=== PATIENT | female | born 1950 | race Caucasian/White ===

== ENCOUNTER → 2016-09-03 | Outpatient (REF) | payer MEDICAID ==
[~2016-09-03] MED LIST: CELE20TA PO; MOTR200T40 PO; NICO21PAT TD; TRAZ10TA PO; TYLE325C PO; VITMTA PO
[2016-09-03 12:24] LABS: ALBUMIN 3.7 GM/DL (3.2-5.2); ALBUMIN/GLOBULIN RATIO 1.06 (1.00-1.93); ALKALINE PHOSPHATASE 98 U/L (45-117); ALT/SGPT 24 U/L (12-78); AST/SGOT 15 U/L (15-37); BILIRUBIN,DIRECT 0.1 MG/DL (0.0-0.2); BILIRUBIN,TOTAL 0.6 MG/DL (0.2-1.0); CHOLESTEROL LEVEL 250 MG/DL (<200); TOTAL PROTEIN 7.2 GM/DL (6.4-8.2); TRIGLYCERIDES LEVEL 146 MG/DL (<150)
[2016-09-04 09:36] LABS: CONTROL LINE INT CTR LINE PRESENT; HIV SCRN NEGATIVE (NEGATIVE); HIV SCRN1 NEGATIVE (NEGATIVE)
[2016-09-04 09:52] LABS: HEP C VIRUS AB SCREEN MEDICARE < 0.0 INDEX (<0.8)
== END ==
LOC: M SFHCPLAZ 08:04
PROVIDERS: ATTEND Family Medicine
DX: Z11.4 Encounter for screening for human immunodeficiency virus [HIV] (principal); Z13.220 Encounter for screening for lipoid disorders; F10.10 Alcohol abuse, uncomplicated; Z11.59 Encounter for screening for other viral diseases

== ENCOUNTER → 2016-09-04 | Outpatient (CLI) | payer MEDICAID ==
--- NOTE | 2016-09-04 15:17 | REP ---
Clinical: Abnormal thyroid gland. Technique: Real time camara scale and color evaluation using linear high frequency transducer. Findings: The thyroid gland is diffusely heterogeneous. Right lobe measures 4.4 x 1.7 x 1.4 cm and includes few small cysts up to 4 mm as well as three complex nonspecific lower pole nodules measuring 9 mm, 6 mm, and 7 mm maximal diameter each. Left thyroid lobe measures 4.2 x 1.7 x 1.2 cm and includes 8 mm and 6 mm mid pole cysts with peripheral calcification as well as smaller nonspecific simple cysts and 5 mm nonspecific lower pole nodule. Impression: Heterogeneous thyroid gland with nonspecific bilateral nodules and cysts as detailed above. Correlation with thyroid function tests and nuclear medicine imaging may be warranted. Signed by Martin Yeager MD 09/04/2016 03:09 P
== END ==
LOC: M RAD 14:13
PROVIDERS: ATTEND Family Medicine
DX: R94.6 Abnormal results of thyroid function studies (principal)

== ENCOUNTER → 2016-09-06 | Outpatient (REF) | payer MEDICAID | LOC: M SFHCPLAZ 10:04 | PROVIDERS: ATTEND Family Medicine | DX: R93.8 Abnormal findings on diagnostic imaging of other specified body structures (principal); Z53.9 Procedure and treatment not carried out, unspecified reason ==

== ENCOUNTER → 2016-09-06 | Outpatient (CLI) | payer MEDICAID | LOC: M LAB 14:31 | PROVIDERS: ATTEND Family Medicine | DX: R93.8 Abnormal findings on diagnostic imaging of other specified body structures (principal) ==

== ENCOUNTER → 2016-09-10 | Outpatient (REF) | payer MEDICAID ==
[~2016-09-10] MED LIST changes: -MOTR200T40 PO; +MOTR200T44 PO
== END ==
LOC: M SFHCPLAZ 17:15
PROVIDERS: ATTEND Family Medicine
DX: Z12.4 Encounter for screening for malignant neoplasm of cervix (principal)

== ENCOUNTER → 2016-09-18 | Outpatient (CLI) | payer MEDICAID, OTHER ==
--- NOTE | 2016-09-18 17:46 | REP ---
Digital screening mammography with CAD: No comparison study. Findings: There is an asymmetric oval shaped density 11 mm in greatest diameter with smooth margins in the superior and medial quadrant of the left breast. This may be a normal lymph node within the breast but merits further evaluation. Scattered fibroglandular elements are noted which are otherwise symmetric. There are normal appearing lymph nodes in each axilla. No suspicious microcalcification is seen. No architectural distortion or mass lesion is seen elsewhere. Impression: BIRADS category 0 incomplete breast imaging. Asymmetric nodular density in the superior and medial quadrant of the left breast for which diagnostic left breast mammography and focused left breast sonography are recommended. BI-RADS/ACR category 0 mammogram, incomplete. Additional imaging and/or prior images are needed before a final assessment can be assigned. This mammogram was interpreted with the aid of an FDA-approved computer-aided detection system. The patient states she had a clinical breast exam in August 2016. The patient letter being requested is M0.
--- NOTE | 2016-09-20 09:19 | DEXA ---
AP SPINE L1 - L4 1.008 -1.5 0.1 LT FEMUR TOTAL 0.636 -3.0 -1.7 RT FEMUR TOTAL 0.637 -2.9 -1.7 TOTAL BODY TOTAL OTHER DUAL FEMUR FRAX* ASSESSMENT Risk factors: History of fracture (adult). Tobacco user. 10 year probability of fracture Major osteoporotic fracture 27.9 % Hip fracture 1.6 % COMMENTS: There is low bone density of the spine. There is osteoporosis of the hips. FOLLOW-UP: Recommendation for the next bone density exam: 2 years. [place]
== END ==
LOC: M WHC 13:11
PROVIDERS: ATTEND Family Medicine
DX: R92.2 Inconclusive mammogram (principal); M85.88 Other specified disorders of bone density and structure, other site; M81.0 Age-related osteoporosis without current pathological fracture; Z87.81 Personal history of (healed) traumatic fracture; Z72.0 Tobacco use; Z13.820 Encounter for screening for osteoporosis; Z12.31 Encounter for screening mammogram for malignant neoplasm of breast

== ENCOUNTER → 2016-09-20 | Outpatient (CLI) | payer MEDICAID ==
[~2016-09-20] MED LIST changes: +LIDOCAINE 1% MDV 20ML VIAL As Ordered ONE
--- NOTE | 2016-09-20 14:57 | REP ---
ULTRASOUND GUIDED BILATERAL THYROID BIOPSY: The procedure was performed under the direct supervision of Dr. Vargas. The risks and benefits of the procedure were explained to the patient and informed consent was obtained. The right thyroid was addressed first. The right thyroid nodule was localized using ultrasound guidance. The skin was prepped and draped in a sterile fashion. 1% Xylocaine was used as a local anesthetic. Using ultrasound guidance four fine needle aspirations were obtained using 25 gauge needles. The left thyroid was then addressed. The left thyroid nodule was localized using ultrasound guidance. The skin was prepped and draped in a sterile fashion. 1% Xylocaine was used as a local anesthetic. Using ultrasound guidance four fine needle aspirations were obtained using 25 gauge needles. The patient tolerated the procedure well and there were no immediate complications. After the appropriate amount of monitored convalescences the patient was discharged from the department. Reviewed by MARCO Raymond 09/20/2016 03:45 PEdited and Signed by Mandeep Vargas MD 09/20/2016 03:48 P
== END ==
LOC: M RADPRO 10:31
PROVIDERS: ATTEND Family Medicine
DX: E04.1 Nontoxic single thyroid nodule (principal); E78.5 Hyperlipidemia, unspecified; Z79.899 Other long term (current) drug therapy

== ENCOUNTER → 2016-09-27 | Outpatient (CLI) | payer MEDICAID, OTHER ==
[~2016-09-27] MED LIST changes: -LIDOCAINE 1% MDV 20ML VIAL As Ordered ONE
--- NOTE | 2016-09-27 14:02 | REP ---
Digital diagnostic unilateral left breast mammogram and focused left breast sonography: Findings: Screening mammography September 18, 2016 was BIRADS category 0 because of an asymmetric nodular density in the superomedial quadrant for which diagnostic imaging was recommended. Mammographic findings: Magnified focal spot compression CC, MLO and true ML views of the left breast confirm the presence of a 1.1 cm oval shaped well-circumscribed nodule in the superomedial quadrant. This is near a blood vessel and may be a lymph node. No other mammographic finding. Sonographic findings: Focused left breast sonography is performed in the superior medial quadrant from 9 o'clock to 12 o'clock. 10 o'clock, there is a small cyst 4.5 cm from the nipple measuring 0.3 x 0.2 x 0.2 cm. At 11 o'clock there is a 1.0 x 0.5 x 0.8 cm complex cyst 5.4 cm from the nipple. This is felt to account for the mammographic opacity. There are internal echoes and there is no enhanced through transmission thus the lesion does not meet criteria for simple cyst. No internal Doppler flow could be seen. Impression: BIRADS category IV suspicious left breast imaging. Complex hypoechoic lesion seen sonographically corresponding to the mammographic opacity in the superomedial quadrant of the left breast. Ultrasound guided needle biopsy and marker clip placement with post clip placement mammographic views recommended. This mammogram was interpreted with the aid of an FDA-approved computer-aided detection system. The patient states she/he had a clinical breast exam in August 2016. The patient letter being requested is M4. Signed by Mandeep Vargas MD 09/27/2016 07:27 P
== END ==
LOC: M RAD 11:31
PROVIDERS: ATTEND Family Medicine
DX: R92.8 Other abnormal and inconclusive findings on diagnostic imaging of breast (principal)

== ENCOUNTER → 2016-10-10 | Outpatient (CLI) | payer OTHER ==
[~2016-10-10] MED LIST changes: +ASCO25TA PO; +ATOR1TAB18 PO; +CALC600T21 PO; +LIDOCAINE 1% MDV 20ML VIAL As Ordered ONE; +NATU400T PO; +PROL60SO SC; +VITA100037 PO
--- NOTE | 2016-10-10 14:01 | REP ---
POSTBIOPSY MAMMOGRAM LEFT BREAST: Postbiopsy mammogram of the left breast performed. Patient had an ultrasound guided biopsy of a complex nodule in the upper inner left breast. A metallic clip is seen at the site of the nodule and the nodule is no longer visualized. Signed by Marlon Romano MD 10/11/2016 06:27 P
--- NOTE | 2016-10-10 16:59 | REP ---
ULTRASOUND GUIDED LEFT BREAST BIOPSY: The procedure was performed under the direct supervision of Dr. Romano. The patient has a history of a complex hypoechoic lesion in the 11-o'clock position of the left breast seen on previous ultrasound dated 09/27/2016. The risks and benefits of the procedure were explained to the patient and informed consent was obtained. The left breast nodule was localized using ultrasound guidance. The skin was prepped and draped in a sterile fashion. 1% Xylocaine was used as a local anesthetic. Using ultrasound guidance a 13-gauge suction-assisted Mammotome needle was inserted and 5 core biopsy samples were obtained and sent to the lab. A marker clip was placed at the biopsy site. The patient tolerated the procedure well and there were no immediate complications. After the appropriate amount of monitored convalescence the patient was discharged from the department. Reviewed by MARCO Raymond 10/10/2016 05:18 PEdited and Signed by Marlon Romano MD 10/11/2016 06:27 P
== END ==
LOC: M RADPRO 12:31
PROVIDERS: ATTEND Family Medicine
DX: D24.2 Benign neoplasm of left breast (principal)
CPT/HCPCS: 19083; 88305; G0206

== ENCOUNTER → 2016-10-17 | Outpatient (CLI) | payer OTHER ==
[~2016-10-17] VITALS: Ht 160 cm; Wt 63.0 kg
[~2016-10-17] MED LIST changes: -LIDOCAINE 1% MDV 20ML VIAL As Ordered ONE; +LIDOCAINE 2% INJ 100 MG/5 ML SDV (FOR ANES.) As Ordered ONE; +NS 1,000 ML IV SCH; +PROPOFOL 500 MG/50 ML VIAL As Ordered ONE
--- NOTE | 2016-10-17 13:50 | ROOR ---
Patient Name: Hilary Vidal Procedure Date: 10/17/2016 1:06 PM Date of : 1950 Age: 66 Room: [facility] Gender: Female Note Status: Finalized Procedure: Colonoscopy Indications: Screening for colorectal malignant neoplasm Providers: Rich Rangel Jr, MD Referring MD: BLAISE MICHAEL MD Requesting Provider: Medicines: Propofol per Anesthesia Complications: No immediate complications. Procedure: Pre-Anesthesia Assessment: - Prior to the procedure, a History and Physical was performed, and patient medications and allergies were reviewed. The patient is competent. The risks and benefits of the procedure and the sedation options and risks were discussed with the patient. All questions were answered and informed consent was obtained. Patient identification and proposed procedure were verified by the physician and the nurse in the pre-procedure area and in the procedure room. Mental Status Examination: alert and oriented. Airway Examination: normal oropharyngeal airway and neck mobility. Respiratory Examination: clear to auscultation. CV Examination: normal. ASA Grade Assessment: II - A patient with mild systemic disease. After reviewing the risks and benefits, the patient was deemed in satisfactory condition to undergo the procedure. The anesthesia plan was to use moderate sedation / analgesia (conscious sedation). Immediately prior to administration of medications, the patient was re-assessed for adequacy to receive sedatives. The heart rate, respiratory rate, oxygen saturations, blood pressure, adequacy of pulmonary ventilation, and response to care were monitored throughout the procedure. The physical status of the patient was re-assessed after the procedure. The Colonoscope was introduced through the anus and advanced to the cecum, identified by appendiceal orifice and ileocecal valve. The colonoscopy was performed without difficulty. The patient tolerated the procedure well. The quality of the bowel preparation was adequate and good. Findings: The perianal exam findings include non-thrombosed internal hemorrhoids, internal hemorrhoids that prolapse with straining, but spontaneously regress to the resting position (Grade II) and internal hemorrhoids that prolapse with straining, but require manual replacement into the anal canal (Grade III). Many small and large-mouthed diverticula were found in the sigmoid colon. Multiple small and large-mouthed diverticula were found in the ascending colon and cecum. The rectum, descending colon and transverse colon appeared normal. A medium polyp was found in the recto-sigmoid colon. The polyp was removed with a hot snare. Resection and retrieval were complete. Two sessile polyps were found in the cecum. The polyps were medium in size. These polyps were removed with a hot snare. Polyp resection was incomplete, and the resected tissue was partially retrieved. Impression: - Non-thrombosed internal hemorrhoids, internal hemorrhoids that prolapse with straining, but spontaneously regress to the resting position (Grade II) and internal hemorrhoids that prolapse with straining, but require manual replacement into the anal canal (Grade III) found on perianal exam. - Diverticulosis in the sigmoid colon. - Diverticulosis in the ascending colon and in the cecum. - The rectum, descending colon and transverse colon are normal. - One medium polyp at the recto-sigmoid colon, removed with a hot snare. Resected and retrieved. - Two medium polyps in the cecum, removed with a hot snare. Polyp resection was incomplete, and the resected tissue was partially retrieved. Recommendation: - Discharge patient to home (ambulatory). - Return to my office in 1 week. Rich Rangel MD Rich Rangel Jr, MD 10/17/2016 1:50:04 PM This report has been signed electronically. Number of Addenda: 0 Note Initiated On: 10/17/2016 1:06 PM Estimated Blood Loss: Estimated blood loss: none.
[2016-10-17 14:10] VITALS: BP 138/78
== END | disposition home or self-care (01) ==
LOC: M OPP 12:29
PROVIDERS: ATTEND Surgery
DX: Z12.11 Encounter for screening for malignant neoplasm of colon (principal); K64.8 Other hemorrhoids; K64.1 Second degree hemorrhoids; K64.2 Third degree hemorrhoids; K57.30 Diverticulosis of large intestine without perforation or abscess without bleeding; D12.7 Benign neoplasm of rectosigmoid junction; D12.0 Benign neoplasm of cecum; E78.00 Pure hypercholesterolemia, unspecified; M19.90 Unspecified osteoarthritis, unspecified site; F41.9 Anxiety disorder, unspecified; F33.9 Major depressive disorder, recurrent, unspecified; F17.200 Nicotine dependence, unspecified, uncomplicated; F17.228 Nicotine dependence, chewing tobacco, with other nicotine-induced disorders; M81.0 Age-related osteoporosis without current pathological fracture; R06.83 Snoring; Z97.2 Presence of dental prosthetic device (complete) (partial); Z79.899 Other long term (current) drug therapy

== ENCOUNTER → 2016-12-16 | Day surgery (SDC) | payer OTHER ==
[~2016-12-16] VITALS: Ht 160 cm; Wt 66.7 kg
[~2016-12-16] MED LIST changes: +ACETAMINOPHEN 325 MG TAB PO PRN; +AcetaZOLAMIDE 500 MG ER CAP PO ONE; +BSS with VANC/TOB/EPI for EYE CASES IR ONE; +CYCLOPENTOLATE 2% OPHTH SOLN As Ordered ONE; +CYCLOPENTOLATE 2% OPHTH SOLN XX ONE; +D5W/0.2% SODIUM CHLORIDE 250 ML IV SCH; +HEALON DUET (HEALON 10MG/ML 0.55ML & HEALON ENDOCOAT 30MG/ML 0.85ML) As Ordered ONE; +KETOROLAC 0.5% OPHTH SOLN OD ONE; +LIDOCAINE 1% SDV 5 ML VIAL As Ordered ONE; -LIDOCAINE 2% INJ 100 MG/5 ML SDV (FOR ANES.) As Ordered ONE; +LIDOCAINE 4% INJ 5 ML AMP OU ONE; +MIDAZOLAM INJ 2 MG/2 ML VIAL (J2250) As Ordered ONE; +MOXIFLOXACIN IN BSS 0.25MG/0.25ML INTRACAMERAL INJ (OR EYE ONLY)(J2280) As Ordered ONE; -NS 1,000 ML IV SCH; +OFLOXACIN 0.3 % (OCUFLOX) OPTH SOL 5ML As Ordered ONE; +OFLOXACIN 0.3 % (OCUFLOX) OPTH SOL 5ML XX ONE; +PHENYLEPHRINE 2.5% OPHTH SOL 2ML As Ordered ONE; +PHENYLEPHRINE 2.5% OPHTH SOL 2ML XX ONE; +POVIDONE-IODINE 5% OPHTH PREP SOL 30ML As Ordered ONE; +PROPARACAINE 0.5% OPHTH SOL 15ML OD PRN; -PROPOFOL 500 MG/50 ML VIAL As Ordered ONE; +TRIAMCINOLONE PRES FR 40 MG/ML 1ML(TRIESENCE)(OR EYE ONLY)(J3300 PER 1MG) As Ordered ONE; +TRIMETHOBENZAMIDE 300 MG CAP PO PRN; +TROPICAMIDE 1% OPHTH SOLN 2 ML As Ordered ONE; +TROPICAMIDE 1% OPHTH SOLN 2 ML XX ONE; +fentaNYL 100 MCG/2 ML INJECTION (J3010) As Ordered ONE
--- NOTE | 2016-12-16 10:45 | RO ---
DATE OF PROCEDURE: 12/16/2016 PREPROCEDURE DIAGNOSES: Cataract and myosis right eye. POSTPROCEDURE DIAGNOSES: Cataract and myosis right eye. PROCEDURE: Phacoemulsification with Malyugin ring placement for myosis. Intraocular lens (IOL) power used PCB 00 20.5 diopters. SURGEON: Zeyad Avila MD OFFICE MACHINE SERVICER: None. COMPLICATIONS: None. ANESTHESIA: DESCRIPTION OF PROCEDURE: Procedure in detail: The patient was brought to the operating room, laid in supine position. The eye was prepped and draped in a sterile fashion for ophthalmic surgery, and a lid speculum was placed in the right eye. A sideport incision was made, and EndoCoat was injected into the anterior chamber. A temporal clear corneal incision was made with a 2.4 mm keratome, followed by with the placement of the Malyugin ring to dilate the pupil. After this was done, capsulorrhexis was carried out for hydrodissection. Phacoemulsification was then done in a [id number] method within the capsular bag, followed by aspiration of the cortical material. Healon was then placed in the capsular bag and intraocular lens placed within it. The Malyugin ring was then removed with the help of the introducer without any complications. Excess viscoelastic was aspirated. The wound was hydrated, and intracanal moxifloxacin was given, followed by sub-Tenon Kenalog injection. Lid speculum removed. The patient returned to the recovery room in stable condition.
[2016-12-16 11:15] VITALS: BP 152/80
== END | disposition home or self-care (01) ==
LOC: M SDC 08:04
PROVIDERS: ATTEND Ophthalmology
DX: H25.9 Unspecified age-related cataract (principal); H57.03 Miosis; E78.5 Hyperlipidemia, unspecified; E03.9 Hypothyroidism, unspecified; F41.9 Anxiety disorder, unspecified; F17.210 Nicotine dependence, cigarettes, uncomplicated; Z79.899 Other long term (current) drug therapy
CPT/HCPCS: 66982; J2250; J2280; J3010; J3300

== ENCOUNTER → 2017-01-13 | Day surgery (SDC) | payer OTHER ==
[~2017-01-13] VITALS: Ht 160 cm; Wt 66.7 kg
[~2017-01-13] MED LIST changes: +CYCLOPENTOLATE 2% OPHTH SOLN 2ML BTL OS ONE; -CYCLOPENTOLATE 2% OPHTH SOLN As Ordered ONE; -CYCLOPENTOLATE 2% OPHTH SOLN XX ONE; +D5W/0.2% SODIUM CHLORIDE 250 ML IV ONE; -D5W/0.2% SODIUM CHLORIDE 250 ML IV SCH; -KETOROLAC 0.5% OPHTH SOLN OD ONE; +KETOROLAC 0.5% OPHTH SOLN OS ONE; -OFLOXACIN 0.3 % (OCUFLOX) OPTH SOL 5ML As Ordered ONE; +OFLOXACIN 0.3 % (OCUFLOX) OPTH SOL 5ML OS ONE; -OFLOXACIN 0.3 % (OCUFLOX) OPTH SOL 5ML XX ONE; -PHENYLEPHRINE 2.5% OPHTH SOL 2ML As Ordered ONE; +PHENYLEPHRINE 2.5% OPHTH SOL 2ML OS ONE; -PHENYLEPHRINE 2.5% OPHTH SOL 2ML XX ONE; -PROPARACAINE 0.5% OPHTH SOL 15ML OD PRN; +PROPARACAINE 0.5% OPHTH SOL 15ML OS PRN; -TROPICAMIDE 1% OPHTH SOLN 2 ML As Ordered ONE; -TROPICAMIDE 1% OPHTH SOLN 2 ML XX ONE; +TROPICAMIDE 1% OPHTH SOLN 2ML OD ONE
[2017-01-13 11:00] VITALS: BP 116/78
--- NOTE | 2017-01-21 21:53 | RO ---
DATE OF PROCEDURE: 01/13/2017 PREPROCEDURE DIAGNOSIS: Cataract, left eye. POSTPROCEDURE DIAGNOSIS: Cataract, left eye. PROCEDURE: Phacoemulsification with intraocular lens implantation, intraocular lens power was PCB00, 21.5 diopters. SURGEON: Zeyad Avila MD PUMPING STATION SUPERVISOR: ANESTHESIA: DESCRIPTION OF PROCEDURE: The patient was brought to the operating room and laid in supine position, the eye was prepped and draped in a sterile fashion for ophthalmic surgery and a lid speculum was placed in the left eye. Sideport incision was made and EndoCoat was injected into the anterior chamber. Temporal clear corneal incision was then made with a 2.5 mm keratome followed by capsulorrhexis. This was followed by hydrodissection and phacoemulsification in a divide and conquer method. Excess cortical material was then aspirated using irrigation and aspiration cannula. Healon was then placed in the capsular bag followed by placement of the intraocular lens. Excess viscoelastic was aspirated, wound was hydrated, intracameral moxifloxacin was given and sub-Tenon injection of Kenalog was given. The patient returned to the recovery room in stable condition.
== END | disposition home or self-care (01) ==
LOC: M SDC 08:13
PROVIDERS: ATTEND Ophthalmology
DX: H26.9 Unspecified cataract (principal); E03.9 Hypothyroidism, unspecified; E78.5 Hyperlipidemia, unspecified; F41.9 Anxiety disorder, unspecified; F32.9 Major depressive disorder, single episode, unspecified; F17.210 Nicotine dependence, cigarettes, uncomplicated; Z79.899 Other long term (current) drug therapy
CPT/HCPCS: 66984; J2250; J2280; J3010; J3300

== ENCOUNTER 2017-01-17 23:37 | Emergency (ER) | payer OTHER ==
[~2017-01-17] VITALS: Ht 157.5 cm; Wt 64.4 kg
[~2017-01-17 23:37] MED LIST changes: -ACETAMINOPHEN 325 MG TAB PO PRN; -AcetaZOLAMIDE 500 MG ER CAP PO ONE; -BSS with VANC/TOB/EPI for EYE CASES IR ONE; -CYCLOPENTOLATE 2% OPHTH SOLN 2ML BTL OS ONE; -D5W/0.2% SODIUM CHLORIDE 250 ML IV ONE; -HEALON DUET (HEALON 10MG/ML 0.55ML & HEALON ENDOCOAT 30MG/ML 0.85ML) As Ordered ONE; -KETOROLAC 0.5% OPHTH SOLN OS ONE; -LIDOCAINE 1% SDV 5 ML VIAL As Ordered ONE; -LIDOCAINE 4% INJ 5 ML AMP OU ONE; -MIDAZOLAM INJ 2 MG/2 ML VIAL (J2250) As Ordered ONE; -MOXIFLOXACIN IN BSS 0.25MG/0.25ML INTRACAMERAL INJ (OR EYE ONLY)(J2280) As Ordered ONE; -OFLOXACIN 0.3 % (OCUFLOX) OPTH SOL 5ML OS ONE; -PHENYLEPHRINE 2.5% OPHTH SOL 2ML OS ONE; -POVIDONE-IODINE 5% OPHTH PREP SOL 30ML As Ordered ONE; -PROPARACAINE 0.5% OPHTH SOL 15ML OS PRN; -TRIAMCINOLONE PRES FR 40 MG/ML 1ML(TRIESENCE)(OR EYE ONLY)(J3300 PER 1MG) As Ordered ONE; -TRIMETHOBENZAMIDE 300 MG CAP PO PRN; -TROPICAMIDE 1% OPHTH SOLN 2ML OD ONE; -fentaNYL 100 MCG/2 ML INJECTION (J3010) As Ordered ONE
[2017-01-18 00:37] LABS: MEAN CORPUSCULAR HEMOGLOBIN 31.9 pg (27.0-33.0); MEAN CORPUSCULAR HGB CONC 33.3 g/dl (32.0-36.5); MEAN CORPUSCULAR VOLUME 95.8 fl (80.0-96.0); RED CELL DISTRIBUTION WIDTH 12.2 % (11.5-14.5); WHITE BLOOD COUNT 7.8 K/mm3 (4.0-10.0)
[2017-01-18 01:01] LABS: METHADONE URINE NEGATIVE (NEGATIVE)
[2017-01-18 01:15] LABS: ALBUMIN 4.1 GM/DL (3.2-5.2); ALKALINE PHOSPHATASE 87 U/L (45-117); ALT/SGPT 26 U/L (12-78); ANION GAP 9 MEQ/L (8-16); AST/SGOT 18 U/L (15-37); BILIRUBIN,DIRECT 0.2 MG/DL (0.0-0.2); BILIRUBIN,TOTAL 0.4 MG/DL (0.2-1.0); BLOOD UREA NITROGEN 9 MG/DL (7-18); CALCIUM LEVEL 8.2 MG/DL (8.8-10.2); CARBON DIOXIDE LEVEL 26 MEQ/L (21-32); CHLORIDE LEVEL 108 MEQ/L (98-107); CREATININE FOR GFR 0.67 MG/DL (0.55-1.02); GLOMERULAR FILTRATION RATE > 60.0 (>45); GLUCOSE, FASTING 104 MG/DL (80-110); POTASSIUM SERUM 3.9 MEQ/L (3.5-5.1); SODIUM LEVEL 143 MEQ/L (136-145); TOTAL PROTEIN 8.2 GM/DL (6.4-8.2)
[2017-01-18] MEDS ORDERED: TETRACAINE 0.5% OPHTH SOLN 4ML OS ONE (02:30)
[2017-01-18] MEDS ORDERED: FLUORESCEIN OPHTH 1 MG STRIP As Ordered ONE (03:47)
[2017-01-18] MEDS ORDERED: PHENYLEPHRINE 2.5% OPHTH SOL 2ML OU ONE (04:15)
[2017-01-18] MEDS ORDERED: TROPICAMIDE 1% OPHTH SOLN 2ML OU ONE (04:15)
[2017-01-18] MEDS ORDERED: FLUORESCEIN OPHTH 1 MG STRIP OU ONE (04:15)
[2017-01-18] MEDS ORDERED: prednisoLONE ACET 1% OPHTH SUSP 5ML OS SCH (06:00)
[2017-01-18] MEDS ORDERED: TOBRAMYCIN 0.3% OPHTH SOLN 5 ML OS SCH (06:00)
[2017-01-18] MEDS ORDERED: KETOROLAC 0.5% OPHTH SOLN OS SCH (06:00)
[2017-01-18 06:25] VITALS: BP 149/84
== END 2017-01-18 06:27 | disposition home or self-care (01) ==
LOC: M ED 01-18 05:38
DX: H20.019 Primary iridocyclitis, unspecified eye (principal); F10.129 Alcohol abuse with intoxication, unspecified; Z98.49 Cataract extraction status, unspecified eye; F32.9 Major depressive disorder, single episode, unspecified; E78.5 Hyperlipidemia, unspecified; F17.200 Nicotine dependence, unspecified, uncomplicated; Z79.899 Other long term (current) drug therapy

== ENCOUNTER 2018-05-29 21:01 | Emergency (ER) | payer MEDICARE, MEDICAID, OTHER ==
[2018-05-29 21:14] LABS: BEDSIDE GLUCOSE 104 MG/DL (80-115)
[2018-05-29] MEDS: PHENobarbital 30 MG TAB PO (21:25)
== END 2018-05-29 23:08 | disposition home or self-care (01) ==
LOC: M ED 21:01
DX: F10.239 Alcohol dependence with withdrawal, unspecified (principal); F17.200 Nicotine dependence, unspecified, uncomplicated
CPT/HCPCS: 99284

== ENCOUNTER 2019-01-01 14:26 | Emergency (ER) | payer MEDICARE, MEDICAID ==
[~2019-01-01] VITALS: Ht 160 cm; Wt 72.4 kg
[~2019-01-01 14:26] MED LIST changes: -ASCO25TA PO; -ATOR1TAB18 PO; +ATOR80TA59 PO; -CALC600T21 PO; +CALC600T60 PO; -VITA100037 PO; +VITA100067 PO; +VITA1TAB23 PO
[2019-01-01] MEDS ORDERED: CITA20TA6 (14:43)
[2019-01-01] MEDS ORDERED: OYST500T11 PO (14:43)
[2019-01-01] MEDS ORDERED: VENL50TA2 (14:43)
[2019-01-01] MEDS ORDERED: OYST500T12 (14:43)
[2019-01-01 15:25] LABS: HEMATOCRIT 41.7 % (36.0-47.0); HEMOGLOBIN 13.8 g/dl (12.0-15.5); MEAN CORPUSCULAR HEMOGLOBIN 31.7 pg (27.0-33.0); MEAN CORPUSCULAR HGB CONC 33.1 g/dl (32.0-36.5); MEAN CORPUSCULAR VOLUME 95.6 fl (80.0-96.0); PLATELET COUNT, AUTOMATED 297 10^3/uL (150-450); RED BLOOD COUNT 4.36 10^6/uL (4.00-5.40); WHITE BLOOD COUNT 4.8 10^3/uL (4.0-10.0)
[2019-01-01 15:50] LABS: AMPHETAMINES LEVEL URINE NEGATIVE (NEGATIVE); BARBITURATES URINE NEGATIVE (NEGATIVE); BENZODIAZEPINES URINE NEGATIVE (NEGATIVE); CANNABINOIDS URINE NEGATIVE (NEGATIVE); COCAINE METABOLITE URINE NEGATIVE (NEGATIVE); METHADONE URINE NEGATIVE (NEGATIVE); OPIATES URINE NEGATIVE (NEGATIVE); PHENCYCLIDINE URINE NEGATIVE (NEGATIVE)
[2019-01-01 16:01] LABS: ACETAMINOPHEN LEVEL < 2.0 UG/ML (10.0-30.0); ALBUMIN 3.7 GM/DL (3.2-5.2); ALT/SGPT 45 U/L (12-78); BILIRUBIN,DIRECT < 0.1 MG/DL (0.0-0.2); BILIRUBIN,TOTAL 0.3 MG/DL (0.2-1.0); BLOOD UREA NITROGEN 10 MG/DL (7-18); CALCIUM LEVEL 7.8 MG/DL (8.8-10.2); CARBON DIOXIDE LEVEL 31 MEQ/L (21-32); CHLORIDE LEVEL 106 MEQ/L (98-107); CREATININE FOR GFR 0.66 MG/DL (0.55-1.30); ETHYL ALCOHOL (ETHANOL) 0.312 % (0.000-0.010); GLOMERULAR FILTRATION RATE > 60.0 (>45); GLUCOSE, FASTING 96 MG/DL (70-100); POTASSIUM SERUM 4.3 MEQ/L (3.5-5.1); SALICYLATE LEVEL < 1.7 MG/DL (5.0-30.0); SODIUM LEVEL 142 MEQ/L (136-145); TOTAL PROTEIN 7.6 GM/DL (6.4-8.2)
[2019-01-01] MEDS ORDERED: ONDANSETRON 4 MG ORAL DISINTEGRATING TAB (Q0162 PER 1MG) PO ONE (21:30)
[2019-01-02] MEDS ORDERED: METOCLOPRAMIDE 10 MG TAB PO ONE (01:15)
[2019-01-02] MEDS ORDERED: PHENobarbital 30 MG TAB PO ONE (01:15)
[2019-01-02 02:26] VITALS: BP 159/99
== END 2019-01-02 03:22 | disposition home or self-care (01) ==
LOC: M ED 14:26
DX: F10.129 Alcohol abuse with intoxication, unspecified (principal); F33.9 Major depressive disorder, recurrent, unspecified; F41.9 Anxiety disorder, unspecified; Z79.899 Other long term (current) drug therapy; Z87.891 Personal history of nicotine dependence
CPT/HCPCS: 80048; 80076; 80307; 84443; 85027; 99284; G0480; Q0162

== ENCOUNTER 2019-03-29 13:10 | Emergency (ER) | payer MEDICARE, MEDICAID ==
[~2019-03-29] VITALS: Ht 160 cm; Wt 65.9 kg
[~2019-03-29 13:10] MED LIST changes: +CITA20TA6; +OYST500T11 PO; +OYST500T12; +VENL50TA2
[2019-03-29] MEDS ORDERED: LORazepam 2 MG/ML VIAL (J2060) IM STA (13:53)
[2019-03-29] MEDS ORDERED: diphenhydrAMINE INJ 50MG/ML VIAL (J1200) IM ONE (14:00)
[2019-03-29 14:36] LABS: HEMATOCRIT 43.4 % (36.0-47.0); HEMOGLOBIN 14.6 g/dl (12.0-15.5); MEAN CORPUSCULAR HEMOGLOBIN 32.2 pg (27.0-33.0); MEAN CORPUSCULAR HGB CONC 33.6 g/dl (32.0-36.5); MEAN CORPUSCULAR VOLUME 95.6 fl (80.0-96.0); PLATELET COUNT, AUTOMATED 318 10^3/uL (150-450); RED BLOOD COUNT 4.54 10^6/uL (4.00-5.40); WHITE BLOOD COUNT 4.7 10^3/uL (4.0-10.0)
[2019-03-29 14:38] LABS: AMPHETAMINES LEVEL URINE NEGATIVE (NEGATIVE); BARBITURATES URINE NEGATIVE (NEGATIVE); BENZODIAZEPINES URINE NEGATIVE (NEGATIVE); CANNABINOIDS URINE NEGATIVE (NEGATIVE); COCAINE METABOLITE URINE NEGATIVE (NEGATIVE)
[2019-03-29 14:39] LABS: METHADONE URINE NEGATIVE (NEGATIVE); OPIATES URINE NEGATIVE (NEGATIVE); PHENCYCLIDINE URINE NEGATIVE (NEGATIVE)
[2019-03-29 15:03] LABS: HCG, SERUM QUALITATIVE NEGATIVE (NEGATIVE)
[2019-03-29 15:09] LABS: ACETAMINOPHEN LEVEL < 2.0 UG/ML (10.0-30.0); ALBUMIN 3.8 GM/DL (3.2-5.2); ALT/SGPT 35 U/L (12-78); BILIRUBIN,DIRECT 0.1 MG/DL (0.0-0.2); BILIRUBIN,TOTAL 0.4 MG/DL (0.2-1.0); BLOOD UREA NITROGEN 13 MG/DL (7-18); CALCIUM LEVEL 8.9 MG/DL (8.8-10.2); CARBON DIOXIDE LEVEL 28 MEQ/L (21-32); CHLORIDE LEVEL 108 MEQ/L (98-107); CREATININE FOR GFR 0.63 MG/DL (0.55-1.30); ETHYL ALCOHOL (ETHANOL) 0.283 % (0.000-0.010); GLOMERULAR FILTRATION RATE > 60.0 (>45); GLUCOSE, FASTING 80 MG/DL (70-100); POTASSIUM SERUM 4.2 MEQ/L (3.5-5.1); SODIUM LEVEL 142 MEQ/L (136-145); THYROID STIMULATING HORMONE 0.642 uIU/ML (0.358-3.740); TOTAL PROTEIN 7.3 GM/DL (6.4-8.2)
[2019-03-30 00:35] VITALS: BP 158/78
== END 2019-03-30 01:35 | disposition home or self-care (01) ==
LOC: M ED 13:10
DX: F10.129 Alcohol abuse with intoxication, unspecified (principal); F10.10 Alcohol abuse, uncomplicated; I10 Essential (primary) hypertension; Z72.0 Tobacco use; Z79.899 Other long term (current) drug therapy
CPT/HCPCS: 80048; 80076; 80307; 84443; 84703; 85027; 96372; 99284; G0480; J1200; J2060

== ENCOUNTER 2019-05-14 10:38 | Emergency (ER) | payer MEDICARE, MEDICAID ==
[~2019-05-14] VITALS: Ht 160 cm; Wt 68.2 kg
[2019-05-14 11:32] LABS: HEMATOCRIT 44.2 % (36.0-47.0); HEMOGLOBIN 14.9 g/dl (12.0-15.5); MEAN CORPUSCULAR HEMOGLOBIN 32.9 pg (27.0-33.0); MEAN CORPUSCULAR HGB CONC 33.7 g/dl (32.0-36.5); MEAN CORPUSCULAR VOLUME 97.6 fl (80.0-96.0); PLATELET COUNT, AUTOMATED 392 10^3/uL (150-450); RED BLOOD COUNT 4.53 10^6/uL (4.00-5.40); WHITE BLOOD COUNT 5.3 10^3/uL (4.0-10.0)
[2019-05-14 12:01] LABS: AMPHETAMINES LEVEL URINE NEGATIVE (NEGATIVE); BARBITURATES URINE NEGATIVE (NEGATIVE); BENZODIAZEPINES URINE NEGATIVE (NEGATIVE); CANNABINOIDS URINE NEGATIVE (NEGATIVE); COCAINE METABOLITE URINE NEGATIVE (NEGATIVE); METHADONE URINE NEGATIVE (NEGATIVE); OPIATES URINE NEGATIVE (NEGATIVE); PHENCYCLIDINE URINE NEGATIVE (NEGATIVE)
[2019-05-14 12:11] LABS: ACETAMINOPHEN LEVEL < 2.0 UG/ML (10.0-30.0); ALBUMIN 3.7 GM/DL (3.2-5.2); ALT/SGPT 50 U/L (12-78); BILIRUBIN,DIRECT 0.2 MG/DL (0.0-0.2); BILIRUBIN,TOTAL 0.4 MG/DL (0.2-1.0); BLOOD UREA NITROGEN 9 MG/DL (7-18); CALCIUM LEVEL 8.3 MG/DL (8.8-10.2); CARBON DIOXIDE LEVEL 21 MEQ/L (21-32); CHLORIDE LEVEL 103 MEQ/L (98-107); ETHYL ALCOHOL (ETHANOL) 0.298 % (0.000-0.010); GLOMERULAR FILTRATION RATE > 60.0 (>45); GLUCOSE, FASTING 87 MG/DL (70-100); POTASSIUM SERUM 4.2 MEQ/L (3.5-5.1); SALICYLATE LEVEL 5.9 MG/DL (5.0-30.0); SODIUM LEVEL 138 MEQ/L (136-145); THYROID STIMULATING HORMONE 0.864 uIU/ML (0.358-3.740); TOTAL PROTEIN 7.2 GM/DL (6.4-8.2)
[2019-05-14] MEDS ORDERED: OXAZEPAM 15 MG CAP PO ONE ×2 (15:00→20:45)
[2019-05-14] MEDS ORDERED: LORazepam 2 MG/ML VIAL (J2060) IM STA (20:41)
[2019-05-14] MEDS ORDERED: ONDANSETRON 4 MG ORAL DISINTEGRATING TAB (Q0162 PER 1MG) PO ONE (20:45)
[2019-05-14 22:44] VITALS: BP 135/75
== END 2019-05-14 22:51 | disposition home or self-care (01) ==
LOC: M ED 10:38
DX: F10.129 Alcohol abuse with intoxication, unspecified (principal); E07.9 Disorder of thyroid, unspecified; E78.9 Disorder of lipoprotein metabolism, unspecified; Z79.899 Other long term (current) drug therapy; F17.210 Nicotine dependence, cigarettes, uncomplicated
CPT/HCPCS: 36415; 80048; 80076; 80307; 84443; 85027; 96372; 99284; G0480; J2060; Q0162

== ENCOUNTER 2019-06-26 11:54 | Emergency (ER) | payer MEDICARE, MEDICAID ==
[~2019-06-26] VITALS: Ht 157.5 cm; Wt 79.5 kg
[2019-06-26 12:35] LABS: HEMATOCRIT 44.4 % (36.0-47.0); HEMOGLOBIN 14.9 g/dl (12.0-15.5); MEAN CORPUSCULAR HEMOGLOBIN 33.3 pg (27.0-33.0); MEAN CORPUSCULAR HGB CONC 33.6 g/dl (32.0-36.5); MEAN CORPUSCULAR VOLUME 99.1 fl (80.0-96.0); PLATELET COUNT, AUTOMATED 424 10^3/uL (150-450); RED BLOOD COUNT 4.48 10^6/uL (4.00-5.40); WHITE BLOOD COUNT 3.9 10^3/uL (4.0-10.0)
[2019-06-26] MEDS ORDERED: HYDR-3363 PO (13:02)
[2019-06-26 13:22] LABS: ACETAMINOPHEN LEVEL < 2.0 UG/ML (10.0-30.0); ALBUMIN 3.5 GM/DL (3.2-5.2); ALT/SGPT 56 U/L (12-78); BILIRUBIN,DIRECT < 0.1 MG/DL (0.0-0.2); BILIRUBIN,TOTAL 0.2 MG/DL (0.2-1.0); BLOOD UREA NITROGEN 10 MG/DL (7-18); CALCIUM LEVEL 8.3 MG/DL (8.8-10.2); CARBON DIOXIDE LEVEL 27 MEQ/L (21-32); CHLORIDE LEVEL 110 MEQ/L (98-107); CREATININE FOR GFR 0.62 MG/DL (0.55-1.30); ETHYL ALCOHOL (ETHANOL) 0.356 % (0.000-0.010); GLOMERULAR FILTRATION RATE > 60.0 (>45); GLUCOSE, FASTING 97 MG/DL (70-100); POTASSIUM SERUM 3.9 MEQ/L (3.5-5.1); SALICYLATE LEVEL 4.6 MG/DL (5.0-30.0); SODIUM LEVEL 144 MEQ/L (136-145); THYROID STIMULATING HORMONE 0.482 uIU/ML (0.358-3.740); TOTAL PROTEIN 7.1 GM/DL (6.4-8.2)
[2019-06-26] MEDS ORDERED: FOLIC ACID 1 MG TAB PO SCH (15:00)
[2019-06-26] MEDS ORDERED: MULTIVITAMINS/MINERALS THERAP 1 TAB PO SCH (15:00)
[2019-06-26] MEDS: THIAMINE 100 MG TAB PO SCH ×2 (15:13→21:04)
[2019-06-26 16:03] LABS: AMPHETAMINES LEVEL URINE NEGATIVE (NEGATIVE); BARBITURATES URINE NEGATIVE (NEGATIVE); BENZODIAZEPINES URINE NEGATIVE (NEGATIVE); CANNABINOIDS URINE NEGATIVE (NEGATIVE); COCAINE METABOLITE URINE NEGATIVE (NEGATIVE); METHADONE URINE NEGATIVE (NEGATIVE); OPIATES URINE NEGATIVE (NEGATIVE); PHENCYCLIDINE URINE NEGATIVE (NEGATIVE)
[2019-06-26] MEDS: LORazepam 2 MG TAB PO PRN ×2 (16:05→21:01)
[2019-06-26] MEDS ORDERED: hydrOXYzine 25 MG TAB PO ONE (20:45)
[2019-06-26] MEDS ORDERED: THIAMINE 100 MG TAB PO SCH (21:00)
[2019-06-27 06:25] VITALS: BP 179/111
[2019-06-27] MEDS ORDERED: FOLIC ACID 1 MG TAB PO SCH (09:00)
[2019-06-27] MEDS ORDERED: MULTIVITAMINS/MINERALS THERAP 1 TAB PO SCH (09:00)
== END 2019-06-27 06:32 | disposition home or self-care (01) ==
LOC: M ED 11:54
DX: F10.129 Alcohol abuse with intoxication, unspecified (principal); F32.9 Major depressive disorder, single episode, unspecified; E78.00 Pure hypercholesterolemia, unspecified; F17.200 Nicotine dependence, unspecified, uncomplicated; Z79.899 Other long term (current) drug therapy; Z91.011 Allergy to milk products
CPT/HCPCS: 80048; 80076; 80307; 84443; 85027; 99284; G0480

== ENCOUNTER → 2020-02-18 | Outpatient (REF) | payer MEDICARE ==
[~2020-02-18] MED LIST changes: +ASCO250T20 PO; +HYDR-3363 PO; -TRAZ10TA PO; +TRAZ1TAB12 PO; -VITA1TAB23 PO
[2020-02-18 12:18] LABS: HEMATOCRIT 39.5 % (36.0-47.0); HEMOGLOBIN 13.1 g/dl (12.0-15.5); MEAN CORPUSCULAR HEMOGLOBIN 32.6 pg (27.0-33.0); MEAN CORPUSCULAR HGB CONC 33.2 g/dl (32.0-36.5); MEAN CORPUSCULAR VOLUME 98.3 fl (80.0-96.0); PLATELET COUNT, AUTOMATED 428 10^3/uL (150-450); RED BLOOD COUNT 4.02 10^6/uL (4.00-5.40); WHITE BLOOD COUNT 12.8 10^3/uL (4.0-10.0)
[2020-02-18 12:36] LABS: ALBUMIN 3.1 GM/DL (3.2-5.2); ALT/SGPT 97 U/L (12-78); BILIRUBIN,TOTAL 0.7 MG/DL (0.2-1.0); BLOOD UREA NITROGEN 6 MG/DL (7-18); CALCIUM LEVEL 8.6 MG/DL (8.8-10.2); CARBON DIOXIDE LEVEL 27 MEQ/L (21-32); CHLORIDE LEVEL 99 MEQ/L (98-107); CHOLESTEROL LEVEL 165 MG/DL (<200); CHOLESTEROL RISK RATIO 3.666 (<5); CREATININE FOR GFR 0.59 MG/DL (0.55-1.30); GLOMERULAR FILTRATION RATE > 60.0 (>45); GLUCOSE, FASTING 103 MG/DL (70-100); HDL CHOLESTEROL 45 MG/DL (>40); LDL CHOLESTEROL 97 MG/DL (<100); MAGNESIUM LEVEL 1.5 MG/DL (1.8-2.4); NON-HDL-C 120 MG/DL; POTASSIUM SERUM 4.6 MEQ/L (3.5-5.1); SODIUM LEVEL 133 MEQ/L (136-145); TOTAL PROTEIN 6.6 GM/DL (6.4-8.2); TRIGLYCERIDES LEVEL 114 MG/DL (<150)
[2020-02-18 13:57] LABS: HEMOGLOBIN A1c 5.7 %
== END ==
LOC: M SFHCPLAZ 09:01
PROVIDERS: ATTEND Family Medicine
DX: E78.00 Pure hypercholesterolemia, unspecified (principal); Z13.1 Encounter for screening for diabetes mellitus; R03.0 Elevated blood-pressure reading, without diagnosis of hypertension; Z79.899 Other long term (current) drug therapy
CPT/HCPCS: 36415; 80053; 80061; 83036; 83735; 84443; 85027; 90732; G0009; G0463

== ENCOUNTER 2020-04-25 12:37 | Emergency (ER) | payer MEDICARE, MEDICAID ==
[~2020-04-25] VITALS: Ht 160 cm; Wt 63.6 kg
[2020-04-25] MEDS ORDERED: NS 1,000 ML IV SCH (13:27)
[2020-04-25] MEDS ORDERED: PANTOPRAZOLE 40MG VIAL (C9113 PER 1) IV ONE (13:30)
[2020-04-25] MEDS ORDERED: ONDANSETRON 4MG/2ML VIAL IV ONE ×2 (13:30→19:00)
[2020-04-25] MEDS ORDERED: LORazepam 2 MG/ML VIAL IV STA (14:18)
[2020-04-25] MEDS ORDERED: LORazepam 2 MG/ML VIAL As Ordered ONE (14:21)
[2020-04-25] MEDS ORDERED: ISOVUE-370 76% 100ML VIAL As Ordered ONE (14:30)
[2020-04-25 14:31] LABS: BASO % 0.7 % (0.0-1.0); EOS % 0.2 % (0.0-3.0); HEMATOCRIT 35.2 % (36.0-47.0); HEMOGLOBIN 11.6 g/dl (12.0-15.5); LYMPH % 21.6 % (24.0-44.0); MEAN CORPUSCULAR HEMOGLOBIN 31.4 pg (27.0-33.0); MEAN CORPUSCULAR VOLUME 95.1 fl (80.0-96.0); MONO # 0.4 10^3/uL (0.0-0.8); MONO % 8.9 % (0.0-5.0); NEUTROPHILS # 3.1 10^3/uL (1.5-8.5); NEUTROPHILS % 68.2 % (36.0-66.0); PLATELET COUNT, AUTOMATED 160 10^3/uL (150-450); WHITE BLOOD COUNT 4.6 10^3/uL (4.0-10.0)
[2020-04-25 14:53] LABS: ALBUMIN 3.8 GM/DL (3.2-5.2); ALT/SGPT 155 U/L (12-78); BILIRUBIN,DIRECT 0.9 MG/DL (0.0-0.2); BILIRUBIN,TOTAL 1.4 MG/DL (0.2-1.0); BLOOD UREA NITROGEN 11 MG/DL (7-18); CALCIUM LEVEL 8.3 MG/DL (8.8-10.2); CARBON DIOXIDE LEVEL 12 MEQ/L (21-32); CHLORIDE LEVEL 98 MEQ/L (98-107); ETHYL ALCOHOL (ETHANOL) 0.193 % (0.000-0.010); GLOMERULAR FILTRATION RATE > 60.0 (>45); GLUCOSE, FASTING 78 MG/DL (70-100); LIPASE 941 U/L (73-393); POTASSIUM SERUM 3.2 MEQ/L (3.5-5.1); SODIUM LEVEL 133 MEQ/L (136-145); TOTAL PROTEIN 7.6 GM/DL (6.4-8.2)
[2020-04-25 15:01] LABS: INR 1.04; PROTHROMBIN TIME 13.8 SECONDS (11.8-14.0)
[2020-04-25 15:02] LABS: PARTIAL THROMBOPLASTIN TIME 25.4 SECONDS (25.0-38.4)
[2020-04-25] MEDS ORDERED: PANTOPRAZOLE SODIUM 40 MG in D5W 50 ML IV SCH (15:30)
[2020-04-25] MEDS ORDERED: POTASSIUM CHLORIDE 10% LIQ 20 MEQ/15 ML UDC PO ONE (15:30)
[2020-04-25] MEDS ORDERED: OCTREOTIDE ACETATE 100MCG/ML VIAL (J2354 PER 25MCG) IV ONE (19:30)
[2020-04-25 20:42] VITALS: BP 138/75
[2020-04-25] MEDS ORDERED: OCTREOTIDE ACETATE 1,200 MCG in NS 238.8 ML IV SCH (21:00)
--- NOTE | 2020-05-23 13:49 | REP ---
CT OF THE ABDOMEN AND PELVIS WITH CONTRAST DATE/TIME: 04/25/2020 at 2:32 p.m. CLINICAL: Generalized abdominal pain and hematemesis. TECHNIQUE: Axial contrast-enhanced images from the lung base to the pubic symphysis using 100 mL of Isovue 370 intravenous contrast material with coronal and sagittal reformations. COMPARISON: None. FINDINGS: Lung bases demonstrate chronic changes. Marked fatty infiltration to the liver noted without focal hepatic lesion. Spleen, pancreas, gallbladder, bilateral adrenal glands and kidneys are essentially normal. The enteric system is without obstruction or definite acute inflammatory process; however, a mild colitis cannot be excluded. Sigmoid diverticula noted without acute diverticulitis. Pelvis demonstrates normal bladder and enlarged uterus with significant myomatous changes along with 2.5 cm left ovarian cyst. No pelvic fluid or ascites. No free air. No adenopathy, atherosclerotic changes to the aorta and vasculature without aneurysm or dissection. Musculoskeletal structures demonstrate age-related changes without acute osseous abnormality. IMPRESSION: * Marked hepatosteatosis. * Cannot exclude a very mild colitis. * Enlarged significant myomatous changes to the uterus and 2.5 cm left ovarian cyst. * No further acute abdominopelvic pathology appreciated. No ascites. No focal inflammatory stranding. No adenopathy. MTDD
--- NOTE | 2020-05-23 13:50 | REP ---
CERVICAL SPINE CT WITHOUT CONTRAST CLINICAL: Trauma. TECHNIQUE: Axial images from the skull base to the thoracic inlet with coronal and sagittal reformations. COMPARISON: 08/09/2016 FINDINGS: Chronic reversal of normal lordosis along with advanced multilevel degenerative changes are again noted and similar to prior examination. No acute fracture/compression injury or acute subluxation. Posterior elements and spinous processes are intact. Spinal canal is patent. Paravertebral soft tissues are within normal limits. IMPRESSION: Advanced chronic degenerative spondylosis and reversal of normal lordosis. No acute fracture/compression injury or subluxation. MTDD
--- NOTE | 2020-05-23 13:50 | REP ---
NONCONTRAST HEAD CT: CLINICAL: Trauma. TECHNIQUE: Axial images from the skull base to the vertex with coronal reformations. FINDINGS: Age related atrophy and microvascular ischemic changes noted. The ventricles, sulci and cisterns are symmetric and normal for age. Romano-white differentiation is maintained. No acute intracranial hemorrhage, mass or mass effect. No extra- axial fluid collection. The calvarium is intact. The paranasal sinuses and mastoid air cells are clear. IMPRESSION: Age related changes. No acute intracranial pathology or trauma/injury. MTDD
== END 2020-04-25 20:45 | disposition short-term general hospital (02) ==
LOC: M ED 12:37
DX: K92.2 Gastrointestinal hemorrhage, unspecified (principal); F10.10 Alcohol abuse, uncomplicated; F33.9 Major depressive disorder, recurrent, unspecified; Z79.899 Other long term (current) drug therapy; Z91.011 Allergy to milk products; F17.210 Nicotine dependence, cigarettes, uncomplicated
CPT/HCPCS: 70450; 72125; 74177; 80047; 80048; 80076; 83690; 85025; 85610; 85730; 86850; 86900; 86901; 93041; 94760; 99285; C9113; G0480; J2060; J2354; J2405; Q9967

== ENCOUNTER → 2020-06-16 | Outpatient (CLI) | payer MEDICARE, MEDICAID ==
--- NOTE | 2020-06-16 12:31 | REP ---
INDICATION: CIGARETTE NICOTINE DEPENDENCE COMPARISON: None. TECHNIQUE: Axial noncontrast images from the thoracic inlet to the upper abdomen using low-dose lung screening technique (LDCT). FINDINGS: Emphysematous changes are appreciated with mild bronchiectasis and minimal primarily right-sided scarring which may be related to prior trauma given the multiple healed right rib fractures. No consolidation or suspicious nodule/mass lesion is appreciated. No effusion. No pneumothorax. Cardiomegaly with primarily left atrial and left ventricle enlargement is suggested. IMPRESSION: 1. Chronic emphysematous changes and primarily right sided posttraumatic scarring suggested. 2. Lung-RADS category 1. No suspicious nodule or mass. Management recommendations include annual low-dose surveillance. 3. Cardiomegaly with primarily left atrial and left ventricular enlargement suggested. <Electronically signed by Martin Yeager > 06/16/20 [id number]
== END ==
LOC: M RAD 10:13
PROVIDERS: ATTEND Family Medicine
DX: Z12.2 Encounter for screening for malignant neoplasm of respiratory organs (principal); F17.210 Nicotine dependence, cigarettes, uncomplicated

== ENCOUNTER → 2020-08-30 | Outpatient (REF) | payer MEDICARE ==
[2020-08-30 14:34] LABS: FREE T4 0.97 NG/DL (0.76-1.46); PERCENT SATURATION 5.7 % (13.2-45.0); THYROID STIMULATING HORMONE 1.87 uIU/ML (0.358-3.740)
[2020-08-31 20:12] LABS: TESTOSTERONE FREE (DIRECT) 1.2 pg/mL (0.0-4.2); TRANSFERRIN 453 mg/dL (192-364)
== END ==
LOC: M SFHCPLAZ 09:18
PROVIDERS: ATTEND Family Medicine
DX: L65.9 Nonscarring hair loss, unspecified (principal)
CPT/HCPCS: 36415; 84402; 84403; 84439; 84443; 84466; G0463

== ENCOUNTER → 2020-09-04 | Outpatient (CLI) | payer MEDICARE ==
[2020-09-04 15:14] LABS: BLOOD UREA NITROGEN 10 MG/DL (7-18); CALCIUM LEVEL 9.2 MG/DL (8.8-10.2); CARBON DIOXIDE LEVEL 26 MEQ/L (21-32); CHLORIDE LEVEL 104 MEQ/L (98-107); CREATININE FOR GFR 0.64 MG/DL (0.55-1.30); GLOMERULAR FILTRATION RATE > 60.0 (>45); GLUCOSE, FASTING 89 MG/DL (70-100); SODIUM LEVEL 136 MEQ/L (136-145)
== END ==
LOC: M PLALAB 11:01
PROVIDERS: ATTEND Family Medicine
DX: M81.0 Age-related osteoporosis without current pathological fracture (principal)

== ENCOUNTER 2020-12-05 14:31 | Emergency (ER) | payer MEDICARE, MEDICAID ==
[~2020-12-05] VITALS: Ht 160 cm; Wt 73.2 kg
[~2020-12-05 14:31] MED LIST changes: +FOLIC ACID 1 MG TAB PO SCH; +MULTIVITAMINS/MINERALS THERAP 1 TAB PO SCH; +THIAMINE 100 MG TAB PO SCH
[2020-12-05] MEDS ORDERED: MIRTAZAPINE (14:45)
[2020-12-05] MEDS ORDERED: BUSP10TA (14:45)
[2020-12-05] MEDS ORDERED: CITA20TA7 (14:45)
[2020-12-05] MEDS ORDERED: LORazepam 2 MG TAB PO PRN (15:00)
[2020-12-05 15:25] LABS: HEMATOCRIT 43.3 % (36.0-47.0); HEMOGLOBIN 14.8 g/dl (12.0-15.5); MEAN CORPUSCULAR HEMOGLOBIN 33.1 pg (27.0-33.0); MEAN CORPUSCULAR HGB CONC 34.2 g/dl (32.0-36.5); MEAN CORPUSCULAR VOLUME 96.9 fl (80.0-96.0); PLATELET COUNT, AUTOMATED 214 10^3/uL (150-450); RED BLOOD COUNT 4.47 10^6/uL (4.00-5.40); WHITE BLOOD COUNT 5.6 10^3/uL (4.0-10.0)
[2020-12-05 16:03] LABS: AMPHETAMINES LEVEL URINE NEGATIVE (NEGATIVE); BARBITURATES URINE NEGATIVE (NEGATIVE); BENZODIAZEPINES URINE NEGATIVE (NEGATIVE); CANNABINOIDS URINE NEGATIVE (NEGATIVE); COCAINE METABOLITE URINE NEGATIVE (NEGATIVE); METHADONE URINE NEGATIVE (NEGATIVE); OPIATES URINE NEGATIVE (NEGATIVE); PHENCYCLIDINE URINE NEGATIVE (NEGATIVE)
[2020-12-05 16:07] LABS: BLOOD UREA NITROGEN 7 MG/DL (7-18); CALCIUM LEVEL 8.3 MG/DL (8.8-10.2); CARBON DIOXIDE LEVEL 24 MEQ/L (21-32); CHLORIDE LEVEL 100 MEQ/L (98-107); CREATININE FOR GFR 0.51 MG/DL (0.55-1.30); GLOMERULAR FILTRATION RATE > 60.0 (>45); GLUCOSE, FASTING 95 MG/DL (70-100); SODIUM LEVEL 139 MEQ/L (136-145)
[2020-12-05 16:08] LABS: ACETAMINOPHEN LEVEL < 2.0 UG/ML (10.0-30.0); ALBUMIN 3.6 GM/DL (3.2-5.2); ALT/SGPT 75 U/L (12-78); BILIRUBIN,DIRECT 0.1 MG/DL (0.0-0.2); BILIRUBIN,TOTAL 0.4 MG/DL (0.2-1.0); ETHYL ALCOHOL (ETHANOL) 0.261 % (0.000-0.010); SALICYLATE LEVEL 4.3 MG/DL (5.0-30.0); TOTAL PROTEIN 7.2 GM/DL (6.4-8.2)
[2020-12-05] MEDS ORDERED: ONDANSETRON 4 MG ORAL DISINTEGRATING TAB PO ONE (16:55)
[2020-12-05 18:01] VITALS: BP 127/62
[2020-12-05] MEDS ORDERED: THIAMINE 100 MG TAB PO SCH (21:00)
[2020-12-06] MEDS ORDERED: FOLIC ACID 1 MG TAB PO SCH (09:00)
[2020-12-06] MEDS ORDERED: MULTIVITAMINS/MINERALS THERAP 1 TAB PO SCH (09:00)
== END 2020-12-05 18:41 | disposition short-term general hospital (02) ==
LOC: M ED 14:31
DX: F10.10 Alcohol abuse, uncomplicated (principal); E78.5 Hyperlipidemia, unspecified; F17.200 Nicotine dependence, unspecified, uncomplicated; Z91.011 Allergy to milk products
CPT/HCPCS: 80048; 80076; 80143; 80307; 82077; 84443; 85027; 87798; 99285; Q0162

== ENCOUNTER → 2021-05-04 | Outpatient (REF) | payer MEDICARE, MEDICAID ==
[~2021-05-04] MED LIST changes: +BUSP10TA; +CITA20TA7; -FOLIC ACID 1 MG TAB PO SCH; +MIRTAZAPINE; -MULTIVITAMINS/MINERALS THERAP 1 TAB PO SCH; -THIAMINE 100 MG TAB PO SCH
== END ==
LOC: M SFHCPLAZ 16:55
PROVIDERS: ATTEND Physician Assistant
DX: R10.84 Generalized abdominal pain (principal); R14.0 Abdominal distension (gaseous); R19.7 Diarrhea, unspecified
CPT/HCPCS: 36415; 80053; 83690; 85025; 85652; 86140; 87505; G0463

== ENCOUNTER → 2021-05-04 | Outpatient (CLI) | payer MEDICARE, MEDICAID ==
[2021-05-04 15:37] LABS: BASO # 0.1 10^3/uL (0.0-0.2); BASO % 0.7 % (0.0-1.0); EOS # 0.1 10^3/uL (0.0-0.5); EOS % 0.9 % (0.0-3.0); HEMOGLOBIN 13.7 g/dl (12.0-15.5); LYMPH # 2.2 10^3/uL (1.5-5.0); LYMPH % 15.2 % (24.0-44.0); MEAN CORPUSCULAR HEMOGLOBIN 34.3 pg (27.0-33.0); MEAN CORPUSCULAR HGB CONC 33.4 g/dl (32.0-36.5); MEAN CORPUSCULAR VOLUME 102.8 fl (80.0-96.0); MONO # 1.1 10^3/uL (0.0-0.8); MONO % 7.9 % (2.0-8.0); NEUTROPHILS # 10.5 10^3/uL (1.5-8.5); NEUTROPHILS % 74.7 % (36.0-66.0); PLATELET COUNT, AUTOMATED 407 10^3/uL (150-450); RED BLOOD COUNT 3.99 10^6/uL (4.00-5.40); WHITE BLOOD COUNT 14.1 10^3/uL (4.0-10.0)
[2021-05-04 16:02] LABS: ALT/SGPT 67 U/L (12-78); BILIRUBIN,TOTAL 1.1 MG/DL (0.2-1.0); BLOOD UREA NITROGEN 6 MG/DL (7-18); C REACTIVE PROTEIN QUANTITATIV 4.93 MG/DL (0.00-0.30); CALCIUM LEVEL 8.6 MG/DL (8.8-10.2); CARBON DIOXIDE LEVEL 25 MEQ/L (21-32); CHLORIDE LEVEL 102 MEQ/L (98-107); CREATININE FOR GFR 0.59 MG/DL (0.55-1.30); GLOMERULAR FILTRATION RATE > 60.0 (>45); GLUCOSE, FASTING 103 MG/DL (70-100); LIPASE 117 U/L (73-393); POTASSIUM SERUM 3.9 MEQ/L (3.5-5.1); SODIUM LEVEL 135 MEQ/L (136-145)
[2021-05-04 16:04] LABS: ERYTHROCYTE SEDIMENTATION RATE 48 mm/hr (0-30)
== END ==
LOC: M PLALAB 12:45
PROVIDERS: ATTEND Physician Assistant
DX: R10.84 Generalized abdominal pain (principal); R14.0 Abdominal distension (gaseous); K62.89 Other specified diseases of anus and rectum; R19.7 Diarrhea, unspecified

== ENCOUNTER → 2021-05-07 | Outpatient (CLI) | payer MEDICARE, MEDICAID ==
[~2021-05-07] MED LIST changes: +GASTROGRAFIN SOLUTION 30ML (Q9963) As Ordered ONE; +ISOVUE-370 76% 100ML VIAL As Ordered ONE
--- NOTE | 2021-05-07 11:37 | REP ---
INDICATION: ABD PAIN ABD BLOATING. COMPARISON: 04/25/2020 TECHNIQUE: Standard helical technique after the intravenous administration of 100 cc Isovue 370 and oral bowel preparatory contrast administration. FINDINGS: There is no significant change in appearance of the lung bases. The liver and spleen are within normal limits. Fatty infiltration seen previously has resolved. The gallbladder, pancreas, adrenal glands, and kidneys are within normal limits. The abdominal aorta and para-aortic regions are within normal limits. There is no evidence of free fluid or free air. There is colonic diverticulosis status quo. The dixon of the cecum may be mildly edematous, however, there is no evidence of fatty infiltration. There is a fatty density within the ileal cecal valve region possibly secondary to an ileocecal valve lipoma. There is no evidence of intestinal obstruction. Once again, there are mixed enhancing masses in the uterus consistent with myomatous change status quo. No adenopathy has developed. There is no significant change in appearance of the osseous structures. IMPRESSION: 1. There are some changes in the cecum which suggest chronic inflammatory changes. There is no fatty infiltration seen today that would suggest an acute inflammatory process. There is unchanged appearing diverticulosis. 2. Fatty infiltration of the liver seen previously has resolved. 3. Chronic uterine myomatous changes appear stable. 4. Other findings as described above. <Electronically signed by Jagdish Vo > 05/07/21 [id number]
== END ==
LOC: M RAD 09:03
PROVIDERS: ATTEND Physician Assistant
DX: R10.84 Generalized abdominal pain (principal); R14.0 Abdominal distension (gaseous); R19.7 Diarrhea, unspecified; D25.9 Leiomyoma of uterus, unspecified; K57.90 Diverticulosis of intestine, part unspecified, without perforation or abscess without bleeding
CPT/HCPCS: 74177; Q9963; Q9967

== ENCOUNTER → 2021-05-09 | Outpatient (CLI) | payer MEDICARE, MEDICAID ==
[~2021-05-09] MED LIST changes: -GASTROGRAFIN SOLUTION 30ML (Q9963) As Ordered ONE; -ISOVUE-370 76% 100ML VIAL As Ordered ONE
[2021-05-09 13:33] LABS: BASO # 0.1 10^3/uL (0.0-0.2); BASO % 0.7 % (0.0-1.0); EOS # 0.1 10^3/uL (0.0-0.5); EOS % 0.8 % (0.0-3.0); HEMATOCRIT 40.9 % (36.0-47.0); HEMOGLOBIN 13.9 g/dl (12.0-15.5); LYMPH # 1.8 10^3/uL (1.5-5.0); MEAN CORPUSCULAR HEMOGLOBIN 34.6 pg (27.0-33.0); MEAN CORPUSCULAR VOLUME 101.7 fl (80.0-96.0); MONO # 1.2 10^3/uL (0.0-0.8); MONO % 7.7 % (2.0-8.0); NEUTROPHILS # 12.6 10^3/uL (1.5-8.5); NEUTROPHILS % 79.2 % (36.0-66.0); PLATELET COUNT, AUTOMATED 473 10^3/uL (150-450); RED BLOOD COUNT 4.02 10^6/uL (4.00-5.40); WHITE BLOOD COUNT 15.9 10^3/uL (4.0-10.0)
[2021-05-09 14:16] LABS: ALT/SGPT 54 U/L (12-78); BILIRUBIN,TOTAL 0.9 MG/DL (0.2-1.0); BLOOD UREA NITROGEN 5 MG/DL (7-18); CALCIUM LEVEL 8.5 MG/DL (8.8-10.2); CARBON DIOXIDE LEVEL 26 MEQ/L (21-32); CHLORIDE LEVEL 98 MEQ/L (98-107); GLOMERULAR FILTRATION RATE > 60.0 (>45); GLUCOSE, FASTING 96 MG/DL (70-100); IRON (FE) 72 UG/DL (50-170); POTASSIUM SERUM 4.1 MEQ/L (3.5-5.1); SODIUM LEVEL 135 MEQ/L (136-145); TOTAL PROTEIN 6.7 GM/DL (6.4-8.2)
[2021-05-09 14:17] LABS: FERRITIN 109 NG/ML (8-252); PERCENT SATURATION 24.7 % (13.2-45.0); TOTAL IRON BINDING CAPACITY 291 UG/DL (250-450)
[2021-05-11 03:07] LABS: ANTI-MITOCHONDRIAL ANTIBODY <20.0 Units (0.0-20.0); ANTINUCLEAR ANTIBODIES DIRECT Negative (Negative)
== END ==
LOC: M PLALAB 09:33
PROVIDERS: ATTEND Physician Assistant
DX: R14.0 Abdominal distension (gaseous) (principal); R10.84 Generalized abdominal pain; R19.7 Diarrhea, unspecified; R89.9 Unspecified abnormal finding in specimens from other organs, systems and tissues

== ENCOUNTER 2021-06-01 12:27 | Inpatient (IN) | payer MEDICARE, MEDICAID ==
[~2021-06-01] VITALS: Ht 160 cm; Wt 75.5 kg
[~2021-06-01 12:27] MED LIST changes: -BUSP10TA; +BUSP10TA PO; -CITA20TA7; +CITA20TA7 PO
[2021-06-01] MEDS ORDERED: ACETAMINOPHEN TAB 650MG DOSE (2X325MG) PO ONE (13:05)
[2021-06-01] MEDS ORDERED: NS 1,000 ML IV ONE (13:05)
[2021-06-01 13:59] LABS: BASO # 0.1 10^3/uL (0.0-0.2); BASO % 0.5 % (0.0-1.0); EOS # 0.1 10^3/uL (0.0-0.5); EOS % 0.7 % (0.0-3.0); HEMATOCRIT 35.1 % (36.0-47.0); HEMOGLOBIN 12.3 g/dl (12.0-15.5); LYMPH # 2.5 10^3/uL (1.5-5.0); LYMPH % 12.5 % (24.0-44.0); MEAN CORPUSCULAR HEMOGLOBIN 34.4 pg (27.0-33.0); MONO # 1.2 10^3/uL (0.0-0.8); MONO % 6.3 % (2.0-8.0); NEUTROPHILS # 15.7 10^3/uL (1.5-8.5); NEUTROPHILS % 79.4 % (36.0-66.0); PLATELET COUNT, AUTOMATED 506 10^3/uL (150-450); RED BLOOD COUNT 3.58 10^6/uL (4.00-5.40); WHITE BLOOD COUNT 19.8 10^3/uL (4.0-10.0)
[2021-06-01 14:40] LABS: ALBUMIN 2.2 GM/DL (3.2-5.2); ALT/SGPT 35 U/L (12-78); BILIRUBIN,DIRECT 0.4 MG/DL (0.0-0.2); BILIRUBIN,TOTAL 0.7 MG/DL (0.2-1.0); BLOOD UREA NITROGEN 6 MG/DL (7-18); CALCIUM LEVEL 7.8 MG/DL (8.8-10.2); CARBON DIOXIDE LEVEL 28 MEQ/L (21-32); CHLORIDE LEVEL 92 MEQ/L (98-107); CREATININE FOR GFR 0.64 MG/DL (0.55-1.30); GLOMERULAR FILTRATION RATE > 60.0 (>45); GLUCOSE, FASTING 99 MG/DL (70-100); LIPASE 92 U/L (73-393); POTASSIUM SERUM 2.8 MEQ/L (3.5-5.1); SODIUM LEVEL 130 MEQ/L (136-145); TOTAL PROTEIN 5.8 GM/DL (6.4-8.2)
[2021-06-01] MEDS ORDERED: KCL 10MEQ/100ML SWI (KRUN) 10 MEQ in IV 1 EA IV ONE ×3 (15:00→20:00)
[2021-06-01] MEDS ORDERED: POTASSIUM CHLORIDE 10MEQ SR TABLET PO ONE (15:00)
[2021-06-01] MEDS: GASTROGRAFIN SOLUTION 30ML PO SCH ×2 (15:19→16:06)
[2021-06-01] MEDS ORDERED: ISOVUE-370 76% 100ML VIAL As Ordered ONE (16:23)
--- NOTE | 2021-06-01 17:07 | REP ---
INDICATION: gen abd pain, diarrhea. COMPARISON: 05/07/2021 TECHNIQUE: Standard helical technique after the intravenous administration of 100 cc Isovue 370 IV and oral bowel preparatory contrast administration. FINDINGS: There is no significant change in the lung bases. There is a small to moderate amount of ascites which has developed since the last exam. The liver, gallbladder, spleen, pancreas, adrenal glands, and kidneys are unchanged. The abdominal aorta and para-aortic regions are unchanged. The dixon of the terminal ileum appear to be thickened. There also appears to be mural thickening of the ascending colon. Generalized colonic wall edema cannot be ruled out. This has increased from the prior exam. There is no evidence of free air, however, small amount of free air in the mesentery adjacent to the terminal ileum cannot be ruled out.. There are no significant changes in the osseous structures. IMPRESSION: 1. There is ascites of uncertain etiology. 2. Evidence of terminal ileitis and pancolitis particularly affecting the cecum and increased from the prior exam. Neoplastic change cannot be ruled out. 3. No evidence of definite free intraperitoneal air, however, small amount of air density in the mesentery adjacent to the terminal ileum cannot be completely ruled out. 4. This was discussed with at the time of this exam. <Electronically signed by Jagdish Vo > 06/01/21 [id number]
[2021-06-01] MEDS ORDERED: PIPERACILLIN/TAZOBACTAM SOD 4.5 GM in D5W MINI-BAG PLUS 50 ML IV ONE (17:40)
[2021-06-01] MEDS ORDERED: ACETAMINOPHEN TAB 650MG DOSE (2X325MG) PO PRN (18:15)
--- NOTE | 2021-06-01 18:35 | IPNPDOC ---
Text Note Date of Service The patient was seen on 06/01/21. NOTE Interval update: - Full history and physical to follow CC: Patient presented to the emergency room with complaints of diarrhea HPI: Patient is a 71-year-old female with PMHx of DLP, Depression, Active smoker, Hx of Alcohol abuse (Quit 01/2020) who presented to ER with complaints of diarrhea since one month. She was seen and evaluated by the resident clinic approximately 05/04/21 with similar complaints of diarrhea with associated abdominal cramping. Patient is instructed to get a CT scan of her abdomen along with stool studies and lab work. Lab work had revealed leukocytosis, mild hyponatremia, slightly elevated CRP of 4.93 and a normal lipase. CT abdomen and pelvis completed 05/07/21 revealed some changes in the cecum which suggest chronic inflammatory changes. Patient was instructed to follow-up with gastroenterology. Patient presented to the ER this time because of worsening diarrhea with associated cramping. She denies any fevers or chills. She also reports some dysuria. Physical: Vitals (See below) General: Lying in bed, appears comfortable, AAOx3 HEENT: NC, AT CVS: +S1S2 Lungs: Fair air entry b/l, -w/r/r Abdomen: Soft, nondistended, reports diffuse tenderness (mild) Extremities: Lower extremity is are without edema Imaging: CT abdomen / pelvis 06/01: 1. There is ascites of uncertain etiology. 2. Evidence of terminal ileitis and pancolitis particularly affecting the cecum and increased from the prior exam. Neoplastic change cannot be ruled out. 3. No evidence of definite free intraperitoneal air, however, small amount of air density in the mesentery adjacent to the terminal ileum cannot be completely ruled out. 4. This was discussed with Dr. Valerio at the time of this exam. Assessment and plan: Abdominal pain - possibly 2/2 inflammatory process (Crohn's Ulcerative colitis), infectious process, malignancy related - Reports multiple episodes of diarrhea; however bowel movement are small without evidence of blood - Hemodynamically stable and afebrile - Patient does not appear to have any significant abdominal tenderness - Leukocytosis - Lipase normal - Imaging noted above - Will check blood cultures / procalcitonin / GI panel / CRP / Lactic acid / UA - Will start IV fluid hydration (will increase rate of fluids if lactic acid is elevated) - Will start broad spectrum antibiotics (Zosyn) for intra-abdominal coverage - Will keep her NPO for now - Consulted and discussed case with Dr. Campbell; will evaluate today - Will consult GI for consideration of corticosteroids given DDX of inflammatory bowel disease Hyponatremia - likely 2/2 Hypotonic hypovolemic etiology - Will check urine electrolytes, urine and serum osmolalities - Will start IV fluid hydration Hypokalemia - Will provide IV based supplementation Transaminitis / Elevated Alkaline phosphotase - Anti-mitochondrial antibodies negative - GGT was elevated on 05/09 - Will check hepatitis profile - Will check US abdomen Macrocytic RBC - Will check B12 / Folate - c/w Ferrous gluconate DLP - Will hold Atorvastatin (re: Elevated AST) Depression - c/w Buspirone / Citalopram / Mirtazapine Active smoker - Will provide Nicotine patch PRN Hx of Alcohol abuse - Reports Quit 01/2020 GI prophylaxis - Will start Protonix DVT prophylaxis - c/w Heparin SQ Disposition: - Awaiting clinical improvement VS,[place], I+O VS, Fishbone, I+O Laboratory Tests 06/01/21 13:19 Vital Signs Date Time Temp Pulse Resp B/P (MAP) Pulse Ox O2 Delivery O2 Flow Rate FiO2 06/01/21 15:42 98.2 06/01/21 13:57 118/78 (91) 06/01/21 12:35 103 20 97 Room Air DENISE RAYO MD Jun 01, 2021 18:35
[2021-06-01 18:37] LABS: C REACTIVE PROTEIN QUANTITATIV 4.55 MG/DL (0.00-0.30)
[2021-06-01] MEDS ORDERED: SODIUM CHLORIDE 0.9% 1000ML IV ONE (18:40)
[2021-06-01] MEDS ORDERED: MIRT-62 PO (19:14)
[2021-06-01] MEDS ORDERED: HOME MED LIST COMPLETE! XX SCH (19:15)
[2021-06-01 19:18] LABS: RSV AMPLIFICATION NEGATIVE (NEGATIVE)
[2021-06-01 20:21] LABS: PERCENT SATURATION 17.9 % (13.2-45.0)
--- NOTE | 2021-06-01 20:55 | REPVR ---
PROCEDURE INFORMATION: Exam: CT Head Without Contrast Exam date and time: 06/01/2021 8:33 PM Age: 71 years old Clinical indication: Injury or trauma; Fall; Blunt trauma (contusions or hematomas); Additional info: Fall at home and hit head TECHNIQUE: Imaging protocol: Computed tomography of the head without contrast. Radiation optimization: All CT scans at this facility use at least one of these dose optimization techniques: automated exposure control; mA and/or kV adjustment per patient size (includes targeted exams where dose is matched to clinical indication); or iterative reconstruction. COMPARISON: CT Head without contrast 04/25/2020 1:46 PM FINDINGS: Brain: Mild parenchymal atrophy. No significant white matter disease. Cerebral ventricles: The degree of ventricular dilatation is normal for age and/or degree of atrophy present. Paranasal sinuses: Visualized sinuses are unremarkable. No fluid levels. Mastoid air cells: Visualized mastoid air cells are well aerated. Bones/joints: Unremarkable. No acute fracture. Soft tissues: Unremarkable. IMPRESSION: 1. Mild parenchymal atrophy. 2. The degree of ventricular dilatation is normal for age and/or degree of atrophy present. 3. No acute intracranial findings. Electronically signed by: Faheem Raines On 06/01/2021 20:55:22 PM
[2021-06-01 21:14] LABS: HEPATITIS B CORE ANTIBODY IGM NEGATIVE (NEGATIVE); HEPATITIS B SURFACE ANTIGEN NEGATIVE (NEGATIVE)
--- NOTE | 2021-06-01 21:20 | HPEPDOC ---
[facility] Medical History & Physical Date of Admission Jun 01, 2021 Date of Service: Jun 01, 2021 Primary Care Physician: Jose Vazquez MD Attending Physician: REBECCA KENNY MD History and Physical CHIEF COMPLAINT: Abdominal pain/diarrhea HISTORY OF PRESENT ILLNESS: Patient is a 71-year-old female who presented to the ED today with abdominal pain and diarrhea that she said has persisted since being released from the hospital in [place] last year, but told ER staff it has been going on for over a month. She says the diarrhea is constant and has 15-20 episodes a day. She says these episodes are accompanied by bad cramping which resolves post bowel movement, but says diarrhea leaks out upon standing up after bowel movement. Does not know the point where the day or so persistent that she is afraid to leave the house out of fear of having an accident. After bowel movements she says she is occasionally lightheaded due to straining. She has gotten so lightheaded she falls, most recently 3 days ago and she recalls hitting her head. She denies ever losing consciousness and says returns to baseline within a couple minutes. She says she has tried Gas-X and Pepto-Bismol but neither has provided any relief. Patient also endorses not having any appetite and has been decreasing over the last several weeks. She says she can eat about 3 spoonfuls of mashed potatoes and then feels full. Patient sees Dr. Vazquez at the [facility] clinic. Patient endorses that she has been told that her labs were fine and within normal limits and to take Pepto- Bismol and a GI referral will be made. Her CT abdomen showed mild colitis and her labs showed leukocytosis and a referral was made to Dr. Lebron to evaluate right upper quadrant pain and diarrhea. Review of systems: Constitutional: Denies fevers; reports chills when straining during bowel movement Cardiac: Denies chest pain, tachycardia Respiratory: Denies SOB and SOB with exertion, coughing, pain with breathing Gastrointestinal: Reports nausea and diarrhea denies vomiting, bright red blood per rectum Neurology: Reports dizziness when straining for bowel movements, lightheadedness; denies headache, loss of consciousness PAST MEDICAL HISTORY: 1. Major depressive disorder. 2. Alcohol abuse. 3. Tobacco dependence 4. Hypercholesterolemia 5. Diverticulosis PAST SURGICAL HISTORY: 1. Cataract removal from right eye 12/16/2016. SOCIAL HISTORY: Marital status: No. Resides in: Apartment Children: 4 Employment: Unemployed Tobacco use: 1 pack a day for the last 50 years ETOH: 2 to 3 glasses of wine a week Illicit drug use: Denies IV drug use: Denies Marijuana use: Denies FAMILY HISTORY: Father: Unknown Mother: ; 70s when , believes complications from AAA or DVT complications Siblings: 3 brothers, 2 sisters Children: 3 sons, 1 daughter Hereditary Diseases: Unknown Unexpected deaths due to medical reasons: Unknown ALLERGIES: Please see below. REVIEW OF SYSTEMS: CONSTITUTIONAL: Denies fevers; reports chills when straining during bowel movement CARDIOVASCULAR: Denies chest pain, tachycardia RESPIRATORY: Denies SOB and SOB with exertion, coughing, pain with breathing GASTROINTESTINAL: Reports nausea and diarrhea denies vomiting, bright red blood per rectum GENITOURINARY: Reports dysuria; denies hematuria NEUROLOGICAL: Reports lightheadedness, dizziness; denies headache, loss of consciousness HOME MEDICATIONS: Please see below. PHYSICAL EXAMINATION: VITAL SIGNS at 1235 06/01/2021: Temperature 97.2 F (temporal), pulse 103, respiratory rate 20, blood pressure 94/52, pulse oximetry 97% on room air. GENERAL APPEARANCE: 71-year-old female, lying on stretcher in ER room, mild acute distress. HEENT: Normocephalic atraumatic, eyes noninjected sclera, throat moist mucous membranes. CARDIOVASCULAR: Regular rate and rhythm, no murmurs, no rubs, no gallops. LUNGS: Clear to auscultation bilaterally; no wheezes, no murmurs, no rhonchi. ABDOMEN: Diffusely tender to palpation; normoactive bowel sounds appreciated. NEUROLOGICAL: No focal deficits appreciated. PSYCHIATRIC: Alert and oriented x4. LABORATORY DATA: See below. IMAGING: CT abdomen pelvis with IV oral contrast 06/01/2021: FINDINGS: There is no significant change in the lung bases. There is a small to moderate amount of ascites which has developed since the last exam. The liver, gallbladder, spleen, pancreas, adrenal glands, and kidneys are unchanged. The abdominal aorta and para-aortic regions are unchanged. The dixon of the terminal ileum appear to be thickened. There also appears to be mural thickening of the ascending colon. Generalized colonic wall edema cannot be ruled out. This has increased from the prior exam. There is no evidence of free air, however, small amount of free air in the mesentery adjacent to the terminal ileum cannot be ruled out.. There are no significant changes in the osseous structures. IMPRESSION: 1. There is ascites of uncertain etiology. 2. Evidence of terminal ileitis and pancolitis particularly affecting the cecum and increased from the prior exam. Neoplastic change cannot be ruled out. 3. No evidence of definite free intraperitoneal air, however, small amount of air density in the mesentery adjacent to the terminal ileum cannot be completely ruled out. 4. This was discussed with at the time of this exam. CT abdomen pelvis with contrast 05/07/2021: Findings: There is no significant change in appearance of the lung bases. The liver and spleen are within normal limits. Fatty infiltration seen previously has resolved. The gallbladder, pancreas, adrenal glands, and kidneys are within normal limits. The abdominal aorta and para-aortic regions are within normal limits. There is no evidence of free fluid or free air. There is colonic diverticulosis status quo. The dixon of the cecum may be mildly edematous, however, there is no evidence of fatty infiltration. There is a fatty density within the ileal cecal valve region possibly secondary to an ileocecal valve lip alber. There is no evidence of intestinal obstruction. Once again, there are mixed enhancing masses in the uterus consistent with myomatous change status quo. No adenopathy has developed. There is no significant change in appearance of the osseous structures. Impression: 1. There are some changes in the cecum which suggest chronic inflammatory changes. There is no fatty infiltration seen today that would suggest an acute inflammatory process. There is unchanged appearing diverticulosis. 2. Fatty infiltration of the liver seen previously has resolved. 3. Chronic uterine myomatous changes appear stable. 4. Other findings as described above. MICROBIOLOGY: Please see below. ASSESSMENT: Ms. Vidal is a 71-year-old female who presented to the ED today after a long period of abdominal pain and diarrhea (at least longer than a month per ER staff). PLAN: Abdominal pain and diarrhea: Possibly secondarily related to an inflammatory process, infectious process, malignancy. Has experienced multiple episodes of diarrhea without blood. Currently hemodynamically stable and afebrile in no acute abdominal tenderness on exam. -See above imaging notes -Leukocytosis: WBC of 15.9 on 05/09/2021; today 19.8 -Lipase normal at 92 -GI panel negative -CRP 4.55 -Blood cultures, procalcitonin, lactic acid, UA pending -Normal saline maintenance started normal saline bolus given (will adjust as needed if lactic acid is elevated) -Zosyn started for broad-spectrum antibiotic coverage -Dr. Campbell with general surgery consulted and will see patient today -Made n.p.o. -Dr. Andres from GI was consulted for consideration of corticosteroids -Bentyl 10 mg p.o. twice daily given -FOBT ordered -We'll repeat and trend ESR and CRP -UA with reflex to culture -Alpha-1 antitrypsin -Calprotectin -Iron studies Hyponatremia likely secondary to hypotonic hypovolemic cause -We'll check urine electrolytes, urine and serum osmolalities -Has been started on fluid hydration Hypokalemia likely secondary to GI losses -Replenishment has been started with IV KCl and K runs -Daily CBCs -Monitor electrolytes and replenish as needed Transaminitis -Antimitochondrial antibodies negative -GGT elevated 05/09/2021 -Hepatitis panel ordered -Consider ultrasound abdomen Leukocytosis/macrocytic RBCs -We will check B12/folate -Start diuresis gluconate if appropriate -UA to rule out UTI Hyperlipidemia -Hold atorvastatin due to elevated AST Smoker -One nicotine patch today -Smoking cessation counseling History of alcohol abuse -Reports quit in 2019 but reported during interview she drinks 2 to 3 glasses of wine a week Major depressive disorder -Continue buspirone, citalopram, mirtazapine GI prophylaxis -Start Protonix DVT prophylaxis -Teds and sequentials Vital Signs Vital Signs Date Time Temp Pulse Resp B/P (MAP) Pulse Ox O2 Delivery O2 Flow Rate FiO2 06/01/21 20:04 97.1 72 16 97/63 (74) 100 Room Air Laboratory Data Labs 24H Laboratory Tests 2 06/01/21 13:19: Immature Granulocyte % (Auto) 0.6, Neutrophils (%) (Auto) 79.4H, Lymphocytes (%) (Auto) 12.5L, Monocytes (%) (Auto) 6.3, Eosinophils (%) (Auto) 0.7, Basophils (%) (Auto) 0.5, Neutrophils # (Auto) 15.7H, Lymphocytes # (Auto) 2.5, Monocytes # (Auto) 1.2H, Eosinophils # (Auto) 0.1, Basophils # (Auto) 0.1, Nucleated Red Blood Cells % (auto) 0.0, Anion Gap 10, Glomerular Filtration Rate > 60.0, Calcium Level 7.8L, Total Bilirubin 0.7, Direct Bilirubin 0.4H, Aspartate Amino Transf (AST/SGOT) 63H, Alanine Aminotransferase (ALT/SGPT) 35, Alkaline Phosphatase 196H, C-Reactive Protein, Quantitative 4.55H, Total Protein 5.8L, Albumin 2.2L, Albumin/Globulin Ratio 0.6L, Lipase 92 06/01/21 18:03: Lactic Acid Level 2.5*H 06/01/21 18:28: Coronavirus (COVID-19)(PCR) NEGATIVE, Influenza Type A (RT-PCR) NEGATIVE, Influenza Type B (RT-PCR) NEGATIVE, Respiratory Syncytial Virus (PCR) NEGATIVE 06/01/21 19:07: 06/01/21 19:47: Osmolality 271L, Iron Level 38L, Total Iron Binding Capacity 212L, Transferrin % Saturation 17.9, Hepatitis A IgM Antibody NEGATIVE, Hepatitis B Surface Antigen NEGATIVE, Hepatitis B Core IgM Antibody NEGATIVE, Hepatitis C Antibody Index 0.0 CBC/BMP Laboratory Tests 06/01/21 13:19 Microbiology Microbiology 06/01/21 Blood Culture, Received Pending 06/01/21 Blood Culture, Received Pending 06/01/21 Blood Culture, Received Pending 06/01/21 Blood Culture, Received Pending 06/01/21 Gastrointestinal Tract Panel (PCR) - Final, Complete Home Medications Scheduled Atorvastatin Calcium (Atorvastatin Calcium) 80 Mg Tab, 80 MG PO DAILY Buspirone HCl (Buspirone HCl) 10 Mg Tablet, 10 MG PO BID Citalopram Hydrobromide (Citalopram HBr) 20 Mg Tablet, 20 MG PO DAILY Mirtazapine (Remeron) 15 Mg Tablet, 15 MG PO QHS Polyethylene Glycol 3350 (Miralax) 17 Gm Powd.pack, 1 PKT PO DAILY Potassium Chloride (Klor-Con M10) 10 Meq Tab.er.prt, 40 MEQ PO BID Psyllium Husk/Aspartame (Metamucil Fiber Singles Packet) 3.4 Gm Powd.pack, 1 PKT PO BID Sod Phos Di, [place]/K Phos [place] (K-Phos Neutral Tablet) 250 Mg Tablet, 3 TAB PO TID Scheduled PRN Acetaminophen (Acetaminophen) 325 Mg Tablet, 650 MG PO Q4H PRN for MILD PAIN or TEMP > 101 Allergies Coded Allergies: milk (Verified Adverse Reaction, Mild, GI upset, 06/12/21) GME ATTESTATION GME ATTESTATION My faculty preceptor for this patient encounter was physically present during the encounter and was fully available. All aspects of the patient interview, examination, medical decision making process, and medical care plan development were reviewed and approved by the faculty preceptor. The faculty preceptor is aware and concurs with the plan as stated in the body of this note and will attest to such by his/her cosignature. ATTENDING NOTE I, Rebecca Kenny, have independently examined this patient and performed my own physical exam, as well as reviewed the documentation and edited where necessary with the resident. For medical students we have performed the physical exam together and discussed medical decision making and I have verified the history. I have discussed in detail with the resident / student the findings and plan of treatment as documented by the resident / student and edited their note. I agree with their findings and treatment plan and have edited their documentation. I will continue to follow the patient during this hospital stay. Dago Cordero DO Jun 01, 2021 21:20 REBECCA KENNY MD Jun 15, 2021 16:06
[2021-06-01 21:40] VITALS: BP 113/57
[2021-06-01] MEDS: MIRTAZAPINE 15 MG TAB PO SCH (22:48)
[2021-06-01] MEDS: PANTOPRAZOLE 40MG VIAL (C9113 PER 1) IV SCH (22:48)
[2021-06-01] MEDS: NS 1,000 ML IV SCH (22:49)
[2021-06-02] VITALS (9 sets, daily range): BP systolic 88–118; BP diastolic 55–67
[2021-06-02 00:52] LABS: MAGNESIUM LEVEL 1.5 MG/DL (1.8-2.4)
[2021-06-02] MEDS ORDERED: MAG SULF 1GM/100ML (MAG RUN) 1 GM in IV 1 EA IV ONE (01:15)
[2021-06-02] MEDS: PIPERACILLIN/TAZOBACTAM SOD 3.375 GM in D5W MINI-BAG PLUS 50 ML IV SCH ×5 (01:24→23:59)
[2021-06-02] MEDS: DICYCLOMINE 10 MG CAP PO SCH ×3 (01:30→20:38)
[2021-06-02] MEDS: POTASSIUM CHLORIDE 10MEQ SR TABLET PO SCH ×2 (01:31→02:34)
[2021-06-02] MEDS: busPIRone 10 MG TAB PO SCH ×3 (01:31→20:38)
[2021-06-02] MEDS: NICOTINE 14 MG/24 HR TRANSDERMAL TD SCH ×2 (01:33→09:47)
--- NOTE | 2021-06-02 06:23 | ECGEPIP ---
[facility] - ED Test Date: 2021-06-01 Pat Name: ALEX JAMES Department: Room: [place] [address] Gender: Female Director Credit Risk: GAGANDEEP : 1950 Requested By: ALVIN Duenas Order Number: [id number] Reading MD: Shahzad Bajwa Measurements Intervals [place] Rate: 90 P: 56 DE: 144 QRS: 43 QRSD: 80 T: 67 QT: 456 QTc: 557 Interpretive Statements Normal sinus rhythm Nonspecific ST-T wave abnormalities Prolonged QTc interval new from tracing done 07-20-16 Electronically Signed on 06-02-2021 6:23:21 EDT by Shahzad Bajwa
[2021-06-02] MEDS ORDERED: SODIUM CHLORIDE 0.9% 1000ML IV ONE (06:30)
[2021-06-02 06:32] LABS: HEMATOCRIT 31.4 % (36.0-47.0); HEMOGLOBIN 10.8 g/dl (12.0-15.5); MEAN CORPUSCULAR HEMOGLOBIN 34.1 pg (27.0-33.0); MEAN CORPUSCULAR HGB CONC 34.4 g/dl (32.0-36.5); MEAN CORPUSCULAR VOLUME 99.1 fl (80.0-96.0); PLATELET COUNT, AUTOMATED 408 10^3/uL (150-450); RED BLOOD COUNT 3.17 10^6/uL (4.00-5.40); WHITE BLOOD COUNT 12.5 10^3/uL (4.0-10.0)
[2021-06-02 06:48] LABS: BLOOD UREA NITROGEN 6 MG/DL (7-18); C REACTIVE PROTEIN QUANTITATIV 4.15 MG/DL (0.00-0.30); CALCIUM LEVEL 6.5 MG/DL (8.8-10.2); CARBON DIOXIDE LEVEL 28 MEQ/L (21-32); CHLORIDE LEVEL 99 MEQ/L (98-107); CREATININE FOR GFR 0.65 MG/DL (0.55-1.30); GLOMERULAR FILTRATION RATE > 60.0 (>45); GLUCOSE, FASTING 88 MG/DL (70-100); MAGNESIUM LEVEL 2.2 MG/DL (1.8-2.4); POTASSIUM SERUM 3.2 MEQ/L (3.5-5.1); SODIUM LEVEL 134 MEQ/L (136-145)
[2021-06-02] MEDS ORDERED: KCL 10MEQ/100ML SWI (KRUN) 10 MEQ in IV 1 EA IV ONE (07:00)
[2021-06-02 07:05] LABS: ERYTHROCYTE SEDIMENTATION RATE 37 mm/hr (0-30)
--- NOTE | 2021-06-02 08:21 | REP ---
INDICATION: septic workup COMPARISON: None. TECHNIQUE: Portable AP view of the chest FINDINGS: The mediastinum and cardiac silhouette are within normal limits for portable technique. The lung marshall demonstrate subtle bibasilar opacities suggesting atelectasis. Skeletal structures are intact. IMPRESSION: Trace bibasilar atelectasis suspected (left greater than right). <Electronically signed by Martin Yeager > 06/02/21 0818
[2021-06-02] MEDS ORDERED: FLUBLOK(EGG FREE)(QUAD)INFLUENZA VACC 0.5ML SYRINGE 18YRS & OLDER IM ONE (09:00)
[2021-06-02] MEDS ORDERED: ATORVASTATIN 20 MG TAB PO SCH (09:00)
--- NOTE | 2021-06-02 09:31 | IPNPDOC ---
Text Note Date of Service The patient was seen on 06/02/21. NOTE Subjective: Patient is a 62-year-old female with a PMHx of DLP, Depression, Diverticulosis, Alcohol and Tobacco dependence who presented to ER on 06/01 with complaints of diarrhea associated with abdominal cramping. Patient has reported 15-20 bowel movements a day. However, very small involvement. On arrival to ER, patient had imaging that revealed new onset ascites, worsening of terminal ileitis and pancolitis compared to recent study from 05/09. Patient was admitted to the hospital service for further evaluation and treatment. General surgery and gastroenterology were called on consultation. Patient was seen and examined at the bedside. Patient reports that she is not experiencing any abdominal pain this morning. Denies any nausea or vomiting. Denies any chest pain, shortness breath, palpitations. Reports that overnight she continued to experience diarrhea reported as watery without any evidence of blood. Denies any urinary discomfort. Objective: Vitals (See below) General: Lying in bed, no acute distress, comfortable, AAOx3 HEENT: NC, AT CVS: RRR, +S1S2 Lungs: Fair air entry b/l, no wheezing, rales or rhonchi Abdomen: Soft, mild distention. No significant tenderness on palpation. Bowel sounds are hypoactive Extremities: Lower extremities are without any edema Imaging: CT abdomen pelvis with contrast 05/07/2021: 1. There are some changes in the cecum which suggest chronic inflammatory changes. There is no fatty infiltration seen today that would suggest an acute inflammatory process. There is unchanged appearing diverticulosis. 2. Fatty infiltration of the liver seen previously has resolved. 3. Chronic uterine myomatous changes appear stable. 4. Other findings as described above. CT abdomen pelvis with IV oral contrast 06/01/2021: 1. There is ascites of uncertain etiology. 2. Evidence of terminal ileitis and pancolitis particularly affecting the cecum and increased from the prior exam. Neoplastic change cannot be ruled out. 3. No evidence of definite free intraperitoneal air, however, small amount of air density in the mesentery adjacent to the terminal ileum cannot be completely ruled out. 4. This was discussed with at the time of this exam. CT Head 06/01: 1. Mild parenchymal atrophy. 2. The degree of ventricular dilatation is normal for age and/or degree of atrophy present. 3. No acute intracranial findings. CXR 06/02: Trace bibasilar atelectasis suspected (left greater than right). Assessment and plan: Abdominal pain / Diarrhea - likely 2/2 inflammatory process, possibly 2/2 infectious process, possibly 2/2 malignancy - Patient has reported multiple episodes of diarrhea without blood over the last 1 month - She remains hemodynamically stable and afebrile - Leukocytosis improving; s/p Lactic acidosis - Normal lipase - GI panel 06/01: Negative - Blood cultures 06/01: Pending - Imaging noted above - c/w Normal saline - c/w Zosyn for intra-abdominal coverage (Day #2) - GI and General surgery have been called on consultation; appreciate their input Hyponatremia - likely 2/2 hypotonic hypovolemic etiology - Sodium is slowly improving - Urine electrolytes pending Hypokalemia - Improving - c/w Supplementation s/p Thrombocytosis - likely 2/2 reactive etiology Transaminitis - Antimitochondrial antibodies negative - GGT elevated 05/09/2021 - Hepatitis panel negative - Will follow trend DLP - Will hold Atorvastatin (re: Elevated AST) Nicotine dependence - Advise smoking cessation - c/w Nicotine patch History of alcohol abuse - Reports quit in 2019; but also noted she drinks 2 to 3 glasses of wine a week Depression - c/w buspirone, citalopram, mirtazapine GI prophylaxis - c/w Protonix DVT prophylaxis - c/w TEDs / Sequentials Disposition: - Awaiting clinical improvement VS,Brandane, I+O VS, Milesbone, I+O Laboratory Tests 06/01/21 13:19 06/01/21 22:26 06/02/21 05:00 Vital Signs Date Time Temp Pulse Resp B/P (MAP) Pulse Ox O2 Delivery O2 Flow Rate FiO2 06/02/21 07:57 110/62 (78) 06/02/21 04:00 97.8 108 18 94 Room Air I&O- Last 24 Hours up to 6 AM 06/02/21 06:00 Intake Total 1150 ml Balance 1150 ml DENISE RAYO MD Jun 02, 2021 09:31
[2021-06-02] MEDS: NS 1,000 ML IV SCH ×2 (09:45→16:33)
[2021-06-02] MEDS: CitaloPRAM (CeleXA) 20 MG TAB PO SCH (09:46)
[2021-06-02] MEDS ORDERED: POTASSIUM CHLORIDE 10MEQ SR TABLET PO ONE ×2 (10:00→13:00)
[2021-06-02] MEDS: predniSONE 50 MG TAB PO SCH (12:04)
[2021-06-02 12:09] LABS: BLOOD UREA NITROGEN 5 MG/DL (7-18); CALCIUM LEVEL 7.1 MG/DL (8.8-10.2); CARBON DIOXIDE LEVEL 25 MEQ/L (21-32); CHLORIDE LEVEL 102 MEQ/L (98-107); GLOMERULAR FILTRATION RATE > 60.0 (>45); GLUCOSE, FASTING 111 MG/DL (70-100); MAGNESIUM LEVEL 1.9 MG/DL (1.8-2.4); PHOSPHORUS LEVEL 1.8 MG/DL (2.5-4.9); POTASSIUM SERUM 3.2 MEQ/L (3.5-5.1); SODIUM LEVEL 135 MEQ/L (136-145)
[2021-06-02] MEDS: NEUTRA-PHOS 1.5 GM PACKET PO SCH ×2 (16:23→20:38)
[2021-06-02] MEDS: MIRTAZAPINE 15 MG TAB PO SCH (20:38)
[2021-06-02] MEDS: PANTOPRAZOLE 40MG VIAL (C9113 PER 1) IV SCH (20:38)
[2021-06-03 00:01] VITALS: BP 98/64
[2021-06-03 04:00] VITALS: BP 111/64
[2021-06-03] MEDS: NS 1,000 ML IV SCH ×3 (05:28→23:30)
[2021-06-03 05:31] LABS: HEMATOCRIT 32.5 % (36.0-47.0); MEAN CORPUSCULAR HGB CONC 33.8 g/dl (32.0-36.5); MEAN CORPUSCULAR VOLUME 100.3 fl (80.0-96.0); PLATELET COUNT, AUTOMATED 390 10^3/uL (150-450); RED BLOOD COUNT 3.24 10^6/uL (4.00-5.40); WHITE BLOOD COUNT 11.1 10^3/uL (4.0-10.0)
[2021-06-03 05:54] LABS: ERYTHROCYTE SEDIMENTATION RATE 35 mm/hr (0-30)
[2021-06-03 05:57] LABS: ALBUMIN 1.8 GM/DL (3.2-5.2); ALT/SGPT 28 U/L (12-78); BILIRUBIN,DIRECT 0.3 MG/DL (0.0-0.2); BILIRUBIN,TOTAL 0.6 MG/DL (0.2-1.0); BLOOD UREA NITROGEN 3 MG/DL (7-18); C REACTIVE PROTEIN QUANTITATIV 3.29 MG/DL (0.00-0.30); CALCIUM LEVEL 6.8 MG/DL (8.8-10.2); CARBON DIOXIDE LEVEL 25 MEQ/L (21-32); CHLORIDE LEVEL 109 MEQ/L (98-107); CREATININE FOR GFR 0.52 MG/DL (0.55-1.30); GLOMERULAR FILTRATION RATE > 60.0 (>45); GLUCOSE, FASTING 96 MG/DL (70-100); PHOSPHORUS LEVEL 2.2 MG/DL (2.5-4.9); SODIUM LEVEL 141 MEQ/L (136-145)
[2021-06-03] MEDS: PIPERACILLIN/TAZOBACTAM SOD 3.375 GM in D5W MINI-BAG PLUS 50 ML IV SCH ×4 (05:58→23:29)
[2021-06-03] MEDS ORDERED: POTASSIUM PHOSPHATE INJ 20 MMOL in D5W 250 ML IV ONE (07:00)
[2021-06-03 08:00] VITALS: BP 101/65
[2021-06-03] MEDS: POTASSIUM CHLORIDE 10MEQ SR TABLET PO SCH ×2 (08:59→21:04)
[2021-06-03] MEDS: NEUTRA-PHOS 1.5 GM PACKET PO SCH ×3 (08:59→22:32)
[2021-06-03] MEDS: DICYCLOMINE 10 MG CAP PO SCH ×2 (08:59→21:03)
[2021-06-03] MEDS: predniSONE 50 MG TAB PO SCH (08:59)
[2021-06-03] MEDS: busPIRone 10 MG TAB PO SCH ×2 (08:59→21:04)
[2021-06-03] MEDS: CitaloPRAM (CeleXA) 20 MG TAB PO SCH (08:59)
[2021-06-03] MEDS: NICOTINE 14 MG/24 HR TRANSDERMAL TD SCH (09:00)
--- NOTE | 2021-06-03 09:17 | IPNPDOC ---
Text Note Date of Service The patient was seen on 06/03/21. NOTE Subjective: Patient is a 62-year-old female with a PMHx of DLP, Depression, Diverticulosis, Alcohol and Tobacco dependence who presented to ER on 06/01 with complaints of diarrhea associated with abdominal cramping. Patient has reported 15-20 bowel movements a day. However, very small involvement. On arrival to ER, patient had imaging that revealed new onset ascites, worsening of terminal ileitis and pancolitis compared to recent study from 05/09. Patient was admitted to the hospital service for further evaluation and treatment. General surgery and gastroenterology were called on consultation. Patient was seen and examined at the bedside. Patient reports that she feels significantly better compared to yesterday. She still experiences diarrhea. Denies any abdominal pain. Has not experience any nausea, vomiting. Denies chest pain, short of breath, palpations, or cough. Denies any urinary discomfort. Objective: Vitals (See below) General: Patient is sitting up in bed, has been ambulating in the room, appears comfortable, not in any acute distress. She is awake, alert, oriented to person, place and time HEENT: Atraumatic, normocephalic CVS: +S1S2 Lungs: There appears to be fair air entry bilaterally without auscultated evidence of crackles, wheezing or rhonchi Abdomen: Abdomen is soft, no distention or tenderness Extremities: No edema appreciated Imaging: CT abdomen pelvis with contrast 05/07/2021: 1. There are some changes in the cecum which suggest chronic inflammatory changes. There is no fatty infiltration seen today that would suggest an acute inflammatory process. There is unchanged appearing diverticulosis. 2. Fatty infiltration of the liver seen previously has resolved. 3. Chronic uterine myomatous changes appear stable. 4. Other findings as described above. CT abdomen pelvis with IV oral contrast 06/01/2021: 1. There is ascites of uncertain etiology. 2. Evidence of terminal ileitis and pancolitis particularly affecting the cecum and increased from the prior exam. Neoplastic change cannot be ruled out. 3. No evidence of definite free intraperitoneal air, however, small amount of air density in the mesentery adjacent to the terminal ileum cannot be completely ruled out. 4. This was discussed with at the time of this exam. CT Head 06/01: 1. Mild parenchymal atrophy. 2. The degree of ventricular dilatation is normal for age and/or degree of atrophy present. 3. No acute intracranial findings. CXR 06/02: Trace bibasilar atelectasis suspected (left greater than right). Assessment and plan: Abdominal pain / Diarrhea - likely 2/2 inflammatory process, possibly 2/2 infectious process, possibly 2/2 malignancy - Reports diarrhea perists, but abdominal spams have resolved - Hemodynamically stable and afebrile - Leukocytosis and CRP trending down; s/p Lactic acidosis - Normal lipase - GI panel 06/01: Negative - Blood cultures 06/01: No growth at 24 hours - Imaging noted above - c/w Normal saline - c/w Zosyn for intra-abdominal coverage (Day #3) - GI and General surgery have been called on consultation; plan for colonoscopy tomorrow s/p Hyponatremia - likely 2/2 hypotonic hypovolemic etiology - Sodium is slowly improving - Urine electrolytes pending Hypokalemia - c/w Supplementation Hypophosphatemia - Will supplement s/p Thrombocytosis - likely 2/2 reactive etiology Transaminitis - Trending down - Antimitochondrial antibodies negative - GGT elevated 05/09/2021 - Hepatitis panel negative DLP - Will hold Atorvastatin (re: Elevated AST) Nicotine dependence - Advise smoking cessation - c/w Nicotine patch History of alcohol abuse - Reports quit in 2019; but also noted she drinks 2 to 3 glasses of wine a week Depression - c/w buspirone, citalopram, mirtazapine GI prophylaxis - c/w Protonix DVT prophylaxis - c/w TEDs / Sequentials Disposition: - Awaiting clinical improvement - Colonoscopy scheduled for tomorrow VS,Fishbone, I+O VS, Fishbone, I+O Laboratory Tests 06/02/21 11:32 06/03/21 05:10 Vital Signs Date Time Temp Pulse Resp B/P (MAP) Pulse Ox O2 Delivery O2 Flow Rate FiO2 06/03/21 04:00 98.4 66 18 111/64 (80) 100 Room Air I&O- Last 24 Hours up to 6 AM 06/03/21 06:00 Intake Total 3730 ml Output Total 1250 ml Balance 2480 ml DENISE RAYO MD Jun 03, 2021 09:17
[2021-06-03 12:00] VITALS: BP 113/61
[2021-06-03] MEDS ORDERED: GOLYTELY SOLN 4000 ML BTL PO ONE (14:25)
[2021-06-03] MEDS ORDERED: BOUDREAUX'S BUTT PASTE TOP PRN (14:50)
[2021-06-03 16:00] VITALS: BP 101/65
--- NOTE | 2021-06-03 18:13 | CR.PDOC ---
General Date of Consultation: Jun 03, 2021 Referring Provider: DENISE RAYO MD Attending Physician: INGRIS ARZATE MD Consultation Referring physician / PCP : Dr. Rayo, Reason for consult: Abnormal CT scan HPI: 71-year-old female patient with HLD, Chronic active smoker, chronic alcohol use, presented to the ED with abdominal pain and chronic diarrhea. Patient had CT abdomen in ER and GI was consulted for abnormal CT scan. Patient reports having intermittent flare up of symptoms for the past 1 year, which she reports as bouts of abdominal pain, with nausea and sometimes vomiting and severe diarrhea. Patient reports having the sensation of pressure in rectum and associated with loose but small bowel movements, multiple times a day. She also reports having a severe bout in past and was previously seen in [facility]. This past episodes is persistent for the past 1 month. OFF note: Patient reports having colonoscopy around 3 years ago in [facility] by surgeon and was noted to have polyps that could not be removed. As per patient she was recommended to follow up in GI clinic but she did not. Pertinent negative GI symptoms: Patient denies early satiety or unintentional weight loss, hematemesis, melena. Review of Systems: GI: as stated above CVS: No chest pain, No palpitations, No leg swelling RS: No Shortness of breath, No Wheezing SPOOL WINDER: No loss of consciousness, No focal motor weakness., Hematology: No easy bruising, No gum bleeding, Musculoskeletal: No joint pain, ambulating well. : No blood in urine, No burning sensation of the urine ENT: No ear discharge/ pain, No dysphagia. Eyes: No photophobia. Skin: No rash Home medications: reviewed. No Plavix and No anticoagulants Medical h/o: As above. Surgical h/o: None on abdomen. Social h/o: social Alcohol, active smoking, denies IVDA/ drugs. Family h/o of GI cancers - None Prior Endoscopies: --- Colonoscopy [place] [address] Rangel- reviewed the report in EMR. ( noted tubular adenoma and SSP in cecum partial removal). Prior GI evaluation: None in [facility] Exam: Vitals: reviewed General: Alert and oriented x 3, not in acute distress HEENT: No pallor, no icterus. Normal oropharynx, NO cervical lymphadenopathy. Chest: symmetric with bilateral air entry, CVS: S1, S2 heard, Abdomen: non-distended, soft, non-tender, no rigidity or guarding, no palpable masses, normal bowel sounds heard. Rectal exam: Patient refused / Deferred at this time in view of scheduled colonoscopy. Extremities: pulses palpable, no pedal edema, SPOOL WINDER: no focal motor or sensory deficits. Moves all extremities Skin: no rash. Labs: reviewed. Imaging: reviewed. as per the radiology report -- ascites of uncertain etiology. Evidence of terminal ileitis and pancolitis particularly affecting the cecum and increased from the prior exam. Neoplastic change cannot be ruled out. No evidence of definite free intraperitoneal air, however, small amount of air density in the mesentery adjacent to the terminal ileum cannot be completely ruled out. Stool panel negative. Impression: -- Chronic diarrhea with change in stool caliber and watery stools with abdominal painmostly lower abdomen and prior intermittent flare ups with past imaging showing terminal ileal and cecal abnormalities and worsening changes noted in CT abdomen, done in this admission, -- DDxLikely IBD with flare up vs rule out Cecal mass. -- Free fluid in abdomen with focal small focus of air adjacent to Terminal ileumDDx rule out fistula or Diverticulum vs IBD flare vs Local micro perforation. Recommendations: -- Patient educated about the prior test results and all questions answered. -- Clear liquid diet for now. -- Complete septic work up -- Follow surgery recommendations. -- If the septic work up is negative, then as the suspicion for IBD is high, will consider steroids with tapering course. -- Will schedule for inpatient Colonoscopy in view of the abnormal CT scan. Patient educated about the procedure, indications, risks (including but not limited to bleeding, infection, perforation, anesthesia risks, including ), benefits and all alternatives including conservative measures without intervention. Patient verbalized understanding and consented for the procedure. -- Please follow operative note for post procedure recommendations. 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 -- Plan of care educated to patient and patient verbalized understanding and agreed. All questions answered. -- Recommendations communicated to primary team. . Vital Signs/I&O Vital Signs Date Time Temp Pulse Resp B/P (MAP) Pulse Ox O2 Delivery O2 Flow Rate FiO2 06/03/21 16:00 98.2 84 18 101/65 (77) 93 Room Air I&O- Last 24 Hours up to 6 AM 06/03/21 06:00 Intake Total 3730 ml Output Total 1250 ml Balance 2480 ml Laboratory Data Labs 24H Laboratory Tests 2 06/03/21 05:10: Nucleated Red Blood Cells % (auto) 0.0, Erythrocyte Sedimentation Rate 35H, Anion Gap 7L, Glomerular Filtration Rate > 60.0, Calcium Level 6.8L, Phosphorus Level 2.2#L, Total Bilirubin 0.6, Direct Bilirubin 0.3H, Aspartate Amino Transf (AST/SGOT) 47H, Alanine Aminotransferase (ALT/SGPT) 28, Alkaline Phosphatase 149H, C-Reactive Protein, Quantitative 3.29H, Total Protein 5.0L, Albumin 1.8L, Albumin/Globulin Ratio 0.6L CBC/BMP Laboratory Tests 06/03/21 05:10 Microbiology Microbiology 06/02/21 Stool Occult Blood (GREGOR) - Final, Complete 06/02/21 Urine Culture - Final, Complete 06/02/21 Stool Lactoferrin - Final, Complete 06/02/21 Gastrointestinal Tract Panel (PCR) - Final, Complete 06/01/21 Blood Culture - Preliminary, Resulted No growth after 24 hours . All specim... 06/01/21 Blood Culture - Preliminary, Resulted No growth after 24 hours . All specim... 06/01/21 Blood Culture - Preliminary, Resulted No Growth after 48 hours. All Specime... 06/01/21 Blood Culture - Preliminary, Resulted No Growth after 48 hours. All Specime... 06/01/21 Gastrointestinal Tract Panel (PCR) - Final, Complete Allergies Coded Allergies: milk (Verified Adverse Reaction, Unknown, GI upset, 06/26/19) Home Medications Scheduled Atorvastatin Calcium (Atorvastatin Calcium) 80 Mg Tab, 80 MG PO DAILY, (Reported) Buspirone HCl (Buspirone HCl) 10 Mg Tablet, 10 MG PO BID, (Reported) Citalopram Hydrobromide (Citalopram HBr) 20 Mg Tablet, 20 MG PO DAILY, (Reported) Mirtazapine (Remeron) 15 Mg Tablet, 15 MG PO QHS, (Reported) INGRIS ARZATE MD Jun 03, 2021 18:13
[2021-06-03] MEDS: PANTOPRAZOLE 40MG VIAL (C9113 PER 1) IV SCH (21:03)
[2021-06-03] MEDS: MIRTAZAPINE 15 MG TAB PO SCH (21:04)
[2021-06-03 21:54] VITALS: BP 136/79
[2021-06-04] MEDS: PIPERACILLIN/TAZOBACTAM SOD 3.375 GM in D5W MINI-BAG PLUS 50 ML IV SCH ×3 (05:15→18:37)
[2021-06-04 06:00] VITALS: BP 106/56
[2021-06-04 09:43] LABS: HEMOGLOBIN 11.2 g/dl (12.0-15.5); MEAN CORPUSCULAR HEMOGLOBIN 34.4 pg (27.0-33.0); MEAN CORPUSCULAR HGB CONC 33.9 g/dl (32.0-36.5); MEAN CORPUSCULAR VOLUME 101.2 fl (80.0-96.0); PLATELET COUNT, AUTOMATED 377 10^3/uL (150-450); RED BLOOD COUNT 3.26 10^6/uL (4.00-5.40); WHITE BLOOD COUNT 13.3 10^3/uL (4.0-10.0)
[2021-06-04 10:13] LABS: ERYTHROCYTE SEDIMENTATION RATE 35 mm/hr (0-30)
[2021-06-04 10:19] LABS: ALT/SGPT 43 U/L (12-78); BILIRUBIN,DIRECT 0.3 MG/DL (0.0-0.2); BILIRUBIN,TOTAL 0.7 MG/DL (0.2-1.0); BLOOD UREA NITROGEN 2 MG/DL (7-18); C REACTIVE PROTEIN QUANTITATIV 1.72 MG/DL (0.00-0.30); CALCIUM LEVEL 6.7 MG/DL (8.8-10.2); CARBON DIOXIDE LEVEL 21 MEQ/L (21-32); CHLORIDE LEVEL 112 MEQ/L (98-107); CREATININE FOR GFR 0.51 MG/DL (0.55-1.30); GLOMERULAR FILTRATION RATE > 60.0 (>45); GLUCOSE, FASTING 78 MG/DL (70-100); PHOSPHORUS LEVEL 2.2 MG/DL (2.5-4.9); POTASSIUM SERUM 3.4 MEQ/L (3.5-5.1); SODIUM LEVEL 142 MEQ/L (136-145); TOTAL PROTEIN 5.4 GM/DL (6.4-8.2)
[2021-06-04] MEDS: predniSONE 50 MG TAB PO SCH (10:33)
[2021-06-04] MEDS: busPIRone 10 MG TAB PO SCH ×2 (10:33→20:29)
[2021-06-04] MEDS: DICYCLOMINE 10 MG CAP PO SCH ×2 (10:33→20:28)
[2021-06-04] MEDS: CitaloPRAM (CeleXA) 20 MG TAB PO SCH (10:34)
[2021-06-04] MEDS: NEUTRA-PHOS 1.5 GM PACKET PO SCH ×3 (10:34→20:27)
[2021-06-04] MEDS: POTASSIUM CHLORIDE 10MEQ SR TABLET PO SCH ×2 (10:34→20:29)
[2021-06-04] MEDS: NICOTINE 14 MG/24 HR TRANSDERMAL TD SCH (10:36)
[2021-06-04 12:24] LABS: FOLATE 4.3 NG/ML (>5.4)
--- NOTE | 2021-06-04 12:43 | IPNPDOC ---
Text Note Date of Service The patient was seen on 06/04/21. NOTE Subjective: Patient is a 62-year-old female with a PMHx of DLP, Depression, Diverticulosis, Alcohol and Tobacco dependence who presented to ER on 06/01 with complaints of diarrhea associated with abdominal cramping. Patient has reported 15-20 bowel movements a day. However, very small involvement. On arrival to ER, patient had imaging that revealed new onset ascites, worsening of terminal ileitis and pancolitis compared to recent study from 05/09. Patient was admitted to the hospital service for further evaluation and treatment. General surgery and gastroenterology were called on consultation. Patient was seen and examined at the bedside. Patient reports that they feel fine this morning. Denies any CP, SOB, palpitations or cough. Denies any si gnificant abdominal pain, has completed bowel prep overnight. Denies any urinary discomfort. Objective: Vitals (See below) General: Sitting up in bed, appears comfortable, awake / alert, oriented x3 HEENT: AT, NC CVS: +S1S2 Lungs: Air entry appears fair bilaterally, no rhonchi / rales / wheezing on auscultation Abdomen: Soft, non-distended, no appreciated tenderness Extremities: LE are without edema Imaging: CT abdomen pelvis with contrast 05/07/2021: 1. There are some changes in the cecum which suggest chronic inflammatory changes. There is no fatty infiltration seen today that would suggest an acute inflammatory process. There is unchanged appearing diverticulosis. 2. Fatty infiltration of the liver seen previously has resolved. 3. Chronic uterine myomatous changes appear stable. 4. Other findings as described above. CT abdomen pelvis with IV oral contrast 06/01/2021: 1. There is ascites of uncertain etiology. 2. Evidence of terminal ileitis and pancolitis particularly affecting the cecum and increased from the prior exam. Neoplastic change cannot be ruled out. 3. No evidence of definite free intraperitoneal air, however, small amount of air density in the mesentery adjacent to the terminal ileum cannot be completely ruled out. 4. This was discussed with at the time of this exam. CT Head 06/01: 1. Mild parenchymal atrophy. 2. The degree of ventricular dilatation is normal for age and/or degree of atrophy present. 3. No acute intracranial findings. CXR 06/02: Trace bibasilar atelectasis suspected (left greater than right). Assessment and plan: Abdominal pain / Diarrhea - likely 2/2 inflammatory process, possibly 2/2 infectious process, possibly 2/2 malignancy - Diarrhea has occurred overnight - however has received bowel prep - Hemodynamically stable / Afebrile - Leukocytosis - however this is likely 2/2 corticosteroid use - CRP continues to improve - s/p Lactic acidosis - Normal lipase - GI panel 06/01: Negative - Blood cultures 06/01: No growth at 48 hours - Imaging noted above - c/w Normal saline - c/w Zosyn for intra-abdominal coverage (Day #4) - GI and General surgery have been called on consultation; plan for colonoscopy today s/p Hyponatremia - likely 2/2 hypotonic hypovolemic etiology - Sodium is slowly improving - Urine electrolytes pending Hypokalemia - Will supplement Hypophosphatemia - Will adjust supplementation s/p Thrombocytosis - likely 2/2 reactive etiology Transaminitis - Trending down - Antimitochondrial antibodies negative - GGT elevated 05/09/2021 - Hepatitis panel negative DLP - Will hold Atorvastatin (re: Elevated AST) Nicotine dependence - Advise smoking cessation - c/w Nicotine patch History of alcohol abuse - Reports quit in 2019; but also noted she drinks 2 to 3 glasses of wine a week Depression - c/w buspirone, citalopram, mirtazapine GI prophylaxis - c/w Protonix DVT prophylaxis - c/w TEDs / Sequentials Disposition: - Awaiting clinical improvement - Colonoscopy scheduled for today VS,Fishbone, I+O VS, Fishbone, I+O Laboratory Tests 06/04/21 09:25 Vital Signs Date Time Temp Pulse Resp B/P (MAP) Pulse Ox O2 Delivery O2 Flow Rate FiO2 06/04/21 06:00 97.8 84 18 106/56 (73) 99 Room Air I&O- Last 24 Hours up to 6 AM 06/04/21 05:59 Intake Total 3480 ml Output Total 1600 ml Balance 1880 ml DENISE RAYO MD Jun 04, 2021 12:43
[2021-06-04] MEDS: NS 1,000 ML IV SCH (12:47)
[2021-06-04] MEDS ORDERED: POTASSIUM CHLORIDE 10MEQ SR TABLET PO ONE (13:00)
[2021-06-04 14:00] VITALS: BP 103/71
[2021-06-04] MEDS ORDERED: LIDOCAINE 2% 100MG/5ML SDV (FOR ANES.) As Ordered ONE (15:58)
[2021-06-04] MEDS ORDERED: propofoL 200 MG/20 ML VIAL As Ordered ONE ×3 (15:58→17:32)
[2021-06-04] MEDS ORDERED: ALBUTEROL 6.7GM INHALER **FOR ANES. CART/OMNICELL ONLY As Ordered ONE (17:11)
--- NOTE | 2021-06-04 17:57 | ROOR ---
Patient Name: Hilary Vidal Procedure Date: 06/04/2021 3:14 PM Date of : 1950 Age: 71 Gender: Female Note Status: Finalized Procedure: Colonoscopy Indications: Abnormal CT of the GI tract Providers: Hermilo Andres MD Referring MD: 2. Inpatient 2. Inpatient Requesting Provider: Medicines: Monitored Anesthesia Care Complications: No immediate complications. Procedure: Pre-Anesthesia Assessment: - Prior to the procedure, a History and Physical was performed, and patient medications and allergies were reviewed. The patient is competent. The risks and benefits of the procedure and the sedation options and risks were discussed with the patient. All questions were answered and informed consent was obtained. Patient identification and proposed procedure were verified by the physician, the nurse and the anesthesiologist in the procedure room. Mental Status Examination: alert and oriented. Airway Examination: normal oropharyngeal airway and neck mobility. Respiratory Examination: clear to auscultation. CV Examination: normal. Prophylactic Antibiotics: The patient does not require prophylactic antibiotics. Prior Anticoagulants: The patient has taken no previous anticoagulant or antiplatelet agents. ASA Grade Assessment: III - A patient with severe systemic disease. After reviewing the risks and benefits, the patient was deemed in satisfactory condition to undergo the procedure. The anesthesia plan was to use monitored anesthesia care (MAC). Immediately prior to administration of medications, the patient was re-assessed for adequacy to receive sedatives. The heart rate, respiratory rate, oxygen saturations, blood pressure, adequacy of pulmonary ventilation, and response to care were monitored throughout the procedure. The physical status of the patient was re-assessed after the procedure. The Colonoscope was introduced through the anus and advanced to the terminal ileum, with identification of the appendiceal orifice and IC valve. The colonoscopy was performed without difficulty. The patient tolerated the procedure well. The quality of the bowel preparation was good. The terminal ileum, ileocecal valve, appendiceal orifice, and rectum were photographed. Scope insertion time was 3 minutes. Scope withdrawal time was 20 minutes. The total duration of the procedure was 23 minutes. Findings: The perianal and digital rectal examinations were normal. The terminal ileum appeared normal. Five sessile polyps were found in the transverse colon, ascending colon and cecum. The polyps were 5 to 20 mm in size. These polyps were removed with a hot snare. Resection and retrieval were complete. Verification of patient identification for the specimen was done by the physician and nurse using the patient's name, date and medical record number. Estimated blood loss was minimal. To close a defect after polypectomy, three hemostatic clips were successfully placed. There was no bleeding at the end of the procedure. Three carpet-like, flat and sessile polyps were found in the splenic flexure. The polyps were 20 to 25 mm in size. Polypectomy was not attempted due to polyp size (too large to be excised). Multiple small and large-mouthed diverticula were found from sigmoid to cecum. There was narrowing of the colon in association with the diverticular opening. There was evidence of diverticular spasm. Mely-diverticular erythema was seen. Non-bleeding external and internal hemorrhoids were found during retroflexion. The hemorrhoids were medium-sized. Impression: - The examined portion of the ileum was normal. - Five 5 to 20 mm polyps in the transverse colon, in the ascending colon and in the cecum, removed with a hot snare. Resected and retrieved. Clips were placed. - Three 20 to 25 mm polyps at the splenic flexure. Resection not attempted. - Severe diverticulosis from sigmoid to cecum. There was narrowing of the colon in association with the diverticular opening. There was evidence of diverticular spasm. Mely-diverticular erythema was seen. - Non-bleeding external and internal hemorrhoids. Recommendation: - Patient has a contact number available for emergencies. The signs and symptoms of potential delayed complications were discussed with the patient. Return to normal activities tomorrow. Written discharge instructions were provided to the patient. - High fiber diet. - Continue present medications. - Can taper off or discontinue the steroids. - Use original regular Metamucil one tablespoon PO daily. - Miralax 1 capful (17 grams) in 8 ounces of water PO BID for atleast 7 days and then adjust dose to have one to two soft bowel movements daily. - Await pathology results. - Repeat colonoscopy at next available appointment (within 3 months) for retreatment and for endoscopic mucosal resection of the large polyps. - Telephone GI clinic for pathology results in 2 weeks. - Telephone GI clinic to schedule appointment. - Return to primary care physician. Procedure Code(s): --- Professional --- 11756, Colonoscopy, flexible; with removal of tumor(s), polyp(s), or other lesion(s) by snare technique Diagnosis Code(s): --- Professional --- K64.8, Other hemorrhoids K63.5, Polyp of colon K57.30, Diverticulosis of large intestine without perforation or abscess without bleeding R93.3, Abnormal findings on diagnostic imaging of other parts of digestive tract CPT copyright 2019 [employer]. All rights reserved. The codes documented in this report are preliminary and upon timekeeping supervisor review may be revised to meet current compliance requirements. Hermilo Andres MD Hermilo Andres MD 06/04/2021 5:57:29 PM Electronically signed by Hermilo Andres MD Number of Addenda: 0 Note Initiated On: 06/04/2021 3:14 PM Estimated Blood Loss: Estimated blood loss was minimal.
[2021-06-04] MEDS ORDERED: LR 1,000 ML IV SCH (18:40)
[2021-06-04] MEDS ORDERED: ALBUTEROL SULFATE 2.5 MG/0.5 ML INH NEB SOLN INH ONE (18:40)
[2021-06-04] MEDS ORDERED: ONDANSETRON 4MG/2ML VIAL IV PRN (18:40)
[2021-06-04 18:50] VITALS: BP 109/74
[2021-06-04 19:20] VITALS: BP 121/76
[2021-06-04] MEDS: MIRTAZAPINE 15 MG TAB PO SCH (20:29)
[2021-06-04] MEDS: PANTOPRAZOLE 40MG VIAL (C9113 PER 1) IV SCH (20:29)
[2021-06-04 20:31] VITALS: BP 106/79
[2021-06-04] MEDS: MIRALAX *UNIT DOSE* 17GM PACKET PO SCH (21:00)
[2021-06-04 21:29] VITALS: BP 103/74
[2021-06-04] MEDS: METAMUCIL (PSYLLIUM) PACKET PO SCH (22:53)
[2021-06-05 01:44] VITALS: BP 122/74
[2021-06-05] MEDS: PIPERACILLIN/TAZOBACTAM SOD 3.375 GM in D5W MINI-BAG PLUS 50 ML IV SCH ×2 (02:01→05:22)
[2021-06-05] MEDS: NS 1,000 ML IV SCH (05:23)
[2021-06-05 05:30] VITALS: BP 118/73
[2021-06-05 08:47] LABS: HEMATOCRIT 31.4 % (36.0-47.0); HEMOGLOBIN 10.3 g/dl (12.0-15.5); MEAN CORPUSCULAR HEMOGLOBIN 33.7 pg (27.0-33.0); MEAN CORPUSCULAR HGB CONC 32.8 g/dl (32.0-36.5); MEAN CORPUSCULAR VOLUME 102.6 fl (80.0-96.0); PLATELET COUNT, AUTOMATED 326 10^3/uL (150-450); RED BLOOD COUNT 3.06 10^6/uL (4.00-5.40); WHITE BLOOD COUNT 11.9 10^3/uL (4.0-10.0)
[2021-06-05] MEDS: MIRALAX *UNIT DOSE* 17GM PACKET PO SCH (09:00)
[2021-06-05 09:15] LABS: ERYTHROCYTE SEDIMENTATION RATE 18 mm/hr (0-30)
[2021-06-05] MEDS: NEUTRA-PHOS 1.5 GM PACKET PO SCH (09:43)
[2021-06-05] MEDS: METAMUCIL (PSYLLIUM) PACKET PO SCH (09:44)
[2021-06-05] MEDS: NICOTINE 14 MG/24 HR TRANSDERMAL TD SCH (09:44)
[2021-06-05] MEDS: predniSONE 50 MG TAB PO SCH (09:44)
[2021-06-05] MEDS: DICYCLOMINE 10 MG CAP PO SCH (09:44)
[2021-06-05] MEDS: POTASSIUM CHLORIDE 10MEQ SR TABLET PO SCH (09:45)
[2021-06-05] MEDS: CitaloPRAM (CeleXA) 20 MG TAB PO SCH (09:45)
[2021-06-05] MEDS: busPIRone 10 MG TAB PO SCH (09:45)
[2021-06-05 09:49] LABS: ALT/SGPT 49 U/L (12-78); BILIRUBIN,DIRECT 0.4 MG/DL (0.0-0.2); BILIRUBIN,TOTAL 0.5 MG/DL (0.2-1.0); BLOOD UREA NITROGEN 3 MG/DL (7-18); C REACTIVE PROTEIN QUANTITATIV 1.56 MG/DL (0.00-0.30); CALCIUM LEVEL 6.5 MG/DL (8.8-10.2); CARBON DIOXIDE LEVEL 16 MEQ/L (21-32); CHLORIDE LEVEL 116 MEQ/L (98-107); CREATININE FOR GFR 0.58 MG/DL (0.55-1.30); GLOMERULAR FILTRATION RATE > 60.0 (>45); GLUCOSE, FASTING 95 MG/DL (70-100); PHOSPHORUS LEVEL 1.8 MG/DL (2.5-4.9); POTASSIUM SERUM 3.8 MEQ/L (3.5-5.1); SODIUM LEVEL 141 MEQ/L (136-145); TOTAL PROTEIN 5.1 GM/DL (6.4-8.2)
[2021-06-05] MEDS ORDERED: POTASSIUM PHOSPHATE INJ 30 MMOL in D5W 500 ML IV ONE (11:00)
[2021-06-05] MEDS ORDERED: MIRA1POW3 PO (11:09)
[2021-06-05] MEDS ORDERED: NEUTPW PO (11:09)
[2021-06-05] MEDS ORDERED: AUGM875T28 PO (11:09)
[2021-06-05] MEDS ORDERED: POTA-136 PO (11:09)
[2021-06-05] MEDS ORDERED: ACET1TAB55 PO (11:09)
[2021-06-05] MEDS ORDERED: META1POW PO (11:09)
--- NOTE | 2021-06-05 11:19 | DS.PDOC ---
Discharge Summary General Date of Admission Jun 01, 2021 at 18:15 Date of Discharge 06/05/21 Discharge Summary PROCEDURES PERFORMED DURING STAY: Colonoscopy by Dr. Andres on 06/04/21 Findings: The perianal and digital rectal examinations were normal. The terminal ileum appeared normal. Five sessile polyps were found in the transverse colon, ascending colon and cecum. The polyps were 5 to 20 mm in size. These polyps were removed with a hot snare. Resection and retrieval were complete. Verification of patient identification for the specimen was done by the physician and nurse using the patient's name, date and medical record number. Estimated blood loss was minimal. To close a defect after polypectomy, three hemostatic clips were successfully placed. There was no bleeding at the end of the procedure. Three carpet-like, flat and sessile polyps were found in the splenic flexure. The polyps were 20 to 25 mm in size. Polypectomy was not attempted due to polyp size (too large to be excised). Multiple small and large-mouthed diverticula were found from sigmoid to cecum. There was narrowing of the colon in association with the diverticular opening. There was evidence of diverticular spasm. Mely-diverticular erythema was seen. Non-bleeding external and internal hemorrhoids were found during retroflexion. The hemorrhoids were medium-sized. Impression: - The examined portion of the ileum was normal. - Five 5 to 20 mm polyps in the transverse colon, in the ascending colon and in the cecum, removed with a hot snare. Resected and retrieved. Clips were placed. - Three 20 to 25 mm polyps at the splenic flexure. Resection not attempted. - Severe diverticulosis from sigmoid to cecum. There was narrowing of the colon in association with the diverticular opening. There was evidence of diverticular spasm. Mely-diverticular erythema was seen. - Non-bleeding external and internal hemorrhoids. Recommendation: - Patient has a contact number available for emergencies. The signs and symptoms of potential delayed complications were discussed with the patient. Return to normal activities tomorrow. Written discharge instructions were provided to the patient. - High fiber diet. - Continue present medications. - Can taper off or discontinue the steroids. - Use original regular Metamucil one tablespoon PO daily. - Miralax 1 capful (17 grams) in 8 ounces of water PO BID for atleast 7 days and then adjust dose to have one to two soft bowel movements daily. - Await pathology results. - Repeat colonoscopy at next available appointment (within 3 months) for retreatment and for endoscopic mucosal resection of the large polyps. - Telephone GI clinic for pathology results in 2 weeks. - Telephone GI clinic to schedule appointment. - Return to primary care physician. ADMITTING DIAGNOSES: Abdominal pain Hyponatremia Hypokalemia Transaminitis Depression Macrocytosis Hx of alcohol use disorder DLP DISCHARGE DIAGNOSES: Abdominal pain possibly 2/2 inflammatory vs malignant process Hyponatremia Hypokalemia Transaminitis Depression Macrocytosis Hx of alcohol use disorder DLP Hypophosphatemia COMPLICATIONS/CHIEF COMPLAINT: Diarrhea. HISTORY OF PRESENT ILLNESS: Obtained from H&P: "Patient is a 71-year-old female who presented to the ED today with abdominal pain and diarrhea that she said has persisted since being released from the hospital in [place] last year, but told ER staff it has been going on for over a month. She says the diarrhea is constant and has 15-20 episodes a day. She says these episodes are accompanied by bad cramping which resolves post bowel movement, but says diarrhea leaks out upon standing up after bowel movement. Does not know the point where the day or so persistent that she is afraid to leave the house out of fear of having an accident. After bowel movements she says she is occasionally lightheaded due to straining. She has gotten so lightheaded she falls, most recently 3 days ago and she recalls hitting her head. She denies ever losing consciousness and says returns to baseline within a couple minutes. She says she has tried Gas-X and Pepto-Bismol but neither has provided any relief. Patient also endorses not having any appetite and has been decreasing over the last several weeks. She says she can eat about 3 spoonfuls of mashed potatoes and then feels full. Patient sees Dr. Vazquez at the [facility]. Patient endorses that she has been told that her labs were fine and within normal limits and to take Pepto- Bismol and a GI referral will be made. Her CT abdomen showed mild colitis and her labs showed leukocytosis and a referral was made to Dr. Lebron to evaluate right upper quadrant pain and diarrhea." HOSPITAL COURSE: Abdominal pain / Diarrhea - likely 2/2 inflammatory process, possibly 2/2 infectious process, possibly 2/2 malignancy - Diarrhea much improved - Hemodynamically stable / Afebrile - Leukocytosis, likely 2/2 corticosteroid use - CRP trending down - s/p Lactic acidosis - Normal lipase - GI panel 06/01: Negative - final blood cultures negative. GI panel negative. Fecal occult blood negative. - S/p Zosyn for intra-abdominal coverage (4 days), per Dr. Andres, no additional abx needed. - GI and General surgery have been called on consultation; s/p colonoscopy (see report above). - Biopsy results reported: tubular adenoma. Needs repeat colonoscopy in 3 months. - cleared for DC from GI standpoint by Dr. Andres. s/p Hyponatremia - likely 2/2 hypotonic hypovolemic etiology - Sodium is slowly improving - Urine electrolytes pending Hypokalemia - Will supplement Hypophosphatemia -DC home with K-phos neutral TID x 7 days -advised close PCP f/u to repeat phosphorous level s/p Thrombocytosis - likely 2/2 reactive etiology Transaminitis - Trending down - Antimitochondrial antibodies negative - GGT elevated 05/09/2021 - Hepatitis panel negative DLP - Will hold Atorvastatin (re: Elevated AST) Nicotine dependence - Advise smoking cessation - c/w Nicotine patch History of alcohol abuse - Reports quit in 2019; but also noted she drinks 2 to 3 glasses of wine a week Depression - c/w buspirone, citalopram, mirtazapine GI prophylaxis - c/w Protonix DISCHARGE MEDICATIONS: Please see below. ALLERGIES: Please see below. PHYSICAL EXAMINATION ON DISCHARGE: VITAL SIGNS: Please see below. GENERAL: comfortable, NAD HEENT: PERRLA, EOMI NECK: supple, normal ROM CARDIOVASCULAR EXAMINATION: RRR, normal S1, S2, no gallops RESPIRATORY EXAMINATION: CTAB, good inspiratory effort ABDOMINAL EXAMINATION: soft, non tender, non distended EXTREMITIES: SKIN: warm, dy NEUROLOGICAL EXAMINATION: moving all 4 extremities, speech clear LABORATORY DATA: Please see below. IMAGING: CT abdomen pelvis with contrast 05/07/2021: 1. There are some changes in the cecum which suggest chronic inflammatory changes. There is no fatty infiltration seen today that would suggest an acute inflammatory process. There is unchanged appearing diverticulosis. 2. Fatty infiltration of the liver seen previously has resolved. 3. Chronic uterine myomatous changes appear stable. 4. Other findings as described above. CT abdomen pelvis with IV oral contrast 06/01/2021: 1. There is ascites of uncertain etiology. 2. Evidence of terminal ileitis and pancolitis particularly affecting the cecum and increased from the prior exam. Neoplastic change cannot be ruled out. 3. No evidence of definite free intraperitoneal air, however, small amount of air density in the mesentery adjacent to the terminal ileum cannot be completely ruled out. 4. This was discussed with at the time of this exam. CT Head 06/01: 1. Mild parenchymal atrophy. 2. The degree of ventricular dilatation is normal for age and/or degree of atrophy present. 3. No acute intracranial findings. CXR 06/02: Trace bibasilar atelectasis suspected (left greater than right). PROGNOSIS: good ACTIVITY: [As tolerated]. DIET: High Fiber diet. DISCHARGE PLAN: Continue high fiber diet. DC steroids per Dr. Andres. Metamucil and Miralaax daily. Patient needs repeat colonoscopy within 3 months for endomucosal resection of large polyps. Patient will follow up with Dr. Andres in GI clinic in 2-4 weeks. DISPOSITION: home DISCHARGE INSTRUCTIONS: - High fiber diet. - Continue present medications. - Can taper off or discontinue the steroids. - Use original regular Metamucil one tablespoon PO daily. - Miralax 1 capful (17 grams) in 8 ounces of water PO BID for atleast 7 days and then adjust dose to have one to two soft bowel movements daily. - Await pathology results. - Repeat colonoscopy at next available appointment (within 3 months) for retreatment and for endoscopic mucosal resection of the large polyps. F/u PCP 2-5 days F/u GI 2-4 weeks. Please take medications as prescribed. CMP with phos and mag to be checked in PCP clinic. DISCHARGE CONDITION: [Stable]. TIME SPENT ON DISCHARGE: 35 minutes Vital Signs/I&Os Vital Signs Date Time Temp Pulse Resp B/P (MAP) Pulse Ox O2 Delivery O2 Flow Rate FiO2 06/05/21 05:30 98.6 90 16 118/73 (88) 95 Room Air I&O- Last 24 Hours up to 6 AM 06/05/21 05:59 Intake Total 1500 ml Output Total 0 ml Balance 1500 ml Laboratory Data Labs 24H Laboratory Tests 2 06/04/21 12:04: Bedside Glucose (Misc Panel) 90 06/05/21 07:52: Nucleated Red Blood Cells % (auto) 0.3H, Erythrocyte Sedimentation Rate 18, Anion Gap 9, Glomerular Filtration Rate > 60.0, Calcium Level 6.5L, Phosphorus Level 1.8L, Total Bilirubin 0.5, Direct Bilirubin 0.4H, Aspartate Amino Transf (AST/SGOT) 89H, Alanine Aminotransferase (ALT/SGPT) 49, Alkaline Phosphatase 144H, C-Reactive Protein, Quantitative 1.56H, Total Protein 5.1L, Albumin 2.0L, Albumin/Globulin Ratio 0.6L CBC/BMP Laboratory Tests 06/05/21 07:52 FSBS Laboratory Tests Test 06/04/21 12:04 Range/Units Bedside Glucose (Misc Panel) 90 80-115 MG/DL Microbiology Microbiology 06/02/21 Stool Occult Blood (GREGOR) - Final, Complete 06/02/21 Urine Culture - Final, Complete 06/02/21 Stool Lactoferrin - Final, Complete 06/02/21 Gastrointestinal Tract Panel (PCR) - Final, Complete 06/01/21 Blood Culture - Preliminary, Resulted No Growth after 72 hours. All specime... 06/01/21 Blood Culture - Preliminary, Resulted No Growth after 72 hours. All specime... 06/01/21 Blood Culture - Preliminary, Resulted No Growth after 72 hours. All specime... 06/01/21 Blood Culture - Preliminary, Resulted No Growth after 72 hours. All specime... 06/01/21 Gastrointestinal Tract Panel (PCR) - Final, Complete Discharge Medications Scheduled Atorvastatin Calcium (Atorvastatin Calcium) 80 Mg Tab, 80 MG PO DAILY, (Reported) Buspirone HCl (Buspirone HCl) 10 Mg Tablet, 10 MG PO BID, (Reported) Citalopram Hydrobromide (Citalopram HBr) 20 Mg Tablet, 20 MG PO DAILY, (Reported) Mirtazapine (Remeron) 15 Mg Tablet, 15 MG PO QHS, (Reported) Polyethylene Glycol 3350 (Miralax) 17 Gm Powd.pack, 1 PKT PO DAILY Potassium Chloride (Klor-Con M10) 10 Meq Tab.er.prt, 40 MEQ PO BID Psyllium Husk/Aspartame (Metamucil Fiber Singles Packet) 3.4 Gm Powd.pack, 1 PKT PO BID Sod Phos Di, Shoshone/K Phos Shoshone (K-Phos Neutral Tablet) 250 Mg Tablet, 3 TAB PO TID Scheduled PRN Acetaminophen (Acetaminophen) 325 Mg Tablet, 650 MG PO Q4H PRN for MILD PAIN or TEMP > 101 Allergies Coded Allergies: milk (Verified Adverse Reaction, Mild, GI upset, 06/12/21) MELISSA MOSLEY MD Jun 05, 2021 11:19
[2021-06-05] MEDS ORDERED: K-PHTAB2 PO (12:01)
[2021-06-05] MEDS ORDERED: POTASSIUM PHOSPHATE INJ 20 MMOL in D5W 250 ML IV ONE (13:00)
== END 2021-06-05 13:45 | disposition home or self-care (01) | DRG 394 ==
LOC: M ED 12:27 → M ED INP 18:15 → ENRESERVTM 19:47 → ENRESERVDT 19:47 → M PCU 21:37 → M MS5PR 06-03 18:04
PROVIDERS: ADMIT Internal Medicine; ATTEND Family Medicine
PROC: 0DBK8ZX Excision of Ascending Colon, Via Natural or Artificial Opening Endoscopic, Diagnostic (ICD-10-PCS; 2021-06-04)
PROC: 0DBH8ZX Excision of Cecum, Via Natural or Artificial Opening Endoscopic, Diagnostic (ICD-10-PCS; 2021-06-04)
PROC: 0W3P8ZZ Control Bleeding in Gastrointestinal Tract, Via Natural or Artificial Opening Endoscopic (ICD-10-PCS; 2021-06-04)
PROC: 0DBL8ZX Excision of Transverse Colon, Via Natural or Artificial Opening Endoscopic, Diagnostic (ICD-10-PCS; principal; 2021-06-04 16:30)
DX: D12.3 Benign neoplasm of transverse colon (principal); E87.1 Hypo-osmolality and hyponatremia; E87.2 Acidosis; R19.7 Diarrhea, unspecified; E87.6 Hypokalemia; R10.9 Unspecified abdominal pain; K57.30 Diverticulosis of large intestine without perforation or abscess without bleeding; D12.2 Benign neoplasm of ascending colon; D12.0 Benign neoplasm of cecum; K64.8 Other hemorrhoids; Z79.899 Other long term (current) drug therapy; Z91.011 Allergy to milk products; F17.200 Nicotine dependence, unspecified, uncomplicated; F32.9 Major depressive disorder, single episode, unspecified; E78.5 Hyperlipidemia, unspecified; Z98.41 Cataract extraction status, right eye; E83.39 Other disorders of phosphorus metabolism

== ENCOUNTER 2021-06-12 10:47 | Emergency (ER) | payer MEDICARE, MEDICAID ==
[~2021-06-12] VITALS: Ht 160 cm; Wt 72.7 kg
[~2021-06-12 10:47] MED LIST changes: +ACET1TAB55 PO; +AUGM875T28 PO; +K-PHTAB2 PO; +META1POW PO; +MIRA1POW3 PO; +MIRT-62 PO; +NEUTPW PO; +POTA-136 PO
[2021-06-12] MEDS ORDERED: PROMETHAZINE INJ 25 MG/ML VIAL (J2550) IV ONE (11:30)
[2021-06-12 12:25] LABS: BASO # 0.1 10^3/uL (0.0-0.2); BASO % 0.5 % (0.0-1.0); EOS # 0.2 10^3/uL (0.0-0.5); EOS % 1.2 % (0.0-3.0); HEMATOCRIT 35.3 % (36.0-47.0); HEMOGLOBIN 11.8 g/dl (12.0-15.5); LYMPH # 2.2 10^3/uL (1.5-5.0); LYMPH % 13.2 % (24.0-44.0); MEAN CORPUSCULAR HEMOGLOBIN 33.3 pg (27.0-33.0); MEAN CORPUSCULAR HGB CONC 33.4 g/dl (32.0-36.5); MEAN CORPUSCULAR VOLUME 99.7 fl (80.0-96.0); MONO # 1.2 10^3/uL (0.0-0.8); NEUTROPHILS # 12.8 10^3/uL (1.5-8.5); NEUTROPHILS % 77.6 % (36.0-66.0); PLATELET COUNT, AUTOMATED 485 10^3/uL (150-450); RED BLOOD COUNT 3.54 10^6/uL (4.00-5.40); WHITE BLOOD COUNT 16.5 10^3/uL (4.0-10.0)
[2021-06-12 12:49] LABS: RSV AMPLIFICATION NEGATIVE (NEGATIVE)
[2021-06-12 13:02] LABS: ALBUMIN 2.3 GM/DL (3.2-5.2); BILIRUBIN,DIRECT 0.4 MG/DL (0.0-0.2); BILIRUBIN,TOTAL 0.9 MG/DL (0.2-1.0); TOTAL PROTEIN 5.9 GM/DL (6.4-8.2)
[2021-06-12] MEDS ORDERED: ISOVUE-370 76% 100ML VIAL As Ordered ONE (13:07)
--- OUTSIDE RECORDS SUMMARY | 2021-06-12 13:26 | CCD ---
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 Active confirmed 7479950 4 Problem Body aches R52 Active confirmed 82722308 Problem Abnormal mammogram of left breast R92.8 Active confirmed 637966132 Problem Difficulty sleeping G47.9 Active confirmed 184443146 Problem Osteoporosis M81.0 Active confirmed 4859415 6 Problem Cigarette nicotine dependence without complication F17.210 Active confirmed 16104255 Problem Elevated blood pressure read ing in office with diagnosis of hypertension I10 Active confirmed 06553652 Problem Pure hypercholesterolemia E78.00 Active confirmed 527148269 Problem Abnormal laboratory test result R89.9 Active confi rmed 975359762 Problem Tinnitus, bilateral H93.13 Active confirmed 8877093438271 Problem Smoker F17.200 Active confirmed 79967041 Problem 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 Active confirmed 190 755767 Problem Abnormal mammogram R92.8 Active confirmed 1 83147231 Problem Major depressive disorder, single episode, unspecified F32.9 Active confirmed 99144639 Problem Mild episode of recurrent major depressive disorder F33.0 Active confirmed 678586147 Problem Nightmares F51.5 Active confirmed 827867741 Problem Age-related osteoporosis without current pathological fracture M81.0 Active confirmed 747690283 Problem Iron deficiency anemia due to chronic blood loss D 50.0 Active confirmed 582959430 ALLERGIES No Known Allergies ENCOUNTERS from 1950 to 2021-06-08 Encounter Location Date Provider Diagnosis [address] [address] 15 May, 2021 Micheline Howell IMMUNIZATIONS Vaccine Route Administration Date Status Prolia 60mg/1mL Denosumab SC Subcutaneous March 14, 2021 Admini stered Prolia 60mg/1mL Denosumab SC Subcutaneous Mar 25, 2017 Admini stered Prolia 60mg/1mL Denosumab SC Subcutaneous Sep 24, 2016 Admini stered Pneumococcal Adult 0.5mL Pneumovax 23 IM Intramuscular February 18, 2020 Administered Pneumococcal 0.5mL Prevnar 13 IM Intramuscular Oct 22, 2016 A dministered SOCIAL HISTORY Tobacco Use: Social History Observation Description Date Details (start date - stop date) Current Smoker Sex Assigned At : Social History Observation Description Sex Assigned At Unknown Language: Question Answer Notes Languages spoken: Paraguayan Denominational: Question Answer Notes Denominational No roman catholic beliefs that would impact health care. Sexual Hx: Question Answer Notes Had sex in the last 12 months (vaginal, oral, or anal)? No Alcohol Screening: Question Answer Notes Did you have a drink containing alcohol in the past year? Ye s Points 5 Interpretation Positive How often did you have six or more drinks on one occas ion in the past year? Never (0 points) How many drinks did you have on a typica l day when you were drinking in the past year? 3 or 4 (1 point) How often did you have a drink containing alcohol in t he past year? Four or more times a week (4 points) Tobacco Use: Question Answer Notes Are you a: current smoker Patient counseled on the dangers of tobacco use and urged to quit: 03/10/2017 How many cigarettes a day do you smoke? 11-20 Are you interested in quitting? Thinking about quitting Counseled the patient on smoking cessation, education provid ed 03/10/2017 REASON FOR REFERRAL No Information VITAL SIGNS No information MEDICATIONS Medication SIG (Take, Route, Frequency, Duration) Notes Start Da te End Date Status Vitamin C 1000 MG 1 tablet Orally Once a day for 30 day(s) Active Prolia 60mg/ml as directed subcutaneous injection every 6 month s for 180 days Aug, Active Citalopram Hydrobromide 20 MG 1 tablet Orally Once a day for 30 day(s) Jan, Active Ferrous Gluconate 324 (38 Fe) MG 1 tablet with water o r juice between meals Orally Every other day for 30 day(s) Aug, Active Amoxicillin-Pot Clavulanate 875-125 MG 1 tablet Orally every 12 hrs for 10 day(s) Active Vitamin D 1000 UNIT 1 tablet Orally Once a day for 30 day(s) Apr, Active [facility] Nicotine 2 MG 1 piece for 30 minute as nee ded Mouth/Throat 24 time(s) a day for 30 days Mar, Not-Taking busPIRone HCl 10 MG 1 tablet Orally Twice a day Active Mupirocin 2 % apply thin layer to rectal a kerwin Externally Three times a day for 10 days Apr, Not-Taking Magnesium 250 MG 1 tablet with a meal Orally Once a day for 30 day(s) Active Multivitamins - 1 tab Orally Daily A ctive Atorvastatin Calcium 80 MG TAKE ONE TABLET BY MOUTH EVERY DAY for 30 Active Mirtazapine 7.5 MG 1 tablet at bedtime Orally Once a day Active Calcium 600 MG 1 tablet Orally Once a day for 30 days Active PROCEDURES No Information RESULTS No Results REASON FOR VISIT [facility] MEDICAL (GENERAL) HISTORY Type Description Date Medical History Major depressive disorder Medical History History of alcohol abuse, sober since 2019 Medical History Hypercholesterolemia Medical History Cigarette depedence Surgical History cataract removal-Rt 12/16/16 Hospitalization History Major depressive disorder 07/20/2016 Goals Section No Information Health Concerns No Information MEDICAL EQUIPMENT No Information MENTAL STATUS No Information FUNCTIONAL STATUS No Information ASSESSMENTS No Information PLAN OF TREATMENT Next Appt Details Provider Name:Jose Vazquez, 2021-07-13 10: 30:00 AM, [address] , , [place], [address], Insurance Providers Payer Name Payer Address Payer Phone Insured Name Patient Relati onship to Insured Coverage Start Date Coverage End Date [facility] [address] [facility] [id number] ALEX JAMES MEDICAID [employer] [address] [facility] [id number] ALEX JAMES self
--- OUTSIDE RECORDS SUMMARY | 2021-06-12 13:26 | CCD ---
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 Active confirmed 6484866 4 Problem Alcohol abuse F10.10 Active confirmed 824584 05 Problem Abnormal mammogram of left breast R92.8 Active confirmed 335054995 Problem Dyslipidemia E78.5 Active confirmed 5755906 07 Problem Osteoporosis M81.0 Active confirmed 6850751 6 Problem Body aches R52 Active confirmed 08332038 Problem Tinnitus, bilateral H93.13 Active confirmed 2953128110609 Problem Cigarette nicotine dependence without complication F17.210 Active confirmed 02383550 Problem Elevated blood pressure read ing in office with diagnosis of hypertension I10 Active confirmed 25273037 Problem Iron deficiency anemia due to chronic blood loss D 50.0 Active confirmed 468630695 Problem Abnormal mammogram R92.8 Active confirmed 1 94155178 Problem Abnormal laboratory test result R89.9 Active confi rmed 709809164 Problem Difficulty sleeping G47.9 Active confirmed 301018097 Problem Smoker F17.200 Active confirmed 60866128 Problem Pure hypercholesterolemia E78.00 Active confirmed 249272115 Problem Mild episode of recurrent major depressive disorder F33.0 Active confirmed 370792853 Problem Nightmares F51.5 Active confirmed 503980160 Problem Age-related osteoporosis without current pathological fracture M81.0 Active confirmed 701585975 ALLERGIES No Known Allergies ENCOUNTERS from 1950 to 2021-06-07 Encounter Location Date Provider Diagnosis [facility] [phone] [place] [address] Apr, Jose Vazquez IMMUNIZATIONS Vaccine Route Administration Date Status Prolia [...] Unknown Language: Question Answer Notes Languages spoken: Upper Sorbian Hoahaoism: Question Answer Notes Hoahaoism No hinduism beliefs that would impact health care. Sexual [...] Notes Start Da te End Date Status Prolia 60mg/ml as directed subcutaneous injection every 6 month s for 180 days Aug, Active Vitamin C 1000 MG 1 tablet Orally Once a day for 30 day(s) Active Multivitamins - 1 tab Orally Daily A ctive Mupirocin 2 % apply thin layer to rectal a kerwin Externally Three times a day for 10 days Apr, Active Citalopram Hydrobromide 20 MG 1 tablet Orally Once a day for 30 day(s) Jan, Active Mirtazapine 7.5 MG 1 tablet at bedtime Orally Once a day Active Atorvastatin Calcium 80 MG TAKE ONE TABLET BY MOUTH EVERY DAY for 30 Active busPIRone HCl 10 MG 1 tablet Orally Twice a day Active [facility] Nicotine 2 MG 1 piece for 30 minute as nee ded Mouth/Throat 24 time(s) a day for 30 days Mar, Not-Taking Magnesium 250 MG 1 tablet with a meal Orally Once a day for 30 day(s) Active Ferrous Gluconate 324 (38 Fe) MG 1 tablet with water o r juice between meals Orally Every other day for 30 day(s) Aug, Active Calcium 600 MG 1 tablet Orally Once a day for 30 days Active Vitamin D 1000 UNIT 1 tablet Orally Once a day for 30 day(s) Apr, Active PROCEDURES No Information RESULTS No Results REASON FOR VISIT No Information MEDICAL (GENERAL) HISTORY Type Description Date Medical [...] PLAN OF TREATMENT Next Appt Details Provider Name:Micheline Chen, 2021-06-08 09 :30:00 AM, [address] [facility], , [place], [address], Provider Name:Jose Vazquez, 2021-07-13 10: 30:00 AM, [address] , [place], [address], Insurance Providers Payer Name Payer Address Payer Phone Insured Name Patient Relati onship to Insured Coverage Start Date Coverage End Date MEDICAID [employer] [address] [facility] [id number] ALEX JAMES self [facility] [address] [facility] [address] ALEX JAMES self
--- OUTSIDE RECORDS SUMMARY | 2021-06-12 13:26 | CCD ---
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 Active confirmed 9329020 4 Problem Alcohol abuse F10.10 Active confirmed 989146 05 Problem Abnormal mammogram of left breast R92.8 Active confirmed 311564067 Problem Dyslipidemia E78.5 Active confirmed 8310511 07 Problem Osteoporosis M81.0 Active confirmed 2929580 6 Problem Body aches R52 Active confirmed 20681484 Problem Tinnitus, bilateral H93.13 Active confirmed 0858918656735 Problem Cigarette nicotine dependence without complication F17.210 Active confirmed 59865948 Problem Elevated blood pressure read ing in office with diagnosis of hypertension I10 Active confirmed 12844325 Problem Iron deficiency anemia due to chronic blood loss D 50.0 Active confirmed 726696378 Problem Abnormal mammogram R92.8 Active confirmed 1 50910432 Problem Abnormal laboratory test result R89.9 Active confi rmed 752158234 Problem Difficulty sleeping G47.9 Active confirmed 375955653 Problem Smoker F17.200 Active confirmed 09925201 Problem Pure hypercholesterolemia E78.00 Active confirmed 337209276 Problem Mild episode of recurrent major depressive disorder F33.0 Active confirmed 255457287 Problem Nightmares F51.5 Active confirmed 720112139 Problem Age-related osteoporosis without current pathological fracture M81.0 Active confirmed 388401920 ALLERGIES No Known Allergies ENCOUNTERS from 1950 to 2021 Encounter Location Date Provider Diagnosis [facility] [place] [address] [facility] [phone] [place] [address] 14 Apr, 2021 Ramona Wellington Abdominal bloating R14.0 ; G eneralized abdominal pain R10.84 ; Diarrhea, unspecified type R19.7 and Abnormal laboratory test result R89.9 IMMUNIZATIONS Vaccine Route Administration Date Status Prolia [...] Unknown Language: Question Answer Notes Languages spoken: Azeri Cheondoism: Question Answer Notes Cheondoism No druze beliefs that would impact health care. Sexual [...] Counseled the patient on smoking cessation, education [facility] ed 03/10/2017 REASON FOR REFERRAL No Information VITAL SIGNS No information MEDICATIONS Medication SIG (Take, Route, Frequency, Duration) Notes Start Da te End Date Status Multivitamins - 1 tab Orally Daily A ctive Mupirocin 2 % apply thin layer to rectal a kerwin Externally Three times a day for 10 days Apr, Active Vitamin C 1000 MG 1 tablet Orally Once a day for 30 day(s) Active Magnesium 250 MG 1 tablet with a meal Orally Once a day for 30 day(s) Active busPIRone HCl 10 MG 1 tablet Orally Twice a day Active Ferrous Gluconate 324 (38 Fe) MG 1 tablet with water o r juice between meals Orally Every other day for 30 day(s) Aug, Active [facility] Nicotine 2 MG 1 piece for 30 minute as nee ded Mouth/Throat 24 time(s) a day for 30 days Mar, Active Vitamin D 1000 UNIT 1 tablet Orally Once a day for 30 day(s) Apr, Active Prolia 60mg/ml as directed subcutaneous injection every 6 month s for 180 days Aug, Active Calcium 600 MG 1 tablet Orally Once a day for 30 days Active Atorvastatin Calcium 80 MG TAKE ONE TABLET BY MOUTH EVERY DAY for 30 Active Mirtazapine 7.5 MG 1 tablet at bedtime Orally Once a day Active Citalopram Hydrobromide 20 MG 1 tablet Orally Once a day for 30 day(s) Jan, Active PROCEDURES No Information RESULTS Component Value Reference Range FERRITIN Reviewed date:2021 15:45:52 Interpretation: Performing Lab:[facility] LABORATORY [address] [place] [address] , [place] [address] FERRITIN 109 8-252 TOTAL IRON BINDING CAPACIT Reviewed date:2021 15:45:46 Interpretation: Performing Lab:[facility], [facility] LABORATORY [address] [facility] [address] , ,[facility]01 IRON (FE) 72 50-170 TOTAL IRON BINDING CAPACITY 291 250-450 PERCENT SATURATION 24.7 13.2-45.0 REASON FOR VISIT FYI only MEDICAL (GENERAL) HISTORY Type Description Date Medical History Major depressive disorder Medical History History of alcohol abuse, sober since 2019 Medical History Hypercholesterolemia Medical History Cigarette depedence Surgical History cataract removal-Rt 12/16/16 Hospitalization History Major depressive disorder 07/20/2016 Goals Section No Information Health Concerns No Information MEDICAL EQUIPMENT No Information MENTAL STATUS No Information FUNCTIONAL STATUS No Information ASSESSMENTS Encounter Date Diagnosis Assessment Notes Treatment Notes Treatm ent Clinical Notes 14 Apr, 2021 Generalized abdominal pain (ICD-10 - R10.84) 14 Apr, 2021 Abdominal bloating (ICD-10 - R14.0) 14 Apr, 2021 Diarrhea, unspecified type (ICD-10 - R19.7) 14 Apr, 2021 Abnormal laboratory test result (ICD-10 - R89.9) PLAN OF TREATMENT Medication Medication Name Sig Start Date Stop Date Mupirocin 2 % apply thin layer to rectal a kerwin Externally Three times a day for 10 days 10 Apr, 2021 Treatment Notes Test Name Order Date Fibrospect Bowie 2021-05-08 Comprehensive Metabolic Profile (CMP) 2021-05-08 IBDPRO - IBD sgi PROMETHEUS 2021-05-08 PREETHI 2021-05-08 ANTI-MITOCHONDRIAL ANTIBODY 2021-05-08 CBC with Auto Differential 2021-05-08 Insurance Providers Payer Name Payer Address Payer Phone Insured Name Patient Relati onship to Insured Coverage Start Date Coverage End Date [facility] [address] [facility] [id number] ALEX JAMES self MEDICAID [facility] [address] [facility] [id number] ALEX JAMES self
--- OUTSIDE RECORDS SUMMARY | 2021-06-12 13:26 | CCD ---
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 Active confirmed 0992991 4 Problem Alcohol abuse F10.10 Active confirmed 221744 05 Problem Abnormal mammogram of left breast R92.8 Active confirmed 932843003 Problem Dyslipidemia E78.5 Active confirmed 3163375 07 Problem Osteoporosis M81.0 Active confirmed 3535497 6 Problem Body aches R52 Active confirmed 60425416 Problem Tinnitus, bilateral H93.13 Active confirmed 3603859906896 Problem Cigarette nicotine dependence without complication F17.210 Active confirmed 27327484 Problem Elevated blood pressure read ing in office with diagnosis of hypertension I10 Active confirmed 05425412 Problem Iron deficiency anemia due to chronic blood loss D 50.0 Active confirmed 110632887 Problem Abnormal mammogram R92.8 Active confirmed 1 84611058 Problem Abnormal laboratory test result R89.9 Active confi rmed 083492577 Problem Difficulty sleeping G47.9 Active confirmed 205924599 Problem Smoker F17.200 Active confirmed 94435183 Problem Pure hypercholesterolemia E78.00 Active confirmed 209412841 Problem Mild episode of recurrent major depressive disorder F33.0 Active confirmed 093706807 Problem Nightmares F51.5 Active confirmed 624425645 Problem Age-related osteoporosis without current pathological fracture M81.0 Active confirmed 008961706 ALLERGIES No Known Allergies ENCOUNTERS from 1950 to 2021-05-15 Encounter Location Date Provider Diagnosis [facility] [place] [address] [facility] [phone] [place] [address] Apr, Luis Carlos Sharma IMMUNIZATIONS Vaccine Route Administration Date Status Prolia [...] Unknown Language: Question Answer Notes Languages spoken: Hungarian Voodoo: Question Answer Notes Voodoo No pentecostal beliefs that would impact health care. Sexual [...] Start Da te End Date Status Vitamin D 1000 UNIT 1 tablet Orally Once a day for 30 day(s) Apr, Active Prolia 60mg/ml as directed subcutaneous injection every 6 month s for 180 days Aug, Active Mirtazapine 7.5 MG 1 tablet at bedtime Orally Once a day Active Atorvastatin Calcium 80 MG TAKE ONE TABLET BY MOUTH EVERY DAY for 30 Active Ferrous Gluconate 324 (38 Fe) MG 1 tablet with water o r juice between meals Orally Every other day for 30 day(s) Aug, Active Mupirocin 2 % apply thin layer to rectal a kerwin Externally Three times a day for 10 days Apr, Active Calcium 600 MG 1 tablet Orally Once a day for 30 days Active Multivitamins - 1 tab Orally Daily A ctive Magnesium 250 MG 1 tablet with a meal Orally Once a day for 30 day(s) Active [facility] Nicotine 2 MG 1 piece for 30 minute as nee ded Mouth/Throat 24 time(s) a day for 30 days Mar, Not-Taking Vitamin C 1000 MG 1 tablet Orally Once a day for 30 day(s) Active busPIRone HCl 10 MG 1 tablet Orally Twice a day Active Citalopram Hydrobromide 20 MG 1 tablet Orally Once a day for 30 day(s) Jan, Active PROCEDURES No Information RESULTS No Results [...] TREATMENT Next Appt Details Provider Name:Jose Vazquez, 2021-06-05 03: 00:00 PM, [address] [facility], , [place], [address], Insurance Providers Payer Name Payer Address Payer Phone Insured Name Patient Relati onship to Insured Coverage Start Date Coverage End Date [facility] [address] [facility] [id number] [address]LEX JAMES [address] [facility] [address] [facility] [id number] ALEX JAMES self
--- OUTSIDE RECORDS SUMMARY | 2021-06-12 13:26 | CCD ---
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 Active confirmed 6592908 4 Problem Alcohol abuse F10.10 Active confirmed 709667 05 Problem Abnormal mammogram of left breast R92.8 Active confirmed 475548971 Problem Dyslipidemia E78.5 Active confirmed 1135012 07 Problem Osteoporosis M81.0 Active confirmed 6114604 6 Problem Body aches R52 Active confirmed 79233881 Problem Tinnitus, bilateral H93.13 Active confirmed 7056154399239 Problem Cigarette nicotine dependence without complication F17.210 Active confirmed 51518116 Problem Elevated blood pressure read ing in office with diagnosis of hypertension I10 Active confirmed 19596140 Problem Iron deficiency anemia due to chronic blood loss D 50.0 Active confirmed 106012912 Problem Abnormal mammogram R92.8 Active confirmed 1 64133312 Problem Abnormal laboratory test result R89.9 Active confi rmed 018714010 Problem Difficulty sleeping G47.9 Active confirmed 957648961 Problem Smoker F17.200 Active confirmed 96033063 Problem Pure hypercholesterolemia E78.00 Active confirmed 128015828 Problem Mild episode of recurrent major depressive disorder F33.0 Active confirmed 037195906 Problem Nightmares F51.5 Active confirmed 796730580 Problem Age-related osteoporosis without current pathological fracture M81.0 Active confirmed 180009485 ALLERGIES No Known Allergies ENCOUNTERS from 1950 to 2021-05-10 Encounter Location Date Provider Diagnosis [facility] [place] [address] [facility] [phone] [place] [address] Apr, Ramona Wellington Generalized abdominal pain R 10.84 ; Abdominal bloating R14.0 ; Rectal irritation K62.89 and Diarrhea, unspecified type R19.7 IMMUNIZATIONS Vaccine Route Administration Date Status Prolia [...] Unknown Language: Question Answer Notes Languages spoken: Welsh Congregational: Question Answer Notes Congregational No gnosticism beliefs that would impact health care. Sexual [...] Counseled the patient on smoking cessation, education [facility] ed 03/10/2017 REASON FOR REFERRAL No Information VITAL SIGNS Weight 156 lbs Apr, Weight-kg 70.76 kg Apr, Height 62 1/2 in Apr, BMI 28.08 kg/m2 Apr, Heart Rate 116 /min Apr, Respiratory Rate 18 /min Apr, Temperature 97.8 degrees Fahrenheit Apr, Oximetry 98% Apr, Blood pressure systolic 132 mm Hg Apr, Blood pressure diastolic 78 mm Hg Apr, MEDICATIONS Medication SIG (Take, Route, Frequency, Duration) [...] No Information RESULTS Component Value Reference Range ERYTHROCYTE SEDIMENTATION RATE Reviewed date:05/04/2021 18:19:57 Interpretation: Performing Lab:[facility] LABORATORY [address] [facility] [address] , ,[place] [address] ERYTHROCYTE SEDIMENTATION RATE 48 0-30 LIPASE Reviewed date:05/04/2021 16:07:35 Interpretation: Performing Lab:[facility] LABORATORY [address] [facility] [address] , ,[place] [address] LIPASE 117 73-393 Comprehensive Metabolic Profile (CMP) Reviewed date:05/07/2021 13:46:39 Interpretation: Performing Lab:[facility] LABORATORY [address] [place] [id number] , ,[place] [address] GLUCOSE, FASTING 103 70-100 BLOOD UREA NITROGEN 6 7-18 CREATININE FOR GFR 0.59 0.55-1.30 GLOMERULAR FILTRATION RATE > 60.0 >45 SODIUM LEVEL 135 136-145 POTASSIUM SERUM 3.9 3.5-5.1 CHLORIDE LEVEL 102 98-107 CARBON DIOXIDE LEVEL 25 21-32 CALCIUM LEVEL 8.6 8.8-10.2 AST/SGOT 108 7-37 ALT/SGPT 67 12-78 ALKALINE PHOSPHATASE 195 45-117 BILIRUBIN,TOTAL 1.1 0.2-1.0 TOTAL PROTEIN 7.0 6.4-8.2 ALBUMIN 3.0 3.2-5.2 ALBUMIN/GLOBULIN RATIO 0.8 1.2-2.2 C REACTIVE PROTEIN QUANTITATIV (At [facility] L ab) Reviewed date:05/07/2021 13:47:40 Interpretation: Performing Lab:[facility] LABORATORY [address] [place] [address] , ,[place] [address] C REACTIVE PROTEIN QUANTITATIV 4.93 0.00-0.30 GASTROINTESTINAL GI PANEL (GIPANEL) Reviewed date:05/07/2021 08:21:03 Interpretation: Performing Lab:[facility] LABORATORY [address] [place] [id number] , ,[facility]01 GASTROINTESTINAL (GI) PANEL This Gastrointestinal PCR Panel detects the following bacteria, GASTROINTESTINAL (GI) PANEL parasites and viruses: Cam pylobacter (jejuni, coli and upsaliensis), GASTROINTESTINAL (GI) PANEL Clostridium difficile (tox in A/B), Plesiomonas shigelloides, GASTROINTESTINAL (GI) PANEL Salmonella, Yersinia enter ocolitica, Vibrio (parahaemolyticus, GASTROINTESTINAL (GI) PANEL vulnificus and cholerae), Vibrio clolerae, Enteroaggregative GASTROINTESTINAL (GI) PANEL E. coli (EAEC), Enteropath ogenis E. coli (EPEC), Enterotoxigenic GASTROINTESTINAL (GI) PANEL E. coli (ETEC) it/st, Shig a-like producing E. coli (STEC) stx1/stc2, GASTROINTESTINAL (GI) PANEL E.coli O157, Shigella/Ente roinvasive E. coli (EIEC), Cryptosporidium, GASTROINTESTINAL (GI) PANEL Cyclospora cayetanensis, E ntamoeba histolytica, Giardia lamblia, GASTROINTESTINAL (GI) PANEL Adenovirus F 40/41, Astrov irus, Norovirus GI/GII, Rotavirus A and GASTROINTESTINAL (GI) PANEL Sapovirus (I, II, IV, V). GASTROINTESTINAL (GI) PANEL One negative specimen does not rule out the possibility of a GASTROINTESTINAL (GI) PANEL parasitic infection. GASTROINTESTINAL (GI) PANEL GASTROINTESTINAL (GI) PANEL NEGATIVE by MULTIPLEXED NUCLEIC ACID PCR GASTROINTESTINAL (GI) PANEL CBC with Differential Reviewed date:05/08/2021 14:53:35 Interpretation: Performing Lab:[facility], [facility] LABORATORY [address] [address] , ,[place] [address] WHITE BLOOD COUNT 14.1 4.0-10.0 RED BLOOD COUNT 3.99 4.00-5.40 HEMOGLOBIN 13.7 12.0-15.5 HEMATOCRIT 41.0 36.0-47.0 MEAN CORPUSCULAR VOLUME 102.8 80.0-96.0 MEAN CORPUSCULAR HEMOGLOBIN 34.3 27.0-33.0 MEAN CORPUSCULAR HGB CONC 33.4 32.0-36.5 RED CELL DISTRIBUTION WIDTH 12.7 11.5-14.5 PLATELET COUNT, AUTOMATED 407 150-450 NEUTROPHILS % 74.7 36.0-66.0 LYMPH % 15.2 24.0-44.0 MONO % 7.9 2.0-8.0 EOS % 0.9 0.0-3.0 BASO % 0.7 0.0-1.0 NEUTROPHILS # 10.5 1.5-8.5 LYMPH # 2.2 1.5-5.0 MONO # 1.1 0.0-0.8 EOS # 0.1 0.0-0.5 BASO # 0.1 0.0-0.2 REASON FOR VISIT hemorrhoids MEDICAL (GENERAL) HISTORY Type Description Date Medical [...] Notes Treatment Notes Treatm ent Clinical Notes Apr, Generalized abdominal pain (ICD-10 - R10.84) Will obtain labs, stool studies and a CT; pt agrees with plan Discussed with patient with regard to the rectal area, there are no hemorrhoids, but she has significant irritation from straining and wiping. Discussed with patient that she has normal BS, therefore it is unlikely that she has an obstruction and she can stop taking the stool softeners Apr, Abdominal bloating (ICD-10 - R14.0) Apr, Rectal irritation (ICD-10 - K62.89) Apr, Diarrhea, unspecified type (ICD-10 - R19.7) PLAN OF TREATMENT Medication Medication Name Sig Start Date Stop Date Mupirocin 2 % apply thin layer to rectal a kerwin Externally Three times a day for 10 days Apr, Treatment Notes Assessment Notes Clinical Notes Generalized abdominal pain Will obtain l abs, stool studies and a CT; pt agrees with planDiscussed with patient with regard to the rectal area, there are no hemorrhoids, but she has significant irritation from straining and wiping .Discussed with patient that she has normal BS, therefore it is unlikely that she has an obstruction and she can stop taking the stool softeners Treatment Notes Test Name Order Date CT ABD/PEL w/IV & Oral Contrast 2021-05-04 Insurance Providers Payer Name Payer Address Payer Phone Insured Name Patient Relati onship to Insured Coverage Start Date Coverage End Date [facility] [address] [facility] [phone] ALEX JAMES MEDICAID [facility] [employer] [address] [facility] [id number] ALEX JAMES
--- OUTSIDE RECORDS SUMMARY | 2021-06-12 13:26 | CCD ---
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 Active confirmed 9653651 4 Problem Alcohol abuse F10.10 Active confirmed 494689 05 Problem Abnormal mammogram of left breast R92.8 Active confirmed 635959174 Problem Dyslipidemia E78.5 Active confirmed 8473406 07 Problem Osteoporosis M81.0 Active confirmed 6904233 6 Problem Body aches R52 Active confirmed 06023437 Problem Tinnitus, bilateral H93.13 Active confirmed 6628336303746 Problem Cigarette nicotine dependence without complication F17.210 Active confirmed 64853506 Problem Elevated blood pressure read ing in office with diagnosis of hypertension I10 Active confirmed 63570962 Problem Iron deficiency anemia due to chronic blood loss D 50.0 Active confirmed 061323635 Problem Abnormal mammogram R92.8 Active confirmed 1 65310169 Problem Abnormal laboratory test result R89.9 Active confi rmed 506285437 Problem Difficulty sleeping G47.9 Active confirmed 314698812 Problem Smoker F17.200 Active confirmed 05556641 Problem Pure hypercholesterolemia E78.00 Active confirmed 316625024 Problem Mild episode of recurrent major depressive disorder F33.0 Active confirmed 427986255 Problem Nightmares F51.5 Active confirmed 452375015 Problem Age-related osteoporosis without current pathological fracture M81.0 Active confirmed 647139459 ALLERGIES No Known Allergies ENCOUNTERS from 1950 to 2021 Encounter Location Date Provider Diagnosis [facility] [place] [address] [facility] [phone] [place] [address] Apr, Ramona Wellington Abdominal bloating R14.0 and Generalized abdominal pain R10.84 IMMUNIZATIONS Vaccine Route Administration Date Status Prolia [...] Unknown Language: Question Answer Notes Languages spoken: Bulgarian Anabaptism: Question Answer Notes Anabaptism No jain beliefs that would impact health care. Sexual [...] day for 10 days 10 Apr, 2021 Active Vitamin C 1000 MG 1 tablet [...] Apr, Generalized abdominal pain (ICD-10 - R10.84) Apr, Abdominal bloating (ICD-10 - R14.0) PLAN OF TREATMENT Medication Medication Name Sig Start Date Stop Date Mupirocin 2 % apply thin layer to rectal a kerwin Externally Three times a day for 10 days Apr, Treatment Notes Test Name Order Date t-Transglutaminase (tTG) IgA 2021 Insurance Providers Payer Name Payer Address Payer Phone Insured Name Patient Relati onship to Insured Coverage Start Date Coverage End Date MEDICAID [employer] [address] [facility] [id number] [address] [facility] [address] [facility] [id number] ALEX JAMES self
--- OUTSIDE RECORDS SUMMARY | 2021-06-12 13:26 | CCD ---
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 Name Role Phone Jose Vazquez Unavailable PROBLEMS Type Condition ICD9-CM Code [id number] Code Onset Dates Condition S tatus W/U Status Risk SNOMED Code Notes Problem Major depressive disorder, single episode, unspecified F32.9 Active confirmed 48032722 Problem Smoker F17.200 Active confirmed 97344515 Problem Alcohol abuse F10.10 Active confirmed 603223 05 Problem Cigarette nicotine dependence, uncomplicated F17.2 10 Active confirmed 03248273 Problem Dyslipidemia E78.5 Active confirmed 5711058 07 Problem 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 Active confirmed 4639644 4 Problem Body aches R52 Active confirmed 07516548 Problem Abnormal mammogram of left breast R92.8 Active confirmed 676551509 Problem Abnormal mammogram R92.8 Active confirmed 1 67902942 Problem Tinnitus, bilateral H93.13 Active confirmed 9545866447661 Problem Cigarette nicotine dependence without complication F17.210 Active confirmed 11120009 Problem Age-related osteoporosis without current pathological fracture M81.0 Active confirmed 577312701 Problem Difficulty sleeping G47.9 Active confirmed 093882444 Problem Iron deficiency anemia due to chronic blood loss D 50.0 Active confirmed 896333512 Problem Osteoporosis M81.0 Active confirmed 3781344 6 Problem Elevated blood pressure read ing in office with diagnosis of hypertension I10 Active confirmed 87239245 Problem Pure hypercholesterolemia E78.00 Active confirmed 166591995 Problem Mild episode of recurrent major depressive disorder F33.0 Active confirmed 565657383 Problem Nightmares F51.5 Active confirmed 442560841 ALLERGIES No Known Allergies ENCOUNTERS from 1950 to 2021-04-23 Encounter Location Date Provider Diagnosis [facility] [place] [address] [facility] [phone] [place] [address] Mar, Jose Vazquez IMMUNIZATIONS Vaccine Route Administration Date [...] Unknown Language: Question Answer Notes Languages spoken: Solomon Islander Anabaptism: Question Answer Notes Anabaptism No jain [...] Notes Start Da te End Date Status Chantix Starting Month Juan 0.5 MG X 11 & 1 MG X 42 as directed Orally as directed for 30 days December, Not-Taking Magnesium 250 MG 1 tablet with a meal Orally Once a day for 30 day(s) Active Vitamin C 1000 MG 1 tablet Orally Once a day for 30 day(s) Active Prolia 60mg/ml as directed subcutaneous injection every 6 month s for 180 days Aug, Active Hydrocortisone (Perianal) 2.5 % 1 application External ly Twice a day as needed for 7 days May, Active Multivitamins - 1 tab Orally Daily A ctive Chantix Continuing Month Juan 1 mg 1 tablet Orally Twice a day fo r 30 day(s) Jul, Not-Taking Loratadine 10 MG 1 tablet Orally once daily as needed for 90 day s May, Unknown CeleXA 20 MG 1 tablet Orally Once a day Not-Taking traZODone HCl 100 MG 1 tablet at bedtime Orally Once a day Not-Taking Mirtazapine 7.5 MG 1 tablet at bedtime Orally Once a day Active busPIRone HCl 10 MG 1 tablet Orally Twice a day Active Calcium 600 MG 1 tablet Orally Once a day for 30 days Active Nicoderm CQ 21 MG/24HR 1 patch to skin Transdermal Once a day fo r 30 day(s) Oct, Not-Taking Citalopram Hydrobromide 20 MG 1 tablet Orally Once a day for 30 day(s) Jan, Active Ferrous Gluconate 324 (38 Fe) MG 1 tablet with water o r juice between meals Orally Every other day for 30 day(s) Aug, Active KlonoPIN 1 MG 1 tablet Orally Twice a day MDD:2 pt quit Not-Taking [facility] Nicotine 2 MG 1 piece for 30 minute as nee ded Mouth/Throat 24 time(s) a day for 30 days Mar, Active Ferrous Gluconate 324 (38 Fe) MG 1 tablet with water o r juice between meals Orally Once a day for 30 day(s) Mar, Active Vitamin D 1000 UNIT 1 tablet Orally Once a day for 30 day(s) Apr, Active Atorvastatin Calcium 80 MG TAKE ONE TABLET BY MOUTH EVERY DAY for 30 Active Prazosin HCl 1 MG 1 capsule at bedtime Orally Once a day Not-Taking PROCEDURES No Information RESULTS No Results REASON FOR VISIT CP -Gastro MEDICAL (GENERAL) HISTORY Type Description Date Medical [...] Information ASSESSMENTS No Information PLAN OF TREATMENT Medication Medication Name Sig Start Date Stop Date [facility] Nicotine 2 MG 1 piece for 30 minute as nee ded Mouth/Throat 24 time(s) a day for 30 days Mar, Hydrocortisone (Perianal) 2.5 % 1 application External ly Twice a day as needed for 7 days May, Ferrous Gluconate 324 (38 Fe) MG 1 tablet with water o r juice between meals Orally Once a day for 30 day(s) Mar, Citalopram Hydrobromide 20 MG 1 tablet Orally Once a day for 30 day(s) Jan, Insurance Providers Payer Name Payer Address Payer Phone Insured Name Patient Relati onship to Insured Coverage Start Date Coverage End Date [facility] [address] [facility] [id number] ALEX JAMES self MEDICAID [facility] [address] [facility] [address] ALEX JAMES self
--- OUTSIDE RECORDS SUMMARY | 2021-06-12 13:26 | CCD ---
Author Author [facility] Organization 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 Active confirmed 4305479 4 Problem Body aches R52 Active confirmed 44196963 Problem Abnormal mammogram of left breast R92.8 Active confirmed 479366741 Problem Difficulty sleeping G47.9 Active confirmed 557308119 Problem Osteoporosis M81.0 Active confirmed 4903535 6 Problem Cigarette nicotine dependence without complication F17.210 Active confirmed 48660980 Problem Elevated blood pressure read ing in office with diagnosis of hypertension I10 Active confirmed 24924473 Problem Pure hypercholesterolemia E78.00 Active confirmed 264529961 Problem Abnormal laboratory test result R89.9 Active confi rmed 068573870 Problem Tinnitus, bilateral H93.13 Active confirmed 0575893218586 Problem Smoker F17.200 Active confirmed 29046967 Problem 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 Active confirmed 190 463643 Problem Abnormal mammogram R92.8 Active confirmed 1 66559691 Problem Major depressive disorder, single episode, unspecified F32.9 Active confirmed 74919905 Problem Mild episode of recurrent major depressive disorder F33.0 Active confirmed 356732428 Problem Nightmares F51.5 Active confirmed 400866089 Problem Age-related osteoporosis without current pathological fracture M81.0 Active confirmed 187421928 Problem Iron deficiency anemia due to chronic blood loss D 50.0 Active confirmed 827996674 ALLERGIES No Known Allergies ENCOUNTERS from 1950 to 2021-06-08 Encounter Location Date Provider Diagnosis [facility] [place] [phone] [place] [address] May, Jose Vazquez IMMUNIZATIONS Vaccine Route Administration Date [...] Unknown Language: Question Answer Notes Languages spoken: Macedonian Anabaptism: Question Answer Notes Anabaptism No muslim beliefs that would impact health care. Sexual [...] Counseled the patient on smoking cessation, education [facility] ed 03/10/2017 REASON FOR REFERRAL No Information [...] Information RESULTS No Results REASON FOR VISIT swollen legs and feet MEDICAL (GENERAL) HISTORY Type Description Date Medical [...] Name:Jose Vazquez, 2021-07-13 10: 30:00 AM, [address] [facility] [address], , [place], [address], Insurance Providers Payer Name Payer Address Payer Phone Insured Name Patient Relati onship to Insured Coverage Start Date Coverage End Date MEDICAID [employer] [place] [address] [facility] [id number] [facility] [address] [facility] [phone] ALEX JAMES self
--- OUTSIDE RECORDS SUMMARY | 2021-06-12 13:26 | CCD ---
Author Author [facility] Organization [facility] Address Unknown Phone Unavailable Care Team Providers Care Shactor Name Role Phone Jose Vazquez Unavailable PROBLEMS Type Condition ICD9-CM Code [id number] Code Onset Dates Condition S tatus W/U Status Risk SNOMED Code Notes Problem Major depressive disorder, single episode, unspecified F32.9 Active confirmed 01589429 Problem Smoker F17.200 Active confirmed 19638072 Problem Alcohol abuse F10.10 Active confirmed 751601 05 Problem Cigarette nicotine dependence, uncomplicated F17.2 10 Active confirmed 10879664 Problem Dyslipidemia E78.5 Active confirmed 6319034 07 Problem 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 Active confirmed 1958647 4 Problem Body aches R52 Active confirmed 37055951 Problem Abnormal mammogram of left breast R92.8 Active confirmed 458557789 Problem Abnormal mammogram R92.8 Active confirmed 1 12641238 Problem Tinnitus, bilateral H93.13 Active confirmed 9919172767506 Problem Cigarette nicotine dependence without complication F17.210 Active confirmed 09555147 Problem Age-related osteoporosis without current pathological fracture M81.0 Active confirmed 179204347 Problem Difficulty sleeping G47.9 Active confirmed 617496007 Problem Iron deficiency anemia due to chronic blood loss D 50.0 Active confirmed 857088517 Problem Osteoporosis M81.0 Active confirmed 8141234 6 Problem Elevated blood pressure read ing in office with diagnosis of hypertension I10 Active confirmed 29865122 Problem Pure hypercholesterolemia E78.00 Active confirmed 147655679 Problem Mild episode of recurrent major depressive disorder F33.0 Active confirmed 730508319 Problem Nightmares F51.5 Active confirmed 601688170 ALLERGIES No Known Allergies ENCOUNTERS from 1950 to 2021-05-07 Encounter Location Date Provider Diagnosis [facility] [place] [address] [facility] [phone] [place] [address] Apr, Jose Vazquez IMMUNIZATIONS Vaccine Route Administration [...] Unknown Language: Question Answer Notes Languages spoken: Beninese Yarsanism: Question Answer Notes Yarsanism No zoroastrian beliefs that would impact health care. Sexual [...] Information RESULTS No Results REASON FOR VISIT hemorrhoids MEDICAL (GENERAL) HISTORY [...] times a day for 10 days Apr, Insurance Providers Payer Name Payer Address Payer Phone Insured Name Patient Relati onship to Insured Coverage Start Date Coverage End Date MEDICAID [employer] [address] [facility] [id number] [phone] ALEX JAMES [facility] [address] [facility] [address] ALEX JAMES
--- OUTSIDE RECORDS SUMMARY | 2021-06-12 13:26 | CCD ---
Author Author Hilary Valle Organization Unknown Address [address] [place] [address] Phone Care Team Providers Care Hand Paint Mixer Name Role Phone Jessica Valle PCP Allergies, Adverse Reactions, Alerts Concept Allergy Name Reaction Severity Onset Date Status Documentation Date Phone Number Npid Taxonomy Code Taxonomy Desc Author Last Name Author Fi rst Name Concept Type [id number] prazosin dizziness 08/11/2017 Active 08/07/2017 [id number] Psychiatry Gina Casper RXNORM Problem List Concept Problem Description Status Start Date Created Date Resolv ed Date Snomed Code F41.9 Unspecified Anxiety Disorder Active 04/06/2021 F10.20 Alcohol Use Disorder, Severe Active 04/06/2021 F17.200 Tobacco Use Disorder, Severe Active 04/06/2021 F41.0 Panic Disorder Active 04/06/2021 F43.9 Unspecified Trauma- and Stressor-Related Disorder Active 04/06/2021 Medications Rx Norm Medication Route Route Concept Start Date Stop Date Dosage Lenny quency Duration Formula Strength Dosage Form Dosage Form Code Dosage Description Medication Id Account Npid Author First Name Author Last Name Taxonomy Code Taxonomy Desc Phone Number [id number] mirtazapine 10/03/2020 30 15 mg tablet 98582 [id number] Solomon Hdz [id number] Nurse Practitioner [id number] [phone] [id number] citalopram 10/03/2020 30 20 mg tablet 34686 [id number] Solomon Hdz [id number] Nurse Practitioner [id number] [phone] 121878 buspirone 10/03/2020 30 10 mg tablet 49197 [phone] [phone] [id number] Solomon Hdz [id number] Nurse Practitioner [id number] Social History Social History Element Description Concept Effective Date Smoking Status Unknown if ever smoked [id number] Immunizations No Data in Section Vital Signs No Data in Section Procedures Date Concept Id Description Targeted Site Concept Targeted Site Concept Type 04/05/2021 13020 Extended Individual Psychotherapy - 45 min CPT Patient has no history of implantable de vices Encounters Encounter Start Date End Date Encounter Type Description Diagnosis Di agnosis Desc Location Author First Name Author Last Name Npid Taxonomy Cod e Taxonomy Desc Phone Number Location Addr1 Location Addr2 Location [facility] Location [facility] te Location Zip [id number] 04/05/2021 04/05/2021 91289 Extended Individual Psych otherapy - 45 min F41.9 Anxiety Disorder, Unspecified [facility]ly [facility] jaylan Leonard Loepz [phone] [id number] 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
--- OUTSIDE RECORDS SUMMARY | 2021-06-12 13:26 | CCD ---
Author Author [facility] Organization [facility] Address Unknown Phone Unavailable Care Team Providers Care Director Mortgage Name Role Phone Jose Vazquez Unavailable PROBLEMS Type Condition ICD9-CM Code BES29-NB Code Onset Dates Condition S tatus W/U Status Risk SNOMED Code Notes Problem Major depressive disorder, single episode, unspecified F32.9 Active confirmed 57413207 Problem Smoker F17.200 Active confirmed 30563734 Problem Alcohol abuse F10.10 Active confirmed 862453 05 Problem Cigarette nicotine dependence, uncomplicated F17.2 10 Active confirmed 57115519 Problem Dyslipidemia E78.5 Active confirmed 4600927 07 Problem 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 Active confirmed 0488739 4 Problem Body aches R52 Active confirmed 86851632 Problem Abnormal mammogram of left breast R92.8 Active confirmed 757875375 Problem Abnormal mammogram R92.8 Active confirmed 1 82545810 Problem Tinnitus, bilateral H93.13 Active confirmed 3921082400841 Problem Cigarette nicotine dependence without complication F17.210 Active confirmed 80831597 Problem Age-related osteoporosis without current pathological fracture M81.0 Active confirmed 979462124 Problem Difficulty sleeping G47.9 Active confirmed 490689269 Problem Iron deficiency anemia due to chronic blood loss D 50.0 Active confirmed 449264232 Problem Osteoporosis M81.0 Active confirmed 9255540 6 Problem Elevated blood pressure read ing in office with diagnosis of hypertension I10 Active confirmed 58953802 Problem Pure hypercholesterolemia E78.00 Active confirmed 695178335 Problem Mild episode of recurrent major depressive disorder F33.0 Active confirmed 971475603 Problem Nightmares F51.5 Active confirmed 106389856 ALLERGIES No Known Allergies ENCOUNTERS from 1950 to 2021-04-20 Encounter Location Date Provider Diagnosis [facility] [place] [address] [facility] [phone] [place] [address] Mar, Jose Vazquez Mild episode of recurrent ma rashad depressive disorder F33.0 IMMUNIZATIONS Vaccine Route Administration Date Status Prolia [...] Unknown Language: Question Answer Notes Languages spoken: Ecuadorean Protestant: Question Answer Notes Protestant No mormon beliefs that would impact health care. Sexual [...] Information RESULTS No Results REASON FOR VISIT refill MEDICAL (GENERAL) HISTORY Type Description Date Medical [...] Notes Treatment Notes Treatm ent Clinical Notes Mar, Mild episode of recurrent ma rashad depressive disorder (ICD-10 - F33.0) PLAN OF TREATMENT Medication Medication Name Sig [...] Insured Coverage Start Date Coverage End Date [facility] [address] [facility] [phone] [facility] [address] [facility] [address] ALEX JAMES self
--- OUTSIDE RECORDS SUMMARY | 2021-06-12 13:27 | CCD ---
Author Author [facility] Organization 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 Active confirmed 8519279 4 Problem Alcohol abuse F10.10 Active confirmed 308532 05 Problem Abnormal mammogram of left breast R92.8 Active confirmed 770922534 Problem Dyslipidemia E78.5 Active confirmed 8665471 07 Problem Osteoporosis M81.0 Active confirmed 6551887 6 Problem Abnormal mammogram R92.8 Active confirmed 1 81773042 Problem Tinnitus, bilateral H93.13 Active confirmed 6355949318571 Problem Nightmares F51.5 Active confirmed 006932595 Problem Difficulty sleeping G47.9 Active confirmed 931242733 Problem Age-related osteoporosis without current pathological fracture M81.0 Active confirmed 764984439 Problem Body aches R52 Active confirmed 13870786 Problem Elevated blood pressure read ing in office with diagnosis of hypertension I10 Active confirmed 70432528 Problem Pure hypercholesterolemia E78.00 Active confirmed 322455494 Problem Cigarette nicotine dependence without complication F17.210 Active confirmed 21674718 Problem Mild episode of recurrent major depressive disorder F33.0 Active confirmed 036810588 ALLERGIES No Known Allergies ENCOUNTERS from 1950 to 2021-03-13 Encounter Location Date Provider Diagnosis [facility] [address] [facility] [address] [phone] [place] [address] Feb, Jose Vazquez IMMUNIZATIONS Vaccine Route Administration Date Status Prolia 60mg/1mL Denosumab SC Subcutaneous Mar 25, [...] Unknown Language: Question Answer Notes Languages spoken: [place] Islander Adventism: Question Answer Notes Adventism No rastafari beliefs that would impact health care. Sexual [...] Notes Start Da te End Date Status Citalopram Hydrobromide 20 MG 1 tablet Orally Once a day for 30 day(s) Jan, Active Chantix Continuing Month Juan 1 mg 1 tablet Orally Twice a day fo r 30 day(s) Jul, Not-Taking busPIRone HCl 10 MG 1 tablet Orally Twice a day Active traZODone HCl 100 MG 1 tablet at bedtime Orally Once a day Not-Taking Nicoderm CQ 21 MG/24HR 1 patch to skin Transdermal Once a day fo r 30 day(s) Oct, Not-Taking Hydrocortisone (Perianal) 2.5 % 1 application External ly Twice a day as needed for 7 days May, Active Prazosin HCl 1 MG 1 capsule at bedtime Orally Once a day Not-Taking Prolia 60mg/ml as directed subcutaneous injection every 6 month s for 180 days Aug, Active Multivitamins - 1 tab Orally Daily A ctive Ferrous Gluconate 324 (38 Fe) MG 1 tablet with water o r juice between meals Orally Every other day for 30 day(s) Aug, Active CeleXA 20 MG 1 tablet Orally Once a day Not-Taking Loratadine 10 MG 1 tablet Orally once daily as needed for 90 day s May, Active Calcium 600 MG 1 tablet Orally Once a day for 30 days Active Chantix Starting Month Juan 0.5 MG X 11 & 1 MG X 42 as directed Orally as directed for 30 days December, Not-Taking Vitamin D 1000 UNIT 1 tablet Orally Once a day for 30 day(s) Apr, Active Magnesium 250 MG 1 tablet with a meal Orally Once a day for 30 day(s) Active Mirtazapine 7.5 MG 1 tablet at bedtime Orally Once a day Active KlonoPIN 1 MG 1 tablet Orally Twice a day MDD:2 Not-Taking Atorvastatin Calcium 80 MG TAKE ONE TABLET BY MOUTH EVERY DAY for 30 Active Vitamin C 1000 MG 1 tablet Orally Once a day for 30 day(s) Active PROCEDURES No Information RESULTS No Results REASON FOR VISIT Prolia Package MEDICAL (GENERAL) HISTORY Type Description Date Medical [...] PLAN OF TREATMENT Next Appt Details Provider Name:Garcia George, 2021-03-14 11: 00:00 AM, [address] [place] [address] , [place], [address], Provider Name:Jose Vazquez 2021-04-12 10: 30:00 AM, [address] [facility], , [place], [place], [id number], Insurance Providers Payer Name Payer Address Payer Phone Insured Name Patient Relati onship to Insured Coverage Start Date Coverage End Date MEDICAID [employer] [address] [facility] [id number] ALEX JAMES [facility] [address] [facility] [address] ALEX JAMES self
--- OUTSIDE RECORDS SUMMARY | 2021-06-12 13:27 | CCD ---
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 Active confirmed 2127057 4 Problem Alcohol abuse F10.10 Active confirmed 797239 05 Problem Abnormal mammogram of left breast R92.8 Active confirmed 763756274 Problem Dyslipidemia E78.5 Active confirmed 1722808 07 Problem Osteoporosis M81.0 Active confirmed 8032515 6 Problem Abnormal mammogram R92.8 Active confirmed 1 82886045 Problem Tinnitus, bilateral H93.13 Active confirmed 0257112599647 Problem Nightmares F51.5 Active confirmed 586410517 Problem Difficulty sleeping G47.9 Active confirmed 634683858 Problem Age-related osteoporosis without current pathological fracture M81.0 Active confirmed 461785516 Problem Body aches R52 Active confirmed 47736817 Problem Elevated blood pressure read ing in office with diagnosis of hypertension I10 Active confirmed 03954179 Problem Pure hypercholesterolemia E78.00 Active confirmed 584272790 Problem Cigarette nicotine dependence without complication F17.210 Active confirmed 29753067 Problem Mild episode of recurrent major depressive disorder F33.0 Active confirmed 307907883 ALLERGIES No Known Allergies ENCOUNTERS from 1950 to 2021-03-13 Encounter Location Date Provider Diagnosis [facility] [place] [phone] [place] [address] Feb, Jose Vazquez IMMUNIZATIONS Vaccine Route Administration [...] Unknown Language: Question Answer Notes Languages spoken: Afghan Hoahaoism: Question Answer Notes Hoahaoism No cheondoism beliefs that would impact health care. Sexual [...] RESULTS No Results REASON FOR VISIT Prolia MEDICAL (GENERAL) HISTORY Type Description Date Medical [...] OF TREATMENT Next Appt Details Provider Name:Jose George, 2021-03-14 11: 00:00 AM, [address] [place] [address] , [place], [address], Provider Name:Garcia George 2021-04-12 10: 30:00 AM, [address] [place] [address], , [place], [place], [id number], Insurance Providers Payer Name Payer Address Payer Phone Insured Name Patient Relati onship to Insured Coverage Start Date Coverage End Date [facility] [address] [facility] [id number] LAEX JAMES self MEDICAID [employer] [address] [facility] [id number] ALEX JAMES self
--- OUTSIDE RECORDS SUMMARY | 2021-06-12 13:27 | CCD ---
Author Author [facility] Organization [facility] Address Unknown Phone Unavailable Care Team Providers Care Slip Sheeter Name Role Phone Jose Vazquez Unavailable PROBLEMS Type Condition ICD9-CM Code [id number] Code Onset Dates Condition S tatus W/U Status Risk SNOMED Code Notes Problem Cigarette nicotine dependence, uncomplicated F17.2 10 Active confirmed 06720588 Problem Major depressive disorder, single episode, unspecified F32.9 Active confirmed 52191847 Problem Smoker F17.200 Active confirmed 05425666 Problem 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 Active confirmed 1230995 4 Problem Alcohol abuse F10.10 Active confirmed 998309 05 Problem Abnormal mammogram of left breast R92.8 Active confirmed 818237030 Problem Dyslipidemia E78.5 Active confirmed 5184811 07 Problem Osteoporosis M81.0 Active confirmed 4031327 6 Problem Abnormal mammogram R92.8 Active confirmed 1 93161751 Problem Tinnitus, bilateral H93.13 Active confirmed 5123695615104 Problem Nightmares F51.5 Active confirmed 979562363 Problem Difficulty sleeping G47.9 Active confirmed 627650030 Problem Age-related osteoporosis without current pathological fracture M81.0 Active confirmed 323661657 Problem Body aches R52 Active confirmed 73049417 Problem Elevated blood pressure read ing in office with diagnosis of hypertension I10 Active confirmed 87178886 Problem Pure hypercholesterolemia E78.00 Active confirmed 221043036 Problem Cigarette nicotine dependence without complication F17.210 Active confirmed 53912958 Problem Mild episode of recurrent major depressive disorder F33.0 Active confirmed 217576917 ALLERGIES No Known Allergies ENCOUNTERS from 1950 to 2021-03-14 Encounter Location Date Provider Diagnosis [facility] [address] [phone] [place] [address] Feb, Jose Vazquez Osteoporosis M81.0 IMMUNIZATIONS Vaccine Route Administration Date Status Prolia [...] Unknown Language: Question Answer Notes Languages spoken: Belizean Mandaen: Question Answer Notes Mandaen No synagogue beliefs that would impact health care. Sexual [...] Counseled the patient on smoking cessation, education [facility] ed 03/10/2017 REASON FOR REFERRAL No Information [...] a day for 30 day(s) Active PROCEDURES from 1950 to 2021-03-14 Procedure Date Ordered Result Body Site Medication: Prolia 60mg/1mL SC (Denosumab) 2021-03-14 N/A RESULTS No Results REASON FOR VISIT prolia MEDICAL (GENERAL) HISTORY Type Description Date Medical [...] Notes Treatment Notes Treatm ent Clinical Notes Feb, Osteoporosis (ICD-10 - M81.0) PLAN OF TREATMENT Next Appt Details Provider Name:Jose Mckeoni, 2021-04-12 10: 30:00 AM, [address] [facility] [address] , , [place], [address], Insurance Providers Payer Name Payer Address Payer Phone Insured Name Patient Relati onship to Insured Coverage Start Date Coverage End Date [facility] [id number] [facility] [id number] ALEX JAMES MEDICAID [employer] [address] [facility] [id number] ALEX JAMES self
--- OUTSIDE RECORDS SUMMARY | 2021-06-12 13:27 | CCD ---
Author Author [facility] Organization [facility] Address Unknown Phone Unavailable Care Team Providers Care Can Bander Operator Name Role Phone Jose Vazquez Unavailable PROBLEMS Type Condition ICD9-CM Code [id number] Code Onset Dates Condition S tatus W/U Status Risk SNOMED Code Notes Problem Cigarette nicotine dependence, uncomplicated F17.2 10 Active confirmed 59233625 Problem Major depressive disorder, single episode, unspecified F32.9 Active confirmed 22599416 Problem Smoker F17.200 Active confirmed 98870953 Problem 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 Active confirmed 0057701 4 Problem Alcohol abuse F10.10 Active confirmed 602581 05 Problem Abnormal mammogram of left breast R92.8 Active confirmed 707605232 Problem Dyslipidemia E78.5 Active confirmed 5583499 07 Problem Osteoporosis M81.0 Active confirmed 7244586 6 Problem Abnormal mammogram R92.8 Active confirmed 1 52668867 Problem Tinnitus, bilateral H93.13 Active confirmed 4727879713740 Problem Nightmares F51.5 Active confirmed 884848920 Problem Difficulty sleeping G47.9 Active confirmed 711870088 Problem Age-related osteoporosis without current pathological fracture M81.0 Active confirmed 920345267 Problem Body aches R52 Active confirmed 70807562 Problem Elevated blood pressure read ing in office with diagnosis of hypertension I10 Active confirmed 87413640 Problem Pure hypercholesterolemia E78.00 Active confirmed 125219467 Problem Cigarette nicotine dependence without complication F17.210 Active confirmed 24654665 Problem Mild episode of recurrent major depressive disorder F33.0 Active confirmed 599214417 ALLERGIES No Known Allergies ENCOUNTERS from 1950 to 2021-03-13 Encounter Location Date Provider Diagnosis [facility] [address] [phone] [place] [address] Feb, Jose Vazquez IMMUNIZATIONS Vaccine Route Administration [...] Unknown Language: Question Answer Notes Languages spoken: Malagasy Hoahaoism: Question Answer Notes Hoahaoism No episcopalian beliefs that would impact health care. Sexual [...] Provider Name:Jose George, 2021-03-14 11: 00:00 AM, [address] [place] [address] , [place], [address], Provider Name:Garcia George 2021-04-12 10: 30:00 AM, [address] [place] [address], , [place], [place], [id number], Insurance Providers Payer Name Payer Address Payer Phone Insured Name Patient Relati onship to Insured Coverage Start Date Coverage End Date MEDICAID [employer] [address] [facility] [id number] ALEX JAMES [facility] [address] [facility] [id number] ALEX JAMES self
--- OUTSIDE RECORDS SUMMARY | 2021-06-12 13:30 | CCD ---
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 Manager Name Role Phone Primo Hdz NP Unavailable Unavailable Primo Hdz NP Unavailable Unavailable Primo Hdz NP Unavailable Unavailable DE YCAZA STEELE, Riya SHIRLEY MD Unavailable Unavailable DE YCAZA STEELE, Riya SHIRLEY MD Unavailable Unavailable DE YCAZA STEELE, Riya SHIRLEY MD Unavailable Unavailable DE YCAZA STEELE, Riya SHIRLEY MD Unavailable Unavailable DE YCAZA STEELE, Riya SHIRLEY MD Unavailable Unavailable DE YCAZA STEELE, Riya SHIRLEY MD Unavailable Unavailable DE YCAZA STEELE, Riya SHIRLEY MD Unavailable Unavailable DE YCAZA STEELE, Riya SHIRLEY MD Unavailable Unavailable DE YCAZA STEELE, Riya SHIRLEY MD Unavailable Unavailable DE YCAZA STEELE, Riya SHIRLEY MD Unavailable Unavailable DE YCAZA STEELE, Riya SHIRLEY MD Unavailable Unavailable DE YCAZA STEELE, Riya SHIRLEY MD Unavailable Unavailable PHYSICIAN, PHYSICIAN ER Unavailable Unavailable Rafat Sheth MD Unavailable Unavailable Rafat Sheth MD Unavailable Unavailable Rafat Sheth MD Unavailable Unavailable Rafat Sheth MD Unavailable Unavailable Rafat Sheth MD Unavailable Unavailable Rafat Sheth MD Unavailable Unavailable Rafat Sheth MD Unavailable Unavailable Rafat Sheth MD Unavailable Unavailable Rafat Sheth MD Unavailable Unavailable Rafat Sheth MD Unavailable Unavailable Rafat Sheth MD Unavailable Unavailable Rafat Sheth MD Unavailable Unavailable Rafat Sheth MD Unavailable Unavailable Rafat Sheth MD Unavailable Unavailable Rafat Sheth MD Unavailable Unavailable Rafat Sheth MD Unavailable Unavailable Rafat Sheth MD Unavailable Unavailable Rafat Sheth MD Unavailable Unavailable PorRafat pantoja MD Unavailable Unavailable Rafat Sheth MD Unavailable Unavailable Rafat Sheth MD Unavailable Unavailable Rafat Sheth MD Unavailable Unavailable Rafat Sheth MD Unavailable Unavailable Rafat Sheth MD Unavailable Unavailable Rafat Sheth MD Unavailable Unavailable Rafat Sheth MD Unavailable Unavailable Rafat Sheth MD Unavailable Unavailable Rafat Sheth MD Unavailable Unavailable Rafat Sheth MD Unavailable Unavailable MARSHA, Heidi SAUER MD Unavailable Unavailable MARSHA, Heidi SAUER MD Unavailable Unavailable MARSHA, Heidi SAUER MD Unavailable Unavailable MARSHA, Heidi SAUER MD Unavailable Unavailable MARSHA, Heidi SAUER MD Unavailable Unavailable MARSHA, Hiedi SAUER MD Unavailable Unavailable MARSHA, Heidi SAUER MD Unavailable Unavailable MARSHA, Heidi SAUER MD Unavailable Unavailable MARSHA, Heidi SAUER MD Unavailable Unavailable MARSHA, Heidi SAUER MD Unavailable Unavailable MARSHA, Heidi SAUER MD Unavailable Unavailable MARSHA, Heidi SAUER MD Unavailable Unavailable MARSHA, Heidi SAUER MD Unavailable Unavailable MARSHA, Heidi SAUER MD Unavailable Unavailable MARSHA, Heidi SAUER MD Unavailable Unavailable MARSHA, Heidi SAUER MD Unavailable Unavailable MARSHA, Heidi SAUER MD Unavailable Unavailable MARSHA, Heidi SAUER MD Unavailable Unavailable MARSHA, Heidi SAUER MD Unavailable Unavailable MARSHA, Heidi SAUER MD Unavailable Unavailable MARSHA, Heidi SAUER MD Unavailable Unavailable MARSHA, Heidi SAUER MD Unavailable Unavailable MARSHA, Heidi SAUER MD Unavailable Unavailable MARSHA, Heidi SAUER MD Unavailable Unavailable MARSHA, Heidi SAUER MD Unavailable Unavailable MARSHA, Heidi SAUER MD Unavailable Unavailable MARSHA, Heidi SAEUR MD Unavailable Unavailable MARSHA, Heidi SAUER MD Unavailable Unavailable MARSHA, Heidi SAUER MD Unavailable Unavailable MARSHA, Heidi SAUER MD Unavailable Unavailable MARSHA, Heidi SAUER MD Unavailable Unavailable MARSHA, Heidi SAUER MD Unavailable Unavailable MARSHA, Heidi SAUER MD Unavailable Unavailable MARSHA, Heidi SAUER MD Unavailable Unavailable MARSHA, Heidi SAUER MD Unavailable Unavailable MARSHA, Heidi SAUER MD Unavailable Unavailable MARSHA, Heidi SAUER MD Unavailable Unavailable MARSHA, Heidi SAUER MD Unavailable Unavailable MARSHA, Heidi SAUER MD Unavailable Unavailable MARSHA, Heidi SAUER MD Unavailable Unavailable MARSHA, Heidi SAUER MD Unavailable Unavailable Jessica Leone Unavailable UNKNOWN Unavailable Unavailable LANDSBERG, Heidi Pike MD Unavailable Unavailable LANDSBERG, Heidi Pike MD Unavailable Unavailable LANDSBERG, Heidi Pike MD Unavailable Unavailable LANDSBERG, Heidi Pike MD Unavailable Unavailable LANDSBERG, M Shahzad MATAMOROS Unavailable Unavailable LANDSBERG, M Shahzad MATAMOROS Unavailable Unavailable LANDSBERG, M Shahzad MATAMOROS Unavailable Unavailable LANDSBERG, M Shahzad MATAMOROS Unavailable Unavailable LANDSBERG, M Shahzad MATAMOROS Unavailable Unavailable LANDSBERG, M Shahzad MATAMOROS Unavailable Unavailable LANDSBERG, Heidi Pike MD Unavailable Unavailable LANDSBERG, M Shahzad MATAMOROS Unavailable Unavailable LANDSBERG, M Shahzad MATAMOROS Unavailable Unavailable LANDSBERG, M Shahzad MATAMOROS Unavailable Unavailable GOSHOW, J CHELO PA Unavailable Unavailable GOSHOW, J CHELO PA Unavailable Unavailable GOSHOW, J CHELO PA Unavailable Unavailable GOSHOW, J CHELO PA Unavailable Unavailable GOSHOW, J CHELO PA Unavailable Unavailable GOSHOW, J CHELO PA Unavailable Unavailable RupeshRajesh cuellar Unavailable Unavailable PHYSICIAN, ER Unavailable Unavailable Re-disclosure Warning The records that you are about to access may contain information from federally-assisted alcohol or drug abuse programs. If such information is present, then the following federally mandated warning applies: This information has been disclosed to you from records protected by federal confidentiality rules (42 CFR part 2). The federal rules prohibit you from making any further disclosure of this information unless further disclosure is expressly permitted by the written consent of the person to whom it pertains or as otherwise permitted by 42 CFR part 2. A general authorization for the release of medical or other information is NOT sufficient for this purpose. The Federal rules restrict any use of the information to criminally investigate or prosecute any alcohol or drug abuse patient.The records that you are about to access may contain highly sensitive health information, the redisclosure of which is protected by Article 27-F of the [facility] Public Health law. If you continue you may have access to information: Regarding HIV / AIDS; Provided by facilities licensed or operated by the [facility] Office of Mental Health; or Provided by the [facility] Office for People With Developmental Disabilities. If such information is present, then the following [facility] mandated warning applies: This information has been disclosed to you from confidential records which are protected by state law. State law prohibits you from making any further disclosure of this information without the specific written consent of the person to whom it pertains, or as otherwise permitted by law. Any unauthorized further disclosure in violation of state law may result in a fine or skilled nursing sentence or both. A general authorization for the release of medical or other information is NOT sufficient authorization for further disc losure. Allergies and Adverse Reactions Type Description Substance Reaction Status Data Source(s ) Propensity to adverse reactions to substance prazosin Prazosin 2 MG Oral Capsule dizziness Active [facility] ([facility]) No Known Drug Allergies No Known Drug Allergies No Known Drug Aller gies active [facility] ([facility] ) Family History Family Member Name Family Member Gender Family Member Status Date o f Status Description Data Source(s) Unknown Female Problem [facility] ([facility]) Encounters Encounter Providers Location Date Indications Data Source(s ) Unknown [address] [facility] [place] [address] 06/08/2021 12:00:00 AM EDT [facility] Unknown [address] [facility] [place] [address] 06/06/2021 12:00:00 AM EDT [facility] [place] [address] [facility] [place] [address] 05/21/2021 12:00:00 AM EDT [facility] [place] [address] [facility] [place] [address] 05/14/2021 12:00:00 AM EDT [facility]CW1 ([facility] [place] [address] [facility] [place] [address] 2021 12:00:00 AM EDT [facility]CW1 [facility] [place] [address] [facility] [place] [address] 05/08/2021 12:00:00 AM EDT eCW1 ([facility] Outpatient [address] [facility] [place] [address] 05/04/2021 12:00:00 AM EDT eCW1 ([facility] Unknown [address] [facility] Y [address] 05/04/2021 12:00:00 AM EDT [facility]CW1 [facility] [place] [address] [facility] [place] [address] 04/20/2021 12:00:00 AM EDT [facility] [address] [facility] [place] [address] 04/13/2021 12:00:00 AM EDT [facility]CW1 [facility]) Extended Individual Psychotherapy - 45 min Attender: Atilio Leone [facility] 04/05/2021 10:00:00 AM EDT - 04/05/2021 10:00:00 [facility]: Jessica Leone 04/05/2021 12:00:00 A M EDT [facility] [address] [facility] [address] 03/14/2021 12:00:00 AM EDT [facility] [address] [facility] [place] [address] 03/13/2021 12:00:00 AM EDT [facility]CW1 [facility] Unknown [address] [facility] [place] [address] 03/13/2021 12:00:00 AM EDT [facility]CW1 [facility] Unknown [address] [facility] [place] [address] 03/08/2021 12:00:00 AM EDT [facility]CW1 [facility] Outpatient Attender: Solomon Hdz NP [facility] 03/07/2021 10:30:00 AM EDT - 03/07/2021 10:30:00 AM EDT [facility] ([facility]) Attender: Solomon Hdz NP 03/07/2021 12:00:00 AM EDT [facility] Attender: Solomon Hdz NP [facility] 01/16/2021 01:30:00 AM EDT - 01/16/2021 01:30:00 AM EDT [facility] ([facility]) Attender: Solomon Hdz NP 01/16/2021 12:00:00 AM EDT [facility] ([facility]) Extended Individual Psychotherapy - 45 min Attender: Atilio Hammondsandracarlos [facility] 01/09/2021 09:00:00 AM EDT - 01/09/2021 09:00:00 AM EDT [facility] ([facility]) Attender: Jessica Leone 01/09/2021 12:00:00 A M EDT [facility] ([facility]) Outpatient [address] [facility] [place] [address] 01/01/2021 12:00:00 AM EDT eCW1 ([facility]) Extended Individual Psychotherapy - 45 min Attender: Atilio Hammondcarlos [facility] 12/26/2020 09:00:00 AM EDT - 12/26/2020 09:00:00 AM EDT [facility] ([facility]) Attender: Jessica Leone 12/26/2020 12:00:00 A M EDT [facility] ([facility]) Unknown [address] [facility] [place] [address] 12/21/2020 12:00:00 AM EDT eCW1 ([facility]) Outpatient Attender: oSlomon Hdz NP [facility] 12/19/2020 01:00:00 AM EDT - 12/19/2020 01:00:00 AM EDT [facility] ([facility]) Attender: Solomon Hdz NP 12/19/2020 12:00:00 AM EDT [facility] ([facility]) Unknown [address] [facility] [place] [address] 12/15/2020 12:00:00 AM EDT eCW1 ([facility]) Brief Individual Psychotherapy - 30 min Attender: Jessica wall [facility] 12/12/2020 12:45:00 PM EDT - 12/12/2020 12:45:00 PM EDT [facility]: Jessica Leone 12/12/2020 12:00:00 A M EDT [facility] [address] [facility] [place] [address] 12/08/2020 12:00:00 AM EDT eCW1 ([facility]) Outpatient Attender: UNKNOWN CPSCAORT-LABEJN 12/06/2020 09:42:[address] [facility] Inpatient Attender: Rafat Sheth MDAdmitter: Rafat dewitt MD ED-MSP 12/05/2020 07:41:00 PM EDT - 12/08/2020 09:25:00 AM EDT F10.20 [facility] F10.20 Patient discharged. Unknown [address] [facility] [place] [address] 12/05/2020 12:00:00 AM EDT eCW1 ([facility]) Outpatient Attender: Solomon Hdz NP [facility] 11/21/2020 01:00:00 AM EDT - 11/21/2020 01:00:00 AM EDT [facility] ([facility]) Outpatient Attender: Solomon Hdz NP [facility] 11/21/2020 01:00:00 AM EDT - 11/21/2020 01:00:00 AM EDT [facility] ([facility]) Attender: Solomon Hdz NP 11/21/2020 12:00:00 AM EDT [facility] Psych[facility] - 45 min Attender: Atilio Leone [facility] 11/14/2020 09:00:00 AM EDT - 11/14/2020 09:00:00 AM EDT [facility]: Jessica Leone 11/14/2020 12:00:00 A M EDT [facility] Psychotherapy - 45 min Attender: Atilio Leone [facility] 10/19/2020 08:45:00 AM EST - 10/19/2020 08:45:00 AM EST [facility] ([facility]) Attender: Jessica Leone 10/19/2020 12:00:00 A M EST [facility] ([facility]) Outpatient Attender: Solomon Hdz NP [facility] 10/17/2020 01:00:00 AM EST - 10/17/2020 01:00:00 AM EST [facility] ([facility]) Attender: Solomon Hdz NP 10/17/2020 12:00:00 AM EST [facility] ([facility]) Unknown [address] [facility] [place] [address] 10/11/2020 12:00:00 AM EST eCW1 ([facility]) Outpatient [address] [facility] [place] [address] 10/02/2020 12:00:00 AM EST eCW1 ([facility]) Attender: Jessica Leone 09/27/2020 12:00:00 A M EST [facility] ([facility]) TEMPMHCTelemed 30" Psychotherapy Attender: Jessica Leone [facility] 09/26/2020 09:00:00 AM EST - 09/26/2020 09:00:00 AM EST [facility] ([facility]) Outpatient [address] [facility] [place] [address] 09/14/2020 12:00:00 AM EST eCW1 ([facility]) Unknown [address] [facility] [address] 09/11/2020 12:00:00 AM EST [facility]CW1 [facility] Outpatient Attender: Solomon Hdz NP [facility] 09/05/2020 12:30:00 PM EST - 09/05/2020 12:30:00 PM EST [facility] ([facility]) Attender: Solomon Hdz NP 09/05/2020 12:00:00 AM EST [facility] ([facility]) Unknown [address] [facility] [place] [address] 08/31/2020 12:00:00 AM EST eCW1 ([facility]) Unknown [address] [facility] [place] [address] 08/30/2020 12:00:00 AM EST eCW1 ([facility]) Outpatient [address] [facility] [place] [address] 08/30/2020 12:00:00 AM EST eCW1 ([facility]) Extended Individual Psychotherapy - 45 min Attender: Atilio Leone [facility] 08/22/2020 09:00:00 AM EST - 08/22/2020 09:00:00 AM EST [facility] ([facility]) Attender: Jessica Leone 08/22/2020 12:00:00 A M EST [facility] ([facility]) Unknown [address] [facility] [place] [address] 08/21/2020 12:00:00 AM EST eCW1 ([facility]) Outpatient Attender: Solomon Hdz NP [facility] 07/28/2020 11:30:00 AM EST - 07/28/2020 11:30:00 AM EST [facility] ([facility]) Attender: Solomon Hdz NP 07/28/2020 12:00:00 AM EST [facility] ([facility]) Extended Individual Psychotherapy - 45 min Attender: Atilio Leone [facility] 07/25/2020 09:00:00 AM EST - 07/25/2020 09:00:00 AM EST [facility] ([facility]) Attender: Jessica Leone 07/25/2020 12:00:00 A M EST [facility] ([facility]) Outpatient [address] [facility] [place] [address] 07/11/2020 12:00:00 AM EST [facility]CW1 [facility] Extended Individual Psychotherapy - 45 min Attender: Atilio Leone [facility] 07/04/2020 09:00:00 AM EST - 07/04/2020 09:00:00 AM EST [facility] ([facility]) Attender: Jessica Vasu 07/04/2020 12:00:00 A M EST [facility] ([facility]) Unknown [address] [facility] [place] [address] 06/21/2020 12:00:00 AM EDT eCW1 ([facility]) Extended Individual Psychotherapy - 45 min Attender: Atilio Leone [facility] 06/20/2020 09:00:00 AM EDT - 06/20/2020 09:00:00 AM EDT [facility] ([facility]) Attender: Jessica Leone 06/20/2020 12:00:00 A M EDT [facility] ([facility]) Extended Individual Psychotherapy - 45 min [facility]: [facility]/06/2020 12:00:00 PM EDT - 06/06/2020 12:00:00 PM EDT [facility] ([facility]) Attender: Jessicarios Leone 06/06/2020 12:00:00 A M EDT [facility] ([facility]) Unknown [address] [facility] [place] [address] 05/24/2020 12:00:00 AM EDT [facility] 05/15/2020 01:00:00 AM EDT - 020 10:42:46 AM EDT [facility]SMART ([facility]) [id number]"Psychotherapy [facility]: [facility] 04/26/2020 09:45:00 AM EDT - 04/26/2020 09:45:00 AM EDT [facility] ([facility]) Inpatient Attender: [facility] MDAttender: Shahzad TAVARES MDAttender: ER PHYSICIAN 04/26/2020 12:50:00 AM EDT [facility] ( in Healthcare facility) Attender: MONALISA BERG MDAttender: Shahzad TAVARES MDAdmitter: Shahzad TAVARES MDConsultant: Rajesh Goddard 04/26/2020 12:50:00 AM EDT [facility] Attender: Jessica Leone 04/26/2020 12:00:00 A M [facility] Att[facility]: [facility] MDAttender: CHELO OCONNOR PAAttender: ER PHYSICIANAdmitter: CHELO KEMP 0 04/25/2020 10:57:28 PM EDT [facility] Inpatient Attender: CASPER YAN [facility] MDAttender: Shahzad TAVARES MDAttender: ER PHYSICIANAdmitter: Shahzad TAVARES MD 0 04/25/2020 10:15:00 PM EDT - 05/12/2020 06:21:00 PM EDT GI BLEEDING [facility] GI BLEEDING Patient discharged. Outpatient 04/25/2020 06:20:00 PM EDT GI bleed [facility] GI bleed Inpatient Attender: CRISTIANE LARSON MDAdmitter: CRISTIANE LARSON MD ED-MSP 09/13/2019 11:30:00 AM EST - 09/17/2019 09:15:00 AM EST F1020 [facility] F1020 Patient discharged. Functional Status Immunizations Vaccine Date Status Description Data Source(s) 03/14/2021 12:33:00 PM EDT completed e CW1 ([facility]) 03/14/2021 12:33:00 PM EDT completed e CW1 ([facility]) 03/14/2021 12:33:00 PM EDT completed e CW1 ([facility]) 03/14/2021 12:33:00 PM EDT completed e CW1 ([facility]) 03/14/2021 12:33:00 PM EDT completed e CW1 ([facility]) 03/14/2021 12:33:00 PM EDT completed e CW1 ([facility]) 03/14/2021 12:33:00 PM EDT completed e CW1 ([facility]) 03/14/2021 12:33:00 PM EDT completed e CW1 ([facility]) 03/14/2021 12:33:00 PM EDT completed e CW1 ([facility]) 03/14/2021 12:33:00 PM EDT completed e CW1 ([facility]) 03/14/2021 12:33:00 PM EDT completed e CW1 ([facility]) COVID-19 VACCINE Moderna 11/24/2020 12:00:00 AM EDT completed [facility] Vaccine Series Complete: YESThis Data wa s Submitted to [facility] [employer]. COVID-19 VACCINE Moderna 10/27/2020 12:00:00 AM EST completed [employer]IS Vaccine Series Complete: NOThis Data was Submitted to [facility] [employer]. Medications Medication Brand Name Start Date Product Form Dose Route Admi nistrative Instructions Pharmacy Instructions Status Indications Reaction Description Data Source(s) Amoxicillin 875 MG / Clavulanate 125 MG Oral Tablet 87 5-125 mg AMOXICILLIN/POTASSIUM CLAV 06/05/2021 12:00:00 AM EDT tablet 10 TAKE ONE TABLET BY MOUTH TWICE A DAY TAKE ONE TABLET BY MOUTH TWICE A DAY SOLD: 06/05/2021 [facility] 10 mEq 06/05/2021 12:00:00 AM EDT tablet,ER particles/cry stals 112 TAKE FOUR TABLETS BY MOUTH TWICE A DAY TAKE FOUR TABLETS BY MOUTH TWICE A DAY SOLD: 06/05/2021 [facility] 325 mg 06/05/2021 12:00:00 AM EDT tablet 30 TAKE TWO TABLETS BY MOUTH EVERY 4 HOURS NEEDED FOR PAIN MILD OR TEMP GREATER THAN 101 TAKE TWO TABLETS BY MOUTH EVERY 4 HOURS NEEDED FOR PAIN MILD OR TEMP GREATER THAN 101 SOLD: 06/05/2021 [facility] potassium phosphate 155 MG / Sodium Phos phate, Dibasic 852 MG / Sodium Phosphate, Monobasic 130 MG Oral Tablet 250 mg SOD PHOS DI, MONO/K PHOS MONO 06/05/2021 12:00:00 AM EDT tablet 63 TAKE THREE TABLETS BY MOUTH THREE TIMES A DAY TAKE THREE TABLETS BY MOUTH THREE TIMES A DAY SOLD: 06/08/2021 [facility] Citalopram 20 MG Oral Tablet CITALOPRAM HYDROBROMIDE 05/22/2021 12:00:00 AM EDT tablet 30 TAKE 1 TABLET BY MOUTH ONCE A DAY TAKE 1 TABLET BY MOUTH ONCE A DAY SOLD: 05/22/2021 [facility] 2 % 05/04/2021 12:00:00 AM EDT ointment 44 APPLY A THIN LAYER TO RECTAL AREA EXTERNALLY THREE TIMES A DAY FOR 10 DAYS APPLY A THIN LAYER TO RECTAL AREA EXTERNALLY THREE TIMES A DAY FOR 10 DAYS SOLD: 05/07/2021 [facility] Mupirocin 0.02 MG/MG Topical Ointment Mupirocin 2 % Mupiroci n 2 % 05/04/2021 12:00:00 AM EDT active Mupiroci n 2 % eCW1 ([facility]) Mupirocin 0.02 MG/MG Topical Ointment Mupirocin 2 % Mupiroci n 2 % 05/04/2021 12:00:00 AM EDT suspended Mupir ocin 2 % eCW1 ([facility]) 2 % 05/04/2021 12:00:00 AM EDT ointment 44 APPLY A THIN LAYER TO RECTAL AREA EXTERNALLY THREE TIMES A DAY FOR 10 DAYS APPLY A THIN LAYER TO RECTAL AREA EXTERNALLY THREE TIMES A DAY FOR 10 DAYS SOLD: 05/22/2021 [facility] Mupirocin 0.02 MG/MG Topical Ointment Mupirocin 2 % Mupiroci n 2 % 05/04/2021 12:00:00 AM EDT active Mupiroci n 2 % eCW1 ([facility]) Mupirocin 0.02 MG/MG Topical Ointment Mupirocin 2 % Mupiroci n 2 % 05/04/2021 12:00:00 AM EDT suspended Mupir ocin 2 % eCW1 ([facility]) Mupirocin 0.02 MG/MG Topical Ointment Mupirocin 2 % Mupiroci n 2 % 05/04/2021 12:00:00 AM EDT active Mupiroci n 2 % eCW1 ([facility]) Mupirocin 0.02 MG/MG Topical Ointment Mupirocin 2 % Mupiroci n 2 % 05/04/2021 12:00:00 AM EDT active Mupiroci n 2 % eCW1 ([facility]) Mupirocin 0.02 MG/MG Topical Ointment Mupirocin 2 % Mupiroci n 2 % 05/04/2021 12:00:00 AM EDT active Mupiroci n 2 % eCW1 ([facility]) Mupirocin 0.02 MG/MG Topical Ointment Mupirocin 2 % Mupiroci n 2 % 05/04/2021 12:00:00 AM EDT active Mupiroci n 2 % eCW1 ([facility]) buspirone hydrochloride 10 MG Oral Tablet BUSPIRONE HCL 04/18/2021 12:00:00 AM EDT tablet 60 TAKE ONE TABLET BY MOUTH TWI CE A DAY TAKE ONE TABLET BY MOUTH TWICE A DAY SOLD: 05/26/2021 [facility] buspirone hydrochloride 10 MG Oral Tablet BUSPIRONE HCL 04/18/2021 12:00:00 AM EDT tablet 60 TAKE ONE TABLET BY MOUTH TWI CE A DAY TAKE ONE TABLET BY MOUTH TWICE A DAY SOLD: 04/30/2021 [facility] 15 mg 04/18/2021 12:00:00 AM EDT tablet 30 TAKE ONE TABLET BY MOUTH AT BEDTIME TAKE ONE TABLET BY MOUTH AT BEDTIME SOLD: 05/26/2021 [facility] 15 mg 04/18/2021 12:00:00 AM EDT tablet 30 TAKE ONE TABLET BY MOUTH AT BEDTIME TAKE ONE TABLET BY MOUTH AT BEDTIME SOLD: 04/30/2021 [facility] Citalopram 20 MG Oral Tablet CITALOPRAM HYDROBROMIDE 04/17/2021 12:00:00 AM EDT tablet 30 TAKE ONE TABLET BY MOUTH EVERY D AY TAKE ONE TABLET BY MOUTH EVERY DAY SOLD: 04/18/2021 [facility] Nicotine 2 MG Chewing [facility] Nicotine 2 MG [facility] Nicotine 2 M G 04/13/2021 12:00:00 AM EDT active [facility]ennifer 2 MG eCW1 ([facility]) Nicotine 2 MG Chewing Gum [facility] Nicotine 2 MG [facility] Nicotine 2 M G 04/13/2021 12:00:00 AM EDT active [facility] jennifer 2 MG eCW1 ([facility]) 2 mg 04/13/2021 12:00:00 AM EDT gum 440 USE 1 PIECE BY MOUTH FOR 30 MINUTES AT A TIME 24 TIMES A DAY NEEDED USE 1 PIECE BY MOUTH FOR 30 MINUTES AT A TIME 24 TIMES A DAY NEEDED SOLD: 04/15/2021 [facility] Nicotine 2 MG Chewing Gum [facility] Nicotine 2 MG [facility] Nicotine 2 M G 04/13/2021 12:00:00 AM EDT suspended [facility] N icotine 2 MG eCW1 ([facility]) Nicotine 2 MG Chewing Gum [facility] Nicotine 2 MG [facility] Nicotine 2 M G 04/13/2021 12:00:00 AM EDT active [facility] jennifer 2 MG eCW1 ([facility]) Nicotine 2 MG Chewing Gum [facility] Nicotine 2 MG [facility] Nicotine 2 M G 04/13/2021 12:00:00 AM EDT active [facility]ennifer 2 MG eCW1 ([facility]) Nicotine 2 MG Chewing Gum [facility] Nicotine 2 MG [facility] Nicotine 2 M G 04/13/2021 12:00:00 AM EDT suspended [facility] icotine 2 MG eCW1 ([facility]) ferrous gluconate 324 MG Oral Tablet Ferrous Gluconate 324 (38 Fe) MG Ferrous Gluconate 324 (38 Fe) MG 04/13/2021 12:00:00 AM EDT active Ferrous Gluconate 324 (38 Fe) MG eCW1 ([facility]) Nicotine 2 MG Chewing Gum [facility] Nicotine 2 MG [facility] Nicotine 2 M G 04/13/2021 12:00:00 AM EDT active [facility] jennifer 2 MG eCW1 ([facility]) 324 mg (38 mg iron) 04/13/2021 12:00:00 AM EDT tablet 30 TAKE 1 TABLET BY MOUTH ONCE A DAY WITH WATER OR JUICE BETWEEN MEALS TAKE 1 TABLET BY MOUTH ONCE A DAY WITH WATER OR JUICE BETWEEN MEALS SOLD: 04/15/2021 [facility] Nicotine 2 MG Chewing Gum [facility] Nicotine 2 MG [facility] Nicotine 2 M G 04/13/2021 12:00:00 AM EDT suspended [facility] icotine 2 MG eCW1 ([facility]) Nicotine 2 MG Chewing Gum [facility] Nicotine 2 MG [facility] Nicotine 2 M G 04/13/2021 12:00:00 AM EDT suspended [facility] icotine 2 MG eCW1 ([facility]) Nicotine 2 MG Chewing Gum [facility] Nicotine 2 MG [facility] Nicotine 2 M G 04/13/2021 12:00:00 AM EDT active [facility] jennifer 2 MG eCW1 ([facility]) ferrous gluconate 324 MG Oral Tablet Ferrous Gluconate 324 (38 Fe) MG Ferrous Gluconate 324 (38 Fe) MG 04/13/2021 12:00:00 AM EDT active Ferrous Gluconate 324 (38 Fe) MG eCW1 ([facility]) 80 mg 03/21/2021 12:00:00 AM EDT tablet 90 TAKE ONE TABLET BY MOUTH EVERY DAY TAKE ONE TABLET BY MOUTH EVERY DAY SOLD: 03/28/2021 [facility] 1 mg 01/17/2021 12:00:00 AM EDT capsule 30 TAKE ONE CAPSULE BY MOUTH AT BEDTIME TAKE ONE CAPSULE BY MOUTH AT BEDTIME SOLD: 02/23/2021 [facility] 1 mg 01/17/2021 12:00:00 AM EDT capsule 30 TAKE ONE CAPSULE BY MOUTH AT BEDTIME TAKE ONE CAPSULE BY MOUTH AT BEDTIME SOLD: 03/28/2021 [facility] 1 mg 01/17/2021 12:00:00 AM EDT capsule 30 TAKE ONE CAPSULE BY MOUTH AT BEDTIME TAKE ONE CAPSULE BY MOUTH AT BEDTIME SOLD: 01/19/2021 [facility] Prazosin 1 MG Oral Capsule prazosin 01/16/2021 12:00:00 AM EDT 1 mg by mouth completed <td ID="Medicat ionRxNorm_4">082905</td><td ID="MedicationMedication_4">prazosin</td><td ID="MedicationRoute_4">by mouth</td><td ID="MedicationRouteConcept_4">[id number]</td><td ID="MedicationStartDate_4">01/16/2021</td><td ID="MedicationStopDate_4">04/16/2021</td><td ID="MedicationDosageFrequency_4">at bedtime</td><td ID="MedicationDuration_4">30</td><td ID="MedicationFormulaStrength_4">1 mg</td><td ID="MedicationDosageForm_4">capsule</td><td ID="MedicationDosageFormCode_4"></td><td ID="MedicationDosageDescription_4"></td><td ID="MedicationMedicationId_4">[id number]</td><td ID="MedicationAccount_4">[id number]</td><td ID="MedicationNpid_4">[id number]</td><td ID="MedicationAuthorFirstName_4">Solomon</td><td ID="MedicationAuthorLastName_4">Hdz</td><td ID="MedicationTaxonomyCode_4">[id number]</td><td ID="MedicationTaxonomyDesc_4">Nurse Practitioner</td><td ID="MedicationPhoneNumber_4">[phone]</td> [facility] ([facility]) 15 mg 01/08/2021 12:00:00 AM EDT tablet 30 TAKE ONE TABLET BY MOUTH AT BEDTIME TAKE ONE TABLET BY MOUTH AT BEDTIME SOLD: 01/12/2021 [facility] Citalopram 20 MG Oral Tablet CITALOPRAM HYDROBROMIDE 12/07/2020 12:00:00 AM EDT tablet 30 TAKE 1 TABLET BY MOUTH ONCE A DAY TAKE 1 TABLET BY MOUTH ONCE A DAY SOLD: 12/10/2020 [facility] buspirone hydrochloride 10 MG Oral Tablet BUSPIRONE HCL 12/07/2020 12:00:00 AM EDT tablet 60 TAKE ONE TABLET BY MOUTH TWI CE A DAY TAKE ONE TABLET BY MOUTH TWICE A DAY SOLD: 12/10/2020 [facility] 15 mg 10/18/2020 12:00:00 AM EST tablet 30 TAKE ONE TABLET BY MOUTH AT BEDTIME TAKE ONE TABLET BY MOUTH AT BEDTIME SOLD: 12/10/2020 [facility] 15 mg 10/18/2020 12:00:00 AM EST tablet 30 TAKE ONE TABLET BY MOUTH AT BEDTIME TAKE ONE TABLET BY MOUTH AT BEDTIME SOLD: 10/23/2020 [facility] Citalopram 20 MG Oral Tablet CITALOPRAM HYDROBROMIDE 10/04/2020 12:00:00 AM EST tablet 30 TAKE 1 TABLET BY MOUTH ONCE A DAY TAKE 1 TABLET BY MOUTH ONCE A DAY SOLD: 10/09/2020 [facility] buspirone hydrochloride 10 MG Oral Tablet BUSPIRONE HCL 10/04/2020 12:00:00 AM EST tablet 60 TAKE ONE TABLET BY MOUTH TWI CE A DAY TAKE ONE TABLET BY MOUTH TWICE A DAY SOLD: 11/09/2020 [facility] Citalopram 20 MG Oral Tablet CITALOPRAM HYDROBROMIDE 10/04/2020 12:00:00 AM EST tablet 30 TAKE 1 TABLET BY MOUTH ONCE A DAY TAKE 1 TABLET BY MOUTH ONCE A DAY SOLD: 11/09/2020 [facility] buspirone hydrochloride 10 MG Oral Tablet BUSPIRONE HCL 10/04/2020 12:00:00 AM EST tablet 60 TAKE ONE TABLET BY MOUTH TWI CE A DAY TAKE ONE TABLET BY MOUTH TWICE A DAY SOLD: 10/09/2020 [facility] 7.5 mg 10/04/2020 12:00:00 AM EST tablet 30 TAKE ONE TABLET BY MOUTH AT BEDTIME TAKE ONE TABLET BY MOUTH AT BEDTIME SOLD: 10/09/2020 [facility] Citalopram 20 MG Oral Tablet citalopram 10/03/2020 12:00:00 AM EST 20 mg completed <td ID="Medicati onRxNorm_2">[id number]</td><td ID="MedicationMedication_2">citalopram</td><td ID="MedicationRoute_2"></td><td ID="MedicationRouteConcept_2"></td><td ID="MedicationStartDate_2">10/03/2020</td><td ID="MedicationStopDate_2"></td><td ID="MedicationDosageFrequency_2"></td><td ID="MedicationDuration_2">30</td><td ID="MedicationFormulaStrength_2">20 mg</td><td ID="MedicationDosageForm_2">tablet</td><td ID="MedicationDosageFormCode_2"></td><td ID="MedicationDosageDescription_2"></td><td ID="MedicationMedicationId_2">[id number]</td><td ID="MedicationAccount_2">[id number]</td><td ID="MedicationNpid_2">[id number]</td><td ID="MedicationAuthorFirstName_2">Solomon</td><td ID="MedicationAuthorLastName_2">Hdz</td><td ID="MedicationTaxonomyCode_2">[id number]</td><td ID="MedicationTaxonomyDesc_2">Nurse Practitioner</td><td ID="MedicationPhoneNumber_2">[phone]</td> [facility] ([facility]) buspirone hydrochloride 10 MG Oral Tablet buspirone 2020 12:00:00 AM EST 10 mg completed <td ID="Medica tionRxNorm_3">[id number]</td><td ID="MedicationMedication_3">buspirone</td><td ID="MedicationRoute_3"></td><td ID="MedicationRouteConcept_3"></td><td ID="MedicationStartDate_3">10/03/2020</td><td ID="MedicationStopDate_3"></td><td ID="MedicationDosageFrequency_3"></td><td ID="MedicationDuration_3">30</td><td ID="MedicationFormulaStrength_3">10 mg</td><td ID="MedicationDosageForm_3">tablet</td><td ID="MedicationDosageFormCode_3"></td><td ID="MedicationDosageDescription_3"></td><td ID="MedicationMedicationId_3">[id number]</td><td ID="MedicationAccount_3">[id number]</td><td ID="MedicationNpid_3">[id number]</td><td ID="MedicationAuthorFirstName_3">Solomon</td><td ID="MedicationAuthorLastName_3">Hdz</td><td ID="MedicationTaxonomyCode_3">[id number]</td><td ID="MedicationTaxonomyDesc_3">Nurse Practitioner</td><td ID="MedicationPhoneNumber_3">[phone]</td> [facility] ([facility]) Mirtazapine 15 MG Oral Tablet mirtazapine 10/03/2020 12:00:00 AM EST 15 mg completed <td ID="Medicat ionRxNorm_1">[id number]</td><td ID="MedicationMedication_1">mirtazapine</td><td ID="MedicationRoute_1"></td><td ID="MedicationRouteConcept_1"></td><td ID="MedicationStartDate_1">10/03/2020</td><td ID="MedicationStopDate_1"></td><td ID="MedicationDosageFrequency_1"></td><td ID="MedicationDuration_1">30</td><td ID="MedicationFormulaStrength_1">15 mg</td><td ID="MedicationDosageForm_1">tablet</td><td ID="MedicationDosageFormCode_1"></td><td ID="MedicationDosageDescription_1"></td><td ID="MedicationMedicationId_1">[id number]</td><td ID="MedicationAccount_1">[id number]</td><td ID="MedicationNpid_1">[id number]</td><td ID="MedicationAuthorFirstName_1">Solomon</td><td ID="MedicationAuthorLastName_1">Hdz</td><td ID="MedicationTaxonomyCode_1">[id number]</td><td ID="MedicationTaxonomyDesc_1">Nurse Practitioner</td><td ID="MedicationPhoneNumber_1">[phone]</td> [facility]) 80 mg 09/06/2020 12:00:00 AM EST tablet 30 TAKE ONE TABLET BY MOUTH EVERY DAY TAKE ONE TABLET BY MOUTH EVERY DAY SOLD: 11/09/2020 [facility] 80 mg 09/06/2020 12:00:00 AM EST tablet 30 TAKE ONE TABLET BY MOUTH EVERY DAY TAKE ONE TABLET BY MOUTH EVERY DAY SOLD: 02/23/2021 [facility] 80 mg 09/06/2020 12:00:00 AM EST tablet 30 TAKE ONE TABLET BY MOUTH EVERY DAY TAKE ONE TABLET BY MOUTH EVERY DAY SOLD: 10/09/2020 [facility] 80 mg 09/06/2020 12:00:00 AM EST tablet 30 TAKE ONE TABLET BY MOUTH EVERY DAY TAKE ONE TABLET BY MOUTH EVERY DAY SOLD: 01/12/2021 [facility] 80 mg 09/06/2020 12:00:00 AM EST tablet 30 TAKE ONE TABLET BY MOUTH EVERY DAY TAKE ONE TABLET BY MOUTH EVERY DAY SOLD: 09/06/2020 [facility] 80 mg 09/06/2020 12:00:00 AM EST tablet 30 TAKE ONE TABLET BY MOUTH EVERY DAY TAKE ONE TABLET BY MOUTH EVERY DAY SOLD: 12/10/2020 [facility] Prolia 60mg/ml UNK 09/01/2020 12:00:00 AM EST active Prolia 60mg/ml eCW1 ([facility]) Prolia 60mg/ml UNK 09/01/2020 12:00:00 AM EST active Prolia 60mg/ml eCW1 ([facility]) Prolia 60mg/ml UNK 09/01/2020 12:00:00 AM EST active Prolia 60mg/ml eCW1 ([facility]) Prolia 60mg/ml UNK 09/01/2020 12:00:00 AM EST active Prolia 60mg/ml eCW1 ([facility]) Prolia 60mg/ml UNK 09/01/2020 12:00:00 AM EST active Prolia 60mg/ml eCW1 ([facility]) Prolia 60mg/ml UNK 09/01/2020 12:00:00 AM EST active Prolia 60mg/ml eCW1 ([facility]) Prolia 60mg/ml UNK 09/01/2020 12:00:00 AM EST active Prolia 60mg/ml eCW1 ([facility]) Prolia 60mg/ml UNK 09/01/2020 12:00:00 AM EST active Prolia 60mg/ml eCW1 ([facility]) Prolia 60mg/ml UNK 09/01/2020 12:00:00 AM EST active Prolia 60mg/ml eCW1 ([facility]) Prolia 60mg/ml UNK 09/01/2020 12:00:00 AM EST active Prolia 60mg/ml eCW1 ([facility]) Prolia 60mg/ml UNK 09/01/2020 12:00:00 AM EST active Prolia 60mg/ml eCW1 ([facility]) Prolia 60mg/ml UNK 09/01/2020 12:00:00 AM EST active Prolia 60mg/ml eCW1 ([facility]) Prolia 60mg/ml UNK 09/01/2020 12:00:00 AM EST active Prolia 60mg/ml eCW1 ([facility]) Prolia 60mg/ml UNK 09/01/2020 12:00:00 AM EST active Prolia 60mg/ml eCW1 ([facility]) Prolia 60mg/ml UNK 09/01/2020 12:00:00 AM EST active Prolia 60mg/ml eCW1 ([facility]) Prolia 60mg/ml UNK 09/01/2020 12:00:00 AM EST active Prolia 60mg/ml eCW1 ([facility]) Prolia 60mg/ml UNK 09/01/2020 12:00:00 AM EST active Prolia 60mg/ml eCW1 ([facility]) Prolia 60mg/ml UNK 09/01/2020 12:00:00 AM EST active Prolia 60mg/ml eCW1 ([facility]) 2.5 % 09/01/2020 12:00:00 AM EST cream with perineal carmen licator 28 APPLY 1 APPLICATION EXTERNALLY TO AFFECTED AREA(S) TWICE A DAY NEEDED FOR 7 DAYS APPLY 1 APPLICATION EXTERNALLY TO AFFECTED AREA(S) TWICE A DAY NEEDED FOR 7 DAYS SOLD: 09/06/2020 [facility] Prolia 60mg/ml UNK 09/01/2020 12:00:00 AM EST active Prolia 60mg/ml eCW1 ([facility]) Prolia 60mg/ml UNK 09/01/2020 12:00:00 AM EST active Prolia 60mg/ml eCW1 ([facility]) Prolia 60mg/ml UNK 09/01/2020 12:00:00 AM EST active Prolia 60mg/ml eCW1 ([facility]) Prolia 60mg/ml UNK 09/01/2020 12:00:00 AM EST active Prolia 60mg/ml eCW1 ([facility]) Prolia 60mg/ml UNK 09/01/2020 12:00:00 AM EST active Prolia 60mg/ml eCW1 ([facility]) Prolia 60mg/ml UNK 09/01/2020 12:00:00 AM EST active Prolia 60mg/ml eCW1 ([facility]) ferrous gluconate 324 MG Oral Tablet Ferrous Gluconate 324 (38 Fe) MG Ferrous Gluconate 324 (38 Fe) MG 08/31/2020 12:00:00 AM EST active Ferrous Gluconate 324 (38 Fe) MG eCW1 ([facility]) ferrous gluconate 324 MG Oral Tablet Ferrous Gluconate 324 (38 Fe) MG Ferrous Gluconate 324 (38 Fe) MG 08/31/2020 12:00:00 AM EST active Ferrous Gluconate 324 (38 Fe) MG eCW1 ([facility]) ferrous gluconate 324 MG Oral Tablet Ferrous Gluconate 324 (38 Fe) MG Ferrous Gluconate 324 (38 Fe) MG 08/31/2020 12:00:00 AM EST active Ferrous Gluconate 324 (38 Fe) MG eCW1 ([facility]) ferrous gluconate 324 MG Oral Tablet Ferrous Gluconate 324 (38 Fe) MG Ferrous Gluconate 324 (38 Fe) MG 08/31/2020 12:00:00 AM EST active Ferrous Gluconate 324 (38 Fe) MG eCW1 ([facility]) ferrous gluconate 324 MG Oral Tablet Ferrous Gluconate 324 (38 Fe) MG Ferrous Gluconate 324 (38 Fe) MG 08/31/2020 12:00:00 AM EST active Ferrous Gluconate 324 (38 Fe) MG eCW1 ([facility]) ferrous gluconate 324 MG Oral Tablet Ferrous Gluconate 324 (38 Fe) MG Ferrous Gluconate 324 (38 Fe) MG 08/31/2020 12:00:00 AM EST active Ferrous Gluconate 324 (38 Fe) MG eCW1 ([facility]) ferrous gluconate 324 MG Oral Tablet Ferrous Gluconate 324 (38 Fe) MG Ferrous Gluconate 324 (38 Fe) MG 08/31/2020 12:00:00 AM EST active Ferrous Gluconate 324 (38 Fe) MG eCW1 ([facility]) ferrous gluconate 324 MG Oral Tablet Ferrous Gluconate 324 (38 Fe) MG Ferrous Gluconate 324 (38 Fe) MG 08/31/2020 12:00:00 AM EST active Ferrous Gluconate 324 (38 Fe) MG eCW1 ([facility]) ferrous gluconate 324 MG Oral Tablet Ferrous Gluconate 324 (38 Fe) MG Ferrous Gluconate 324 (38 Fe) MG 08/31/2020 12:00:00 AM EST active Ferrous Gluconate 324 (38 Fe) MG eCW1 ([facility]) ferrous gluconate 324 MG Oral Tablet Ferrous Gluconate 324 (38 Fe) MG Ferrous Gluconate 324 (38 Fe) MG 08/31/2020 12:00:00 AM EST active Ferrous Gluconate 324 (38 Fe) MG eCW1 ([facility]) ferrous gluconate 324 MG Oral Tablet Ferrous Gluconate 324 (38 Fe) MG Ferrous Gluconate 324 (38 Fe) MG 08/31/2020 12:00:00 AM EST active Ferrous Gluconate 324 (38 Fe) MG eCW1 ([facility]) ferrous gluconate 324 MG Oral Tablet Ferrous Gluconate 324 (38 Fe) MG Ferrous Gluconate 324 (38 Fe) MG 08/31/2020 12:00:00 AM EST active Ferrous Gluconate 324 (38 Fe) MG eCW1 ([facility]) ferrous gluconate 324 MG Oral Tablet Ferrous Gluconate 324 (38 Fe) MG Ferrous Gluconate 324 (38 Fe) MG 08/31/2020 12:00:00 AM EST active Ferrous Gluconate 324 (38 Fe) MG W1 ([facility]) ferrous gluconate 324 MG Oral Tablet Ferrous Gluconate 324 (38 Fe) MG Ferrous Gluconate 324 (38 Fe) MG 08/31/2020 12:00:00 AM EST active Ferrous Gluconate 324 (38 Fe) MG eCW1 ([facility]) ferrous gluconate 324 MG Oral Tablet Ferrous Gluconate 324 (38 Fe) MG Ferrous Gluconate 324 (38 Fe) MG 08/31/2020 12:00:00 AM EST active Ferrous Gluconate 324 (38 Fe) MG W1 ([facility]) ferrous gluconate 324 MG Oral Tablet Ferrous Gluconate 324 (38 Fe) MG Ferrous Gluconate 324 (38 Fe) MG 08/31/2020 12:00:00 AM EST active Ferrous Gluconate 324 (38 Fe) MG eCW1 ([facility]) ferrous gluconate 324 MG Oral Tablet Ferrous Gluconate 324 (38 Fe) MG Ferrous Gluconate 324 (38 Fe) MG 08/31/2020 12:00:00 AM EST active Ferrous Gluconate 324 (38 Fe) MG eCW1 ([facility]) ferrous gluconate 324 MG Oral Tablet Ferrous Gluconate 324 (38 Fe) MG Ferrous Gluconate 324 (38 Fe) MG 08/31/2020 12:00:00 AM EST active Ferrous Gluconate 324 (38 Fe) MG eCW1 ([facility]) ferrous gluconate 324 MG Oral Tablet Ferrous Gluconate 324 (38 Fe) MG Ferrous Gluconate 324 (38 Fe) MG 08/31/2020 12:00:00 AM EST active Ferrous Gluconate 324 (38 Fe) MG eCW1 ([facility]) ferrous gluconate 324 MG Oral Tablet Ferrous Gluconate 324 (38 Fe) MG Ferrous Gluconate 324 (38 Fe) MG 08/31/2020 12:00:00 AM EST active Ferrous Gluconate 324 (38 Fe) MG eCW1 ([facility]) ferrous gluconate 324 MG Oral Tablet Ferrous Gluconate 324 (38 Fe) MG Ferrous Gluconate 324 (38 Fe) MG 08/31/2020 12:00:00 AM EST active Ferrous Gluconate 324 (38 Fe) MG eCW1 ([facility]) ferrous gluconate 324 MG Oral Tablet Ferrous Gluconate 324 (38 Fe) MG Ferrous Gluconate 324 (38 Fe) MG 08/31/2020 12:00:00 AM EST active Ferrous Gluconate 324 (38 Fe) MG eCW1 ([facility]) 324 mg (38 mg iron) 08/31/2020 12:00:00 AM EST tablet 15 TAKE ONE TABLET BY MOUTH EVERY OTHER DAY WITH WATER OR JUICE BETWEEN MEALS TAKE ONE TABLET BY MOUTH EVERY OTHER DAY WITH WATER OR JUICE BETWEEN MEALS SOLD: 08/31/2020 [facility] ferrous gluconate 324 MG Oral Tablet Ferrous Gluconate 324 (38 Fe) MG Ferrous Gluconate 324 (38 Fe) MG 08/31/2020 12:00:00 AM EST active Ferrous Gluconate 324 (38 Fe) MG eCW1 ([facility]) ferrous gluconate 324 MG Oral Tablet Ferrous Gluconate 324 (38 Fe) MG Ferrous Gluconate 324 (38 Fe) MG 08/31/2020 12:00:00 AM EST active Ferrous Gluconate 324 (38 Fe) MG eCW1 ([facility]) ferrous gluconate 324 MG Oral Tablet Ferrous Gluconate 324 (38 Fe) MG Ferrous Gluconate 324 (38 Fe) MG 08/31/2020 12:00:00 AM EST active Ferrous Gluconate 324 (38 Fe) MG eCW1 ([facility]) ferrous gluconate 324 MG Oral Tablet Ferrous Gluconate 324 (38 Fe) MG Ferrous Gluconate 324 (38 Fe) MG 08/31/2020 12:00:00 AM EST active Ferrous Gluconate 324 (38 Fe) MG eCW1 ([facility]) buspirone hydrochloride 10 MG Oral Tablet BUSPIRONE HCL 06/30/2020 12:00:00 AM EST tablet 60 TAKE ONE TABLET BY MOUTH TWI CE A DAY TAKE ONE TABLET BY MOUTH TWICE A DAY SOLD: 09/06/2020 [facility] Citalopram 20 MG Oral Tablet CITALOPRAM HYDROBROMIDE 06/30/2020 12:00:00 AM EST tablet 30 TAKE 1 TABLET BY MOUTH ONCE A DAY TAKE 1 TABLET BY MOUTH ONCE A DAY SOLD: 07/01/2020 [facility] 7.5 mg 06/30/2020 12:00:00 AM EST tablet 30 TAKE ONE TABLET BY MOUTH AT BEDTIME TAKE ONE TABLET BY MOUTH AT BEDTIME SOLD: 08/03/2020 [facility] 7.5 mg 06/30/2020 12:00:00 AM EST tablet 30 TAKE ONE TABLET BY MOUTH AT BEDTIME TAKE ONE TABLET BY MOUTH AT BEDTIME SOLD: 09/06/2020 [facility] Mirtazapine 7.5 MG Oral Tablet mirtazapine 06/30/2020 12:00:00 AM EST 7.5 mg by mouth completed <td ID="Medica tionRxNorm_2">[id number]</td><td ID="MedicationMedication_2">mirtazapine</td><td ID="MedicationRoute_2">by mouth</td><td ID="MedicationRouteConcept_2">[id number]</td><td ID="MedicationStartDate_2">06/30/2020</td><td ID="MedicationStopDate_2">09/28/2020</td><td ID="MedicationDosageFrequency_2">at bedtime</td><td ID="MedicationDuration_2">30</td><td ID="MedicationFormulaStrength_2">7.5 mg</td><td ID="MedicationDosageForm_2">tablet</td><td ID="MedicationDosageFormCode_2"></td><td ID="MedicationDosageDescription_2"></td><td ID="MedicationMedicationId_2">[id number]</td><td ID="MedicationAccount_2">[id number]</td><td ID="MedicationNpid_2">[id number]</td><td ID="MedicationAuthorFirstName_2">Solomon</td><td ID="MedicationAuthorLastName_2">Hdz</td><td ID="MedicationTaxonomyCode_2">[id number]</td><td ID="MedicationTaxonomyDesc_2">Nurse Practitioner</td><td ID="MedicationPhoneNumber_2">[phone]</td> [facility] Citalopram 20 MG Oral Tablet CITALOPRAM HYDROBROMIDE 06/30/2020 12:00:00 AM EST tablet 30 TAKE 1 TABLET BY MOUTH ONCE A DAY TAKE 1 TABLET BY MOUTH ONCE A DAY SOLD: 08/03/2020 [facility] buspirone hydrochloride 10 MG Oral Tablet BUSPIRONE HCL 06/30/2020 12:00:00 AM EST tablet 60 TAKE ONE TABLET BY MOUTH TWI CE A DAY TAKE ONE TABLET BY MOUTH TWICE A DAY SOLD: 08/03/2020 [facility] 7.5 mg 06/30/2020 12:00:00 AM EST tablet 30 TAKE ONE TABLET BY MOUTH AT BEDTIME TAKE ONE TABLET BY MOUTH AT BEDTIME SOLD: 07/01/2020 [facility] Citalopram 20 MG Oral Tablet CITALOPRAM HYDROBROMIDE 06/30/2020 12:00:00 AM EST tablet 30 TAKE 1 TABLET BY MOUTH ONCE A DAY TAKE 1 TABLET BY MOUTH ONCE A DAY SOLD: 09/06/2020 [facility] buspirone hydrochloride 10 MG Oral Tablet BUSPIRONE HCL 06/30/2020 12:00:00 AM EST tablet 60 TAKE ONE TABLET BY MOUTH TWI CE A DAY TAKE ONE TABLET BY MOUTH TWICE A DAY SOLD: 07/01/2020 [facility] buspirone hydrochloride 10 MG Oral Tablet buspirone 2019 12:00:00 AM EST 10 mg by mouth completed <td ID="Medic ationRxNorm_3">[id number]</td><td ID="MedicationMedication_3">buspirone</td><td ID="MedicationRoute_3">by mouth</td><td ID="MedicationRouteConcept_3">[id number]</td><td ID="MedicationStartDate_3">06/30/2020</td><td ID="MedicationStopDate_3">09/28/2020</td><td ID="MedicationDosageFrequency_3">twice a day</td><td ID="MedicationDuration_3">30</td><td ID="MedicationFormulaStrength_3">10 mg</td><td ID="MedicationDosageForm_3">tablet</td><td ID="MedicationDosageFormCode_3"></td><td ID="MedicationDosageDescription_3"></td><td ID="MedicationMedicationId_3">[id number]</td><td ID="MedicationAccount_3">[id number]</td><td ID="MedicationNpid_3">[id number]</td><td ID="MedicationAuthorFirstName_3">Solomon</td><td ID="MedicationAuthorLastName_3">Hdz</td><td ID="MedicationTaxonomyCode_3">[id number]</td><td ID="MedicationTaxonomyDesc_3">Nurse Practitioner</td><td ID="MedicationPhoneNumber_3">[phone]</td> [facility] ([facility]) Citalopram 20 MG Oral Tablet citalopram 06/30/2020 12:00:00 AM EST 20 mg by mouth completed <td ID="Medica tionRxNorm_1">[id number]</td><td ID="MedicationMedication_1">citalopram</td><td ID="MedicationRoute_1">by mouth</td><td ID="MedicationRouteConcept_1">[id number]</td><td ID="MedicationStartDate_1">06/30/2020</td><td ID="MedicationStopDate_1">09/28/2020</td><td ID="MedicationDosageFrequency_1">once a day</td><td ID="MedicationDuration_1">30</td><td ID="MedicationFormulaStrength_1">20 mg</td><td ID="MedicationDosageForm_1">tablet</td><td ID="MedicationDosageFormCode_1"></td><td ID="MedicationDosageDescription_1"></td><td ID="MedicationMedicationId_1">[id number]</td><td ID="MedicationAccount_1">[id number]</td><td ID="MedicationNpid_1">[id number]</td><td ID="MedicationAuthorFirstName_1">Solomon</td><td ID="MedicationAuthorLastName_1">Hdz</td><td ID="MedicationTaxonomyCode_1">[id number]</td><td ID="MedicationTaxonomyDesc_1">Nurse Practitioner</td><td ID="MedicationPhoneNumber_1">[phone]</td> [facility] ([facility]) Hydrocortisone 25 MG/ML Topical Cream Hydrocortisone ( Perianal) 2.5 % Hydrocortisone (Perianal) 2.5 % 06/21/2020 12:00:00 AM EDT 1.0 { application} active Hydrocortisone (Mely anal) 2.5 % eCW1 ([facility]) Hydrocortisone 25 MG/ML Topical Cream Hydrocortisone ( Perianal) 2.5 % Hydrocortisone (Perianal) 2.5 % 06/21/2020 12:00:00 AM EDT 1.0 { application} active Hydrocortisone (Mely anal) 2.5 % eCW1 ([facility]) Hydrocortisone 25 MG/ML Topical Cream Hydrocortisone ( Perianal) 2.5 % Hydrocortisone (Perianal) 2.5 % 06/21/2020 12:00:00 AM EDT 1.0 { application} active Hydrocortisone (Mely anal) 2.5 % eCW1 ([facility]) Hydrocortisone 25 MG/ML Topical Cream Hydrocortisone ( Perianal) 2.5 % Hydrocortisone (Perianal) 2.5 % 06/21/2020 12:00:00 AM EDT 1.0 { application} active Hydrocortisone (Mely anal) 2.5 % eCW1 ([facility]) Hydrocortisone 25 MG/ML Topical Cream Hydrocortisone ( Perianal) 2.5 % Hydrocortisone (Perianal) 2.5 % 06/21/2020 12:00:00 AM EDT 1.0 { application} active Hydrocortisone (Mely anal) 2.5 % eCW1 ([facility]) Hydrocortisone 25 MG/ML Topical Cream Hydrocortisone ( Perianal) 2.5 % Hydrocortisone (Perianal) 2.5 % 06/21/2020 12:00:00 AM EDT 1.0 { application} active Hydrocortisone (Mely anal) 2.5 % eCW1 ([facility]) Hydrocortisone 25 MG/ML Topical Cream Hydrocortisone ( Perianal) 2.5 % Hydrocortisone (Perianal) 2.5 % 06/21/2020 12:00:00 AM EDT 1.0 { application} active Hydrocortisone (Mely anal) 2.5 % eCW1 ([facility]) Hydrocortisone 25 MG/ML Topical Cream Hydrocortisone ( Perianal) 2.5 % Hydrocortisone (Perianal) 2.5 % 06/21/2020 12:00:00 AM EDT 1.0 { application} active Hydrocortisone (Mely anal) 2.5 % eCW1 ([facility]) 2.5 % 06/21/2020 12:00:00 AM EDT cream with perineal carmen licator 28 APPLY TO AFFECTED AREA(S) TWO TIMES A DAY NEEDED FOR 7 DAYS APPLY TO AFFECTED AREA(S) TWO TIMES A DAY NEEDED FOR 7 DAYS SOLD: 06/21/2020 [facility] Hydrocortisone 25 MG/ML Topical Cream Hydrocortisone ( Perianal) 2.5 % Hydrocortisone (Perianal) 2.5 % 06/21/2020 12:00:00 AM EDT 1.0 { application} active Hydrocortisone (Mely anal) 2.5 % eCW1 ([facility]) Hydrocortisone 25 MG/ML Topical Cream Hydrocortisone ( Perianal) 2.5 % Hydrocortisone (Perianal) 2.5 % 06/21/2020 12:00:00 AM EDT 1.0 { application} active Hydrocortisone (Mely anal) 2.5 % eCW1 ([facility]) Hydrocortisone 25 MG/ML Topical Cream Hydrocortisone ( Perianal) 2.5 % Hydrocortisone (Perianal) 2.5 % 06/21/2020 12:00:00 AM EDT 1.0 { application} active Hydrocortisone (Mely anal) 2.5 % eCW1 ([facility]) Hydrocortisone 25 MG/ML Topical Cream Hydrocortisone ( Perianal) 2.5 % Hydrocortisone (Perianal) 2.5 % 06/21/2020 12:00:00 AM EDT 1.0 { application} active Hydrocortisone (Mely anal) 2.5 % eCW1 ([facility]) Hydrocortisone 25 MG/ML Topical Cream Hydrocortisone ( Perianal) 2.5 % Hydrocortisone (Perianal) 2.5 % 06/21/2020 12:00:00 AM EDT 1.0 { application} active Hydrocortisone (Mely anal) 2.5 % eCW1 ([facility]) Hydrocortisone 25 MG/ML Topical Cream Hydrocortisone ( Perianal) 2.5 % Hydrocortisone (Perianal) 2.5 % 06/21/2020 12:00:00 AM EDT 1.0 { application} active Hydrocortisone (Mely anal) 2.5 % eCW1 ([facility]) Hydrocortisone 25 MG/ML Topical Cream Hydrocortisone ( Perianal) 2.5 % Hydrocortisone (Perianal) 2.5 % 06/21/2020 12:00:00 AM EDT 1.0 { application} active Hydrocortisone (Mely anal) 2.5 % eCW1 ([facility]) Hydrocortisone 25 MG/ML Topical Cream Hydrocortisone ( Perianal) 2.5 % Hydrocortisone (Perianal) 2.5 % 06/21/2020 12:00:00 AM EDT 1.0 { application} active Hydrocortisone (Mely anal) 2.5 % eCW1 ([facility]) Hydrocortisone 25 MG/ML Topical Cream Hydrocortisone ( Perianal) 2.5 % Hydrocortisone (Perianal) 2.5 % 06/21/2020 12:00:00 AM EDT 1.0 { application} active Hydrocortisone (Mely anal) 2.5 % eCW1 ([facility]) Hydrocortisone 25 MG/ML Topical Cream Hydrocortisone ( Perianal) 2.5 % Hydrocortisone (Perianal) 2.5 % 06/21/2020 12:00:00 AM EDT 1.0 { application} active Hydrocortisone (Mely anal) 2.5 % eCW1 ([facility]) Hydrocortisone 25 MG/ML Topical Cream Hydrocortisone ( Perianal) 2.5 % Hydrocortisone (Perianal) 2.5 % 06/21/2020 12:00:00 AM EDT 1.0 { application} active Hydrocortisone (Mely anal) 2.5 % eCW1 ([facility]) Hydrocortisone 25 MG/ML Topical Cream Hydrocortisone ( Perianal) 2.5 % Hydrocortisone (Perianal) 2.5 % 06/21/2020 12:00:00 AM EDT 1.0 { application} active Hydrocortisone (Mely anal) 2.5 % eCW1 ([facility]) Hydrocortisone 25 MG/ML Topical Cream Hydrocortisone ( Perianal) 2.5 % Hydrocortisone (Perianal) 2.5 % 06/21/2020 12:00:00 AM EDT 1.0 { application} active Hydrocortisone (Mely anal) 2.5 % eCW1 ([facility]) Hydrocortisone 25 MG/ML Topical Cream Hydrocortisone ( Perianal) 2.5 % Hydrocortisone (Perianal) 2.5 % 06/21/2020 12:00:00 AM EDT 1.0 { application} active Hydrocortisone (Mely anal) 2.5 % eCW1 ([facility]) Hydrocortisone (Perianal) 1 % Hydrocortisone (Perianal) 04/26 01:00:00 AM EDT completed NETSMAR T ([facility]) Vagisil Maximum Strength 20-3 % Vagisil Maximum Strength 01:00:00 AM EDT completed NETSMAR T ([facility]) Cranberry Ultra Strength 250-60 MG Cranberry Ultra Strength 05/18/2020 01:00:00 AM EDT completed NETSMAR T ([facility]) Calcium 600+D3 600-800 MG-UNIT Calcium 600+D3 05/15/2020 01:00:00 AM E DT completed NETSMART ([facility]) Vitamin D3 1000 UNIT Vitamin D3 05/15/2020 01:00:00 AM EDT completed NETSMART ([facility]) Sucralfate 1 GM Sucralfate 05/15/2020 01:00:00 AM EDT completed [facility]SMART ([facility]) Ibuprofen 200 MG Ibuprofen 05/15/2020 01:00:00 AM EDT completed [facility]SMART ([facility]) Aleve 220 MG Aleve 05/15/2020 01:00:00 AM EDT comp leted NETSMART ([facility]) Benadryl Allergy 25 MG Benadryl Allergy 05/15/2020 01:00:00 AM EDT completed NETSMART ([facility]) C-1000 1000 MG C-1000 05/15/2020 01:00:00 AM EDT c ompleted NETSMART ([facility]) Tums Extra Strength 750 750 MG Tums Extra Strength 750 05/15 01:00:00 AM EDT completed NETSMAR T ([facility]) Melatonin 10 MG Melatonin 05/15/2020 01:00:00 AM EDT completed NETSMART ([facility]) Stress B Complex/Iron Stress B Complex/Iron 05/15/2020 01:00:00 AM EDT completed NETSMART ([facility]) Neosporin Original Neosporin Original 05/15/2020 01:00:00 AM EDT completed NETSMART ([facility]) Pantoprazole Sodium 40 MG Pantoprazole Sodium 05/15/2020 01:00:00 AM E DT completed NETSMART ([facility]) Eliquis 2.5 MG Eliquis 05/15/2020 01:00:00 AM EDT 1.0 {tablet} completed NETSMART ([facility]) Citalopram Hydrobromide 20 MG Citalopram Hydrobromide 2019 01:00:00 AM EDT completed NETSMAR T ([facility]) Atorvastatin Calcium 80 MG Atorvastatin Calcium 05/15/2020 01:00:00 A M EDT completed NETSMART ( [facility]) 1 gram 05/13/2020 12:00:00 AM EDT tablet 120 TAKE ONE TABLET BY MOUTH FOUR TIMES A DAY TAKE ONE TABLET BY MOUTH FOUR TIMES A DAY SOLD: 05/14/2020 [facility] 40 mg 05/13/2020 12:00:00 AM EDT tablet,delayed release (DR/EC) 60 TAKE ONE TABLET BY MOUTH EVERY 12 HOURS TAKE ONE TABLET BY MOUTH EVERY 12 HOURS SOLD: 05/14/2020 [facility] atorvastatin 80 MG Oral Tablet ATORVASTATIN CALCIUM 05/13/2020 1 2:00:00 AM EDT tablet 30 TAKE ONE TABLET BY MOUTH EVERY D AY TAKE ONE TABLET BY MOUTH EVERY DAY SOLD: 05/14/2020 [facility] 2.5 mg 05/12/2020 12:00:00 AM EDT tablet 60 TAKE ONE TABLET BY MOUTH TWICE A DAY TAKE ONE TABLET BY MOUTH TWICE A DAY SOLD: 05/12/2020 [facility] atorvastatin 80 MG Oral Tablet ATORVASTATIN CALCIUM 03/22/2020 1 2:00:00 AM EDT tablet 90 TAKE ONE TABLET BY MOUTH EVERY D AY TAKE ONE TABLET BY MOUTH EVERY DAY SOLD: 06/11/2020 [facility] 20 mg 03/22/2020 12:00:00 AM EDT tablet 30 TAKE ONE TABLET BY MOUTH EVERY DAY TAKE ONE TABLET BY MOUTH EVERY DAY SOLD: 05/12/2020 [facility] 20 mg 03/22/2020 12:00:00 AM EDT tablet 30 TAKE ONE TABLET BY MOUTH EVERY DAY TAKE ONE TABLET BY MOUTH EVERY DAY SOLD: 06/11/2020 [facility] Citalopram 20 MG Oral Tablet CITALOPRAM HYDROBROMIDE 03/22/2020 12:00:00 AM EDT tablet 30 TAKE ONE TABLET BY MOUTH EVERY D AY TAKE ONE TABLET BY MOUTH EVERY DAY SOLD: 02/25/2021 [facility] Insurance Providers Payer name Policy type / Coverage type Policy ID Covered constitution party ID Covered constitution party's relationship to nielsen Policy Nielsen Plan Information [facility] COMMUNITY PLAN [facility] [id number] SP [id number] [facility] [id number] SP [id number] [facility] COMMUNITY PLAN [facility] [id number] SP [id number] MEDICARE [id number] S [id number] [facility] Community Plan Commercial [id number] Self [id number] [facility] Community Plan Commercial [id number] Self [id number] EMEDNY [id number] SP [id number] [facility] M[facility] [id number] SP [id number] [facility] MEDICARE [id number] S [id number] MEDICAID [id number] MEDICARE JOSHUA [id number] S [id number] [facility] HEA [id number] S [id number] MEDICAID GME [id number] S [id number] [facility] HEA [id number] S 1 [id number] MEDICAID [id number] SP [id number] [facility] COMMUNTY PLAN [id number] 18 [id number] [facility] [id number] [facility] COMMUNITY PLAN [id number] 18 [id number] [facility] Community Plan Commercial [id number] Self [id number] [facility] [id number] Self [id number] [facility] Communty Plan Medicaid [id number] Self [id number] [facility] COMMUNITY PLAN XIX [id number] 18 [id number] MEDICAID -PHYSICIAN [id number] [facility] COMMUNTY PLAN [id number] 18 [id number] [facility] Community Plan Commercial [id number] Self 1 [id number] Medicaid [facility] Medicaid [id number] Self [id number] [facility] Communty Plan Medicaid [id number] Self [id number] [facility] Community Plan Commercial [id number] Self 1 [id number] Medicaid [facility] Medicaid [id number] Self [id number] [facility] Communty Plan Medicaid [id number] Self [id number] [facility] MEDICARE O/P [id number] 18 [id number] Medicaid [facility] Medicaid [id number] Self [id number] [facility] Communty Plan Medicaid [id number] Self [id number] [facility] Community Plan Commercial [id number] Self [id number] MEDICAID -O/[id number] EMERGENCY ROOM [id number] HC COMMUNITY PLAN [facility] [id number] SP [id number] MEDICARE [id number] SP [id number] [facility] COMMUNITY PLAN [facility] [id number] SP [id number] [facility] [id number] Self [id number] [facility] [id number] Self [id number] [facility] Medigap Part B [id number] Self [id number] Medicaid [facility] Part B [id number] Self [id number] Medicaid [facility] Medicaid [id number] Self [id number] [facility] Communty Plan Medicaid [id number] Self [id number] MEDICAID -CLINIC [id number] [employer] [facility] MEDICARE-PHYSICIAN [id number] 18 [id number] MEDICARE COMPLETE-[facility] O [id number] S [id number] [facility] Communty Plan Medicaid [id number] Self [id number] SELF PAY ONLY [id number] SP [id number] [facility] [id number] SP [id number] ALLSTATE INS CO NO FAULT O UN [id number] S UN ALLSTATE INS CO NO FAULT UN SI2 UN ALLSTATE INS CO NO FAULT [id number] Medicaid [place] Medicaid [id number] Self ALLSTATE INS CO NO FAULT O [id number] S [id number] [facility] MEDICAID [id number] SP [id number] N SELF PAY ONLY UNAVAILABLE SP UNAV AILABLE [facility]OO [id number] SP [id number] [facility] [id number] SP [id number] MEDICARE [id number] S [id number] MEDICAID [id number] S [id number] [facility] MEDICARE [id number] S [id number] EMEDNY [id number] SP [id number] [facility](MCA[facility]) O [id number] S [id number] MEDICAID M [id number] MEDICAID HEA [id number] S [id number] Problems, Conditions, and Diagnoses Code Display Name Description Problem Type Effective Dates Data Source(s) Z53.29 Procedure and treatment not carried out because of patient's decision for other reasons PROC/TRTMT NOT CRD OUT BEC PT DECISION FOR OTH REASONS Diagn osis 12/05/2020 07:41:00 PM EDT [facility] F10.20 Alcohol dependence, uncomplicated ALCOHOL DEPEND ENCE, UNCOMPLICATED Diagnosis 12/05/2020 07:41:00 PM EDT [facility] GI bleed GI bleed Diagnosis 04/25/2020 06:20:[address] 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 Problem 06/07/2021 12:00:00 AM EDT eCW1 ([facility]) R89.9 [id number] Abnormal laboratory test result Problem 05/08/2021 12:00:00 AM EDT eCW1 ([facility]) D50.0 [id number] Iron deficiency anemia due to chronic blo od loss Problem 04/12/2021 12:00:00 AM EDT eCW1 ([facility]) F43.9 Reaction to severe stress, unspecified U nspecified Trauma- and Stressor- Related Disorder Condition 04/05/2021 12:00:00 AM EDT [facility] ( [facility]) F41.0 Panic disorder [episodic paroxysmal anxiety] Panic Dis order Condition 04/05/2021 12:00:00 AM EDT [facility] ([facility]) F17.200 Nicotine dependence, unspecified, uncomp licated Tobacco Use Disorder, Severe Condition 04/05/2021 12:00:00 AM EDT [facility] ( [facility]) F10.20 Alcohol dependence, uncomplicated Alcohol Use Disorder , Severe Condition 04/05/2021 12:00:00 AM EDT [facility] ([facility]) F41.9 Anxiety disorder, unspecified Unspecified Anxiety Diso rder Condition 04/05/2021 12:00:00 AM EDT [facility] ([facility]) F51.5 [id number] Nightmares Problem 10/02/2020 12:00:00 AM ES T eCW1 ([facility]) M81.0 Age-related osteoporosis Age-related ost eoporosis without current pathological fracture Problem 09/01/2020 12:00:00 AM EST eCW1 ([facility]) 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, single episod e, in partial remission Major Depressive Disorder, Single episode, In partial remission Condition 06/20/2020 12:00:00 AM EDT [facility] ([facility]) K85.20 Alcohol induced acute pancreatitis witho ut necrosis or infection Alcohol induced acute pancreatitis without necrosis or infection Problem 04/25/2020 01:00:00 AM EDT NETSMART ([facility] ) F10.20 Alcohol dependence, uncomplicated Alcohol depend ence, uncomplicated Problem 04/25/2020 01:00:00 AM EDT NETSMART ([facility]) J69.0 Pneumonitis due to inhalation of food an d vomit Pneumonitis due to inhalation of food and vomit Problem 04/25/2020 01:00:00 AM EDT NETS MART ([facility]) I82.B19 Acute embolism and thrombosis of unspeci fied subclavian vein Acute embolism and thrombosis of unspecified subclavian vein Problem 04/25/2020 01:00:00 AM EDT NETSMART ([facility] ) F17.210 Nicotine dependence, cigarettes, uncompl icated Nicotine dependence, cigarettes, uncomplicated Problem 04/25/2020 01:00:00 AM EDT NETSMAR T ([facility]) M81.0 Age-related osteoporosis without current pathological fracture Age-related osteoporosis without current pathological fracture Problem 08/2019 01:00:00 AM EDT NETSMART ([facility] ) F41.9 Anxiety disorder, unspecified Anxiety disorder, unspec ified Problem 04/25/2020 01:00:00 AM EDT NETSMART ([facility] ) F32.9 Major depressive disorder, single episod e, unspecified Major depressive disorder, single episode, unspecified Problem 04/25/2020 01:00:00 AM EDT NETSMART ([facility]) Z91.81 History of falling History of falling Problem 0 01:00:00 AM EDT NETSMART ([facility]) Z60.2 Problems related to living alone Problems related to l iving alone Problem 04/25/2020 01:00:00 AM EDT NETSMART ([facility] ) Z79.01 assisted (current) use of anticoagulant s assisted (current) use of anticoagulants Problem 04/25/2020 01:00:00 AM EDT NETSMART ([facility]) Z79.1 roasterman (current) use of non-steroidal anti-inflammatories (NSAID) assisted (current) use of non-steroidal anti-inflammatories (NSAID) Problem 04/25/2020 01:00:00 AM EDT NETSMART ([facility] ) K92.2 Gastrointestinal hemorrhage, unspecified Gastrointestinal hemorrhage, unspecified Problem 04/25/2020 01:00:00 AM EDT NETSMART ([facility]) G16819 {At Risk for Deliberate Self Harm (Restr aint Risk)} {At Risk for Deliberate Self Harm (Restraint Risk)} Status:Resolved. Problem 04/28/2020 12:00:00 AM EDT [facility] Surgeries/Procedures Procedure Description Date Indications Data Source(s) Extended Individual Psychotherapy - 45 min 04/05/2021 12:00:00 AM EDT - 04/05/2021 12:00:00 AM EDT [facility] ([facility]) Extended Individual Psychotherapy - 45 min 12:00:00 AM EDT [facility] Un[facility] biologics 03/14/2021 12:00:00 AM EDT eCW1 ([facility]) [facility] Telemed E/M Lvl 3--Est pt 03/07/2021 12:00:00 AM EDT - 03/07/2021 12:00:00 AM EDT [facility] ([facility]) Telemed A/O 30" 03/07/2021 12:00:00 AM EDT [facility] Telemed E/M Lvl 3--Est pt 03/07/2021 12:00:00 AM E DT [facility] Tele[facility] E/M Lvl 3--Est pt 01/16/2021 12:00:00 AM EDT - 01/16/2021 12:00:00 AM EDT [facility] ([facility]) Telemed A/O 30" 01/16/2021 12:00:00 AM EDT [facility] Tele[facility] E/M Lvl 3--Est pt 01/16/2021 12:00:00 AM E DT [facility] Extended Individual Psychotherapy - 45 min 01/09/2021 12:00:00 AM EDT - 01/09/2021 12:00:00 AM EDT [facility] ([facility]) Extended Individual Psychotherapy - 45 min 12:00:00 AM EDT [facility] Extended Individual Psychotherapy - 45 min 12/26/2020 12:00:00 AM EDT - 12/26/2020 12:00:00 AM EDT [facility] ([facility]) Extended Individual Psychotherapy - 45 min 12:00:00 AM EDT [facility] Telemed E/M Lvl 3--Est pt 12/19/2020 12:00:00 AM EDT - 12/19/2020 12:00:00 AM EDT [facility] ([facility]) Telemed A/O 30" 12/19/2020 12:00:00 AM EDT [facility] Telemed E/M Lvl 3--Est pt 12/19/2020 12:00:00 AM E DT [facility] Brief Individual Psychotherapy - 30 min 12/12/2020 12:00:00 AM EDT - 12/12/2020 12:00:00 AM EDT [facility] ([facility]) Brief Individual Psychotherapy - 30 min 12/12/2020 12: 00:00 AM EDT [facility] Telemed E/M Lvl 3--Est pt 11/21/2020 12:00:00 AM EDT - 11/21/2020 12:00:00 AM EDT [facility] ([facility]) Telemed A/O 30" 11/21/2020 12:00:00 AM EDT [facility] Telemed E/M Lvl 3--Est pt 11/21/2020 12:00:00 AM E DT [facility] MHCTelemed E/M Lvl 5--Est pt 11/21/2020 12:00:00 AM ED T [facility] Extended Individual Psychotherapy - 45 min 11/14/2020 12:00:00 AM EDT - 11/14/2020 12:00:00 AM EDT [facility] ([facility]) Extended Individual Psychotherapy - 45 min 12:00:00 AM EDT [facility] Extended Individual Psychotherapy - 45 min 10/19/2020 12:00:00 AM EST - 10/19/2020 12:00:00 AM EST [facility] ([facility]) Extended Individual Psychotherapy - 45 min 12:00:00 AM EST [facility] Telemed E/M Lvl 3--Est pt 10/17/2020 12:00:00 AM EST - 10/17/2020 12:00:00 AM EST [facility] ([facility]) Telemed A/O 30" 10/17/2020 12:00:00 AM EST [facility] Telemed E/M Lvl 3--Est pt 10/17/2020 12:00:[address] [facility] TEMPMHCTelemed 30" Psychotherapy 021 12:00:00 AM EST - 09/27/2020 12:00:00 AM EST [facility] ([facility]) TEMPMHCTelemed 30" Psychotherapy 09/26/2020 12:00:00 A M EST [facility] biologics 09/14/2020 12:00:00 AM EST eCW1 ([facility]) MHC Telemed E/M Lvl 3--Est pt 09/05/2020 12:00:00 AM EST - 09/05/2020 12:00:00 AM EST [facility] ([facility]) Telemed A/O 30" 09/05/2020 12:00:00 AM EST [facility] MHC Telemed E/M Lvl 3--Est pt 09/05/2020 12:00:[address] [facility] Extended Individual Psychotherapy - 45 min 08/22/2020 12:00:00 AM EST - 08/22/2020 12:00:00 AM EST [facility] ([facility]) Extended Individual Psychotherapy - 45 min 0 12:00:00 AM EST [facility] MHC Telemed E/M Lvl 3--Est pt 07/28/2020 12:00:00 AM EST - 07/28/2020 12:00:00 AM EST [facility] ([facility]) Telemed A/O 30" 07/28/2020 12:00:00 AM EST [facility] Telemed E/M Lvl 3--Est pt 07/28/2020 12:00:[address] [facility] Individual Psychotherapy - 45 min 07/25/2020 12:00:00 AM EST - 07/25/2020 12:00:00 AM EST [facility] ([facility]) Extended Individual Psychotherapy - 45 min 0 12:00:00 AM EST [facility] Psychotherapy - 45 min 07/04/2020 12:00:00 AM EST - 07/04/2020 12:00:00 AM EST [facility] ([facility]) Extended Individual Psychotherapy - 45 min 0 12:00:00 AM EST [facility] ([facility]) Extended Individual Psychotherapy - 45 min 06/20/2020 12:00:00 AM EDT - 06/20/2020 12:00:00 AM EDT [facility] ([facility]) Extended Individual Psychotherapy - 45 min 0 12:00:00 AM EDT [facility] Psychotherapy - 45 min 06/06/2020 12:00:00 AM EDT - 06/06/2020 12:00:00 AM EDT [facility] ([facility]) Extended Individual Psychotherapy - 45 min 0 12:00:00 AM EDT [facility] Echocardiography Limited Or Follow-Up Study 04/28/2020 12:00:00 AM EDT [facility] ([facility]) INSJ NON-TUNNELED CENTRAL VENOUS CATH AGE 5 YR/> 04/28 12:00:00 AM EDT [facility] ([facility]) [id number]"Psychotherapy 0 12:00:00 AM EDT - 04/26/2020 12:00:00 AM EDT [facility] ([facility]) [id number]"Psychotherapy 04/26/2020 12:00:00 AM EDT [facility] Electro[facility]ogram Interpretation & Report Only 020 12:00:00 AM EDT [facility] ([facility]) Results ID Date Data Source [id number] 06/01/2021 06:28:00 PM EDT [facility] Name Value Range Interpretation Code Description Data Apurva rce(s) Supporting Document(s) SARS coronavirus 2 RNA [Presence] in Res piratory specimen by MINDY with probe detection NEGATIVE [facility] This lab was ordered by [facility] a nd reported by [facility]. ID Date Data Source TOTAL IRON BINDING CAPACIT 2021 12:00:00 AM EDT eCW1 ( [facility]) Name Value Range Interpretation Code Description Data Apurva rce(s) Supporting Document(s) 24.7 13.2-45.0 PERCENT SATURATION eCW1 ([facility]) 72 50-170 IRON (FE) eCW1 ([facility]) 291 250-450 TOTAL IRON BINDING CAPACI TY eCW1 ([facility]) ID Date Data Source FERRITIN 2021 12:00:00 AM EDT eCW1 ([facility]) Name Value Range Interpretation Code Description Data Apurva rce(s) Supporting Document(s) 109 8-252 FERRITIN eCW1 ([facility]) ID Date Data Source CBC with Differential 05/04/2021 12:00:00 AM EDT eCW1 ([facility]) Name Value Range Interpretation Code Description Data Apurva rce(s) Supporting Document(s) 14.1 4.0-10.0 WHITE BLOOD COUNT eCW1 ([facility]) 41.0 36.0-47.0 HEMATOCRIT eCW1 ([facility]) 3.99 4.00-5.40 RED BLOOD COUNT eCW1 ([facility]) 13.7 12.0-15.5 HEMOGLOBIN eCW1 ([facility]) 34.3 27.0-33.0 MEAN CORPUSCULAR HEMOGLOB IN eCW1 ([facility]) 102.8 80.0-96.0 MEAN CORPUSCULAR VOLUME e CW1 ([facility]) 33.4 32.0-36.5 MEAN CORPUSCULAR HGB CONC eCW1 ([facility]) 74.7 36.0-66.0 NEUTROPHILS % eCW1 ([facility]) 407 150-450 PLATELET COUNT, AUTOMATED eCW1 ([facility]) 12.7 11.5-14.5 RED CELL DISTRIBUTION WID TH eCW1 ([facility]) 0.9 0.0-3.0 EOS % eCW1 ([facility]) 7.9 2.0-8.0 MONO % eCW1 ([facility]) 15.2 24.0-44.0 LYMPH % eCW1 ([facility]) 1.1 0.0-0.8 MONO # eCW1 ([facility]) 10.5 1.5-8.5 NEUTROPHILS # eCW1 ([facility]) 2.2 1.5-5.0 LYMPH # eCW1 ([facility]) 0.7 0.0-1.0 BASO % eCW1 ([facility]) 0.1 0.0-0.5 EOS # eCW1 ([facility]) 0.1 0.0-0.2 BASO # eCW1 ([facility]) ID Date Data Source GASTROINTESTINAL GI PANEL (GIPANEL) 05/04/2021 12:00:00 AM EDT eCW1 ([facility]) Name Value Range Interpretation Code Description Data Paurva rce(s) Supporting Document(s) This Gastrointestinal PCR Panel detects the following bacteria, GASTROINTESTINAL (GI) PANEL W1 ([facility]) ID Date Data Source C REACTIVE PROTEIN QUANTITATIV (At [facility]) 05/04/2021 12:00 :00 AM EDT eCW1 ([facility]) Name Value Range Interpretation Code Description Data Apurva rce(s) Supporting Document(s) 4.93 0.00-0.30 C REACTIVE PROTEIN QUANTI TATIV eCW1 ([facility]) ID Date Data Source Comprehensive Metabolic Profile (CMP) 05/04/2021 12:00:00 AM EDT eCW1 ([facility]) Name Value Range Interpretation Code Description Data Apurva rce(s) Supporting Document(s) 0.59 0.55-1.30 CREATININE FOR GFR eCW1 ([facility]) 6 7-18 BLOOD UREA NITROGEN eCW1 ([facility]) 103 70-100 GLUCOSE, FASTING eCW1 ([facility]) 3.9 3.5-5.1 POTASSIUM SERUM eCW1 ([facility]) 135 136-145 SODIUM LEVEL eCW1 ([facility]) > 60.0 >45 GLOMERULAR FILTRATION RATE eCW 1 ([facility]) 8.6 8.8-10.2 CALCIUM LEVEL eCW1 ([facility]) 25 21-32 CARBON DIOXIDE LEVEL eCW1 ([facility]) 102 98-107 CHLORIDE LEVEL eCW1 ([facility]) 67 12-78 ALT/SGPT eCW1 ([facility]) 108 7-37 AST/SGOT eCW1 ([facility]) 195 45-117 ALKALINE PHOSPHATASE eCW1 ([facility]) 3.0 3.2-5.2 ALBUMIN eCW1 ([facility]) 1.1 0.2-1.0 BILIRUBIN,TOTAL eCW1 ([facility]) 7.0 6.4-8.2 TOTAL PROTEIN eCW1 ([facility]) 0.8 1.2-2.2 ALBUMIN/GLOBULIN RATIO eCW1 ([facility]) ID Date Data Source LIPASE 05/04/2021 12:00:00 AM EDT eCW1 ([facility]) Name Value Range Interpretation Code Description Data Apurva rce(s) Supporting Document(s) 117 73-393 LIPASE eCW1 ([facility]) ID Date Data Source ERYTHROCYTE SEDIMENTATION RATE 05/04/2021 12:00:00 AM EDT eC W1 ([facility]) Name Value Range Interpretation Code Description Data Apurva rce(s) Supporting Document(s) 48 0-30 ERYTHROCYTE SEDIMENTATION RATE eCW1 ([facility]) ID Date Data Source [id number] 12/07/2020 07:38:00 AM EDT [facility] Name Value Range Interpretation Code Description Data Apurva rce(s) Supporting Document(s) White Blood Count 3.5-10.5 Normal (applies to non-numeri c results) [facility] Red Blood Count 3.90-5.00 Normal (applies to non-numeric results) [facility] Hemoglobin 12.0-15.5 Normal (applies to non-numeric resul ts) [facility] Hematocrit 34.9-44.5 Normal (applies to non-numeric resul ts) [facility] Mean Corpuscular Volume 81.2-95.1 Above high normal [facility] Mean Corpuscular Hgb 25.6-32.2 Above high normal [facility] Mean Corpuscular Hgb Conc 32.0-36.0 Normal (applies to no n-numeric results) [facility] Red Cell Distribution Width 11.9-15.5 Normal (appli es to non-numeric results) [facility] Platelet Count 159 x10 3/uL 150-450 Normal (applies to non-numeric results) [facility] Mean Platelet Volume 9.4-12.4 Below low normal [facility] Neutrophils% (Auto) 31.0-71.0 Normal (applies to non-nume fortino results) [facility] Lymphocytes% (Auto) 20.0-55.0 Normal (applies to non-nume fortino results) [facility] Monocytes% (Auto) 4.0-12.0 Normal (applies to non-numeri c results) [facility] Eosinophils% (Auto) 1.0-8.0 Normal (applies to non-nume fortino results) [facility] Basophils% (Auto) 0.0-2.0 Normal (applies to non-numeri c results) [facility] Immature Granulocytes% (Auto) 0.0-2.0 Normal (carmen lies to non-numeric results) [facility] Neutrophils# (Auto) 1.50-6.20 Normal (applies to non-nume fortino results) [facility] Lymphocytes# (Auto) 1.20-4.00 Normal (applies to non-nume fortino results) [facility] Monocytes# (Auto) 0.00-0.90 Normal (applies to non-numeri c results) [facility] Eosinophils# (Auto) 0.00-0.50 Normal (applies to non-nume fortino results) [facility] Basophils# (Auto) 0.00-0.20 Normal (applies to non-numeri c results) [facility] Immature Granulocytes# (Auto) 0.00-7.00 No rmal (applies to non-numeric results) [facility] ID Date Data Source [id number] 12/07/2020 08:39:00 PM EDT [facility] Name Value Range Interpretation Code Description Data Apurva rce(s) Supporting Document(s) Hepatitis A Ab,IgG result Normal (applies to no n-numeric results) [facility] Result indicates immunity to hepatitis A infection from either vaccination or past exposure to hepatitis A. False-positive results may be observed in patients with CMV antibodies or heterophilic antibodies. REFERENCE VALUE Unvaccinated: Negative Vaccinated: Positive Test Performed by: [place] [address] [employer]: Darinel Murray M.D. Ph.D.; CLIA# [id number] ID Date Data Source [id number] 12/06/2020 12:54:00 PM EDT [facility] Value Range Interpretation Code Description Data Apurva rce(s) Supporting Document(s) HIV Screen result Nonreactive Normal (applies to non-numer ic results) [facility] Test [facility]formed By: [facility] [address] [place] [address] Director: David Gold MD ID Date Data Source [id number] 12/06/2020 12:54:00 PM EDT [facility] Value Range Interpretation Code Description Data Apurva rce(s) Supporting Document(s) CPK result 62 U/L 26-192 Normal (applies to non-numeric resul ts) [facility] Test Performed By: [facility] [address] [place] [address] Director: David Gold MD ID Date Data Source [id number] 12/06/2020 12:54:00 PM T [facility] Value Range Interpretation Code Description Data Apurva rce(s) Supporting Document(s) Hepatitis C Virus Ab result Nonreactive Norm al (applies to non-numeric results) [facility] Test Performed By: [facility] [address] [place] [address] Director: David Gold MD ID Date Data Source [id number] 12/06/2020 12:54:00 PM EDT [facility] Name Value Range Interpretation Code Description Data Apurva rce(s) Supporting Document(s) Hep Bs Ag result T-Test Nonreactive Normal (applies to non -numeric results) [facility] Test Performed By: [facility] [address] [place] [address] Director: David Gold MD ID Date Data Source [id number] 12/06/2020 12:54:00 PM EDT [facility] Name Value Range Interpretation Code Description Data Apurva rce(s) Supporting Document(s) Syphilis Serology result Nonreactive Normal (applies to non-numeric results) [facility] Test Performed By: [facility] [address] [place] [address] Director: David Gold MD ID Date Data Source [id number] 12/05/2020 10:07:00 PM EDT [facility] Name Value Range Interpretation Code Description Data Apurva rce(s) Supporting Document(s) Sodium 138 mmol/L 136-145 Normal (applies to non-numeric resul ts) [facility] Potassium 3.5-5.1 Normal (applies to non-numeric resul ts) [facility] Chloride 99 mmol/L 98-107 Normal (applies to non-numeric resul ts) [facility] Carbon Dioxide CO2 21-32 Normal (applies to non-numer ic results) [facility] Anion Gap 5.0-16.0 Normal (applies to non-numeric resul ts) [facility] BUN 9 mg/dL 7-18 Normal (applies to non-numeric results) [facility] Creatinine,Serum 0.7-1.2 Normal (applies to non-numeric results) [facility] GFR >60 Normal (applies to non-numeric results) [facility] Glucose Level 114 mg/dL 60-99 Above high normal [facility] Reference range is only applicable when patient is fasting Note the following drug interference: Sulfasalazine Sulfapyridine Can see falsely depressed Can see falsely elevated result with up to 17% results with up to 11% decrease in measurement increase in measurement Recommend patients be collected for this test prior to administration of either drug. Calcium 8.5-10.1 Below low normal [facility] Bilirubin,Total 0.1-1.9 Normal (applies to non-numeric results) [facility] SGOT(AST) 90 U/L 15-37 Above high normal [facility] Note the following drug interference: Sulfasalazine Sulfapyridine Can see falsely depressed Can see falsely elevated result with up to 10% results with up to 10% decrease in measurement increase in measurement Recommend patients be collected for this test prior to administration of either drug. SGPT(ALT) 81 U/L 12-78 Above high normal [facility] Note the following drug interference: Sulfasalazine Sulfapyridine Can see falsely depressed Can see falsely elevated result with up to 29% results with up to 10% decrease in measurement increase in measurement Recommend patients be collected for this test prior to administration of either drug. Alkaline Phosphatase 127 U/L 38-126 Above high normal [facility] can increase Alkaline Phosp le vels up to 2 times the normal adult value. Normal values for children and adolescents are 2 to 3 times the normal adult value. Total Protein 6.0-8.2 Normal (applies to non-numeric re sults) [facility] Albumin Level 3.4-5.0 Normal (applies to non-numeric re sults) [facility] ID Date Data Source [id number] 12/05/2020 10:07:00 PM EDT [facility] Name Value Range Interpretation Code Description Data Apurva rce(s) Supporting Document(s) Bilirubin,Direct 0.05-0.20 Normal (applies to non-numeric results) [facility] ID Date Data Source [id number] 12/05/2020 10:07:00 PM EDT [facility] Name Value Range Interpretation Code Description Data Apurva rce(s) Supporting Document(s) Phosphorus 2.5-4.9 Normal (applies to non-numeric resul ts) [facility] ID Date Data Source [id number] 12/05/2020 10:07:00 PM EDT [facility] Name Value Range Interpretation Code Description Data Apurva rce(s) Supporting Document(s) Magnesium 1.8-2.4 Normal (applies to non-numeric resul ts) [facility] ID Date Data Source [id number] 12/05/2020 10:07:00 PM EDT [facility] Name Value Range Interpretation Code Description Data Apurva rce(s) Supporting Document(s) Thyroid Stimulate Hormone TSH 0.358-3.74 Above high normal [facility] ID Date Data Source [id number] 12/05/2020 09:40:00 PM EDT [facility] Name Value Range Interpretation Code Description Data Apurva rce(s) Supporting Document(s) White Blood Count 3.5-10.5 Normal (applies to non-numeri c results) [facility] Red Blood Count 3.90-5.00 Normal (applies to non-numeric results) [facility] Hemoglobin 12.0-15.5 Normal (applies to non-numeric resul ts) [facility] Hematocrit 34.9-44.5 Normal (applies to non-numeric resul ts) [facility] Mean Corpuscular Volume 81.2-95.1 Above high normal [facility] Mean Corpuscular Hgb 25.6-32.2 Above high normal [facility] Mean Corpuscular Hgb Conc 32.0-36.0 Normal (applies to no n-numeric results) [facility] Red Cell Distribution Width 11.9-15.5 Normal (appli es to non-numeric results) [facility] Platelet Count 198 x10 3/uL 150-450 Normal (applies to non-numeric results) [facility] Mean Platelet Volume 9.4-12.4 Below low normal [facility] Neutrophils% (Auto) 31.0-71.0 Normal (applies to non-nume fortino results) [facility] Lymphocytes% (Auto) 20.0-55.0 Normal (applies to non-nume fortino results) [facility] Monocytes% (Auto) 4.0-12.0 Normal (applies to non-numeri c results) [facility] Eosinophils% (Auto) 1.0-8.0 Normal (applies to non-nume fortino results) [facility] Basophils% (Auto) 0.0-2.0 Normal (applies to non-numeri c results) [facility] Immature Granulocytes% (Auto) 0.0-2.0 Normal (carmen lies to non-numeric results) [facility] Neutrophils# (Auto) 1.50-6.20 Normal (applies to non-nume fortino results) [facility] Lymphocytes# (Auto) 1.20-4.00 Below low normal [facility] Monocytes# (Auto) 0.00-0.90 Normal (applies to non-numeri c results) [facility] Eosinophils# (Auto) 0.00-0.50 Normal (applies to non-nume fortino results) [facility] Basophils# (Auto) 0.00-0.20 Normal (applies to non-numeri c results) [facility] Immature Granulocytes# (Auto) 0.00-7.00 No rmal (applies to non-numeric results) [facility] ID Date Data Source [id number] 12/08/2020 03:15:00 PM EDT [facility] Name Value Range Interpretation Code Description Data Apurva rce(s) Supporting Document(s) Chlamydia,Urine Negative Normal (applies to non-numeric results) [facility] Test Performed By: [facility] [address] [place] [address] Director: David Gold MD . GC Urine Negative Normal (applies to non-numeric resul ts) [facility] Test Performed By: [facility] [address] [place] [address] Director: David Gold MD . Methodology: Second generation nucleic acid amplification. ID Date Data Source [id number] 12/07/2020 08:27:00 PM EDT [facility] Name Value Range Interpretation Code Description Data Apurva rce(s) Supporting Document(s) Hepatitis A Ab,IgG result Normal (applies to no n-numeric results) [facility] Result indicates immunity to hepatitis A infection from either vaccination or past exposure to hepatitis A. False-positive results may be observed in patients with CMV antibodies or heterophilic antibodies. REFERENCE VALUE Unvaccinated: Negative Vaccinated: Positive Test Performed by: [facility] [address] [place] [address] [employer]: Darinel Murray M.D. Ph.D.; CLIA# [id number] ID Date Data Source [id number] 12/06/2020 12:49:00 PM EDT [facility] Value Range Interpretation Code Description Data Apurva rce(s) Supporting Document(s) HIV 1/2 Ab p24 Ag Screen Nonreactive Normal (applies to non-numeric results) [facility] Test Performed By: [facility] [address] [place] [address] Director: David Gold MD ID Date Data Source [id number] 12/06/2020 12:49:00 PM EDT [facility] Value Range Interpretation Code Description Data Apurva rce(s) Supporting Document(s) Hep C Ab-T Test Nonreactive Normal (applies to non-numeric results) [facility] Test Performed By: [facility] [address] [place] [address] Director: David Gold MD ID Date Data Source [id number] 12/06/2020 12:49:00 PM EDT [facility] Value Range Interpretation Code Description Data Apurva rce(s) Supporting Document(s) Hep Bs Ag Result T-Test Nonreactive Normal (applies to non -numeric results) [facility] Test Performed By: [facility] [address] [place] [address] Director: David Gold MD ID Date Data Source [id number] 12/06/2020 12:49:00 PM EDT [facility] Value Range Interpretation Code Description Data Apurva rce(s) Supporting Document(s) Syphilis Serology Nonreactive Normal (applies to non-numer ic results) [facility] Test Performed By: [place] [address] Director: David Gold MD ID Date Data Source [id number] 12/06/2020 11:59:00 AM EDT [facility] Value Range Interpretation Code Description Data Apurva rce(s) Supporting Document(s) CPK 62 U/L 26-192 Normal (applies to non-numeric resul ts) [facility] Test Performed By: [place] [address] Director: David Gold MD ID Date Data Source [id number] 12/05/2020 10:06:00 PM EDT [facility] Value Range Interpretation Code Description Data Apurva rce(s) Supporting Document(s) Ethanol Less than 10.0 Normal (applies to non-numeric r esults) [facility] ID Date Data Source [id number] 12/08/2020 04:03:00 PM EDT [facility] Value Range Interpretation Code Description Data Apruva rce(s) Supporting Document(s) Chlamydia,Urine result Negative Normal (applies to non-n umeric results) [facility] Test Performed By: [place] [address] Director: David Gold MD . GC Urine result Negative Normal (applies to non-numeric results) [facility] Test Performed By: [place] [address] Director: David Gold MD . Methodology: Second generation nucleic acid amplification. ID Date Data Source [id number] 12/05/2020 09:41:00 PM EDT [facility] Value Range Interpretation Code Description Data Apurva rce(s) Supporting Document(s) UDS Benzodiazepines Screen Negative Normal (applies to n on-numeric results) [facility] UDS Cocaine Screen Negative Normal (applies to non-numer ic results) [facility] UDS Ampetamine Screen Negative Normal (applies to non-nu meric results) [facility] UDS Cannabinoids Screen Negative Normal (applies to non- numeric results) [facility] UDS Opiates Screen Negative Normal (applies to non-numer ic results) [facility] UDS Barbiturates Screen Negative Normal (applies to non- numeric results) [facility] Threshold Levels Benzodiazepine 200 ng/mL Cocaine 300 ng/mL Amphetamines 1000 ng/mL Cannabinoids (THC) 50 ng/mL Opiates 300 ng/mL Barbiturates 200 ng/mL All positive findings are presumptive and unconfirmed. Confirmation of positive results are performed only at request of provider. Unconfirmed results must not be used for non-medical purposes (i.e. preemployment and legal purposes) ID Date Data Source [id number] 12/05/2020 09:47:00 PM EDT [facility] Collected By: Nurse's Aide Time Collect ed: 2009 Collected By: Nurse's Aide Time Collect ed: 2009 Name Value Range Interpretation Code Description Data Apurva rce(s) Supporting Document(s) Color,Urine Colorl-Dk Y Normal (applies to non-numeric res ults) [facility] Clarity,Urine Clear Normal (applies to non-numeric re sults) [facility] Specific [place],Urine 1.005-1.030 Normal (applies to non- numeric results) [facility] pH,Urine 5.0-8.0 Normal (applies to non-numeric resul ts) [facility] Protein,Urine Negative Normal (applies to non-numeric re sults) [facility] Glucose,Urine Negative Normal (applies to non-numeric re sults) [facility] Ketones,Urine Negative Normal (applies to non-numeric re sults) [facility] Blood,Urine Negative [facility] Bil[facility],Urine Negative Normal (applies to non-numeric results) [facility] Urobilinogen,Urine 0.2-1.0 Normal (applies to non-numer ic results) [facility] Leukocyte Esterase,Urine Negative Normal (applies to non -numeric results) [facility] Nitrite,Urine Negative Normal (applies to non-numeric re sults) [facility] ID Date Data Source [id number] 12/05/2020 09:47:00 PM EDT [facility] Collected By: Nurse's Aide Time Collect ed: 2009 Collected By: Nurse's Aide Time Collect ed: 2009 Name Value Range Interpretation Code Description Data Apurva rce(s) Supporting Document(s) RBC,Urine None Seen [facility] WBC,Urine None Seen [facility] Casts,Urine None Seen Normal (applies to non-numeric resu lts) [facility] Epithelial Cells,Urine None - Few Normal (applies to non-n umeric results) [facility] Bacteria,Urine None Seen [facility] ital Mucus,Urine None Seen [facility] ID Date Data Source [id number] 12/05/2020 03:44:00 PM EDT [facility] Name Value Range Interpretation Code Description Data Apurva rce(s) Supporting Document(s) SARS-CoV-2 (COVID 19) NEGATIVE - SARS-CoV-2 (COVID19) [facility] This lab was ordered by [facility] a nd reported by [facility]. ID Date Data Source Low Dose Lung Screening CT Chest 06/22/2020 10:10:30 AM EDT eCW1 ([facility]) Name Value Range Interpretation Code Description Data Apurva rce(s) Supporting Document(s) Low Dose Lung Screening CT Debbie [address] eCW1 ([facility]) ID Date Data Source [id number] 05/11/2020 08:12:00 PM EDT [facility] DATE OF EXAM: 05/11/2020ULTRASOUND VASCU LAR: BILATERAL UPPER EXTREMITY VENOUS. CLINICAL HISTORY: History of right arm DVT . TECHNIQUE: Multiple real-time linear array color-flow Doppler images of the deep venous system of the bilateral upper extremities were obtained. Duplex imaging with color flow Doppler and spectral analysis was used to study the deep venous system. COMPARISON: 05/01/2020. FINDINGS: On the right, the superficial thrombus is again seen within the right cephalic and medial cubital veins. Previously seen deep venous thrombosis within the right subclavian vein has resolved. On the left, occlusive thrombus is noted within the left brachial vein with associated PICC. A nonocclusive thrombus is also noted within the left basilic vein. IMPRESSION: Since 05/01/2020, Interval resolution of right upper extremity DVT within the subclavian vein. Persistent thrombus within the right cephalic and median cubital veins. New thrombus involving the left brachial and basilic veins. Professional interpretation performed at [facility] .End of diagnostic report for accession: [id number] Interpreted: Jeyson Potts MDTranscribed: 05/11/2020 08:09 PMSigned: 05/11/2020 08:12 PM Jeyson Potts MD [facility] # [id number] BILL # [id number] Name Value Range Interpretation Code Description Data Apurva rce(s) Supporting Document(s) ID Date Data Source [id number] 05/11/2020 07:52:23 AM EDT [facility] Name Value Range Interpretation Code Description Data Apurva e(s) Supporting Document(s) HGB 9.6 g/dL (12.0-16.0) L Lab [facility] HCT 29.7 % (36.0-47.0) L Lab [facility] Y ID Date Data Source [id number] 05/11/2020 12:50:54 AM EDT [facility] PATIENT ABO/Rh A POSITIVEANT IBODY SCREEN NEGATIVESPEC EXP DATE 05/13/2020TESTING SITE PERFORMED AT [address] [place], [place] [address]BLOOD BANK COMMENT BLOOD TYPE CONFIRMED.UNIT NUMBER [id number] COMPONENT TYPE LEUKOPOOR RED CELLSUNIT DIVISION 00STATUS OF UNIT TRANSFUSEDTRANSFUSION STATUS OK TO TRANSFUSECROSSMATCH RESULT COMPATIBLE Name Value Range Interpretation Code Description Data Apurva rce(s) Supporting Document(s) ID Date Data Source [id number] 05/10/2020 06:16:35 PM EDT [facility] Name Value Range Interpretation Code Description Data Apurva rce(s) Supporting Document(s) HGB 7.8 g/dL (12.0-16.0) L [facility] HCT 23.8 % (36.0-47.0) L [facility] ID Date Data Source [id number] 05/10/2020 01:24:51 PM EDT [facility] Name Value Range Interpretation Code Description Data Apurva rce(s) Supporting Document(s) HGB 8.8 g/dL (12.0-16.0) L [facility] HCT 27.3 % (36.0-47.0) L [facility] ID Date Data Source [id number] 05/10/2020 07:07:26 AM EDT [facility] Name Value Range Interpretation Code Description Data Apurva rce(s) Supporting Document(s) MAGNESIUM 1.8 mg/dL (1.7-2.4) [facility] ID Date Data Source [id number] 05/10/2020 07:07:26 AM EDT [facility] Name Value Range Interpretation Code Description Data Apurva rce(s) Supporting Document(s) PHOSPHORUS 3.1 mg/dL (2.5-4.5) [facility] ID Date Data Source [id number] 05/10/2020 07:07:26 AM EDT [facility] Name Value Range Interpretation Code Description Data Apurva rce(s) Supporting Document(s) SODIUM 139 mmol/L (136-145) [facility] POTASSIUM 3.4 mmol/L (3.6-5.2) L [facility] CHLORIDE 106 mmol/L (100-108) [facility] CO2 22 mmol/L (22-31) [facility] ANION GAP 11 mmol/L (7-16) [facility] UREA NITROGEN 3 mg/dL (7-24) L [facility] CREATININE 0.68 mg/dL (0.60-1.00) [facility] BUN/CREAT RATIO 4.4 RATIO (10.0-20.0) L [facility] GLUCOSE 104 mg/dL (70-99) H [facility] CALCIUM 7.8 mg/dL (8.4-10.2) L [facility] GFR >60 ml/min/1.73m2 (>59) [facility] GFR ( AMER) >60 ml/min/1.73m2 (>59) [facility] GFR INTERPRETATION [facility] --NORMAL KIDNEY FUNCTION OR MILD DISEASE - GFR >OR= 60CHRONIC KIDNEY DISEASE - GFR 15 - 59RENAL FAILURE - GFR <15 Est. GFR calculation based on the MDRDstudy equation, which assumes a steadystate for creatinine. Est. GFR should notbe used for medication dosing. ID Date Data Source [id number] 05/10/2020 06:59:27 AM EDT [facility] Name Value Range Interpretation Code Description Data Apurva rce(s) Supporting Document(s) APTT 68.6 s (22.0-34.3) H [facility] ID Date Data Source [id number] 05/10/2020 06:40:19 AM EDT [facility] Name Value Range Interpretation Code Description Data Apurva rce(s) Supporting Document(s) HGB 8.3 g/dL (12.0-16.0) L [facility] HCT 26.0 % (36.0-47.0) L [facility] ID Date Data Source [id number] 2020 10:43:08 PM EDT [facility] Name Value Range Interpretation Code Description Data Apurva rce(s) Supporting Document(s) APTT 42.7 s (22.0-34.3) H [facility] ID Date Data Source [id number] 2020 11:02:31 PM EDT [facility] Name Value Range Interpretation Code Description Data Apurva rce(s) Supporting Document(s) SPECIMEN DESCRIPTION [facility] C DIFF TOXIN B (NEG) [facility] 027 NAP1 B1 (NEG) [facility] COMMENT [facility] IS CLINICALLY INDICATED, PLEASE CONTA CT THE MICROBIOLOGY LABORATORY ([phone]) WITHIN 3 DAYS OF THIS REPORT. ID Date Data Source [id number] 2020 04:48:27 PM EDT [facility] Name Value Range Interpretation Code Description Data Apurva rce(s) Supporting Document(s) HGB 9.1 g/dL (12.0-16.0) L [facility] HCT 29.4 % (36.0-47.0) L [facility] ID Date Data Source [id number] 05/10/2020 10:06:27 AM EDT [facility] [place], [place] [address]Tel# SURGICAL PATHOLOGY REPORTPatient Name:CHERIE JAMESB:2Received:2020Accession #:[id number](s) Received: A: Biopsy, submucosal mass, second portion of duodenumB: Biopsy, gastric antrum, r/o H pyloriClinical Diagnosis and History: Hematemesis. Part A submucosal mass. Part B rule out H. pylori. DIAGNOSIS:A) DUODENUM, SECOND PORTION, BIOPSY SMALL BOWEL MUCOSA WITH NO SIGNIFICANT PATHOLOGIC CHANGES. NO SUBMUCOSAL TISSUE IDENTIFIED. B) STOM ACH, ANTRUM, BIOPSY REACTIVE GASTROPATHY. NO GASTRITIS OR HELICOBACTER LIKE ORGANISMS IDENTIFIED. SEPARATE FRAGMENT OF SMALL BOWEL MUCOSA WITH NO SIGNIFICANT PATHOLOGIC CHANGES. GROSS DESCRIPTION: Specimen A received in formalin labeled "submucosal mass biopsy secondportion of duodenum" are four soft pink-stoner to red-stoner irregular tissuesvarying from minute to 0.3 x 0.2 cm. The specimen is submitted in totofor microscopic examination. (1 block) Specimen B received in formalin labeled "gastric antrum biopsy" are twosoft stoner irregular tissues varying from 0.2 x 0.1 cm to 0.3 x 0.2 cm. Thespecimen is submitted in toto for microscopic examination. (1 block) humberto/daiReported: 05/10/2020Electronically Signed Out By Shahzad Troy M.D. [facility] [address] [address]Bcbgdrwrt component performed at [facility], Histopathology, [address] [place] [address], [phone].Reported at [facility], [address] [place] [address], [phone].This report may include immunohistochemical or in-situ hybridizationresults. Testing was developed and the performance characteristicsdetermined by [facility], as required byCLIA '88. The FDA has determined that approval for specific use is notnecessary for clinical use. The quality of Hematoxylin and Eosin stainsand as applicable, for all immunohistochemical and/or special stains,including positive and negative controls, were reviewed and consider edappropriate.ICD codes: R89.7CPT4 codes: A: 41582QY: 62797D Name Value Range Interpretation Code Description Data Apurva rce(s) Supporting Document(s) ID Date Data Source [id number] 2020 01:47:24 PM EDT [facility] Name Value Range Interpretation Code Description Data Apurva rce(s) Supporting Document(s) POC GLUCOSE 83 mg/dL (70-99) [facility] NOTIFIED NURSEPERFORMED BY CLINICAL S TAFF ID Date Data Source [id number] 2020 06:43:20 AM EDT [facility] Name Value Range Interpretation Code Description Data Apurva rce(s) Supporting Document(s) APTT 55.0 s (22.0-34.3) H [facility] ID Date Data Source [id number] 2020 06:40:39 AM EDT [facility] Name Value Range Interpretation Code Description Data Apurva rce(s) Supporting Document(s) WBC 8.8 10*3/uL (4.1-11.0) [facility] [place] RBC 2.47 10*6/uL (4.00-5.40) L [facility] HGB 7.5 g/dL (12.0-16.0) L [facility] HCT 23.5 % (36.0-47.0) L [facility] MCV 95.0 fL (80.0-95.0) [facility] MCH 30.5 pg (27.0-32.0) [facility] MCHC 32.1 g/dL (32.0-36.0) [facility] RDW 17.3 % (10.5-14.5) H [facility] PLT 484 10*3/uL (150-450) H [facility] MPV 9.4 fL (7.1-10.7) [facility] NEUT % 68.1 % (35.0-75.0) [facility] LYMPH % 17.1 % (16.0-52.0) [facility] MONO % 10.1 % (0.0-8.0) H [facility] EOS % 2.4 % (0.0-5.0) [facility] BASO % 2.3 % (0.0-4.0) [facility] NEUT # 6.0 10*3/uL (1.8-7.7) [facility] LYMPH # 1.5 10*3/uL (1.2-4.8) [facility] MONO # 0.9 10*3/uL (0.0-0.8) H [facility] Eosinophils [#/volume] in Blood by Automated count 0.2 10*3/uL (0.0-0 .5) [facility] BASO # 0.2 10*3/uL (0.0-0.2) [facility] ID Date Data Source [id number] 05/08/2020 09:34:49 PM EDT [facility] Name Value Range Interpretation Code Description Data Apurva rce(s) Supporting Document(s) APTT 61.7 s (22.0-34.3) H [facility] ID Date Data Source [id number] 05/08/2020 02:20:50 PM EDT [facility] Name Value Range Interpretation Code Description Data Apurva rce(s) Supporting Document(s) APTT 74.6 s (22.0-34.3) H [facility] ID Date Data Source [id number] 05/08/2020 10:35:00 AM EDT [facility] Name Value Range Interpretation Code Description Data Apurva rce(s) Supporting Document(s) SARS coronavirus 2 RNA [Presence] in Res piratory specimen by MINDY with probe detection Lab [facility] ram[facility] This lab was reported by [facility]. ID Date Data Source [id number] 05/08/2020 03:28:37 PM EDT [facility] Name Value Range Interpretation Code Description Data Apurva rce(s) Supporting Document(s) SPECIMEN DESCRIPTION [facility] COVID19 RESULT (NDET) [facility] THIS ASSAY AMPLIFIES AND DETECTSTHE TARG ET RNA USING REAL-TIME PCR.NEGATIVE 2019_NCOV RT-PCR RESULTS DONOT PRECLUDE 2019_NCOV INFECTION ANDSHOULD NOT BE USED THE SOLE BASISFOR PATIENT MANAGEMENT DECISIONS. COMMENT [facility] APPROVED B Y THE [place]OH. THE [place]. FOODAND DRUG ADMINISTRATION HAS NOT APPROVEDTHIS TEST. NEGATIVE RESULTS DO NOT [id number] INFECTION AND SHOULD NOT BEUSED THE SOLE BASIS FOR CLINICALDIAGNOSIS OR PATIENT MANAGEMENT DECISIONS.EMAILED TO [facility] AT [address]50 ON [id number] QZ [id number]. FIRST TEST [facility] [employer] [facility] [employer] SYMPTOMATIC [facility] [place] DATE OF SYMPT ONSET [facility] HOSPITALIZED [facility] CONGREGATE CARE SET [facility] ID Date Data Source [id number] 05/08/2020 07:10:35 AM EDT [facility] Name Value Range Interpretation Code Description Data Apurva rce(s) Supporting Document(s) SODIUM 138 mmol/L (136-145) [facility] POTASSIUM 3.6 mmol/L (3.6-5.2) [facility] CHLORIDE 105 mmol/L (100-108) [facility] CO2 21 mmol/L (22-31) L [facility] ANION GAP 12 mmol/L (7-16) [facility] UREA NITROGEN 6 mg/dL (7-24) L [facility] CREATININE 1.04 mg/dL (0.60-1.00) H [facility] BUN/CREAT RATIO 5.8 RATIO (10.0-20.0) L [facility] GLUCOSE 105 mg/dL (70-99) H [facility] CALCIUM 8.2 mg/dL (8.4-10.2) L [facility] GFR 53 ml/min/1.73m2 (>59) L [facility] GFR ( AMER) >60 ml/min/1.73m2 (>59) [facility] GFR INTERPRETATION [facility] --NORMAL KIDNEY FUNCTION OR MILD DISEASE - GFR >OR= 60CHRONIC KIDNEY DISEASE - GFR 15 - 59RENAL FAILURE - GFR <15 Est. GFR calculation based on the MDRDstudy equation, which assumes a steadystate for creatinine. Est. GFR should notbe used for medication dosing. ID Date Data Source [id number] 05/08/2020 07:10:35 AM EDT [facility] Name Value Range Interpretation Code Description Data Apurva rce(s) Supporting Document(s) MAGNESIUM 1.9 mg/dL (1.7-2.4) [facility] ID Date Data Source [id number] 05/08/2020 06:48:47 AM EDT [facility] Name Value Range Interpretation Code Description Data Apurva rce(s) Supporting Document(s) APTT 87.7 s (22.0-34.3) H [facility] ID Date Data Source [id number] 05/08/2020 06:46:31 AM EDT [facility] Name Value Range Interpretation Code Description Data Apurva rce(s) Supporting Document(s) WBC 11.2 10*3/uL (4.1-11.0) H [facility] RBC 3.00 10*6/uL (4.00-5.40) L [facility] HGB 9.2 g/dL (12.0-16.0) L [facility] HCT 28.9 % (36.0-47.0) L [facility] MCV 96.3 fL (80.0-95.0) H [facility] MCH 30.7 pg (27.0-32.0) [facility] MCHC 31.8 g/dL (32.0-36.0) L [facility] RDW 17.4 % (10.5-14.5) H [facility] PLT 609 10*3/uL (150-450) H [facility] MPV 9.5 fL (7.1-10.7) [facility] NEUT % 68.7 % (35.0-75.0) [facility] LYMPH % 19.0 % (16.0-52.0) [facility] MONO % 8.6 % (0.0-8.0) H [facility] EOS % 2.4 % (0.0-5.0) [facility] BASO % 1.3 % (0.0-4.0) [facility] NEUT # 7.7 10*3/uL (1.8-7.7) [facility] LYMPH # 2.1 10*3/uL (1.2-4.8) [facility] MONO # 1.0 10*3/uL (0.0-0.8) H [facility] Eosinophils [#/volume] in Blood by Automated count 0.3 10*3/uL (0.0-0 .5) [facility] BASO # 0.1 10*3/uL (0.0-0.2) [facility] ID Date Data Source [id number] 05/07/2020 10:37:54 PM EDT [facility] Name Value Range Interpretation Code Description Data Apurva rce(s) Supporting Document(s) APTT 80.0 s (22.0-34.3) H [facility] ID Date Data Source [id number] 05/07/2020 04:34:59 PM EDT [facility] Name Value Range Interpretation Code Description Data Apurva rce(s) Supporting Document(s) APTT 61.4 s (22.0-34.3) H [facility] ID Date Data Source [id number] 05/07/2020 04:17:37 PM EDT [facility] Name Value Range Interpretation Code Description Data Apurva rce(s) Supporting Document(s) HGB 8.7 g/dL (12.0-16.0) L [facility] HCT 26.5 % (36.0-47.0) L [facility] ID Date Data Source [id number] 05/07/2020 08:01:54 AM EDT [facility] Name Value Range Interpretation Code Description Data Apurva rce(s) Supporting Document(s) PHOSPHORUS 2.4 mg/dL (2.5-4.5) L [facility] ID Date Data Source [id number] 05/07/2020 08:01:54 AM EDT [facility] Name Value Range Interpretation Code Description Data Apurva rce(s) Supporting Document(s) MAGNESIUM 1.6 mg/dL (1.7-2.4) L [facility] ID Date Data Source [id number] 05/07/2020 08:01:54 AM EDT [facility] Name Value Range Interpretation Code Description Data Apurva rce(s) Supporting Document(s) TOTAL PROTEIN 5.4 g/dL (6.4-8.2) L [facility] ALBUMIN 2.3 g/dL (3.2-4.5) L [facility] GLOBULIN 3.1 g/dL (2.7-4.3) [facility] ALB/GLOB RATIO 0.7 RATIO [facility] BILIRUBIN,TOTAL 0.5 mg/dL (0.0-1.0) [facility] PLEASE NOTE:Total bilirubin results may be falselyelevated in patients taking Eltrombopag. BILIRUBIN,CONJUGATED 0.3 mg/dL (0.0-0.3) [facility] BILIRUBIN,UNCONJ. 0.2 mg/dL (0.0-0.7) [facility] ALKALINE PHOSPHATASE 105 U/L (45-117) [facility] AST (SGOT) 41 U/L (11-39) H [facility] ALT (SGPT) 33 U/L (12-78) [facility] ID Date Data Source [id number] 05/07/2020 08:01:54 AM EDT [facility] Name Value Range Interpretation Code Description Data Apurva rce(s) Supporting Document(s) SODIUM 138 mmol/L (136-145) [facility] POTASSIUM 3.8 mmol/L (3.6-5.2) [facility] CHLORIDE 104 mmol/L (100-108) [facility] CO2 24 mmol/L (22-31) [facility] ANION GAP 10 mmol/L (7-16) [facility] UREA NITROGEN 5 mg/dL (7-24) L [facility] CREATININE 0.80 mg/dL (0.60-1.00) [facility] BUN/CREAT RATIO 6.3 RATIO (10.0-20.0) L [facility] GLUCOSE 98 mg/dL (70-99) [facility] CALCIUM 8.3 mg/dL (8.4-10.2) L [facility] GFR >60 ml/min/1.73m2 (>59) [facility] GFR ( AMER) >60 ml/min/1.73m2 (>59) [facility] GFR INTERPRETATION Lab [facility] of [facility] --NORMAL KIDNEY FUNCTION OR MILD DISEASE - GFR >OR= 60CHRONIC KIDNEY DISEASE - GFR 15 - 59RENAL FAILURE - GFR <15 Est. GFR calculation based on the MDRDstudy equation, which assumes a steadystate for creatinine. Est. GFR should notbe used for medication dosing. ID Date Data Source [id number] 05/07/2020 07:29:24 AM EDT [facility] Name Value Range Interpretation Code Description Data Apurva rce(s) Supporting Document(s) APTT 38.9 s (22.0-34.3) H [facility] ID Date Data Source [id number] 05/07/2020 07:18:03 AM EDT [facility] Name Value Range Interpretation Code Description Data Apurva rce(s) Supporting Document(s) WBC 9.1 10*3/uL (4.1-11.0) [facility] [place] RBC 2.71 10*6/uL (4.00-5.40) L [facility] HGB 8.6 g/dL (12.0-16.0) L [facility] HCT 25.9 % (36.0-47.0) L [facility] MCV 95.5 fL (80.0-95.0) H [facility] MCH 31.7 pg (27.0-32.0) [facility] MCHC 33.2 g/dL (32.0-36.0) [facility] RDW 16.8 % (10.5-14.5) H [facility] PLT 448 10*3/uL (150-450) [facility] MPV 9.8 fL (7.1-10.7) [facility] NEUT % 68.9 % (35.0-75.0) [facility] LYMPH % 18.3 % (16.0-52.0) [facility] MONO % 9.2 % (0.0-8.0) H [facility] EOS % 2.5 % (0.0-5.0) [facility] BASO % 1.1 % (0.0-4.0) [facility] NEUT # 6.2 10*3/uL (1.8-7.7) [facility] LYMPH # 1.7 10*3/uL (1.2-4.8) [facility] MONO # 0.8 10*3/uL (0.0-0.8) [facility] Eosinophils [#/volume] in Blood by Automated count 0.2 10*3/uL (0.0-0 .5) [facility] BASO # 0.1 10*3/uL (0.0-0.2) [facility] ID Date Data Source [id number] 05/06/2020 05:45:01 PM EDT [facility] Name Value Range Interpretation Code Description Data Apurva rce(s) Supporting Document(s) HGB 9.2 g/dL (12.0-16.0) L [facility] HCT 28.2 % (36.0-47.0) L [facility] ID Date Data Source [id number] 05/08/2020 04:04:00 PM EDT [address] [id number] NAME: MELVA JAMESDADATE OF : 1950EPORT: DISCHARGE SUMMARYPATIENT NUMBER: [id number] STATUS: IPMEDICAL RECORD NUMBER: [id number] OF ADMISSION: 04/25/2020DATE OF DISCHARGE: 05/06/2020ROOM: 00DISCHARGE/TRANSFER DIAGNOSES: The patient's diagnoses at the time oftransfer was acute delirium encephalopathy improved initially with alcoholwithdrawal, GI bleed, pancreatitis, subclavian vein thrombosis.HOSPITAL COURSE: Again, the patient presented to us on 04/25/2020, heavydrinker, also lipase was elevated, also had a little bit of anion gapmetabolic acidosis likely related to alcoholic ketoacidosis, starvationketoacidosis, some transaminitis. The patient was placed on thephenobarbital protocol. The patient had a slow course. The patient'shemoglobin did not drop significantly. She never had EGD as yet,subclavian vein thrombosis was found. The patient was started on heparindrip. Hemoglobin has been stable in the 9 range or so, and her delirium isslowly lifting. She has an NG tube still which we are giving tube feeds Atabout 15 mL an hour. She is conversing, talking about physical therapy;however, she is confused and tells us she does known where she is. [place]th[place]. Otherwise, she will be sent upstairs with asitter. She is to continue on the thiamine. GI will continue to followher.DICTATED BY: WADE Elizabethictated: 05/06/2020 12:51DT: 05/06/2020 13:34Job #: [id number]: [facility] computer g enerated reports are notconfirmed or authenticated unless they are signed by the providerElectronically Authenticated by:LOR PELAEZ MD On 05/08/2020 04:04 PM EDT Name Value Range Interpretation Code Description Data Apurva rce(s) Supporting Document(s) ID Date Data Source [id number] 05/06/2020 11:09:23 AM EDT [facility] Name Value Range Interpretation Code Description Data Apurva rce(s) Supporting Document(s) APTT 57.0 s (22.0-34.3) H [facility] ID Date Data Source [id number] 05/06/2020 04:42:35 AM EDT [facility] Name Value Range Interpretation Code Description Data Apurva rce(s) Supporting Document(s) WBC 8.3 10*3/uL (4.1-11.0) [facility] [place] RBC 2.93 10*6/uL (4.00-5.40) L [facility] HGB 9.0 g/dL (12.0-16.0) L [facility] HCT 27.7 % (36.0-47.0) L [facility] MCV 94.7 fL (80.0-95.0) [facility] MCH 30.8 pg (27.0-32.0) [facility] MCHC 32.5 g/dL (32.0-36.0) [facility] RDW 17.0 % (10.5-14.5) H [facility] PLT 490 10*3/uL (150-450) H [facility] MPV 8.7 fL (7.1-10.7) [facility] ID Date Data Source [id number] 05/06/2020 04:53:50 AM EDT [facility] Name Value Range Interpretation Code Description Data Apurva rce(s) Supporting Document(s) APTT 60.8 s (22.0-34.3) H [facility] ID Date Data Source [id number] 05/06/2020 03:29:44 AM EDT [facility] Name Value Range Interpretation Code Description Data Apurva rce(s) Supporting Document(s) PHOSPHORUS 3.0 mg/dL (2.5-4.5) [facility] ID Date Data Source [id number] 05/06/2020 03:29:44 AM EDT [facility] Name Value Range Interpretation Code Description Data Apurva rce(s) Supporting Document(s) SODIUM 142 mmol/L (136-145) [facility] POTASSIUM 3.6 mmol/L (3.6-5.2) [facility] CHLORIDE 107 mmol/L (100-108) [facility] CO2 27 mmol/L (22-31) [facility] ANION GAP 8 mmol/L (7-16) [facility] UREA NITROGEN 5 mg/dL (7-24) L [facility] CREATININE 0.74 mg/dL (0.60-1.00) [facility] BUN/CREAT RATIO 6.8 RATIO (10.0-20.0) [facility] GLUCOSE 102 mg/dL (70-99) [facility] CALCIUM 8.3 mg/dL (8.4-10.2) [facility] TOTAL PROTEIN 5.8 g/dL (6.4-8.2) [facility] ALBUMIN 2.5 g/dL (3.2-4.5) L [facility] GLOBULIN 3.3 g/dL (2.7-4.3) [facility] ALB/GLOB RATIO 0.8 RATIO [facility] ALKALINE PHOSPHATASE 120 U/L (45-117) [facility] BILIRUBIN,TOTAL 0.4 mg/dL (0.0-1.0) [facility] PLEASE NOTE:Total bilirubin results may be falselyelevated in patients taking Eltrombopag. AST (SGOT) 51 U/L (11-39) [facility] ALT (SGPT) 40 U/L (12-78) [facility] GFR >60 ml/min/1.73m2 (>59) [facility] GFR ( AMER) >60 ml/min/1.73m2 (>59) [facility] GFR INTERPRETATION [facility] --NORMAL KIDNEY FUNCTION OR MILD DISEASE - GFR >OR= 60CHRONIC KIDNEY DISEASE - GFR 15 - 59RENAL FAILURE - GFR <15 Est. GFR calculation based on the MDRDstudy equation, which assumes a steadystate for creatinine. Est. GFR should notbe used for medication dosing. ID Date Data Source [id number] 05/06/2020 03:29:44 AM EDT [facility] Name Value Range Interpretation Code Description Data Apurva rce(s) Supporting Document(s) MAGNESIUM 1.8 mg/dL (1.7-2.4) [facility] ID Date Data Source [id number] 05/06/2020 03:27:19 AM EDT [facility] Name Value Range Interpretation Code Description Data Apurva rce(s) Supporting Document(s) CALCIUM IONIZED 5.04 mg/dL (4.64-5.28) [facility] IONIZED CALCIUM NORMALIZED TO PH 7.40 AN D 37 DEGREES C. ID Date Data Source [id number] 05/06/2020 02:33:31 AM EDT [facility] Name Value Range Interpretation Code Description Data Apurva rce(s) Supporting Document(s) PT 11.9 s (9.2-11.9) [facility] INR 1.14 [facility] SUGGESTED THERAPEUTIC RANGES USING INR F ORSTABILIZED ANTICOAGULATED PATIENTS:STANDARD DOSE THERAPY INR 2.0-3.0 DVT, PE, PREVENT DVT OR EMBOLISMHIGH DOSE THERAPY INR 2.5-3.5 PREVENT EMBOLISM FROM MECHANICAL HEART VALVE ID Date Data Source [id number] 05/05/2020 11:02:52 PM EDT [facility] Name Value Range Interpretation Code Description Data Apurva rce(s) Supporting Document(s) WBC 8.7 10*3/uL (4.1-11.0) [facility] RBC 2.83 10*6/uL (4.00-5.40) L [facility] HGB 9.2 g/dL (12.0-16.0) L [facility] HCT 27.1 % (36.0-47.0) L [facility] MCV 95.8 fL (80.0-95.0) H [facility] MCH 32.6 pg (27.0-32.0) H [facility] MCHC 34.0 g/dL (32.0-36.0) [facility] RDW 17.0 % (10.5-14.5) [facility] PLT 447 10*3/uL (150-450) [facility] MPV 8.5 fL (7.1-10.7) [facility] ID Date Data Source [id number] 05/05/2020 09:17:54 PM EDT [facility] Name Value Range Interpretation Code Description Data Apurva rce(s) Supporting Document(s) APTT 54.7 s (22.0-34.3) H [facility] ID Date Data Source [id number] 05/05/2020 05:30:38 PM EDT [facility] Name Value Range Interpretation Code Description Data Apurva rce(s) Supporting Document(s) WBC 7.5 10*3/uL (4.1-11.0) [facility] [place] RBC 3.00 10*6/uL (4.00-5.40) L [facility] HGB 9.2 g/dL (12.0-16.0) L [facility] HCT 28.8 % (36.0-47.0) L [facility] MCV 96.2 fL (80.0-95.0) [facility] MCH 30.7 pg (27.0-32.0) [facility] MCHC 32.0 g/dL (32.0-36.0) [facility] RDW 17.0 % (10.5-14.5) [facility] PLT 461 10*3/uL (150-450) H [facility] MPV 8.9 fL (7.1-10.7) [facility] ID Date Data Source [id number] 05/05/2020 03:03:15 PM EDT [facility] Name Value Range Interpretation Code Description Data Apurva rce(s) Supporting Document(s) APTT 54.6 s (22.0-34.3) H [facility] ID Date Data Source [id number] 05/05/2020 11:11:21 AM EDT [facility] Name Value Range Interpretation Code Description Data Apurva rce(s) Supporting Document(s) PT 11.8 s (9.2-11.9) [facility] INR 1.13 [facility] SUGGESTED THERAPEUTIC RANGES USING INR F ORSTABILIZED ANTICOAGULATED PATIENTS:STANDARD DOSE THERAPY INR 2.0-3.0 DVT, PE, PREVENT DVT OR EMBOLISMHIGH DOSE THERAPY INR 2.5-3.5 PREVENT EMBOLISM FROM MECHANICAL HEART VALVE ID Date Data Source [id number] 05/05/2020 11:01:23 AM EDT [facility] Name Value Range Interpretation Code Description Data Apurva rce(s) Supporting Document(s) WBC 7.3 10*3/uL (4.1-11.0) [facility] [place] RBC 2.99 10*6/uL (4.00-5.40) L [facility] HGB 9.5 g/dL (12.0-16.0) L [facility] HCT 28.8 % (36.0-47.0) L [facility] MCV 96.3 fL (80.0-95.0) H [facility] MCH 31.9 pg (27.0-32.0) [facility] MCHC 33.1 g/dL (32.0-36.0) [facility] RDW 17.2 % (10.5-14.5) H [facility] PLT 446 10*3/uL (150-450) [facility] MPV 8.9 fL (7.1-10.7) [facility] ID Date Data Source [id number] 05/05/2020 09:36:56 AM EDT [facility] Name Value Range Interpretation Code Description Data Apurva rce(s) Supporting Document(s) SODIUM 144 mmol/L (136-145) [facility] POTASSIUM 3.9 mmol/L (3.6-5.2) [facility] CHLORIDE 108 mmol/L (100-108) [facility] CO2 28 mmol/L (22-31) [facility] ANION GAP 8 mmol/L (7-16) [facility] UREA NITROGEN 5 mg/dL (7-24) L [facility] CREATININE 0.83 mg/dL (0.60-1.00) [facility] BUN/CREAT RATIO 6.0 RATIO (10.0-20.0) L [facility] GLUCOSE 117 mg/dL (70-99) H [facility] CALCIUM 8.1 mg/dL (8.4-10.2) L [facility] GFR >60 ml/min/1.73m2 (>59) [facility] GFR ( AMER) >60 ml/min/1.73m2 (>59) [facility] GFR INTERPRETATION [facility] --NORMAL KIDNEY FUNCTION OR MILD DISEASE - GFR >OR= 60CHRONIC KIDNEY DISEASE - GFR 15 - 59RENAL FAILURE - GFR <15 Est. GFR calculation based on the MDRDstudy equation, which assumes a steadystate for creatinine. Est. GFR should notbe used for medication dosing. ID Date Data Source [id number] 05/05/2020 09:15:28 AM EDT [facility] Name Value Range Interpretation Code Description Data Apurva rce(s) Supporting Document(s) APTT 55.7 s (22.0-34.3) H [facility] ID Date Data Source [id number] 05/05/2020 03:35:09 AM EDT [facility] Name Value Range Interpretation Code Description Data Apurva rce(s) Supporting Document(s) CALCIUM IONIZED 4.88 mg/dL (4.64-5.28) [facility] IONIZED CALCIUM NORMALIZED TO PH 7.40 AN D 37 DEGREES C. ID Date Data Source [id number] 05/05/2020 03:33:59 AM EDT [facility] Name Value Range Interpretation Code Description Data Apurva rce(s) Supporting Document(s) PHOSPHORUS 2.8 mg/dL (2.5-4.5) [facility] ID Date Data Source [id number] 05/05/2020 03:33:59 AM EDT [facility] Name Value Range Interpretation Code Description Data Apurva rce(s) Supporting Document(s) MAGNESIUM 2.0 mg/dL (1.7-2.4) [facility] ID Date Data Source [id number] 05/05/2020 03:33:59 AM EDT [facility] Name Value Range Interpretation Code Description Data Apurva rce(s) Supporting Document(s) SODIUM 144 mmol/L (136-145) [facility] POTASSIUM 4.0 mmol/L (3.6-5.2) [facility] CHLORIDE 108 mmol/L (100-108) [facility] CO2 28 mmol/L (22-31) [facility] ANION GAP 8 mmol/L (7-16) [facility] UREA NITROGEN 6 mg/dL (7-24) L [facility] CREATININE 0.90 mg/dL (0.60-1.00) [facility] BUN/CREAT RATIO 6.7 RATIO (10.0-20.0) L [facility] GLUCOSE 121 mg/dL (70-99) H [facility] CALCIUM 8.2 mg/dL (8.4-10.2) L [facility] TOTAL PROTEIN 5.8 g/dL (6.4-8.2) L [facility] ALBUMIN 2.5 g/dL (3.2-4.5) L [facility] GLOBULIN 3.3 g/dL (2.7-4.3) [facility] ALB/GLOB RATIO 0.8 RATIO [facility] ALKALINE PHOSPHATASE 121 U/L (45-117) H [facility] BILIRUBIN,TOTAL 0.6 mg/dL (0.0-1.0) [facility] PLEASE NOTE:Total bilirubin results may be falselyelevated in patients taking Eltrombopag. AST (SGOT) 55 U/L (11-39) H [facility] ALT (SGPT) 47 U/L (12-78) [facility] GFR >60 ml/min/1.73m2 (>59) [facility] GFR ( AMER) >60 ml/min/1.73m2 (>59) [facility] GFR INTERPRETATION [facility] --NORMAL KIDNEY FUNCTION OR MILD DISEASE - GFR >OR= 60CHRONIC KIDNEY DISEASE - GFR 15 - 59RENAL FAILURE - GFR <15 Est. GFR calculation based on the MDRDstudy equation, which assumes a steadystate for creatinine. Est. GFR should notbe used for medication dosing. ID Date Data Source [id number] 05/05/2020 02:41:39 AM EDT [facility] Name Value Range Interpretation Code Description Data Apurva rce(s) Supporting Document(s) APTT 86.3 s (22.0-34.3) H [facility] ID Date Data Source [id number] 05/05/2020 02:33:43 AM EDT [facility] Name Value Range Interpretation Code Description Data Apurva rce(s) Supporting Document(s) WBC 7.1 10*3/uL (4.1-11.0) [facility] [place] RBC 3.00 10*6/uL (4.00-5.40) L [facility] HGB 9.3 g/dL (12.0-16.0) L [facility] HCT 28.7 % (36.0-47.0) L [facility] MCV 95.5 fL (80.0-95.0) H [facility] MCH 30.9 pg (27.0-32.0) [facility] MCHC 32.4 g/dL (32.0-36.0) [facility] RDW 17.5 % (10.5-14.5) H [facility] PLT 437 10*3/uL (150-450) [facility] MPV 8.5 fL (7.1-10.7) [facility] ID Date Data Source [id number] 05/04/2020 08:27:24 PM EDT [facility] Name Value Range Interpretation Code Description Data Apurva rce(s) Supporting Document(s) SODIUM 142 mmol/L (136-145) [facility] POTASSIUM 3.8 mmol/L (3.6-5.2) [facility] CHLORIDE 105 mmol/L (100-108) [facility] CO2 30 mmol/L (22-31) [facility] ANION GAP 7 mmol/L (7-16) [facility] UREA NITROGEN 6 mg/dL (7-24) L [facility] CREATININE 0.93 mg/dL (0.60-1.00) [facility] BUN/CREAT RATIO 6.5 RATIO (10.0-20.0) L [facility] GLUCOSE 114 mg/dL (70-99) H [facility] CALCIUM 8.4 mg/dL (8.4-10.2) [facility] GFR >60 ml/min/1.73m2 (>59) [facility] GFR ( AMER) >60 ml/min/1.73m2 (>59) [facility] GFR INTERPRETATION [facility] --NORMAL KIDNEY FUNCTION OR MILD DISEASE - GFR >OR= 60CHRONIC KIDNEY DISEASE - GFR 15 - 59RENAL FAILURE - GFR <15 Est. GFR calculation based on the MDRDstudy equation, which assumes a steadystate for creatinine. Est. GFR should notbe used for medication dosing. ID Date Data Source [id number] 05/04/2020 04:56:44 PM EDT [facility] Name Value Range Interpretation Code Description Data Apurva rce(s) Supporting Document(s) APTT 64.9 s (22.0-34.3) H [facility] ID Date Data Source [id number] 05/04/2020 02:51:38 PM EDT [facility] Name Value Range Interpretation Code Description Data Apurva rce(s) Supporting Document(s) SODIUM 143 mmol/L (136-145) [facility] POTASSIUM 4.3 mmol/L (3.6-5.2) [facility] CHLORIDE 105 mmol/L (100-108) [facility] CO2 31 mmol/L (22-31) [facility] ANION GAP 7 mmol/L (7-16) [facility] UREA NITROGEN 6 mg/dL (7-24) L [facility] CREATININE 0.93 mg/dL (0.60-1.00) [facility] BUN/CREAT RATIO 6.5 RATIO (10.0-20.0) L [facility] GLUCOSE 113 mg/dL (70-99) H [facility] CALCIUM 8.6 mg/dL (8.4-10.2) [facility] GFR >60 ml/min/1.73m2 (>59) [facility] GFR ( AMER) >60 ml/min/1.73m2 (>59) [facility] GFR INTERPRETATION [facility] --NORMAL KIDNEY FUNCTION OR MILD DISEASE - GFR >OR= 60CHRONIC KIDNEY DISEASE - GFR 15 - 59RENAL FAILURE - GFR <15 Est. GFR calculation based on the MDRDstudy equation, which assumes a steadystate for creatinine. Est. GFR should notbe used for medication dosing. ID Date Data Source [id number] 05/04/2020 10:31:51 AM EDT [facility] Name Value Range Interpretation Code Description Data Apurva rce(s) Supporting Document(s) PHOSPHORUS 3.3 mg/dL (2.5-4.5) [facility] ID Date Data Source [id number] 05/04/2020 10:31:51 AM EDT [facility] Name Value Range Interpretation Code Description Data Apurva rce(s) Supporting Document(s) SODIUM 143 mmol/L (136-145) [facility] POTASSIUM 3.7 mmol/L (3.6-5.2) [facility] CHLORIDE 105 mmol/L (100-108) [facility] CO2 33 mmol/L (22-31) H [facility] ANION GAP 5 mmol/L (7-16) L [facility] UREA NITROGEN 5 mg/dL (7-24) L [facility] CREATININE 0.78 mg/dL (0.60-1.00) [facility] BUN/CREAT RATIO 6.4 RATIO (10.0-20.0) L [facility] GLUCOSE 98 mg/dL (70-99) [facility] CALCIUM 8.6 mg/dL (8.4-10.2) [facility] GFR >60 ml/min/1.73m2 (>59) [facility] GFR ([facility]) >60 ml/min/1.73m2 (>59) [facility] GFR INTERPRETATION [facility] --NORMAL KIDNEY FUNCTION OR MILD DISEASE - GFR >OR= 60CHRONIC KIDNEY DISEASE - GFR 15 - 59RENAL FAILURE - GFR <15 Est. GFR calculation based on the MDRDstudy equation, which assumes a steadystate for creatinine. Est. GFR should notbe used for medication dosing. ID Date Data Source [id number] 05/04/2020 10:17:46 AM EDT [facility] Name Value Range Interpretation Code Description Data Apurva rce(s) Supporting Document(s) POTASSIUM 3.7 mmol/L (3.6-5.2) [facility] ID Date Data Source [id number] 05/04/2020 10:01:01 AM EDT [facility] Name Value Range Interpretation Code Description Data Apurva rce(s) Supporting Document(s) APTT 62.5 s (22.0-34.3) H [facility] ID Date Data Source [id number] 05/04/2020 02:52:18 AM EDT [facility] Name Value Range Interpretation Code Description Data Apurva rce(s) Supporting Document(s) CALCIUM IONIZED 4.92 mg/dL (4.64-5.28) [facility] IONIZED CALCIUM NORMALIZED TO PH 7.40 AN D 37 DEGREES C. ID Date Data Source [id number] 05/04/2020 02:49:43 AM EDT [facility] Name Value Range Interpretation Code Description Data Apurva rce(s) Supporting Document(s) PHOSPHORUS 3.6 mg/dL (2.5-4.5) [facility] ID Date Data Source [id number] 05/04/2020 02:49:43 AM EDT [facility] Name Value Range Interpretation Code Description Data Apurva rce(s) Supporting Document(s) MAGNESIUM 2.7 mg/dL (1.7-2.4) H [facility] ID Date Data Source [id number] 05/04/2020 02:49:43 AM EDT [facility] Name Value Range Interpretation Code Description Data Apurva rce(s) Supporting Document(s) SODIUM 146 mmol/L (136-145) H [facility] POTASSIUM 3.7 mmol/L (3.6-5.2) [facility] CHLORIDE 106 mmol/L (100-108) [facility] CO2 32 mmol/L (22-31) H [facility] ANION GAP 8 mmol/L (7-16) [facility] UREA NITROGEN 4 mg/dL (7-24) L [facility] CREATININE 0.79 mg/dL (0.60-1.00) [facility] BUN/CREAT RATIO 5.1 RATIO (10.0-20.0) L [facility] GLUCOSE 102 mg/dL (70-99) H [facility] CALCIUM 8.5 mg/dL (8.4-10.2) [facility] TOTAL PROTEIN 5.9 g/dL (6.4-8.2) L [facility] ALBUMIN 2.6 g/dL (3.2-4.5) L [facility] GLOBULIN 3.3 g/dL (2.7-4.3) [facility] ALB/GLOB RATIO 0.8 RATIO [facility] ALKALINE PHOSPHATASE 130 U/L (45-117) H [facility] BILIRUBIN,TOTAL 0.7 mg/dL (0.0-1.0) [facility] PLEASE NOTE:Total bilirubin results may be falselyelevated in patients taking Eltrombopag. AST (SGOT) 46 U/L (11-39) H [facility] ALT (SGPT) 52 U/L (12-78) [facility] GFR >60 ml/min/1.73m2 (>59) [facility] GFR ( AMER) >60 ml/min/1.73m2 (>59) [facility] GFR INTERPRETATION [facility] --NORMAL KIDNEY FUNCTION OR MILD DISEASE - GFR >OR= 60CHRONIC KIDNEY DISEASE - GFR 15 - 59RENAL FAILURE - GFR <15 Est. GFR calculation based on the MDRDstudy equation, which assumes a steadystate for creatinine. Est. GFR should notbe used for medication dosing. ID Date Data Source [id number] 05/04/2020 02:19:09 AM EDT [facility] Name Value Range Interpretation Code Description Data Apurva rce(s) Supporting Document(s) APTT 43.3 s (22.0-34.3) H [facility] ID Date Data Source [id number] 05/04/2020 02:06:17 AM EDT [facility] Name Value Range Interpretation Code Description Data Apurva rce(s) Supporting Document(s) WBC 6.7 10*3/uL (4.1-11.0) [facility] RBC 3.22 10*6/uL (4.00-5.40) L [facility] HGB 9.9 g/dL (12.0-16.0) L [facility] HCT 30.8 % (36.0-47.0) L [facility] MCV 95.6 fL (80.0-95.0) [facility] MCH 30.6 pg (27.0-32.0) [facility] MCHC 32.0 g/dL (32.0-36.0) [facility] RDW 16.9 % (10.5-14.5) [facility] PLT 425 10*3/uL (150-450) [facility] MPV 8.5 fL (7.1-10.7) [facility] ID Date Data Source [id number] 05/03/2020 09:26:23 PM EDT [facility] Name Value Range Interpretation Code Description Data Apurva rce(s) Supporting Document(s) PHOSPHORUS 3.7 mg/dL (2.5-4.5) [facility] ID Date Data Source [id number] 05/03/2020 09:26:23 PM EDT [facility] Name Value Range Interpretation Code Description Data Apurva rce(s) Supporting Document(s) MAGNESIUM 1.7 mg/dL (1.7-2.4) [facility] ID Date Data Source [id number] 05/03/2020 09:26:23 PM EDT [facility] Name Value Range Interpretation Code Description Data Apurva rce(s) Supporting Document(s) SODIUM 147 mmol/L (136-145) H [facility] POTASSIUM 4.1 mmol/L (3.6-5.2) [facility] CHLORIDE 107 mmol/L (100-108) [facility] CO2 32 mmol/L (22-31) H [facility] ANION GAP 8 mmol/L (7-16) [facility] UREA NITROGEN 4 mg/dL (7-24) L [facility] CREATININE 0.78 mg/dL (0.60-1.00) [facility] BUN/CREAT RATIO 5.1 RATIO (10.0-20.0) L [facility] GLUCOSE 94 mg/dL (70-99) [facility] CALCIUM 8.4 mg/dL (8.4-10.2) [facility] GFR >60 ml/min/1.73m2 (>59) [facility] GFR ( AMER) >60 ml/min/1.73m2 (>59) [facility] GFR INTERPRETATION [facility] --NORMAL KIDNEY FUNCTION OR MILD DISEASE - GFR >OR= 60CHRONIC KIDNEY DISEASE - GFR 15 - 59RENAL FAILURE - GFR <15 Est. GFR calculation based on the MDRDstudy equation, which assumes a steadystate for creatinine. Est. GFR should notbe used for medication dosing. ID Date Data Source [id number] 05/03/2020 02:35:10 PM EDT [facility] Name Value Range Interpretation Code Description Data Apurva rce(s) Supporting Document(s) PHOSPHORUS 3.8 mg/dL (2.5-4.5) [facility] ID Date Data Source [id number] 05/03/2020 02:35:10 PM EDT [facility] Name Value Range Interpretation Code Description Data Apurva rce(s) Supporting Document(s) MAGNESIUM 1.8 mg/dL (1.7-2.4) [facility] ID Date Data Source [id number] 05/03/2020 02:35:10 PM EDT [facility] Name Value Range Interpretation Code Description Data Apurva rce(s) Supporting Document(s) SODIUM 147 mmol/L (136-145) H [facility] POTASSIUM 3.5 mmol/L (3.6-5.2) L [facility] CHLORIDE 107 mmol/L (100-108) [facility] CO2 31 mmol/L (22-31) [facility] ANION GAP 9 mmol/L (7-16) [facility] UREA NITROGEN 4 mg/dL (7-24) L [facility] CREATININE 0.79 mg/dL (0.60-1.00) [facility] BUN/CREAT RATIO 5.1 RATIO (10.0-20.0) L [facility] GLUCOSE 96 mg/dL (70-99) [facility] CALCIUM 7.8 mg/dL (8.4-10.2) L [facility] GFR >60 ml/min/1.73m2 (>59) [facility] GFR ([facility] AM) >60 ml/min/1.73m2 (>59) [facility] GFR INTERPRETATION [facility] --NORMAL KIDNEY FUNCTION OR MILD DISEASE - GFR >OR= 60CHRONIC KIDNEY DISEASE - GFR 15 - 59RENAL FAILURE - GFR <15 Est. GFR calculation based on the MDRDstudy equation, which assumes a steadystate for creatinine. Est. GFR should notbe used for medication dosing. ID Date Data Source [id number] 05/03/2020 11:08:49 AM EDT [facility] Name Value Range Interpretation Code Description Data Apurva rce(s) Supporting Document(s) AMMONIA <10 umol/L (11-32) L [facility] ID Date Data Source [id number] 05/03/2020 10:51:22 AM EDT [facility] Name Value Range Interpretation Code Description Data Apurva rce(s) Supporting Document(s) TSH,ULTRASENSITIVE @ 3.392 mIU/L (0.360-4.170) [facility] PERFOR[facility] AT [address] [id number] ID Date Data Source [id number] 05/03/2020 08:56:50 AM EDT [facility] Name Value Range Interpretation Code Description Data Apurva rce(s) Supporting Document(s) SODIUM 147 mmol/L (136-145) H [facility] POTASSIUM 4.0 mmol/L (3.6-5.2) [facility] CHLORIDE 108 mmol/L (100-108) [facility] CO2 31 mmol/L (22-31) [facility] ANION GAP 8 mmol/L (7-16) [facility] UREA NITROGEN 4 mg/dL (7-24) L [facility] CREATININE 0.78 mg/dL (0.60-1.00) [facility] BUN/CREAT RATIO 5.1 RATIO (10.0-20.0) L [facility] GLUCOSE 106 mg/dL (70-99) H [facility] CALCIUM 8.2 mg/dL (8.4-10.2) L [facility] GFR >60 ml/min/1.73m2 (>59) [facility] GFR ( AMER) >60 ml/min/1.73m2 (>59) [facility] GFR INTERPRETATION [facility] --NORMAL KIDNEY FUNCTION OR MILD DISEASE - GFR >OR= 60CHRONIC KIDNEY DISEASE - GFR 15 - 59RENAL FAILURE - GFR <15 Est. GFR calculation based on the MDRDstudy equation, which assumes a steadystate for creatinine. Est. GFR should notbe used for medication dosing. ID Date Data Source [id number] 05/03/2020 08:56:50 AM EDT [facility] Name Value Range Interpretation Code Description Data Apurva rce(s) Supporting Document(s) MAGNESIUM 1.8 mg/dL (1.7-2.4) [facility] ID Date Data Source [id number] 05/03/2020 08:56:50 AM EDT [facility] Name Value Range Interpretation Code Description Data Apurva rce(s) Supporting Document(s) PHOSPHORUS 3.4 mg/dL (2.5-4.5) [facility] ID Date Data Source [id number] 05/03/2020 02:34:02 AM EDT [facility] Name Value Range Interpretation Code Description Data Apurva rce(s) Supporting Document(s) CALCIUM IONIZED 5.04 mg/dL (4.64-5.28) [facility] IONIZED CALCIUM NORMALIZED TO PH 7.40 AN D 37 DEGREES C. ID Date Data Source [id number] 05/03/2020 02:27:36 AM EDT [facility] Name Value Range Interpretation Code Description Data Apurva rce(s) Supporting Document(s) PHOSPHORUS 3.7 mg/dL (2.5-4.5) [facility] ID Date Data Source [id number] 05/03/2020 02:27:36 AM EDT [facility] Name Value Range Interpretation Code Description Data Apurva rce(s) Supporting Document(s) MAGNESIUM 1.8 mg/dL (1.7-2.4) [facility] ID Date Data Source [id number] 05/03/2020 02:27:36 AM EDT [facility] Name Value Range Interpretation Code Description Data Apurva rce(s) Supporting Document(s) SODIUM 147 mmol/L (136-145) H [facility] POTASSIUM 3.7 mmol/L (3.6-5.2) [facility] CHLORIDE 107 mmol/L (100-108) [facility] CO2 33 mmol/L (22-31) H [facility] ANION GAP 7 mmol/L (7-16) [facility] UREA NITROGEN 4 mg/dL (7-24) L [facility] CREATININE 0.76 mg/dL (0.60-1.00) [facility] BUN/CREAT RATIO 5.3 RATIO (10.0-20.0) L [facility] GLUCOSE 91 mg/dL (70-99) [facility] CALCIUM 8.2 mg/dL (8.4-10.2) L [facility] TOTAL PROTEIN 5.7 g/dL (6.4-8.2) L [facility] ALBUMIN 2.6 g/dL (3.2-4.5) L [facility] GLOBULIN 3.1 g/dL (2.7-4.3) [facility] ALB/GLOB RATIO 0.8 RATIO [facility] ALKALINE PHOSPHATASE 117 U/L (45-117) [facility] BILIRUBIN,TOTAL 0.8 mg/dL (0.0-1.0) [facility] PLEASE NOTE:Total bilirubin results may be falselyelevated in patients taking Eltrombopag. AST (SGOT) 55 U/L (11-39) H [facility] ALT (SGPT) 62 U/L (12-78) [facility] GFR >60 ml/min/1.73m2 (>59) [facility] GFR ( AMER) >60 ml/min/1.73m2 (>59) [facility] GFR INTERPRETATION [facility] --NORMAL KIDNEY FUNCTION OR MILD DISEASE - GFR >OR= 60CHRONIC KIDNEY DISEASE - GFR 15 - 59RENAL FAILURE - GFR <15 Est. GFR calculation based on the MDRDstudy equation, which assumes a steadystate for creatinine. Est. GFR should notbe used for medication dosing. ID Date Data Source [id number] 05/03/2020 01:59:12 AM EDT [facility] Name Value Range Interpretation Code Description Data [facility] Supporting Document(s) APTT 70.7 s (22.0-34.3) H [facility] ID Date Data Source [id number] 05/03/2020 01:42:52 AM EDT [facility] Name Value Range Interpretation Code Description Data Apurva rce(s) Supporting Document(s) WBC 6.3 10*3/uL (4.1-11.0) [facility] RBC 3.21 10*6/uL (4.00-5.40) L [facility] HGB 9.8 g/dL (12.0-16.0) L [facility] HCT 30.7 % (36.0-47.0) L [facility] MCV 95.4 fL (80.0-95.0) H [facility] MCH 30.6 pg (27.0-32.0) [facility] MCHC 32.0 g/dL (32.0-36.0) [facility] RDW 17.0 % (10.5-14.5) [facility] PLT 341 10*3/uL (150-450) [facility] MPV 8.2 fL (7.1-10.7) [facility] ID Date Data Source [id number] 05/02/2020 09:01:03 PM EDT [facility] Name Value Range Interpretation Code Description Data Apurva rce(s) Supporting Document(s) PHOSPHORUS 3.5 mg/dL (2.5-4.5) [facility] ID Date Data Source [id number] 05/02/2020 09:01:03 PM EDT [facility] Name Value Range Interpretation Code Description Data Apurva rce(s) Supporting Document(s) MAGNESIUM 2.0 mg/dL (1.7-2.4) [facility] ID Date Data Source [id number] 05/02/2020 09:01:03 PM EDT [facility] Name Value Range Interpretation Code Description Data Apurva rce(s) Supporting Document(s) SODIUM 147 mmol/L (136-145) H [facility] POTASSIUM 3.6 mmol/L (3.6-5.2) [facility] CHLORIDE 108 mmol/L (100-108) [facility] CO2 33 mmol/L (22-31) H [facility] ANION GAP 6 mmol/L (7-16) L [facility] UREA NITROGEN 4 mg/dL (7-24) L [facility] CREATININE 0.75 mg/dL (0.60-1.00) [facility] BUN/CREAT RATIO 5.3 RATIO (10.0-20.0) L [facility] GLUCOSE 101 mg/dL (70-99) H [facility] CALCIUM 8.3 mg/dL (8.4-10.2) L [facility] GFR >60 ml/min/1.73m2 (>59) [facility] GFR ( AMER) >60 ml/min/1.73m2 (>59) [facility] GFR INTERPRETATION [facility] --NORMAL KIDNEY FUNCTION OR MILD DISEASE - GFR >OR= 60CHRONIC KIDNEY DISEASE - GFR 15 - 59RENAL FAILURE - GFR <15 Est. GFR calculation based on the MDRDstudy equation, which assumes a steadystate for creatinine. Est. GFR should notbe used for medication dosing. ID Date Data Source [id number] 05/02/2020 05:43:53 PM EDT [facility] Name Value Range Interpretation Code Description Data Apurva rce(s) Supporting Document(s) APTT 82.3 s (22.0-34.3) H [facility] ID Date Data Source [id number] 05/02/2020 02:28:07 PM EDT [facility] Name Value Range Interpretation Code Description Data Apurva rce(s) Supporting Document(s) WBC 7.3 10*3/uL (4.1-11.0) [facility] [place] RBC 3.09 10*6/uL (4.00-5.40) L [facility] HGB 9.5 g/dL (12.0-16.0) L [facility] HCT 29.7 % (36.0-47.0) L [facility] MCV 96.1 fL (80.0-95.0) H [facility] MCH 30.7 pg (27.0-32.0) [facility] MCHC 31.9 g/dL (32.0-36.0) L [facility] RDW 17.4 % (10.5-14.5) H [facility] PLT 307 10*3/uL (150-450) [facility] MPV 8.1 fL (7.1-10.7) [facility] ID Date Data Source [id number] 05/02/2020 02:41:58 PM EDT [facility] Name Value Range Interpretation Code Description Data Apurva rce(s) Supporting Document(s) PHOSPHORUS 3.5 mg/dL (2.5-4.5) [facility] ID Date Data Source [id number] 05/02/2020 02:41:58 PM EDT [facility] Name Value Range Interpretation Code Description Data Apurva rce(s) Supporting Document(s) MAGNESIUM 2.2 mg/dL (1.7-2.4) [facility] ID Date Data Source [id number] 05/02/2020 02:41:58 PM EDT [facility] Name Value Range Interpretation Code Description Data Apurva rce(s) Supporting Document(s) SODIUM 148 mmol/L (136-145) H [facility] POTASSIUM 4.0 mmol/L (3.6-5.2) [facility] CHLORIDE 110 mmol/L (100-108) H [facility] CO2 33 mmol/L (22-31) [facility] ANION GAP 5 mmol/L (7-16) L [facility] UREA NITROGEN 3 mg/dL (7-24) L [facility] CREATININE 0.72 mg/dL (0.60-1.00) [facility] BUN/CREAT RATIO 4.2 RATIO (10.0-20.0) L [facility] GLUCOSE 97 mg/dL (70-99) [facility] CALCIUM 8.3 mg/dL (8.4-10.2) L [facility] GFR >60 ml/min/1.73m2 (>59) [facility] GFR ( AMER) >60 ml/min/1.73m2 (>59) [facility] GFR INTERPRETATION [facility] --NORMAL KIDNEY FUNCTION OR MILD DISEASE - GFR >OR= 60CHRONIC KIDNEY DISEASE - GFR 15 - 59RENAL FAILURE - GFR <15 Est. GFR calculation based on the MDRDstudy equation, which assumes a steadystate for creatinine. Est. GFR should notbe used for medication dosing. ID Date Data Source [id number] 05/02/2020 02:45:00 PM EDT [facility] Greg Garrido MA, [place], [place] [address]PATIENT NAME: MELVA JAMESDADATE OF : 2REPORT: CONSULTATIONPATIENT NUMBER: [id number] STATUS: :ADDICTION MEDICINE CONSULTDATE OF CONSULTATION: 05/02/2020The patient is a 69-year-old female, who was transferred to [facility] 04/25/2020 from an outside hospital. She was reportedly drinking aliter of vodka a day, however[facility] bleed, acute pancreatitis,elevated AG metabolic acidosis, acute alcohol withdrawal and so on. Pleaserefer to the patient's medical file for further information regarding hermedical status. Since receiving the addiction medicine consult on04/26/2020, the patient has continued to be either in an altered mentalstatus, not responding, extremely agitated and aggressive, or sedated. When the patient's mental status improves, this typewriters functional tester would be happy to complete an addiction medicine consult. However, at this time, that is not feasible.Please contact addiction medicine consult if there are any furtherquestions at [phone] or directly within the hospital at [phone]. Should the referring doctor prefer to have an addiction medicine consult completed with medical doctor, please contact us and we will make those arrangements.Thank you for your consultation referral.DICTATED BY: Greg Garrido MA, ANSONACDictated: 05/02/2020 12:49DT: 05/02/2020 12:54Job #: [id number]: [facility] computer generated reports are notconfirmed or authenticated unless they are signed by the providerElectronically Authenticated and Edited by:GREG GARRIDO On 05/02/2020 02:45 PM EDT Name Value Range Interpretation Code Description Data Apurva rce(s) Supporting Document(s) ID Date Data Source [id number] 05/02/2020 11:53:26 AM EDT [facility] Name Value Range Interpretation Code Description Data Apurva rce(s) Supporting Document(s) APTT 77.4 s (22.0-34.3) H [facility] ID Date Data Source [id number] 05/02/2020 08:40:17 AM EDT [facility] Name Value Range Interpretation Code Description Data Apurva rce(s) Supporting Document(s) SODIUM 147 mmol/L (136-145) H [facility] POTASSIUM 3.5 mmol/L (3.6-5.2) L [facility] CHLORIDE 109 mmol/L (100-108) H [facility] CO2 32 mmol/L (22-31) H [facility] ANION GAP 6 mmol/L (7-16) L [facility] UREA NITROGEN 3 mg/dL (7-24) L [facility] CREATININE 0.70 mg/dL (0.60-1.00) [facility] BUN/CREAT RATIO 4.3 RATIO (10.0-20.0) L [facility] GLUCOSE 112 mg/dL (70-99) H [facility] CALCIUM 8.5 mg/dL (8.4-10.2) [facility] GFR >60 ml/min/1.73m2 (>59) [facility] GFR ( AMER) >60 ml/min/1.73m2 (>59) [facility] GFR INTERPRETATION [facility] --NORMAL KIDNEY FUNCTION OR MILD DISEASE - GFR >OR= 60CHRONIC KIDNEY DISEASE - GFR 15 - 59RENAL FAILURE - GFR <15 Est. GFR calculation based on the MDRDstudy equation, which assumes a steadystate for creatinine. Est. GFR should notbe used for medication dosing. ID Date Data Source [id number] 05/02/2020 08:40:17 AM EDT [facility] Name Value Range Interpretation Code Description Data Apurva rce(s) Supporting Document(s) MAGNESIUM 2.7 mg/dL (1.7-2.4) H [facility] ID Date Data Source [id number] 05/02/2020 08:40:17 AM EDT [facility] Name Value Range Interpretation Code Description Data Apurva rce(s) Supporting Document(s) PHOSPHORUS 3.6 mg/dL (2.5-4.5) [facility] ID Date Data Source [id number] 05/02/2020 04:19:18 AM EDT [facility] Name Value Range Interpretation Code Description Data Apurva rce(s) Supporting Document(s) APTT 54.3 s (22.0-34.3) H [facility] ID Date Data Source [id number] 05/02/2020 03:03:11 AM EDT [facility] Name Value Range Interpretation Code Description Data Apurva rce(s) Supporting Document(s) CALCIUM IONIZED 4.88 mg/dL (4.64-5.28) [facility] IONIZED CALCIUM NORMALIZED TO PH 7.40 AN D 37 DEGREES C. ID Date Data Source [id number] 05/02/2020 03:02:25 AM EDT [facility] Name Value Range Interpretation Code Description Data Apurva rce(s) Supporting Document(s) PHOSPHORUS 3.7 mg/dL (2.5-4.5) [facility] ID Date Data Source [id number] 05/02/2020 03:02:25 AM EDT [facility] Name Value Range Interpretation Code Description Data Apurva rce(s) Supporting Document(s) MAGNESIUM 1.7 mg/dL (1.7-2.4) [facility] ID Date Data Source [id number] 05/02/2020 03:02:25 AM EDT [facility] Name Value Range Interpretation Code Description Data Apurva rce(s) Supporting Document(s) SODIUM 150 mmol/L (136-145) H [facility] POTASSIUM 3.2 mmol/L (3.6-5.2) L [facility] CHLORIDE 112 mmol/L (100-108) H [facility] CO2 32 mmol/L (22-31) H [facility] ANION GAP 6 mmol/L (7-16) L [facility] UREA NITROGEN 4 mg/dL (7-24) L [facility] CREATININE 0.74 mg/dL (0.60-1.00) [facility] BUN/CREAT RATIO 5.4 RATIO (10.0-20.0) L [facility] GLUCOSE 111 mg/dL (70-99) H [facility] CALCIUM 8.1 mg/dL (8.4-10.2) L [facility] TOTAL PROTEIN 5.4 g/dL (6.4-8.2) L [facility] ALBUMIN 2.5 g/dL (3.2-4.5) L [facility] GLOBULIN 2.9 g/dL (2.7-4.3) [facility] ALB/GLOB RATIO 0.9 RATIO [facility] ALKALINE PHOSPHATASE 121 U/L (45-117) H [facility] BILIRUBIN,TOTAL 0.8 mg/dL (0.0-1.0) [facility] PLEASE NOTE:Total bilirubin results may be falselyelevated in patients taking Eltrombopag. AST (SGOT) 66 U/L (11-39) H [facility] ALT (SGPT) 70 U/L (12-78) [facility] GFR >60 ml/min/1.73m2 (>59) [facility] GFR ( AMER) >60 ml/min/1.73m2 (>59) [facility] GFR INTERPRETATION [facility] --NORMAL KIDNEY FUNCTION OR MILD DISEASE - GFR >OR= 60CHRONIC KIDNEY DISEASE - GFR 15 - 59RENAL FAILURE - GFR <15 Est. GFR calculation based on the MDRDstudy equation, which assumes a steadystate for creatinine. Est. GFR should notbe used for medication dosing. ID Date Data Source [id number] 05/02/2020 02:23:43 AM EDT [facility] Name Value Range Interpretation Code Description Data Apurva rce(s) Supporting Document(s) WBC 7.0 10*3/uL (4.1-11.0) [facility] [place] RBC 3.00 10*6/uL (4.00-5.40) L [facility] HGB 9.3 g/dL (12.0-16.0) L [facility] HCT 28.7 % (36.0-47.0) L [facility] MCV 95.4 fL (80.0-95.0) H [facility] MCH 30.9 pg (27.0-32.0) [facility] MCHC 32.4 g/dL (32.0-36.0) [facility] RDW 17.3 % (10.5-14.5) H [facility] PLT 258 10*3/uL (150-450) [facility] MPV 8.1 fL (7.1-10.7) [facility] ID Date Data Source [id number] 05/01/2020 08:59:55 PM EDT [facility] Name Value Range Interpretation Code Description Data Apurva rce(s) Supporting Document(s) APTT 30.5 s (22.0-34.3) [facility] ID Date Data Source [id number] 05/01/2020 09:09:59 PM EDT [facility] Name Value Range Interpretation Code Description Data Apurva rce(s) Supporting Document(s) SODIUM 149 mmol/L (136-145) H [facility] POTASSIUM 3.7 mmol/L (3.6-5.2) [facility] CHLORIDE 113 mmol/L (100-108) H [facility] CO2 30 mmol/L (22-31) [facility] ANION GAP 6 mmol/L (7-16) L [facility] UREA NITROGEN 3 mg/dL (7-24) L [facility] CREATININE 0.77 mg/dL (0.60-1.00) [facility] BUN/CREAT RATIO 3.9 RATIO (10.0-20.0) L [facility] GLUCOSE 117 mg/dL (70-99) H [facility] CALCIUM 7.8 mg/dL (8.4-10.2) L [facility] GFR >60 ml/min/1.73m2 (>59) [facility] GFR ( AMER) >60 ml/min/1.73m2 (>59) [facility] GFR INTERPRETATION [facility] --NORMAL KIDNEY FUNCTION OR MILD DISEASE - GFR >OR= 60CHRONIC KIDNEY DISEASE - GFR 15 - 59RENAL FAILURE - GFR <15 Est. GFR calculation based on the MDRDstudy equation, which assumes a steadystate for creatinine. Est. GFR should notbe used for medication dosing. ID Date Data Source [id number] 05/01/2020 04:30:54 PM EDT [facility] Name Value Range Interpretation Code Description Data Apurva rce(s) Supporting Document(s) PHOSPHORUS 3.5 mg/dL (2.5-4.5) [facility] ID Date Data Source [id number] 05/01/2020 02:50:49 PM EDT [facility] Name Value Range Interpretation Code Description Data Apruva rce(s) Supporting Document(s) MAGNESIUM 2.0 mg/dL (1.7-2.4) [facility] ID Date Data Source [id number] 05/01/2020 02:50:49 PM EDT [facility] Name Value Range Interpretation Code Description Data Apurva rce(s) Supporting Document(s) SODIUM 149 mmol/L (136-145) H [facility] POTASSIUM 3.7 mmol/L (3.6-5.2) [facility] CHLORIDE 114 mmol/L (100-108) H [facility] CO2 28 mmol/L (22-31) [facility] ANION GAP 7 mmol/L (7-16) [facility] UREA NITROGEN 3 mg/dL (7-24) L [facility] CREATININE 0.79 mg/dL (0.60-1.00) [facility] BUN/CREAT RATIO 3.8 RATIO (10.0-20.0) L [facility] GLUCOSE 119 mg/dL (70-99) H [facility] CALCIUM 7.7 mg/dL (8.4-10.2) L [facility] GFR >60 ml/min/1.73m2 (>59) [facility] GFR ( AMER) >60 ml/min/1.73m2 (>59) [facility] GFR INTERPRETATION [facility] --NORMAL KIDNEY FUNCTION OR MILD DISEASE - GFR >OR= 60CHRONIC KIDNEY DISEASE - GFR 15 - 59RENAL FAILURE - GFR <15 Est. GFR calculation based on the MDRDstudy equation, which assumes a steadystate for creatinine. Est. GFR should notbe used for medication dosing. ID Date Data Source [id number] 05/01/2020 02:30:27 PM EDT [facility] Name Value Range Interpretation Code Description Data Apurva rce(s) Supporting Document(s) APTT 22.1 s (22.0-34.3) [facility] ID Date Data Source [id number] 05/01/2020 02:30:27 PM EDT [facility] Name Value Range Interpretation Code Description Data Apurva rce(s) Supporting Document(s) PT 11.5 s (9.2-11.9) [facility] INR 1.10 [facility] SUGGESTED THERAPEUTIC RANGES USING INR F ORSTABILIZED ANTICOAGULATED PATIENTS:STANDARD DOSE THERAPY INR 2.0-3.0 DVT, PE, PREVENT DVT OR EMBOLISMHIGH DOSE THERAPY INR 2.5-3.5 PREVENT EMBOLISM FROM MECHANICAL HEART VALVE ID Date Data Source [id number] 05/01/2020 01:15:00 PM EDT [facility] DATE OF EXAM: 05/01/2020US DVT ARM [facility] HISTORY: PERIPHERAL EDEMA TECHNIQUE: Romano scale, color and duplex Doppler imaging of bilateral upper extremity veins and bilateral subclavian veins was performed. FINDINGS: Nonocclusive thrombus is visualized in the right subclavian vein. Superficial thrombus is visualized within the right cephalic vein and median cubital vein. Patent left internal jugular, axillary, basilic, cephalic and paired brachial veins. The left subclavian vein is patent. IMPRESSION: Nonocclusive thrombus is visualized in the right subclavian vein. Professional interpretation performed at [facility] .End of diagnostic report for accession: [id number] Interpreted: Park Fragabed: 05/01/2020 01:12 PMSigned: 05/01/2020 01:15 PM Park Fraga DO [facility] # [id number] [facility] # [id number] Name Value Range Interpretation Code Description Data Apurva rce(s) Supporting Document(s) ID Date Data Source [id number] 05/01/2020 11:20:00 AM EDT [facility] DATE OF EXAM: 05/01/2020EXAM:Abdomen NG Tube Placement Port CLINICAL INDICATION: NG TUBE PLACEMENT TECHNIQUE: A single coned-down view of the chest and upper abdomen was obtained. COMPARISON: None. IMPRESSION: An enteric tube is visualized with its tip and side-port reaching the expected location of the stomach. Professional interpretation performed at [facility] .End of diagnostic report for accession: [id number] Interpreted: Park Fraga: 05/01/2020 11:19 AMSigned: 05/01/2020 11:20 AM Park Fraga DO [facility] # [id number] [facility] # [id number] Name Value Range Interpretation Code Description Data Apurva rce(s) Supporting Document(s) ID Date Data Source [id number] 05/01/2020 08:19:42 AM EDT [facility] Name Value Range Interpretation Code Description Data Apurva rce(s) Supporting Document(s) PHOSPHORUS 3.5 mg/dL (2.5-4.5) [facility] ID Date Data Source [id number] 05/01/2020 08:19:42 AM EDT [facility] Name Value Range Interpretation Code Description Data Apurva rce(s) Supporting Document(s) MAGNESIUM 2.0 mg/dL (1.7-2.4) [facility] ID Date Data Source [id number] 05/01/2020 08:19:42 AM EDT [facility] Name Value Range Interpretation Code Description Data Apurva rce(s) Supporting Document(s) SODIUM 149 mmol/L (136-145) H [facility] POTASSIUM 3.8 mmol/L (3.6-5.2) [facility] CHLORIDE 113 mmol/L (100-108) H [facility] CO2 27 mmol/L (22-31) [facility] ANION GAP 9 mmol/L (7-16) [facility] UREA NITROGEN 3 mg/dL (7-24) L [facility] CREATININE 0.80 mg/dL (0.60-1.00) [facility] BUN/CREAT RATIO 3.8 RATIO (10.0-20.0) L [facility] GLUCOSE 116 mg/dL (70-99) H [facility] CALCIUM 7.7 mg/dL (8.4-10.2) L [facility] GFR >60 ml/min/1.73m2 (>59) [facility] GFR ( AMER) >60 ml/min/1.73m2 (>59) [facility] GFR INTERPRETATION [facility] --NORMAL KIDNEY FUNCTION OR MILD DISEASE - GFR >OR= 60CHRONIC KIDNEY DISEASE - GFR 15 - 59RENAL FAILURE - GFR <15 Est. GFR calculation based on the MDRDstudy equation, which assumes a steadystate for creatinine. Est. GFR should notbe used for medication dosing. ID Date Data Source [id number] 05/01/2020 01:00:28 AM EDT [facility] Name Value Range Interpretation Code Description Data Apurva rce(s) Supporting Document(s) CALCIUM IONIZED 4.76 mg/dL (4.64-5.28) [facility] IONIZED CALCIUM NORMALIZED TO PH 7.40 AN D 37 DEGREES C. ID Date Data Source [id number] 05/01/2020 12:56:28 AM EDT [facility] Name Value Range Interpretation Code Description Data Apurva rce(s) Supporting Document(s) PHOSPHORUS 3.2 mg/dL (2.5-4.5) [facility] ID Date Data Source [id number] 05/01/2020 12:56:28 AM EDT [facility] Name Value Range Interpretation Code Description Data Apurva rce(s) Supporting Document(s) MAGNESIUM 2.1 mg/dL (1.7-2.4) [facility] ID Date Data Source [id number] 05/01/2020 12:56:28 AM EDT [facility] Name Value Range Interpretation Code Description Data Apurva rce(s) Supporting Document(s) SODIUM 148 mmol/L (136-145) H [facility] POTASSIUM 3.5 mmol/L (3.6-5.2) L [facility] CHLORIDE 112 mmol/L (100-108) H [facility] CO2 28 mmol/L (22-31) [facility] ANION GAP 8 mmol/L (7-16) [facility] UREA NITROGEN 3 mg/dL (7-24) L [facility] CREATININE 0.75 mg/dL (0.60-1.00) [facility] BUN/CREAT RATIO 4.0 RATIO (10.0-20.0) L [facility] GLUCOSE 119 mg/dL (70-99) H [facility] CALCIUM 7.6 mg/dL (8.4-10.2) L [facility] TOTAL PROTEIN 5.3 g/dL (6.4-8.2) L [facility] ALBUMIN 2.5 g/dL (3.2-4.5) L [facility] GLOBULIN 2.8 g/dL (2.7-4.3) [facility] ALB/GLOB RATIO 0.9 RATIO [facility] ALKALINE PHOSPHATASE 119 U/L (45-117) H [facility] BILIRUBIN,TOTAL 1.0 mg/dL (0.0-1.0) [facility] PLEASE NOTE:Total bilirubin results may be falselyelevated in patients taking Eltrombopag. AST (SGOT) 77 U/L (11-39) H [facility] ALT (SGPT) 84 U/L (12-78) H [facility] GFR >60 ml/min/1.73m2 (>59) [facility] GFR ( AMER) >60 ml/min/1.73m2 (>59) [facility] GFR INTERPRETATION [facility] --NORMAL KIDNEY FUNCTION OR MILD DISEASE - GFR >OR= 60CHRONIC KIDNEY DISEASE - GFR 15 - 59RENAL FAILURE - GFR <15 Est. GFR calculation based on the MDRDstudy equation, which assumes a steadystate for creatinine. Est. GFR should notbe used for medication dosing. ID Date Data Source [id number] 05/01/2020 12:31:49 AM EDT [facility] Name Value Range Interpretation Code Description Data Apurva rce(s) Supporting Document(s) WBC 7.3 10*3/uL (4.1-11.0) [facility] [place] RBC 2.80 10*6/uL (4.00-5.40) L [facility] HGB 8.9 g/dL (12.0-16.0) L [facility] HCT 26.8 % (36.0-47.0) L [facility] MCV 95.4 fL (80.0-95.0) H [facility] MCH 31.9 pg (27.0-32.0) [facility] MCHC 33.4 g/dL (32.0-36.0) [facility] RDW 16.9 % (10.5-14.5) H [facility] PLT 195 10*3/uL (150-450) [facility] MPV 9.3 fL (7.1-10.7) [facility] ID Date Data Source [id number] 04/30/2020 06:32:47 PM EDT [facility] Name Value Range Interpretation Code Description Data Apurva rce(s) Supporting Document(s) PHOSPHORUS 3.4 mg/dL (2.5-4.5) [facility] ID Date Data Source [id number] 04/30/2020 06:32:47 PM EDT [facility] Name Value Range Interpretation Code Description Data Apurva rce(s) Supporting Document(s) MAGNESIUM 2.4 mg/dL (1.7-2.4) [facility] ID Date Data Source [id number] 04/30/2020 06:32:47 PM EDT [facility] Name Value Range Interpretation Code Description Data Apurva rce(s) Supporting Document(s) SODIUM 145 mmol/L (136-145) [facility] POTASSIUM 3.8 mmol/L (3.6-5.2) [facility] CHLORIDE 112 mmol/L (100-108) H [facility] CO2 26 mmol/L (22-31) [facility] ANION GAP 7 mmol/L (7-16) [facility] UREA NITROGEN 3 mg/dL (7-24) L [facility] CREATININE 0.72 mg/dL (0.60-1.00) [facility] BUN/CREAT RATIO 4.2 RATIO (10.0-20.0) L [facility] GLUCOSE 126 mg/dL (70-99) H [facility] CALCIUM 7.5 mg/dL (8.4-10.2) L [facility] GFR >60 ml/min/1.73m2 (>59) [facility] GFR ( AMER) >60 ml/min/1.73m2 (>59) [facility] GFR INTERPRETATION [facility] --NORMAL KIDNEY FUNCTION OR MILD DISEASE - GFR >OR= 60CHRONIC KIDNEY DISEASE - GFR 15 - 59RENAL FAILURE - GFR <15 Est. GFR calculation based on the MDRDstudy equation, which assumes a steadystate for creatinine. Est. GFR should notbe used for medication dosing. ID Date Data Source [id number] 04/30/2020 09:38:42 AM EDT [facility] Name Value Range Interpretation Code Description Data Apurva rce(s) Supporting Document(s) VANCOMYCIN TROUGH 16.5 ug/mL (10.0-20.0) [facility] ID Date Data Source [id number] 04/30/2020 09:38:42 AM EDT [facility] Name Value Range Interpretation Code Description Data Apurva rce(s) Supporting Document(s) MAGNESIUM 1.7 mg/dL (1.7-2.4) [facility] ID Date Data Source [id number] 04/30/2020 09:38:42 AM EDT [facility] Name Value Range Interpretation Code Description Data Apurva rce(s) Supporting Document(s) PHOSPHORUS 2.9 mg/dL (2.5-4.5) [facility] ID Date Data Source [id number] 04/30/2020 09:38:42 AM EDT [facility] Name Value Range Interpretation Code Description Data Apurva rce(s) Supporting Document(s) SODIUM 146 mmol/L (136-145) H [facility] POTASSIUM 3.3 mmol/L (3.6-5.2) L [facility] CHLORIDE 112 mmol/L (100-108) H [facility] CO2 24 mmol/L (22-31) [facility] ANION GAP 10 mmol/L (7-16) [facility] UREA NITROGEN 3 mg/dL (7-24) L [facility] CREATININE 0.72 mg/dL (0.60-1.00) [facility] BUN/CREAT RATIO 4.2 RATIO (10.0-20.0) L [facility] GLUCOSE 130 mg/dL (70-99) H [facility] CALCIUM 7.2 mg/dL (8.4-10.2) L [facility] GFR >60 ml/min/1.73m2 (>59) [facility] GFR ( AMER) >60 ml/min/1.73m2 (>59) [facility] GFR INTERPRETATION [facility] --NORMAL KIDNEY FUNCTION OR MILD DISEASE - GFR >OR= 60CHRONIC KIDNEY DISEASE - GFR 15 - 59RENAL FAILURE - GFR <15 Est. GFR calculation based on the MDRDstudy equation, which assumes a steadystate for creatinine. Est. GFR should notbe used for medication dosing. ID Date Data Source [id number] 04/30/2020 03:11:02 AM EDT [facility] Name Value Range Interpretation Code Description Data Apurva rce(s) Supporting Document(s) COLOR [facility] APPEARANCE [facility] SPEC GRAV URINE 1.013 (1.003-1.030) [facility] PH URINE 5.0 (5.0-7.5) [facility] LEUK ESTERASE 1+ (NEG) A [facility] NITRITE URINE (NEG) [facility] PROTEIN URINE (NEG) [facility] GLUCOSE URINE (NEG) [facility] KETONE URINE (NEG) [facility] UROBILINOGEN 0.2 mg/dL (0-1.0) [facility] BILIRUBIN URINE (NEG) [facility] BLOOD/HGB URINE 3+ (NEG) A [facility] URINE WBC (0-5) [facility] URINE RBC (0-2) [facility] BACTERIA 1+ [HPF] [facility] MUCUS 1+ [HPF] [facility] YEAST 1+ [HPF] [facility] ID Date Data Source [id number] 04/30/2020 08:49:00 AM EDT [facility] DATE OF EXAM: 04/30/2020Chest 1V Portabl e CLINICAL STATEMENT: DYSPNEA TECHNIQUE: Portable AP upright view of the chest. COMPARISON: 04/28/2020. FINDINGS: Consolidation and atelectasis noted in the right midlung. Hazy increased density at the lung bases bilaterally suggestive of bilateral effusions. Relative clearing in the perihilar region compared with the prior study of 04/28/2020.There is no pneumothorax bilaterally.The cardiac silhouette is within normal limits. Mediastinal contours appear within normal limits.Mild blunting/obscuration of the CP anglesThe visualized osseous structures appear unremarkable. IMPRESSION: New atelectasis right midlung. Probable effusions layering posteriorly bilaterally. X7End of diagnostic report for accession: [id number] Interpreted: Shahzad Perez MDTranscribed: 04/30/2020 08:43 AMSigned: 04/30/2020 08:49 AM Shahzad Perez MD [facility] # [id number] [facility] # [id number] Name Value Range Interpretation Code Description Data Apurva rce(s) Supporting Document(s) ID Date Data Source [id number] 04/30/2020 02:38:46 AM EDT [facility] Name Value Range Interpretation Code Description Data Apurva rce(s) Supporting Document(s) SOURCE [facility] FIO2 60 % [facility] PH 7.39 (7.35-7.45) [facility] PCO2 32 mm[Hg] (32-48) [facility] PO2 95 mm[Hg] (83-108) [facility] O2 SATURATION 96.2 % (95.0-99.0) [facility] BASE DEFICIT 5.3 mmol/L (0.0-2.0) H [facility] [facility] HCO3 18.9 mmol/L (21.0-29.0) [facility] TOTAL CO2 19.8 mmol/L (23.0-32.0) [facility] BODY TEMPERATURE 98.6 [degF] [facility] ID Date Data Source [id number] 04/30/2020 02:47:45 AM EDT [facility] Name Value Range Interpretation Code Description Data [facility] Supporting Document(s) WBC 8.3 10*3/uL (4.1-11.0) [facility] [place] RBC 3.08 10*6/uL (4.00-5.40) [facility] HGB 9.5 g/dL (12.0-16.0) [facility] HCT 29.6 % (36.0-47.0) [facility] MCV 96.0 fL (80.0-95.0) [facility] MCH 30.9 pg (27.0-32.0) [facility] MCHC 32.1 g/dL (32.0-36.0) [facility] RDW 16.3 % (10.5-14.5) [facility] PLT 169 10*3/uL (150-450) [facility] MPV 9.3 fL (7.1-10.7) [facility] ID Date Data Source [id number] 04/30/2020 02:39:46 AM EDT [facility] Name Value Range Interpretation Code Description Data [facility](s) Supporting Document(s) SODIUM 146 mmol/L (136-145) [facility] POTASSIUM 3.8 mmol/L (3.6-5.2) [facility] CHLORIDE 113 mmol/L (100-108) [facility] CO2 25 mmol/L (22-31) [facility] ANION GAP 8 mmol/L (7-16) [facility] UREA NITROGEN 3 mg/dL (7-24) [facility] CREATININE 0.68 mg/dL (0.60-1.00) [facility] BUN/CREAT RATIO 4.4 RATIO (10.0-20.0) [facility] GLUCOSE 116 mg/dL (70-99) [facility] CALCIUM 7.2 mg/dL (8.4-10.2) [facility] GFR >60 ml/min/1.73m2 (>59) [facility] GFR ( AMER) >60 ml/min/1.73m2 (>59) [facility] GFR INTERPRETATION [facility] --NORMAL KIDNEY FUNCTION OR MILD DISEASE - GFR >OR= 60CHRONIC KIDNEY DISEASE - GFR 15 - 59RENAL FAILURE - GFR <15 Est. GFR calculation based on the MDRDstudy equation, which assumes a steadystate for creatinine. Est. GFR should notbe used for medication dosing. ID Date Data Source [id number] 04/29/2020 09:04:58 PM EDT [facility] Name Value Range Interpretation Code Description Data [facility](s) Supporting Document(s) SODIUM 144 mmol/L (136-145) [facility] POTASSIUM 3.6 mmol/L (3.6-5.2) [facility] CHLORIDE 111 mmol/L (100-108) [facility] CO2 24 mmol/L (22-31) [facility] ANION GAP 9 mmol/L (7-16) [facility] UREA NITROGEN 3 mg/dL (7-24) [facility] CREATININE 0.56 mg/dL (0.60-1.00) [facility] BUN/CREAT RATIO 5.4 RATIO (10.0-20.0) [facility] GLUCOSE 126 mg/dL (70-99) [facility] CALCIUM 7.3 mg/dL (8.4-10.2) [facility] GFR >60 ml/min/1.73m2 (>59) [facility] GFR ( AMER) >60 ml/min/1.73m2 (>59) [facility] GFR INTERPRETATION [facility] --NORMAL KIDNEY FUNCTION OR MILD DISEASE - GFR >OR= 60CHRONIC KIDNEY DISEASE - GFR 15 - 59RENAL FAILURE - GFR <15 Est. GFR calculation based on the MDRDstudy equation, which assumes a steadystate for creatinine. Est. GFR should notbe used for medication dosing. ID Date Data Source [id number] 04/29/2020 09:04:58 PM EDT [facility] Name Value Range Interpretation Code Description Data [facility](s) Supporting Document(s) MAGNESIUM 1.8 mg/dL (1.7-2.4) [facility] ID Date Data Source [id number] 04/29/2020 09:04:58 PM EDT [facility] Name Value Range Interpretation Code Description Data [facility](s) Supporting Document(s) PHOSPHORUS 2.8 mg/dL (2.5-4.5) [facility] ID Date Data Source [id number] 04/30/2020 10:05:15 AM EDT [facility] Name Value Range Interpretation Code Description Data [facility](s) Supporting Document(s) SPECIMEN DESCRIPTION [facility] STAPH SCREEN RESULTS (ONEGSA) [facility] COMMENT [facility] GENE TO DETECT STAPH AUREUS. (2) RT-P CR WAS PERFORMED FOR THE mecA AND [employer] GENES TO DETECT METHICILLIN RESISTANCE IN STAPH AUREUS. ID Date Data Source [id number] 04/29/2020 02:23:18 PM EDT [facility] Name Value Range Interpretation Code Description Data [facility](s) Supporting Document(s) PHOSPHORUS 3.3 mg/dL (2.5-4.5) [facility] ID Date Data Source [id number] 04/29/2020 02:23:18 PM EDT [facility] Name Value Range Interpretation Code Description Data [facility](s) Supporting Document(s) MAGNESIUM 1.8 mg/dL (1.7-2.4) [facility] ID Date Data Source [id number] 04/29/2020 02:23:18 PM EDT [facility] Name Value Range Interpretation Code Description Data [facility](s) Supporting Document(s) SODIUM 144 mmol/L (136-145) [facility] POTASSIUM 3.8 mmol/L (3.6-5.2) [facility] CHLORIDE 111 mmol/L (100-108) [facility] CO2 25 mmol/L (22-31) [facility] ANION GAP 8 mmol/L (7-16) [facility] UREA NITROGEN 3 mg/dL (7-24) [facility] CREATININE 0.48 mg/dL (0.60-1.00) [facility] BUN/CREAT RATIO 6.3 RATIO (10.0-20.0) [facility] GLUCOSE 134 mg/dL (70-99) [facility] CALCIUM 6.9 mg/dL (8.4-10.2) [facility] GFR >60 ml/min/1.73m2 (>59) [facility] GFR ( AMER) >60 ml/min/1.73m2 (>59) [facility] GFR INTERPRETATION [facility] --NORMAL KIDNEY FUNCTION OR MILD DISEASE - GFR >OR= 60CHRONIC KIDNEY DISEASE - GFR 15 - 59RENAL FAILURE - GFR <15 Est. GFR calculation based on the MDRDstudy equation, which assumes a steadystate for creatinine. Est. GFR should notbe used for medication dosing. ID Date Data Source [id number] 04/29/2020 09:40:14 AM EDT [facility] Name Value Range Interpretation Code Description Data [facility](s) Supporting Document(s) WBC 5.5 10*3/uL (4.1-11.0) [facility] [place] RBC 2.96 10*6/uL (4.00-5.40) [facility] HGB 9.2 g/dL (12.0-16.0) [facility] HCT 28.2 % (36.0-47.0) [facility] MCV 95.1 fL (80.0-95.0) [facility] MCH 31.0 pg (27.0-32.0) [facility] MCHC 32.6 g/dL (32.0-36.0) [facility] RDW 16.1 % (10.5-14.5) [facility] PLT 106 10*3/uL (150-450) [facility] MPV 9.5 fL (7.1-10.7) [facility] ID Date Data Source [id number] 04/29/2020 09:04:20 AM EDT [facility] Name Value Range Interpretation Code Description Data [facility](s) Supporting Document(s) VANCOMYCIN TROUGH 16.3 ug/mL (10.0-20.0) [facility] ID Date Data Source [id number] 04/29/2020 09:04:20 AM EDT [facility] Name Value Range Interpretation Code Description Data [facility](s) Supporting Document(s) PHOSPHORUS 1.9 mg/dL (2.5-4.5) [facility] ID Date Data Source [id number] 04/29/2020 09:04:20 AM EDT [facility] Name Value Range Interpretation Code Description Data [facility] r[facility](s) Supporting Document(s) MAGNESIUM 2.0 mg/dL (1.7-2.4) [facility] ID Date Data Source [id number] 04/29/2020 09:04:20 AM EDT [facility] Name Value Range Interpretation Code Description Data [facility](s) Supporting Document(s) SODIUM 143 mmol/L (136-145) [facility] POTASSIUM 4.1 mmol/L (3.6-5.2) [facility] CHLORIDE 110 mmol/L (100-108) [facility] CO2 25 mmol/L (22-31) [facility] ANION GAP 8 mmol/L (7-16) [facility] UREA NITROGEN 3 mg/dL (7-24) [facility] CREATININE 0.52 mg/dL (0.60-1.00) [facility] BUN/CREAT RATIO 5.8 RATIO (10.0-20.0) [facility] GLUCOSE 122 mg/dL (70-99) [facility] CALCIUM 7.5 mg/dL (8.4-10.2) [facility] GFR >60 ml/min/1.73m2 (>59) [facility] GFR ( AMER) >60 ml/min/1.73m2 (>59) [facility] GFR INTERPRETATION [facility] --NORMAL KIDNEY FUNCTION OR MILD DISEASE - GFR >OR= 60CHRONIC KIDNEY DISEASE - GFR 15 - 59RENAL FAILURE - GFR <15 Est. GFR calculation based on the MDRDstudy equation, which assumes a steadystate for creatinine. Est. GFR should notbe used for medication dosing. ID Date Data Source [id number] 04/29/2020 03:20:10 AM EDT [facility] Name Value Range Interpretation Code Description Data [facility] r[facility](s) Supporting Document(s) MAGNESIUM 2.0 mg/dL (1.7-2.4) [facility] ID Date Data Source [id number] 04/29/2020 03:20:10 AM EDT [facility] Name Value Range Interpretation Code Description Data [facility] r[facility](s) Supporting Document(s) PHOSPHORUS 1.9 mg/dL (2.5-4.5) [facility] ID Date Data Source [id number] 04/29/2020 03:20:10 AM EDT [facility] Name Value Range Interpretation Code Description Data [facility] r[facility](s) Supporting Document(s) SODIUM 143 mmol/L (136-145) [facility] POTASSIUM 3.4 mmol/L (3.6-5.2) [facility] CHLORIDE 110 mmol/L (100-108) [facility] CO2 24 mmol/L (22-31) [facility] ANION GAP 9 mmol/L (7-16) [facility] UREA NITROGEN 3 mg/dL (7-24) [facility] CREATININE 0.51 mg/dL (0.60-1.00) [facility] BUN/CREAT RATIO 5.9 RATIO (10.0-20.0) [facility] GLUCOSE 119 mg/dL (70-99) H [facility] CALCIUM 7.1 mg/dL (8.4-10.2) [facility] TOTAL PROTEIN 5.2 g/dL (6.4-8.2) [facility] ALBUMIN 2.5 g/dL (3.2-4.5) [facility] GLOBULIN 2.7 g/dL (2.7-4.3) [facility] ALB/GLOB RATIO 0.9 RATIO [facility] ALKALINE PHOSPHATASE 104 U/L (45-117) [facility] BILIRUBIN,TOTAL 1.0 mg/dL (0.0-1.0) [facility] PLEASE NOTE:Total bilirubin results may be falselyelevated in patients taking Eltrombopag. AST (SGOT) 127 U/L (11-39) [facility] ALT (SGPT) 110 U/L (12-78) [facility] GFR >60 ml/min/1.73m2 (>59) [facility] GFR ( AMER) >60 ml/min/1.73m2 (>59) [facility] GFR INTERPRETATION [facility] --NORMAL KIDNEY FUNCTION OR MILD DISEASE - GFR >OR= 60CHRONIC KIDNEY DISEASE - GFR 15 - 59RENAL FAILURE - GFR <15 Est. GFR calculation based on the MDRDstudy equation, which assumes a steadystate for creatinine. Est. GFR should notbe used for medication dosing. ID Date Data Source [id number] 04/29/2020 03:17:55 AM EDT [facility] Name Value Range Interpretation Code Description Data [facility] e(s) Supporting Document(s) CALCIUM IONIZED 4.56 mg/dL (4.64-5.28) L [facility] IONIZED CALCIUM NORMALIZED TO PH 7.40 AN D 37 DEGREES C. ID Date Data Source [id number] 04/29/2020 02:41:12 AM EDT [facility] Name Value Range Interpretation Code Description Data [facility] e(s) Supporting Document(s) WBC 5.6 10*3/uL (4.1-11.0) [facility] [place] RBC 2.87 10*6/uL (4.00-5.40) [facility] HGB 8.9 g/dL (12.0-16.0) [facility] HCT 27.4 % (36.0-47.0) [facility] MCV 95.5 fL (80.0-95.0) [facility] MCH 31.1 pg (27.0-32.0) [facility] MCHC 32.6 g/dL (32.0-36.0) [facility] RDW 15.7 % (10.5-14.5) [facility] PLT 100 10*3/uL (150-450) [facility] MPV 9.9 fL (7.1-10.7) [facility] ID Date Data Source [id number] 04/28/2020 08:31:17 PM EDT [facility] Name Value Range Interpretation Code Description Data [facility] r[facility](s) Supporting Document(s) PHOSPHORUS 1.9 mg/dL (2.5-4.5) [facility] ID Date Data Source [id number] 04/28/2020 08:31:17 PM EDT [facility] Name Value Range Interpretation Code Description Data [facility] r[facility](s) Supporting Document(s) MAGNESIUM 2.1 mg/dL (1.7-2.4) [facility] ID Date Data Source [id number] 04/28/2020 08:31:17 PM EDT [facility] Name Value Range Interpretation Code Description Data [facility] r[facility](s) Supporting Document(s) SODIUM 143 mmol/L (136-145) [facility] POTASSIUM 3.8 mmol/L (3.6-5.2) [facility] CHLORIDE 111 mmol/L (100-108) H [facility] CO2 26 mmol/L (22-31) [facility] ANION GAP 6 mmol/L (7-16) L [facility] UREA NITROGEN 3 mg/dL (7-24) L [facility] CREATININE 0.54 mg/dL (0.60-1.00) L [facility] BUN/CREAT RATIO 5.6 RATIO (10.0-20.0) L [facility] GLUCOSE 130 mg/dL (70-99) H [facility] CALCIUM 7.1 mg/dL (8.4-10.2) [facility] GFR >60 ml/min/1.73m2 (>59) [facility] GFR ( AMER) >60 ml/min/1.73m2 (>59) [facility] GFR INTERPRETATION [facility] --NORMAL KIDNEY FUNCTION OR MILD DISEASE - GFR >OR= 60CHRONIC KIDNEY DISEASE - GFR 15 - 59RENAL FAILURE - GFR <15 Est. GFR calculation based on the MDRDstudy equation, which assumes a steadystate for creatinine. Est. GFR should notbe used for medication dosing. ID Date Data Source [id number] 04/28/2020 03:44:21 PM EDT [facility] Name Value Range Interpretation Code Description Data [facility] r[facility](s) Supporting Document(s) WBC 6.1 10*3/uL (4.1-11.0) [facility] [place] RBC 2.85 10*6/uL (4.00-5.40) L [facility] HGB 9.1 g/dL (12.0-16.0) [facility] HCT 27.3 % (36.0-47.0) [facility] MCV 95.7 fL (80.0-95.0) [facility] MCH 31.8 pg (27.0-32.0) [facility] MCHC 33.2 g/dL (32.0-36.0) [facility] RDW 15.8 % (10.5-14.5) [facility] PLT 91 10*3/uL (150-450) L [facility] MPV 9.7 fL (7.1-10.7) [facility] ID Date Data Source [id number] 04/28/2020 02:32:50 PM EDT [facility] Name Value Range Interpretation Code Description Data [facility] r[facility](s) Supporting Document(s) PHOSPHORUS 2.1 mg/dL (2.5-4.5) L [facility] ID Date Data Source [id number] 04/28/2020 02:32:50 PM EDT [facility] Name Value Range Interpretation Code Description Data [facility] r[facility](s) Supporting Document(s) SODIUM 142 mmol/L (136-145) [facility] POTASSIUM 4.0 mmol/L (3.6-5.2) [facility] CHLORIDE 110 mmol/L (100-108) [facility] CO2 25 mmol/L (22-31) [facility] ANION GAP 7 mmol/L (7-16) [facility] UREA NITROGEN 4 mg/dL (7-24) [facility] CREATININE 0.52 mg/dL (0.60-1.00) L [facility] BUN/CREAT RATIO 7.7 RATIO (10.0-20.0) L [facility] GLUCOSE 129 mg/dL (70-99) H [facility] CALCIUM 7.2 mg/dL (8.4-10.2) [facility] GFR >60 ml/min/1.73m2 (>59) [facility] GFR ( AMER) >60 ml/min/1.73m2 (>59) [facility] GFR INTERPRETATION [facility] --NORMAL KIDNEY FUNCTION OR MILD DISEASE - GFR >OR= 60CHRONIC KIDNEY DISEASE - GFR 15 - 59RENAL FAILURE - GFR <15 Est. GFR calculation based on the MDRDstudy equation, which assumes a steadystate for creatinine. Est. GFR should notbe used for medication dosing. ID Date Data Source [id number] 04/28/2020 02:32:50 PM EDT [facility] Name Value Range Interpretation Code Description Data [facility] r[facility](s) Supporting Document(s) MAGNESIUM 2.1 mg/dL (1.7-2.4) [facility] ID Date Data Source [id number] 04/28/2020 02:11:20 PM EDT [facility] Name Value Range Interpretation Code Description Data [facility] r[facility](s) Supporting Document(s) SOURCE [facility] FIO2 [facility] VENOUS PH 7.31 (7.33-7.43) [facility] PCO2 47 mm[Hg] (38-50) [facility] PO2 37 mm[Hg] (30-50) [facility] LAMAR BASE DEFICIT 3.5 mmol/L (0.0-2.0) [facility] HCO3 23.0 mmol/L (23-27) [facility] TOTAL CO2 24.4 mmol/L (24-28) [facility] BODY TEMPERATURE 98.6 [degF] [facility] ID Date Data Source [id number] 04/28/2020 02:41:12 AM EDT [facility] Name Value Range Interpretation Code Description Data [facility] r[facility](s) Supporting Document(s) MAGNESIUM 2.7 mg/dL (1.7-2.4) [facility] ID Date Data Source [id number] 04/28/2020 02:41:12 AM EDT [facility] Name Value Range Interpretation Code Description Data [facility] r[facility](s) Supporting Document(s) PHOSPHORUS 1.0 mg/dL (2.5-4.5) L [facility] ID Date Data Source [id number] 04/28/2020 02:41:12 AM EDT [facility] Name Value Range Interpretation Code Description Data [facility] r[facility](s) Supporting Document(s) SODIUM 142 mmol/L (136-145) [facility] POTASSIUM 3.6 mmol/L (3.6-5.2) [facility] CHLORIDE 110 mmol/L (100-108) [facility] CO2 24 mmol/L (22-31) [facility] ANION GAP 8 mmol/L (7-16) [facility] UREA NITROGEN 4 mg/dL (7-24) L [facility] CREATININE 0.58 mg/dL (0.60-1.00) L [facility] BUN/CREAT RATIO 6.9 RATIO (10.0-20.0) L [facility] GLUCOSE 128 mg/dL (70-99) H [facility] CALCIUM 7.2 mg/dL (8.4-10.2) L [facility] TOTAL PROTEIN 5.4 g/dL (6.4-8.2) L [facility] ALBUMIN 2.8 g/dL (3.2-4.5) L [facility] GLOBULIN 2.6 g/dL (2.7-4.3) [facility] ALB/GLOB RATIO 1.1 RATIO [facility] ALKALINE PHOSPHATASE 97 U/L (45-117) [facility] BILIRUBIN,TOTAL 1.2 mg/dL (0.0-1.0) [facility] PLEASE NOTE:Total bilirubin results may be falselyelevated in patients taking Eltrombopag. AST (SGOT) 139 U/L (11-39) [facility] ALT (SGPT) 105 U/L (12-78) H [facility] GFR >60 ml/min/1.73m2 (>59) [facility] GFR ( AMER) >60 ml/min/1.73m2 (>59) [facility] GFR INTERPRETATION [facility] --NORMAL KIDNEY FUNCTION OR MILD DISEASE - GFR >OR= 60CHRONIC KIDNEY DISEASE - GFR 15 - 59RENAL FAILURE - GFR <15 Est. GFR calculation based on the MDRDstudy equation, which assumes a steadystate for creatinine. Est. GFR should notbe used for medication dosing. ID Date Data Source [id number] 04/28/2020 02:39:52 AM EDT [facility] Name Value Range Interpretation Code Description Data [facility] r[facility](s) Supporting Document(s) CALCIUM IONIZED 4.72 mg/dL (4.64-5.28) [facility] IONIZED CALCIUM NORMALIZED TO PH 7.40 AN D 37 DEGREES C. ID Date Data Source [id number] 04/28/2020 02:12:48 AM EDT [facility] Name Value Range Interpretation Code Description Data [facility] rce(s) Supporting Document(s) WBC 5.5 10*3/uL (4.1-11.0) [facility] [place] RBC 2.98 10*6/uL (4.00-5.40) L [facility] HGB 9.2 g/dL (12.0-16.0) [facility] HCT 28.0 % (36.0-47.0) [facility] MCV 93.8 fL (80.0-95.0) [facility] MCH 30.8 pg (27.0-32.0) [facility] MCHC 32.9 g/dL (32.0-36.0) [facility] RDW 15.5 % (10.5-14.5) [facility] PLT 84 10*3/uL (150-450) L [facility] MPV 9.0 fL (7.1-10.7) [facility] ID Date Data Source [id number] 04/28/2020 08:50:00 AM EDT [facility] DATE OF EXAM: 04/28/2020CHEST RADIOGRAPH , SINGLE VIEW INDICATION: INCREASING O2 REQUIREMENTS TECHNIQUE: Upright AP Portable view of the chest. COMPARISON: 04/25/2020. FINDINGS: The chest wall and soft tissues are normal. Degenerative changes are seen throughout the spine. There is no evidence of pleural disease. There is increased patchy left perihilar and left basilar density. The heart and mediastinal contours are unremarkable. IMPRESSION: Increased left perihilar and left basilar density could represent developing pneumonia. Continued follow-up is recommended. Professional interpretation performed at [facility] .End of diagnostic report for accession: [id number] Interpreted: Park Fraga DOTranscribed: 04/28/2020 08:49 AMSigned: 04/28/2020 08:50 AM Park Fraga DO [facility] # [id number] [facility] # [id number] Name Value Range Interpretation Code Description Data [facility] rce(s) Supporting Document(s) ID Date Data Source [id number] 04/27/2020 05:15:50 PM EDT [facility] Name Value Range Interpretation Code Description Data [facility] rce(s) Supporting Document(s) SODIUM 143 mmol/L (136-145) [facility] POTASSIUM 4.6 mmol/L (3.6-5.2) [facility] CHLORIDE 111 mmol/L (100-108) [facility] CO2 22 mmol/L (22-31) [facility] ANION GAP 10 mmol/L (7-16) [facility] UREA NITROGEN 3 mg/dL (7-24) L [facility] CREATININE 0.61 mg/dL (0.60-1.00) [facility] BUN/CREAT RATIO 4.9 RATIO (10.0-20.0) L [facility] GLUCOSE 118 mg/dL (70-99) [facility] CALCIUM 6.7 mg/dL (8.4-10.2) [facility] GFR >60 ml/min/1.73m2 (>59) [facility] GFR ( AMER) >60 ml/min/1.73m2 (>59) [facility] GFR INTERPRETATION [facility] --NORMAL KIDNEY FUNCTION OR MILD DISEASE - GFR >OR= 60CHRONIC KIDNEY DISEASE - GFR 15 - 59RENAL FAILURE - GFR <15 Est. GFR calculation based on the MDRDstudy equation, which assumes a steadystate for creatinine. Est. GFR should notbe used for medication dosing. ID Date Data Source [id number] 04/27/2020 03:40:13 PM EDT [facility] Name Value Range Interpretation Code Description Data [facility] rce(s) Supporting Document(s) CALCIUM IONIZED 4.56 mg/dL (4.64-5.28) L [facility] IONIZED CALCIUM NORMALIZED TO PH 7.40 AN D 37 DEGREES C. ID Date Data Source [id number] 04/27/2020 03:23:53 PM EDT [facility] Name Value Range Interpretation Code Description Data [facility] rce(s) Supporting Document(s) PHOSPHORUS 3.3 mg/dL (2.5-4.5) [facility] ID Date Data Source [id number] 04/27/2020 03:23:53 PM EDT [facility] Name Value Range Interpretation Code Description Data [facility] rce(s) Supporting Document(s) MAGNESIUM 1.4 mg/dL (1.7-2.4) L [facility] ID Date Data Source [id number] 04/27/2020 01:50:36 AM EDT [facility] Name Value Range Interpretation Code Description Data [facility] rce(s) Supporting Document(s) CALCIUM IONIZED 4.40 mg/dL (4.64-5.28) L [facility] IONIZED CALCIUM NORMALIZED TO PH 7.40 AN D 37 DEGREES C. ID Date Data Source [id number] 04/27/2020 01:48:57 AM EDT [facility] Name Value Range Interpretation Code Description Data [facility] rce(s) Supporting Document(s) PHOSPHORUS 1.0 mg/dL (2.5-4.5) L [facility] ID Date Data Source [id number] 04/27/2020 01:48:57 AM EDT [facility] Name Value Range Interpretation Code Description Data [facility]va rce(s) Supporting Document(s) MAGNESIUM 1.6 mg/dL (1.7-2.4) L [facility] ID Date Data Source [id number] 04/27/2020 01:48:56 AM EDT [facility] Name Value Range Interpretation Code Description Data Apurva rce(s) Supporting Document(s) SODIUM 141 mmol/L (136-145) [facility] POTASSIUM 2.7 mmol/L (3.6-5.2) LL [facility] RESULT(S) CALLED TO AND READ BACK CEAS[facility] 0147 04/27/20 [place] [id number] CHLORIDE 107 mmol/L (100-108) [facility] CO2 20 mmol/L (22-31) L [facility] ANION GAP 14 mmol/L (7-16) [facility] UREA NITROGEN 5 mg/dL (7-24) L [facility] CREATININE 0.74 mg/dL (0.60-1.00) [facility] BUN/CREAT RATIO 6.8 RATIO (10.0-20.0) L [facility] GLUCOSE 128 mg/dL (70-99) H [facility] CALCIUM 7.0 mg/dL (8.4-10.2) L [facility] TOTAL PROTEIN 5.7 g/dL (6.4-8.2) L [facility] ALBUMIN 3.0 g/dL (3.2-4.5) L [facility] GLOBULIN 2.7 g/dL (2.7-4.3) [facility] ALB/GLOB RATIO 1.1 RATIO [facility] ALKALINE PHOSPHATASE 99 U/L (45-117) [facility] BILIRUBIN,TOTAL 1.7 mg/dL (0.0-1.0) H [facility] PLEASE NOTE:Total bilirubin results may be falselyelevated in patients taking Eltrombopag. AST (SGOT) 126 U/L (11-39) H [facility] ALT (SGPT) 101 U/L (12-78) H [facility] GFR >60 ml/min/1.73m2 (>59) [facility] GFR ( AMER) >60 ml/min/1.73m2 (>59) [facility] GFR INTERPRETATION [facility] --NORMAL KIDNEY FUNCTION OR MILD DISEASE - GFR >OR= 60CHRONIC KIDNEY DISEASE - GFR 15 - 59RENAL FAILURE - GFR <15 Est. GFR calculation based on the MDRDstudy equation, which assumes a steadystate for creatinine. Est. GFR should notbe used for medication dosing. ID Date Data Source [id number] 04/27/2020 01:33:55 AM EDT [facility] Name Value Range Interpretation Code Description Data Apurva rce(s) Supporting Document(s) PT 11.4 s (9.2-11.9) [facility] INR 1.09 [facility] SUGGESTED THERAPEUTIC RANGES USING INR F ORSTABILIZED ANTICOAGULATED PATIENTS:STANDARD DOSE THERAPY INR 2.0-3.0 DVT, PE, PREVENT DVT OR EMBOLISMHIGH DOSE THERAPY INR 2.5-3.5 PREVENT EMBOLISM FROM MECHANICAL HEART VALVE ID Date Data Source [id number] 04/27/2020 01:05:49 AM EDT [facility] Name Value Range Interpretation Code Description Data Apurva rce(s) Supporting Document(s) WBC 6.3 10*3/uL (4.1-11.0) [facility] RBC 2.72 10*6/uL (4.00-5.40) L [facility] HGB 8.5 g/dL (12.0-16.0) L [facility] HCT 25.4 % (36.0-47.0) L [facility] MCV 93.4 fL (80.0-95.0) [facility] MCH 31.1 pg (27.0-32.0) [facility] MCHC 33.2 g/dL (32.0-36.0) [facility] RDW 15.5 % (10.5-14.5) H [facility] PLT 98 10*3/uL (150-450) L [facility] MPV 8.7 fL (7.1-10.7) [facility] ID Date Data Source [id number] 04/26/2020 08:12:36 PM EDT [facility] Name Value Range Interpretation Code Description Data Apurva rce(s) Supporting Document(s) CHOLESTEROL @ 232 mg/dL (0-200) H [facility] TRIGLYCERIDE @ 196 mg/dL (30-200) [facility] HDL CHOLESTEROL @ 52 mg/dL (>40) [facility] PER NCEP ATP III GUIDELINES:RESULTS LOWE R THAN 40 MG/DL ARE SUGGESTIVEOF INCREASED RISK FOR CORONARY ARTERYDISEASE. RESULTS > OR = TO 60 MG/DL ARECONSIDERED A NEGATIVE RISK FACTOR. CHOL/HDL RATIO 4.5 RATIO [facility] INTERPRETATION OF CHOL-HDL RATIO CHD RISK FEMALE MALEVERY HIGH >8.3 >14.3HIGH 5.6- 8.3 6.7- 14.3AVERAGE 3.7- 5.6 4.0- 6.7BELOW AVERAGE 2.5- 3.7 2.7- 4.0PROTECTED <2.5 <2.7 LDL CHOL (CALC) 141 mg/dL (<130) [facility] PER NCEP ATP III GUIDELINES: OPTIMAL < 100 NEAR OPTIMAL 100 - 129BORDERLINE HIGH 130 - 159 HIGH 160 - 189 VERY HIGH > 189 ID Date Data Source [id number] 04/26/2020 06:19:55 PM EDT [facility] Name Value Range Interpretation Code Description Data Apurva rce(s) Supporting Document(s) WBC 6.6 10*3/uL (4.1-11.0) [facility] [place] RBC 2.89 10*6/uL (4.00-5.40) [facility] HGB 8.9 g/dL (12.0-16.0) [facility] HCT 27.3 % (36.0-47.0) [facility] MCV 94.6 fL (80.0-95.0) [facility] MCH 30.9 pg (27.0-32.0) [facility] MCHC 32.7 g/dL (32.0-36.0) [facility] RDW 15.5 % (10.5-14.5) [facility] PLT 113 10*3/uL (150-450) [facility] MPV 8.4 fL (7.1-10.7) [facility] ID Date Data Source [id number] 04/26/2020 03:42:00 PM EDT [facility] DATE OF EXAM: 04/26/2020LIVER ELASTOGRAP HY INDICATION: Fatty liver COMPARISON: 04/26/2020 TECHNIQUE: Multiple real-time sonographic images were obtained. Ultrasound Shear Wave Elastography was performed. FINDINGS: The liver is increased in echogenicity. Is not possible to obtain any adequate shear wave samples to patient motion and inability to suspend respirations. IMPRESSION: Echogenic liver. Liver fibrosis staging was not able to be determined Liver Fibrosis Staging, METAVIR Score, [employer] Shear Wave F0 - F1, Normal - Mild , < 7.1 kPa F2, Mild , > or = 7.1 kPa F3, Moderate , > or = 9.5 kPa F4, Severe, > or = 11.6kPa Professional interpretation performed by [facility] at [facility] End of diagnostic report for accession: [id number] Interpreted: Issa Perez MDTranscribed: 04/26/2020 03:41 PMSigned: 04/26/2020 03:42 PM Issa Perez MD [facility] # [id number] [facility] # [id number] Name Value Range Interpretation Code Description Data Apurva rce(s) Supporting Document(s) ID Date Data Source [id number] 04/26/2020 02:58:00 PM EDT [facility] DATE OF EXAM: 04/26/2020RIGHT UPPER QUAD RANT ULTRASOUND INDICATION: Abnormal liver function tests COMPARISON: None TECHNIQUE: Multiple longitudinal and transverse sonographic images of the upper abdomen were obtained. Examination is technically limited due to difficulty with patient compliance during the examination. FINDINGS: The liver is increased in echogenicity and attenuation. The hepatic echotexture is heterogeneous and there is scalloping the hepatic surface. No focal hepatic lesions. There is a appears to be a tiny gallbladder polyp. No stones or sludge. There is no evidence of dilatation of the intrahepatic or extrahepatic bile ducts. The common duct measures 2.6 mm. The pancreatic head and body are visualized and are within normal limits with respect to size and echogenicity. The pancreatic tail is not well visualized. The right kidney is visualized and there is no evidence of obstructive uropathy. No free fluid is identified within the right upper quadrant of the abdomen. IMPRESSION: Echogenic heterogeneous liver with scalloping the hepatic surface. No focal hepatic lesions. No biliary ductal dilatation. There appears to be a tiny gallbladder polyp. The study is technically limited due to difficulty with patient cooperation during exam Professional interpretation performed by [facility] Medical [facility] at [facility] End of diagnostic report for accession: [id number] Interpreted: Issa Perez MDTranscribed: 04/26/2020 02:56 PMSigned: 04/26/2020 02:58 PM Issa Perez MD [facility] # [id number] [facility] # [id number] Name Value Range Interpretation Code Description Data Apurva rce(s) Supporting Document(s) ID Date Data Source [id number] 04/26/2020 11:26:36 AM EDT [facility] Name Value Range Interpretation Code Description Data Apurva rce(s) Supporting Document(s) WBC 4.9 10*3/uL (4.1-11.0) [facility] [place] RBC 2.50 10*6/uL (4.00-5.40) [facility] HGB 7.9 g/dL (12.0-16.0) [facility] HCT 24.1 % (36.0-47.0) [facility] MCV 96.5 fL (80.0-95.0) [facility] MCH 31.6 pg (27.0-32.0) [facility] MCHC 32.7 g/dL (32.0-36.0) [facility] RDW 15.8 % (10.5-14.5) [facility] PLT 103 10*3/uL (150-450) [facility] MPV 9.0 fL (7.1-10.7) [facility] ID Date Data Source [id number] 04/26/2020 10:32:10 AM EDT [facility] Name Value Range Interpretation Code Description Data Apurva rce(s) Supporting Document(s) LIPASE 915 U/L (65-230) [facility] ID Date Data Source [id number] 04/26/2020 05:33:12 AM EDT [facility] Name Value Range Interpretation Code Description Data Apurva rce(s) Supporting Document(s) URINE WBC (0-5) [facility] URINE RBC (0-2) [facility] EPITHELIAL CELLS 1+ [HPF] [facility] BACTERIA 4+ [HPF] [facility] HYALINE CASTS [facility] ID Date Data Source [id number] 04/26/2020 05:24:51 AM EDT [facility] Name Value Range Interpretation Code Description Data Apurva rce(s) Supporting Document(s) PHOSPHORUS 1.7 mg/dL (2.5-4.5) L [facility] ID Data Source [id number] 04/26/2020 05:24:51 AM EDT [facility] Name Value Range Interpretation Code Description Data Apurva rce(s) Supporting Document(s) MAGNESIUM 1.9 mg/dL (1.7-2.4) [facility] ID Data Source [id number] 04/26/2020 05:11:39 AM EDT [facility] Name Value Range Interpretation Code Description Data Apurva rce(s) Supporting Document(s) COLOR [facility] APPEARANCE [facility] SPEC GRAV URINE 1.033 (1.003-1.030) [facility] PH URINE 5.5 (5.0-7.5) [facility] LEUK ESTERASE (NEG) [facility] NITRITE URINE (NEG) [facility] PROTEIN URINE 1+ (NEG) A [facility] GLUCOSE URINE (NEG) [facility] KETONE URINE 3+ (NEG) [facility] UROBILINOGEN 0.2 mg/dL (0-1.0) [facility] BILIRUBIN URINE (NEG) [facility] BLOOD/HGB URINE 1+ (NEG) A [facility] ID Date Data Source [id number] 04/26/2020 05:03:14 AM EDT [facility] Name Value Range Interpretation Code Description Data Apurva rce(s) Supporting Document(s) LACTIC ACID 0.9 mmol/L (0.4-2.0) [facility] [place] ID Date Data Source [id number] 04/26/2020 04:56:53 AM EDT [facility] Name Value Range Interpretation Code Description Data Apurva rce(s) Supporting Document(s) SOURCE [facility] FIO2 [facility] VENOUS PH 7.11 (7.33-7.43) LL [facility] RESULT(S) CALLED TO AND READ BACK KIMBERLY Ritter AT [facility] ON 04/26/2020 AT 0455 [place] [id number] VENOUS PCO2 22 mm[Hg] (38-50) L [facility] VENOUS PO2 97 mm[Hg] (30-50) [facility] VENOUS O2 SAT 95.6 % (60-85) [facility] LAMAR BASE DEFICIT 21.0 mmol/L (0.0-2.0) [facility] VENOUS HCO3 6.7 mmol/L (23-27) [facility] [place] VENOUS TOTAL CO2 7.4 mmol/L (24-28) L [facility] BODY TEMPERATURE 98.6 [degF] [facility] ID Date Data Source [id number] 04/25/2020 10:58:00 PM EDT [facility] DATE OF EXAM: 04/25/2020CHEST CLINICAL S TATEMENT: Alcohol withdrawal. TECHNIQUE: Portable AP view of the chest. COMPARISON: None. FINDINGS: The lungs are clear. The cardiomediastinal structures are within normal limits. The visualized osseous structures appear unremarkable. IMPRESSION: No evidence of acute cardiopulmonary pathology. Professional interpretation performed at [facility] .End of diagnostic report for accession: [id number] Interpreted: Jeyson Potts MDTranscribed: 04/25/2020 10:58 PMSigned: 04/25/2020 10:58 PM Jeyson Potts MD N: [id number] [facility] # [id number] BILL # [id number] Name Value Range Interpretation Code Description Data Apurva rce(s) Supporting Document(s) ID Date Data Source [id number] 04/25/2020 10:39:52 PM EDT [facility] Name Value Range Interpretation Code Description Data Apurva rce(s) Supporting Document(s) MUSE EKG PDF encoded [facility] kanwaltal LFQGXn0sEdVTHoHxm5PaCvVvOHWmRG4nbxv5Z6E6pSGpY0TmlUKxp5eiO6DnP7QvCLPmHCJRXR3XlMHo jb2 [file] [id number]+8+JO0m2Jw235LMi0Gtyfz37A e4fc2NiyKb2uj7scN9vubG31gGyEiWVybL6DiHO8ixu47RFllqq8CzSBqp6W147JXQYtg+UThmjVqSlL Ple2Hgs9ukC329aO4swxXEEU2NvUC4+7C1Ws9qilatb7E0Lu0lRQpZ7AgkuKsgaoKkCoiC561e7AJ3FT 7Z+gmp442jji9FvOMIttVzmOqe9ALm5AmuJUjl0waW qajVcbSpVsfZplrDQTsDI3+sp9d1lHoAQYfltjL28h2zR/44kZ6iczy8hvwxj2DjmleA31v17vZfX5GH MgfjNTooyTnU8Ubp+ppTC9jY5QfF2s1b03S501YLtCsL78etOuL0t8aUyKchAfkyQhig8WN6Lu9ur81E hwQVGw2jk9Pgiz995xBFPpApdywiGf2PgVgJWiX4KE rSAwEt0pzc8WSR+2KzfzzSweIbxXZ/zNorjS/ncR5cqgv/oHzSpltejXk4BmuEuLbgQ27uKsJBecOTpa GWdktYS+g4or23I8jfrAjT0+W7GRbfgfj8Pn64cTYnlA6lmvGyppN7Jlz0ZDMtXYqmNnlBghgndYpLPf EqwynQkkL8WfJd7Gm+lg5vNwSDtNWFqI3RgQTu+6Pq Z11819h+8UfinKYO1GVZdzakGTCxND47uYcTHh1mo3JsoTgq1DnAWwNjOfRhJwmSadSwqwYX5I6Wvbu1 FjqICWXP6ztu0yxVSdFdQBT8L0CcLSUCzNUkVl+mBd/tgeHcQLXgu6+VPUpedXZ4B5Mj7Z8HegkMNh3n 436A/cwLh0uBmHigbz5AxZ6djqmC/c/itOkKTOuAFZ gFOI7sRtYNmkZ0RopWnGdJjssxcKtRIqL2CB4drzCBuYVCih7VH48k+gy+L81afryI8sgiRy8qs9CW2q 3UUmx14Dh20kz0W4XVw95uBDTcO3VkAQ4TjC65oBvlHkg0+kpP/ahzPrK+vCAyyhCS4OVWlG6ocY/Tabby 4kVgu++8vH2lvsYNBcnvIL5kE8oG7ahKrmbGTjbR0T kNSngS0en5Gmb9knUFNYr7tZciCv4p8nFUhKxoikJseG4hvD68rn5qG6CY7i8TlOhIHk5NhA8fxgBkCl +2sMn0aHX5WmDkjoR0NNek2a69GsAQd46hzGOt33jw/R4pGdDBBbP27HlHFIAs+bc0E1oIT/mu7D3o2e Vgm12gh3SGL9RXQGOXEPOaxpmfusPX1XdvruVnOIR6 Yt+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/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/g4Naqx8xOC/95FwfKWePz/zdy2QLuK1Oc/Q5jnE5aDW+KTtfRRXKiz3uMy+h43jzt L41mpc1JDaFF4q+jTUVv9ooRWuN0YM7rv5dd0/hSq+45PI1yyjBbSd1EbmjIdqp292tCVM4l46hCox4X 1B+vNf0tx3tfxlrZqxILAgw6AKpUAhSw8jgFdf6ULz LXSr1UH0Ws0Vj2UxYlNTgjzDdJ0farU3AXzHaUvpbvdmHz7qZ+E3WhkqqlzZtvdOh/pRRguhBcy7XP4u OFF0vpqL6uaoBMG9llOI8lt3NHvtiwoXhS7mcxlGxQRpjli3akxAaJlnEroHwUigh3qiZwBCWigZ0C03 cv+eMmmQXuCwofVfSA0OF4Mtvd7jSFWR4cBtL1vBG3 UOTnfXgIcKQrKEvwghxpQHul7ett1qgs0kl0d8jTk2jf6Ng6ztYYu0Fyn6MOg5xDCDsSmfZ7j23qm2hv pO0bqKKjgb9NfnwjQOZ//uCsmxXmkNJydra+GnwjRs8Nh1ABqtHbbn1LunhamoLoXpCtr2QxD3ialP+N P4T7D5wJr78evBFh/CP5sh1q7hS3hvJdqk4Ffb2SL4 B9iBcoU1azYBafHZubQ0dV3H7wq4z5pZpLpeIBq8dx8dOWJOl3tKwE6r+N//t/+SL2/6sUPPe8fN02j9 MgIpLX3SC5cGAvHLkBr2MFJwQkTsYXxmyAjLUYQkn9CJce/F4H5w6P6hdWFoGlOPNUCZENyTyOwD36k2 Ju2jHaqXuBHrGEvXXoZDQvCjeVWdN+ngEYCMUigQqU TaO2F5pZKXFWXnRWcbL36dPazPVzPFjU7NuOMps1KIPAm8qzjX4rOXLSYuxYF70GtJcNsAJpHIkvw87N VIB4+S4dt22C7nCjaZRBDM2hLAIzj4NSnJc0JgdLLRO9r5d8wGNpKZ5evFsj2ZkEQFGSbEhEkmH0JeWQ pgUgeTOpjUwaQdLNrBKihnVdRgVdRtSQdNiHTQhDQi [file] 1y9RpqM/QN+w45o50Lj/uDA/uDQ/cDBs4X8/7g 1fOWcek5Z3l3d1q/9Lz1D1pPbHd9zf2jJ+/8XIHdu/NzBXbtbq/l4U+kwtM9rcnxlA/ksLDrvfrK8K/8 doqvh1U9MhXz3iX/WfvAe1h5dbQe/KpXxfmVV+fRfsLJvdBhlUuK435wj+O5qmZQ4HBwCo+ceuNX/n/j V3WimjeQHu9jdMs8eu6CzoNGnxwfoEuwSh1j7dcGt3 R+RUo7Ar8U/Ejcadf4RC4uwv/gB9Mb4Zhfm8sUEa+3yXn6wnVd7+ei/Ri/8vZj/TrxmmXdlZB8Tav82B Ym9aZa0HO7Om5EklRmtT/Q5/kcuyLne/Q1Po6PL/QL/9+IZyP+A/2B/kJ/N56L1tddIxG7jmnE4k6kp0 U3Z8bwHS2rWnJG/XO7Tkhlgg6H+FcyB3NrlKAlv6uR Nd/vrAf6C/5Paj8vOE4E+scL555oTW6OmoFa79ZR+kti0Gkt8UK4Gu0T5Yn5Fn5/dr3+PnX+KsLQH/z/ GP58foK4/czF0iplB5KL1E9xD7c3zi/fpaa5tdx8+M0Ls+n3uyc82QI2Vb8MfvU/oF/Q5/un3Op3WVGz Afu0cl9M2Evvu4z3wa8qZ/ambo3A8Q6K2T4Z5T/O0a Hv0Of+0Im5abGHA1VB+hT2io1Gr0X//B6cA+XNs5vr9bMlCUwcWc6f5AeqX/JD1vO20Vq4/TvFryIM/c z8LNlsenhVoh6tkP7z/OGzcd1gspvut8jaEQ1bmm8sqfsX+bmMObtkO0kLNJ0lW0Br7c6m+ZJRm0kA9/ xVGC54nM+PH86V+5Yg1pwLHWg0CQnRxkP/EI/W65RW 9hxQoj6Od+n6cvevyvovmiA9z8UqmsmAivMPo6yx/zvXJ+fO/bKJ/cG5J+LJ/d+0U8KbZWxLp4H/Wf87 vqQTcs41vp0gnizroBnl+RH46odz0kQlF06+Wvxf76B5aaXC6Mvs95ihy5/Idd0qBzls10oT024poajZ asty8ha5S7+b8/c6Ra4kf5bp9Ij4SOay2xlDen6xgV Ox+o/xSVuftOtkezUPG8+0ejZ+xAUoozpWcwkuFkg2t60e+X0rYpuSr4O2Yyq4w6TuBl5QOs6y5dUV1f il/JNDd37d++OBzcLGJy3/dn/Y48PN7liqa7o0yX9wqRGslks6szDtc/LrXnn34JoobzXVS+vdn1Koh/ Wrsp6vYh+yS3qhkA+txw7FY+uxV/HkftkquX+0Sq5v IZinyEzxo6dw/IjXf3wK+M96qM3D/EZYc4LnYGrpxdyIC7Qz3I/Wf740FBB93Rlh+jY2ki6spczYZ/xK 52q0suFI+or/f9zpFK9nDoqdgwtfgWXRO/nJ86xbsFir38wjOEzo2L90X+I/3AW82FU/+f0uzC5cPA9C raCsvNk20Cg+jnR5A8c7sk+whhFQ3qXrFP0DxgU/od /QH+gP9Nl/V8/zsWvk/LT7XcG5rmhm2QlFCFN0BaasMvma71EJ3Hb7L/c7j2JO5k15wf+ukXxyjeSTC/ xqjVxvX+TARevs0Yvwm3IZNddPkjokax/QN+ukx5vToP7mCCb+u9czwXfPNAGKo0sj1X/oF/Qb+g39gf 5Dy9ZH38Il2Tmnrn1AMS1YEnnd/t8QT/KrhfWrtVDe bad4czPSj+X3/cqq30T9D8e0XjHZ+xW/TfhCiHhS4d/UtrF+tXC+wPx7tdw7i8lp12/Bz1lq3OXdko4O lDQ91ew559hR+572Ieml1VUu37qLDruRTmeQ4Xbbt0avyq7FC/T/PH+3vg6CdjU11TR+0vl29a+T63Xr YHw+qM5otJhCfKQ+hPakIn1mSrxTUywcbZ86bY4O6K 7j+H8W/b8cw6sqXqrGkO5eZije93k967J7iSNteol6vs2b3tvnHprw1UZja3x1089ryy8ttNp6C4s948 v3e9F/70L8C+gj2IhZo6N/0F/ok1/ofg06hsX8im2Cr+vPu+R+an83h9GYto/h5a4x2aj7l/Ofhbuy2w ah2g2bqX511ubTbe/lBf7q36io/NWVPs/dmKXoK98t 39g1+eTW+cowhF8gyWy8lc5K+uzW+jqqyB1O6Bk/tXX+kgdu06XBu0vQQeGJ0brQaxjd/Qns5pkuz8D5 ytc5t/NynJ18ZkefqAM4QHGv1KRegSaSayK0otO7+0nXWylrV98F9Tzpjr5w7Lyi5Z12qdclHj62Pmt7 9H58hBgJ2l5G61xghUj/8jwbv/KyGL/yMhq/8npo4s 8ezvrU+avqYat/o2d3n9I7niYWKgv4Cv0jQh3+c78C8kg/tAwn63evVvb/5eEB/YB+ZvvR+Su1K52/2h 7G2pzofU5dk2Iy0jnM1sgF8Tw4BJ+/tX6l/sJ4xvfFK9Gf6RicT/Qd+c40jG295Z+1fqV+PXK/bI+cj/ ZY0G/oN/QH+gP9hT6/j/bM/d89C/QV+wp1f84Sm/FK /OjlQObnjiNO5Kv4V/GgvOJXqh/xK9Wb+FWEob/B25LpGH+8wt72RMUy7ErsE/Qd+z76iV6nc93sI/QL +hV9tr5jHCkmVqjPrspX9k9itaB1j6dd7v1c91E8B9w2Gm9T8h0Lg1B+0nxVqf5K6tXPi5/oN/QH+gP9 yS3732J/HvTfg/570H8P+u9B/j62ldMwtZ+0T94/2m dAP3M+PTPnU+0FRwu5qAsB9+850B/oL/Z5xrxiB+VB/Yn8bce5iNPtN7+u/+D56g2f2gPiy/x82kgVoZ W+EOQ6qyuiOI5Jt5O+PcLQb+jzvOjW+Shayan+ArhuerU71k7q6kFAOipVmJDbiTa102EdsJknpVaX/Qd8V c0x6xnvCrM88dWsv/jPQBLbEjapaXf3w1/LNZg6s96 z0H8F+neN8+zyzPojZI9Ge9HscD26Un6Cy1cJk4z2Ko9os+XA12Mln5eg744FX9fd/DM/2z8f0N/oD/Q X+jlyJtAExbfb8xc8a8bta/QN+cw4N05z6Nv/q0bl3yq42v7z2tB+evr8bkahfb8g6lomui6a0N3lvWl N9z6Vy95E0frLiqsjHfgN96O9hdV2y5JSm+yvnbEr9 ROjF+J+q8bC7cpDzliHKcvIX/Sudlj/EpnZc/Hr+au8avT4r2Y9HTS4Ys9u3I3/832i32cY845gc9sUT oC73ibZsyr2IrIDV7GGSruYwizs5uczruFXV5rveuXI7i8WnOE3t00oo71hWCnbiGwu2mvOjwrr757em lbb2uwAoIy8pjl1+9c4vPh3V/0B/kWkV2DYefmDzAZ d+O43im37dmrrC4b/CrCHf/P+zjH+NULQz+oh0Ai5Rs0E/dRoYQ7B+VrLD6KaQoMhmn2QluWohz5bpyp Z6G8C+VdGK/XCMdL7V/bX5GX6J+n5a9uE2dI5fBK3Uv/qZxPG5qfeL0f762U8KoSAcxyfzBV+KQAI70z /N/6/lZM71Rv2K/oJ/QL+kS6ue6Zt/kdSgfb5ZFf4V mwxG2p04cnU++Pxq/0rX2MX+kb8xi/zkBW5c0/j/5v37/c69zh4V55jR/pe/YYv/Rm0pmYAMK0/2r80f krD2/8f+P/B/qD/25fo2nb7eg4MN/S9/rsdoIt6KW80sVgj9S20Rb8WbpW+AfSnVmuq/TcwKLTCk8S0+ MD1E6i13w/3NwvO/ckbzF+9nHUi0b+56q1HJ0sr0X7 cMWvivStIPzazxW/ijD0A/oB/YR+Qr+xI9Na6EgtH20R6tiLt6920V+MR/xK+Re/HiuNT3iPiM+pDm/N 3icfowimgc7nlz69Az86IrrnhcWn2X0rjkQ0r7yhT0U0A9+/Iymx3RBraPR/wez3JHBwpsk1xp8Gmcmf oG/Qd+jBLt5onmgj14cuS5nY1c77h8J9sujWfrte+f NtG/rkz7fh/vckg8nr58FugQ/hhp1kApip7FC/hayp5jTZ1+1WXwy7t8mh4t+u9Hn/9/WZhJ5E3e8eTg /FB6JDsg1ERlZqvEMxE8/yMPT5/Xt7nn++I88/35Hf+7qbkc4szX45ot1rbizre2t/9jdalG1fejGuke lib5gbP9J5nE0S1TVm24tSdw/ncxtT4kq50xh5J0PH vVh7tc8W7vcsZ/Hea/tmjw8Jr6U0tFszo7JlOXHH1g5iRsa4L1+oZOJs8M/18lTEBtp74w5eO0EtN/Hn eYZr/CryYOcZVD/Pt8kOEtjTpiG/OAIxilsX969g+NWdeV/yzrzffVd+71+fq808977hvr2ceT1/tX6l /K+5j2YId40VK4Jq4Q/oF/QL+o88zi1Kx4U/yGful9 1n4tDion6NJ/sMF+toIl1u6z9n40H63So4N/oJ/YR+Qb+n18aN0zSJqX0881P+L/F7j7LG0pt2Q5+b3Z Xivy1GxQ/Ki/nV06C8C+O4TQ7FnF/Ke1Deg/CpbIej9LRyv/t78x9eXCs/B+/35v2Ue/N+yr0V+lx/vj rq7x2p63WZ63wzMzq/96/2BzVm+gx4tYi2E/oF/WELSH+ [file] p9+9xev7AY9MgzVv+83BrFE53X13rAL8R+Pj1p9S6xrkc/Gn8Qc4O9rT65u+Ef4Zf+long term/nvLm5Wq9Ai +L22Btnf/Cl+/dQ/gh/BD+FL70L+ppqzumf6g+db6ihVisDd517EdJyL+G4a0Du5ZpygRhdhF/Txd+2U +uU/hE91m4BmBdEJm3e+uU/nmdsudfp+731yl7/nXK nn+d0seuU/jS7ijvTfmzbGE+Cd+FX/p3ZMjJi/DJyxO1TI9SG0Qequp+eaMcdy/Y8B+8ZXl+y/vUeX9L fIaN+EcXSrgY641Mr4HnyxpOrvS8w8o5HEma+QEbpnt9y705V2hB/++G/2CuJxv+whyRb1EV/xLZsE0s 3A+yzi31b+Xa5br87g0txYdGwiu/7ve3l7/C9cCrdC /C7/L8EH5+b3EJ3JM/li39vcg0QqJ+xm4rduN/3l7zd+N+JXVGaz7C675IztD54oR/eRSvGnsduTpL2P /6fqOlwm375X8y5a1Fz3U//fPq2B7nZ118/wUSMa25l468ABK/+8NX3Vj/Z8/NJVN64rio+Sh0o2s82B a+bhBf9SrCZ5Q13pm4q/vu3cs+do+639+a3FZ48V8y g3Y9vq4KYkRAr/JinO5sDT7xgtFR9rIsThyvtocQ2r+wv3KWa/wMGc+j/V80zNoEuA9m+Qj/FD/qvntH gN19jU15Vp/NWVoj1Xe9lsv8Dp0I0ki81YfvqZRt0QO+quqrG5g5N+2/O2r/3WLfvmML/uje2n1f/9At +ZiRY7Taax4KdqHfmewruG6JS+5ZeHLPIc+PWg8FX+ 0ZUv8U/pR66ry/Z+HnLfeDG/zyaTW1X+nbyy6C0OFkkt7dL30x8Y7n0XI+QZN8ne3dB0+Uef1UwWlZs/ zZ94I+cuQ9TfI6Pe+2B79IiyBkbZn75osp8/eq+6Od+Drill Sharpener+Q59Kyb6sruR48Vx+De47qngYj47P/EVzv S40ZD5kPvpJ/bt2aXYRXClwwX+ZtjOYqpi4jUuy/CH 8EP46W+FttpYrwzl+NLSASm304l++Jh3ia+hI2uDk5Ws3ejFtrhcJwoLf/v39wuVs/iK9Se+wd8nP60f +kuYs5LLpC/tM4I9Rz/hLm+fui/bp/zp9oE/CyxgZ2jCsodUmj/gR7xP+Wts+C3mqjeu9R+DvevBwq6K cqJDyjhuWkVc6LM+D02iKJnLSn8M70SF/9xdll55mY f5XaeV/9Qi7E22bH4VWkqdN/jqAF8Z+RCHTA8Kz1H//mlH6i//jlB24wfdi+c7a8VxQfSqn3veOcxY20 u/+1gX/pDnS99+hDTIsPPCtjjHR5M/pJ4l9W/9lcQs3Wj2z9c2mffwownhx/BN+G44K37dfnL/INrcCz 8f+A/rhhK95eFnw1lUyeicugORHI6OW/gy45Mfhvjz vY+LeqamIb1q8Y7Qzv+czL211rCDzuk1n0j37vcZd1/d7M4n06WM+0PBh5LQxy/pxftuT4einCDhU+GX U97OqkU91aOxdnaKbz1AseS7BUrUgGVEvKS6Lhjv9OtP77RF4ZzxCfGPJ2O2owZ6T70b4XtkJN+F8TAq fs4ZFU/mEL7JonpNU592u+Dyk0g55IBbN7H+fNWN73 MyvgF+n96n5fzmKZwuJcsIZVbWG3KKwsxB3KC+rg0c1UV+CUdXQiSCrFJ93nZ+kM+RPwezdryyjh0kBS 0I7nDiqHKk6kuM7N6+ibIXPVH3+ye2PH+q/RH/CuVZ+PnMJnwTvgnfhe/Cl/0yWN43KedqUMdIgrtTC+ PF5Mz74LjsS5vmrQ+U751b+Ef4+n8uh0T1JYbobnOF Yd+ONl8V7+rIvy8aHQukB+3bWRb+kOfLnuGIffsR+/jihmAyg29qRh+aLcEAM96ir+HL/WY3JHauXMzu hb19r73VC3e/6IH+EdzRbbPw7DE+Johann/TvPv2RbAn7yi04uuydvKy+FIfIazyz/b5XzOle84jeD83rSn [file] NSAwIFIKCj4+XjK2UGT3eJBiHyykRUi0HbiCJZKDL1Y= ID Date Data Source [id number] 04/26/2020 10:43:17 AM EDT [facility] Name Value Range Interpretation Code Description Data Apurva rce(s) Supporting Document(s) HEMOGLOBIN A1C @ 5.1 % (4.0-6.0) [facility] Performed using Siemens Camden immunoassa y.Care must be taken when interpreting CyM2quxsqzit in patients with a hemoglobin variantor decreased erythrocyte lifespan. Values 5.7 - 6.4% suggest prediabetes.Values >=6.5% are diagnostic for diabetes.REFERENCE: DIABETES CARE 2018: 41(S13-S27).PERFORMED AT [address] [facility] [address] EST AVERAGE GLUCOSE 100 mg/dL [facility] ID Date Data Source [id number] 04/26/2020 04:25:54 AM EDT [facility] SPEC EXP DATE 04/28/2020PATI ENT ABO/Rh A POSITIVEANTIBODY SCREEN NEGATIVETESTING SITE PERFORMED AT [address] [facility] [address] Name Value Range Interpretation Code Description Data Apurva rce(s) Supporting Document(s) ID Date Data Source [id number] 04/25/2020 11:30:28 PM EDT [facility] Name Value Range Interpretation Code Description Data Apurva rce(s) Supporting Document(s) TROPONIN I <0.05 ng/mL (<0.05) [facility] [place] Less than 0.05: Myocardial injury unlike lyGreater than or equal to 0.05: Highly suggestive of myocardial injuryCorrelation with rise and/or fall ofserial troponins, clinical symptomsand ECG changes is necessary. ID Date Data Source [id number] 04/25/2020 11:30:28 PM EDT [facility] Name Value Range Interpretation Code Description Data Apurva rce(s) Supporting Document(s) SODIUM 134 mmol/L (136-145) L [facility] POTASSIUM 3.7 mmol/L (3.6-5.2) [facility] CHLORIDE 101 mmol/L (100-108) [facility] CO2 8 mmol/L (22-31) LL [facility] RESULT(S) CALLED TO AND READ BACK NAEEM GIL AT ED ON 04/25/2020 AT 5791 BY [address] ANION GAP 25 mmol/L (7-16) H [facility] RESULTS REVIEWED UREA NITROGEN 10 mg/dL (7-24) [facility] CREATININE 0.86 mg/dL (0.60-1.00) [facility] BUN/CREAT RATIO 11.6 RATIO (10.0-20.0) [facility] GLUCOSE 106 mg/dL (70-99) H [facility] CALCIUM 8.1 mg/dL (8.4-10.2) L [facility] GFR >60 ml/min/1.73m2 (>59) [facility] GFR ( AMER) >60 ml/min/1.73m2 (>59) [facility] GFR INTERPRETATION [facility] --NORMAL KIDNEY FUNCTION OR MILD DISEASE - GFR >OR= 60CHRONIC KIDNEY DISEASE - GFR 15 - 59RENAL FAILURE - GFR <15 Est. GFR calculation based on the MDRDstudy equation, which assumes a steadystate for creatinine. Est. GFR should notbe used for medication dosing. ID Date Data Source [id number] 04/25/2020 11:30:28 PM EDT [facility] Name Value Range Interpretation Code Description Data Apurva rce(s) Supporting Document(s) TOTAL PROTEIN 7.5 g/dL (6.4-8.2) [facility] ALBUMIN 3.8 g/dL (3.2-4.5) [facility] GLOBULIN 3.7 g/dL (2.7-4.3) [facility] ALB/GLOB RATIO 1.0 RATIO [facility] BILIRUBIN,TOTAL 1.5 mg/dL (0.0-1.0) [facility] PLEASE NOTE:Total bilirubin results may be falselyelevated in patients taking Eltrombopag. BILIRUBIN,CONJUGATED 0.9 mg/dL (0.0-0.3) H [facility] BILIRUBIN,UNCONJ. 0.6 mg/dL (0.0-0.7) [facility] ALKALINE PHOSPHATASE 125 U/L (45-117) H [facility] AST (SGOT) 201 U/L (11-39) H [facility] ALT (SGPT) 142 U/L (12-78) H [facility] ID Date Data Source [id number] 04/25/2020 11:30:28 PM EDT [facility] Name Value Range Interpretation Code Description Data Apurva rce(s) Supporting Document(s) LIPASE 852 U/L (65-230) H [facility] ID Date Data Source [id number] 04/25/2020 11:06:55 PM EDT [facility] Name Value Range Interpretation Code Description Data Apurva rce(s) Supporting Document(s) PT 10.9 s (9.2-11.9) [facility] PERFORMED AT [address] [facility] [id number] INR 1.04 [facility] SUGGESTED THERAPEUTIC RANGES USING INR F ORSTABILIZED ANTICOAGULATED PATIENTS:STANDARD DOSE THERAPY INR 2.0-3.0 DVT, PE, PREVENT DVT OR EMBOLISMHIGH DOSE THERAPY INR 2.5-3.5 PREVENT EMBOLISM FROM MECHANICAL HEART VALVE ID Date Data Source [id number] 04/25/2020 10:57:27 PM EDT [facility] Name Value Range Interpretation Code Description Data Apurva rce(s) Supporting Document(s) WBC 6.1 10*3/uL (4.1-11.0) [facility] [place] RBC 3.33 10*6/uL (4.00-5.40) L [facility] HGB 10.5 g/dL (12.0-16.0) L [facility] HCT 31.9 % (36.0-47.0) L [facility] MCV 96.0 fL (80.0-95.0) H [facility] MCH 31.7 pg (27.0-32.0) [facility] MCHC 33.0 g/dL (32.0-36.0) [facility] RDW 15.4 % (10.5-14.5) [facility] PLT 148 10*3/uL (150-450) L [facility] MPV 8.5 fL (7.1-10.7) [facility] NEUT % 80.6 % (35.0-75.0) [facility] LYMPH % 12.8 % (16.0-52.0) L [facility] MONO % 6.0 % (0.0-8.0) [facility] EOS % 0.1 % (0.0-5.0) [facility] BASO % 0.5 % (0.0-4.0) [facility] NEUT # 4.9 10*3/uL (1.8-7.7) [facility] LYMPH # 0.8 10*3/uL (1.2-4.8) L [facility] MONO # 0.4 10*3/uL (0.0-0.8) [facility] Eosinophils [#/volume] in Blood by Automated count 0.0 10*3/uL (0.0-0 .5) [facility] BASO # 0.0 10*3/uL (0.0-0.2) [facility] Procedure Social History Code Duration Value Status Description Data Source(s ) Smoking 06/08/2021 12:00:00 AM EDT Current Smoker completed Curre nt Smoker eCW1 ([facility]) Smoking 06/08/2021 12:00:00 AM EDT Current Smoker completed Curre nt Smoker eCW1 ([facility]) Smoking 06/05/2021 12:00:00 AM EDT Current Smoker completed Curre nt Smoker eCW1 ([facility]) Smoking 05/15/2021 12:00:00 AM EDT Current Smoker completed Curre nt Smoker eCW1 ([facility]) Smoking 05/04/2021 12:00:00 AM EDT Current Smoker completed Curre nt Smoker eCW1 ([facility]) Smoking 05/04/2021 12:00:00 AM EDT Current Smoker completed Curre nt Smoker eCW1 ([facility]) Smoking 05/04/2021 12:00:00 AM EDT Current Smoker completed Curre nt Smoker eCW1 ([facility]) Smoking 05/04/2021 12:00:00 AM EDT Current Smoker completed Curre nt Smoker eCW1 ([facility]) Smoking 04/12/2021 12:00:00 AM EDT Current Smoker completed Curre nt Smoker eCW1 ([facility]) Smoking 04/12/2021 12:00:00 AM EDT Current Smoker completed Curre nt Smoker eCW1 ([facility]) Smoking 04/05/2021 12:00:00 AM EDT Unknown if ever smoked comp leted Unknown if ever smoked [facility] ([facility]) Smoking 03/07/2021 12:00:00 AM EDT Unknown if ever smoked comp leted Unknown if ever smoked [facility] ([facility]) Smoking 01/16/2021 12:00:00 AM EDT Unknown if ever smoked comp leted Unknown if ever smoked [facility] ([facility]) Smoking 01/09/2021 12:00:00 AM EDT Unknown if ever smoked comp leted Unknown if ever smoked [facility] ([facility]) Smoking 01/01/2021 12:00:00 AM EDT Current Smoker completed [facility] [facility] Smoking 01/01/2021 12:00:00 AM EDT Current Smoker completed Curre nt Smoker eCW1 ([facility]) Smoking 01/01/2021 12:00:00 AM EDT Current Smoker completed Curre nt Smoker eCW1 ([facility]) Smoking 01/01/2021 12:00:00 AM EDT Current Smoker completed Curre nt Smoker eCW1 ([facility]) Smoking 01/01/2021 12:00:00 AM EDT Current Smoker completed Curre nt Smoker eCW1 ([facility]) Smoking 12/26/2020 12:00:00 AM EDT Unknown if ever smoked comp leted Unknown if ever smoked [facility] ([facility]) Smoking 12/19/2020 12:00:00 AM EDT Unknown if ever smoked comp leted Unknown if ever smoked [facility] ([facility]) Smoking 12/12/2020 12:00:00 AM EDT Unknown if ever smoked comp leted Unknown if ever smoked [facility] ([facility]) Smoking 11/21/2020 12:00:00 AM EDT Unknown if ever smoked comp leted Unknown if ever smoked [facility] ([facility]) Smoking 11/14/2020 12:00:00 AM EDT Unknown if ever smoked comp leted Unknown if ever smoked [facility] ([facility]) Smoking 10/19/2020 12:00:00 AM EST Unknown if ever smoked comp leted Unknown if ever smoked [facility] ([facility]) Smoking 10/17/2020 12:00:00 AM EST Unknown if ever smoked comp leted Unknown if ever smoked [facility] ([facility]) Smoking 10/02/2020 12:00:00 AM EST Current Smoker completed Curre nt Smoker eCW1 ([facility]) Smoking 10/02/2020 12:00:00 AM EST Current Smoker completed Curre nt Smoker eCW1 ([facility]) Smoking 10/02/2020 12:00:00 AM EST Current Smoker completed Curre nt Smoker eCW1 ([facility]) Smoking 10/02/2020 12:00:00 AM EST Current Smoker completed Curre nt Smoker eCW1 ([facility]) Smoking 10/02/2020 12:00:00 AM EST Current Smoker completed Curre nt Smoker eCW1 ([facility]) Smoking 10/02/2020 12:00:00 AM EST Current Smoker completed Curre nt Smoker eCW1 ([facility]) Smoking 09/27/2020 12:00:00 AM EST Unknown if ever smoked comp leted Unknown if ever smoked [facility] ([facility]) Smoking 09/05/2020 12:00:00 AM EST Unknown if ever smoked comp leted Unknown if ever smoked [facility] ([facility]) Smoking 08/30/2020 12:00:00 AM EST Current Smoker completed Curre nt Smoker eCW1 ([facility]) Smoking 08/30/2020 12:00:00 AM EST Current Smoker completed Curre nt Smoker eCW1 ([facility]) Smoking 08/30/2020 12:00:00 AM EST Current Smoker completed Curre nt Smoker eCW1 ([facility]) Smoking 08/30/2020 12:00:00 AM EST Current Smoker completed Curre nt Smoker eCW1 ([facility]) Smoking 08/30/2020 12:00:00 AM EST Current Smoker completed Curre nt Smoker eCW1 ([facility]) Smoking 08/22/2020 12:00:00 AM EST Unknown if ever smoked comp leted Unknown if ever smoked [facility] ([facility]) Smoking 07/28/2020 12:00:00 AM EST Unknown if ever smoked comp leted Unknown if ever smoked [facility] ([facility]) Smoking 07/25/2020 12:00:00 AM EST Unknown if ever smoked comp leted Unknown if ever smoked [facility] ([facility]) Smoking 07/11/2020 12:00:00 AM EST Current Smoker completed Curre nt Smoker eCW1 ([facility]) Smoking 07/11/2020 12:00:00 AM EST Current Smoker completed Curre nt Smoker eCW1 ([facility]) Smoking 07/04/2020 12:00:00 AM EST Unknown if ever smoked comp leted Unknown if ever smoked [facility] ([facility]) Smoking 06/20/2020 12:00:00 AM EDT Unknown if ever smoked comp leted Unknown if ever smoked [facility] ([facility]) Smoking 06/06/2020 12:00:00 AM EDT Unknown if ever smoked comp leted Unknown if ever smoked [facility] ([facility]) Smoking 04/26/2020 08:03:00 AM EDT Daily Smoker completed Daily [facility] Smoking 04/26/2020 12:00:00 AM EDT Unknown if ever smoked comp leted Unknown if ever smoked [facility] ([facility]) Vital Signs ID Date Data Source UNK Name Value Range Interpretation Code Description Data Source(s) Body weight 156 [lb_av] 156 [lb_av] eCW1 ([facility]) Body weight 70.76 kg 70.76 kg eCW1 ([facility]) Body height [in_i] eCW1 ([facility]) Body mass index (BMI) [Ratio] 28.08 kg/m2 28.08 kg/m2 eCW1 ([facility]) Heart rate 116 /min 116 /min eCW1 ([facility]) Respiratory rate 18 /min 18 /min eCW1 ([facility]) Body temperature 97.8 [degF] 97.8 [degF] eCW1 ( [facility]) Systolic blood pressure 132 mm[Hg] 132 mm[Hg] e CW1 ([facility]) Diastolic blood pressure 78 mm[Hg] 78 mm[Hg] eCW1 ([facility]) Body height 0.00 in Normal (applies to non-numeric resu lts) 0.00 in [facility] Body weight Measured 0.00 lbs Normal (applies to n on-numeric results) 0.00 lbs [facility] ([facility]) Body mass index (BMI) [Ratio] 0.00 kg/m2 No rmal (applies to non-numeric results) 0.00 kg/m2 [facility] ([facility]) Systolic blood pressure 0 mm[Hg] Normal (applies t o non-numeric results) 0 mm[Hg] [facility] ([facility]) Diastolic blood pressure 0 mm[Hg] Normal (applies to non-numeric results) 0 mm[Hg] [facility] ([facility]) Body weight 162 [lb_av] 162 [lb_av] eCW1 ([facility]) Body height [in_i] eCW1 ([facility]) Body mass index (BMI) [Ratio] 29.15 kg/m2 29.15 kg/m2 eCW1 ([facility]) Heart rate 107 /min 107 /min eCW1 ([facility]) Respiratory rate 18 /min 18 /min eCW1 ([facility]) Body temperature 95.1 [degF] 95.1 [degF] eCW1 ( [facility]) Systolic blood pressure 132 mm[Hg] 132 mm[Hg] e CW1 ([facility]) Diastolic blood pressure 82 mm[Hg] 82 mm[Hg] eCW1 ([facility]) Body weight Measured 0.00 lbs Normal (applies to n on-numeric results) 0.00 lbs [facility] ([facility]) Body height 0.00 in Normal (applies to non-numeric resu lts) 0.00 in [facility] ([facility]) Systolic blood pressure 0 mm[Hg] Normal (applies t o non-numeric results) 0 mm[Hg] [facility] ([facility]) Diastolic blood pressure 0 mm[Hg] Normal (applies to non-numeric results) 0 mm[Hg] [facility] ([facility]) Body mass index (BMI) [Ratio] 0.00 kg/m2 No rmal (applies to non-numeric results) 0.00 kg/m2 [facility] ([facility]) Body height 0.00 in Normal (applies to non-numeric resu lts) 0.00 in [facility] ([facility]) Body weight Measured 0.00 lbs Normal (applies to n on-numeric results) 0.00 lbs [facility] ([facility]) Body mass index (BMI) [Ratio] 0.00 kg/m2 No rmal (applies to non-numeric results) 0.00 kg/m2 [facility] ([facility]) Systolic blood pressure 0 mm[Hg] Normal (applies t o non-numeric results) 0 mm[Hg] [facility] ([facility]) Diastolic blood pressure 0 mm[Hg] Normal (applies to non-numeric results) 0 mm[Hg] [facility] ([facility]) Body height 0.00 in Normal (applies to non-numeric resu lts) 0.00 in [facility] Body weight Measured 0.00 lbs Normal (applies to n on-numeric results) 0.00 lbs [facility] ([facility]) Body mass index (BMI) [Ratio] 0.00 kg/m2 No rmal (applies to non-numeric results) 0.00 kg/m2 [facility] ([facility]) Systolic blood pressure 0 mm[Hg] Normal (applies t o non-numeric results) 0 mm[Hg] [facility] Diastolic blood pressure 0 mm[Hg] Normal (applies to non-numeric results) 0 mm[Hg] [facility] ([facility]) Body weight 157 [lb_av] 157 [lb_av] eCW1 ([facility]) Body height [in_i] eCW1 ([facility]) Body mass index (BMI) [Ratio] 28.25 kg/m2 28.25 kg/m2 eCW1 ([facility]) Heart rate 102 /min 102 /min eCW1 ([facility]) Respiratory rate 18 /min 18 /min eCW1 ([facility]) Body temperature 96.8 [degF] 96.8 [degF] eCW1 ( [facility]) Systolic blood pressure 148 mm[Hg] 148 mm[Hg] e CW1 ([facility]) Diastolic blood pressure 72 mm[Hg] 72 mm[Hg] eCW1 ([facility]) Body height 0.00 in Normal (applies to non-numeric resu lts) 0.00 in [facility] Body weight Measured 0.00 lbs Normal (applies to n on-numeric results) 0.00 lbs [facility] ([facility]) Body mass index (BMI) [Ratio] 0.00 kg/m2 No rmal (applies to non-numeric results) 0.00 kg/m2 [facility] ([facility]) Systolic blood pressure 0 mm[Hg] Normal (applies t o non-numeric results) 0 mm[Hg] [facility] ([facility]) Diastolic blood pressure 0 mm[Hg] Normal (applies to non-numeric results) 0 mm[Hg] [facility] ([facility]) Body weight 155 [lb_av] 155 [lb_av] eCW1 ([facility]) Body height [in_i] eCW1 ([facility]) Body mass index (BMI) [Ratio] 27.90 kg/m2 27.90 kg/m2 eCW1 ([facility]) Heart rate 97 /min 97 /min eCW1 ([facility]) Respiratory rate 17 /min 17 /min eCW1 ([facility]) Body temperature 97.4 [degF] 97.4 [degF] eCW1 ( [facility]) Systolic blood pressure 138 mm[Hg] 138 mm[Hg] e CW1 ([facility]) Diastolic blood pressure 82 mm[Hg] 82 mm[Hg] eCW1 ([facility]) Body height 0.00 in Normal (applies to non-numeric resu lts) 0.00 in [facility] Body weight Measured 0.00 lbs Normal (applies to n on-numeric results) 0.00 lbs [facility] ([facility]) Body mass index (BMI) [Ratio] 0.00 kg/m2 No rmal (applies to non-numeric results) 0.00 kg/m2 [facility] ([facility]) Systolic blood pressure 0 mm[Hg] Normal (applies t o non-numeric results) 0 mm[Hg] [facility] ([facility]) Diastolic blood pressure 0 mm[Hg] Normal (applies to non-numeric results) 0 mm[Hg] [facility] ([facility]) Body weight 144 [lb_av] 144 [lb_av] eCW1 ([facility]) Body height [in_i] eCW1 ([facility]) Body mass index (BMI) [Ratio] 25.92 kg/m2 25.92 kg/m2 W1 ([facility]) Heart rate 112 /min 112 /min eCW1 ([facility]) Respiratory rate 18 /min 18 /min eCW1 ([facility]) Body temperature 96.8 [degF] 96.8 [degF] eCW1 ( [facility]) Systolic blood pressure 132 mm[Hg] 132 mm[Hg] e CW1 ([facility]) Diastolic blood pressure 84 mm[Hg] 84 mm[Hg] eCW1 ([facility]) Systolic blood pressure 124 mm[Hg] Normal (applies t o non-numeric results) 124 mm[Hg] [facility] Diastolic blood pressure 72 mm[Hg] Normal (applies to non-numeric results) 72 mm[Hg] [facility] Heart rate 97 min Normal (applies to non-numeric resul ts) 97 min [facility] Respiratory rate 18 min Normal (applies to non-numeric results) 18 min [facility] Body temperature 37.2 isabell Normal (applies to non-numeric results) 37.2 isabell [facility] Deprecated Oxygen saturation in Capillary blood by Oximetry 97 % Normal (applies to non-numeric results) 97 % [facility] Body height 159.7152 cm Normal (applies to non-numeric res ults) 159.7152 cm [facility] Body mass index (BMI) [Ratio] 26.09 kg/m2 No rmal (applies to non-numeric results) 26.09 kg/m2 [facility] Body weight Measured 66.8 kg Normal (applies to non-num hilda results) 66.8 kg [facility] Inhaled oxygen concentration 40 % Normal (appl ies to non-numeric results) 40 % [facility] ID Date Data Source [id number] 12/11/2020 08:00:00 AM EDT [facility] Name Value Range Interpretation Code Description Data Source(s) Weight (Calculated Kilograms) 68.04 68.04 [facility] Weight 2400 2400 [facility] pital Temperature Source 7 7 [facility] Temperature 97.7 97.7 [facility] Respiratory Effort 1 1 [facility] Respiratory Rate 18 18 [facility] Pulse Assessment Method 4 4 [facility] Pulse Rate 84 84 [facility] Height (Calculated Centimeters) 160.02 160. 02 [facility] 63 63 [facility] 147/79 147/79 [facility] Body Mass Index (BMI) 26.5 26.5 [facility] Weight (Calculated Kilograms) 68.04 68.04 [facility] Weight 2400 2400 [facility] pital Temperature Source 7 7 [facility] Temperature 97.7 97.7 [facility] Respiratory Effort 1 1 [facility] Respiratory Rate 18 18 [facility] Pulse Assessment Method 4 4 [facility] Pulse Rate 84 84 [facility] Height (Calculated Centimeters) 160.02 160. 02 [facility] Height 63 63 [facility] pital Blood Pressure 147/79 147/79 [facility] Body Mass Index (BMI) 26.5 26.5 [facility] Weight (Calculated Kilograms) 68.04 68.04 [facility] Weight 2400 2400 [facility] pital Temperature Source 7 7 [facility] Temperature 98.6 98.6 [facility] Respiratory Effort 1 1 [facility] Respiratory Rate 18 18 [facility] Pulse Assessment Method 4 4 [facility] Pulse Rate 73 73 [facility] pital Height (Calculated Centimeters) 160.02 160. 02 [facility] Height 63 63 [facility] pital Blood Pressure 133/88 133/88 [facility] Body Mass Index (BMI) 26.5 26.5 [facility] Weight (Calculated Kilograms) 68.04 68.04 [facility] Weight 2400 2400 [facility] pital Temperature Source 7 7 [facility] Temperature 98.0 98.0 [facility] Respiratory Effort 1 1 [facility] Respiratory Rate 16 16 [facility] Pulse Assessment Method 4 4 [facility] Pulse Rate 87 87 [facility] Height (Calculated Centimeters) 160.02 160. 02 [facility] 63 63 [facility] 114/74 114/74 [facility] Body Mass Index (BMI) 26.5 26.5 [facility] Weight (Calculated Kilograms) 68.04 68.04 [facility] Weight 2400 2400 [facility] pital Temperature Source 7 7 [facility] Temperature 98.0 98.0 [facility] Respiratory Effort 1 1 [facility] Respiratory Rate 16 16 [facility] Pulse Assessment Method 4 4 [facility] Pulse Rate 114 114 [facility] Height (Calculated Centimeters) 160.02 160. 02 [facility] Height 63 63 [facility] Blood Pressure 109/68 109/68 [facility] Body Mass Index (BMI) 26.5 26.5 [facility] Weight (Calculated Kilograms) 68.04 68.04 [facility] Weight 2400 2400 [facility] pital Temperature Source 7 7 [facility] Temperature 98.0 98.0 [facility] Respiratory Effort 1 1 [facility] Respiratory Rate 16 16 [facility] Pulse Assessment Method 4 4 [facility] Pulse Rate 114 114 [facility] Height (Calculated Centimeters) 160.02 160. 02 [facility] 63 63 [facility] 109/68 109/68 [facility] Body Mass Index (BMI) 26.5 26.5 [facility] Weight (Calculated Kilograms) 68.67 68.67 [facility] Height (Calculated Centimeters) 160.02 160. 02 [facility] Body Mass Index (BMI) 26.8 26.8 [facility] ID Date Data Source [id number] 12/05/2020 07:49:00 PM EDT [facility] Name Value Range Interpretation Code Description Data Source(s) Weight Measurement Method 1 1 [facility] Weight (Calculated Kilograms) 69.22 69.22 [facility] Weight 2441.6 2441.6 [facility] pital Temperature Source 3 3 [facility] Temperature 97.3 97.3 [facility] Respiratory Effort 1 1 [facility] Respiratory Rate 18 18 [facility] Pulse Assessment Method 4 4 [facility] Pulse Rate 106 106 [facility] Height (Calculated Centimeters) 160.02 160. 02 [facility] Height 63 63 [facility] Blood Pressure 128/81 128/81 [facility] Body Mass Index (BMI) 27.0 27.0 [facility] Weight Measurement Method 1 1 [facility] Weight (Calculated Kilograms) 69.22 69.22 [facility] Weight 2441.6 2441.6 [facility] pital Temperature Source 3 3 [facility] Temperature 97.3 97.3 [facility] Respiratory Effort 1 1 [facility] Respiratory Rate 18 18 [facility] Pulse Assessment Method 4 4 [facility] Pulse Rate 106 106 [facility] pital Height (Calculated Centimeters) 160.02 160. 02 [facility] Height 63 63 [facility] pital Blood Pressure 128/81 128/81 [facility] Body Mass Index (BMI) 27.0 27.0 [facility] Weight Measurement Method 1 1 [facility] Weight (Calculated Kilograms) 69.22 69.22 [facility] Weight 2441.6 2441.6 [facility] pital Temperature Source 3 3 [facility] Temperature 97.6 97.6 [facility] Respiratory Effort 1 1 [facility] Respiratory Rate 18 18 [facility] Pulse Assessment Method 4 4 [facility] Pulse Rate 106 106 [facility] pital Height (Calculated Centimeters) 160.02 160. 02 [facility] Height 63 63 [facility] pital Blood Pressure 147/97 147/97 [facility] Body Mass Index (BMI) 27.0 27.0 [facility] Weight Measurement Method 1 1 [facility] Weight (Calculated Kilograms) 69.22 69.22 [facility] Weight 2441.6 2441.6 [facility] pital Temperature Source 7 7 [facility] Temperature 98.7 98.7 [facility] Respiratory Effort 1 1 [facility] Respiratory Rate 19 19 [facility] Pulse Assessment Method 4 4 [facility] Pulse Rate 104 104 [facility] pital Height (Calculated Centimeters) 160.02 160. 02 [facility] Height 63 63 [facility] pital Blood Pressure 138/79 138/79 [facility] Body Mass Index (BMI) 27.0 27.0 [facility] Patient Treatment Plan of Care Planned Activity Planned Date Details Description Data Source (s) Mupirocin 0.02 MG/MG Topical Ointment 05/04/2021 12:00:00 AM EDT eCW1 ([facility]) Mupirocin 0.02 MG/MG Topical Ointment 05/04/2021 12:00:00 AM EDT eCW1 ([facility]) Mupirocin 0.02 MG/MG Topical Ointment 05/04/2021 12:00:00 AM EDT eCW1 ([facility]) Mupirocin 0.02 MG/MG Topical Ointment 05/04/2021 12:00:00 AM EDT eCW1 ([facility]) ferrous gluconate 324 MG Oral Tablet 04/13/2021 12:00:00 AM EDT eCW1 ([facility]) Nicotine 2 MG Chewing Gum 04/13/2021 12:00:00 AM EDT eCW1 ([facility]) ferrous gluconate 324 MG Oral Tablet 04/13/2021 12:00:00 AM EDT eCW1 ([facility]) Nicotine 2 MG Chewing Gum 04/13/2021 12:00:00 AM EDT eCW1 ([facility]) Prolia 60mg/ml 09/01/2020 12:00:00 AM EST eCW1 ([facility]) Prolia 60mg/ml 09/01/2020 12:00:00 AM EST eCW1 ([facility]) Prolia 60mg/ml 09/01/2020 12:00:00 AM EST eCW1 ([facility]) ferrous gluconate 324 MG Oral Tablet 08/31/2020 12:00:00 AM EST eCW1 ([facility]) ferrous gluconate 324 MG Oral Tablet 08/31/2020 12:00:00 AM EST eCW1 ([facility]) ferrous gluconate 324 MG Oral Tablet 08/31/2020 12:00:00 AM EST eCW1 ([facility]) ferrous gluconate 324 MG Oral Tablet 08/31/2020 12:00:00 AM EST eCW1 ([facility]) ferrous gluconate 324 MG Oral Tablet 08/31/2020 12:00:00 AM EST eCW1 ([facility]) Hydrocortisone 25 MG/ML Topical Cream 06/21/2020 12:00:00 AM EDT eCW1 ([facility]) Hydrocortisone 25 MG/ML Topical Cream 06/21/2020 12:00:00 AM EDT eCW1 ([facility]) Hydrocortisone 25 MG/ML Topical Cream 06/21/2020 12:00:00 AM EDT eCW1 ([facility]) Hydrocortisone 25 MG/ML Topical Cream 06/21/2020 12:00:00 AM EDT eCW1 ([facility]) Hydrocortisone 25 MG/ML Topical Cream 06/21/2020 12:00:00 AM EDT eCW1 ([facility]) Hydrocortisone 25 MG/ML Topical Cream 06/21/2020 12:00:00 AM EDT eCW1 ([facility]) Hydrocortisone 25 MG/ML Topical Cream 06/21/2020 12:00:00 AM EDT eCW1 ([facility]) Hydrocortisone 25 MG/ML Topical Cream 06/21/2020 12:00:00 AM EDT eCW1 ([facility]) Hydrocortisone 25 MG/ML Topical Cream 06/21/2020 12:00:00 AM EDT eCW1 ([facility]) Hydrocortisone (Perianal) 1 % 05/18/2020 01:00:00 AM EDT [facility] ([facility]) Cranberry Ultra Strength 250-60 MG 05/18/2020 01:00:00 AM EDT [facility] ([facility]) Vagisil Maximum Strength 20-3 % 05/18/2020 01:00:00 AM EDT [facility]) Atorvastatin Calcium 80 MG 05/15/2020 01:00:00 AM EDT [facility] ([facility]) Citalopram Hydrobromide 20 MG 05/15/2020 01:00:[facility] Eliquis 2.5 MG 05/15/2020 01:00:00 AM EDT [facility] ([facility]) Pantoprazole Sodium 40 MG 05/15/2020 01:00:00 AM EDT [facility] ([facility]) Sucralfate 1 GM 05/15/2020 01:00:00 AM EDT [facility] ([facility]) Vitamin D3 1000 UNIT 05/15/2020 01:00:00 AM EDT [facility] ([facility]) Calcium 600+D3 600-800 MG-UNIT 05/15/2020 01:00:00 AM EDT NETSMART ([facility]) C-1000 1000 MG 05/15/2020 01:00:00 AM EDT NETSMART ([facility]) Benadryl Allergy 25 MG 05/15/2020 01:00:00 AM EDT NETSMART ([facility]) Aleve 220 MG 05/15/2020 01:00:00 AM EDT N ETSMART ([facility]) Ibuprofen 200 MG 05/15/2020 01:00:00 AM EDT NETSMART ([facility]) Stress B Complex/Iron 05/15/2020 01:00:00 AM EDT [facility]SMART ([facility]) Melatonin 10 MG 05/15/2020 01:00:00 AM EDT NETSMART ([facility]) Tums Extra Strength 750 750 MG 05/15/2020 01:00:00 AM EDT NETSMART ([facility]) Neosporin Original 05/15/2020 01:00:00 AM EDT NETSMART ([facility])
--- NOTE | 2021-06-12 14:34 | REP ---
INDICATION: persistant diarrhea, increasing abd distention COMPARISON: 06/01/2021 TECHNIQUE: Axial noncontrast images from the lung bases to the pubic symphysis with coronal and sagittal reformations. This CT examination was performed using the following dose reduction techniques: Automated exposure control, adjustment of mA and/or kv according to the patient's size, and use of iterative reconstruction technique. FINDINGS: Current examination again demonstrates moderate amount of ascites along with somewhat heterogeneous parenchymal texture and recanalized umbilical vein suggesting cirrhosis. Few small periportal lymph nodes cannot be excluded Spleen, pancreas, gallbladder, bilateral adrenal glands and kidneys are essentially normal for noncontrast evaluation. Evaluation of the enteric system again demonstrates mucosal thickening involving the terminal ileum and colon with pericolonic stranding and mesenteric edema again suggesting a pancolitis. Extensive diverticulosis noted small foci of extraluminal contained gas adjacent to the cecum may represent early loculated perforation and these findings are relatively similar to prior examination. Pelvis demonstrates normal bladder and lobulated myomatous uterus along with small fat containing inguinal hernia. Atherosclerotic changes to the aorta and vasculature noted without aneurysm. Musculoskeletal structures are intact. IMPRESSION: 1. Moderate amount of ascites and findings to suggest cirrhosis should be correlated clinically. 2. Pancolitis including inflammatory changes to the terminal ileum and possible contained rupture at the cecum cannot be excluded. Findings are similar to 06/01/2021 examination. <Electronically signed by Martin Yeager > 06/12/21 [id number]
[2021-06-12] MEDS ORDERED: POTASSIUM CHLORIDE 10MEQ SR TABLET PO ONE (15:10)
[2021-06-12 15:56] VITALS: BP 121/66
== END 2021-06-12 15:56 | disposition home or self-care (01) ==
LOC: EDBD 10:47 → M ED 10:47
DX: R74.01 Elevation of levels of liver transaminase levels (principal); E87.6 Hypokalemia; R18.8 Other ascites; R19.7 Diarrhea, unspecified; Z79.899 Other long term (current) drug therapy; Z91.011 Allergy to milk products

== ENCOUNTER → 2021-06-14 | Outpatient (CLI) | payer MEDICARE, MEDICAID ==
[2021-06-14 16:46] LABS: ALBUMIN 2.2 GM/DL (3.2-5.2); ALT/SGPT 31 U/L (12-78); BILIRUBIN,TOTAL 0.9 MG/DL (0.2-1.0); BLOOD UREA NITROGEN 4 MG/DL (7-18); CALCIUM LEVEL 8.2 MG/DL (8.8-10.2); CARBON DIOXIDE LEVEL 27 MEQ/L (21-32); CHLORIDE LEVEL 100 MEQ/L (98-107); CREATININE FOR GFR 0.56 MG/DL (0.55-1.30); GLOMERULAR FILTRATION RATE > 60.0 (>45); GLUCOSE, FASTING 99 MG/DL (70-100); POTASSIUM SERUM 3.1 MEQ/L (3.5-5.1); SODIUM LEVEL 136 MEQ/L (136-145); TOTAL PROTEIN 5.7 GM/DL (6.4-8.2)
== END ==
LOC: M LAB 15:28
PROVIDERS: ATTEND Physician Assistant
DX: R74.01 Elevation of levels of liver transaminase levels (principal); E87.6 Hypokalemia

== ENCOUNTER 2021-06-24 06:24 | Inpatient (IN) | payer MEDICARE, MEDICAID ==
[~2021-06-24] VITALS: Ht 160 cm; Wt 75.5 kg
--- OUTSIDE RECORDS SUMMARY | 2021-06-24 06:35 | CCD ---
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 Operator Name Role Phone Micheline Howell Unavailable PROBLEMS Type Condition ICD9-CM Code SVX77-CH Code Onset Dates Condition S tatus W/U Status Risk SNOMED Code Notes Problem Dyslipidemia E78.5 Active confirmed 3477248 07 Problem Osteoporosis M81.0 Active confirmed 7748334 6 Problem Abnormal mammogram of left breast R92.8 Active confirmed 970307404 Problem Difficulty sleeping G47.9 Active confirmed 095957756 Problem Body aches R52 Active confirmed 67275038 Problem Tinnitus, bilateral H93.13 Active confirmed 3346371533418 Problem Abnormal mammogram R92.8 Active confirmed 1 13512482 Problem 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 Active confirmed 190 366429 Problem Smoker F17.200 Active confirmed 53900701 Problem Terminal ileitis with complication K50.019 Activ e confirmed 660005527 Problem Major depressive disorder, single episode, unspecified F32.9 Active confirmed 15993281 Problem 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 Active confirmed 2781206 4 Problem Alcohol abuse F10.10 Active confirmed 270131 05 Problem Nightmares F51.5 Active confirmed 843172334 Problem Cigarette nicotine dependence without complication F17.210 Active confirmed 18159125 Problem Iron deficiency anemia due to chronic blood loss D 50.0 Active confirmed 477066288 Problem Age-related osteoporosis without current pathological fracture M81.0 Active confirmed 093895953 Problem Pancolitis K51.00 Active confirmed 177038992 Problem Abnormal laboratory test result R89.9 Active confi rmed 030112240 Problem Polyp of splenic flexure of colon K63.5 Active confirmed 478591976 Problem Cigarette nicotine dependence, uncomplicated F17.2 10 Active confirmed 78959632 Problem Adenomatous polyp of cecum D12.0 Active confirmed 010770343 Problem Macrocytic anemia with vitamin B12 deficiency D51. 8 Active confirmed 07029700 Problem Adenomatous polyp of transverse colon D12.3 Ac tive confirmed 301201871 Problem Adenomatous polyp of ascending colon D12.2 Act howie confirmed 494668394 Problem Other ascites R18.8 Active confirmed 015043 000 Problem Pure hypercholesterolemia E78.00 Active confirmed 537265992 Problem Hypokalemia E87.6 Active confirmed 58871042 Problem Elevated blood pressure read ing in office with diagnosis of hypertension I10 Active confirmed 82219484 Problem Mild episode of recurrent major depressive disorder F33.0 Active confirmed 128142594 Problem Dyspnea, unspecified type R06.00 Active confirmed 494246497 Problem External hemorrhoid K64.4 Active confirmed 40349049 Problem Internal hemorrhoid K64.8 Active confirmed 40938386 Problem Diverticulosis K57.90 Active confirmed 60522 1000 ALLERGIES No Known Allergies ENCOUNTERS from 1950 to 2021-06-21 Encounter [place] [address] 18 May, 2021 Micheline Howell IMMUNIZATIONS Vaccine Route [...] Unknown Language: Question Answer Notes Languages spoken: Yi Baptism: Question Answer Notes Baptism No jain beliefs that would impact health [...] Information RESULTS No Results REASON FOR VISIT ER/hospital MEDICAL (GENERAL) HISTORY Type Description Date Medical [...] Name:Jose Vazquez, 2021-07-13 10: 30:00 AM, [address] [facility], , [place], [address], Insurance Providers Payer Name Payer Address Payer Phone Insured Name Patient Relati onship to Insured Coverage Start Date Coverage End Date MEDICAID [employer] [address] [facility] [id number] ALEX JAMES self [facility] [id number] [facility] [id number] ALEX JAMES self
--- OUTSIDE RECORDS SUMMARY | 2021-06-24 06:35 | CCD ---
Author Author Hilary Hdz Solomon Organization Unknown Address [address] [place] [address] Phone Care Team Providers Care Pellet Mill Operator Name Role Phone HdzRufinaSolomon PCP Allergies, Adverse Reactions, Alerts Concept Allergy Name Reaction Severity Onset Date Status Documentation Date Phone Number Npid Taxonomy Code Taxonomy Desc Author Last Name Author Fi rst Name Concept Type 197813 prazosin dizziness 08/11/2017 Active 08/07/2017 [id number] Psychiatry Gina Casper RXNORM Problem List Concept Problem Description Status Start Date Created Date Resolv ed Date Snomed Code F41.9 Unspecified Anxiety Disorder Active 06/20/2021 F10.20 Alcohol Use Disorder, Severe Active 06/20/2021 F17.200 Tobacco Use Disorder, Severe Active 06/20/2021 F41.0 Panic Disorder Active 06/20/2021 F43.9 Unspecified Trauma- and Stressor-Related Disorder Active 06/20/2021 Medications Rx Norm Medication Route Route Concept Start Date Stop Date Dosage Lenny quency Duration Formula Strength Dosage Form Dosage Form Code Dosage Description Medication Id Account Npid Author First Name Author Last Name Taxonomy Code Taxonomy Desc Phone Number [id number] mirtazapine 10/03/2020 07/17/2021 30 15 mg tablet 50239 [id number] Solomon Hdz [id number] Nurse Practitioner [phone] [id number] citalopram by mouth [id number] 10/03/2020 07/17/2021 once a day 30 20 mg tablet 64740 454818 [id number] Solomon Hdz [id number] Nurse Pr actitioner [id number] [id number] buspirone 10/03/2020 07/17/2021 30 10 mg tablet 59151 407459 [id number] Solomon Hdz [id number] Nurse Practitioner [phone] Social History Social History Element Description Concept Effective Date Smoking Status Unknown if ever smoked [id number] Immunizations No Data in Section Vital Signs No Data in Section Procedures Date Concept Id Description Targeted Site Concept Targeted Site Concept Type 06/20/2021 25900-54 [facility] Telemed E/M Lvl 3--Est pt CPT 06/20/2021 71706-39 Telemed A/O 30" CPT Patient has no history of implantable de vices Encounters Encounter Start Date End Date Encounter Type Description Diagnosis Di agnosis Desc Location Author First Name Author Last Name Npid Taxonomy Cod e Taxonomy Desc Phone Number Location Addr1 Location Addr2 Location City Location [place] Location Zip [id number] 06/20/2021 06/20/202127419-53 [facility] Telemed E/M Lvl 3--Est p t F41.9 Anxiety Disorder, Unspecified [facility] Solomon [phone] [id number] Nurse Practitioner [phone] [address] [address] Plan of Treatment No Data in Section Lab Results No Data in Section Instructions No Data in Section Functional Cognitive Status No Data in Section Insurance Providers Insurance Id Policy Effective Date Policy Thru Date Company N ibrahima [id number] 2017 Dual Complete Me dicare Community Plan [id number] MEDICAID
--- OUTSIDE RECORDS SUMMARY | 2021-06-24 06:38 | CCD ---
Author Author [facility] Organization [facility] Address Unknown Phone Unavailable Care Team Providers Care Medical Research Assistant Name Role Phone Primo Hdz NP Unavailable [...] Unavailable Unavailable PorRafat pantoja MD Unavailable Unavailable PorcarRafat pierson MD Unavailable Unavailable PorcarRafat pierson MD Unavailable Unavailable PorcarRafat pierson MD Unavailable Unavailable PorRafat pantoja MD Unavailable [...] Heidi SAUER MD Unavailable Unavailable MARSHA, Heidi SAURE MD Unavailable Unavailable MARSHA, Heidi SAUER MD [...] is protected by Article 27-F of the [facility] Public Health law. If you continue you may have access to information: Regarding HIV / AIDS; Provided by facilities licensed or operated by the [facility] Office of Mental Health; or Provided by the [facility] Office for People With Developmental Disabilities. If such information is present, then the following [facility] mandated warning applies: This information has been [...] law may result in a fine or penitentiary sentence or both. A general authorization for the release of medical or other information is NOT sufficient authorization for further disc losure. Allergies and Adverse Reactions Type Description Substance Reaction Status Data Source(s ) Propensity to adverse reactions to substance prazosin Prazosin 2 MG Oral Capsule dizziness Active [facility] ([facility]) No Known Drug Allergies No Known Drug Allergies No Known Drug Aller gies active [facility] ([facility] ) Family History Family Member Name Family Member Gender Family Member Status Date o f Status Description Data Source(s) Unknown Female Problem [facility] ([facility]) Encounters Encounter Providers Location Date Indications Data Source(s ) Outpatient Attender: Solomon Hdz NP [facility] 06/20/2021 10:30:00 AM EDT - 06/20/2021 10:30:00 AM EDT [facility] Attender: Solomon Hdz NP 06/20/2021 12:00:00 AM EDT [facility] ([facility]) [place] [address] [place] [address] 06/11/2021 12:00:00 AM EDT eCW1 ([facility]) [place] [address] [facility] [place] [address] 06/08/2021 12:00:00 AM EDT [facility]CW1 ([facility] [place] [address] [place] [address] 06/06/2021 12:00:00 AM EDT eCW1 ([facility]) [place] [address] [facility] [place] [address] 05/21/2021 12:00:00 AM EDT eCW1 ([facility]) [place] [address] [place] [address] 05/14/2021 12:00:00 AM EDT eCW1 ([facility]) [place] [address] [facility] [facility] [place] [address] 2021 12:00:00 AM EDT [facility]CW1 ([facility] [place] [address] [place] [address] 05/08/2021 12:00:00 AM EDT eCW1 ([facility] Outpatient [address] [place] [address] 05/04/2021 12:00:00 AM EDT [facility]CW1 ([facility] [place] [address] [place] [address] 05/04/2021 12:00:00 AM EDT eCW1 ([facility] [place] [address] [place] [address] 04/20/2021 12:00:00 AM EDT eCW1 ([facility]) [place] [address] [place] [address] 04/13/2021 12:00:00 AM EDT eCW1 ([facility]) Extended Individual Psychotherapy - 45 min Attender: Atilio Leone [facility] 04/05/2021 10:00:00 AM EDT - 04/05/2021 10:00:00 AM EDT [facility] ([facility]) Attender: Jessica Leone 04/05/2021 12:00:00 A M EDT [facility] ([facility]) Outpatient [address] [place] [address] 03/14/2021 12:00:00 AM EDT [facility]CW1 ([facility] [place] [address] [place] [address] 03/13/2021 12:00:00 AM EDT eCW1 ([facility]) [place] [address] [place] [address] 03/13/2021 12:00:00 AM EDT eCW1 ([facility]) [place] [address] [address] 03/08/2021 12:00:00 AM EDT [facility]CW1 [facility] Outpatient Attender: Solomon Hdz NP [facility] 03/07/2021 10:30:00 AM EDT - 03/07/2021 10:30:00 AM EDT [facility] ([facility]) Attender: Solomon Hdz NP 03/07/2021 12:00:00 AM EDT [facility] ([facility]) Outpatient Attender: Solomon Hdz NP [facility] 01/16/2021 01:30:00 AM EDT - 01/16/2021 01:30:00 AM EDT [facility] ([facility]) Attender: Solomon Hdz NP 01/16/2021 12:00:00 AM EDT [facility] ([facility]) Extended Individual Psychotherapy - 45 min Attender: Atilio Hammondcarlos [facility] 01/09/2021 09:00:00 AM EDT - 01/09/2021 09:00:00 AM EDT [facility] ([facility]) Attender: Jessica Leone 01/09/2021 12:00:00 A M EDT [facility] ([facility]) Outpatient [address] [place] [address] 01/01/2021 12:00:00 AM EDT eCW1 ([facility]) Extended Individual Psychotherapy - 45 min Attender: Atilio Hammondcarlos [facility] 12/26/2020 09:00:00 AM EDT - 12/26/2020 09:00:00 AM EDT [facility] ([facility]) Attender: Jessica Leone 12/26/2020 12:00:00 A M EDT [facility] ([facility]) Unknown [address] [address] 12/21/2020 12:00:00 AM EDT eCW1 ([facility]) Outpatient Attender: Solomon Hdz NP [facility] 12/19/2020 01:00:00 AM EDT - 12/19/2020 01:00:00 AM EDT [facility] ([facility]) Attender: Solomon Hdz NP 12/19/2020 12:00:00 AM EDT [facility] ([facility]) [place] [address] [address] 12/15/2020 12:00:00 AM EDT eCW1 ([facility]) Brief Individual Psychotherapy - 30 min Attender: Jessica wall [facility] 12/12/2020 12:45:00 PM EDT - 12/12/2020 12:45:00 PM EDT [facility] ([facility]) Attender: Jessica Leone 12/12/2020 12:00:00 A M EDT [facility] ([facility]) Unknown [address] [address] 12/08/2020 12:00:00 AM EDT eCW1 ([facility]) Outpatient Attender: UNKNOWN CPSCAORT-LABEJN 12/06/2020 09:42:00 AM E [facility] Inpatient Attender: Rafat Sheth MDAdmitter: Rafat dewitt MD ED-MSP 12/05/2020 07:41:00 PM EDT - 12/08/2020 09:25:00 AM EDT F10.20 [facility] F10.20 Patient discharged. Unknown [address] [address] 12/05/2020 12:00:00 AM EDT eCW1 ([facility]) Outpatient Attender: Solomon Hdz NP [facility] 11/21/2020 01:00:00 AM EDT - 11/21/2020 01:00:00 AM EDT [facility] ([facility]) Outpatient Attender: Solomon Hdz NP [facility] 11/21/2020 01:00:00 AM EDT - 11/21/2020 01:00:00 AM EDT [facility] ([facility]) Attender: Solomon Hdz NP 11/21/2020 12:00:00 AM EDT [facility] ([facility]) Extended Individual Psych[facility] - 45 [facility] 09:00:00 AM EDT - 11/14/2020 09:00:00 AM EDT [facility] ([facility]) Attender: Jessica Leone 11/14/2020 12:00:00 A M EDT [facility] ([facility]) Extended Individual Psychotherapy - 45 min Attender: Atilio Leone [facility] 10/19/2020 08:45:00 AM EST - 10/19/2020 08:45:00 AM EST [facility] ([facility]) Attender: Jessica Leone 10/19/2020 12:00:00 A M EST [facility] ([facility]) Outpatient Attender: Solomon Hdz NP [facility] 10/17/2020 01:00:00 AM EST - 10/17/2020 01:00:00 AM EST [facility] ([facility]) Attender: Solomon Hdz NP 10/17/2020 12:00:00 AM EST [facility] ([facility]) [place] [address] [address] 10/11/2020 12:00:00 AM EST eCW1 ([facility]) Outpatient [address] [address] 10/02/2020 12:00:00 AM EST eCW1 ([facility]) Attender: Jessica Leoen 09/27/2020 12:00:00 A M EST [facility] ([facility]) TEMPMHCTelemed 30" Psychotherapy Attender: Jessica Leone [facility] 09/26/2020 09:00:00 AM EST - 09/26/2020 09:00:00 AM EST [facility] ([facility]) Outpatient [address] [address] 09/14/2020 12:00:00 AM EST [facility] [place] [address] [address] 09/11/2020 12:00:00 AM EST eCW1 ([facility]) Outpatient Attender: Solomon Hdz NP [facility] 09/05/2020 12:30:00 PM EST - 09/05/2020 12:30:00 PM EST [facility] ([facility]) Attender: Solomon Hdz NP 09/05/2020 12:00:00 AM EST [facility] ([facility]) Unknown [address] [address] 08/31/2020 12:00:00 AM EST [facility]CW1 ([facility] [place] [address] [address] 08/30/2020 12:00:00 AM EST [facility]CW1 ([facility] Outpatient [address] [address] 08/30/2020 12:00:00 AM EST eCW1 ([facility]) Extended Individual Psychotherapy - 45 min Attender: Atilio Leone [facility] 08/22/2020 09:00:00 AM EST - 08/22/2020 09:00:00 AM EST [facility] ([facility]) Attender: Jessica Leone 08/22/2020 12:00:00 A M EST [facility] ([facility]) [place] [address] [address] 08/21/2020 12:00:00 AM EST eCW1 ([facility]) Outpatient Attender: Solomon Hdz NP [facility] 07/28/2020 11:30:00 AM EST - 07/28/2020 11:30:00 AM EST [facility] ([facility]) Attender: Solomon Hdz NP 07/28/2020 12:00:00 AM EST [facility] ([facility]) Extended Individual Psychotherapy - 45 min Attender: Atilio Hammondchnadra [facility] 07/25/2020 09:00:00 AM EST - 07/25/2020 09:00:00 AM EST [facility] ([facility]) Attender: Jessica Leone 07/25/2020 12:00:00 A M EST [facility] ([facility]) Outpatient [address] [address] 07/11/2020 12:00:00 AM EST eCW1 ([facility]) Extended Individual Psychotherapy - 45 min Attender: Atilio Hammondsandracarlos [facility] 07/04/2020 09:00:00 AM EST - 07/04/2020 09:00:00 AM EST [facility] ([facility]) Attender: Jessica Leone 07/04/2020 12:00:00 A M EST [facility] ([facility]) [place] [address] [address] 06/21/2020 12:00:00 AM EDT eCW1 ([facility]) Extended Individual Psychotherapy - 45 min Attender: Atilio Hammondsandracarlos [facility] 06/20/2020 09:00:00 AM EDT - 06/20/2020 09:00:00 AM EDT [facility] ([facility]) Attender: Jessica Leone 06/20/2020 12:00:00 A M EDT [facility] ([facility]) Extended Individual Psychotherapy - 45 min Attender: Atilio Hammondsandracarlos [facility] 06/06/2020 12:00:00 PM EDT - 06/06/2020 12:00:00 PM EDT [facility] ([facility]) Attender: Jessica Leone 06/06/2020 12:00:00 A M EDT [facility] ([facility]) Unknown [address] [address] 05/24/2020 12:00:00 AM EDT eCW1 ([facility]) 05/15/2020 01:00:00 AM EDT - 020 10:42:46 AM EDT [facility] ([facility]) [id number]"Psychotherapy [facility] 04/26/2020 09:45:00 AM EDT - 04/26/2020 09:45:00 AM EDT [facility] ([facility]) Inpatient Attender: CASPER YAN SI [facility] MDAttender: Shahzad TAVARES MDAttender: ER PHYSICIAN 04/26/2020 12:50:00 AM EDT [facility] ( in Healthcare facility) Attender: MONALISA BERG MDAttender: Shahzad TAVARES MDAdmitter: Shahzad TAVARES MDConsultant: Rajesh Goddard 04/26/2020 12:50:00 AM EDT [facility] Attender: Jessica Leone 04/26/2020 12:00:00 A M EDT [facility] ([facility]) Inpatient Attender: CASPER YAN [facility] MDAttender: CHELO OCONNOR PAAttender: ER PHYSICIANAdmitter: CHELO KEMP 0 04/25/2020 10:57:28 PM EDT [facility] Inpatient Attender: CASPER YAN SI [facility] MDAttender: Shahzad TAVARES MDAttender: ER PHYSICIANAdmitter: Shahzad TAVARES MD 0 04/25/2020 10:15:00 PM EDT - 05/12/2020 06:21:00 PM EDT GI BLEEDING [facility] GI BLEEDING Patient discharged. Outpatient 04/25/2020 06:20:00 PM EDT GI bleed [facility] GI bleed Inpatient Attender: CRISTIANE LASRON MDAdmitter: CRISTIANE LARSON MD ED-MSP 09/13/2019 11:30:00 AM EST - 09/17/2019 09:15:00 AM EST F1020 [facility] F1020 Patient discharged. Functional Status Immunizations Vaccine Date Status Description Data Source(s) 03/14/2021 12:33:00 PM EDT completed e CW1 ([facility]) 03/14/2021 12:33:00 PM EDT completed e CW1 ([facility]) 03/14/2021 12:33:00 PM EDT completed e CW1 ([facility]) 03/14/2021 12:33:00 PM EDT completed e CW1 ([facility]) 03/14/2021 12:33:00 PM EDT completed e CW1 ([facility]) 03/14/2021 12:33:00 PM EDT completed e CW1 ([facility]) 03/14/2021 12:33:00 PM EDT completed e CW1 ([facility]) 03/14/2021 12:33:00 PM EDT completed e CW1 ([facility]) 03/14/2021 12:33:00 PM EDT completed e CW1 ([facility]) 03/14/2021 12:33:00 PM EDT completed e CW1 ([facility]) 03/14/2021 12:33:00 PM EDT completed e CW1 ([facility]) 03/14/2021 12:33:00 PM EDT completed e CW1 ([facility]) COVID-19 VACCINE Moderna 11/24/2020 12:00:00 AM EDT completed [facility]SIIS Vaccine Series Complete: YESThis Data wa s Submitted to [facility] Via [facility]. COVID-19 VACCINE Moderna 10/27/2020 12:00:00 AM EST completed [facility]IS Vaccine Series Complete: NOThis Data was Submitted to [facility] Via [facility]. Medications Medication Brand Name Start Date Product [...] MOUTH THREE TIMES A DAY SOLD: 06/08/2021 [facility] Citalopram 20 MG Oral Tablet CITALOPRAM HYDROBROMIDE 05/22/2021 12:00:00 AM EDT tablet 30 TAKE 1 TABLET BY MOUTH ONCE A DAY TAKE 1 TABLET BY MOUTH ONCE A DAY SOLD: 05/22/2021 [facility] 2 % 05/04/2021 12:00:00 AM EDT ointment 44 APPLY A THIN LAYER TO RECTAL AREA EXTERNALLY THREE TIMES A DAY FOR 10 DAYS APPLY A THIN LAYER TO RECTAL AREA EXTERNALLY THREE TIMES A DAY FOR 10 DAYS SOLD: 05/07/2021 [facility] Mupirocin 0.02 MG/MG Topical Ointment Mupirocin 2 % Mupiroci n 2 % 05/04/2021 12:00:00 AM EDT active Mupiroci n 2 % eCW1 ([facility]) Mupirocin 0.02 MG/MG Topical Ointment Mupirocin 2 % Mupiroci n 2 % 05/04/2021 12:00:00 AM EDT suspended Mupir ocin 2 % eCW1 ([facility]) 2 % 05/04/2021 12:00:00 AM EDT ointment 44 APPLY A THIN LAYER TO RECTAL AREA EXTERNALLY THREE TIMES A DAY FOR 10 DAYS APPLY A THIN LAYER TO RECTAL AREA EXTERNALLY THREE TIMES A DAY FOR 10 DAYS SOLD: 05/22/2021 [facility] Mupirocin 0.02 MG/MG Topical Ointment Mupirocin 2 % Mupiroci n 2 % 05/04/2021 12:00:00 AM EDT suspended Mupir ocin 2 % eCW1 ([facility]) Mupirocin 0.02 MG/MG Topical Ointment Mupirocin 2 % Mupiroci n 2 % 05/04/2021 12:00:00 AM EDT active Mupiroci n 2 % eCW1 ([facility]) Mupirocin 0.02 MG/MG Topical Ointment Mupirocin 2 % Mupiroci n 2 % 05/04/2021 12:00:00 AM EDT suspended Mupir ocin 2 % eCW1 ([facility]) Mupirocin 0.02 MG/MG Topical Ointment Mupirocin 2 % Mupiroci n 2 % 05/04/2021 12:00:00 AM EDT active Mupiroci n 2 % eCW1 ([facility]) Mupirocin 0.02 MG/MG Topical Ointment Mupirocin 2 % Mupiroci n 2 % 05/04/2021 12:00:00 AM EDT active Mupiroci n 2 % eCW1 ([facility]) Mupirocin 0.02 MG/MG Topical Ointment Mupirocin 2 % Mupiroci n 2 % 05/04/2021 12:00:00 AM EDT active Mupiroci n 2 % eCW1 ([facility]) Mupirocin 0.02 MG/MG Topical Ointment Mupirocin 2 % Mupiroci n 2 % 05/04/2021 12:00:00 AM EDT active Mupiroci n 2 % eCW1 ([facility]) buspirone hydrochloride 10 MG Oral Tablet BUSPIRONE [...] active [facility] 2 MG eCW1 ([facility]) Nicotine 2 MG Chewing Gum [facility] Nicotine 2 MG [facility] Nic[facility] 2 M G 04/13/2021 12:00:00 AM EDT suspended [facility] N icotine 2 MG eCW1 ([facility]) Nicotine 2 MG Chewing Gum [facility] Nicotine 2 MG [facility] Nicotine 2 M G 04/13/2021 12:00:00 AM EDT active [facility]ennifer 2 MG eCW1 ([facility]) 2 mg 04/13/2021 12:00:00 AM EDT gum [...] suspended [facility] ic[facility] 2 MG eCW1 ([facility]) Nicotine 2 MG Chewing Gum [facility] Nicotine 2 MG [facility] Nicotine 2 M G 04/13/2021 12:00:00 AM EDT active [facility]ennifer 2 MG eCW1 ([facility]) Nicotine 2 MG Chewing Gum [facility] Nicotine 2 MG [facility] Nicotine 2 M G 04/13/2021 12:00:00 AM EDT active [facility]ennifer 2 MG eCW1 ([facility]) Nicotine 2 MG Chewing Gum [facility] Nicotine 2 MG [facility] Nicotine 2 M G 04/13/2021 12:00:00 AM EDT suspended [facility] N icotine 2 MG eCW1 ([facility]) ferrous gluconate 324 MG Oral Tablet Ferrous Gluconate 324 (38 Fe) MG Ferrous Gluconate 324 (38 Fe) MG 04/13/2021 12:00:00 AM EDT active Ferrous Gluconate 324 (38 Fe) MG eCW1 ([facility]) Nicotine 2 MG Chewing Gum [facility] Nicotine 2 MG [facility] Nicotine 2 M G 04/13/2021 12:00:00 AM EDT active [facility] Marco jennifer 2 MG eCW1 ([facility]) 324 mg (38 mg iron) 04/13/2021 12:00:00 [...] suspended [facility] icotine 2 MG eCW1 ([facility]) Nicotine 2 MG Chewing Gum [facility] Nicotine 2 MG [facility] Nicotine 2 M G 04/13/2021 12:00:00 AM EDT suspended [facility] ic[facility] 2 MG eCW1 ([facility]) Nicotine 2 MG Chewing Gum [facility] Nicotine 2 MG [facility] Nicotine 2 M G 04/13/2021 12:00:00 AM EDT active [facility]ennifer 2 MG eCW1 ([facility]) ferrous gluconate 324 MG Oral Tablet Ferrous Gluconate 324 (38 Fe) MG Ferrous Gluconate 324 (38 Fe) MG 04/13/2021 12:00:00 AM EDT active Ferrous Gluconate 324 (38 Fe) MG eCW1 ([facility]) 80 mg 03/21/2021 12:00:00 AM EDT tablet [...] 1 mg by mouth completed <td ID="Medicat ionRxNorm_4">641950</td><td ID="MedicationMedication_4">prazosin</td><td ID="MedicationRoute_4">by mouth</td><td ID="MedicationRouteConcept_4">X14764</td><td ID="MedicationStartDate_4">01/16/2021</td><td ID="MedicationStopDate_4">04/16/2021</td><td ID="MedicationDosageFrequency_4">at bedtime</td><td ID="MedicationDuration_4">30</td><td ID="MedicationFormulaStrength_4">1 mg</td><td ID="MedicationDosageForm_4">capsule</td><td ID="MedicationDosageFormCode_4"></td><td ID="MedicationDosageDescription_4"></td><td ID="MedicationMedicationId_4">[id number]</td><td ID="MedicationAccount_4">[id number]</td><td ID="MedicationNpid_4">[id number]</td><td ID="MedicationAuthorFirstName_4">Solomon</td><td ID="MedicationAuthorLastName_4">Hdz</td><td ID="MedicationTaxonomyCode_4">[id number]</td><td ID="MedicationTaxonomyDesc_4">Nurse Practitioner</td><td ID="MedicationPhoneNumber_4">[phone]</td> [facility] 15 mg 01/08/2021 12:00:00 AM EDT tablet 30 TAKE ONE TABLET BY MOUTH AT BEDTIME TAKE ONE TABLET BY MOUTH AT BEDTIME SOLD: 01/12/2021 [facility] Citalopram 20 MG Oral Tablet CITALOPRAM HYDROBROMIDE 12/07/2020 12:00:00 AM EDT tablet 30 TAKE 1 TABLET BY MOUTH ONCE A DAY TAKE 1 TABLET BY MOUTH ONCE A DAY SOLD: 12/10/2020 [facility] buspirone hydrochloride 10 MG Oral Tablet BUSPIRONE HCL 12/07/2020 12:00:00 AM EDT tablet 60 TAKE ONE TABLET BY MOUTH TWI CE A DAY TAKE ONE TABLET BY MOUTH TWICE A DAY SOLD: 12/10/2020 [facility] 15 mg 10/18/2020 12:00:00 AM [...] BY MOUTH ONCE A DAY SOLD: 10/09/2020 [facility] buspirone hydrochloride 10 MG Oral Tablet BUSPIRONE HCL 10/04/2020 12:00:00 AM EST tablet 60 TAKE ONE TABLET BY MOUTH TWI CE A DAY TAKE ONE TABLET BY MOUTH TWICE A DAY SOLD: 11/09/2020 [facility] Citalopram 20 MG Oral Tablet [...] TABLET BY MOUTH AT BEDTIME SOLD: 10/09/2020 [facility] Citalopram 20 MG Oral Tablet citalopram 10/03/2020 12:00:00 AM EST 20 mg completed <td ID="Medicati onRxNorm_2">[id number]</td><td ID="MedicationMedication_2">citalopram</td><td ID="MedicationRoute_2"></td><td ID="MedicationRouteConcept_2"></td><td ID="MedicationStartDate_2">10/03/2020</td><td ID="MedicationStopDate_2"></td><td ID="MedicationDosageFrequency_2"></td><td ID="MedicationDuration_2">30</td><td ID="MedicationFormulaStrength_2">20 mg</td><td ID="MedicationDosageForm_2">tablet</td><td ID="MedicationDosageFormCode_2"></td><td ID="MedicationDosageDescription_2"></td><td ID="MedicationMedicationId_2">[id number]</td><td ID="MedicationAccount_2">[id number]</td><td ID="MedicationNpid_2">[id number]</td><td ID="MedicationAuthorFirstName_2">Solomon</td><td ID="MedicationAuthorLastName_2">Hdz</td><td ID="MedicationTaxonomyCode_2">[id number]</td><td ID="MedicationTaxonomyDesc_2">Nurse Practitioner</td><td ID="MedicationPhoneNumber_2">[phone]</td> [facility] ([facility]) Citalopram 20 MG Oral Tablet citalopram 10/03/2020 12:00:00 AM EST 20 mg by mouth completed <td ID="Medica tionRxNorm_2">[id number]</td><td ID="MedicationMedication_2">citalopram</td><td ID="MedicationRoute_2">by mouth</td><td ID="MedicationRouteConcept_2">X24655</td><td ID="MedicationStartDate_2">10/03/2020</td><td ID="MedicationStopDate_2">07/17/2021</td><td ID="MedicationDosageFrequency_2">once a day</td><td ID="MedicationDuration_2">30</td><td ID="MedicationFormulaStrength_2">20 mg</td><td ID="MedicationDosageForm_2">tablet</td><td ID="MedicationDosageFormCode_2"></td><td ID="MedicationDosageDescription_2"></td><td ID="MedicationMedicationId_2">[id number]</td><td ID="MedicationAccount_2">[id number]</td><td ID="MedicationNpid_2">[id number]</td><td ID="MedicationAuthorFirstName_2">Solomon</td><td ID="MedicationAuthorLastName_2">Hdz</td><td ID="MedicationTaxonomyCode_2">[id number]</td><td ID="MedicationTaxonomyDesc_2">Nurse Practitioner</td><td ID="MedicationPhoneNumber_2">[phone]</td> [facility] ([facility]) buspirone hydrochloride 10 MG Oral Tablet buspirone 2020 12:00:00 AM EST 10 mg completed <td ID="Medica tionRxNorm_3">872814</td><td ID="MedicationMedication_3">buspirone</td><td ID="MedicationRoute_3"></td><td ID="MedicationRouteConcept_3"></td><td ID="MedicationStartDate_3">10/03/2020</td><td ID="MedicationStopDate_3">07/17/2021</td><td ID="MedicationDosageFrequency_3"></td><td ID="MedicationDuration_3">30</td><td ID="MedicationFormulaStrength_3">10 mg</td><td ID="MedicationDosageForm_3">tablet</td><td ID="MedicationDosageFormCode_3"></td><td ID="MedicationDosageDescription_3"></td><td ID="MedicationMedicationId_3">[id number]</td><td ID="MedicationAccount_3">[id number]</td><td ID="MedicationNpid_3">[id number]</td><td ID="MedicationAuthorFirstName_3">Solomon</td><td ID="MedicationAuthorLastName_3">Hdz</td><td ID="MedicationTaxonomyCode_3">[id number]</td><td ID="MedicationTaxonomyDesc_3">Nurse Practitioner</td><td ID="MedicationPhoneNumber_3">[phone]</td> [facility] [facility] Mirtazapine 15 MG Oral Tablet mirtazapine 10/03/2020 12:00:00 AM EST 15 mg completed <td ID="Medicat ionRxNorm_1">851392</td><td ID="MedicationMedication_1">mirtazapine</td><td ID="MedicationRoute_1"></td><td ID="MedicationRouteConcept_1"></td><td ID="MedicationStartDate_1">10/03/2020</td><td ID="MedicationStopDate_1">07/17/2021</td><td ID="MedicationDosageFrequency_1"></td><td ID="MedicationDuration_1">30</td><td ID="MedicationFormulaStrength_1">15 mg</td><td ID="MedicationDosageForm_1">tablet</td><td ID="MedicationDosageFormCode_1"></td><td ID="MedicationDosageDescription_1"></td><td ID="MedicationMedicationId_1">[id number]</td><td ID="MedicationAccount_1">[id number]</td><td ID="MedicationNpid_1">[id number]</td><td ID="MedicationAuthorFirstName_1">Solomon</td><td ID="MedicationAuthorLastName_1">Hdz</td><td ID="MedicationTaxonomyCode_1">[id number]</td><td ID="MedicationTaxonomyDesc_1">Nurse Practitioner</td><td ID="MedicationPhoneNumber_1">[phone]</td> [facility] ([facility]) 80 mg 09/06/2020 12:00:00 AM EST tablet [...] DAY SOLD: 12/10/2020 [facility] Prolia 60mg/ml K 09/01/2020 12:00:00 AM EST active Prolia 60mg/ml eCW1 ([facility]) Prolia 60mg/ml K 09/01/2020 12:00:00 AM EST active Prolia 60mg/ml eCW1 ([facility]) Prolia 60mg/ml UNK 09/01/2020 12:00:00 AM EST active Prolia 60mg/ml eCW1 ([facility]) Prolia 60mg/ml K 09/01/2020 12:00:00 AM EST active Prolia 60mg/ml eCW1 ([facility]) Prolia 60mg/ml K 09/01/2020 12:00:00 AM EST active Prolia 60mg/ml eCW1 ([facility]) Prolia 60mg/ml UNK 09/01/2020 12:00:00 AM EST active Prolia 60mg/ml eCW1 ([facility]) Prolia 60mg/ml UNK 09/01/2020 12:00:00 AM EST active Prolia 60mg/ml eCW1 ([facility]) Prolia 60mg/ml UNK 09/01/2020 12:00:00 AM EST active Prolia 60mg/ml eCW1 ([facility]) Prolia 60mg/ml UNK 09/01/2020 12:00:00 AM EST active Prolia 60mg/ml eCW1 ([facility]) Prolia 60mg/ml UNK 09/01/2020 12:00:00 AM EST active Prolia 60mg/ml eCW1 ([facility]) Prolia 60mg/ml UNK 09/01/2020 12:00:00 AM EST active Prolia 60mg/ml eCW1 ([facility]) Prolia 60mg/ml UNK 09/01/2020 12:00:00 AM EST active Prolia 60mg/ml eCW1 ([facility]) Prolia 60mg/ml UNK 09/01/2020 12:00:00 AM EST active Prolia 60mg/ml eCW1 ([facility]) Prolia 60mg/ml UNK 09/01/2020 12:00:00 AM EST active Prolia 60mg/ml eCW1 ([facility]) Prolia 60mg/ml UNK 09/01/2020 12:00:00 AM EST active Prolia 60mg/ml eCW1 ([facility]) Prolia 60mg/ml UNK 09/01/2020 12:00:00 AM EST active Prolia 60mg/ml eCW1 ([facility]) Prolia 60mg/ml K 09/01/2020 12:00:00 AM EST active Prolia 60mg/ml eCW1 ([facility]) Prolia 60mg/ml UNK 09/01/2020 12:00:00 AM EST active Prolia 60mg/ml eCW1 ([facility]) Prolia 60mg/ml UNK 09/01/2020 12:00:00 AM EST active Prolia 60mg/ml eCW1 ([facility]) 2.5 % 09/01/2020 12:00:00 AM EST cream with perineal carmen licator 28 APPLY 1 APPLICATION EXTERNALLY TO AFFECTED AREA(S) TWICE A DAY NEEDED FOR 7 DAYS APPLY 1 APPLICATION EXTERNALLY TO AFFECTED AREA(S) TWICE A DAY NEEDED FOR 7 DAYS SOLD: 09/06/2020 [facility] Prolia 60mg/ml K 09/01/2020 12:00:00 AM EST active Prolia 60mg/ml eCW1 ([facility]) Prolia 60mg/ml UNK 09/01/2020 12:00:00 AM EST active Prolia 60mg/ml eCW1 ([facility]) Prolia 60mg/ml UNK 09/01/2020 12:00:00 AM EST active Prolia 60mg/ml eCW1 ([facility]) Prolia 60mg/ml UNK 09/01/2020 12:00:00 AM EST active Prolia 60mg/ml eCW1 ([facility]) Prolia 60mg/ml UNK 09/01/2020 12:00:00 AM EST active Prolia 60mg/ml eCW1 ([facility]) Prolia 60mg/ml UNK 09/01/2020 12:00:00 AM EST active Prolia 60mg/ml eCW1 ([facility]) ferrous gluconate 324 MG Oral Tablet Ferrous Gluconate 324 (38 Fe) MG Ferrous Gluconate 324 (38 Fe) MG 08/31/2020 12:00:00 AM EST active Ferrous Gluconate 324 (38 Fe) MG eCW1 ([facility]) ferrous gluconate 324 MG Oral Tablet Ferrous Gluconate 324 (38 Fe) MG Ferrous Gluconate 324 (38 Fe) MG 08/31/2020 12:00:00 AM EST active Ferrous Gluconate 324 (38 Fe) MG eCW1 ([facility]) ferrous gluconate 324 MG Oral Tablet Ferrous Gluconate 324 (38 Fe) MG Ferrous Gluconate 324 (38 Fe) MG 08/31/2020 12:00:00 AM EST active Ferrous Gluconate 324 (38 Fe) MG eCW1 ([facility]) ferrous gluconate 324 MG Oral Tablet Ferrous Gluconate 324 (38 Fe) MG Ferrous Gluconate 324 (38 Fe) MG 08/31/2020 12:00:00 AM EST active Ferrous Gluconate 324 (38 Fe) MG eCW1 ([facility]) ferrous gluconate 324 MG Oral Tablet Ferrous Gluconate 324 (38 Fe) MG Ferrous Gluconate 324 (38 Fe) MG 08/31/2020 12:00:00 AM EST active Ferrous Gluconate 324 (38 Fe) MG eCW1 ([facility]) ferrous gluconate 324 MG Oral Tablet Ferrous Gluconate 324 (38 Fe) MG Ferrous Gluconate 324 (38 Fe) MG 08/31/2020 12:00:00 AM EST active Ferrous Gluconate 324 (38 Fe) MG eCW1 ([facility]) ferrous gluconate 324 MG Oral Tablet Ferrous Gluconate 324 (38 Fe) MG Ferrous Gluconate 324 (38 Fe) MG 08/31/2020 12:00:00 AM EST active Ferrous Gluconate 324 (38 Fe) MG eCW1 ([facility]) ferrous gluconate 324 MG Oral Tablet Ferrous Gluconate 324 (38 Fe) MG Ferrous Gluconate 324 (38 Fe) MG 08/31/2020 12:00:00 AM EST active Ferrous Gluconate 324 (38 Fe) MG eCW1 ([facility]) ferrous gluconate 324 MG Oral Tablet Ferrous Gluconate 324 (38 Fe) MG Ferrous Gluconate 324 (38 Fe) MG 08/31/2020 12:00:00 AM EST active Ferrous Gluconate 324 (38 Fe) MG eCW1 ([facility]) ferrous gluconate 324 MG Oral Tablet Ferrous Gluconate 324 (38 Fe) MG Ferrous Gluconate 324 (38 Fe) MG 08/31/2020 12:00:00 AM EST active Ferrous Gluconate 324 (38 Fe) MG W1 ([facility]) ferrous gluconate 324 MG Oral Tablet Ferrous Gluconate 324 (38 Fe) MG Ferrous Gluconate 324 (38 Fe) MG 08/31/2020 12:00:00 AM EST active Ferrous Gluconate 324 (38 Fe) MG eCW1 ([facility]) ferrous gluconate 324 MG Oral Tablet Ferrous Gluconate 324 (38 Fe) MG Ferrous Gluconate 324 (38 Fe) MG 08/31/2020 12:00:00 AM EST active Ferrous Gluconate 324 (38 Fe) MG eCW1 ([facility]) ferrous gluconate 324 MG Oral Tablet Ferrous Gluconate 324 (38 Fe) MG Ferrous Gluconate 324 (38 Fe) MG 08/31/2020 12:00:00 AM EST active Ferrous Gluconate 324 (38 Fe) MG eCW1 ([facility]) ferrous gluconate 324 MG Oral Tablet Ferrous Gluconate 324 (38 Fe) MG Ferrous Gluconate 324 (38 Fe) MG 08/31/2020 12:00:00 AM EST active Ferrous Gluconate 324 (38 Fe) MG eCW1 ([facility]) ferrous gluconate 324 MG Oral Tablet Ferrous Gluconate 324 (38 Fe) MG Ferrous Gluconate 324 (38 Fe) MG 08/31/2020 12:00:00 AM EST active Ferrous Gluconate 324 (38 Fe) MG eCW1 ([facility]) ferrous gluconate 324 MG Oral Tablet Ferrous Gluconate 324 (38 Fe) MG Ferrous Gluconate 324 (38 Fe) MG 08/31/2020 12:00:00 AM EST active Ferrous Gluconate 324 (38 Fe) MG eCW1 ([facility]) ferrous gluconate 324 MG Oral Tablet Ferrous Gluconate 324 (38 Fe) MG Ferrous Gluconate 324 (38 Fe) MG 08/31/2020 12:00:00 AM EST active Ferrous Gluconate 324 (38 Fe) MG eCW1 ([facility]) ferrous gluconate 324 MG Oral Tablet Ferrous Gluconate 324 (38 Fe) MG Ferrous Gluconate 324 (38 Fe) MG 08/31/2020 12:00:00 AM EST active Ferrous Gluconate 324 (38 Fe) MG eCW1 ([facility]) ferrous gluconate 324 MG Oral Tablet Ferrous Gluconate 324 (38 Fe) MG Ferrous Gluconate 324 (38 Fe) MG 08/31/2020 12:00:00 AM EST active Ferrous Gluconate 324 (38 Fe) MG eCW1 ([facility]) ferrous gluconate 324 MG Oral Tablet Ferrous Gluconate 324 (38 Fe) MG Ferrous Gluconate 324 (38 Fe) MG 08/31/2020 12:00:00 AM EST active Ferrous Gluconate 324 (38 Fe) MG eCW1 ([facility]) ferrous gluconate 324 MG Oral Tablet Ferrous Gluconate 324 (38 Fe) MG Ferrous Gluconate 324 (38 Fe) MG 08/31/2020 12:00:00 AM EST active Ferrous Gluconate 324 (38 Fe) MG eCW1 ([facility]) ferrous gluconate 324 MG Oral Tablet Ferrous Gluconate 324 (38 Fe) MG Ferrous Gluconate 324 (38 Fe) MG 08/31/2020 12:00:00 AM EST active Ferrous Gluconate 324 (38 Fe) MG eCW1 ([facility]) 324 mg (38 mg iron) 08/31/2020 12:00:00 [...] Ferrous Gluconate 324 (38 Fe) MG eCW1 ([facility]) ferrous gluconate 324 MG Oral Tablet Ferrous Gluconate 324 (38 Fe) MG Ferrous Gluconate 324 (38 Fe) MG 08/31/2020 12:00:00 AM EST active Ferrous Gluconate 324 (38 Fe) MG eCW1 ([facility]) ferrous gluconate 324 MG Oral Tablet Ferrous Gluconate 324 (38 Fe) MG Ferrous Gluconate 324 (38 Fe) MG 08/31/2020 12:00:00 AM EST active Ferrous Gluconate 324 (38 Fe) MG eCW1 ([facility]) ferrous gluconate 324 MG Oral Tablet Ferrous Gluconate 324 (38 Fe) MG Ferrous Gluconate 324 (38 Fe) MG 08/31/2020 12:00:00 AM EST active Ferrous Gluconate 324 (38 Fe) MG W1 ([facility]) ferrous gluconate 324 MG Oral Tablet Ferrous Gluconate 324 (38 Fe) MG Ferrous Gluconate 324 (38 Fe) MG 08/31/2020 12:00:00 AM EST active Ferrous Gluconate 324 (38 Fe) MG W1 ([facility]) buspirone hydrochloride 10 MG Oral Tablet BUSPIRONE HCL 06/30/2020 12:00:00 AM EST tablet 60 TAKE ONE TABLET BY MOUTH TWI CE A DAY TAKE ONE TABLET BY MOUTH TWICE A DAY SOLD: 09/06/2020 [facility] Citalopram 20 MG Oral Tablet [...] TABLET BY MOUTH AT BEDTIME SOLD: 09/06/2020 [facility] Mirtazapine 7.5 MG Oral Tablet mirtazapine 06/30/2020 12:00:00 AM EST 7.5 mg by mouth completed <td ID="Medica tionRxNorm_2">000079</td><td ID="MedicationMedication_2">mirtazapine</td><td ID="MedicationRoute_2">by mouth</td><td ID="MedicationRouteConcept_2">L53422</td><td ID="MedicationStartDate_2">06/30/2020</td><td ID="MedicationStopDate_2">09/28/2020</td><td ID="MedicationDosageFrequency_2">at bedtime</td><td ID="MedicationDuration_2">30</td><td ID="MedicationFormulaStrength_2">7.5 mg</td><td ID="MedicationDosageForm_2">tablet</td><td ID="MedicationDosageFormCode_2"></td><td ID="MedicationDosageDescription_2"></td><td ID="MedicationMedicationId_2">[id number]</td><td ID="MedicationAccount_2">[id number]</td><td ID="MedicationNpid_2">[id number]</td><td ID="MedicationAuthorFirstName_2">Solomon</td><td ID="MedicationAuthorLastName_2">Hdz</td><td ID="MedicationTaxonomyCode_2">[id number]</td><td ID="MedicationTaxonomyDesc_2">Nurse Practitioner</td><td ID="MedicationPhoneNumber_2">[phone]</td> [facility] ([facility]) Citalopram 20 MG Oral Tablet CITALOPRAM HYDROBROMIDE [...] 10 mg by mouth completed <td ID="Medic ationRxNorm_3">649281</td><td ID="MedicationMedication_3">buspirone</td><td ID="MedicationRoute_3">by mouth</td><td ID="MedicationRouteConcept_3">H64740</td><td ID="MedicationStartDate_3">06/30/2020</td><td ID="MedicationStopDate_3">09/28/2020</td><td ID="MedicationDosageFrequency_3">twice a day</td><td ID="MedicationDuration_3">30</td><td ID="MedicationFormulaStrength_3">10 mg</td><td ID="MedicationDosageForm_3">tablet</td><td ID="MedicationDosageFormCode_3"></td><td ID="MedicationDosageDescription_3"></td><td ID="MedicationMedicationId_3">[id number]</td><td ID="MedicationAccount_3">[id number]</td><td ID="MedicationNpid_3">[id number]</td><td ID="MedicationAuthorFirstName_3">Solomon</td><td ID="MedicationAuthorLastName_3">Hdz</td><td ID="MedicationTaxonomyCode_3">[id number]</td><td ID="MedicationTaxonomyDesc_3">Nurse Practitioner</td><td ID="MedicationPhoneNumber_3">[phone]</td> [facility] ([facility]) Citalopram 20 MG Oral Tablet citalopram 06/30/2020 12:00:00 AM EST 20 mg by mouth completed <td ID="Medica tionRxNorm_1">266408</td><td ID="MedicationMedication_1">citalopram</td><td ID="MedicationRoute_1">by mouth</td><td ID="MedicationRouteConcept_1">F12575</td><td ID="MedicationStartDate_1">06/30/2020</td><td ID="MedicationStopDate_1">09/28/2020</td><td ID="MedicationDosageFrequency_1">once a day</td><td ID="MedicationDuration_1">30</td><td ID="MedicationFormulaStrength_1">20 mg</td><td ID="MedicationDosageForm_1">tablet</td><td ID="MedicationDosageFormCode_1"></td><td ID="MedicationDosageDescription_1"></td><td ID="MedicationMedicationId_1">[id number]</td><td ID="MedicationAccount_1">[id number]</td><td ID="MedicationNpid_1">[id number]</td><td ID="MedicationAuthorFirstName_1">Solomon</td><td ID="MedicationAuthorLastName_1">Hdz</td><td ID="MedicationTaxonomyCode_1">[id number]</td><td ID="MedicationTaxonomyDesc_1">Nurse Practitioner</td><td ID="MedicationPhoneNumber_1">[phone]</td> [facility] ([facility]) Hydrocortisone 25 MG/ML Topical Cream Hydrocortisone ( Perianal) 2.5 % Hydrocortisone (Perianal) 2.5 % 06/21/2020 12:00:00 AM EDT 1.0 { application} active Hydrocortisone (Mely anal) 2.5 % eCW1 ([facility]) Hydrocortisone 25 MG/ML Topical Cream Hydrocortisone ( Perianal) 2.5 % Hydrocortisone (Perianal) 2.5 % 06/21/2020 12:00:00 AM EDT 1.0 { application} active Hydrocortisone (Mely anal) 2.5 % eCW1 ([facility]) Hydrocortisone 25 MG/ML Topical Cream Hydrocortisone ( Perianal) 2.5 % Hydrocortisone (Perianal) 2.5 % 06/21/2020 12:00:00 AM EDT 1.0 { application} active Hydrocortisone (Mely anal) 2.5 % eCW1 ([facility]) Hydrocortisone 25 MG/ML Topical Cream Hydrocortisone ( Perianal) 2.5 % Hydrocortisone (Perianal) 2.5 % 06/21/2020 12:00:00 AM EDT 1.0 { application} active Hydrocortisone (Mely anal) 2.5 % eCW1 ([facility]) Hydrocortisone 25 MG/ML Topical Cream Hydrocortisone ( Perianal) 2.5 % Hydrocortisone (Perianal) 2.5 % 06/21/2020 12:00:00 AM EDT 1.0 { application} active Hydrocortisone (Mely anal) 2.5 % eCW1 ([facility]) Hydrocortisone 25 MG/ML Topical Cream Hydrocortisone ( Perianal) 2.5 % Hydrocortisone (Perianal) 2.5 % 06/21/2020 12:00:00 AM EDT 1.0 { application} active Hydrocortisone (Mely anal) 2.5 % eCW1 ([facility]) Hydrocortisone 25 MG/ML Topical Cream Hydrocortisone ( Perianal) 2.5 % Hydrocortisone (Perianal) 2.5 % 06/21/2020 12:00:00 AM EDT 1.0 { application} active Hydrocortisone (Mely anal) 2.5 % eCW1 ([facility]) Hydrocortisone 25 MG/ML Topical Cream Hydrocortisone ( Perianal) 2.5 % Hydrocortisone (Perianal) 2.5 % 06/21/2020 12:00:00 AM EDT 1.0 { application} active Hydrocortisone (Mely anal) 2.5 % eCW1 ([facility]) 2.5 % 06/21/2020 12:00:00 AM EDT cream [...] active Hydrocortisone (Mely anal) 2.5 % eCW1 ([facility]) Hydrocortisone 25 MG/ML Topical Cream Hydrocortisone ( Perianal) 2.5 % Hydrocortisone (Perianal) 2.5 % 06/21/2020 12:00:00 AM EDT 1.0 { application} active Hydrocortisone (Mely anal) 2.5 % eCW1 ([facility]) Hydrocortisone 25 MG/ML Topical Cream Hydrocortisone ( Perianal) 2.5 % Hydrocortisone (Perianal) 2.5 % 06/21/2020 12:00:00 AM EDT 1.0 { application} active Hydrocortisone (Mely anal) 2.5 % eCW1 ([facility]) Hydrocortisone 25 MG/ML Topical Cream Hydrocortisone ( Perianal) 2.5 % Hydrocortisone (Perianal) 2.5 % 06/21/2020 12:00:00 AM EDT 1.0 { application} active Hydrocortisone (Mely anal) 2.5 % eCW1 ([facility]) Hydrocortisone 25 MG/ML Topical Cream Hydrocortisone ( Perianal) 2.5 % Hydrocortisone (Perianal) 2.5 % 06/21/2020 12:00:00 AM EDT 1.0 { application} active Hydrocortisone (Mely anal) 2.5 % eCW1 ([facility]) Hydrocortisone 25 MG/ML Topical Cream Hydrocortisone ( Perianal) 2.5 % Hydrocortisone (Perianal) 2.5 % 06/21/2020 12:00:00 AM EDT 1.0 { application} active Hydrocortisone (Mely anal) 2.5 % eCW1 ([facility]) Hydrocortisone 25 MG/ML Topical Cream Hydrocortisone ( Perianal) 2.5 % Hydrocortisone (Perianal) 2.5 % 06/21/2020 12:00:00 AM EDT 1.0 { application} active Hydrocortisone (Mely anal) 2.5 % eCW1 ([facility]) Hydrocortisone 25 MG/ML Topical Cream Hydrocortisone ( Perianal) 2.5 % Hydrocortisone (Perianal) 2.5 % 06/21/2020 12:00:00 AM EDT 1.0 { application} active Hydrocortisone (Mely anal) 2.5 % eCW1 ([facility]) Hydrocortisone 25 MG/ML Topical Cream Hydrocortisone ( Perianal) 2.5 % Hydrocortisone (Perianal) 2.5 % 06/21/2020 12:00:00 AM EDT 1.0 { application} active Hydrocortisone (Mely anal) 2.5 % eCW1 ([facility]) Hydrocortisone 25 MG/ML Topical Cream Hydrocortisone ( Perianal) 2.5 % Hydrocortisone (Perianal) 2.5 % 06/21/2020 12:00:00 AM EDT 1.0 { application} active Hydrocortisone (Mely anal) 2.5 % eCW1 ([facility]) Hydrocortisone 25 MG/ML Topical Cream Hydrocortisone ( Perianal) 2.5 % Hydrocortisone (Perianal) 2.5 % 06/21/2020 12:00:00 AM EDT 1.0 { application} active Hydrocortisone (Mely anal) 2.5 % eCW1 ([facility]) Hydrocortisone 25 MG/ML Topical Cream Hydrocortisone ( Perianal) 2.5 % Hydrocortisone (Perianal) 2.5 % 06/21/2020 12:00:00 AM EDT 1.0 { application} active Hydrocortisone (Mely anal) 2.5 % eCW1 ([facility]) Hydrocortisone 25 MG/ML Topical Cream Hydrocortisone ( Perianal) 2.5 % Hydrocortisone (Perianal) 2.5 % 06/21/2020 12:00:00 AM EDT 1.0 { application} active Hydrocortisone (Mely anal) 2.5 % eCW1 ([facility]) Hydrocortisone 25 MG/ML Topical Cream Hydrocortisone ( Perianal) 2.5 % Hydrocortisone (Perianal) 2.5 % 06/21/2020 12:00:00 AM EDT 1.0 { application} active Hydrocortisone (Mely anal) 2.5 % eCW1 ([facility]) Hydrocortisone (Perianal) 1 % Hydrocortisone (Perianal) 04/26 01:00:00 AM EDT completed [facility] ([facility]) Vagisil Maximum Strength 20-3 % Vagisil Maximum Strength 01:00:00 AM EDT completed [facility] ([facility]) Cranberry Ultra Strength 250-60 MG Cranberry Ultra Strength 05/18/2020 01:00:00 AM EDT completed [facility] ([facility]) Calcium 600+D3 600-800 MG-UNIT Calcium 600+D3 05/15/2020 01:00:00 AM E DT completed [facility] ([facility]) Vitamin D3 1000 UNIT Vitamin D3 05/15/2020 01:00:00 AM EDT completed [facility] ([facility]) Sucralfate 1 GM Sucralfate 05/15/2020 01:00:00 AM EDT completed [facility] ([facility]) Ibuprofen 200 MG Ibuprofen 05/15/2020 01:00:00 AM EDT completed [facility] ([facility]) Aleve 220 MG Aleve 05/15/2020 01:00:00 AM EDT comp leted [facility] ([facility]) Benadryl Allergy 25 MG Benadryl Allergy 05/15/2020 01:00:00 AM EDT completed [facility] ([facility]) C-1000 1000 MG C-1000 05/15/2020 01:00:00 AM EDT c ompleted [facility] ([facility]) Tums Extra Strength 750 750 MG Tums Extra Strength 750 05/15 01:00:00 AM EDT completed [facility] ([facility]) Melatonin 10 MG Melatonin 05/15/2020 01:00:00 AM EDT completed [facility] ([facility]) Stress B Complex/Iron Stress B Complex/Iron 05/15/2020 01:00:00 AM EDT completed [facility] ([facility]) Neosporin Original Neosporin Original 05/15/2020 01:00:00 AM EDT completed [facility] ([facility]) Pantoprazole Sodium 40 MG Pantoprazole Sodium 05/15/2020 01:00:00 AM E DT completed [facility] ([facility]) Eliquis 2.5 MG Eliquis 05/15/2020 01:00:00 AM EDT 1.0 {tablet} completed [facility] ([facility]) Citalopram Hydrobromide 20 MG Citalopram Hydrobromide 2019 01:00:00 AM EDT completed [facility] ([facility]) Atorvastatin Calcium 80 MG Atorvastatin Calcium 05/15/2020 01:00:00 A M EDT completed [facility] ( [facility]) 1 gram 05/13/2020 12:00:00 AM EDT tablet 120 TAKE ONE TABLET BY MOUTH FOUR TIMES A DAY TAKE ONE TABLET BY MOUTH FOUR TIMES A DAY SOLD: 05/14/2020 [facility] 40 mg 05/13/2020 12:00:00 AM EDT tablet,delayed release (DR/EC) 60 TAKE ONE TABLET BY MOUTH EVERY 12 HOURS TAKE ONE TABLET BY MOUTH EVERY 12 HOURS SOLD: 05/14/2020 [facility] atorvastatin 80 MG Oral Tablet ATORVASTATIN [...] type / Coverage type Policy ID Covered alliance party ID Covered alliance party's relationship to nielsen Policy Nielsen Plan Information [facility] COMMUNITY PLAN [facility] [id number] SP [id number] [facility] PLAN [facility] [id number] SP [id number] [facility] PLAN [facility] [id number] SP [id number] MEDICARE [id number] S [id number] [facility] Community Plan Commercial [id number] Self [id number] [facility] Community Plan Commercial [id number] Self [id number] EMEDNY [id number] SP [id number] [facility] [id number] SP [id number] [facility] MEDICARE [id number] S [id number] MEDICAID [id number] MEDICARE JOSHUA [id number] S [id number] [facility] HEA [id number] S [id number] MEDICAID [id number] [id number] [id number] S [id number] MEDICAID [id number] SP [id number] [facility] COMMUNTY PLAN [id number] 18 [id number] [place] [facility] [id number] [facility] COMMUNITY PLAN [id number] 18 [id number] [facility] Community Plan Commercial [id number] Self [id number] Medicaid [facility] Medicaid [id number] Self [id number] [facility] Communty Plan Medicaid [id number] Self [id number] [facility] COMMUNITY PLAN XIX [id number] 18 [id number] MEDICAID -[id number] 1 [id number] [facility] COMMUNTY PLAN [id number] 18 [id number] [facility] Community Plan Commercial [id number] Self 1 [id number] Medicaid [facility] Medicaid [id number] Self [id number] [facility] Communty Plan Medicaid [id number] Self [id number] [facility] Community Plan Commercial [id number] Self 1 [id number] Medicaid [facility] Medicaid [id number] Self [id number] [facility] Communty Plan Medicaid [id number] Self [id number] [facility] [employer] UN MEDICARE O/P [id number] 18 [id number] Medicaid [place] [facility] Medicaid [id number] Self [id number] [facility] Communty Plan Medicaid [id number] Self [id number] [facility] Community Plan Commercial [id number] Self [id number] MEDICAID -O/P EMERGENCY ROOM [id number] UN COMMUNITY PLAN MCDO [id number] SP [id number] MEDICARE [id number] SP [id number] A UN COMMUNITY PLAN [facility] [id number] SP [id number] [facility] Medigap Part B [id number] Self [id number] [place] Medigap Part B [id number] Self [id number] [facility] Medigap Part B [id number] Self [id number] [place] [id number] .[id number] Self [id number] [place] [facility] [place] [id number] [id number] Self [id number] [facility] Communty Plan Medicaid [id number] .[id number] Self [id number] MEDICAID -CLINIC [id number] [facility] MEDICARE-PHYSICIAN [id number] 18 [id number] MEDICARE COMPLETE-[facility] O [id number] S [id number] [facility] Communty Plan Medicaid [id number] .[id number] Self [id number] SELF PAY ONLY [id number] SP [id number] COMMUNITY PLAN [facility] [id number] SP [id number] ALLSTATE INS CO NO FAULT O UN [id number] S UN ALLSTATE INS CO NO FAULT UN SI2 UN ALLSTATE INS CO NO FAULT [id number] [place] Medicaid [id number] Self ALLSTATE INS CO NO FAULT O [id number] S [id number] [facility] MEDICAID [id number] SP [id number] N SELF PAY ONLY UNAVAILABLE SP UNAV AILABLE [facility] [id number] SP [id number] [facility] [id number] SP [id number] MEDICARE [id number] S [id number] MEDICAID [id number] S [id number] [facility] MEDICARE [id number] S [id number] [place] [id number] SP [id number] [facility]) O [id number] S [id number] MEDICAID M [id number] S [id number] MEDICAID HEA [id number] S [id number] Problems, Conditions, and Diagnoses Code Display Name Description Problem Type Effective Dates Data Source(s) Z53.29 Procedure and treatment not carried out because of patient's decision for other reasons PROC/TRTMT NOT CRD OUT BEC PT DECISION FOR OTH REASONS Diagn osis 12/05/2020 07:41:00 PM EDT [facility] F10.20 Alcohol dependence, uncomplicated ALCOHOL DEPEND ENCE, UNCOMPLICATED Diagnosis 12/05/2020 07:41:00 PM EDT [facility] GI bleed GI bleed Diagnosis 04/25/2020 06:20:00 PM ED [facility] F43.9 Reaction to severe stress, unspecified U nspecified Trauma- and Stressor- Related Disorder Condition 06/20/2021 12:00:00 AM EDT [facility] ( [facility]) F41.0 Panic disorder [episodic paroxysmal anxiety] Panic Dis order Condition 06/20/2021 12:00:00 AM EDT [facility] ([facility]) F17.200 Nicotine dependence, unspecified, uncomp licated Tobacco Use Disorder, Severe Condition 06/20/2021 12:00:00 AM EDT [facility] ( e [facility]) F10.20 Alcohol dependence, uncomplicated Alcohol Use Disorder , Severe Condition 06/20/2021 12:00:00 AM EDT [facility] ([facility]) F41.9 Anxiety disorder, unspecified Unspecified Anxiety Diso rder Condition 06/20/2021 12:00:00 AM EDT [facility] ([facility]) K57.90 [id number] Diverticulosis Problem 06/09/2021 12:00:00 A M EDT eCW1 ([facility]) K64.8 [id number] Internal hemorrhoid Problem 06/09/2021 12:00 :00 AM EDT eCW1 ([facility]) K64.4 [id number] External hemorrhoid Problem 06/09/2021 12:00 :00 AM EDT eCW1 ([facility]) R06.00 [id number] Dyspnea, unspecified type Problem 06/09/2021 12:00:00 AM EDT eCW1 ([facility]) E87.6 [id number] Hypokalemia Problem 06/09/2021 12:00:00 AM E DT eCW1 ([facility]) R18.8 [id number] Other ascites Problem 06/09/2021 12:00:00 AM EDT eCW1 ([facility]) D12.2 [id number] Adenomatous polyp of ascending colon Prob katie 06/09/2021 12:00:00 AM EDT eCW1 ([facility]) D12.3 [id number] Adenomatous polyp of transverse colon Pro blem 06/09/2021 12:00:00 AM EDT eCW1 ([facility]) D51.8 72698844 Macrocytic anemia with vitamin B12 defici ency Problem 06/09/2021 12:00:00 AM EDT eCW1 ([facility]) D12.0 659928222 Adenomatous polyp of cecum Problem 12:00:00 AM EDT eCW1 ([facility]) K63.5 [id number] Polyp of splenic flexure of colon Problem 06/09/2021 12:00:00 AM EDT eCW1 ([facility]) K51.00 [id number] Pancolitis Problem 06/09/2021 12:00:00 AM ED T eCW1 ([facility]) K50.019 [id number] Terminal ileitis with complication Proble m 06/09/2021 12:00:00 AM EDT eCW1 ([facility]) E83.39 [id number] Hypophosphatasia Problem 06/07/2021 12:00:00 AM EDT eCW1 ([facility]) R89.9 713345412 Abnormal laboratory test result Problem 05/08/2021 12:00:00 AM EDT eCW1 ([facility]) D50.0 [id number] Iron deficiency anemia due to chronic blo od loss Problem 04/12/2021 12:00:00 AM EDT eCW1 ([facility]) F51.5 [id number] Nightmares Problem 10/02/2020 12:00:00 AM ES T eCW1 ([facility]) M81.0 Age-related osteoporosis Age-related ost eoporosis without current pathological fracture Problem 09/01/2020 12:00:00 AM EST eCW1 ([facility]) 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, single episod e, in partial remission Major Depressive Disorder, Single episode, In partial remission Condition 06/20/2020 12:00:00 AM EDT [facility] ([facility]) K85.20 Alcohol induced acute pancreatitis witho ut necrosis or infection Alcohol induced acute pancreatitis without necrosis or infection Problem 04/25/2020 01:00:00 AM EDT [facility] ([facility] ) F10.20 Alcohol dependence, uncomplicated Alcohol depend ence, uncomplicated Problem 04/25/2020 01:00:00 AM EDT [facility] ([facility]) J69.0 Pneumonitis due to inhalation of food an d vomit Pneumonitis due to inhalation of food and vomit Problem 04/25/2020 01:00:00 AM EDT NETS M[facility] ([facility]) I82.B19 Acute embolism and thrombosis of unspeci fied subclavian vein Acute embolism and thrombosis of unspecified subclavian vein Problem 04/25/2020 01:00:00 AM EDT [facility] ([facility] ) F17.210 Nicotine dependence, cigarettes, uncompl icated Nicotine dependence, cigarettes, uncomplicated Problem 04/25/2020 01:00:00 AM EDT NETSMAR T ([facility]) M81.0 Age-related osteoporosis without current pathological fracture Age-related osteoporosis without current pathological fracture Problem 08/2019 01:00:00 AM EDT [facility] ([facility] ) F41.9 Anxiety disorder, unspecified Anxiety disorder, unspec ified Problem 04/25/2020 01:00:00 AM EDT [facility] ([facility] ) F32.9 Major depressive disorder, single episod e, unspecified Major depressive disorder, single episode, unspecified Problem 04/25/2020 01:00:00 AM EDT [facility] ([facility]) Z91.81 History of falling History of falling Problem 0 01:00:00 AM EDT [facility] ([facility]) Z60.2 Problems related to living alone Problems related to l iving alone Problem 04/25/2020 01:00:00 AM EDT [facility] ([facility] ) 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 MCFP (current) use of anticoagulants Problem 04/25/2020 01:00:00 AM EDT [facility] ([facility]) Z79.1 MCFP (current) use of non-steroidal anti-inflammatories (NSAID) 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 Problem 04/28/2020 12:00:00 AM EDT [facility] Surgeries/Procedures Procedure Description Date Indications Data Source(s) [facility] Telemed E/M Lvl 3--Est pt 06/20/2021 12:00:00 AM EDT - 06/20/2021 12:00:00 AM EDT [facility] ([facility]) Telemed A/O 30" 06/20/2021 12:00:00 AM EDT [facility] ([facility]) [facility] Telemed E/M Lvl 3--Est pt 06/20/2021 12:00:00 AM E DT [facility] ([facility]) Extended Individual Psychotherapy - 45 min 04/05/2021 12:00:00 AM EDT - 04/05/2021 12:00:00 AM EDT [facility] ([facility]) Extended Individual Psychotherapy - 45 min 12:00:00 AM EDT [facility] ([facility]) Unclassified biologics 03/14/2021 12:00:00 AM EDT eCW1 ([facility]) [facility] Telemed E/M Lvl 3--Est pt 03/07/2021 12:00:00 AM EDT - 03/07/2021 12:00:00 AM EDT [facility] ([facility]) Telemed A/O 30" 03/07/2021 12:00:00 AM EDT [facility] ([facility]) [facility] Telemed E/M Lvl 3--Est pt 03/07/2021 12:00:00 AM E DT [facility] ([facility]) [facility] Telemed E/M Lvl 3--Est pt 01/16/2021 12:00:00 AM EDT - 01/16/2021 12:00:00 AM EDT [facility] ([facility]) Telemed A/O 30" 01/16/2021 12:00:00 AM EDT [facility] ([facility]) MHC Telemed E/M Lvl 3--Est pt 01/16/2021 12:00:00 AM E DT [facility] ([facility]) Extended Individual Psychotherapy - 45 min 01/09/2021 12:00:00 AM EDT - 01/09/2021 12:00:00 AM EDT [facility] ([facility]) Extended Individual Psychotherapy - 45 min 12:00:00 AM EDT [facility] ([facility]) Extended Individual Psychotherapy - 45 min 12/26/2020 12:00:00 AM EDT - 12/26/2020 12:00:00 AM EDT [facility] ([facility]) Extended Individual Psychotherapy - 45 min 12:00:00 AM EDT [facility] ([facility]) MHC Telemed E/M Lvl 3--Est pt 12/19/2020 12:00:00 AM EDT - 12/19/2020 12:00:00 AM EDT [facility] ([facility]) Telemed A/O 30" 12/19/2020 12:00:00 AM EDT [facility] ([facility]) MHC Telemed E/M Lvl 3--Est pt 12/19/2020 12:00:00 AM E DT [facility] ([facility]) Brief Individual Psychotherapy - 30 min 12/12/2020 12:00:00 AM EDT - 12/12/2020 12:00:00 AM EDT [facility] ([facility]) Brief Individual Psychotherapy - 30 min 12/12/2020 12: 00:00 AM EDT [facility] ([facility]) MHC Telemed E/M Lvl 3--Est pt 11/21/2020 12:00:00 AM EDT - 11/21/2020 12:00:00 AM EDT [facility] ([facility]) Telemed A/O 30" 11/21/2020 12:00:00 AM EDT [facility] ([facility]) MHC Telemed E/M Lvl 3--Est pt 11/21/2020 12:00:00 AM E DT [facility] ([facility]) MHCTelemed E/M Lvl 5--Est pt 11/21/2020 12:00:00 AM ED T [facility] ([facility]) Extended Individual Psychotherapy - 45 min 11/14/2020 12:00:00 AM EDT - 11/14/2020 12:00:00 AM EDT [facility] ([facility]) Extended Individual Psychotherapy - 45 min 12:00:00 AM EDT [facility] ([facility]) Extended Individual Psychotherapy - 45 min 10/19/2020 12:00:00 AM EST - 10/19/2020 12:00:00 AM EST [facility] ([facility]) Extended Individual Psychotherapy - 45 min 12:00:00 AM EST [facility] ([facility]) MHC Telemed E/M Lvl 3--Est pt 10/17/2020 12:00:00 AM EST - 10/17/2020 12:00:00 AM EST [facility] ([facility]) Telemed A/O 30" 10/17/2020 12:00:00 AM EST [facility] ([facility]) MHC Telemed E/M Lvl 3--Est pt 10/17/2020 12:00:[address] [facility] ([facility]) TEMPMHCTelemed 30" Psychotherapy 021 12:00:00 AM EST - 09/27/2020 12:00:00 AM EST [facility] ([facility]) TEMPMHCTelemed 30" Psychotherapy 09/26/2020 12:00:00 A M EST [facility] ([facility]) Unclassified biologics 09/14/2020 12:00:00 AM EST eCW1 ([facility]) MHC Telemed E/M Lvl 3--Est pt 09/05/2020 12:00:00 AM EST - 09/05/2020 12:00:00 AM EST [facility] ([facility]) Telemed A/O 30" 09/05/2020 12:00:00 AM EST [facility] ([facility]) MHC Telemed E/M Lvl 3--Est pt 09/05/2020 12:00:[address] [facility] ([facility]) Extended Individual Psychotherapy - 45 min 08/22/2020 12:00:00 AM EST - 08/22/2020 12:00:00 AM EST [facility] ([facility]) Extended Individual Psychotherapy - 45 min 0 12:00:00 AM EST [facility] ([facility]) MHC Telemed E/M Lvl 3--Est pt 07/28/2020 12:00:00 AM EST - 07/28/2020 12:00:00 AM EST [facility] ([facility]) Telemed A/O 30" 07/28/2020 12:00:00 AM EST [facility] ([facility]) [facility] Telemed E/M Lvl 3--Est pt 07/28/2020 12:00:[address] [facility] ([facility]) Extended Individual Psychotherapy - 45 min 07/25/2020 12:00:00 AM EST - 07/25/2020 12:00:00 AM EST [facility] ([facility]) Extended Individual Psychotherapy - 45 min 0 12:00:00 AM EST [facility] ([facility]) Extended Individual Psychotherapy - 45 min 07/04/2020 12:00:00 AM EST - 07/04/2020 12:00:00 AM EST [facility] ([facility]) Extended Individual Psychotherapy - 45 min 0 12:00:00 AM EST [facility] ([facility]) Extended Individual Psychotherapy - 45 min 06/20/2020 12:00:00 AM EDT - 06/20/2020 12:00:00 AM EDT [facility] ([facility]) Extended Individual Psychotherapy - 45 min 0 12:00:00 AM EDT [facility] ([facility]) Extended Individual Psychotherapy - 45 min 06/06/2020 12:00:00 AM EDT - 06/06/2020 12:00:00 AM EDT [facility] ([facility]) Extended Individual Psychotherapy - 45 min 0 12:00:00 AM EDT [facility] ([facility]) Echocardiography Limited Or Follow-Up Study 04/28/2020 12:00:00 AM EDT [facility] ([facility]) INSJ NON-TUNNELED CENTRAL VENOUS CATH AGE 5 YR/> 04/28 12:00:00 AM EDT [facility] ([facility]) [id number]"Psychotherapy 0 12:00:00 AM EDT - 04/26/2020 12:00:00 AM EDT [facility] ([facility]) [id number]"Psychotherapy 04/26/2020 12:00:00 AM EDT [facility] ([facility]) Electrocardiogram Interpretation & Report Only 020 12:00:00 AM EDT [facility] ([facility]) Results ID Date Data Source [id number] 06/12/2021 11:48:00 AM EDT [facility] Name Value Range Interpretation Code Description Data Apurva rce(s) Supporting Document(s) SARS coronavirus 2 RNA [Presence] in Res piratory specimen by MINDY with probe detection NEGATIVE [facility] This lab was ordered by [facility] a nd reported by [facility]. ID Date Data Source [id number] 06/01/2021 06:28:00 PM EDT [facility] Name Value Range Interpretation Code Description Data Apurva rce(s) Supporting Document(s) SARS coronavirus 2 RNA [Presence] in Res piratory specimen by MINDY with probe detection NEGATIVE [facility] This lab was ordered by [facility] a nd reported by [facility]. ID Date Data Source TOTAL IRON BINDING CAPACIT 2021 12:00:00 AM EDT eCW1 ( [facility]) Name Value Range Interpretation Code Description Data Apurva rce(s) Supporting Document(s) 24.7 13.2-45.0 PERCENT SATURATION eCW1 ([facility]) 72 50-170 IRON (FE) eCW1 ([facility]) 291 250-450 TOTAL IRON BINDING CAPACI TY eCW1 ([facility]) ID Date Data Source FERRITIN 2021 12:00:00 AM EDT eCW1 ([facility]) Name Value Range Interpretation Code Description Data Apurva rce(s) Supporting Document(s) 109 8-252 FERRITIN eCW1 ([facility]) ID Date Data Source CBC with Differential 05/04/2021 12:00:00 AM EDT eCW1 ([facility]) Name Value Range Interpretation Code Description Data Apurva rce(s) Supporting Document(s) 14.1 4.0-10.0 WHITE BLOOD COUNT eCW1 ([facility]) 41.0 36.0-47.0 HEMATOCRIT eCW1 ([facility]) 3.99 4.00-5.40 RED BLOOD COUNT eCW1 ([facility]) 13.7 12.0-15.5 HEMOGLOBIN eCW1 ([facility]) 34.3 27.0-33.0 MEAN CORPUSCULAR HEMOGLOB IN eCW1 ([facility]) 102.8 80.0-96.0 MEAN CORPUSCULAR VOLUME e CW1 ([facility]) 33.4 32.0-36.5 MEAN CORPUSCULAR HGB CONC eCW1 ([facility]) 74.7 36.0-66.0 NEUTROPHILS % eCW1 ([facility]) 407 150-450 PLATELET COUNT, AUTOMATED eCW1 ([facility]) 12.7 11.5-14.5 RED CELL DISTRIBUTION WID TH eCW1 ([facility]) 0.9 0.0-3.0 EOS % eCW1 ([facility]) 7.9 2.0-8.0 MONO % eCW1 ([facility]) 15.2 24.0-44.0 LYMPH % eCW1 ([facility]) 1.1 0.0-0.8 MONO # eCW1 ([facility]) 10.5 1.5-8.5 NEUTROPHILS # eCW1 ([facility]) 2.2 1.5-5.0 LYMPH # eCW1 ([facility]) 0.7 0.0-1.0 BASO % eCW1 ([facility]) 0.1 0.0-0.5 EOS # eCW1 ([facility]) 0.1 0.0-0.2 BASO # eCW1 ([facility]) ID Date Data Source GASTROINTESTINAL GI PANEL (GIPANEL) 05/04/2021 12:00:00 AM EDT eCW1 ([facility]) Name Value Range Interpretation Code Description Data Apurva rce(s) Supporting Document(s) This Gastrointestinal PCR Panel detects the following bacteria, GASTROINTESTINAL (GI) PANEL eCW1 ([facility]) ID Date Data Source C REACTIVE PROTEIN QUANTITATIV (At [facility]) 05/04/2021 12:00 :00 AM EDT eCW1 ([facility]) Name Value Range Interpretation Code Description Data Apurva rce(s) Supporting Document(s) 4.93 0.00-0.30 C REACTIVE PROTEIN QUANTI TATIV eCW1 ([facility]) ID Date Data Source Comprehensive Metabolic Profile (CMP) 05/04/2021 12:00:00 AM EDT eCW1 ([facility]) Name Value Range Interpretation Code Description Data Apurva rce(s) Supporting Document(s) 0.59 0.55-1.30 CREATININE FOR GFR eCW1 ([facility]) 6 7-18 BLOOD UREA NITROGEN eCW1 ([facility]) 103 70-100 GLUCOSE, FASTING eCW1 ([facility]) 3.9 3.5-5.1 POTASSIUM SERUM eCW1 ([facility]) 135 136-145 SODIUM LEVEL eCW1 (Replaced by [facility]) > 60.0 >45 GLOMERULAR FILTRATION RATE eCW 1 ([facility]) 8.6 8.8-10.2 CALCIUM LEVEL eCW1 ([facility]) 25 21-32 CARBON DIOXIDE LEVEL eCW1 ([facility]) 102 98-107 CHLORIDE LEVEL eCW1 ([facility]) 67 12-78 ALT/SGPT eCW1 ([facility]) 108 7-37 AST/SGOT eCW1 ([facility]) 195 45-117 ALKALINE PHOSPHATASE eCW1 ([facility]) 3.0 3.2-5.2 ALBUMIN eCW1 ([facility]) 1.1 0.2-1.0 BILIRUBIN,TOTAL eCW1 ([facility]) 7.0 6.4-8.2 TOTAL PROTEIN eCW1 ([facility]) 0.8 1.2-2.2 ALBUMIN/GLOBULIN RATIO eCW1 ([facility]) ID Date Data Source LIPASE 05/04/2021 12:00:00 AM EDT eCW1 ([facility]) Name Value Range Interpretation Code Description Data Apurva rce(s) Supporting Document(s) [id number] LIPASE eCW1 ([facility]) ID Date Data Source ERYTHROCYTE SEDIMENTATION RATE 05/04/2021 12:00:00 AM EDT eC W1 ([facility]) Name Value Range Interpretation Code Description Data Apurva rce(s) Supporting Document(s) 48 0-30 ERYTHROCYTE SEDIMENTATION RATE eCW1 ([facility]) ID Date Data Source [id number] 12/07/2020 07:38:00 AM EDT [facility] Name Value Range Interpretation Code Description Data Apurva rce(s) Supporting Document(s) White Blood Count 3.5-10.5 Normal (applies to non-numeri c results) [facility] Red Blood Count 3.90-5.00 Normal (applies to non-numeric results) [facility] Hemoglobin 12.0-15.5 Normal (applies to non-numeric resul ts) [facility] Hematocrit 34.9-44.5 Normal (applies to non-numeric resul ts) [facility] Mean Corpuscular Volume 81.2-95.1 Above high normal [facility] Mean Corpuscular Hgb 25.6-32.2 Above high normal [facility] Mean Corpuscular Hgb Conc 32.0-36.0 Normal (applies to no n-numeric results) [facility] Red Cell Distribution Width 11.9-15.5 Normal (appli es to non-numeric results) [facility] Platelet Count 159 x10 3/uL 150-450 Normal (applies to non-numeric results) [facility] Mean Platelet Volume 9.4-12.4 Below low normal [facility] Neutrophils% (Auto) 31.0-71.0 Normal (applies to non-nume fortino results) [facility] Lymphocytes% (Auto) 20.0-55.0 Normal (applies to non-nume fortino results) [facility] Monocytes% (Auto) 4.0-12.0 Normal (applies to non-numeri c results) [facility] Eosinophils% (Auto) 1.0-8.0 Normal (applies to non-nume fortino results) [facility] Basophils% (Auto) 0.0-2.0 Normal (applies to non-numeri c results) [facility] Immature Granulocytes% (Auto) 0.0-2.0 Normal (carmen lies to non-numeric results) [facility] Neutrophils# (Auto) 1.50-6.20 Normal (applies to non-nume fortino results) [facility] Lymphocytes# (Auto) 1.20-4.00 Normal (applies to non-nume fortino results) [facility] Monocytes# (Auto) 0.00-0.90 Normal (applies to non-numeri c results) [facility] Eosinophils# (Auto) 0.00-0.50 Normal (applies to non-nume fortino results) [facility] Basophils# (Auto) 0.00-0.20 Normal (applies to non-numeri c results) [facility] Immature Granulocytes# (Auto) 0.00-7.00 No rmal (applies to non-numeric results) [facility] ID Date Data Source [id number] 12/07/2020 08:39:00 PM EDT [facility] Name Value Range Interpretation Code Description Data Apurva rce(s) Supporting Document(s) Hepatitis A Ab,IgG result Normal (applies to no n-numeric results) [facility] Result indicates immunity to hepatitis A infection from either vaccination or past exposure to hepatitis A. False-positive results may be observed in patients with CMV antibodies or heterophilic antibodies. REFERENCE VALUE Unvaccinated: Negative Vaccinated: Positive Test Performed by: [place] [address] Attendant Arcade: Darinel Murray M.D. Ph.D.; CLIA# [id number] ID Date Data Source [id number] 12/06/2020 12:54:00 PM EDT [facility] Name Value Range Interpretation Code Description Data Apurva rce(s) Supporting Document(s) HIV Screen result Nonreactive Normal (applies to non-numer ic results) [facility] Test Performed By: [facility] [address] [place] [address] Director: David Gold MD ID Date Data Source [id number] 12/06/2020 12:54:00 PM EDT [facility] Name Value Range Interpretation Code Description Data Apurva rce(s) Supporting Document(s) CPK result 62 U/L 26-192 Normal (applies to non-numeric resul ts) [facility] Test Performed By: [facility] [employer] [facility] [address] [place] [address] Director: David Gold MD ID Date Data Source [id number] 12/06/2020 12:54:00 PM EDT [facility] Name Value Range Interpretation Code Description Data Apurva rce(s) Supporting Document(s) Hepatitis C Virus Ab result Nonreactive Norm al (applies to non-numeric results) [facility] Test Performed By: [facility] [address] [place] [address] Director: David Gold MD ID Date Data Source [id number] 12/06/2020 12:54:00 PM EDT [facility] Value Range Interpretation Code Description Data Apurva rce(s) Supporting Document(s) Hep Bs Ag result T-Test Nonreactive Normal (applies to non -numeric results) [facility] Test Performed By: [facility] [address] [place] [address] Director: David Gold MD ID Date Data Source [id number] 12/06/2020 12:54:00 PM EDT [facility] Value Range Interpretation Code Description Data Apurva rce(s) Supporting Document(s) Syphilis Serology result Nonreactive Normal (applies to non-numeric results) [facility] Test Performed By: [facility] [address] [place], [place] [address] Director: David Gold MD ID Date Data Source [id number] 12/05/2020 10:07:00 PM EDT [facility] Value Range Interpretation Code Description Data Apurva rce(s) Supporting Document(s) Sodium 138 mmol/L 136-145 Normal (applies to non-numeric resul ts) [facility] Potassium 3.5-5.1 Normal (applies to non-numeric resul ts) [facility] Chloride 99 mmol/L 98-107 Normal (applies to non-numeric resul ts) [facility] Carbon Dioxide CO2 21-32 Normal (applies to non-numer ic results) [facility] Anion Gap 5.0-16.0 Normal (applies to non-numeric resul ts) [facility] BUN 9 mg/dL 7-18 Normal (applies to non-numeric results) [facility] Creatinine,Serum 0.7-1.2 Normal (applies to non-numeric results) [facility] GFR >60 Normal (applies to non-numeric results) [facility] Glucose Level 114 mg/dL 60-99 Above high normal [facility] Reference range is only applicable when patient is fasting Note the following drug interference: Sulfasalazine Sulfapyridine Can see falsely depressed Can see falsely elevated result with up to 17% results with up to 11% decrease in measurement increase in measurement Recommend patients be collected for this test prior to administration of either drug. Calcium 8.5-10.1 Below low normal [facility] Bilirubin,Total 0.1-1.9 Normal (applies to non-numeric results) [facility] SGOT(AST) 90 U/L 15-37 Above high normal [facility] Note the following drug interference: Sulfasalazine Sulfapyridine Can see falsely depressed Can see falsely elevated result with up to 10% results with up to 10% decrease in measurement increase in measurement Recommend patients be collected for this test prior to administration of either drug. SGPT(ALT) 81 U/L 12-78 Above high normal [facility] Note the following drug interference: Sulfasalazine Sulfapyridine Can see falsely depressed Can see falsely elevated result with up to 29% results with up to 10% decrease in measurement increase in measurement Recommend patients be collected for this test prior to administration of either drug. Alkaline Phosphatase 127 U/L 38-126 Above high normal [facility] can increase Alkaline Phosp le vels up to 2 times the normal adult value. Normal values for children and adolescents are 2 to 3 times the normal adult value. Total Protein 6.0-8.2 Normal (applies to non-numeric re sults) [facility] Albumin Level 3.4-5.0 Normal (applies to non-numeric re sults) [facility] ID Date Data Source [id number] 12/05/2020 10:07:00 PM EDT [facility] Name Value Range Interpretation Code Description Data Apurva rce(s) Supporting Document(s) Bilirubin,Direct 0.05-0.20 Normal (applies to non-numeric results) [facility] ID Date Data Source [id number] 12/05/2020 10:07:00 PM EDT [facility] Name Value Range Interpretation Code Description Data Apurva rce(s) Supporting Document(s) Phosphorus 2.5-4.9 Normal (applies to non-numeric resul ts) [facility] ID Date Data Source [id number] 12/05/2020 10:07:00 PM EDT [facility] Name Value Range Interpretation Code Description Data Apurva rce(s) Supporting Document(s) Magnesium 1.8-2.4 Normal (applies to non-numeric resul ts) [facility] ID Date Data Source [id number] 12/05/2020 10:07:00 PM EDT [facility] Name Value Range Interpretation Code Description Data Apurva rce(s) Supporting Document(s) Thyroid Stimulate Hormone TSH 0.358-3.74 Above high normal [facility] ID Date Data Source [id number] 12/05/2020 09:40:00 PM EDT [facility] Name Value Range Interpretation Code Description Data Apurva rce(s) Supporting Document(s) White Blood Count 3.5-10.5 Normal (applies to non-numeri c results) [facility] Red Blood Count 3.90-5.00 Normal (applies to non-numeric results) [facility] Hemoglobin 12.0-15.5 Normal (applies to non-numeric resul ts) [facility] Hematocrit 34.9-44.5 Normal (applies to non-numeric resul ts) [facility] Mean Corpuscular Volume 81.2-95.1 Above high normal [facility] Mean Corpuscular Hgb 25.6-32.2 Above high normal [facility] Mean Corpuscular Hgb Conc 32.0-36.0 Normal (applies to no n-numeric results) [facility] Red Cell Distribution Width 11.9-15.5 Normal (appli es to non-numeric results) [facility] Platelet Count 198 x10 3/uL 150-450 Normal (applies to non-numeric results) [facility] Mean Platelet Volume 9.4-12.4 Below low normal [facility] Neutrophils% (Auto) 31.0-71.0 Normal (applies to non-nume fortino results) [facility] Lymphocytes% (Auto) 20.0-55.0 Normal (applies to non-nume fortino results) [facility] Monocytes% (Auto) 4.0-12.0 Normal (applies to non-numeri c results) [facility] Eosinophils% (Auto) 1.0-8.0 Normal (applies to non-nume fortino results) [facility] Basophils% (Auto) 0.0-2.0 Normal (applies to non-numeri c results) [facility] Immature Granulocytes% (Auto) 0.0-2.0 Normal (carmen lies to non-numeric results) [facility] Neutrophils# (Auto) 1.50-6.20 Normal (applies to non-nume fortino results) [facility] Lymphocytes# (Auto) 1.20-4.00 Below low normal [facility] Monocytes# (Auto) 0.00-0.90 Normal (applies to non-numeri c results) [facility] Eosinophils# (Auto) 0.00-0.50 Normal (applies to non-nume fortino results) [facility] Basophils# (Auto) 0.00-0.20 Normal (applies to non-numeri c results) [facility] Immature Granulocytes# (Auto) 0.00-7.00 No rmal (applies to non-numeric results) [facility] ID Date Data Source [id number] 12/08/2020 03:15:[address] [facility] Name Value Range Interpretation Code Description Data Apurva rce(s) Supporting Document(s) Chlamydia,Urine Negative Normal (applies to non-numeric results) [facility] Test Performed By: [facility] [address] [place] [address] Director: David Gold MD . GC Urine Negative Normal (applies to non-numeric resul ts) [facility] Test Performed By: [facility] [address] [place] [address] Director: David Gold MD . Methodology: Second generation nucleic acid amplification. ID Date Data Source [id number] 12/07/2020 08:27:00 PM EDT [facility] Value Range Interpretation Code Description Data Apurva rce(s) Supporting Document(s) Hepatitis A Ab,IgG result Normal (applies to no n-numeric results) [facility] Result indicates immunity to hepatitis A infection from either vaccination or past exposure to hepatitis A. False-positive results may be observed in patients with CMV antibodies or heterophilic antibodies. REFERENCE VALUE Unvaccinated: Negative Vaccinated: Positive Test Performed by: [place] [address] Attendant Arcade: Darinel Murray M.D. Ph.D.; CLIA# [id number] ID Date Data Source [id number] 12/06/2020 12:49:00 PM EDT [facility] Value Range Interpretation Code Description Data Apurva rce(s) Supporting Document(s) HIV 1/2 Ab p24 Ag Screen Nonreactive Normal (applies to non-numeric results) [facility] Test Performed By: [facility] [address] [place] [address] Director: David Gold MD ID Date Data Source [id number] 12/06/2020 12:49:00 PM EDT [facility] Value Range Interpretation Code Description Data Apurva rce(s) Supporting Document(s) Hep C Ab-T Test Nonreactive Normal (applies to non-numeric results) [facility] Test Performed By: [facility] [address] [place] [address] Director: David Gold MD ID Date Data Source [id number] 12/06/2020 12:49:00 PM EDT [facility] Value Range Interpretation Code Description Data Apurva rce(s) Supporting Document(s) Hep Bs Ag Result T-Test Nonreactive Normal (applies to non -numeric results) [facility] Test Performed By: [facility] [address] [place] [address] Director: David Gold MD ID Date Data Source [id number] 12/06/2020 12:49:00 PM EDT [facility] Value Range Interpretation Code Description Data Apurva rce(s) Supporting Document(s) Syphilis Serology Nonreactive Normal (applies to non-numer ic results) [facility] Test Performed By: [facility] [address] [place] [address] Director: David Gold MD ID Date Data Source [id number] 12/06/2020 11:59:00 AM EDT [facility] Value Range Interpretation Code Description Data Apurva rce(s) Supporting Document(s) CPK 62 U/L 26-192 Normal (applies to non-numeric resul ts) [facility] Test Performed By: [facility] [address] [place] [address] Director: David Gold MD ID Date Data Source [id number] 12/05/2020 10:06:00 PM EDT [facility] Value Range Interpretation Code Description Data Apurva rce(s) Supporting Document(s) Ethanol Less than 10.0 Normal (applies to non-numeric r esults) [facility] ID Date Data Source [id number] 12/08/2020 04:03:00 PM EDT [facility] Value Range Interpretation Code Description Data Apurva rce(s) Supporting Document(s) Chlamydia,Urine result Negative Normal (applies to non-n umeric results) [facility] Test Performed By: [place] [address] Director: David Gold MD . GC Urine result Negative Normal (applies to non-numeric results) [facility] Test Performed By: [place] [address] Director: David Gold MD . Methodology: Second generation nucleic acid amplification. ID Date Data Source [id number] 12/05/2020 09:41:00 PM EDT [facility] Name Value Range Interpretation Code Description Data Apurva rce(s) Supporting Document(s) UDS Benzodiazepines Screen Negative Normal (applies to n on-numeric results) [facility] UDS Cocaine Screen Negative Normal (applies to non-numer ic results) [facility] UDS Ampetamine Screen Negative Normal (applies to non-nu meric results) [facility] UDS Cannabinoids Screen Negative Normal (applies to non- numeric results) [facility] UDS Opiates Screen Negative Normal (applies to non-numer ic results) [facility] UDS Barbiturates Screen Negative Normal (applies to non- numeric results) [facility] Threshold Levels Benzodiazepine 200 ng/mL Cocaine 300 ng/mL Amphetamines 1000 ng/mL Cannabinoids (THC) 50 ng/mL Opiates 300 ng/mL Barbiturates 200 ng/mL All positive findings are presumptive and unconfirmed. Confirmation of positive results are performed only at request of provider. Unconfirmed results must not be used for non-medical purposes (i.e. preemployment and legal purposes) ID Date Data Source [id number] 12/05/2020 09:47:00 PM EDT [facility] Collected By: Nurse's Aide Time Collect ed: 2009 Collected By: Nurse's Aide Time Collect ed: 2009 Name Value Range Interpretation Code Description Data Apurva rce(s) Supporting Document(s) Color,Urine Colorl-Dk Y Normal (applies to non-numeric res ults) [facility] Clarity,Urine Clear Normal (applies to non-numeric re sults) [facility] Specific G[place]ier,Urine 1.005-1.030 Normal (applies to non- numeric results) [facility] pH,Urine 5.0-8.0 Normal (applies to non-numeric resul ts) [facility] Protein,Urine Negative Normal (applies to non-numeric re sults) [facility] Glucose,Urine Negative Normal (applies to non-numeric re sults) [facility] Ketones,Urine Negative Normal (applies to non-numeric re sults) [facility] Blood,Urine Negative [facility] Bilirubin,Urine Negative Normal (applies to non-numeric results) [facility] Urobilinogen,Urine 0.2-1.0 Normal (applies to non-numer ic results) [facility] Leukocyte Esterase,Urine Negative Normal (applies to non -numeric results) [facility] Nitrite,Urine Negative Normal (applies to non-numeric re sults) [facility] ID Date Data Source [id number] 12/05/2020 09:47:00 PM EDT [facility] Collected By: Nurse's Aide Time Collect ed: 2009 Collected By: Nurse's Aide Time Collect ed: 2009 Name Value Range Interpretation Code Description Data Apurva rce(s) Supporting Document(s) RBC,Urine None Seen [facility] WBC,Urine None Seen [facility] Casts,Urine None Seen Normal (applies to non-numeric resu lts) [facility] Epithelial Cells,Urine None - Few Normal (applies to non-n umeric results) [facility] Bacteria,Urine None Seen [facility] Mucus,Urine None Seen [facility] ID Date Data Source [id number] 12/05/2020 03:44:00 PM EDT [facility] Name Value Range Interpretation Code Description Data Apurva rce(s) Supporting Document(s) SARS-CoV-2 (COVID 19) NEGATIVE - SARS-CoV-2 (COVID19) [facility] This lab was ordered by [facility] a nd reported by [facility]. ID Date Data Source Low Dose Lung Screening CT Chest 06/22/2020 10:10:30 AM EDT eCW1 ([facility]) Name Value Range Interpretation Code Description Data Apurva rce(s) Supporting Document(s) Low Dose Lung Screening CT De[facility] eCW1 ([facility]) ID Date Data Source [id number] 05/11/2020 08:12:00 PM EDT [facility] DATE OF EXAM: 05/11/2020ULTRASOUND VASCU [...] and basilic veins. Professional interpretation performed at [facility] .End of diagnostic report for accession: [id number] Interpreted: Jeyson Potts MDTranscribed: 05/11/2020 08:09 PMSigned: 05/11/2020 08:12 PM Jeyson Potts MD [facility] # [id number] [facility] # [id number] Name Value Range Interpretation Code Description Data Apurva rce(s) Supporting Document(s) ID Date Data Source [id number] 05/11/2020 07:52:23 AM EDT [facility] Name Value Range Interpretation Code Description Data Apurva rce(s) Supporting Document(s) HGB 9.6 g/dL (12.0-16.0) L [facility] HCT 29.7 % (36.0-47.0) L [facility] ID Date Data Source [id number] 05/11/2020 12:50:54 AM EDT [facility] PATIENT ABO/Rh A POSITIVEANT IBODY SCREEN NEGATIVESPEC EXP DATE 05/13/2020TESTING SITE PERFORMED AT [address] [place], [place] [address]BLOOD BANK COMMENT BLOOD TYPE CONFIRMED.UNIT NUMBER [id number] COMPONENT TYPE LEUKOPOOR RED CELLSUNIT DIVISION 00STATUS OF UNIT TRANSFUSEDTRANSFUSION STATUS OK TO TRANSFUSECROSSMATCH RESULT COMPATIBLE Name Value Range Interpretation Code Description Data Apurva rce(s) Supporting Document(s) ID Date Data Source [id number] 05/10/2020 06:16:35 PM EDT [facility] Name Value Range Interpretation Code Description Data Apurva rce(s) Supporting Document(s) HGB 7.8 g/dL (12.0-16.0) L [facility] HCT 23.8 % (36.0-47.0) L [facility] ID Date Data Source [id number] 05/10/2020 01:24:51 PM EDT [facility] Name Value Range Interpretation Code Description Data Apurva rce(s) Supporting Document(s) HGB 8.8 g/dL (12.0-16.0) L [facility] HCT 27.3 % (36.0-47.0) L [facility] ID Date Data Source [id number] 05/10/2020 07:07:26 AM EDT [facility] Name Value Range Interpretation Code Description Data Apurva rce(s) Supporting Document(s) MAGNESIUM 1.8 mg/dL (1.7-2.4) [facility] ID Date Data Source [id number] 05/10/2020 07:07:26 AM EDT [facility] Name Value Range Interpretation Code Description Data Apurva rce(s) Supporting Document(s) PHOSPHORUS 3.1 mg/dL (2.5-4.5) [facility] ID Date Data Source [id number] 05/10/2020 07:07:26 AM EDT [facility] Name Value Range Interpretation Code Description Data Apurva rce(s) Supporting Document(s) SODIUM 139 mmol/L (136-145) [facility] POTASSIUM 3.4 mmol/L (3.6-5.2) L [facility] CHLORIDE 106 mmol/L (100-108) [facility] CO2 22 mmol/L (22-31) [facility] ANION GAP 11 mmol/L (7-16) [facility] UREA NITROGEN 3 mg/dL (7-24) L [facility] CREATININE 0.68 mg/dL (0.60-1.00) [facility] BUN/CREAT RATIO 4.4 RATIO (10.0-20.0) L [facility] GLUCOSE 104 mg/dL (70-99) H [facility] CALCIUM 7.8 mg/dL (8.4-10.2) L [facility] GFR >60 ml/min/1.73m2 (>59) [facility] GFR ( AMER) >60 ml/min/1.73m2 (>59) [facility] GFR INTERPRETATION [facility] --NORMAL KIDNEY FUNCTION OR MILD DISEASE - GFR >OR= 60CHRONIC KIDNEY DISEASE - GFR 15 - 59RENAL FAILURE - GFR <15 Est. GFR calculation based on the MDRDstudy equation, which assumes a steadystate for creatinine. Est. GFR should notbe used for medication dosing. ID Date Data Source [id number] 05/10/2020 06:59:27 AM EDT [facility] Name Value Range Interpretation Code Description Data Apurva rce(s) Supporting Document(s) APTT 68.6 s (22.0-34.3) H [facility] ID Date Data Source [id number] 05/10/2020 06:40:19 AM EDT [facility] Name Value Range Interpretation Code Description Data Apurva rce(s) Supporting Document(s) HGB 8.3 g/dL (12.0-16.0) L [facility] HCT 26.0 % (36.0-47.0) L [facility] ID Date Data Source [id number] 2020 10:43:08 PM EDT [facility] Name Value Range Interpretation Code Description Data Apurva rce(s) Supporting Document(s) APTT 42.7 s (22.0-34.3) H [facility] ID Date Data Source [id number] 2020 11:02:31 PM EDT [facility] Name Value Range Interpretation Code Description Data Apurva rce(s) Supporting Document(s) SPECIMEN DESCRIPTION [facility] C DIFF TOXIN B (NEG) [facility] 027 NAP1 B1 (NEG) [facility] COMMENT [facility] IS CLINICALLY INDICATED, PLEASE CONTA CT THE MICROBIOLOGY LABORATORY ([phone]) WITHIN 3 DAYS OF THIS REPORT. ID Date Data Source [id number] 2020 04:48:27 PM EDT [facility] Name Value Range Interpretation Code Description Data Apurva rce(s) Supporting Document(s) HGB 9.1 g/dL (12.0-16.0) L [facility] HCT 29.4 % (36.0-47.0) L [facility] ID Date Data Source [id number] 05/10/2020 10:06:27 AM EDT [facility] [place], [place] [address]Tel# SURGICAL PATHOLOGY REPORTPatient Name:ALEX JAMESDOB:2Received:2020Accession #:[id number](s) Received: A: Biopsy, submucosal mass, [...] in toto for microscopic examination. (1 block) [id number]: 05/10/2020Electronically Signed Out By Shahzad Troy M.D. [facility] [place], [place] [address]Technical component performed at [facility], Histopathology, [address] [place] [address], [facility].Reported at [facility], [address] [place] [address], [facility].This report may include immunohistochemical or in-situ hybridizationresults. Testing was developed and the performance characteristicsdetermined by [facility] [place] [facility], as required byCLIA '88. The FDA has determined that approval for specific use is notnecessary for clinical use. The quality of Hematoxylin and Eosin stainsand as applicable, for all immunohistochemical and/or special stains,including positive and negative controls, were reviewed and consider edappropriate.ICD codes: R89.7CPT4 codes: A: 67278AP: 62649L Name Value Range Interpretation Code Description Data Apurva rce(s) Supporting Document(s) ID Date Data Source [id number] 2020 01:47:24 PM EDT [facility] Name Value Range Interpretation Code Description Data Apurva rce(s) Supporting Document(s) POC GLUCOSE 83 mg/dL (70-99) [facility] NOTIFIED NURSEPERFORMED BY CLINICAL S TAFF ID Date Data Source [id number] 2020 06:43:20 AM EDT [facility] Name Value Range Interpretation Code Description Data Apurva rce(s) Supporting Document(s) APTT 55.0 s (22.0-34.3) H [facility] ID Date Data Source [id number] 2020 06:40:39 AM EDT [facility] Name Value Range Interpretation Code Description Data Apurva rce(s) Supporting Document(s) WBC 8.8 10*3/uL (4.1-11.0) [facility] [place] RBC 2.47 10*6/uL (4.00-5.40) L [facility] HGB 7.5 g/dL (12.0-16.0) L [facility] HCT 23.5 % (36.0-47.0) L [facility] MCV 95.0 fL (80.0-95.0) [facility] MCH 30.5 pg (27.0-32.0) [facility] MCHC 32.1 g/dL (32.0-36.0) [facility] RDW 17.3 % (10.5-14.5) H [facility] PLT 484 10*3/uL (150-450) H [facility] MPV 9.4 fL (7.1-10.7) [facility] NEUT % 68.1 % (35.0-75.0) [facility] LYMPH % 17.1 % (16.0-52.0) [facility] MONO % 10.1 % (0.0-8.0) H [facility] EOS % 2.4 % (0.0-5.0) [facility] BASO % 2.3 % (0.0-4.0) [facility] NEUT # 6.0 10*3/uL (1.8-7.7) [facility] LYMPH # 1.5 10*3/uL (1.2-4.8) [facility] MONO # 0.9 10*3/uL (0.0-0.8) H [facility] Eosinophils [#/volume] in Blood by Automated count 0.2 10*3/uL (0.0-0 .5) [facility] BASO # 0.2 10*3/uL (0.0-0.2) [facility] ID Date Data Source [id number] 05/08/2020 09:34:49 PM EDT [facility] Name Value Range Interpretation Code Description Data Apurva rce(s) Supporting Document(s) APTT 61.7 s (22.0-34.3) H [facility] ID Date Data Source [id number] 05/08/2020 02:20:50 PM EDT [facility] Name Value Range Interpretation Code Description Data Apurva rce(s) Supporting Document(s) APTT 74.6 s (22.0-34.3) H [facility] ID Date Data Source [id number] 05/08/2020 10:35:00 AM EDT [facility] Name Value Range Interpretation Code Description Data Apurva rce(s) Supporting Document(s) SARS coronavirus 2 RNA [Presence] in Res piratory specimen by MINDY with probe detection [facility] This lab was reported by [facility]. ID Date Data Source [id number] 05/08/2020 03:28:37 PM EDT [facility] Name Value Range Interpretation Code Description Data Apurva rce(s) Supporting Document(s) SPECIMEN DESCRIPTION [facility] COVID19 RESULT (NDET) [facility] THIS ASSAY AMPLIFIES AND DETECTSTHE TARG ET RNA USING REAL-TIME PCR.NEGATIVE 2019_NCOV RT-PCR RESULTS DONOT PRECLUDE 2019_NCOV INFECTION ANDSHOULD NOT BE USED THE SOLE BASISFOR PATIENT MANAGEMENT DECISIONS. COMMENT [facility] APPR[facility] B Y THE [place]. THE [place] FOODAND DRUG ADMINISTRATION HAS NOT APPROVEDTHIS TEST. NEGATIVE RESULTS DO NOT [id number] INFECTION AND SHOULD NOT BEUSED THE SOLE BASIS FOR CLINICALDIAGNOSIS OR PATIENT MANAGEMENT DECISIONS.EMAILED TO [facility] AT [address]31 ON [id number] ZR [id number]. FIRST TEST [facility] [employer] [facility] SYMPTOMATIC [facility] DATE OF SYMPT ONSET [facility] CONGREGATE CARE SET [facility] ID Date Data Source [id number] 05/08/2020 07:10:35 AM EDT [facility] Name Value Range Interpretation Code Description Data Apurva rce(s) Supporting Document(s) SODIUM 138 mmol/L (136-145) [facility] STEIN POTASSIUM 3.6 mmol/L (3.6-5.2) [facility] STEIN CHLORIDE 105 mmol/L (100-108) [facility] CO2 21 mmol/L (22-31) L [facility] ANION GAP 12 mmol/L (7-16) [facility] UREA NITROGEN 6 mg/dL (7-24) L [facility] CREATININE 1.04 mg/dL (0.60-1.00) H [facility] BUN/CREAT RATIO 5.8 RATIO (10.0-20.0) L [facility] GLUCOSE 105 mg/dL (70-99) H [facility] CALCIUM 8.2 mg/dL (8.4-10.2) L [facility] GFR 53 ml/min/1.73m2 (>59) L [facility] GFR ( AMER) >60 ml/min/1.73m2 (>59) [facility] GFR INTERPRETATION [facility] --NORMAL KIDNEY FUNCTION OR MILD DISEASE - GFR >OR= 60CHRONIC KIDNEY DISEASE - GFR 15 - 59RENAL FAILURE - GFR <15 Est. GFR calculation based on the MDRDstudy equation, which assumes a steadystate for creatinine. Est. GFR should notbe used for medication dosing. ID Date Data Source [id number] 05/08/2020 07:10:35 AM EDT [facility] Name Value Range Interpretation Code Description Data Apurva rce(s) Supporting Document(s) MAGNESIUM 1.9 mg/dL (1.7-2.4) [facility] ID Date Data Source [id number] 05/08/2020 06:48:47 AM EDT [facility] Name Value Range Interpretation Code Description Data Apurva rce(s) Supporting Document(s) APTT 87.7 s (22.0-34.3) H [facility] ID Date Data Source [id number] 05/08/2020 06:46:31 AM EDT [facility] Name Value Range Interpretation Code Description Data Apurva rce(s) Supporting Document(s) WBC 11.2 10*3/uL (4.1-11.0) H [facility] RBC 3.00 10*6/uL (4.00-5.40) L [facility] HGB 9.2 g/dL (12.0-16.0) L [facility] HCT 28.9 % (36.0-47.0) L [facility] MCV 96.3 fL (80.0-95.0) H [facility] MCH 30.7 pg (27.0-32.0) [facility] MCHC 31.8 g/dL (32.0-36.0) L [facility] RDW 17.4 % (10.5-14.5) H [facility] PLT 609 10*3/uL (150-450) H [facility] MPV 9.5 fL (7.1-10.7) [facility] NEUT % 68.7 % (35.0-75.0) [facility] LYMPH % 19.0 % (16.0-52.0) [facility] MONO % 8.6 % (0.0-8.0) H [facility] EOS % 2.4 % (0.0-5.0) [facility] BASO % 1.3 % (0.0-4.0) [facility] NEUT # 7.7 10*3/uL (1.8-7.7) [facility] LYMPH # 2.1 10*3/uL (1.2-4.8) [facility] MONO # 1.0 10*3/uL (0.0-0.8) H [facility] Eosinophils [#/volume] in Blood by Automated count 0.3 10*3/uL (0.0-0 .5) [facility] BASO # 0.1 10*3/uL (0.0-0.2) [facility] ID Date Data Source [id number] 05/07/2020 10:37:54 PM EDT [facility] Name Value Range Interpretation Code Description Data Apurva rce(s) Supporting Document(s) APTT 80.0 s (22.0-34.3) H [facility] ID Date Data Source [id number] 05/07/2020 04:34:59 PM EDT [facility] Name Value Range Interpretation Code Description Data Apurva rce(s) Supporting Document(s) APTT 61.4 s (22.0-34.3) H [facility] ID Date Data Source [id number] 05/07/2020 04:17:37 PM EDT [facility] Name Value Range Interpretation Code Description Data Apurva rce(s) Supporting Document(s) HGB 8.7 g/dL (12.0-16.0) L [facility] HCT 26.5 % (36.0-47.0) L [facility] ID Date Data Source [id number] 05/07/2020 08:01:54 AM EDT [facility] Name Value Range Interpretation Code Description Data Apurva rce(s) Supporting Document(s) PHOSPHORUS 2.4 mg/dL (2.5-4.5) L [facility] ID Date Data Source [id number] 05/07/2020 08:01:54 AM EDT [facility] Name Value Range Interpretation Code Description Data Apurva rce(s) Supporting Document(s) MAGNESIUM 1.6 mg/dL (1.7-2.4) L [facility] ID Date Data Source [id number] 05/07/2020 08:01:54 AM EDT [facility] Name Value Range Interpretation Code Description Data Apurva rce(s) Supporting Document(s) TOTAL PROTEIN 5.4 g/dL (6.4-8.2) L [facility] ALBUMIN 2.3 g/dL (3.2-4.5) L [facility] GLOBULIN 3.1 g/dL (2.7-4.3) [facility] ALB/GLOB RATIO 0.7 RATIO [facility] BILIRUBIN,TOTAL 0.5 mg/dL (0.0-1.0) [facility] PLEASE NOTE:Total bilirubin results may be falselyelevated in patients taking Eltrombopag. BILIRUBIN,CONJUGATED 0.3 mg/dL (0.0-0.3) [facility] BILIRUBIN,UNCONJ. 0.2 mg/dL (0.0-0.7) [facility] ALKALINE PHOSPHATASE 105 U/L (45-117) [facility] AST (SGOT) 41 U/L (11-39) H [facility] ALT (SGPT) 33 U/L (12-78) [facility] ID Date Data Source [id number] 05/07/2020 08:01:54 AM EDT [facility] Name Value Range Interpretation Code Description Data Apurva rce(s) Supporting Document(s) SODIUM 138 mmol/L (136-145) [facility] POTASSIUM 3.8 mmol/L (3.6-5.2) [facility] CHLORIDE 104 mmol/L (100-108) [facility] CO2 24 mmol/L (22-31) [facility] ANION GAP 10 mmol/L (7-16) [facility] UREA NITROGEN 5 mg/dL (7-24) L [facility] CREATININE 0.80 mg/dL (0.60-1.00) [facility] BUN/CREAT RATIO 6.3 RATIO (10.0-20.0) L [facility] GLUCOSE 98 mg/dL (70-99) [facility] CALCIUM 8.3 mg/dL (8.4-10.2) L [facility] GFR >60 ml/min/1.73m2 (>59) [facility] GFR ( AMER) >60 ml/min/1.73m2 (>59) [facility] GFR INTERPRETATION Lab [facility] --NORMAL KIDNEY FUNCTION OR MILD DISEASE - GFR >OR= 60CHRONIC KIDNEY DISEASE - GFR 15 - 59RENAL FAILURE - GFR <15 Est. GFR calculation based on the MDRDstudy equation, which assumes a steadystate for creatinine. Est. GFR should notbe used for medication dosing. ID Date Data Source [id number] 05/07/2020 07:29:24 AM EDT [facility] Name Value Range Interpretation Code Description Data Apurva rce(s) Supporting Document(s) APTT 38.9 s (22.0-34.3) H [facility] ID Date Data Source [id number] 05/07/2020 07:18:03 AM EDT [facility] Name Value Range Interpretation Code Description Data Apurva rce(s) Supporting Document(s) WBC 9.1 10*3/uL (4.1-11.0) [facility] [place] RBC 2.71 10*6/uL (4.00-5.40) L [facility] HGB 8.6 g/dL (12.0-16.0) L [facility] HCT 25.9 % (36.0-47.0) L [facility] MCV 95.5 fL (80.0-95.0) H [facility] MCH 31.7 pg (27.0-32.0) [facility] MCHC 33.2 g/dL (32.0-36.0) [facility] RDW 16.8 % (10.5-14.5) H [facility] PLT 448 10*3/uL (150-450) [facility] MPV 9.8 fL (7.1-10.7) [facility] NEUT % 68.9 % (35.0-75.0) [facility] LYMPH % 18.3 % (16.0-52.0) [facility] MONO % 9.2 % (0.0-8.0) H [facility] EOS % 2.5 % (0.0-5.0) [facility] BASO % 1.1 % (0.0-4.0) [facility] NEUT # 6.2 10*3/uL (1.8-7.7) [facility] LYMPH # 1.7 10*3/uL (1.2-4.8) [facility] MONO # 0.8 10*3/uL (0.0-0.8) [facility] Eosinophils [#/volume] in Blood by Automated count 0.2 10*3/uL (0.0-0 .5) [facility] STEIN BASO # 0.1 10*3/uL (0.0-0.2) [facility] RE[facility] Y ID Date Data Source [id number] 05/06/2020 05:45:01 PM EDT [facility] Name Value Range Interpretation Code Description Data Apurva rce(s) Supporting Document(s) HGB 9.2 g/dL (12.0-16.0) L [facility] HCT 28.2 % (36.0-47.0) L [facility] RE[facility] Y ID Date Data Source [id number] 05/08/2020 04:04:00 PM EDT [facility] [id number] [place] [place], [place] [address]UGEPSSC NAME: ALEX JAMESDATE OF : 2REPORT: DISCHARGE SUMMARYPATIENT NUMBER: [id number] STATUS: IPMEDICAL RECORD NUMBER: [id number] OF ADMISSION: 04/25/2020DATE OF DISCHARGE: 05/06/2020ROOM: 00DISCHARGE/TRANSFER [...] where [place] is. [place] Otherwise, she will be sent upstairs with asitter. She is to continue on the thiamine. GI will continue to followher.DICTATED BY: WADE Elizabethictated: 05/06/2020 12:51DT: 05/06/2020 13:34Job #: [id number]: [facility] enerated reports are notconfirmed or authenticated unless they are signed by the providerElectronically Authenticated by:LOR PELAEZ MD On 05/08/2020 04:04 PM EDT Name Value Range Interpretation Code Description Data Apurva rce(s) Supporting Document(s) ID Date Data Source [id number] 05/06/2020 11:09:23 AM EDT [facility] Name Value Range Interpretation Code Description Data Apurva rce(s) Supporting Document(s) APTT 57.0 s (22.0-34.3) H [facility] ID Date Data Source [id number] 05/06/2020 04:42:35 AM EDT [facility] Name Value Range Interpretation Code Description Data Apurva rce(s) Supporting Document(s) WBC 8.3 10*3/uL (4.1-11.0) [facility] [place] RBC 2.93 10*6/uL (4.00-5.40) L [facility] HGB 9.0 g/dL (12.0-16.0) L [facility] HCT 27.7 % (36.0-47.0) L [facility] MCV 94.7 fL (80.0-95.0) [facility] MCH 30.8 pg (27.0-32.0) [facility] MCHC 32.5 g/dL (32.0-36.0) [facility] RDW 17.0 % (10.5-14.5) H [facility] PLT 490 10*3/uL (150-450) H [facility] MPV 8.7 fL (7.1-10.7) [facility] ID Date Data Source [id number] 05/06/2020 04:53:50 AM EDT [facility] Name Value Range Interpretation Code Description Data Apurva rce(s) Supporting Document(s) APTT 60.8 s (22.0-34.3) H [facility] ID Date Data Source [id number] 05/06/2020 03:29:44 AM EDT [facility] Name Value Range Interpretation Code Description Data Apurva rce(s) Supporting Document(s) PHOSPHORUS 3.0 mg/dL (2.5-4.5) [facility] ID Date Data Source [id number] 05/06/2020 03:29:44 AM EDT [facility] Name Value Range Interpretation Code Description Data Apurva rce(s) Supporting Document(s) SODIUM 142 mmol/L (136-145) [facility] POTASSIUM 3.6 mmol/L (3.6-5.2) [facility] CHLORIDE 107 mmol/L (100-108) [facility] CO2 27 mmol/L (22-31) [facility] ANION GAP 8 mmol/L (7-16) [facility] UREA NITROGEN 5 mg/dL (7-24) L [facility] CREATININE 0.74 mg/dL (0.60-1.00) [facility] BUN/CREAT RATIO 6.8 RATIO (10.0-20.0) L [facility] GLUCOSE 102 mg/dL (70-99) H [facility] CALCIUM 8.3 mg/dL (8.4-10.2) L [facility] TOTAL PROTEIN 5.8 g/dL (6.4-8.2) L [facility] ALBUMIN 2.5 g/dL (3.2-4.5) L [facility] GLOBULIN 3.3 g/dL (2.7-4.3) [facility] ALB/GLOB RATIO 0.8 RATIO [facility] ALKALINE PHOSPHATASE 120 U/L (45-117) H [facility] BILIRUBIN,TOTAL 0.4 mg/dL (0.0-1.0) [facility] PLEASE NOTE:Total bilirubin results may be falselyelevated in patients taking Eltrombopag. AST (SGOT) 51 U/L (11-39) H [facility] ALT (SGPT) 40 U/L (12-78) [facility] GFR >60 ml/min/1.73m2 (>59) [facility] GFR ( AMER) >60 ml/min/1.73m2 (>59) [facility] GFR INTERPRETATION [facility] --NORMAL KIDNEY FUNCTION OR MILD DISEASE - GFR >OR= 60CHRONIC KIDNEY DISEASE - GFR 15 - 59RENAL FAILURE - GFR <15 Est. GFR calculation based on the MDRDstudy equation, which assumes a steadystate for creatinine. Est. GFR should notbe used for medication dosing. ID Date Data Source [id number] 05/06/2020 03:29:44 AM EDT [facility] Name Value Range Interpretation Code Description Data Apurva rce(s) Supporting Document(s) MAGNESIUM 1.8 mg/dL (1.7-2.4) [facility] ID Date Data Source [id number] 05/06/2020 03:27:19 AM EDT [facility] Name Value Range Interpretation Code Description Data Apruva rce(s) Supporting Document(s) CALCIUM IONIZED 5.04 mg/dL (4.64-5.28) [facility] IONIZED CALCIUM NORMALIZED TO PH 7.40 AN D 37 DEGREES C. ID Date Data Source [id number] 05/06/2020 02:33:31 AM EDT [facility] Name Value Range Interpretation Code Description Data Apurva rce(s) Supporting Document(s) PT 11.9 s (9.2-11.9) [facility] INR 1.14 [facility] SUGGESTED THERAPEUTIC RANGES USING INR F ORSTABILIZED ANTICOAGULATED PATIENTS:STANDARD DOSE THERAPY INR 2.0-3.0 DVT, PE, PREVENT DVT OR EMBOLISMHIGH DOSE THERAPY INR 2.5-3.5 PREVENT EMBOLISM FROM MECHANICAL HEART VALVE ID Date Data Source [id number] 05/05/2020 11:02:52 PM EDT [facility] Name Value Range Interpretation Code Description Data Apurva rce(s) Supporting Document(s) WBC 8.7 10*3/uL (4.1-11.0) [facility] [place] RBC 2.83 10*6/uL (4.00-5.40) L [facility] HGB 9.2 g/dL (12.0-16.0) L [facility] HCT 27.1 % (36.0-47.0) L [facility] MCV 95.8 fL (80.0-95.0) H [facility] MCH 32.6 pg (27.0-32.0) H [facility] MCHC 34.0 g/dL (32.0-36.0) [facility] RDW 17.0 % (10.5-14.5) H [facility] PLT 447 10*3/uL (150-450) [facility] MPV 8.5 fL (7.1-10.7) [facility] ID Date Data Source [id number] 05/05/2020 09:17:54 PM EDT [facility] Name Value Range Interpretation Code Description Data Apurva rce(s) Supporting Document(s) APTT 54.7 s (22.0-34.3) H [facility] ID Date Data Source [id number] 05/05/2020 05:30:38 PM EDT [facility] Name Value Range Interpretation Code Description Data Apurva rce(s) Supporting Document(s) WBC 7.5 10*3/uL (4.1-11.0) [facility] [place] RBC 3.00 10*6/uL (4.00-5.40) L [facility] HGB 9.2 g/dL (12.0-16.0) L [facility] HCT 28.8 % (36.0-47.0) L [facility] MCV 96.2 fL (80.0-95.0) H [facility] MCH 30.7 pg (27.0-32.0) [facility] MCHC 32.0 g/dL (32.0-36.0) [facility] RDW 17.0 % (10.5-14.5) H [facility] PLT 461 10*3/uL (150-450) H [facility] MPV 8.9 fL (7.1-10.7) [facility] ID Date Data Source [id number] 05/05/2020 03:03:15 PM EDT [facility] Name Value Range Interpretation Code Description Data Apurva rce(s) Supporting Document(s) APTT 54.6 s (22.0-34.3) H [facility] ID Date Data Source [id number] 05/05/2020 11:11:21 AM EDT [facility] Name Value Range Interpretation Code Description Data Apurva rce(s) Supporting Document(s) PT 11.8 s (9.2-11.9) [facility] INR 1.13 [facility] SUGGESTED THERAPEUTIC RANGES USING INR F ORSTABILIZED ANTICOAGULATED PATIENTS:STANDARD DOSE THERAPY INR 2.0-3.0 DVT, PE, PREVENT DVT OR EMBOLISMHIGH DOSE THERAPY INR 2.5-3.5 PREVENT EMBOLISM FROM MECHANICAL HEART VALVE ID Date Data Source [id number] 05/05/2020 11:01:23 AM EDT [facility] Name Value Range Interpretation Code Description Data Apurva rce(s) Supporting Document(s) WBC 7.3 10*3/uL (4.1-11.0) [facility] [place] RBC 2.99 10*6/uL (4.00-5.40) L [facility] HGB 9.5 g/dL (12.0-16.0) L [facility] HCT 28.8 % (36.0-47.0) L [facility] MCV 96.3 fL (80.0-95.0) H [facility] MCH 31.9 pg (27.0-32.0) [facility] MCHC 33.1 g/dL (32.0-36.0) [facility] RDW 17.2 % (10.5-14.5) H [facility] PLT 446 10*3/uL (150-450) [facility] MPV 8.9 fL (7.1-10.7) [facility] ID Date Data Source [id number] 05/05/2020 09:36:56 AM EDT [facility] Name Value Range Interpretation Code Description Data Apurva rce(s) Supporting Document(s) SODIUM 144 mmol/L (136-145) [facility] POTASSIUM 3.9 mmol/L (3.6-5.2) [facility] CHLORIDE 108 mmol/L (100-108) [facility] CO2 28 mmol/L (22-31) [facility] ANION GAP 8 mmol/L (7-16) [facility] UREA NITROGEN 5 mg/dL (7-24) L [facility] CREATININE 0.83 mg/dL (0.60-1.00) [facility] BUN/CREAT RATIO 6.0 RATIO (10.0-20.0) L [facility] GLUCOSE 117 mg/dL (70-99) H [facility] CALCIUM 8.1 mg/dL (8.4-10.2) L [facility] GFR >60 ml/min/1.73m2 (>59) [facility] GFR ( AMER) >60 ml/min/1.73m2 (>59) [facility] GFR INTERPRETATION [facility] --NORMAL KIDNEY FUNCTION OR MILD DISEASE - GFR >OR= 60CHRONIC KIDNEY DISEASE - GFR 15 - 59RENAL FAILURE - GFR <15 Est. GFR calculation based on the MDRDstudy equation, which assumes a steadystate for creatinine. Est. GFR should notbe used for medication dosing. ID Date Data Source [id number] 05/05/2020 09:15:28 AM EDT [facility] Name Value Range Interpretation Code Description Data Apurva rce(s) Supporting Document(s) APTT 55.7 s (22.0-34.3) H [facility] ID Date Data Source [id number] 05/05/2020 03:35:09 AM EDT [facility] Name Value Range Interpretation Code Description Data Apurva rce(s) Supporting Document(s) CALCIUM IONIZED 4.88 mg/dL (4.64-5.28) [facility] IONIZED CALCIUM NORMALIZED TO PH 7.40 AN D 37 DEGREES C. ID Date Data Source [id number] 05/05/2020 03:33:59 AM EDT [facility] Name Value Range Interpretation Code Description Data Apurva rce(s) Supporting Document(s) PHOSPHORUS 2.8 mg/dL (2.5-4.5) [facility] ID Date Data Source [id number] 05/05/2020 03:33:59 AM EDT [facility] Name Value Range Interpretation Code Description Data Apurva rce(s) Supporting Document(s) MAGNESIUM 2.0 mg/dL (1.7-2.4) [facility] ID Date Data Source [id number] 05/05/2020 03:33:59 AM EDT [facility] Name Value Range Interpretation Code Description Data Apurva rce(s) Supporting Document(s) SODIUM 144 mmol/L (136-145) [facility] POTASSIUM 4.0 mmol/L (3.6-5.2) [facility] CHLORIDE 108 mmol/L (100-108) [facility] CO2 28 mmol/L (22-31) [facility] ANION GAP 8 mmol/L (7-16) [facility] UREA NITROGEN 6 mg/dL (7-24) L [facility] CREATININE 0.90 mg/dL (0.60-1.00) [facility] BUN/CREAT RATIO 6.7 RATIO (10.0-20.0) L [facility] GLUCOSE 121 mg/dL (70-99) H [facility] CALCIUM 8.2 mg/dL (8.4-10.2) L [facility] TOTAL PROTEIN 5.8 g/dL (6.4-8.2) L [facility] ALBUMIN 2.5 g/dL (3.2-4.5) L [facility] GLOBULIN 3.3 g/dL (2.7-4.3) [facility] ALB/GLOB RATIO 0.8 RATIO [facility] ALKALINE PHOSPHATASE 121 U/L (45-117) H [facility] BILIRUBIN,TOTAL 0.6 mg/dL (0.0-1.0) [facility] PLEASE NOTE:Total bilirubin results may be falselyelevated in patients taking Eltrombopag. AST (SGOT) 55 U/L (11-39) H [facility] ALT (SGPT) 47 U/L (12-78) [facility] GFR >60 ml/min/1.73m2 (>59) [facility] GFR ( AMER) >60 ml/min/1.73m2 (>59) [facility] GFR INTERPRETATION [facility] --NORMAL KIDNEY FUNCTION OR MILD DISEASE - GFR >OR= 60CHRONIC KIDNEY DISEASE - GFR 15 - 59RENAL FAILURE - GFR <15 Est. GFR calculation based on the MDRDstudy equation, which assumes a steadystate for creatinine. Est. GFR should notbe used for medication dosing. ID Date Data Source [id number] 05/05/2020 02:41:39 AM EDT [facility] Name Value Range Interpretation Code Description Data Apurva rce(s) Supporting Document(s) APTT 86.3 s (22.0-34.3) H [facility] ID Date Data Source [id number] 05/05/2020 02:33:43 AM EDT [facility] Name Value Range Interpretation Code Description Data Apurva rce(s) Supporting Document(s) WBC 7.1 10*3/uL (4.1-11.0) [facility] [place] RBC 3.00 10*6/uL (4.00-5.40) L [facility] HGB 9.3 g/dL (12.0-16.0) L [facility] HCT 28.7 % (36.0-47.0) L [facility] MCV 95.5 fL (80.0-95.0) H [facility] MCH 30.9 pg (27.0-32.0) [facility] MCHC 32.4 g/dL (32.0-36.0) [facility] RDW 17.5 % (10.5-14.5) H [facility] PLT 437 10*3/uL (150-450) [facility] MPV 8.5 fL (7.1-10.7) [facility] ID Date Data Source [id number] 05/04/2020 08:27:24 PM EDT [facility] Name Value Range Interpretation Code Description Data Apurva rce(s) Supporting Document(s) SODIUM 142 mmol/L (136-145) [facility] POTASSIUM 3.8 mmol/L (3.6-5.2) [facility] CHLORIDE 105 mmol/L (100-108) [facility] CO2 30 mmol/L (22-31) [facility] ANION GAP 7 mmol/L (7-16) [facility] UREA NITROGEN 6 mg/dL (7-24) L [facility] CREATININE 0.93 mg/dL (0.60-1.00) [facility] BUN/CREAT RATIO 6.5 RATIO (10.0-20.0) L [facility] GLUCOSE 114 mg/dL (70-99) H [facility] CALCIUM 8.4 mg/dL (8.4-10.2) [facility] GFR >60 ml/min/1.73m2 (>59) [facility] GFR ( AMER) >60 ml/min/1.73m2 (>59) [facility] GFR INTERPRETATION Lab [facility] --NORMAL KIDNEY FUNCTION OR MILD DISEASE - GFR >OR= 60CHRONIC KIDNEY DISEASE - GFR 15 - 59RENAL FAILURE - GFR <15 Est. GFR calculation based on the MDRDstudy equation, which assumes a steadystate for creatinine. Est. GFR should notbe used for medication dosing. ID Date Data Source [id number] 05/04/2020 04:56:44 PM EDT [facility] Name Value Range Interpretation Code Description Data Apurva rce(s) Supporting Document(s) APTT 64.9 s (22.0-34.3) H [facility] ID Date Data Source [id number] 05/04/2020 02:51:38 PM EDT [facility] Name Value Range Interpretation Code Description Data Apurva rce(s) Supporting Document(s) SODIUM 143 mmol/L (136-145) [facility] POTASSIUM 4.3 mmol/L (3.6-5.2) [facility] CHLORIDE 105 mmol/L (100-108) [facility] CO2 31 mmol/L (22-31) [facility] ANION GAP 7 mmol/L (7-16) [facility] UREA NITROGEN 6 mg/dL (7-24) L [facility] CREATININE 0.93 mg/dL (0.60-1.00) [facility] BUN/CREAT RATIO 6.5 RATIO (10.0-20.0) L [facility] GLUCOSE 113 mg/dL (70-99) H [facility] CALCIUM 8.6 mg/dL (8.4-10.2) [facility] GFR >60 ml/min/1.73m2 (>59) [facility] GFR ( AMER) >60 ml/min/1.73m2 (>59) [facility] GFR INTERPRETATION [facility] --NORMAL KIDNEY FUNCTION OR MILD DISEASE - GFR >OR= 60CHRONIC KIDNEY DISEASE - GFR 15 - 59RENAL FAILURE - GFR <15 Est. GFR calculation based on the MDRDstudy equation, which assumes a steadystate for creatinine. Est. GFR should notbe used for medication dosing. ID Date Data Source [id number] 05/04/2020 10:31:51 AM EDT [facility] Name Value Range Interpretation Code Description Data Apurva rce(s) Supporting Document(s) PHOSPHORUS 3.3 mg/dL (2.5-4.5) [facility] ID Date Data Source [id number] 05/04/2020 10:31:51 AM EDT [facility] Name Value Range Interpretation Code Description Data Apurva rce(s) Supporting Document(s) SODIUM 143 mmol/L (136-145) [facility] POTASSIUM 3.7 mmol/L (3.6-5.2) [facility] CHLORIDE 105 mmol/L (100-108) [facility] CO2 33 mmol/L (22-31) H [facility] ANION GAP 5 mmol/L (7-16) L [facility] UREA NITROGEN 5 mg/dL (7-24) L [facility] CREATININE 0.78 mg/dL (0.60-1.00) [facility] BUN/CREAT RATIO 6.4 RATIO (10.0-20.0) L [facility] GLUCOSE 98 mg/dL (70-99) [facility] CALCIUM 8.6 mg/dL (8.4-10.2) [facility] GFR >60 ml/min/1.73m2 (>59) [facility] GFR ([facility]) >60 ml/min/1.73m2 (>59) [facility] GFR INTERPRETATION [facility] --NORMAL KIDNEY FUNCTION OR MILD DISEASE - GFR >OR= 60CHRONIC KIDNEY DISEASE - GFR 15 - 59RENAL FAILURE - GFR <15 Est. GFR calculation based on the MDRDstudy equation, which assumes a steadystate for creatinine. Est. GFR should notbe used for medication dosing. ID Date Data Source [id number] 05/04/2020 10:17:46 AM EDT [facility] Name Value Range Interpretation Code Description Data Apurva rce(s) Supporting Document(s) POTASSIUM 3.7 mmol/L (3.6-5.2) [facility] ID Date Data Source [id number] 05/04/2020 10:01:01 AM EDT [facility] Name Value Range Interpretation Code Description Data Apurva rce(s) Supporting Document(s) APTT 62.5 s (22.0-34.3) H [facility] ID Date Data Source [id number] 05/04/2020 02:52:18 AM EDT [facility] Name Value Range Interpretation Code Description Data Apurva rce(s) Supporting Document(s) CALCIUM IONIZED 4.92 mg/dL (4.64-5.28) [facility] IONIZED CALCIUM NORMALIZED TO PH 7.40 AN D 37 DEGREES C. ID Date Data Source [id number] 05/04/2020 02:49:43 AM EDT [facility] Name Value Range Interpretation Code Description Data Apurva rce(s) Supporting Document(s) PHOSPHORUS 3.6 mg/dL (2.5-4.5) [facility] ID Date Data Source [id number] 05/04/2020 02:49:43 AM EDT [facility] Name Value Range Interpretation Code Description Data Apurva rce(s) Supporting Document(s) MAGNESIUM 2.7 mg/dL (1.7-2.4) H [facility] ID Date Data Source [id number] 05/04/2020 02:49:43 AM EDT [facility] Name Value Range Interpretation Code Description Data Apurva rce(s) Supporting Document(s) SODIUM 146 mmol/L (136-145) H [facility] POTASSIUM 3.7 mmol/L (3.6-5.2) [facility] CHLORIDE 106 mmol/L (100-108) [facility] CO2 32 mmol/L (22-31) H [facility] ANION GAP 8 mmol/L (7-16) [facility] UREA NITROGEN 4 mg/dL (7-24) L [facility] CREATININE 0.79 mg/dL (0.60-1.00) [facility] BUN/CREAT RATIO 5.1 RATIO (10.0-20.0) L [facility] GLUCOSE 102 mg/dL (70-99) H [facility] CALCIUM 8.5 mg/dL (8.4-10.2) [facility] TOTAL PROTEIN 5.9 g/dL (6.4-8.2) [facility] ALBUMIN 2.6 g/dL (3.2-4.5) [facility] GLOBULIN 3.3 g/dL (2.7-4.3) [facility] ALB/GLOB RATIO 0.8 RATIO [facility] ALKALINE PHOSPHATASE 130 U/L (45-117) [facility] BILIRUBIN,TOTAL 0.7 mg/dL (0.0-1.0) [facility] PLEASE NOTE:Total bilirubin results may be falselyelevated in patients taking Eltrombopag. AST (SGOT) 46 U/L (11-39) [facility] ALT (SGPT) 52 U/L (12-78) [facility] GFR >60 ml/min/1.73m2 (>59) [facility] GFR ( AMER) >60 ml/min/1.73m2 (>59) [facility] GFR INTERPRETATION [facility] --NORMAL KIDNEY FUNCTION OR MILD DISEASE - GFR >OR= 60CHRONIC KIDNEY DISEASE - GFR 15 - 59RENAL FAILURE - GFR <15 Est. GFR calculation based on the MDRDstudy equation, which assumes a steadystate for creatinine. Est. GFR should notbe used for medication dosing. ID Date Data Source [id number] 05/04/2020 02:19:09 AM EDT [facility] Name Value Range Interpretation Code Description Data Apurva rce(s) Supporting Document(s) APTT 43.3 s (22.0-34.3) [facility] ID Date Data Source [id number] 05/04/2020 02:06:17 AM EDT [facility] Name Value Range Interpretation Code Description Data Apurva rce(s) Supporting Document(s) WBC 6.7 10*3/uL (4.1-11.0) [facility] RBC 3.22 10*6/uL (4.00-5.40) [facility] HGB 9.9 g/dL (12.0-16.0) [facility] HCT 30.8 % (36.0-47.0) [facility] MCV 95.6 fL (80.0-95.0) [facility] MCH 30.6 pg (27.0-32.0) [facility] MCHC 32.0 g/dL (32.0-36.0) [facility] RDW 16.9 % (10.5-14.5) [facility] PLT 425 10*3/uL (150-450) [facility] MPV 8.5 fL (7.1-10.7) [facility] ID Date Data Source [id number] 05/03/2020 09:26:23 PM EDT [facility] Name Value Range Interpretation Code Description Data Apurva rce(s) Supporting Document(s) PHOSPHORUS 3.7 mg/dL (2.5-4.5) [facility] ID Date Data Source [id number] 05/03/2020 09:26:23 PM EDT [facility] Name Value Range Interpretation Code Description Data Apurva rce(s) Supporting Document(s) MAGNESIUM 1.7 mg/dL (1.7-2.4) [facility] ID Date Data Source [id number] 05/03/2020 09:26:23 PM EDT [facility] Name Value Range Interpretation Code Description Data Apurva rce(s) Supporting Document(s) SODIUM 147 mmol/L (136-145) [facility] POTASSIUM 4.1 mmol/L (3.6-5.2) [facility] CHLORIDE 107 mmol/L (100-108) [facility] CO2 32 mmol/L (22-31) [facility] ANION GAP 8 mmol/L (7-16) [facility] UREA NITROGEN 4 mg/dL (7-24) [facility] CREATININE 0.78 mg/dL (0.60-1.00) [facility] BUN/CREAT RATIO 5.1 RATIO (10.0-20.0) [facility] GLUCOSE 94 mg/dL (70-99) [facility] CALCIUM 8.4 mg/dL (8.4-10.2) [facility] GFR >60 ml/min/1.73m2 (>59) [facility] GFR ( AMER) >60 ml/min/1.73m2 (>59) [facility] GFR INTERPRETATION [facility] --NORMAL KIDNEY FUNCTION OR MILD DISEASE - GFR >OR= 60CHRONIC KIDNEY DISEASE - GFR 15 - 59RENAL FAILURE - GFR <15 Est. GFR calculation based on the MDRDstudy equation, which assumes a steadystate for creatinine. Est. GFR should notbe used for medication dosing. ID Date Data Source [id number] 05/03/2020 02:35:10 PM EDT [facility] Name Value Range Interpretation Code Description Data Apurva rce(s) Supporting Document(s) PHOSPHORUS 3.8 mg/dL (2.5-4.5) [facility] ID Date Data Source [id number] 05/03/2020 02:35:10 PM EDT [facility] Name Value Range Interpretation Code Description Data Apurva rce(s) Supporting Document(s) MAGNESIUM 1.8 mg/dL (1.7-2.4) [facility] ID Date Data Source [id number] 05/03/2020 02:35:10 PM EDT [facility] Name Value Range Interpretation Code Description Data Apurva rce(s) Supporting Document(s) SODIUM 147 mmol/L (136-145) [facility] POTASSIUM 3.5 mmol/L (3.6-5.2) [facility] CHLORIDE 107 mmol/L (100-108) [facility] CO2 31 mmol/L (22-31) [facility] ANION GAP 9 mmol/L (7-16) [facility] UREA NITROGEN 4 mg/dL (7-24) [facility] CREATININE 0.79 mg/dL (0.60-1.00) [facility] BUN/CREAT RATIO 5.1 RATIO (10.0-20.0) [facility] GLUCOSE 96 mg/dL (70-99) [facility] CALCIUM 7.8 mg/dL (8.4-10.2) [facility] GFR >60 ml/min/1.73m2 (>59) [facility] GFR ([facility] AMER) >60 ml/min/1.73m2 (>59) [facility] GFR INTERPRETATION [facility] --NORMAL KIDNEY FUNCTION OR MILD DISEASE - GFR >OR= 60CHRONIC KIDNEY DISEASE - GFR 15 - 59RENAL FAILURE - GFR <15 Est. GFR calculation based on the MDRDstudy equation, which assumes a steadystate for creatinine. Est. GFR should notbe used for medication dosing. ID Date Data Source [id number] 05/03/2020 11:08:49 AM EDT [facility] Name Value Range Interpretation Code Description Data Apurva rce(s) Supporting Document(s) AMMONIA <10 umol/L (11-32) [facility] ID Date Data Source [id number] 05/03/2020 10:51:22 AM EDT [facility] Name Value Range Interpretation Code Description Data Apurva rce(s) Supporting Document(s) TSH,ULTRASENSITIVE @ 3.392 mIU/L (0.360-4.170) [facility] AT [address] [place] [id number] ID Date Data Source [id number] 05/03/2020 08:56:50 AM EDT [facility] Name Value Range Interpretation Code Description Data Apurva rce(s) Supporting Document(s) SODIUM 147 mmol/L (136-145) [facility] POTASSIUM 4.0 mmol/L (3.6-5.2) [facility] CHLORIDE 108 mmol/L (100-108) [facility] CO2 31 mmol/L (22-31) [facility] ANION GAP 8 mmol/L (7-16) [facility] UREA NITROGEN 4 mg/dL (7-24) [facility] CREATININE 0.78 mg/dL (0.60-1.00) [facility] BUN/CREAT RATIO 5.1 RATIO (10.0-20.0) [facility] GLUCOSE 106 mg/dL (70-99) [facility] CALCIUM 8.2 mg/dL (8.4-10.2) [facility] GFR >60 ml/min/1.73m2 (>59) [facility] GFR ( AMER) >60 ml/min/1.73m2 (>59) [facility] GFR INTERPRETATION [facility] --NORMAL KIDNEY FUNCTION OR MILD DISEASE - GFR >OR= 60CHRONIC KIDNEY DISEASE - GFR 15 - 59RENAL FAILURE - GFR <15 Est. GFR calculation based on the MDRDstudy equation, which assumes a steadystate for creatinine. Est. GFR should notbe used for medication dosing. ID Date Data Source [id number] 05/03/2020 08:56:50 AM EDT [facility] Name Value Range Interpretation Code Description Data Apurva rce(s) Supporting Document(s) MAGNESIUM 1.8 mg/dL (1.7-2.4) [facility] ID Date Data Source [id number] 05/03/2020 08:56:50 AM EDT [facility] Name Value Range Interpretation Code Description Data Apurva rce(s) Supporting Document(s) PHOSPHORUS 3.4 mg/dL (2.5-4.5) [facility] ID Date Data Source [id number] 05/03/2020 02:34:02 AM EDT [facility] Name Value Range Interpretation Code Description Data Apurva rce(s) Supporting Document(s) CALCIUM IONIZED 5.04 mg/dL (4.64-5.28) [facility] IONIZED CALCIUM NORMALIZED TO PH 7.40 AN D 37 DEGREES C. ID Date Data Source [id number] 05/03/2020 02:27:36 AM EDT [facility] Name Value Range Interpretation Code Description Data Apurva rce(s) Supporting Document(s) PHOSPHORUS 3.7 mg/dL (2.5-4.5) [facility] ID Date Data Source [id number] 05/03/2020 02:27:36 AM EDT [facility] Name Value Range Interpretation Code Description Data Apurva rce(s) Supporting Document(s) MAGNESIUM 1.8 mg/dL (1.7-2.4) [facility] ID Date Data Source [id number] 05/03/2020 02:27:36 AM EDT [facility] Name Value Range Interpretation Code Description Data Apurva rce(s) Supporting Document(s) SODIUM 147 mmol/L (136-145) [facility] POTASSIUM 3.7 mmol/L (3.6-5.2) [facility] CHLORIDE 107 mmol/L (100-108) [facility] CO2 33 mmol/L (22-31) [facility] ANION GAP 7 mmol/L (7-16) [facility] UREA NITROGEN 4 mg/dL (7-24) [facility] CREATININE 0.76 mg/dL (0.60-1.00) [facility] BUN/CREAT RATIO 5.3 RATIO (10.0-20.0) [facility] GLUCOSE 91 mg/dL (70-99) [facility] CALCIUM 8.2 mg/dL (8.4-10.2) [facility] TOTAL PROTEIN 5.7 g/dL (6.4-8.2) [facility] ALBUMIN 2.6 g/dL (3.2-4.5) [facility] GLOBULIN 3.1 g/dL (2.7-4.3) [facility] ALB/GLOB RATIO 0.8 RATIO [facility] ALKALINE PHOSPHATASE 117 U/L (45-117) [facility] BILIRUBIN,TOTAL 0.8 mg/dL (0.0-1.0) [facility] PLEASE NOTE:Total bilirubin results may be falselyelevated in patients taking Eltrombopag. AST (SGOT) 55 U/L (11-39) [facility] ALT (SGPT) 62 U/L (12-78) [facility] GFR >60 ml/min/1.73m2 (>59) [facility] GFR ( AMER) >60 ml/min/1.73m2 (>59) [facility] GFR INTERPRETATION [facility] --NORMAL KIDNEY FUNCTION OR MILD DISEASE - GFR >OR= 60CHRONIC KIDNEY DISEASE - GFR 15 - 59RENAL FAILURE - GFR <15 Est. GFR calculation based on the MDRDstudy equation, which assumes a steadystate for creatinine. Est. GFR should notbe used for medication dosing. ID Date Data Source [id number] 05/03/2020 01:59:12 AM EDT [facility] Name Value Range Interpretation Code Description Data Apurva rce(s) Supporting Document(s) APTT 70.7 s (22.0-34.3) [facility] ID Date Data Source [id number] 05/03/2020 01:42:52 AM EDT [facility] Name Value Range Interpretation Code Description Data Apurva rce(s) Supporting Document(s) WBC 6.3 10*3/uL (4.1-11.0) [facility] RBC 3.21 10*6/uL (4.00-5.40) [facility] HGB 9.8 g/dL (12.0-16.0) [facility] HCT 30.7 % (36.0-47.0) [facility] MCV 95.4 fL (80.0-95.0) [facility] MCH 30.6 pg (27.0-32.0) [facility] MCHC 32.0 g/dL (32.0-36.0) [facility] RDW 17.0 % (10.5-14.5) [facility] PLT 341 10*3/uL (150-450) [facility] MPV 8.2 fL (7.1-10.7) [facility] ID Date Data Source [id number] 05/02/2020 09:01:03 PM EDT [facility] Name Value Range Interpretation Code Description Data Apurva rce(s) Supporting Document(s) PHOSPHORUS 3.5 mg/dL (2.5-4.5) [facility] ID Date Data Source [id number] 05/02/2020 09:01:03 PM EDT [facility] Name Value Range Interpretation Code Description Data Apurva rce(s) Supporting Document(s) MAGNESIUM 2.0 mg/dL (1.7-2.4) [facility] ID Date Data Source [id number] 05/02/2020 09:01:03 PM EDT [facility] Name Value Range Interpretation Code Description Data Apurva rce(s) Supporting Document(s) SODIUM 147 mmol/L (136-145) [facility] POTASSIUM 3.6 mmol/L (3.6-5.2) [facility] CHLORIDE 108 mmol/L (100-108) [facility] CO2 33 mmol/L (22-31) [facility] ANION GAP 6 mmol/L (7-16) [facility] UREA NITROGEN 4 mg/dL (7-24) [facility] CREATININE 0.75 mg/dL (0.60-1.00) [facility] BUN/CREAT RATIO 5.3 RATIO (10.0-20.0) [facility] GLUCOSE 101 mg/dL (70-99) [facility] CALCIUM 8.3 mg/dL (8.4-10.2) [facility] GFR >60 ml/min/1.73m2 (>59) [facility] GFR ( AMER) >60 ml/min/1.73m2 (>59) [facility] GFR INTERPRETATION [facility] --NORMAL KIDNEY FUNCTION OR MILD DISEASE - GFR >OR= 60CHRONIC KIDNEY DISEASE - GFR 15 - 59RENAL FAILURE - GFR <15 Est. GFR calculation based on the MDRDstudy equation, which assumes a steadystate for creatinine. Est. GFR should notbe used for medication dosing. ID Date Data Source [id number] 05/02/2020 05:43:53 PM EDT [facility] Name Value Range Interpretation Code Description Data Apurva rce(s) Supporting Document(s) APTT 82.3 s (22.0-34.3) [facility] ID Date Data Source [id number] 05/02/2020 02:28:07 PM EDT [facility] Name Value Range Interpretation Code Description Data Apurva rce(s) Supporting Document(s) WBC 7.3 10*3/uL (4.1-11.0) [facility] [place] RBC 3.09 10*6/uL (4.00-5.40) [facility] HGB 9.5 g/dL (12.0-16.0) [facility] HCT 29.7 % (36.0-47.0) [facility] MCV 96.1 fL (80.0-95.0) [facility] MCH 30.7 pg (27.0-32.0) [facility] MCHC 31.9 g/dL (32.0-36.0) [facility] RDW 17.4 % (10.5-14.5) [facility] PLT 307 10*3/uL (150-450) [facility] MPV 8.1 fL (7.1-10.7) [facility] ID Date Data Source [id number] 05/02/2020 02:41:58 PM EDT [facility] Name Value Range Interpretation Code Description Data Apurva rce(s) Supporting Document(s) PHOSPHORUS 3.5 mg/dL (2.5-4.5) [facility] ID Date Data Source [id number] 05/02/2020 02:41:58 PM EDT [facility] Name Value Range Interpretation Code Description Data Apurva rce(s) Supporting Document(s) MAGNESIUM 2.2 mg/dL (1.7-2.4) [facility] ID Date Data Source [id number] 05/02/2020 02:41:58 PM EDT [facility] Name Value Range Interpretation Code Description Data Apurva rce(s) Supporting Document(s) SODIUM 148 mmol/L (136-145) [facility] POTASSIUM 4.0 mmol/L (3.6-5.2) [facility] CHLORIDE 110 mmol/L (100-108) [facility] CO2 33 mmol/L (22-31) [facility] ANION GAP 5 mmol/L (7-16) [facility] UREA NITROGEN 3 mg/dL (7-24) [facility] CREATININE 0.72 mg/dL (0.60-1.00) [facility] BUN/CREAT RATIO 4.2 RATIO (10.0-20.0) [facility] GLUCOSE 97 mg/dL (70-99) [facility] CALCIUM 8.3 mg/dL (8.4-10.2) [facility] GFR >60 ml/min/1.73m2 (>59) [facility] GFR ( AMER) >60 ml/min/1.73m2 (>59) [facility] GFR INTERPRETATION [facility] --NORMAL KIDNEY FUNCTION OR MILD DISEASE - GFR >OR= 60CHRONIC KIDNEY DISEASE - GFR 15 - 59RENAL FAILURE - GFR <15 Est. GFR calculation based on the MDRDstudy equation, which assumes a steadystate for creatinine. Est. GFR should notbe used for medication dosing. ID Date Data Source [id number] 05/02/2020 02:45:00 PM EDT [facility] Greg Garrido MA, [place], [place] [address]PATIENT NAME: ALEX JAMESDATE OF : 2REPORT: CONSULTATIONPATIENT NUMBER: [id number] STATUS: :ADDICTION MEDICINE CONSULTDATE OF CONSULTATION: 05/02/2020The patient is a 69-year-old female, [facility] She was reportedly drinking aliter of vodka a day, however, [facility] [...] When the patient's mental status improves, this appeals writer would be happy to complete an addiction medicine consult. However, at this time, that is not feasible.Please contact addiction medicine consult if there are any furtherquestions at [phone] or directly within the hospital at [phone]. Should the referring doctor prefer to have an addiction medicine consult completed with medical doctor, please contact us and we will make those arrangements.Thank you for your consultation referral.DICTATED BY: Greg Garrido MA, ANSONACDictated: 05/02/2020 12:49DT: 05/02/2020 12:54Job #: [id number]: [facility] computer generated reports are notconfirmed or authenticated unless they are signed by the providerElectronically Authenticated and Edited by:GREG GARRIDO On 05/02/2020 02:45 PM EDT Name Value Range Interpretation Code Description Data Apurva rce(s) Supporting Document(s) ID Date Data Source [id number] 05/02/2020 11:53:26 AM EDT [facility] Name Value Range Interpretation Code Description Data Apurva rce(s) Supporting Document(s) APTT 77.4 s (22.0-34.3) [facility] ID Date Data Source [id number] 05/02/2020 08:40:17 AM EDT [facility] Name Value Range Interpretation Code Description Data Apurva rce(s) Supporting Document(s) SODIUM 147 mmol/L (136-145) [facility] POTASSIUM 3.5 mmol/L (3.6-5.2) [facility] CHLORIDE 109 mmol/L (100-108) [facility] CO2 32 mmol/L (22-31) [facility] ANION GAP 6 mmol/L (7-16) [facility] UREA NITROGEN 3 mg/dL (7-24) [facility] CREATININE 0.70 mg/dL (0.60-1.00) [facility] BUN/CREAT RATIO 4.3 RATIO (10.0-20.0) [facility] GLUCOSE 112 mg/dL (70-99) [facility] CALCIUM 8.5 mg/dL (8.4-10.2) [facility] GFR >60 ml/min/1.73m2 (>59) [facility] GFR ( AMER) >60 ml/min/1.73m2 (>59) [facility] GFR INTERPRETATION [facility] --NORMAL KIDNEY FUNCTION OR MILD DISEASE - GFR >OR= 60CHRONIC KIDNEY DISEASE - GFR 15 - 59RENAL FAILURE - GFR <15 Est. GFR calculation based on the MDRDstudy equation, which assumes a steadystate for creatinine. Est. GFR should notbe used for medication dosing. ID Date Data Source [id number] 05/02/2020 08:40:17 AM EDT [facility] Name Value Range Interpretation Code Description Data Apurva rce(s) Supporting Document(s) MAGNESIUM 2.7 mg/dL (1.7-2.4) [facility] ID Date Data Source [id number] 05/02/2020 08:40:17 AM EDT [facility] Name Value Range Interpretation Code Description Data Apurva rce(s) Supporting Document(s) PHOSPHORUS 3.6 mg/dL (2.5-4.5) [facility] ID Date Data Source [id number] 05/02/2020 04:19:18 AM EDT [facility] Name Value Range Interpretation Code Description Data Apurva rce(s) Supporting Document(s) APTT 54.3 s (22.0-34.3) [facility] ID Date Data Source [id number] 05/02/2020 03:03:11 AM EDT [facility] Name Value Range Interpretation Code Description Data Apurva rce(s) Supporting Document(s) CALCIUM IONIZED 4.88 mg/dL (4.64-5.28) [facility] IONIZED CALCIUM NORMALIZED TO PH 7.40 AN D 37 DEGREES C. ID Date Data Source [id number] 05/02/2020 03:02:25 AM EDT [facility] Name Value Range Interpretation Code Description Data Apurva rce(s) Supporting Document(s) PHOSPHORUS 3.7 mg/dL (2.5-4.5) [facility] ID Date Data Source [id number] 05/02/2020 03:02:25 AM EDT [facility] Name Value Range Interpretation Code Description Data Apurva rce(s) Supporting Document(s) MAGNESIUM 1.7 mg/dL (1.7-2.4) [facility] ID Date Data Source [id number] 05/02/2020 03:02:25 AM EDT [facility] Name Value Range Interpretation Code Description Data Apurva rce(s) Supporting Document(s) SODIUM 150 mmol/L (136-145) [facility] POTASSIUM 3.2 mmol/L (3.6-5.2) [facility] CHLORIDE 112 mmol/L (100-108) [facility] CO2 32 mmol/L (22-31) [facility] ANION GAP 6 mmol/L (7-16) [facility] UREA NITROGEN 4 mg/dL (7-24) [facility] CREATININE 0.74 mg/dL (0.60-1.00) [facility] BUN/CREAT RATIO 5.4 RATIO (10.0-20.0) [facility] GLUCOSE 111 mg/dL (70-99) [facility] CALCIUM 8.1 mg/dL (8.4-10.2) [facility] TOTAL PROTEIN 5.4 g/dL (6.4-8.2) [facility] ALBUMIN 2.5 g/dL (3.2-4.5) [facility] GLOBULIN 2.9 g/dL (2.7-4.3) [facility] ALB/GLOB RATIO 0.9 RATIO [facility] ALKALINE PHOSPHATASE 121 U/L (45-117) [facility] BILIRUBIN,TOTAL 0.8 mg/dL (0.0-1.0) [facility] PLEASE NOTE:Total bilirubin results may be falselyelevated in patients taking Eltrombopag. AST (SGOT) 66 U/L (11-39) [facility] ALT (SGPT) 70 U/L (12-78) [facility] GFR >60 ml/min/1.73m2 (>59) [facility] GFR ( AMER) >60 ml/min/1.73m2 (>59) [facility] GFR INTERPRETATION [facility] --NORMAL KIDNEY FUNCTION OR MILD DISEASE - GFR >OR= 60CHRONIC KIDNEY DISEASE - GFR 15 - 59RENAL FAILURE - GFR <15 Est. GFR calculation based on the MDRDstudy equation, which assumes a steadystate for creatinine. Est. GFR should notbe used for medication dosing. ID Date Data Source [id number] 05/02/2020 02:23:43 AM EDT [facility] Name Value Range Interpretation Code Description Data Apurva rce(s) Supporting Document(s) WBC 7.0 10*3/uL (4.1-11.0) [facility] [place] RBC 3.00 10*6/uL (4.00-5.40) [facility] HGB 9.3 g/dL (12.0-16.0) [facility] HCT 28.7 % (36.0-47.0) [facility] MCV 95.4 fL (80.0-95.0) [facility] MCH 30.9 pg (27.0-32.0) [facility] MCHC 32.4 g/dL (32.0-36.0) [facility] RDW 17.3 % (10.5-14.5) [facility] PLT 258 10*3/uL (150-450) [facility] MPV 8.1 fL (7.1-10.7) [facility] ID Date Data Source [id number] 05/01/2020 08:59:55 PM EDT [facility] Name Value Range Interpretation Code Description Data Apurva rce(s) Supporting Document(s) APTT 30.5 s (22.0-34.3) [facility] ID Date Data Source [id number] 05/01/2020 09:09:59 PM EDT [facility] Name Value Range Interpretation Code Description Data Apurva rce(s) Supporting Document(s) SODIUM 149 mmol/L (136-145) [facility] POTASSIUM 3.7 mmol/L (3.6-5.2) [facility] CHLORIDE 113 mmol/L (100-108) [facility] CO2 30 mmol/L (22-31) [facility] ANION GAP 6 mmol/L (7-16) [facility] UREA NITROGEN 3 mg/dL (7-24) [facility] CREATININE 0.77 mg/dL (0.60-1.00) [facility] BUN/CREAT RATIO 3.9 RATIO (10.0-20.0) [facility] GLUCOSE 117 mg/dL (70-99) [facility] CALCIUM 7.8 mg/dL (8.4-10.2) [facility] GFR >60 ml/min/1.73m2 (>59) [facility] GFR ( AMER) >60 ml/min/1.73m2 (>59) [facility] GFR INTERPRETATION [facility] --NORMAL KIDNEY FUNCTION OR MILD DISEASE - GFR >OR= 60CHRONIC KIDNEY DISEASE - GFR 15 - 59RENAL FAILURE - GFR <15 Est. GFR calculation based on the MDRDstudy equation, which assumes a steadystate for creatinine. Est. GFR should notbe used for medication dosing. ID Date Data Source [id number] 05/01/2020 04:30:54 PM EDT [facility] Name Value Range Interpretation Code Description Data Apurva rce(s) Supporting Document(s) PHOSPHORUS 3.5 mg/dL (2.5-4.5) [facility] ID Date Data Source [id number] 05/01/2020 02:50:49 PM EDT [facility] Name Value Range Interpretation Code Description Data Apurva rce(s) Supporting Document(s) MAGNESIUM 2.0 mg/dL (1.7-2.4) [facility] ID Date Data Source [id number] 05/01/2020 02:50:49 PM EDT [facility] Name Value Range Interpretation Code Description Data Apurva rce(s) Supporting Document(s) SODIUM 149 mmol/L (136-145) H [facility] POTASSIUM 3.7 mmol/L (3.6-5.2) [facility] CHLORIDE 114 mmol/L (100-108) [facility] CO2 28 mmol/L (22-31) [facility] ANION GAP 7 mmol/L (7-16) [facility] UREA NITROGEN 3 mg/dL (7-24) L [facility] CREATININE 0.79 mg/dL (0.60-1.00) [facility] BUN/CREAT RATIO 3.8 RATIO (10.0-20.0) L [facility] GLUCOSE 119 mg/dL (70-99) H [facility] CALCIUM 7.7 mg/dL (8.4-10.2) L [facility] GFR >60 ml/min/1.73m2 (>59) [facility] GFR ( AMER) >60 ml/min/1.73m2 (>59) [facility] GFR INTERPRETATION [facility] --NORMAL KIDNEY FUNCTION OR MILD DISEASE - GFR >OR= 60CHRONIC KIDNEY DISEASE - GFR 15 - 59RENAL FAILURE - GFR <15 Est. GFR calculation based on the MDRDstudy equation, which assumes a steadystate for creatinine. Est. GFR should notbe used for medication dosing. ID Date Data Source [id number] 05/01/2020 02:30:27 PM EDT [facility] Name Value Range Interpretation Code Description Data [facility](s) Supporting Document(s) APTT 22.1 s (22.0-34.3) [facility] ID Date Data Source [id number] 05/01/2020 02:30:27 PM EDT [facility] Name Value Range Interpretation Code Description Data Apurva rce(s) Supporting Document(s) PT 11.5 s (9.2-11.9) [facility] INR 1.10 [facility] SUGGESTED THERAPEUTIC RANGES USING INR F ORSTABILIZED ANTICOAGULATED PATIENTS:STANDARD DOSE THERAPY INR 2.0-3.0 DVT, PE, PREVENT DVT OR EMBOLISMHIGH DOSE THERAPY INR 2.5-3.5 PREVENT EMBOLISM FROM MECHANICAL HEART VALVE ID Date Data Source [id number] 05/01/2020 01:15:00 PM EDT [facility] DATE OF EXAM: 05/01/2020US [...] right subclavian vein. Professional interpretation performed at [facility] .End of diagnostic report for accession: [id number] Interpreted: Park Fragaranscribed: 05/01/2020 01:12 PMSigned: 05/01/2020 01:15 PM Park Fraga DO [facility] # [id number] BILL # [id number] Name Value Range Interpretation Code Description Data Apurva rce(s) Supporting Document(s) ID Date Data Source [id number] 05/01/2020 11:20:00 AM EDT [facility] DATE OF EXAM: 05/01/2020EXAM:Abdomen NG Tube Placement Port CLINICAL INDICATION: NG TUBE PLACEMENT TECHNIQUE: A single coned-down view of the chest and upper abdomen was obtained. COMPARISON: None. IMPRESSION: An enteric tube is visualized with its tip and side-port reaching the expected location of the stomach. [facility] [facility] .End of diagnostic report for accession: [id number] Interpreted: Park Fragaranscribed: 05/01/2020 11:19 AMSigned: 05/01/2020 11:20 AM Park Fraga DO [facility] # [id number] BILL # [id number] Name Value Range Interpretation Code Description Data Apurva rce(s) Supporting Document(s) ID Date Data Source [id number] 05/01/2020 08:19:42 AM EDT [facility] Name Value Range Interpretation Code Description Data Apurva rce(s) Supporting Document(s) PHOSPHORUS 3.5 mg/dL (2.5-4.5) [facility] ID Date Data Source [id number] 05/01/2020 08:19:42 AM EDT [facility] Name Value Range Interpretation Code Description Data Apurva rce(s) Supporting Document(s) MAGNESIUM 2.0 mg/dL (1.7-2.4) [facility] ID Date Data Source [id number] 05/01/2020 08:19:42 AM EDT [facility] Name Value Range Interpretation Code Description Data Apurva rce(s) Supporting Document(s) SODIUM 149 mmol/L (136-145) H [facility] POTASSIUM 3.8 mmol/L (3.6-5.2) [facility] CHLORIDE 113 mmol/L (100-108) H [facility] CO2 27 mmol/L (22-31) [facility] ANION GAP 9 mmol/L (7-16) [facility] UREA NITROGEN 3 mg/dL (7-24) L [facility] CREATININE 0.80 mg/dL (0.60-1.00) [facility] BUN/CREAT RATIO 3.8 RATIO (10.0-20.0) L [facility] GLUCOSE 116 mg/dL (70-99) H [facility] CALCIUM 7.7 mg/dL (8.4-10.2) L [facility] GFR >60 ml/min/1.73m2 (>59) [facility] GFR ( AMER) >60 ml/min/1.73m2 (>59) [facility] GFR INTERPRETATION [facility] --NORMAL KIDNEY FUNCTION OR MILD DISEASE - GFR >OR= 60CHRONIC KIDNEY DISEASE - GFR 15 - 59RENAL FAILURE - GFR <15 Est. GFR calculation based on the MDRDstudy equation, which assumes a steadystate for creatinine. Est. GFR should notbe used for medication dosing. ID Date Data Source [id number] 05/01/2020 01:00:28 AM EDT [facility] Name Value Range Interpretation Code Description Data Apurva rce(s) Supporting Document(s) CALCIUM IONIZED 4.76 mg/dL (4.64-5.28) [facility] IONIZED CALCIUM NORMALIZED TO PH 7.40 AN D 37 DEGREES C. ID Date Data Source [id number] 05/01/2020 12:56:28 AM EDT [facility] Name Value Range Interpretation Code Description Data Apurva rce(s) Supporting Document(s) PHOSPHORUS 3.2 mg/dL (2.5-4.5) [facility] ID Date Data Source [id number] 05/01/2020 12:56:28 AM EDT [facility] Name Value Range Interpretation Code Description Data Apurva rce(s) Supporting Document(s) MAGNESIUM 2.1 mg/dL (1.7-2.4) [facility] ID Date Data Source [id number] 05/01/2020 12:56:28 AM EDT [facility] Name Value Range Interpretation Code Description Data Apurva rce(s) Supporting Document(s) SODIUM 148 mmol/L (136-145) H [facility] POTASSIUM 3.5 mmol/L (3.6-5.2) L [facility] CHLORIDE 112 mmol/L (100-108) H [facility] CO2 28 mmol/L (22-31) [facility] ANION GAP 8 mmol/L (7-16) [facility] UREA NITROGEN 3 mg/dL (7-24) L [facility] CREATININE 0.75 mg/dL (0.60-1.00) [facility] BUN/CREAT RATIO 4.0 RATIO (10.0-20.0) L [facility] GLUCOSE 119 mg/dL (70-99) H [facility] CALCIUM 7.6 mg/dL (8.4-10.2) L [facility] TOTAL PROTEIN 5.3 g/dL (6.4-8.2) L [facility] ALBUMIN 2.5 g/dL (3.2-4.5) L [facility] GLOBULIN 2.8 g/dL (2.7-4.3) [facility] ALB/GLOB RATIO 0.9 RATIO [facility] ALKALINE PHOSPHATASE 119 U/L (45-117) H [facility] BILIRUBIN,TOTAL 1.0 mg/dL (0.0-1.0) [facility] PLEASE NOTE:Total bilirubin results may be falselyelevated in patients taking Eltrombopag. AST (SGOT) 77 U/L (11-39) H [facility] ALT (SGPT) 84 U/L (12-78) H [facility] GFR >60 ml/min/1.73m2 (>59) [facility] GFR ( AMER) >60 ml/min/1.73m2 (>59) [facility] GFR INTERPRETATION [facility] --NORMAL KIDNEY FUNCTION OR MILD DISEASE - GFR >OR= 60CHRONIC KIDNEY DISEASE - GFR 15 - 59RENAL FAILURE - GFR <15 Est. GFR calculation based on the MDRDstudy equation, which assumes a steadystate for creatinine. Est. GFR should notbe used for medication dosing. ID Date Data Source [id number] 05/01/2020 12:31:49 AM EDT [facility] Name Value Range Interpretation Code Description Data Apurva rce(s) Supporting Document(s) WBC 7.3 10*3/uL (4.1-11.0) [facility] RBC 2.80 10*6/uL (4.00-5.40) L [facility] HGB 8.9 g/dL (12.0-16.0) L [facility] HCT 26.8 % (36.0-47.0) L [facility] MCV 95.4 fL (80.0-95.0) H [facility] MCH 31.9 pg (27.0-32.0) [facility] MCHC 33.4 g/dL (32.0-36.0) [facility] RDW 16.9 % (10.5-14.5) H [facility] PLT 195 10*3/uL (150-450) [facility] MPV 9.3 fL (7.1-10.7) [facility] ID Date Data Source [id number] 04/30/2020 06:32:47 PM EDT [facility] Name Value Range Interpretation Code Description Data Apurva rce(s) Supporting Document(s) PHOSPHORUS 3.4 mg/dL (2.5-4.5) [facility] ID Date Data Source [id number] 04/30/2020 06:32:47 PM EDT [facility] Name Value Range Interpretation Code Description Data Apurva rce(s) Supporting Document(s) MAGNESIUM 2.4 mg/dL (1.7-2.4) [facility] ID Date Data Source [id number] 04/30/2020 06:32:47 PM EDT [facility] Name Value Range Interpretation Code Description Data Apurva rce(s) Supporting Document(s) SODIUM 145 mmol/L (136-145) [facility] POTASSIUM 3.8 mmol/L (3.6-5.2) [facility] CHLORIDE 112 mmol/L (100-108) H [facility] CO2 26 mmol/L (22-31) [facility] ANION GAP 7 mmol/L (7-16) [facility] UREA NITROGEN 3 mg/dL (7-24) L [facility] CREATININE 0.72 mg/dL (0.60-1.00) [facility] BUN/CREAT RATIO 4.2 RATIO (10.0-20.0) L [facility] GLUCOSE 126 mg/dL (70-99) H [facility] CALCIUM 7.5 mg/dL (8.4-10.2) L [facility] GFR >60 ml/min/1.73m2 (>59) [facility] GFR ( AMER) >60 ml/min/1.73m2 (>59) [facility] GFR INTERPRETATION [facility] --NORMAL KIDNEY FUNCTION OR MILD DISEASE - GFR >OR= 60CHRONIC KIDNEY DISEASE - GFR 15 - 59RENAL FAILURE - GFR <15 Est. GFR calculation based on the MDRDstudy equation, which assumes a steadystate for creatinine. Est. GFR should notbe used for medication dosing. ID Date Data Source [id number] 04/30/2020 09:38:42 AM EDT [facility] Name Value Range Interpretation Code Description Data Apurva e(s) Supporting Document(s) VANCOMYCIN TROUGH 16.5 ug/mL (10.0-20.0) [facility] ID Date Data Source [id number] 04/30/2020 09:38:42 AM EDT [facility] Name Value Range Interpretation Code Description Data Apurva rce(s) Supporting Document(s) MAGNESIUM 1.7 mg/dL (1.7-2.4) [facility] ID Date Data Source [id number] 04/30/2020 09:38:42 AM EDT [facility] Name Value Range Interpretation Code Description Data Apurva rce(s) Supporting Document(s) PHOSPHORUS 2.9 mg/dL (2.5-4.5) [facility] ID Date Data Source [id number] 04/30/2020 09:38:42 AM EDT [facility] Name Value Range Interpretation Code Description Data Apurva rce(s) Supporting Document(s) SODIUM 146 mmol/L (136-145) H [facility] POTASSIUM 3.3 mmol/L (3.6-5.2) L [facility] CHLORIDE 112 mmol/L (100-108) H [facility] CO2 24 mmol/L (22-31) [facility] ANION GAP 10 mmol/L (7-16) [facility] UREA NITROGEN 3 mg/dL (7-24) L [facility] CREATININE 0.72 mg/dL (0.60-1.00) [facility] BUN/CREAT RATIO 4.2 RATIO (10.0-20.0) L [facility] GLUCOSE 130 mg/dL (70-99) H [facility] CALCIUM 7.2 mg/dL (8.4-10.2) L [facility] GFR >60 ml/min/1.73m2 (>59) [facility] GFR ([facility] AMER) >60 ml/min/1.73m2 (>59) [facility] GFR INTERPRETATION [facility] --NORMAL KIDNEY FUNCTION OR MILD DISEASE - GFR >OR= 60CHRONIC KIDNEY DISEASE - GFR 15 - 59RENAL FAILURE - GFR <15 Est. GFR calculation based on the MDRDstudy equation, which assumes a steadystate for creatinine. Est. GFR should notbe used for medication dosing. ID Date Data Source [id number] 04/30/2020 03:11:02 AM EDT [facility] Name Value Range Interpretation Code Description Data Apurva rce(s) Supporting Document(s) COLOR [facility] APPEARANCE [facility] SPEC GRAV URINE 1.013 (1.003-1.030) [facility] PH URINE 5.0 (5.0-7.5) [facility] LEUK ESTERASE 1+ (NEG) A [facility] NITRITE URINE (NEG) [facility] PROTEIN URINE (NEG) [facility] GLUCOSE URINE (NEG) [facility] KETONE URINE (NEG) A [facility] UROBILINOGEN 0.2 mg/dL (0-1.0) [facility] BILIRUBIN URINE (NEG) [facility] BLOOD/HGB URINE 3+ (NEG) A [facility] URINE WBC (0-5) [facility] URINE RBC (0-2) [facility] BACTERIA 1+ [HPF] [facility] MUCUS 1+ [HPF] [facility] YEAST 1+ [HPF] [facility] ID Date Data Source [id number] 04/30/2020 08:49:00 AM EDT [facility] DATE OF EXAM: 04/30/2020Chest 1V [...] bilaterally. X7End of diagnostic report for accession: [id number] Interpreted: Shahzad Perez MDTranscribed: 04/30/2020 08:43 AMSigned: 04/30/2020 08:49 AM Shahzad Perez MD [facility] # [id number] [facility] # [id number] Name Value Range Interpretation Code Description Data Apurva rce(s) Supporting Document(s) ID Date Data Source [id number] 04/30/2020 02:38:46 AM EDT [facility] Name Value Range Interpretation Code Description Data Apurva rce(s) Supporting Document(s) SOURCE [facility] FIO2 60 % [facility] PH 7.39 (7.35-7.45) [facility] PCO2 32 mm[Hg] (32-48) [facility] PO2 95 mm[Hg] (83-108) [facility] O2 SATURATION 96.2 % (95.0-99.0) [facility] BASE DEFICIT 5.3 mmol/L (0.0-2.0) H [facility] HCO3 18.9 mmol/L (21.0-29.0) L [facility] TOTAL CO2 19.8 mmol/L (23.0-32.0) L [facility] BODY TEMPERATURE 98.6 [degF] [facility] ID Date Data Source [id number] 04/30/2020 02:47:45 AM EDT [facility] Name Value Range Interpretation Code Description Data Apurva rce(s) Supporting Document(s) WBC 8.3 10*3/uL (4.1-11.0) [facility] RBC 3.08 10*6/uL (4.00-5.40) L [facility] HGB 9.5 g/dL (12.0-16.0) L [facility] HCT 29.6 % (36.0-47.0) L [facility] MCV 96.0 fL (80.0-95.0) H [facility] MCH 30.9 pg (27.0-32.0) [facility] MCHC 32.1 g/dL (32.0-36.0) [facility] RDW 16.3 % (10.5-14.5) H [facility] PLT 169 10*3/uL (150-450) [facility] MPV 9.3 fL (7.1-10.7) [facility] ID Date Data Source [id number] 04/30/2020 02:39:46 AM EDT [facility] Name Value Range Interpretation Code Description Data Apurva rce(s) Supporting Document(s) SODIUM 146 mmol/L (136-145) H [facility] POTASSIUM 3.8 mmol/L (3.6-5.2) [facility] CHLORIDE 113 mmol/L (100-108) H [facility] CO2 25 mmol/L (22-31) [facility] ANION GAP 8 mmol/L (7-16) [facility] UREA NITROGEN 3 mg/dL (7-24) L [facility] CREATININE 0.68 mg/dL (0.60-1.00) [facility] BUN/CREAT RATIO 4.4 RATIO (10.0-20.0) L [facility] GLUCOSE 116 mg/dL (70-99) H [facility] CALCIUM 7.2 mg/dL (8.4-10.2) L [facility] GFR >60 ml/min/1.73m2 (>59) [facility] GFR ( AMER) >60 ml/min/1.73m2 (>59) [facility] GFR INTERPRETATION [facility] --NORMAL KIDNEY FUNCTION OR MILD DISEASE - GFR >OR= 60CHRONIC KIDNEY DISEASE - GFR 15 - 59RENAL FAILURE - GFR <15 Est. GFR calculation based on the MDRDstudy equation, which assumes a steadystate for creatinine. Est. GFR should notbe used for medication dosing. ID Date Data Source [id number] 04/29/2020 09:04:58 PM EDT [facility] Name Value Range Interpretation Code Description Data Apurva rce(s) Supporting Document(s) SODIUM 144 mmol/L (136-145) [facility] POTASSIUM 3.6 mmol/L (3.6-5.2) [facility] CHLORIDE 111 mmol/L (100-108) H [facility] CO2 24 mmol/L (22-31) [facility] ANION GAP 9 mmol/L (7-16) [facility] UREA NITROGEN 3 mg/dL (7-24) L [facility] CREATININE 0.56 mg/dL (0.60-1.00) L [facility] BUN/CREAT RATIO 5.4 RATIO (10.0-20.0) L [facility] GLUCOSE 126 mg/dL (70-99) H [facility] CALCIUM 7.3 mg/dL (8.4-10.2) L [facility] GFR >60 ml/min/1.73m2 (>59) [facility] GFR ( AMER) >60 ml/min/1.73m2 (>59) [facility] GFR INTERPRETATION [facility] --NORMAL KIDNEY FUNCTION OR MILD DISEASE - GFR >OR= 60CHRONIC KIDNEY DISEASE - GFR 15 - 59RENAL FAILURE - GFR <15 Est. GFR calculation based on the MDRDstudy equation, which assumes a steadystate for creatinine. Est. GFR should notbe used for medication dosing. ID Date Data Source [id number] 04/29/2020 09:04:58 PM EDT [facility] Name Value Range Interpretation Code Description Data Apurva rce(s) Supporting Document(s) MAGNESIUM 1.8 mg/dL (1.7-2.4) [facility] ID Date Data Source [id number] 04/29/2020 09:04:58 PM EDT [facility] Name Value Range Interpretation Code Description Data Apurva rce(s) Supporting Document(s) PHOSPHORUS 2.8 mg/dL (2.5-4.5) [facility] ID Date Data Source [id number] 04/30/2020 10:05:15 AM EDT [facility] Name Value Range Interpretation Code Description Data Apurva rce(s) Supporting Document(s) SPECIMEN DESCRIPTION [facility] STAPH SCREEN RESULTS (ONEGSA) [facility] COMMENT [facility] GENE TO DETECT STAPH AUREUS. (2) RT-P CR WAS PERFORMED FOR THE mecA AND [employer] GENES TO DETECT METHICILLIN RESISTANCE IN STAPH AUREUS. ID Date Data Source [id number] 04/29/2020 02:23:18 PM EDT [facility] Name Value Range Interpretation Code Description Data Apurva rce(s) Supporting Document(s) PHOSPHORUS 3.3 mg/dL (2.5-4.5) [facility] ID Date Data Source [id number] 04/29/2020 02:23:18 PM EDT [facility] Name Value Range Interpretation Code Description Data Apurva rce(s) Supporting Document(s) MAGNESIUM 1.8 mg/dL (1.7-2.4) [facility] ID Date Data Source [id number] 04/29/2020 02:23:18 PM EDT [facility] Name Value Range Interpretation Code Description Data Apurva rce(s) Supporting Document(s) SODIUM 144 mmol/L (136-145) [facility] POTASSIUM 3.8 mmol/L (3.6-5.2) [facility] CHLORIDE 111 mmol/L (100-108) H [facility] CO2 25 mmol/L (22-31) [facility] ANION GAP 8 mmol/L (7-16) [facility] UREA NITROGEN 3 mg/dL (7-24) L [facility] CREATININE 0.48 mg/dL (0.60-1.00) L [facility] BUN/CREAT RATIO 6.3 RATIO (10.0-20.0) L [facility] GLUCOSE 134 mg/dL (70-99) H [facility] CALCIUM 6.9 mg/dL (8.4-10.2) L [facility] GFR >60 ml/min/1.73m2 (>59) [facility] GFR ( AMER) >60 ml/min/1.73m2 (>59) [facility] GFR INTERPRETATION [facility] --NORMAL KIDNEY FUNCTION OR MILD DISEASE - GFR >OR= 60CHRONIC KIDNEY DISEASE - GFR 15 - 59RENAL FAILURE - GFR <15 Est. GFR calculation based on the MDRDstudy equation, which assumes a steadystate for creatinine. Est. GFR should notbe used for medication dosing. ID Date Data Source [id number] 04/29/2020 09:40:14 AM EDT [facility] Name Value Range Interpretation Code Description Data Apurva rce(s) Supporting Document(s) WBC 5.5 10*3/uL (4.1-11.0) [facility] [place] RBC 2.96 10*6/uL (4.00-5.40) L [facility] HGB 9.2 g/dL (12.0-16.0) L [facility] HCT 28.2 % (36.0-47.0) L [facility] MCV 95.1 fL (80.0-95.0) H [facility] MCH 31.0 pg (27.0-32.0) [facility] MCHC 32.6 g/dL (32.0-36.0) [facility] RDW 16.1 % (10.5-14.5) H [facility] PLT 106 10*3/uL (150-450) L [facility] MPV 9.5 fL (7.1-10.7) [facility] ID Date Data Source [id number] 04/29/2020 09:04:20 AM EDT [facility] Name Value Range Interpretation Code Description Data Apurva rce(s) Supporting Document(s) VANCOMYCIN TROUGH 16.3 ug/mL (10.0-20.0) [facility] ID Date Data Source [id number] 04/29/2020 09:04:20 AM EDT [facility] Name Value Range Interpretation Code Description Data Apurva rce(s) Supporting Document(s) PHOSPHORUS 1.9 mg/dL (2.5-4.5) L [facility] ID Date Data Source [id number] 04/29/2020 09:04:20 AM EDT [facility] Name Value Range Interpretation Code Description Data Apurva rce(s) Supporting Document(s) MAGNESIUM 2.0 mg/dL (1.7-2.4) [facility] ID Date Data Source [id number] 04/29/2020 09:04:20 AM EDT [facility] Name Value Range Interpretation Code Description Data Apurva rce(s) Supporting Document(s) SODIUM 143 mmol/L (136-145) [facility] POTASSIUM 4.1 mmol/L (3.6-5.2) [facility] CHLORIDE 110 mmol/L (100-108) H [facility] CO2 25 mmol/L (22-31) [facility] ANION GAP 8 mmol/L (7-16) [facility] UREA NITROGEN 3 mg/dL (7-24) L [facility] CREATININE 0.52 mg/dL (0.60-1.00) L [facility] BUN/CREAT RATIO 5.8 RATIO (10.0-20.0) L [facility] GLUCOSE 122 mg/dL (70-99) H [facility] CALCIUM 7.5 mg/dL (8.4-10.2) L [facility] GFR >60 ml/min/1.73m2 (>59) [facility] GFR ( AMER) >60 ml/min/1.73m2 (>59) [facility] GFR INTERPRETATION [facility] --NORMAL KIDNEY FUNCTION OR MILD DISEASE - GFR >OR= 60CHRONIC KIDNEY DISEASE - GFR 15 - 59RENAL FAILURE - GFR <15 Est. GFR calculation based on the MDRDstudy equation, which assumes a steadystate for creatinine. Est. GFR should notbe used for medication dosing. ID Date Data Source [id number] 04/29/2020 03:20:10 AM EDT [facility] Name Value Range Interpretation Code Description Data Apurva rce(s) Supporting Document(s) MAGNESIUM 2.0 mg/dL (1.7-2.4) [facility] ID Date Data Source [id number] 04/29/2020 03:20:10 AM EDT [facility] Name Value Range Interpretation Code Description Data Apurva rce(s) Supporting Document(s) PHOSPHORUS 1.9 mg/dL (2.5-4.5) L [facility] ID Date Data Source [id number] 04/29/2020 03:20:10 AM EDT [facility] Name Value Range Interpretation Code Description Data Apurva rce(s) Supporting Document(s) SODIUM 143 mmol/L (136-145) [facility] POTASSIUM 3.4 mmol/L (3.6-5.2) L [facility] CHLORIDE 110 mmol/L (100-108) H [facility] CO2 24 mmol/L (22-31) [facility] ANION GAP 9 mmol/L (7-16) [facility] UREA NITROGEN 3 mg/dL (7-24) L [facility] CREATININE 0.51 mg/dL (0.60-1.00) L [facility] BUN/CREAT RATIO 5.9 RATIO (10.0-20.0) L [facility] GLUCOSE 119 mg/dL (70-99) H [facility] CALCIUM 7.1 mg/dL (8.4-10.2) L [facility] TOTAL PROTEIN 5.2 g/dL (6.4-8.2) L [facility] ALBUMIN 2.5 g/dL (3.2-4.5) L [facility] GLOBULIN 2.7 g/dL (2.7-4.3) [facility] ALB/GLOB RATIO 0.9 RATIO [facility] ALKALINE PHOSPHATASE 104 U/L (45-117) [facility] BILIRUBIN,TOTAL 1.0 mg/dL (0.0-1.0) [facility] PLEASE NOTE:Total bilirubin results may be falselyelevated in patients taking Eltrombopag. AST (SGOT) 127 U/L (11-39) H [facility] ALT (SGPT) 110 U/L (12-78) H [facility] GFR >60 ml/min/1.73m2 (>59) [facility] GFR ( AMER) >60 ml/min/1.73m2 (>59) [facility] GFR INTERPRETATION [facility] --NORMAL KIDNEY FUNCTION OR MILD DISEASE - GFR >OR= 60CHRONIC KIDNEY DISEASE - GFR 15 - 59RENAL FAILURE - GFR <15 Est. GFR calculation based on the MDRDstudy equation, which assumes a steadystate for creatinine. Est. GFR should notbe used for medication dosing. ID Date Data Source [id number] 04/29/2020 03:17:55 AM EDT [facility] Name Value Range Interpretation Code Description Data Apurva rce(s) Supporting Document(s) CALCIUM IONIZED 4.56 mg/dL (4.64-5.28) L [facility] IONIZED CALCIUM NORMALIZED TO PH 7.40 AN D 37 DEGREES C. ID Date Data Source [id number] 04/29/2020 02:41:12 AM EDT [facility] Name Value Range Interpretation Code Description Data Apurva rce(s) Supporting Document(s) WBC 5.6 10*3/uL (4.1-11.0) [facility] [place] RBC 2.87 10*6/uL (4.00-5.40) L [facility] HGB 8.9 g/dL (12.0-16.0) L [facility] HCT 27.4 % (36.0-47.0) L [facility] MCV 95.5 fL (80.0-95.0) H [facility] MCH 31.1 pg (27.0-32.0) [facility] MCHC 32.6 g/dL (32.0-36.0) [facility] RDW 15.7 % (10.5-14.5) H [facility] PLT 100 10*3/uL (150-450) L [facility] MPV 9.9 fL (7.1-10.7) [facility] ID Date Data Source [id number] 04/28/2020 08:31:17 PM EDT [facility] Name Value Range Interpretation Code Description Data Apurva rce(s) Supporting Document(s) PHOSPHORUS 1.9 mg/dL (2.5-4.5) L [facility] ID Date Data Source [id number] 04/28/2020 08:31:17 PM EDT [facility] Name Value Range Interpretation Code Description Data Apurva rce(s) Supporting Document(s) MAGNESIUM 2.1 mg/dL (1.7-2.4) [facility] ID Date Data Source [id number] 04/28/2020 08:31:17 PM EDT [facility] Name Value Range Interpretation Code Description Data Apurva rce(s) Supporting Document(s) SODIUM 143 mmol/L (136-145) [facility] POTASSIUM 3.8 mmol/L (3.6-5.2) [facility] CHLORIDE 111 mmol/L (100-108) H [facility] CO2 26 mmol/L (22-31) [facility] ANION GAP 6 mmol/L (7-16) L [facility] UREA NITROGEN 3 mg/dL (7-24) L [facility] CREATININE 0.54 mg/dL (0.60-1.00) L [facility] BUN/CREAT RATIO 5.6 RATIO (10.0-20.0) L [facility] GLUCOSE 130 mg/dL (70-99) H [facility] CALCIUM 7.1 mg/dL (8.4-10.2) L [facility] GFR >60 ml/min/1.73m2 (>59) [facility] GFR ( AMER) >60 ml/min/1.73m2 (>59) [facility] GFR INTERPRETATION [facility] --NORMAL KIDNEY FUNCTION OR MILD DISEASE - GFR >OR= 60CHRONIC KIDNEY DISEASE - GFR 15 - 59RENAL FAILURE - GFR <15 Est. GFR calculation based on the MDRDstudy equation, which assumes a steadystate for creatinine. Est. GFR should notbe used for medication dosing. ID Date Data Source [id number] 04/28/2020 03:44:21 PM EDT [facility] Name Value Range Interpretation Code Description Data Apurva rce(s) Supporting Document(s) WBC 6.1 10*3/uL (4.1-11.0) [facility] RBC 2.85 10*6/uL (4.00-5.40) L [facility] HGB 9.1 g/dL (12.0-16.0) L [facility] HCT 27.3 % (36.0-47.0) L [facility] MCV 95.7 fL (80.0-95.0) H [facility] MCH 31.8 pg (27.0-32.0) [facility] MCHC 33.2 g/dL (32.0-36.0) [facility] RDW 15.8 % (10.5-14.5) H [facility] PLT 91 10*3/uL (150-450) L [facility] MPV 9.7 fL (7.1-10.7) [facility] ID Date Data Source [id number] 04/28/2020 02:32:50 PM EDT [facility] Name Value Range Interpretation Code Description Data Apurva rce(s) Supporting Document(s) PHOSPHORUS 2.1 mg/dL (2.5-4.5) L [facility] ID Date Data Source [id number] 04/28/2020 02:32:50 PM EDT [facility] Name Value Range Interpretation Code Description Data Apurva rce(s) Supporting Document(s) SODIUM 142 mmol/L (136-145) [facility] POTASSIUM 4.0 mmol/L (3.6-5.2) [facility] CHLORIDE 110 mmol/L (100-108) H [facility] CO2 25 mmol/L (22-31) [facility] ANION GAP 7 mmol/L (7-16) [facility] UREA NITROGEN 4 mg/dL (7-24) L [facility] CREATININE 0.52 mg/dL (0.60-1.00) L [facility] BUN/CREAT RATIO 7.7 RATIO (10.0-20.0) L [facility] GLUCOSE 129 mg/dL (70-99) H [facility] CALCIUM 7.2 mg/dL (8.4-10.2) L [facility] GFR >60 ml/min/1.73m2 (>59) [facility] GFR ( AMER) >60 ml/min/1.73m2 (>59) [facility] GFR INTERPRETATION [facility] --NORMAL KIDNEY FUNCTION OR MILD DISEASE - GFR >OR= 60CHRONIC KIDNEY DISEASE - GFR 15 - 59RENAL FAILURE - GFR <15 Est. GFR calculation based on the MDRDstudy equation, which assumes a steadystate for creatinine. Est. GFR should notbe used for medication dosing. ID Date Data Source [id number] 04/28/2020 02:32:50 PM EDT [facility] Name Value Range Interpretation Code Description Data Apurva rce(s) Supporting Document(s) MAGNESIUM 2.1 mg/dL (1.7-2.4) [facility] ID Date Data Source [id number] 04/28/2020 02:11:20 PM EDT [facility] Name Value Range Interpretation Code Description Data Apurva rce(s) Supporting Document(s) SOURCE [facility] FIO2 [facility] VENOUS PH 7.31 (7.33-7.43) L [facility] PCO2 47 mm[Hg] (38-50) [facility] PO2 37 mm[Hg] (30-50) [facility] LAMAR BASE DEFICIT 3.5 mmol/L (0.0-2.0) H [facility] HCO3 23.0 mmol/L (23-27) [facility] TOTAL CO2 24.4 mmol/L (24-28) [facility] BODY TEMPERATURE 98.6 [degF] [facility] ID Date Data Source [id number] 04/28/2020 02:41:12 AM EDT [facility] Name Value Range Interpretation Code Description Data Apurva rce(s) Supporting Document(s) MAGNESIUM 2.7 mg/dL (1.7-2.4) H [facility] ID Date Data Source [id number] 04/28/2020 02:41:12 AM EDT [facility] Name Value Range Interpretation Code Description Data Apurva rce(s) Supporting Document(s) PHOSPHORUS 1.0 mg/dL (2.5-4.5) L [facility] ID Date Data Source [id number] 04/28/2020 02:41:12 AM EDT [facility] Name Value Range Interpretation Code Description Data Apurva rce(s) Supporting Document(s) SODIUM 142 mmol/L (136-145) [facility] POTASSIUM 3.6 mmol/L (3.6-5.2) [facility] CHLORIDE 110 mmol/L (100-108) H [facility] CO2 24 mmol/L (22-31) [facility] ANION GAP 8 mmol/L (7-16) [facility] UREA NITROGEN 4 mg/dL (7-24) L [facility] CREATININE 0.58 mg/dL (0.60-1.00) L [facility] BUN/CREAT RATIO 6.9 RATIO (10.0-20.0) L [facility] GLUCOSE 128 mg/dL (70-99) H [facility] CALCIUM 7.2 mg/dL (8.4-10.2) L [facility] TOTAL PROTEIN 5.4 g/dL (6.4-8.2) L [facility] ALBUMIN 2.8 g/dL (3.2-4.5) L [facility] GLOBULIN 2.6 g/dL (2.7-4.3) L [facility] ALB/GLOB RATIO 1.1 RATIO [facility] ALKALINE PHOSPHATASE 97 U/L (45-117) [facility] BILIRUBIN,TOTAL 1.2 mg/dL (0.0-1.0) H [facility] PLEASE NOTE:Total bilirubin results may be falselyelevated in patients taking Eltrombopag. AST (SGOT) 139 U/L (11-39) H [facility] ALT (SGPT) 105 U/L (12-78) H [facility] GFR >60 ml/min/1.73m2 (>59) [facility] GFR ( AMER) >60 ml/min/1.73m2 (>59) [facility] GFR INTERPRETATION [facility] --NORMAL KIDNEY FUNCTION OR MILD DISEASE - GFR >OR= 60CHRONIC KIDNEY DISEASE - GFR 15 - 59RENAL FAILURE - GFR <15 Est. GFR calculation based on the MDRDstudy equation, which assumes a steadystate for creatinine. Est. GFR should notbe used for medication dosing. ID Date Data Source [id number] 04/28/2020 02:39:52 AM EDT [facility] Name Value Range Interpretation Code Description Data Apurva rce(s) Supporting Document(s) CALCIUM IONIZED 4.72 mg/dL (4.64-5.28) [facility] IONIZED CALCIUM NORMALIZED TO PH 7.40 AN D 37 DEGREES C. ID Date Data Source [id number] 04/28/2020 02:12:48 AM EDT [facility] Name Value Range Interpretation Code Description Data Apurva rce(s) Supporting Document(s) WBC 5.5 10*3/uL (4.1-11.0) [facility] RBC 2.98 10*6/uL (4.00-5.40) L [facility] HGB 9.2 g/dL (12.0-16.0) L [facility] HCT 28.0 % (36.0-47.0) L [facility] MCV 93.8 fL (80.0-95.0) [facility] MCH 30.8 pg (27.0-32.0) [facility] MCHC 32.9 g/dL (32.0-36.0) [facility] RDW 15.5 % (10.5-14.5) H [facility] PLT 84 10*3/uL (150-450) L [facility] MPV 9.0 fL (7.1-10.7) [facility] ID Date Data Source [id number] 04/28/2020 08:50:00 AM EDT [facility] DATE OF EXAM: 04/28/2020CHEST [...] follow-up is recommended. Professional interpretation performed at [facility] .End of diagnostic report for accession: [id number] Interpreted: Park Fragascribed: 04/28/2020 08:49 AMSigned: 04/28/2020 08:50 AM Park Fraga DO [facility] # [id number] BILL # [id number] Name Value Range Interpretation Code Description Data Apurva rce(s) Supporting Document(s) ID Date Data Source [id number] 04/27/2020 05:15:50 PM EDT [facility] Name Value Range Interpretation Code Description Data Apurva rce(s) Supporting Document(s) SODIUM 143 mmol/L (136-145) [facility] POTASSIUM 4.6 mmol/L (3.6-5.2) [facility] CHLORIDE 111 mmol/L (100-108) H [facility] CO2 22 mmol/L (22-31) [facility] ANION GAP 10 mmol/L (7-16) [facility] UREA NITROGEN 3 mg/dL (7-24) L [facility] CREATININE 0.61 mg/dL (0.60-1.00) [facility] BUN/CREAT RATIO 4.9 RATIO (10.0-20.0) L [facility] GLUCOSE 118 mg/dL (70-99) H [facility] CALCIUM 6.7 mg/dL (8.4-10.2) L [facility] GFR >60 ml/min/1.73m2 (>59) [facility] GFR ( AMER) >60 ml/min/1.73m2 (>59) [facility] GFR INTERPRETATION [facility] --NORMAL KIDNEY FUNCTION OR MILD DISEASE - GFR >OR= 60CHRONIC KIDNEY DISEASE - GFR 15 - 59RENAL FAILURE - GFR <15 Est. GFR calculation based on the MDRDstudy equation, which assumes a steadystate for creatinine. Est. GFR should notbe used for medication dosing. ID Date Data Source [id number] 04/27/2020 03:40:13 PM EDT [facility] Name Value Range Interpretation Code Description Data Apurva rce(s) Supporting Document(s) CALCIUM IONIZED 4.56 mg/dL (4.64-5.28) L [facility] IONIZED CALCIUM NORMALIZED TO PH 7.40 AN D 37 DEGREES C. ID Date Data Source [id number] 04/27/2020 03:23:53 PM EDT [facility] Name Value Range Interpretation Code Description Data Apurva rce(s) Supporting Document(s) PHOSPHORUS 3.3 mg/dL (2.5-4.5) [facility] ID Date Data Source [id number] 04/27/2020 03:23:53 PM EDT [facility] Name Value Range Interpretation Code Description Data Apurva rce(s) Supporting Document(s) MAGNESIUM 1.4 mg/dL (1.7-2.4) L [facility] ID Date Data Source [id number] 04/27/2020 01:50:36 AM EDT [facility] Name Value Range Interpretation Code Description Data Apurva rce(s) Supporting Document(s) CALCIUM IONIZED 4.40 mg/dL (4.64-5.28) L [facility] IONIZED CALCIUM NORMALIZED TO PH 7.40 AN D 37 DEGREES C. ID Date Data Source [id number] 04/27/2020 01:48:57 AM EDT [facility] Name Value Range Interpretation Code Description Data Apurva rce(s) Supporting Document(s) PHOSPHORUS 1.0 mg/dL (2.5-4.5) L [facility] ID Date Data Source [id number] 04/27/2020 01:48:57 AM EDT [facility] Name Value Range Interpretation Code Description Data Apurva rce(s) Supporting Document(s) MAGNESIUM 1.6 mg/dL (1.7-2.4) L [facility] ID Date Data Source [id number] 04/27/2020 01:48:56 AM EDT [facility] Name Value Range Interpretation Code Description Data Apurva rce(s) Supporting Document(s) SODIUM 141 mmol/L (136-145) [facility] POTASSIUM 2.7 mmol/L (3.6-5.2) LL [facility] RESULT(S) CALLED TO AND READ BACK CEASAR Bill ICU 0147 04/27/20 [place] [address] CHLORIDE 107 mmol/L (100-108) [facility] CO2 20 mmol/L (22-31) L [facility] ANION GAP 14 mmol/L (7-16) [facility] UREA NITROGEN 5 mg/dL (7-24) L [facility] CREATININE 0.74 mg/dL (0.60-1.00) [facility] BUN/CREAT RATIO 6.8 RATIO (10.0-20.0) L [facility] GLUCOSE 128 mg/dL (70-99) H [facility] CALCIUM 7.0 mg/dL (8.4-10.2) L [facility] TOTAL PROTEIN 5.7 g/dL (6.4-8.2) L [facility] ALBUMIN 3.0 g/dL (3.2-4.5) L [facility] GLOBULIN 2.7 g/dL (2.7-4.3) [facility] ALB/GLOB RATIO 1.1 RATIO [facility] ALKALINE PHOSPHATASE 99 U/L (45-117) [facility] BILIRUBIN,TOTAL 1.7 mg/dL (0.0-1.0) H [facility] PLEASE NOTE:Total bilirubin results may be falselyelevated in patients taking Eltrombopag. AST (SGOT) 126 U/L (11-39) H [facility] ALT (SGPT) 101 U/L (12-78) H [facility] GFR >60 ml/min/1.73m2 (>59) [facility] GFR ( AMER) >60 ml/min/1.73m2 (>59) [facility] GFR INTERPRETATION [facility] --NORMAL KIDNEY FUNCTION OR MILD DISEASE - GFR >OR= 60CHRONIC KIDNEY DISEASE - GFR 15 - 59RENAL FAILURE - GFR <15 Est. GFR calculation based on the MDRDstudy equation, which assumes a steadystate for creatinine. Est. GFR should notbe used for medication dosing. ID Date Data Source [id number] 04/27/2020 01:33:55 AM EDT [facility] Name Value Range Interpretation Code Description Data Apurva rce(s) Supporting Document(s) PT 11.4 s (9.2-11.9) [facility] INR 1.09 [facility] SUGGESTED THERAPEUTIC RANGES USING INR F ORSTABILIZED ANTICOAGULATED PATIENTS:STANDARD DOSE THERAPY INR 2.0-3.0 DVT, PE, PREVENT DVT OR EMBOLISMHIGH DOSE THERAPY INR 2.5-3.5 PREVENT EMBOLISM FROM MECHANICAL HEART VALVE ID Date Data Source [id number] 04/27/2020 01:05:49 AM EDT [facility] Name Value Range Interpretation Code Description Data Apurva rce(s) Supporting Document(s) WBC 6.3 10*3/uL (4.1-11.0) [facility] RBC 2.72 10*6/uL (4.00-5.40) L [facility] HGB 8.5 g/dL (12.0-16.0) L [facility] HCT 25.4 % (36.0-47.0) L [facility] MCV 93.4 fL (80.0-95.0) [facility] MCH 31.1 pg (27.0-32.0) [facility] MCHC 33.2 g/dL (32.0-36.0) [facility] RDW 15.5 % (10.5-14.5) H [facility] PLT 98 10*3/uL (150-450) L [facility] MPV 8.7 fL (7.1-10.7) [facility] ID Date Data Source [id number] 04/26/2020 08:12:36 PM EDT [facility] Name Value Range Interpretation Code Description Data Apurva rce(s) Supporting Document(s) CHOLESTEROL @ 232 mg/dL (0-200) H [facility] TRIGLYCERIDE @ 196 mg/dL (30-200) [facility] HDL CHOLESTEROL @ 52 mg/dL (>40) [facility] PER NCEP ATP III GUIDELINES:RESULTS LOWE R THAN 40 MG/DL ARE SUGGESTIVEOF INCREASED RISK FOR CORONARY ARTERYDISEASE. RESULTS > OR = TO 60 MG/DL ARECONSIDERED A NEGATIVE RISK FACTOR. CHOL/HDL RATIO 4.5 RATIO [facility] INTERPRETATION OF CHOL-HDL RATIO CHD RISK FEMALE MALEVERY HIGH >8.3 >14.3HIGH 5.6- 8.3 6.7- 14.3AVERAGE 3.7- 5.6 4.0- 6.7BELOW AVERAGE 2.5- 3.7 2.7- 4.0PROTECTED <2.5 <2.7 LDL CHOL (CALC) 141 mg/dL (<130) H [facility] PER NCEP ATP III GUIDELINES: OPTIMAL < 100 NEAR OPTIMAL 100 - 129BORDERLINE HIGH 130 - 159 HIGH 160 - 189 VERY HIGH > 189 ID Date Data Source [id number] 04/26/2020 06:19:55 PM EDT [facility] Name Value Range Interpretation Code Description Data Apurva rce(s) Supporting Document(s) WBC 6.6 10*3/uL (4.1-11.0) [facility] RBC 2.89 10*6/uL (4.00-5.40) L [facility] HGB 8.9 g/dL (12.0-16.0) L [facility] HCT 27.3 % (36.0-47.0) L [facility] MCV 94.6 fL (80.0-95.0) [facility] MCH 30.9 pg (27.0-32.0) [facility] MCHC 32.7 g/dL (32.0-36.0) [facility] RDW 15.5 % (10.5-14.5) H [facility] PLT 113 10*3/uL (150-450) L [facility] MPV 8.4 fL (7.1-10.7) [facility] ID Date Data Source [id number] 04/26/2020 03:42:00 PM EDT [facility] DATE OF EXAM: 04/26/2020LIVER ELASTOGRAP [...] or = 11.6kPa Professional interpretation performed by [facility] End of diagnostic report for accession: [id number] Interpreted: Issa Perez MDTranscribed: 04/26/2020 03:41 PMSigned: 04/26/2020 03:42 PM Issa Perez MD [facility] # [id number] [facility] # [id number] Name Value Range Interpretation Code Description Data Apurva rce(s) Supporting Document(s) ID Date Data Source [id number] 04/26/2020 02:58:00 PM EDT [facility] DATE OF EXAM: 04/26/2020RIGHT UPPER QUAD [...] cooperation during exam Professional interpretation performed by [facility] Medical Imaging at [facility] End of diagnostic report for accession: [id number] Interpreted: Issa Perez MDTranscribed: 04/26/2020 02:56 PMSigned: 04/26/2020 02:58 PM Issa Perez MD [facility] # [id number] [facility] # [id number] Name Value Range Interpretation Code Description Data Apurva rc(s) Supporting Document(s) ID Date Data Source [id number] 04/26/2020 11:26:36 AM EDT [facility] Name Value Range Interpretation Code Description Data Apurva [facility](s) Supporting Document(s) WBC 4.9 10*3/uL (4.1-11.0) [facility] RBC 2.50 10*6/uL (4.00-5.40) L [facility] HGB 7.9 g/dL (12.0-16.0) L [facility] HCT 24.1 % (36.0-47.0) L [facility] MCV 96.5 fL (80.0-95.0) H [facility] MCH 31.6 pg (27.0-32.0) [facility] MCHC 32.7 g/dL (32.0-36.0) [facility] RDW 15.8 % (10.5-14.5) H [facility] PLT 103 10*3/uL (150-450) L [facility] MPV 9.0 fL (7.1-10.7) [facility] ID Date Data Source [id number] 04/26/2020 10:32:10 AM EDT [facility] Name Value Range Interpretation Code Description Data Apurva rce(s) Supporting Document(s) LIPASE 915 U/L (65-230) H [facility] ID Date Data Source [id number] 04/26/2020 05:33:12 AM EDT [facility] Name Value Range Interpretation Code Description Data Apurva rce(s) Supporting Document(s) URINE WBC (0-5) [facility] URINE RBC (0-2) [facility] EPITHELIAL CELLS 1+ [HPF] [facility] BACTERIA 4+ [HPF] [facility] HYALINE CASTS [facility] ID Date Data Source [id number] 04/26/2020 05:24:51 AM EDT [facility] Name Value Range Interpretation Code Description Data Apurva rce(s) Supporting Document(s) PHOSPHORUS 1.7 mg/dL (2.5-4.5) L [facility] ID Date Data Source [id number] 04/26/2020 05:24:51 AM EDT [facility] Name Value Range Interpretation Code Description Data Apurva rce(s) Supporting Document(s) MAGNESIUM 1.9 mg/dL (1.7-2.4) [facility] ID Date Data Source [id number] 04/26/2020 05:11:39 AM EDT [facility] Name Value Range Interpretation Code Description Data Apurva rce(s) Supporting Document(s) COLOR [facility] APPEARANCE [facility] SPEC GRAV URINE 1.033 (1.003-1.030) H [facility] PH URINE 5.5 (5.0-7.5) [facility] LEUK ESTERASE (NEG) [facility] NITRITE URINE (NEG) [facility] PROTEIN URINE 1+ (NEG) A [facility] GLUCOSE URINE (NEG) [facility] KETONE URINE 3+ (NEG) A [facility] UROBILINOGEN 0.2 mg/dL (0-1.0) [facility] BILIRUBIN URINE (NEG) [facility] BLOOD/HGB URINE 1+ (NEG) A [facility] ID Date Data Source [id number] 04/26/2020 05:03:14 AM EDT [facility] Name Value Range Interpretation Code Description Data Apurva rce(s) Supporting Document(s) LACTIC ACID 0.9 mmol/L (0.4-2.0) [facility] ID Date Data Source [id number] 04/26/2020 04:56:53 AM EDT [facility] Name Value Range Interpretation Code Description Data Apurva rce(s) Supporting Document(s) SOURCE [facility] FIO2 [facility] VENOUS PH 7.11 (7.33-7.43) LL [facility] RESULT(S) CALLED TO AND READ BACK KIMBERLY Ritter AT [facility]ICU ON 04/26/2020 AT 0459 BY [address]62 VENOUS PCO2 22 mm[Hg] (38-50) L [facility] V[facility]OUS PO2 97 mm[Hg] (30-50) H [facility] VENOUS O2 SAT 95.6 % (60-85) H [facility] LAAMR BASE DEFICIT 21.0 mmol/L (0.0-2.0) H [facility] VENOUS HCO3 6.7 mmol/L (23-27) L [facility]EN[facility] TOTAL CO2 7.4 mmol/L (24-28) L [facility] BODY TEMPERATURE 98.6 [degF] [facility] ID Date Data Source [id number] 04/25/2020 10:58:00 PM EDT [facility] DATE OF EXAM: 04/25/2020CHEST CLINICAL S TATEMENT: Alcohol withdrawal. TECHNIQUE: Portable AP view of the chest. COMPARISON: None. FINDINGS: The lungs are clear. The cardiomediastinal structures are within normal limits. The visualized osseous structures appear unremarkable. IMPRESSION: No evidence of acute cardiopulmonary pathology. Professional interpretation performed at [facility] .End of diagnostic report for accession: [id number] Interpreted: Jeyson Potts MDTranscribed: 04/25/2020 10:58 PMSigned: 04/25/2020 10:58 PM Jeyson Potts MD [facility] # [id number] BILL # [id number] Name Value Range Interpretation Code Description Data Apurva rce(s) Supporting Document(s) ID Date Data Source [id number] 04/25/2020 10:39:52 PM EDT [facility] Name Value Range Interpretation Code Description Data Apurva rce(s) Supporting Document(s) MUSE EKG PDF encoded Sondra da silva ETANNx3jXjEAEzQth6IyFsNlEQMqXP8elev9R6Z2ySIrK9YpyLOdl1maN1YwM8AzBFHqBITTZQ8JtXWi jb2 [file] R4602OaCi8Nqel7Sz+8+IM7x0Ku084ARx9Kzswa41H l8uw7BukEx1vt4mjK7ngvU43uXeUaITyvJ7SfGL7pco24GQkknq1XyYMqv1R998ZLPAwu+UThmjVqSlL Ksa0Lua9dcH829yD8eszDEPW5XfYA4+7O9Dg0jounme4S1Tc1sMDeH0TyopNvbhvAnCyiQ160v3JZ9NM 7Z+bfj323mrx0ZnWDSznHpwTzg5DFd3LcrSMbz4ieZ qajVcbSpVsfZplrDQTsDI3+aw6p3pHiNKQofmkI17m8xO/68hP7vywh1qaiot2KfakmQ49a82zXnC6OT JaflOIpvsWjX3Nvo+qmIH6sN1GaA6s8h06T709OGpMtX08eaTlL9g9pLvZuuFivfJyhk1LH4Uh1ng46W jlUUYh5zu8Dwij682gMJSaMjlssfRn8CwQzQLjV4MK yFPwRw8cot8DCR+2KzfzzSweIbxXZ/zNorjS/vjX0zney/cFfIsmgpbWy6TizKkQgaU47dVjVXtgHYcm GWdktYS+w4ta72S4gvrAzD6+K6BZxypkl3Nd57hJNylP4rlnPowmS9Rng0VOMbTMeyPgbQpjcbnKzHUq GrmwpRevL1OfQf9Pj+he2aRkVGmPTRkE7YdKIv+6Pq Y58715u+2GgvyPTK0ENXhptmUDAoKK44jXzJUe7ha0AsqZic1AhTLnQfSeSfZilLivBaaiZT0T1Zwlz3 KetFBYKO4fht1whEHrIwHVP8Q0GgDMRYjBTzYx+mBd/tgeHcQLXgu6+NJDjrqLL8E4Bw9T5KakuUMs3n 436A/snVh8uDbSzkww9DwO4tlpvH/c/itOkKTOuAFZ oROO7wLoXXfgK2EqmQiLtWaesroJyVAcW5QG3peyVCfSNVxt3GZ48s+gy+A01liggJ5dxjMa3gr2AJ7h 2KIvu93Aa41ze2N3FDw62hZSGcS3EzOU8VzG79rJiaXoa1+kpP/ahzPrK+oRVxsjPD4ZYYvQ9wzW/Tabby 4kVgu++2cI8bnvOZUnkoSR6bQ6rX4alBbhySUjdX9T sIYflS5en7Yhn3ldMKQZo7xCuzKy1k1yFXePmzolFfiD2dvF24ps6iZ9DD7v8DzHpYKt6QsJ2nhsXgOt +5yOz2zWB3VoNwozD5JBge0n74DdAQw96lsYRi92au/W4jDoYCHqD38MyNDSRg+rf2F8iRF/wq3B9m9v Nyq23zn3SIO4TAAQSAXFPzqbifscDH3NfowuUtIJZ8 Yt+yYpKt3X/material manager/a5Lury0dTB/95FwfKWePz/two7UCpV1Yt/Q2niY7gRX+DHzwLGZFxe8iTu+h43jzt O31iak5DJdJG5e+wUEVn6htKSxC5ZT9du0ki7/hSq+15RQ9fpqBfAt1BzvgRuor725xACY9u60bDod9H 1B+rIx4xh3bboszBgsXZXlz8EPuNEaDh6ljPbt4DPw OYFx6OL7Xj7Zi9BiFuJPlyaWiV1mdrV4KCnWzStqgzrrGp8kW+K5JwfzytgNeloRf/fXYhbnJws9LN4y MCP0kprU3rvlYFT5ktOL5ad5BEehxykNaF0vcemHeUXpcer7ddcByVybDldZrCuse3vjWeAVPbiL8G94 cv+wColMJcYhlgLgLA6MV1Uzqe6gGTZJ1tQlX8vZH8 MZEdqRyIaFGiJCwoonenSGqe7tqf9pii9uz5d0qHw5ov0Jn9twOMa5Hou9JLn2eRPEgNonM2k43ae3xe xQ4uoLSihu3KlzshFZJ//uCsmxXmkNJydra+UswkGb5Ok3KMvdAcrf2YueytsmHhLrZbi7LnA9uyyM+N H0V3S0nCs45ypEDt/LT5qh5q1uM4chWnsa4Wxe5EM1 M9wJziK6euOVhqRAseY9wG6O4xq2e9tIrSfaBWu7is9sLWALn8tWjW3v+N//t/+SL2/0zNJAu5cT19b8 QeNvJM7UM3yNBmKYnFx1QSZsWnFhPKxrjCrWZXMfq4WPjq/P5F5q9B2unZJhPaBZPBABHNoWyHfI94w6 Fe6sIbiDpINuOMwRRiSVFyGieDAbW+ngEYCMUigQqU RaV7M9zLZSQCEfRVprD08pMjrKRqLJbW0TlWQkj2FTDEp2rzsM8oVYVOXopRC46ViOcChMTnJPobj32Y VIB4+Z0tl56D5xDqzPZZXB5xKVVak4XToOy1OucRVQE2m0s4zZMhHM0nnZqy9BfERFOZuUcBcyL4TgBW pgUgeTOpjUwaQdLNrBKihnVdRgVdRtSQdNiHTQhDQi [file] 7m5QdrS/QN+j64o08Lh/uDA/uDQ/zNUs5B8/7g 7kGXzwa7O1e0z7n/8Sr2K6bXjQx7jv0tZ+/8XIHdu/NzBXbtbq/l4U+huxH6kbanxM/nsZVtcgtW0C/8 sisoq0J2ImGq8kJ/JeiCc0c3nrZb/KpXxfmVV+tHxqTVxiYdvMkN753qx+O1bbWR8FEcIg+ceuNX/n/j H2VcmmuVRu7cuHy1zc5VgzSVdmkswAcuDq4e4drXv4 R+HIc3Wz0Y/Nottmw5OG8gmn/cW1Ku9Euoh0bJEz+5cSn4kxMu2+ei/Ri/8vZj/GmhblAibYE5Hti23F Ni9zHt9VU1Gs0WzdEczG/Q5/kcuyLne/W2Wq9MK/QL/9+IZyP+A/2B/kJ/J65B8oklAuT4ovqT8e4mu9 U6N2bmHP1jWuZU/BE9Jtghtg1D+MfnM8ElpPLsn7iD Nd/vrAf6C/3Ddy5pKF2P+ltQ190pCV1VhfVd94AN+jlq2Lie9XX5Ms1B5Sy4Zq2/dr3+PnX+KsLQH/z/ SO22hyS5/rgV1gzyI0AG8L5fB5l9dq/oola9hej5+M0Ls+e1hqh45LI9Pu7BzdX/oF/Q5/sr9Iy6MNIi Ozn6yo3X6Cinb7u2ru1cY/ixgv7Z0M6G3N8F8N/O0a Hv0Of+2Wq7vtXKY4ER+qY9nl6Zy2H//B6cA+IYh4hr0pGnWNwrYe7d7GdpX/UA5yG29Mv6/TvFryIM/c h3MIckqciTkq1wkJ1a/MRpgj3qemvpm5rhBW2rne3kqviQ+qaNWncfB4bYLS5qK4Ph2r8w+MMPs4gI5/ uYST81lO+PH86V+6Hq1akVAIi7VJxXfyT/EI/W65RW 1yyIpk2Zb+n3ajgqoandbbG8c8UcstuSzvYSf6kc/zvXJ+fO/bKJ/cG5J+LJ/d+2H6HfHSoRb2T/Wf87 xeADqw95vj9sgtpvfQyf+GB80jno9gHxF10+Wzit94D7ypJW1Nzh70yuq8/Cio1pXnww97gP839begyG gjax7to8J8+b8/e8Mx4ao1qr1Yd8WKag0goTqw0txO Ox+o/xSVuftOtkezUPG8+0ejZ+sQCqdblLhtotNib5s65p+Z0jZcvKq4A1Ekj6v4FoTn7URh1w8oAJ8m il/WUMu82e++OBzcLGJy3/dn/W83RY7kzfg4o3nQ8ldZGycbv5yxNut/HtKfc50WmjggHDP+aub6Pnw/ Zxcg5uWa+xF3lbgX+txw7FY+uxV/HkftkquX+0Sq5v HYmjrZrxx5zd/EvJu1hB+P71uJ1Q/IJXb1MqYGxvktrPZ7Fb2A/Ij101PWA19Saw+hA7jp6jguzFF/xK 03u4rlVM+or/w7nwNF8xHocqzhkhkSSRO/cT47bffMmq91fdYNew2G33H+I/4KI01EU/+k7pfU1gMU5D xjZgiEy29Ap+oeF8W7r9ml+bdyZJ2zGaVY5MvoM/od /QH+gP9Nl/V8/zsWvk/JX8YlF9dcuh5GoNRWW5ZedpJtaf56SP4Xh4U/f0n7SC4p56ak+ukXxyjeSTC/ xqjVxvX+IKBsxr6Frem0DQOdcGbfgqqh/QN+pbe6mWfD5mZXb+j0eyhNzHOGKFp4lr9I/oF/Qb+g39gf 3Ad1QE28Uz2Ocxru6XDV2HDtsw/t8QT/KrhfWrtVDe eug8xhHHq+X3/vfr36J4Y9n4YvYB+xW/QktAxDdL0l/UtrF+tXC+uKf2zpe9m4cq29/Cd3sa7GXezh5G cCD14bm074qC+856Vict3MSk21bEXcpVTaaO4Qivn8wzws9CC/T/PH+4mn5DurR28AS+0vl29a+T63Xr YHw+tO3drCfZqWQ+gQzlPa5hNlgKAmxpeZ60aV1T3M 7j+H8W/n0zp3hhJmeWaK5cVnpk36r382L9pXNrqdy9ra4a3jsxRgsy8LJpt0t0384zpu1dqAt2Y9z462 v3e9F/70L8C+nc3NoRb6D/0F/ok1/neh87rsB3xg2Pu+vPu+R+ud70k1WTde/r1v0y5ty4r/Ckjbks4o ev4d5joW835vfThi/yVw0l58ja/NWVPs/axBYgV49d 39g1+eTW+fmtaJ1aeXl8jf9U+uzW+fjxoL6X4Zg/tXX+odwh42SMb8dZTzGQ3xzKmnfn/Zoa6sadr0Y5 ytc5t/ZdmJ94HudvlNY1IDBs5OSgxZvRpiM5ujQ8+2lKUehkT75D4Iqxdl9d5Xyl1X02umuySe89Idr0 0V83tSqE4i2Z33pgbKa/8jwbv/KyGL/yMhq/8npo4s 8ezvrU+avqYat/v2a5n2W4jjFGXuv1Gb1nHn8+a05G6xc/mCqk71bzPvr/5eEB/YB+ZvvR+Su1K52/2h 0G2gorzF0sx7Ik8xjA4ixZ6Bc2JF+/tX6l/fW3mlgYL3Jo6EufL/Qd+t41cJ505R+1fqV+PXK/bI+cj/ ZY0G/oN/QH+gP9hT6/j/bM/d89C/QV+yl0p52Qc/FK /OciSXhldlSF5Cs1X/GgvOJXqh/xK9Wb+FWEob/U59ArTG+5kj20YIPi7ZmhC/Qd+l40aL6lb31zE/QL +gT7vc1vAUbmNalMnepN1y7vocZ8h6nq0l3g16L1S3u5Xx4E8k7In0C+5wcWvw6A8hHHh0/oN/QH+gP9 dJ4711B/HvTfg/570H8P+u9B/j14ncZjzQ+0T94/2m dAP3M+PTPnU+0FKtp5jXuR9+850B/oL/S0yvmiJ+VB/Pj4ssx9pWKrR0+u/+H20s2a0kYyx/x81waCuF W+ERJ7cevfGM4Pt6C+PcLQb+jzvOjW+Shayan+CxgfcfL25s5u3wLMAbuSwUEpvWy023LusBbjyGnJ/Qd8V s8v9uyiVkV90zNdv/pDBUHpLusfoJm2y8/DAYy9a87 z0H8F+neN8+psyGnoBI4Ap2WpzF61Sr1Xm7yHl3l5Ov4vk+AL58Jyb9pn953AI0jq/DM/2z8f0N/oD/Q X+qzcBrGTfefw1ni7f4bmo/QN+cj0J41z3So/t7nd9qs50h4s2nK+kug9sawxgq7n2gpoje7i5Q7fxAj H9n0Rs07R5vpRtpepRqeZ91D8czQ4h5UHh+yvnbEr9 ROjF+J+d1vY8izMhvsQIywLP/Sudlj/EpnZc/Hr+sf5xpD3s9D5AOA6Cn7n3G5/342n16nJ675em5wRK vO07faCost7IkZHG9GMRrlQtune1dvqwcQZF8xwyhMR4z6LiWS9k15kc60qNVujcQiu4feWsrnv809jd fvq0snMxEk6dbw2+7z2zZb1X/0B/qXvD1LHbooIiZU d+I56sj76evidR4m/CrCHf/P+zjH+NULQz+lq7Cn5Dy3X/xPpNA8A+GbXK0HqJiQutn8JsnIgsd7pdpy Z6G8C+VdGK/UXMcX1O/iK5DB8H+t9g6qZ4eU3aDW8Uz/oEeWR7twqX9k290U8UvMFsgyrrTM+SGOZ50y /N/6/rRL54Lu7Y/oJ/QL+fO9wu6Ol/qnUcip8OQc6U bkaJ7n23gtL++Pxq/0rX2MX+kb8xi/qpJU8i0/j/5v37/t79jj1K26fV/pe/YYv/Lw9luFPYN2/2r80f krD2/8f+P/B/qD/98hy5yv9cv6DR/S9/feqbEa8VR20qKal5T80Zx7VelT+AfSnVmuq/UwjJODRa1Z4+ EF3V4v71p/3NwvO/ckbzF+5pUQj9r+43c2XE9qj7B2 cMWvivStIPzazxW/ijD0A/oB/YR+Qr+nH6Pf5GxqJ05Z7xsRg1259F+MR/xK+Re/WqwRJ7lQpD+pDm/N 0glrufzraj3tcj50Sr06VovwqqTy2G3ajeU2m3aiD1P0X4+/Fqpx9NZucVQ/lze3LBJvfng4pw5Jlsyo oG/Qd+jOKl0msinm60seD6qS3p17b9U8hhpSkorb+f NtG/rkz7fh/bnkt8km42UolA/wja2bRojy8FU/qtns7bZC5+9MLom0u6od6k+u9Hn/9/ZEbU5P4h3oHb /JY4TEbq9GWvSpwEIvA3/yMPT5/Xt7nn++I88/35Hf+8jipr2yyX94ck8gbrzvi7i/1cgcbE2mkoIweh njk6zhY8R9pI2W3EFw11pQqj/gfgaB8dp62qf9I8YF uDu6jq8W0rofR/Hea/nclk7At5O8sUlek8LkZURI0w2mNaa3J3+hXAFc0Z/61eHWJhn22i5lC6TnG/Hn eYZr/CryYOcZVD/Ep6cDXhjSwhR/FFUygnoX916e+NWdeV/yzrzffVd+71+gi861891rqu8fmY4/tX6l /K+2w7XCp61BH9Pf7Y/oF/QL+l03ph3Vs0K/yGful9 1e7mSvmm4ER/sMF+xgYa8l6z1u65S03Ae2K/oJ/YR+Qb+v89eA1bYGjD4958S+L/S6i0NM7lf6K8+b3Z Obvg5NeA/Ki/bD96Q0A+D5XC2ZrI/Ke1Deg/JpoHzf5YIzu/f15y9fQTs/B+/35v2Ue/N+yr0V+lx/vj eb0u4b53MP89spRak/96/2BzVm+xz5uEa7G/oF/FRISIAN+ [file] p9+1ozx0ZY4CqcZo+94LlXC83M64iAI6S+Rs8x1L2chcr/Oh8Ft6Q2aE71j+Ef4Zf+care home/lyCv0Vq1Cv +C44Qhlk/Cl+/dQ/gh/BD+FL70L+mgbmnjv4k+di1kvLwiAf957IxEiP+Q0c2Nl3JphiEixqX/Txd+2U +uU/fJ02z8JpSdSXd9b+uU/nmdsudfp+731yl7/nXK nn+d0seuU/eC4ipeCkzlnBZ+Cd+FX/s2ODxRv/CHhjR6RE3FV1Hmghf+eaMcdy/Y8B+8ZXl+y/vUeX9L fIaN+YzFVxvO540Cs0GqqiaApaO4x4s2LRem+RWjhpc6d446C4wM/++G/2CuJxv+luqPk8WY/zZQcL3f 3A+yzi31b+Za2ei86f9zmGeXvjk/7ve3l7/I9jIzlU /C7/L8EH5+i8HF1HU/mo20ptw2LyF+do0nrqU/3l7zd+N+PCTOpm3V837CedE17gU/jOPmFdadfDoI0T /0nuXjje419G5c8q1Vv5V//bBz9S7sM353/bNGBs29p397KRP/+8NX3Vj/Z8/CVVT77sgy+Ei3c8r48F a+xeSf2AfMF3M51xq2e/vu3cs+do+639+n5JH72F9j l5R3mk1KXdIXk/CjiK7wJX9uctNN9vHcMhzfejrZ0k+wv3KWa/wMGc+j/J31qYeZdN2x+Qj/FD/qvntH cR64fO13Og/WAWao2Ap6emk8Ka4Z2hz75YheeXXm3RI+nxwnS4e2P+2/O2r/3WLfvmML/sfe0t7c/9At +JfCW9Qdvc8IxvNeqnrgpT8OO+5ZeHLPIc+PWg8FX+ 0ZUv8U/pR66ry/Z+HnLfeDG/sljWO7E+lwjg4U5UZnvs7fU73w0N3d8LY+ATU6ot3rV2+Taa6PnWaKe/ zZ94I+evF6UjO6Xu+1V23QydOcxJn43tcp5/eq+6Od+[employer]+B22Upx5dolN79Oj+Rh42griPh08N/EVzv Y16VH2zDucG/dn2uYQFSZuaiN+DjlBLfjv4ePkp/CH 8EP46W+FttpYrwzl+WFABOy262g++Jh3ia+tL4lYw2Ci6swKtywpJppTz/x86gfEl/iK9Se+ax3bP77i +chEo5GMgZ/yK0E8Sz/hLm+fui/bp/zp9oE/UslzG7fVpqrPid/gR7xP+Wts+G2eccns8W+EfhkKgv0G ddAQzafxMqZe9BZ+K16aNJdYRk0T19IV/9xjob06xM f5XaeV/1Xt9D96cE3VYdxtB/jqAF8Z+MWZGW8Fq1T//mlH6i//kcO48qizx+b9n8LzZlKvm9knPtaN54 u/+1gX/pDnS99+iMMZkXUIqxgNT5B/pJ4l9W/0fmJf1Hu2a3v7pgdjnjjrc/BN+J11I50kjbL/INrcCz 8f+A/nrzA16dWdz6nJeglhslFPHQ0VD/ne36Ysseot vY+KocbnAh1v1X1Jbn+liX204eHHxzh9w3z22uaPg3/l1L4n91EP+2FBb3JMoo/rjjfuD1kbjIQiX+GX A65FaxQ24qUwoceVxw1BbwV9KTiXvCCZtQA1Twoz9UsR75UC2NjrSbJST9I0zyI8T32a2MekXQ+F8TAq fs4ZFU/oJK9WejuZA485a+Ydf8g16YAuT3D+fNWN73 MyvgF+a72h8npoWXcxVuaPQFrWO4FXxndD3DN+np1q9RX+GBkNPdBLeKX37lU+kM+NKbdtxubgqd3tUG 6K8yAfbSRl9efK9D1+ibIXPVH3+ye2PH+q/RH/CuVZ+PnMJnwTvgnfhe/Cl/4sXQ27QnrnNMfQlnpAJ+ QP3Cz36FdnR4sjxI+U751b+Ef4+h7rr0S2LXqywuCP Yd+ONl8V7+kIcs8rMFbkO+3bWRb+kOfLnuGIffsR+/yjoaCpk68gOc+aRwTYF73jg+HL/WG9VKbqWVnr kx43i49AN7j/6IH+PatRmoMu9RI+Johann/ZvMn5HnKg3bw33jyxwiTs+FIfIazyz/x4PyBjx66adD94jUf [file] NSAwIFIKCj4+AxN3YXY6rEGxJqzrZRd4IybZCPKCW0X= ID Date Data Source [id number] 04/26/2020 10:43:17 AM EDT [facility] Name Value Range Interpretation Code Description Data Apurva rce(s) Supporting Document(s) HEMOGLOBIN A1C @ 5.1 % (4.0-6.0) [facility] Performed using Siemens [place] immunoassa y.Care must be taken when interpreting KuG9xjhcfolt in patients with a hemoglobin variantor decreased erythrocyte lifespan. Values 5.7 - 6.4% suggest prediabetes.Values >=6.5% are diagnostic for diabetes.REFERENCE: DIABETES CARE 2018: 41(S13-S27).PERFORMED AT [address] [facility] [id number] EST AVERAGE GLUCOSE 100 mg/dL [facility] ID Date Data Source [id number] 04/26/2020 04:25:54 AM EDT [facility] SPEC EXP DATE 04/28/2020PATI ENT ABO/Rh A POSITIVEANTIBODY SCREEN NEGATIVETESTING SITE PERFORMED AT [address] [facility] [id number] Name Value Range Interpretation Code Description Data Apurva rce(s) Supporting Document(s) ID Date Data Source [id number] 04/25/2020 11:30:28 PM EDT [facility] Name Value Range Interpretation Code Description Data Apurva rce(s) Supporting Document(s) TROPONIN I <0.05 ng/mL (<0.05) [facility] [place] Less than 0.05: Myocardial injury unlike lyGreater than or equal to 0.05: Highly suggestive of myocardial injuryCorrelation with rise and/or fall ofserial troponins, clinical symptomsand ECG changes is necessary. ID Date Data Source [id number] 04/25/2020 11:30:28 PM EDT [facility] Name Value Range Interpretation Code Description Data Apurva rce(s) Supporting Document(s) SODIUM 134 mmol/L (136-145) L [facility] POTASSIUM 3.7 mmol/L (3.6-5.2) [facility] CHLORIDE 101 mmol/L (100-108) [facility] CO2 8 mmol/L (22-31) LL [facility] RESULT(S) CALLED TO AND READ BACK NAEEM GIL AT [employer] ON 04/25/2020 [place] [address]49 [place] [id number] ANION GAP 25 mmol/L (7-16) H [facility] RESULTS REVIEWED UREA NITROGEN 10 mg/dL (7-24) [facility] CREATININE 0.86 mg/dL (0.60-1.00) [facility] BUN/CREAT RATIO 11.6 RATIO (10.0-20.0) [facility] GLUCOSE 106 mg/dL (70-99) H [facility] CALCIUM 8.1 mg/dL (8.4-10.2) L [facility] GFR >60 ml/min/1.73m2 (>59) [facility] GFR ( AMER) >60 ml/min/1.73m2 (>59) [facility] GFR INTERPRETATION [facility] --NORMAL KIDNEY FUNCTION OR MILD DISEASE - GFR >OR= 60CHRONIC KIDNEY DISEASE - GFR 15 - 59RENAL FAILURE - GFR <15 Est. GFR calculation based on the MDRDstudy equation, which assumes a steadystate for creatinine. Est. GFR should notbe used for medication dosing. ID Date Data Source [id number] 04/25/2020 11:30:28 PM EDT [facility] Name Value Range Interpretation Code Description Data Apurva rce(s) Supporting Document(s) TOTAL PROTEIN 7.5 g/dL (6.4-8.2) [facility] ALBUMIN 3.8 g/dL (3.2-4.5) [facility] GLOBULIN 3.7 g/dL (2.7-4.3) [facility] ALB/GLOB RATIO 1.0 RATIO [facility] BILIRUBIN,TOTAL 1.5 mg/dL (0.0-1.0) H [facility] PLEASE NOTE:Total bilirubin results may be falselyelevated in patients taking Eltrombopag. BILIRUBIN,CONJUGATED 0.9 mg/dL (0.0-0.3) H [facility] BILIRUBIN,UNCONJ. 0.6 mg/dL (0.0-0.7) [facility] ALKALINE PHOSPHATASE 125 U/L (45-117) H [facility] AST (SGOT) 201 U/L (11-39) H [facility] ALT (SGPT) 142 U/L (12-78) H [facility] ID Date Data Source [id number] 04/25/2020 11:30:28 PM EDT [facility] Name Value Range Interpretation Code Description Data Apurva rce(s) Supporting Document(s) LIPASE 852 U/L (65-230) H [facility] ID Date Data Source [id number] 04/25/2020 11:06:55 PM EDT [facility] Name Value Range Interpretation Code Description Data Apurva rce(s) Supporting Document(s) PT 10.9 s (9.2-11.9) [facility] PERFORMED AT [address] [facility] [id number] INR 1.04 [facility] SUGGESTED THERAPEUTIC RANGES USING INR F ORSTABILIZED ANTICOAGULATED PATIENTS:STANDARD DOSE THERAPY INR 2.0-3.0 DVT, PE, PREVENT DVT OR EMBOLISMHIGH DOSE THERAPY INR 2.5-3.5 PREVENT EMBOLISM FROM MECHANICAL HEART VALVE ID Date Data Source [id number] 04/25/2020 10:57:27 PM EDT [facility] Name Value Range Interpretation Code Description Data Apurva rce(s) Supporting Document(s) WBC 6.1 10*3/uL (4.1-11.0) [facility] [place] RBC 3.33 10*6/uL (4.00-5.40) L [facility] HGB 10.5 g/dL (12.0-16.0) L [facility] HCT 31.9 % (36.0-47.0) L [facility] MCV 96.0 fL (80.0-95.0) H [facility] MCH 31.7 pg (27.0-32.0) [facility] MCHC 33.0 g/dL (32.0-36.0) [facility] RDW 15.4 % (10.5-14.5) H [facility] PLT 148 10*3/uL (150-450) L [facility] MPV 8.5 fL (7.1-10.7) [facility] NEUT % 80.6 % (35.0-75.0) H [facility] LYMPH % 12.8 % (16.0-52.0) L [facility] MONO % 6.0 % (0.0-8.0) [facility] EOS % 0.1 % (0.0-5.0) [facility] BASO % 0.5 % (0.0-4.0) [facility] NEUT # 4.9 10*3/uL (1.8-7.7) [facility] LYMPH # 0.8 10*3/uL (1.2-4.8) L [facility] MONO # 0.4 10*3/uL (0.0-0.8) [facility] Eosinophils [#/volume] in Blood by Automated count 0.0 10*3/uL (0.0-0 .5) [facility] BASO # 0.0 10*3/uL (0.0-0.2) [facility] Procedure Social History Code Duration Value Status Description Data Source(s ) Smoking 06/20/2021 12:00:00 AM EDT Unknown if ever smoked comp leted Unknown if ever smoked [facility] ([facility]) Smoking 06/08/2021 12:00:00 AM EDT Current Smoker completed Curre nt Smoker eCW1 ([facility]) Smoking 06/08/2021 12:00:00 AM EDT Current Smoker completed Curre nt Smoker eCW1 ([facility]) Smoking 06/08/2021 12:00:00 AM EDT Current Smoker completed Curre nt Smoker eCW1 ([facility]) Smoking 06/05/2021 12:00:00 AM EDT Current Smoker completed Curre nt Smoker eCW1 ([facility]) Smoking 05/15/2021 12:00:00 AM EDT Current Smoker completed Curre nt Smoker eCW1 ([facility]) Smoking 05/04/2021 12:00:00 AM EDT Current Smoker completed Curre nt Smoker eCW1 ([facility]) Smoking 05/04/2021 12:00:00 AM EDT Current Smoker completed Curre nt Smoker eCW1 ([facility]) Smoking 05/04/2021 12:00:00 AM EDT Current Smoker completed Curre nt Smoker eCW1 ([facility]) Smoking 05/04/2021 12:00:00 AM EDT Current Smoker completed Curre nt Smoker eCW1 ([facility]) Smoking 04/12/2021 12:00:00 AM EDT Current Smoker completed Curre nt Smoker eCW1 ([facility]) Smoking 04/12/2021 12:00:00 AM EDT Current Smoker completed Curre nt Smoker eCW1 ([facility]) Smoking 04/05/2021 12:00:00 AM EDT Unknown if ever smoked comp leted Unknown if ever smoked [facility] ([facility]) Smoking 03/07/2021 12:00:00 AM EDT Unknown if ever smoked comp leted Unknown if ever smoked [facility] ([facility]) Smoking 01/16/2021 12:00:00 AM EDT Unknown if ever smoked comp leted Unknown if ever smoked [facility] ([facility]) Smoking 01/09/2021 12:00:00 AM EDT Unknown if ever smoked comp leted Unknown if ever smoked [facility] ([facility]) Smoking 01/01/2021 12:00:00 AM EDT Current Smoker completed Curre nt Smoker eCW1 ([facility]) Smoking 01/01/2021 12:00:00 AM EDT Current Smoker completed Curre nt Smoker eCW1 ([facility]) Smoking 01/01/2021 12:00:00 AM EDT Current Smoker completed Curre nt Smoker eCW1 ([facility]) Smoking 01/01/2021 12:00:00 AM EDT Current Smoker completed Curre nt Smoker eCW1 ([facility]) Smoking 01/01/2021 12:00:00 AM EDT Current Smoker completed Curre nt Smoker eCW1 ([facility]) Smoking 12/26/2020 12:00:00 AM EDT Unknown if ever smoked comp leted Unknown if ever smoked [facility] ([facility]) Smoking 12/19/2020 12:00:00 AM EDT Unknown if ever smoked comp leted Unknown if ever smoked [facility] ([facility]) Smoking 12/12/2020 12:00:00 AM EDT Unknown if ever smoked comp leted Unknown if ever smoked [facility] ([facility]) Smoking 11/21/2020 12:00:00 AM EDT Unknown if ever smoked comp leted Unknown if ever smoked [facility] ([facility]) Smoking 11/14/2020 12:00:00 AM EDT Unknown if ever smoked comp leted Unknown if ever smoked [facility] ([facility]) Smoking 10/19/2020 12:00:00 AM EST Unknown if ever smoked comp leted Unknown if ever smoked [facility] ([facility]) Smoking 10/17/2020 12:00:00 AM EST Unknown if ever smoked comp leted Unknown if ever smoked [facility] ([facility]) Smoking 10/02/2020 12:00:00 AM EST Current Smoker completed Curre nt Smoker eCW1 ([facility]) Smoking 10/02/2020 12:00:00 AM EST Current Smoker completed Curre nt Smoker eCW1 ([facility]) Smoking 10/02/2020 12:00:00 AM EST Current Smoker completed Curre nt Smoker eCW1 ([facility]) Smoking 10/02/2020 12:00:00 AM EST Current Smoker completed Curre nt Smoker eCW1 ([facility]) Smoking 10/02/2020 12:00:00 AM EST Current Smoker completed Curre nt Smoker eCW1 ([facility]) Smoking 10/02/2020 12:00:00 AM EST Current Smoker completed Curre nt Smoker eCW1 ([facility]) Smoking 09/27/2020 12:00:00 AM EST Unknown if ever smoked comp leted Unknown if ever smoked [facility] ([facility]) Smoking 09/05/2020 12:00:00 AM EST Unknown if ever smoked comp leted Unknown if ever smoked [facility] ([facility]) Smoking 08/30/2020 12:00:00 AM EST Current Smoker completed Curre nt Smoker eCW1 ([facility]) Smoking 08/30/2020 12:00:00 AM EST Current Smoker completed Curre nt Smoker eCW1 ([facility]) Smoking 08/30/2020 12:00:00 AM EST Current Smoker completed Curre nt Smoker eCW1 ([facility]) Smoking 08/30/2020 12:00:00 AM EST Current Smoker completed Curre nt Smoker eCW1 ([facility]) Smoking 08/30/2020 12:00:00 AM EST Current Smoker completed Curre nt Smoker eCW1 ([facility]) Smoking 08/22/2020 12:00:00 AM EST Unknown if ever smoked comp leted Unknown if ever smoked [facility] ([facility]) Smoking 07/28/2020 12:00:00 AM EST Unknown if ever smoked comp leted Unknown if ever smoked [facility] ([facility]) Smoking 07/25/2020 12:00:00 AM EST Unknown if ever smoked comp leted Unknown if ever smoked [facility] ([facility]) Smoking 07/11/2020 12:00:00 AM EST Current Smoker completed Curre nt Smoker eCW1 ([facility]) Smoking 07/11/2020 12:00:00 AM EST Current Smoker completed Curre nt Smoker eCW1 ([facility]) Smoking 07/04/2020 12:00:00 AM EST Unknown if ever smoked comp leted Unknown if ever smoked [facility] ([facility]) Smoking 06/20/2020 12:00:00 AM EDT Unknown if ever smoked comp leted Unknown if ever smoked [facility] ([facility]) Smoking 06/06/2020 12:00:00 AM EDT Unknown if ever smoked comp leted Unknown if ever smoked [facility] ([facility]) Smoking 04/26/2020 08:03:00 AM EDT Daily Smoker completed Daily S [facility] Smoking 04/26/2020 12:00:00 AM EDT Unknown if ever smoked comp leted Unknown if ever smoked [facility] ([facility]) Vital Signs ID Date Data Source UNK Name Value Range Interpretation Code Description Data Source(s) Body weight 156 [lb_av] 156 [lb_av] eCW1 ([facility]) Body weight 70.76 kg 70.76 kg eCW1 ([facility]) Respiratory rate 18 /min 18 /min eCW1 ([facility]) Body temperature 97.8 [degF] 97.8 [degF] eCW1 ( [facility]) Systolic blood pressure 132 mm[Hg] 132 mm[Hg] e CW1 ([facility]) Body height [in_i] eCW1 ([facility]) Diastolic blood pressure 78 mm[Hg] 78 mm[Hg] eCW1 ([facility]) Body mass index (BMI) [Ratio] 28.08 kg/m2 28.08 kg/m2 eCW1 ([facility]) Heart rate 116 /min 116 /min eCW1 ([facility]) Body height 0.00 in Normal (applies to non-numeric resu lts) 0.00 in [facility] ([facility]) Body weight Measured 0.00 lbs Normal (applies to n on-numeric results) 0.00 lbs [facility] ([facility]) Body mass index (BMI) [Ratio] 0.00 kg/m2 No rmal (applies to non-numeric results) 0.00 kg/m2 [facility] ([facility]) Systolic blood pressure 0 mm[Hg] Normal (applies t o non-numeric results) 0 mm[Hg] [facility] ([facility]) Diastolic blood pressure 0 mm[Hg] Normal (applies to non-numeric results) 0 mm[Hg] [facility] ([facility]) Body weight 162 [lb_av] 162 [lb_av] eCW1 ([facility]) Body height [in_i] eCW1 ([facility]) Body mass index (BMI) [Ratio] 29.15 kg/m2 29.15 kg/m2 eCW1 ([facility]) Heart rate 107 /min 107 /min eCW1 ([facility]) Respiratory rate 18 /min 18 /min eCW1 ([facility]) Body temperature 95.1 [degF] 95.1 [degF] eCW1 ( [facility]) Systolic blood pressure 132 mm[Hg] 132 mm[Hg] e CW1 ([facility]) Diastolic blood pressure 82 mm[Hg] 82 mm[Hg] eCW1 ([facility]) Body height 0.00 in Normal (applies to non-numeric resu lts) 0.00 in [facility] ([facility]) Systolic blood pressure 0 mm[Hg] Normal (applies t o non-numeric results) 0 mm[Hg] [facility] ([facility]) Diastolic blood pressure 0 mm[Hg] Normal (applies to non-numeric results) 0 mm[Hg] [facility] ([facility]) Body weight Measured 0.00 lbs Normal (applies to n on-numeric results) 0.00 lbs [facility] ([facility]) Body mass index (BMI) [Ratio] 0.00 kg/m2 No rmal (applies to non-numeric results) 0.00 kg/m2 [facility] ([facility]) Body height 0.00 in Normal (applies to non-numeric resu lts) 0.00 in [facility] ([facility]) Body weight Measured 0.00 lbs Normal (applies to n on-numeric results) 0.00 lbs [facility] ([facility]) Body mass index (BMI) [Ratio] 0.00 kg/m2 No rmal (applies to non-numeric results) 0.00 kg/m2 [facility] ([facility]) Systolic blood pressure 0 mm[Hg] Normal (applies t o non-numeric results) 0 mm[Hg] [facility] ([facility]) Diastolic blood pressure 0 mm[Hg] Normal (applies to non-numeric results) 0 mm[Hg] [facility] ([facility]) Body height 0.00 in Normal (applies to non-numeric resu lts) [facility] Body weight Measured 0.00 lbs Normal (applies to n on-numeric results) [facility] Body mass index (BMI) [Ratio] 0.00 kg/m2 No rmal (applies to non-numeric results) 0.00 kg/m2 [facility] ([facility]) Systolic blood pressure 0 mm[Hg] Normal (applies t o non-numeric results) 0 mm[Hg] [facility] ([facility]) Diastolic blood pressure 0 mm[Hg] Normal (applies to non-numeric results) 0 mm[Hg] [facility] ([facility]) Body weight 157 [lb_av] 157 [lb_av] eCW1 ([facility]) Body height [in_i] eCW1 ([facility]) Body mass index (BMI) [Ratio] 28.25 kg/m2 28.25 kg/m2 W1 ([facility]) Heart rate 102 /min 102 /min W1 ([facility]) Respiratory rate 18 /min 18 /min W1 ([facility]) Body temperature 96.8 [degF] 96.8 [degF] eCW1 ( [facility]) Systolic blood pressure 148 mm[Hg] 148 mm[Hg] e CW1 ([facility]) Diastolic blood pressure 72 mm[Hg] 72 mm[Hg] eCW1 ([facility]) Body height 0.00 in Normal (applies to non-numeric resu lts) 0.00 in [facility] ([facility]) Body weight Measured 0.00 lbs Normal (applies to n on-numeric results) 0.00 [facility]) Body mass index (BMI) [Ratio] 0.00 kg/m2 No rmal (applies to non-numeric results) 0.00 kg/m2 [facility] ([facility]) Systolic blood pressure 0 mm[Hg] Normal (applies t o non-numeric results) 0 mm[Hg] [facility] Diastolic blood pressure 0 mm[Hg] Normal (applies to non-numeric results) 0 mm[Hg] [facility] ([facility]) Body weight 155 [lb_av] 155 [lb_av] eCW1 ([facility]) Body height [in_i] eCW1 ([facility]) Body mass index (BMI) [Ratio] 27.90 kg/m2 27.90 kg/m2 eCW1 ([facility]) Heart rate 97 /min 97 /min W1 ([facility]) Respiratory rate 17 /min 17 /min W1 ([facility]) Body temperature 97.4 [degF] 97.4 [degF] eCW1 ( [facility]) Systolic blood pressure 138 mm[Hg] 138 mm[Hg] e CW1 ([facility]) Diastolic blood pressure 82 mm[Hg] 82 mm[Hg] eCW1 ([facility]) Body height 0.00 in Normal (applies to non-numeric resu lts) 0.00 in [facility] ([facility]) Body weight Measured 0.00 lbs Normal (applies to n on-numeric results) 0.00 lbs [facility] ([facility]) Body mass index (BMI) [Ratio] 0.00 kg/m2 No rmal (applies to non-numeric results) 0.00 kg/m2 [facility] ([facility]) Systolic blood pressure 0 mm[Hg] Normal (applies t o non-numeric results) 0 mm[Hg] [facility] ([facility]) Diastolic blood pressure 0 mm[Hg] Normal (applies to non-numeric results) 0 mm[Hg] [facility] ([facility]) Body weight 144 [lb_av] 144 [lb_av] eCW1 ([facility]) Body height [in_i] eCW1 ([facility]) Body mass index (BMI) [Ratio] 25.92 kg/m2 25.92 kg/m2 eCW1 ([facility]) Heart rate 112 /min 112 /min eCW1 ([facility]) Respiratory rate 18 /min 18 /min eCW1 ([facility]) Body temperature 96.8 [degF] 96.8 [degF] eCW1 ( [facility]) Systolic blood pressure 132 mm[Hg] 132 mm[Hg] e CW1 ([facility]) Diastolic blood pressure 84 mm[Hg] 84 mm[Hg] eCW1 ([facility]) Systolic blood pressure 124 mm[Hg] Normal (applies t o non-numeric results) 124 mm[Hg] [facility] Diastolic blood pressure 72 mm[Hg] Normal (applies to non-numeric results) 72 mm[Hg] [facility] Heart rate 97 min Normal (applies to non-numeric resul ts) 97 min [facility] Respiratory rate 18 min Normal (applies to non-numeric results) 18 min [facility] Body temperature 37.2 isabell Normal (applies to non-numeric results) 37.2 isabell [facility] Deprecated Oxygen saturation in Capillary blood by Oximetry 97 % Normal (applies to non-numeric results) 97 % [facility] Body height 159.7152 cm Normal (applies to non-numeric res ults) 159.7152 cm [facility] Body mass index (BMI) [Ratio] 26.09 kg/m2 No rmal (applies to non-numeric results) 26.09 kg/m2 [facility] Body weight Measured 66.8 kg Normal (applies to non-num hilda results) 66.8 kg [facility] Inhaled oxygen concentration 40 % Normal (appl ies to non-numeric results) 40 % [facility] ID Date Data Source [id number] 12/11/2020 08:00:00 AM EDT [facility] spital Name Value Range Interpretation Code Description Data Source(s) Weight (Calculated Kilograms) 68.04 68.04 [facility] Weight 2400 2400 [facility] pital Temperature Source 7 7 [facility] Temperature 97.7 97.7 [facility] spital Respiratory Effort 1 1 [facility] Respiratory Rate 18 18 [facility] Pulse Assessment Method [facility] 84 84 [facility] pital Height (Calculated Centimeters) 160.02 160. 02 [facility] Height 63 63 [facility] pital Blood Pressure 147/79 147/79 [facility] Body Mass Index (BMI) 26.5 26.5 [facility] Weight (Calculated Kilograms) 68.04 68.04 [facility] Weight 2400 2400 [facility] pital Temperature Source 7 7 [facility] Temperature 97.7 97.7 [facility] spital Respiratory Effort 1 1 [facility] Respiratory Rate 18 18 [facility] Pulse Assessment Method 4 4 [facility] Pulse Rate 84 84 [facility] pital Height (Calculated Centimeters) 160.02 160. 02 [facility] Height 63 63 [facility] pital Blood Pressure 147/79 147/79 [facility] Body Mass Index (BMI) 26.5 26.5 [facility] Weight (Calculated Kilograms) 68.04 68.04 [facility] Weight 2400 2400 [facility] pital Temperature Source 7 7 [facility] Temperature 98.6 98.6 [facility] spital Respiratory Effort 1 1 [facility] Respiratory Rate 18 18 [facility] Pulse Assessment Method 4 4 [facility] Pulse Rate 73 73 [facility] pital Height (Calculated Centimeters) 160.02 160. 02 [facility] 63 63 [facility] 133/88 133/88 [facility] Body Mass Index (BMI) 26.5 26.5 [facility] Weight (Calculated Kilograms) 68.04 68.04 [facility] Weight 2400 2400 [facility] pital Temperature Source 7 7 [facility] Temperature 98.0 98.0 [facility] Respiratory Effort 1 1 [facility] Respiratory Rate 16 16 [facility] Pulse Assessment Method 4 4 [facility] Pulse Rate 87 87 [facility] pital Height (Calculated Centimeters) 160.02 160. 02 [facility] Height 63 63 [facility] pital Blood Pressure 114/74 114/74 [facility] Body Mass Index (BMI) 26.5 26.5 [facility] Weight (Calculated Kilograms) 68.04 68.04 [facility] Weight 2400 2400 [facility] pital Temperature Source 7 7 [facility] Temperature 98.0 98.0 [facility] spital Respiratory Effort 1 1 [facility] Respiratory Rate 16 16 [facility] Pulse Assessment Method 4 4 [facility] Pulse Rate 114 114 [facility] pital Height (Calculated Centimeters) 160.02 160. 02 [facility] Height 63 63 [facility] [facility] Blood Pressure 109/68 109/68 [facility] Body Mass Index (BMI) 26.5 26.5 [facility] Weight (Calculated Kilograms) 68.04 68.04 [facility] Weight 2400 2400 [facility] pital Temperature Source 7 7 [facility] Temperature 98.0 98.0 [facility] spital Respiratory Effort 1 1 [facility] Respiratory Rate 16 16 [facility] Pulse Assessment Method 4 4 [facility] Pulse Rate 114 114 [facility] pital Height (Calculated Centimeters) 160.02 160. 02 [facility] Height 63 63 [facility] pital Blood Pressure 109/68 109/68 [facility] Body Mass Index (BMI) 26.5 26.5 [facility] Weight (Calculated Kilograms) 68.67 68.67 [facility] Height (Calculated Centimeters) 160.02 160. 02 [facility] Body Mass Index (BMI) 26.8 26.8 [facility] ID Date Data Source [id number] 12/05/2020 07:49:00 PM EDT [facility] spital Name Value Range Interpretation Code Description Data Source(s) Weight Measurement Method 1 1 [facility] Weight (Calculated Kilograms) 69.22 69.22 [facility] Weight 2441.6 2441.6 [facility] pital Temperature Source 3 3 [facility] Temperature 97.3 97.3 [facility] Respiratory Effort 1 1 [facility] Respiratory Rate 18 18 [facility] Pulse Assessment Method 4 4 [facility] Pulse Rate 106 106 [facility] pital Height (Calculated Centimeters) 160.02 160. 02 [facility] Height 63 63 [facility] pital Blood Pressure 128/81 128/81 [facility] Body Mass Index (BMI) 27.0 27.0 [facility] Weight Measurement Method 1 1 [facility] Weight (Calculated Kilograms) 69.22 69.22 [facility] Weight 2441.6 2441.6 [facility] pital Temperature Source 3 3 [facility] Temperature 97.3 97.3 [facility] Respiratory Effort 1 1 [facility] Respiratory Rate 18 18 [facility] Pulse Assessment Method 4 4 [facility] Pulse Rate 106 106 [facility] pital Height (Calculated Centimeters) 160.02 160. 02 [facility] Height 63 63 [facility] pital Blood Pressure 128/81 128/81 [facility] Body Mass Index (BMI) 27.0 27.0 [facility] Weight Measurement Method 1 1 [facility] Weight (Calculated Kilograms) 69.22 69.22 [facility] Weight 2441.6 2441.6 [facility] pital Temperature Source 3 3 [facility] Temperature 97.6 97.6 [facility] spital Respiratory Effort 1 1 [facility] Respiratory Rate 18 18 [facility] Pulse Assessment Method 4 4 [facility] Pulse Rate 106 106 [facility] pital Height (Calculated Centimeters) 160.02 160. 02 [facility] Height 63 63 [facility] pital Blood Pressure 147/97 147/97 [facility] Body Mass Index (BMI) 27.0 27.0 [facility] Weight Measurement Method 1 1 [facility] Weight (Calculated Kilograms) 69.22 69.22 [facility] Weight 2441.6 2441.6 [facility] pital Temperature Source 7 7 [facility] Temperature 98.7 98.7 [facility] spital Respiratory Effort 1 1 [facility] Respiratory Rate 19 19 [facility] Pulse Assessment Method 4 4 [facility] 104 [facility] Height (Calculated Centimeters) 160.02 160. 02 [facility] Height 63 63 [facility] Blood Pressure 138/79 138/79 [facility] Body Mass Index (BMI) 27.0 27.0 [facility] Patient Treatment Plan of Care Planned Activity Planned Date Details Description Data Source (s) Mupirocin 0.02 MG/MG Topical Ointment 05/04/2021 12:00:00 AM EDT eCW1 ([facility]) Mupirocin 0.02 MG/MG Topical Ointment 05/04/2021 12:00:00 AM EDT eCW1 ([facility]) Mupirocin 0.02 MG/MG Topical Ointment 05/04/2021 12:00:00 AM EDT eCW1 ([facility]) Mupirocin 0.02 MG/MG Topical Ointment 05/04/2021 12:00:00 AM EDT eCW1 ([facility]) ferrous gluconate 324 MG Oral Tablet 04/13/2021 12:00:00 AM EDT eCW1 ([facility]) Nicotine 2 MG Chewing Gum 04/13/2021 12:00:00 AM EDT eCW1 ([facility]) ferrous gluconate 324 MG Oral Tablet 04/13/2021 12:00:00 AM EDT eCW1 ([facility]) Nicotine 2 MG Chewing Gum 04/13/2021 12:00:00 AM EDT eCW1 ([facility]) Prolia 60mg/ml 09/01/2020 12:00:00 AM EST eCW1 ([facility]) Prolia 60mg/ml 09/01/2020 12:00:00 AM EST eCW1 ([facility]) Prolia 60mg/ml 09/01/2020 12:00:00 AM EST eCW1 ([facility]) ferrous gluconate 324 MG Oral Tablet 08/31/2020 12:00:00 AM EST eCW1 ([facility]) ferrous gluconate 324 MG Oral Tablet 08/31/2020 12:00:00 AM EST eCW1 ([facility]) ferrous gluconate 324 MG Oral Tablet 08/31/2020 12:00:00 AM EST eCW1 ([facility]) ferrous gluconate 324 MG Oral Tablet 08/31/2020 12:00:00 AM EST eCW1 ([facility]) ferrous gluconate 324 MG Oral Tablet 08/31/2020 12:00:00 AM EST eCW1 ([facility]) Hydrocortisone 25 MG/ML Topical Cream 06/21/2020 12:00:00 AM EDT eCW1 ([facility]) Hydrocortisone 25 MG/ML Topical Cream 06/21/2020 12:00:00 AM EDT eCW1 ([facility]) Hydrocortisone 25 MG/ML Topical Cream 06/21/2020 12:00:00 AM EDT eCW1 ([facility]) Hydrocortisone 25 MG/ML Topical Cream 06/21/2020 12:00:00 AM EDT eCW1 ([facility]) Hydrocortisone 25 MG/ML Topical Cream 06/21/2020 12:00:00 AM EDT eCW1 ([facility]) Hydrocortisone 25 MG/ML Topical Cream 06/21/2020 12:00:00 AM EDT eCW1 ([facility]) Hydrocortisone 25 MG/ML Topical Cream 06/21/2020 12:00:00 AM EDT eCW1 ([facility]) Hydrocortisone 25 MG/ML Topical Cream 06/21/2020 12:00:00 AM EDT eCW1 ([facility]) Hydrocortisone 25 MG/ML Topical Cream 06/21/2020 12:00:00 AM EDT eCW1 ([facility]) Hydrocortisone (Perianal) 1 % 05/18/2020 01:00:00 AM EDT [facility] ([facility]) Cranberry Ultra Strength 250-60 MG 05/18/2020 01:00:00 AM EDT [facility] ([facility]) Vagisil Maximum Strength 20-3 % 05/18/2020 01:00:00 AM EDT [facility] ([facility]) Atorvastatin Calcium 80 MG 05/15/2020 01:00:00 AM EDT [facility] ([facility]) Citalopram Hydrobromide 20 MG 05/15/2020 01:00:00 AM EDT [facility] ([facility]) Eliquis 2.5 MG 05/15/2020 01:00:00 AM EDT [facility] ([facility]) Pantoprazole Sodium 40 MG 05/15/2020 01:00:00 AM EDT [facility] ([facility]) Sucralfate 1 GM 05/15/2020 01:00:00 AM EDT [facility] ([facility]) Vitamin D3 1000 UNIT 05/15/2020 01:00:00 AM EDT [facility] ([facility]) Calcium 600+D3 600-800 MG-UNIT 05/15/2020 01:00:00 AM EDT [facility] ([facility]) C-1000 1000 MG 05/15/2020 01:00:00 AM EDT [facility] ([facility]) Benadryl Allergy 25 MG 05/15/2020 01:00:00 AM EDT [facility] ([facility]) Aleve 220 MG 05/15/2020 01:00:00 AM EDT N [facility] ([facility]) Ibuprofen 200 MG 05/15/2020 01:00:00 AM EDT [facility] ([facility]) Stress B Complex/Iron 05/15/2020 01:00:00 AM EDT [facility] ([facility]) Melatonin 10 MG 05/15/2020 01:00:00 AM EDT [facility] ([facility]) Tums Extra Strength 750 750 MG 05/15/2020 01:00:00 AM EDT [facility] ([facility]) Neosporin Original 05/15/2020 01:00:00 AM EDT [facility])
[2021-06-24 08:39] LABS: BASO # 0.1 10^3/uL (0.0-0.2); BASO % 0.3 % (0.0-1.0); EOS # 0.2 10^3/uL (0.0-0.5); EOS % 1.1 % (0.0-3.0); HEMATOCRIT 33.1 % (36.0-47.0); HEMOGLOBIN 11.4 g/dl (12.0-15.5); LYMPH # 1.7 10^3/uL (1.5-5.0); LYMPH % 9.5 % (24.0-44.0); MEAN CORPUSCULAR HEMOGLOBIN 32.9 pg (27.0-33.0); MEAN CORPUSCULAR HGB CONC 34.4 g/dl (32.0-36.5); MEAN CORPUSCULAR VOLUME 95.4 fl (80.0-96.0); MONO # 1.6 10^3/uL (0.0-0.8); NEUTROPHILS # 14.3 10^3/uL (1.5-8.5); NEUTROPHILS % 79.4 % (36.0-66.0); PLATELET COUNT, AUTOMATED 465 10^3/uL (150-450); RED BLOOD COUNT 3.47 10^6/uL (4.00-5.40)
--- OUTSIDE RECORDS SUMMARY | 2021-06-24 08:50 | CCD ---
Author Author [facility] Organization [facility] Address Unknown Phone Unavailable Care Team Providers Care Ultrasound Technologist Sonographer Name Role Phone Primo Hdz NP Unavailable [...] Unavailable PorRafat pantoja MD Unavailable Unavailable Rafat Shteh MD Unavailable Unavailable MARSHA, Heidi SAUER MD [...] Shahzad MATAMOROS Unavailable Unavailable LANDSBERG, M Shahzad AMTAMOROS Unavailable Unavailable GOSHOW, J CHELO PA Unavailable [...] is protected by Article 27-F of the [facility] Public Health law. If you continue you may have access to information: Regarding HIV / AIDS; Provided by facilities licensed or operated by the [facility] Office of Mental Health; or Provided by the [facility] Office for People With Developmental Disabilities. If such information is present, then the following [facility] mandated warning applies: This information has [...] law may result in a fine or correction sentence or both. A general authorization for the release of medical or other information is NOT sufficient authorization for further disc losure. Allergies and Adverse Reactions Type Description Substance Reaction Status Data Source(s ) Propensity to adverse reactions to substance prazosin Prazosin 2 MG Oral Capsule dizziness Active [facility] ([facility]) No Known Drug Allergies No Known Drug Allergies No Known Drug Aller gies active [facility] ([facility] ) Family History Family Member Name Family Member Gender Family Member Status Date o f Status Description Data Source(s) Unknown Female Problem [facility] ([facility]) Encounters Encounter Providers Location Date Indications Data Source(s ) Outpatient Attender: Solomon Hdz NP [facility] 06/20/2021 10:30:00 AM EDT - 06/20/2021 10:30:00 AM EDT [facility] Attender: Solomon Hdz NP 06/20/2021 12:00:00 AM EDT [facility] ([facility]) [place] [address] [address] 06/11/2021 12:00:00 AM EDT eCW1 ([facility]) [place] [address] [facility] [place] [address] 06/08/2021 12:00:00 AM EDT [facility] [place] [address] [facility] [place] [address] 06/06/2021 12:00:00 AM EDT [facility]CW1 ([facility] [place] [address] [facility] [place] [address] 05/21/2021 12:00:00 AM EDT eCW1 ([facility]) [place] [address] [facility] [place] [address] 05/14/2021 12:00:00 AM EDT eCW1 ([facility]) [place] [address] [facility] [place] [address] 2021 12:00:00 AM EDT [facility] [place] [address] [facility] [facility] [address] 05/08/2021 12:00:00 AM EDT [facility]CW1 ([facility]) [place] [address] [facility] [facility] [address] 05/04/2021 12:00:00 AM EDT [facility] [place] [address] [facility] [facility] [address] 05/04/2021 12:00:00 AM EDT [facility]CW1 ([facility]) [place] [address] [facility] [facility] [address] 04/20/2021 12:00:00 AM EDT eCW1 ([facility]) [place] [address] [facility] [facility] [address] 04/13/2021 12:00:00 AM EDT eCW1 ([facility]) Extended Individual Psychotherapy - 45 min Attender: Atilio Leone [facility] 04/05/2021 10:00:00 AM EDT - 04/05/2021 10:00:00 AM EDT [facility] ([facility]) Attender: Jessica Leone 04/05/2021 12:00:00 A M EDT [facility] ([facility]) [place] [address] [facility] [facility] [address] 03/14/2021 12:00:00 AM EDT [facility]CW[facility] [place] [address] [facility] [facility] [address] 03/13/2021 12:00:00 AM EDT [facility]CW1 ([facility] [place] [address] [facility] [facility] [address] 03/13/2021 12:00:00 AM EDT [facility] [place] [address] [facility] [facility] [address] 03/08/2021 12:00:00 AM EDT [facility] Attender: Solomon Hdz NP [facility] 03/07/2021 10:30:00 AM EDT - 03/07/2021 10:30:00 AM EDT [facility] ([facility]) Attender: Solomon Hdz NP 03/07/2021 12:00:00 AM EDT [facility] ([facility]) Outpatient Attender: Solomon Hdz NP [facility] 01/16/2021 01:30:00 AM EDT - 01/16/2021 01:30:00 AM EDT [facility] ([facility]) Attender: Solomon Hdz NP 01/16/2021 12:00:00 AM EDT [facility] ([facility]) Extended Individual Psychotherapy - 45 min Attender: Atilio Hammondcarlos [facility] 01/09/2021 09:00:00 AM EDT - 01/09/2021 09:00:00 AM EDT [facility] ([facility]) Attender: Jessica Leone 01/09/2021 12:00:00 A M EDT [facility] ([facility]) [place] [address] [facility] [facility] [address] 01/01/2021 12:00:00 AM EDT eCW1 ([facility]) Extended Individual Psychotherapy - 45 min Attender: Atilio Hammondcarlos [facility] 12/26/2020 09:00:00 AM EDT - 12/26/2020 09:00:00 AM EDT [facility] ([facility]) Attender: Jessica Leone 12/26/2020 12:00:00 A M EDT [facility] ([facility]) [place] [address] [facility] [address] 12/21/2020 12:00:00 AM EDT eCW1 ([facility]) Outpatient Attender: Solomon Hdz NP [facility] 12/19/2020 01:00:00 AM EDT - 12/19/2020 01:00:00 AM EDT [facility] ([facility]) Attender: Solomon Hdz NP 12/19/2020 12:00:00 AM EDT [facility] ([facility]) [place] [address] [facility] [facility] [address] 12/15/2020 12:00:00 AM EDT eCW1 ([facility]) Brief Individual Psychotherapy - 30 min Attender: Jessica wall [facility] 12/12/2020 12:45:00 PM EDT - 12/12/2020 12:45:00 PM EDT [facility] ([facility]) Attender: Jessica Leone 12/12/2020 12:00:00 A M EDT [facility] ([facility]) [place] [address] [facility] [facility] [address] 12/08/2020 12:00:00 AM EDT eCW1 ([facility]) Outpatient Attender: UNKNOWN CPSCAORT-LABEJN 12/06/2020 09:42:00 AM E [facility] Inpatient Attender: Rafat Sheth MDAdmitter: Rafat dewitt MD ED-MSP 12/05/2020 07:41:00 PM EDT - 12/08/2020 09:25:00 AM EDT F10.20 [facility] F10.20 Patient discharged. [place] [address] [facility] [address] 12/05/2020 12:00:00 AM EDT eCW1 ([facility]) Outpatient Attender: Solomon Hdz NP [facility] 11/21/2020 01:00:00 AM EDT - 11/21/2020 01:00:00 AM EDT [facility] ([facility]) Outpatient Attender: Solomon Hdz NP [facility] 11/21/2020 01:00:00 AM EDT - 11/21/2020 01:00:00 AM EDT [facility] ([facility]) Attender: Solomon Hdz NP 11/21/2020 12:00:00 AM EDT [facility] ([facility]) Extended Individual Psych[facility] - 45 min [facility] 09:00:00 AM EDT - 11/14/2020 09:00:00 AM EDT [facility] ([facility]) Attender: Jessica Leone 11/14/2020 12:00:00 A M EDT [facility] ([facility]) Extended Individual Psychotherapy - 45 min Attender: Atilio Leone [facility] 10/19/2020 08:45:00 AM EST - 10/19/2020 08:45:00 AM EST [facility] ([facility]) Attender: Jessica Leone 10/19/2020 12:00:00 A M EST [facility] ([facility]) Outpatient Attender: Solomon Hdz NP [facility] 10/17/2020 01:00:00 AM EST - 10/17/2020 01:00:00 AM EST [facility] ([facility]) Attender: Solomon Hdz NP 10/17/2020 12:00:00 AM EST [facility] ([facility]) [place] [address] [facility] [address] 10/11/2020 12:00:00 AM EST eCW1 ([facility]) [place] [address] [facility] [facility] [address] 10/02/2020 12:00:00 AM EST eCW1 ([facility]) Attender: Jessica Leone 09/27/2020 12:00:00 A M EST [facility] ([facility]) TEMPMHCTelemed 30" Psychotherapy Attender: Jessica Leone [facility] 09/26/2020 09:00:00 AM EST - 09/26/2020 09:00:00 AM EST [facility] ([facility]) [place] [address] [facility] [address] 09/14/2020 12:00:00 AM EST [facility] [place] [address] [facility] [facility] [address] 09/11/2020 12:00:00 AM EST [facility]CW1 [facility] Outpatient Attender: Solomon Hdz NP [facility] 09/05/2020 12:30:00 PM EST - 09/05/2020 12:30:00 PM EST [facility] ([facility]) Attender: Solomon Hdz NP 09/05/2020 12:00:00 AM EST [facility] ([facility]) [place] [address] [facility] [facility] [address] 08/31/2020 12:00:00 AM EST [facility]CW[facility] [place] [address] [facility] [facility] [address] 08/30/2020 12:00:00 AM EST [facility]CW1 [facility] [place] [address] [facility] [facility] [address] 08/30/2020 12:00:00 AM EST eCW1 ([facility]) Extended Individual Psychotherapy - 45 min Attender: Atilio Leone [facility] 08/22/2020 09:00:00 AM EST - 08/22/2020 09:00:00 AM EST [facility] ([facility]) Attender: Jessica Leone 08/22/2020 12:00:00 A M EST [facility] ([facility]) [place] [address] [facility] [facility] [address] 08/21/2020 12:00:00 AM EST eCW1 ([facility]) Outpatient Attender: Solomon Hdz NP [facility] 07/28/2020 11:30:00 AM EST - 07/28/2020 11:30:00 AM EST [facility] ([facility]) Attender: Solomon Hdz NP 07/28/2020 12:00:00 AM EST [facility] ([facility]) Extended Individual Psychotherapy - 45 min Attender: Atilio Hammondchandra [facility] 07/25/2020 09:00:00 AM EST - 07/25/2020 09:00:00 AM EST [facility] ([facility]) Attender: Jessica Leone 07/25/2020 12:00:00 A M EST [facility] ([facility]) [place] [address] [facility] [facility] [address] 07/11/2020 12:00:00 AM EST eCW1 ([facility]) Extended Individual Psychotherapy - 45 min Attender: Atilio Hammondsandracarlos [facility] 07/04/2020 09:00:00 AM EST - 07/04/2020 09:00:00 AM EST [facility] ([facility]) Attender: Jessica Leone 07/04/2020 12:00:00 A M EST [facility] ([facility]) [place] [address] [facility] [address] 06/21/2020 12:00:00 AM EDT eCW1 ([facility]) Extended Individual Psychotherapy - 45 min Attender: Atilio Hammondsandracarlos [facility] 06/20/2020 09:00:00 AM EDT - 06/20/2020 09:00:00 AM EDT [facility] ([facility]) Attender: Jessica Leone 06/20/2020 12:00:00 A M EDT [facility] ([facility]) Extended Individual Psychotherapy - 45 min Attender: Atilio Hammondsandracarlos [facility] 06/06/2020 12:00:00 PM EDT - 06/06/2020 12:00:00 PM EDT [facility] ([facility]) Attender: Jessica Leone 06/06/2020 12:00:00 A M EDT [facility] ([facility]) [place] [address] [facility] [facility] [address] 05/24/2020 12:00:00 AM EDT eCW1 ([facility]) 05/15/2020 01:00:00 AM EDT - 020 10:42:46 AM EDT NETSMART ([facility]) [id number]"Psychotherapy [facility] 04/26/2020 09:45:00 AM EDT - 04/26/2020 09:45:00 AM EDT [facility] ([facility]) [facility] MDAttender: Shahzad TAVARES MDAttender: ER PHYSICIAN 04/26/2020 12:50:00 AM EDT [facility] ( in Healthcare facility) Attender: MONALISA BERG MDAttender: Shahzad TAVARES MDAdmitter: Shahzad TAVARES MDConsultant: Rajesh Goddard 04/26/2020 12:50:00 AM EDT [facility] Attender: Jessica Leone 04/26/2020 12:00:00 A M EDT [facility] ([facility]) Inpatient Att[facility]: [facility] MDAttender: CHELO OCONNOR PAAttender: ER PHYSICIANAdmitter: CHELO KEMP 0 04/25/2020 10:57:28 PM EDT Lab [facility] Inpatient Att[facility]: [facility] MDAttender: Shahzad TAVARES MDAttender: ER PHYSICIANAdmitter: Shahzad TAVARES MD 0 04/25/2020 10:15:00 PM EDT - 05/12/2020 06:21:00 PM EDT GI BLEEDING [facility] GI BLEEDING Patient discharged. Outpatient 04/25/2020 06:20:00 PM EDT GI bleed [facility] GI bleed Inpatient Attender: CRISTIANE LARSON MDAdmitter: CRISTIANE LARSON MD ED-MSP 09/13/2019 11:30:00 AM EST - 09/17/2019 09:15:00 AM EST F1020 [facility] F1020 Patient discharged. Functional Status Immunizations Vaccine Date Status Description Data Source(s) 03/14/2021 12:33:00 PM EDT completed e CW1 ([facility]) 03/14/2021 12:33:00 PM EDT completed e CW1 ([facility]) 03/14/2021 12:33:00 PM EDT completed e CW1 ([facility]) 03/14/2021 12:33:00 PM EDT completed e CW1 ([facility]) 03/14/2021 12:33:00 PM EDT completed e CW1 ([facility]) 03/14/2021 12:33:00 PM EDT completed e CW1 ([facility]) 03/14/2021 12:33:00 PM EDT completed e CW1 ([facility]) 03/14/2021 12:33:00 PM EDT completed e CW1 ([facility]) 03/14/2021 12:33:00 PM EDT completed e CW1 ([facility]) 03/14/2021 12:33:00 PM EDT completed e CW1 ([facility]) 03/14/2021 12:33:00 PM EDT completed e CW1 ([facility]) 03/14/2021 12:33:00 PM EDT completed e CW1 ([facility]) COVID-19 VACCINE Moderna 11/24/2020 12:00:00 AM EDT completed [facility]IS Vaccine Series Complete: YESThis Data wa s Submitted to [facility] Via [employer]. COVID-19 VACCINE Moderna 10/27/2020 12:00:00 AM EST completed [facility]IS Vaccine Series Complete: NOThis Data was Submitted to [facility] Via [employer]. Medications Medication Brand Name Start Date Product [...] EDT active Mupiroci n 2 % eCW1 ([facility]) Mupirocin 0.02 MG/MG Topical Ointment Mupirocin 2 % Mupiroci n 2 % 05/04/2021 12:00:00 AM EDT suspended Mupir ocin 2 % eCW1 ([facility]) 2 % 05/04/2021 12:00:00 AM EDT ointment [...] EDT suspended Mupir ocin 2 % eCW1 ([facility]) Mupirocin 0.02 MG/MG Topical Ointment Mupirocin 2 % Mupiroci n 2 % 05/04/2021 12:00:00 AM EDT active Mupiroci n 2 % eCW1 ([facility]) Mupirocin 0.02 MG/MG Topical Ointment Mupirocin 2 % Mupiroci n 2 % 05/04/2021 12:00:00 AM EDT suspended Mupir ocin 2 % eCW1 ([facility]) Mupirocin 0.02 MG/MG Topical Ointment Mupirocin 2 % Mupiroci n 2 % 05/04/2021 12:00:00 AM EDT active Mupiroci n 2 % eCW1 ([facility]) Mupirocin 0.02 MG/MG Topical Ointment Mupirocin 2 % Mupiroci n 2 % 05/04/2021 12:00:00 AM EDT active Mupiroci n 2 % eCW1 ([facility]) Mupirocin 0.02 MG/MG Topical Ointment Mupirocin 2 % Mupiroci n 2 % 05/04/2021 12:00:00 AM EDT active Mupiroci n 2 % eCW1 ([facility]) Mupirocin 0.02 MG/MG Topical Ointment Mupirocin 2 % Mupiroci n 2 % 05/04/2021 12:00:00 AM EDT active Mupiroci n 2 % eCW1 ([facility]) buspirone hydrochloride 10 MG Oral Tablet BUSPIRONE [...] active [facility] Marco jennifer 2 MG eCW1 ([facility]) Nicotine 2 MG Chewing Gum [facility] Nicotine 2 MG [facility] Nicotine 2 M G 04/13/2021 12:00:00 AM EDT suspended [facility] N icotine 2 MG eCW1 ([facility]) Nicotine 2 MG Chewing Gum [facility] Nicotine 2 MG [facility] Nicotine 2 M G 04/13/2021 12:00:00 AM EDT active [facility] Marco jennifer 2 MG eCW1 ([facility]) 2 mg 04/13/2021 12:00:00 AM EDT gum [...] suspended [facility] N icotine 2 MG eCW1 ([facility]) Nicotine 2 MG Chewing Gum [facility] Nicotine 2 MG [facility] Nicotine 2 M G 04/13/2021 12:00:00 AM EDT active [facility] Marco jennifer 2 MG eCW1 ([facility]) Nicotine 2 MG Chewing Gum [facility] Nicotine 2 MG [facility] Nicotine 2 M G 04/13/2021 12:00:00 AM EDT active [facility] Marco jennifer 2 MG eCW1 ([facility]) Nicotine 2 MG Chewing Gum [facility] Nicotine 2 MG [facility] Nicotine 2 M G 04/13/2021 12:00:00 AM EDT suspended [facility] N icotine 2 MG eCW1 ([facility]) ferrous gluconate 324 MG Oral Tablet Ferrous Gluconate 324 (38 Fe) MG Ferrous Gluconate 324 (38 Fe) MG 04/13/2021 12:00:00 AM EDT active Ferrous Gluconate 324 (38 Fe) MG eCW1 ([facility]) Nicotine 2 MG Chewing Gum [facility] Nicotine 2 MG [facility] Nicotine 2 M G 04/13/2021 12:00:00 AM EDT active [facility] Marco jennifer 2 MG eCW1 ([facility]) 324 mg (38 mg iron) 04/13/2021 12:00:00 [...] suspended [facility] N icotine 2 MG eCW1 ([facility]) Nicotine 2 MG Chewing Gum [facility] Nicotine 2 MG [facility] Nicotine 2 M G 04/13/2021 12:00:00 AM EDT suspended [facility] N icotine 2 MG eCW1 ([facility]) Nicotine 2 MG Chewing Gum [facility] Nicotine 2 MG [facility] Nicotine 2 M G 04/13/2021 12:00:00 AM EDT active [facility] Marco jennifer 2 MG eCW1 ([facility]) ferrous gluconate 324 MG Oral Tablet Ferrous Gluconate 324 (38 Fe) MG Ferrous Gluconate 324 (38 Fe) MG 04/13/2021 12:00:00 AM EDT active Ferrous Gluconate 324 (38 Fe) MG eCW1 ([facility]) 80 mg 03/21/2021 12:00:00 AM EDT tablet [...] 1 mg by mouth completed <td ID="Medicat ionRxNorm_4">839535</td><td ID="MedicationMedication_4">prazosin</td><td ID="MedicationRoute_4">by mouth</td><td ID="MedicationRouteConcept_4">Z19282</td><td ID="MedicationStartDate_4">01/16/2021</td><td ID="MedicationStopDate_4">04/16/2021</td><td ID="MedicationDosageFrequency_4">at bedtime</td><td ID="MedicationDuration_4">30</td><td ID="MedicationFormulaStrength_4">1 mg</td><td ID="MedicationDosageForm_4">capsule</td><td ID="MedicationDosageFormCode_4"></td><td ID="MedicationDosageDescription_4"></td><td ID="MedicationMedicationId_4">[id number]</td><td ID="MedicationAccount_4">[id number]</td><td ID="MedicationNpid_4">[id number]</td><td ID="MedicationAuthorFirstName_4">Solomon</td><td ID="MedicationAuthorLastName_4">Hdz</td><td ID="MedicationTaxonomyCode_4">[id number]</td><td ID="MedicationTaxonomyDesc_4">Nurse Practitioner</td><td ID="MedicationPhoneNumber_4">[phone]</td> [facility] 15 mg 01/08/2021 12:00:00 AM EDT tablet [...] ID="MedicationDosageFrequency_2"></td><td ID="MedicationDuration_2">30</td><td ID="MedicationFormulaStrength_2">20 mg</td><td ID="MedicationDosageForm_2">tablet</td><td ID="MedicationDosageFormCode_2"></td><td ID="MedicationDosageDescription_2"></td><td ID="MedicationMedicationId_2">[id number]</td><td ID="MedicationAccount_2">[id number]</td><td ID="MedicationNpid_2">[id number]</td><td ID="MedicationAuthorFirstName_2">Solomon</td><td ID="MedicationAuthorLastName_2">Hdz</td><td ID="MedicationTaxonomyCode_2">[id number]</td><td ID="MedicationTaxonomyDesc_2">Nurse Practitioner</td><td ID="MedicationPhoneNumber_2">[phone]</td> [facility] ([facility]) Citalopram 20 MG Oral Tablet citalopram 10/03/2020 12:00:00 AM EST 20 mg by mouth completed <td ID="Medica tionRxNorm_2">103887</td><td ID="MedicationMedication_2">citalopram</td><td ID="MedicationRoute_2">by mouth</td><td ID="MedicationRouteConcept_2">Y11262</td><td ID="MedicationStartDate_2">10/03/2020</td><td ID="MedicationStopDate_2">07/17/2021</td><td ID="MedicationDosageFrequency_2">once a day</td><td ID="MedicationDuration_2">30</td><td ID="MedicationFormulaStrength_2">20 mg</td><td ID="MedicationDosageForm_2">tablet</td><td ID="MedicationDosageFormCode_2"></td><td ID="MedicationDosageDescription_2"></td><td ID="MedicationMedicationId_2">[id number]</td><td ID="MedicationAccount_2">[id number]</td><td ID="MedicationNpid_2">[id number]</td><td ID="MedicationAuthorFirstName_2">Solomon</td><td ID="MedicationAuthorLastName_2">Hdz</td><td ID="MedicationTaxonomyCode_2">[id number]</td><td ID="MedicationTaxonomyDesc_2">Nurse Practitioner</td><td ID="MedicationPhoneNumber_2">[phone]</td> [facility] ([facility]) buspirone hydrochloride 10 MG Oral Tablet buspirone 2020 12:00:00 AM EST 10 mg completed <td ID="Medica tionRxNorm_3">931733</td><td ID="MedicationMedication_3">buspirone</td><td ID="MedicationRoute_3"></td><td ID="MedicationRouteConcept_3"></td><td ID="MedicationStartDate_3">10/03/2020</td><td ID="MedicationStopDate_3">07/17/2021</td><td ID="MedicationDosageFrequency_3"></td><td ID="MedicationDuration_3">30</td><td ID="MedicationFormulaStrength_3">10 mg</td><td ID="MedicationDosageForm_3">tablet</td><td ID="MedicationDosageFormCode_3"></td><td ID="MedicationDosageDescription_3"></td><td ID="MedicationMedicationId_3">[id number]</td><td ID="MedicationAccount_3">[id number]</td><td ID="MedicationNpid_3">[id number]</td><td ID="MedicationAuthorFirstName_3">Solomon</td><td ID="MedicationAuthorLastName_3">Hdz</td><td ID="MedicationTaxonomyCode_3">[id number]</td><td ID="MedicationTaxonomyDesc_3">Nurse Practitioner</td><td ID="MedicationPhoneNumber_3">[phone]</td> [facility] ([facility]) Mirtazapine 15 MG Oral Tablet mirtazapine 10/03/2020 12:00:00 AM EST 15 mg completed <td ID="Medicat ionRxNorm_1">673133</td><td ID="MedicationMedication_1">mirtazapine</td><td ID="MedicationRoute_1"></td><td ID="MedicationRouteConcept_1"></td><td ID="MedicationStartDate_1">10/03/2020</td><td ID="MedicationStopDate_1">07/17/2021</td><td ID="MedicationDosageFrequency_1"></td><td ID="MedicationDuration_1">30</td><td ID="MedicationFormulaStrength_1">15 mg</td><td ID="MedicationDosageForm_1">tablet</td><td ID="MedicationDosageFormCode_1"></td><td ID="MedicationDosageDescription_1"></td><td ID="MedicationMedicationId_1">[id number]</td><td ID="MedicationAccount_1">[id number]</td><td ID="MedicationNpid_1">[id number]</td><td ID="MedicationAuthorFirstName_1">Solomon</td><td ID="MedicationAuthorLastName_1">Hdz</td><td ID="MedicationTaxonomyCode_1">[id number]</td><td ID="MedicationTaxonomyDesc_1">Nurse Practitioner</td><td ID="MedicationPhoneNumber_1">[phone]</td> [facility] ([facility]) 80 mg 09/06/2020 12:00:00 AM EST tablet [...] 12:00:00 AM EST active Prolia 60mg/ml eCW1 ([facility]) Prolia 60mg/ml K 09/01/2020 12:00:00 AM EST active Prolia 60mg/ml eCW1 ([facility]) Prolia 60mg/ml UNK 09/01/2020 12:00:00 AM EST active Prolia 60mg/ml eCW1 ([facility]) Prolia 60mg/ml K 09/01/2020 12:00:00 AM EST active Prolia 60mg/ml eCW1 ([facility]) Prolia 60mg/ml K 09/01/2020 12:00:00 AM EST active Prolia 60mg/ml eCW1 ([facility]) Prolia 60mg/ml UNK 09/01/2020 12:00:00 AM EST active Prolia 60mg/ml eCW1 ([facility]) Prolia 60mg/ml UNK 09/01/2020 12:00:00 AM EST active Prolia 60mg/ml eCW1 ([facility]) Prolia 60mg/ml UNK 09/01/2020 12:00:00 AM EST active Prolia 60mg/ml eCW1 ([facility]) Prolia 60mg/ml UNK 09/01/2020 12:00:00 AM EST active Prolia 60mg/ml eCW1 ([facility]) Prolia 60mg/ml UNK 09/01/2020 12:00:00 AM EST active Prolia 60mg/ml eCW1 ([facility]) Prolia 60mg/ml UNK 09/01/2020 12:00:00 AM EST active Prolia 60mg/ml eCW1 ([facility]) Prolia 60mg/ml UNK 09/01/2020 12:00:00 AM EST active Prolia 60mg/ml eCW1 ([facility]) Prolia 60mg/ml UNK 09/01/2020 12:00:00 AM EST active Prolia 60mg/ml eCW1 ([facility]) Prolia 60mg/ml UNK 09/01/2020 12:00:00 AM EST active Prolia 60mg/ml eCW1 ([facility]) Prolia 60mg/ml UNK 09/01/2020 12:00:00 AM EST active Prolia 60mg/ml eCW1 ([facility]) Prolia 60mg/ml UNK 09/01/2020 12:00:00 AM EST active Prolia 60mg/ml eCW1 ([facility]) Prolia 60mg/ml K 09/01/2020 12:00:00 AM EST active Prolia 60mg/ml eCW1 ([facility]) Prolia 60mg/ml UNK 09/01/2020 12:00:00 AM EST active Prolia 60mg/ml eCW1 ([facility]) Prolia 60mg/ml UNK 09/01/2020 12:00:00 AM EST active Prolia 60mg/ml eCW1 ([facility]) 2.5 % 09/01/2020 12:00:00 AM EST cream with perineal carmen licator 28 APPLY 1 APPLICATION EXTERNALLY TO AFFECTED AREA(S) TWICE A DAY NEEDED FOR 7 DAYS APPLY 1 APPLICATION EXTERNALLY TO AFFECTED AREA(S) TWICE A DAY NEEDED FOR 7 DAYS SOLD: 09/06/2020 [facility] Prolia 60mg/ml K 09/01/2020 12:00:00 AM EST active Prolia 60mg/ml eCW1 ([facility]) Prolia 60mg/ml UNK 09/01/2020 12:00:00 AM EST active Prolia 60mg/ml eCW1 ([facility]) Prolia 60mg/ml UNK 09/01/2020 12:00:00 AM EST active Prolia 60mg/ml eCW1 ([facility]) Prolia 60mg/ml UNK 09/01/2020 12:00:00 AM EST active Prolia 60mg/ml eCW1 ([facility]) Prolia 60mg/ml UNK 09/01/2020 12:00:00 AM EST active Prolia 60mg/ml eCW1 ([facility]) Prolia 60mg/ml UNK 09/01/2020 12:00:00 AM EST active Prolia 60mg/ml eCW1 ([facility]) ferrous gluconate 324 MG Oral Tablet Ferrous Gluconate 324 (38 Fe) MG Ferrous Gluconate 324 (38 Fe) MG 08/31/2020 12:00:00 AM EST active Ferrous Gluconate 324 (38 Fe) MG eCW1 ([facility]) ferrous gluconate 324 MG Oral Tablet Ferrous Gluconate 324 (38 Fe) MG Ferrous Gluconate 324 (38 Fe) MG 08/31/2020 12:00:00 AM EST active Ferrous Gluconate 324 (38 Fe) MG eCW1 ([facility]) ferrous gluconate 324 MG Oral Tablet Ferrous Gluconate 324 (38 Fe) MG Ferrous Gluconate 324 (38 Fe) MG 08/31/2020 12:00:00 AM EST active Ferrous Gluconate 324 (38 Fe) MG eCW1 ([facility]) ferrous gluconate 324 MG Oral Tablet Ferrous Gluconate 324 (38 Fe) MG Ferrous Gluconate 324 (38 Fe) MG 08/31/2020 12:00:00 AM EST active Ferrous Gluconate 324 (38 Fe) MG eCW1 ([facility]) ferrous gluconate 324 MG Oral Tablet Ferrous Gluconate 324 (38 Fe) MG Ferrous Gluconate 324 (38 Fe) MG 08/31/2020 12:00:00 AM EST active Ferrous Gluconate 324 (38 Fe) MG eCW1 ([facility]) ferrous gluconate 324 MG Oral Tablet Ferrous Gluconate 324 (38 Fe) MG Ferrous Gluconate 324 (38 Fe) MG 08/31/2020 12:00:00 AM EST active Ferrous Gluconate 324 (38 Fe) MG eCW1 ([facility]) ferrous gluconate 324 MG Oral Tablet Ferrous Gluconate 324 (38 Fe) MG Ferrous Gluconate 324 (38 Fe) MG 08/31/2020 12:00:00 AM EST active Ferrous Gluconate 324 (38 Fe) MG eCW1 ([facility]) ferrous gluconate 324 MG Oral Tablet Ferrous Gluconate 324 (38 Fe) MG Ferrous Gluconate 324 (38 Fe) MG 08/31/2020 12:00:00 AM EST active Ferrous Gluconate 324 (38 Fe) MG eCW1 ([facility]) ferrous gluconate 324 MG Oral Tablet Ferrous Gluconate 324 (38 Fe) MG Ferrous Gluconate 324 (38 Fe) MG 08/31/2020 12:00:00 AM EST active Ferrous Gluconate 324 (38 Fe) MG eCW1 ([facility]) ferrous gluconate 324 MG Oral Tablet Ferrous Gluconate 324 (38 Fe) MG Ferrous Gluconate 324 (38 Fe) MG 08/31/2020 12:00:00 AM EST active Ferrous Gluconate 324 (38 Fe) MG W1 ([facility]) ferrous gluconate 324 MG Oral Tablet Ferrous Gluconate 324 (38 Fe) MG Ferrous Gluconate 324 (38 Fe) MG 08/31/2020 12:00:00 AM EST active Ferrous Gluconate 324 (38 Fe) MG eCW1 ([facility]) ferrous gluconate 324 MG Oral Tablet Ferrous Gluconate 324 (38 Fe) MG Ferrous Gluconate 324 (38 Fe) MG 08/31/2020 12:00:00 AM EST active Ferrous Gluconate 324 (38 Fe) MG eCW1 ([facility]) ferrous gluconate 324 MG Oral Tablet Ferrous Gluconate 324 (38 Fe) MG Ferrous Gluconate 324 (38 Fe) MG 08/31/2020 12:00:00 AM EST active Ferrous Gluconate 324 (38 Fe) MG eCW1 ([facility]) ferrous gluconate 324 MG Oral Tablet Ferrous Gluconate 324 (38 Fe) MG Ferrous Gluconate 324 (38 Fe) MG 08/31/2020 12:00:00 AM EST active Ferrous Gluconate 324 (38 Fe) MG eCW1 ([facility]) ferrous gluconate 324 MG Oral Tablet Ferrous Gluconate 324 (38 Fe) MG Ferrous Gluconate 324 (38 Fe) MG 08/31/2020 12:00:00 AM EST active Ferrous Gluconate 324 (38 Fe) MG eCW1 ([facility]) ferrous gluconate 324 MG Oral Tablet Ferrous Gluconate 324 (38 Fe) MG Ferrous Gluconate 324 (38 Fe) MG 08/31/2020 12:00:00 AM EST active Ferrous Gluconate 324 (38 Fe) MG eCW1 ([facility]) ferrous gluconate 324 MG Oral Tablet Ferrous Gluconate 324 (38 Fe) MG Ferrous Gluconate 324 (38 Fe) MG 08/31/2020 12:00:00 AM EST active Ferrous Gluconate 324 (38 Fe) MG eCW1 ([facility]) ferrous gluconate 324 MG Oral Tablet Ferrous Gluconate 324 (38 Fe) MG Ferrous Gluconate 324 (38 Fe) MG 08/31/2020 12:00:00 AM EST active Ferrous Gluconate 324 (38 Fe) MG eCW1 ([facility]) ferrous gluconate 324 MG Oral Tablet Ferrous Gluconate 324 (38 Fe) MG Ferrous Gluconate 324 (38 Fe) MG 08/31/2020 12:00:00 AM EST active Ferrous Gluconate 324 (38 Fe) MG eCW1 ([facility]) ferrous gluconate 324 MG Oral Tablet Ferrous Gluconate 324 (38 Fe) MG Ferrous Gluconate 324 (38 Fe) MG 08/31/2020 12:00:00 AM EST active Ferrous Gluconate 324 (38 Fe) MG eCW1 ([facility]) ferrous gluconate 324 MG Oral Tablet Ferrous Gluconate 324 (38 Fe) MG Ferrous Gluconate 324 (38 Fe) MG 08/31/2020 12:00:00 AM EST active Ferrous Gluconate 324 (38 Fe) MG eCW1 ([facility]) ferrous gluconate 324 MG Oral Tablet Ferrous Gluconate 324 (38 Fe) MG Ferrous Gluconate 324 (38 Fe) MG 08/31/2020 12:00:00 AM EST active Ferrous Gluconate 324 (38 Fe) MG eCW1 ([facility]) 324 mg (38 mg iron) 08/31/2020 12:00:00 [...] Ferrous Gluconate 324 (38 Fe) MG eCW1 ([facility]) ferrous gluconate 324 MG Oral Tablet Ferrous Gluconate 324 (38 Fe) MG Ferrous Gluconate 324 (38 Fe) MG 08/31/2020 12:00:00 AM EST active Ferrous Gluconate 324 (38 Fe) MG eCW1 ([facility]) ferrous gluconate 324 MG Oral Tablet Ferrous Gluconate 324 (38 Fe) MG Ferrous Gluconate 324 (38 Fe) MG 08/31/2020 12:00:00 AM EST active Ferrous Gluconate 324 (38 Fe) MG eCW1 ([facility]) ferrous gluconate 324 MG Oral Tablet Ferrous Gluconate 324 (38 Fe) MG Ferrous Gluconate 324 (38 Fe) MG 08/31/2020 12:00:00 AM EST active Ferrous Gluconate 324 (38 Fe) MG W1 ([facility]) ferrous gluconate 324 MG Oral Tablet Ferrous Gluconate 324 (38 Fe) MG Ferrous Gluconate 324 (38 Fe) MG 08/31/2020 12:00:00 AM EST active Ferrous Gluconate 324 (38 Fe) MG W1 ([facility]) buspirone hydrochloride 10 MG Oral Tablet BUSPIRONE [...] 7.5 mg by mouth completed <td ID="Medica tionRxNorm_2">433579</td><td ID="MedicationMedication_2">mirtazapine</td><td ID="MedicationRoute_2">by mouth</td><td ID="MedicationRouteConcept_2">D57689</td><td ID="MedicationStartDate_2">06/30/2020</td><td ID="MedicationStopDate_2">09/28/2020</td><td ID="MedicationDosageFrequency_2">at bedtime</td><td ID="MedicationDuration_2">30</td><td ID="MedicationFormulaStrength_2">7.5 mg</td><td ID="MedicationDosageForm_2">tablet</td><td ID="MedicationDosageFormCode_2"></td><td ID="MedicationDosageDescription_2"></td><td ID="MedicationMedicationId_2">[id number]</td><td ID="MedicationAccount_2">[id number]</td><td ID="MedicationNpid_2">[id number]</td><td ID="MedicationAuthorFirstName_2">Solomon</td><td ID="MedicationAuthorLastName_2">Hdz</td><td ID="MedicationTaxonomyCode_2">[id number]</td><td ID="MedicationTaxonomyDesc_2">Nurse Practitioner</td><td ID="MedicationPhoneNumber_2">[phone]</td> [facility] ([facility]) Citalopram 20 MG Oral Tablet CITALOPRAM HYDROBROMIDE [...] 10 mg by mouth completed <td ID="Medic ationRxNorm_3">033732</td><td ID="MedicationMedication_3">buspirone</td><td ID="MedicationRoute_3">by mouth</td><td ID="MedicationRouteConcept_3">F50100</td><td ID="MedicationStartDate_3">06/30/2020</td><td ID="MedicationStopDate_3">09/28/2020</td><td ID="MedicationDosageFrequency_3">twice a day</td><td ID="MedicationDuration_3">30</td><td ID="MedicationFormulaStrength_3">10 mg</td><td ID="MedicationDosageForm_3">tablet</td><td ID="MedicationDosageFormCode_3"></td><td ID="MedicationDosageDescription_3"></td><td ID="MedicationMedicationId_3">[id number]</td><td ID="MedicationAccount_3">[id number]</td><td ID="MedicationNpid_3">[id number]</td><td ID="MedicationAuthorFirstName_3">Solomon</td><td ID="MedicationAuthorLastName_3">Hdz</td><td ID="MedicationTaxonomyCode_3">[id number]</td><td ID="MedicationTaxonomyDesc_3">Nurse Practitioner</td><td ID="MedicationPhoneNumber_3">[phone]</td> [facility] ([facility]) Citalopram 20 MG Oral Tablet citalopram 06/30/2020 12:00:00 AM EST 20 mg by mouth completed <td ID="Medica tionRxNorm_1">967991</td><td ID="MedicationMedication_1">citalopram</td><td ID="MedicationRoute_1">by mouth</td><td ID="MedicationRouteConcept_1">N38538</td><td ID="MedicationStartDate_1">06/30/2020</td><td ID="MedicationStopDate_1">09/28/2020</td><td ID="MedicationDosageFrequency_1">once a day</td><td ID="MedicationDuration_1">30</td><td ID="MedicationFormulaStrength_1">20 mg</td><td ID="MedicationDosageForm_1">tablet</td><td ID="MedicationDosageFormCode_1"></td><td ID="MedicationDosageDescription_1"></td><td ID="MedicationMedicationId_1">[id number]</td><td ID="MedicationAccount_1">[id number]</td><td ID="MedicationNpid_1">[id number]</td><td ID="MedicationAuthorFirstName_1">Solomon</td><td ID="MedicationAuthorLastName_1">Hdz</td><td ID="MedicationTaxonomyCode_1">[id number]</td><td ID="MedicationTaxonomyDesc_1">Nurse Practitioner</td><td ID="MedicationPhoneNumber_1">[phone]</td> [facility] ([facility]) Hydrocortisone 25 MG/ML Topical Cream Hydrocortisone ( Perianal) 2.5 % Hydrocortisone (Perianal) 2.5 % 06/21/2020 12:00:00 AM EDT 1.0 { application} active Hydrocortisone (Mely anal) 2.5 % eCW1 ([facility]) Hydrocortisone 25 MG/ML Topical Cream Hydrocortisone ( Perianal) 2.5 % Hydrocortisone (Perianal) 2.5 % 06/21/2020 12:00:00 AM EDT 1.0 { application} active Hydrocortisone (Mely anal) 2.5 % eCW1 ([facility]) Hydrocortisone 25 MG/ML Topical Cream Hydrocortisone ( Perianal) 2.5 % Hydrocortisone (Perianal) 2.5 % 06/21/2020 12:00:00 AM EDT 1.0 { application} active Hydrocortisone (Mely anal) 2.5 % eCW1 ([facility]) Hydrocortisone 25 MG/ML Topical Cream Hydrocortisone ( Perianal) 2.5 % Hydrocortisone (Perianal) 2.5 % 06/21/2020 12:00:00 AM EDT 1.0 { application} active Hydrocortisone (Mely anal) 2.5 % eCW1 ([facility]) Hydrocortisone 25 MG/ML Topical Cream Hydrocortisone ( Perianal) 2.5 % Hydrocortisone (Perianal) 2.5 % 06/21/2020 12:00:00 AM EDT 1.0 { application} active Hydrocortisone (Mely anal) 2.5 % eCW1 ([facility]) Hydrocortisone 25 MG/ML Topical Cream Hydrocortisone ( Perianal) 2.5 % Hydrocortisone (Perianal) 2.5 % 06/21/2020 12:00:00 AM EDT 1.0 { application} active Hydrocortisone (Meyl anal) 2.5 % eCW1 ([facility]) Hydrocortisone 25 MG/ML Topical Cream Hydrocortisone ( Perianal) 2.5 % Hydrocortisone (Perianal) 2.5 % 06/21/2020 12:00:00 AM EDT 1.0 { application} active Hydrocortisone (Mely anal) 2.5 % eCW1 ([facility]) Hydrocortisone 25 MG/ML Topical Cream Hydrocortisone ( Perianal) 2.5 % Hydrocortisone (Perianal) 2.5 % 06/21/2020 12:00:00 AM EDT 1.0 { application} active Hydrocortisone (Mely anal) 2.5 % eCW1 ([facility]) 2.5 % 06/21/2020 12:00:00 AM EDT cream [...] active Hydrocortisone (Mely anal) 2.5 % eCW1 ([facility]) Hydrocortisone 25 MG/ML Topical Cream Hydrocortisone ( Perianal) 2.5 % Hydrocortisone (Perianal) 2.5 % 06/21/2020 12:00:00 AM EDT 1.0 { application} active Hydrocortisone (Mely anal) 2.5 % eCW1 ([facility]) Hydrocortisone 25 MG/ML Topical Cream Hydrocortisone ( Perianal) 2.5 % Hydrocortisone (Perianal) 2.5 % 06/21/2020 12:00:00 AM EDT 1.0 { application} active Hydrocortisone (Mely anal) 2.5 % eCW1 ([facility]) Hydrocortisone 25 MG/ML Topical Cream Hydrocortisone ( Perianal) 2.5 % Hydrocortisone (Perianal) 2.5 % 06/21/2020 12:00:00 AM EDT 1.0 { application} active Hydrocortisone (Mely anal) 2.5 % eCW1 ([facility]) Hydrocortisone 25 MG/ML Topical Cream Hydrocortisone ( Perianal) 2.5 % Hydrocortisone (Perianal) 2.5 % 06/21/2020 12:00:00 AM EDT 1.0 { application} active Hydrocortisone (Mely anal) 2.5 % eCW1 ([facility]) Hydrocortisone 25 MG/ML Topical Cream Hydrocortisone ( Perianal) 2.5 % Hydrocortisone (Perianal) 2.5 % 06/21/2020 12:00:00 AM EDT 1.0 { application} active Hydrocortisone (Mely anal) 2.5 % eCW1 ([facility]) Hydrocortisone 25 MG/ML Topical Cream Hydrocortisone ( Perianal) 2.5 % Hydrocortisone (Perianal) 2.5 % 06/21/2020 12:00:00 AM EDT 1.0 { application} active Hydrocortisone (Mely anal) 2.5 % eCW1 ([facility]) Hydrocortisone 25 MG/ML Topical Cream Hydrocortisone ( Perianal) 2.5 % Hydrocortisone (Perianal) 2.5 % 06/21/2020 12:00:00 AM EDT 1.0 { application} active Hydrocortisone (Mely anal) 2.5 % eCW1 ([facility]) Hydrocortisone 25 MG/ML Topical Cream Hydrocortisone ( Perianal) 2.5 % Hydrocortisone (Perianal) 2.5 % 06/21/2020 12:00:00 AM EDT 1.0 { application} active Hydrocortisone (Mely anal) 2.5 % eCW1 ([facility]) Hydrocortisone 25 MG/ML Topical Cream Hydrocortisone ( Perianal) 2.5 % Hydrocortisone (Perianal) 2.5 % 06/21/2020 12:00:00 AM EDT 1.0 { application} active Hydrocortisone (Mely anal) 2.5 % eCW1 ([facility]) Hydrocortisone 25 MG/ML Topical Cream Hydrocortisone ( Perianal) 2.5 % Hydrocortisone (Perianal) 2.5 % 06/21/2020 12:00:00 AM EDT 1.0 { application} active Hydrocortisone (Mely anal) 2.5 % eCW1 ([facility]) Hydrocortisone 25 MG/ML Topical Cream Hydrocortisone ( Perianal) 2.5 % Hydrocortisone (Perianal) 2.5 % 06/21/2020 12:00:00 AM EDT 1.0 { application} active Hydrocortisone (Mely anal) 2.5 % eCW1 ([facility]) Hydrocortisone 25 MG/ML Topical Cream Hydrocortisone ( Perianal) 2.5 % Hydrocortisone (Perianal) 2.5 % 06/21/2020 12:00:00 AM EDT 1.0 { application} active Hydrocortisone (Mely anal) 2.5 % eCW1 ([facility]) Hydrocortisone 25 MG/ML Topical Cream Hydrocortisone ( Perianal) 2.5 % Hydrocortisone (Perianal) 2.5 % 06/21/2020 12:00:00 AM EDT 1.0 { application} active Hydrocortisone (Mely anal) 2.5 % eCW1 ([facility]) Hydrocortisone (Perianal) 1 % Hydrocortisone (Perianal) 04/26 01:00:00 AM EDT completed NETSMAR T ([facility]) Vagisil Maximum Strength 20-3 % Vagisil Maximum Strength 01:00:00 AM EDT completed NETSMAR T ([facility]) Cranberry Ultra Strength 250-60 MG Cranberry Ultra Strength 05/18/2020 01:00:00 AM EDT completed NETSMAR T ([facility]) Calcium 600+D3 600-800 MG-UNIT Calcium 600+D3 05/15/2020 01:00:00 AM E DT completed NETSMART ([facility]) Vitamin D3 1000 UNIT Vitamin D3 05/15/2020 01:00:00 AM EDT completed NETSMART ([facility]) Sucralfate 1 GM Sucralfate 05/15/2020 01:00:00 AM EDT completed NETSMART ([facility]) Ibuprofen 200 MG Ibuprofen 05/15/2020 01:00:00 AM EDT completed NETSMART ([facility]) Aleve 220 MG Aleve 05/15/2020 01:00:00 AM EDT comp leted NETSMART ([facility]) Benadryl Allergy 25 MG Benadryl Allergy 05/15/2020 01:00:00 AM EDT completed NETSMART ([facility]) C-1000 1000 MG C-1000 05/15/2020 01:00:00 AM EDT c ompleted NETSMART ([facility]) Tums Extra Strength 750 750 MG Tums Extra Strength 750 05/15 01:00:00 AM EDT completed NETSMAR T ([facility]) Melatonin 10 MG Melatonin 05/15/2020 01:00:00 AM EDT completed NETSMART ([facility]) Stress B Complex/Iron Stress B Complex/Iron 05/15/2020 01:00:00 AM EDT completed NETSMART ([facility]) Neosporin Original Neosporin Original 05/15/2020 01:00:00 AM EDT completed NETSMART ([facility]) Pantoprazole Sodium 40 MG Pantoprazole Sodium 05/15/2020 01:00:00 AM E DT completed NETSMART ([facility]) Eliquis 2.5 MG Eliquis 05/15/2020 01:00:00 AM EDT 1.0 {tablet} completed NETSMART ([facility]) Citalopram Hydrobromide 20 MG Citalopram Hydrobromide 2019 01:00:00 AM EDT completed NETSMAR T ([facility]) Atorvastatin Calcium 80 MG Atorvastatin Calcium 05/15/2020 01:00:00 A M EDT completed NETSMART ( [facility]) 1 gram 05/13/2020 12:00:00 AM EDT tablet [...] type / Coverage type Policy ID Covered green party ID Covered green party's relationship to nielsen Policy Nielsen Plan Information COUNT INCLUDES THE [facility] COMMUNITY PLAN [facility] [place] [id number] SP [id number] [facility] PLAN [facility] [place] [id number] SP [id number] [facility] PLAN [facility] [place] [id number] SP [id number] MEDICARE [id number] S [id number] [facility] Community Plan Commercial [id number] Self [id number] [facility] Community Plan Commercial [id number] Self [id number] EMEDNY [id number] SP [id number] [facility] [id number] SP [id number] [facility] MEDICARE [id number] S [id number] MEDICAID [id number] MEDICARE JOSHUA [id number] S [id number] [facility] HEA [id number] S [id number] MEDICAID GME [id number] S [id number] [facility] [id number] S 1 [id number] MEDICAID [id number] [facility] COMMUNTY PLAN [id number] 18 [id number] [place] [facility] [id number] [facility] COMMUNITY PLAN [id number] 18 [id number] [facility] Community Plan Commercial [id number] Self 1 [id number] Medicaid [facility] Medicaid [id number] Self [id number] [facility] Communty Plan Medicaid [id number] Self [id number] COUNT INCLUDES THE [facility] COMMUNITY PLAN XIX [id number] 18 [id number] MEDICAID -PHYSICIAN [id number] [facility] COMMUNTY PLAN [id number] 18 [id number] [facility] Community Plan Commercial [id number] Self [id number] Medicaid [facility] Medicaid [id number] Self [id number] [facility] Communty Plan Medicaid [id number] Self [id number] [facility] Community Plan Commercial [id number] Self 1 [id number] [place] [facility] Medicaid [id number] Self [id number] [facility] Communty Plan Medicaid [id number] Self [id number] [facility] [employer] UN MEDICARE O/P [id number] 18 [id number] Medicaid [place] [facility] Medicaid [id number] Self [id number] [facility] Communty Plan Medicaid [id number] Self [id number] [facility] Community Plan Commercial [id number] Self [id number] MEDICAID -O/[id number] EMERGENCY ROOM [id number] 18 [id number] UN COMMUNITY PLAN MCDO [id number] SP [id number] MEDICARE [id number] SP [id number] A [facility] COMMUNITY PLAN [facility] [place] [id number] SP [id number] [facility] Medigap Part B [id number] Self [id number] [place] Medig[place] Part B [id number] Self [id number] [facility] Medigap Part B [id number] Self [id number] [place] Medig[place] B [id number] Self [id number] [place] [facility] Medicaid [id number] Self [id number] [facility] Communty Plan Medicaid [id number] Self [id number] MEDICAID -CLINIC [id number] [facility] [place] COUNT INCLUDES THE [facility] MEDICARE-PHYSICIAN [id number] 18 [id number] MEDICARE [facility] O [id number] S [id number] [facility] Communty Plan Medicaid [id number] Self [id number] SELF PAY ONLY [id number] SP [id number] [id number] SP [id number] ALLSTATE INS CO NO FAULT O UN [id number] S UN ALLSTATE INS CO NO FAULT UN SI2 UN ALLSTATE INS CO NO FAULT [id number] Medicaid [place] Medicaid [id number] Self ALLSTATE INS [place] NO FAULT O [id number] S [id number] [facility] MEDICAID [id number] SELF PAY ONLY UNAVAILABLE SP UNAV AILABLE [facility] [id number] SP [id number] [facility] [id number] SP [id number] MEDICARE [id number] S [id number] MEDICAID [id number] [facility] MEDICARE [id number] S [id number] [id number] [id number] SP [id number] [facility](MCAID) O [id number] S [id number] MEDICAID M [id number] MEDICAID HEA [id number] Problems, Conditions, and Diagnoses Code Display Name Description Problem Type Effective Dates Data Source(s) Z53.29 Procedure and treatment not carried out because of patient's decision for other reasons PROC/TRTMT NOT CRD OUT BEC PT DECISION FOR OTH REASONS Diagn osis 12/05/2020 07:41:00 PM EDT [facility] F10.20 Alcohol dependence, uncomplicated ALCOHOL DEPEND ENCE, UNCOMPLICATED Diagnosis 12/05/2020 07:41:00 PM EDT [facility] GI bleed GI bleed Diagnosis 04/25/2020 06:20:[address] [facility] F43.9 Reaction to severe stress, unspecified U nspecified Trauma- and Stressor- Related Disorder Condition 06/20/2021 12:00:00 AM EDT [facility] ( e [facility]) F41.0 Panic disorder [episodic paroxysmal anxiety] Panic Dis order Condition 06/20/2021 12:00:00 AM EDT [facility] ([facility]) F17.200 Nicotine dependence, unspecified, uncomp licated Tobacco Use Disorder, Severe Condition 06/20/2021 12:00:00 AM EDT [facility] ( e [facility]) F10.20 Alcohol dependence, uncomplicated Alcohol Use Disorder , Severe Condition 06/20/2021 12:00:00 AM EDT [facility] ([facility]) F41.9 Anxiety disorder, unspecified Unspecified Anxiety Diso rder Condition 06/20/2021 12:00:00 AM EDT [facility] ([facility]) K57.90 [id number] Diverticulosis Problem 06/09/2021 12:00:00 A M EDT eCW1 ([facility]) K64.8 [id number] Internal hemorrhoid Problem 06/09/2021 12:00 :00 AM EDT eCW1 ([facility]) K64.4 [id number] External hemorrhoid Problem 06/09/2021 12:00 :00 AM EDT eCW1 ([facility]) R06.00 [id number] Dyspnea, unspecified type Problem 06/09/2021 12:00:00 AM EDT eCW1 ([facility]) E87.6 [id number] Hypokalemia Problem 06/09/2021 12:00:00 AM E DT eCW1 ([facility]) R18.8 [id number] Other ascites Problem 06/09/2021 12:00:00 AM EDT eCW1 ([facility]) D12.2 [id number] Adenomatous polyp of ascending colon Prob katie 06/09/2021 12:00:00 AM EDT eCW1 ([facility]) D12.3 [id number] Adenomatous polyp of transverse colon Pro blem 06/09/2021 12:00:00 AM EDT eCW1 ([facility]) D51.8 97563625 Macrocytic anemia with vitamin B12 defici ency Problem 06/09/2021 12:00:00 AM EDT eCW1 ([facility]) D12.0 [id number] Adenomatous polyp of cecum Problem 12:00:00 AM EDT eCW1 ([facility]) K63.5 [id number] Polyp of splenic flexure of colon Problem 06/09/2021 12:00:00 AM EDT eCW1 ([facility]) K51.00 [id number] Pancolitis Problem 06/09/2021 12:00:00 AM ED T eCW1 ([facility]) K50.019 [id number] Terminal ileitis with complication Proble m 06/09/2021 12:00:00 AM EDT eCW1 ([facility]) E83.39 [id number] Hypophosphatasia Problem 06/07/2021 12:00:00 AM EDT eCW1 ([facility]) R89.9 [id number] Abnormal laboratory test result Problem 05/08/2021 12:00:00 AM EDT eCW1 ([facility]) D50.0 [id number] Iron deficiency anemia due to chronic blo od loss Problem 04/12/2021 12:00:00 AM EDT eCW1 ([facility]) F51.5 [id number] Nightmares Problem 10/02/2020 12:00:00 AM ES T eCW1 ([facility]) M81.0 Age-related osteoporosis Age-related ost eoporosis without current pathological fracture Problem 09/01/2020 12:00:00 AM EST eCW1 ([facility]) 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, single episod e, in partial remission Major Depressive Disorder, Single episode, In partial remission Condition 06/20/2020 12:00:00 AM EDT [facility] ([facility]) K85.20 Alcohol induced acute pancreatitis witho ut necrosis or infection Alcohol induced acute pancreatitis without necrosis or infection Problem 04/25/2020 01:00:00 AM EDT [facility] ([facility] ) F10.20 Alcohol dependence, uncomplicated Alcohol depend ence, uncomplicated Problem 04/25/2020 01:00:00 AM EDT [facility] ([facility]) J69.0 Pneumonitis due to inhalation of food an d vomit Pneumonitis due to inhalation of food and vomit Problem 04/25/2020 01:00:00 AM EDT NETS MART ([facility]) I82.B19 Acute embolism and thrombosis of unspeci fied subclavian vein Acute embolism and thrombosis of unspecified subclavian vein Problem 04/25/2020 01:00:00 AM EDT [facility] ([facility] ) F17.210 Nicotine dependence, cigarettes, uncompl icated Nicotine dependence, cigarettes, uncomplicated Problem 04/25/2020 01:00:00 AM EDT NETSMAR T ([facility]) M81.0 Age-related osteoporosis without current pathological fracture Age-related osteoporosis without current pathological fracture Problem 08/2019 01:00:00 AM EDT [facility] ([facility] ) F41.9 Anxiety disorder, unspecified Anxiety disorder, unspec ified Problem 04/25/2020 01:00:00 AM EDT [facility] ([facility] ) F32.9 Major depressive disorder, single episod e, unspecified Major depressive disorder, single episode, unspecified Problem 04/25/2020 01:00:00 AM EDT [facility] ([facility]) Z91.81 History of falling History of falling Problem 0 01:00:00 AM EDT [facility] ([facility]) Z60.2 Problems related to living alone Problems related to l iving alone Problem 04/25/2020 01:00:00 AM EDT [facility] (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 ) K92.2 Gastrointestinal hemorrhage, unspecified Gastrointestinal hemorrhage, unspecified Problem 04/25/2020 01:00:00 AM EDT [facility] ([facility]) [id number] {At Risk for Deliberate Self Harm (Restr aint Risk)} {At Risk for Deliberate Self Harm (Restraint Risk)} Status:Resolved. Problem 04/28/2020 12:00:00 AM EDT [facility] Surgeries/Procedures Procedure Description Date Indications Data Source(s) [facility] [place] Lvl 3[place]Est pt 06/20/2021 12:00:00 AM EDT - 06/20/2021 12:00:00 AM EDT [facility] ([facility]) Telemed A/O 30" 06/20/2021 12:00:00 AM EDT [facility] ([facility]) [facility] [place] E/M Lvl 3--Est pt 06/20/2021 12:00:00 AM E DT [facility] ([facility]) Extended Individual Psychotherapy - 45 min 04/05/2021 12:00:00 AM EDT - 04/05/2021 12:00:00 AM EDT [facility] ([facility]) Extended Individual Psychotherapy - 45 min 12:00:00 AM EDT [facility] ([facility]) Unclassified biologics 03/14/2021 12:00:00 AM EDT eCW1 ([facility]) [facility] [place] E/M Lvl 3--Est pt 03/07/2021 12:00:00 AM EDT - 03/07/2021 12:00:00 AM EDT [facility] ([facility]) Telemed A/O 30" 03/07/2021 12:00:00 AM EDT [facility] ([facility]) [facility] [place] E/M Lvl 3--Est pt 03/07/2021 12:00:00 AM E DT [facility] ([facility]) [facility] [place] E/M Lvl 3--Est pt 01/16/2021 12:00:00 AM EDT - 01/16/2021 12:00:00 AM EDT [facility] ([facility]) Telemed A/O 30" 01/16/2021 12:00:00 AM EDT [facility] ([facility]) [facility] Telemed E/M Lvl 3--Est pt 01/16/2021 12:00:00 AM E DT [facility] ([facility]) Extended Individual Psychotherapy - 45 min 01/09/2021 12:00:00 AM EDT - 01/09/2021 12:00:00 AM EDT [facility] ([facility]) Extended Individual Psychotherapy - 45 min 12:00:00 AM EDT [facility] ([facility]) Extended Individual Psychotherapy - 45 min 12/26/2020 12:00:00 AM EDT - 12/26/2020 12:00:00 AM EDT [facility] ([facility]) Extended Individual Psychotherapy - 45 min 12:00:00 AM EDT [facility] ([facility]) MHC Telemed E/M Lvl 3--Est pt 12/19/2020 12:00:00 AM EDT - 12/19/2020 12:00:00 AM EDT [facility] ([facility]) Telemed A/O 30" 12/19/2020 12:00:00 AM EDT [facility] ([facility]) [facility] Telemed E/M Lvl 3--Est pt 12/19/2020 12:00:00 AM E DT [facility] ([facility]) Brief Individual Psychotherapy - 30 min 12/12/2020 12:00:00 AM EDT - 12/12/2020 12:00:00 AM EDT [facility] ([facility]) Brief Individual Psychotherapy - 30 min 12/12/2020 12: 00:00 AM EDT [facility] ([facility]) MHC Telemed E/M Lvl 3--Est pt 11/21/2020 12:00:00 AM EDT - 11/21/2020 12:00:00 AM EDT [facility] ([facility]) Telemed A/O 30" 11/21/2020 12:00:00 AM EDT [facility] ([facility]) MHC Telemed E/M Lvl 3--Est pt 11/21/2020 12:00:00 AM E DT [facility] ([facility]) MHCTelemed E/M Lvl 5--Est pt 11/21/2020 12:00:00 AM ED T [facility] ([facility]) Extended Individual Psychotherapy - 45 min 11/14/2020 12:00:00 AM EDT - 11/14/2020 12:00:00 AM EDT [facility] ([facility]) Extended Individual Psychotherapy - 45 min 12:00:00 AM EDT [facility] ([facility]) Extended Individual Psychotherapy - 45 min 10/19/2020 12:00:00 AM EST - 10/19/2020 12:00:00 AM EST [facility] ([facility]) Extended Individual Psychotherapy - 45 min 12:00:00 AM EST [facility] ([facility]) MHC Telemed E/M Lvl 3--Est pt 10/17/2020 12:00:00 AM EST - 10/17/2020 12:00:00 AM EST [facility] ([facility]) Telemed A/O 30" 10/17/2020 12:00:00 AM EST [facility] ([facility]) MHC Telemed E/M Lvl 3--Est pt 10/17/2020 12:00:[address] [facility] ([facility]) TEMPMHCTelemed 30" Psychotherapy 021 12:00:00 AM EST - 09/27/2020 12:00:00 AM EST [facility] ([facility]) TEMPMHCTelemed 30" Psychotherapy 09/26/2020 12:00:00 A M EST [facility] ([facility]) Unclassified biologics 09/14/2020 12:00:00 AM EST eCW1 ([facility]) MHC Telemed E/M Lvl 3--Est pt 09/05/2020 12:00:00 AM EST - 09/05/2020 12:00:00 AM EST [facility] ([facility]) Telemed A/O 30" 09/05/2020 12:00:00 AM EST [facility] ([facility]) MHC Telemed E/M Lvl 3--Est pt 09/05/2020 12:00:[address] [facility] ([facility]) Extended Individual Psychotherapy - 45 min 08/22/2020 12:00:00 AM EST - 08/22/2020 12:00:00 AM EST [facility] ([facility]) Extended Individual Psychotherapy - 45 min 0 12:00:00 AM EST [facility] ([facility]) MHC Telemed E/M Lvl 3--Est pt 07/28/2020 12:00:00 AM EST - 07/28/2020 12:00:00 AM EST [facility] ([facility]) Telemed A/O 30" 07/28/2020 12:00:00 AM EST [facility] ([facility]) [facility] [place] E/M Lvl 3--Est pt 07/28/2020 12:00:[address] [facility] ([facility]) Extended Individual Psychotherapy - 45 min 07/25/2020 12:00:00 AM EST - 07/25/2020 12:00:00 AM EST [facility] ([facility]) Extended Individual Psychotherapy - 45 min 0 12:00:00 AM EST [facility] ([facility]) Extended Individual Psychotherapy - 45 min 07/04/2020 12:00:00 AM EST - 07/04/2020 12:00:00 AM EST [facility] ([facility]) Extended Individual Psychotherapy - 45 min 0 12:00:00 AM EST [facility] ([facility]) Extended Individual Psychotherapy - 45 min 06/20/2020 12:00:00 AM EDT - 06/20/2020 12:00:00 AM EDT [facility] ([facility]) Extended Individual Psychotherapy - 45 min 0 12:00:00 AM EDT [facility] ([facility]) Extended Individual Psychotherapy - 45 min 06/06/2020 12:00:00 AM EDT - 06/06/2020 12:00:00 AM EDT [facility] ([facility]) Extended Individual Psychotherapy - 45 min 0 12:00:00 AM EDT [facility] ([facility]) Echocardiography Limited Or Follow-Up Study 04/28/2020 12:00:00 AM EDT [facility] ([facility] [place] INSJ NON-TUNNELED CENTRAL VENOUS CATH AGE 5 YR/> 04/28 12:00:00 AM EDT [facility] ([facility] [place] [id number]"Psychotherapy 0 12:00:00 AM EDT - 04/26/2020 12:00:00 AM EDT [facility] ([facility]) [id number]"Psychotherapy 04/26/2020 12:00:00 AM EDT [facility] ([facility]) Electrocardiogram Interpretation & Report Only 020 12:00:00 AM EDT [facility] ([facility] [place] Results ID Date Data Source [id number] 06/12/2021 11:48:00 AM EDT [facility] Name Value Range Interpretation Code Description Data Apurva rce(s) Supporting Document(s) SARS coronavirus 2 RNA [Presence] in Res piratory specimen by MINDY with probe detection NEGATIVE [facility] This lab was ordered by [facility] a nd reported by [facility]. ID Date Data Source [id number] 06/01/2021 06:28:00 PM EDT [facility] Name Value Range Interpretation Code Description Data Apurva rce(s) Supporting Document(s) SARS coronavirus 2 RNA [Presence] in Res piratory specimen by MINDY with probe detection NEGATIVE [facility] This lab was ordered by [facility] a nd reported by [facility]. ID Date Data Source TOTAL IRON BINDING CAPACIT 2021 12:00:00 AM EDT eCW1 ( [facility]) Name Value Range Interpretation Code Description Data Apurva rce(s) Supporting Document(s) 24.7 13.2-45.0 PERCENT SATURATION eCW1 ([facility]) 72 50-170 IRON (FE) eCW1 ([facility]) 291 250-450 TOTAL IRON BINDING CAPACI TY eCW1 ([facility]) ID Date Data Source FERRITIN 2021 12:00:00 AM EDT eCW1 ([facility]) Name Value Range Interpretation Code Description Data Apurva rce(s) Supporting Document(s) 109 8-252 FERRITIN eCW1 ([facility]) ID Date Data Source CBC with Differential 05/04/2021 12:00:00 AM EDT eCW1 ([facility]) Name Value Range Interpretation Code Description Data Apurva rce(s) Supporting Document(s) 14.1 4.0-10.0 WHITE BLOOD COUNT eCW1 (Counts include 234 beds at the [facility]) 41.0 36.0-47.0 HEMATOCRIT eCW1 ([facility]) 3.99 4.00-5.40 RED BLOOD COUNT eCW1 ([facility]) 13.7 12.0-15.5 HEMOGLOBIN eCW1 ([facility]) 34.3 27.0-33.0 MEAN CORPUSCULAR HEMOGLOB IN eCW1 ([facility]) 102.8 80.0-96.0 MEAN CORPUSCULAR VOLUME e CW1 ([facility]) 33.4 32.0-36.5 MEAN CORPUSCULAR HGB CONC eCW1 ([facility]) 74.7 36.0-66.0 NEUTROPHILS % eCW1 ([facility]) 407 150-450 PLATELET COUNT, AUTOMATED eCW1 ([facility]) 12.7 11.5-14.5 RED CELL DISTRIBUTION WID TH eCW1 ([facility]) 0.9 0.0-3.0 EOS % eCW1 ([facility]) 7.9 2.0-8.0 MONO % eCW1 ([facility]) 15.2 24.0-44.0 LYMPH % eCW1 ([facility]) 1.1 0.0-0.8 MONO # eCW1 ([facility]) 10.5 1.5-8.5 NEUTROPHILS # eCW1 ([facility]) 2.2 1.5-5.0 LYMPH # eCW1 ([facility]) 0.7 0.0-1.0 BASO % eCW1 ([facility]) 0.1 0.0-0.5 EOS # eCW1 ([facility]) 0.1 0.0-0.2 BASO # eCW1 ([facility]) ID Date Data Source GASTROINTESTINAL GI PANEL (GIPANEL) 05/04/2021 12:00:00 AM EDT eCW1 ([facility]) Name Value Range Interpretation Code Description Data Apurva rce(s) Supporting Document(s) This Gastrointestinal PCR Panel detects the following bacteria, GASTROINTESTINAL (GI) PANEL eCW1 ([facility]) ID Date Data Source C REACTIVE PROTEIN QUANTITATIV (At [facility]) 05/04/2021 12:00 :00 AM EDT eCW1 ([facility]) Name Value Range Interpretation Code Description Data Apurva rce(s) Supporting Document(s) 4.93 0.00-0.30 C REACTIVE PROTEIN QUANTI TATIV eCW1 ([facility]) ID Date Data Source Comprehensive Metabolic Profile (CMP) 05/04/2021 12:00:00 AM EDT eCW1 ([facility]) Name Value Range Interpretation Code Description Data Apurva rce(s) Supporting Document(s) 0.59 0.55-1.30 CREATININE FOR GFR eCW1 ([facility]) 6 7-18 BLOOD UREA NITROGEN eCW1 ([facility]) 103 70-100 GLUCOSE, FASTING eCW1 ([facility]) 3.9 3.5-5.1 POTASSIUM SERUM eCW1 ([facility]) 135 136-145 SODIUM LEVEL eCW1 ([facility]) > 60.0 >45 GLOMERULAR FILTRATION RATE eCW 1 ([facility]) 8.6 8.8-10.2 CALCIUM LEVEL eCW1 ([facility]) 25 21-32 CARBON DIOXIDE LEVEL eCW1 ([facility]) 102 98-107 CHLORIDE LEVEL eCW1 ([facility]) 67 12-78 ALT/SGPT eCW1 ([facility]) 108 7-37 AST/SGOT eCW1 ([facility]) 195 45-117 ALKALINE PHOSPHATASE eCW1 ([facility]) 3.0 3.2-5.2 ALBUMIN eCW1 ([facility]) 1.1 0.2-1.0 BILIRUBIN,TOTAL eCW1 ([facility]) 7.0 6.4-8.2 TOTAL PROTEIN eCW1 ([facility]) 0.8 1.2-2.2 ALBUMIN/GLOBULIN RATIO eCW1 ([facility]) ID Date Data Source LIPASE 05/04/2021 12:00:00 AM EDT eCW1 ([facility]) Name Value Range Interpretation Code Description Data Apurva rce(s) Supporting Document(s) [id number] LIPASE eCW1 ([facility]) ID Date Data Source ERYTHROCYTE SEDIMENTATION RATE 05/04/2021 12:00:00 AM EDT eC W1 ([facility]) Name Value Range Interpretation Code Description Data Apurva rce(s) Supporting Document(s) 48 0-30 ERYTHROCYTE SEDIMENTATION RATE eCW1 ([facility]) ID Date Data Source [id number] 12/07/2020 07:38:00 AM EDT [facility] Name Value Range Interpretation Code Description Data Apurva rce(s) Supporting Document(s) White Blood Count 3.5-10.5 Normal (applies to non-numeri c results) [facility] Red Blood Count 3.90-5.00 Normal (applies to non-numeric results) [facility] Hemoglobin 12.0-15.5 Normal (applies to non-numeric resul ts) [facility] Hematocrit 34.9-44.5 Normal (applies to non-numeric resul ts) [facility] Mean Corpuscular Volume 81.2-95.1 Above high normal [facility] Mean Corpuscular Hgb 25.6-32.2 Above high normal [facility] Mean Corpuscular Hgb Conc 32.0-36.0 Normal (applies to no n-numeric results) [facility] Red Cell Distribution Width 11.9-15.5 Normal (appli es to non-numeric results) [facility] Platelet Count 159 x10 3/uL 150-450 Normal (applies to non-numeric results) [facility] Mean Platelet Volume 9.4-12.4 Below low normal [facility] Neutrophils% (Auto) 31.0-71.0 Normal (applies to non-nume fortino results) [facility] Lymphocytes% (Auto) 20.0-55.0 Normal (applies to non-nume fortino results) [facility] Monocytes% (Auto) 4.0-12.0 Normal (applies to non-numeri c results) [facility] Eosinophils% (Auto) 1.0-8.0 Normal (applies to non-nume fortino results) [facility] Basophils% (Auto) 0.0-2.0 Normal (applies to non-numeri c results) [facility] Immature Granulocytes% (Auto) 0.0-2.0 Normal (carmen lies to non-numeric results) [facility] Neutrophils# (Auto) 1.50-6.20 Normal (applies to non-nume fortino results) [facility] Lymphocytes# (Auto) 1.20-4.00 Normal (applies to non-nume fortino results) [facility] Monocytes# (Auto) 0.00-0.90 Normal (applies to non-numeri c results) [facility] Eosinophils# (Auto) 0.00-0.50 Normal (applies to non-nume fortino results) [facility] Basophils# (Auto) 0.00-0.20 Normal (applies to non-numeri c results) [facility] Immature Granulocytes# (Auto) 0.00-7.00 No rmal (applies to non-numeric results) [facility] ID Date Data Source [id number] 12/07/2020 08:39:00 PM EDT [facility] Name Value Range Interpretation Code Description Data Apurva rce(s) Supporting Document(s) Hepatitis A Ab,IgG result Normal (applies to no n-numeric results) [facility] Result indicates immunity to hepatitis A infection from either vaccination or past exposure to hepatitis A. False-positive results may be observed in patients with CMV antibodies or heterophilic antibodies. REFERENCE VALUE Unvaccinated: Negative Vaccinated: Positive Test Performed by: [place] [address] E Commerce Manager: Darinel Murray M.D. Ph.D.; CLIA# [id number] ID Date Data Source [id number] 12/06/2020 12:54:00 PM EDT [facility] Name Value Range Interpretation Code Description Data Apurva rce(s) Supporting Document(s) HIV Screen result Nonreactive Normal (applies to non-numer ic results) [facility] Test [facility] By: [facility] [address] [place] [address] Director: David Gold MD ID Date Data Source [id number] 12/06/2020 12:54:00 PM EDT [facility] Name Value Range Interpretation Code Description Data Apurva rce(s) Supporting Document(s) CPK result 62 U/L 26-192 Normal (applies to non-numeric resul ts) [facility] Test Performed By: [facility] [address] [place] [address] Director: David Gold MD ID Date Data Source [id number] 12/06/2020 12:54:00 PM EDT [facility] Name Value Range Interpretation Code Description Data Apurva rce(s) Supporting Document(s) Hepatitis C Virus Ab result Nonreactive Norm al (applies to non-numeric results) [facility] Test Performed By: [facility] [address] [place] [address] Director: David Gold MD ID Date Data Source [id number] 12/06/2020 12:54:00 PM EDT [facility] Value Range Interpretation Code Description Data Apurva rce(s) Supporting Document(s) Hep Bs Ag result T-Test Nonreactive Normal (applies to non -numeric results) [facility] Test Performed By: [facility] [address] [place] [address] Director: David Gold MD ID Date Data Source [id number] 12/06/2020 12:54:00 PM EDT [facility] Value Range Interpretation Code Description Data Apurva rce(s) Supporting Document(s) Syphilis Serology result Nonreactive Normal (applies to non-numeric results) [facility] Test Performed By: [facility] [address] [place] [address] Director: David Gold MD ID Date Data Source [id number] 12/05/2020 10:07:00 PM EDT [facility] Value Range Interpretation Code Description Data Apurva rce(s) Supporting Document(s) Sodium 138 mmol/L 136-145 Normal (applies to non-numeric resul ts) [facility] Potassium 3.5-5.1 Normal (applies to non-numeric resul ts) [facility] Chloride 99 mmol/L 98-107 Normal (applies to non-numeric resul ts) [facility] Carbon Dioxide CO2 21-32 Normal (applies to non-numer ic results) [facility] Anion Gap 5.0-16.0 Normal (applies to non-numeric resul ts) [facility] BUN 9 mg/dL 7-18 Normal (applies to non-numeric results) [facility] Creatinine,Serum 0.7-1.2 Normal (applies to non-numeric results) [facility] GFR >60 Normal (applies to non-numeric results) [facility] Glucose Level 114 mg/dL 60-99 Above high normal [facility] Reference range is only applicable when patient is fasting Note the following drug interference: Sulfasalazine Sulfapyridine Can see falsely depressed Can see falsely elevated result with up to 17% results with up to 11% decrease in measurement increase in measurement Recommend patients be collected for this test prior to administration of either drug. Calcium 8.5-10.1 Below low normal [facility] Bilirubin,Total 0.1-1.9 Normal (applies to non-numeric results) [facility] SGOT(AST) 90 U/L 15-37 Above high normal [facility] Note the following drug interference: Sulfasalazine Sulfapyridine Can see falsely depressed Can see falsely elevated result with up to 10% results with up to 10% decrease in measurement increase in measurement Recommend patients be collected for this test prior to administration of either drug. SGPT(ALT) 81 U/L 12-78 Above high normal [facility] Note the following drug interference: Sulfasalazine Sulfapyridine Can see falsely depressed Can see falsely elevated result with up to 29% results with up to 10% decrease in measurement increase in measurement Recommend patients be collected for this test prior to administration of either drug. Alkaline Phosphatase 127 U/L 38-126 Above high normal [facility] can increase Alkaline Phosp le vels up to 2 times the normal adult value. Normal values for children and adolescents are 2 to 3 times the normal adult value. Total Protein 6.0-8.2 Normal (applies to non-numeric re sults) [facility] Albumin Level 3.4-5.0 Normal (applies to non-numeric re sults) [facility] ID Date Data Source [id number] 12/05/2020 10:07:00 PM EDT [facility] Name Value Range Interpretation Code Description Data Apurva rce(s) Supporting Document(s) Bilirubin,Direct 0.05-0.20 Normal (applies to non-numeric results) [facility] ID Date Data Source [id number] 12/05/2020 10:07:00 PM EDT [facility] Name Value Range Interpretation Code Description Data Apurva rce(s) Supporting Document(s) Phosphorus 2.5-4.9 Normal (applies to non-numeric resul ts) [facility] ID Date Data Source [id number] 12/05/2020 10:07:00 PM EDT [facility] Name Value Range Interpretation Code Description Data Apurva rce(s) Supporting Document(s) Magnesium 1.8-2.4 Normal (applies to non-numeric resul ts) [facility] ID Date Data Source [id number] 12/05/2020 10:07:00 PM EDT [facility] Name Value Range Interpretation Code Description Data Apurva rce(s) Supporting Document(s) Thyroid Stimulate Hormone TSH 0.358-3.74 Above high normal [facility] ID Date Data Source [id number] 12/05/2020 09:40:00 PM EDT [facility] Name Value Range Interpretation Code Description Data Apurva rce(s) Supporting Document(s) White Blood Count 3.5-10.5 Normal (applies to non-numeri c results) [facility] Red Blood Count 3.90-5.00 Normal (applies to non-numeric results) [facility] Hemoglobin 12.0-15.5 Normal (applies to non-numeric resul ts) [facility] Hematocrit 34.9-44.5 Normal (applies to non-numeric resul ts) [facility] Mean Corpuscular Volume 81.2-95.1 Above high normal [facility] Mean Corpuscular Hgb 25.6-32.2 Above high normal [facility] Mean Corpuscular Hgb Conc 32.0-36.0 Normal (applies to no n-numeric results) [facility] Red Cell Distribution Width 11.9-15.5 Normal (appli es to non-numeric results) [facility] Platelet Count 198 x10 3/uL 150-450 Normal (applies to non-numeric results) [facility] Mean Platelet Volume 9.4-12.4 Below low normal [facility] Neutrophils% (Auto) 31.0-71.0 Normal (applies to non-nume fortino results) [facility] Lymphocytes% (Auto) 20.0-55.0 Normal (applies to non-nume fortino results) [facility] Monocytes% (Auto) 4.0-12.0 Normal (applies to non-numeri c results) [facility] Eosinophils% (Auto) 1.0-8.0 Normal (applies to non-nume fortino results) [facility] Basophils% (Auto) 0.0-2.0 Normal (applies to non-numeri c results) [facility] Immature Granulocytes% (Auto) 0.0-2.0 Normal (carmen lies to non-numeric results) [facility] Neutrophils# (Auto) 1.50-6.20 Normal (applies to non-nume fortino results) [facility] Lymphocytes# (Auto) 1.20-4.00 Below low normal [facility] Monocytes# (Auto) 0.00-0.90 Normal (applies to non-numeri c results) [facility] Eosinophils# (Auto) 0.00-0.50 Normal (applies to non-nume fortino results) [facility] Basophils# (Auto) 0.00-0.20 Normal (applies to non-numeri c results) [facility] Immature Granulocytes# (Auto) 0.00-7.00 No rmal (applies to non-numeric results) [facility] ID Date Data Source [id number] 12/08/2020 03:15:00 PM EDT [facility] Name Value Range Interpretation Code Description Data Apurva rce(s) Supporting Document(s) Chlamydia,Urine Negative Normal (applies to non-numeric results) [facility] Test Performed By: [facility] [address] [place] [address] Director: David Gold MD . GC Urine Negative Normal (applies to non-numeric resul ts) [facility] Test Performed By: [facility] [address] [place] [address] Director: David Gold MD . Methodology: Second generation nucleic acid amplification. ID Date Data Source [id number] 12/07/2020 08:27:00 PM EDT [facility] Value Range Interpretation Code Description Data Apurva rce(s) Supporting Document(s) Hepatitis A Ab,IgG result Normal (applies to no n-numeric results) [facility] Result indicates immunity to hepatitis A infection from either vaccination or past exposure to hepatitis A. False-positive results may be observed in patients with CMV antibodies or heterophilic antibodies. REFERENCE VALUE Unvaccinated: Negative Vaccinated: Positive Test Performed by: [place] [address] E [employer] Manager: Darinel Murray M.D. Ph.D.; CLIA# [id number] ID Date Data Source [id number] 12/06/2020 12:49:00 PM EDT [facility] Value Range Interpretation Code Description Data Apurva rce(s) Supporting Document(s) HIV 1/2 Ab p24 Ag Screen Nonreactive Normal (applies to non-numeric results) [facility] Test Performed By: [facility] [address] [place] [address] Director: David Gold MD ID Date Data Source [id number] 12/06/2020 12:49:00 PM EDT [facility] Value Range Interpretation Code Description Data Apurva rce(s) Supporting Document(s) Hep C Ab-T Test Nonreactive Normal (applies to non-numeric results) [facility] Test Performed By: [facility] [address] [place] [address] Director: David Gold MD ID Date Data Source [id number] 12/06/2020 12:49:00 PM EDT [facility] Value Range Interpretation Code Description Data Apurva rce(s) Supporting Document(s) Hep Bs Ag Result T-Test Nonreactive Normal (applies to non -numeric results) [facility] Test Performed By: [facility] [address] [place] [address] Director: David Gold MD ID Date Data Source [id number] 12/06/2020 12:49:00 PM EDT [facility] Value Range Interpretation Code Description Data Apurva rce(s) Supporting Document(s) Syphilis Serology Nonreactive Normal (applies to non-numer ic results) [facility] Test Performed By: [facility] [address] [place] [address] Director: David Gold MD ID Date Data Source [id number] 12/06/2020 11:59:00 AM EDT [facility] Value Range Interpretation Code Description Data Apurva rce(s) Supporting Document(s) CPK 62 U/L 26-192 Normal (applies to non-numeric resul ts) [facility] Test Performed By: [facility] [address] [place] [address] Director: David Gold MD ID Date Data Source [id number] 12/05/2020 10:06:00 PM EDT [facility] Value Range Interpretation Code Description Data Apurva rce(s) Supporting Document(s) Ethanol Less than 10.0 Normal (applies to non-numeric r esults) [facility] ID Date Data Source [id number] 12/08/2020 04:03:00 PM EDT [facility] Value Range Interpretation Code Description Data Apurva rce(s) Supporting Document(s) Chlamydia,Urine result Negative Normal (applies to non-n umeric results) [facility] Test Performed By: [place] [address] Director: David Gold MD . GC Urine result Negative Normal (applies to non-numeric results) [facility] Test Performed By: [place] [address] Director: David Gold MD . Methodology: Second generation nucleic acid amplification. ID Date Data Source [id number] 12/05/2020 09:41:00 PM EDT [facility] Name Value Range Interpretation Code Description Data Apurva rce(s) Supporting Document(s) UDS Benzodiazepines Screen Negative Normal (applies to n on-numeric results) [facility] UDS Cocaine Screen Negative Normal (applies to non-numer ic results) [facility] UDS Ampetamine Screen Negative Normal (applies to non-nu meric results) [facility] UDS Cannabinoids Screen Negative Normal (applies to non- numeric results) [facility] UDS Opiates Screen Negative Normal (applies to non-numer ic results) [facility] UDS Barbiturates Screen Negative Normal (applies to non- numeric results) [facility] Threshold Levels Benzodiazepine 200 ng/mL Cocaine 300 ng/mL Amphetamines 1000 ng/mL Cannabinoids (THC) 50 ng/mL Opiates 300 ng/mL Barbiturates 200 ng/mL All positive findings are presumptive and unconfirmed. Confirmation of positive results are performed only at request of provider. Unconfirmed results must not be used for non-medical purposes (i.e. preemployment and legal purposes) ID Date Data Source [id number] 12/05/2020 09:47:00 PM EDT [facility] Collected By: Nurse's Aide Time Collect ed: 2009 Collected By: Nurse's Aide Time Collect ed: 2009 Name Value Range Interpretation Code Description Data Apurva rce(s) Supporting Document(s) Color,Urine Colorl-Dk Y Normal (applies to non-numeric res ults) [facility] Clarity,Urine Clear Normal (applies to non-numeric re sults) [facility] Specific [place],Urine 1.005-1.030 Normal (applies to non- numeric results) [facility] pH,Urine 5.0-8.0 Normal (applies to non-numeric resul ts) [facility] Protein,Urine Negative Normal (applies to non-numeric re sults) [facility] Glucose,Urine Negative Normal (applies to non-numeric re sults) [facility] Ketones,Urine Negative Normal (applies to non-numeric re sults) [facility] Blood,[facility]rine Negative [facility] Bilirubin,Urine Negative Normal (applies to non-numeric results) [facility] Urobilinogen,Urine 0.2-1.0 Normal (applies to non-numer ic results) [facility] Leukocyte Esterase,Urine Negative Normal (applies to non -numeric results) [facility] Nitrite,Urine Negative Normal (applies to non-numeric re sults) [facility] ID Date Data Source [id number] 12/05/2020 09:47:00 PM EDT [facility] Collected By: Nurse's Aide Time Collect ed: 2009 Collected By: Nurse's Aide Time Collect ed: 2009 Name Value Range Interpretation Code Description Data Apurva rce(s) Supporting Document(s) RBC,Urine None Seen [facility] WBC,Urine None Seen [facility] Casts,Urine None Seen Normal (applies to non-numeric resu lts) [facility] Epithelial Cells,Urine None - Few Normal (applies to non-n umeric results) [facility] Bacteria,Urine None Seen [facility] ital Mucus,Urine None [facility]en [facility] ID Date Data Source [id number] 12/05/2020 03:44:00 PM EDT [facility] Name Value Range Interpretation Code Description Data Apurva rce(s) Supporting Document(s) SARS-CoV-2 (COVID 19) NEGATIVE - SARS-CoV-2 (COVID19) [facility] This lab was ordered by [facility] a nd reported by [facility]. ID Date Data Source Low Dose Lung Screening CT Chest 06/22/2020 10:10:30 AM EDT eCW1 ([facility]) Name Value Range Interpretation Code Description Data Apurva rce(s) Supporting Document(s) Low Dose Lung Screening CT [address] eCW1 ([facility]) ID Date Data Source [id number] 05/11/2020 08:12:00 PM EDT [facility] DATE OF EXAM: 05/11/2020ULTRASOUND VASCU [...] and basilic veins. Professional interpretation performed at [facility] .End of diagnostic report for accession: [id number] Interpreted: Jeyson Potts MDTranscribed: 05/11/2020 08:09 PMSigned: 05/11/2020 08:12 PM Jeyson Potts MD [facility] # [id number] [facility] # [id number] Name Value Range Interpretation Code Description Data Apurva rce(s) Supporting Document(s) ID Date Data Source [id number] 05/11/2020 07:52:23 AM EDT [facility] Name Value Range Interpretation Code Description Data Apurva rce(s) Supporting Document(s) HGB 9.6 g/dL (12.0-16.0) L [facility] HCT 29.7 % (36.0-47.0) L [facility] ID Date Data Source [id number] 05/11/2020 12:50:54 AM EDT [facility] PATIENT ABO/Rh A POSITIVEANT IBODY SCREEN NEGATIVESPEC EXP DATE 05/13/2020TESTING SITE PERFORMED AT [address] [place], [place] [address]BLOOD BANK COMMENT BLOOD TYPE CONFIRMED.UNIT NUMBER [id number] COMPONENT TYPE LEUKOPOOR RED CELLSUNIT DIVISION 00STATUS OF UNIT TRANSFUSEDTRANSFUSION STATUS OK TO TRANSFUSECROSSMATCH RESULT COMPATIBLE Name Value Range Interpretation Code Description Data Apurva rce(s) Supporting Document(s) ID Date Data Source [id number] 05/10/2020 06:16:35 PM EDT [facility] Name Value Range Interpretation Code Description Data Apurva rce(s) Supporting Document(s) HGB 7.8 g/dL (12.0-16.0) L [facility] HCT 23.8 % (36.0-47.0) L [facility] ID Date Data Source [id number] 05/10/2020 01:24:51 PM EDT [facility] Name Value Range Interpretation Code Description Data Apurva rce(s) Supporting Document(s) HGB 8.8 g/dL (12.0-16.0) L [facility] HCT 27.3 % (36.0-47.0) L [facility] ID Date Data Source [id number] 05/10/2020 07:07:26 AM EDT [facility] Name Value Range Interpretation Code Description Data Apurva rce(s) Supporting Document(s) MAGNESIUM 1.8 mg/dL (1.7-2.4) [facility] ID Date Data Source [id number] 05/10/2020 07:07:26 AM EDT [facility] Name Value Range Interpretation Code Description Data Apurva rce(s) Supporting Document(s) PHOSPHORUS 3.1 mg/dL (2.5-4.5) [facility] ID Date Data Source [id number] 05/10/2020 07:07:26 AM EDT [facility] Name Value Range Interpretation Code Description Data Apurva rce(s) Supporting Document(s) SODIUM 139 mmol/L (136-145) [facility] POTASSIUM 3.4 mmol/L (3.6-5.2) L [facility] CHLORIDE 106 mmol/L (100-108) [facility] CO2 22 mmol/L (22-31) [facility] ANION GAP 11 mmol/L (7-16) [facility] UREA NITROGEN 3 mg/dL (7-24) L [facility] CREATININE 0.68 mg/dL (0.60-1.00) [facility] BUN/CREAT RATIO 4.4 RATIO (10.0-20.0) L [facility] GLUCOSE 104 mg/dL (70-99) H [facility] CALCIUM 7.8 mg/dL (8.4-10.2) L [facility] GFR >60 ml/min/1.73m2 (>59) [facility] GFR ( AMER) >60 ml/min/1.73m2 (>59) [facility] GFR INTERPRETATION [facility] --NORMAL KIDNEY FUNCTION OR MILD DISEASE - GFR >OR= 60CHRONIC KIDNEY DISEASE - GFR 15 - 59RENAL FAILURE - GFR <15 Est. GFR calculation based on the MDRDstudy equation, which assumes a steadystate for creatinine. Est. GFR should notbe used for medication dosing. ID Date Data Source [id number] 05/10/2020 06:59:27 AM EDT [facility] Name Value Range Interpretation Code Description Data Apurva rce(s) Supporting Document(s) APTT 68.6 s (22.0-34.3) H [facility] ID Date Data Source [id number] 05/10/2020 06:40:19 AM EDT [facility] Name Value Range Interpretation Code Description Data Apurva rce(s) Supporting Document(s) HGB 8.3 g/dL (12.0-16.0) L [facility] HCT 26.0 % (36.0-47.0) L [facility] ID Date Data Source [id number] 2020 10:43:08 PM EDT [facility] Name Value Range Interpretation Code Description Data Apurva rce(s) Supporting Document(s) APTT 42.7 s (22.0-34.3) H [facility] ID Date Data Source [id number] 2020 11:02:31 PM EDT [facility] Name Value Range Interpretation Code Description Data Apurva rce(s) Supporting Document(s) SPECIMEN DESCRIPTION [facility] C DIFF TOXIN B (NEG) [facility] 027 NAP1 B1 (NEG) [facility] COMMENT [facility] IS CLINICALLY INDICATED, PLEASE CONTA CT THE MICROBIOLOGY LABORATORY ([phone]) WITHIN 3 DAYS OF THIS REPORT. ID Date Data Source [id number] 2020 04:48:27 PM EDT [facility] Name Value Range Interpretation Code Description Data Apuvra rce(s) Supporting Document(s) HGB 9.1 g/dL (12.0-16.0) L [facility] HCT 29.4 % (36.0-47.0) L [facility] ID Date Data Source [id number] 05/10/2020 10:06:27 AM EDT [facility] [place], [place] [address]Tel# SURGICAL PATHOLOGY REPORTPatient Name:ALEX JAMESDOB:2Received:2020Accession #:[id number](s) [...] By Shahzad Troy M.D. [facility] [place], [place] [address]Technical component performed at [facility], Histopathology, [address] [place] [address], [facility].Reported at [facility], [address] [place] [address], [facility].This report may include immunohistochemical or in-situ hybridizationresults. Testing was developed and the performance characteristicsdetermined by [facility], as required byCLIA '88. The FDA has determined that approval for specific use is notnecessary for clinical use. The quality of Hematoxylin and Eosin stainsand as applicable, for all immunohistochemical and/or special stains,including positive and negative controls, were reviewed and consider edappropriate.ICD codes: R89.7CPT4 codes: A: 41339LE: [id number] Name Value Range Interpretation Code Description Data Apurva rce(s) Supporting Document(s) ID Date Data Source [id number] 2020 01:47:24 PM EDT [facility] Name Value Range Interpretation Code Description Data Apurva rce(s) Supporting Document(s) POC GLUCOSE 83 mg/dL (70-99) [facility] NOTIFIED NURSEPERFORMED BY CLINICAL S TAFF ID Date Data Source [id number] 2020 06:43:20 AM EDT [facility] Name Value Range Interpretation Code Description Data Apurva rce(s) Supporting Document(s) APTT 55.0 s (22.0-34.3) H [facility] ID Date Data Source [id number] 2020 06:40:39 AM EDT [facility] Name Value Range Interpretation Code Description Data Apurva rce(s) Supporting Document(s) WBC 8.8 10*3/uL (4.1-11.0) [facility] [place] RBC 2.47 10*6/uL (4.00-5.40) L [facility] HGB 7.5 g/dL (12.0-16.0) L [facility] HCT 23.5 % (36.0-47.0) L [facility] MCV 95.0 fL (80.0-95.0) [facility] MCH 30.5 pg (27.0-32.0) [facility] MCHC 32.1 g/dL (32.0-36.0) [facility] RDW 17.3 % (10.5-14.5) H [facility] PLT 484 10*3/uL (150-450) H [facility] MPV 9.4 fL (7.1-10.7) [facility] NEUT % 68.1 % (35.0-75.0) [facility] LYMPH % 17.1 % (16.0-52.0) [facility] MONO % 10.1 % (0.0-8.0) H [facility] EOS % 2.4 % (0.0-5.0) [facility] BASO % 2.3 % (0.0-4.0) [facility] NEUT # 6.0 10*3/uL (1.8-7.7) [facility] LYMPH # 1.5 10*3/uL (1.2-4.8) [facility] MONO # 0.9 10*3/uL (0.0-0.8) H [facility] Eosinophils [#/volume] in Blood by Automated count 0.2 10*3/uL (0.0-0 .5) [facility] BASO # 0.2 10*3/uL (0.0-0.2) [facility] ID Date Data Source [id number] 05/08/2020 09:34:49 PM EDT [facility] Name Value Range Interpretation Code Description Data Apurva rce(s) Supporting Document(s) APTT 61.7 s (22.0-34.3) H [facility] ID Date Data Source [id number] 05/08/2020 02:20:50 PM EDT [facility] Name Value Range Interpretation Code Description Data Apurva rce(s) Supporting Document(s) APTT 74.6 s (22.0-34.3) H [facility] ID Date Data Source [id number] 05/08/2020 10:35:00 AM EDT [facility] Name Value Range Interpretation Code Description Data Apurva rce(s) Supporting Document(s) SARS coronavirus 2 RNA [Presence] in Res piratory specimen by MINDY with probe detection [facility] This lab was reported by [facility]. ID Date Data Source [id number] 05/08/2020 03:28:37 PM EDT [facility] Name Value Range Interpretation Code Description Data Apurva rce(s) Supporting Document(s) SPECIMEN DESCRIPTION [facility] COVID19 RESULT (NDET) [facility] THIS ASSAY AMPLIFIES AND DETECTSTHE TARG ET RNA USING REAL-TIME PCR.NEGATIVE 2019_NCOV RT-PCR RESULTS DONOT PRECLUDE 2019_NCOV INFECTION ANDSHOULD NOT BE USED THE SOLE BASISFOR PATIENT MANAGEMENT DECISIONS. COMMENT [facility] APPROV[facility] B Y THE [place]. THE [place] FOODAND DRUG ADMINISTRATION HAS NOT APPROVEDTHIS TEST. NEGATIVE RESULTS DO NOT AYLAOSTBUWIT-NHS-2 INFECTION AND SHOULD NOT BEUSED THE SOLE BASIS FOR CLINICALDIAGNOSIS OR PATIENT MANAGEMENT DECISIONS.EMAILED TO [facility] AT 0573 ON [id number] CZ [id number]. FIRST TEST [facility] [employer] [facility] SYMPTOMATIC [facility] DATE OF SYMPT ONSET [facility] H[facility]IZED [facility] ICU [facility] CONGREGATE CARE SET [facility] ID Date Data Source [id number] 05/08/2020 07:10:35 AM EDT [facility] Name Value Range Interpretation Code Description Data Apurva rce(s) Supporting Document(s) SODIUM 138 mmol/L (136-145) [facility] [place] POTASSIUM 3.6 mmol/L (3.6-5.2) [facility] [place] CHLORIDE 105 mmol/L (100-108) [facility] CO2 21 mmol/L (22-31) L [facility] ANION GAP 12 mmol/L (7-16) [facility] UREA NITROGEN 6 mg/dL (7-24) L [facility] CREATININE 1.04 mg/dL (0.60-1.00) H [facility] BUN/CREAT RATIO 5.8 RATIO (10.0-20.0) L [facility] GLUCOSE 105 mg/dL (70-99) H [facility] CALCIUM 8.2 mg/dL (8.4-10.2) L [facility] GFR 53 ml/min/1.73m2 (>59) L [facility] GFR ( AMER) >60 ml/min/1.73m2 (>59) [facility] GFR INTERPRETATION [facility] --NORMAL KIDNEY FUNCTION OR MILD DISEASE - GFR >OR= 60CHRONIC KIDNEY DISEASE - GFR 15 - 59RENAL FAILURE - GFR <15 Est. GFR calculation based on the MDRDstudy equation, which assumes a steadystate for creatinine. Est. GFR should notbe used for medication dosing. ID Date Data Source [id number] 05/08/2020 07:10:35 AM EDT [facility] Name Value Range Interpretation Code Description Data Apurva rce(s) Supporting Document(s) MAGNESIUM 1.9 mg/dL (1.7-2.4) [facility] ID Date Data Source [id number] 05/08/2020 06:48:47 AM EDT [facility] Name Value Range Interpretation Code Description Data Apurva rce(s) Supporting Document(s) APTT 87.7 s (22.0-34.3) H [facility] ID Date Data Source [id number] 05/08/2020 06:46:31 AM EDT [facility] Name Value Range Interpretation Code Description Data Apurva rce(s) Supporting Document(s) WBC 11.2 10*3/uL (4.1-11.0) H [facility] RBC 3.00 10*6/uL (4.00-5.40) L [facility] HGB 9.2 g/dL (12.0-16.0) L [facility] HCT 28.9 % (36.0-47.0) L [facility] MCV 96.3 fL (80.0-95.0) H [facility] MCH 30.7 pg (27.0-32.0) [facility] MCHC 31.8 g/dL (32.0-36.0) L [facility] RDW 17.4 % (10.5-14.5) H [facility] PLT 609 10*3/uL (150-450) H [facility] MPV 9.5 fL (7.1-10.7) [facility] NEUT % 68.7 % (35.0-75.0) [facility] LYMPH % 19.0 % (16.0-52.0) [facility] MONO % 8.6 % (0.0-8.0) H [facility] EOS % 2.4 % (0.0-5.0) [facility] BASO % 1.3 % (0.0-4.0) [facility] NEUT # 7.7 10*3/uL (1.8-7.7) [facility] LYMPH # 2.1 10*3/uL (1.2-4.8) [facility] MONO # 1.0 10*3/uL (0.0-0.8) H [facility] Eosinophils [#/volume] in Blood by Automated count 0.3 10*3/uL (0.0-0 .5) [facility] BASO # 0.1 10*3/uL (0.0-0.2) [facility] ID Date Data Source [id number] 05/07/2020 10:37:54 PM EDT [facility] Name Value Range Interpretation Code Description Data Apurva rce(s) Supporting Document(s) APTT 80.0 s (22.0-34.3) H [facility] ID Date Data Source [id number] 05/07/2020 04:34:59 PM EDT [facility] Name Value Range Interpretation Code Description Data Apurva rce(s) Supporting Document(s) APTT 61.4 s (22.0-34.3) H [facility] ID Date Data Source [id number] 05/07/2020 04:17:37 PM EDT [facility] Name Value Range Interpretation Code Description Data Apurva rce(s) Supporting Document(s) HGB 8.7 g/dL (12.0-16.0) L [facility] HCT 26.5 % (36.0-47.0) L [facility] ID Date Data Source [id number] 05/07/2020 08:01:54 AM EDT [facility] Name Value Range Interpretation Code Description Data Apurva rce(s) Supporting Document(s) PHOSPHORUS 2.4 mg/dL (2.5-4.5) L [facility] ID Date Data Source [id number] 05/07/2020 08:01:54 AM EDT [facility] Name Value Range Interpretation Code Description Data Apurva rce(s) Supporting Document(s) MAGNESIUM 1.6 mg/dL (1.7-2.4) L [facility] ID Date Data Source [id number] 05/07/2020 08:01:54 AM EDT [facility] Name Value Range Interpretation Code Description Data Apurva rce(s) Supporting Document(s) TOTAL PROTEIN 5.4 g/dL (6.4-8.2) L [facility] ALBUMIN 2.3 g/dL (3.2-4.5) L [facility] GLOBULIN 3.1 g/dL (2.7-4.3) [facility] ALB/GLOB RATIO 0.7 RATIO [facility] BILIRUBIN,TOTAL 0.5 mg/dL (0.0-1.0) [facility] PLEASE NOTE:Total bilirubin results may be falselyelevated in patients taking Eltrombopag. BILIRUBIN,CONJUGATED 0.3 mg/dL (0.0-0.3) [facility] BILIRUBIN,UNCONJ. 0.2 mg/dL (0.0-0.7) [facility] ALKALINE PHOSPHATASE 105 U/L (45-117) [facility] AST (SGOT) 41 U/L (11-39) H [facility] ALT (SGPT) 33 U/L (12-78) [facility] ID Date Data Source [id number] 05/07/2020 08:01:54 AM EDT [facility] Name Value Range Interpretation Code Description Data Apurva rce(s) Supporting Document(s) SODIUM 138 mmol/L (136-145) [facility] POTASSIUM 3.8 mmol/L (3.6-5.2) [facility] CHLORIDE 104 mmol/L (100-108) [facility] CO2 24 mmol/L (22-31) [facility] ANION GAP 10 mmol/L (7-16) [facility] UREA NITROGEN 5 mg/dL (7-24) L [facility] CREATININE 0.80 mg/dL (0.60-1.00) [facility] BUN/CREAT RATIO 6.3 RATIO (10.0-20.0) L [facility] GLUCOSE 98 mg/dL (70-99) [facility] CALCIUM 8.3 mg/dL (8.4-10.2) L [facility] GFR >60 ml/min/1.73m2 (>59) [facility] GFR ( AMER) >60 ml/min/1.73m2 (>59) [facility] GFR INTERPRETATION [facility] --NORMAL KIDNEY FUNCTION OR MILD DISEASE - GFR >OR= 60CHRONIC KIDNEY DISEASE - GFR 15 - 59RENAL FAILURE - GFR <15 Est. GFR calculation based on the MDRDstudy equation, which assumes a steadystate for creatinine. Est. GFR should notbe used for medication dosing. ID Date Data Source [id number] 05/07/2020 07:29:24 AM EDT [facility] Name Value Range Interpretation Code Description Data Apurva rce(s) Supporting Document(s) APTT 38.9 s (22.0-34.3) H [facility] ID Date Data Source [id number] 05/07/2020 07:18:03 AM EDT [facility] Name Value Range Interpretation Code Description Data Apurva rce(s) Supporting Document(s) WBC 9.1 10*3/uL (4.1-11.0) [facility] [place] RBC 2.71 10*6/uL (4.00-5.40) L [facility] HGB 8.6 g/dL (12.0-16.0) L [facility] HCT 25.9 % (36.0-47.0) L [facility] MCV 95.5 fL (80.0-95.0) H [facility] MCH 31.7 pg (27.0-32.0) [facility] MCHC 33.2 g/dL (32.0-36.0) [facility] RDW 16.8 % (10.5-14.5) H [facility] PLT 448 10*3/uL (150-450) [facility] MPV 9.8 fL (7.1-10.7) [facility] NEUT % 68.9 % (35.0-75.0) [facility] LYMPH % 18.3 % (16.0-52.0) [facility] MONO % 9.2 % (0.0-8.0) H [facility] EOS % 2.5 % (0.0-5.0) [facility] BASO % 1.1 % (0.0-4.0) [facility] NEUT # 6.2 10*3/uL (1.8-7.7) [facility] LYMPH # 1.7 10*3/uL (1.2-4.8) [facility] MONO # 0.8 10*3/uL (0.0-0.8) [facility] Eosinophils [#/volume] in Blood by Automated count 0.2 10*3/uL (0.0-0 .5) [facility] STEIN BASO # 0.1 10*3/uL (0.0-0.2) [facility] ID Date Data Source [id number] 05/06/2020 05:45:01 PM EDT [facility] Name Value Range Interpretation Code Description Data Apurva rce(s) Supporting Document(s) HGB 9.2 g/dL (12.0-16.0) L [facility] HCT 28.2 % (36.0-47.0) L [facility] ID Date Data Source [id number] 05/08/2020 04:04:00 PM EDT [facility] [id number] [place], [place] [address]LXUBDLU NAME: ALEX JAMESDATE OF : 2REPORT: DISCHARGE SUMMARYPATIENT NUMBER: [id number] STATUS: IPMEDICAL RECORD NUMBER: [id number] OF ADMISSION: 04/25/2020DATE OF DISCHARGE: 05/06/2020ROOM: 00DISCHARGE/TRANSFER [...] where she is. Shethinks she is in [place]. Otherwise, she will be sent upstairs with asitter. She is to continue on the thiamine. GI will continue to followher.DICTATED BY: WADE Elizabethictated: 05/06/2020 12:51DT: 05/06/2020 13:34Job #: [id number]: [facility] enerated reports are notconfirmed or authenticated unless they are signed by the providerElectronically Authenticated by:LOR PELAEZ MD On 05/08/2020 04:04 PM EDT Name Value Range Interpretation Code Description Data Apurva rce(s) Supporting Document(s) ID Date Data Source [id number] 05/06/2020 11:09:23 AM EDT [facility] Name Value Range Interpretation Code Description Data Apurva rce(s) Supporting Document(s) APTT 57.0 s (22.0-34.3) H [facility] ID Date Data Source [id number] 05/06/2020 04:42:35 AM EDT [facility] Name Value Range Interpretation Code Description Data Apurva rce(s) Supporting Document(s) WBC 8.3 10*3/uL (4.1-11.0) [facility] [place] RBC 2.93 10*6/uL (4.00-5.40) L [facility] HGB 9.0 g/dL (12.0-16.0) L [facility] HCT 27.7 % (36.0-47.0) L [facility] MCV 94.7 fL (80.0-95.0) [facility] MCH 30.8 pg (27.0-32.0) [facility] MCHC 32.5 g/dL (32.0-36.0) [facility] RDW 17.0 % (10.5-14.5) H [facility] PLT 490 10*3/uL (150-450) H [facility] MPV 8.7 fL (7.1-10.7) [facility] ID Date Data Source [id number] 05/06/2020 04:53:50 AM EDT [facility] Name Value Range Interpretation Code Description Data Apurva rce(s) Supporting Document(s) APTT 60.8 s (22.0-34.3) H [facility] ID Date Data Source [id number] 05/06/2020 03:29:44 AM EDT [facility] Name Value Range Interpretation Code Description Data Apurva rce(s) Supporting Document(s) PHOSPHORUS 3.0 mg/dL (2.5-4.5) [facility] ID Date Data Source [id number] 05/06/2020 03:29:44 AM EDT [facility] Name Value Range Interpretation Code Description Data Apurva rce(s) Supporting Document(s) SODIUM 142 mmol/L (136-145) [facility] POTASSIUM 3.6 mmol/L (3.6-5.2) [facility] CHLORIDE 107 mmol/L (100-108) [facility] CO2 27 mmol/L (22-31) [facility] ANION GAP 8 mmol/L (7-16) [facility] UREA NITROGEN 5 mg/dL (7-24) L [facility] CREATININE 0.74 mg/dL (0.60-1.00) [facility] BUN/CREAT RATIO 6.8 RATIO (10.0-20.0) L [facility] GLUCOSE 102 mg/dL (70-99) H [facility] CALCIUM 8.3 mg/dL (8.4-10.2) L [facility] TOTAL PROTEIN 5.8 g/dL (6.4-8.2) L [facility] ALBUMIN 2.5 g/dL (3.2-4.5) L [facility] GLOBULIN 3.3 g/dL (2.7-4.3) [facility] ALB/GLOB RATIO 0.8 RATIO [facility] ALKALINE PHOSPHATASE 120 U/L (45-117) H [facility] BILIRUBIN,TOTAL 0.4 mg/dL (0.0-1.0) [facility] PLEASE NOTE:Total bilirubin results may be falselyelevated in patients taking Eltrombopag. AST (SGOT) 51 U/L (11-39) H [facility] ALT (SGPT) 40 U/L (12-78) [facility] GFR >60 ml/min/1.73m2 (>59) [facility] GFR ( AMER) >60 ml/min/1.73m2 (>59) [facility] GFR INTERPRETATION [facility] --NORMAL KIDNEY FUNCTION OR MILD DISEASE - GFR >OR= 60CHRONIC KIDNEY DISEASE - GFR 15 - 59RENAL FAILURE - GFR <15 Est. GFR calculation based on the MDRDstudy equation, which assumes a steadystate for creatinine. Est. GFR should notbe used for medication dosing. ID Date Data Source [id number] 05/06/2020 03:29:44 AM EDT [facility] Name Value Range Interpretation Code Description Data Apurva rce(s) Supporting Document(s) MAGNESIUM 1.8 mg/dL (1.7-2.4) [facility] ID Date Data Source [id number] 05/06/2020 03:27:19 AM EDT [facility] Name Value Range Interpretation Code Description Data Apurva rce(s) Supporting Document(s) CALCIUM IONIZED 5.04 mg/dL (4.64-5.28) [facility] IONIZED CALCIUM NORMALIZED TO PH 7.40 AN D 37 DEGREES C. ID Date Data Source [id number] 05/06/2020 02:33:31 AM EDT [facility] Name Value Range Interpretation Code Description Data Apurva rce(s) Supporting Document(s) PT 11.9 s (9.2-11.9) [facility] INR 1.14 [facility] SUGGESTED THERAPEUTIC RANGES USING INR F ORSTABILIZED ANTICOAGULATED PATIENTS:STANDARD DOSE THERAPY INR 2.0-3.0 DVT, PE, PREVENT DVT OR EMBOLISMHIGH DOSE THERAPY INR 2.5-3.5 PREVENT EMBOLISM FROM MECHANICAL HEART VALVE ID Date Data Source [id number] 05/05/2020 11:02:52 PM EDT [facility] Name Value Range Interpretation Code Description Data Apurva rce(s) Supporting Document(s) WBC 8.7 10*3/uL (4.1-11.0) [facility] [place] RBC 2.83 10*6/uL (4.00-5.40) L [facility] HGB 9.2 g/dL (12.0-16.0) L [facility] HCT 27.1 % (36.0-47.0) L [facility] MCV 95.8 fL (80.0-95.0) H [facility] MCH 32.6 pg (27.0-32.0) H [facility] MCHC 34.0 g/dL (32.0-36.0) [facility] RDW 17.0 % (10.5-14.5) H [facility] PLT 447 10*3/uL (150-450) [facility] MPV 8.5 fL (7.1-10.7) [facility] ID Date Data Source [id number] 05/05/2020 09:17:54 PM EDT [facility] Name Value Range Interpretation Code Description Data Apurva rce(s) Supporting Document(s) APTT 54.7 s (22.0-34.3) H [facility] ID Date Data Source [id number] 05/05/2020 05:30:38 PM EDT [facility] Name Value Range Interpretation Code Description Data Apurva rce(s) Supporting Document(s) WBC 7.5 10*3/uL (4.1-11.0) [facility] [place] RBC 3.00 10*6/uL (4.00-5.40) L [facility] HGB 9.2 g/dL (12.0-16.0) L [facility] HCT 28.8 % (36.0-47.0) L [facility] MCV 96.2 fL (80.0-95.0) H [facility] MCH 30.7 pg (27.0-32.0) [facility] MCHC 32.0 g/dL (32.0-36.0) [facility] RDW 17.0 % (10.5-14.5) H [facility] PLT 461 10*3/uL (150-450) H [facility] MPV 8.9 fL (7.1-10.7) [facility] ID Date Data Source [id number] 05/05/2020 03:03:15 PM EDT [facility] Name Value Range Interpretation Code Description Data Apurva rce(s) Supporting Document(s) APTT 54.6 s (22.0-34.3) H [facility] ID Date Data Source [id number] 05/05/2020 11:11:21 AM EDT [facility] Name Value Range Interpretation Code Description Data Apurva rce(s) Supporting Document(s) PT 11.8 s (9.2-11.9) [facility] INR 1.13 [facility] SUGGESTED THERAPEUTIC RANGES USING INR F ORSTABILIZED ANTICOAGULATED PATIENTS:STANDARD DOSE THERAPY INR 2.0-3.0 DVT, PE, PREVENT DVT OR EMBOLISMHIGH DOSE THERAPY INR 2.5-3.5 PREVENT EMBOLISM FROM MECHANICAL HEART VALVE ID Date Data Source [id number] 05/05/2020 11:01:23 AM EDT [facility] Name Value Range Interpretation Code Description Data Apurva rce(s) Supporting Document(s) WBC 7.3 10*3/uL (4.1-11.0) [facility] [place] RBC 2.99 10*6/uL (4.00-5.40) L [facility] HGB 9.5 g/dL (12.0-16.0) L [facility] HCT 28.8 % (36.0-47.0) L [facility] MCV 96.3 fL (80.0-95.0) H [facility] MCH 31.9 pg (27.0-32.0) [facility] MCHC 33.1 g/dL (32.0-36.0) [facility] RDW 17.2 % (10.5-14.5) H [facility] PLT 446 10*3/uL (150-450) [facility] MPV 8.9 fL (7.1-10.7) [facility] ID Date Data Source [id number] 05/05/2020 09:36:56 AM EDT [facility] Name Value Range Interpretation Code Description Data Apurva rce(s) Supporting Document(s) SODIUM 144 mmol/L (136-145) [facility] POTASSIUM 3.9 mmol/L (3.6-5.2) [facility] CHLORIDE 108 mmol/L (100-108) [facility] CO2 28 mmol/L (22-31) [facility] ANION GAP 8 mmol/L (7-16) [facility] UREA NITROGEN 5 mg/dL (7-24) L [facility] CREATININE 0.83 mg/dL (0.60-1.00) [facility] BUN/CREAT RATIO 6.0 RATIO (10.0-20.0) L [facility] GLUCOSE 117 mg/dL (70-99) H [facility] CALCIUM 8.1 mg/dL (8.4-10.2) L [facility] GFR >60 ml/min/1.73m2 (>59) [facility] GFR ( AMER) >60 ml/min/1.73m2 (>59) [facility] GFR INTERPRETATION [facility] --NORMAL KIDNEY FUNCTION OR MILD DISEASE - GFR >OR= 60CHRONIC KIDNEY DISEASE - GFR 15 - 59RENAL FAILURE - GFR <15 Est. GFR calculation based on the MDRDstudy equation, which assumes a steadystate for creatinine. Est. GFR should notbe used for medication dosing. ID Date Data Source [id number] 05/05/2020 09:15:28 AM EDT [facility] Name Value Range Interpretation Code Description Data Apurva rce(s) Supporting Document(s) APTT 55.7 s (22.0-34.3) H [facility] ID Date Data Source [id number] 05/05/2020 03:35:09 AM EDT [facility] Name Value Range Interpretation Code Description Data Apurva rce(s) Supporting Document(s) CALCIUM IONIZED 4.88 mg/dL (4.64-5.28) [facility] IONIZED CALCIUM NORMALIZED TO PH 7.40 AN D 37 DEGREES C. ID Date Data Source [id number] 05/05/2020 03:33:59 AM EDT [facility] Name Value Range Interpretation Code Description Data Apurva rce(s) Supporting Document(s) PHOSPHORUS 2.8 mg/dL (2.5-4.5) [facility] ID Date Data Source [id number] 05/05/2020 03:33:59 AM EDT [facility] Name Value Range Interpretation Code Description Data Apurva rce(s) Supporting Document(s) MAGNESIUM 2.0 mg/dL (1.7-2.4) [facility] ID Date Data Source [id number] 05/05/2020 03:33:59 AM EDT [facility] Name Value Range Interpretation Code Description Data Apurva rce(s) Supporting Document(s) SODIUM 144 mmol/L (136-145) [facility] POTASSIUM 4.0 mmol/L (3.6-5.2) [facility] CHLORIDE 108 mmol/L (100-108) [facility] CO2 28 mmol/L (22-31) [facility] ANION GAP 8 mmol/L (7-16) [facility] UREA NITROGEN 6 mg/dL (7-24) L [facility] CREATININE 0.90 mg/dL (0.60-1.00) [facility] BUN/CREAT RATIO 6.7 RATIO (10.0-20.0) L [facility] GLUCOSE 121 mg/dL (70-99) H [facility] CALCIUM 8.2 mg/dL (8.4-10.2) L [facility] TOTAL PROTEIN 5.8 g/dL (6.4-8.2) L [facility] ALBUMIN 2.5 g/dL (3.2-4.5) L [facility] GLOBULIN 3.3 g/dL (2.7-4.3) [facility] ALB/GLOB RATIO 0.8 RATIO [facility] ALKALINE PHOSPHATASE 121 U/L (45-117) H [facility] BILIRUBIN,TOTAL 0.6 mg/dL (0.0-1.0) [facility] PLEASE NOTE:Total bilirubin results may be falselyelevated in patients taking Eltrombopag. AST (SGOT) 55 U/L (11-39) H [facility] ALT (SGPT) 47 U/L (12-78) [facility] GFR >60 ml/min/1.73m2 (>59) [facility] GFR ( AMER) >60 ml/min/1.73m2 (>59) [facility] GFR INTERPRETATION [facility] --NORMAL KIDNEY FUNCTION OR MILD DISEASE - GFR >OR= 60CHRONIC KIDNEY DISEASE - GFR 15 - 59RENAL FAILURE - GFR <15 Est. GFR calculation based on the MDRDstudy equation, which assumes a steadystate for creatinine. Est. GFR should notbe used for medication dosing. ID Date Data Source [id number] 05/05/2020 02:41:39 AM EDT [facility] Name Value Range Interpretation Code Description Data Apurva rce(s) Supporting Document(s) APTT 86.3 s (22.0-34.3) H [facility] ID Date Data Source [id number] 05/05/2020 02:33:43 AM EDT [facility] Name Value Range Interpretation Code Description Data Apurva rce(s) Supporting Document(s) WBC 7.1 10*3/uL (4.1-11.0) [facility] [place] RBC 3.00 10*6/uL (4.00-5.40) L [facility] HGB 9.3 g/dL (12.0-16.0) L [facility] HCT 28.7 % (36.0-47.0) L [facility] MCV 95.5 fL (80.0-95.0) H [facility] MCH 30.9 pg (27.0-32.0) [facility] MCHC 32.4 g/dL (32.0-36.0) [facility] RDW 17.5 % (10.5-14.5) H [facility] PLT 437 10*3/uL (150-450) [facility] MPV 8.5 fL (7.1-10.7) [facility] ID Date Data Source [id number] 05/04/2020 08:27:24 PM EDT [facility] Name Value Range Interpretation Code Description Data Apurva rce(s) Supporting Document(s) SODIUM 142 mmol/L (136-145) [facility] POTASSIUM 3.8 mmol/L (3.6-5.2) [facility] CHLORIDE 105 mmol/L (100-108) [facility] CO2 30 mmol/L (22-31) [facility] ANION GAP 7 mmol/L (7-16) [facility] UREA NITROGEN 6 mg/dL (7-24) L [facility] CREATININE 0.93 mg/dL (0.60-1.00) [facility] BUN/CREAT RATIO 6.5 RATIO (10.0-20.0) L [facility] GLUCOSE 114 mg/dL (70-99) H [facility] CALCIUM 8.4 mg/dL (8.4-10.2) [facility] GFR >60 ml/min/1.73m2 (>59) [facility] GFR ( AMER) >60 ml/min/1.73m2 (>59) [facility] --NORMAL KIDNEY FUNCTION OR MILD DISEASE - GFR >OR= 60CHRONIC KIDNEY DISEASE - GFR 15 - 59RENAL FAILURE - GFR <15 Est. GFR calculation based on the MDRDstudy equation, which assumes a steadystate for creatinine. Est. GFR should notbe used for medication dosing. ID Date Data Source [id number] 05/04/2020 04:56:44 PM EDT [facility] Name Value Range Interpretation Code Description Data Apurva rce(s) Supporting Document(s) APTT 64.9 s (22.0-34.3) H [facility] ID Date Data Source [id number] 05/04/2020 02:51:38 PM EDT [facility] Name Value Range Interpretation Code Description Data Apurva rce(s) Supporting Document(s) SODIUM 143 mmol/L (136-145) [facility] POTASSIUM 4.3 mmol/L (3.6-5.2) [facility] CHLORIDE 105 mmol/L (100-108) [facility] CO2 31 mmol/L (22-31) [facility] ANION GAP 7 mmol/L (7-16) [facility] UREA NITROGEN 6 mg/dL (7-24) L [facility] CREATININE 0.93 mg/dL (0.60-1.00) [facility] BUN/CREAT RATIO 6.5 RATIO (10.0-20.0) L [facility] GLUCOSE 113 mg/dL (70-99) H [facility] CALCIUM 8.6 mg/dL (8.4-10.2) [facility] GFR >60 ml/min/1.73m2 (>59) [facility] GFR ( AMER) >60 ml/min/1.73m2 (>59) [facility] GFR INTERPRETATION [facility] --NORMAL KIDNEY FUNCTION OR MILD DISEASE - GFR >OR= 60CHRONIC KIDNEY DISEASE - GFR 15 - 59RENAL FAILURE - GFR <15 Est. GFR calculation based on the MDRDstudy equation, which assumes a steadystate for creatinine. Est. GFR should notbe used for medication dosing. ID Date Data Source [id number] 05/04/2020 10:31:51 AM EDT [facility] Name Value Range Interpretation Code Description Data Apurva rce(s) Supporting Document(s) PHOSPHORUS 3.3 mg/dL (2.5-4.5) [facility] ID Date Data Source [id number] 05/04/2020 10:31:51 AM EDT [facility] Name Value Range Interpretation Code Description Data Apurva rce(s) Supporting Document(s) SODIUM 143 mmol/L (136-145) [facility] POTASSIUM 3.7 mmol/L (3.6-5.2) [facility] CHLORIDE 105 mmol/L (100-108) [facility] CO2 33 mmol/L (22-31) H [facility] ANION GAP 5 mmol/L (7-16) L [facility] UREA NITROGEN 5 mg/dL (7-24) L [facility] CREATININE 0.78 mg/dL (0.60-1.00) [facility] BUN/CREAT RATIO 6.4 RATIO (10.0-20.0) L [facility] GLUCOSE 98 mg/dL (70-99) [facility] CALCIUM 8.6 mg/dL (8.4-10.2) [facility] GFR >60 ml/min/1.73m2 (>59) [facility] GFR ([facility]) >60 ml/min/1.73m2 (>59) [facility] GFR INTERPRETATION [facility] --NORMAL KIDNEY FUNCTION OR MILD DISEASE - GFR >OR= 60CHRONIC KIDNEY DISEASE - GFR 15 - 59RENAL FAILURE - GFR <15 Est. GFR calculation based on the MDRDstudy equation, which assumes a steadystate for creatinine. Est. GFR should notbe used for medication dosing. ID Date Data Source [id number] 05/04/2020 10:17:46 AM EDT [facility] Name Value Range Interpretation Code Description Data Apurva rce(s) Supporting Document(s) POTASSIUM 3.7 mmol/L (3.6-5.2) [facility] ID Date Data Source [id number] 05/04/2020 10:01:01 AM EDT [facility] Name Value Range Interpretation Code Description Data Apurva rce(s) Supporting Document(s) APTT 62.5 s (22.0-34.3) [facility] ID Date Data Source [id number] 05/04/2020 02:52:18 AM EDT [facility] Name Value Range Interpretation Code Description Data Apurva rce(s) Supporting Document(s) CALCIUM IONIZED 4.92 mg/dL (4.64-5.28) [facility] IONIZED CALCIUM NORMALIZED TO PH 7.40 AN D 37 DEGREES C. ID Date Data Source [id number] 05/04/2020 02:49:43 AM EDT [facility] Name Value Range Interpretation Code Description Data Apurva rce(s) Supporting Document(s) PHOSPHORUS 3.6 mg/dL (2.5-4.5) [facility] ID Date Data Source [id number] 05/04/2020 02:49:43 AM EDT [facility] Name Value Range Interpretation Code Description Data Apurva rce(s) Supporting Document(s) MAGNESIUM 2.7 mg/dL (1.7-2.4) [facility] ID Date Data Source [id number] 05/04/2020 02:49:43 AM EDT [facility] Name Value Range Interpretation Code Description Data Apurva rce(s) Supporting Document(s) SODIUM 146 mmol/L (136-145) [facility] POTASSIUM 3.7 mmol/L (3.6-5.2) [facility] CHLORIDE 106 mmol/L (100-108) [facility] CO2 32 mmol/L (22-31) [facility] ANION GAP 8 mmol/L (7-16) [facility] UREA NITROGEN 4 mg/dL (7-24) L [facility] CREATININE 0.79 mg/dL (0.60-1.00) [facility] BUN/CREAT RATIO 5.1 RATIO (10.0-20.0) L [facility] GLUCOSE 102 mg/dL (70-99) [facility] CALCIUM 8.5 mg/dL (8.4-10.2) [facility] TOTAL PROTEIN 5.9 g/dL (6.4-8.2) L [facility] ALBUMIN 2.6 g/dL (3.2-4.5) L [facility] GLOBULIN 3.3 g/dL (2.7-4.3) [facility] ALB/GLOB RATIO 0.8 RATIO [facility] ALKALINE PHOSPHATASE 130 U/L (45-117) [facility] BILIRUBIN,TOTAL 0.7 mg/dL (0.0-1.0) [facility] PLEASE NOTE:Total bilirubin results may be falselyelevated in patients taking Eltrombopag. AST (SGOT) 46 U/L (11-39) [facility] ALT (SGPT) 52 U/L (12-78) [facility] GFR >60 ml/min/1.73m2 (>59) [facility] GFR ( AMER) >60 ml/min/1.73m2 (>59) [facility] GFR INTERPRETATION [facility] --NORMAL KIDNEY FUNCTION OR MILD DISEASE - GFR >OR= 60CHRONIC KIDNEY DISEASE - GFR 15 - 59RENAL FAILURE - GFR <15 Est. GFR calculation based on the MDRDstudy equation, which assumes a steadystate for creatinine. Est. GFR should notbe used for medication dosing. ID Date Data Source [id number] 05/04/2020 02:19:09 AM EDT [facility] Name Value Range Interpretation Code Description Data Apurva rce(s) Supporting Document(s) APTT 43.3 s (22.0-34.3) [facility] ID Date Data Source [id number] 05/04/2020 02:06:17 AM EDT [facility] Name Value Range Interpretation Code Description Data Apurva rce(s) Supporting Document(s) WBC 6.7 10*3/uL (4.1-11.0) [facility] RBC 3.22 10*6/uL (4.00-5.40) L [facility] HGB 9.9 g/dL (12.0-16.0) L [facility] HCT 30.8 % (36.0-47.0) [facility] MCV 95.6 fL (80.0-95.0) [facility] MCH 30.6 pg (27.0-32.0) [facility] MCHC 32.0 g/dL (32.0-36.0) [facility] RDW 16.9 % (10.5-14.5) [facility] PLT 425 10*3/uL (150-450) [facility] MPV 8.5 fL (7.1-10.7) [facility] ID Date Data Source [id number] 05/03/2020 09:26:23 PM EDT [facility] Name Value Range Interpretation Code Description Data Apurva rce(s) Supporting Document(s) PHOSPHORUS 3.7 mg/dL (2.5-4.5) [facility] ID Date Data Source [id number] 05/03/2020 09:26:23 PM EDT [facility] Name Value Range Interpretation Code Description Data Apurva rce(s) Supporting Document(s) MAGNESIUM 1.7 mg/dL (1.7-2.4) [facility] ID Date Data Source [id number] 05/03/2020 09:26:23 PM EDT [facility] Name Value Range Interpretation Code Description Data Apurva rce(s) Supporting Document(s) SODIUM 147 mmol/L (136-145) H [facility] POTASSIUM 4.1 mmol/L (3.6-5.2) [facility] CHLORIDE 107 mmol/L (100-108) [facility] CO2 32 mmol/L (22-31) [facility] ANION GAP 8 mmol/L (7-16) [facility] UREA NITROGEN 4 mg/dL (7-24) L [facility] CREATININE 0.78 mg/dL (0.60-1.00) [facility] BUN/CREAT RATIO 5.1 RATIO (10.0-20.0) L [facility] GLUCOSE 94 mg/dL (70-99) [facility] CALCIUM 8.4 mg/dL (8.4-10.2) [facility] GFR >60 ml/min/1.73m2 (>59) [facility] GFR ( AMER) >60 ml/min/1.73m2 (>59) [facility] GFR INTERPRETATION [facility] --NORMAL KIDNEY FUNCTION OR MILD DISEASE - GFR >OR= 60CHRONIC KIDNEY DISEASE - GFR 15 - 59RENAL FAILURE - GFR <15 Est. GFR calculation based on the MDRDstudy equation, which assumes a steadystate for creatinine. Est. GFR should notbe used for medication dosing. ID Date Data Source [id number] 05/03/2020 02:35:10 PM EDT [facility] Name Value Range Interpretation Code Description Data Apurva rce(s) Supporting Document(s) PHOSPHORUS 3.8 mg/dL (2.5-4.5) [facility] ID Date Data Source [id number] 05/03/2020 02:35:10 PM EDT [facility] Name Value Range Interpretation Code Description Data Apurva rce(s) Supporting Document(s) MAGNESIUM 1.8 mg/dL (1.7-2.4) [facility] ID Date Data Source [id number] 05/03/2020 02:35:10 PM EDT [facility] Name Value Range Interpretation Code Description Data Apurva rce(s) Supporting Document(s) SODIUM 147 mmol/L (136-145) H [facility] POTASSIUM 3.5 mmol/L (3.6-5.2) L [facility] CHLORIDE 107 mmol/L (100-108) [facility] CO2 31 mmol/L (22-31) [facility] ANION GAP 9 mmol/L (7-16) [facility] UREA NITROGEN 4 mg/dL (7-24) L [facility] CREATININE 0.79 mg/dL (0.60-1.00) [facility] BUN/CREAT RATIO 5.1 RATIO (10.0-20.0) L [facility] GLUCOSE 96 mg/dL (70-99) [facility] CALCIUM 7.8 mg/dL (8.4-10.2) L [facility] GFR >60 ml/min/1.73m2 (>59) [facility] GFR ([facility] AMER) >60 ml/min/1.73m2 (>59) [facility] GFR INTERPRETATION [facility] --NORMAL KIDNEY FUNCTION OR MILD DISEASE - GFR >OR= 60CHRONIC KIDNEY DISEASE - GFR 15 - 59RENAL FAILURE - GFR <15 Est. GFR calculation based on the MDRDstudy equation, which assumes a steadystate for creatinine. Est. GFR should notbe used for medication dosing. ID Date Data Source [id number] 05/03/2020 11:08:49 AM EDT [facility] Name Value Range Interpretation Code Description Data Apurva rce(s) Supporting Document(s) AMMONIA <10 umol/L (11-32) L [facility] ID Date Data Source [id number] 05/03/2020 10:51:22 AM EDT [facility] Name Value Range Interpretation Code Description Data Apurva rce(s) Supporting Document(s) TSH,ULTRASENSITIVE @ 3.392 mIU/L (0.360-4.170) [facility] PERFORMED AT [address] [place] [id number] ID Date Data Source [id number] 05/03/2020 08:56:50 AM EDT [facility] Name Value Range Interpretation Code Description Data Apurva rce(s) Supporting Document(s) SODIUM 147 mmol/L (136-145) H [facility] POTASSIUM 4.0 mmol/L (3.6-5.2) [facility] CHLORIDE 108 mmol/L (100-108) [facility] CO2 31 mmol/L (22-31) [facility] ANION GAP 8 mmol/L (7-16) [facility] UREA NITROGEN 4 mg/dL (7-24) L [facility] CREATININE 0.78 mg/dL (0.60-1.00) [facility] BUN/CREAT RATIO 5.1 RATIO (10.0-20.0) L [facility] GLUCOSE 106 mg/dL (70-99) H [facility] CALCIUM 8.2 mg/dL (8.4-10.2) L [facility] GFR >60 ml/min/1.73m2 (>59) [facility] GFR ( AMER) >60 ml/min/1.73m2 (>59) [facility] GFR INTERPRETATION [facility] --NORMAL KIDNEY FUNCTION OR MILD DISEASE - GFR >OR= 60CHRONIC KIDNEY DISEASE - GFR 15 - 59RENAL FAILURE - GFR <15 Est. GFR calculation based on the MDRDstudy equation, which assumes a steadystate for creatinine. Est. GFR should notbe used for medication dosing. ID Date Data Source [id number] 05/03/2020 08:56:50 AM EDT [facility] Name Value Range Interpretation Code Description Data Apurva rce(s) Supporting Document(s) MAGNESIUM 1.8 mg/dL (1.7-2.4) [facility] ID Date Data Source [id number] 05/03/2020 08:56:50 AM EDT [facility] Name Value Range Interpretation Code Description Data Apurva rce(s) Supporting Document(s) PHOSPHORUS 3.4 mg/dL (2.5-4.5) [facility] ID Date Data Source [id number] 05/03/2020 02:34:02 AM EDT [facility] Name Value Range Interpretation Code Description Data Apurva rce(s) Supporting Document(s) CALCIUM IONIZED 5.04 mg/dL (4.64-5.28) [facility] IONIZED CALCIUM NORMALIZED TO PH 7.40 AN D 37 DEGREES C. ID Date Data Source [id number] 05/03/2020 02:27:36 AM EDT [facility] Name Value Range Interpretation Code Description Data Apurva rce(s) Supporting Document(s) PHOSPHORUS 3.7 mg/dL (2.5-4.5) [facility] ID Date Data Source [id number] 05/03/2020 02:27:36 AM EDT [facility] Name Value Range Interpretation Code Description Data Apurva rce(s) Supporting Document(s) MAGNESIUM 1.8 mg/dL (1.7-2.4) [facility] ID Date Data Source [id number] 05/03/2020 02:27:36 AM EDT [facility] Name Value Range Interpretation Code Description Data Apurva rce(s) Supporting Document(s) SODIUM 147 mmol/L (136-145) H [facility] POTASSIUM 3.7 mmol/L (3.6-5.2) [facility] CHLORIDE 107 mmol/L (100-108) [facility] CO2 33 mmol/L (22-31) [facility] ANION GAP 7 mmol/L (7-16) [facility] UREA NITROGEN 4 mg/dL (7-24) L [facility] CREATININE 0.76 mg/dL (0.60-1.00) [facility] BUN/CREAT RATIO 5.3 RATIO (10.0-20.0) L [facility] GLUCOSE 91 mg/dL (70-99) [facility] CALCIUM 8.2 mg/dL (8.4-10.2) L [facility] TOTAL PROTEIN 5.7 g/dL (6.4-8.2) L [facility] ALBUMIN 2.6 g/dL (3.2-4.5) L [facility] GLOBULIN 3.1 g/dL (2.7-4.3) [facility] ALB/GLOB RATIO 0.8 RATIO [facility] ALKALINE PHOSPHATASE 117 U/L (45-117) [facility] BILIRUBIN,TOTAL 0.8 mg/dL (0.0-1.0) [facility] PLEASE NOTE:Total bilirubin results may be falselyelevated in patients taking Eltrombopag. AST (SGOT) 55 U/L (11-39) H [facility] ALT (SGPT) 62 U/L (12-78) [facility] GFR >60 ml/min/1.73m2 (>59) [facility] GFR ( AMER) >60 ml/min/1.73m2 (>59) [facility] GFR INTERPRETATION [facility] --NORMAL KIDNEY FUNCTION OR MILD DISEASE - GFR >OR= 60CHRONIC KIDNEY DISEASE - GFR 15 - 59RENAL FAILURE - GFR <15 Est. GFR calculation based on the MDRDstudy equation, which assumes a steadystate for creatinine. Est. GFR should notbe used for medication dosing. ID Date Data Source [id number] 05/03/2020 01:59:12 AM EDT [facility] Name Value Range Interpretation Code Description Data Apurva rce(s) Supporting Document(s) APTT 70.7 s (22.0-34.3) [facility] ID Date Data Source [id number] 05/03/2020 01:42:52 AM EDT [facility] Name Value Range Interpretation Code Description Data Apurva rce(s) Supporting Document(s) WBC 6.3 10*3/uL (4.1-11.0) [facility] [place] RBC 3.21 10*6/uL (4.00-5.40) L [facility] HGB 9.8 g/dL (12.0-16.0) L [facility] HCT 30.7 % (36.0-47.0) L [facility] MCV 95.4 fL (80.0-95.0) [facility] MCH 30.6 pg (27.0-32.0) [facility] MCHC 32.0 g/dL (32.0-36.0) [facility] RDW 17.0 % (10.5-14.5) [facility] PLT 341 10*3/uL (150-450) [facility] MPV 8.2 fL (7.1-10.7) [facility] ID Date Data Source [id number] 05/02/2020 09:01:03 PM EDT [facility] Name Value Range Interpretation Code Description Data Apurva rce(s) Supporting Document(s) PHOSPHORUS 3.5 mg/dL (2.5-4.5) [facility] ID Date Data Source [id number] 05/02/2020 09:01:03 PM EDT [facility] Name Value Range Interpretation Code Description Data Apurva rce(s) Supporting Document(s) MAGNESIUM 2.0 mg/dL (1.7-2.4) [facility] ID Date Data Source [id number] 05/02/2020 09:01:03 PM EDT [facility] Name Value Range Interpretation Code Description Data Apurva rce(s) Supporting Document(s) SODIUM 147 mmol/L (136-145) H [facility] POTASSIUM 3.6 mmol/L (3.6-5.2) [facility] CHLORIDE 108 mmol/L (100-108) [facility] CO2 33 mmol/L (22-31) [facility] ANION GAP 6 mmol/L (7-16) L [facility] UREA NITROGEN 4 mg/dL (7-24) L [facility] CREATININE 0.75 mg/dL (0.60-1.00) [facility] BUN/CREAT RATIO 5.3 RATIO (10.0-20.0) L [facility] GLUCOSE 101 mg/dL (70-99) H [facility] CALCIUM 8.3 mg/dL (8.4-10.2) L [facility] GFR >60 ml/min/1.73m2 (>59) [facility] GFR ( AMER) >60 ml/min/1.73m2 (>59) [facility] GFR INTERPRETATION [facility] --NORMAL KIDNEY FUNCTION OR MILD DISEASE - GFR >OR= 60CHRONIC KIDNEY DISEASE - GFR 15 - 59RENAL FAILURE - GFR <15 Est. GFR calculation based on the MDRDstudy equation, which assumes a steadystate for creatinine. Est. GFR should notbe used for medication dosing. ID Date Data Source [id number] 05/02/2020 05:43:53 PM EDT [facility] Name Value Range Interpretation Code Description Data Apurva rce(s) Supporting Document(s) APTT 82.3 s (22.0-34.3) [facility] ID Date Data Source [id number] 05/02/2020 02:28:07 PM EDT [facility] Name Value Range Interpretation Code Description Data Apurva rce(s) Supporting Document(s) WBC 7.3 10*3/uL (4.1-11.0) [facility] [place] RBC 3.09 10*6/uL (4.00-5.40) L [facility] HGB 9.5 g/dL (12.0-16.0) L [facility] HCT 29.7 % (36.0-47.0) [facility] MCV 96.1 fL (80.0-95.0) [facility] MCH 30.7 pg (27.0-32.0) [facility] MCHC 31.9 g/dL (32.0-36.0) [facility] RDW 17.4 % (10.5-14.5) [facility] PLT 307 10*3/uL (150-450) [facility] MPV 8.1 fL (7.1-10.7) [facility] ID Date Data Source [id number] 05/02/2020 02:41:58 PM EDT [facility] Name Value Range Interpretation Code Description Data Apurva rce(s) Supporting Document(s) PHOSPHORUS 3.5 mg/dL (2.5-4.5) [facility] ID Date Data Source [id number] 05/02/2020 02:41:58 PM EDT [facility] Name Value Range Interpretation Code Description Data Apurva rce(s) Supporting Document(s) MAGNESIUM 2.2 mg/dL (1.7-2.4) [facility] ID Date Data Source [id number] 05/02/2020 02:41:58 PM EDT [facility] Name Value Range Interpretation Code Description Data Apurva rce(s) Supporting Document(s) SODIUM 148 mmol/L (136-145) H [facility] POTASSIUM 4.0 mmol/L (3.6-5.2) [facility] CHLORIDE 110 mmol/L (100-108) [facility] CO2 33 mmol/L (22-31) [facility] ANION GAP 5 mmol/L (7-16) L [facility] UREA NITROGEN 3 mg/dL (7-24) L [facility] CREATININE 0.72 mg/dL (0.60-1.00) [facility] BUN/CREAT RATIO 4.2 RATIO (10.0-20.0) L [facility] GLUCOSE 97 mg/dL (70-99) [facility] CALCIUM 8.3 mg/dL (8.4-10.2) L [facility] GFR >60 ml/min/1.73m2 (>59) [facility] GFR ( AMER) >60 ml/min/1.73m2 (>59) [facility] --NORMAL KIDNEY FUNCTION OR MILD DISEASE - GFR >OR= 60CHRONIC KIDNEY DISEASE - GFR 15 - 59RENAL FAILURE - GFR <15 Est. GFR calculation based on the MDRDstudy equation, which assumes a steadystate for creatinine. Est. GFR should notbe used for medication dosing. ID Date Data Source [id number] 05/02/2020 02:45:00 PM EDT [facility] Greg Garrido MA, [place], [place] [address]PATIENT NAME: ALEX JAMESDATE OF : 2REPORT: CONSULTATIONPATIENT NUMBER: [id number] STATUS: :ADDICTION MEDICINE CONSULTDATE OF CONSULTATION: 05/02/2020The patient is a 69-year-old female, [facility] She was reportedly drinking aliter of vodka a day, however, [facility] [...] When the patient's mental status improves, this va underwriter would be happy to complete an addiction medicine consult. However, at this time, that is not feasible.Please contact addiction medicine consult if there are any furtherquestions at [phone] or directly within the hospital at [email or web address]. Should the referring doctor prefer to have an addiction medicine consult completed with medical doctor, please contact us and we will make those arrangements.Thank you for your consultation referral.DICTATED BY: Greg Garrido MA, ANSONACDictated: 05/02/2020 12:49DT: 05/02/2020 12:54Job #: [id number]: [facility] computer generated reports are notconfirmed or authenticated unless they are signed by the providerElectronically Authenticated and Edited by:GREG GARRIDO On 05/02/2020 02:45 PM EDT Name Value Range Interpretation Code Description Data Apurva rce(s) Supporting Document(s) ID Date Data Source [id number] 05/02/2020 11:53:26 AM EDT [facility] Name Value Range Interpretation Code Description Data Apurva rce(s) Supporting Document(s) APTT 77.4 s (22.0-34.3) [facility] ID Date Data Source [id number] 05/02/2020 08:40:17 AM EDT [facility] Name Value Range Interpretation Code Description Data Apurva rce(s) Supporting Document(s) SODIUM 147 mmol/L (136-145) [facility] POTASSIUM 3.5 mmol/L (3.6-5.2) L [facility] CHLORIDE 109 mmol/L (100-108) [facility] CO2 32 mmol/L (22-31) [facility] ANION GAP 6 mmol/L (7-16) L [facility] UREA NITROGEN 3 mg/dL (7-24) L [facility] CREATININE 0.70 mg/dL (0.60-1.00) [facility] BUN/CREAT RATIO 4.3 RATIO (10.0-20.0) L [facility] GLUCOSE 112 mg/dL (70-99) [facility] CALCIUM 8.5 mg/dL (8.4-10.2) [facility] GFR >60 ml/min/1.73m2 (>59) [facility] GFR ( AMER) >60 ml/min/1.73m2 (>59) [facility] GFR INTERPRETATION [facility] --NORMAL KIDNEY FUNCTION OR MILD DISEASE - GFR >OR= 60CHRONIC KIDNEY DISEASE - GFR 15 - 59RENAL FAILURE - GFR <15 Est. GFR calculation based on the MDRDstudy equation, which assumes a steadystate for creatinine. Est. GFR should notbe used for medication dosing. ID Date Data Source [id number] 05/02/2020 08:40:17 AM EDT [facility] Name Value Range Interpretation Code Description Data Apurva rce(s) Supporting Document(s) MAGNESIUM 2.7 mg/dL (1.7-2.4) [facility] ID Date Data Source [id number] 05/02/2020 08:40:17 AM EDT [facility] Name Value Range Interpretation Code Description Data Apurva rce(s) Supporting Document(s) PHOSPHORUS 3.6 mg/dL (2.5-4.5) [facility] ID Date Data Source [id number] 05/02/2020 04:19:18 AM EDT [facility] Name Value Range Interpretation Code Description Data Apurva rce(s) Supporting Document(s) APTT 54.3 s (22.0-34.3) [facility] ID Date Data Source [id number] 05/02/2020 03:03:11 AM EDT [facility] Name Value Range Interpretation Code Description Data Apurva rce(s) Supporting Document(s) CALCIUM IONIZED 4.88 mg/dL (4.64-5.28) [facility] IONIZED CALCIUM NORMALIZED TO PH 7.40 AN D 37 DEGREES C. ID Date Data Source [id number] 05/02/2020 03:02:25 AM EDT [facility] Name Value Range Interpretation Code Description Data Apurva rce(s) Supporting Document(s) PHOSPHORUS 3.7 mg/dL (2.5-4.5) [facility] ID Date Data Source [id number] 05/02/2020 03:02:25 AM EDT [facility] Name Value Range Interpretation Code Description Data Apurva rce(s) Supporting Document(s) MAGNESIUM 1.7 mg/dL (1.7-2.4) [facility] ID Date Data Source [id number] 05/02/2020 03:02:25 AM EDT [facility] Name Value Range Interpretation Code Description Data Apurva rce(s) Supporting Document(s) SODIUM 150 mmol/L (136-145) [facility] POTASSIUM 3.2 mmol/L (3.6-5.2) L [facility] CHLORIDE 112 mmol/L (100-108) [facility] CO2 32 mmol/L (22-31) [facility] ANION GAP 6 mmol/L (7-16) L [facility] UREA NITROGEN 4 mg/dL (7-24) L [facility] CREATININE 0.74 mg/dL (0.60-1.00) [facility] BUN/CREAT RATIO 5.4 RATIO (10.0-20.0) L [facility] GLUCOSE 111 mg/dL (70-99) H [facility] CALCIUM 8.1 mg/dL (8.4-10.2) [facility] TOTAL PROTEIN 5.4 g/dL (6.4-8.2) L [facility] ALBUMIN 2.5 g/dL (3.2-4.5) L [facility] GLOBULIN 2.9 g/dL (2.7-4.3) [facility] ALB/GLOB RATIO 0.9 RATIO [facility] ALKALINE PHOSPHATASE 121 U/L (45-117) [facility] BILIRUBIN,TOTAL 0.8 mg/dL (0.0-1.0) [facility] PLEASE NOTE:Total bilirubin results may be falselyelevated in patients taking Eltrombopag. AST (SGOT) 66 U/L (11-39) [facility] ALT (SGPT) 70 U/L (12-78) [facility] GFR >60 ml/min/1.73m2 (>59) [facility] GFR ( AMER) >60 ml/min/1.73m2 (>59) [facility] GFR INTERPRETATION [facility] --NORMAL KIDNEY FUNCTION OR MILD DISEASE - GFR >OR= 60CHRONIC KIDNEY DISEASE - GFR 15 - 59RENAL FAILURE - GFR <15 Est. GFR calculation based on the MDRDstudy equation, which assumes a steadystate for creatinine. Est. GFR should notbe used for medication dosing. ID Date Data Source [id number] 05/02/2020 02:23:43 AM EDT [facility] Name Value Range Interpretation Code Description Data Apurva rce(s) Supporting Document(s) WBC 7.0 10*3/uL (4.1-11.0) [facility] [place] RBC 3.00 10*6/uL (4.00-5.40) L [facility] HGB 9.3 g/dL (12.0-16.0) L [facility] HCT 28.7 % (36.0-47.0) [facility] MCV 95.4 fL (80.0-95.0) [facility] MCH 30.9 pg (27.0-32.0) [facility] MCHC 32.4 g/dL (32.0-36.0) [facility] RDW 17.3 % (10.5-14.5) [facility] PLT 258 10*3/uL (150-450) [facility] MPV 8.1 fL (7.1-10.7) [facility] ID Date Data Source [id number] 05/01/2020 08:59:55 PM EDT [facility] Name Value Range Interpretation Code Description Data Apurva rce(s) Supporting Document(s) APTT 30.5 s (22.0-34.3) [facility] ID Date Data Source [id number] 05/01/2020 09:09:59 PM EDT [facility] Name Value Range Interpretation Code Description Data Apurva rce(s) Supporting Document(s) SODIUM 149 mmol/L (136-145) H [facility] POTASSIUM 3.7 mmol/L (3.6-5.2) [facility] CHLORIDE 113 mmol/L (100-108) H [facility] CO2 30 mmol/L (22-31) [facility] ANION GAP 6 mmol/L (7-16) L [facility] UREA NITROGEN 3 mg/dL (7-24) L [facility] CREATININE 0.77 mg/dL (0.60-1.00) [facility] BUN/CREAT RATIO 3.9 RATIO (10.0-20.0) L [facility] GLUCOSE 117 mg/dL (70-99) H [facility] CALCIUM 7.8 mg/dL (8.4-10.2) L [facility] GFR >60 ml/min/1.73m2 (>59) [facility] GFR ( AMER) >60 ml/min/1.73m2 (>59) [facility] GFR INTERPRETATION [facility] --NORMAL KIDNEY FUNCTION OR MILD DISEASE - GFR >OR= 60CHRONIC KIDNEY DISEASE - GFR 15 - 59RENAL FAILURE - GFR <15 Est. GFR calculation based on the MDRDstudy equation, which assumes a steadystate for creatinine. Est. GFR should notbe used for medication dosing. ID Date Data Source [id number] 05/01/2020 04:30:54 PM EDT [facility] Name Value Range Interpretation Code Description Data Apurva rce(s) Supporting Document(s) PHOSPHORUS 3.5 mg/dL (2.5-4.5) [facility] ID Date Data Source [id number] 05/01/2020 02:50:49 PM EDT [facility] Name Value Range Interpretation Code Description Data Apurva rce(s) Supporting Document(s) MAGNESIUM 2.0 mg/dL (1.7-2.4) [facility] ID Date Data Source [id number] 05/01/2020 02:50:49 PM EDT [facility] Name Value Range Interpretation Code Description Data Apurva rce(s) Supporting Document(s) SODIUM 149 mmol/L (136-145) H [facility] POTASSIUM 3.7 mmol/L (3.6-5.2) [facility] CHLORIDE 114 mmol/L (100-108) H [facility] CO2 28 mmol/L (22-31) [facility] ANION GAP 7 mmol/L (7-16) [facility] UREA NITROGEN 3 mg/dL (7-24) L [facility] CREATININE 0.79 mg/dL (0.60-1.00) [facility] BUN/CREAT RATIO 3.8 RATIO (10.0-20.0) L [facility] GLUCOSE 119 mg/dL (70-99) H [facility] CALCIUM 7.7 mg/dL (8.4-10.2) L [facility] GFR >60 ml/min/1.73m2 (>59) [facility] GFR ( AMER) >60 ml/min/1.73m2 (>59) [facility] GFR INTERPRETATION [facility] --NORMAL KIDNEY FUNCTION OR MILD DISEASE - GFR >OR= 60CHRONIC KIDNEY DISEASE - GFR 15 - 59RENAL FAILURE - GFR <15 Est. GFR calculation based on the MDRDstudy equation, which assumes a steadystate for creatinine. Est. GFR should notbe used for medication dosing. ID Date Data Source [id number] 05/01/2020 02:30:27 PM EDT [facility] Name Value Range Interpretation Code Description Data Apurva [facility](s) Supporting Document(s) APTT 22.1 s (22.0-34.3) [facility] ID Date Data Source [id number] 05/01/2020 02:30:27 PM EDT [facility] Name Value Range Interpretation Code Description Data Apurva rce(s) Supporting Document(s) PT 11.5 s (9.2-11.9) [facility] INR 1.10 [facility] SUGGESTED THERAPEUTIC RANGES USING INR F ORSTABILIZED ANTICOAGULATED PATIENTS:STANDARD DOSE THERAPY INR 2.0-3.0 DVT, PE, PREVENT DVT OR EMBOLISMHIGH DOSE THERAPY INR 2.5-3.5 PREVENT EMBOLISM FROM MECHANICAL HEART VALVE ID Date Data Source [id number] 05/01/2020 01:15:00 PM EDT [facility] al DATE OF EXAM: 05/01/2020US DVT ARM [...] right subclavian vein. Professional interpretation performed at [facility] .End of diagnostic report for accession: [id number] Interpreted: Park Fragaranscribed: 05/01/2020 01:12 PMSigned: 05/01/2020 01:15 PM Park Fraga DO [facility] # [id number] BILL # [id number] Name Value Range Interpretation Code Description Data Apurva rce(s) Supporting Document(s) ID Date Data Source [id number] 05/01/2020 11:20:00 AM EDT [facility] al DATE OF EXAM: 05/01/2020EXAM:Abdomen NG Tube Placement Port CLINICAL INDICATION: NG TUBE PLACEMENT TECHNIQUE: A single coned-down view of the chest and upper abdomen was obtained. COMPARISON: None. IMPRESSION: An enteric tube is visualized with its tip and side-port reaching the expected location of the stomach. Professional interpretation performed at [facility] .End of diagnostic report for accession: [id number] Interpreted: Park Fragaranscribed: 05/01/2020 11:19 AMSigned: 05/01/2020 11:20 AM Park Fraga DO [facility] # [id number] BILL # [id number] Name Value Range Interpretation Code Description Data Apurva rce(s) Supporting Document(s) ID Date Data Source [id number] 05/01/2020 08:19:42 AM EDT [facility] Name Value Range Interpretation Code Description Data Apurva rce(s) Supporting Document(s) PHOSPHORUS 3.5 mg/dL (2.5-4.5) [facility] ID Date Data Source [id number] 05/01/2020 08:19:42 AM EDT [facility] Name Value Range Interpretation Code Description Data Apurva rce(s) Supporting Document(s) MAGNESIUM 2.0 mg/dL (1.7-2.4) [facility] ID Date Data Source [id number] 05/01/2020 08:19:42 AM EDT [facility] Name Value Range Interpretation Code Description Data Apurva rce(s) Supporting Document(s) SODIUM 149 mmol/L (136-145) H [facility] POTASSIUM 3.8 mmol/L (3.6-5.2) [facility] CHLORIDE 113 mmol/L (100-108) H [facility] CO2 27 mmol/L (22-31) [facility] ANION GAP 9 mmol/L (7-16) [facility] UREA NITROGEN 3 mg/dL (7-24) L [facility] CREATININE 0.80 mg/dL (0.60-1.00) [facility] BUN/CREAT RATIO 3.8 RATIO (10.0-20.0) L [facility] GLUCOSE 116 mg/dL (70-99) H [facility] CALCIUM 7.7 mg/dL (8.4-10.2) L [facility] GFR >60 ml/min/1.73m2 (>59) [facility] GFR ( AMER) >60 ml/min/1.73m2 (>59) [facility] GFR INTERPRETATION [facility] --NORMAL KIDNEY FUNCTION OR MILD DISEASE - GFR >OR= 60CHRONIC KIDNEY DISEASE - GFR 15 - 59RENAL FAILURE - GFR <15 Est. GFR calculation based on the MDRDstudy equation, which assumes a steadystate for creatinine. Est. GFR should notbe used for medication dosing. ID Date Data Source [id number] 05/01/2020 01:00:28 AM EDT [facility] Name Value Range Interpretation Code Description Data Apurva rce(s) Supporting Document(s) CALCIUM IONIZED 4.76 mg/dL (4.64-5.28) [facility] IONIZED CALCIUM NORMALIZED TO PH 7.40 AN D 37 DEGREES C. ID Date Data Source [id number] 05/01/2020 12:56:28 AM EDT [facility] Name Value Range Interpretation Code Description Data Apurva rce(s) Supporting Document(s) PHOSPHORUS 3.2 mg/dL (2.5-4.5) [facility] ID Date Data Source [id number] 05/01/2020 12:56:28 AM EDT [facility] Name Value Range Interpretation Code Description Data Apurva rce(s) Supporting Document(s) MAGNESIUM 2.1 mg/dL (1.7-2.4) [facility] ID Date Data Source [id number] 05/01/2020 12:56:28 AM EDT [facility] Name Value Range Interpretation Code Description Data Apurva rce(s) Supporting Document(s) SODIUM 148 mmol/L (136-145) H [facility] POTASSIUM 3.5 mmol/L (3.6-5.2) L [facility] CHLORIDE 112 mmol/L (100-108) H [facility] CO2 28 mmol/L (22-31) [facility] ANION GAP 8 mmol/L (7-16) [facility] UREA NITROGEN 3 mg/dL (7-24) L [facility] CREATININE 0.75 mg/dL (0.60-1.00) [facility] BUN/CREAT RATIO 4.0 RATIO (10.0-20.0) L [facility] GLUCOSE 119 mg/dL (70-99) H [facility] CALCIUM 7.6 mg/dL (8.4-10.2) L [facility] TOTAL PROTEIN 5.3 g/dL (6.4-8.2) L [facility] ALBUMIN 2.5 g/dL (3.2-4.5) L [facility] GLOBULIN 2.8 g/dL (2.7-4.3) [facility] ALB/GLOB RATIO 0.9 RATIO [facility] ALKALINE PHOSPHATASE 119 U/L (45-117) H [facility] BILIRUBIN,TOTAL 1.0 mg/dL (0.0-1.0) [facility] PLEASE NOTE:Total bilirubin results may be falselyelevated in patients taking Eltrombopag. AST (SGOT) 77 U/L (11-39) H [facility] ALT (SGPT) 84 U/L (12-78) H [facility] GFR >60 ml/min/1.73m2 (>59) [facility] GFR ( AMER) >60 ml/min/1.73m2 (>59) [facility] GFR INTERPRETATION [facility] --NORMAL KIDNEY FUNCTION OR MILD DISEASE - GFR >OR= 60CHRONIC KIDNEY DISEASE - GFR 15 - 59RENAL FAILURE - GFR <15 Est. GFR calculation based on the MDRDstudy equation, which assumes a steadystate for creatinine. Est. GFR should notbe used for medication dosing. ID Date Data Source [id number] 05/01/2020 12:31:49 AM EDT [facility] Name Value Range Interpretation Code Description Data Apurva rce(s) Supporting Document(s) WBC 7.3 10*3/uL (4.1-11.0) [facility] [place] RBC 2.80 10*6/uL (4.00-5.40) L [facility] HGB 8.9 g/dL (12.0-16.0) L [facility] HCT 26.8 % (36.0-47.0) L [facility] MCV 95.4 fL (80.0-95.0) H [facility] MCH 31.9 pg (27.0-32.0) [facility] MCHC 33.4 g/dL (32.0-36.0) [facility] RDW 16.9 % (10.5-14.5) H [facility] PLT 195 10*3/uL (150-450) [facility] MPV 9.3 fL (7.1-10.7) [facility] ID Date Data Source [id number] 04/30/2020 06:32:47 PM EDT [facility] Name Value Range Interpretation Code Description Data Apurva rce(s) Supporting Document(s) PHOSPHORUS 3.4 mg/dL (2.5-4.5) [facility] ID Date Data Source [id number] 04/30/2020 06:32:47 PM EDT [facility] Name Value Range Interpretation Code Description Data Apurva rce(s) Supporting Document(s) MAGNESIUM 2.4 mg/dL (1.7-2.4) [facility] ID Date Data Source [id number] 04/30/2020 06:32:47 PM EDT [facility] Name Value Range Interpretation Code Description Data Apurva rce(s) Supporting Document(s) SODIUM 145 mmol/L (136-145) [facility] POTASSIUM 3.8 mmol/L (3.6-5.2) [facility] CHLORIDE 112 mmol/L (100-108) H [facility] CO2 26 mmol/L (22-31) [facility] ANION GAP 7 mmol/L (7-16) [facility] UREA NITROGEN 3 mg/dL (7-24) L [facility] CREATININE 0.72 mg/dL (0.60-1.00) [facility] BUN/CREAT RATIO 4.2 RATIO (10.0-20.0) L [facility] GLUCOSE 126 mg/dL (70-99) H [facility] CALCIUM 7.5 mg/dL (8.4-10.2) L [facility] GFR >60 ml/min/1.73m2 (>59) [facility] GFR ( AMER) >60 ml/min/1.73m2 (>59) [facility] GFR INTERPRETATION [facility] --NORMAL KIDNEY FUNCTION OR MILD DISEASE - GFR >OR= 60CHRONIC KIDNEY DISEASE - GFR 15 - 59RENAL FAILURE - GFR <15 Est. GFR calculation based on the MDRDstudy equation, which assumes a steadystate for creatinine. Est. GFR should notbe used for medication dosing. ID Date Data Source [id number] 04/30/2020 09:38:42 AM EDT [facility] Name Value Range Interpretation Code Description Data Apurva e(s) Supporting Document(s) VANCOMYCIN TROUGH 16.5 ug/mL (10.0-20.0) [facility] ID Date Data Source [id number] 04/30/2020 09:38:42 AM EDT [facility] Name Value Range Interpretation Code Description Data Apurva rce(s) Supporting Document(s) MAGNESIUM 1.7 mg/dL (1.7-2.4) [facility] ID Date Data Source [id number] 04/30/2020 09:38:42 AM EDT [facility] Name Value Range Interpretation Code Description Data Apurva rce(s) Supporting Document(s) PHOSPHORUS 2.9 mg/dL (2.5-4.5) [facility] ID Date Data Source [id number] 04/30/2020 09:38:42 AM EDT [facility] Name Value Range Interpretation Code Description Data Apurva rce(s) Supporting Document(s) SODIUM 146 mmol/L (136-145) H [facility] POTASSIUM 3.3 mmol/L (3.6-5.2) L [facility] CHLORIDE 112 mmol/L (100-108) H [facility] CO2 24 mmol/L (22-31) [facility] ANION GAP 10 mmol/L (7-16) [facility] UREA NITROGEN 3 mg/dL (7-24) L [facility] CREATININE 0.72 mg/dL (0.60-1.00) [facility] BUN/CREAT RATIO 4.2 RATIO (10.0-20.0) L [facility] GLUCOSE 130 mg/dL (70-99) H [facility] CALCIUM 7.2 mg/dL (8.4-10.2) L [facility] GFR >60 ml/min/1.73m2 (>59) [facility] GFR ([facility] AMER) >60 ml/min/1.73m2 (>59) [facility] GFR INTERPRETATION [facility] --NORMAL KIDNEY FUNCTION OR MILD DISEASE - GFR >OR= 60CHRONIC KIDNEY DISEASE - GFR 15 - 59RENAL FAILURE - GFR <15 Est. GFR calculation based on the MDRDstudy equation, which assumes a steadystate for creatinine. Est. GFR should notbe used for medication dosing. ID Date Data Source [id number] 04/30/2020 03:11:02 AM EDT [facility] Name Value Range Interpretation Code Description Data Apurva rce(s) Supporting Document(s) COLOR [facility] APPEARANCE [facility] SPEC GRAV URINE 1.013 (1.003-1.030) [facility] PH URINE 5.0 (5.0-7.5) [facility] LEUK ESTERASE 1+ (NEG) A [facility] NITRITE URINE (NEG) [facility] PROTEIN URINE (NEG) [facility] GLUCOSE URINE (NEG) [facility] KETONE URINE (NEG) A [facility] UROBILINOGEN 0.2 mg/dL (0-1.0) [facility] BILIRUBIN URINE (NEG) [facility] BLOOD/HGB URINE 3+ (NEG) A [facility] URINE WBC (0-5) [facility] URINE RBC (0-2) [facility] BACTERIA 1+ [HPF] [facility] MUCUS 1+ [HPF] [facility] YEAST 1+ [HPF] [facility] ID Date Data Source [id number] 04/30/2020 08:49:00 AM EDT [facility] [...] bilaterally. X7End of diagnostic report for accession: [id number] Interpreted: Shahzad Perez MDTranscribed: 04/30/2020 08:43 AMSigned: 04/30/2020 08:49 AM Shahzad Perez MD [facility] # [id number] [facility] # [id number] Name Value Range Interpretation Code Description Data Apurva rce(s) Supporting Document(s) ID Date Data Source [id number] 04/30/2020 02:38:46 AM EDT [facility] Name Value Range Interpretation Code Description Data Apurva rce(s) Supporting Document(s) SOURCE [facility] FIO2 60 % [facility] PH 7.39 (7.35-7.45) [facility] PCO2 32 mm[Hg] (32-48) [facility] PO2 95 mm[Hg] (83-108) [facility] O2 SATURATION 96.2 % (95.0-99.0) [facility] BASE DEFICIT 5.3 mmol/L (0.0-2.0) H [facility] HCO3 18.9 mmol/L (21.0-29.0) L [facility] TOTAL CO2 19.8 mmol/L (23.0-32.0) L [facility] BODY TEMPERATURE 98.6 [degF] [facility] ID Date Data Source [id number] 04/30/2020 02:47:45 AM EDT [facility] Name Value Range Interpretation Code Description Data Apurva rce(s) Supporting Document(s) WBC 8.3 10*3/uL (4.1-11.0) [facility] [place] RBC 3.08 10*6/uL (4.00-5.40) L [facility] HGB 9.5 g/dL (12.0-16.0) L [facility] HCT 29.6 % (36.0-47.0) L [facility] MCV 96.0 fL (80.0-95.0) H [facility] MCH 30.9 pg (27.0-32.0) [facility] MCHC 32.1 g/dL (32.0-36.0) [facility] RDW 16.3 % (10.5-14.5) H [facility] PLT 169 10*3/uL (150-450) [facility] MPV 9.3 fL (7.1-10.7) [facility] ID Date Data Source [id number] 04/30/2020 02:39:46 AM EDT [facility] Name Value Range Interpretation Code Description Data Apurva rce(s) Supporting Document(s) SODIUM 146 mmol/L (136-145) H [facility] POTASSIUM 3.8 mmol/L (3.6-5.2) [facility] CHLORIDE 113 mmol/L (100-108) H [facility] CO2 25 mmol/L (22-31) [facility] ANION GAP 8 mmol/L (7-16) [facility] UREA NITROGEN 3 mg/dL (7-24) L [facility] CREATININE 0.68 mg/dL (0.60-1.00) [facility] BUN/CREAT RATIO 4.4 RATIO (10.0-20.0) L [facility] GLUCOSE 116 mg/dL (70-99) H [facility] CALCIUM 7.2 mg/dL (8.4-10.2) L [facility] GFR >60 ml/min/1.73m2 (>59) [facility] GFR ( AMER) >60 ml/min/1.73m2 (>59) [facility] GFR INTERPRETATION [facility] [place] --NORMAL KIDNEY FUNCTION OR MILD DISEASE - GFR >OR= 60CHRONIC KIDNEY DISEASE - GFR 15 - 59RENAL FAILURE - GFR <15 Est. GFR calculation based on the MDRDstudy equation, which assumes a steadystate for creatinine. Est. GFR should notbe used for medication dosing. ID Date Data Source [id number] 04/29/2020 09:04:58 PM EDT [facility] Name Value Range Interpretation Code Description Data Apurva rce(s) Supporting Document(s) SODIUM 144 mmol/L (136-145) [facility] POTASSIUM 3.6 mmol/L (3.6-5.2) [facility] CHLORIDE 111 mmol/L (100-108) H [facility] CO2 24 mmol/L (22-31) [facility] ANION GAP 9 mmol/L (7-16) [facility] UREA NITROGEN 3 mg/dL (7-24) L [facility] CREATININE 0.56 mg/dL (0.60-1.00) L [facility] BUN/CREAT RATIO 5.4 RATIO (10.0-20.0) L [facility] GLUCOSE 126 mg/dL (70-99) H [facility] CALCIUM 7.3 mg/dL (8.4-10.2) L [facility] GFR >60 ml/min/1.73m2 (>59) [facility] GFR ( AMER) >60 ml/min/1.73m2 (>59) [facility] GFR INTERPRETATION [facility] --NORMAL KIDNEY FUNCTION OR MILD DISEASE - GFR >OR= 60CHRONIC KIDNEY DISEASE - GFR 15 - 59RENAL FAILURE - GFR <15 Est. GFR calculation based on the MDRDstudy equation, which assumes a steadystate for creatinine. Est. GFR should notbe used for medication dosing. ID Date Data Source [id number] 04/29/2020 09:04:58 PM EDT [facility] Name Value Range Interpretation Code Description Data Apurva rce(s) Supporting Document(s) MAGNESIUM 1.8 mg/dL (1.7-2.4) [facility] ID Date Data Source [id number] 04/29/2020 09:04:58 PM EDT [facility] Name Value Range Interpretation Code Description Data Apurva rce(s) Supporting Document(s) PHOSPHORUS 2.8 mg/dL (2.5-4.5) [facility] ID Date Data Source [id number] 04/30/2020 10:05:15 AM EDT [facility] Name Value Range Interpretation Code Description Data Apurva rce(s) Supporting Document(s) SPECIMEN DESCRIPTION [facility] STAPH SCREEN RESULTS (ONEGSA) [facility] COMMENT [facility] GENE TO DETECT STAPH AUREUS. (2) RT-P CR WAS PERFORMED FOR THE mecA AND [employer] GENES TO DETECT METHICILLIN RESISTANCE IN STAPH AUREUS. ID Date Data Source [id number] 04/29/2020 02:23:18 PM EDT [facility] Name Value Range Interpretation Code Description Data Apurva rce(s) Supporting Document(s) PHOSPHORUS 3.3 mg/dL (2.5-4.5) [facility] ID Date Data Source [id number] 04/29/2020 02:23:18 PM EDT [facility] Name Value Range Interpretation Code Description Data Apurva rce(s) Supporting Document(s) MAGNESIUM 1.8 mg/dL (1.7-2.4) [facility] ID Date Data Source [id number] 04/29/2020 02:23:18 PM EDT [facility] Name Value Range Interpretation Code Description Data Apurva rce(s) Supporting Document(s) SODIUM 144 mmol/L (136-145) [facility] POTASSIUM 3.8 mmol/L (3.6-5.2) [facility] CHLORIDE 111 mmol/L (100-108) H [facility] CO2 25 mmol/L (22-31) [facility] ANION GAP 8 mmol/L (7-16) [facility] UREA NITROGEN 3 mg/dL (7-24) L [facility] CREATININE 0.48 mg/dL (0.60-1.00) L [facility] BUN/CREAT RATIO 6.3 RATIO (10.0-20.0) L [facility] GLUCOSE 134 mg/dL (70-99) H [facility] CALCIUM 6.9 mg/dL (8.4-10.2) L [facility] GFR >60 ml/min/1.73m2 (>59) [facility] GFR ( AMER) >60 ml/min/1.73m2 (>59) [facility] GFR INTERPRETATION [facility] --NORMAL KIDNEY FUNCTION OR MILD DISEASE - GFR >OR= 60CHRONIC KIDNEY DISEASE - GFR 15 - 59RENAL FAILURE - GFR <15 Est. GFR calculation based on the MDRDstudy equation, which assumes a steadystate for creatinine. Est. GFR should notbe used for medication dosing. ID Date Data Source [id number] 04/29/2020 09:40:14 AM EDT [facility] Name Value Range Interpretation Code Description Data Apurva rce(s) Supporting Document(s) WBC 5.5 10*3/uL (4.1-11.0) [facility] [place] RBC 2.96 10*6/uL (4.00-5.40) L [facility] HGB 9.2 g/dL (12.0-16.0) L [facility] HCT 28.2 % (36.0-47.0) L [facility] MCV 95.1 fL (80.0-95.0) H [facility] MCH 31.0 pg (27.0-32.0) [facility] MCHC 32.6 g/dL (32.0-36.0) [facility] RDW 16.1 % (10.5-14.5) H [facility] PLT 106 10*3/uL (150-450) L [facility] MPV 9.5 fL (7.1-10.7) [facility] ID Date Data Source [id number] 04/29/2020 09:04:20 AM EDT [facility] Name Value Range Interpretation Code Description Data Apurva rce(s) Supporting Document(s) VANCOMYCIN TROUGH 16.3 ug/mL (10.0-20.0) [facility] ID Date Data Source [id number] 04/29/2020 09:04:20 AM EDT [facility] Name Value Range Interpretation Code Description Data Apurva rce(s) Supporting Document(s) PHOSPHORUS 1.9 mg/dL (2.5-4.5) L [facility] ID Date Data Source [id number] 04/29/2020 09:04:20 AM EDT [facility] Name Value Range Interpretation Code Description Data Apurva rce(s) Supporting Document(s) MAGNESIUM 2.0 mg/dL (1.7-2.4) [facility] ID Date Data Source [id number] 04/29/2020 09:04:20 AM EDT [facility] Name Value Range Interpretation Code Description Data Apurva rce(s) Supporting Document(s) SODIUM 143 mmol/L (136-145) [facility] POTASSIUM 4.1 mmol/L (3.6-5.2) [facility] CHLORIDE 110 mmol/L (100-108) H [facility] CO2 25 mmol/L (22-31) [facility] ANION GAP 8 mmol/L (7-16) [facility] UREA NITROGEN 3 mg/dL (7-24) L [facility] CREATININE 0.52 mg/dL (0.60-1.00) L [facility] BUN/CREAT RATIO 5.8 RATIO (10.0-20.0) L [facility] GLUCOSE 122 mg/dL (70-99) H [facility] CALCIUM 7.5 mg/dL (8.4-10.2) L [facility] GFR >60 ml/min/1.73m2 (>59) [facility] GFR ( AMER) >60 ml/min/1.73m2 (>59) [facility] GFR INTERPRETATION [facility] --NORMAL KIDNEY FUNCTION OR MILD DISEASE - GFR >OR= 60CHRONIC KIDNEY DISEASE - GFR 15 - 59RENAL FAILURE - GFR <15 Est. GFR calculation based on the MDRDstudy equation, which assumes a steadystate for creatinine. Est. GFR should notbe used for medication dosing. ID Date Data Source [id number] 04/29/2020 03:20:10 AM EDT [facility] Name Value Range Interpretation Code Description Data Apurva rce(s) Supporting Document(s) MAGNESIUM 2.0 mg/dL (1.7-2.4) [facility] ID Date Data Source [id number] 04/29/2020 03:20:10 AM EDT [facility] Name Value Range Interpretation Code Description Data Apurva rce(s) Supporting Document(s) PHOSPHORUS 1.9 mg/dL (2.5-4.5) L [facility] ID Date Data Source [id number] 04/29/2020 03:20:10 AM EDT [facility] Name Value Range Interpretation Code Description Data Apurva rce(s) Supporting Document(s) SODIUM 143 mmol/L (136-145) [facility] POTASSIUM 3.4 mmol/L (3.6-5.2) L [facility] CHLORIDE 110 mmol/L (100-108) H [facility] CO2 24 mmol/L (22-31) [facility] ANION GAP 9 mmol/L (7-16) [facility] UREA NITROGEN 3 mg/dL (7-24) L [facility] CREATININE 0.51 mg/dL (0.60-1.00) L [facility] BUN/CREAT RATIO 5.9 RATIO (10.0-20.0) L [facility] GLUCOSE 119 mg/dL (70-99) H [facility] CALCIUM 7.1 mg/dL (8.4-10.2) L [facility] TOTAL PROTEIN 5.2 g/dL (6.4-8.2) L [facility] ALBUMIN 2.5 g/dL (3.2-4.5) L [facility] GLOBULIN 2.7 g/dL (2.7-4.3) [facility] ALB/GLOB RATIO 0.9 RATIO [facility] ALKALINE PHOSPHATASE 104 U/L (45-117) [facility] BILIRUBIN,TOTAL 1.0 mg/dL (0.0-1.0) [facility] PLEASE NOTE:Total bilirubin results may be falselyelevated in patients taking Eltrombopag. AST (SGOT) 127 U/L (11-39) [facility] ALT (SGPT) 110 U/L (12-78) [facility] GFR >60 ml/min/1.73m2 (>59) [facility] GFR ( AMER) >60 ml/min/1.73m2 (>59) [facility] GFR INTERPRETATION [facility] --NORMAL KIDNEY FUNCTION OR MILD DISEASE - GFR >OR= 60CHRONIC KIDNEY DISEASE - GFR 15 - 59RENAL FAILURE - GFR <15 Est. GFR calculation based on the MDRDstudy equation, which assumes a steadystate for creatinine. Est. GFR should notbe used for medication dosing. ID Date Data Source [id number] 04/29/2020 03:17:55 AM EDT [facility] Name Value Range Interpretation Code Description Data Apurva rce(s) Supporting Document(s) CALCIUM IONIZED 4.56 mg/dL (4.64-5.28) L [facility] IONIZED CALCIUM NORMALIZED TO PH 7.40 AN D 37 DEGREES C. ID Date Data Source [id number] 04/29/2020 02:41:12 AM EDT [facility] Name Value Range Interpretation Code Description Data Apurva rce(s) Supporting Document(s) WBC 5.6 10*3/uL (4.1-11.0) [facility] [place] RBC 2.87 10*6/uL (4.00-5.40) [facility] HGB 8.9 g/dL (12.0-16.0) [facility] HCT 27.4 % (36.0-47.0) [facility] MCV 95.5 fL (80.0-95.0) [facility] MCH 31.1 pg (27.0-32.0) [facility] MCHC 32.6 g/dL (32.0-36.0) [facility] RDW 15.7 % (10.5-14.5) [facility] PLT 100 10*3/uL (150-450) [facility] MPV 9.9 fL (7.1-10.7) [facility] ID Date Data Source [id number] 04/28/2020 08:31:17 PM EDT [facility] Name Value Range Interpretation Code Description Data Apurva rce(s) Supporting Document(s) PHOSPHORUS 1.9 mg/dL (2.5-4.5) [facility] ID Date Data Source [id number] 04/28/2020 08:31:17 PM EDT [facility] Name Value Range Interpretation Code Description Data Apurva rce(s) Supporting Document(s) MAGNESIUM 2.1 mg/dL (1.7-2.4) [facility] ID Date Data Source [id number] 04/28/2020 08:31:17 PM EDT [facility] Name Value Range Interpretation Code Description Data Apurva rce(s) Supporting Document(s) SODIUM 143 mmol/L (136-145) [facility] POTASSIUM 3.8 mmol/L (3.6-5.2) [facility] CHLORIDE 111 mmol/L (100-108) H [facility] CO2 26 mmol/L (22-31) [facility] ANION GAP 6 mmol/L (7-16) L [facility] UREA NITROGEN 3 mg/dL (7-24) L [facility] CREATININE 0.54 mg/dL (0.60-1.00) L [facility] BUN/CREAT RATIO 5.6 RATIO (10.0-20.0) L [facility] GLUCOSE 130 mg/dL (70-99) H [facility] CALCIUM 7.1 mg/dL (8.4-10.2) L [facility] GFR >60 ml/min/1.73m2 (>59) [facility] GFR ( AMER) >60 ml/min/1.73m2 (>59) [facility] GFR INTERPRETATION [facility] --NORMAL KIDNEY FUNCTION OR MILD DISEASE - GFR >OR= 60CHRONIC KIDNEY DISEASE - GFR 15 - 59RENAL FAILURE - GFR <15 Est. GFR calculation based on the MDRDstudy equation, which assumes a steadystate for creatinine. Est. GFR should notbe used for medication dosing. ID Date Data Source [id number] 04/28/2020 03:44:21 PM EDT [facility] Name Value Range Interpretation Code Description Data Apurva rce(s) Supporting Document(s) WBC 6.1 10*3/uL (4.1-11.0) [facility] RBC 2.85 10*6/uL (4.00-5.40) L [facility] HGB 9.1 g/dL (12.0-16.0) L [facility] HCT 27.3 % (36.0-47.0) L [facility] MCV 95.7 fL (80.0-95.0) H [facility] MCH 31.8 pg (27.0-32.0) [facility] MCHC 33.2 g/dL (32.0-36.0) [facility] RDW 15.8 % (10.5-14.5) H [facility] PLT 91 10*3/uL (150-450) L [facility] MPV 9.7 fL (7.1-10.7) [facility] ID Date Data Source [id number] 04/28/2020 02:32:50 PM EDT [facility] Name Value Range Interpretation Code Description Data Apurva rce(s) Supporting Document(s) PHOSPHORUS 2.1 mg/dL (2.5-4.5) L [facility] ID Date Data Source [id number] 04/28/2020 02:32:50 PM EDT [facility] Name Value Range Interpretation Code Description Data Apurva rce(s) Supporting Document(s) SODIUM 142 mmol/L (136-145) [facility] POTASSIUM 4.0 mmol/L (3.6-5.2) [facility] CHLORIDE 110 mmol/L (100-108) H [facility] CO2 25 mmol/L (22-31) [facility] ANION GAP 7 mmol/L (7-16) [facility] UREA NITROGEN 4 mg/dL (7-24) L [facility] CREATININE 0.52 mg/dL (0.60-1.00) L [facility] BUN/CREAT RATIO 7.7 RATIO (10.0-20.0) L [facility] GLUCOSE 129 mg/dL (70-99) H [facility] CALCIUM 7.2 mg/dL (8.4-10.2) L [facility] GFR >60 ml/min/1.73m2 (>59) [facility] GFR ( AMER) >60 ml/min/1.73m2 (>59) [facility] GFR INTERPRETATION [facility] [place] --NORMAL KIDNEY FUNCTION OR MILD DISEASE - GFR >OR= 60CHRONIC KIDNEY DISEASE - GFR 15 - 59RENAL FAILURE - GFR <15 Est. GFR calculation based on the MDRDstudy equation, which assumes a steadystate for creatinine. Est. GFR should notbe used for medication dosing. ID Date Data Source [id number] 04/28/2020 02:32:50 PM EDT [facility] Name Value Range Interpretation Code Description Data Apurva rce(s) Supporting Document(s) MAGNESIUM 2.1 mg/dL (1.7-2.4) [facility] ID Date Data Source [id number] 04/28/2020 02:11:20 PM EDT [facility] Name Value Range Interpretation Code Description Data Apurva rce(s) Supporting Document(s) SOURCE [facility] FIO2 [facility] VENOUS PH 7.31 (7.33-7.43) L [facility] VENOUS PCO2 47 mm[Hg] (38-50) [facility] PO2 37 mm[Hg] (30-50) [facility] LAMAR BASE DEFICIT 3.5 mmol/L (0.0-2.0) H [facility] VENOUS HCO3 23.0 mmol/L (23-27) [facility] VENOUS TOTAL CO2 24.4 mmol/L (24-28) [facility] BODY TEMPERATURE 98.6 [degF] [facility] ID Date Data Source [id number] 04/28/2020 02:41:12 AM EDT [facility] Name Value Range Interpretation Code Description Data Apurva rce(s) Supporting Document(s) MAGNESIUM 2.7 mg/dL (1.7-2.4) H [facility] ID Date Data Source [id number] 04/28/2020 02:41:12 AM EDT [facility] Name Value Range Interpretation Code Description Data Apurva rce(s) Supporting Document(s) PHOSPHORUS 1.0 mg/dL (2.5-4.5) L [facility] ID Date Data Source [id number] 04/28/2020 02:41:12 AM EDT [facility] Name Value Range Interpretation Code Description Data Apurva rce(s) Supporting Document(s) SODIUM 142 mmol/L (136-145) [facility] POTASSIUM 3.6 mmol/L (3.6-5.2) [facility] CHLORIDE 110 mmol/L (100-108) H [facility] CO2 24 mmol/L (22-31) [facility] ANION GAP 8 mmol/L (7-16) [facility] UREA NITROGEN 4 mg/dL (7-24) L [facility] CREATININE 0.58 mg/dL (0.60-1.00) L [facility] BUN/CREAT RATIO 6.9 RATIO (10.0-20.0) L [facility] GLUCOSE 128 mg/dL (70-99) H [facility] CALCIUM 7.2 mg/dL (8.4-10.2) L [facility] TOTAL PROTEIN 5.4 g/dL (6.4-8.2) L [facility] ALBUMIN 2.8 g/dL (3.2-4.5) L [facility] GLOBULIN 2.6 g/dL (2.7-4.3) L [facility] ALB/GLOB RATIO 1.1 RATIO [facility] ALKALINE PHOSPHATASE 97 U/L (45-117) [facility] BILIRUBIN,TOTAL 1.2 mg/dL (0.0-1.0) H [facility] PLEASE NOTE:Total bilirubin results may be falselyelevated in patients taking Eltrombopag. AST (SGOT) 139 U/L (11-39) H [facility] ALT (SGPT) 105 U/L (12-78) H [facility] GFR >60 ml/min/1.73m2 (>59) [facility] GFR ( AMER) >60 ml/min/1.73m2 (>59) [facility] --NORMAL KIDNEY FUNCTION OR MILD DISEASE - GFR >OR= 60CHRONIC KIDNEY DISEASE - GFR 15 - 59RENAL FAILURE - GFR <15 Est. GFR calculation based on the MDRDstudy equation, which assumes a steadystate for creatinine. Est. GFR should notbe used for medication dosing. ID Date Data Source [id number] 04/28/2020 02:39:52 AM EDT [facility] Name Value Range Interpretation Code Description Data Apurva rce(s) Supporting Document(s) CALCIUM IONIZED 4.72 mg/dL (4.64-5.28) [facility] IONIZED CALCIUM NORMALIZED TO PH 7.40 AN D 37 DEGREES C. ID Date Data Source [id number] 04/28/2020 02:12:48 AM EDT [facility] Name Value Range Interpretation Code Description Data Apurva rce(s) Supporting Document(s) WBC 5.5 10*3/uL (4.1-11.0) [facility] [place] RBC 2.98 10*6/uL (4.00-5.40) L [facility] HGB 9.2 g/dL (12.0-16.0) L [facility] HCT 28.0 % (36.0-47.0) L [facility] MCV 93.8 fL (80.0-95.0) [facility] MCH 30.8 pg (27.0-32.0) [facility] MCHC 32.9 g/dL (32.0-36.0) [facility] RDW 15.5 % (10.5-14.5) H [facility] PLT 84 10*3/uL (150-450) L [facility] MPV 9.0 fL (7.1-10.7) [facility] ID Date Data Source [id number] 04/28/2020 08:50:00 AM EDT [facility] DATE OF EXAM: 04/28/2020CHEST RADIOGRAPH , [...] follow-up is recommended. Professional interpretation performed at [facility] .End of diagnostic report for accession: [id number] Interpreted: Park Fragascribed: 04/28/2020 08:49 AMSigned: 04/28/2020 08:50 AM Park Fraga DO [facility] # [id number] BILL # [id number] Name Value Range Interpretation Code Description Data Apurva rce(s) Supporting Document(s) ID Date Data Source [id number] 04/27/2020 05:15:50 PM EDT [facility] Name Value Range Interpretation Code Description Data Apurva rce(s) Supporting Document(s) SODIUM 143 mmol/L (136-145) [facility] POTASSIUM 4.6 mmol/L (3.6-5.2) [facility] CHLORIDE 111 mmol/L (100-108) H [facility] CO2 22 mmol/L (22-31) [facility] ANION GAP 10 mmol/L (7-16) [facility] UREA NITROGEN 3 mg/dL (7-24) L [facility] CREATININE 0.61 mg/dL (0.60-1.00) [facility] BUN/CREAT RATIO 4.9 RATIO (10.0-20.0) L [facility] GLUCOSE 118 mg/dL (70-99) H [facility] CALCIUM 6.7 mg/dL (8.4-10.2) L [facility] GFR >60 ml/min/1.73m2 (>59) [facility] GFR ( AMER) >60 ml/min/1.73m2 (>59) [facility] GFR INTERPRETATION [facility] --NORMAL KIDNEY FUNCTION OR MILD DISEASE - GFR >OR= 60CHRONIC KIDNEY DISEASE - GFR 15 - 59RENAL FAILURE - GFR <15 Est. GFR calculation based on the MDRDstudy equation, which assumes a steadystate for creatinine. Est. GFR should notbe used for medication dosing. ID Date Data Source [id number] 04/27/2020 03:40:13 PM EDT [facility] Name Value Range Interpretation Code Description Data Apurva rce(s) Supporting Document(s) CALCIUM IONIZED 4.56 mg/dL (4.64-5.28) L [facility] IONIZED CALCIUM NORMALIZED TO PH 7.40 AN D 37 DEGREES C. ID Date Data Source [id number] 04/27/2020 03:23:53 PM EDT [facility] Name Value Range Interpretation Code Description Data Apurva rce(s) Supporting Document(s) PHOSPHORUS 3.3 mg/dL (2.5-4.5) [facility] ID Date Data Source [id number] 04/27/2020 03:23:53 PM EDT [facility] Name Value Range Interpretation Code Description Data Apurva rce(s) Supporting Document(s) MAGNESIUM 1.4 mg/dL (1.7-2.4) L [facility] ID Date Data Source [id number] 04/27/2020 01:50:36 AM EDT [facility] Name Value Range Interpretation Code Description Data Apurva rce(s) Supporting Document(s) CALCIUM IONIZED 4.40 mg/dL (4.64-5.28) L [facility] IONIZED CALCIUM NORMALIZED TO PH 7.40 AN D 37 DEGREES C. ID Date Data Source [id number] 04/27/2020 01:48:57 AM EDT [facility] Name Value Range Interpretation Code Description Data Apurva rce(s) Supporting Document(s) PHOSPHORUS 1.0 mg/dL (2.5-4.5) L [facility] ID Date Data Source [id number] 04/27/2020 01:48:57 AM EDT [facility] Name Value Range Interpretation Code Description Data Apurva rce(s) Supporting Document(s) MAGNESIUM 1.6 mg/dL (1.7-2.4) L [facility] ID Date Data Source [id number] 04/27/2020 01:48:56 AM EDT [facility] Name Value Range Interpretation Code Description Data Apurva rce(s) Supporting Document(s) SODIUM 141 mmol/L (136-145) [facility] POTASSIUM 2.7 mmol/L (3.6-5.2) LL [facility] RESULT(S) CALLED TO AND READ BACK CEASAR Bill ICU 0147 04/27/20 [place] [address] CHLORIDE 107 mmol/L (100-108) [facility] CO2 20 mmol/L (22-31) L [facility] ANION GAP 14 mmol/L (7-16) [facility] UREA NITROGEN 5 mg/dL (7-24) L [facility] CREATININE 0.74 mg/dL (0.60-1.00) [facility] BUN/CREAT RATIO 6.8 RATIO (10.0-20.0) L [facility] GLUCOSE 128 mg/dL (70-99) H [facility] CALCIUM 7.0 mg/dL (8.4-10.2) L [facility] TOTAL PROTEIN 5.7 g/dL (6.4-8.2) L [facility] ALBUMIN 3.0 g/dL (3.2-4.5) L [facility] GLOBULIN 2.7 g/dL (2.7-4.3) [facility] ALB/GLOB RATIO 1.1 RATIO [facility] ALKALINE PHOSPHATASE 99 U/L (45-117) [facility] BILIRUBIN,TOTAL 1.7 mg/dL (0.0-1.0) H [facility] PLEASE NOTE:Total bilirubin results may be falselyelevated in patients taking Eltrombopag. AST (SGOT) 126 U/L (11-39) H [facility] ALT (SGPT) 101 U/L (12-78) H [facility] GFR >60 ml/min/1.73m2 (>59) [facility] GFR ( AMER) >60 ml/min/1.73m2 (>59) [facility] GFR INTERPRETATION [facility] --NORMAL KIDNEY FUNCTION OR MILD DISEASE - GFR >OR= 60CHRONIC KIDNEY DISEASE - GFR 15 - 59RENAL FAILURE - GFR <15 Est. GFR calculation based on the MDRDstudy equation, which assumes a steadystate for creatinine. Est. GFR should notbe used for medication dosing. ID Date Data Source [id number] 04/27/2020 01:33:55 AM EDT [facility] Name Value Range Interpretation Code Description Data Apurva rce(s) Supporting Document(s) PT 11.4 s (9.2-11.9) [facility] INR 1.09 [facility] SUGGESTED THERAPEUTIC RANGES USING INR F ORSTABILIZED ANTICOAGULATED PATIENTS:STANDARD DOSE THERAPY INR 2.0-3.0 DVT, PE, PREVENT DVT OR EMBOLISMHIGH DOSE THERAPY INR 2.5-3.5 PREVENT EMBOLISM FROM MECHANICAL HEART VALVE ID Date Data Source [id number] 04/27/2020 01:05:49 AM EDT [facility] Name Value Range Interpretation Code Description Data Apurva rce(s) Supporting Document(s) WBC 6.3 10*3/uL (4.1-11.0) [facility] [place] RBC 2.72 10*6/uL (4.00-5.40) L [facility] HGB 8.5 g/dL (12.0-16.0) L [facility] HCT 25.4 % (36.0-47.0) L [facility] MCV 93.4 fL (80.0-95.0) [facility] MCH 31.1 pg (27.0-32.0) [facility] MCHC 33.2 g/dL (32.0-36.0) [facility] RDW 15.5 % (10.5-14.5) H [facility] PLT 98 10*3/uL (150-450) L [facility] MPV 8.7 fL (7.1-10.7) [facility] ID Date Data Source [id number] 04/26/2020 08:12:36 PM EDT [facility] Name Value Range Interpretation Code Description Data Apurva rce(s) Supporting Document(s) CHOLESTEROL @ 232 mg/dL (0-200) H [facility] TRIGLYCERIDE @ 196 mg/dL (30-200) [facility] HDL CHOLESTEROL @ 52 mg/dL (>40) [facility] PER NCEP ATP III GUIDELINES:RESULTS LOWE R THAN 40 MG/DL ARE SUGGESTIVEOF INCREASED RISK FOR CORONARY ARTERYDISEASE. RESULTS > OR = TO 60 MG/DL ARECONSIDERED A NEGATIVE RISK FACTOR. CHOL/HDL RATIO 4.5 RATIO [facility] INTERPRETATION OF CHOL-HDL RATIO CHD RISK FEMALE MALEVERY HIGH >8.3 >14.3HIGH 5.6- 8.3 6.7- 14.3AVERAGE 3.7- 5.6 4.0- 6.7BELOW AVERAGE 2.5- 3.7 2.7- 4.0PROTECTED <2.5 <2.7 LDL CHOL (CALC) 141 mg/dL (<130) H [facility] PER NCEP ATP III GUIDELINES: OPTIMAL < 100 NEAR OPTIMAL 100 - 129BORDERLINE HIGH 130 - 159 HIGH 160 - 189 VERY HIGH > 189 ID Date Data Source [id number] 04/26/2020 06:19:55 PM EDT [facility] Name Value Range Interpretation Code Description Data Apurva rce(s) Supporting Document(s) WBC 6.6 10*3/uL (4.1-11.0) [facility] [place] RBC 2.89 10*6/uL (4.00-5.40) L [facility] HGB 8.9 g/dL (12.0-16.0) L [facility] HCT 27.3 % (36.0-47.0) L [facility] MCV 94.6 fL (80.0-95.0) [facility] MCH 30.9 pg (27.0-32.0) [facility] MCHC 32.7 g/dL (32.0-36.0) [facility] RDW 15.5 % (10.5-14.5) H [facility] PLT 113 10*3/uL (150-450) L [facility] MPV 8.4 fL (7.1-10.7) [facility] ID Date Data Source [id number] 04/26/2020 03:42:00 PM EDT [facility] DATE OF EXAM: 04/26/2020LIVER ELASTOGRAP [...] or = 11.6kPa Professional interpretation performed by [employer] [facility] at [facility] End of diagnostic report for accession: [id number] Interpreted: Issa Perez MDTranscribed: 04/26/2020 03:41 PMSigned: 04/26/2020 03:42 PM Issa Perez MD [facility] # [id number] [facility] # [id number] Name Value Range Interpretation Code Description Data Apurva rce(s) Supporting Document(s) ID Date Data Source [id number] 04/26/2020 02:58:00 PM EDT [facility] [...] cooperation during exam Professional interpretation performed by [facility] Medical Imaging at [facility] End of diagnostic report for accession: [id number] Interpreted: Issa Perez MDTranscribed: 04/26/2020 02:56 PMSigned: 04/26/2020 02:58 PM Issa Perez MD [facility] # [id number] [facility] # [id number] Name Value Range Interpretation Code Description Data Apurva rc(s) Supporting Document(s) ID Date Data Source [id number] 04/26/2020 11:26:36 AM EDT [facility] Name Value Range Interpretation Code Description Data Apurva [facility](s) Supporting Document(s) WBC 4.9 10*3/uL (4.1-11.0) [facility] [place] RBC 2.50 10*6/uL (4.00-5.40) L [facility] HGB 7.9 g/dL (12.0-16.0) L [facility] HCT 24.1 % (36.0-47.0) L [facility] MCV 96.5 fL (80.0-95.0) H [facility] MCH 31.6 pg (27.0-32.0) [facility] MCHC 32.7 g/dL (32.0-36.0) [facility] RDW 15.8 % (10.5-14.5) H [facility] PLT 103 10*3/uL (150-450) L [facility] MPV 9.0 fL (7.1-10.7) [facility] ID Date Data Source [id number] 04/26/2020 10:32:10 AM EDT [facility] Name Value Range Interpretation Code Description Data Apurva rce(s) Supporting Document(s) LIPASE 915 U/L (65-230) H [facility] ID Date Data Source [id number] 04/26/2020 05:33:12 AM EDT [facility] Name Value Range Interpretation Code Description Data Apurva rce(s) Supporting Document(s) URINE WBC (0-5) [facility] URINE RBC (0-2) [facility] EPITHELIAL CELLS 1+ [HPF] [facility] BACTERIA 4+ [HPF] [facility] HYALINE CASTS [facility] ID Date Data Source [id number] 04/26/2020 05:24:51 AM EDT [facility] Name Value Range Interpretation Code Description Data Apurva rce(s) Supporting Document(s) PHOSPHORUS 1.7 mg/dL (2.5-4.5) L [facility] ID Date Data Source [id number] 04/26/2020 05:24:51 AM EDT [facility] Name Value Range Interpretation Code Description Data Apurva rce(s) Supporting Document(s) MAGNESIUM 1.9 mg/dL (1.7-2.4) [facility] ID Date Data Source [id number] 04/26/2020 05:11:39 AM EDT [facility] Name Value Range Interpretation Code Description Data Apurva rce(s) Supporting Document(s) COLOR [facility] APPEARANCE [facility] SPEC GRAV URINE 1.033 (1.003-1.030) H [facility] PH URINE 5.5 (5.0-7.5) [facility] LEUK ESTERASE (NEG) [facility] NITRITE URINE (NEG) [facility] PROTEIN URINE 1+ (NEG) A [facility] GLUCOSE URINE (NEG) [facility] KETONE URINE 3+ (NEG) A [facility] UROBILINOGEN 0.2 mg/dL (0-1.0) [facility] BILIRUBIN URINE (NEG) [facility] BLOOD/HGB URINE 1+ (NEG) A [facility] ID Date Data Source [id number] 04/26/2020 05:03:14 AM EDT [facility] Name Value Range Interpretation Code Description Data Apurva rce(s) Supporting Document(s) LACTIC ACID 0.9 mmol/L (0.4-2.0) [facility] [place] ID Date Data Source [id number] 04/26/2020 04:56:53 AM EDT [facility] Name Value Range Interpretation Code Description Data Apurva rce(s) Supporting Document(s) SOURCE [facility] FIO2 [facility] VENOUS PH 7.11 (7.33-7.43) LL [facility] RESULT(S) CALLED TO AND READ BACK KIMBERLY Ritter AT [facility]ICU ON 04/26/2020 AT 0456 [place] [id number] VENOUS PCO2 22 mm[Hg] (38-50) L [facility] VENOUS PO2 97 mm[Hg] (30-50) H [facility] VENOUS O2 SAT 95.6 % (60-85) H [facility] LAMAR BASE DEFICIT 21.0 mmol/L (0.0-2.0) H [facility] V[facility]OUS HCO3 6.7 mmol/L (23-27) L [facility] [place] TOTAL CO2 7.4 mmol/L (24-28) L [facility] BODY TEMPERATURE 98.6 [degF] [facility] ID Date Data Source [id number] 04/25/2020 10:58:00 PM EDT [facility] DATE OF EXAM: 04/25/2020CHEST CLINICAL S TATEMENT: Alcohol withdrawal. TECHNIQUE: Portable AP view of the chest. COMPARISON: None. FINDINGS: The lungs are clear. The cardiomediastinal structures are within normal limits. The visualized osseous structures appear unremarkable. IMPRESSION: No evidence of acute cardiopulmonary pathology. Professional interpretation performed at [facility] .End of diagnostic report for accession: [id number] Interpreted: Jeyson Potts MDTranscribed: 04/25/2020 10:58 PMSigned: 04/25/2020 10:58 PM Jeyson Potts MD [facility] # [id number] BILL # [id number] Name Value Range Interpretation Code Description Data Apurva rce(s) Supporting Document(s) ID Date Data Source [id number] 04/25/2020 10:39:52 PM EDT [facility] Name Value Range Interpretation Code Description Data Apurva rce(s) Supporting Document(s) MUSE EKG PDF encoded Sondra da silva TMVKGt5zNeXBQfKig5OtEfPfMJTaHY8sgsx8H9G6fOSfD7NtnIVur4drO5ZdS8ByVWKgEHBEIY0YjDJx jb2 [file] [id number]+8+PA8x4Pu049UZa7Kbdvw00Z x2by2FmbMs6vo5nnB9uzaN11cWnJqEYlvD2WqUS9xgy74RPemyu6FvUZxj9L044HLBGaq+UThmjVqSlL Gpy7Bcv1mjD046eF9fvvZTZH3EqMB2+3R9Vu2mdjpbc0U4Ry0cLFlL0DrsnHnelgHvFewP740s4NO1HG 7Z+wlc994pog3BrNTMdqMplSgu2BOh8OelPMai6ftA qajVcbSpVsfZplrDQTsDI3+oi9q7uSdKYDdddaO45y8nV/97vW2tqfx9vvqob0LxdxgZ58g18dDhC7ZL BvtgODhwmTyA0Vtz+vfZE1zY4FtS5f3h64M093QVsYwB07hbQiV9m1rIeJtdIwvrMzws7DX3Oj8ph31K ueGMIz6sd7Chnu150zWVXzExugbwCk7UzXeBHlC5PR dSBvYl7bqt0VVY+2KzfzzSweIbxXZ/zNorjS/foB3cqkb/fSsDrmbgkQf7VahLcKqmE14dVsLHfqIRjz GWdktYS+e1zl01X0ikhLyC2+F0MYhtgda4Qb06bGEilW1hemHndrS8Avl9LPKbUDtjShrIjzjvuYtQOz NgkyiBtzY6LgKo2Zu+jv4qZzAKtBOZlW5JvCJj+6Pq A53206h+0KoueUJO2KLSmqhqKWImWM61bScKZm2jv9ZifLme6EkLGoAoQqCaHlfGmmCmbpRG6L1Yzvr3 NesIMWSN9ibq9fjWJiBdLWZ8U0UgHUMJyMMnUk+mBd/tgeHcQLXgu6+ZGHhmhUY5S1Fl4Y5BqvdJVq0j 436A/fpNu7tXtZskps1HcK9ieerX/c/itOkKTOuAFZ mDNX5rBaDVtyS1JisPnZpFdxqcfEtJEoX2BR6syaZLeFLYvh4AZ00t+gy+E56djkbC3fboEh6ss2KE0z 6GYkh10Km43of5C2ZVv54rDDPrE0FzCQ5WpH63kPraOzm0+kpP/ahzPrK+mQVjymOG9WRSfS7mvK/Tabby 4kVgu++1pB3gleGWQpavNM9qQ3kC7hjZdoiLLoqG1Q jEWuhF5pb7Gko7gvZESSa2uXgiYx9s7bLQaXztpaTceJ5gaO91gq9jR5ZB7q0HlTrTXd9ScM1jybOnHa +8jNv4cGP6QpTmgrJ6YTfd4o12MmGYb04oqEMk81zd/G4hJeQEJzH25QyTOQVh+zy6W0kEI/yz3H8w4s Vgn88di2EYR2LAXIBYRRRwlgvjjjRW0IovpcUgNAX8 Yt+uTyHc3A/upper doubler/e9Ilpe1hUB/95FwfKWePz/otn5CItN9Jf/Q1iiZ1rSP+CGmcNMSZeu2lKx+h43jzt E60ift2YTyBS9m+tSHHi7chZSeJ1HA5uq4ed6/hSq+03VY9rphHoRw3MlspIben432pLMO5r00vLld4C 1B+rOp4ha1sfqvwJlcYZLuc6LWcKViQy3soZsp6YAf AICl5RK9Xq7Tr2GxSmUOtmiBwI3ffoL1UCjBxHforemfCq1tM+A1EeyvwgvBqnyUu/fRZviwEcc5WZ5o AXK4cuiG9nguXRF8ycTC1by4SCzajoaEzS1btcrYaRBanxq9wplQdZhaJldJuYmuq1dbEyNVZvzW6X10 cv+gTdtUSvHpwdPvNJ2PZ6Dnrp9bXIPF1fHtB1mIX7 RWJpbYnWeZMrCHnmuzoeFSpy2aaa9afo1xj5i8cNs8ac5Lo2mpETe2Yav9MVt8bAABxRqxO8k45zo5aw mP4fhQTkqv6YlxgkKEP//uCsmxXmkNJydra+ZqnfBy9Zg7CMxuGtbh9UhxdqdxTtOuZrc3NvY8xwzM+N A2L5E5mHy84rqAGa/VZ8fx1g1oF5muNnrr7Yuw5ZE0 J7cZtrO7jyMJwbBLclN3jV4F4ip8v0fWvUigSGw6jm3hDBQGn9lOmD4s+N//t/+SL2/5zXERy1hQ96u8 FpIyHR0QB9yRFtCYpEp2YABdUfGnQTxuhNmTYRKex6CDxo/O4W8y1X9hkTExJaWSUAESZNiUrWaF96o3 Vk0eUwiFzICcHWxRMpEUYdJilIFpS+ngEYCMUigQqU UuI2Q0kPONSIYsDIbcW75sZglQVtKMyK2HeNUmq2MPUWy7nwjZ9jLASKAhvXS09NgBqCbAJgUNudx23E VIB4+L1xu22G5lJddYHZKS0uHNRnb0WSlMh9RuaCBYZ4a1n6wWBySN3deFgc5WlDJGWXtMxCjrA5ZvJM pgUgeTOpjUwaQdLNrBKihnVdRgVdRtSQdNiHTQhDQi [file] 5k3VydD/QN+q28w69Ql/uDA/uDQ/gJTb7M8/7g 1wGGwcw0C2c5k0b/2Rp5W3jJjZb8hh1jS+/8XIHdu/NzBXbtbq/l4U+weqQ0rehvjI/rsCPndkkK6N/8 myoue7S3ZjTn8vN/GzsLj9n0drVx/KpXxfmVV+fKnrCKmbYerRoF406vp+B3dvTJ0BEyYd+ceuNX/n/j G2DvlnsSFl2xbDl2si6YpbJAwoabrOnyUj2a5ewLt8 R+WFp6Vz6U/Azmchq5TI1qnn/aV0Nf7Lkmw0aSGs+7hPz5qbBl7+ei/Ri/8vZj/RsnkaVyjML1Aql53E Hh0iIz2SR5Pq4SzfEmrQ/Q5/kcuyLne/U2Jm8SE/QL/9+IZyP+A/2B/kJ/Z62L9glfIrE3bdfD0s7wp7 J3P7fcUU2tVjHJ/XH8Yvqrlx6J+LcnE7IroLYbo4fK Nd/vrAf6C/8Qnu0wZZ9I+poY831kYV1PyfVn66BS+qar9Xzh2TM8Vt0C4Ax8Mp3/dr3+PnX+KsLQH/z/ GT73jtE6/qeM4iqxZ2CK6A0wN3f5ex/ruqb8kxq2+M0Ls+l1rhy38QY0Lv6EmqD/oF/Q5/wi5Jh3GXJt Rio1jo6H5Rzdu8v5ui2mM/touk5E5E0W4P8Z3L/O0a Hv0Of+9Ej5wmKON3VA+aR0bo8He8K//B6cA+SZm2ha9fWuYPwjHf1e6TnpT/YT6dQ86Ca4/TvFryIM/c c2GStszceJfm2jfC9d/YIkzj8jtanbv1qfUV1uqe5xtjxO+pcNInuqG5bHNT8vQ4Vt0t7o+IEKe0dX9/ gZVD07vU+PH86V+0Ic6bgKIQz9LCsMukD/EI/W65RW 5mtFgc0Oi+y0iskmdkmjgmR3g4MfftjJoqCAy1ym/zvXJ+fO/bKJ/cG5J+LJ/d+2K5OmVRmKv8O/Wf87 guUCqy53ki7odrvsbCjf+SO85yba1qQkE57+Wcuu09B0ukLY6Hvy56uil7/Twj5gMnmx14wH813zgggQ aktp2np0J6+b8/l4Ca5ft7wn6Bf9BQqt7ggDty4uoZ Ox+o/xSVuftOtkezUPG8+0ejZ+aHTmzizDabqsSfg5v73x+J7gQzuIt8V4Dbe1j1KeYx2QUz5k7bLC8f il/QCJq32w++OBzcLGJy3/dn/K49YH8rybz5c9oL6osFEdmtp0xoKbx/UfUvm41XkoqnHIB+yly6Bhr/ Cwov9rHa+uA9uyuS+txw7FY+uxV/HkftkquX+0Sq5v LIawqNjrf2ti/OaWl7yE+G66vP1V/ZXFf0PsTMjqhwfEG4Pd4Z/Gk777BCV55Olg+jJ1xd4xcjyAC/xK 18m9unVE+or/y0loFM3yEmdvztxlcEUQO/pL16hplChb69ntEDrz8J60B+I/6HP83NL/+n0faF9xBL6F sxFcnYa39Wr+kbU7X4l5ey+dwrZX2uHiVV1CtnA/od /QH+gP9Nl/V8/zsWvk/IH4SqK0vrio7UiEYQH5KkekRjbf17EZ9Oo0H/b4q6PG5l36tm+ukXxyjeSTC/ xqjVxvX+MRUsdd6Zurz3XWWwiEaceael/QN+nws7eAtZ2nYOh+m3yjtWvVJQQUu9vi6L/oF/Qb+g39gf 8Bn8EA19Lv3Jutrq9ALU8ZAjwd/t8QT/KrhfWrtVDe pjs8xgTGj+X3/pnu11F0R2r1KzGP+xW/TzfXtHeA4s/UtrF+tXC+yUr0vhp0v4cd28/Vg7xh8CMvpp7R eNE54xz047rU+591Rgvr3IAj98pBOrrEBxkW7Kisz9xbvd6RB/T/PH+6xb2YfzZ36LB+0vl29a+T63Xr YHw+hF2fcBkAlVS+nFpaSr9mHtyEOhjfrR81hY7Q3A 7j+H8W/z4ka2liKqnKuL6qCcre48v624I9fWFoskc7hw7m7wmgTvss7JYyz8q9649jva0ycTx0M5x344 v3e9F/70L8C+gf7EwLe3V/0F/ok1/dut23qqW1nw4Dn+vPu+R+nb49b0MQbn/q5t2b4hl7g/Lkkvha8h op2l7eaT467htQpq/cWp9v47ej/NWVPs/vqNEsO20t 39g1+eTW+sfofT1vtGu4zc8J+uzW+xkujN7K3In/tXX+ifbz76KKt7zEFiWR6geHplfv/Ump6dawk1U6 ytc5t/NmjT56LhuiwOO7FBZb3KLykCgQmyI2hqT8+1sEFuapD60K7Xmmho3g3Bsj9N22mppfAv23Tgh0 9D20mZzK5k3I31adsKn/8jwbv/KyGL/yMhq/8npo4s 8ezvrU+avqYat/o9k4d6Z3lqYXKvt2Xk6sCj2+t35I5ss/jCeq28zhIpq/5eEB/YB+ZvvR+Su1K52/2h 3A3fmruV0kr8Tx5ouB1bpU5Nr3PD+/tX6l/dH2lpeEX4Zq5IewH/Qd+l71cQ168C+1fqV+PXK/bI+cj/ ZY0G/oN/QH+gP9hT6/j/bM/d89C/QV+ck6z27Qs/FK /UejVHpupsMD8Cb8P/GgvOJXqh/xK9Wb+FWEob/F72GsEK+2ix94BHSf2MyfQ/Qd+n81bH2ws56jG/QL +eA2hu6iOEthVnePmdtT2a7hotZ3f9yy9a5v16V9N1u4Wf1G3v6Jm7Y+5xzHqj2T9bYGo4/oN/QH+gP9 fC2369K/HvTfg/570H8P+u9B/x11fxCxhO+0T94/2m dAP3M+PTPnU+6YDjl1vRrV4+850B/oL/B9gbpzC+VB/Ob8wyo3rIPkB0+u/+Y39d9k3qRqn/j07tfTgA W+NRI8duqrUM3Br9D+PcLQb+jzvOjW+Shayan+OtifhfK28l8v0lUIGklEvWOdkYo956KjzKyvrZqU/Qd8V p8g6rpzVsY10qVnu/pCIKVqDpcoyWe4y8/OKYw3u69 z0H8F+neN8+wqnGhnMN2Ic0LbnB01Tf6Sx1xKf5i9Qs7hp+PC03Xim3ys661QK7et/DM/2z8f0N/oD/Q X+fgdYyYXgqhw6ye7o6tks/QN+ng6D50y0Ak/a2rm6gd78u3r9cI+nqf9kdxaur2e2xigfi4s0K5ngWk T8g5Od14M9ifKlzolAbzB08I4poA8h5IRv+yvnbEr9 ROjF+J+o2eD5gmOxnhFGxwDG/Sudlj/EpnZc/Hr+cn1ahY2m9Q5EIR5Vt7l0D0/094x12sM622yz8iNS pA86eePvmq3WuJRD7ENBgvTohgw7pzbezOFD2nngiAV4d8UiMP5h80in28wGRoisZqy0vpQakei541wt neb5cpLnDs1ear4+3a1iNq5N/0B/uYaA7HAdvrTdQN d+A45sw74rcaqA6t/CrCHf/P+zjH+NULQz+vo0Uo3Qu1Y/eKaWF6K+IcGE7WuCmOywr8JvqBshl1dwgf Z6G8C+VdGK/YSNhT3T/dL1PP9N+j7k9gQ6xD9cLN2Hu/kHzFY3jpeQ8b604J7RqPBixyemLU+OGPC17d /N/6/xRD69Vk7S/oJ/QL+oD8tx5Bs/ftMeft3IPa2T kqjA2w72giX++Pxq/0rX2MX+kb8xi/ywJA0s3/j/5v37/k43yp3X41uS/pe/YYv/Qf7xbVJAR7/2r80f krD2/8f+P/B/qD/06gy4pq3dj1YF/S9/yhgvUr3JD11cHdv0V52Pl9MqkH+AfSnVmuq/VtzWUNFx0R1+ FW8T5a23q/3NwvO/ckbzF+5aQHe7c+32g0CF7tm2V6 cMWvivStIPzazxW/ijD0A/oB/YR+Qr+tE4Jn5CzaM76G1rzBz3185M+MR/xK+Re/QoiNA4cYiC+pDm/N 1bloxdteby2gzo20Pt73NqdxhwBs2Z8mtdA5h5piE0H0Q0+/Jqjl8IRnoMQ/meo5HTFrcgg4no8Ybpgw oG/Qd+qSUj2aacsh04tiA7cG7n94a4E8ukxYdnqf+f NtG/rkz7fh/qabu7dv10AjrD/vqa8yEszw0DZ/hoqa4gXR2+6PSsw6w6ht4e+u9Hn/9/URlE1N6q0iUm /VL1DGlm2BTqNkgNLcC4/yMPT5/Xt7nn++I88/35Hf+7uykn4zlP69ga2aazaki3y/5lusjG9ladNyds qzq0eyQ3V2zG5J9QXc37iBby/anzoP4yp32fz6J6QM wJz7mi8J1qamN/Hea/wdyc2Yg2C6pZxoy2DoKTQU6b0pFsg9T8+rQMOu3A/50tDOYjo85f6jA7MuZ/Hn eYZr/CryYOcZVD/Kr5iXVqnQfvP/KAKquuhT617n+NWdeV/yzrzffVd+71+eb485697jmt9niA1/tX6l /K+6o3IMc63AK6Cb5D/oF/QL+k87hu0Lx0N/yGful9 3x5dVrpn2KJ/sMF+fdPi9p7c0r15T00Ty8B/oJ/YR+Qb+w11kU1kVTqX7279S+L/B9i4IE2uo5Z7+b3Z Xcsv3JdK/Ki/sI45B7J+C5VA6HiT/Ke1Deg/TseJky5YFcd/o15m3eVTc/B+/35v2Ue/N+yr0V+lx/vj yv4e1z49DB53ldPoc/96/2BzVm+km3oEj4G/oF/JAPANESE+ [file] zZ94I+yjY5HkC7Di+2E17NtuKdqId98msc8/eq+6Od+Industrial Maintenance Repairer Helper+C73Sru5cjzI31Vh+Xu16iikAh97V/EVzv O36TZ8uEhiJ/kl5tXQZDRfphR+GrbAJjjk7lLwa/CH 8EP46W+FttpYrwzl+PEMYLe638g++Jh3ia+yT5qHs7Xb3rtSwxnjOukWc/q43pySw/iK9Se+kn2tC53b +qwIu5CSvY/aY7G9Nz/hLm+fui/bp/zp9oE/GeqtO8zMekoPis/gR7xP+Wts+C8pdksw2C+YlepDjo1A ahXNyubjZzBx0ZE+J97oHTcVDr8Q28FT/5xhbq64qN f5XaeV/8Pc9X02hU9ADcegK/jqAF8Z+XYNKP3Gi3G//mlH6i//dwU77nyzu+r1h4FiHnKtr3mcOprO27 u/+1gX/pDnS99+rMOToQDTdtqQB8G/pJ4l9W/8nkRg8Co0c3f5jpqjnaecb/BN+I60D37zjeF/INrcCz 8f+A/sbpK37uBoy8cFybbrfmICZU3YH/jb36Pnqhjw vY+MjrbiJy5o3Z2Lxc+yuH376gUOxef5s9s52vpHy5/r4O5y42QX+4ZNe8KQnm/gwxzwT4njxHFyG+GX T45SjaL93kTfimxQzy0DvxS5WOfIdFWXvET4Opnl1FaK29IZ1ZueFkGTU2H9kcN8I95s9LbiFV+F8TAq fs4ZFU/tZX0TzwqME939o+Xvf7s75TAgT7Q+fNWN73 MyvgF+e21c4ejsCSzqQtwEGDuCH7PUlwrE0PX+dh0g6UH+ECuMHhAKqER46cE+kM+YLkassghezh3sJN 2U6fUrxBPk6vnC2P6+ibIXPVH3+ye2PH+q/RH/CuVZ+PnMJnwTvgnfhe/Cl/3lDD27BsccLKeEvvnTQ+ SX2Fj87SkjD9ndoC+U751b+Ef4+j1qt1X0MMzfhvVE Yd+ONl8V7+sSlb2rGLsgX+3bWRb+kOfLnuGIffsR+/qgnvFub52yBm+jCkWJU79xs+HL/JK3HTaiOVhi jt12z20LU8b/6IH+WxnEemOn0FC+Johann/ArHg1DiQj3ag62lylabGs+FIfIazyz/k2ObUci54fvI55nIy [file] NSAwIFIKCj4+JyP5HPV4sFEuXxrbFGr7NdaWMHZAI8E= ID Date Data Source [id number] 04/26/2020 10:43:17 AM EDT [facility] Name Value Range Interpretation Code Description Data Apurva rce(s) Supporting Document(s) HEMOGLOBIN A1C @ 5.1 % (4.0-6.0) [facility] Performed using Siemens Bethel immunoassa y.Care must be taken when interpreting PpB6jolcldmr in patients with a hemoglobin variantor decreased erythrocyte lifespan. Values 5.7 - 6.4% suggest prediabetes.Values >=6.5% are diagnostic for diabetes.REFERENCE: DIABETES CARE 2018: 41(S13-S27).PERFORMED AT [address] [facility] [address] EST AVERAGE GLUCOSE 100 mg/dL [facility] ID Date Data Source [id number] 04/26/2020 04:25:54 AM EDT [facility] SPEC EXP DATE 04/28/2020PATI ENT ABO/Rh A POSITIVEANTIBODY SCREEN NEGATIVETESTING SITE PERFORMED AT [address] [facility] [id number] Name Value Range Interpretation Code Description Data Apurva rce(s) Supporting Document(s) ID Date Data Source [id number] 04/25/2020 11:30:28 PM EDT [facility] Name Value Range Interpretation Code Description Data Apurva rce(s) Supporting Document(s) TROPONIN I <0.05 ng/mL (<0.05) [facility] [place] Less than 0.05: Myocardial injury unlike lyGreater than or equal to 0.05: Highly suggestive of myocardial injuryCorrelation with rise and/or fall ofserial troponins, clinical symptomsand ECG changes is necessary. ID Date Data Source [id number] 04/25/2020 11:30:28 PM EDT [facility] Name Value Range Interpretation Code Description Data Apurva rce(s) Supporting Document(s) SODIUM 134 mmol/L (136-145) L [facility] POTASSIUM 3.7 mmol/L (3.6-5.2) [facility] CHLORIDE 101 mmol/L (100-108) [facility] CO2 8 mmol/L (22-31) LL [facility] RESULT(S) CALLED TO AND READ BACK NAEEM GIL AT [facility] ON 04/25/2020 [place] [address] [place] [id number] ANION GAP 25 mmol/L (7-16) H [facility] RESULTS REVIEWED UREA NITROGEN 10 mg/dL (7-24) [facility] CREATININE 0.86 mg/dL (0.60-1.00) [facility] BUN/CREAT RATIO 11.6 RATIO (10.0-20.0) [facility] GLUCOSE 106 mg/dL (70-99) H [facility] CALCIUM 8.1 mg/dL (8.4-10.2) L [facility] GFR >60 ml/min/1.73m2 (>59) [facility] GFR ( AMER) >60 ml/min/1.73m2 (>59) [facility] GFR [facility]PRETATION [facility] --NORMAL KIDNEY FUNCTION OR MILD DISEASE - GFR >OR= 60CHRONIC KIDNEY DISEASE - GFR 15 - 59RENAL FAILURE - GFR <15 Est. GFR calculation based on the MDRDstudy equation, which assumes a steadystate for creatinine. Est. GFR should notbe used for medication dosing. ID Date Data Source [id number] 04/25/2020 11:30:28 PM EDT [facility] Name Value Range Interpretation Code Description Data Apurva rce(s) Supporting Document(s) TOTAL PROTEIN 7.5 g/dL (6.4-8.2) [facility] ALBUMIN 3.8 g/dL (3.2-4.5) [facility] GLOBULIN 3.7 g/dL (2.7-4.3) [facility] ALB/GLOB RATIO 1.0 RATIO [facility] BILIRUBIN,TOTAL 1.5 mg/dL (0.0-1.0) H [facility] PLEASE NOTE:Total bilirubin results may be falselyelevated in patients taking Eltrombopag. BILIRUBIN,CONJUGATED 0.9 mg/dL (0.0-0.3) H [facility] BILIRUBIN,UNCONJ. 0.6 mg/dL (0.0-0.7) [facility] ALKALINE PHOSPHATASE 125 U/L (45-117) H [facility] AST (SGOT) 201 U/L (11-39) H [facility] ALT (SGPT) 142 U/L (12-78) H [facility] ID Date Data Source [id number] 04/25/2020 11:30:28 PM EDT [facility] Name Value Range Interpretation Code Description Data Apurva rce(s) Supporting Document(s) LIPASE 852 U/L (65-230) H [facility] ID Date Data Source [id number] 04/25/2020 11:06:55 PM EDT [facility] Name Value Range Interpretation Code Description Data Apurva rce(s) Supporting Document(s) PT 10.9 s (9.2-11.9) [facility] PERFORMED AT [address] [facility] [id number] INR 1.04 [facility] SUGGESTED THERAPEUTIC RANGES USING INR F ORSTABILIZED ANTICOAGULATED PATIENTS:STANDARD DOSE THERAPY INR 2.0-3.0 DVT, PE, PREVENT DVT OR EMBOLISMHIGH DOSE THERAPY INR 2.5-3.5 PREVENT EMBOLISM FROM MECHANICAL HEART VALVE ID Date Data Source [id number] 04/25/2020 10:57:27 PM EDT [facility] Name Value Range Interpretation Code Description Data Apurva rce(s) Supporting Document(s) WBC 6.1 10*3/uL (4.1-11.0) [facility] [place] RBC 3.33 10*6/uL (4.00-5.40) L [facility] HGB 10.5 g/dL (12.0-16.0) L [facility] HCT 31.9 % (36.0-47.0) L [facility] MCV 96.0 fL (80.0-95.0) H [facility] MCH 31.7 pg (27.0-32.0) [facility] MCHC 33.0 g/dL (32.0-36.0) [facility] RDW 15.4 % (10.5-14.5) H [facility] PLT 148 10*3/uL (150-450) L [facility] MPV 8.5 fL (7.1-10.7) [facility] NEUT % 80.6 % (35.0-75.0) H [facility] LYMPH % 12.8 % (16.0-52.0) L [facility] MONO % 6.0 % (0.0-8.0) [facility] EOS % 0.1 % (0.0-5.0) [facility] BASO % 0.5 % (0.0-4.0) [facility] NEUT # 4.9 10*3/uL (1.8-7.7) [facility] LYMPH # 0.8 10*3/uL (1.2-4.8) L [facility] MONO # 0.4 10*3/uL (0.0-0.8) [facility] Eosinophils [#/volume] in Blood by Automated count 0.0 10*3/uL (0.0-0 .5) [facility] BASO # 0.0 10*3/uL (0.0-0.2) [facility] Procedure Social History Code Duration Value Status Description Data Source(s ) Smoking 06/20/2021 12:00:00 AM EDT Unknown if ever smoked comp leted Unknown if ever smoked [facility] ([facility]) Smoking 06/08/2021 12:00:00 AM EDT Current Smoker completed Curre nt Smoker eCW1 ([facility]) Smoking 06/08/2021 12:00:00 AM EDT Current Smoker completed Curre nt Smoker eCW1 ([facility]) Smoking 06/08/2021 12:00:00 AM EDT Current Smoker completed Curre nt Smoker eCW1 ([facility]) Smoking 06/05/2021 12:00:00 AM EDT Current Smoker completed Curre nt Smoker eCW1 ([facility]) Smoking 05/15/2021 12:00:00 AM EDT Current Smoker completed Curre nt Smoker eCW1 ([facility]) Smoking 05/04/2021 12:00:00 AM EDT Current Smoker completed Curre nt Smoker eCW1 ([facility]) Smoking 05/04/2021 12:00:00 AM EDT Current Smoker completed Curre nt Smoker eCW1 ([facility]) Smoking 05/04/2021 12:00:00 AM EDT Current Smoker completed Curre nt Smoker eCW1 ([facility]) Smoking 05/04/2021 12:00:00 AM EDT Current Smoker completed Curre nt Smoker eCW1 ([facility]) Smoking 04/12/2021 12:00:00 AM EDT Current Smoker completed Curre nt Smoker eCW1 ([facility]) Smoking 04/12/2021 12:00:00 AM EDT Current Smoker completed Curre nt Smoker eCW1 ([facility]) Smoking 04/05/2021 12:00:00 AM EDT Unknown if ever smoked comp leted Unknown if ever smoked [facility] ([facility]) Smoking 03/07/2021 12:00:00 AM EDT Unknown if ever smoked comp leted Unknown if ever smoked [facility] ([facility]) Smoking 01/16/2021 12:00:00 AM EDT Unknown if ever smoked comp leted Unknown if ever smoked [facility] ([facility]) Smoking 01/09/2021 12:00:00 AM EDT Unknown if ever smoked comp leted Unknown if ever smoked [facility] ([facility]) Smoking 01/01/2021 12:00:00 AM EDT Current Smoker completed Curre nt Smoker eCW1 ([facility]) Smoking 01/01/2021 12:00:00 AM EDT Current Smoker completed Curre nt Smoker eCW1 ([facility]) Smoking 01/01/2021 12:00:00 AM EDT Current Smoker completed Curre nt Smoker eCW1 ([facility]) Smoking 01/01/2021 12:00:00 AM EDT Current Smoker completed Curre nt Smoker eCW1 ([facility]) Smoking 01/01/2021 12:00:00 AM EDT Current Smoker completed Curre nt Smoker eCW1 ([facility]) Smoking 12/26/2020 12:00:00 AM EDT Unknown if ever smoked comp leted Unknown if ever smoked [facility] ([facility]) Smoking 12/19/2020 12:00:00 AM EDT Unknown if ever smoked comp leted Unknown if ever smoked [facility] ([facility]) Smoking 12/12/2020 12:00:00 AM EDT Unknown if ever smoked comp leted Unknown if ever smoked [facility] ([facility]) Smoking 11/21/2020 12:00:00 AM EDT Unknown if ever smoked comp leted Unknown if ever smoked [facility] ([facility]) Smoking 11/14/2020 12:00:00 AM EDT Unknown if ever smoked comp leted Unknown if ever smoked [facility] ([facility]) Smoking 10/19/2020 12:00:00 AM EST Unknown if ever smoked comp leted Unknown if ever smoked [facility] ([facility]) Smoking 10/17/2020 12:00:00 AM EST Unknown if ever smoked comp leted Unknown if ever smoked [facility] ([facility]) Smoking 10/02/2020 12:00:00 AM EST Current Smoker completed Curre nt Smoker eCW1 ([facility]) Smoking 10/02/2020 12:00:00 AM EST Current Smoker completed Curre nt Smoker eCW1 ([facility]) Smoking 10/02/2020 12:00:00 AM EST Current Smoker completed Curre nt Smoker eCW1 ([facility]) Smoking 10/02/2020 12:00:00 AM EST Current Smoker completed Curre nt Smoker eCW1 ([facility]) Smoking 10/02/2020 12:00:00 AM EST Current Smoker completed Curre nt Smoker eCW1 ([facility]) Smoking 10/02/2020 12:00:00 AM EST Current Smoker completed Curre nt Smoker eCW1 ([facility]) Smoking 09/27/2020 12:00:00 AM EST Unknown if ever smoked comp leted Unknown if ever smoked [facility] ([facility]) Smoking 09/05/2020 12:00:00 AM EST Unknown if ever smoked comp leted Unknown if ever smoked [facility] ([facility]) Smoking 08/30/2020 12:00:00 AM EST Current Smoker completed Curre nt Smoker eCW1 ([facility]) Smoking 08/30/2020 12:00:00 AM EST Current Smoker completed Curre nt Smoker eCW1 ([facility]) Smoking 08/30/2020 12:00:00 AM EST Current Smoker completed Curre nt Smoker eCW1 ([facility]) Smoking 08/30/2020 12:00:00 AM EST Current Smoker completed Curre nt Smoker eCW1 ([facility]) Smoking 08/30/2020 12:00:00 AM EST Current Smoker completed Curre nt Smoker eCW1 ([facility]) Smoking 08/22/2020 12:00:00 AM EST Unknown if ever smoked comp leted Unknown if ever smoked [facility] ([facility]) Smoking 07/28/2020 12:00:00 AM EST Unknown if ever smoked comp leted Unknown if ever smoked [facility] ([facility]) Smoking 07/25/2020 12:00:00 AM EST Unknown if ever smoked comp leted Unknown if ever smoked [facility] ([facility]) Smoking 07/11/2020 12:00:00 AM EST Current Smoker completed Curre nt Smoker eCW1 ([facility]) Smoking 07/11/2020 12:00:00 AM EST Current Smoker completed Curre nt Smoker eCW1 ([facility]) Smoking 07/04/2020 12:00:00 AM EST Unknown if ever smoked comp leted Unknown if ever smoked [facility] ([facility]) Smoking 06/20/2020 12:00:00 AM EDT Unknown if ever smoked comp leted Unknown if ever smoked [facility] ([facility]) Smoking 06/06/2020 12:00:00 AM EDT Unknown if ever smoked comp leted Unknown if ever smoked [facility] ([facility]) Smoking 04/26/2020 08:03:00 AM EDT Daily Smoker completed Daily [facility] Smoking 04/26/2020 12:00:00 AM EDT Unknown if ever smoked comp leted Unknown if ever smoked [facility] ([facility]) Vital Signs ID Date Data Source UNK Name Value Range Interpretation Code Description Data Source(s) Body weight 156 [lb_av] 156 [lb_av] eCW1 ([facility]) Body weight 70.76 kg 70.76 kg eCW1 ([facility]) Body height [in_i] eCW1 ([facility]) Body mass index (BMI) [Ratio] 28.08 kg/m2 28.08 kg/m2 eCW1 ([facility]) Heart rate 116 /min 116 /min eCW1 ([facility]) Respiratory rate 18 /min 18 /min eCW1 ([facility]) Body temperature 97.8 [degF] 97.8 [degF] eCW1 ( [facility]) Systolic blood pressure 132 mm[Hg] 132 mm[Hg] e CW1 ([facility]) Diastolic blood pressure 78 mm[Hg] 78 mm[Hg] eCW1 ([facility]) Body height 0.00 in Normal (applies to non-numeric resu lts) 0.00 in [facility] ([facility]) Body weight Measured 0.00 lbs Normal (applies to n on-numeric results) 0.00 lbs [facility] ([facility]) Body mass index (BMI) [Ratio] 0.00 kg/m2 No rmal (applies to non-numeric results) 0.00 kg/m2 [facility] ([facility]) Systolic blood pressure 0 mm[Hg] Normal (applies t o non-numeric results) 0 mm[Hg] [facility] ([facility]) Diastolic blood pressure 0 mm[Hg] Normal (applies to non-numeric results) 0 mm[Hg] [facility] ([facility]) Body weight 162 [lb_av] 162 [lb_av] eCW1 ([facility]) Body height [in_i] eCW1 ([facility]) Body mass index (BMI) [Ratio] 29.15 kg/m2 29.15 kg/m2 eCW1 ([facility]) Heart rate 107 /min 107 /min eCW1 ([facility]) Respiratory rate 18 /min 18 /min eCW1 ([facility]) Body temperature 95.1 [degF] 95.1 [degF] eCW1 ( [facility]) Systolic blood pressure 132 mm[Hg] 132 mm[Hg] e CW1 ([facility]) Diastolic blood pressure 82 mm[Hg] 82 mm[Hg] eCW1 ([facility]) Body weight Measured 0.00 lbs Normal (applies to n on-numeric results) 0.00 lbs [facility] ([facility]) Body height 0.00 in Normal (applies to non-numeric resu lts) 0.00 in [facility] ([facility]) Body mass index (BMI) [Ratio] 0.00 kg/m2 No rmal (applies to non-numeric results) 0.00 kg/m2 [facility] ([facility]) Systolic blood pressure 0 mm[Hg] Normal (applies t o non-numeric results) 0 mm[Hg] [facility] ([facility]) Diastolic blood pressure 0 mm[Hg] Normal (applies to non-numeric results) 0 mm[Hg] [facility] ([facility]) Body height 0.00 in Normal (applies to non-numeric resu lts) 0.00 in [facility] ([facility]) Body weight Measured 0.00 lbs Normal (applies to n on-numeric results) 0.00 lbs [facility] ([facility]) Body mass index (BMI) [Ratio] 0.00 kg/m2 No rmal (applies to non-numeric results) 0.00 kg/m2 [facility] ([facility]) Systolic blood pressure 0 mm[Hg] Normal (applies t o non-numeric results) 0 mm[Hg] [facility] ([facility]) Diastolic blood pressure 0 mm[Hg] Normal (applies to non-numeric results) 0 mm[Hg] [facility] ([facility]) Body height 0.00 in Normal (applies to non-numeric resu lts) 0.00 in [facility] ([facility]) Body weight Measured 0.00 lbs Normal (applies to n on-numeric results) 0.00 lbs [facility] ([facility]) Body mass index (BMI) [Ratio] 0.00 kg/m2 No rmal (applies to non-numeric results) 0.00 kg/m2 [facility] ([facility] [address] [facility]) Systolic blood pressure 0 mm[Hg] Normal (applies t o non-numeric results) 0 mm[Hg] [facility] ([facility]) Diastolic blood pressure 0 mm[Hg] Normal (applies to non-numeric results) 0 mm[Hg] [facility] ([facility]) Body weight 157 [lb_av] 157 [lb_av] eCW1 ([facility]) Body height [in_i] eCW1 ([facility]) Body mass index (BMI) [Ratio] 28.25 kg/m2 28.25 kg/m2 W1 ([facility]) Heart rate 102 /min 102 /min W1 ([facility]) Respiratory rate 18 /min 18 /min W1 ([facility]) Body temperature 96.8 [degF] 96.8 [degF] eCW1 ( [facility]) Systolic blood pressure 148 mm[Hg] 148 mm[Hg] e CW1 ([facility]) Diastolic blood pressure 72 mm[Hg] 72 mm[Hg] eCW1 ([facility]) Body height 0.00 in Normal (applies to non-numeric resu lts) 0.00 in [facility] ([facility]) Body weight Measured 0.00 lbs Normal (applies to n on-numeric results) 0.00 lbs [facility] ([facility]) Body mass index (BMI) [Ratio] 0.00 kg/m2 No rmal (applies to non-numeric results) 0.00 kg/m2 [facility] ([facility]) Systolic blood pressure 0 mm[Hg] Normal (applies t o non-numeric results) 0 mm[Hg] [facility]) Diastolic blood pressure 0 mm[Hg] Normal (applies to non-numeric results) 0 mm[Hg] [facility] ([facility]) Body weight 155 [lb_av] 155 [lb_av] eCW1 ([facility]) Body height [in_i] eCW1 ([facility]) Body mass index (BMI) [Ratio] 27.90 kg/m2 27.90 kg/m2 eCW1 ([facility]) Heart rate 97 /min 97 /min W1 ([facility]) Respiratory rate 17 /min 17 /min W1 ([facility]) Body temperature 97.4 [degF] 97.4 [degF] eCW1 ( [facility]) Systolic blood pressure 138 mm[Hg] 138 mm[Hg] e CW1 ([facility]) Diastolic blood pressure 82 mm[Hg] 82 mm[Hg] eCW1 ([facility]) Body height 0.00 in Normal (applies to non-numeric resu lts) 0.00 in [facility] ([facility]) Body weight Measured 0.00 lbs Normal (applies to n on-numeric results) 0.00 lbs [facility] ([facility]) Body mass index (BMI) [Ratio] 0.00 kg/m2 No rmal (applies to non-numeric results) 0.00 kg/m2 [facility] ([facility]) Systolic blood pressure 0 mm[Hg] Normal (applies t o non-numeric results) 0 mm[Hg] [facility] ([facility]) Diastolic blood pressure 0 mm[Hg] Normal (applies to non-numeric results) 0 mm[Hg] [facility] ([facility]) Body weight 144 [lb_av] 144 [lb_av] eCW1 ([facility]) Body height [in_i] eCW1 ([facility]) Body mass index (BMI) [Ratio] 25.92 kg/m2 25.92 kg/m2 eCW1 ([facility]) Heart rate 112 /min 112 /min eCW1 ([facility]) Respiratory rate 18 /min 18 /min eCW1 ([facility]) Body temperature 96.8 [degF] 96.8 [degF] eCW1 ( [facility]) Systolic blood pressure 132 mm[Hg] 132 mm[Hg] e CW1 ([facility]) Diastolic blood pressure 84 mm[Hg] 84 mm[Hg] eCW1 ([facility]) Systolic blood pressure 124 mm[Hg] Normal (applies t o non-numeric results) 124 mm[Hg] [facility] Diastolic blood pressure 72 mm[Hg] Normal (applies to non-numeric results) 72 mm[Hg] [facility] Heart rate 97 min Normal (applies to non-numeric resul ts) 97 min [facility] Respiratory rate 18 min Normal (applies to non-numeric results) 18 min [facility] Body temperature 37.2 isabell Normal (applies to non-numeric results) 37.2 isabell [facility] Deprecated Oxygen saturation in Capillary blood by Oximetry 97 % Normal (applies to non-numeric results) 97 % [facility] Body height 159.7152 cm Normal (applies to non-numeric res ults) 159.7152 cm [facility] Body mass index (BMI) [Ratio] 26.09 kg/m2 No rmal (applies to non-numeric results) 26.09 kg/m2 [facility] Body weight Measured 66.8 kg Normal (applies to non-num hilda results) 66.8 kg [facility] Inhaled oxygen concentration 40 % Normal (appl ies to non-numeric results) 40 % [facility] ID Date Data Source [id number] 12/11/2020 08:00:00 AM EDT [facility] spital Name Value Range Interpretation Code Description Data Source(s) Weight (Calculated Kilograms) 68.04 68.04 [facility] Weight 2400 2400 [facility] pital Temperature Source 7 7 [facility] Temperature 97.7 97.7 [facility] spital Respiratory Effort 1 1 [facility] Respiratory Rate 18 18 [facility] Pulse Assessment Method 4 4 [facility] Pulse Rate 84 84 [facility] pital Height (Calculated Centimeters) 160.02 160. 02 [facility] Height 63 63 [facility] pital Blood Pressure 147/79 147/79 [facility] Body Mass Index (BMI) 26.5 26.5 [facility] Weight (Calculated Kilograms) 68.04 68.04 [facility] Weight 2400 2400 [facility] pital Temperature Source 7 7 [facility] Temperature 97.7 97.7 [facility] spital Respiratory Effort 1 1 [facility] Respiratory Rate 18 18 [facility] Pulse Assessment Method 4 4 [facility] Pulse Rate 84 84 [facility] pital Height (Calculated Centimeters) 160.02 160. 02 [facility] Height 63 63 [facility] pital Blood Pressure 147/79 147/79 [facility] Body Mass Index (BMI) 26.5 26.5 [facility] Weight (Calculated Kilograms) 68.04 68.04 [facility] Weight 2400 2400 [facility] pital Temperature Source 7 7 [facility] Temperature 98.6 98.6 [facility] spital Respiratory Effort 1 1 [facility] Respiratory Rate 18 18 [facility] Pulse Assessment Method 4 4 [facility] Pulse Rate 73 73 [facility] pital Height (Calculated Centimeters) 160.02 160. 02 [facility] 63 63 [facility] 133/88 133/88 [facility] Body Mass Index (BMI) 26.5 26.5 [facility] Weight (Calculated Kilograms) 68.04 68.04 [facility] Weight 2400 2400 [facility] pital Temperature Source 7 7 [facility] Temperature 98.0 98.0 [facility] Respiratory Effort 1 1 [facility] Respiratory Rate 16 16 [facility] Pulse Assessment Method 4 4 [facility] Pulse Rate 87 87 [facility] pital Height (Calculated Centimeters) 160.02 160. 02 [facility] Height 63 63 [facility] pital Blood Pressure 114/74 114/74 [facility] Body Mass Index (BMI) 26.5 26.5 [facility] Weight (Calculated Kilograms) 68.04 68.04 [facility] Weight 2400 2400 [facility] pital Temperature Source 7 7 [facility] Temperature 98.0 98.0 [facility] spital Respiratory Effort 1 1 [facility] Respiratory Rate 16 16 [facility] Pulse Assessment Method 4 4 [facility] Pulse Rate 114 114 [facility] pital Height (Calculated Centimeters) 160.02 160. 02 [facility] Height 63 63 [facility] pital Blood Pressure 109/68 109/68 [facility] Body Mass Index (BMI) 26.5 26.5 [facility] Weight (Calculated Kilograms) 68.04 68.04 [facility] Weight 2400 2400 [facility] pital Temperature Source 7 7 [facility] Temperature 98.0 98.0 [facility] spital Respiratory Effort 1 1 [facility] Respiratory Rate 16 16 [facility] Pulse Assessment Method 4 4 [facility] Pulse Rate 114 114 [facility] pital Height (Calculated Centimeters) 160.02 160. 02 [facility] Height 63 63 [facility] pital Blood Pressure 109/68 109/68 [facility] Body Mass Index (BMI) 26.5 26.5 [facility] Weight (Calculated Kilograms) 68.67 68.67 [facility] Height (Calculated Centimeters) 160.02 160. 02 [facility] Body Mass Index (BMI) 26.8 26.8 [facility] ID Date Data Source [id number] 12/05/2020 07:49:00 PM EDT [facility] spital Name Value Range Interpretation Code Description Data Source(s) Weight Measurement Method 1 1 [facility] Weight (Calculated Kilograms) 69.22 69.22 [facility] Weight 2441.6 2441.6 [facility] pital Temperature Source 3 3 [facility] Temperature 97.3 97.3 [facility] Respiratory Effort 1 1 [facility] Respiratory Rate 18 18 [facility] Pulse Assessment Method 4 4 [facility] Pulse Rate 106 106 [facility] pital Height (Calculated Centimeters) 160.02 160. 02 [facility] Height 63 63 [facility] pital Blood Pressure 128/81 128/81 [facility] Body Mass Index (BMI) 27.0 27.0 [facility] Weight Measurement Method 1 1 [facility] Weight (Calculated Kilograms) 69.22 69.22 [facility] Weight 2441.6 2441.6 [facility] pital Temperature Source 3 3 [facility] Temperature 97.3 97.3 [facility] Respiratory Effort 1 1 [facility] Respiratory Rate 18 18 [facility] Pulse Assessment Method 4 4 [facility] Pulse Rate 106 106 [facility] pital Height (Calculated Centimeters) 160.02 160. 02 [facility] Height 63 63 [facility] pital Blood Pressure 128/81 128/81 [facility] Body Mass Index (BMI) 27.0 27.0 [facility] Weight Measurement Method 1 1 [facility] Weight (Calculated Kilograms) 69.22 69.22 [facility] Weight 2441.6 2441.6 [facility] pital Temperature Source 3 3 [facility] Temperature 97.6 97.6 [facility] spital Respiratory Effort 1 1 [facility] Respiratory Rate 18 18 [facility] Pulse Assessment Method 4 4 [facility] Pulse Rate 106 106 [facility] pital Height (Calculated Centimeters) 160.02 160. 02 [facility] Height 63 63 [facility] pital Blood Pressure 147/97 147/97 [facility] Body Mass Index (BMI) 27.0 27.0 [facility] Weight Measurement Method 1 1 [facility] Weight (Calculated Kilograms) 69.22 69.22 [facility] Weight 2441.6 2441.6 [facility] pital Temperature Source 7 7 [facility] Temperature 98.7 98.7 [facility] spital Respiratory Effort 1 1 [facility] Respiratory Rate 19 19 [facility] Pulse Assessment Method 4 4 [facility] 104 104 [facility] Height (Calculated Centimeters) 160.02 160. 02 [facility] Height 63 63 [facility] Blood Pressure 138/79 138/79 [facility] Body Mass Index (BMI) 27.0 27.0 [facility] Patient Treatment Plan of Care Planned Activity Planned Date Details Description Data Source (s) Mupirocin 0.02 MG/MG Topical Ointment 05/04/2021 12:00:00 AM EDT eCW1 ([facility]) Mupirocin 0.02 MG/MG Topical Ointment 05/04/2021 12:00:00 AM EDT eCW1 ([facility]) Mupirocin 0.02 MG/MG Topical Ointment 05/04/2021 12:00:00 AM EDT eCW1 ([facility]) Mupirocin 0.02 MG/MG Topical Ointment 05/04/2021 12:00:00 AM EDT eCW1 ([facility]) ferrous gluconate 324 MG Oral Tablet 04/13/2021 12:00:00 AM EDT eCW1 ([facility]) Nicotine 2 MG Chewing Gum 04/13/2021 12:00:00 AM EDT eCW1 ([facility]) ferrous gluconate 324 MG Oral Tablet 04/13/2021 12:00:00 AM EDT eCW1 ([facility]) Nicotine 2 MG Chewing Gum 04/13/2021 12:00:00 AM EDT eCW1 ([facility]) Prolia 60mg/ml 09/01/2020 12:00:00 AM EST eCW1 ([facility]) Prolia 60mg/ml 09/01/2020 12:00:00 AM EST eCW1 ([facility]) Prolia 60mg/ml 09/01/2020 12:00:00 AM EST eCW1 ([facility]) ferrous gluconate 324 MG Oral Tablet 08/31/2020 12:00:00 AM EST eCW1 ([facility]) ferrous gluconate 324 MG Oral Tablet 08/31/2020 12:00:00 AM EST eCW1 ([facility]) ferrous gluconate 324 MG Oral Tablet 08/31/2020 12:00:00 AM EST eCW1 ([facility]) ferrous gluconate 324 MG Oral Tablet 08/31/2020 12:00:00 AM EST eCW1 ([facility]) ferrous gluconate 324 MG Oral Tablet 08/31/2020 12:00:00 AM EST eCW1 ([facility]) Hydrocortisone 25 MG/ML Topical Cream 06/21/2020 12:00:00 AM EDT eCW1 ([facility]) Hydrocortisone 25 MG/ML Topical Cream 06/21/2020 12:00:00 AM EDT eCW1 ([facility]) Hydrocortisone 25 MG/ML Topical Cream 06/21/2020 12:00:00 AM EDT eCW1 ([facility]) Hydrocortisone 25 MG/ML Topical Cream 06/21/2020 12:00:00 AM EDT eCW1 ([facility]) Hydrocortisone 25 MG/ML Topical Cream 06/21/2020 12:00:00 AM EDT eCW1 ([facility]) Hydrocortisone 25 MG/ML Topical Cream 06/21/2020 12:00:00 AM EDT eCW1 ([facility]) Hydrocortisone 25 MG/ML Topical Cream 06/21/2020 12:00:00 AM EDT eCW1 ([facility]) Hydrocortisone 25 MG/ML Topical Cream 06/21/2020 12:00:00 AM EDT eCW1 ([facility]) Hydrocortisone 25 MG/ML Topical Cream 06/21/2020 12:00:00 AM EDT eCW1 ([facility]) Hydrocortisone (Perianal) 1 % 05/18/2020 01:00:00 AM EDT [facility] ([facility]) Cranberry Ultra Strength 250-60 MG 05/18/2020 01:00:00 AM EDT [facility] ([facility]) Vagisil Maximum Strength 20-3 % 05/18/2020 01:00:00 AM EDT [facility] ([facility]) Atorvastatin Calcium 80 MG 05/15/2020 01:00:00 AM EDT [facility] ([facility]) Citalopram Hydrobromide 20 MG 05/15/2020 01:00:00 AM EDT [facility] ([facility]) Eliquis 2.5 MG 05/15/2020 01:00:00 AM EDT [facility] ([facility]) Pantoprazole Sodium 40 MG 05/15/2020 01:00:00 AM EDT [facility] ([facility]) Sucralfate 1 GM 05/15/2020 01:00:00 AM EDT [facility] ([facility]) Vitamin D3 1000 UNIT 05/15/2020 01:00:00 AM EDT [facility] ([facility]) Calcium 600+D3 600-800 MG-UNIT 05/15/2020 01:00:00 AM EDT [facility] ([facility]) C-1000 1000 MG 05/15/2020 01:00:00 AM EDT [facility] ([facility]) Benadryl Allergy 25 MG 05/15/2020 01:00:00 AM EDT [facility] ([facility]) Aleve 220 MG 05/15/2020 01:00:00 AM EDT N [facility] ([facility]) Ibuprofen 200 MG 05/15/2020 01:00:00 AM EDT [facility] ([facility]) Stress B Complex/Iron 05/15/2020 01:00:00 AM EDT [facility] ([facility]) Melatonin 10 MG 05/15/2020 01:00:00 AM EDT [facility] ([facility]) Tums Extra Strength 750 750 MG 05/15/2020 01:00:00 AM EDT [facility] ([facility]) Neosporin Original 05/15/2020 01:00:00 AM EDT [facility])
[2021-06-24 10:48] LABS: ALT/SGPT 34 U/L (12-78); BILIRUBIN,TOTAL 1.1 MG/DL (0.2-1.0); BLOOD UREA NITROGEN 9 MG/DL (7-18); CARBON DIOXIDE LEVEL 24 MEQ/L (21-32); CHLORIDE LEVEL 88 MEQ/L (98-107); CREATININE FOR GFR 1.33 MG/DL (0.55-1.30); ETHYL ALCOHOL (ETHANOL) < 0.003 % (0.000-0.010); GLOMERULAR FILTRATION RATE 42.1 (>45); GLUCOSE, FASTING 122 MG/DL (70-100); LIPASE 34 U/L (73-393); MAGNESIUM LEVEL 1.3 MG/DL (1.8-2.4); SODIUM LEVEL 124 MEQ/L (136-145); TOTAL PROTEIN 5.7 GM/DL (6.4-8.2)
[2021-06-24] MEDS ORDERED: MAG SULF 1GM/100ML (MAG RUN) 1 GM in IV 1 EA IV ONE (11:15)
[2021-06-24 12:15] LABS: OSMOLALITY SERUM 253 MOSM/KG (280-301)
[2021-06-24 12:21] LABS: FREE T4 1.71 NG/DL (0.76-1.46)
--- NOTE | 2021-06-24 12:56 | HPEPDOC ---
[facility] Medical History & Physical Date of Admission Jun 24, 2021 Date of Service: Jun 24, 2021 History and Physical CHIEF COMPLAINT: diarrhea HISTORY OF PRESENT ILLNESS: 71 year old female presents for several week history of persistent, worsening diarrhea. Patient also notes several day history of generalized weakness, dizziness and malaise. She notes poor oral intake, especially with solids, but has been able to tolerate minimal liquids. She also has had chronic abdominal pain for the past several weeks, however she has developed a distended abdomen over the past few days. She denies any sick contacts. She was recently admitted for chronic diarrhea, and underwent a colonoscopy with no acute findings. She denies chest pain, SOB, COATES, changes in vision or depressed mood. PAST MEDICAL HISTORY: #HLD #nicotine abuse #alcohol abuse #chronic diarrhea SOCIAL HISTORY: Nicotine abuse, 1ppd x 45-50 years. Alcohol abuse, cannot quantify amount. Denies any episodes of withdrawal. FAMILY HISTORY: Reviewed with patient, she is not aware of her parents medical history. They are both . ALLERGIES: Please see below. REVIEW OF SYSTEMS: Negative except as per HPI. HOME MEDICATIONS: Please see below. PHYSICAL EXAMINATION: VITAL SIGNS: See below General: NAD, lying comfortably in bed HEENT: NC/AT, EOMI Lungs; CTA B/L Heart: +S1S2, no murmurs Abd: distended, soft, +BS Ext: no edema Neuro: no gross focal deficits Psych: AAOx3 LABORATORY DATA: See below. MICROBIOLOGY: Please see below. A/P: 71F presents for persistent diarrhea, with weakness and dizziness. Found to be in acute kidney injury, with hyponatremia, new ascites and pancolitis. PMHx includes HLD, chronic diarrhea (with a recent hospitalization 06/01 and ED visit 06/12 for similar presentations), EtOH abuse. #pancolitis/diarrhea - clear liquid diet - cipro/flagyl IV - check GI panel - recent admission with GI consultation and workup #hyponatremia - check serum/urine osmolality, urine electrolytes - renal consultation - discussed with nephrology - assistance appreciated - gentle hydration with NS - f/u BMP later today #LATASHA - check UA, urine electrolytes/creatinine - CT A/P negative for any obstruction or hydronephrosis - renal consultation - gentle hydration - f/u BMP later today #HLD - continue statin #depression - continue home meds #ascites - will re-eval tomorrow - likely paracentesis - check INR in am, hold am heparin SC - caution with IV fluids #nicotine abuse - will implement nicotine replacement therapy #alcohol abuse - tox screen - EtOH negative on admission - monitor for s/s of withdrawal - MVI, folate, thiamine #DVT prophylaxis - heparin SC, hold am dose for likely paracentesis Disposition: anticipating >2 midnight stay, admitting to inpatient, pending clinical improvement Vital Signs Vital Signs Date Time Temp Pulse Resp B/P (MAP) Pulse Ox O2 Delivery O2 Flow Rate FiO2 06/24/21 10:18 84 96 06/24/21 09:33 117/58 (77) 06/24/21 06:26 96.8 20 Room Air Laboratory Data Labs 24H Laboratory Tests 2 06/24/21 08:26: Immature Granulocyte % (Auto) 0.7, Neutrophils (%) (Auto) 79.4H, Lymphocytes (%) (Auto) 9.5L, Monocytes (%) (Auto) 9.0H, Eosinophils (%) (Auto) 1.1, Basophils (%) (Auto) 0.3, Neutrophils # (Auto) 14.3H, Lymphocytes # (Auto) 1.7, Monocytes # (Auto) 1.6H, Eosinophils # (Auto) 0.2, Basophils # (Auto) 0.1, Nucleated Red Blood Cells % (auto) 0.0 06/24/21 09:54: Anion Gap 12, Glomerular Filtration Rate 42.1L, Osmolality 253L, Calcium Level 7.0L, Magnesium Level 1.3L, Total Bilirubin 1.1H, Aspartate Amino Transf (AST/SGOT) 67H, Alanine Aminotransferase (ALT/SGPT) 34, Alkaline Phosphatase 232H, Total Protein 5.7L, Albumin 2.0L, Albumin/Globulin Ratio 0.5L, Lipase 34L, Thyroid Stimulating Hormone (TSH) 1.900, Free Thyroxine 1.71H, Ethyl Alcohol Level < 0.003 CBC/BMP Laboratory Tests 06/24/21 08:26 06/24/21 09:54 Microbiology Microbiology 06/24/21 Gastrointestinal Tract Panel (PCR) - Final, Complete Home Medications Scheduled Atorvastatin Calcium (Atorvastatin Calcium) 80 Mg Tab, 80 MG PO DAILY Buspirone HCl (Buspirone HCl) 10 Mg Tablet, 10 MG PO BID Citalopram Hydrobromide (Citalopram HBr) 20 Mg Tablet, 20 MG PO DAILY Mirtazapine (Remeron) 15 Mg Tablet, 15 MG PO QHS Potassium Chloride (Klor-Con M10) 10 Meq Tab.er.prt, 40 MEQ PO BID Psyllium Husk (with Sugar) (Metamucil Powder) 575 Gm Powder, 1 PKT PO DAILY Scheduled PRN Polyethylene Glycol 3350 (Miralax) 119 Gm Powder, 17 GM PO DAILY PRN for CONSTIPATION DILUTE IN 8 OUNCES OF WATER OR JUICE Allergies Coded Allergies: milk (Verified Adverse Reaction, Mild, GI upset, 06/12/21) A-FIB/CHADSVASC A-FIB History Current/History of A-Fib/PAF?: No ABHINAV ROUSSEAU MD Jun 24, 2021 12:56
--- OUTSIDE RECORDS SUMMARY | 2021-06-24 13:26 | CCD ---
Author Author [facility] Organization [facility] Address Unknown Phone Unavailable Care Team Providers Care Instructor Industrial Design Name Role Phone Primo Hdz NP Unavailable [...] Unavailable Unavailable Rafat Sheth MD Unavailable Unavailable Raaft Sheth MD Unavailable Unavailable Rafat Sheth MD [...] MARSHA, Heidi SAUER MD Unavailable Unavailable MARSHA, Hedii SAUER MD Unavailable Unavailable MARSHA, Heidi SAUER [...] Unavailable MARSHA, Heidi SAUER MD Unavailable Unavailable MARSAH, Heidi SAUER MD Unavailable Unavailable Jessica Leone [...] is protected by Article 27-F of the [facility] Public Health law. If you continue you may have access to information: Regarding HIV / AIDS; Provided by facilities licensed or operated by the [facility] Office of Mental Health; or Provided by the [facility] Office for People With Developmental Disabilities. If such information is present, then the following [facility] mandated warning applies: This information has [...] law may result in a fine or intermediate sentence or both. A general authorization for the release of medical or other information is NOT sufficient authorization for further disc losure. Allergies and Adverse Reactions Type Description Substance Reaction Status Data Source(s ) Propensity to adverse reactions to substance prazosin Prazosin 2 MG Oral Capsule dizziness Active [facility] ([facility] No Known Drug Allergies No Known Drug Allergies No Known Drug Aller gies active [facility] ([facility] ) Family History Family Member Name Family Member Gender Family Member Status Date o f Status Description Data Source(s) Unknown Female Problem [facility] ([facility]) Encounters Encounter Providers Location Date Indications Data Source(s ) Outpatient Attender: Solomon Hdz NP [facility] 06/20/2021 10:30:00 AM EDT - 06/20/2021 10:30:00 AM EDT [facility] Attender: Solomon Hdz NP 06/20/2021 12:00:00 AM EDT [facility] ([facility] [place] [address] [address] 06/11/2021 12:00:00 AM EDT eCW1 ([facility]) [place] [address] [facility] [facility] [place] [address] 06/08/2021 12:00:00 AM EDT eCW1 ([facility]) [place] [address] [facility] [facility] [place] [address] 06/06/2021 12:00:00 AM EDT eCW1 ([facility]) Unknown [address] [facility] [place] [address] 05/21/2021 12:00:00 AM EDT eCW1 ([facility]) [place] [address] [facility] [place] [address] 05/14/2021 12:00:00 AM EDT eCW1 ([facility]) [place] [address] [facility] [place] [address] 2021 12:00:00 AM EDT [facility]1 ([facility]) [place] [address] [address] 05/08/2021 12:00:00 AM EDT [facility]CW1 ([facility]) [place] [address] [address] 05/04/2021 12:00:00 AM EDT eCW1 ([facility]) [place] [address] [address] 05/04/2021 12:00:00 AM EDT [facility]CW1 ([facility]) [place] [address] [address] 04/20/2021 12:00:00 AM EDT eCW1 ([facility]) [place] [address] [address] 04/13/2021 12:00:00 AM EDT eCW1 ([facility]) Extended Individual Psychotherapy - 45 min Attender: Atilio Leone [facility] 04/05/2021 10:00:00 AM EDT - 04/05/2021 10:00:00 AM EDT [facility] ([facility]) Attender: Jessica Leone 04/05/2021 12:00:00 A M EDT [facility] ([facility]) [place]patient [address] [address] 03/14/2021 12:00:00 AM EDT eCW1 ([facility]) [place] [address] [address] 03/13/2021 12:00:00 AM EDT eCW1 ([facility]) [place] [address] [address] 03/13/2021 12:00:00 AM EDT eCW1 ([facility]) [place] [address] [address] 03/08/2021 12:00:00 AM EDT [facility]CW1 [facility] Outpatient Attender: Solomon Hdz NP [facility] 03/07/2021 10:30:00 AM EDT - 03/07/2021 10:30:00 AM EDT [facility] ([facility]) Attender: Solomon Hdz NP 03/07/2021 12:00:00 AM EDT [facility] ([facility]) Outpatient Attender: Solomon Hdz NP [facility] 01/16/2021 01:30:00 AM EDT - 01/16/2021 01:30:00 AM EDT [facility] ([facility]) Attender: Solomon Hdz NP 01/16/2021 12:00:00 AM EDT [facility] ([facility]) Extended Individual Psychotherapy - 45 min Attender: Atilio Hammondcarlos [facility] 01/09/2021 09:00:00 AM EDT - 01/09/2021 09:00:00 AM EDT [facility] ([facility]) Attender: Jessica Leone 01/09/2021 12:00:00 A M EDT [facility] ([facility]) [place] [address] [address] 01/01/2021 12:00:00 AM EDT eCW1 ([facility]) Extended Individual Psychotherapy - 45 min Attender: Atilio Hammondcarlos [facility] 12/26/2020 09:00:00 AM EDT - 12/26/2020 09:00:00 AM EDT [facility] ([facility]) Attender: Jessica Leone 12/26/2020 12:00:00 A M EDT [facility] ([facility]) [place] [address] [address] 12/21/2020 12:00:00 AM EDT eCW1 ([facility]) Outpatient Attender: Solomon Hdz NP [facility] 12/19/2020 01:00:00 AM EDT - 12/19/2020 01:00:00 AM EDT [facility] ([facility]) Attender: Solomon Hdz NP 12/19/2020 12:00:00 AM EDT [facility] ([facility]) [place] [address] [address] 12/15/2020 12:00:00 AM EDT eCW1 ([facility]) Brief Individual Psychotherapy - 30 min Attender: Jessica wall [facility] 12/12/2020 12:45:00 PM EDT - 12/12/2020 12:45:00 PM EDT [facility] ([facility]) Attender: Jessica Leone 12/12/2020 12:00:00 A M EDT [facility] ([facility]) [place] [address] [address] 12/08/2020 12:00:00 AM EDT eCW1 ([facility]) Outpatient Attender: UNKNOWN CPSCAORT-LABEJN 12/06/2020 09:42:00 AM E [facility] Inpatient Attender: Rafat Sheth MDAdmitter: Rafat dewitt MD ED-MSP 12/05/2020 07:41:00 PM EDT - 12/08/2020 09:25:00 AM EDT F10.20 [facility] F10.20 Patient discharged. [place] [address] [address] 12/05/2020 12:00:00 AM EDT eCW1 ([facility]) Outpatient Attender: Solomon Hdz NP [facility] 11/21/2020 01:00:00 AM EDT - 11/21/2020 01:00:00 AM EDT [facility] ([facility]) Outpatient Attender: Solomon Hdz NP [facility] 11/21/2020 01:00:00 AM EDT - 11/21/2020 01:00:00 AM EDT [facility] ([facility]) Attender: Solomon Hdz NP 11/21/2020 12:00:00 AM EDT [facility] ([facility]) Extended Individual Psychotherapy - 45 min [facility] 09:00:00 AM EDT - 11/14/2020 09:00:00 AM EDT [facility] ([facility]) Attender: Jessica Leone 11/14/2020 12:00:00 A M EDT [facility] ([facility]) Extended Individual Psychotherapy - 45 min Attender: Atilio Leone [facility] 10/19/2020 08:45:00 AM EST - 10/19/2020 08:45:00 AM EST [facility] ([facility]) Attender: Jessica Leone 10/19/2020 12:00:00 A M EST [facility] ([facility]) Outpatient Attender: Solomon Hdz NP [facility] 10/17/2020 01:00:00 AM EST - 10/17/2020 01:00:00 AM EST [facility] ([facility]) Attender: Solomon Hdz NP 10/17/2020 12:00:00 AM EST [facility] ([facility]) [place] [address] [address] 10/11/2020 12:00:00 AM EST eCW1 ([facility]) [place]patient [address] [address] 10/02/2020 12:00:00 AM EST eCW1 ([facility]) Attender: Jessica Leone 09/27/2020 12:00:00 A M EST [facility] ([facility]) TEMPMHCTelemed 30" Psychotherapy Attender: Jessica Leone [facility] 09/26/2020 09:00:00 AM EST - 09/26/2020 09:00:00 AM EST [facility] ([facility]) Outpatient [address] [address] 09/14/2020 12:00:00 AM EST [facility]CW1 ([facility]) [place] [address] [address] 09/11/2020 12:00:00 AM EST eCW1 ([facility]) Outpatient Attender: Solomon Hdz NP [facility] 09/05/2020 12:30:00 PM EST - 09/05/2020 12:30:00 PM EST [facility] ([facility]) Attender: Solomon Hdz NP 09/05/2020 12:00:00 AM EST [facility] ([facility]) [place] [address] [address] 08/31/2020 12:00:00 AM EST eCW1 ([facility]) [place] [address] [address] 08/30/2020 12:00:00 AM EST eCW1 ([facility]) Outpatient [address] [address] 08/30/2020 12:00:00 AM EST eCW1 ([facility]) Extended Individual Psychotherapy - 45 min Attender: Atilio Leone [facility] 08/22/2020 09:00:00 AM EST - 08/22/2020 09:00:00 AM EST [facility] ([facility]) Attender: Jessica Leone 08/22/2020 12:00:00 A M EST [facility] ([facility]) [place] [address] [address] 08/21/2020 12:00:00 AM EST eCW1 ([facility]) Outpatient Attender: Solomon Hdz NP [facility] 07/28/2020 11:30:00 AM EST - 07/28/2020 11:30:00 AM EST [facility] ([facility]) Attender: Solomon Hdz NP 07/28/2020 12:00:00 AM EST [facility] ([facility]) Extended Individual Psychotherapy - 45 min Attender: Atilio Hammondchandra [facility] 07/25/2020 09:00:00 AM EST - 07/25/2020 09:00:00 AM EST [facility] ([facility]) Attender: Jessica Leone 07/25/2020 12:00:00 A M EST [facility] ([facility]) [place]patient [address] [address] 07/11/2020 12:00:00 AM EST eCW1 ([facility]) Extended Individual Psychotherapy - 45 min Attender: Atilio Hammondsandracarlos [facility] 07/04/2020 09:00:00 AM EST - 07/04/2020 09:00:00 AM EST [facility] ([facility]) Attender: Jessica Leone 07/04/2020 12:00:00 A M EST [facility] ([facility]) [place] [address] [address] 06/21/2020 12:00:00 AM EDT eCW1 ([facility]) Extended Individual Psychotherapy - 45 min Attender: Atilio Hammondsandracarlos [facility] 06/20/2020 09:00:00 AM EDT - 06/20/2020 09:00:00 AM EDT [facility] ([facility]) Attender: Jessica Leone 06/20/2020 12:00:00 A M EDT [facility] ([facility]) Extended Individual Psychotherapy - 45 min Attender: Atilio Hammondsandracarlos [facility] 06/06/2020 12:00:00 PM EDT - 06/06/2020 12:00:00 PM EDT [facility] ([facility]) Attender: Jessica eLone 06/06/2020 12:00:00 A M EDT [facility] ([facility]) [place] [address] [address] 05/24/2020 12:00:00 AM EDT eCW1 ([facility]) 05/15/2020 01:00:00 AM EDT - 020 10:42:46 AM EDT NETSMART ([facility]) [id number]"Psychotherapy [facility]: [facility] 04/26/2020 09:45:00 AM EDT - 04/26/2020 09:45:00 AM EDT [facility] ([facility]) Inpatient Attender: CASPER YAN SI [facility] MDAttender: Shahzad TAVARES MDAttender: ER PHYSICIAN 04/26/2020 12:50:[address] [facility] ( in Healthcare facility) Attender: MONALISA BERG MDAttender: Shahzad TAVARES MDAdmitter: Shahzad TAVARES MDConsultant: Rajesh Goddard 04/26/2020 12:50:00 AM EDT [facility] Attender: Jessica Leone 04/26/2020 12:00:00 A M EDT [facility] ([facility]) Inpatient Attender: CASPER YAN SI [facility] MDAttender: CHELO OCONNOR PAAttender: ER PHYSICIANAdmitter: CHELO KEMP 0 04/25/2020 10:57:28 PM EDT Lab [facility] Inpatient Attender: CASPER YAN SI [facility] MDAttender: Shahzad TAVARES MDAttender: ER PHYSICIANAdmitter: Shahzad TAVARES MD 0 04/25/2020 10:15:00 PM EDT - 05/12/2020 06:21:00 PM ED[address] [facility] GI BLEEDING Patient discharged. Outpatient 04/25/2020 06:20:00 PM EDT GI bleed [facility] GI bleed Inpatient Attender: CRISTIANE LARSON MDAdmitter: CRISTIANE LARSON MD ED-MSP 09/13/2019 11:30:00 AM EST - 09/17/2019 09:15:[address] [facility] F1020 Patient discharged. Functional Status Immunizations Vaccine Date Status Description Data Source(s) 03/14/2021 12:33:00 PM EDT completed e CW1 ([facility]) 03/14/2021 12:33:00 PM EDT completed e CW1 ([facility]) 03/14/2021 12:33:00 PM EDT completed e CW1 ([facility]) 03/14/2021 12:33:00 PM EDT completed e CW1 ([facility]) 03/14/2021 12:33:00 PM EDT completed e CW1 ([facility]) 03/14/2021 12:33:00 PM EDT completed e CW1 ([facility]) 03/14/2021 12:33:00 PM EDT completed e CW1 ([facility]) 03/14/2021 12:33:00 PM EDT completed e CW1 ([facility]) 03/14/2021 12:33:00 PM EDT completed e CW1 ([facility]) 03/14/2021 12:33:00 PM EDT completed e CW1 ([facility]) 03/14/2021 12:33:00 PM EDT completed e CW1 ([facility]) 03/14/2021 12:33:00 PM EDT completed e CW1 ([facility]) COVID-19 VACCINE Moderna 11/24/2020 12:00:00 AM EDT completed NYSIIS Vaccine Series Complete: YESThis Data wa s Submitted to [facility] Via ADOP. COVID-19 VACCINE Moderna 10/27/2020 12:00:00 AM EST completed [facility]SIIS Vaccine Series Complete: NOThis Data was Submitted to [facility] Via ADOP. Medications Medication Brand Name Start Date Product [...] EDT active Mupiroci n 2 % eCW1 ([facility]) Mupirocin 0.02 MG/MG Topical Ointment Mupirocin 2 % Mupiroci n 2 % 05/04/2021 12:00:00 AM EDT suspended Mupir ocin 2 % eCW1 ([facility]) 2 % 05/04/2021 12:00:00 AM EDT ointment [...] EDT suspended Mupir ocin 2 % eCW1 ([facility]) Mupirocin 0.02 MG/MG Topical Ointment Mupirocin 2 % Mupiroci n 2 % 05/04/2021 12:00:00 AM EDT active Mupiroci n 2 % eCW1 ([facility]) Mupirocin 0.02 MG/MG Topical Ointment Mupirocin 2 % Mupiroci n 2 % 05/04/2021 12:00:00 AM EDT suspended Mupir ocin 2 % eCW1 ([facility]) Mupirocin 0.02 MG/MG Topical Ointment Mupirocin 2 % Mupiroci n 2 % 05/04/2021 12:00:00 AM EDT active Mupiroci n 2 % eCW1 ([facility]) Mupirocin 0.02 MG/MG Topical Ointment Mupirocin 2 % Mupiroci n 2 % 05/04/2021 12:00:00 AM EDT active Mupiroci n 2 % eCW1 ([facility]) Mupirocin 0.02 MG/MG Topical Ointment Mupirocin 2 % Mupiroci n 2 % 05/04/2021 12:00:00 AM EDT active Mupiroci n 2 % eCW1 ([facility]) Mupirocin 0.02 MG/MG Topical Ointment Mupirocin 2 % Mupiroci n 2 % 05/04/2021 12:00:00 AM EDT active Mupiroci n 2 % eCW1 ([facility]) buspirone hydrochloride 10 MG Oral Tablet BUSPIRONE [...] active [facility] Marco jennifer 2 MG eCW1 ([facility]) Nicotine 2 MG Chewing Gum [facility] Nicotine 2 MG [facility] Nicotine 2 M G 04/13/2021 12:00:00 AM EDT suspended [facility] N icotine 2 MG eCW1 ([facility]) Nicotine 2 MG Chewing Gum [facility] Nicotine 2 MG [facility] Nicotine 2 M G 04/13/2021 12:00:00 AM EDT active [facility] Marco jennifer 2 MG eCW1 ([facility]) 2 mg 04/13/2021 12:00:00 AM EDT gum [...] suspended [facility] N icotine 2 MG eCW1 ([facility]) Nicotine 2 MG Chewing Gum [facility] Nicotine 2 MG [facility] Nicotine 2 M G 04/13/2021 12:00:00 AM EDT active [facility] Marco jennifer 2 MG eCW1 ([facility]) Nicotine 2 MG Chewing Gum [facility] Nicotine 2 MG [facility] Nicotine 2 M G 04/13/2021 12:00:00 AM EDT active [facility] Marco jennifer 2 MG eCW1 ([facility]) Nicotine 2 MG Chewing Gum [facility] Nicotine 2 MG [facility] Nicotine 2 M G 04/13/2021 12:00:00 AM EDT suspended [facility] N icotine 2 MG eCW1 ([facility]) ferrous gluconate 324 MG Oral Tablet Ferrous Gluconate 324 (38 Fe) MG Ferrous Gluconate 324 (38 Fe) MG 04/13/2021 12:00:00 AM EDT active Ferrous Gluconate 324 (38 Fe) MG eCW1 ([facility]) Nicotine 2 MG Chewing Gum [facility] Nicotine 2 MG [facility] Nicotine 2 M G 04/13/2021 12:00:00 AM EDT active [facility] Marco jennifer 2 MG eCW1 ([facility]) 324 mg (38 mg iron) 04/13/2021 12:00:00 [...] suspended [facility] N icotine 2 MG eCW1 ([facility]) Nicotine 2 MG Chewing Gum [facility] Nicotine 2 MG [facility] Nicotine 2 M G 04/13/2021 12:00:00 AM EDT suspended [facility] N icotine 2 MG eCW1 ([facility]) Nicotine 2 MG Chewing Gum [facility] Nicotine 2 MG [facility] Nicotine 2 M G 04/13/2021 12:00:00 AM EDT active [facility] Marco jennifer 2 MG eCW1 ([facility]) ferrous gluconate 324 MG Oral Tablet Ferrous Gluconate 324 (38 Fe) MG Ferrous Gluconate 324 (38 Fe) MG 04/13/2021 12:00:00 AM EDT active Ferrous Gluconate 324 (38 Fe) MG eCW1 ([facility]) 80 mg 03/21/2021 12:00:00 AM EDT tablet [...] 1 mg by mouth completed <td ID="Medicat ionRxNorm_4">335746</td><td ID="MedicationMedication_4">prazosin</td><td ID="MedicationRoute_4">by mouth</td><td ID="MedicationRouteConcept_4">X43859</td><td ID="MedicationStartDate_4">01/16/2021</td><td ID="MedicationStopDate_4">04/16/2021</td><td ID="MedicationDosageFrequency_4">at bedtime</td><td ID="MedicationDuration_4">30</td><td ID="MedicationFormulaStrength_4">1 mg</td><td ID="MedicationDosageForm_4">capsule</td><td ID="MedicationDosageFormCode_4"></td><td ID="MedicationDosageDescription_4"></td><td ID="MedicationMedicationId_4">[id number]</td><td ID="MedicationAccount_4">[id number]</td><td ID="MedicationNpid_4">[id number]</td><td ID="MedicationAuthorFirstName_4">Solomon</td><td ID="MedicationAuthorLastName_4">Hdz</td><td ID="MedicationTaxonomyCode_4">[id number]</td><td ID="MedicationTaxonomyDesc_4">Nurse Practitioner</td><td ID="MedicationPhoneNumber_4">[phone]</td> [facility] 15 mg 01/08/2021 12:00:00 AM [...] ID="MedicationDosageFrequency_2"></td><td ID="MedicationDuration_2">30</td><td ID="MedicationFormulaStrength_2">20 mg</td><td ID="MedicationDosageForm_2">tablet</td><td ID="MedicationDosageFormCode_2"></td><td ID="MedicationDosageDescription_2"></td><td ID="MedicationMedicationId_2">[id number]</td><td ID="MedicationAccount_2">[id number]</td><td ID="MedicationNpid_2">[id number]</td><td ID="MedicationAuthorFirstName_2">Solomon</td><td ID="MedicationAuthorLastName_2">Hdz</td><td ID="MedicationTaxonomyCode_2">[id number]</td><td ID="MedicationTaxonomyDesc_2">Nurse Practitioner</td><td ID="MedicationPhoneNumber_2">[phone]</td> [facility] ([facility]) Citalopram 20 MG Oral Tablet citalopram 10/03/2020 12:00:00 AM EST 20 mg by mouth completed <td ID="Medica tionRxNorm_2">588648</td><td ID="MedicationMedication_2">citalopram</td><td ID="MedicationRoute_2">by mouth</td><td ID="MedicationRouteConcept_2">L28743</td><td ID="MedicationStartDate_2">10/03/2020</td><td ID="MedicationStopDate_2">07/17/2021</td><td ID="MedicationDosageFrequency_2">once a day</td><td ID="MedicationDuration_2">30</td><td ID="MedicationFormulaStrength_2">20 mg</td><td ID="MedicationDosageForm_2">tablet</td><td ID="MedicationDosageFormCode_2"></td><td ID="MedicationDosageDescription_2"></td><td ID="MedicationMedicationId_2">[id number]</td><td ID="MedicationAccount_2">[id number]</td><td ID="MedicationNpid_2">[id number]</td><td ID="MedicationAuthorFirstName_2">Solomon</td><td ID="MedicationAuthorLastName_2">Hdz</td><td ID="MedicationTaxonomyCode_2">[id number]</td><td ID="MedicationTaxonomyDesc_2">Nurse Practitioner</td><td ID="MedicationPhoneNumber_2">[phone]</td> [facility] ([facility]) buspirone hydrochloride 10 MG Oral Tablet buspirone 2020 12:00:00 AM EST 10 mg completed <td ID="Medica tionRxNorm_3">298027</td><td ID="MedicationMedication_3">buspirone</td><td ID="MedicationRoute_3"></td><td ID="MedicationRouteConcept_3"></td><td ID="MedicationStartDate_3">10/03/2020</td><td ID="MedicationStopDate_3">07/17/2021</td><td ID="MedicationDosageFrequency_3"></td><td ID="MedicationDuration_3">30</td><td ID="MedicationFormulaStrength_3">10 mg</td><td ID="MedicationDosageForm_3">tablet</td><td ID="MedicationDosageFormCode_3"></td><td ID="MedicationDosageDescription_3"></td><td ID="MedicationMedicationId_3">[id number]</td><td ID="MedicationAccount_3">[id number]</td><td ID="MedicationNpid_3">[id number]</td><td ID="MedicationAuthorFirstName_3">Solomon</td><td ID="MedicationAuthorLastName_3">Dhz</td><td ID="MedicationTaxonomyCode_3">[id number]</td><td ID="MedicationTaxonomyDesc_3">Nurse Practitioner</td><td ID="MedicationPhoneNumber_3">[phone]</td> [facility] ([facility]) Mirtazapine 15 MG Oral Tablet mirtazapine 10/03/2020 12:00:00 AM EST 15 mg completed <td ID="Medicat ionRxNorm_1">[id number]</td><td ID="MedicationMedication_1">mirtazapine</td><td ID="MedicationRoute_1"></td><td ID="MedicationRouteConcept_1"></td><td ID="MedicationStartDate_1">10/03/2020</td><td ID="MedicationStopDate_1">07/17/2021</td><td ID="MedicationDosageFrequency_1"></td><td ID="MedicationDuration_1">30</td><td ID="MedicationFormulaStrength_1">15 mg</td><td ID="MedicationDosageForm_1">tablet</td><td ID="MedicationDosageFormCode_1"></td><td ID="MedicationDosageDescription_1"></td><td ID="MedicationMedicationId_1">[id number]</td><td ID="MedicationAccount_1">[id number]</td><td ID="MedicationNpid_1">[id number]</td><td ID="MedicationAuthorFirstName_1">Solomon</td><td ID="MedicationAuthorLastName_1">Hdz</td><td ID="MedicationTaxonomyCode_1">[id number]</td><td ID="MedicationTaxonomyDesc_1">Nurse Practitioner</td><td ID="MedicationPhoneNumber_1">[phone]</td> [facility] ([facility]) 80 mg 09/06/2020 12:00:00 AM [...] 12:00:00 AM EST active Prolia 60mg/ml eCW1 ([facility]) Prolia 60mg/ml K 09/01/2020 12:00:00 AM EST active Prolia 60mg/ml eCW1 ([facility]) Prolia 60mg/ml UNK 09/01/2020 12:00:00 AM EST active Prolia 60mg/ml eCW1 ([facility]) Prolia 60mg/ml K 09/01/2020 12:00:00 AM EST active Prolia 60mg/ml eCW1 ([facility]) Prolia 60mg/ml K 09/01/2020 12:00:00 AM EST active Prolia 60mg/ml eCW1 ([facility]) Prolia 60mg/ml UNK 09/01/2020 12:00:00 AM EST active Prolia 60mg/ml eCW1 ([facility]) Prolia 60mg/ml UNK 09/01/2020 12:00:00 AM EST active Prolia 60mg/ml eCW1 ([facility]) Prolia 60mg/ml UNK 09/01/2020 12:00:00 AM EST active Prolia 60mg/ml eCW1 ([facility]) Prolia 60mg/ml UNK 09/01/2020 12:00:00 AM EST active Prolia 60mg/ml eCW1 ([facility]) Prolia 60mg/ml UNK 09/01/2020 12:00:00 AM EST active Prolia 60mg/ml eCW1 ([facility]) Prolia 60mg/ml UNK 09/01/2020 12:00:00 AM EST active Prolia 60mg/ml eCW1 ([facility]) Prolia 60mg/ml UNK 09/01/2020 12:00:00 AM EST active Prolia 60mg/ml eCW1 ([facility]) Prolia 60mg/ml UNK 09/01/2020 12:00:00 AM EST active Prolia 60mg/ml eCW1 ([facility]) Prolia 60mg/ml UNK 09/01/2020 12:00:00 AM EST active Prolia 60mg/ml eCW1 ([facility]) Prolia 60mg/ml UNK 09/01/2020 12:00:00 AM EST active Prolia 60mg/ml eCW1 ([facility]) Prolia 60mg/ml UNK 09/01/2020 12:00:00 AM EST active Prolia 60mg/ml eCW1 ([facility]) Prolia 60mg/ml K 09/01/2020 12:00:00 AM EST active Prolia 60mg/ml eCW1 ([facility]) Prolia 60mg/ml UNK 09/01/2020 12:00:00 AM EST active Prolia 60mg/ml eCW1 ([facility]) Prolia 60mg/ml UNK 09/01/2020 12:00:00 AM EST active Prolia 60mg/ml eCW1 ([facility]) 2.5 % 09/01/2020 12:00:00 AM EST cream with perineal carmen licator 28 APPLY 1 APPLICATION EXTERNALLY TO AFFECTED AREA(S) TWICE A DAY NEEDED FOR 7 DAYS APPLY 1 APPLICATION EXTERNALLY TO AFFECTED AREA(S) TWICE A DAY NEEDED FOR 7 DAYS SOLD: 09/06/2020 [facility] Prolia 60mg/ml K 09/01/2020 12:00:00 AM EST active Prolia 60mg/ml eCW1 ([facility]) Prolia 60mg/ml UNK 09/01/2020 12:00:00 AM EST active Prolia 60mg/ml eCW1 ([facility]) Prolia 60mg/ml UNK 09/01/2020 12:00:00 AM EST active Prolia 60mg/ml eCW1 ([facility]) Prolia 60mg/ml UNK 09/01/2020 12:00:00 AM EST active Prolia 60mg/ml eCW1 ([facility]) Prolia 60mg/ml UNK 09/01/2020 12:00:00 AM EST active Prolia 60mg/ml eCW1 ([facility]) Prolia 60mg/ml UNK 09/01/2020 12:00:00 AM EST active Prolia 60mg/ml eCW1 ([facility]) ferrous gluconate 324 MG Oral Tablet Ferrous Gluconate 324 (38 Fe) MG Ferrous Gluconate 324 (38 Fe) MG 08/31/2020 12:00:00 AM EST active Ferrous Gluconate 324 (38 Fe) MG eCW1 ([facility]) ferrous gluconate 324 MG Oral Tablet Ferrous Gluconate 324 (38 Fe) MG Ferrous Gluconate 324 (38 Fe) MG 08/31/2020 12:00:00 AM EST active Ferrous Gluconate 324 (38 Fe) MG eCW1 ([facility]) ferrous gluconate 324 MG Oral Tablet Ferrous Gluconate 324 (38 Fe) MG Ferrous Gluconate 324 (38 Fe) MG 08/31/2020 12:00:00 AM EST active Ferrous Gluconate 324 (38 Fe) MG eCW1 ([facility]) ferrous gluconate 324 MG Oral Tablet Ferrous Gluconate 324 (38 Fe) MG Ferrous Gluconate 324 (38 Fe) MG 08/31/2020 12:00:00 AM EST active Ferrous Gluconate 324 (38 Fe) MG eCW1 ([facility]) ferrous gluconate 324 MG Oral Tablet Ferrous Gluconate 324 (38 Fe) MG Ferrous Gluconate 324 (38 Fe) MG 08/31/2020 12:00:00 AM EST active Ferrous Gluconate 324 (38 Fe) MG eCW1 ([facility]) ferrous gluconate 324 MG Oral Tablet Ferrous Gluconate 324 (38 Fe) MG Ferrous Gluconate 324 (38 Fe) MG 08/31/2020 12:00:00 AM EST active Ferrous Gluconate 324 (38 Fe) MG eCW1 ([facility]) ferrous gluconate 324 MG Oral Tablet Ferrous Gluconate 324 (38 Fe) MG Ferrous Gluconate 324 (38 Fe) MG 08/31/2020 12:00:00 AM EST active Ferrous Gluconate 324 (38 Fe) MG eCW1 ([facility]) ferrous gluconate 324 MG Oral Tablet Ferrous Gluconate 324 (38 Fe) MG Ferrous Gluconate 324 (38 Fe) MG 08/31/2020 12:00:00 AM EST active Ferrous Gluconate 324 (38 Fe) MG eCW1 ([facility]) ferrous gluconate 324 MG Oral Tablet Ferrous Gluconate 324 (38 Fe) MG Ferrous Gluconate 324 (38 Fe) MG 08/31/2020 12:00:00 AM EST active Ferrous Gluconate 324 (38 Fe) MG eCW1 ([facility]) ferrous gluconate 324 MG Oral Tablet Ferrous Gluconate 324 (38 Fe) MG Ferrous Gluconate 324 (38 Fe) MG 08/31/2020 12:00:00 AM EST active Ferrous Gluconate 324 (38 Fe) MG W1 ([facility]) ferrous gluconate 324 MG Oral Tablet Ferrous Gluconate 324 (38 Fe) MG Ferrous Gluconate 324 (38 Fe) MG 08/31/2020 12:00:00 AM EST active Ferrous Gluconate 324 (38 Fe) MG eCW1 ([facility]) ferrous gluconate 324 MG Oral Tablet Ferrous Gluconate 324 (38 Fe) MG Ferrous Gluconate 324 (38 Fe) MG 08/31/2020 12:00:00 AM EST active Ferrous Gluconate 324 (38 Fe) MG eCW1 ([facility]) ferrous gluconate 324 MG Oral Tablet Ferrous Gluconate 324 (38 Fe) MG Ferrous Gluconate 324 (38 Fe) MG 08/31/2020 12:00:00 AM EST active Ferrous Gluconate 324 (38 Fe) MG eCW1 ([facility]) ferrous gluconate 324 MG Oral Tablet Ferrous Gluconate 324 (38 Fe) MG Ferrous Gluconate 324 (38 Fe) MG 08/31/2020 12:00:00 AM EST active Ferrous Gluconate 324 (38 Fe) MG eCW1 ([facility]) ferrous gluconate 324 MG Oral Tablet Ferrous Gluconate 324 (38 Fe) MG Ferrous Gluconate 324 (38 Fe) MG 08/31/2020 12:00:00 AM EST active Ferrous Gluconate 324 (38 Fe) MG eCW1 ([facility]) ferrous gluconate 324 MG Oral Tablet Ferrous Gluconate 324 (38 Fe) MG Ferrous Gluconate 324 (38 Fe) MG 08/31/2020 12:00:00 AM EST active Ferrous Gluconate 324 (38 Fe) MG eCW1 ([facility]) ferrous gluconate 324 MG Oral Tablet Ferrous Gluconate 324 (38 Fe) MG Ferrous Gluconate 324 (38 Fe) MG 08/31/2020 12:00:00 AM EST active Ferrous Gluconate 324 (38 Fe) MG eCW1 ([facility]) ferrous gluconate 324 MG Oral Tablet Ferrous Gluconate 324 (38 Fe) MG Ferrous Gluconate 324 (38 Fe) MG 08/31/2020 12:00:00 AM EST active Ferrous Gluconate 324 (38 Fe) MG eCW1 ([facility]) ferrous gluconate 324 MG Oral Tablet Ferrous Gluconate 324 (38 Fe) MG Ferrous Gluconate 324 (38 Fe) MG 08/31/2020 12:00:00 AM EST active Ferrous Gluconate 324 (38 Fe) MG eCW1 ([facility]) ferrous gluconate 324 MG Oral Tablet Ferrous Gluconate 324 (38 Fe) MG Ferrous Gluconate 324 (38 Fe) MG 08/31/2020 12:00:00 AM EST active Ferrous Gluconate 324 (38 Fe) MG eCW1 ([facility]) ferrous gluconate 324 MG Oral Tablet Ferrous Gluconate 324 (38 Fe) MG Ferrous Gluconate 324 (38 Fe) MG 08/31/2020 12:00:00 AM EST active Ferrous Gluconate 324 (38 Fe) MG eCW1 ([facility]) ferrous gluconate 324 MG Oral Tablet Ferrous Gluconate 324 (38 Fe) MG Ferrous Gluconate 324 (38 Fe) MG 08/31/2020 12:00:00 AM EST active Ferrous Gluconate 324 (38 Fe) MG eCW1 ([facility]) 324 mg (38 mg iron) 08/31/2020 12:00:00 [...] Ferrous Gluconate 324 (38 Fe) MG eCW1 ([facility]) ferrous gluconate 324 MG Oral Tablet Ferrous Gluconate 324 (38 Fe) MG Ferrous Gluconate 324 (38 Fe) MG 08/31/2020 12:00:00 AM EST active Ferrous Gluconate 324 (38 Fe) MG eCW1 ([facility]) ferrous gluconate 324 MG Oral Tablet Ferrous Gluconate 324 (38 Fe) MG Ferrous Gluconate 324 (38 Fe) MG 08/31/2020 12:00:00 AM EST active Ferrous Gluconate 324 (38 Fe) MG eCW1 ([facility]) ferrous gluconate 324 MG Oral Tablet Ferrous Gluconate 324 (38 Fe) MG Ferrous Gluconate 324 (38 Fe) MG 08/31/2020 12:00:00 AM EST active Ferrous Gluconate 324 (38 Fe) MG W1 ([facility]) ferrous gluconate 324 MG Oral Tablet Ferrous Gluconate 324 (38 Fe) MG Ferrous Gluconate 324 (38 Fe) MG 08/31/2020 12:00:00 AM EST active Ferrous Gluconate 324 (38 Fe) MG W1 ([facility]) buspirone hydrochloride 10 MG Oral Tablet BUSPIRONE [...] 7.5 mg by mouth completed <td ID="Medica tionRxNorm_2">358592</td><td ID="MedicationMedication_2">mirtazapine</td><td ID="MedicationRoute_2">by mouth</td><td ID="MedicationRouteConcept_2">Q11026</td><td ID="MedicationStartDate_2">06/30/2020</td><td ID="MedicationStopDate_2">09/28/2020</td><td ID="MedicationDosageFrequency_2">at bedtime</td><td ID="MedicationDuration_2">30</td><td ID="MedicationFormulaStrength_2">7.5 mg</td><td ID="MedicationDosageForm_2">tablet</td><td ID="MedicationDosageFormCode_2"></td><td ID="MedicationDosageDescription_2"></td><td ID="MedicationMedicationId_2">[id number]</td><td ID="MedicationAccount_2">[id number]</td><td ID="MedicationNpid_2">[id number]</td><td ID="MedicationAuthorFirstName_2">Solomon</td><td ID="MedicationAuthorLastName_2">Hdz</td><td ID="MedicationTaxonomyCode_2">[id number]</td><td ID="MedicationTaxonomyDesc_2">Nurse Practitioner</td><td ID="MedicationPhoneNumber_2">[phone]</td> [facility] ([facility]) Citalopram 20 MG Oral Tablet [...] BY MOUTH TWICE A DAY SOLD: 08/03/2020 [facility] 7.5 mg 06/30/2020 12:00:00 AM [...] 10 mg by mouth completed <td ID="Medic ationRxNorm_3">[id number]</td><td ID="MedicationMedication_3">buspirone</td><td ID="MedicationRoute_3">by mouth</td><td ID="MedicationRouteConcept_3">X07177</td><td ID="MedicationStartDate_3">06/30/2020</td><td ID="MedicationStopDate_3">09/28/2020</td><td ID="MedicationDosageFrequency_3">twice a day</td><td ID="MedicationDuration_3">30</td><td ID="MedicationFormulaStrength_3">10 mg</td><td ID="MedicationDosageForm_3">tablet</td><td ID="MedicationDosageFormCode_3"></td><td ID="MedicationDosageDescription_3"></td><td ID="MedicationMedicationId_3">[id number]</td><td ID="MedicationAccount_3">[id number]</td><td ID="MedicationNpid_3">[id number]</td><td ID="MedicationAuthorFirstName_3">Solomon</td><td ID="MedicationAuthorLastName_3">Hdz</td><td ID="MedicationTaxonomyCode_3">[id number]</td><td ID="MedicationTaxonomyDesc_3">Nurse Practitioner</td><td ID="MedicationPhoneNumber_3">[phone]</td> [facility] ([facility]) Citalopram 20 MG Oral Tablet citalopram 06/30/2020 12:00:00 AM EST 20 mg by mouth completed <td ID="Medica tionRxNorm_1">[id number]</td><td ID="MedicationMedication_1">citalopram</td><td ID="MedicationRoute_1">by mouth</td><td ID="MedicationRouteConcept_1">M57176</td><td ID="MedicationStartDate_1">06/30/2020</td><td ID="MedicationStopDate_1">09/28/2020</td><td ID="MedicationDosageFrequency_1">once a day</td><td ID="MedicationDuration_1">30</td><td ID="MedicationFormulaStrength_1">20 mg</td><td ID="MedicationDosageForm_1">tablet</td><td ID="MedicationDosageFormCode_1"></td><td ID="MedicationDosageDescription_1"></td><td ID="MedicationMedicationId_1">[id number]</td><td ID="MedicationAccount_1">[id number]</td><td ID="MedicationNpid_1">[id number]</td><td ID="MedicationAuthorFirstName_1">Solomon</td><td ID="MedicationAuthorLastName_1">Hdz</td><td ID="MedicationTaxonomyCode_1">[id number]</td><td ID="MedicationTaxonomyDesc_1">Nurse Practitioner</td><td ID="MedicationPhoneNumber_1">[phone]</td> [facility] ([facility]) Hydrocortisone 25 MG/ML Topical Cream Hydrocortisone ( Perianal) 2.5 % Hydrocortisone (Perianal) 2.5 % 06/21/2020 12:00:00 AM EDT 1.0 { application} active Hydrocortisone (Mely anal) 2.5 % eCW1 ([facility]) Hydrocortisone 25 MG/ML Topical Cream Hydrocortisone ( Perianal) 2.5 % Hydrocortisone (Perianal) 2.5 % 06/21/2020 12:00:00 AM EDT 1.0 { application} active Hydrocortisone (Mely anal) 2.5 % eCW1 ([facility]) Hydrocortisone 25 MG/ML Topical Cream Hydrocortisone ( Perianal) 2.5 % Hydrocortisone (Perianal) 2.5 % 06/21/2020 12:00:00 AM EDT 1.0 { application} active Hydrocortisone (Mely anal) 2.5 % eCW1 ([facility]) Hydrocortisone 25 MG/ML Topical Cream Hydrocortisone ( Perianal) 2.5 % Hydrocortisone (Perianal) 2.5 % 06/21/2020 12:00:00 AM EDT 1.0 { application} active Hydrocortisone (Mely anal) 2.5 % eCW1 ([facility]) Hydrocortisone 25 MG/ML Topical Cream Hydrocortisone ( Perianal) 2.5 % Hydrocortisone (Perianal) 2.5 % 06/21/2020 12:00:00 AM EDT 1.0 { application} active Hydrocortisone (Mely anal) 2.5 % eCW1 ([facility]) Hydrocortisone 25 MG/ML Topical Cream Hydrocortisone ( Perianal) 2.5 % Hydrocortisone (Perianal) 2.5 % 06/21/2020 12:00:00 AM EDT 1.0 { application} active Hydrocortisone (Mely anal) 2.5 % eCW1 ([facility]) Hydrocortisone 25 MG/ML Topical Cream Hydrocortisone ( Perianal) 2.5 % Hydrocortisone (Perianal) 2.5 % 06/21/2020 12:00:00 AM EDT 1.0 { application} active Hydrocortisone (Mely anal) 2.5 % eCW1 ([facility]) Hydrocortisone 25 MG/ML Topical Cream Hydrocortisone ( Perianal) 2.5 % Hydrocortisone (Perianal) 2.5 % 06/21/2020 12:00:00 AM EDT 1.0 { application} active Hydrocortisone (Mely anal) 2.5 % eCW1 ([facility]) 2.5 % 06/21/2020 12:00:00 AM EDT cream [...] active Hydrocortisone (Mely anal) 2.5 % eCW1 ([facility]) Hydrocortisone 25 MG/ML Topical Cream Hydrocortisone ( Perianal) 2.5 % Hydrocortisone (Perianal) 2.5 % 06/21/2020 12:00:00 AM EDT 1.0 { application} active Hydrocortisone (Mely anal) 2.5 % eCW1 ([facility]) Hydrocortisone 25 MG/ML Topical Cream Hydrocortisone ( Perianal) 2.5 % Hydrocortisone (Perianal) 2.5 % 06/21/2020 12:00:00 AM EDT 1.0 { application} active Hydrocortisone (Mely anal) 2.5 % eCW1 ([facility]) Hydrocortisone 25 MG/ML Topical Cream Hydrocortisone ( Perianal) 2.5 % Hydrocortisone (Perianal) 2.5 % 06/21/2020 12:00:00 AM EDT 1.0 { application} active Hydrocortisone (Mely anal) 2.5 % eCW1 ([facility]) Hydrocortisone 25 MG/ML Topical Cream Hydrocortisone ( Perianal) 2.5 % Hydrocortisone (Perianal) 2.5 % 06/21/2020 12:00:00 AM EDT 1.0 { application} active Hydrocortisone (Mely anal) 2.5 % eCW1 ([facility]) Hydrocortisone 25 MG/ML Topical Cream Hydrocortisone ( Perianal) 2.5 % Hydrocortisone (Perianal) 2.5 % 06/21/2020 12:00:00 AM EDT 1.0 { application} active Hydrocortisone (Mely anal) 2.5 % eCW1 ([facility]) Hydrocortisone 25 MG/ML Topical Cream Hydrocortisone ( Perianal) 2.5 % Hydrocortisone (Perianal) 2.5 % 06/21/2020 12:00:00 AM EDT 1.0 { application} active Hydrocortisone (Mely anal) 2.5 % eCW1 ([facility]) Hydrocortisone 25 MG/ML Topical Cream Hydrocortisone ( Perianal) 2.5 % Hydrocortisone (Perianal) 2.5 % 06/21/2020 12:00:00 AM EDT 1.0 { application} active Hydrocortisone (Mely anal) 2.5 % eCW1 ([facility]) Hydrocortisone 25 MG/ML Topical Cream Hydrocortisone ( Perianal) 2.5 % Hydrocortisone (Perianal) 2.5 % 06/21/2020 12:00:00 AM EDT 1.0 { application} active Hydrocortisone (Mely anal) 2.5 % eCW1 ([facility]) Hydrocortisone 25 MG/ML Topical Cream Hydrocortisone ( Perianal) 2.5 % Hydrocortisone (Perianal) 2.5 % 06/21/2020 12:00:00 AM EDT 1.0 { application} active Hydrocortisone (Mely anal) 2.5 % eCW1 ([facility]) Hydrocortisone 25 MG/ML Topical Cream Hydrocortisone ( Perianal) 2.5 % Hydrocortisone (Perianal) 2.5 % 06/21/2020 12:00:00 AM EDT 1.0 { application} active Hydrocortisone (Mely anal) 2.5 % eCW1 ([facility]) Hydrocortisone 25 MG/ML Topical Cream Hydrocortisone ( Perianal) 2.5 % Hydrocortisone (Perianal) 2.5 % 06/21/2020 12:00:00 AM EDT 1.0 { application} active Hydrocortisone (Mely anal) 2.5 % eCW1 ([facility]) Hydrocortisone 25 MG/ML Topical Cream Hydrocortisone ( Perianal) 2.5 % Hydrocortisone (Perianal) 2.5 % 06/21/2020 12:00:00 AM EDT 1.0 { application} active Hydrocortisone (Mely anal) 2.5 % eCW1 ([facility]) Hydrocortisone 25 MG/ML Topical Cream Hydrocortisone ( Perianal) 2.5 % Hydrocortisone (Perianal) 2.5 % 06/21/2020 12:00:00 AM EDT 1.0 { application} active Hydrocortisone (Mely anal) 2.5 % eCW1 ([facility]) Hydrocortisone (Perianal) 1 % Hydrocortisone (Perianal) 04/26 01:00:00 AM EDT completed NETSMAR T ([facility]) Vagisil Maximum Strength 20-3 % Vagisil Maximum Strength 01:00:00 AM EDT completed [facility]SMAR T ([facility]) Cranberry Ultra Strength 250-60 MG Cranberry Ultra Strength 05/18/2020 01:00:00 AM EDT completed NETSMAR T ([facility]) Calcium 600+D3 600-800 MG-UNIT Calcium 600+D3 05/15/2020 01:00:00 AM E DT completed NETSMART ([facility]) Vitamin D3 1000 UNIT Vitamin D3 05/15/2020 01:00:00 AM EDT completed NETSMART ([facility]) Sucralfate 1 GM Sucralfate 05/15/2020 01:00:00 AM EDT completed NETSMART ([facility]) Ibuprofen 200 MG Ibuprofen 05/15/2020 01:00:00 AM EDT completed NETSMART ([facility]) Aleve 220 MG Aleve 05/15/2020 01:00:00 AM EDT comp leted NETSMART ([facility]) Benadryl Allergy 25 MG Benadryl Allergy 05/15/2020 01:00:00 AM EDT completed NETSMART ([facility]) C-1000 1000 MG C-1000 05/15/2020 01:00:00 AM EDT c ompleted NETSMART ([facility]) Tums Extra Strength 750 750 MG Tums Extra Strength 750 05/15 01:00:00 AM EDT completed NETSMAR T ([facility]) Melatonin 10 MG Melatonin 05/15/2020 01:00:00 AM EDT completed NETSMART ([facility]) Stress B Complex/Iron Stress B Complex/Iron 05/15/2020 01:00:00 AM EDT completed NETSMART ([facility]) Neosporin Original Neosporin Original 05/15/2020 01:00:00 AM EDT completed NETSMART ([facility]) Pantoprazole Sodium 40 MG Pantoprazole Sodium 05/15/2020 01:00:00 AM E DT completed NETSMART ([facility]) Eliquis 2.5 MG Eliquis 05/15/2020 01:00:00 AM EDT 1.0 {tablet} completed NETSMART ([facility]) Citalopram Hydrobromide 20 MG Citalopram Hydrobromide 2019 01:00:00 AM EDT completed NETSMAR T ([facility]) Atorvastatin Calcium 80 MG Atorvastatin Calcium 05/15/2020 01:00:00 A M EDT completed NETSMART ( [facility]) 1 gram 05/13/2020 12:00:00 AM EDT tablet [...] relationship to nielsen Policy Nielsen Plan Information [facility] COMMUNITY PLAN [employer] [facility] [employer] [id number] SP [id number] [facility] PLAN [facility] [employer] [id number] SP [id number] [facility] PLAN [facility] [employer] [id number] SP [id number] MEDICARE [id number] S [id number] [facility] Community Plan Commercial [id number] Self [id number] [facility] Community Plan Commercial [id number] Self [id number] EMEDNY [id number] SP [id number] [facility] [id number] SP [id number] [facility] MEDICARE [id number] S [id number] MEDICAID [id number] S [id number] MEDICARE JOSHUA [id number] S [id number] [facility] HEA [id number] S [id number] MEDICAID GME [id number] S [id number] [facility] [id number] S 1 [id number] MEDICAID [id number] SP [id number] [facility] COMMUNTY PLAN [id number] 18 [id number] MEDICAID [place] [facility] [id number] [facility] COMMUNITY PLAN [id number] 18 [id number] [facility] Community Plan Commercial [id number] Self [id number] [facility] Medicaid [id number] Self [id number] [facility] Communty Plan Medicaid [id number] Self [id number] [facility] COMMUNITY PLAN XIX [id number] 18 [id number] MEDICAID -PHYSICIAN [id number] [facility] COMMUNTY PLAN [id number] 18 [id number] [facility] Community Plan Commercial [id number] Self [id number] [facility] Medicaid [id number] Self [id number] [facility] Communty Plan Medicaid [id number] Self [id number] [facility] Community Plan Commercial [id number] Self 1 [id number] Medicaid [place] [facility] Medicaid [id number] Self [id number] [facility] Communty Plan Medicaid [id number] Self [id number] [facility] [employer] UN MEDICARE O/P [id number] 18 [id number] Medicaid [place] [facility] Medicaid [id number] Self [id number] [facility] Communty Plan Medicaid [id number] Self [id number] [facility] Community Plan Commercial [id number] Self 1 [id number] MEDICAID [id number] EMERGENCY ROOM [id number] 18 [id number] UN COMMUNITY PLAN MCDO [id number] SP [id number] MEDICARE [id number] SP [id number] A UN COMMUNITY PLAN [facility] [employer] [id number] SP [id number] [facility] Medigap Part B [id number] Self [id number] [place] Medigap Part B [id number] Self [id number] [facility] Medigap Part B [id number] Self [id number] [place] Medigap Part B [id number] Self [id number] Medicaid [place] [facility] Medicaid [id number] Self [id number] [facility] Communty Plan Medicaid [id number] Self [id number] MEDICAID -CLINIC [id number] [facility] MEDICARE-PHYSICIAN [id number] 18 [id number] MEDICARE COMPLETE-[facility] O [id number] S [id number] [facility] Communty Plan Medicaid [id number] Self [id number] SELF PAY ONLY [id number] SP [id number] COMMUNITY PLAN [facility] [id number] SP [id number] ALLSTATE INS CO NO FAULT O UN [id number] S UN ALLSTATE INS CO NO FAULT UN SI2 UN ALLSTATE INS CO NO FAULT [id number] [place] Medicaid [id number] Self ALLSTATE INS CO NO FAULT O [id number] S [id number] [facility] MEDICAID [id number] SP [id number] N SELF PAY ONLY UNAVAILABLE SP UNAV AILABLE [facility] [id number] SP [id number] [facility] [id number] SP [id number] MEDICARE [id number] S [id number] MEDICAID [id number] S [id number] [facility] MEDICARE [id number] S [id number] [facility] [id number] SP [id number] [facility]) O [id number] S [id number] MEDICAID M [id number] S [id number] MEDICAID HEA [id number] S [id number] Problems, Conditions, and Diagnoses Code Display Name Description Problem Type Effective Dates Data Source(s) Z53.29 Procedure and treatment not carried out because of patient's decision for other reasons PROC/TRTMT NOT CRD OUT BEC PT DECISION FOR OTH REASONS Diagn osis 12/05/2020 07:41:00 PM EDT [facility] F10.20 Alcohol dependence, uncomplicated ALCOHOL DEPEND ENCE, UNCOMPLICATED Diagnosis 12/05/2020 07:41:00 PM EDT [facility] GI bleed GI bleed Diagnosis 04/25/2020 06:20:00 PM ED [facility] F43.9 Reaction to severe stress, unspecified U nspecified Trauma- and Stressor- Related Disorder Condition 06/20/2021 12:00:00 AM EDT [facility]) F41.0 Panic disorder [episodic paroxysmal anxiety] Panic Dis order Condition 06/20/2021 12:00:00 AM EDT [facility] ([facility]) F17.200 Nicotine dependence, unspecified, uncomp licated Tobacco Use Disorder, Severe Condition 06/20/2021 12:00:00 AM EDT [facility] ( [facility]) F10.20 Alcohol dependence, uncomplicated Alcohol Use Disorder , Severe Condition 06/20/2021 12:00:00 AM EDT [facility] ([facility]) F41.9 Anxiety disorder, unspecified Unspecified Anxiety Diso rder Condition 06/20/2021 12:00:00 AM EDT [facility] ([facility]) K57.90 [id number] Diverticulosis Problem 06/09/2021 12:00:00 A M EDT eCW1 ([facility]) K64.8 [id number] Internal hemorrhoid Problem 06/09/2021 12:00 :00 AM EDT eCW1 ([facility]) K64.4 [id number] External hemorrhoid Problem 06/09/2021 12:00 :00 AM EDT eCW1 ([facility]) R06.00 [id number] Dyspnea, unspecified type Problem 06/09/2021 12:00:00 AM EDT eCW1 ([facility]) E87.6 [id number] Hypokalemia Problem 06/09/2021 12:00:00 AM E DT eCW1 ([facility]) R18.8 [id number] Other ascites Problem 06/09/2021 12:00:00 AM EDT eCW1 ([facility]) D12.2 [id number] Adenomatous polyp of ascending colon Prob katie 06/09/2021 12:00:00 AM EDT eCW1 ([facility]) D12.3 [id number] Adenomatous polyp of transverse colon Pro blem 06/09/2021 12:00:00 AM EDT eCW1 ([facility]) D51.8 [id number] Macrocytic anemia with vitamin B12 defici ency Problem 06/09/2021 12:00:00 AM EDT eCW1 ([facility]) D12.0 [id number] Adenomatous polyp of cecum Problem 12:00:00 AM EDT eCW1 ([facility]) K63.5 [id number] Polyp of splenic flexure of colon Problem 06/09/2021 12:00:00 AM EDT eCW1 ([facility]) K51.00 [id number] Pancolitis Problem 06/09/2021 12:00:00 AM ED T eCW1 ([facility]) K50.019 [id number] Terminal ileitis with complication Proble m 06/09/2021 12:00:00 AM EDT eCW1 ([facility]) E83.39 [id number] Hypophosphatasia Problem 06/07/2021 12:00:00 AM EDT eCW1 ([facility]) R89.9 [id number] Abnormal laboratory test result Problem 05/08/2021 12:00:00 AM EDT eCW1 ([facility]) D50.0 [id number] Iron deficiency anemia due to chronic blo od loss Problem 04/12/2021 12:00:00 AM EDT eCW1 ([facility]) F51.5 [id number] Nightmares Problem 10/02/2020 12:00:00 AM ES T eCW1 ([facility]) M81.0 Age-related osteoporosis Age-related ost eoporosis without current pathological fracture Problem 09/01/2020 12:00:00 AM EST eCW1 ([facility]) 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, single episod e, in partial remission Major Depressive Disorder, Single episode, In partial remission Condition 06/20/2020 12:00:00 AM EDT [facility] ([facility]) K85.20 Alcohol induced acute pancreatitis witho ut necrosis or infection Alcohol induced acute pancreatitis without necrosis or infection Problem 04/25/2020 01:00:00 AM EDT NETSMART ([facility] ) F10.20 Alcohol dependence, uncomplicated Alcohol depend ence, uncomplicated Problem 04/25/2020 01:00:00 AM EDT [facility]SM[facility] ([facility]) J69.0 Pneumonitis due to inhalation of food an d vomit Pneumonitis due to inhalation of food and vomit Problem 04/25/2020 01:00:00 AM EDT NETS MART ([facility]) I82.B19 Acute embolism and thrombosis of unspeci fied subclavian vein Acute embolism and thrombosis of unspecified subclavian vein Problem 04/25/2020 01:00:00 AM EDT [facility]SMART ([facility] ) F17.210 Nicotine dependence, cigarettes, uncompl icated Nicotine dependence, cigarettes, uncomplicated Problem 04/25/2020 01:00:00 AM EDT NETSMAR T ([facility]) M81.0 Age-related osteoporosis without current pathological fracture Age-related osteoporosis without current pathological fracture Problem 08/2019 01:00:00 AM EDT [facility]SMART ([facility] ) F41.9 Anxiety disorder, unspecified Anxiety disorder, unspec ified Problem 04/25/2020 01:00:00 AM EDT [facility]SMART ([facility] ) F32.9 Major depressive disorder, single episod e, unspecified Major depressive disorder, single episode, unspecified Problem 04/25/2020 01:00:00 AM EDT [facility]SM[facility] ([facility]) Z91.81 History of falling History of falling Problem 0 01:00:00 AM EDT [facility]SMART ([facility]) Z60.2 Problems related to living alone Problems related to l iving alone Problem 04/25/2020 01:00:00 AM EDT NETSMART ([facility] ) 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 s care home (current) use of anticoagulants Problem 04/25/2020 01:00:00 AM EDT [facility]SMART ([facility]) Z79.1 care home (current) use of non-steroidal anti-inflammatories (NSAID) terminal manager (current) use of non-steroidal anti-inflammatories (NSAID) Problem 04/25/2020 01:00:00 AM EDT NETSMART ([facility] ) K92.2 Gastrointestinal hemorrhage, unspecified Gastrointestinal hemorrhage, unspecified Problem 04/25/2020 01:00:00 AM EDT NETSMART ([facility]) M00950 {At Risk for Deliberate Self Harm (Restr aint Risk)} {At Risk for Deliberate Self Harm (Restraint Risk)} Status:Resolved. Problem 04/28/2020 12:00:[address] [facility] Surgeries/Procedures Procedure Description Date Indications Data Source(s) [facility] Telemed E/M Lvl 3--Est pt 06/20/2021 12:00:00 AM EDT - 06/20/2021 12:00:00 AM EDT [facility] ([facility]) Telemed A/O 30" 06/20/2021 12:00:00 AM EDT [facility] ([facility]) [facility] Telemed E/M Lvl 3--Est pt 06/20/2021 12:00:00 AM E DT [facility] ([facility]) Extended Individual Psychotherapy - 45 min 04/05/2021 12:00:00 AM EDT - 04/05/2021 12:00:00 AM EDT [facility] ([facility]) Extended Individual Psychotherapy - 45 min 12:00:00 AM EDT [facility] ([facility]) Unclassified biologics 03/14/2021 12:00:00 AM EDT eCW1 ([facility]) [facility] Telemed E/M Lvl 3--Est pt 03/07/2021 12:00:00 AM EDT - 03/07/2021 12:00:00 AM EDT [facility] ([facility]) Telemed A/O 30" 03/07/2021 12:00:00 AM EDT [facility] ([facility]) [facility] Telemed E/M Lvl 3--Est pt 03/07/2021 12:00:00 AM E DT [facility] ([facility]) [facility] Telemed E/M Lvl 3--Est pt 01/16/2021 12:00:00 AM EDT - 01/16/2021 12:00:00 AM EDT [facility] ([facility]) Telemed A/O 30" 01/16/2021 12:00:00 AM EDT [facility] ([facility]) [facility] Telemed E/M Lvl 3--Est pt 01/16/2021 12:00:00 AM E DT [facility] ([facility]) Extended Individual Psychotherapy - 45 min 01/09/2021 12:00:00 AM EDT - 01/09/2021 12:00:00 AM EDT [facility] ([facility]) Extended Individual Psychotherapy - 45 min 12:00:00 AM EDT [facility] ([facility]) Extended Individual Psychotherapy - 45 min 12/26/2020 12:00:00 AM EDT - 12/26/2020 12:00:00 AM EDT [facility] ([facility]) Extended Individual Psychotherapy - 45 min 12:00:00 AM EDT [facility] ([facility]) [facility] Telemed E/M Lvl 3--Est pt 12/19/2020 12:00:00 AM EDT - 12/19/2020 12:00:00 AM EDT [facility] ([facility]) Telemed A/O 30" 12/19/2020 12:00:00 AM EDT [facility] ([facility]) [facility] Telemed E/M Lvl 3--Est pt 12/19/2020 12:00:00 AM E DT [facility] ([facility]) Brief Individual Psychotherapy - 30 min 12/12/2020 12:00:00 AM EDT - 12/12/2020 12:00:00 AM EDT [facility] ([facility]) Brief Individual Psychotherapy - 30 min 12/12/2020 12: 00:00 AM EDT [facility] ([facility]) [facility] Telemed E/M Lvl 3--Est pt 11/21/2020 12:00:00 AM EDT - 11/21/2020 12:00:00 AM EDT [facility] ([facility]) Telemed A/O 30" 11/21/2020 12:00:00 AM EDT [facility] ([facility]) [facility] Telemed E/M Lvl 3--Est pt 11/21/2020 12:00:00 AM E DT [facility] ([facility]) MHCTelemed E/M Lvl 5--Est pt 11/21/2020 12:00:00 AM ED T [facility] ([facility]) Extended Individual Psychotherapy - 45 min 11/14/2020 12:00:00 AM EDT - 11/14/2020 12:00:00 AM EDT [facility] ([facility]) Extended Individual Psychotherapy - 45 min 12:00:00 AM EDT [facility] ([facility]) Extended Individual Psychotherapy - 45 min 10/19/2020 12:00:00 AM EST - 10/19/2020 12:00:00 AM EST [facility] ([facility]) Extended Individual Psychotherapy - 45 min 12:00:00 AM EST [facility] ([facility]) [facility] Telemed E/M Lvl 3--Est pt 10/17/2020 12:00:00 AM EST - 10/17/2020 12:00:00 AM EST [facility] ([facility]) Telemed A/O 30" 10/17/2020 12:00:00 AM EST [facility] ([facility]) [facility] Telemed E/M Lvl 3--Est pt 10/17/2020 12:00:[address] [facility] ([facility]) TEMPMHCTelemed 30" Psychotherapy 021 12:00:00 AM EST - 09/27/2020 12:00:00 AM EST [facility] ([facility]) TEMPMHCTelemed 30" Psychotherapy 09/26/2020 12:00:00 A M EST [facility] ([facility]) Unclassified biologics 09/14/2020 12:00:00 AM EST eCW1 ([facility]) MHC Telemed E/M Lvl 3--Est pt 09/05/2020 12:00:00 AM EST - 09/05/2020 12:00:00 AM EST [facility] ([facility]) Telemed A/O 30" 09/05/2020 12:00:00 AM EST [facility] ([facility]) MHC Telemed E/M Lvl 3--Est pt 09/05/2020 12:00:[address] [facility] ([facility]) Extended Individual Psychotherapy - 45 min 08/22/2020 12:00:00 AM EST - 08/22/2020 12:00:00 AM EST [facility] ([facility]) Extended Individual Psychotherapy - 45 min 0 12:00:00 AM EST [facility] ([facility]) MHC Telemed E/M Lvl 3--Est pt 07/28/2020 12:00:00 AM EST - 07/28/2020 12:00:00 AM EST [facility] ([facility]) Telemed A/O 30" 07/28/2020 12:00:00 AM EST [facility] ([facility]) [facility] Telemed E/M Lvl 3--Est pt 07/28/2020 12:00:[address] [facility] ([facility]) Extended Individual Psychotherapy - 45 min 07/25/2020 12:00:00 AM EST - 07/25/2020 12:00:00 AM EST [facility] ([facility]) Extended Individual Psychotherapy - 45 min 0 12:00:00 AM EST [facility] ([facility]) Extended Individual Psychotherapy - 45 min 07/04/2020 12:00:00 AM EST - 07/04/2020 12:00:00 AM EST [facility] ([facility]) Extended Individual Psychotherapy - 45 min 0 12:00:00 AM EST [facility] ([facility]) Extended Individual Psychotherapy - 45 min 06/20/2020 12:00:00 AM EDT - 06/20/2020 12:00:00 AM EDT [facility] ([facility]) Extended Individual Psychotherapy - 45 min 0 12:00:00 AM EDT [facility] ([facility]) Extended Individual Psychotherapy - 45 min 06/06/2020 12:00:00 AM EDT - 06/06/2020 12:00:00 AM EDT [facility] ([facility]) Extended Individual Psychotherapy - 45 min 0 12:00:00 AM EDT [facility] ([facility]) Echocardiography Limited Or Follow-Up Study 04/28/2020 12:00:00 AM EDT MED[facility] ([facility]) INSJ NON-TUNNELED CENTRAL VENOUS CATH AGE 5 YR/> 04/28 12:00:00 AM EDT MEDENT ([facility]) [id number]"Psychotherapy 0 12:00:00 AM EDT - 04/26/2020 12:00:00 AM EDT [facility] ([facility]) [id number]"Psychotherapy 04/26/2020 12:00:00 AM EDT [facility] ([facility]) Electrocardiogram Interpretation & Report Only 020 12:00:00 AM EDT MEDENT ([facility]) Results ID Date Data Source [id number] 06/12/2021 11:48:00 AM EDT [facility] Name Value Range Interpretation Code Description Data Apurva rce(s) Supporting Document(s) SARS coronavirus 2 RNA [Presence] in Res piratory specimen by MINDY with probe detection NEGATIVE [facility] This lab was ordered by [facility] a nd reported by [facility]. ID Date Data Source [id number] 06/01/2021 06:28:00 PM EDT [facility] Name Value Range Interpretation Code Description Data Apurva rce(s) Supporting Document(s) SARS coronavirus 2 RNA [Presence] in Res piratory specimen by MINDY with probe detection NEGATIVE [facility] This lab was ordered by [facility] a nd reported by [facility]. ID Date Data Source TOTAL IRON BINDING CAPACIT 2021 12:00:00 AM EDT eCW1 ( [facility]) Name Value Range Interpretation Code Description Data Apurva rce(s) Supporting Document(s) 24.7 13.2-45.0 PERCENT SATURATION eCW1 ([facility]) 72 50-170 IRON (FE) eCW1 ([facility]) 291 250-450 TOTAL IRON BINDING CAPACI TY eCW1 ([facility]) ID Date Data Source FERRITIN 2021 12:00:00 AM EDT eCW1 ([facility]) Name Value Range Interpretation Code Description Data Apurva rce(s) Supporting Document(s) 109 8-252 FERRITIN eCW1 ([facility]) ID Date Data Source CBC with Differential 05/04/2021 12:00:00 AM EDT eCW1 ([facility]) Name Value Range Interpretation Code Description Data Apurva rce(s) Supporting Document(s) 14.1 4.0-10.0 WHITE BLOOD COUNT eCW1 ([facility]) 41.0 36.0-47.0 HEMATOCRIT eCW1 ([facility]) 3.99 4.00-5.40 RED BLOOD COUNT eCW1 ([facility]) 13.7 12.0-15.5 HEMOGLOBIN eCW1 ([facility]) 34.3 27.0-33.0 MEAN CORPUSCULAR HEMOGLOB IN eCW1 ([facility]) 102.8 80.0-96.0 MEAN CORPUSCULAR VOLUME e CW1 ([facility]) 33.4 32.0-36.5 MEAN CORPUSCULAR HGB CONC eCW1 ([facility]) 74.7 36.0-66.0 NEUTROPHILS % eCW1 ([facility]) 407 150-450 PLATELET COUNT, AUTOMATED eCW1 ([facility]) 12.7 11.5-14.5 RED CELL DISTRIBUTION WID TH eCW1 ([facility]) 0.9 0.0-3.0 EOS % eCW1 ([facility]) 7.9 2.0-8.0 MONO % eCW1 ([facility]) 15.2 24.0-44.0 LYMPH % eCW1 ([facility]) 1.1 0.0-0.8 MONO # eCW1 ([facility]) 10.5 1.5-8.5 NEUTROPHILS # eCW1 ([facility]) 2.2 1.5-5.0 LYMPH # eCW1 ([facility]) 0.7 0.0-1.0 BASO % eCW1 ([facility]) 0.1 0.0-0.5 EOS # eCW1 ([facility]) 0.1 0.0-0.2 BASO # eCW1 ([facility]) ID Date Data Source GASTROINTESTINAL GI PANEL (GIPANEL) 05/04/2021 12:00:00 AM EDT eCW1 ([facility]) Name Value Range Interpretation Code Description Data Apurva rce(s) Supporting Document(s) This Gastrointestinal PCR Panel detects the following bacteria, GASTROINTESTINAL (GI) PANEL eCW1 ([facility]) ID Date Data Source C REACTIVE PROTEIN QUANTITATIV (At [facility]) 05/04/2021 12:00 :00 AM EDT eCW1 ([facility]) Name Value Range Interpretation Code Description Data Apurva rce(s) Supporting Document(s) 4.93 0.00-0.30 C REACTIVE PROTEIN QUANTI TATIV eCW1 ([facility]) ID Date Data Source Comprehensive Metabolic Profile (CMP) 05/04/2021 12:00:00 AM EDT eCW1 ([facility]) Name Value Range Interpretation Code Description Data Apurva rce(s) Supporting Document(s) 0.59 0.55-1.30 CREATININE FOR GFR eCW1 ([facility]) 6 7-18 BLOOD UREA NITROGEN eCW1 ([facility]) 103 70-100 GLUCOSE, FASTING eCW1 ([facility]) 3.9 3.5-5.1 POTASSIUM SERUM eCW1 (Critical [facility] hospital) 135 136-145 SODIUM LEVEL eCW1 ([facility]) > 60.0 >45 GLOMERULAR FILTRATION RATE eCW 1 ([facility]) 8.6 8.8-10.2 CALCIUM LEVEL eCW1 ([facility]) 25 21-32 CARBON DIOXIDE LEVEL eCW1 ([facility]) 102 98-107 CHLORIDE LEVEL eCW1 ([facility]) 67 12-78 ALT/SGPT eCW1 ([facility]) 108 7-37 AST/SGOT eCW1 ([facility]) 195 45-117 ALKALINE PHOSPHATASE eCW1 ([facility]) 3.0 3.2-5.2 ALBUMIN eCW1 ([facility]) 1.1 0.2-1.0 BILIRUBIN,TOTAL eCW1 ([facility]) 7.0 6.4-8.2 TOTAL PROTEIN eCW1 ([facility]) 0.8 1.2-2.2 ALBUMIN/GLOBULIN RATIO eCW1 ([facility]) ID Date Data Source LIPASE 05/04/2021 12:00:00 AM EDT eCW1 ([facility]) Name Value Range Interpretation Code Description Data Apurva rce(s) Supporting Document(s) [id number] LIPASE eCW1 ([facility]) ID Date Data Source ERYTHROCYTE SEDIMENTATION RATE 05/04/2021 12:00:00 AM EDT eC W1 ([facility]) Name Value Range Interpretation Code Description Data Apurva rce(s) Supporting Document(s) 48 0-30 ERYTHROCYTE SEDIMENTATION RATE eCW1 ([facility]) ID Date Data Source [id number] 12/07/2020 07:38:00 AM EDT [facility] Name Value Range Interpretation Code Description Data Apurva rce(s) Supporting Document(s) White Blood Count 3.5-10.5 Normal (applies to non-numeri c results) [facility] Red Blood Count 3.90-5.00 Normal (applies to non-numeric results) [facility] Hemoglobin 12.0-15.5 Normal (applies to non-numeric resul ts) [facility] Hematocrit 34.9-44.5 Normal (applies to non-numeric resul ts) [facility] Mean Corpuscular Volume 81.2-95.1 Above high normal [facility] Mean Corpuscular Hgb 25.6-32.2 Above high normal [facility] Mean Corpuscular Hgb Conc 32.0-36.0 Normal (applies to no n-numeric results) [facility] Red Cell Distribution Width 11.9-15.5 Normal (appli es to non-numeric results) [facility] Platelet Count 159 x10 3/uL 150-450 Normal (applies to non-numeric results) [facility] Mean Platelet Volume 9.4-12.4 Below low normal [facility] Neutrophils% (Auto) 31.0-71.0 Normal (applies to non-nume fortino results) [facility] Lymphocytes% (Auto) 20.0-55.0 Normal (applies to non-nume fortino results) [facility] Monocytes% (Auto) 4.0-12.0 Normal (applies to non-numeri c results) [facility] Eosinophils% (Auto) 1.0-8.0 Normal (applies to non-nume fortino results) [facility] Basophils% (Auto) 0.0-2.0 Normal (applies to non-numeri c results) [facility] Immature Granulocytes% (Auto) 0.0-2.0 Normal (carmen lies to non-numeric results) [facility] Neutrophils# (Auto) 1.50-6.20 Normal (applies to non-nume fortino results) [facility] Lymphocytes# (Auto) 1.20-4.00 Normal (applies to non-nume fortino results) [facility] Monocytes# (Auto) 0.00-0.90 Normal (applies to non-numeri c results) [facility] Eosinophils# (Auto) 0.00-0.50 Normal (applies to non-nume fortino results) [facility] Basophils# (Auto) 0.00-0.20 Normal (applies to non-numeri c results) [facility] Immature Granulocytes# (Auto) 0.00-7.00 No rmal (applies to non-numeric results) [facility] ID Date Data Source [id number] 12/07/2020 08:39:00 PM EDT [facility] Name Value Range Interpretation Code Description Data Apurva rce(s) Supporting Document(s) Hepatitis A Ab,IgG result Normal (applies to no n-numeric results) [facility] Result indicates immunity to hepatitis A infection from either vaccination or past exposure to hepatitis A. False-positive results may be observed in patients with CMV antibodies or heterophilic antibodies. REFERENCE VALUE Unvaccinated: Negative Vaccinated: Positive Test Performed by: [place] [address] Manual Qa Tester: Darinel Murray M.D. Ph.D.; CLIA# [id number] ID Date Data Source [id number] 12/06/2020 12:54:00 PM EDT [facility] Name Value Range Interpretation Code Description Data Apurva rce(s) Supporting Document(s) HIV Screen result Nonreactive Normal (applies to non-numer ic results) [facility] Test [facility] By[facility] [address] [place] [address] Director: David Gold MD ID Date Data Source [id number] 12/06/2020 12:54:00 PM EDT [facility] Name Value Range Interpretation Code Description Data Apurva rce(s) Supporting Document(s) CPK result 62 U/L 26-192 Normal (applies to non-numeric resul ts) [facility] Test Performed By: [facility] [address] [place] [address] Director: David Gold MD ID Date Data Source [id number] 12/06/2020 12:54:00 PM EDT [facility] Name Value Range Interpretation Code Description Data Apurva rce(s) Supporting Document(s) Hepatitis C Virus Ab result Nonreactive Norm al (applies to non-numeric results) [facility] Test Performed By: [facility] [address] [place] [address] Director: David Gold MD ID Date Data Source [id number] 12/06/2020 12:54:00 PM EDT [facility] Value Range Interpretation Code Description Data Apurva rce(s) Supporting Document(s) Hep Bs Ag result T-Test Nonreactive Normal (applies to non -numeric results) [facility] Test Performed By: [facility] [address] [place] [address] Director: David Gold MD ID Date Data Source [id number] 12/06/2020 12:54:00 PM EDT [facility] Value Range Interpretation Code Description Data Apurva rce(s) Supporting Document(s) Syphilis Serology result Nonreactive Normal (applies to non-numeric results) [facility] Test Performed By: [facility] [address] [place] [address] Director: David Gold MD ID Date Data Source [id number] 12/05/2020 10:07:00 PM EDT [facility] Value Range Interpretation Code Description Data Apurva rce(s) Supporting Document(s) Sodium 138 mmol/L 136-145 Normal (applies to non-numeric resul ts) [facility] Potassium 3.5-5.1 Normal (applies to non-numeric resul ts) [facility] Chloride 99 mmol/L 98-107 Normal (applies to non-numeric resul ts) [facility] Carbon Dioxide CO2 21-32 Normal (applies to non-numer ic results) [facility] Anion Gap 5.0-16.0 Normal (applies to non-numeric resul ts) [facility] BUN 9 mg/dL 7-18 Normal (applies to non-numeric results) [facility] Creatinine,Serum 0.7-1.2 Normal (applies to non-numeric results) [facility] GFR >60 Normal (applies to non-numeric results) [facility] Glucose Level 114 mg/dL 60-99 Above high normal [facility] Reference range is only applicable when patient is fasting Note the following drug interference: Sulfasalazine Sulfapyridine Can see falsely depressed Can see falsely elevated result with up to 17% results with up to 11% decrease in measurement increase in measurement Recommend patients be collected for this test prior to administration of either drug. Calcium 8.5-10.1 Below low normal [facility] Bilirubin,Total 0.1-1.9 Normal (applies to non-numeric results) [facility] SGOT(AST) 90 U/L 15-37 Above high normal [facility] Note the following drug interference: Sulfasalazine Sulfapyridine Can see falsely depressed Can see falsely elevated result with up to 10% results with up to 10% decrease in measurement increase in measurement Recommend patients be collected for this test prior to administration of either drug. SGPT(ALT) 81 U/L 12-78 Above high normal [facility] Note the following drug interference: Sulfasalazine Sulfapyridine Can see falsely depressed Can see falsely elevated result with up to 29% results with up to 10% decrease in measurement increase in measurement Recommend patients be collected for this test prior to administration of either drug. Alkaline Phosphatase 127 U/L 38-126 Above high normal [facility] can increase Alkaline Phosp le vels up to 2 times the normal adult value. Normal values for children and adolescents are 2 to 3 times the normal adult value. Total Protein 6.0-8.2 Normal (applies to non-numeric re sults) [facility] Albumin Level 3.4-5.0 Normal (applies to non-numeric re sults) [facility] ID Date Data Source [id number] 12/05/2020 10:07:00 PM EDT [facility] Name Value Range Interpretation Code Description Data Apurva rce(s) Supporting Document(s) Bilirubin,Direct 0.05-0.20 Normal (applies to non-numeric results) [facility] ID Date Data Source [id number] 12/05/2020 10:07:00 PM EDT [facility] Name Value Range Interpretation Code Description Data Apurva rce(s) Supporting Document(s) Phosphorus 2.5-4.9 Normal (applies to non-numeric resul ts) [facility] ID Date Data Source [id number] 12/05/2020 10:07:00 PM EDT [facility] Name Value Range Interpretation Code Description Data Apurva rce(s) Supporting Document(s) Magnesium 1.8-2.4 Normal (applies to non-numeric resul ts) [facility] ID Date Data Source [id number] 12/05/2020 10:07:00 PM EDT [facility] Name Value Range Interpretation Code Description Data Apurva rce(s) Supporting Document(s) Thyroid Stimulate Hormone TSH 0.358-3.74 Above high normal [facility] ID Date Data Source [id number] 12/05/2020 09:40:00 PM EDT [facility] Name Value Range Interpretation Code Description Data Apurva rce(s) Supporting Document(s) White Blood Count 3.5-10.5 Normal (applies to non-numeri c results) [facility] Red Blood Count 3.90-5.00 Normal (applies to non-numeric results) [facility] Hemoglobin 12.0-15.5 Normal (applies to non-numeric resul ts) [facility] Hematocrit 34.9-44.5 Normal (applies to non-numeric resul ts) [facility] Mean Corpuscular Volume 81.2-95.1 Above high normal [facility] Mean Corpuscular Hgb 25.6-32.2 Above high normal [facility] Mean Corpuscular Hgb Conc 32.0-36.0 Normal (applies to no n-numeric results) [facility] Red Cell Distribution Width 11.9-15.5 Normal (appli es to non-numeric results) [facility] Platelet Count 198 x10 3/uL 150-450 Normal (applies to non-numeric results) [facility] Mean Platelet Volume 9.4-12.4 Below low normal [facility] Neutrophils% (Auto) 31.0-71.0 Normal (applies to non-nume fortino results) [facility] Lymphocytes% (Auto) 20.0-55.0 Normal (applies to non-nume fortino results) [facility] Monocytes% (Auto) 4.0-12.0 Normal (applies to non-numeri c results) [facility] Eosinophils% (Auto) 1.0-8.0 Normal (applies to non-nume fortino results) [facility] Basophils% (Auto) 0.0-2.0 Normal (applies to non-numeri c results) [facility] Immature Granulocytes% (Auto) 0.0-2.0 Normal (carmen lies to non-numeric results) [facility] Neutrophils# (Auto) 1.50-6.20 Normal (applies to non-nume fortino results) [facility] Lymphocytes# (Auto) 1.20-4.00 Below low normal Health system Monocytes# (Auto) 0.00-0.90 Normal (applies to non-numeri c results) [facility] Eosinophils# (Auto) 0.00-0.50 Normal (applies to non-nume fortino results) [facility] Basophils# (Auto) 0.00-0.20 Normal (applies to non-numeri c results) [facility] Immature Granulocytes# (Auto) 0.00-7.00 No rmal (applies to non-numeric results) [facility] ID Date Data Source [id number] 12/08/2020 03:15:00 PM EDT [facility] Name Value Range Interpretation Code Description Data Apurva rce(s) Supporting Document(s) Chlamydia,Urine Negative Normal (applies to non-numeric results) [facility] Test Performed By: [facility] [address] [place] [address] Director: David Gold MD . GC Urine Negative Normal (applies to non-numeric resul ts) [facility] Test Performed By: [facility] [address] [place] [address] Director: David Gold MD . Methodology: Second generation nucleic acid amplification. ID Date Data Source [id number] 12/07/2020 08:27:00 PM EDT [facility] Value Range Interpretation Code Description Data Apurva rce(s) Supporting Document(s) Hepatitis A Ab,IgG result Normal (applies to no n-numeric results) [facility] Result indicates immunity to hepatitis A infection from either vaccination or past exposure to hepatitis A. False-positive results may be observed in patients with CMV antibodies or heterophilic antibodies. REFERENCE VALUE Unvaccinated: Negative Vaccinated: Positive Test Performed by: [place] [address] Manual Qa Tester: Darinel Murray M.D. Ph.D.; CLIA# [id number] ID Date Data Source [id number] 12/06/2020 12:49:00 PM EDT [facility] Value Range Interpretation Code Description Data Apurva rce(s) Supporting Document(s) HIV 1/2 Ab p24 Ag Screen Nonreactive Normal (applies to non-numeric results) [facility] Test Performed By: [facility] [address] [place] [address] Director: David Gold MD ID Date Data Source [id number] 12/06/2020 12:49:00 PM EDT [facility] Value Range Interpretation Code Description Data Apurva rce(s) Supporting Document(s) Hep C Ab-T Test Nonreactive Normal (applies to non-numeric results) [facility] Test Performed By: [facility] [address] [place] [address] Director: David Gold MD ID Date Data Source [id number] 12/06/2020 12:49:00 PM EDT [facility] Value Range Interpretation Code Description Data Apurva rce(s) Supporting Document(s) Hep Bs Ag Result T-Test Nonreactive Normal (applies to non -numeric results) [facility] Test Performed By: [facility] [address] [place] [address] Director: David Gold MD ID Date Data Source [id number] 12/06/2020 12:49:00 PM EDT [facility] Value Range Interpretation Code Description Data Apurva rce(s) Supporting Document(s) Syphilis Serology Nonreactive Normal (applies to non-numer ic results) [facility] Test Performed By: [facility] [address] [place] [address] Director: David Gold MD ID Date Data Source [id number] 12/06/2020 11:59:00 AM EDT [facility] Value Range Interpretation Code Description Data Apurva rce(s) Supporting Document(s) CPK 62 U/L 26-192 Normal (applies to non-numeric resul ts) [facility] Test Performed By: [facility] [address] [place] [address] Director: David Gold MD ID Date Data Source [id number] 12/05/2020 10:06:00 PM EDT [facility] Value Range Interpretation Code Description Data Apurva rce(s) Supporting Document(s) Ethanol Less than 10.0 Normal (applies to non-numeric r esults) [facility] ID Date Data Source [id number] 12/08/2020 04:03:00 PM EDT [facility] Value Range Interpretation Code Description Data Apurva rce(s) Supporting Document(s) Chlamydia,Urine result Negative Normal (applies to non-n umeric results) [facility] Test Performed By: [place] [address] Director: David Gold MD . GC Urine result Negative Normal (applies to non-numeric results) [facility] Test Performed By: [place] [address] Director: David Gold MD . Methodology: Second generation nucleic acid amplification. ID Date Data Source [id number] 12/05/2020 09:41:00 PM EDT [facility] Name Value Range Interpretation Code Description Data Apurva rce(s) Supporting Document(s) UDS Benzodiazepines Screen Negative Normal (applies to n on-numeric results) [facility] UDS Cocaine Screen Negative Normal (applies to non-numer ic results) [facility] UDS Ampetamine Screen Negative Normal (applies to non-nu meric results) [facility] UDS Cannabinoids Screen Negative Normal (applies to non- numeric results) [facility] UDS Opiates Screen Negative Normal (applies to non-numer ic results) [facility] UDS Barbiturates Screen Negative Normal (applies to non- numeric results) [facility] Threshold Levels Benzodiazepine 200 ng/mL Cocaine 300 ng/mL Amphetamines 1000 ng/mL Cannabinoids (THC) 50 ng/mL Opiates 300 ng/mL Barbiturates 200 ng/mL All positive findings are presumptive and unconfirmed. Confirmation of positive results are performed only at request of provider. Unconfirmed results must not be used for non-medical purposes (i.e. preemployment and legal purposes) ID Date Data Source [id number] 12/05/2020 09:47:00 PM EDT [facility] Collected By: Nurse's Aide Time Collect ed: 2009 Collected By: Nurse's Aide Time Collect ed: 2009 Name Value Range Interpretation Code Description Data Apurva rce(s) Supporting Document(s) Color,Urine Colorl-Dk Y Normal (applies to non-numeric res ults) [facility] Clarity,Urine Clear Normal (applies to non-numeric re sults) [facility] Specific [place],Urine 1.005-1.030 Normal (applies to non- numeric results) [facility] pH,Urine 5.0-8.0 Normal (applies to non-numeric resul ts) [facility] Protein,Urine Negative Normal (applies to non-numeric re sults) [facility] Glucose,Urine Negative Normal (applies to non-numeric re sults) [facility] Ketones,Urine Negative Normal (applies to non-numeric re sults) [facility] Blood,Urine Negative [facility] Bil[facility],Urine Negative Normal (applies to non-numeric results) [facility] Urobilinogen,Urine 0.2-1.0 Normal (applies to non-numer ic results) [facility] Leukocyte Esterase,Urine Negative Normal (applies to non -numeric results) [facility] Nitrite,Urine Negative Normal (applies to non-numeric re sults) [facility] ID Date Data Source [id number] 12/05/2020 09:47:00 PM EDT [facility] Collected By: Nurse's Aide Time Collect ed: 2009 Collected By: Nurse's Aide Time Collect ed: 2009 Name Value Range Interpretation Code Description Data Apurva rce(s) Supporting Document(s) RBC,Urine None Seen [facility] WBC,Urine None Seen [facility] Casts,Urine None Seen Normal (applies to non-numeric resu lts) [facility] Epithelial Cells,Urine None - Few Normal (applies to non-n umeric results) [facility] Bacteria,Urine None Seen [facility] ital Mucus,Urine None Seen [facility] ID Date Data Source [id number] 12/05/2020 03:44:00 PM EDT [facility] Name Value Range Interpretation Code Description Data Apurva rce(s) Supporting Document(s) SARS-CoV-2 (COVID 19) NEGATIVE - SARS-CoV-2 (COVID19) [facility] This lab was ordered by [facility] a nd reported by [facility]. ID Date Data Source Low Dose Lung Screening CT Chest 06/22/2020 10:10:30 AM EDT eCW1 ([facility]) Name Value Range Interpretation Code Description Data Apurva rce(s) Supporting Document(s) Low Dose Lung Screening CT [address] [address] eCW1 ([facility]) ID Date Data Source [id number] 05/11/2020 08:12:00 PM EDT [facility] DATE OF EXAM: 05/11/2020ULTRASOUND VASCU [...] and basilic veins. Professional interpretation performed at [facility] .End of diagnostic report for accession: [id number] Interpreted: Jeyson Potts MDTranscribed: 05/11/2020 08:09 PMSigned: 05/11/2020 08:12 PM Jeyson Potts MD [facility] # [id number] [facility] # [id number] Name Value Range Interpretation Code Description Data Apurva rce(s) Supporting Document(s) ID Date Data Source [id number] 05/11/2020 07:52:23 AM EDT [facility] Name Value Range Interpretation Code Description Data Apurva rce(s) Supporting Document(s) HGB 9.6 g/dL (12.0-16.0) L [facility] HCT 29.7 % (36.0-47.0) L [facility] ID Date Data Source [id number] 05/11/2020 12:50:54 AM EDT [facility] PATIENT ABO/Rh A POSITIVEANT IBODY SCREEN NEGATIVESPEC EXP DATE 05/13/2020TESTING SITE PERFORMED AT [address] [place], [place] [address]BLOOD BANK COMMENT BLOOD TYPE CONFIRMED.UNIT NUMBER [id number] COMPONENT TYPE LEUKOPOOR RED CELLSUNIT DIVISION 00STATUS OF UNIT TRANSFUSEDTRANSFUSION STATUS OK TO TRANSFUSECROSSMATCH RESULT COMPATIBLE Name Value Range Interpretation Code Description Data Apurva rce(s) Supporting Document(s) ID Date Data Source [id number] 05/10/2020 06:16:35 PM EDT [facility] Name Value Range Interpretation Code Description Data Apurva rce(s) Supporting Document(s) HGB 7.8 g/dL (12.0-16.0) L [facility] HCT 23.8 % (36.0-47.0) L [facility] ID Date Data Source [id number] 05/10/2020 01:24:51 PM EDT [facility] Name Value Range Interpretation Code Description Data Apurva rce(s) Supporting Document(s) HGB 8.8 g/dL (12.0-16.0) L [facility] HCT 27.3 % (36.0-47.0) L [facility] ID Date Data Source [id number] 05/10/2020 07:07:26 AM EDT [facility] Name Value Range Interpretation Code Description Data Apurva rce(s) Supporting Document(s) MAGNESIUM 1.8 mg/dL (1.7-2.4) [facility] ID Date Data Source [id number] 05/10/2020 07:07:26 AM EDT [facility] Name Value Range Interpretation Code Description Data Apurva rce(s) Supporting Document(s) PHOSPHORUS 3.1 mg/dL (2.5-4.5) [facility] ID Date Data Source [id number] 05/10/2020 07:07:26 AM EDT [facility] Name Value Range Interpretation Code Description Data Apurva rce(s) Supporting Document(s) SODIUM 139 mmol/L (136-145) [facility] POTASSIUM 3.4 mmol/L (3.6-5.2) L [facility] CHLORIDE 106 mmol/L (100-108) [facility] CO2 22 mmol/L (22-31) [facility] ANION GAP 11 mmol/L (7-16) [facility] UREA NITROGEN 3 mg/dL (7-24) L [facility] CREATININE 0.68 mg/dL (0.60-1.00) [facility] BUN/CREAT RATIO 4.4 RATIO (10.0-20.0) L [facility] GLUCOSE 104 mg/dL (70-99) H [facility] CALCIUM 7.8 mg/dL (8.4-10.2) L [facility] GFR >60 ml/min/1.73m2 (>59) [facility] GFR ( AMER) >60 ml/min/1.73m2 (>59) [facility] GFR INTERPRETATION [facility] --NORMAL KIDNEY FUNCTION OR MILD DISEASE - GFR >OR= 60CHRONIC KIDNEY DISEASE - GFR 15 - 59RENAL FAILURE - GFR <15 Est. GFR calculation based on the MDRDstudy equation, which assumes a steadystate for creatinine. Est. GFR should notbe used for medication dosing. ID Date Data Source [id number] 05/10/2020 06:59:27 AM EDT [facility] Name Value Range Interpretation Code Description Data Apurva rce(s) Supporting Document(s) APTT 68.6 s (22.0-34.3) H [facility] ID Date Data Source [id number] 05/10/2020 06:40:19 AM EDT [facility] Name Value Range Interpretation Code Description Data Apurva rce(s) Supporting Document(s) HGB 8.3 g/dL (12.0-16.0) L [facility] HCT 26.0 % (36.0-47.0) L [facility] ID Date Data Source [id number] 2020 10:43:08 PM EDT [facility] Name Value Range Interpretation Code Description Data Apurva rce(s) Supporting Document(s) APTT 42.7 s (22.0-34.3) H [facility] ID Date Data Source [id number] 2020 11:02:31 PM EDT [facility] Name Value Range Interpretation Code Description Data Apurva rce(s) Supporting Document(s) SPECIMEN DESCRIPTION [facility] C DIFF TOXIN B (NEG) [facility] 027 NAP1 B1 (NEG) [facility] COMMENT [facility] IS CLINICALLY INDICATED, PLEASE CONTA CT THE [facility] ([phone]) WITHIN 3 DAYS OF THIS REPORT. ID Date Data Source [id number] 2020 04:48:27 PM EDT [facility] Name Value Range Interpretation Code Description Data Apurva rce(s) Supporting Document(s) HGB 9.1 g/dL (12.0-16.0) L [facility] HCT 29.4 % (36.0-47.0) L [facility] ID Date Data Source [id number] 05/10/2020 10:06:27 AM EDT [facility] [place], [place] [address]Tel# SURGICAL PATHOLOGY REPORTPatient Name:ALEX JAMESDOB:2Received:2020Accession #:[id number](s) [...] By Shahzad Troy M.D. [facility] [place] [address]Technical component performed at [facility], Histopathology, [address] [place] [address], Formerly [facility], 1928–1983.Reported at [facility], [address] [place] [address], [facility].This report may include immunohistochemical or in-situ hybridizationresults. Testing was developed and the performance characteristicsdetermined by [facility] [employer] [facility] [employer] [facility], as required byCLIA '88. The FDA has determined that approval for specific use is notnecessary for clinical use. The quality of Hematoxylin and Eosin stainsand as applicable, for all immunohistochemical and/or special stains,including positive and negative controls, were reviewed and consider edappropriate.ICD codes: R89.7CPT4 codes: A: 10050QB: 65343W Name Value Range Interpretation Code Description Data Apurva rce(s) Supporting Document(s) ID Date Data Source [id number] 2020 01:47:24 PM EDT [facility] Name Value Range Interpretation Code Description Data Apurva rce(s) Supporting Document(s) POC GLUCOSE 83 mg/dL (70-99) [facility] NOTIFIED NURSEPERFORMED BY CLINICAL S TAFF ID Date Data Source [id number] 2020 06:43:20 AM EDT [facility] Name Value Range Interpretation Code Description Data Apurva rce(s) Supporting Document(s) APTT 55.0 s (22.0-34.3) H [facility] ID Date Data Source [id number] 2020 06:40:39 AM EDT [facility] Name Value Range Interpretation Code Description Data Apurva rce(s) Supporting Document(s) WBC 8.8 10*3/uL (4.1-11.0) [facility] [place] RBC 2.47 10*6/uL (4.00-5.40) L [facility] HGB 7.5 g/dL (12.0-16.0) L [facility] HCT 23.5 % (36.0-47.0) L [facility] MCV 95.0 fL (80.0-95.0) [facility] MCH 30.5 pg (27.0-32.0) [facility] MCHC 32.1 g/dL (32.0-36.0) [facility] RDW 17.3 % (10.5-14.5) H [facility] PLT 484 10*3/uL (150-450) H [facility] MPV 9.4 fL (7.1-10.7) [facility] NEUT % 68.1 % (35.0-75.0) [facility] LYMPH % 17.1 % (16.0-52.0) [facility] MONO % 10.1 % (0.0-8.0) H [facility] EOS % 2.4 % (0.0-5.0) [facility] BASO % 2.3 % (0.0-4.0) [facility] NEUT # 6.0 10*3/uL (1.8-7.7) [facility] LYMPH # 1.5 10*3/uL (1.2-4.8) [facility] MONO # 0.9 10*3/uL (0.0-0.8) H [facility] Eosinophils [#/volume] in Blood by Automated count 0.2 10*3/uL (0.0-0 .5) [facility] BASO # 0.2 10*3/uL (0.0-0.2) [facility] ID Date Data Source [id number] 05/08/2020 09:34:49 PM EDT [facility] Name Value Range Interpretation Code Description Data Apurva rce(s) Supporting Document(s) APTT 61.7 s (22.0-34.3) H [facility] ID Date Data Source [id number] 05/08/2020 02:20:50 PM EDT [facility] Name Value Range Interpretation Code Description Data Apurva rce(s) Supporting Document(s) APTT 74.6 s (22.0-34.3) H [facility] ID Date Data Source [id number] 05/08/2020 10:35:00 AM EDT [facility] Name Value Range Interpretation Code Description Data Apurva rce(s) Supporting Document(s) SARS coronavirus 2 RNA [Presence] in Res piratory specimen by MINDY with probe detection [facility] This lab was reported by [facility]. ID Date Data Source [id number] 05/08/2020 03:28:37 PM EDT [facility] Name Value Range Interpretation Code Description Data Apurva rce(s) Supporting Document(s) SPECIMEN DESCRIPTION [facility] COVID19 RESULT (NDET) [facility] THIS ASSAY AMPLIFIES AND DETECTSTHE TARG ET RNA USING REAL-TIME PCR.NEGATIVE 2019_NCOV RT-PCR RESULTS DONOT PRECLUDE 2019_NCOV INFECTION ANDSHOULD NOT BE USED THE SOLE BASISFOR PATIENT MANAGEMENT DECISIONS. COMMENT [facility] APPROVED B Y THE [place]. THE [place] FOODAND DRUG ADMINISTRATION HAS NOT APPROVEDTHIS TEST. NEGATIVE RESULTS DO NOT [id number] INFECTION AND SHOULD NOT BEUSED THE SOLE BASIS FOR CLINICALDIAGNOSIS OR PATIENT MANAGEMENT DECISIONS.EMAILED TO [facility] AT [address] [place] [phone] [place] [id number]. FIRST TEST [facility] [employer] [facility] [employer] [facility] SYMPTOMATIC [facility] DATE OF SYMPT ONSET [facility] H[facility]ED [facility] ICU [facility] CONGREGATE CARE SET [facility] ID Date Data Source [id number] 05/08/2020 07:10:35 AM EDT [facility] Name Value Range Interpretation Code Description Data Apurva rce(s) Supporting Document(s) SODIUM 138 mmol/L (136-145) [facility] POTASSIUM 3.6 mmol/L (3.6-5.2) [facility] CHLORIDE 105 mmol/L (100-108) [facility] CO2 21 mmol/L (22-31) L [facility] ANION GAP 12 mmol/L (7-16) [facility] UREA NITROGEN 6 mg/dL (7-24) L [facility] CREATININE 1.04 mg/dL (0.60-1.00) H [facility] BUN/CREAT RATIO 5.8 RATIO (10.0-20.0) L [facility] GLUCOSE 105 mg/dL (70-99) H [facility] CALCIUM 8.2 mg/dL (8.4-10.2) L [facility] GFR 53 ml/min/1.73m2 (>59) L [facility] GFR ( AMER) >60 ml/min/1.73m2 (>59) [facility] GFR INTERPRETATION [facility] --NORMAL KIDNEY FUNCTION OR MILD DISEASE - GFR >OR= 60CHRONIC KIDNEY DISEASE - GFR 15 - 59RENAL FAILURE - GFR <15 Est. GFR calculation based on the MDRDstudy equation, which assumes a steadystate for creatinine. Est. GFR should notbe used for medication dosing. ID Date Data Source [id number] 05/08/2020 07:10:35 AM EDT [facility] Name Value Range Interpretation Code Description Data Apurva rce(s) Supporting Document(s) MAGNESIUM 1.9 mg/dL (1.7-2.4) [facility] ID Date Data Source [id number] 05/08/2020 06:48:47 AM EDT [facility] Name Value Range Interpretation Code Description Data Apurva rce(s) Supporting Document(s) APTT 87.7 s (22.0-34.3) H [facility] ID Date Data Source [id number] 05/08/2020 06:46:31 AM EDT [facility] Name Value Range Interpretation Code Description Data Apurva rce(s) Supporting Document(s) WBC 11.2 10*3/uL (4.1-11.0) H [facility] RBC 3.00 10*6/uL (4.00-5.40) L [facility] HGB 9.2 g/dL (12.0-16.0) L [facility] HCT 28.9 % (36.0-47.0) L [facility] MCV 96.3 fL (80.0-95.0) H [facility] MCH 30.7 pg (27.0-32.0) [facility] MCHC 31.8 g/dL (32.0-36.0) L [facility] RDW 17.4 % (10.5-14.5) [facility] PLT 609 10*3/uL (150-450) [facility] MPV 9.5 fL (7.1-10.7) [facility] NEUT % 68.7 % (35.0-75.0) [facility] LYMPH % 19.0 % (16.0-52.0) [facility] MONO % 8.6 % (0.0-8.0) [facility] EOS % 2.4 % (0.0-5.0) [facility] BASO % 1.3 % (0.0-4.0) [facility] NEUT # 7.7 10*3/uL (1.8-7.7) [facility] LYMPH # 2.1 10*3/uL (1.2-4.8) [facility] MONO # 1.0 10*3/uL (0.0-0.8) [facility] Eosinophils [#/volume] in Blood by Automated count 0.3 10*3/uL (0.0-0 .5) [facility] BASO # 0.1 10*3/uL (0.0-0.2) [facility] ID Date Data Source [id number] 05/07/2020 10:37:54 PM EDT [facility] Name Value Range Interpretation Code Description Data Apurva rce(s) Supporting Document(s) APTT 80.0 s (22.0-34.3) [facility] ID Date Data Source [id number] 05/07/2020 04:34:59 PM EDT [facility] Name Value Range Interpretation Code Description Data Apurva rce(s) Supporting Document(s) APTT 61.4 s (22.0-34.3) [facility] ID Date Data Source [id number] 05/07/2020 04:17:37 PM EDT [facility] Name Value Range Interpretation Code Description Data Apurva rce(s) Supporting Document(s) HGB 8.7 g/dL (12.0-16.0) [facility] HCT 26.5 % (36.0-47.0) [facility] ID Date Data Source [id number] 05/07/2020 08:01:54 AM EDT [facility] Name Value Range Interpretation Code Description Data Apurva rce(s) Supporting Document(s) PHOSPHORUS 2.4 mg/dL (2.5-4.5) [facility] ID Date Data Source [id number] 05/07/2020 08:01:54 AM EDT [facility] Name Value Range Interpretation Code Description Data Apurva rce(s) Supporting Document(s) MAGNESIUM 1.6 mg/dL (1.7-2.4) [facility] ID Date Data Source [id number] 05/07/2020 08:01:54 AM EDT [facility] Name Value Range Interpretation Code Description Data Apurva rce(s) Supporting Document(s) TOTAL PROTEIN 5.4 g/dL (6.4-8.2) [facility] ALBUMIN 2.3 g/dL (3.2-4.5) [facility] GLOBULIN 3.1 g/dL (2.7-4.3) [facility] ALB/GLOB RATIO 0.7 RATIO [facility] BILIRUBIN,TOTAL 0.5 mg/dL (0.0-1.0) [facility] PLEASE NOTE:Total bilirubin results may be falselyelevated in patients taking Eltrombopag. BILIRUBIN,CONJUGATED 0.3 mg/dL (0.0-0.3) [facility] BILIRUBIN,UNCONJ. 0.2 mg/dL (0.0-0.7) [facility] ALKALINE PHOSPHATASE 105 U/L (45-117) [facility] AST (SGOT) 41 U/L (11-39) [facility] ALT (SGPT) 33 U/L (12-78) [facility] ID Date Data Source [id number] 05/07/2020 08:01:54 AM EDT [facility] Name Value Range Interpretation Code Description Data Apurva rce(s) Supporting Document(s) SODIUM 138 mmol/L (136-145) [facility] POTASSIUM 3.8 mmol/L (3.6-5.2) [facility] CHLORIDE 104 mmol/L (100-108) [facility] CO2 24 mmol/L (22-31) [facility] ANION GAP 10 mmol/L (7-16) [facility] UREA NITROGEN 5 mg/dL (7-24) [facility] CREATININE 0.80 mg/dL (0.60-1.00) [facility] BUN/CREAT RATIO 6.3 RATIO (10.0-20.0) [facility] GLUCOSE 98 mg/dL (70-99) [facility] CALCIUM 8.3 mg/dL (8.4-10.2) [facility] GFR >60 ml/min/1.73m2 (>59) [facility] GFR ( AMER) >60 ml/min/1.73m2 (>59) [facility] GFR INTERPRETATION [facility] --NORMAL KIDNEY FUNCTION OR MILD DISEASE - GFR >OR= 60CHRONIC KIDNEY DISEASE - GFR 15 - 59RENAL FAILURE - GFR <15 Est. GFR calculation based on the MDRDstudy equation, which assumes a steadystate for creatinine. Est. GFR should notbe used for medication dosing. ID Date Data Source [id number] 05/07/2020 07:29:24 AM EDT [facility] Name Value Range Interpretation Code Description Data Apurva rce(s) Supporting Document(s) APTT 38.9 s (22.0-34.3) [facility] ID Date Data Source [id number] 05/07/2020 07:18:03 AM EDT [facility] Name Value Range Interpretation Code Description Data Apurva rce(s) Supporting Document(s) WBC 9.1 10*3/uL (4.1-11.0) [facility] [place] RBC 2.71 10*6/uL (4.00-5.40) [facility] HGB 8.6 g/dL (12.0-16.0) [facility] HCT 25.9 % (36.0-47.0) [facility] MCV 95.5 fL (80.0-95.0) [facility] MCH 31.7 pg (27.0-32.0) [facility] MCHC 33.2 g/dL (32.0-36.0) [facility] RDW 16.8 % (10.5-14.5) [facility] PLT 448 10*3/uL (150-450) [facility] MPV 9.8 fL (7.1-10.7) [facility] NEUT % 68.9 % (35.0-75.0) [facility] LYMPH % 18.3 % (16.0-52.0) [facility] MONO % 9.2 % (0.0-8.0) [facility] EOS % 2.5 % (0.0-5.0) [facility] BASO % 1.1 % (0.0-4.0) [facility] NEUT # 6.2 10*3/uL (1.8-7.7) [facility] LYMPH # 1.7 10*3/uL (1.2-4.8) [facility] MONO # 0.8 10*3/uL (0.0-0.8) [facility] Eosinophils [#/volume] in Blood by Automated count 0.2 10*3/uL (0.0-0 .5) [facility] BASO # 0.1 10*3/uL (0.0-0.2) [facility] ID Date Data Source [id number] 05/06/2020 05:45:01 PM EDT [facility] Name Value Range Interpretation Code Description Data Apurva rce(s) Supporting Document(s) HGB 9.2 g/dL (12.0-16.0) L [facility] HCT 28.2 % (36.0-47.0) [facility] ID Date Data Source [id number] 05/08/2020 04:04:00 PM EDT [facility] [id number] [place], [place] [address]TWGIZBL NAME: ALEX JAMESDATE OF : 2REPORT: DISCHARGE SUMMARYPATIENT NUMBER: [id number] STATUS: IPMEDICAL RECORD NUMBER: [id number] OF ADMISSION: 04/25/2020DATE OF DISCHARGE: 05/06/2020ROOM: 00DISCHARGE/TRANSFER [...] where she is. [place]thinks she is in [place]. Otherwise, she will be sent upstairs with asitter. She is to continue on the thiamine. GI will continue to followher.DICTATED BY: WADE Elizabethictated: 05/06/2020 12:51DT: 05/06/2020 13:34Job #: [id number]: [facility] enerated reports are notconfirmed or authenticated unless they are signed by the providerElectronically Authenticated by:LOR PELAEZ MD On 05/08/2020 04:04 PM EDT Name Value Range Interpretation Code Description Data Apurva rce(s) Supporting Document(s) ID Date Data Source [id number] 05/06/2020 11:09:23 AM EDT [facility] Name Value Range Interpretation Code Description Data Apurva rce(s) Supporting Document(s) APTT 57.0 s (22.0-34.3) [facility] ID Date Data Source [id number] 05/06/2020 04:42:35 AM EDT [facility] Name Value Range Interpretation Code Description Data Apurva rce(s) Supporting Document(s) WBC 8.3 10*3/uL (4.1-11.0) [facility] [place] RBC 2.93 10*6/uL (4.00-5.40) [facility] HGB 9.0 g/dL (12.0-16.0) [facility] HCT 27.7 % (36.0-47.0) [facility] MCV 94.7 fL (80.0-95.0) [facility] MCH 30.8 pg (27.0-32.0) [facility] MCHC 32.5 g/dL (32.0-36.0) [facility] RDW 17.0 % (10.5-14.5) [facility] PLT 490 10*3/uL (150-450) [facility] MPV 8.7 fL (7.1-10.7) [facility] ID Date Data Source [id number] 05/06/2020 04:53:50 AM EDT [facility] Name Value Range Interpretation Code Description Data Apurva rce(s) Supporting Document(s) APTT 60.8 s (22.0-34.3) [facility] ID Date Data Source [id number] 05/06/2020 03:29:44 AM EDT [facility] Name Value Range Interpretation Code Description Data Apurva rce(s) Supporting Document(s) PHOSPHORUS 3.0 mg/dL (2.5-4.5) [facility] ID Date Data Source [id number] 05/06/2020 03:29:44 AM EDT [facility] Name Value Range Interpretation Code Description Data Apurva rce(s) Supporting Document(s) SODIUM 142 mmol/L (136-145) [facility] POTASSIUM 3.6 mmol/L (3.6-5.2) [facility] CHLORIDE 107 mmol/L (100-108) [facility] CO2 27 mmol/L (22-31) [facility] ANION GAP 8 mmol/L (7-16) [facility] UREA NITROGEN 5 mg/dL (7-24) [facility] CREATININE 0.74 mg/dL (0.60-1.00) [facility] BUN/CREAT RATIO 6.8 RATIO (10.0-20.0) [facility] GLUCOSE 102 mg/dL (70-99) [facility] CALCIUM 8.3 mg/dL (8.4-10.2) [facility] TOTAL PROTEIN 5.8 g/dL (6.4-8.2) [facility] ALBUMIN 2.5 g/dL (3.2-4.5) [facility] GLOBULIN 3.3 g/dL (2.7-4.3) [facility] ALB/GLOB RATIO 0.8 RATIO [facility] ALKALINE PHOSPHATASE 120 U/L (45-117) [facility] BILIRUBIN,TOTAL 0.4 mg/dL (0.0-1.0) [facility] PLEASE NOTE:Total bilirubin results may be falselyelevated in patients taking Eltrombopag. AST (SGOT) 51 U/L (11-39) [facility] ALT (SGPT) 40 U/L (12-78) [facility] GFR >60 ml/min/1.73m2 (>59) [facility] GFR ( AMER) >60 ml/min/1.73m2 (>59) [facility] GFR INTERPRETATION [facility] --NORMAL KIDNEY FUNCTION OR MILD DISEASE - GFR >OR= 60CHRONIC KIDNEY DISEASE - GFR 15 - 59RENAL FAILURE - GFR <15 Est. GFR calculation based on the MDRDstudy equation, which assumes a steadystate for creatinine. Est. GFR should notbe used for medication dosing. ID Date Data Source [id number] 05/06/2020 03:29:44 AM EDT [facility] Name Value Range Interpretation Code Description Data Apurva rce(s) Supporting Document(s) MAGNESIUM 1.8 mg/dL (1.7-2.4) [facility] ID Date Data Source [id number] 05/06/2020 03:27:19 AM EDT [facility] Name Value Range Interpretation Code Description Data Apurva rce(s) Supporting Document(s) CALCIUM IONIZED 5.04 mg/dL (4.64-5.28) [facility] IONIZED CALCIUM NORMALIZED TO PH 7.40 AN D 37 DEGREES C. ID Date Data Source [id number] 05/06/2020 02:33:31 AM EDT [facility] Name Value Range Interpretation Code Description Data Apurva rce(s) Supporting Document(s) PT 11.9 s (9.2-11.9) [facility] INR 1.14 [facility] SUGGESTED THERAPEUTIC RANGES USING INR F ORSTABILIZED ANTICOAGULATED PATIENTS:STANDARD DOSE THERAPY INR 2.0-3.0 DVT, PE, PREVENT DVT OR EMBOLISMHIGH DOSE THERAPY INR 2.5-3.5 PREVENT EMBOLISM FROM MECHANICAL HEART VALVE ID Date Data Source [id number] 05/05/2020 11:02:52 PM EDT [facility] Name Value Range Interpretation Code Description Data Apurva rce(s) Supporting Document(s) WBC 8.7 10*3/uL (4.1-11.0) [facility] [place] RBC 2.83 10*6/uL (4.00-5.40) [facility] HGB 9.2 g/dL (12.0-16.0) [facility] HCT 27.1 % (36.0-47.0) [facility] MCV 95.8 fL (80.0-95.0) [facility] MCH 32.6 pg (27.0-32.0) [facility] MCHC 34.0 g/dL (32.0-36.0) [facility] RDW 17.0 % (10.5-14.5) [facility] PLT 447 10*3/uL (150-450) [facility] MPV 8.5 fL (7.1-10.7) [facility] ID Date Data Source [id number] 05/05/2020 09:17:54 PM EDT [facility] Name Value Range Interpretation Code Description Data Apurva rce(s) Supporting Document(s) APTT 54.7 s (22.0-34.3) [facility] ID Date Data Source [id number] 05/05/2020 05:30:38 PM EDT [facility] Name Value Range Interpretation Code Description Data Apurva rce(s) Supporting Document(s) WBC 7.5 10*3/uL (4.1-11.0) [facility] [place] RBC 3.00 10*6/uL (4.00-5.40) [facility] HGB 9.2 g/dL (12.0-16.0) [facility] HCT 28.8 % (36.0-47.0) [facility] MCV 96.2 fL (80.0-95.0) [facility] MCH 30.7 pg (27.0-32.0) [facility] MCHC 32.0 g/dL (32.0-36.0) [facility] RDW 17.0 % (10.5-14.5) [facility] PLT 461 10*3/uL (150-450) [facility] MPV 8.9 fL (7.1-10.7) [facility] ID Date Data Source [id number] 05/05/2020 03:03:15 PM EDT [facility] Name Value Range Interpretation Code Description Data Apurva rce(s) Supporting Document(s) APTT 54.6 s (22.0-34.3) [facility] ID Date Data Source [id number] 05/05/2020 11:11:21 AM EDT [facility] Name Value Range Interpretation Code Description Data Apurva rce(s) Supporting Document(s) PT 11.8 s (9.2-11.9) [facility] INR 1.13 [facility] SUGGESTED THERAPEUTIC RANGES USING INR F ORSTABILIZED ANTICOAGULATED PATIENTS:STANDARD DOSE THERAPY INR 2.0-3.0 DVT, PE, PREVENT DVT OR EMBOLISMHIGH DOSE THERAPY INR 2.5-3.5 PREVENT EMBOLISM FROM MECHANICAL HEART VALVE ID Date Data Source [id number] 05/05/2020 11:01:23 AM EDT [facility] Name Value Range Interpretation Code Description Data Apurva rce(s) Supporting Document(s) WBC 7.3 10*3/uL (4.1-11.0) [facility] [place] RBC 2.99 10*6/uL (4.00-5.40) [facility] HGB 9.5 g/dL (12.0-16.0) [facility] HCT 28.8 % (36.0-47.0) [facility] MCV 96.3 fL (80.0-95.0) [facility] MCH 31.9 pg (27.0-32.0) [facility] MCHC 33.1 g/dL (32.0-36.0) [facility] RDW 17.2 % (10.5-14.5) [facility] PLT 446 10*3/uL (150-450) [facility] MPV 8.9 fL (7.1-10.7) [facility] ID Date Data Source [id number] 05/05/2020 09:36:56 AM EDT [facility] Name Value Range Interpretation Code Description Data Apurva rce(s) Supporting Document(s) SODIUM 144 mmol/L (136-145) [facility] POTASSIUM 3.9 mmol/L (3.6-5.2) [facility] CHLORIDE 108 mmol/L (100-108) [facility] CO2 28 mmol/L (22-31) [facility] ANION GAP 8 mmol/L (7-16) [facility] UREA NITROGEN 5 mg/dL (7-24) [facility] CREATININE 0.83 mg/dL (0.60-1.00) [facility] BUN/CREAT RATIO 6.0 RATIO (10.0-20.0) [facility] GLUCOSE 117 mg/dL (70-99) [facility] CALCIUM 8.1 mg/dL (8.4-10.2) [facility] GFR >60 ml/min/1.73m2 (>59) [facility] GFR ( AMER) >60 ml/min/1.73m2 (>59) [facility] GFR INTERPRETATION [facility] --NORMAL KIDNEY FUNCTION OR MILD DISEASE - GFR >OR= 60CHRONIC KIDNEY DISEASE - GFR 15 - 59RENAL FAILURE - GFR <15 Est. GFR calculation based on the MDRDstudy equation, which assumes a steadystate for creatinine. Est. GFR should notbe used for medication dosing. ID Date Data Source [id number] 05/05/2020 09:15:28 AM EDT [facility] Name Value Range Interpretation Code Description Data Apurva rce(s) Supporting Document(s) APTT 55.7 s (22.0-34.3) [facility] ID Date Data Source [id number] 05/05/2020 03:35:09 AM EDT [facility] Name Value Range Interpretation Code Description Data Apurva rce(s) Supporting Document(s) CALCIUM IONIZED 4.88 mg/dL (4.64-5.28) [facility] IONIZED CALCIUM NORMALIZED TO PH 7.40 AN D 37 DEGREES C. ID Date Data Source [id number] 05/05/2020 03:33:59 AM EDT [facility] Name Value Range Interpretation Code Description Data Apurva rce(s) Supporting Document(s) PHOSPHORUS 2.8 mg/dL (2.5-4.5) [facility] ID Date Data Source [id number] 05/05/2020 03:33:59 AM EDT [facility] Name Value Range Interpretation Code Description Data Apurva rce(s) Supporting Document(s) MAGNESIUM 2.0 mg/dL (1.7-2.4) [facility] ID Date Data Source [id number] 05/05/2020 03:33:59 AM EDT [facility] Name Value Range Interpretation Code Description Data Apurva rce(s) Supporting Document(s) SODIUM 144 mmol/L (136-145) [facility] POTASSIUM 4.0 mmol/L (3.6-5.2) [facility] CHLORIDE 108 mmol/L (100-108) [facility] CO2 28 mmol/L (22-31) [facility] ANION GAP 8 mmol/L (7-16) [facility] UREA NITROGEN 6 mg/dL (7-24) [facility] CREATININE 0.90 mg/dL (0.60-1.00) [facility] BUN/CREAT RATIO 6.7 RATIO (10.0-20.0) [facility] GLUCOSE 121 mg/dL (70-99) [facility] CALCIUM 8.2 mg/dL (8.4-10.2) [facility] TOTAL PROTEIN 5.8 g/dL (6.4-8.2) [facility] ALBUMIN 2.5 g/dL (3.2-4.5) [facility] GLOBULIN 3.3 g/dL (2.7-4.3) [facility] ALB/GLOB RATIO 0.8 RATIO [facility] ALKALINE PHOSPHATASE 121 U/L (45-117) [facility] BILIRUBIN,TOTAL 0.6 mg/dL (0.0-1.0) [facility] PLEASE NOTE:Total bilirubin results may be falselyelevated in patients taking Eltrombopag. AST (SGOT) 55 U/L (11-39) [facility] ALT (SGPT) 47 U/L (12-78) [facility] GFR >60 ml/min/1.73m2 (>59) [facility] GFR ( AMER) >60 ml/min/1.73m2 (>59) [facility] GFR INTERPRETATION [facility] --NORMAL KIDNEY FUNCTION OR MILD DISEASE - GFR >OR= 60CHRONIC KIDNEY DISEASE - GFR 15 - 59RENAL FAILURE - GFR <15 Est. GFR calculation based on the MDRDstudy equation, which assumes a steadystate for creatinine. Est. GFR should notbe used for medication dosing. ID Date Data Source [id number] 05/05/2020 02:41:39 AM EDT [facility] Name Value Range Interpretation Code Description Data Apurva rce(s) Supporting Document(s) APTT 86.3 s (22.0-34.3) [facility] ID Date Data Source [id number] 05/05/2020 02:33:43 AM EDT [facility] Name Value Range Interpretation Code Description Data Apurva rce(s) Supporting Document(s) WBC 7.1 10*3/uL (4.1-11.0) [facility] [place] RBC 3.00 10*6/uL (4.00-5.40) [facility] HGB 9.3 g/dL (12.0-16.0) [facility] HCT 28.7 % (36.0-47.0) [facility] MCV 95.5 fL (80.0-95.0) [facility] MCH 30.9 pg (27.0-32.0) [facility] MCHC 32.4 g/dL (32.0-36.0) [facility] RDW 17.5 % (10.5-14.5) [facility] PLT 437 10*3/uL (150-450) [facility] MPV 8.5 fL (7.1-10.7) [facility] ID Date Data Source [id number] 05/04/2020 08:27:24 PM EDT [facility] Name Value Range Interpretation Code Description Data Apurva rce(s) Supporting Document(s) SODIUM 142 mmol/L (136-145) [facility] POTASSIUM 3.8 mmol/L (3.6-5.2) [facility] CHLORIDE 105 mmol/L (100-108) [facility] CO2 30 mmol/L (22-31) [facility] ANION GAP 7 mmol/L (7-16) [facility] UREA NITROGEN 6 mg/dL (7-24) [facility] CREATININE 0.93 mg/dL (0.60-1.00) [facility] BUN/CREAT RATIO 6.5 RATIO (10.0-20.0) [facility] GLUCOSE 114 mg/dL (70-99) [facility] CALCIUM 8.4 mg/dL (8.4-10.2) [facility] GFR >60 ml/min/1.73m2 (>59) [facility] GFR ( AMER) >60 ml/min/1.73m2 (>59) [facility] GFR INTERPRETATION [facility] --NORMAL KIDNEY FUNCTION OR MILD DISEASE - GFR >OR= 60CHRONIC KIDNEY DISEASE - GFR 15 - 59RENAL FAILURE - GFR <15 Est. GFR calculation based on the MDRDstudy equation, which assumes a steadystate for creatinine. Est. GFR should notbe used for medication dosing. ID Date Data Source [id number] 05/04/2020 04:56:44 PM EDT [facility] Name Value Range Interpretation Code Description Data Apurva rce(s) Supporting Document(s) APTT 64.9 s (22.0-34.3) [facility] ID Date Data Source [id number] 05/04/2020 02:51:38 PM EDT [facility] Name Value Range Interpretation Code Description Data Apurva rce(s) Supporting Document(s) SODIUM 143 mmol/L (136-145) [facility] POTASSIUM 4.3 mmol/L (3.6-5.2) [facility] CHLORIDE 105 mmol/L (100-108) [facility] CO2 31 mmol/L (22-31) [facility] ANION GAP 7 mmol/L (7-16) [facility] UREA NITROGEN 6 mg/dL (7-24) [facility] CREATININE 0.93 mg/dL (0.60-1.00) [facility] BUN/CREAT RATIO 6.5 RATIO (10.0-20.0) [facility] GLUCOSE 113 mg/dL (70-99) [facility] CALCIUM 8.6 mg/dL (8.4-10.2) [facility] GFR >60 ml/min/1.73m2 (>59) [facility] GFR ( AMER) >60 ml/min/1.73m2 (>59) [facility] GFR INTERPRETATION [facility] --NORMAL KIDNEY FUNCTION OR MILD DISEASE - GFR >OR= 60CHRONIC KIDNEY DISEASE - GFR 15 - 59RENAL FAILURE - GFR <15 Est. GFR calculation based on the MDRDstudy equation, which assumes a steadystate for creatinine. Est. GFR should notbe used for medication dosing. ID Date Data Source [id number] 05/04/2020 10:31:51 AM EDT [facility] Name Value Range Interpretation Code Description Data Apurva rce(s) Supporting Document(s) PHOSPHORUS 3.3 mg/dL (2.5-4.5) [facility] ID Date Data Source [id number] 05/04/2020 10:31:51 AM EDT [facility] Name Value Range Interpretation Code Description Data Apurva rce(s) Supporting Document(s) SODIUM 143 mmol/L (136-145) [facility] POTASSIUM 3.7 mmol/L (3.6-5.2) [facility] CHLORIDE 105 mmol/L (100-108) [facility] CO2 33 mmol/L (22-31) [facility] ANION GAP 5 mmol/L (7-16) [facility] UREA NITROGEN 5 mg/dL (7-24) [facility] CREATININE 0.78 mg/dL (0.60-1.00) [facility] BUN/CREAT RATIO 6.4 RATIO (10.0-20.0) [facility] GLUCOSE 98 mg/dL (70-99) [facility] CALCIUM 8.6 mg/dL (8.4-10.2) [facility] GFR >60 ml/min/1.73m2 (>59) [facility] GFR ([facility]) >60 ml/min/1.73m2 (>59) [facility] GFR INTERPRETATION [facility] --NORMAL KIDNEY FUNCTION OR MILD DISEASE - GFR >OR= 60CHRONIC KIDNEY DISEASE - GFR 15 - 59RENAL FAILURE - GFR <15 Est. GFR calculation based on the MDRDstudy equation, which assumes a steadystate for creatinine. Est. GFR should notbe used for medication dosing. ID Date Data Source [id number] 05/04/2020 10:17:46 AM EDT [facility] Name Value Range Interpretation Code Description Data Apurva rce(s) Supporting Document(s) POTASSIUM 3.7 mmol/L (3.6-5.2) [facility] ID Date Data Source [id number] 05/04/2020 10:01:01 AM EDT [facility] Name Value Range Interpretation Code Description Data Apurva rce(s) Supporting Document(s) APTT 62.5 s (22.0-34.3) [facility] ID Date Data Source [id number] 05/04/2020 02:52:18 AM EDT [facility] Name Value Range Interpretation Code Description Data Apurva rce(s) Supporting Document(s) CALCIUM IONIZED 4.92 mg/dL (4.64-5.28) [facility] IONIZED CALCIUM NORMALIZED TO PH 7.40 AN D 37 DEGREES C. ID Date Data Source [id number] 05/04/2020 02:49:43 AM EDT [facility] Name Value Range Interpretation Code Description Data Apurva rce(s) Supporting Document(s) PHOSPHORUS 3.6 mg/dL (2.5-4.5) [facility] ID Date Data Source [id number] 05/04/2020 02:49:43 AM EDT [facility] Name Value Range Interpretation Code Description Data Apurva rce(s) Supporting Document(s) MAGNESIUM 2.7 mg/dL (1.7-2.4) H [facility] ID Date Data Source [id number] 05/04/2020 02:49:43 AM EDT [facility] Name Value Range Interpretation Code Description Data Apurva rce(s) Supporting Document(s) SODIUM 146 mmol/L (136-145) [facility] POTASSIUM 3.7 mmol/L (3.6-5.2) [facility] CHLORIDE 106 mmol/L (100-108) [facility] CO2 32 mmol/L (22-31) [facility] ANION GAP 8 mmol/L (7-16) [facility] UREA NITROGEN 4 mg/dL (7-24) L [facility] CREATININE 0.79 mg/dL (0.60-1.00) [facility] BUN/CREAT RATIO 5.1 RATIO (10.0-20.0) L [facility] GLUCOSE 102 mg/dL (70-99) H [facility] CALCIUM 8.5 mg/dL (8.4-10.2) [facility] TOTAL PROTEIN 5.9 g/dL (6.4-8.2) L [facility] ALBUMIN 2.6 g/dL (3.2-4.5) L [facility] GLOBULIN 3.3 g/dL (2.7-4.3) [facility] ALB/GLOB RATIO 0.8 RATIO [facility] ALKALINE PHOSPHATASE 130 U/L (45-117) [facility] BILIRUBIN,TOTAL 0.7 mg/dL (0.0-1.0) [facility] PLEASE NOTE:Total bilirubin results may be falselyelevated in patients taking Eltrombopag. AST (SGOT) 46 U/L (11-39) [facility] ALT (SGPT) 52 U/L (12-78) [facility] GFR >60 ml/min/1.73m2 (>59) [facility] GFR ( AMER) >60 ml/min/1.73m2 (>59) [facility] GFR INTERPRETATION [facility] --NORMAL KIDNEY FUNCTION OR MILD DISEASE - GFR >OR= 60CHRONIC KIDNEY DISEASE - GFR 15 - 59RENAL FAILURE - GFR <15 Est. GFR calculation based on the MDRDstudy equation, which assumes a steadystate for creatinine. Est. GFR should notbe used for medication dosing. ID Date Data Source [id number] 05/04/2020 02:19:09 AM EDT [facility] Name Value Range Interpretation Code Description Data Apurva rce(s) Supporting Document(s) APTT 43.3 s (22.0-34.3) H [facility] ID Date Data Source [id number] 05/04/2020 02:06:17 AM EDT [facility] Name Value Range Interpretation Code Description Data Apurva rce(s) Supporting Document(s) WBC 6.7 10*3/uL (4.1-11.0) [facility] RBC 3.22 10*6/uL (4.00-5.40) L [facility] HGB 9.9 g/dL (12.0-16.0) [facility] HCT 30.8 % (36.0-47.0) [facility] MCV 95.6 fL (80.0-95.0) [facility] MCH 30.6 pg (27.0-32.0) [facility] MCHC 32.0 g/dL (32.0-36.0) [facility] RDW 16.9 % (10.5-14.5) [facility] PLT 425 10*3/uL (150-450) [facility] MPV 8.5 fL (7.1-10.7) [facility] ID Date Data Source [id number] 05/03/2020 09:26:23 PM EDT [facility] Name Value Range Interpretation Code Description Data Apurva rce(s) Supporting Document(s) PHOSPHORUS 3.7 mg/dL (2.5-4.5) [facility] ID Date Data Source [id number] 05/03/2020 09:26:23 PM EDT [facility] Name Value Range Interpretation Code Description Data Apurva rce(s) Supporting Document(s) MAGNESIUM 1.7 mg/dL (1.7-2.4) [facility] ID Date Data Source [id number] 05/03/2020 09:26:23 PM EDT [facility] Name Value Range Interpretation Code Description Data Apurva rce(s) Supporting Document(s) SODIUM 147 mmol/L (136-145) [facility] POTASSIUM 4.1 mmol/L (3.6-5.2) [facility] CHLORIDE 107 mmol/L (100-108) [facility] CO2 32 mmol/L (22-31) [facility] ANION GAP 8 mmol/L (7-16) [facility] UREA NITROGEN 4 mg/dL (7-24) [facility] CREATININE 0.78 mg/dL (0.60-1.00) [facility] BUN/CREAT RATIO 5.1 RATIO (10.0-20.0) [facility] GLUCOSE 94 mg/dL (70-99) [facility] CALCIUM 8.4 mg/dL (8.4-10.2) [facility] GFR >60 ml/min/1.73m2 (>59) [facility] GFR ( AMER) >60 ml/min/1.73m2 (>59) [facility] GFR INTERPRETATION [facility] --NORMAL KIDNEY FUNCTION OR MILD DISEASE - GFR >OR= 60CHRONIC KIDNEY DISEASE - GFR 15 - 59RENAL FAILURE - GFR <15 Est. GFR calculation based on the MDRDstudy equation, which assumes a steadystate for creatinine. Est. GFR should notbe used for medication dosing. ID Date Data Source [id number] 05/03/2020 02:35:10 PM EDT [facility] Name Value Range Interpretation Code Description Data Apurva rce(s) Supporting Document(s) PHOSPHORUS 3.8 mg/dL (2.5-4.5) [facility] ID Date Data Source [id number] 05/03/2020 02:35:10 PM EDT [facility] Name Value Range Interpretation Code Description Data Apurva rce(s) Supporting Document(s) MAGNESIUM 1.8 mg/dL (1.7-2.4) [facility] ID Date Data Source [id number] 05/03/2020 02:35:10 PM EDT [facility] Name Value Range Interpretation Code Description Data Apurva rce(s) Supporting Document(s) SODIUM 147 mmol/L (136-145) [facility] POTASSIUM 3.5 mmol/L (3.6-5.2) [facility] CHLORIDE 107 mmol/L (100-108) [facility] CO2 31 mmol/L (22-31) [facility] ANION GAP 9 mmol/L (7-16) [facility] UREA NITROGEN 4 mg/dL (7-24) [facility] CREATININE 0.79 mg/dL (0.60-1.00) [facility] BUN/CREAT RATIO 5.1 RATIO (10.0-20.0) [facility] GLUCOSE 96 mg/dL (70-99) [facility] CALCIUM 7.8 mg/dL (8.4-10.2) [facility] GFR >60 ml/min/1.73m2 (>59) [facility] GFR ([facility] AMER) >60 ml/min/1.73m2 (>59) [facility] GFR INTERPRETATION [facility] --NORMAL KIDNEY FUNCTION OR MILD DISEASE - GFR >OR= 60CHRONIC KIDNEY DISEASE - GFR 15 - 59RENAL FAILURE - GFR <15 Est. GFR calculation based on the MDRDstudy equation, which assumes a steadystate for creatinine. Est. GFR should notbe used for medication dosing. ID Date Data Source [id number] 05/03/2020 11:08:49 AM EDT [facility] Name Value Range Interpretation Code Description Data Apurva rce(s) Supporting Document(s) AMMONIA <10 umol/L (11-32) [facility] ID Date Data Source [id number] 05/03/2020 10:51:22 AM EDT [facility] Name Value Range Interpretation Code Description Data Apurva rce(s) Supporting Document(s) TSH,ULTRASENSITIVE @ 3.392 mIU/L (0.360-4.170) [facility] PERFORMED AT [address] [place] [id number] ID Date Data Source [id number] 05/03/2020 08:56:50 AM EDT [facility] Name Value Range Interpretation Code Description Data Apurva rce(s) Supporting Document(s) SODIUM 147 mmol/L (136-145) [facility] POTASSIUM 4.0 mmol/L (3.6-5.2) [facility] CHLORIDE 108 mmol/L (100-108) [facility] CO2 31 mmol/L (22-31) [facility] ANION GAP 8 mmol/L (7-16) [facility] UREA NITROGEN 4 mg/dL (7-24) [facility] CREATININE 0.78 mg/dL (0.60-1.00) [facility] BUN/CREAT RATIO 5.1 RATIO (10.0-20.0) [facility] GLUCOSE 106 mg/dL (70-99) [facility] CALCIUM 8.2 mg/dL (8.4-10.2) [facility] GFR >60 ml/min/1.73m2 (>59) [facility] GFR ( AMER) >60 ml/min/1.73m2 (>59) [facility] GFR INTERPRETATION [facility] --NORMAL KIDNEY FUNCTION OR MILD DISEASE - GFR >OR= 60CHRONIC KIDNEY DISEASE - GFR 15 - 59RENAL FAILURE - GFR <15 Est. GFR calculation based on the MDRDstudy equation, which assumes a steadystate for creatinine. Est. GFR should notbe used for medication dosing. ID Date Data Source [id number] 05/03/2020 08:56:50 AM EDT [facility] Name Value Range Interpretation Code Description Data Apurva rce(s) Supporting Document(s) MAGNESIUM 1.8 mg/dL (1.7-2.4) [facility] ID Date Data Source [id number] 05/03/2020 08:56:50 AM EDT [facility] Name Value Range Interpretation Code Description Data Apurva rce(s) Supporting Document(s) PHOSPHORUS 3.4 mg/dL (2.5-4.5) [facility] ID Date Data Source [id number] 05/03/2020 02:34:02 AM EDT [facility] Name Value Range Interpretation Code Description Data Apurva rce(s) Supporting Document(s) CALCIUM IONIZED 5.04 mg/dL (4.64-5.28) [facility] IONIZED CALCIUM NORMALIZED TO PH 7.40 AN D 37 DEGREES C. ID Date Data Source [id number] 05/03/2020 02:27:36 AM EDT [facility] Name Value Range Interpretation Code Description Data Apurva rce(s) Supporting Document(s) PHOSPHORUS 3.7 mg/dL (2.5-4.5) [facility] ID Date Data Source [id number] 05/03/2020 02:27:36 AM EDT [facility] Name Value Range Interpretation Code Description Data Apurva rce(s) Supporting Document(s) MAGNESIUM 1.8 mg/dL (1.7-2.4) [facility] ID Date Data Source [id number] 05/03/2020 02:27:36 AM EDT [facility] Name Value Range Interpretation Code Description Data Apurva rce(s) Supporting Document(s) SODIUM 147 mmol/L (136-145) [facility] POTASSIUM 3.7 mmol/L (3.6-5.2) [facility] CHLORIDE 107 mmol/L (100-108) [facility] CO2 33 mmol/L (22-31) [facility] ANION GAP 7 mmol/L (7-16) [facility] UREA NITROGEN 4 mg/dL (7-24) [facility] CREATININE 0.76 mg/dL (0.60-1.00) [facility] BUN/CREAT RATIO 5.3 RATIO (10.0-20.0) [facility] GLUCOSE 91 mg/dL (70-99) [facility] CALCIUM 8.2 mg/dL (8.4-10.2) [facility] TOTAL PROTEIN 5.7 g/dL (6.4-8.2) [facility] ALBUMIN 2.6 g/dL (3.2-4.5) [facility] GLOBULIN 3.1 g/dL (2.7-4.3) [facility] ALB/GLOB RATIO 0.8 RATIO [facility] ALKALINE PHOSPHATASE 117 U/L (45-117) [facility] BILIRUBIN,TOTAL 0.8 mg/dL (0.0-1.0) [facility] PLEASE NOTE:Total bilirubin results may be falselyelevated in patients taking Eltrombopag. AST (SGOT) 55 U/L (11-39) [facility] ALT (SGPT) 62 U/L (12-78) [facility] GFR >60 ml/min/1.73m2 (>59) [facility] GFR ( AMER) >60 ml/min/1.73m2 (>59) [facility] GFR INTERPRETATION [facility] --NORMAL KIDNEY FUNCTION OR MILD DISEASE - GFR >OR= 60CHRONIC KIDNEY DISEASE - GFR 15 - 59RENAL FAILURE - GFR <15 Est. GFR calculation based on the MDRDstudy equation, which assumes a steadystate for creatinine. Est. GFR should notbe used for medication dosing. ID Date Data Source [id number] 05/03/2020 01:59:12 AM EDT [facility] Name Value Range Interpretation Code Description Data Apurva rce(s) Supporting Document(s) APTT 70.7 s (22.0-34.3) [facility] ID Date Data Source [id number] 05/03/2020 01:42:52 AM EDT [facility] Name Value Range Interpretation Code Description Data Apurva rce(s) Supporting Document(s) WBC 6.3 10*3/uL (4.1-11.0) [facility] RBC 3.21 10*6/uL (4.00-5.40) [facility] HGB 9.8 g/dL (12.0-16.0) [facility] HCT 30.7 % (36.0-47.0) [facility] MCV 95.4 fL (80.0-95.0) [facility] MCH 30.6 pg (27.0-32.0) [facility] MCHC 32.0 g/dL (32.0-36.0) [facility] RDW 17.0 % (10.5-14.5) [facility] PLT 341 10*3/uL (150-450) [facility] MPV 8.2 fL (7.1-10.7) [facility] ID Date Data Source [id number] 05/02/2020 09:01:03 PM EDT [facility] Name Value Range Interpretation Code Description Data Apurva rce(s) Supporting Document(s) PHOSPHORUS 3.5 mg/dL (2.5-4.5) [facility] ID Date Data Source [id number] 05/02/2020 09:01:03 PM EDT [facility] Name Value Range Interpretation Code Description Data Apurva rce(s) Supporting Document(s) MAGNESIUM 2.0 mg/dL (1.7-2.4) [facility] ID Date Data Source [id number] 05/02/2020 09:01:03 PM EDT [facility] Name Value Range Interpretation Code Description Data Apurva rce(s) Supporting Document(s) SODIUM 147 mmol/L (136-145) [facility] POTASSIUM 3.6 mmol/L (3.6-5.2) [facility] CHLORIDE 108 mmol/L (100-108) [facility] CO2 33 mmol/L (22-31) [facility] ANION GAP 6 mmol/L (7-16) [facility] UREA NITROGEN 4 mg/dL (7-24) [facility] CREATININE 0.75 mg/dL (0.60-1.00) [facility] BUN/CREAT RATIO 5.3 RATIO (10.0-20.0) [facility] GLUCOSE 101 mg/dL (70-99) [facility] CALCIUM 8.3 mg/dL (8.4-10.2) [facility] GFR >60 ml/min/1.73m2 (>59) [facility] GFR ( AMER) >60 ml/min/1.73m2 (>59) [facility] GFR INTERPRETATION [facility] --NORMAL KIDNEY FUNCTION OR MILD DISEASE - GFR >OR= 60CHRONIC KIDNEY DISEASE - GFR 15 - 59RENAL FAILURE - GFR <15 Est. GFR calculation based on the MDRDstudy equation, which assumes a steadystate for creatinine. Est. GFR should notbe used for medication dosing. ID Date Data Source [id number] 05/02/2020 05:43:53 PM EDT [facility] Name Value Range Interpretation Code Description Data Apurva rce(s) Supporting Document(s) APTT 82.3 s (22.0-34.3) [facility] ID Date Data Source [id number] 05/02/2020 02:28:07 PM EDT [facility] Name Value Range Interpretation Code Description Data Apurva rce(s) Supporting Document(s) WBC 7.3 10*3/uL (4.1-11.0) [facility] RBC 3.09 10*6/uL (4.00-5.40) [facility] HGB 9.5 g/dL (12.0-16.0) [facility] HCT 29.7 % (36.0-47.0) [facility] MCV 96.1 fL (80.0-95.0) [facility] MCH 30.7 pg (27.0-32.0) [facility] MCHC 31.9 g/dL (32.0-36.0) [facility] RDW 17.4 % (10.5-14.5) [facility] PLT 307 10*3/uL (150-450) [facility] MPV 8.1 fL (7.1-10.7) [facility] ID Date Data Source [id number] 05/02/2020 02:41:58 PM EDT [facility] Name Value Range Interpretation Code Description Data Apurva rce(s) Supporting Document(s) PHOSPHORUS 3.5 mg/dL (2.5-4.5) [facility] ID Date Data Source [id number] 05/02/2020 02:41:58 PM EDT [facility] Name Value Range Interpretation Code Description Data Apurva rce(s) Supporting Document(s) MAGNESIUM 2.2 mg/dL (1.7-2.4) [facility] ID Date Data Source [id number] 05/02/2020 02:41:58 PM EDT [facility] Name Value Range Interpretation Code Description Data Apurva rce(s) Supporting Document(s) SODIUM 148 mmol/L (136-145) [facility] POTASSIUM 4.0 mmol/L (3.6-5.2) [facility] CHLORIDE 110 mmol/L (100-108) [facility] CO2 33 mmol/L (22-31) [facility] ANION GAP 5 mmol/L (7-16) [facility] UREA NITROGEN 3 mg/dL (7-24) [facility] CREATININE 0.72 mg/dL (0.60-1.00) [facility] BUN/CREAT RATIO 4.2 RATIO (10.0-20.0) [facility] GLUCOSE 97 mg/dL (70-99) [facility] CALCIUM 8.3 mg/dL (8.4-10.2) [facility] GFR >60 ml/min/1.73m2 (>59) [facility] GFR ( AMER) >60 ml/min/1.73m2 (>59) [facility] GFR INTERPRETATION [facility] --NORMAL KIDNEY FUNCTION OR MILD DISEASE - GFR >OR= 60CHRONIC KIDNEY DISEASE - GFR 15 - 59RENAL FAILURE - GFR <15 Est. GFR calculation based on the MDRDstudy equation, which assumes a steadystate for creatinine. Est. GFR should notbe used for medication dosing. ID Date Data Source [id number] 05/02/2020 02:45:00 PM EDT [facility] Greg Garrido MA, [place], [place] [address]PATIENT NAME: ALEX JAMESDATE OF : 2REPORT: CONSULTATIONPATIENT NUMBER: [id number] STATUS: :ADDICTION MEDICINE CONSULTDATE OF CONSULTATION: 05/02/2020The patient is a 69-year-old female, [facility] She was reportedly drinking aliter of vodka a day, however[facility] [...] When the patient's mental status improves, this speech writer would be happy to complete an addiction medicine consult. However, at this time, that is not feasible.Please contact addiction medicine consult if there are any furtherquestions at [phone] or directly within the hospital at [email or web address]. Should the referring doctor prefer to have an addiction medicine consult completed with medical doctor, please contact us and we will make those arrangements.Thank you for your consultation referral.DICTATED BY: Greg Garrido MA, ANSONACDictated: 05/02/2020 12:49DT: 05/02/2020 12:54Job #: [id number]: [facility] computer generated reports are notconfirmed or authenticated unless they are signed by the providerElectronically Authenticated and Edited by:GREG GARRIDO On 05/02/2020 02:45 PM EDT Name Value Range Interpretation Code Description Data Apurva rce(s) Supporting Document(s) ID Date Data Source [id number] 05/02/2020 11:53:26 AM EDT [facility] Name Value Range Interpretation Code Description Data Apurva rce(s) Supporting Document(s) APTT 77.4 s (22.0-34.3) [facility] ID Date Data Source [id number] 05/02/2020 08:40:17 AM EDT [facility] Name Value Range Interpretation Code Description Data Apurva rce(s) Supporting Document(s) SODIUM 147 mmol/L (136-145) [facility] POTASSIUM 3.5 mmol/L (3.6-5.2) [facility] CHLORIDE 109 mmol/L (100-108) [facility] CO2 32 mmol/L (22-31) [facility] ANION GAP 6 mmol/L (7-16) [facility] UREA NITROGEN 3 mg/dL (7-24) [facility] CREATININE 0.70 mg/dL (0.60-1.00) [facility] BUN/CREAT RATIO 4.3 RATIO (10.0-20.0) [facility] GLUCOSE 112 mg/dL (70-99) [facility] CALCIUM 8.5 mg/dL (8.4-10.2) [facility] GFR >60 ml/min/1.73m2 (>59) [facility] GFR ( AMER) >60 ml/min/1.73m2 (>59) [facility] GFR INTERPRETATION [facility] --NORMAL KIDNEY FUNCTION OR MILD DISEASE - GFR >OR= 60CHRONIC KIDNEY DISEASE - GFR 15 - 59RENAL FAILURE - GFR <15 Est. GFR calculation based on the MDRDstudy equation, which assumes a steadystate for creatinine. Est. GFR should notbe used for medication dosing. ID Date Data Source [id number] 05/02/2020 08:40:17 AM EDT [facility] Name Value Range Interpretation Code Description Data Apurva rce(s) Supporting Document(s) MAGNESIUM 2.7 mg/dL (1.7-2.4) [facility] ID Date Data Source [id number] 05/02/2020 08:40:17 AM EDT [facility] Name Value Range Interpretation Code Description Data Apurva rce(s) Supporting Document(s) PHOSPHORUS 3.6 mg/dL (2.5-4.5) [facility] ID Date Data Source [id number] 05/02/2020 04:19:18 AM EDT [facility] Name Value Range Interpretation Code Description Data Apurva rce(s) Supporting Document(s) APTT 54.3 s (22.0-34.3) [facility] ID Date Data Source [id number] 05/02/2020 03:03:11 AM EDT [facility] Name Value Range Interpretation Code Description Data Apurva rce(s) Supporting Document(s) CALCIUM IONIZED 4.88 mg/dL (4.64-5.28) [facility] IONIZED CALCIUM NORMALIZED TO PH 7.40 AN D 37 DEGREES C. ID Date Data Source [id number] 05/02/2020 03:02:25 AM EDT [facility] Name Value Range Interpretation Code Description Data Apurva rce(s) Supporting Document(s) PHOSPHORUS 3.7 mg/dL (2.5-4.5) [facility] ID Date Data Source [id number] 05/02/2020 03:02:25 AM EDT [facility] Name Value Range Interpretation Code Description Data Apurva rce(s) Supporting Document(s) MAGNESIUM 1.7 mg/dL (1.7-2.4) [facility] ID Date Data Source [id number] 05/02/2020 03:02:25 AM EDT [facility] Name Value Range Interpretation Code Description Data Apurva rce(s) Supporting Document(s) SODIUM 150 mmol/L (136-145) [facility] POTASSIUM 3.2 mmol/L (3.6-5.2) [facility] CHLORIDE 112 mmol/L (100-108) [facility] CO2 32 mmol/L (22-31) [facility] ANION GAP 6 mmol/L (7-16) [facility] UREA NITROGEN 4 mg/dL (7-24) [facility] CREATININE 0.74 mg/dL (0.60-1.00) [facility] BUN/CREAT RATIO 5.4 RATIO (10.0-20.0) [facility] GLUCOSE 111 mg/dL (70-99) [facility] CALCIUM 8.1 mg/dL (8.4-10.2) [facility] TOTAL PROTEIN 5.4 g/dL (6.4-8.2) [facility] ALBUMIN 2.5 g/dL (3.2-4.5) [facility] GLOBULIN 2.9 g/dL (2.7-4.3) [facility] ALB/GLOB RATIO 0.9 RATIO [facility] ALKALINE PHOSPHATASE 121 U/L (45-117) [facility] BILIRUBIN,TOTAL 0.8 mg/dL (0.0-1.0) [facility] PLEASE NOTE:Total bilirubin results may be falselyelevated in patients taking Eltrombopag. AST (SGOT) 66 U/L (11-39) [facility] ALT (SGPT) 70 U/L (12-78) [facility] GFR >60 ml/min/1.73m2 (>59) [facility] GFR ( AMER) >60 ml/min/1.73m2 (>59) [facility] GFR INTERPRETATION [facility] --NORMAL KIDNEY FUNCTION OR MILD DISEASE - GFR >OR= 60CHRONIC KIDNEY DISEASE - GFR 15 - 59RENAL FAILURE - GFR <15 Est. GFR calculation based on the MDRDstudy equation, which assumes a steadystate for creatinine. Est. GFR should notbe used for medication dosing. ID Date Data Source [id number] 05/02/2020 02:23:43 AM EDT [facility] Name Value Range Interpretation Code Description Data Apurva rce(s) Supporting Document(s) WBC 7.0 10*3/uL (4.1-11.0) [facility] [place] RBC 3.00 10*6/uL (4.00-5.40) [facility] HGB 9.3 g/dL (12.0-16.0) [facility] HCT 28.7 % (36.0-47.0) [facility] MCV 95.4 fL (80.0-95.0) [facility] MCH 30.9 pg (27.0-32.0) [facility] MCHC 32.4 g/dL (32.0-36.0) [facility] RDW 17.3 % (10.5-14.5) [facility] PLT 258 10*3/uL (150-450) [facility] MPV 8.1 fL (7.1-10.7) [facility] ID Date Data Source [id number] 05/01/2020 08:59:55 PM EDT [facility] Name Value Range Interpretation Code Description Data Apurva rce(s) Supporting Document(s) APTT 30.5 s (22.0-34.3) [facility] ID Date Data Source [id number] 05/01/2020 09:09:59 PM EDT [facility] Name Value Range Interpretation Code Description Data [facility] rce(s) Supporting Document(s) SODIUM 149 mmol/L (136-145) [facility] POTASSIUM 3.7 mmol/L (3.6-5.2) [facility] CHLORIDE 113 mmol/L (100-108) [facility] CO2 30 mmol/L (22-31) [facility] ANION GAP 6 mmol/L (7-16) [facility] UREA NITROGEN 3 mg/dL (7-24) [facility] CREATININE 0.77 mg/dL (0.60-1.00) [facility] BUN/CREAT RATIO 3.9 RATIO (10.0-20.0) [facility] GLUCOSE 117 mg/dL (70-99) [facility] CALCIUM 7.8 mg/dL (8.4-10.2) [facility] GFR >60 ml/min/1.73m2 (>59) [facility] GFR ( AMER) >60 ml/min/1.73m2 (>59) [facility] GFR INTERPRETATION [facility] --NORMAL KIDNEY FUNCTION OR MILD DISEASE - GFR >OR= 60CHRONIC KIDNEY DISEASE - GFR 15 - 59RENAL FAILURE - GFR <15 Est. GFR calculation based on the MDRDstudy equation, which assumes a steadystate for creatinine. Est. GFR should notbe used for medication dosing. ID Date Data Source [id number] 05/01/2020 04:30:54 PM EDT [facility] Name Value Range Interpretation Code Description Data Apurva rce(s) Supporting Document(s) PHOSPHORUS 3.5 mg/dL (2.5-4.5) [facility] ID Date Data Source [id number] 05/01/2020 02:50:49 PM EDT [facility] Name Value Range Interpretation Code Description Data [facility] rce(s) Supporting Document(s) MAGNESIUM 2.0 mg/dL (1.7-2.4) [facility] ID Date Data Source [id number] 05/01/2020 02:50:49 PM EDT [facility] Name Value Range Interpretation Code Description Data Apurva rce(s) Supporting Document(s) SODIUM 149 mmol/L (136-145) [facility] POTASSIUM 3.7 mmol/L (3.6-5.2) [facility] CHLORIDE 114 mmol/L (100-108) [facility] CO2 28 mmol/L (22-31) [facility] ANION GAP 7 mmol/L (7-16) [facility] UREA NITROGEN 3 mg/dL (7-24) [facility] CREATININE 0.79 mg/dL (0.60-1.00) [facility] BUN/CREAT RATIO 3.8 RATIO (10.0-20.0) [facility] GLUCOSE 119 mg/dL (70-99) [facility] CALCIUM 7.7 mg/dL (8.4-10.2) [facility] GFR >60 ml/min/1.73m2 (>59) [facility] GFR ( AMER) >60 ml/min/1.73m2 (>59) [facility] GFR INTERPRETATION [facility] --NORMAL KIDNEY FUNCTION OR MILD DISEASE - GFR >OR= 60CHRONIC KIDNEY DISEASE - GFR 15 - 59RENAL FAILURE - GFR <15 Est. GFR calculation based on the MDRDstudy equation, which assumes a steadystate for creatinine. Est. GFR should notbe used for medication dosing. ID Date Data Source [id number] 05/01/2020 02:30:27 PM EDT [facility] Name Value Range Interpretation Code Description Data [facility](s) Supporting Document(s) APTT 22.1 s (22.0-34.3) [facility] ID Date Data Source [id number] 05/01/2020 02:30:27 PM EDT [facility] Name Value Range Interpretation Code Description Data [facility]va rce(s) Supporting Document(s) PT 11.5 s (9.2-11.9) [facility] INR 1.10 [facility] SUGGESTED THERAPEUTIC RANGES USING INR F ORSTABILIZED ANTICOAGULATED PATIENTS:STANDARD DOSE THERAPY INR 2.0-3.0 DVT, PE, PREVENT DVT OR EMBOLISMHIGH DOSE THERAPY INR 2.5-3.5 PREVENT EMBOLISM FROM MECHANICAL HEART VALVE ID Date Data Source [id number] 05/01/2020 01:15:00 PM EDT [facility] al DATE OF EXAM: 05/01/2020US DVT [...] right subclavian vein. Professional interpretation performed at [facility] .End of diagnostic report for accession: [id number] Interpreted: Park Fragaranscribed: 05/01/2020 01:12 PMSigned: 05/01/2020 01:15 PM Park Fraga DO [facility] # [id number] BILL # [id number] Name Value Range Interpretation Code Description Data Apurva rce(s) Supporting Document(s) ID Date Data Source [id number] 05/01/2020 11:20:00 AM EDT [facility] al DATE OF EXAM: 05/01/2020EXAM:Abdomen NG Tube Placement Port CLINICAL INDICATION: NG TUBE PLACEMENT TECHNIQUE: A single coned-down view of the chest and upper abdomen was obtained. COMPARISON: None. IMPRESSION: An enteric tube is visualized with its tip and side-port reaching the expected location of the stomach. Professional interpretation performed at [facility] .End of diagnostic report for accession: [id number] Interpreted: Park Fragaranscribed: 05/01/2020 11:19 AMSigned: 05/01/2020 11:20 AM Park Fraga DO [facility] # [id number] BILL # [id number] Name Value Range Interpretation Code Description Data Apurva rce(s) Supporting Document(s) ID Date Data Source [id number] 05/01/2020 08:19:42 AM EDT [facility] Name Value Range Interpretation Code Description Data Apurva rce(s) Supporting Document(s) PHOSPHORUS 3.5 mg/dL (2.5-4.5) [facility] ID Date Data Source [id number] 05/01/2020 08:19:42 AM EDT [facility] Name Value Range Interpretation Code Description Data Paurva rce(s) Supporting Document(s) MAGNESIUM 2.0 mg/dL (1.7-2.4) [facility] ID Date Data Source [id number] 05/01/2020 08:19:42 AM EDT [facility] Name Value Range Interpretation Code Description Data Apurva rce(s) Supporting Document(s) SODIUM 149 mmol/L (136-145) H [facility] POTASSIUM 3.8 mmol/L (3.6-5.2) [facility] CHLORIDE 113 mmol/L (100-108) [facility] CO2 27 mmol/L (22-31) [facility] ANION GAP 9 mmol/L (7-16) [facility] UREA NITROGEN 3 mg/dL (7-24) L [facility] CREATININE 0.80 mg/dL (0.60-1.00) [facility] BUN/CREAT RATIO 3.8 RATIO (10.0-20.0) L [facility] GLUCOSE 116 mg/dL (70-99) H [facility] CALCIUM 7.7 mg/dL (8.4-10.2) L [facility] GFR >60 ml/min/1.73m2 (>59) [facility] GFR ( AMER) >60 ml/min/1.73m2 (>59) [facility] GFR INTERPRETATION [facility] --NORMAL KIDNEY FUNCTION OR MILD DISEASE - GFR >OR= 60CHRONIC KIDNEY DISEASE - GFR 15 - 59RENAL FAILURE - GFR <15 Est. GFR calculation based on the MDRDstudy equation, which assumes a steadystate for creatinine. Est. GFR should notbe used for medication dosing. ID Date Data Source [id number] 05/01/2020 01:00:28 AM EDT [facility] Name Value Range Interpretation Code Description Data Apurva rce(s) Supporting Document(s) CALCIUM IONIZED 4.76 mg/dL (4.64-5.28) [facility] IONIZED CALCIUM NORMALIZED TO PH 7.40 AN D 37 DEGREES C. ID Date Data Source [id number] 05/01/2020 12:56:28 AM EDT [facility] Name Value Range Interpretation Code Description Data Apurva rce(s) Supporting Document(s) PHOSPHORUS 3.2 mg/dL (2.5-4.5) [facility] ID Date Data Source [id number] 05/01/2020 12:56:28 AM EDT [facility] Name Value Range Interpretation Code Description Data Apurva rce(s) Supporting Document(s) MAGNESIUM 2.1 mg/dL (1.7-2.4) [facility] ID Date Data Source [id number] 05/01/2020 12:56:28 AM EDT [facility] Name Value Range Interpretation Code Description Data Apurva rce(s) Supporting Document(s) SODIUM 148 mmol/L (136-145) H [facility] POTASSIUM 3.5 mmol/L (3.6-5.2) L [facility] CHLORIDE 112 mmol/L (100-108) [facility] CO2 28 mmol/L (22-31) [facility] ANION GAP 8 mmol/L (7-16) [facility] UREA NITROGEN 3 mg/dL (7-24) L [facility] CREATININE 0.75 mg/dL (0.60-1.00) [facility] BUN/CREAT RATIO 4.0 RATIO (10.0-20.0) L [facility] GLUCOSE 119 mg/dL (70-99) H [facility] CALCIUM 7.6 mg/dL (8.4-10.2) L [facility] TOTAL PROTEIN 5.3 g/dL (6.4-8.2) L [facility] ALBUMIN 2.5 g/dL (3.2-4.5) L [facility] GLOBULIN 2.8 g/dL (2.7-4.3) [facility] ALB/GLOB RATIO 0.9 RATIO [facility] ALKALINE PHOSPHATASE 119 U/L (45-117) H [facility] BILIRUBIN,TOTAL 1.0 mg/dL (0.0-1.0) [facility] PLEASE NOTE:Total bilirubin results may be falselyelevated in patients taking Eltrombopag. AST (SGOT) 77 U/L (11-39) H [facility] ALT (SGPT) 84 U/L (12-78) H [facility] GFR >60 ml/min/1.73m2 (>59) [facility] GFR ( AMER) >60 ml/min/1.73m2 (>59) [facility] GFR INTERPRETATION [facility] --NORMAL KIDNEY FUNCTION OR MILD DISEASE - GFR >OR= 60CHRONIC KIDNEY DISEASE - GFR 15 - 59RENAL FAILURE - GFR <15 Est. GFR calculation based on the MDRDstudy equation, which assumes a steadystate for creatinine. Est. GFR should notbe used for medication dosing. ID Date Data Source [id number] 05/01/2020 12:31:49 AM EDT [facility] Name Value Range Interpretation Code Description Data Apurva rce(s) Supporting Document(s) WBC 7.3 10*3/uL (4.1-11.0) [facility] RBC 2.80 10*6/uL (4.00-5.40) L [facility] HGB 8.9 g/dL (12.0-16.0) L [facility] HCT 26.8 % (36.0-47.0) L [facility] MCV 95.4 fL (80.0-95.0) [facility] MCH 31.9 pg (27.0-32.0) [facility] MCHC 33.4 g/dL (32.0-36.0) [facility] RDW 16.9 % (10.5-14.5) H [facility] PLT 195 10*3/uL (150-450) [facility] MPV 9.3 fL (7.1-10.7) [facility] ID Date Data Source [id number] 04/30/2020 06:32:47 PM EDT [facility] Name Value Range Interpretation Code Description Data Apurva rce(s) Supporting Document(s) PHOSPHORUS 3.4 mg/dL (2.5-4.5) [facility] ID Date Data Source [id number] 04/30/2020 06:32:47 PM EDT [facility] Name Value Range Interpretation Code Description Data Apurva rce(s) Supporting Document(s) MAGNESIUM 2.4 mg/dL (1.7-2.4) [facility] ID Date Data Source [id number] 04/30/2020 06:32:47 PM EDT [facility] Name Value Range Interpretation Code Description Data Apurva rce(s) Supporting Document(s) SODIUM 145 mmol/L (136-145) [facility] POTASSIUM 3.8 mmol/L (3.6-5.2) [facility] CHLORIDE 112 mmol/L (100-108) H [facility] CO2 26 mmol/L (22-31) [facility] ANION GAP 7 mmol/L (7-16) [facility] UREA NITROGEN 3 mg/dL (7-24) L [facility] CREATININE 0.72 mg/dL (0.60-1.00) [facility] BUN/CREAT RATIO 4.2 RATIO (10.0-20.0) L [facility] GLUCOSE 126 mg/dL (70-99) H [facility] CALCIUM 7.5 mg/dL (8.4-10.2) L [facility] GFR >60 ml/min/1.73m2 (>59) [facility] GFR ( AMER) >60 ml/min/1.73m2 (>59) [facility] GFR INTERPRETATION [facility] --NORMAL KIDNEY FUNCTION OR MILD DISEASE - GFR >OR= 60CHRONIC KIDNEY DISEASE - GFR 15 - 59RENAL FAILURE - GFR <15 Est. GFR calculation based on the MDRDstudy equation, which assumes a steadystate for creatinine. Est. GFR should notbe used for medication dosing. ID Date Data Source [id number] 04/30/2020 09:38:42 AM EDT [facility] Name Value Range Interpretation Code Description Data Apurva e(s) Supporting Document(s) VANCOMYCIN TROUGH 16.5 ug/mL (10.0-20.0) [facility] ID Date Data Source [id number] 04/30/2020 09:38:42 AM EDT [facility] Name Value Range Interpretation Code Description Data Apurva rce(s) Supporting Document(s) MAGNESIUM 1.7 mg/dL (1.7-2.4) [facility] ID Date Data Source [id number] 04/30/2020 09:38:42 AM EDT [facility] Name Value Range Interpretation Code Description Data Apurva rce(s) Supporting Document(s) PHOSPHORUS 2.9 mg/dL (2.5-4.5) [facility] ID Date Data Source [id number] 04/30/2020 09:38:42 AM EDT [facility] Name Value Range Interpretation Code Description Data Apurva rce(s) Supporting Document(s) SODIUM 146 mmol/L (136-145) H [facility] POTASSIUM 3.3 mmol/L (3.6-5.2) L [facility] CHLORIDE 112 mmol/L (100-108) H [facility] CO2 24 mmol/L (22-31) [facility] ANION GAP 10 mmol/L (7-16) [facility] UREA NITROGEN 3 mg/dL (7-24) L [facility] CREATININE 0.72 mg/dL (0.60-1.00) [facility] BUN/CREAT RATIO 4.2 RATIO (10.0-20.0) L [facility] GLUCOSE 130 mg/dL (70-99) H [facility] CALCIUM 7.2 mg/dL (8.4-10.2) L [facility] GFR >60 ml/min/1.73m2 (>59) [facility] GFR ([facility] AMER) >60 ml/min/1.73m2 (>59) [facility] GFR INTERPRETATION [facility] --NORMAL KIDNEY FUNCTION OR MILD DISEASE - GFR >OR= 60CHRONIC KIDNEY DISEASE - GFR 15 - 59RENAL FAILURE - GFR <15 Est. GFR calculation based on the MDRDstudy equation, which assumes a steadystate for creatinine. Est. GFR should notbe used for medication dosing. ID Date Data Source [id number] 04/30/2020 03:11:02 AM EDT [facility] Name Value Range Interpretation Code Description Data Apurva rce(s) Supporting Document(s) COLOR [facility] APPEARANCE [facility] SPEC GRAV URINE 1.013 (1.003-1.030) [facility] PH URINE 5.0 (5.0-7.5) [facility] LEUK ESTERASE 1+ (NEG) A [facility] NITRITE URINE (NEG) [facility] PROTEIN URINE (NEG) [facility] GLUCOSE URINE (NEG) [facility] KETONE URINE (NEG) [facility] UROBILINOGEN 0.2 mg/dL (0-1.0) [facility] BILIRUBIN URINE (NEG) [facility] BLOOD/HGB URINE 3+ (NEG) [facility] URINE WBC (0-5) [facility] URINE RBC (0-2) [facility] BACTERIA 1+ [HPF] [facility] MUCUS 1+ [HPF] [facility] YEAST 1+ [HPF] [facility] ID Date Data Source [id number] 04/30/2020 08:49:00 AM EDT [facility] [...] bilaterally. X7End of diagnostic report for accession: [id number] Interpreted: Shahzad Perez MDTranscribed: 04/30/2020 08:43 AMSigned: 04/30/2020 08:49 AM Shahzad Perez MD [facility] # [id number] [facility] # [id number] Name Value Range Interpretation Code Description Data Apurva rce(s) Supporting Document(s) ID Date Data Source [id number] 04/30/2020 02:38:46 AM EDT [facility] Name Value Range Interpretation Code Description Data Apurva rce(s) Supporting Document(s) SOURCE [facility] FIO2 60 % [facility] PH 7.39 (7.35-7.45) [facility] PCO2 32 mm[Hg] (32-48) [facility] PO2 95 mm[Hg] (83-108) [facility] O2 SATURATION 96.2 % (95.0-99.0) [facility] BASE DEFICIT 5.3 mmol/L (0.0-2.0) H [facility] HCO3 18.9 mmol/L (21.0-29.0) L [facility] TOTAL CO2 19.8 mmol/L (23.0-32.0) L [facility] BODY TEMPERATURE 98.6 [degF] [facility] ID Date Data Source [id number] 04/30/2020 02:47:45 AM EDT [facility] Name Value Range Interpretation Code Description Data Apurva rce(s) Supporting Document(s) WBC 8.3 10*3/uL (4.1-11.0) [facility] RBC 3.08 10*6/uL (4.00-5.40) L [facility] HGB 9.5 g/dL (12.0-16.0) L [facility] HCT 29.6 % (36.0-47.0) L [facility] MCV 96.0 fL (80.0-95.0) H [facility] MCH 30.9 pg (27.0-32.0) [facility] MCHC 32.1 g/dL (32.0-36.0) [facility] RDW 16.3 % (10.5-14.5) H [facility] PLT 169 10*3/uL (150-450) [facility] MPV 9.3 fL (7.1-10.7) [facility] ID Date Data Source [id number] 04/30/2020 02:39:46 AM EDT [facility] Name Value Range Interpretation Code Description Data Apurva rce(s) Supporting Document(s) SODIUM 146 mmol/L (136-145) H [facility] POTASSIUM 3.8 mmol/L (3.6-5.2) [facility] CHLORIDE 113 mmol/L (100-108) H [facility] CO2 25 mmol/L (22-31) [facility] ANION GAP 8 mmol/L (7-16) [facility] UREA NITROGEN 3 mg/dL (7-24) L [facility] CREATININE 0.68 mg/dL (0.60-1.00) [facility] BUN/CREAT RATIO 4.4 RATIO (10.0-20.0) L [facility] GLUCOSE 116 mg/dL (70-99) H [facility] CALCIUM 7.2 mg/dL (8.4-10.2) L [facility] GFR >60 ml/min/1.73m2 (>59) [facility] GFR ( AMER) >60 ml/min/1.73m2 (>59) [facility] GFR INTERPRETATION [facility] --NORMAL KIDNEY FUNCTION OR MILD DISEASE - GFR >OR= 60CHRONIC KIDNEY DISEASE - GFR 15 - 59RENAL FAILURE - GFR <15 Est. GFR calculation based on the MDRDstudy equation, which assumes a steadystate for creatinine. Est. GFR should notbe used for medication dosing. ID Date Data Source [id number] 04/29/2020 09:04:58 PM EDT [facility] Name Value Range Interpretation Code Description Data Apurva rce(s) Supporting Document(s) SODIUM 144 mmol/L (136-145) [facility] POTASSIUM 3.6 mmol/L (3.6-5.2) [facility] CHLORIDE 111 mmol/L (100-108) H [facility] CO2 24 mmol/L (22-31) [facility] ANION GAP 9 mmol/L (7-16) [facility] UREA NITROGEN 3 mg/dL (7-24) L [facility] CREATININE 0.56 mg/dL (0.60-1.00) L [facility] BUN/CREAT RATIO 5.4 RATIO (10.0-20.0) L [facility] GLUCOSE 126 mg/dL (70-99) H [facility] CALCIUM 7.3 mg/dL (8.4-10.2) L [facility] GFR >60 ml/min/1.73m2 (>59) [facility] GFR ( AMER) >60 ml/min/1.73m2 (>59) [facility] GFR INTERPRETATION [facility] --NORMAL KIDNEY FUNCTION OR MILD DISEASE - GFR >OR= 60CHRONIC KIDNEY DISEASE - GFR 15 - 59RENAL FAILURE - GFR <15 Est. GFR calculation based on the MDRDstudy equation, which assumes a steadystate for creatinine. Est. GFR should notbe used for medication dosing. ID Date Data Source [id number] 04/29/2020 09:04:58 PM EDT [facility] Name Value Range Interpretation Code Description Data Apurva rce(s) Supporting Document(s) MAGNESIUM 1.8 mg/dL (1.7-2.4) [facility] ID Date Data Source [id number] 04/29/2020 09:04:58 PM EDT [facility] Name Value Range Interpretation Code Description Data Apurva rce(s) Supporting Document(s) PHOSPHORUS 2.8 mg/dL (2.5-4.5) [facility] ID Date Data Source [id number] 04/30/2020 10:05:15 AM EDT [facility] Name Value Range Interpretation Code Description Data Apurva rce(s) Supporting Document(s) SPECIMEN DESCRIPTION [facility] STAPH SCREEN RESULTS (ONEGSA) [facility] COMMENT [facility] GENE TO DETECT STAPH AUREUS. (2) RT-P CR WAS PERFORMED FOR THE mecA AND [employer] GENES TO DETECT METHICILLIN RESISTANCE IN STAPH AUREUS. ID Date Data Source [id number] 04/29/2020 02:23:18 PM EDT [facility] Name Value Range Interpretation Code Description Data Apurva rce(s) Supporting Document(s) PHOSPHORUS 3.3 mg/dL (2.5-4.5) [facility] ID Date Data Source [id number] 04/29/2020 02:23:18 PM EDT [facility] Name Value Range Interpretation Code Description Data Apurva rce(s) Supporting Document(s) MAGNESIUM 1.8 mg/dL (1.7-2.4) [facility] ID Date Data Source [id number] 04/29/2020 02:23:18 PM EDT [facility] Name Value Range Interpretation Code Description Data Apurva rce(s) Supporting Document(s) SODIUM 144 mmol/L (136-145) [facility] POTASSIUM 3.8 mmol/L (3.6-5.2) [facility] CHLORIDE 111 mmol/L (100-108) H [facility] CO2 25 mmol/L (22-31) [facility] ANION GAP 8 mmol/L (7-16) [facility] UREA NITROGEN 3 mg/dL (7-24) L [facility] CREATININE 0.48 mg/dL (0.60-1.00) L [facility] BUN/CREAT RATIO 6.3 RATIO (10.0-20.0) L [facility] GLUCOSE 134 mg/dL (70-99) H [facility] CALCIUM 6.9 mg/dL (8.4-10.2) L [facility] GFR >60 ml/min/1.73m2 (>59) [facility] GFR ( AMER) >60 ml/min/1.73m2 (>59) [facility] GFR INTERPRETATION [facility] --NORMAL KIDNEY FUNCTION OR MILD DISEASE - GFR >OR= 60CHRONIC KIDNEY DISEASE - GFR 15 - 59RENAL FAILURE - GFR <15 Est. GFR calculation based on the MDRDstudy equation, which assumes a steadystate for creatinine. Est. GFR should notbe used for medication dosing. ID Date Data Source [id number] 04/29/2020 09:40:14 AM EDT [facility] Name Value Range Interpretation Code Description Data Apurva rce(s) Supporting Document(s) WBC 5.5 10*3/uL (4.1-11.0) [facility] RBC 2.96 10*6/uL (4.00-5.40) L [facility] HGB 9.2 g/dL (12.0-16.0) L [facility] HCT 28.2 % (36.0-47.0) L [facility] MCV 95.1 fL (80.0-95.0) H [facility] MCH 31.0 pg (27.0-32.0) [facility] MCHC 32.6 g/dL (32.0-36.0) [facility] RDW 16.1 % (10.5-14.5) H [facility] PLT 106 10*3/uL (150-450) L [facility] MPV 9.5 fL (7.1-10.7) [facility] ID Date Data Source [id number] 04/29/2020 09:04:20 AM EDT [facility] Name Value Range Interpretation Code Description Data Apurva rce(s) Supporting Document(s) VANCOMYCIN TROUGH 16.3 ug/mL (10.0-20.0) [facility] ID Date Data Source [id number] 04/29/2020 09:04:20 AM EDT [facility] Name Value Range Interpretation Code Description Data Apurva rce(s) Supporting Document(s) PHOSPHORUS 1.9 mg/dL (2.5-4.5) L [facility] ID Date Data Source [id number] 04/29/2020 09:04:20 AM EDT [facility] Name Value Range Interpretation Code Description Data Apurva rce(s) Supporting Document(s) MAGNESIUM 2.0 mg/dL (1.7-2.4) [facility] ID Date Data Source [id number] 04/29/2020 09:04:20 AM EDT [facility] Name Value Range Interpretation Code Description Data Apurva rce(s) Supporting Document(s) SODIUM 143 mmol/L (136-145) [facility] POTASSIUM 4.1 mmol/L (3.6-5.2) [facility] CHLORIDE 110 mmol/L (100-108) H [facility] CO2 25 mmol/L (22-31) [facility] ANION GAP 8 mmol/L (7-16) [facility] UREA NITROGEN 3 mg/dL (7-24) L [facility] CREATININE 0.52 mg/dL (0.60-1.00) L [facility] BUN/CREAT RATIO 5.8 RATIO (10.0-20.0) L [facility] GLUCOSE 122 mg/dL (70-99) H [facility] CALCIUM 7.5 mg/dL (8.4-10.2) L [facility] GFR >60 ml/min/1.73m2 (>59) [facility] GFR ( AMER) >60 ml/min/1.73m2 (>59) [facility] GFR INTERPRETATION [facility] --NORMAL KIDNEY FUNCTION OR MILD DISEASE - GFR >OR= 60CHRONIC KIDNEY DISEASE - GFR 15 - 59RENAL FAILURE - GFR <15 Est. GFR calculation based on the MDRDstudy equation, which assumes a steadystate for creatinine. Est. GFR should notbe used for medication dosing. ID Date Data Source [id number] 04/29/2020 03:20:10 AM EDT [facility] Name Value Range Interpretation Code Description Data Apurva rce(s) Supporting Document(s) MAGNESIUM 2.0 mg/dL (1.7-2.4) [facility] ID Date Data Source [id number] 04/29/2020 03:20:10 AM EDT [facility] Name Value Range Interpretation Code Description Data Apurva rce(s) Supporting Document(s) PHOSPHORUS 1.9 mg/dL (2.5-4.5) L [facility] ID Date Data Source [id number] 04/29/2020 03:20:10 AM EDT [facility] Name Value Range Interpretation Code Description Data Apurva rce(s) Supporting Document(s) SODIUM 143 mmol/L (136-145) [facility] POTASSIUM 3.4 mmol/L (3.6-5.2) L [facility] CHLORIDE 110 mmol/L (100-108) H [facility] CO2 24 mmol/L (22-31) [facility] ANION GAP 9 mmol/L (7-16) [facility] UREA NITROGEN 3 mg/dL (7-24) L [facility] CREATININE 0.51 mg/dL (0.60-1.00) L [facility] BUN/CREAT RATIO 5.9 RATIO (10.0-20.0) L [facility] GLUCOSE 119 mg/dL (70-99) H [facility] CALCIUM 7.1 mg/dL (8.4-10.2) L [facility] TOTAL PROTEIN 5.2 g/dL (6.4-8.2) L [facility] ALBUMIN 2.5 g/dL (3.2-4.5) L [facility] GLOBULIN 2.7 g/dL (2.7-4.3) [facility] ALB/GLOB RATIO 0.9 RATIO [facility] ALKALINE PHOSPHATASE 104 U/L (45-117) [facility] BILIRUBIN,TOTAL 1.0 mg/dL (0.0-1.0) [facility] PLEASE NOTE:Total bilirubin results may be falselyelevated in patients taking Eltrombopag. AST (SGOT) 127 U/L (11-39) H [facility] ALT (SGPT) 110 U/L (12-78) H [facility] GFR >60 ml/min/1.73m2 (>59) [facility] GFR ( AMER) >60 ml/min/1.73m2 (>59) [facility] GFR INTERPRETATION [facility] --NORMAL KIDNEY FUNCTION OR MILD DISEASE - GFR >OR= 60CHRONIC KIDNEY DISEASE - GFR 15 - 59RENAL FAILURE - GFR <15 Est. GFR calculation based on the MDRDstudy equation, which assumes a steadystate for creatinine. Est. GFR should notbe used for medication dosing. ID Date Data Source [id number] 04/29/2020 03:17:55 AM EDT [facility] Name Value Range Interpretation Code Description Data Apurva rce(s) Supporting Document(s) CALCIUM IONIZED 4.56 mg/dL (4.64-5.28) L [facility] IONIZED CALCIUM NORMALIZED TO PH 7.40 AN D 37 DEGREES C. ID Date Data Source [id number] 04/29/2020 02:41:12 AM EDT [facility] Name Value Range Interpretation Code Description Data Apurva rce(s) Supporting Document(s) WBC 5.6 10*3/uL (4.1-11.0) [facility] [place] RBC 2.87 10*6/uL (4.00-5.40) L [facility] HGB 8.9 g/dL (12.0-16.0) L [facility] HCT 27.4 % (36.0-47.0) L [facility] MCV 95.5 fL (80.0-95.0) H [facility] MCH 31.1 pg (27.0-32.0) [facility] MCHC 32.6 g/dL (32.0-36.0) [facility] RDW 15.7 % (10.5-14.5) [facility] PLT 100 10*3/uL (150-450) L [facility] MPV 9.9 fL (7.1-10.7) [facility] ID Date Data Source [id number] 04/28/2020 08:31:17 PM EDT [facility] Name Value Range Interpretation Code Description Data Apurva rce(s) Supporting Document(s) PHOSPHORUS 1.9 mg/dL (2.5-4.5) L [facility] ID Date Data Source [id number] 04/28/2020 08:31:17 PM EDT [facility] Name Value Range Interpretation Code Description Data Apurva rce(s) Supporting Document(s) MAGNESIUM 2.1 mg/dL (1.7-2.4) [facility] ID Date Data Source [id number] 04/28/2020 08:31:17 PM EDT [facility] Name Value Range Interpretation Code Description Data Apurva rce(s) Supporting Document(s) SODIUM 143 mmol/L (136-145) [facility] POTASSIUM 3.8 mmol/L (3.6-5.2) [facility] CHLORIDE 111 mmol/L (100-108) H [facility] CO2 26 mmol/L (22-31) [facility] ANION GAP 6 mmol/L (7-16) L [facility] UREA NITROGEN 3 mg/dL (7-24) L [facility] CREATININE 0.54 mg/dL (0.60-1.00) L [facility] BUN/CREAT RATIO 5.6 RATIO (10.0-20.0) L [facility] GLUCOSE 130 mg/dL (70-99) H [facility] CALCIUM 7.1 mg/dL (8.4-10.2) L [facility] GFR >60 ml/min/1.73m2 (>59) [facility] GFR ( AMER) >60 ml/min/1.73m2 (>59) [facility] GFR INTERPRETATION [facility] --NORMAL KIDNEY FUNCTION OR MILD DISEASE - GFR >OR= 60CHRONIC KIDNEY DISEASE - GFR 15 - 59RENAL FAILURE - GFR <15 Est. GFR calculation based on the MDRDstudy equation, which assumes a steadystate for creatinine. Est. GFR should notbe used for medication dosing. ID Date Data Source [id number] 04/28/2020 03:44:21 PM EDT [facility] Name Value Range Interpretation Code Description Data Apurva rce(s) Supporting Document(s) WBC 6.1 10*3/uL (4.1-11.0) [facility] [place] RBC 2.85 10*6/uL (4.00-5.40) L [facility] HGB 9.1 g/dL (12.0-16.0) L [facility] HCT 27.3 % (36.0-47.0) L [facility] MCV 95.7 fL (80.0-95.0) [facility] MCH 31.8 pg (27.0-32.0) [facility] MCHC 33.2 g/dL (32.0-36.0) [facility] RDW 15.8 % (10.5-14.5) [facility] PLT 91 10*3/uL (150-450) L [facility] MPV 9.7 fL (7.1-10.7) [facility] ID Date Data Source [id number] 04/28/2020 02:32:50 PM EDT [facility] Name Value Range Interpretation Code Description Data Apurva rce(s) Supporting Document(s) PHOSPHORUS 2.1 mg/dL (2.5-4.5) L [facility] ID Date Data Source [id number] 04/28/2020 02:32:50 PM EDT [facility] Name Value Range Interpretation Code Description Data Apurva rce(s) Supporting Document(s) SODIUM 142 mmol/L (136-145) [facility] POTASSIUM 4.0 mmol/L (3.6-5.2) [facility] CHLORIDE 110 mmol/L (100-108) [facility] CO2 25 mmol/L (22-31) [facility] ANION GAP 7 mmol/L (7-16) [facility] UREA NITROGEN 4 mg/dL (7-24) L [facility] CREATININE 0.52 mg/dL (0.60-1.00) L [facility] BUN/CREAT RATIO 7.7 RATIO (10.0-20.0) L [facility] GLUCOSE 129 mg/dL (70-99) H [facility] CALCIUM 7.2 mg/dL (8.4-10.2) L [facility] GFR >60 ml/min/1.73m2 (>59) [facility] GFR ( AMER) >60 ml/min/1.73m2 (>59) [facility] GFR INTERPRETATION [facility] --NORMAL KIDNEY FUNCTION OR MILD DISEASE - GFR >OR= 60CHRONIC KIDNEY DISEASE - GFR 15 - 59RENAL FAILURE - GFR <15 Est. GFR calculation based on the MDRDstudy equation, which assumes a steadystate for creatinine. Est. GFR should notbe used for medication dosing. ID Date Data Source [id number] 04/28/2020 02:32:50 PM EDT [facility] Name Value Range Interpretation Code Description Data Apurva rce(s) Supporting Document(s) MAGNESIUM 2.1 mg/dL (1.7-2.4) [facility] ID Date Data Source [id number] 04/28/2020 02:11:20 PM EDT [facility] Name Value Range Interpretation Code Description Data Apurva rce(s) Supporting Document(s) SOURCE [facility] FIO2 [facility] VENOUS PH 7.31 (7.33-7.43) L [facility] VENOUS PCO2 47 mm[Hg] (38-50) [facility] PO2 37 mm[Hg] (30-50) [facility] LAMAR BASE DEFICIT 3.5 mmol/L (0.0-2.0) H [facility] VENOUS HCO3 23.0 mmol/L (23-27) [facility] TOTAL CO2 24.4 mmol/L (24-28) [facility] BODY TEMPERATURE 98.6 [degF] [facility] ID Date Data Source [id number] 04/28/2020 02:41:12 AM EDT [facility] Name Value Range Interpretation Code Description Data Apurva rce(s) Supporting Document(s) MAGNESIUM 2.7 mg/dL (1.7-2.4) H [facility] ID Date Data Source [id number] 04/28/2020 02:41:12 AM EDT [facility] Name Value Range Interpretation Code Description Data Apurva rce(s) Supporting Document(s) PHOSPHORUS 1.0 mg/dL (2.5-4.5) L [facility] ID Date Data Source [id number] 04/28/2020 02:41:12 AM EDT [facility] Name Value Range Interpretation Code Description Data Apurva rce(s) Supporting Document(s) SODIUM 142 mmol/L (136-145) [facility] POTASSIUM 3.6 mmol/L (3.6-5.2) [facility] CHLORIDE 110 mmol/L (100-108) H [facility] CO2 24 mmol/L (22-31) [facility] ANION GAP 8 mmol/L (7-16) [facility] UREA NITROGEN 4 mg/dL (7-24) L [facility] CREATININE 0.58 mg/dL (0.60-1.00) L [facility] BUN/CREAT RATIO 6.9 RATIO (10.0-20.0) L [facility] GLUCOSE 128 mg/dL (70-99) H [facility] CALCIUM 7.2 mg/dL (8.4-10.2) L [facility] TOTAL PROTEIN 5.4 g/dL (6.4-8.2) L [facility] ALBUMIN 2.8 g/dL (3.2-4.5) L [facility] GLOBULIN 2.6 g/dL (2.7-4.3) L [facility] ALB/GLOB RATIO 1.1 RATIO [facility] ALKALINE PHOSPHATASE 97 U/L (45-117) [facility] BILIRUBIN,TOTAL 1.2 mg/dL (0.0-1.0) [facility] PLEASE NOTE:Total bilirubin results may be falselyelevated in patients taking Eltrombopag. AST (SGOT) 139 U/L (11-39) H [facility] ALT (SGPT) 105 U/L (12-78) H [facility] GFR >60 ml/min/1.73m2 (>59) [facility] GFR ( AMER) >60 ml/min/1.73m2 (>59) [facility] GFR INTERPRETATION [facility] --NORMAL KIDNEY FUNCTION OR MILD DISEASE - GFR >OR= 60CHRONIC KIDNEY DISEASE - GFR 15 - 59RENAL FAILURE - GFR <15 Est. GFR calculation based on the MDRDstudy equation, which assumes a steadystate for creatinine. Est. GFR should notbe used for medication dosing. ID Date Data Source [id number] 04/28/2020 02:39:52 AM EDT [facility] Name Value Range Interpretation Code Description Data Apurva rce(s) Supporting Document(s) CALCIUM IONIZED 4.72 mg/dL (4.64-5.28) [facility] IONIZED CALCIUM NORMALIZED TO PH 7.40 AN D 37 DEGREES C. ID Date Data Source [id number] 04/28/2020 02:12:48 AM EDT [facility] Name Value Range Interpretation Code Description Data Apurva rce(s) Supporting Document(s) WBC 5.5 10*3/uL (4.1-11.0) [facility] [place] RBC 2.98 10*6/uL (4.00-5.40) L [facility] HGB 9.2 g/dL (12.0-16.0) L [facility] HCT 28.0 % (36.0-47.0) L [facility] MCV 93.8 fL (80.0-95.0) [facility] MCH 30.8 pg (27.0-32.0) [facility] MCHC 32.9 g/dL (32.0-36.0) [facility] RDW 15.5 % (10.5-14.5) H [facility] PLT 84 10*3/uL (150-450) L [facility] MPV 9.0 fL (7.1-10.7) [facility] ID Date Data Source [id number] 04/28/2020 08:50:00 AM EDT [facility] DATE OF EXAM: 04/28/2020CHEST RADIOGRAPH [...] follow-up is recommended. Professional interpretation performed at [facility] .End of diagnostic report for accession: [id number] Interpreted: Park Fragascribed: 04/28/2020 08:49 AMSigned: 04/28/2020 08:50 AM Park Fraga DO [facility] # [id number] BILL # [id number] Name Value Range Interpretation Code Description Data Apurva rce(s) Supporting Document(s) ID Date Data Source [id number] 04/27/2020 05:15:50 PM EDT [facility] Name Value Range Interpretation Code Description Data Apurva rce(s) Supporting Document(s) SODIUM 143 mmol/L (136-145) [facility] POTASSIUM 4.6 mmol/L (3.6-5.2) [facility] CHLORIDE 111 mmol/L (100-108) H [facility] CO2 22 mmol/L (22-31) [facility] ANION GAP 10 mmol/L (7-16) [facility] UREA NITROGEN 3 mg/dL (7-24) L [facility] CREATININE 0.61 mg/dL (0.60-1.00) [facility] BUN/CREAT RATIO 4.9 RATIO (10.0-20.0) L [facility] GLUCOSE 118 mg/dL (70-99) H [facility] CALCIUM 6.7 mg/dL (8.4-10.2) L [facility] GFR >60 ml/min/1.73m2 (>59) [facility] GFR ( AMER) >60 ml/min/1.73m2 (>59) [facility] GFR INTERPRETATION [facility] --NORMAL KIDNEY FUNCTION OR MILD DISEASE - GFR >OR= 60CHRONIC KIDNEY DISEASE - GFR 15 - 59RENAL FAILURE - GFR <15 Est. GFR calculation based on the MDRDstudy equation, which assumes a steadystate for creatinine. Est. GFR should notbe used for medication dosing. ID Date Data Source [id number] 04/27/2020 03:40:13 PM EDT [facility] Name Value Range Interpretation Code Description Data Apurva rce(s) Supporting Document(s) CALCIUM IONIZED 4.56 mg/dL (4.64-5.28) L [facility] IONIZED CALCIUM NORMALIZED TO PH 7.40 AN D 37 DEGREES C. ID Date Data Source [id number] 04/27/2020 03:23:53 PM EDT [facility] Name Value Range Interpretation Code Description Data Apurva rce(s) Supporting Document(s) PHOSPHORUS 3.3 mg/dL (2.5-4.5) [facility] ID Date Data Source [id number] 04/27/2020 03:23:53 PM EDT [facility] Name Value Range Interpretation Code Description Data Apurva rce(s) Supporting Document(s) MAGNESIUM 1.4 mg/dL (1.7-2.4) L [facility] ID Date Data Source [id number] 04/27/2020 01:50:36 AM EDT [facility] Name Value Range Interpretation Code Description Data Apurva rce(s) Supporting Document(s) CALCIUM IONIZED 4.40 mg/dL (4.64-5.28) L [facility] IONIZED CALCIUM NORMALIZED TO PH 7.40 AN D 37 DEGREES C. ID Date Data Source [id number] 04/27/2020 01:48:57 AM EDT [facility] Name Value Range Interpretation Code Description Data Apurva rce(s) Supporting Document(s) PHOSPHORUS 1.0 mg/dL (2.5-4.5) L [facility] ID Date Data Source [id number] 04/27/2020 01:48:57 AM EDT [facility] Name Value Range Interpretation Code Description Data Apurva rce(s) Supporting Document(s) MAGNESIUM 1.6 mg/dL (1.7-2.4) L [facility] ID Date Data Source [id number] 04/27/2020 01:48:56 AM EDT [facility] Name Value Range Interpretation Code Description Data Apurva rce(s) Supporting Document(s) SODIUM 141 mmol/L (136-145) [facility] POTASSIUM 2.7 mmol/L (3.6-5.2) LL [facility] RESULT(S) CALLED TO AND READ BACK CEASAR Bill ICU 0147 04/27/20 [place] [address] CHLORIDE 107 mmol/L (100-108) [facility] CO2 20 mmol/L (22-31) L [facility] ANION GAP 14 mmol/L (7-16) [facility] UREA NITROGEN 5 mg/dL (7-24) L [facility] CREATININE 0.74 mg/dL (0.60-1.00) [facility] BUN/CREAT RATIO 6.8 RATIO (10.0-20.0) L [facility] GLUCOSE 128 mg/dL (70-99) H [facility] CALCIUM 7.0 mg/dL (8.4-10.2) L [facility] TOTAL PROTEIN 5.7 g/dL (6.4-8.2) L [facility] ALBUMIN 3.0 g/dL (3.2-4.5) L [facility] GLOBULIN 2.7 g/dL (2.7-4.3) [facility] ALB/GLOB RATIO 1.1 RATIO [facility] ALKALINE PHOSPHATASE 99 U/L (45-117) [facility] BILIRUBIN,TOTAL 1.7 mg/dL (0.0-1.0) H [facility] PLEASE NOTE:Total bilirubin results may be falselyelevated in patients taking Eltrombopag. AST (SGOT) 126 U/L (11-39) H [facility] ALT (SGPT) 101 U/L (12-78) H [facility] GFR >60 ml/min/1.73m2 (>59) [facility] GFR ( AMER) >60 ml/min/1.73m2 (>59) [facility] GFR INTERPRETATION [facility] --NORMAL KIDNEY FUNCTION OR MILD DISEASE - GFR >OR= 60CHRONIC KIDNEY DISEASE - GFR 15 - 59RENAL FAILURE - GFR <15 Est. GFR calculation based on the MDRDstudy equation, which assumes a steadystate for creatinine. Est. GFR should notbe used for medication dosing. ID Date Data Source [id number] 04/27/2020 01:33:55 AM EDT [facility] Name Value Range Interpretation Code Description Data Apurva rce(s) Supporting Document(s) PT 11.4 s (9.2-11.9) [facility] INR 1.09 [facility] SUGGESTED THERAPEUTIC RANGES USING INR F ORSTABILIZED ANTICOAGULATED PATIENTS:STANDARD DOSE THERAPY INR 2.0-3.0 DVT, PE, PREVENT DVT OR EMBOLISMHIGH DOSE THERAPY INR 2.5-3.5 PREVENT EMBOLISM FROM MECHANICAL HEART VALVE ID Date Data Source [id number] 04/27/2020 01:05:49 AM EDT [facility] Name Value Range Interpretation Code Description Data Apurva rce(s) Supporting Document(s) WBC 6.3 10*3/uL (4.1-11.0) [facility] [place] RBC 2.72 10*6/uL (4.00-5.40) L [facility] HGB 8.5 g/dL (12.0-16.0) L [facility] HCT 25.4 % (36.0-47.0) L [facility] MCV 93.4 fL (80.0-95.0) [facility] MCH 31.1 pg (27.0-32.0) [facility] MCHC 33.2 g/dL (32.0-36.0) [facility] RDW 15.5 % (10.5-14.5) H [facility] PLT 98 10*3/uL (150-450) L [facility] MPV 8.7 fL (7.1-10.7) [facility] ID Date Data Source [id number] 04/26/2020 08:12:36 PM EDT [facility] Name Value Range Interpretation Code Description Data Apurva rce(s) Supporting Document(s) CHOLESTEROL @ 232 mg/dL (0-200) H [facility] TRIGLYCERIDE @ 196 mg/dL (30-200) [facility] HDL CHOLESTEROL @ 52 mg/dL (>40) [facility] PER NCEP ATP III GUIDELINES:RESULTS LOWE R THAN 40 MG/DL ARE SUGGESTIVEOF INCREASED RISK FOR CORONARY ARTERYDISEASE. RESULTS > OR = TO 60 MG/DL ARECONSIDERED A NEGATIVE RISK FACTOR. CHOL/HDL RATIO 4.5 RATIO [facility] INTERPRETATION OF CHOL-HDL RATIO CHD RISK FEMALE MALEVERY HIGH >8.3 >14.3HIGH 5.6- 8.3 6.7- 14.3AVERAGE 3.7- 5.6 4.0- 6.7BELOW AVERAGE 2.5- 3.7 2.7- 4.0PROTECTED <2.5 <2.7 LDL CHOL (CALC) 141 mg/dL (<130) H [facility] PER NCEP ATP III GUIDELINES: OPTIMAL < 100 NEAR OPTIMAL 100 - 129BORDERLINE HIGH 130 - 159 HIGH 160 - 189 VERY HIGH > 189 ID Date Data Source [id number] 04/26/2020 06:19:55 PM EDT [facility] Name Value Range Interpretation Code Description Data Apurva rce(s) Supporting Document(s) WBC 6.6 10*3/uL (4.1-11.0) [facility] [place] RBC 2.89 10*6/uL (4.00-5.40) L [facility] HGB 8.9 g/dL (12.0-16.0) L [facility] HCT 27.3 % (36.0-47.0) L [facility] MCV 94.6 fL (80.0-95.0) [facility] MCH 30.9 pg (27.0-32.0) [facility] MCHC 32.7 g/dL (32.0-36.0) [facility] RDW 15.5 % (10.5-14.5) H [facility] PLT 113 10*3/uL (150-450) L [facility] MPV 8.4 fL (7.1-10.7) [facility] RE[facility] ID Date Data Source [id number] 04/26/2020 03:42:00 PM EDT [facility] DATE OF EXAM: 04/26/2020LIVER ELASTOGRAP [...] or = 11.6kPa Professional interpretation performed by [facility] End of diagnostic report for accession: [id number] Interpreted: Issa Perez MDTranscribed: 04/26/2020 03:41 PMSigned: 04/26/2020 03:42 PM Issa Perez MD [facility] # [id number] [facility] # [id number] Name Value Range Interpretation Code Description Data Apurva rce(s) Supporting Document(s) ID Date Data Source [id number] 04/26/2020 02:58:00 PM EDT [facility] [...] cooperation during exam Professional interpretation performed by [facility] at [facility] End of diagnostic report for accession: [id number] Interpreted: Issa Perez MDTranscribed: 04/26/2020 02:56 PMSigned: 04/26/2020 02:58 PM Issa Perez MD [facility] # [id number] [facility] # [id number] Name Value Range Interpretation Code Description Data Apurva rc(s) Supporting Document(s) ID Date Data Source [id number] 04/26/2020 11:26:36 AM EDT [facility] Name Value Range Interpretation Code Description Data Ap[facility]va [facility](s) Supporting Document(s) WBC 4.9 10*3/uL (4.1-11.0) [facility] [place] RBC 2.50 10*6/uL (4.00-5.40) L [facility] HGB 7.9 g/dL (12.0-16.0) L [facility] HCT 24.1 % (36.0-47.0) L [facility] MCV 96.5 fL (80.0-95.0) H [facility] MCH 31.6 pg (27.0-32.0) [facility] MCHC 32.7 g/dL (32.0-36.0) [facility] RDW 15.8 % (10.5-14.5) H [facility] PLT 103 10*3/uL (150-450) L [facility] MPV 9.0 fL (7.1-10.7) [facility] ID Date Data Source [id number] 04/26/2020 10:32:10 AM EDT [facility] Name Value Range Interpretation Code Description Data Apurva rce(s) Supporting Document(s) LIPASE 915 U/L (65-230) H [facility] ID Date Data Source [id number] 04/26/2020 05:33:12 AM EDT [facility] Name Value Range Interpretation Code Description Data Apurva rce(s) Supporting Document(s) URINE WBC (0-5) [facility] URINE RBC (0-2) [facility] EPITHELIAL CELLS 1+ [HPF] [facility] BACTERIA 4+ [HPF] [facility] HYALINE CASTS [facility] ID Date Data Source [id number] 04/26/2020 05:24:51 AM EDT [facility] Name Value Range Interpretation Code Description Data Apurva rce(s) Supporting Document(s) PHOSPHORUS 1.7 mg/dL (2.5-4.5) L [facility] ID Date Data Source [id number] 04/26/2020 05:24:51 AM EDT [facility] Name Value Range Interpretation Code Description Data Apurva rce(s) Supporting Document(s) MAGNESIUM 1.9 mg/dL (1.7-2.4) [facility] ID Date Data Source [id number] 04/26/2020 05:11:39 AM EDT [facility] Name Value Range Interpretation Code Description Data Apurva rce(s) Supporting Document(s) COLOR [facility] APPEARANCE [facility] SPEC GRAV URINE 1.033 (1.003-1.030) H [facility] PH URINE 5.5 (5.0-7.5) [facility] LEUK ESTERASE (NEG) [facility] NITRITE URINE (NEG) [facility] PROTEIN URINE 1+ (NEG) A [facility] GLUCOSE URINE (NEG) [facility] KETONE URINE 3+ (NEG) A [facility] [place] UROBILINOGEN 0.2 mg/dL (0-1.0) [facility] [place] BILIRUBIN URINE (NEG) [facility] BLOOD/HGB URINE 1+ (NEG) A [facility] ID Date Data Source [id number] 04/26/2020 05:03:14 AM EDT [facility] Name Value Range Interpretation Code Description Data Apurva rce(s) Supporting Document(s) LACTIC ACID 0.9 mmol/L (0.4-2.0) [facility] [place] ID Date Data Source [id number] 04/26/2020 04:56:53 AM EDT [facility] Name Value Range Interpretation Code Description Data Apurva rce(s) Supporting Document(s) SOURCE [facility] FIO2 [facility] VENOUS PH 7.11 (7.33-7.43) LL [facility] RESULT(S) CALLED TO AND READ BACK KIMBERLY Ritter AT [facility] ON 04/26/2020 AT 0458 BY [id number] VENOUS PCO2 22 mm[Hg] (38-50) L [facility] VENOUS PO2 97 mm[Hg] (30-50) H [facility] VENOUS O2 SAT 95.6 % (60-85) H [facility] LAMAR BASE DEFICIT 21.0 mmol/L (0.0-2.0) H [facility] VENOUS HCO3 6.7 mmol/L (23-27) L [facility] [place] VENOUS TOTAL CO2 7.4 mmol/L (24-28) L [facility] BODY TEMPERATURE 98.6 [degF] [facility] ID Date Data Source [id number] 04/25/2020 10:58:00 PM EDT [facility] DATE OF EXAM: 04/25/2020CHEST CLINICAL S TATEMENT: Alcohol withdrawal. TECHNIQUE: Portable AP view of the chest. COMPARISON: None. FINDINGS: The lungs are clear. The cardiomediastinal structures are within normal limits. The visualized osseous structures appear unremarkable. IMPRESSION: No evidence of acute cardiopulmonary pathology. Professional interpretation performed at [facility] .End of diagnostic report for accession: [id number] Interpreted: Jeyson Potts MDTranscribed: 04/25/2020 10:58 PMSigned: 04/25/2020 10:58 PM Jeyson Potts MD [facility] # [id number] BILL # [id number] Name Value Range Interpretation Code Description Data Apurva rce(s) Supporting Document(s) ID Date Data Source [id number] 04/25/2020 10:39:[address] [facility] Name Value Range Interpretation Code Description Data Apurva rce(s) Supporting Document(s) MUSE EKG PDF encoded Sondra da silva NCQZUv8oTtZGAwCif9JzTeQmFXHaCE5hkzk1P1X9sYEwO9OrkHIyu5riT2UoA5AsIYSfIZCOZL3YmZVg jb2 [file] [id number]+8+JT9d8Qt468VGy1Grjfo28A i1pa9ZriXi0wf7hhF5flfU74eZcUxFLkdZ3LjOF9xnu00YGneph3XtOQgl9Z715DOMCpi+UThmjVqSlL Obu1Wev1vdN306xH6kusNENX8LzRB3+0A9Xm7wlyect6U4Wq2oFZfB5LdnkFioykUiCdoG367t1AE6KQ 7Z+hgc208syr2WuAINydYasDmm1UIh9TuyOHqn1bgQ qajVcbSpVsfZplrDQTsDI3+uy4z6pDnIUDscieQ68l5oR/59rQ7ctqh9mvehc7VowhcV04g26tWpC9IE XimgCHrhgUgM7Arr+fbYB2fE7OgN7u0s02W112BBiBtQ16okJvF0s0ySxUgbVguwThjl7XO3Ol5cu93X puTYXu9ue3Wihp210mLKTgBodgrqQt8KeWaHPuQ7VZ wCIkRm0ubu8XMA+2KzfzzSweIbxXZ/zNorjS/wbJ6krih/qOlIfqfhrGd2FwuCrTygI61eKvKLfkBFgj GWdktYS+y7ou79W8zvpStM1+W9YVpsdic1Hh61rISmjW3ztrNaphY9Wsc4YREzDFxfYpyWgsuakFvEXk CoyjaZtgI9XmKp3Nl+zr1dVqSUoWSKkH3KkGPz+6Pq G69740o+6PufiDOH5USRhnslGHSaUB46nOaCYl0ma5IqpDof1FeHOaLsRnLfDdePbmDhdoRQ3I2Hcgi7 HypARRMN8jin6obMGsPiBNO5W6JbIQNAfBMfEc+mBd/tgeHcQLXgu6+YIYnsdHL3E1Vd7P9SyelQUg9j 436A/brUe7gYtZvnhm3WsI8msyfF/c/itOkKTOuAFZ iNJH6xOwQIedQ7JfnSuZlVoeltjApTNyR3JC6tixFMiBRNpw0TY77b+gy+J23tbjlR8xgeGb4eh3NB7v 5IEls60Hm72ng6X9FJi82dSQXtX8VtCS7MpV33gPhfNzk2+kpP/ahzPrK+tUDzsvOB6CLTzV0agI/Tabby 4kVgu++5fO3kpgUKQrhxAE8vZ9pG4aoUlvmDFanB9I yXQzlM0lh5Nho7pzJHREe5mPpuMw3u4tRWlMvozgQiwW4drT33he5lL4ZB1q5RxLpVNg9WeB7evsXaOy +8gBw1hHA6UdFpddH8QVzk8m71PwRYv37drIFj60nf/H9kEjZYCcD89NiJCUAu+yg1E8tDG/lj6H6a0s Mob83dc2JWF2RLKDOXZVWpuryruxKD5JhldxTiQBF7 Yt+qNhAm2H/instructor apparel manufacture/p1Qllj7aBK/95FwfKWePz/kby3ONsZ4Se/L3nlL1lIY+VWrvRPYKqf4yUr+h43jzt I96xwr9GQhVG7l+jSRSh3tzKRhU1JD2dr7ey0/hSq+09AB9fdmUfNq7IxqmStzv708mZUA4y03rFef1D 1B+cLs6cd7loyfcPouOFUna3KSoDPfKn5skSur3ZEr SABb9XX3Vi5Nu4EcLxPBnpvBkK2txmM3CCiOyHedywvnIn7lR+B7OyuimcaOgveNi/hBAixvIdy7BZ2b FSK5dyrA6jqsDJF6zcPT9zr8VXkqljkGbK4ysokTtQUvuby4lcdNqJrlEhcLuPkdb2xsAvGGOkwN1L73 cv+oGnmPVhIdbqJeBB3MB9Autr9lALRJ3fLlN4aFI1 VMEzhSyLsLCwHGjkuyaiTPrm6oet7rbp8rh1p4nXs2cy2Wz5vcMLj4Ukb3UHs5rVQOyJhaD1o06ib3ms xD1qpTVckq2NmnnkQRD//uCsmxXmkNJydra+VtwbOq1Pl8DZodOjmz5QarvlbvPtZlQsx8TiP0hcfI+N K7U7Z0oWc76qeCIt/XN3ql8l3uT5kvUult5Pcj6RJ2 W0bHnlQ9ucLPuiBFocX6yL5P9kj6v7uJgUoeFZz4nb3kQLSOr2aDdS3k+N//t/+SL2/4oYOWm7pO64g3 QsZwYN6RX3nTDuPBwRs9SEHlVmBwKGgiiWaYPFXht9AXfg/K9D2g1X8imBLjYtRFNSDXMPpFlMbV98o7 Ek9zNacCzVQgSMvWUxNCWiTtyNIzS+ngEYCMUigQqU ZlX5V2tQHYMPByRMmyS91mEouKSdVGmA8TfTHff1SUWVz7eglL2pITFCJlfVI93CdCvNuAJnDQdrb24W VIB4+W2ws37W0uJqlQUCWX4gOJJpw9IAdWk3FxbTKQR6t1w2aGDnSW2paHdw5PgPKDAOdMtPsaG6BeUF pgUgeTOpjUwaQdLNrBKihnVdRgVdRtSQdNiHTQhDQi [file] 6c3QztE/QN+b45g15Ag/uDA/uDQ/bHMd6I4/7g 1kCSosy7S1i0z3c/4Gp2R9uEuVy3eb4rF+/8XIHdu/NzBXbtbq/l4U+kfsC7dgxprQ/dcFSqoqvB3W/8 scemf7N6HnRc8aT/MtxCm5x8edFd/KpXxfmVV+vZojZNwdEggDjU538xq+D8ooYS3OQyVu+ceuNX/n/j Z6LdxyrVDh0krFl5xf2FnwZKsqgetPwgGd7r0ptQn5 R+JEy5Yd3G/Bllxwf5SQ4gwl/tL0Sv6Iiqq2nRNs+2fWf1nyQn7+ei/Ri/8vZj/WeiwvDhrRR5Vgt54D Gg7nWn2YW5Or5WszOthR/Q5/kcuyLne/K3Ye3IJ/QL/9+IZyP+A/2B/kJ/M96Y8sxwSpU2pvfB9k1kx2 P9D9cvAK7lYtNM/HD6Obgmhh7Y+EjqX3DxbMPmq4kR Nd/vrAf6C/9Kuw4xVO5X+tqU290hUY3WdaGa45YD+elk7Qol6HH2Oj2Y9Ui5Nr6/dr3+PnX+KsLQH/z/ ZU91vjI4/alW9opyA3NB3W2jD6z3ib/bnam6jsp5+M0Ls+i1dcd16EC4Ui0QobF/oF/Q5/ox0Va3QMLz Yoe0nz4C1Clib9h1vp8dR/dher9X4T8L0U3J3W/O0a Hv0Of+8Wk3cmSYV9OV+cS2ll1Pe2S//B6cA+PJa6hb8gLpPLjmAb8h2HofE/XK3xY84Du9/TvFryIM/c y9TZyymefXuu1qkI3e/AAndt2ywreas2brRH1anq6lbyeP+cuFFszpL5iBOL5aK3Jy9f7k+OKTq6nD4/ jIPP77vA+PH86V+9Vc1vaIPPc7LCtLfmF/EI/W65RW 5ygXyj1Qy+b2ihlnsizyrtK2v1ApdeoCwmWBw8hj/zvXJ+fO/bKJ/cG5J+LJ/d+0X5MdTIeBw9M/Wf87 veXZrr67cu6eremwqUfn+GE46cgq1mTwS06+Iyyg92G0ayFX6Mrc45bot2/Slw6cWjew98wI347azrrU gdpr6lr5P5+b8/c4Qj0zu9in2Pg5VEux5bvEeh3gzJ Ox+o/xSVuftOtkezUPG8+0ejZ+aQMyxiiEnkinFwx6l80e+I3rNxhTe9Y0Min6z3MkFs0OPu7x0mXO4y il/YJVq50v++OBzcLGJy3/dn/T28WF0nydp0l7qX0hhGDpwyl7guHhy/HzNnf50NwnclQYZ+wei0Hzw/ Eyug0oDp+kW5ltmV+txw7FY+uxV/HkftkquX+0Sq5v TPkbyCnjo8ea/WbCk0wN+T41oV9O/INYv0SpIPspsvwOW1Cr4W/Dv779WVO06Wyl+lG2lm0jpceZN/xK 64l0mpNH+or/g4mwWB1rRnjepoikyCXQB/wI98pcpCwn23ohZVeq2V29E+I/7KP04QN/+l6ieH3mJL3L vxFdpBx80Nl+vdT2J0g2vc+pmaPG6jGwMD0OrcH/od /QH+gP9Nl/V8/zsWvk/IB8HmB3swdt0MaHEHA7PxyzGdqn15YD1Da3P/u0z9XE3i19pp+ukXxyjeSTC/ xqjVxvX+SLCahc5Fbwz4ZMWofOmfrevd/QN+umk1bFtG2cFKi+c1pjsUeGGHRHa1oa5E/oF/Qb+g39gf 1Lh8BT07Gx9Xnmyw8OCY7HXbiq/t8QT/KrhfWrtVDe bzj4dnJGo+X3/tju01Q8P9o9HtME+xW/HirDpUvH1m/UtrF+tXC+zAn6jsq8j3ik20/Nz4vk9OWzwe1C aJT95oc642eG+527Ciuh3LXr90cZMdvUOeoH3Akua4zuje3HS/T/PH+8na2DtqU89CU+0vl29a+T63Xr YHw+qB8qmGaUqXA+xIbkOk5iAdwWSxoylD24oA7B1J 7j+H8W/b1rb6jeYrxMoK0aZqgc95u280Y4gPCclfc5no8s5rufAddy8GOgl4c8862pzt9loZs4N6c668 v3e9F/70L8C+ld5XmDa6H/0F/ok1/eav38czA1kw0Hc+vPu+R+gx82w5KRhn/d3l9k8uw3o/Lgmqrf3d fg6y2bsN365sdGqm/aGm4w53od/NWVPs/wpHVwC65k 39g1+eTW+zwzxC3cpEe4ny5G+uzW+uuvsI4C3Kz/tXX+lmdu82OUa6kOFyIT6ppZcktp/Sfq3igdw1B8 ytc5t/QfbS73JjavnAH8WRZe5NKhiAqUzfU0fgW3+3wWHujlI62G2Ffzzt8d8Hol5X70ucamLu22Yhn9 9B63aKuZ4r7I53ziqFo/8jwbv/KyGL/yMhq/8npo4s 8ezvrU+avqYat/k0h0v9S4crRBMfo0Pw0uTt2+s14E9qj/vFdk77qmGic/5eEB/YB+ZvvR+Su1K52/2h 2V4jrjjE0oa2Wa3kdN7vjB6Ml7TO+/tX6l/eN8fvfLW9Re9VyqC/Qd+j75oK780Y+1fqV+PXK/bI+cj/ ZY0G/oN/QH+gP9hT6/j/bM/d89C/QV+ug8f88Ee/FK /BwuIEsqkeVJ0Qk1X/GgvOJXqh/xK9Wb+FWEob/B86IjZX+8sw91VQXy7KbhR/Qd+g34fS1vs66aO/QL +mF6pp6jTHbhCndJpzzV4z6nrlE5s4zm8q1b75G8W3p1Jt9Y7c3Ph0P+1vqNtt2L8bCSg0/oN/QH+gP9 dF1357N/HvTfg/570H8P+u9B/r98rbIpnL+0T94/2m dAP3M+PTPnU+3TGbz1qZoP2+850B/oL/O3bsdfI+VB/Rm3tlm4jVVoV8+u/+Y94u2l4cPwh/a11ffLtB W+YPE2ohwhAJ0Zd8J+PcLQb+jzvOjW+Shayan+GsfvygO52o8a6oEHZqoMtGPtdGj472NxmKkugGfQ/Qd8V j1i3sboEyB83fKed/qOIUMoAlhnyBi4k0/JYPl1r50 z0H8F+neN8+ngrJcxKD8Wd8OtyJ51Gq9Yc7jAp9o7Ev8gi+WF03Vlg3pf805KW1gt/DM/2z8f0N/oD/Q X+dkdZwZYxxcy2ce2l4faa/QN+kj5M73u9Rp/p9gc1jw27a3s8lD+zhi6pxwhuo3j8hfaik2y3P1zfWn J5l1Pu89G5iiRcdlqUyoO01R3igC0y9VWa+yvnbEr9 ROjF+J+v8uP1rdJodgCCkuIO/Sudlj/EpnZc/Hr+qc5ptI2c6H6LYB8Wn5z4N2/224b27kD987bz8rPH aA96zrQvqi8ZxGNT3VAOotFcgha9ygzleESF3riitVB0r2KzQX4z19dm46aDJacxWkl1doYlpav751en pci5efHdGh8mbd3+4y1oRz0A/0B/fStK4ZVkfiDhGP d+Z31nn89hncgC3z/CrCHf/P+zjH+NULQz+xf3Xz7Uj5G/xNlPX3M+WeNC5JmWjDili3GnwRdcv9rnoe Z6G8C+VdGK/SSJwB1I/gS1CC5G+y3p2pH3tD8oIA6Jb/kFuDM5eejR6l240V3IbMFkkvtnTX+WAPW20d /N/6/tAP67Ir6T/oJ/QL+eC2ce5Zl/ldOlyx2HSv6W tqrX8e09uxA++Pxq/0rX2MX+kb8xi/fnTG3y8/j/5v37/z65mh2D42rX/pe/YYv/Jd8ukAXOO4/2r80f krD2/8f+P/B/qD/95ul8xn1zm3WB/S9/epqhMs2XT19zZac4T50Pd6CesT+AfSnVmuq/CzlAOJIl8O2+ IQ4B5b18f/3NwvO/ckbzF+5vGLg1y+36p5AN6in8G7 cMWvivStIPzazxW/ijD0A/oB/YR+Qr+dM2Uy5NbmQ13O2nsNx5786B+MR/xK+Re/VonCP4sLdG+pDm/N 6qspzonumw5zry80By16BvwcriFx4N4kktA9z9dtD4I5I9+/Tkub3WLfzHA/yey6OPCjncz9js7Ohflw oG/Qd+yIAb0sxesa78fzO6lQ5b89k7S0zrhMnlpl+f NtG/rkz7fh/gahd7qk06BwxW/vgp6eHdih5ZS/pquc1pMF4+0QFlm5h3ex8f+u9Hn/9/BDjX6W3j9aUz /YT7VSxv9MBpMnxBMxS7/yMPT5/Xt7nn++I88/35Hf+9zwny0fzW90ar4iptawk1p/9exbfF1hqzKfxr ntl0deD6L4wG4P6DHj28uBoy/sjymR8ss55yw9W1DV nDv0uv6P9iltU/Hea/pzaq6Ts0I1kIqwb3RbOVKQ6w6uTpw4M6+kZAEh1P/14gHXHcx99t3wV1IsK/Hn eYZr/CryYOcZVD/Ev4yTDosIeiT/TYVqqesK192c+NWdeV/yzrzffVd+71+lv785653cvm1acB7/tX6l /K+9e5JPj36TS3Fb0Q/oF/QL+r41vk8Qp9A/yGful9 7p9zQwqv3DW/sMF+uoSj0u1x6e06R48Nt0B/oJ/YR+Qb+v68oC9qAVdP9043S+L/U2h3KL9mh9F8+b3Z Jzaw9WkG/Ki/yC12S1Y+B5MZ3OrP/Ke1Deg/OruLam3UWtk/r36n5bAHp/B+/35v2Ue/N+yr0V+lx/vj lh9t9h17CW81eiFzm/96/2BzVm+lk0dPt2B/oF/MALTESE+ [file] NSAwIFIKCj4+KgA5WGS9dIFvUnesHIb3KfpQEIVEI5O= ID Date Data Source [id number] 04/26/2020 10:43:17 AM EDT [facility] Name Value Range Interpretation Code Description Data Apurva rce(s) Supporting Document(s) HEMOGLOBIN A1C @ 5.1 % (4.0-6.0) [facility] Performed using Siemens [place] immunoassa y.Care must be taken when interpreting [id number] in patients with a hemoglobin variantor decreased erythrocyte lifespan. Values 5.7 - 6.4% suggest prediabetes.Values >=6.5% are diagnostic for diabetes.REFERENCE: DIABETES CARE 2018: 41(S13-S27).PERFORMED AT [address] [facility] [id number] EST AVERAGE GLUCOSE 100 mg/dL [facility] ID Date Data Source [id number] 04/26/2020 04:25:54 AM EDT [facility] SPEC EXP DATE 04/28/2020PATI ENT ABO/Rh A POSITIVEANTIBODY SCREEN NEGATIVETESTING SITE PERFORMED AT [address] [facility] [id number] Name Value Range Interpretation Code Description Data Apurva rce(s) Supporting Document(s) ID Date Data Source [id number] 04/25/2020 11:30:28 PM EDT [facility] Name Value Range Interpretation Code Description Data Apurva rce(s) Supporting Document(s) TROPONIN I <0.05 ng/mL (<0.05) [facility] [place] Less than 0.05: Myocardial injury unlike lyGreater than or equal to 0.05: Highly suggestive of myocardial injuryCorrelation with rise and/or fall ofserial troponins, clinical symptomsand ECG changes is necessary. ID Date Data Source [id number] 04/25/2020 11:30:28 PM EDT [facility] Name Value Range Interpretation Code Description Data Apurva rce(s) Supporting Document(s) SODIUM 134 mmol/L (136-145) L [facility] POTASSIUM 3.7 mmol/L (3.6-5.2) [facility] CHLORIDE 101 mmol/L (100-108) [facility] CO2 8 mmol/L (22-31) LL [facility] RESULT(S) CALLED TO AND READ BACK NAEEM GIL AT [facility] ON 04/25/2020 [place] [address] [place] [id number] ANION GAP 25 mmol/L (7-16) [facility] RESULTS REVIEWED UREA NITROGEN 10 mg/dL (7-24) [facility] CREATININE 0.86 mg/dL (0.60-1.00) [facility] BUN/CREAT RATIO 11.6 RATIO (10.0-20.0) [facility] GLUCOSE 106 mg/dL (70-99) [facility] CALCIUM 8.1 mg/dL (8.4-10.2) [facility] GFR >60 ml/min/1.73m2 (>59) [facility] GFR ( AMER) >60 ml/min/1.73m2 (>59) [facility] GFR INTERPRETATION [facility] [place] --NORMAL KIDNEY FUNCTION OR MILD DISEASE - GFR >OR= 60CHRONIC KIDNEY DISEASE - GFR 15 - 59RENAL FAILURE - GFR <15 Est. GFR calculation based on the MDRDstudy equation, which assumes a steadystate for creatinine. Est. GFR should notbe used for medication dosing. ID Date Data Source [id number] 04/25/2020 11:30:28 PM EDT [facility] Name Value Range Interpretation Code Description Data Apurva rce(s) Supporting Document(s) TOTAL PROTEIN 7.5 g/dL (6.4-8.2) [facility] ALBUMIN 3.8 g/dL (3.2-4.5) [facility] GLOBULIN 3.7 g/dL (2.7-4.3) [facility] ALB/GLOB RATIO 1.0 RATIO [facility] BILIRUBIN,TOTAL 1.5 mg/dL (0.0-1.0) [facility] PLEASE NOTE:Total bilirubin results may be falselyelevated in patients taking Eltrombopag. BILIRUBIN,CONJUGATED 0.9 mg/dL (0.0-0.3) [facility] BILIRUBIN,UNCONJ. 0.6 mg/dL (0.0-0.7) [facility] ALKALINE PHOSPHATASE 125 U/L (45-117) [facility] AST (SGOT) 201 U/L (11-39) [facility] ALT (SGPT) 142 U/L (12-78) [facility] ID Date Data Source [id number] 04/25/2020 11:30:28 PM EDT [facility] Name Value Range Interpretation Code Description Data Apurva rce(s) Supporting Document(s) LIPASE 852 U/L (65-230) [facility] ID Date Data Source [id number] 04/25/2020 11:06:55 PM EDT [facility] Name Value Range Interpretation Code Description Data Apurva rce(s) Supporting Document(s) PT 10.9 s (9.2-11.9) [facility] PERFORMED AT [address] [facility] [address] INR 1.04 [facility] SUGGESTED THERAPEUTIC RANGES USING INR F ORSTABILIZED ANTICOAGULATED PATIENTS:STANDARD DOSE THERAPY INR 2.0-3.0 DVT, PE, PREVENT DVT OR EMBOLISMHIGH DOSE THERAPY INR 2.5-3.5 PREVENT EMBOLISM FROM MECHANICAL HEART VALVE ID Date Data Source [id number] 04/25/2020 10:57:27 PM EDT [facility] Name Value Range Interpretation Code Description Data Apurva rce(s) Supporting Document(s) WBC 6.1 10*3/uL (4.1-11.0) [facility] [place] RBC 3.33 10*6/uL (4.00-5.40) [facility] HGB 10.5 g/dL (12.0-16.0) [facility] HCT 31.9 % (36.0-47.0) [facility] MCV 96.0 fL (80.0-95.0) [facility] MCH 31.7 pg (27.0-32.0) [facility] MCHC 33.0 g/dL (32.0-36.0) [facility] RDW 15.4 % (10.5-14.5) [facility] PLT 148 10*3/uL (150-450) [facility] MPV 8.5 fL (7.1-10.7) [facility] NEUT % 80.6 % (35.0-75.0) [facility] LYMPH % 12.8 % (16.0-52.0) [facility] MONO % 6.0 % (0.0-8.0) [facility] EOS % 0.1 % (0.0-5.0) [facility] BASO % 0.5 % (0.0-4.0) [facility] NEUT # 4.9 10*3/uL (1.8-7.7) [facility] LYMPH # 0.8 10*3/uL (1.2-4.8) [facility] MONO # 0.4 10*3/uL (0.0-0.8) [facility] Eosinophils [#/volume] in Blood by Automated count 0.0 10*3/uL (0.0-0 .5) [facility] BASO # 0.0 10*3/uL (0.0-0.2) [facility] Procedure Social History Code Duration Value Status Description Data Source(s ) Smoking 06/20/2021 12:00:00 AM EDT Unknown if ever smoked comp leted Unknown if ever smoked [facility] ([facility]) Smoking 06/08/2021 12:00:00 AM EDT Current Smoker completed Curre nt Smoker eCW1 ([facility]) Smoking 06/08/2021 12:00:00 AM EDT Current Smoker completed Curre nt Smoker eCW1 ([facility]) Smoking 06/08/2021 12:00:00 AM EDT Current Smoker completed Curre nt Smoker eCW1 ([facility]) Smoking 06/05/2021 12:00:00 AM EDT Current Smoker completed Curre nt Smoker eCW1 ([facility]) Smoking 05/15/2021 12:00:00 AM EDT Current Smoker completed Curre nt Smoker eCW1 ([facility]) Smoking 05/04/2021 12:00:00 AM EDT Current Smoker completed Curre nt Smoker eCW1 ([facility]) Smoking 05/04/2021 12:00:00 AM EDT Current Smoker completed Curre nt Smoker eCW1 ([facility]) Smoking 05/04/2021 12:00:00 AM EDT Current Smoker completed Curre nt Smoker eCW1 ([facility]) Smoking 05/04/2021 12:00:00 AM EDT Current Smoker completed Curre nt Smoker eCW1 ([facility]) Smoking 04/12/2021 12:00:00 AM EDT Current Smoker completed Curre nt Smoker eCW1 ([facility]) Smoking 04/12/2021 12:00:00 AM EDT Current Smoker completed Curre nt Smoker eCW1 ([facility]) Smoking 04/05/2021 12:00:00 AM EDT Unknown if ever smoked comp leted Unknown if ever smoked [facility] ([facility]) Smoking 03/07/2021 12:00:00 AM EDT Unknown if ever smoked comp leted Unknown if ever smoked [facility] ([facility]) Smoking 01/16/2021 12:00:00 AM EDT Unknown if ever smoked comp leted Unknown if ever smoked [facility] ([facility]) Smoking 01/09/2021 12:00:00 AM EDT Unknown if ever smoked comp leted Unknown if ever smoked [facility] ([facility]) Smoking 01/01/2021 12:00:00 AM EDT Current Smoker completed Curre nt Smoker eCW1 ([facility]) Smoking 01/01/2021 12:00:00 AM EDT Current Smoker completed Curre nt Smoker eCW1 ([facility]) Smoking 01/01/2021 12:00:00 AM EDT Current Smoker completed Curre nt Smoker eCW1 ([facility]) Smoking 01/01/2021 12:00:00 AM EDT Current Smoker completed Curre nt Smoker eCW1 ([facility]) Smoking 01/01/2021 12:00:00 AM EDT Current Smoker completed Curre nt Smoker eCW1 ([facility]) Smoking 12/26/2020 12:00:00 AM EDT Unknown if ever smoked comp leted Unknown if ever smoked [facility] ([facility]) Smoking 12/19/2020 12:00:00 AM EDT Unknown if ever smoked comp leted Unknown if ever smoked [facility] ([facility]) Smoking 12/12/2020 12:00:00 AM EDT Unknown if ever smoked comp leted Unknown if ever smoked [facility] ([facility]) Smoking 11/21/2020 12:00:00 AM EDT Unknown if ever smoked comp leted Unknown if ever smoked [facility] ([facility]) Smoking 11/14/2020 12:00:00 AM EDT Unknown if ever smoked comp leted Unknown if ever smoked [facility] ([facility]) Smoking 10/19/2020 12:00:00 AM EST Unknown if ever smoked comp leted Unknown if ever smoked [facility] ([facility]) Smoking 10/17/2020 12:00:00 AM EST Unknown if ever smoked comp leted Unknown if ever smoked [facility] ([facility]) Smoking 10/02/2020 12:00:00 AM EST Current Smoker completed Curre nt Smoker eCW1 ([facility]) Smoking 10/02/2020 12:00:00 AM EST Current Smoker completed Curre nt Smoker eCW1 ([facility]) Smoking 10/02/2020 12:00:00 AM EST Current Smoker completed Curre nt Smoker eCW1 ([facility]) Smoking 10/02/2020 12:00:00 AM EST Current Smoker completed Curre nt Smoker eCW1 ([facility]) Smoking 10/02/2020 12:00:00 AM EST Current Smoker completed Curre nt Smoker eCW1 ([facility]) Smoking 10/02/2020 12:00:00 AM EST Current Smoker completed Curre nt Smoker eCW1 ([facility]) Smoking 09/27/2020 12:00:00 AM EST Unknown if ever smoked comp leted Unknown if ever smoked [facility] ([facility]) Smoking 09/05/2020 12:00:00 AM EST Unknown if ever smoked comp leted Unknown if ever smoked [facility] ([facility]) Smoking 08/30/2020 12:00:00 AM EST Current Smoker completed Curre nt Smoker eCW1 ([facility]) Smoking 08/30/2020 12:00:00 AM EST Current Smoker completed Curre nt Smoker eCW1 ([facility]) Smoking 08/30/2020 12:00:00 AM EST Current Smoker completed Curre nt Smoker eCW1 ([facility]) Smoking 08/30/2020 12:00:00 AM EST Current Smoker completed Curre nt Smoker eCW1 ([facility]) Smoking 08/30/2020 12:00:00 AM EST Current Smoker completed Curre nt Smoker eCW1 ([facility]) Smoking 08/22/2020 12:00:00 AM EST Unknown if ever smoked comp leted Unknown if ever smoked [facility] ([facility]) Smoking 07/28/2020 12:00:00 AM EST Unknown if ever smoked comp leted Unknown if ever smoked [facility] ([facility]) Smoking 07/25/2020 12:00:00 AM EST Unknown if ever smoked comp leted Unknown if ever smoked [facility] ([facility]) Smoking 07/11/2020 12:00:00 AM EST Current Smoker completed Curre nt Smoker eCW1 ([facility]) Smoking 07/11/2020 12:00:00 AM EST Current Smoker completed Curre nt Smoker eCW1 ([facility]) Smoking 07/04/2020 12:00:00 AM EST Unknown if ever smoked comp leted Unknown if ever smoked [facility] ([facility]) Smoking 06/20/2020 12:00:00 AM EDT Unknown if ever smoked comp leted Unknown if ever smoked [facility] ([facility]) Smoking 06/06/2020 12:00:00 AM EDT Unknown if ever smoked comp leted Unknown if ever smoked [facility] ([facility]) Smoking 04/26/2020 08:03:00 AM EDT Daily Smoker completed Daily [facility] Smoking 04/26/2020 12:00:00 AM EDT Unknown if ever smoked comp leted Unknown if ever smoked [facility] ([facility]) Vital Signs ID Date Data Source UNK Name Value Range Interpretation Code Description Data Source(s) Respiratory rate 18 /min 18 /min eCW1 ([facility]) Body weight 156 [lb_av] 156 [lb_av] eCW1 ([facility]) Body weight 70.76 kg 70.76 kg eCW1 ([facility]) Body height [in_i] eCW1 ([facility]) Body mass index (BMI) [Ratio] 28.08 kg/m2 28.08 kg/m2 eCW1 ([facility]) Heart rate 116 /min 116 /min [facility]CW[facility] Body temperature 97.8 [degF] 97.8 [degF] eCW1 ( [facility]) Systolic blood pressure 132 mm[Hg] 132 mm[Hg] e CW1 ([facility]) Diastolic blood pressure 78 mm[Hg] 78 mm[Hg] eCW1 ([facility]) Body height 0.00 in Normal (applies to non-numeric resu lts) 0.00 in [facility] ([facility]) Body weight Measured 0.00 lbs Normal (applies to n on-numeric results) 0.00 lbs [facility] ([facility]) Body mass index (BMI) [Ratio] 0.00 kg/m2 No rmal (applies to non-numeric results) 0.00 kg/m2 [facility] ([facility]) Systolic blood pressure 0 mm[Hg] Normal (applies t o non-numeric results) 0 mm[Hg] [facility] ([facility]) Diastolic blood pressure 0 mm[Hg] Normal (applies to non-numeric results) 0 mm[Hg] [facility] ([facility]) Heart rate 107 /min 107 /min eCW1 ([facility] Respiratory rate 18 /min 18 /min eCW1 ([facility]) Body temperature 95.1 [degF] 95.1 [degF] eCW1 ( [facility]) Systolic blood pressure 132 mm[Hg] 132 mm[Hg] e CW1 ([facility]) Diastolic blood pressure 82 mm[Hg] 82 mm[Hg] eCW1 ([facility]) Body weight 162 [lb_av] 162 [lb_av] eCW1 ([facility]) Body height [in_i] eCW1 ([facility]) Body mass index (BMI) [Ratio] 29.15 kg/m2 29.15 kg/m2 eCW1 ([facility]) Body mass index (BMI) [Ratio] 0.00 kg/m2 No rmal (applies to non-numeric results) 0.00 kg/m2 [facility] ([facility]) Body height 0.00 in Normal (applies to non-numeric resu lts) 0.00 in [facility] ([facility]) Body weight Measured 0.00 lbs Normal (applies to n on-numeric results) 0.00 lbs [facility] ([facility]) Systolic blood pressure 0 mm[Hg] Normal (applies t o non-numeric results) 0 mm[Hg] [facility] ([facility]) Diastolic blood pressure 0 mm[Hg] Normal (applies to non-numeric results) 0 mm[Hg] [facility] ([facility]) Body height 0.00 in Normal (applies to non-numeric resu lts) 0.00 in [facility] ([facility]) Body weight Measured 0.00 lbs Normal (applies to n on-numeric results) 0.00 lbs [facility] ([facility]) Body mass index (BMI) [Ratio] 0.00 kg/m2 No rmal (applies to non-numeric results) 0.00 kg/m2 [facility] ([facility]) Systolic blood pressure 0 mm[Hg] Normal (applies t o non-numeric results) 0 mm[Hg] [facility] ([facility]) Diastolic blood pressure 0 mm[Hg] Normal (applies to non-numeric results) 0 mm[Hg] [facility] ([facility]) Body height 0.00 in Normal (applies to non-numeric resu lts) 0.00 in [facility] ([facility]) Body weight Measured 0.00 lbs Normal (applies to n on-numeric results) 0.00 lbs [facility] Body mass index (BMI) [Ratio] 0.00 kg/m2 No rmal (applies to non-numeric results) 0.00 kg/m2 [facility] ([facility]) Systolic blood pressure 0 mm[Hg] Normal (applies t o non-numeric results) 0 mm[Hg] [facility] ([facility]) Diastolic blood pressure 0 mm[Hg] Normal (applies to non-numeric results) 0 mm[Hg] [facility] ([facility]) Body weight 157 [lb_av] 157 [lb_av] eCW1 ([facility]) Body height [in_i] eCW1 ([facility]) Body mass index (BMI) [Ratio] 28.25 kg/m2 28.25 kg/m2 W1 ([facility]) Heart rate 102 /min 102 /min W1 ([facility]) Respiratory rate 18 /min 18 /min W1 ([facility]) Body temperature 96.8 [degF] 96.8 [degF] eCW1 ( [facility]) Systolic blood pressure 148 mm[Hg] 148 mm[Hg] e CW1 ([facility]) Diastolic blood pressure 72 mm[Hg] 72 mm[Hg] eCW1 ([facility]) Body height 0.00 in Normal (applies to non-numeric resu lts) 0.00 in [facility] ([facility]) Body weight Measured 0.00 lbs Normal (applies to n on-numeric results) 0.00 lbs [facility]) Body mass index (BMI) [Ratio] 0.00 kg/m2 No rmal (applies to non-numeric results) 0.00 kg/m2 [facility] ([facility]) Systolic blood pressure 0 mm[Hg] Normal (applies t o non-numeric results) 0 mm[Hg] [facility] ([facility]) Diastolic blood pressure 0 mm[Hg] Normal (applies to non-numeric results) 0 mm[Hg] [facility] ([facility]) Body weight 155 [lb_av] 155 [lb_av] eCW1 ([facility]) Body height [in_i] eCW1 ([facility]) Body mass index (BMI) [Ratio] 27.90 kg/m2 27.90 kg/m2 eCW1 ([facility]) Heart rate 97 /min 97 /min W1 ([facility]) Respiratory rate 17 /min 17 /min W1 ([facility]) Body temperature 97.4 [degF] 97.4 [degF] eCW1 ( [facility]) Systolic blood pressure 138 mm[Hg] 138 mm[Hg] e CW1 ([facility]) Diastolic blood pressure 82 mm[Hg] 82 mm[Hg] eCW1 ([facility]) Body height 0.00 in Normal (applies to non-numeric resu lts) 0.00 in [facility] ([facility]) Body weight Measured 0.00 lbs Normal (applies to n on-numeric results) 0.00 lbs [facility] ([facility]) Body mass index (BMI) [Ratio] 0.00 kg/m2 No rmal (applies to non-numeric results) 0.00 kg/m2 [facility] ([facility]) Systolic blood pressure 0 mm[Hg] Normal (applies t o non-numeric results) 0 mm[Hg] [facility] ([facility]) Diastolic blood pressure 0 mm[Hg] Normal (applies to non-numeric results) 0 mm[Hg] [facility] ([facility]) Body weight 144 [lb_av] 144 [lb_av] eCW1 ([facility]) Body height [in_i] eCW1 ([facility]) Body mass index (BMI) [Ratio] 25.92 kg/m2 25.92 kg/m2 eCW1 ([facility]) Heart rate 112 /min 112 /min eCW1 ([facility]) Respiratory rate 18 /min 18 /min eCW1 ([facility]) Body temperature 96.8 [degF] 96.8 [degF] eCW1 ( [facility]) Systolic blood pressure 132 mm[Hg] 132 mm[Hg] e CW1 ([facility]) Diastolic blood pressure 84 mm[Hg] 84 mm[Hg] eCW1 ([facility]) Systolic blood pressure 124 mm[Hg] Normal (applies t o non-numeric results) 124 mm[Hg] [facility] Diastolic blood pressure 72 mm[Hg] Normal (applies to non-numeric results) 72 mm[Hg] [facility] Heart rate 97 min Normal (applies to non-numeric resul ts) [address] [facility] Respiratory rate 18 min Normal (applies to non-numeric results) [address] [facility] Body temperature 37.2 isabell Normal (applies to non-numeric results) 37.[address] [facility] Deprecated Oxygen saturation in Capillary blood by Oximetry 97 % Normal (applies to non-numeric results) 97 % [facility] Body height 159.7152 cm Normal (applies to non-numeric res ults) 159.[address] [facility] Body mass index (BMI) [Ratio] 26.09 kg/m2 No rmal (applies to non-numeric results) 26.09 kg/m2 [facility] Body weight Measured 66.8 kg Normal (applies to non-num hilda results) 66.[address] [facility] Inhaled oxygen concentration 40 % Normal (appl ies to non-numeric results) 40 % [facility] ID Date Data Source [id number] 12/11/2020 08:00:00 AM EDT [facility] spital Name Value Range Interpretation Code Description Data Source(s) Weight (Calculated Kilograms) 68.04 68.04 [facility] Weight 2400 2400 [facility] pital Temperature Source 7 7 [facility] Temperature 97.7 97.7 [facility] spital Respiratory Effort 1 1 [facility] Respiratory Rate 18 18 [facility] Pulse Assessment Method [facility] P[facility] Rate 84 84 [facility] pital Height (Calculated Centimeters) 160.02 160. 02 [facility] Height 63 63 [facility] pital Blood Pressure 147/79 147/79 [facility] Body Mass Index (BMI) 26.5 26.5 Health system Weight (Calculated Kilograms) 68.04 68.04 [facility] Weight 2400 2400 [facility] pital Temperature Source 7 7 [facility] Temperature 97.7 97.7 [facility] spital Respiratory Effort 1 1 [facility] Respiratory Rate 18 18 [facility] Pulse Assessment Method 4 4 G [facility] Pulse Rate 84 84 [facility] pital Height (Calculated Centimeters) 160.02 160. 02 [facility] Height 63 63 [facility] pital Blood Pressure 147/79 147/79 [facility] Body Mass Index (BMI) 26.5 26.5 Health system Weight (Calculated Kilograms) 68.04 68.04 [facility] Weight 2400 2400 [facility] pital Temperature Source 7 7 [facility] Temperature 98.6 98.6 [facility] spital Respiratory Effort 1 1 [facility] Respiratory Rate 18 18 [facility] Pulse Assessment Method 4 4 G [facility] Pulse Rate 73 73 [facility] pital Height (Calculated Centimeters) 160.02 160. 02 [facility] Height [address] [facility] 133/88 133/88 [facility] Body Mass Index (BMI) 26.5 26.5 Health system Weight (Calculated Kilograms) 68.04 68.04 [facility] Weight 2400 2400 [facility] pital Temperature Source 7 7 [facility] Temperature 98.0 98.0 [place] [facility] Respiratory Effort 1 1 [facility] Respiratory Rate 16 16 [facility] Pulse Assessment Method 4 4 G [facility] Pulse Rate 87 87 [facility] pital Height (Calculated Centimeters) 160.02 160. 02 [facility] Height 63 63 [facility] pital Blood Pressure 114/74 114/74 [facility] Body Mass Index (BMI) 26.5 26.5 Health system Weight (Calculated Kilograms) 68.04 68.04 [facility] Weight 2400 2400 [facility] pital Temperature Source 7 7 [facility] Temperature 98.0 98.0 [facility] spital Respiratory Effort 1 1 [facility] Respiratory Rate 16 16 [facility] Pulse Assessment Method 4 4 G [facility] Pulse Rate 114 114 [facility] pital Height (Calculated Centimeters) 160.02 160. 02 [facility] Height 63 63 [facility] pital Blood Pressure 109/68 109/68 [facility] Body Mass Index (BMI) 26.5 26.5 Health system Weight (Calculated Kilograms) 68.04 68.04 [facility] Weight 2400 2400 [facility] pital Temperature Source 7 7 [facility] Temperature 98.0 98.0 [facility] spital Respiratory Effort 1 1 [facility] Respiratory Rate 16 16 [facility] Pulse Assessment Method 4 4 G [facility] Pulse Rate 114 114 [facility] pital Height (Calculated Centimeters) 160.02 160. 02 [facility] Height 63 63 [facility] pital Blood Pressure 109/68 109/68 [facility] Body Mass Index (BMI) 26.5 26.5 Health system Weight (Calculated Kilograms) 68.67 68.67 [facility] Height (Calculated Centimeters) 160.02 160. 02 [facility] Body Mass Index (BMI) 26.8 26.8 Health system ID Date Data Source [id number] 12/05/2020 07:49:00 PM EDT [facility] spital Name Value Range Interpretation Code Description Data Source(s) Weight Measurement Method 1 1 [facility] Weight (Calculated Kilograms) 69.22 69.22 [facility] Weight 2441.6 2441.6 [facility] pital Temperature Source 3 3 [facility] Temperature 97.3 97.3 [place] [facility] Respiratory Effort 1 1 [facility] Respiratory Rate 18 18 [facility] Pulse Assessment Method 4 4 G [facility] Pulse Rate 106 106 [place] [facility] pital Height (Calculated Centimeters) 160.02 160. 02 [facility] Height 63 63 [facility] pital Blood Pressure 128/81 128/81 [facility] Body Mass Index (BMI) 27.0 27.0 Health system Weight Measurement Method 1 1 [facility] Weight (Calculated Kilograms) 69.22 69.22 [facility] Weight 2441.6 2441.6 [facility] pital Temperature Source 3 3 [facility] Temperature 97.3 97.3 [facility] Respiratory Effort 1 1 [facility] Respiratory Rate 18 18 [facility] Pulse Assessment Method 4 4 G [facility] Pulse Rate 106 106 [facility] pital Height (Calculated Centimeters) 160.02 160. 02 [facility] Height 63 63 [facility] pital Blood Pressure 128/81 128/81 [facility] Body Mass Index (BMI) 27.0 27.0 Health system Weight Measurement Method 1 1 [facility] Weight (Calculated Kilograms) 69.22 69.22 [facility] Weight 2441.6 2441.6 [facility] pital Temperature Source 3 3 [facility] Temperature 97.6 97.6 [facility] spital Respiratory Effort 1 1 [facility] Respiratory Rate 18 18 [facility] Pulse Assessment Method 4 4 G [facility] Pulse Rate 106 106 [facility] pital Height (Calculated Centimeters) 160.02 160. 02 [facility] Height 63 63 [facility] pital Blood Pressure 147/97 147/97 [facility] Body Mass Index (BMI) 27.0 27.0 Health system Weight Measurement Method 1 1 [facility] Weight (Calculated Kilograms) 69.22 69.22 [facility] Weight 2441.6 2441.6 [facility] pital Temperature Source 7 7 [facility] Temperature 98.7 98.7 [facility] spital Respiratory Effort 1 1 [facility] Respiratory Rate 19 19 [facility] Pulse Assessment Method 4 4 G [facility] Pulse Rate [address] [facility] (Calculated Centimeters) 160.02 160. 02 [facility] Height 63 63 [facility] Blood Pressure 138/79 138/79 [facility] Body Mass Index (BMI) 27.0 27.0 Health system Patient Treatment Plan of Care Planned Activity Planned Date Details Description Data Source (s) Mupirocin 0.02 MG/MG Topical Ointment 05/04/2021 12:00:00 AM EDT eCW1 ([facility]) Mupirocin 0.02 MG/MG Topical Ointment 05/04/2021 12:00:00 AM EDT eCW1 ([facility]) Mupirocin 0.02 MG/MG Topical Ointment 05/04/2021 12:00:00 AM EDT eCW1 ([facility]) Mupirocin 0.02 MG/MG Topical Ointment 05/04/2021 12:00:00 AM EDT eCW1 ([facility]) ferrous gluconate 324 MG Oral Tablet 04/13/2021 12:00:00 AM EDT eCW1 ([facility]) Nicotine 2 MG Chewing Gum 04/13/2021 12:00:00 AM EDT eCW1 ([facility]) ferrous gluconate 324 MG Oral Tablet 04/13/2021 12:00:00 AM EDT eCW1 ([facility]) Nicotine 2 MG Chewing Gum 04/13/2021 12:00:00 AM EDT eCW1 ([facility]) Prolia 60mg/ml 09/01/2020 12:00:00 AM EST eCW1 ([facility]) Prolia 60mg/ml 09/01/2020 12:00:00 AM EST eCW1 ([facility]) Prolia 60mg/ml 09/01/2020 12:00:00 AM EST eCW1 ([facility]) ferrous gluconate 324 MG Oral Tablet 08/31/2020 12:00:00 AM EST eCW1 ([facility]) ferrous gluconate 324 MG Oral Tablet 08/31/2020 12:00:00 AM EST eCW1 ([facility]) ferrous gluconate 324 MG Oral Tablet 08/31/2020 12:00:00 AM EST eCW1 ([facility]) ferrous gluconate 324 MG Oral Tablet 08/31/2020 12:00:00 AM EST eCW1 ([facility]) ferrous gluconate 324 MG Oral Tablet 08/31/2020 12:00:00 AM EST eCW1 ([facility]) Hydrocortisone 25 MG/ML Topical Cream 06/21/2020 12:00:00 AM EDT eCW1 ([facility]) Hydrocortisone 25 MG/ML Topical Cream 06/21/2020 12:00:00 AM EDT eCW1 ([facility]) Hydrocortisone 25 MG/ML Topical Cream 06/21/2020 12:00:00 AM EDT eCW1 ([facility]) Hydrocortisone 25 MG/ML Topical Cream 06/21/2020 12:00:00 AM EDT eCW1 ([facility]) Hydrocortisone 25 MG/ML Topical Cream 06/21/2020 12:00:00 AM EDT eCW1 ([facility]) Hydrocortisone 25 MG/ML Topical Cream 06/21/2020 12:00:00 AM EDT eCW1 ([facility]) Hydrocortisone 25 MG/ML Topical Cream 06/21/2020 12:00:00 AM EDT eCW1 ([facility]) Hydrocortisone 25 MG/ML Topical Cream 06/21/2020 12:00:00 AM EDT eCW1 ([facility]) Hydrocortisone 25 MG/ML Topical Cream 06/21/2020 12:00:00 AM EDT eCW1 ([facility]) Hydrocortisone (Perianal) 1 % 05/18/2020 01:00:00 AM EDT NETSMART ([facility]) Cranberry Ultra Strength 250-60 MG 05/18/2020 01:00:00 AM EDT NETSMART ([facility]) Vagisil Maximum Strength 20-3 % 05/18/2020 01:00:00 AM EDT NETSMART ([facility]) Atorvastatin Calcium 80 MG 05/15/2020 01:00:00 AM EDT NETSMART ([facility]) Citalopram Hydrobromide 20 MG 05/15/2020 01:00:00 AM EDT NETSMART ([facility]) Eliquis 2.5 MG 05/15/2020 01:00:00 AM EDT NETSMART ([facility]) Pantoprazole Sodium 40 MG 05/15/2020 01:00:00 AM EDT NETSMART ([facility]) Sucralfate 1 GM 05/15/2020 01:00:00 AM EDT NETSMART ([facility]) Vitamin D3 1000 UNIT 05/15/2020 01:00:00 AM EDT NETSMART ([facility]) Calcium 600+D3 600-800 MG-UNIT 05/15/2020 01:00:00 AM EDT NETSMART ([facility]) C-1000 1000 MG 05/15/2020 01:00:00 AM EDT NETSMART ([facility]) Benadryl Allergy 25 MG 05/15/2020 01:00:00 AM EDT NETSMART ([facility]) Aleve 220 MG 05/15/2020 01:00:00 AM EDT N ETSMART ([facility]) Ibuprofen 200 MG 05/15/2020 01:00:00 AM EDT NETSMART ([facility]) Stress B Complex/Iron 05/15/2020 01:00:00 AM EDT NETSMART ([facility]) Melatonin 10 MG 05/15/2020 01:00:00 AM EDT NETSMART ([facility]) Tums Extra Strength 750 750 MG 05/15/2020 01:00:00 AM EDT NETSMART ([facility]) Neosporin Original 05/15/2020 01:00:00 AM EDT NETSMART [facility])
[2021-06-24 13:47] LABS: RSV AMPLIFICATION NEGATIVE (NEGATIVE)
[2021-06-24] MEDS: metroNIDAZOLE 500 MG in IV 1 EA IV SCH ×2 (14:06→22:13)
[2021-06-24] MEDS ORDERED: META28.32 PO (14:12)
[2021-06-24] MEDS ORDERED: POTA-136 PO (14:12)
[2021-06-24] MEDS ORDERED: MIRA3350 PO (14:12)
[2021-06-24] MEDS ORDERED: HOME MED LIST COMPLETE! XX SCH (14:15)
[2021-06-24] MEDS: NICOTINE 21MG/24HR 1 EA TRANSDERMAL TD SCH (14:15)
[2021-06-24] MEDS ORDERED: NS 1,000 ML IV SCH (15:10)
[2021-06-24] MEDS: CIPROFLOXACIN 400 MG in IV 1 EA IV SCH (15:54)
[2021-06-24] MEDS ORDERED: POTASSIUM CHLORIDE 10MEQ SR TABLET PO ONE (17:00)
[2021-06-24 19:06] LABS: CREATININE FOR GFR 1.15 MG/DL (0.55-1.30); GLOMERULAR FILTRATION RATE 49.8 (>45); POTASSIUM SERUM 2.7 MEQ/L (3.5-5.1)
[2021-06-24] MEDS ORDERED: HEPARIN SOD (PORCINE) 5000UNITS/ML 1ML VIAL/SYRINGE SC SCH (21:00)
[2021-06-24 21:40] VITALS: BP 109/69
[2021-06-24] MEDS: busPIRone 10 MG TAB PO SCH (22:12)
[2021-06-24] MEDS: MIRTAZAPINE 15 MG TAB PO SCH (22:12)
[2021-06-24] MEDS: CitaloPRAM (CeleXA) 20 MG TAB PO SCH (22:12)
[2021-06-24] MEDS: FOLIC ACID 1 MG TAB PO SCH (22:12)
[2021-06-24] MEDS: ATORVASTATIN 20 MG TAB PO SCH (22:12)
[2021-06-24] MEDS: MULTIVITAMINS/MINERALS THERAP 1 TAB PO SCH (22:12)
[2021-06-24] MEDS: THIAMINE 100 MG TAB PO SCH (22:12)
[2021-06-25] MEDS ORDERED: RAMELTEON 8 MG TAB (ROZEREM) PO PRN (01:35)
[2021-06-25] MEDS ORDERED: LORazepam 2 MG TAB PO PRN (01:35)
[2021-06-25] MEDS: KCL 10MEQ/100ML SWI (KRUN) 10 MEQ in IV 1 EA IV SCH ×10 (02:02→16:53)
[2021-06-25 03:02] LABS: APPEARANCE, URINE CLEAR (CLEAR); BACTERIA, URINE AUTO NEGATIVE (NEGATIVE); BILIRUBIN, URINE AUTO NEGATIVE (NEGATIVE); BLOOD, URINE BLOOD NEGATIVE (NEGATIVE); COLOR, URINE YELLOW (YELLOW); GLUCOSE, URINE (UA) AUTO NEGATIVE (NEGATIVE); KETONE, URINE AUTO NEGATIVE (NEGATIVE); LEUKOCYTE ESTERASE, URINE AUTO NEGATIVE (NEGATIVE); NITRITE, URINE AUTO NEGATIVE (NEGATIVE); PROTEIN, URINE AUTO NEGATIVE (NEGATIVE); RBC, URINE AUTO 0 /HPF (0-3); SPECIFIC GRAVITY URINE AUTO 1.005 (1.002-1.035); SQUAMOUS EPITHELIAL CELL UR AU 2 /HPF (0-6); UROBILINOGEN, URINE AUTO 0.2 mg/dL (0.0-2.0); WBC, URINE AUTO 0 /HPF (0-3)
[2021-06-25 03:16] LABS: OSMOLALITY URINE 145 MOSM/KG (50-1400)
[2021-06-25 04:07] LABS: CREATININE,RANDOM URINE 55.8 MG/DL; SODIUM,RANDOM URINE < 10 MEQ/L
[2021-06-25] MEDS: CIPROFLOXACIN 400 MG in IV 1 EA IV SCH (04:19)
[2021-06-25 06:00] VITALS: BP 112/63
[2021-06-25] MEDS: metroNIDAZOLE 500 MG in IV 1 EA IV SCH (06:02)
[2021-06-25] MEDS ORDERED: METOCLOPRAMIDE INJ 10MG/2ML VIAL (J2765 PER 1) IV ONE (06:20)
[2021-06-25 06:54] LABS: HEMATOCRIT 27.7 % (36.0-47.0); HEMOGLOBIN 9.8 g/dl (12.0-15.5); MEAN CORPUSCULAR HGB CONC 35.4 g/dl (32.0-36.5); MEAN CORPUSCULAR VOLUME 93.3 fl (80.0-96.0); PLATELET COUNT, AUTOMATED 383 10^3/uL (150-450); RED BLOOD COUNT 2.97 10^6/uL (4.00-5.40); WHITE BLOOD COUNT 12.9 10^3/uL (4.0-10.0)
[2021-06-25 07:08] LABS: INR 1.33; PROTHROMBIN TIME 16.9 SECONDS (12.7-14.5)
[2021-06-25 07:39] LABS: ALBUMIN 1.8 GM/DL (3.2-5.2); ALT/SGPT 29 U/L (12-78); BILIRUBIN,TOTAL 1.2 MG/DL (0.2-1.0); BLOOD UREA NITROGEN 8 MG/DL (7-18); CALCIUM LEVEL 6.8 MG/DL (8.8-10.2); CARBON DIOXIDE LEVEL 24 MEQ/L (21-32); CHLORIDE LEVEL 94 MEQ/L (98-107); CREATININE FOR GFR 0.79 MG/DL (0.55-1.30); GLOMERULAR FILTRATION RATE > 60.0 (>45); GLUCOSE, FASTING 114 MG/DL (70-100); MAGNESIUM LEVEL 1.6 MG/DL (1.8-2.4); POTASSIUM SERUM 2.7 MEQ/L (3.5-5.1); SODIUM LEVEL 127 MEQ/L (136-145)
[2021-06-25] MEDS ORDERED: POTASSIUM CHLORIDE 10MEQ SR TABLET PO ONE ×3 (08:00→20:00)
[2021-06-25] MEDS: ATORVASTATIN 20 MG TAB PO SCH (08:42)
[2021-06-25] MEDS: FOLIC ACID 1 MG TAB PO SCH (08:42)
[2021-06-25] MEDS: MULTIVITAMINS/MINERALS THERAP 1 TAB PO SCH (08:42)
[2021-06-25] MEDS: CitaloPRAM (CeleXA) 20 MG TAB PO SCH (08:42)
[2021-06-25] MEDS: THIAMINE 100 MG TAB PO SCH (08:42)
[2021-06-25] MEDS: busPIRone 10 MG TAB PO SCH ×2 (08:42→21:13)
[2021-06-25] MEDS: NICOTINE 21MG/24HR 1 EA TRANSDERMAL TD SCH (08:43)
[2021-06-25] MEDS: ENOXAPARIN 40MG/0.4ML SYRINGE (J1650 PER 10MG) SC SCH (09:00)
[2021-06-25] MEDS ORDERED: IPRATROPIUM 0.5MG/ALBUTEROL 2.5MG INH SOL UD 3ML (DUONEB) NEB PRN (09:20)
[2021-06-25] MEDS: LOPERAMIDE 2 MG CAPLET PO PRN ×3 (10:55→18:42)
[2021-06-25 11:08] LABS: C REACTIVE PROTEIN QUANTITATIV 4.79 MG/DL (0.00-0.30)
[2021-06-25 11:29] LABS: ERYTHROCYTE SEDIMENTATION RATE 34 mm/hr (0-30)
[2021-06-25] MEDS: cefTRIAXone SOD 1 GM in D5W MINI-BAG PLUS 50 ML IV SCH (12:47)
[2021-06-25 13:25] LABS: BLOOD UREA NITROGEN 7 MG/DL (7-18); CARBON DIOXIDE LEVEL 23 MEQ/L (21-32); CHLORIDE LEVEL 97 MEQ/L (98-107); CREATININE FOR GFR 0.72 MG/DL (0.55-1.30); GLOMERULAR FILTRATION RATE > 60.0 (>45); GLUCOSE, FASTING 140 MG/DL (70-100); POTASSIUM SERUM 2.8 MEQ/L (3.5-5.1); SODIUM LEVEL 128 MEQ/L (136-145)
[2021-06-25 13:49] VITALS: BP 115/71
[2021-06-25 14:00] VITALS: BP 117/64
[2021-06-25 15:15] VITALS: BP 119/68
[2021-06-25 15:45] VITALS: BP 112/66
[2021-06-25 16:05] LABS: SOURCE, BODY FLUID ALBUMIN ASCITES
[2021-06-25 16:35] LABS: SPEC. GRAVITY BODY FLUIDS 1.009 (NOT ESTABLISHED)
[2021-06-25 17:18] LABS: APPEARANCE, BODY FLUID CLEAR (CLEAR); ASCITES FL COLOR PALE YELLOW (COLORLESS); SOURCE, BODY FLUID ASCITES
[2021-06-25 17:30] LABS: BLOOD UREA NITROGEN 6 MG/DL (7-18); CALCIUM LEVEL 6.9 MG/DL (8.8-10.2); CARBON DIOXIDE LEVEL 23 MEQ/L (21-32); CHLORIDE LEVEL 97 MEQ/L (98-107); CREATININE FOR GFR 0.64 MG/DL (0.55-1.30); GLOMERULAR FILTRATION RATE > 60.0 (>45); GLUCOSE, FASTING 123 MG/DL (70-100); MAGNESIUM LEVEL 1.6 MG/DL (1.8-2.4); POTASSIUM SERUM 3.6 MEQ/L (3.5-5.1); SODIUM LEVEL 128 MEQ/L (136-145)
--- NOTE | 2021-06-25 17:59 | IPNPDOC ---
Text Note Date of Service The patient was seen on 06/25/21. NOTE S: Pt was seen at bedside this morning. Pt states she is feeling better today compared to yesterday. Pt states her nausea has improved, denies vomiting, and is able to keep clear liquids down. Pt states she has about 10 small loose bowel movements since yesterday which was more than she said she had yesterday. Pt wants to know why her belly is so big and if there is anything we can do about it. Pt states she has generalized muscle aches particularly in her legs, lower back pain that worsens with walking, and abdominal pain stating it is more localized in her epigastric area and is mainly from her sitting position. Pt denies any shaking or alcohol withdrawals. ROS: CONSTITUTIONAL: Denies fevers, shaking chills, headaches, dizziness, change in vision. CARDIOPULMONARY: Denies chest pain, palpitations, SOB, dyspnea, wheezing, coughing. GASTROINTESTINAL: Admits to epigastric abdominal pain and generalized diffuse abdominal pain. Admits to frequent episodes of diarrhea. Denies n/v. GENITOURINARY: Denies dysuria, polyuria. MUSCULOSKELETAL: Admits to lower back pain and generalized muscle weakness particularly in the LE. PSYCH: Denies depressive moods. O: PHYSICAL EXAM: Vitals: See below GENERAL: Pt was seen laying in bed after having a BM. Pt is A&Ox4 and in NAD. HEENT: Head NC and AT. EOIM and no scleral icterus. Nares patent. Mucus membranes moist. LUNGS: Expiratory wheezing b/l. Crackles appreciated in right LLF. No accessory muscles used to breath. HEART: RRR. S1S2. No m/r/g. ABDOMEN: Distended, firm, and non-tender to palpation. Fluid shift appreciated with dullness to percussion. EXTREMITIES: 3+ LE edema. Pedal pulse 2+. SKIN/NAILS: No spider angioma, caput medusa, or jaundice appreciated MUSCULOSKELETAL: No obvious general deformities. Muscle strength 5/5 and equal b/l. Muscle wasting noted in both UE and LE. PSYCH: Mood and affect appropriate. A/P: Ms. Vidal is a 89 yo F with a PMH of HLD, nicotine abuse, alcohol abuse, chronic diarrhea (with a recent hospitalization 06/01 and ED visit 06/12 for similar presentations) presents to the ED 06/25/2021 with 1.5 months of pers istent, worsening diarrhea with distended abdomen over the past few days with weakness and dizziness was admitted for ascites and diarrhea with LATASHA, hyponatremia, and pancolitis continues to now have uncontrolled diarrhea and electrolyte imbalance. # Diarrhea 2/2 Pancolitis of unknown cause -Likely 2/2 alcohol withdrawal vs. inflammatory, unlikely infectious -GI panel 06/25 negative -CRP 06/25 was 4.79 -s/p IV abx Ciprofloxacin and Flagyl -c/t Loperamide for anti-diarrhea agent -Will order celiac testing -Will place on Lactose/gluten free diet # Ascites -Likely 2/2 liver cirrhosis -MELD score 20 pts today -Ordered for diagnostic and therapeutic paracentesis -Fluid labs, Cx, and smear from paracentesis 06/25 pending -start IV ceftriaxone pending paracentesis fluid analysis -Will obtain nutrition consult for low albumin -If diagnostic of liver cirrhosis, pt will need outpt follow up for further evaluation including endoscopy # Hyponatremia -Likely 2/2 decreased PO intake and diarrhea -Na on 06/25 was 128 -s/p IVF # Hypokalemia -Likely 2/2 diarrhea -K on 06/25 was 2.7 -continue to replete as needed # LATASHA, acute-improving -Likely 2/2 hypoperfusion from dehydration -Cr was 1.33 on admission. Now back to baseline 0.64 on 06/25 -Will obtain UA -CT abd/pel 06/12 negative for any obstruction or hydronephrosis -Urine OSM and electrolytes done 06/25. Show FeNa 0.2% indicating prerenal etiology. # Alcohol abuse, chronic-stable -Alc screen negative -c/t monitor for s/s for withdrawal, CIWA protocol in place -c/t Lorazepam PRN based on CIWA -c/t multivitamins, folic acid, thiamine daily -Pt states drinks 1-2 glasses wine every night, but has been cutting down since May 2021. Currently denies any cravings or tremors. # Nicotine abuse -c/t nicotine patch #HLD -c/t home statin # Depression, chronic-stable -c/t home mirtazapine, buspirone, citalopram DVT Ppx: Lovenox 40 mg subQ daily Diet: Regular diet Code: Full code Disposition: home pending clinical improvement VS,[place], I+O VS, [place], I+O Laboratory Tests 06/24/21 18:30 06/25/21 06:28 06/25/21 12:41 Vital Signs Date Time Temp Pulse Resp B/P (MAP) Pulse Ox O2 Delivery O2 Flow Rate FiO2 06/25/21 15:15 97.9 92 20 119/68 (85) 98 Room Air I&O- Last 24 Hours up to 6 AM 06/25/21 06:00 Intake Total 550 ml Output Total 170 ml Balance 380 ml GME ATTESTATION GME ATTESTATION My faculty preceptor for this patient encounter was physically present during the encounter and was fully available. All aspects of the patient interview, examination, medical decision making process, and medical care plan development were reviewed and approved by the faculty preceptor. The faculty preceptor is aware and concurs with the plan as stated in the body of this note and will attest to such by his/her cosignature. ATTENDING NOTE I, Rock Faith MD, have independently examined this patient and performed my own physical exam with the student and the resident in the room with me, as well as reviewed the documentation and edited where necessary. I have discussed in detail with the resident and the student the findings and plan of treatment as documented by the resident and edited their note. I agree with their findings and treatment plan and have edited their documentation. HERO MARQUES OMS-4 Jun 25, 2021 16:08 KATLYN CUEVA D.O. Jun 25, 2021 18:36 ROCK FAITH MD Jun 28, 2021 13:47
--- NOTE | 2021-06-25 18:07 | REP ---
INDICATION: ascities. COMPARISON: None. TECHNIQUE: The procedure was performed under the direct supervision of Dr. Romano. The risks and benefits of the procedure were explained to the patient and informed consent was obtained. The largest pocket of fluid was localized in the right flank using ultrasound guidance. The skin was prepped and draped in a sterile fashion. 4 mL of 1% lidocaine was used as a local anesthetic. An 8-[place] multi side-hole catheter was inserted using trocar technique.3550 mL of yellow fluid was withdrawn with a sample sent to the lab for analysis. Estimated blood loss: Less than 1 mL The patient tolerated the procedure well and there were no immediate complications. After the appropriate amount of monitored convalescence, the patient was discharged from the department. FINDINGS: None IMPRESSION: Ultrasound-guided paracentesis [id number] mL of yellow fluid with a sample sent to the lab for analysis. <Electronically signed by Trip Gold > 06/25/21 1515 <Electronically signed by Marlon Romano > 06/25/21 [id number]
[2021-06-25] MEDS ORDERED: KCL 10MEQ/100ML SWI (KRUN) 10 MEQ in IV 1 EA IV SCH (20:00)
[2021-06-25] MEDS ORDERED: MAG SULF 1GM/100ML (MAG RUN) 1 GM in IV 1 EA IV ONE (20:00)
[2021-06-25 21:10] LABS: SOURCE, BODY FLUID GLUCOSE ASCITES; SOURCE, BODY FLUID TOT PROTEIN ASCITES; TOTAL PROTEIN, BODY FLUID 0.8 G/DL (NOT ESTABLISHED)
[2021-06-25] MEDS: MIRTAZAPINE 15 MG TAB PO SCH (21:13)
[2021-06-25 22:00] VITALS: BP_SYST 100; BP_SYST 102; BP_DIAS 50; BP_DIAS 63
[2021-06-26 06:00] VITALS: BP_SYST 102; BP_SYST 108; BP_DIAS 62; BP_DIAS 69
--- NOTE | 2021-06-26 06:17 | CR ---
CONSULTATION DATE: 06/25/2021 REQUESTING PHYSICIAN: ABHINAV ROUSSEAU M.D. REASON FOR CONSULTATION: Hyponatremia. HISTORY OF PRESENT ILLNESS: Ms. Hilary Vidal is previously unknown to me. She is a 71-year-old female with a past medical history of alcohol abuse, dyslipidemia, chronic diarrhea and chronic active smoker. She was recently admit to [facility] for workup of diarrhea and underwent a colonoscopy on June 04, 2021 with finding of hemorrhoids, colonic polyps and diverticulosis. She has recently been found to have new development of moderate ascites on CT scan done on June 01, 2021. Interestingly, the patient had a CT scan on May 07 that did not show any ascites at that time. She had a repeat CT scan done on June 12 because of a complaint of diarrhea and increasing abdominal distention and that again showed moderate ascites, new since April of this year and also a cirrhotic looking appearance to the liver. The patient herself is unaware of the above findings. She states she came to the Emergency Room yesterday because of persistent and worsening diarrhea associated with generalized weakness, dizziness and malaise and chronic abdominal pain and worsening abdominal distention. In the Emergency Room, the patient was noted to be hyponatremic with a sodium level of 124 and also had a mild acute kidney injury with a creatinine of 1.3. Her serum osmolality was depressed at 253. A Nephrology evaluation was requested because of hyponatremia. The patient denies a prior known history of hyponatremia but when I looked at her old labs I see that she has been mildly hyponatremic intermittently since January of 2020. PAST MEDICAL HISTORY: As mentioned above and also includes major depressive disorder, alcohol abuse, tobacco dependence, dyslipidemia, diverticulosis and new onset ascites. PAST SURGICAL HISTORY: Colonoscopy and cataract removal in __. SOCIAL HISTORY: She is unemployed. She reports one pack per day of cigarettes for the last 50 years. She reports she drinks two bottles of wine a week. She denies drug use. FAMILY HISTORY: Negative for renal disease or known liver issues. ALLERGIES: Milk. HOME MEDICATIONS: Lipitor 80 mg p.o. daily, BuSpar 10 mg p.o. b.i.d., Mirtazapine 15 mg p.o. q.h.s., potassium chloride 40 mEq p.o. b.i.d., Metamucil one packet p.o. daily, Citalopram 20 mg p.o. daily, Miralax p.r.n. REVIEW OF SYSTEMS: A 12 point review of systems is negative except as per HPI. Constitutional: Denies fevers or chills. She reports generalized weakness and malaise. Eyes: Denies visual changes or tearing. She has a history of cataracts. ENT: Denies rhinorrhea, epistaxis or odynophagia. Cardiac: Denies chest pain or palpitations. Respiratory: Chronic active smoker. Denies shortness of breath or cough. Gastrointestinal: Reports chronic diarrhea, recent colonoscopy and increasing abdominal distention, newly diagnosed ascites. Genitourinary: Denies dysuria or hematuria. Endocrine: Denies a history of diabetes or thyroid problems. Psychiatric: Reports alcohol abuse and history of depression. Neurologic: Denies seizures or syncope. Musculoskeletal: Denies acute myalgias or arthralgias. Hematologic: Denies anticoagulant use. Reports mild anemia. The remainder of review of systems is negative or as per HPI. PHYSICAL EXAMINATION: VITAL SIGNS: Temperature is 97.9, pulse is 88, respiratory rate is 18, blood pressure is 112/66, saturating 97% on room air. INTAKE AND OUTPUT: Intake yesterday was 200, weight on the bed scale today is not recorded. GENERAL: Patient is seen lying in bed, awake, alert, oriented x3 in no apparent distress. Elderly female. HEENT: Extraocular muscles are intact. Sclera are anicteric. Tongue is moist. NECK: Supple. Jugular veins are elevated. HEART: Heart sounds are regular. S1 and S2. LUNGS: Clear to auscultation. No crackle or rale. ABDOMEN: Soft and distended. There is ascites present. EXTREMITIES: Negative for edema. NEUROLOGIC: She is oriented x3, interactive and conversational. PSYCHIATRIC: Appropriate mood and affect. LABORATORY DATA: Sodium is 128, potassium is 3.6, bicarbonate is 23, creatinine on admission 1.3, current creatinine 0.6, magnesium 1.6, total bilirubin 1.2, albumin 1.8, TSH 1.9, free T4 1.7, hemoglobin 9.8, platelets 383,000. Urinalysis was negative and urine random sodium was less than 10. Urine osmolality was 145, serum osmolality was 253. GI PCR is negative. Paracentesis today removed 3.5 liters of ascitic fluid. Her chest CTs are noted from May 07, June 01 and June 12. INPATIENT MEDICATIONS: 1. Ceftriaxone 1 gram IV daily. 2. Multiple runs of potassium chloride and oral potassium chloride supplementation as well. 3. She received normal saline 75 ml/hr when she was in the Emergency Room. 4. Lipitor 80 mg p.o. daily. 5. BuSpar 10 mg p.o. b.i.d. 6. Celexa 20 mg p.o. daily. 7. Folic acid 1 mg p.o. daily. 8. Reglan 5 mg IV x1. 9. Mirtazapine 15 mg p.o. q.h.s. 10.Multivitamin one daily. 11.Thiamine 100 mg p.o. daily. PROBLEMS: 1. Hypo-osmolar hyponatremia, it is most likely secondary to decompensated cirrhosis with ascites. I reviewed her serial CT scan. She had one CT scan in April of this year which showed no ascites. Patient's sodium at that time was 135, since then her CT scans in May showed development of new moderate ascites and her sodium level has down-trended. I would hold off on putting her on diuretics today because she just had a first lifetime paracentesis with 3.5 liters of fluid drained. Tomorrow will give consideration to giving the patient albumin and starting her on Lasix and spironolactone (by mouth) in view of decompensated cirrhosis with ascites and chronic hypervolemic and hypo-osmolar hyponatremia. 2. Hypokalemia. Patient would benefit from the addition of spironolactone given her ascites and low potassium. I am going to hold off on putting her on a diuretic today because she just had a first lifetime paracentesis. We will reevaluate for a diuretic initiation tomorrow. 3. Recent acute kidney injury. Given that the patient appears to be a newly diagnosed cirrhotic with ascites she is not suitable for NSAID or angiotensin receptor avtar nor TREASURE inhibitor as all of these would potentiate risk of acute kidney injury. There is no new need for any IV fluid administration at this time. 4. Ascites, it appears to be a new development. Patient had no ascites on CT scan imaging in April and now she has moderate ascites and is status post first lifetime paracentesis. She reports a lengthy history of daily alcohol intake and she is likely to have cirrhosis but it will be worked up further by the primary team. I would hold off on diuretic initiation today because she just had her first lifetime paracentesis. In terms of her cirrhosis, the patient would benefit from a high protein, low salt diet. 5. Iron deficiency anemia. Iron stores were recently checked in early May and were suboptimal at that time. The patient can take oral iron supplement. Thank you for involving me in the care of Ms. Vidal, I will follow her along with you.
[2021-06-26 07:13] LABS: BASO % 0.4 % (0.0-1.0); EOS # 0.1 10^3/uL (0.0-0.5); EOS % 1.1 % (0.0-3.0); HEMATOCRIT 30.5 % (36.0-47.0); HEMOGLOBIN 10.4 g/dl (12.0-15.5); LYMPH # 1.5 10^3/uL (1.5-5.0); LYMPH % 14.3 % (24.0-44.0); MEAN CORPUSCULAR HEMOGLOBIN 32.6 pg (27.0-33.0); MEAN CORPUSCULAR HGB CONC 34.1 g/dl (32.0-36.5); MEAN CORPUSCULAR VOLUME 95.6 fl (80.0-96.0); MONO # 0.9 10^3/uL (0.0-0.8); MONO % 8.9 % (2.0-8.0); NEUTROPHILS # 7.9 10^3/uL (1.5-8.5); NEUTROPHILS % 74.7 % (36.0-66.0); PLATELET COUNT, AUTOMATED 372 10^3/uL (150-450); RED BLOOD COUNT 3.19 10^6/uL (4.00-5.40); WHITE BLOOD COUNT 10.5 10^3/uL (4.0-10.0)
[2021-06-26 07:48] LABS: ALBUMIN 1.8 GM/DL (3.2-5.2); ALT/SGPT 30 U/L (12-78); BILIRUBIN,TOTAL 1.2 MG/DL (0.2-1.0); BLOOD UREA NITROGEN 4 MG/DL (7-18); CALCIUM LEVEL 7.2 MG/DL (8.8-10.2); CARBON DIOXIDE LEVEL 26 MEQ/L (21-32); CHLORIDE LEVEL 102 MEQ/L (98-107); CREATININE FOR GFR 0.55 MG/DL (0.55-1.30); GLOMERULAR FILTRATION RATE > 60.0 (>45); GLUCOSE, FASTING 108 MG/DL (70-100); POTASSIUM SERUM 3.7 MEQ/L (3.5-5.1); SODIUM LEVEL 133 MEQ/L (136-145); TOTAL PROTEIN 5.1 GM/DL (6.4-8.2)
[2021-06-26] MEDS: ENOXAPARIN 40MG/0.4ML SYRINGE (J1650 PER 10MG) SC SCH (08:51)
[2021-06-26] MEDS: NICOTINE 21MG/24HR 1 EA TRANSDERMAL TD SCH (08:51)
[2021-06-26] MEDS: THIAMINE 100 MG TAB PO SCH (08:52)
[2021-06-26] MEDS: LOPERAMIDE 2 MG CAPLET PO PRN (08:52)
[2021-06-26] MEDS: busPIRone 10 MG TAB PO SCH (08:52)
[2021-06-26] MEDS: ATORVASTATIN 20 MG TAB PO SCH (08:52)
[2021-06-26] MEDS: FOLIC ACID 1 MG TAB PO SCH (08:52)
[2021-06-26] MEDS: CitaloPRAM (CeleXA) 20 MG TAB PO SCH (08:52)
[2021-06-26] MEDS: MULTIVITAMINS/MINERALS THERAP 1 TAB PO SCH (08:52)
[2021-06-26 09:00] VITALS: BP 102/66
[2021-06-26] MEDS ORDERED: SPIRONOLACTONE 12.5MG PER 1/2 TABLET PO SCH (09:00)
[2021-06-26] MEDS ORDERED: FUROSEMIDE 20 MG TAB PO SCH (09:00)
[2021-06-26] MEDS ORDERED: FERROUS SULFATE 325MG TAB PO SCH (09:00)
[2021-06-26] MEDS ORDERED: FERR1TAB8 PO (11:39)
[2021-06-26] MEDS ORDERED: ALDA25TA2 PO (11:39)
[2021-06-26] MEDS ORDERED: LOPE2CA PO (11:39)
[2021-06-26] MEDS ORDERED: FURO20TA2 PO (11:39)
[2021-06-26] MEDS: cefTRIAXone SOD 1 GM in D5W MINI-BAG PLUS 50 ML IV SCH (12:52)
[2021-06-26 13:55] VITALS: BP 105/71
--- NOTE | 2021-06-26 16:26 | DS.PDOC ---
Discharge Summary General Date of Admission Jun 24, 2021 at 12:57 Date of Discharge June 26, 2021 Attending Physician: ROCK FAITH MD Discharge Summary PROCEDURES PERFORMED DURING STAY: Paracentesis ADMITTING DIAGNOSES: 1. Persistent diarrhea 2. LATASHA 3. Hyponatremia 4. Hypokalemia 5. Ascites DISCHARGE DIAGNOSES: 1. Alcoholic liver cirrhosis with ascites s/p paracentesis 2. Chronic diarrhea, improved 3. LATASHA, resolved 4. Hyponatremia, resolved 5. Hypokalemia, resolved COMPLICATIONS/CHIEF COMPLAINT: Ascites, Diarrhea. HISTORY OF PRESENT ILLNESS: Ms. Vidal is a 71 yo female with a PMH of HLD, current smoker, alcohol abuse, chronic diarrhea presents 06/24/2021 for several day history of generalized weakness, dizziness, and malaise. Patient states she has poor oral intake, especially with solids, but has been able to tolerate minimal liquids. Patient states she has had abdominal pain with persistent watery diarrhea for the past 1.5 months and has developed a distended abdomen over the past few days. Patient denies any sick contacts. Patient was recently admitted for chronic diarrhea 06/01/2021 and underwent a colonoscopy 06/04/2021 which showed no acute findings. Patient denies chest pain, SOB, headache, changes in vision, or depressed mood. Patient was admitted to the hospital for ascites and diarrhea with management of presenting symptoms. HOSPITAL COURSE: Upon arrival in the ED, pt was given Zofran for nausea and multivitamins, folic acid, and thiamine were given for alcohol abuse. Pt's hypokalemia and hypomagnesemia were repleted. Dr. Vickers from nephrology was consulted for the pt's hyponatremia and the pt's sodium trended back to normal with IV NS and as diarrhea symptoms resolved. The pt was given Ciprofloxacin and Flagyl until the GI panel came back negative to which these abx was discontinued. Pt was found to have ascites and interventional radiology was called to perform a diagnostic and therapeutic first-lifetime paracentesis for the patient. Pt tolerated the paracentesis well with drainage of 3.55 L removed. Pt was started IV Ceftriaxone for SBP prophylaxis at this time and during the remaining course of her admission. Fluid from paracentesis resulted a SAAG of 1.6 with WBC<500, PMN<250, and total protein<2.5 showing uncomplicated ascites in cirrhosis secondary to most likely alcoholic liver cirrhosis. Pt's creatine was elevated to 1.33 on admission but trended back to baseline. Pt's frequency in diarrhea decreased and pt states her BM became back to baseline over the course of the hospital stay with regular well-formed stools. Patient is medically stable and no longer requires hospital level of care. DISCHARGE MEDICATIONS: Please see below. ALLERGIES: Please see below. PHYSICAL EXAMINATION ON DISCHARGE: VITAL SIGNS: Please see below. GENERAL: Pt was seen at bedside today sitting comfortably in bed in NAD. Pt is A&Ox3. HEENT: Head AT and NC. EOMI and PERRLA. No scleral icterus. Nares patent. Mucus membranes moist. NECK: Supple, no lymphadenopathy. CARDIOVASCULAR EXAMINATION: RRR. S1S2. No m/r/g. RESPIRATORY EXAMINATION: Clear to auscultation bilaterally. No accessory muscles used to breath. No wheezes, rhonchi, or rales. ABDOMINAL EXAMINATION: Distended, soft, and non-tender. abdominal sounds heard in all quadrants. EXTREMITIES: 1+ LE edema up to the knees. Dorsalis pedis pulses 2+ bilaterally SKIN: No spider angioma, caput medusa, or jaundice appreciated. NEUROLOGIC: No focal deficits appreciated PSYCHIATRIC EXAMINATION: Mood and affect appropriate. No signs of depression. LABORATORY DATA: Please see below. IMAGING: Paracentesis ultrasound 06/25/2021: Ultrasound-guided paracentesis [id number] mL of yellow fluid with a sample sent to the lab for analysis. PROGNOSIS: Good ACTIVITY: As tolerated. DIET: Regular diet DISCHARGE PLAN/DISPOSITION: Home with Self-Care. DISCHARGE INSTRUCTIONS: Follow-up with your PCP in 7-10 days. You will need a referral to see GI. Please take all medications as prescribed You may take loperamide as needed for diarrhea You will need outpatient referral to gastroenterology for your new diagnosis of liver cirrhosis If your symptoms return or your condition worsens, please call your PCP or return to the ED for further evaluation. ITEMS TO FOLLOWUP ON ON OUTPATIENT: Follow up with PCP regarding management of alcoholic cirrhosis. Recommend GI referral for endoscopy to evaluate for varices. Recommended repeat BMP and Magnesium level on follow up give repletion needed while inpatient. DISCHARGE CONDITION: Stable. TIME SPENT ON DISCHARGE: 35 minutes. Vital Signs/I&Os Vital Signs Date Time Temp Pulse Resp B/P (MAP) Pulse Ox O2 Delivery O2 Flow Rate FiO2 06/26/21 13:55 97.9 98 20 105/71 (82) 98 Room Air I&O- Last 24 Hours up to 6 AM 06/26/21 06:00 Intake Total 1360 ml Balance 1360 ml Laboratory Data Labs 24H Laboratory Tests 2 06/25/21 16:31: Anion Gap 8, Glomerular Filtration Rate > 60.0, Calcium Level 6.9L, Magnesium Level 1.6L 06/25/21 19:14: 06/26/21 06:25: Anion Gap 5L, Glomerular Filtration Rate > 60.0, Calcium Level 7.2L, Magnesium Level 2.0, Immature Granulocyte % (Auto) 0.6, Neutrophils (%) (Auto) 74.7H, Lymphocytes (%) (Auto) 14.3L, Monocytes (%) (Auto) 8.9H, Eosinophils (%) (Auto) 1.1, Basophils (%) (Auto) 0.4, Neutrophils # (Auto) 7.9, Lymphocytes # (Auto) 1.5, Monocytes # (Auto) 0.9H, Eosinophils # (Auto) 0.1, Basophils # (Auto) 0.0, Nucleated Red Blood Cells % (auto) 0.0, Total Bilirubin 1.2H, Aspartate Amino Transf (AST/SGOT) 68H, Alanine Aminotransferase (ALT/SGPT) 30, Alkaline Phosphatase 226H, Total Protein 5.1L, Albumin 1.8L, Albumin/Globulin Ratio 0.5L CBC/BMP Laboratory Tests 06/25/21 16:31 06/26/21 06:25 Microbiology Microbiology 06/25/21 Gram Stain - Final, Resulted 06/25/21 Body Fluid Culture, Resulted Pending 06/24/21 Gastrointestinal Tract Panel (PCR) - Final, Complete Discharge Medications Scheduled Atorvastatin Calcium (Atorvastatin Calcium) 80 Mg Tab, 80 MG PO DAILY, (Re ported) Buspirone HCl (Buspirone HCl) 10 Mg Tablet, 10 MG PO BID, (Reported) Citalopram Hydrobromide (Citalopram HBr) 20 Mg Tablet, 20 MG PO DAILY, (Reported) Ferrous Sulfate (Ferrous Sulfate) 325 Mg Tablet, 325 MG PO DAILY Furosemide (Furosemide) 20 Mg Tablet, 20 MG PO DAILY Mirtazapine (Remeron) 15 Mg Tablet, 15 MG PO QHS, (Reported) Psyllium Husk (with Sugar) (Metamucil Powder) 575 Gm Powder, 1 PKT PO DAILY, (Reported) Spironolactone (Aldactone) 25 Mg Tablet, 12.5 MG PO DAILY Scheduled PRN Loperamide HCl (Anti-Diarrheal) 2 Mg Tablet, 2 MG PO ASDIRECTED PRN for DIARRHEA Allergies Coded Allergies: milk (Verified Adverse Reaction, Mild, GI upset, 06/12/21) GME ATTESTATION GME ATTESTATION My faculty preceptor for this patient encounter was physically present during the encounter and was fully available. All aspects of the patient interview, examination, medical decision making process, and medical care plan development were reviewed and approved by the faculty preceptor. The faculty preceptor is aware and concurs with the plan as stated in the body of this note and will attest to such by his/her cosignature. ATTENDING NOTE I, Rock Faith MD, have independently examined this patient and performed my own physical exam with the student and the resident in the room with me, as well as reviewed the documentation and edited where necessary. I have discussed in detail with the resident and the student the findings and plan of treatment as documented by the resident and edited their note. I agree with their findings and treatment plan and have edited their documentation. HERO MARQUES OMS-4 Jun 26, 2021 16:26 KATLYN CUEVA D.O. Jun 26, 2021 18:15 ROCK FAITH MD Jun 28, 2021 13:59
--- NOTE | 2021-06-26 22:14 | IPN ---
NEPHROLOGY PROGRESS NOTE DATE: 06/26/2021 SUBJECTIVE: Miss Richard is seen and examined this morning at the bedside. She had a paracentesis yesterday with 3.5 liters of fluid removed. There is no sign of any peritonitis. She feels relief after having the ascitic fluid drained. She offers no complaints today. She is anxious to go home. She understands that she needs to strictly abstain from alcohol given her recently diagnosed cirrhosis, and I have also advised her to strictly abstain from any NSAID use, and I have advised her to increase her dietary protein. OBJECTIVE: PHYSICAL EXAMINATION: VITAL SIGNS: Temperature 97.9, pulse 98, respiratory rate 20, blood pressure 105/71, saturating 98% on room air. INTAKE AND OUTPUT: Intake yesterday was 1.7 liters. Weight in the bed scale today is not recorded. GENERAL APPEARANCE: The patient is seen lying in bed, awake, alert, oriented, in no distress. HEENT: The extraocular muscles are intact. Tongue is moist. NECK: Jugular veins are elevated. HEART: Sounds are regular. S1, S2. LUNGS: Clear to auscultation. Better air movement today. No crackles, no rales. ABDOMEN: Soft. There is diminished ascites. EXTREMITIES: She has ongoing 1+ edema peripherally. SKIN: No jaundice. NEUROLOGICAL: She is oriented x3, interactive and conversational. PSYCHIATRIC: Appropriate mood and affect. LABORATORY STUDIES: Sodium 133, up from 124 on admission. Potassium 3.7, bicarbonate 26, creatinine 0.5, magnesium 2.0, albumin 1.8, hemoglobin 10.4, white count 10.5. INPATIENT MEDICATIONS: I started the patient on Spironolactone 12.5 mg p.o. daily, and I ordered Lasix 20 mg daily as well. She was also started on ferrous sulfate 325 mg p.o. daily. No other medication changes are noted. PROBLEMS: 1. Recently diagnosed decompensated alcoholic liver cirrhosis with first lifetime paracentesis - The patient has peripheral edema as well. She was counseled on need for alcohol abstinence. She should follow a moderate fluid restriction, low sodium diet and should increase her dietary protein. Given her ascites and edema and hyponatremia on admission and hypokalemia throughout the hospital stay, I put her on low dose Lasix and low dose Spironolactone. She will need close follow up of her electrolytes. She will follow up for this with her primary care provider. She is advised to avoid all NSAIDs and she is not suitable for any adams or ARBs. She can very easily develop an acute kidney injury. 2. Status post acute kidney injury - creatinine is down to 0.5 on labs today. The patient is status post first lifetime paracentesis. Cautiously starting her on low dose diuretics as she is a decompensated sclerotic. She will need close outpatient follow up. She does not want to come to the nephrology office for this nor does she have to. She can follow up with her primary care for electrolyte recheck. 3. Hypokalemia - The patient had persistently low potassium levels on the course of this admission. I put her on low dose Spironolactone in view of cirrhosis, and she will need monitoring of her potassium level. 4. Hyposmolar hyponatremia it is a consequence of end-stage liver disease (cirrhosis with ascites). She should continue with a low salt diet and moderate fluid restriction. She should increase her dietary protein, and she can follow up with her primary care provider in regards to the recently started diuretic. 5. Hypoalbuminemia consequence of cirrhosis and increased dietary protein is advised. 6. Iron deficiency anemia she was started on ferrous sulfate. 7. Disposition consultation on need for alcohol abstinence and need for close outpatient follow up with her primary care provider and with her dietetics teacher. I think it would be prudent to keep her for 24 hours to see how she does with diuretic that was started today but the patient is eager to go home and Primary Team intends on discharging her. Nephrology is signing off.
[2021-06-27] MEDS ORDERED: FUROSEMIDE 20 MG TAB PO SCH (09:00)
== END 2021-06-26 14:15 | disposition home or self-care (01) | DRG 433 ==
LOC: M ED 06:24 → M ED INP 12:57 → ENRESERV 19:23 → M MSPAV 21:40
PROVIDERS: ADMIT Internal Medicine; ATTEND Internal Medicine
PROC: 0W9G3ZZ Drainage of Peritoneal Cavity, Percutaneous Approach (ICD-10-PCS; principal; 2021-06-25 15:00)
DX: K70.31 Alcoholic cirrhosis of liver with ascites (principal); E87.1 Hypo-osmolality and hyponatremia; N17.9 Acute kidney failure, unspecified; E88.09 Other disorders of plasma-protein metabolism, not elsewhere classified; E87.6 Hypokalemia; K52.9 Noninfective gastroenteritis and colitis, unspecified; F17.200 Nicotine dependence, unspecified, uncomplicated; Z79.899 Other long term (current) drug therapy; Z91.011 Allergy to milk products; F32.9 Major depressive disorder, single episode, unspecified; D50.9 Iron deficiency anemia, unspecified

== ENCOUNTER 2021-07-05 20:04 | Inpatient (IN) | payer MEDICARE, MEDICAID ==
[~2021-07-05] VITALS: Ht 160 cm; Wt 69.9 kg
[~2021-07-05 20:04] MED LIST changes: -AMOX875T2 PO; -FOLI1TAB11 PO; -THIA100TA PO
--- OUTSIDE RECORDS SUMMARY | 2021-07-05 20:10 | CCD ---
Author Author [facility] Organization [facility] Address Unknown Phone Unavailable Care Team Providers Care Manager Assessment Name Role Phone Jose Vazquez Unavailable PROBLEMS Type Condition ICD9-CM Code [id number] Code Onset Dates Condition S tatus W/U Status Risk SNOMED Code Notes Problem Dyslipidemia E78.5 Active confirmed 5985021 07 Problem Osteoporosis M81.0 Active confirmed 2228825 6 Problem Abnormal mammogram of left breast R92.8 Active confirmed 373472129 Problem Difficulty sleeping G47.9 Active confirmed 955081818 Problem Body aches R52 Active confirmed 22210356 Problem Tinnitus, bilateral H93.13 Active confirmed 3538067878527 Problem Abnormal mammogram R92.8 Active confirmed 1 57266491 Problem 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 Active confirmed 190 826292 Problem Smoker F17.200 Active confirmed 41354060 Problem Terminal ileitis with complication K50.019 Activ e confirmed 410576519 Problem Major depressive disorder, single episode, unspecified F32.9 Active confirmed 44002777 Problem 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 Active confirmed 2574879 4 Problem Alcohol abuse F10.10 Active confirmed 139621 05 Problem Nightmares F51.5 Active confirmed 093221247 Problem Cigarette nicotine dependence without complication F17.210 Active confirmed 52072388 Problem Iron deficiency anemia due to chronic blood loss D 50.0 Active confirmed 052292451 Problem Age-related osteoporosis without current pathological fracture M81.0 Active confirmed 552204840 Problem Pancolitis K51.00 Active confirmed 926712144 Problem Abnormal laboratory test result R89.9 Active confi rmed 997900377 Problem Polyp of splenic flexure of colon K63.5 Active confirmed 072038367 Problem Cigarette nicotine dependence, uncomplicated F17.2 10 Active confirmed 52145906 Problem Adenomatous polyp of cecum D12.0 Active confirmed 605196051 Problem Macrocytic anemia with vitamin B12 deficiency D51. 8 Active confirmed 35065483 Problem Adenomatous polyp of transverse colon D12.3 Ac tive confirmed 721973093 Problem Adenomatous polyp of ascending colon D12.2 Act howie confirmed 536136388 Problem Other ascites R18.8 Active confirmed 996809 000 Problem Pure hypercholesterolemia E78.00 Active confirmed 116001755 Problem Hypokalemia E87.6 Active confirmed 90521747 Problem Elevated blood pressure read ing in office with diagnosis of hypertension I10 Active confirmed 77780113 Problem Mild episode of recurrent major depressive disorder F33.0 Active confirmed 094315255 Problem Dyspnea, unspecified type R06.00 Active confirmed 457772432 Problem External hemorrhoid K64.4 Active confirmed 60611174 Problem Internal hemorrhoid K64.8 Active confirmed 36258416 Problem Diverticulosis K57.90 Active confirmed 31755 1000 ALLERGIES No Known Allergies ENCOUNTERS from 1950 to 2021-06-27 Encounter Location Date Provider Diagnosis [facility] Resident [address] [facility] [address] [phone] [place] [address] Mar, Jose Mckeoni Mild episode of recu rrent major depressive disorder F33.0 ; Abdominal bloating R14.0 ; Colon cancer screening Z12.11 ; Iron deficiency anemia due to chronic blood loss D50.0 and Cigarette nicotine de pendence, uncomplicated F17.210 IMMUNIZATIONS Vaccine Route Administration Date Status Pneumococcal Adult 0.5mL Pneumovax 23 IM Intramuscular February 18, 2020 Administered Pneumococcal 0.5mL Prevnar 13 IM Intramuscular Oct 22, 2016 A dministered SOCIAL HISTORY Tobacco Use: Social History Observation Description Date Details (start date - stop date) Current Smoker Sex Assigned At : Social History Observation Description Sex Assigned At Unknown Language: Question Answer Notes Languages spoken: Kinyarwanda Lutheran: Question Answer Notes Lutheran No judaism beliefs that would impact health care. Sexual [...] education provid ed 03/10/2017 REASON FOR REFERRAL from 1950 to 2021-06-[address] Andres, this pt h as a long history of rectal bleeding, hematemesis and history of colonic polyps and due fror another colonoscopy. Please evaluate and treat. Diagnosis 1 Colon cancer screening (Z12. 11) Referral Organization [facility] GME Resident Referring Provider First Name Joes Referring Provider Last Name George Referring Provider Specialty Family Medicine Referred Provider Dmitry ZunigaHermilo Crowell Referred Provider Specialty Gastroenterology Referral Priority Routine General Notes Perri Harrison 04/13/2021 3:5 7:09 PM > UHCP request sent to Perri Lentz 04/23/2021 11:58:19 AM > Referral faxed VITAL SIGNS Weight 159 lbs Mar, Weight-kg 72.12 kg Mar, Height 62 1/2 in Mar, BMI 28.61 kg/m2 Mar, Heart Rate 101 /min Mar, Respiratory Rate 18 /min Mar, Temperature 97.8 degrees Fahrenheit Mar, Oximetry 95 Mar, Blood pressure systolic 128 mm Hg Mar, Blood pressure diastolic 70 mm Hg Mar, MEDICATIONS Medication SIG (Take, Route, Frequency, Duration) [...] Information RESULTS No Results REASON FOR VISIT 3 MONTHS MEDICAL (GENERAL) HISTORY Type Description Date Medical [...] ma rashad depressive disorder (ICD-10 - F33.0) Pt wanted me to refill her medicine, but I am not the prescriber. She was asked to call her psychiatrist at [facility]. She agrees. Reports no worsening of depression. No suicidal thoughts Mar, Abdominal bloating (ICD-10 - R14.0) Pt has tried elimination diets with no help. Says she has tenesmus sometimes , no visible blood in the stools. Pt was asked to avoid gassy foods like legumes, brussel sprouts and cut down on dairy. Pt was encouraged to follow an elimination diet again and give it a try . Pt says she will start with lactose containing foods. Also pt will be referred to GI today for a pending colonoscopy because of a history of colonic polyps in the past and for being symptomatic. Mar, Colon cancer screening (ICD-10 - Z12.11) GI referral sent in to Dr Andres. Pt is due for one. Mar, Iron deficiency anemia due to chronic bl ood loss (ICD-10 - D50.0) Pt was asked to continue taking her Iron pills . She reports no side effects from iron before. However she was asked to start slow with alternate day therapy fri, fri, fri. Pt understands. Mar, Cigarette nicotine dependence, uncomplicated ( D-10 - F17.210) Pt has tried and failed and says chantix made her have weird thoughts( non suicidal ) so she stopped. Wants to try nicotine gums . PLAN OF TREATMENT Treatment Notes Assessment Notes Clinical Notes Mild episode of recurrent major depressive disorder Pt wanted me to refill her medicine, but I am not the prescriber. She was asked to call her psychiatrist at [facility]. She agrees. Reports no worsening of depression. No suicidal thoughts Abdominal bloating Pt has tried elimina tion diets with no help. Says she has tenesmus sometimes , no visible blood in the stools.Pt was asked to avoid gassy foods like legumes, brussel sprouts and cut down on dairy. Pt was encouraged to follow an elimination diet again and give it a try . Pt says she will start with lactose containing foods.Also pt will be referred to GI today for a pending colonoscopy because of a history of colonic polyps in the past and for being symptomatic. Colon cancer screening GI referral sent in to Dr Andres.Pt is due for one. Iron deficiency anemia due to chronic blood loss Pt was asked to continue taking her Iron pills . She reports no side effects from iron before. However she was asked to start slow with alternate day therapy fri, fri, fri.Pt understands. Cigarette nicotine dependence, uncomplicated Pt has tried and failed and says chantix made her have weird thoughts( non suicidal ) so she stopped. Wants to try nicotine gums . Referrals Referral Date Details Dear Dr Andres, this pt h as a long history of rectal bleeding, hematemesis and history of colonic polyps and due fror another colonoscopy. Please evaluate and treat., Hermilo Andres ([facility]) Next Appt Details 3 Months Reason:Annual Provider Name:Jose Vazquez, 2021-07-13 10: 30:00 AM, [address] [facility], , [place], [address], Follow Up:3 MonthsAnnual Insurance Providers Payer Name Payer Address Payer Phone Insured Name Patient Relati onship to Insured Coverage Start Date Coverage End Date [employer] [address] [facility] [id number] [address] [facility] [address] [facility] [id number] ALEX JAMES self
--- OUTSIDE RECORDS SUMMARY | 2021-07-05 20:11 | CCD ---
Author Author [facility] Organization [facility] Address Unknown Phone Unavailable Care Team Providers Care C T Tech Name Role Phone Primo Hdz NP Unavailable [...] Unavailable Unavailable Rafat Sheth MD Unavailable Unavailable Rfaat Sheth MD Unavailable Unavailable Rafat hSeth MD Unavailable Unavailable Rafat Sheth MD Unavailable [...] Unavailable Unavailable PorRafat pantoja MD Unavailable Unavailable PorRafat pantoja MD Unavailable Unavailable PorRafat pantoja MD Unavailable Unavailable PorRafat pantoja MD Unavailable [...] Unavailable LANDSBERG, Heidi Pike MD Unavailable Unavailable GOSHOW, J CHELO PA Unavailable [...] is protected by Article 27-F of the [facility] Public Health law. If you continue you may have access to information: Regarding HIV / AIDS; Provided by facilities licensed or operated by the [facility] Office of Mental Health; or Provided by the [facility] Office for People With Developmental Disabilities. If such information is present, then the following [facility] mandated warning applies: This information has been [...] law may result in a fine or detention sentence or both. A general authorization for [...] No Known Drug Aller gies active NETSMART ([facility] ) Family History Family Member Name Family Member Gender Family Member Status Date o f Status Description Data Source(s) Unknown Female Problem MEDENT ([facility]) Encounters Encounter Providers Location Date Indications Data Source(s ) Outpatient Attender: Solomon Hdz NP [facility] 06/20/2021 10:30:00 AM EDT - 06/20/2021 10:30:00 AM EDT [facility] ([facility]) Attender: Solomon Hdz NP 06/20/2021 12:00:00 AM EDT [facility] ([facility]) [place] [address] [place] [address] 06/11/2021 12:00:00 AM EDT [facility] [place] [address] [place] [address] 06/08/2021 12:00:00 AM EDT [facility] [place] [address] [place] [address] 06/06/2021 12:00:00 AM EDT [facility] [place] [address] [place] [address] 05/21/2021 12:00:00 AM EDT [facility]CW1 ([facility]) [place] [address] [place] [address] 05/14/2021 12:00:00 AM EDT [facility] Unknown [address] [facility] [place] [address] 2021 12:00:00 AM EDT eCW1 ([facility]) [place] [address] [facility] [address] 05/08/2021 12:00:00 AM EDT [facility] [place] [address] [facility] [address] 05/04/2021 12:00:00 AM EDT [facility] [place] [address] [facility] [address] 05/04/2021 12:00:00 AM EDT [facility]CW1 ([facility] [place] [address] [facility] [address] 04/20/2021 12:00:00 AM EDT [facility] [place] [address] [facility] [address] 04/13/2021 12:00:00 AM EDT [facility] [place] [address] [facility] [address] 04/12/2021 12:00:00 AM EDT eCW1 [facility]) Extended Individual Psychotherapy - 45 min Attender: Atilio Leone [facility] 04/05/2021 10:00:00 AM EDT - 04/05/2021 10:00:00 AM EDT [facility] ([facility]) Attender: Jessica Leone 04/05/2021 12:00:00 A M EDT [facility] ([facility]) Outpatient [address] [facility] [address] 03/14/2021 12:00:00 AM EDT [facility]1 ([facility] [place] [address] [facility] [address] 03/13/2021 12:00:00 AM EDT [facility]CW1 ([facility] [place] [address] [facility] [address] 03/13/2021 12:00:00 AM EDT eCW1 ([facility]) [place] [address] [facility] [address] 03/08/2021 12:00:00 AM EDT eCW1 ([facility]) Outpatient Attender: Solomon Hdz NP [facility] 03/07/2021 10:30:00 AM EDT - 03/07/2021 10:30:00 AM EDT [facility] ([facility]) Attender: Solomon Hdz NP 03/07/2021 12:00:00 AM EDT [facility] ([facility]) Outpatient Attender: Solomon Hdz NP [facility] 01/16/2021 01:30:00 AM EDT - 01/16/2021 01:30:00 AM EDT [facility] ([facility]) Attender: Solomon Hdz NP 01/16/2021 12:00:00 AM EDT [facility] ([facility]) Extended Individual Psychotherapy - 45 min Attender: Atilio Hammondcarlos [facility] 01/09/2021 09:00:00 AM EDT - 01/09/2021 09:00:00 AM EDT [facility] ([facility]) Attender: Jessica Leone 01/09/2021 12:00:00 A M EDT [facility] ([facility]) Out[place] [address] [facility] [address] 01/01/2021 12:00:00 AM EDT eCW1 ([facility]) Extended Individual Psychotherapy - 45 min Attender: Atilio Leone [facility] 12/26/2020 09:00:00 AM EDT - 12/26/2020 09:00:00 AM EDT [facility] ([facility]) Attender: Jessica Leone 12/26/2020 12:00:00 A M EDT [facility] ([facility]) [place] [address] [facility] [address] 12/21/2020 12:00:00 AM EDT eCW1 ([facility]) Outpatient Attender: Solomon Hdz NP [facility] 12/19/2020 01:00:00 AM EDT - 12/19/2020 01:00:00 AM EDT [facility] ([facility]) Attender: Solomon Hdz NP 12/19/2020 12:00:00 AM EDT [facility] ([facility]) [place] [address] [facility] [address] 12/15/2020 12:00:00 AM EDT eCW1 ([facility]) Brief Individual Psychotherapy - 30 min Attender: Jessica wall [facility] 12/12/2020 12:45:00 PM EDT - 12/12/2020 12:45:00 PM EDT [facility] ([facility]) Attender: Jessica Leone 12/12/2020 12:00:00 A M EDT [facility] ([facility]) [place] [address] [facility] [address] 12/08/2020 12:00:00 AM EDT eCW1 ([facility]) Outpatient Attender: UNKNOWN CPSCAORT-LABEJN 12/06/2020 09:42:00 AM E [facility] Inpatient Attender: Rafat Sheth MDAdmitter: Rafat dewitt MD ED-[facility] 12/05/2020 07:41:00 PM EDT - 12/08/2020 09:25:00 AM EDT F10.20 [facility] F10.20 Patient discharged. [place] [address] [facility] [address] 12/05/2020 12:00:00 AM EDT eCW1 ([facility]) Outpatient Attender: Solomon Hdz NP [facility] 11/21/2020 01:00:00 AM EDT - 11/21/2020 01:00:00 AM EDT [facility] ([facility]) Outpatient Attender: Solomon Hdz NP [facility] 11/21/2020 01:00:00 AM EDT - 11/21/2020 01:00:00 AM EDT [facility] ([facility]) Attender: Solomon Hdz NP 11/21/2020 12:00:00 AM EDT [facility] ([facility]) Extended Individual Psychotherapy - 45 min Attender: Atilio Hammondcarlos [facility] 11/14/2020 09:00:00 AM EDT - 11/14/2020 09:00:00 AM EDT [facility] ([facility]) Attender: Jessica Leone 11/14/2020 12:00:00 A M EDT [facility] ([facility]) Extended Individual Psychotherapy - 45 min Attender: Atilio Hammondcarlos [facility] 10/19/2020 08:45:00 AM EST - 10/19/2020 08:45:00 AM EST [facility] ([facility]) Attender: Jessica Leone 10/19/2020 12:00:00 A M EST [facility] ([facility]) Outpatient Attender: Solomon Hdz NP [facility] 10/17/2020 01:00:00 AM EST - 10/17/2020 01:00:00 AM EST [facility] ([facility]) Attender: Solomon Hdz NP 10/17/2020 12:00:00 AM EST [facility] ([facility]) [place] [address] [facility] [address] 10/11/2020 12:00:00 AM EST eCW1 ([facility]) Outpatient [address] [facility] [address] 10/02/2020 12:00:00 AM EST eCW1 ([facility]) Attender: Jessica Leone 09/27/2020 12:00:00 A M EST [facility] ([facility]) TEMPMHCTelemed 30" Psychotherapy Attender: Jessica Leone [facility] 09/26/2020 09:00:00 AM EST - 09/26/2020 09:00:00 AM EST [facility] ([facility] [place] [address] [facility] [address] 09/14/2020 12:00:00 AM EST [facility] [place] [address] [facility] [address] 09/11/2020 12:00:00 AM EST [facility]CW1 [facility]) Outpatient Attender: Solomon Hdz NP [facility] 09/05/2020 12:30:00 PM EST - 09/05/2020 12:30:00 PM EST [facility] ([facility]) Attender: Solomon Hdz NP 09/05/2020 12:00:00 AM EST [facility] ([facility]) [place] [address] [facility] [address] 08/31/2020 12:00:00 AM EST [facility] [place] [address] [facility] [place] [address] 08/30/2020 12:00:00 AM EST [facility]CW1 ([facility] Outpatient [address] [facility] [address] 08/30/2020 12:00:00 AM EST [facility]CW1 [facility] Extended Individual Psychotherapy - 45 min Attender: Atilio Leone [facility] 08/22/2020 09:00:00 AM EST - 08/22/2020 09:00:00 AM EST [facility] ([facility]) Attender: Jessica Leone 08/22/2020 12:00:00 A M EST [facility] ([facility]) [place] [address] [facility] [address] 08/21/2020 12:00:00 AM EST eCW1 ([facility]) Outpatient Attender: Solomon Hdz NP [facility] 07/28/2020 11:30:00 AM EST - 07/28/2020 11:30:00 AM EST [facility] ([facility]) Attender: Solomon Hdz NP 07/28/2020 12:00:00 AM EST [facility] ([facility]) Extended Individual Psychotherapy - 45 min Attender: Atilio Leone [facility] 07/25/2020 09:00:00 AM EST - 07/25/2020 09:00:00 AM EST [facility] ([facility]) Attender: Jessica Leone 07/25/2020 12:00:00 A M EST [facility] ([facility]) Outpatient [address] [facility] [address] 07/11/2020 12:00:00 AM EST eCW1 ([facility]) Extended Individual Psychotherapy - 45 min Attender: Atilio Hammondcarlos [facility] 07/04/2020 09:00:00 AM EST - 07/04/2020 09:00:00 AM EST [facility] ([facility]) Attender: Jessica Leone 07/04/2020 12:00:00 A M EST [facility] ([facility]) [place] [address] [facility] [address] 06/21/2020 12:00:00 AM EDT eCW1 ([facility]) Extended Individual Psychotherapy - 45 min Attender: Atilio Leone [facility] 06/20/2020 09:00:00 AM EDT - 06/20/2020 09:00:00 AM EDT [facility] ([facility]) Attender: Jessica Leone 06/20/2020 12:00:00 A M EDT [facility] ([facility]) Extended Individual Psychotherapy - 45 min Attender: Atilio Leone [facility] 06/06/2020 12:00:00 PM EDT - 06/06/2020 12:00:00 PM EDT [facility] ([facility]) Attender: Jessica Leone 06/06/2020 12:00:00 A M EDT [facility] ([facility]) [place] [address] [facility] [address] 05/24/2020 12:00:00 AM EDT eCW1 ([facility]) 05/15/2020 01:00:00 AM EDT - 020 10:42:46 AM EDT NETSMART ([facility]) Inpatient Attender: CASPER YAN [facility] MDAttender: Shahzad TAVARES MDAttender: ER PHYSICIAN 04/26/2020 12:50:00 AM EDT [facility] ( in Healthcare facility) Attender: MONALISA BERG MDAttender: Shahzad TAVARES MDAdmitter: Shahzad TAVARES MDConsultant: Rajesh Goddard 04/26/2020 12:50:00 AM EDT [facility] Inpatient Attender: CASPER YAN [facility] MDAttender: CHELO OCONNOR PAAttender: ER PHYSICIANAdmitter: CHELO KEMP 0 04/25/2020 10:57:28 PM EDT [facility] Inpatient Attender: CASPER YAN [facility] MDAttender: Shahzad TAVARES MDAttender: ER PHYSICIANAdmitter: Shahzad TAVARES MD 0 04/25/2020 10:15:00 PM EDT - 05/12/2020 06:21:00 PM EDT GI BLEEDING [facility] GI BLEEDING Patient discharged. Inpatient Attender: CRISTIANE LARSON MDAdmitter: CRISTIANE LARSON MD ED-MSP 09/13/2019 11:30:00 AM EST - 09/17/2019 09:15:00 AM EST F1020 [facility] F1020 Patient discharged. Functional Status Immunizations Vaccine Date Status Description Data Source(s) 03/14/2021 12:33:00 PM EDT completed e CW1 ([facility]) 03/14/2021 12:33:00 PM EDT completed e CW1 ([facility]) 03/14/2021 12:33:00 PM EDT completed e CW1 ([facility]) 03/14/2021 12:33:00 PM EDT completed e CW1 ([facility]) 03/14/2021 12:33:00 PM EDT completed e CW1 ([facility]) 03/14/2021 12:33:00 PM EDT completed e CW1 ([facility]) 03/14/2021 12:33:00 PM EDT completed e CW1 ([facility]) 03/14/2021 12:33:00 PM EDT completed e CW1 ([facility]) 03/14/2021 12:33:00 PM EDT completed e CW1 ([facility]) 03/14/2021 12:33:00 PM EDT completed e CW1 ([facility]) 03/14/2021 12:33:00 PM EDT completed e CW1 ([facility]) 03/14/2021 12:33:00 PM EDT completed e CW1 ([facility]) COVID-19 VACCINE Moderna 11/24/2020 12:00:00 AM EDT completed [facility] Vaccine Series Complete: YESThis Data wa s Submitted to [facility]. COVID-19 VACCINE Moderna 10/27/2020 12:00:00 AM EST completed [facility] Vaccine Series Complete: NOThis Data was Submitted to [facility] [place] [facility]. Medications Medication Brand Name Start Date Product Form Dose Route Admi nistrative Instructions Pharmacy Instructions Status Indications Reaction Description Data Source(s) 20 mg 06/26/2021 12:00:00 AM EDT tablet 14 TAKE ONE TABLET BY MOUTH EVERY DAY TAKE ONE TABLET BY MOUTH EVERY DAY SOLD: 06/27/2021 [facility] 325 mg (65 mg iron) 06/26/2021 12:00:00 AM EDT tablet 14 TAKE ONE TABLET BY MOUTH EVERY DAY TAKE ONE TABLET BY MOUTH EVERY DAY SOLD: 06/27/2021 [facility] 2 mg 06/26/2021 12:00:00 AM EDT capsule 14 TAKE 1 CAPSULE BY MOUTH DIRECTED NEEDED FOR DIARRHEA FOR 14 DAYS TAKE 1 CAPSULE BY MOUTH DIRECTED NEEDED FOR DIARRHEA FOR 14 DAYS SOLD: 06/27/2021 [facility] 25 mg 06/26/2021 12:00:00 AM EDT tablet 7 TAKE ONE-HALF TABLET BY MOUTH EVERY DAY TAKE ONE-HALF TABLET BY MOUTH EVERY DAY SOLD: 06/27/2021 [facility] Amoxicillin 875 MG / Clavulanate 125 MG [...] TABLET BY MOUTH ONCE A DAY SOLD: 06/27/2021 [facility] Citalopram 20 MG Oral Tablet [...] Mupiroci n 2 % eCW1 ([facility]) Mupirocin 0.02 MG/MG Topical Ointment Mupirocin 2 % Mupiroci n 2 % 05/04/2021 12:00:00 AM EDT suspended Mupir ocin 2 % eCW1 ([facility]) 2 % 05/04/2021 12:00:00 AM EDT ointment [...] Mupir ocin 2 % eCW1 ([facility]) Mupirocin 0.02 MG/MG Topical Ointment Mupirocin 2 % Mupiroci n 2 % 05/04/2021 12:00:00 AM EDT active Mupiroci n 2 % eCW1 ([facility]) Mupirocin 0.02 MG/MG Topical Ointment Mupirocin 2 % Mupiroci n 2 % 05/04/2021 12:00:00 AM EDT suspended Mupir ocin 2 % eCW1 ([facility]) Mupirocin 0.02 MG/MG Topical Ointment Mupirocin 2 % Mupiroci n 2 % 05/04/2021 12:00:00 AM EDT suspended Mupir ocin 2 % eCW1 ([facility]) Mupirocin 0.02 MG/MG Topical Ointment Mupirocin 2 % Mupiroci n 2 % 05/04/2021 12:00:00 AM EDT active Mupiroci n 2 % eCW1 ([facility]) Mupirocin 0.02 MG/MG Topical Ointment Mupirocin 2 % Mupiroci n 2 % 05/04/2021 12:00:00 AM EDT active Mupiroci n 2 % eCW1 ([facility]) Mupirocin 0.02 MG/MG Topical Ointment Mupirocin 2 % Mupiroci n 2 % 05/04/2021 12:00:00 AM EDT active Mupiroci n 2 % eCW1 ([facility]) Mupirocin 0.02 MG/MG Topical Ointment Mupirocin 2 % Mupiroci n 2 % 05/04/2021 12:00:00 AM EDT active Mupiroci n 2 % eCW1 ([facility]) buspirone hydrochloride 10 MG Oral Tablet BUSPIRONE HCL 04/18/2021 12:00:00 AM EDT tablet 60 TAKE ONE TABLET BY MOUTH TWI CE A DAY TAKE ONE TABLET BY MOUTH TWICE A DAY SOLD: 06/27/2021 [facility] buspirone hydrochloride 10 MG [...] ONE TABLET BY MOUTH AT BEDTIME SOLD: 06/27/2021 [facility] 15 mg 04/18/2021 12:00:00 AM [...] Marco jennifer 2 MG eCW1 ([facility]) Nicotine 2 MG [facility] Nicotine 2 [facility] Nicotine 2 M G 04/13/2021 12:00:00 AM EDT suspended [facility] N icotine 2 MG eCW1 ([facility]) Nicotine 2 MG Chewing Gum [facility] Nicotine 2 MG [facility] Nicotine 2 M G 04/13/2021 12:00:00 AM EDT suspended [facility] icotine 2 MG eCW1 ([facility]) Nicotine 2 MG Chewing Gum [facility] Nicotine 2 MG [facility] Nicotine 2 M G 04/13/2021 12:00:00 AM EDT active [facility] Marco jennifer 2 MG eCW1 ([facility]) 2 mg 04/13/2021 12:00:00 AM EDT gum [...] N icotine 2 MG eCW1 ([facility]) Nicotine 2 MG Chewing Gum [facility] Nicotine 2 MG [facility] Nicotine 2 M G 04/13/2021 12:00:00 AM EDT active [facility] Marco jennifer 2 MG eCW1 ([facility]) Nicotine 2 MG Chewing Gum [facility] Nicotine 2 MG [facility] Nicotine 2 M G 04/13/2021 12:00:00 AM EDT active [facility] Marco jennifer 2 MG eCW1 ([facility]) Nicotine 2 MG Chewing Gum [facility] Nicotine 2 MG [facility] Nicotine 2 M G 04/13/2021 12:00:00 AM EDT suspended [facility] icotine 2 MG eCW1 ([facility]) ferrous gluconate 324 MG Oral Tablet Ferrous Gluconate 324 (38 Fe) MG Ferrous Gluconate 324 (38 Fe) MG 04/13/2021 12:00:00 AM EDT active Ferrous Gluconate 324 (38 Fe) MG eCW1 ([facility]) Nicotine 2 MG Chewing Gum [facility] Nicotine 2 MG [facility] Nicotine 2 M G 04/13/2021 12:00:00 AM EDT active [facility] Marco jennifer 2 MG eCW1 ([facility]) 324 mg (38 mg iron) 04/13/2021 12:00:00 [...] N icotine 2 MG eCW1 ([facility]) Nicotine 2 MG Chewing Gum [facility] Nicotine 2 MG [facility] Nicotine 2 M G 04/13/2021 12:00:00 AM EDT suspended [facility] N icotine 2 MG eCW1 ([facility]) Nicotine 2 MG Chewing Gum [facility] Nicotine 2 MG [facility] Nicotine 2 M G 04/13/2021 12:00:00 AM EDT active [facility] Marco jennifer 2 MG eCW1 ([facility]) ferrous gluconate 324 MG Oral Tablet Ferrous Gluconate 324 (38 Fe) MG Ferrous Gluconate 324 (38 Fe) MG 04/13/2021 12:00:00 AM EDT active Ferrous Gluconate 324 (38 Fe) MG eCW1 ([facility]) 80 mg 03/21/2021 12:00:00 AM EDT tablet [...] 1 mg by mouth completed <td ID="Medicat ionRxNorm_4">424009</td><td ID="MedicationMedication_4">prazosin</td><td ID="MedicationRoute_4">by mouth</td><td ID="MedicationRouteConcept_4">V98546</td><td ID="MedicationStartDate_4">01/16/2021</td><td ID="MedicationStopDate_4">04/16/2021</td><td ID="MedicationDosageFrequency_4">at bedtime</td><td ID="MedicationDuration_4">30</td><td ID="MedicationFormulaStrength_4">1 mg</td><td ID="MedicationDosageForm_4">capsule</td><td ID="MedicationDosageFormCode_4"></td><td ID="MedicationDosageDescription_4"></td><td ID="MedicationMedicationId_4">[id number]</td><td ID="MedicationAccount_4">[id number]</td><td ID="MedicationNpid_4">[id number]</td><td ID="MedicationAuthorFirstName_4">Solomon</td><td ID="MedicationAuthorLastName_4">Hdz</td><td ID="MedicationTaxonomyCode_4">[id number]</td><td ID="MedicationTaxonomyDesc_4">Nurse Practitioner</td><td ID="MedicationPhoneNumber_4">[phone]</td> [facility] ([facility]) 15 mg 01/08/2021 12:00:00 AM EDT tablet [...] TABLET BY MOUTH AT BEDTIME SOLD: 12/10/2020 [facility] 15 mg 10/18/2020 12:00:00 AM EST [...] ID="MedicationDosageFrequency_2"></td><td ID="MedicationDuration_2">30</td><td ID="MedicationFormulaStrength_2">20 mg</td><td ID="MedicationDosageForm_2">tablet</td><td ID="MedicationDosageFormCode_2"></td><td ID="MedicationDosageDescription_2"></td><td ID="MedicationMedicationId_2">[id number]</td><td ID="MedicationAccount_2">[id number]</td><td ID="MedicationNpid_2">[id number]</td><td ID="MedicationAuthorFirstName_2">Solomon</td><td ID="MedicationAuthorLastName_2">Hdz</td><td ID="MedicationTaxonomyCode_2">[id number]</td><td ID="MedicationTaxonomyDesc_2">Nurse Practitioner</td><td ID="MedicationPhoneNumber_2">[phone]</td> [facility] ([facility]) Citalopram 20 MG Oral Tablet citalopram 10/03/2020 12:00:00 AM EST 20 mg by mouth completed <td ID="Medica tionRxNorm_2">[id number]</td><td ID="MedicationMedication_2">citalopram</td><td ID="MedicationRoute_2">by mouth</td><td ID="MedicationRouteConcept_2">A47274</td><td ID="MedicationStartDate_2">10/03/2020</td><td ID="MedicationStopDate_2">07/17/2021</td><td ID="MedicationDosageFrequency_2">once a day</td><td ID="MedicationDuration_2">30</td><td ID="MedicationFormulaStrength_2">20 mg</td><td ID="MedicationDosageForm_2">tablet</td><td ID="MedicationDosageFormCode_2"></td><td ID="MedicationDosageDescription_2"></td><td ID="MedicationMedicationId_2">[id number]</td><td ID="MedicationAccount_2">[id number]</td><td ID="MedicationNpid_2">[id number]</td><td ID="MedicationAuthorFirstName_2">Solomon</td><td ID="MedicationAuthorLastName_2">Hdz</td><td ID="MedicationTaxonomyCode_2">[id number]</td><td ID="MedicationTaxonomyDesc_2">Nurse Practitioner</td><td ID="MedicationPhoneNumber_2">[phone]</td> [facility] ([facility]) buspirone hydrochloride 10 MG Oral Tablet buspirone 2020 12:00:00 AM EST 10 mg completed <td ID="Medica tionRxNorm_3">[id number]</td><td ID="MedicationMedication_3">buspirone</td><td ID="MedicationRoute_3"></td><td ID="MedicationRouteConcept_3"></td><td ID="MedicationStartDate_3">10/03/2020</td><td ID="MedicationStopDate_3">07/17/2021</td><td ID="MedicationDosageFrequency_3"></td><td ID="MedicationDuration_3">30</td><td ID="MedicationFormulaStrength_3">10 mg</td><td ID="MedicationDosageForm_3">tablet</td><td ID="MedicationDosageFormCode_3"></td><td ID="MedicationDosageDescription_3"></td><td ID="MedicationMedicationId_3">[id number]</td><td ID="MedicationAccount_3">[id number]</td><td ID="MedicationNpid_3">[id number]</td><td ID="MedicationAuthorFirstName_3">Solomon</td><td ID="MedicationAuthorLastName_3">Hdz</td><td ID="MedicationTaxonomyCode_3">[id number]</td><td ID="MedicationTaxonomyDesc_3">Nurse Practitioner</td><td ID="MedicationPhoneNumber_3">[phone]</td> [facility] ([facility]) Mirtazapine 15 MG Oral Tablet mirtazapine 10/03/2020 12:00:00 AM EST 15 mg completed <td ID="Medicat ionRxNorm_1">[id number]</td><td ID="MedicationMedication_1">mirtazapine</td><td ID="MedicationRoute_1"></td><td ID="MedicationRouteConcept_1"></td><td ID="MedicationStartDate_1">10/03/2020</td><td ID="MedicationStopDate_1">07/17/2021</td><td ID="MedicationDosageFrequency_1"></td><td ID="MedicationDuration_1">30</td><td ID="MedicationFormulaStrength_1">15 mg</td><td ID="MedicationDosageForm_1">tablet</td><td ID="MedicationDosageFormCode_1"></td><td ID="MedicationDosageDescription_1"></td><td ID="MedicationMedicationId_1">[id number]</td><td ID="MedicationAccount_1">[id number]</td><td ID="MedicationNpid_1">[id number]</td><td ID="MedicationAuthorFirstName_1">Solomon</td><td ID="MedicationAuthorLastName_1">Hdz</td><td ID="MedicationTaxonomyCode_1">[id number]</td><td ID="MedicationTaxonomyDesc_1">Nurse Practitioner</td><td ID="MedicationPhoneNumber_1">[phone]</td> [facility] 80 mg 09/06/2020 12:00:00 AM EST tablet [...] EST active Prolia 60mg/ml eCW1 ([facility]) Prolia 60mg/ml UNK 09/01/2020 12:00:00 AM EST active Prolia 60mg/ml eCW1 ([facility]) Prolia 60mg/ml UNK 09/01/2020 12:00:00 AM EST active Prolia 60mg/ml eCW1 ([facility]) Prolia 60mg/ml K 09/01/2020 12:00:00 AM EST active Prolia 60mg/ml eCW1 ([facility]) Prolia 60mg/ml UNK 09/01/2020 12:00:00 AM EST active Prolia 60mg/ml eCW1 ([facility]) Prolia 60mg/ml UNK 09/01/2020 12:00:00 AM EST active Prolia 60mg/ml eCW1 ([facility]) Prolia 60mg/ml K 09/01/2020 12:00:00 AM EST active Prolia 60mg/ml eCW1 ([facility]) Prolia 60mg/ml UNK 09/01/2020 12:00:00 AM EST active Prolia 60mg/ml eCW1 ([facility]) Prolia 60mg/ml UNK 09/01/2020 12:00:00 AM EST active Prolia 60mg/ml eCW1 ([facility]) Prolia 60mg/ml UNK 09/01/2020 12:00:00 AM EST active Prolia 60mg/ml eCW1 ([facility]) Prolia 60mg/ml UNK 09/01/2020 12:00:00 AM EST active Prolia 60mg/ml eCW1 ([facility]) Prolia 60mg/ml UNK 09/01/2020 12:00:00 AM EST active Prolia 60mg/ml eCW1 ([facility]) Prolia 60mg/ml UNK 09/01/2020 12:00:00 AM EST active Prolia 60mg/ml eCW1 ([facility]) Prolia 60mg/ml UNK 09/01/2020 12:00:00 AM EST active Prolia 60mg/ml eCW1 ([facility]) Prolia 60mg/ml UNK 09/01/2020 12:00:00 AM EST active Prolia 60mg/ml eCW1 ([facility]) Prolia 60mg/ml UNK 09/01/2020 12:00:00 AM EST active Prolia 60mg/ml eCW1 ([facility]) Prolia 60mg/ml UNK 09/01/2020 12:00:00 AM EST active Prolia 60mg/ml eCW1 ([facility]) Prolia 60mg/ml UNK 09/01/2020 12:00:00 AM EST active Prolia 60mg/ml eCW1 ([facility]) Prolia 60mg/ml UNK 09/01/2020 12:00:00 AM EST active Prolia 60mg/ml eCW1 ([facility]) 2.5 % 09/01/2020 12:00:00 AM EST cream with perineal carmen licator 28 APPLY 1 APPLICATION EXTERNALLY TO AFFECTED AREA(S) TWICE A DAY NEEDED FOR 7 DAYS APPLY 1 APPLICATION EXTERNALLY TO AFFECTED AREA(S) TWICE A DAY NEEDED FOR 7 DAYS SOLD: 09/06/2020 [facility] Prolia 60mg/ml UNK 09/01/2020 12:00:00 AM EST active Prolia 60mg/ml eCW1 ([facility]) Prolia 60mg/ml UNK 09/01/2020 12:00:00 AM EST active Prolia 60mg/ml eCW1 ([facility]) Prolia 60mg/ml UNK 09/01/2020 12:00:00 AM EST active Prolia 60mg/ml eCW1 ([facility]) Prolia 60mg/ml UNK 09/01/2020 12:00:00 AM EST active Prolia 60mg/ml eCW1 ([facility]) Prolia 60mg/ml UNK 09/01/2020 12:00:00 AM EST active Prolia 60mg/ml eCW1 ([facility]) Prolia 60mg/ml UNK 09/01/2020 12:00:00 AM EST active Prolia 60mg/ml eCW1 ([facility]) Prolia 60mg/ml UNK 09/01/2020 12:00:00 AM EST active Prolia 60mg/ml eCW1 ([facility]) ferrous gluconate 324 MG Oral Tablet Ferrous Gluconate 324 (38 Fe) MG Ferrous Gluconate 324 (38 Fe) MG 08/31/2020 12:00:00 AM EST active Ferrous Gluconate 324 (38 Fe) MG eCW1 ([facility]) ferrous gluconate 324 MG Oral Tablet Ferrous Gluconate 324 (38 Fe) MG Ferrous Gluconate 324 (38 Fe) MG 08/31/2020 12:00:00 AM EST active Ferrous Gluconate 324 (38 Fe) MG eCW1 ([facility]) ferrous gluconate 324 MG Oral Tablet Ferrous Gluconate 324 (38 Fe) MG Ferrous Gluconate 324 (38 Fe) MG 08/31/2020 12:00:00 AM EST active Ferrous Gluconate 324 (38 Fe) MG eCW1 ([facility]) ferrous gluconate 324 MG Oral Tablet Ferrous Gluconate 324 (38 Fe) MG Ferrous Gluconate 324 (38 Fe) MG 08/31/2020 12:00:00 AM EST active Ferrous Gluconate 324 (38 Fe) MG eCW1 ([facility]) ferrous gluconate 324 MG Oral Tablet Ferrous Gluconate 324 (38 Fe) MG Ferrous Gluconate 324 (38 Fe) MG 08/31/2020 12:00:00 AM EST active Ferrous Gluconate 324 (38 Fe) MG eCW1 ([facility]) ferrous gluconate 324 MG Oral Tablet Ferrous Gluconate 324 (38 Fe) MG Ferrous Gluconate 324 (38 Fe) MG 08/31/2020 12:00:00 AM EST active Ferrous Gluconate 324 (38 Fe) MG eCW1 ([facility]) ferrous gluconate 324 MG Oral Tablet Ferrous Gluconate 324 (38 Fe) MG Ferrous Gluconate 324 (38 Fe) MG 08/31/2020 12:00:00 AM EST active Ferrous Gluconate 324 (38 Fe) MG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 ([facility]) Unclassified biologics 09/14/2020 12:00:00 AM EST eCW1 ([facility]) MHC Telemed E/M Lvl 3--Est pt 09/05/2020 12:00:00 AM EST - 09/05/2020 12:00:00 AM EST [facility] ([facility]) Telemed A/O 30" 09/05/2020 12:00:00 AM EST [facility] ([facility]) MHC Telemed E/M Lvl 3--Est pt 09/05/2020 12:00:[address] [facility] ([facility]) Extended Individual Psychotherapy - 45 min 08/22/2020 12:00:00 AM EST - 08/22/2020 12:00:00 AM EST [facility] ([facility]) Extended Individual Psychotherapy - 45 min 0 12:00:00 AM EST [facility] ([facility]) MHC Telemed E/M Lvl 3--Est pt 07/28/2020 12:00:00 AM EST - 07/28/2020 12:00:00 AM EST [facility] ([facility]) Telemed A/O 30" 07/28/2020 12:00:00 AM EST [facility] ([facility]) MHC Telemed E/M Lvl 3--Est pt 07/28/2020 12:00:[address] [facility] ([facility]) Extended Individual Psychotherapy - 45 min 07/25/2020 12:00:00 AM EST - 07/25/2020 12:00:00 AM EST [facility] ([facility]) Extended Individual Psychotherapy - 45 min 0 12:00:00 AM EST [facility] ([facility]) Extended Individual Psychotherapy - 45 min 07/04/2020 12:00:00 AM EST - 07/04/2020 12:00:00 AM EST [facility] ([facility]) Extended Individual Psychotherapy - 45 min 0 12:00:00 AM EST [facility] ([facility]) Extended Individual Psychotherapy - 45 min 06/20/2020 12:00:00 AM EDT - 06/20/2020 12:00:00 AM EDT [facility] ([facility]) Extended Individual Psychotherapy - 45 min 0 12:00:00 AM EDT [facility] ([facility]) Extended Individual Psychotherapy - 45 min 06/06/2020 12:00:00 AM EDT - 06/06/2020 12:00:00 AM EDT [facility] ([facility]) Extended Individual Psychotherapy - 45 min 0 12:00:00 AM EDT [facility] ([facility]) Results ID Date Data Source [id number] 06/24/2021 12:57:00 PM EDT [facility] Name Value Range Interpretation Code Description Data Apurva rce(s) Supporting Document(s) SARS coronavirus 2 RNA [Presence] in Res piratory specimen by MINDY with probe detection NEGATIVE [facility] This lab was ordered by [facility] a nd reported by [facility]. ID Date Data Source [id number] 06/12/2021 11:48:00 AM EDT [facility] Name Value Range Interpretation Code Description Data Apurva rce(s) Supporting Document(s) SARS coronavirus 2 RNA [Presence] in Res piratory specimen by MINDY with probe detection NEGATIVE [facility] This lab was ordered by [facility] a nd reported by [facility]. ID Date Data Source [id number] 06/01/2021 06:28:00 PM EDT [facility] Name Value Range Interpretation Code Description Data Apurva rce(s) Supporting Document(s) SARS coronavirus 2 RNA [Presence] in Res piratory specimen by MINDY with probe detection NEGATIVE [facility] This lab was ordered by [facility] a nd reported by [facility]. ID Date Data Source TOTAL IRON BINDING CAPACIT 2021 12:00:00 AM EDT eCW1 ( [facility]) Name Value Range Interpretation Code Description Data Apurva rce(s) Supporting Document(s) 24.7 13.2-45.0 PERCENT SATURATION eCW1 ([facility]) 72 50-170 IRON (FE) eCW1 ([facility]) 291 250-450 TOTAL IRON BINDING CAPACI TY eCW1 ([facility]) ID Date Data Source FERRITIN 2021 12:00:00 AM EDT eCW1 (Pending sale to [facility]) Name Value Range Interpretation Code Description Data Apurva rce(s) Supporting Document(s) 109 8-252 FERRITIN eCW1 ([facility]) ID Date Data Source CBC with Differential 05/04/2021 12:00:00 AM EDT eCW1 ([facility]) Name Value Range Interpretation Code Description Data Apurva rce(s) Supporting Document(s) 14.1 4.0-10.0 WHITE BLOOD COUNT eCW1 ([facility]) 41.0 36.0-47.0 HEMATOCRIT eCW1 ([facility]) 3.99 4.00-5.40 RED BLOOD COUNT eCW1 ([facility]) 13.7 12.0-15.5 HEMOGLOBIN eCW1 ([facility]) 34.3 27.0-33.0 MEAN CORPUSCULAR HEMOGLOB IN eCW1 ([facility]) 102.8 80.0-96.0 MEAN CORPUSCULAR VOLUME e CW1 ([facility]) 33.4 32.0-36.5 MEAN CORPUSCULAR HGB CONC eCW1 ([facility]) 74.7 36.0-66.0 NEUTROPHILS % eCW1 ([facility]) 407 150-450 PLATELET COUNT, AUTOMATED eCW1 ([facility]) 12.7 11.5-14.5 RED CELL DISTRIBUTION WID TH eCW1 ([facility]) 0.9 0.0-3.0 EOS % eCW1 ([facility]) 7.9 2.0-8.0 MONO % eCW1 ([facility]) 15.2 24.0-44.0 LYMPH % eCW1 ([facility]) 1.1 0.0-0.8 MONO # eCW1 ([facility]) 10.5 1.5-8.5 NEUTROPHILS # eCW1 ([facility]) 2.2 1.5-5.0 LYMPH # eCW1 ([facility]) 0.7 0.0-1.0 BASO % eCW1 ([facility]) 0.1 0.0-0.5 EOS # eCW1 ([facility]) 0.1 0.0-0.2 BASO # eCW1 ([facility]) ID Date Data Source GASTROINTESTINAL GI PANEL (RAD[facility]) 05/04/2021 12:00:00 AM EDT eCW1 ([facility]) Name Value Range Interpretation Code Description Data Apurva rce(s) Supporting Document(s) This Gastrointestinal PCR Panel detects the following bacteria, GASTROINTESTINAL (GI) PANEL eCW1 ([facility]) ID Date Data Source C REACTIVE PROTEIN QUANTITATIV (At [facility]) 05/04/2021 12:00 :00 AM EDT eCW1 ([facility]) Name Value Range Interpretation Code Description Data Apurva rce(s) Supporting Document(s) 4.93 0.00-0.30 C REACTIVE PROTEIN QUANTI TATIV eCW1 ([facility]) ID Date Data Source Comprehensive Metabolic Profile (CMP) 05/04/2021 12:00:00 AM EDT eCW1 ([facility]) Name Value Range Interpretation Code Description Data Apurva rce(s) Supporting Document(s) 0.59 0.55-1.30 CREATININE FOR GFR eCW1 ([facility]) 6 7-18 BLOOD UREA NITROGEN eCW1 ([facility]) 103 70-100 GLUCOSE, FASTING eCW1 (Pending sale to [facility]) 3.9 3.5-5.1 POTASSIUM SERUM eCW1 ([facility]) 135 136-145 SODIUM LEVEL eCW1 ([facility]) > 60.0 >45 GLOMERULAR FILTRATION RATE eCW 1 ([facility]) 8.6 8.8-10.2 CALCIUM LEVEL eCW1 ([facility]) 25 21-32 CARBON DIOXIDE LEVEL eCW1 ([facility]) 102 98-107 CHLORIDE LEVEL eCW1 ([facility]) 67 12-78 ALT/SGPT eCW1 ([facility]) 108 7-37 AST/SGOT eCW1 ([facility]) 195 45-117 ALKALINE PHOSPHATASE eCW1 ([facility]) 3.0 3.2-5.2 ALBUMIN eCW1 ([facility]) 1.1 0.2-1.0 BILIRUBIN,TOTAL eCW1 ([facility]) 7.0 6.4-8.2 TOTAL PROTEIN eCW1 ([facility]) 0.8 1.2-2.2 ALBUMIN/GLOBULIN RATIO eCW1 ([facility]) ID Date Data Source LIPASE 05/04/2021 12:00:00 AM EDT eCW1 ([facility]ending [facility] to [facility]) Name Value Range Interpretation Code Description Data Apurva rce(s) Supporting Document(s) 117 73-393 LIPASE eCW1 ([facility]) ID Date Data Source ERYTHROCYTE SEDIMENTATION RATE 05/04/2021 12:00:00 AM EDT eC W1 ([facility]) Name Value Range Interpretation Code Description Data Apurva rce(s) Supporting Document(s) 48 0-30 ERYTHROCYTE SEDIMENTATION RATE eCW1 ([facility]) ID Date Data Source [id number] 12/07/2020 07:38:00 AM EDT [facility] Name Value Range Interpretation Code Description Data Apurva rce(s) Supporting Document(s) White Blood Count 3.5-10.5 Normal (applies to non-numeri c results) [facility] Red Blood Count 3.90-5.00 Normal (applies to non-numeric results) [facility] Hemoglobin 12.0-15.5 Normal (applies to non-numeric resul ts) [facility] Hematocrit 34.9-44.5 Normal (applies to non-numeric resul ts) [facility] Mean Corpuscular Volume 81.2-95.1 Above high normal [facility] Mean Corpuscular Hgb 25.6-32.2 Above high normal [facility] Mean Corpuscular Hgb Conc 32.0-36.0 Normal (applies to no n-numeric results) [facility] Red Cell Distribution Width 11.9-15.5 Normal (appli es to non-numeric results) [facility] Platelet Count 159 x10 3/uL 150-450 Normal (applies to non-numeric results) [facility] Mean Platelet Volume 9.4-12.4 Below low normal [facility] Neutrophils% (Auto) 31.0-71.0 Normal (applies to non-nume fortino results) [facility] Lymphocytes% (Auto) 20.0-55.0 Normal (applies to non-nume fortino results) [facility] Monocytes% (Auto) 4.0-12.0 Normal (applies to non-numeri c results) [facility] Eosinophils% (Auto) 1.0-8.0 Normal (applies to non-nume fortino results) [facility] Basophils% (Auto) 0.0-2.0 Normal (applies to non-numeri c results) [facility] Immature Granulocytes% (Auto) 0.0-2.0 Normal (carmen lies to non-numeric results) [facility] Neutrophils# (Auto) 1.50-6.20 Normal (applies to non-nume fortino results) [facility] Lymphocytes# (Auto) 1.20-4.00 Normal (applies to non-nume fortino results) [facility] Monocytes# (Auto) 0.00-0.90 Normal (applies to non-numeri c results) [facility] Eosinophils# (Auto) 0.00-0.50 Normal (applies to non-nume fortino results) [facility] Basophils# (Auto) 0.00-0.20 Normal (applies to non-numeri c results) [facility] Immature Granulocytes# (Auto) 0.00-7.00 No rmal (applies to non-numeric results) [facility] ID Date Data Source [id number] 12/07/2020 08:39:00 PM EDT [facility] Name Value Range Interpretation Code Description Data Apurva rce(s) Supporting Document(s) Hepatitis A Ab,IgG result Normal (applies to no n-numeric results) [facility] Result indicates immunity to hepatitis A infection from either vaccination or past exposure to hepatitis A. False-positive results may be observed in patients with CMV antibodies or heterophilic antibodies. REFERENCE VALUE Unvaccinated: Negative Vaccinated: Positive Test Performed by: [facility] [place] [address] Toy Designer: Darinel Murray M.D. Ph.D.; CLIA# [id number] ID Date Data Source [id number] 12/06/2020 12:54:00 PM EDT [facility] Value Range Interpretation Code Description Data Apurva rce(s) Supporting Document(s) HIV Screen result Nonreactive Normal (applies to non-numer ic results) [facility] Test Performed By: [facility] [address] [place] [address] Director: David Gold MD ID Date Data Source [id number] 12/06/2020 12:54:00 PM EDT [facility] Value Range Interpretation Code Description Data Apurva rce(s) Supporting Document(s) CPK result 62 U/L 26-192 Normal (applies to non-numeric resul ts) [facility] Test Performed By: [place] [address] Director: David Gold MD ID Date Data Source [id number] 12/06/2020 12:54:00 PM EDT [facility] Value Range Interpretation Code Description Data Apurva rce(s) Supporting Document(s) Hepatitis C Virus Ab result Nonreactive Norm al (applies to non-numeric results) [facility] Test Performed By: [place] [address] Director: David Gold MD ID Date Data Source [id number] 12/06/2020 12:54:00 PM EDT [facility] Value Range Interpretation Code Description Data Apurva rce(s) Supporting Document(s) Hep Bs Ag result T-Test Nonreactive Normal (applies to non -numeric results) [facility] Test Performed By: [facility] [address] [place] [address] Director: David Gold MD ID Date Data Source [id number] 12/06/2020 12:54:00 PM EDT [facility] Value Range Interpretation Code Description Data Apurva rce(s) Supporting Document(s) Syphilis Serology result Nonreactive Normal (applies to non-numeric results) [facility] Test Performed By: [facility] [address] [place] [address] Director: David Gold MD ID Date Data Source [id number] 12/05/2020 10:07:00 PM EDT [facility] Name Value Range Interpretation Code Description Data Apurva rce(s) Supporting Document(s) Sodium 138 mmol/L 136-145 Normal (applies to non-numeric resul ts) [facility] Potassium 3.5-5.1 Normal (applies to non-numeric resul ts) [facility] Chloride 99 mmol/L 98-107 Normal (applies to non-numeric resul ts) [facility] Carbon Dioxide CO2 21-32 Normal (applies to non-numer ic results) [facility] Anion Gap 5.0-16.0 Normal (applies to non-numeric resul ts) [facility] BUN 9 mg/dL 7-18 Normal (applies to non-numeric results) [facility] Creatinine,Serum 0.7-1.2 Normal (applies to non-numeric results) [facility] GFR >60 Normal (applies to non-numeric results) [facility] Glucose Level 114 mg/dL 60-99 Above high normal [facility] Reference range is only applicable when patient is fasting Note the following drug interference: Sulfasalazine Sulfapyridine Can see falsely depressed Can see falsely elevated result with up to 17% results with up to 11% decrease in measurement increase in measurement Recommend patients be collected for this test prior to administration of either drug. Calcium 8.5-10.1 Below low normal [facility] Bilirubin,Total 0.1-1.9 Normal (applies to non-numeric results) [facility] SGOT(AST) 90 U/L 15-37 Above high normal [facility] Note the following drug interference: Sulfasalazine Sulfapyridine Can see falsely depressed Can see falsely elevated result with up to 10% results with up to 10% decrease in measurement increase in measurement Recommend patients be collected for this test prior to administration of either drug. SGPT(ALT) 81 U/L 12-78 Above high normal [facility] Note the following drug interference: Sulfasalazine Sulfapyridine Can see falsely depressed Can see falsely elevated result with up to 29% results with up to 10% decrease in measurement increase in measurement Recommend patients be collected for this test prior to administration of either drug. Alkaline Phosphatase 127 U/L 38-126 Above high normal [facility] can increase Alkaline Phosp le vels up to 2 times the normal adult value. Normal values for children and adolescents are 2 to 3 times the normal adult value. Total Protein 6.0-8.2 Normal (applies to non-numeric re sults) [facility] Albumin Level 3.4-5.0 Normal (applies to non-numeric re sults) [facility] ID Date Data Source [id number] 12/05/2020 10:07:00 PM T [facility] Value Range Interpretation Code Description Data Apurva rce(s) Supporting Document(s) Bilirubin,Direct 0.05-0.20 Normal (applies to non-numeric results) [facility] ID Date Data Source [id number] 12/05/2020 10:07:00 PM EDT [facility] Name Value Range Interpretation Code Description Data Apurva rce(s) Supporting Document(s) Phosphorus 2.5-4.9 Normal (applies to non-numeric resul ts) [facility] ID Date Data Source [id number] 12/05/2020 10:07:00 PM EDT [facility] Value Range Interpretation Code Description Data Apurva rce(s) Supporting Document(s) Magnesium 1.8-2.4 Normal (applies to non-numeric resul ts) [facility] ID Date Data Source [id number] 12/05/2020 10:07:00 PM EDT [facility] Value Range Interpretation Code Description Data Apurva rce(s) Supporting Document(s) Thyroid Stimulate Hormone TSH 0.358-3.74 Above high normal [facility] ID Date Data Source [id number] 12/05/2020 09:40:00 PM EDT [facility] Value Range Interpretation Code Description Data Apurva rce(s) Supporting Document(s) White Blood Count 3.5-10.5 Normal (applies to non-numeri c results) [facility] Red Blood Count 3.90-5.00 Normal (applies to non-numeric results) [facility] Hemoglobin 12.0-15.5 Normal (applies to non-numeric resul ts) [facility] Hematocrit 34.9-44.5 Normal (applies to non-numeric resul ts) [facility] Mean Corpuscular Volume 81.2-95.1 Above high normal [facility] Mean Corpuscular Hgb 25.6-32.2 Above high normal [facility] Mean Corpuscular Hgb Conc 32.0-36.0 Normal (applies to no n-numeric results) [facility] Red Cell Distribution Width 11.9-15.5 Normal (appli es to non-numeric results) [facility] Platelet Count 198 x10 3/uL 150-450 Normal (applies to non-numeric results) [facility] Mean Platelet Volume 9.4-12.4 Below low normal [facility] Neutrophils% (Auto) 31.0-71.0 Normal (applies to non-nume fortino results) [facility] Lymphocytes% (Auto) 20.0-55.0 Normal (applies to non-nume fortino results) [facility] Monocytes% (Auto) 4.0-12.0 Normal (applies to non-numeri c results) [facility] Eosinophils% (Auto) 1.0-8.0 Normal (applies to non-nume fortino results) [facility] Basophils% (Auto) 0.0-2.0 Normal (applies to non-numeri c results) [facility] Immature Granulocytes% (Auto) 0.0-2.0 Normal (carmen lies to non-numeric results) [facility] Neutrophils# (Auto) 1.50-6.20 Normal (applies to non-nume fortino results) [facility] Lymphocytes# (Auto) 1.20-4.00 Below low normal [facility] Monocytes# (Auto) 0.00-0.90 Normal (applies to non-numeri c results) [facility] Eosinophils# (Auto) 0.00-0.50 Normal (applies to non-nume fortino results) [facility] Basophils# (Auto) 0.00-0.20 Normal (applies to non-numeri c results) [facility] Immature Granulocytes# (Auto) 0.00-7.00 No rmal (applies to non-numeric results) [facility] ID Date Data Source [id number] 12/08/2020 03:15:00 PM EDT [facility] Name Value Range Interpretation Code Description Data Apurva rce(s) Supporting Document(s) Chlamydia,Urine Negative Normal (applies to non-numeric results) [facility] Test Performed By: [facility] [address] [place] [address] Director: David Gold MD . GC Urine Negative Normal (applies to non-numeric resul ts) [facility] Test Performed By: [facility] [address] [place] [address] Director: David Gold MD . Methodology: Second generation nucleic acid amplification. ID Date Data Source [id number] 12/07/2020 08:27:[address] [facility] Value Range Interpretation Code Description Data Apurva rce(s) Supporting Document(s) Hepatitis A Ab,IgG result Normal (applies to no n-numeric results) [facility] Result indicates immunity to hepatitis A infection from either vaccination or past exposure to hepatitis A. False-positive results may be observed in patients with CMV antibodies or heterophilic antibodies. REFERENCE VALUE Unvaccinated: Negative Vaccinated: Positive Test Performed by: [facility] [place] [address] Toy Designer: Darinel Murray M.D. Ph.D.; CLIA# [id number] ID Date Data Source [id number] 12/06/2020 12:49:00 PM EDT [facility] Name Value Range Interpretation Code Description Data Apurva rce(s) Supporting Document(s) HIV 1/2 Ab p24 Ag Screen Nonreactive Normal (applies to non-numeric results) [facility] Test Performed By: [facility] [address] [place] [address] Director: David Gold MD ID Date Data Source [id number] 12/06/2020 12:49:[address] [facility] Value Range Interpretation Code Description Data Apurva rce(s) Supporting Document(s) Hep C Ab-T Test Nonreactive Normal (applies to non-numeric results) [facility] Test Performed By: [facility] [address] [place] [address] Director: David Gold MD ID Date Data Source [id number] 12/06/2020 12:49:[address] [facility] Value Range Interpretation Code Description Data Apurva rce(s) Supporting Document(s) Hep Bs Ag Result T-Test Nonreactive Normal (applies to non -numeric results) [facility] Test Performed By: [place] [address] Director: David Gold MD ID Date Data Source [id number] 12/06/2020 12:49:[address] [facility] Value Range Interpretation Code Description Data Apurva rce(s) Supporting Document(s) Syphilis Serology Nonreactive Normal (applies to non-numer ic results) [facility] Test Performed By: [facility] [address] [place] [address] Director: David Gold MD ID Date Data Source [id number] 12/06/2020 11:59:[address] [facility] Value Range Interpretation Code Description Data Apurva rce(s) Supporting Document(s) CPK 62 U/L 26-192 Normal (applies to non-numeric resul ts) [facility] Test Performed By: [facility] [address] [place] [address] Director: David Gold MD ID Date Data Source [id number] 12/05/2020 10:06:00 PM EDT [facility] Name Value Range Interpretation Code Description Data Apurva rce(s) Supporting Document(s) Ethanol Less than 10.0 Normal (applies to non-numeric r esults) [facility] ID Date Data Source [id number] 12/08/2020 04:03:00 PM EDT [facility] Name Value Range Interpretation Code Description Data Apurva rce(s) Supporting Document(s) Chlamydia,Urine result Negative Normal (applies to non-n umeric results) [facility] Test Performed By: [facility] [address] [place] [address] Director: David Gold MD . GC Urine result Negative Normal (applies to non-numeric results) [facility] Test Performed By: [facility] [address] [place] [address] Director: David Gold MD . Methodology: Second generation nucleic acid amplification. ID Date Data Source [id number] 12/05/2020 09:41:00 PM EDT [facility] Name Value Range Interpretation Code Description Data Apurva rce(s) Supporting Document(s) UDS Benzodiazepines Screen Negative Normal (applies to n on-numeric results) [facility] UDS Cocaine Screen Negative Normal (applies to non-numer ic results) [facility] UDS Ampetamine Screen Negative Normal (applies to non-nu meric results) [facility] UDS Cannabinoids Screen Negative Normal (applies to non- numeric results) [facility] UDS Opiates Screen Negative Normal (applies to non-numer ic results) [facility] UDS Barbiturates Screen Negative Normal (applies to non- numeric results) [facility] Threshold Levels Benzodiazepine 200 ng/mL Cocaine 300 ng/mL Amphetamines 1000 ng/mL Cannabinoids (THC) 50 ng/mL Opiates 300 ng/mL Barbiturates 200 ng/mL All positive findings are presumptive and unconfirmed. Confirmation of positive results are performed only at request of provider. Unconfirmed results must not be used for non-medical purposes (i.e. preemployment and legal purposes) ID Date Data Source [id number] 12/05/2020 09:47:00 PM EDT [facility] Collected By: Nurse's Aide Time Collect ed: 2009 Collected By: Nurse's Aide Time Collect ed: 2009 Name Value Range Interpretation Code Description Data Apurva rce(s) Supporting Document(s) Color,Urine Colorl-Dk Y Normal (applies to non-numeric res ults) [facility] Clarity,Urine Clear Normal (applies to non-numeric re sults) [facility] Specific [place],Urine 1.005-1.030 Normal (applies to non- numeric results) [facility] pH,Urine 5.0-8.0 Normal (applies to non-numeric resul ts) [facility] Protein,Urine Negative Normal (applies to non-numeric re sults) [facility] Glucose,Urine Negative Normal (applies to non-numeric re sults) [facility] Ketones,Urine Negative Normal (applies to non-numeric re sults) [facility] Negative [facility] Bil[facility],U[facility] Negative Normal (applies to non-numeric results) [facility] Urobilinogen,Urine 0.2-1.0 Normal (applies to non-numer ic results) [facility] Leukocyte Esterase,Urine Negative Normal (applies to non -numeric results) [facility] Nitrite,Urine Negative Normal (applies to non-numeric re sults) [facility] ID Date Data Source [id number] 12/05/2020 09:47:00 PM EDT [facility] Collected By: Nurse's Aide Time Collect ed: 2009 Collected By: Nurse's Aide Time Collect ed: 2009 Name Value Range Interpretation Code Description Data Apurva rce(s) Supporting Document(s) RBC,Urine None Seen [facility] WBC,Urine None Seen [facility] Casts,Urine None Seen Normal (applies to non-numeric resu lts) [facility] Epithelial Cells,Urine None - Few Normal (applies to non-n umeric results) [facility] Bacteria,Urine None Seen [facility] Mucus,Urine None Seen [facility] ID Date Data Source [id number] 12/05/2020 03:44:00 PM EDT [facility] Name Value Range Interpretation Code Description Data Apurva rce(s) Supporting Document(s) SARS-CoV-2 (COVID 19) NEGATIVE - SARS-CoV-2 (COVID19) [facility] This lab was ordered by [facility] a nd reported by [facility]. ID Date Data Source Low Dose Lung Screening CT Chest 06/22/2020 10:10:30 AM EDT eCW1 ([facility]) Name Value Range Interpretation Code Description Data Apurva rce(s) Supporting Document(s) Low Dose Lung Screening CT [facility] [address] eCW1 ([facility]) ID Date Data Source [id number] 05/11/2020 08:12:00 PM EDT [facility] [...] and basilic veins. Professional interpretation performed at [facility] .End of diagnostic report for accession: [id number] Interpreted: Jeyson Potts MDTranscribed: 05/11/2020 08:09 PMSigned: 05/11/2020 08:12 PM Jeyson Potts MD [facility] # [id number] BILL # [id number] Name Value Range Interpretation Code Description Data Apurva rce(s) Supporting Document(s) ID Date Data Source [id number] 05/11/2020 07:52:23 AM EDT [facility] Name Value Range Interpretation Code Description Data Apurva rce(s) Supporting Document(s) HGB 9.6 g/dL (12.0-16.0) L [facility] HCT 29.7 % (36.0-47.0) L [facility] ID Date Data Source [id number] 05/11/2020 12:50:54 AM EDT [facility] PATIENT ABO/Rh A POSITIVEANT IBODY SCREEN NEGATIVESPEC EXP DATE 05/13/2020TESTING SITE PERFORMED AT [address] [place], [place] [address]OOD BANK COMMENT BLOOD TYPE CONFIRMED.UNIT NUMBER [id number] COMPONENT TYPE LEUKOPOOR RED CELLSUNIT DIVISION 00STATUS OF UNIT TRANSFUSEDTRANSFUSION STATUS OK TO TRANSFUSECROSSMATCH RESULT COMPATIBLE Name Value Range Interpretation Code Description Data Apurva rce(s) Supporting Document(s) ID Date Data Source [id number] 05/10/2020 06:16:35 PM EDT [facility] Name Value Range Interpretation Code Description Data Apurva rce(s) Supporting Document(s) HGB 7.8 g/dL (12.0-16.0) L [facility] HCT 23.8 % (36.0-47.0) L [facility] ID Date Data Source [id number] 05/10/2020 01:24:51 PM EDT [facility] Name Value Range Interpretation Code Description Data Apurva rce(s) Supporting Document(s) HGB 8.8 g/dL (12.0-16.0) L [facility] HCT 27.3 % (36.0-47.0) L [facility] ID Date Data Source [id number] 05/10/2020 07:07:26 AM EDT [facility] Name Value Range Interpretation Code Description Data Apurva rce(s) Supporting Document(s) MAGNESIUM 1.8 mg/dL (1.7-2.4) [facility] ID Date Data Source [id number] 05/10/2020 07:07:26 AM EDT [facility] Name Value Range Interpretation Code Description Data Apurva rce(s) Supporting Document(s) PHOSPHORUS 3.1 mg/dL (2.5-4.5) [facility] ID Date Data Source [id number] 05/10/2020 07:07:26 AM EDT [facility] Name Value Range Interpretation Code Description Data Apurva rce(s) Supporting Document(s) SODIUM 139 mmol/L (136-145) [facility] POTASSIUM 3.4 mmol/L (3.6-5.2) L [facility] CHLORIDE 106 mmol/L (100-108) [facility] CO2 22 mmol/L (22-31) [facility] ANION GAP 11 mmol/L (7-16) [facility] UREA NITROGEN 3 mg/dL (7-24) L [facility] CREATININE 0.68 mg/dL (0.60-1.00) [facility] BUN/CREAT RATIO 4.4 RATIO (10.0-20.0) L [facility] GLUCOSE 104 mg/dL (70-99) H [facility] CALCIUM 7.8 mg/dL (8.4-10.2) L [facility] GFR >60 ml/min/1.73m2 (>59) [facility] GFR ( AMER) >60 ml/min/1.73m2 (>59) [facility] GFR INTERPRETATION Lab [facility] e of [place] --NORMAL KIDNEY FUNCTION OR MILD DISEASE - GFR >OR= 60CHRONIC KIDNEY DISEASE - GFR 15 - 59RENAL FAILURE - GFR <15 Est. GFR calculation based on the MDRDstudy equation, which assumes a steadystate for creatinine. Est. GFR should notbe used for medication dosing. ID Date Data Source [id number] 05/10/2020 06:59:27 AM EDT [facility] Name Value Range Interpretation Code Description Data Apurva rce(s) Supporting Document(s) APTT 68.6 s (22.0-34.3) H [facility] ID Date Data Source [id number] 05/10/2020 06:40:19 AM EDT [facility] Name Value Range Interpretation Code Description Data Apurva rce(s) Supporting Document(s) HGB 8.3 g/dL (12.0-16.0) L [facility] HCT 26.0 % (36.0-47.0) L [facility] ID Date Data Source [id number] 2020 10:43:08 PM EDT [facility] Name Value Range Interpretation Code Description Data Apurva rce(s) Supporting Document(s) APTT 42.7 s (22.0-34.3) H [facility] ID Date Data Source [id number] 2020 11:02:31 PM EDT [facility] Name Value Range Interpretation Code Description Data Apurva rce(s) Supporting Document(s) SPECIMEN DESCRIPTION [facility] C DIFF TOXIN B (NEG) [facility] 027 NAP1 B1 (NEG) [facility] COMMENT [facility] IS CLINICALLY INDICATED, PLEASE CONTA CT THE [facility] ([phone]) WITHIN 3 DAYS OF THIS REPORT. ID Date Data Source [id number] 2020 04:48:27 PM EDT [facility] Name Value Range Interpretation Code Description Data Apurva rce(s) Supporting Document(s) HGB 9.1 g/dL (12.0-16.0) L [facility] HCT 29.4 % (36.0-47.0) L [facility] ID Date Data Source [id number] 05/10/2020 10:06:27 AM EDT [facility] LAB[facility] [place], [place] [address]Tel# SURGICAL PATHOLOGY REPORTPatient Name:CHERIE JAMESB:2Received:2020Accession #:[id number](s) [...] Out By Shahzad Troy M.D. [facility], [place], [place] [address]Technical component performed at [facility] [employer] [facility], Histopathology, [address] [place] [address], [phone].Reported at [facility], [address] [place] [address], [phone].This report may include immunohistochemical or in-situ hybridizationresults. Testing was developed and the performance characteristicsdetermined by [employer], as required byCLIA '88. The FDA has determined that approval for specific use is notnecessary for clinical use. The quality of Hematoxylin and Eosin stainsand as applicable, for all immunohistochemical and/or special stains,including positive and negative controls, were reviewed and consider edappropriate.ICD codes: R89.7CPT4 codes: A: 27943ZA: 02609E Name Value Range Interpretation Code Description Data Apurva rce(s) Supporting Document(s) ID Date Data Source [id number] 2020 01:47:24 PM EDT [facility] Name Value Range Interpretation Code Description Data Apurva rce(s) Supporting Document(s) POC GLUCOSE 83 mg/dL (70-99) [facility] NOTIFIED NURSEPERFORMED BY CLINICAL S TAFF ID Date Data Source [id number] 2020 06:43:20 AM EDT [facility] Name Value Range Interpretation Code Description Data Apurva rce(s) Supporting Document(s) APTT 55.0 s (22.0-34.3) H [facility] ID Date Data Source [id number] 2020 06:40:39 AM EDT [facility] Name Value Range Interpretation Code Description Data Apurva rce(s) Supporting Document(s) WBC 8.8 10*3/uL (4.1-11.0) [facility] [place] RBC 2.47 10*6/uL (4.00-5.40) L [facility] HGB 7.5 g/dL (12.0-16.0) L [facility] HCT 23.5 % (36.0-47.0) L [facility] MCV 95.0 fL (80.0-95.0) [facility] MCH 30.5 pg (27.0-32.0) [facility] MCHC 32.1 g/dL (32.0-36.0) [facility] RDW 17.3 % (10.5-14.5) H [facility] PLT 484 10*3/uL (150-450) H [facility] MPV 9.4 fL (7.1-10.7) [facility] NEUT % 68.1 % (35.0-75.0) [facility] LYMPH % 17.1 % (16.0-52.0) [facility] MONO % 10.1 % (0.0-8.0) H [facility] EOS % 2.4 % (0.0-5.0) [facility] BASO % 2.3 % (0.0-4.0) [facility] NEUT # 6.0 10*3/uL (1.8-7.7) [facility] LYMPH # 1.5 10*3/uL (1.2-4.8) [facility] MONO # 0.9 10*3/uL (0.0-0.8) H [facility] Eosinophils [#/volume] in Blood by Automated count 0.2 10*3/uL (0.0-0 .5) [facility] BASO # 0.2 10*3/uL (0.0-0.2) [facility] ID Date Data Source [id number] 05/08/2020 09:34:49 PM EDT Lab [facility] Name Value Range Interpretation Code Description Data Apurva rce(s) Supporting Document(s) APTT 61.7 s (22.0-34.3) H [facility] ID Date Data Source [id number] 05/08/2020 02:20:50 PM EDT [facility] Name Value Range Interpretation Code Description Data Apurva rce(s) Supporting Document(s) APTT 74.6 s (22.0-34.3) H [facility] ID Date Data Source [id number] 05/08/2020 10:35:00 AM EDT [facility] Name Value Range Interpretation Code Description Data Apurva rce(s) Supporting Document(s) SARS coronavirus 2 RNA [Presence] in Res piratory specimen by MINDY with probe detection Lab [facility] This lab was reported by [facility]. ID Date Data Source [id number] 05/08/2020 03:28:37 PM EDT [facility] Name Value Range Interpretation Code Description Data Apurva rce(s) Supporting Document(s) SPECIMEN DESCRIPTION [facility] COVID19 RESULT (NDET) Lab [facility] THIS ASSAY AMPLIFIES AND DETECTSTHE TARG ET RNA USING REAL-TIME PCR.NEGATIVE 2019_NCOV RT-PCR RESULTS DONOT PRECLUDE 2019_NCOV INFECTION ANDSHOULD NOT BE USED THE SOLE BASISFOR PATIENT MANAGEMENT DECISIONS. COMMENT [facility]. THE [place]. FOODAND DRUG ADMINISTRATION HAS NOT APPROVEDTHIS TEST. NEGATIVE RESULTS DO NOT UDAYCOLGQGVP-KHD-2 INFECTION AND SHOULD NOT BEUSED THE SOLE BASIS FOR CLINICALDIAGNOSIS OR PATIENT MANAGEMENT DECISIONS.EMAILED TO [facility] AT [address] [place] [address] [id number]. FIRST TEST [facility] SYMPTOMATIC [facility] DATE OF SYMPT ONSET [facility] HOSPITALIZED [facility] [place] [facility] CONGREGATE CARE SET [facility] ID Date Data Source [id number] 05/08/2020 07:10:35 AM EDT [facility] Name Value Range Interpretation Code Description Data Apurva rce(s) Supporting Document(s) SODIUM 138 mmol/L (136-145) [facility] POTASSIUM 3.6 mmol/L (3.6-5.2) [facility] CHLORIDE 105 mmol/L (100-108) [facility] CO2 21 mmol/L (22-31) L [facility] ANION GAP 12 mmol/L (7-16) [facility] UREA NITROGEN 6 mg/dL (7-24) L [facility] CREATININE 1.04 mg/dL (0.60-1.00) H [facility] BUN/CREAT RATIO 5.8 RATIO (10.0-20.0) L [facility] GLUCOSE 105 mg/dL (70-99) H [facility] CALCIUM 8.2 mg/dL (8.4-10.2) L [facility] GFR 53 ml/min/1.73m2 (>59) L [facility] GFR ( AMER) >60 ml/min/1.73m2 (>59) [facility] GFR INTERPRETATION Lab [facility] e of CN[place] --NORMAL KIDNEY FUNCTION OR MILD DISEASE - GFR >OR= 60CHRONIC KIDNEY DISEASE - GFR 15 - 59RENAL FAILURE - GFR <15 Est. GFR calculation based on the MDRDstudy equation, which assumes a steadystate for creatinine. Est. GFR should notbe used for medication dosing. ID Date Data Source [id number] 05/08/2020 07:10:35 AM EDT [facility] Name Value Range Interpretation Code Description Data Apurva rce(s) Supporting Document(s) MAGNESIUM 1.9 mg/dL (1.7-2.4) [facility] ID Date Data Source [id number] 05/08/2020 06:48:47 AM EDT [facility] Name Value Range Interpretation Code Description Data Apurva rce(s) Supporting Document(s) APTT 87.7 s (22.0-34.3) H [facility] ID Date Data Source [id number] 05/08/2020 06:46:31 AM EDT [facility] Name Value Range Interpretation Code Description Data Apurva rce(s) Supporting Document(s) WBC 11.2 10*3/uL (4.1-11.0) H [facility] RBC 3.00 10*6/uL (4.00-5.40) L [facility] HGB 9.2 g/dL (12.0-16.0) L [facility] HCT 28.9 % (36.0-47.0) L [facility] MCV 96.3 fL (80.0-95.0) H [facility] MCH 30.7 pg (27.0-32.0) [facility] MCHC 31.8 g/dL (32.0-36.0) L [facility] RDW 17.4 % (10.5-14.5) H [facility] PLT 609 10*3/uL (150-450) H [facility] MPV 9.5 fL (7.1-10.7) [facility] NEUT % 68.7 % (35.0-75.0) [facility] LYMPH % 19.0 % (16.0-52.0) [facility] MONO % 8.6 % (0.0-8.0) H [facility] EOS % 2.4 % (0.0-5.0) [facility] BASO % 1.3 % (0.0-4.0) [facility] NEUT # 7.7 10*3/uL (1.8-7.7) [facility] LYMPH # 2.1 10*3/uL (1.2-4.8) [facility] MONO # 1.0 10*3/uL (0.0-0.8) H [facility] Eosinophils [#/volume] in Blood by Automated count 0.3 10*3/uL (0.0-0 .5) [facility] BASO # 0.1 10*3/uL (0.0-0.2) [facility] ID Date Data Source [id number] 05/07/2020 10:37:54 PM EDT [facility] Name Value Range Interpretation Code Description Data Apurva rce(s) Supporting Document(s) APTT 80.0 s (22.0-34.3) H [facility] ID Date Data Source [id number] 05/07/2020 04:34:59 PM EDT [facility] Name Value Range Interpretation Code Description Data Apurva rce(s) Supporting Document(s) APTT 61.4 s (22.0-34.3) H [facility] ID Date Data Source [id number] 05/07/2020 04:17:37 PM EDT [facility] Name Value Range Interpretation Code Description Data Apurva rce(s) Supporting Document(s) HGB 8.7 g/dL (12.0-16.0) L [facility] HCT 26.5 % (36.0-47.0) L [facility] ID Date Data Source [id number] 05/07/2020 08:01:54 AM EDT [facility] Name Value Range Interpretation Code Description Data Apurva rce(s) Supporting Document(s) PHOSPHORUS 2.4 mg/dL (2.5-4.5) L [facility] ID Date Data Source [id number] 05/07/2020 08:01:54 AM EDT [facility] Name Value Range Interpretation Code Description Data Apurva rce(s) Supporting Document(s) MAGNESIUM 1.6 mg/dL (1.7-2.4) L [facility] ID Date Data Source [id number] 05/07/2020 08:01:54 AM EDT [facility] Name Value Range Interpretation Code Description Data Apurva rce(s) Supporting Document(s) TOTAL PROTEIN 5.4 g/dL (6.4-8.2) L [facility] ALBUMIN 2.3 g/dL (3.2-4.5) L [facility] GLOBULIN 3.1 g/dL (2.7-4.3) [facility] ALB/GLOB RATIO 0.7 RATIO [facility] BILIRUBIN,TOTAL 0.5 mg/dL (0.0-1.0) [facility] PLEASE NOTE:Total bilirubin results may be falselyelevated in patients taking Eltrombopag. BILIRUBIN,CONJUGATED 0.3 mg/dL (0.0-0.3) [facility] BILIRUBIN,UNCONJ. 0.2 mg/dL (0.0-0.7) [facility] ALKALINE PHOSPHATASE 105 U/L (45-117) [facility] AST (SGOT) 41 U/L (11-39) H [facility] ALT (SGPT) 33 U/L (12-78) [facility] ID Date Data Source [id number] 05/07/2020 08:01:54 AM EDT [facility] Name Value Range Interpretation Code Description Data Apurva rce(s) Supporting Document(s) SODIUM 138 mmol/L (136-145) [facility] POTASSIUM 3.8 mmol/L (3.6-5.2) [facility] CHLORIDE 104 mmol/L (100-108) [facility] CO2 24 mmol/L (22-31) [facility] ANION GAP 10 mmol/L (7-16) [facility] UREA NITROGEN 5 mg/dL (7-24) L [facility] CREATININE 0.80 mg/dL (0.60-1.00) [facility] BUN/CREAT RATIO 6.3 RATIO (10.0-20.0) L [facility] GLUCOSE 98 mg/dL (70-99) [facility] CALCIUM 8.3 mg/dL (8.4-10.2) L [facility] GFR >60 ml/min/1.73m2 (>59) [facility] GFR ( AMER) >60 ml/min/1.73m2 (>59) [facility] GFR INTERPRETATION [facility] --NORMAL KIDNEY FUNCTION OR MILD DISEASE - GFR >OR= 60CHRONIC KIDNEY DISEASE - GFR 15 - 59RENAL FAILURE - GFR <15 Est. GFR calculation based on the MDRDstudy equation, which assumes a steadystate for creatinine. Est. GFR should notbe used for medication dosing. ID Date Data Source [id number] 05/07/2020 07:29:24 AM EDT [facility] Name Value Range Interpretation Code Description Data Apurva rce(s) Supporting Document(s) APTT 38.9 s (22.0-34.3) H [facility] ID Date Data Source [id number] 05/07/2020 07:18:03 AM EDT [facility] Name Value Range Interpretation Code Description Data Apurva rce(s) Supporting Document(s) WBC 9.1 10*3/uL (4.1-11.0) [facility] [place] RBC 2.71 10*6/uL (4.00-5.40) L [facility] HGB 8.6 g/dL (12.0-16.0) L [facility] HCT 25.9 % (36.0-47.0) L [facility] MCV 95.5 fL (80.0-95.0) H [facility] MCH 31.7 pg (27.0-32.0) [facility] MCHC 33.2 g/dL (32.0-36.0) [facility] RDW 16.8 % (10.5-14.5) H [facility] PLT 448 10*3/uL (150-450) [facility] MPV 9.8 fL (7.1-10.7) [facility] NEUT % 68.9 % (35.0-75.0) [facility] LYMPH % 18.3 % (16.0-52.0) [facility] MONO % 9.2 % (0.0-8.0) H [facility] EOS % 2.5 % (0.0-5.0) [facility] BASO % 1.1 % (0.0-4.0) [facility] NEUT # 6.2 10*3/uL (1.8-7.7) [facility] LYMPH # 1.7 10*3/uL (1.2-4.8) [facility] MONO # 0.8 10*3/uL (0.0-0.8) [facility] Eosinophils [#/volume] in Blood by Automated count 0.2 10*3/uL (0.0-0 .5) [facility] BASO # 0.1 10*3/uL (0.0-0.2) [facility] ID Date Data Source [id number] 05/06/2020 05:45:01 PM EDT [facility] Name Value Range Interpretation Code Description Data Apurva rce(s) Supporting Document(s) HGB 9.2 g/dL (12.0-16.0) L [facility] HCT 28.2 % (36.0-47.0) L [facility] ID Date Data Source [id number] 05/08/2020 04:04:00 PM EDT [facility] [place] [address], [place] [address] NAME: ALEX JAMESDATE OF : 2REPORT: DISCHARGE SUMMARYPATIENT NUMBER: [id number] STATUS: IPMEDICAL RECORD NUMBER: [id number] OF ADMISSION: 04/25/2020DATE OF DISCHARGE: 05/06/2020ROOM: 00DISCHARGE/TRANSFER [...] Otherwise, she will be sent [facility] with [facility]. She is to continue on the thiamine. GI will continue to followher.DICTATED BY: WADE Elizabethictated: 05/06/2020 12:51DT: 05/06/2020 13:34Job #: [id number]: [facility] WeVideo g enerated reports are notconfirmed or authenticated unless they are signed by the providerElectronically Authenticated by:LOR PELAEZ MD On 05/08/2020 04:04 PM EDT Name Value Range Interpretation Code Description Data Apurva rce(s) Supporting Document(s) ID Date Data Source [id number] 05/06/2020 11:09:23 AM EDT [facility] Name Value Range Interpretation Code Description Data Apurva rce(s) Supporting Document(s) APTT 57.0 s (22.0-34.3) H [facility] ID Date Data Source [id number] 05/06/2020 04:42:35 AM EDT [facility] Name Value Range Interpretation Code Description Data Apurva rce(s) Supporting Document(s) WBC 8.3 10*3/uL (4.1-11.0) [facility] RBC 2.93 10*6/uL (4.00-5.40) L [facility] HGB 9.0 g/dL (12.0-16.0) L [facility] HCT 27.7 % (36.0-47.0) L [facility] MCV 94.7 fL (80.0-95.0) [facility] MCH 30.8 pg (27.0-32.0) [facility] MCHC 32.5 g/dL (32.0-36.0) [facility] RDW 17.0 % (10.5-14.5) H [facility] PLT 490 10*3/uL (150-450) H [facility] MPV 8.7 fL (7.1-10.7) [facility] ID Date Data Source [id number] 05/06/2020 04:53:50 AM EDT [facility] Name Value Range Interpretation Code Description Data Apurva rce(s) Supporting Document(s) APTT 60.8 s (22.0-34.3) H [facility] ID Date Data Source [id number] 05/06/2020 03:29:44 AM EDT [facility] Name Value Range Interpretation Code Description Data Apurva rce(s) Supporting Document(s) PHOSPHORUS 3.0 mg/dL (2.5-4.5) [facility] ID Date Data Source [id number] 05/06/2020 03:29:44 AM EDT [facility] Name Value Range Interpretation Code Description Data Apurva rce(s) Supporting Document(s) SODIUM 142 mmol/L (136-145) [facility] POTASSIUM 3.6 mmol/L (3.6-5.2) [facility] CHLORIDE 107 mmol/L (100-108) [facility] CO2 27 mmol/L (22-31) [facility] ANION GAP 8 mmol/L (7-16) [facility] UREA NITROGEN 5 mg/dL (7-24) L [facility] CREATININE 0.74 mg/dL (0.60-1.00) [facility] BUN/CREAT RATIO 6.8 RATIO (10.0-20.0) L [facility] GLUCOSE 102 mg/dL (70-99) H [facility] CALCIUM 8.3 mg/dL (8.4-10.2) L [facility] TOTAL PROTEIN 5.8 g/dL (6.4-8.2) L [facility] ALBUMIN 2.5 g/dL (3.2-4.5) L [facility] GLOBULIN 3.3 g/dL (2.7-4.3) [facility] ALB/GLOB RATIO 0.8 RATIO [facility] ALKALINE PHOSPHATASE 120 U/L (45-117) H [facility] BILIRUBIN,TOTAL 0.4 mg/dL (0.0-1.0) [facility] PLEASE NOTE:Total bilirubin results may be falselyelevated in patients taking Eltrombopag. AST (SGOT) 51 U/L (11-39) H [facility] ALT (SGPT) 40 U/L (12-78) [facility] GFR >60 ml/min/1.73m2 (>59) [facility] GFR ( AMER) >60 ml/min/1.73m2 (>59) [facility] GFR INTERPRETATION [facility] --NORMAL KIDNEY FUNCTION OR MILD DISEASE - GFR >OR= 60CHRONIC KIDNEY DISEASE - GFR 15 - 59RENAL FAILURE - GFR <15 Est. GFR calculation based on the MDRDstudy equation, which assumes a steadystate for creatinine. Est. GFR should notbe used for medication dosing. ID Date Data Source [id number] 05/06/2020 03:29:44 AM EDT [facility] Name Value Range Interpretation Code Description Data Apurva rce(s) Supporting Document(s) MAGNESIUM 1.8 mg/dL (1.7-2.4) [facility] ID Date Data Source [id number] 05/06/2020 03:27:19 AM EDT [facility] Name Value Range Interpretation Code Description Data Apurva rce(s) Supporting Document(s) CALCIUM IONIZED 5.04 mg/dL (4.64-5.28) [facility] IONIZED CALCIUM NORMALIZED TO PH 7.40 AN D 37 DEGREES C. ID Date Data Source [id number] 05/06/2020 02:33:31 AM EDT [facility] Name Value Range Interpretation Code Description Data Apurva rce(s) Supporting Document(s) PT 11.9 s (9.2-11.9) [facility] INR 1.14 [facility] SUGGESTED THERAPEUTIC RANGES USING INR F ORSTABILIZED ANTICOAGULATED PATIENTS:STANDARD DOSE THERAPY INR 2.0-3.0 DVT, PE, PREVENT DVT OR EMBOLISMHIGH DOSE THERAPY INR 2.5-3.5 PREVENT EMBOLISM FROM MECHANICAL HEART VALVE ID Date Data Source [id number] 05/05/2020 11:02:52 PM EDT [facility] Name Value Range Interpretation Code Description Data Apurva rce(s) Supporting Document(s) WBC 8.7 10*3/uL (4.1-11.0) [facility] RBC 2.83 10*6/uL (4.00-5.40) L [facility] HGB 9.2 g/dL (12.0-16.0) L [facility] HCT 27.1 % (36.0-47.0) L [facility] MCV 95.8 fL (80.0-95.0) H [facility] MCH 32.6 pg (27.0-32.0) H [facility] MCHC 34.0 g/dL (32.0-36.0) [facility] RDW 17.0 % (10.5-14.5) H [facility] PLT 447 10*3/uL (150-450) [facility] MPV 8.5 fL (7.1-10.7) [facility] ID Date Data Source [id number] 05/05/2020 09:17:54 PM EDT [facility] Name Value Range Interpretation Code Description Data Apurva rce(s) Supporting Document(s) APTT 54.7 s (22.0-34.3) H [facility] Procedure Social History Code Duration Value Status Description Data Source(s ) Smoking 06/20/2021 12:00:00 AM EDT Unknown if ever smoked comp leted Unknown if ever smoked [facility] ([facility]) Smoking 06/08/2021 12:00:00 AM EDT Current Smoker completed Curre nt Smoker eCW1 ([facility]) Smoking 06/08/2021 12:00:00 AM EDT Current Smoker completed Curre nt Smoker eCW1 ([facility]) Smoking 06/08/2021 12:00:00 AM EDT Current Smoker completed Curre nt Smoker eCW1 ([facility]) Smoking 06/08/2021 12:00:00 AM EDT Current Smoker completed Curre nt Smoker eCW1 ([facility]) Smoking 06/05/2021 12:00:00 AM EDT Current Smoker completed Curre nt Smoker eCW1 ([facility]) Smoking 05/15/2021 12:00:00 AM EDT Current Smoker completed Curre nt Smoker eCW1 ([facility]) Smoking 05/04/2021 12:00:00 AM EDT Current Smoker completed Curre nt Smoker eCW1 ([facility]) Smoking 05/04/2021 12:00:00 AM EDT Current Smoker completed Curre nt Smoker eCW1 ([facility]) Smoking 05/04/2021 12:00:00 AM EDT Current Smoker completed Curre nt Smoker eCW1 ([facility]) Smoking 05/04/2021 12:00:00 AM EDT Current Smoker completed Curre nt Smoker eCW1 ([facility]) Smoking 04/12/2021 12:00:00 AM EDT Current Smoker completed Curre nt Smoker eCW1 ([facility]) Smoking 04/12/2021 12:00:00 AM EDT Current Smoker completed Curre nt Smoker eCW1 ([facility]) Smoking 04/05/2021 12:00:00 AM EDT Unknown if ever smoked comp leted Unknown if ever smoked [facility] ([facility]) Smoking 03/07/2021 12:00:00 AM EDT Unknown if ever smoked comp leted Unknown if ever smoked [facility] ([facility]) Smoking 01/16/2021 12:00:00 AM EDT Unknown if ever smoked comp leted Unknown if ever smoked [facility] ([facility]) Smoking 01/09/2021 12:00:00 AM EDT Unknown if ever smoked comp leted Unknown if ever smoked [facility] ([facility]) Smoking 01/01/2021 12:00:00 AM EDT Current Smoker completed Curre nt Smoker eCW1 ([facility]) Smoking 01/01/2021 12:00:00 AM EDT Current Smoker completed Curre nt Smoker eCW1 ([facility]) Smoking 01/01/2021 12:00:00 AM EDT Current Smoker completed Curre nt Smoker eCW1 ([facility]) Smoking 01/01/2021 12:00:00 AM EDT Current Smoker completed Curre nt Smoker eCW1 ([facility]) Smoking 01/01/2021 12:00:00 AM EDT Current Smoker completed Curre nt Smoker eCW1 ([facility]) Smoking 12/26/2020 12:00:00 AM EDT Unknown if ever smoked comp leted Unknown if ever smoked [facility] ([facility]) Smoking 12/19/2020 12:00:00 AM EDT Unknown if ever smoked comp leted Unknown if ever smoked [facility] ([facility]) Smoking 12/12/2020 12:00:00 AM EDT Unknown if ever smoked comp leted Unknown if ever smoked [facility] ([facility]) Smoking 11/21/2020 12:00:00 AM EDT Unknown if ever smoked comp leted Unknown if ever smoked [facility] ([facility]) Smoking 11/14/2020 12:00:00 AM EDT Unknown if ever smoked comp leted Unknown if ever smoked [facility] ([facility]) Smoking 10/19/2020 12:00:00 AM EST Unknown if ever smoked comp leted Unknown if ever smoked [facility] ([facility]) Smoking 10/17/2020 12:00:00 AM EST Unknown if ever smoked comp leted Unknown if ever smoked [facility] ([facility]) Smoking 10/02/2020 12:00:00 AM EST Current Smoker completed Curre nt Smoker eCW1 ([facility]) Smoking 10/02/2020 12:00:00 AM EST Current Smoker completed Curre nt Smoker eCW1 ([facility]) Smoking 10/02/2020 12:00:00 AM EST Current Smoker completed Curre nt Smoker eCW1 ([facility]) Smoking 10/02/2020 12:00:00 AM EST Current Smoker completed Curre nt Smoker eCW1 ([facility]) Smoking 10/02/2020 12:00:00 AM EST Current Smoker completed Curre nt Smoker eCW1 ([facility]) Smoking 10/02/2020 12:00:00 AM EST Current Smoker completed Curre nt Smoker eCW1 ([facility]) Smoking 09/27/2020 12:00:00 AM EST Unknown if ever smoked comp leted Unknown if ever smoked [facility] ([facility]) Smoking 09/05/2020 12:00:00 AM EST Unknown if ever smoked comp leted Unknown if ever smoked [facility] ([facility]) Smoking 08/30/2020 12:00:00 AM EST Current Smoker completed Curre nt Smoker eCW1 ([facility]) Smoking 08/30/2020 12:00:00 AM EST Current Smoker completed Curre nt Smoker eCW1 ([facility]) Smoking 08/30/2020 12:00:00 AM EST Current Smoker completed Curre nt Smoker eCW1 ([facility]) Smoking 08/30/2020 12:00:00 AM EST Current Smoker completed Curre nt Smoker eCW1 ([facility]) Smoking 08/30/2020 12:00:00 AM EST Current Smoker completed Curre nt Smoker eCW1 ([facility]) Smoking 08/22/2020 12:00:00 AM EST Unknown if ever smoked comp leted Unknown if ever smoked [facility] ([facility]) Smoking 07/28/2020 12:00:00 AM EST Unknown if ever smoked comp leted Unknown if ever smoked [facility] ([facility]) Smoking 07/25/2020 12:00:00 AM EST Unknown if ever smoked comp leted Unknown if ever smoked [facility] ([facility]) Smoking 07/11/2020 12:00:00 AM EST Current Smoker completed Curre nt Smoker eCW1 ([facility]) Smoking 07/11/2020 12:00:00 AM EST Current Smoker completed Curre nt Smoker eCW1 ([facility]) Smoking 07/04/2020 12:00:00 AM EST Unknown if ever smoked comp leted Unknown if ever smoked [facility] ([facility]) Smoking 06/20/2020 12:00:00 AM EDT Unknown if ever smoked comp leted Unknown if ever smoked [facility] ([facility]) Smoking 06/06/2020 12:00:00 AM EDT Unknown if ever smoked comp leted Unknown if ever smoked [facility] ([facility]) Vital Signs ID Date Data Source UNK Name Value Range Interpretation Code Description Data Source(s) Respiratory rate 18 /min 18 /min eCW1 ([facility]) Body temperature 97.8 [degF] 97.8 [degF] eCW1 ( [facility]) Body weight 156 [lb_av] 156 [lb_av] eCW[facility] Systolic blood pressure 132 mm[Hg] 132 mm[Hg] e CW1 ([facility]) Diastolic blood pressure 78 mm[Hg] 78 mm[Hg] eCW1 ([facility]) Body weight 70.76 kg 70.76 kg eCW1 ([facility]) Body height [in_i] W1 ([facility]) Body mass index (BMI) [Ratio] 28.08 kg/m2 28.08 kg/m2 [facility] ([facility]) Heart rate 116 /min 116 /min eCW1 ([facility]) Body weight 159 [lb_av] 159 [lb_av] eCW1 ([facility] Systolic blood pressure 128 mm[Hg] 128 mm[Hg] e CW1 ([facility]) Diastolic blood pressure 70 mm[Hg] 70 mm[Hg] eCW1 ([facility]) Body weight 72.12 kg 72.12 kg eCW1 ([facility]) Heart rate 101 /min 101 /min eCW1 ([facility]) Respiratory rate 18 /min 18 /min eCW1 ([facility]) Body temperature 97.8 [degF] 97.8 [degF] eCW1 ( [facility]) Body height [in_i] eCW1 ([facility]) Body mass index (BMI) [Ratio] 28.61 kg/m2 28.61 kg/m2 eCW1 ([facility]) Body height 0.00 in Normal (applies to non-numeric resu lts) 0.00 in [facility] ([facility]) Body weight Measured 0.00 lbs Normal (applies to n on-numeric results) 0.00 lbs [facility] ([facility]) Body mass index (BMI) [Ratio] 0.00 kg/m2 No rmal (applies to non-numeric results) 0.00 kg/m2 [facility] ([facility]) Systolic blood pressure 0 mm[Hg] Normal (applies t o non-numeric results) 0 mm[Hg] [facility] ([facility]) Diastolic blood pressure 0 mm[Hg] Normal (applies to non-numeric results) 0 mm[Hg] [facility] ([facility]) Heart rate 107 /min 107 /min eCW1 ([facility]) Body weight 162 [lb_av] 162 [lb_av] eCW1 ([facility]) Body height [in_i] eCW1 ([facility]) Body mass index (BMI) [Ratio] 29.15 kg/m2 29.15 kg/m2 eCW1 ([facility]) Respiratory rate 18 /min 18 /min eCW1 ([facility]) Body temperature 95.1 [degF] 95.1 [degF] eCW1 ( [facility]) Systolic blood pressure 132 mm[Hg] 132 mm[Hg] e CW1 ([facility]) Diastolic blood pressure 82 mm[Hg] 82 mm[Hg] eCW1 ([facility]) Body mass index (BMI) [Ratio] 0.00 kg/m2 No rmal (applies to non-numeric results) 0.00 kg/m2 [facility] ([facility]) Body height 0.00 in Normal (applies to non-numeric resu lts) 0.00 in [facility] ([facility]) Systolic blood pressure 0 mm[Hg] Normal (applies t o non-numeric results) 0 mm[Hg] [facility] ([facility]) Diastolic blood pressure 0 mm[Hg] Normal (applies to non-numeric results) 0 mm[Hg] [facility] ([facility]) Body weight Measured 0.00 lbs Normal (applies to n on-numeric results) 0.00 lbs [facility] ([facility]) Body height 0.00 in Normal (applies to non-numeric resu lts) 0.00 in [facility] ([facility]) Body weight Measured 0.00 lbs Normal (applies to n on-numeric results) 0.00 lbs [facility] ([facility]) Body mass index (BMI) [Ratio] 0.00 kg/m2 No rmal (applies to non-numeric results) 0.00 kg/m2 [facility] ([facility]) Systolic blood pressure 0 mm[Hg] Normal (applies t o non-numeric results) 0 mm[Hg] [facility] ([facility]) Diastolic blood pressure 0 mm[Hg] Normal (applies to non-numeric results) 0 mm[Hg] [facility] ([facility]) Body height 0.00 in Normal (applies to non-numeric resu lts) 0.00 in [facility] ([facility]) Body weight Measured 0.00 lbs Normal (applies to n on-numeric results) 0.00 lbs [facility] ([facility]) Body mass index (BMI) [Ratio] 0.00 kg/m2 No rmal (applies to non-numeric results) 0.00 kg/m2 [facility] ([facility]) Systolic blood pressure 0 mm[Hg] Normal (applies t o non-numeric results) 0 mm[Hg] [facility] ([facility]) Diastolic blood pressure 0 mm[Hg] Normal (applies to non-numeric results) 0 mm[Hg] [facility] ([facility]) Body weight 157 [lb_av] 157 [lb_av] eCW1 ([facility]) Body height [in_i] eCW1 ([facility]) Body mass index (BMI) [Ratio] 28.25 kg/m2 28.25 kg/m2 eCW1 ([facility]) Heart rate 102 /min 102 /min eCW1 ([facility]) Respiratory rate 18 /min 18 /min eCW1 ([facility]) Body temperature 96.8 [degF] 96.8 [degF] eCW1 ( [facility]) Systolic blood pressure 148 mm[Hg] 148 mm[Hg] e CW1 ([facility]) Diastolic blood pressure 72 mm[Hg] 72 mm[Hg] eCW1 ([facility]) Body height 0.00 in Normal (applies to non-numeric resu lts) [facility] Body weight Measured 0.00 lbs Normal (applies to n on-numeric results) [facility] Body mass index (BMI) [Ratio] 0.00 kg/m2 No rmal (applies to non-numeric results) 0.00 kg/m2 [facility] ([facility]) Systolic blood pressure 0 mm[Hg] Normal (applies t o non-numeric results) 0 mm[Hg] [facility] ([facility]) Diastolic blood pressure 0 mm[Hg] Normal (applies to non-numeric results) 0 mm[Hg] [facility] ([facility]) Body weight 155 [lb_av] 155 [lb_av] eCW1 ([facility] Body height [in_i] eCW1 ([facility]) Body mass index (BMI) [Ratio] 27.90 kg/m2 27.90 kg/m2 eCW1 ([facility]) Heart rate 97 /min 97 /min eCW1 ([facility]) Respiratory rate 17 /min 17 /min eCW1 ([facility]) Body temperature 97.4 [degF] 97.4 [degF] eCW1 ( [facility]) Systolic blood pressure 138 mm[Hg] 138 mm[Hg] e CW1 ([facility]) Diastolic blood pressure 82 mm[Hg] 82 mm[Hg] eCW1 ([facility]) Body height 0.00 in Normal (applies to non-numeric resu lts) 0.00 in [facility] ([facility]) Body weight Measured 0.00 lbs Normal (applies to n on-numeric results) 0.00 lbs [facility] ([facility]) Body mass index (BMI) [Ratio] 0.00 kg/m2 No rmal (applies to non-numeric results) 0.00 kg/m2 [facility] ([facility]) Systolic blood pressure 0 mm[Hg] Normal (applies t o non-numeric results) 0 mm[Hg] [facility] ([facility]) Diastolic blood pressure 0 mm[Hg] Normal (applies to non-numeric results) 0 mm[Hg] [facility] ([facility]) Body weight 144 [lb_av] 144 [lb_av] eCW1 ([facility]) Body height [in_i] eCW1 ([facility]) Body mass index (BMI) [Ratio] 25.92 kg/m2 25.92 kg/m2 eCW1 ([facility]) Heart rate 112 /min 112 /min eCW1 ([facility]) Respiratory rate 18 /min 18 /min eCW1 ([facility]) Body temperature 96.8 [degF] 96.8 [degF] eCW1 ( [facility]) Systolic blood pressure 132 mm[Hg] 132 mm[Hg] e CW1 ([facility]) Diastolic blood pressure 84 mm[Hg] 84 mm[Hg] eCW1 ([facility]) Systolic blood pressure 124 mm[Hg] Normal (applies t o non-numeric results) 124 mm[Hg] [facility] Diastolic blood pressure 72 mm[Hg] Normal (applies to non-numeric results) 72 mm[Hg] [facility] Heart rate 97 min Normal (applies to non-numeric resul ts) 97 min [facility] Respiratory rate 18 min Normal (applies to non-numeric results) 18 min [facility] Body temperature 37.2 isabell Normal (applies to non-numeric results) 37.2 isabell [facility] Deprecated Oxygen saturation in Capillary blood by Oximetry 97 % Normal (applies to non-numeric results) 97 % [facility] Body height 159.7152 cm Normal (applies to non-numeric res ults) 159.7152 cm [facility] ID Date Data Source [id number] 12/11/2020 08:00:00 AM EDT [facility] Name Value Range Interpretation Code Description Data Source(s) Weight (Calculated Kilograms) 68.04 68.04 [facility] Weight 2400 2400 [facility] pital Temperature Source 7 7 [facility] Temperature 97.7 97.7 [facility] Respiratory Effort 1 1 [facility] Respiratory Rate 18 18 [facility] Pulse Assessment Method 4 4 G [facility] Pulse Rate 84 84 [facility] pital Height (Calculated Centimeters) 160.02 160. 02 [facility] Height 63 63 [facility] Blood Pressure 147/79 147/79 [facility] Body Mass Index (BMI) 26.5 26.5 [facility] Weight (Calculated Kilograms) 68.04 68.04 [facility] Weight 2400 2400 [facility] pital Temperature Source 7 7 [facility] Temperature 97.7 97.7 [facility] Respiratory Effort 1 1 [facility] Respiratory Rate 18 18 [facility] Pulse Assessment Method 4 4 G [facility] Pulse Rate 84 84 [facility] pital Height (Calculated Centimeters) 160.02 160. 02 [facility] Height 63 63 [facility] pital Blood Pressure 147/79 147/79 [facility] Body Mass Index (BMI) 26.5 26.5 [facility] Weight (Calculated Kilograms) 68.04 68.04 [facility] Weight 2400 2400 [facility] pital Temperature Source 7 7 [facility] Temperature 98.6 98.6 [facility] Respiratory Effort 1 1 [facility] Respiratory Rate 18 18 [facility] Pulse Assessment Method 4 4 G [facility] Pulse Rate 73 73 [facility] pital Height (Calculated Centimeters) 160.02 160. 02 [facility] Height 63 63 [facility] pital Blood Pressure 133/88 133/88 [facility] Body Mass Index (BMI) 26.5 26.5 [facility] Weight (Calculated Kilograms) 68.04 68.04 [facility] Weight 2400 2400 [facility] pital Temperature Source 7 7 [facility] Temperature 98.0 98.0 [facility] Respiratory Effort 1 1 [facility] Respiratory Rate 16 16 [facility] Pulse Assessment Method 4 4 G [facility] Pulse Rate 87 87 [facility] pital Height (Calculated Centimeters) 160.02 160. 02 [facility] Height 63 63 [facility] Pressure 114/74 114/74 [facility] Body Mass Index (BMI) 26.5 26.5 [facility] Weight (Calculated Kilograms) 68.04 68.04 [facility] Weight 2400 2400 [facility] pital Temperature Source 7 7 [facility] Temperature 98.0 98.0 [facility] Respiratory Effort 1 1 [facility] Respiratory Rate 16 16 [facility] [facility] Pulse Assessment Method 4 4 G [facility] Pulse Rate 114 114 [facility] Height (Calculated Centimeters) 160.02 160. 02 [facility] Height 63 63 [facility] Blood Pressure 109/68 109/68 [facility] Body Mass Index (BMI) 26.5 26.5 [facility] Weight (Calculated Kilograms) 68.04 68.04 [facility] Weight 2400 2400 [facility] Temperature Source 7 7 [facility] Temperature 98.0 98.0 [facility] Respiratory Effort 1 1 [facility] Respiratory Rate 16 16 [facility] Pulse Assessment Method 4 4 G [facility] Pulse Rate 114 114 [facility] Height (Calculated Centimeters) 160.02 160. 02 [facility] Height 63 63 [facility] Blood Pressure 109/68 109/68 [facility] Body Mass Index (BMI) 26.5 26.5 [facility] Weight (Calculated Kilograms) 68.67 68.67 [facility] Height (Calculated Centimeters) 160.02 160. 02 [facility] Body Mass Index (BMI) 26.8 26.8 [facility] ID Date Data Source [id number] 12/05/2020 07:49:00 PM EDT [facility] Name Value Range Interpretation Code Description Data Source(s) Weight Measurement Method 1 1 [facility] Weight (Calculated Kilograms) 69.22 69.22 [facility] Weight 2441.6 2441.6 [facility] Temperature Source 3 3 [facility] Temperature 97.3 97.3 [facility] Respiratory Effort 1 1 [facility] Respiratory Rate 18 18 [facility] Pulse Assessment Method 4 4 G [facility] Pulse Rate 106 106 [facility] Height (Calculated Centimeters) 160.02 160. 02 [facility] Height 63 63 [facility] Blood Pressure 128/81 128/81 [facility] Body Mass Index (BMI) 27.0 27.0 [facility] Weight Measurement Method 1 1 [facility] Weight (Calculated Kilograms) 69.22 69.22 [facility] Weight 2441.6 2441.6 [facility] Temperature Source 3 3 [facility] Temperature 97.3 97.3 [facility] Respiratory Effort 1 1 [facility] Respiratory Rate 18 18 [facility] Pulse Assessment Method 4 4 G [facility] Pulse Rate 106 106 [facility] Height (Calculated Centimeters) 160.02 160. 02 [facility] Height 63 63 [facility] Blood Pressure 128/81 128/81 [facility] Body Mass Index (BMI) 27.0 27.0 [facility] Weight Measurement Method 1 1 [facility] Weight (Calculated Kilograms) 69.22 69.22 [facility] Weight 2441.6 2441.6 [facility] Temperature Source 3 3 [facility] Temperature 97.6 97.6 [facility] Respiratory Effort 1 1 [facility] Respiratory Rate 18 18 [facility] Pulse Assessment Method 4 4 G [facility] Pulse Rate 106 106 [facility] Height (Calculated Centimeters) 160.02 160. 02 [facility] Height 63 63 [facility] Blood Pressure 147/97 147/97 [facility] Body Mass Index (BMI) 27.0 27.0 [facility] Weight Measurement Method 1 1 [facility] Weight (Calculated Kilograms) 69.22 69.22 [facility] Weight 2441.6 2441.6 [facility] Temperature Source 7 7 [facility] Temperature 98.7 98.7 [facility] Respiratory Effort 1 1 [facility] Respiratory Rate 19 19 [facility] Pulse Assessment Method 4 4 G [facility] Pulse Rate 104 104 [facility] Height (Calculated Centimeters) 160.02 160. 02 [facility] Height 63 63 [facility] Blood Pressure 138/79 138/79 [facility] Body Mass Index (BMI) 27.0 27.0 [facility] Patient Treatment Plan of Care Planned Activity Planned Date Details Description Data Source (s) Mupirocin 0.02 MG/MG Topical Ointment 05/04/2021 12:00:00 AM EDT eCW1 ([facility]) Mupirocin 0.02 MG/MG Topical Ointment 05/04/2021 12:00:00 AM EDT eCW1 ([facility]) Mupirocin 0.02 MG/MG Topical Ointment 05/04/2021 12:00:00 AM EDT eCW1 ([facility]) Mupirocin 0.02 MG/MG Topical Ointment 05/04/2021 12:00:00 AM EDT eCW1 ([facility]) ferrous gluconate 324 MG Oral Tablet 04/13/2021 12:00:00 AM EDT eCW1 ([facility]) Nicotine 2 MG Chewing Gum 04/13/2021 12:00:00 AM EDT eCW1 ([facility]) ferrous gluconate 324 MG Oral Tablet 04/13/2021 12:00:00 AM EDT eCW1 ([facility]) Nicotine 2 MG Chewing Gum 04/13/2021 12:00:00 AM EDT eCW1 ([facility]) Prolia 60mg/ml 09/01/2020 12:00:00 AM EST eCW1 ([facility]) Prolia 60mg/ml 09/01/2020 12:00:00 AM EST eCW1 ([facility]) Prolia 60mg/ml 09/01/2020 12:00:00 AM EST eCW1 ([facility]) ferrous gluconate 324 MG Oral Tablet 08/31/2020 12:00:00 AM EST eCW1 ([facility]) ferrous gluconate 324 MG Oral Tablet 08/31/2020 12:00:00 AM EST eCW1 ([facility]) ferrous gluconate 324 MG Oral Tablet 08/31/2020 12:00:00 AM EST eCW1 ([facility]) ferrous gluconate 324 MG Oral Tablet 08/31/2020 12:00:00 AM EST eCW1 ([facility]) ferrous gluconate 324 MG Oral Tablet 08/31/2020 12:00:00 AM EST eCW1 ([facility]) Hydrocortisone 25 MG/ML Topical Cream 06/21/2020 12:00:00 AM EDT eCW1 ([facility]) Hydrocortisone 25 MG/ML Topical Cream 06/21/2020 12:00:00 AM EDT eCW1 ([facility]) Hydrocortisone 25 MG/ML Topical Cream 06/21/2020 12:00:00 AM EDT eCW1 ([facility]) Hydrocortisone 25 MG/ML Topical Cream 06/21/2020 12:00:00 AM EDT eCW1 ([facility]) Hydrocortisone 25 MG/ML Topical Cream 06/21/2020 12:00:00 AM EDT eCW1 ([facility]) Hydrocortisone 25 MG/ML Topical Cream 06/21/2020 12:00:00 AM EDT eCW1 ([facility]) Hydrocortisone 25 MG/ML Topical Cream 06/21/2020 12:00:00 AM EDT eCW1 ([facility]) Hydrocortisone 25 MG/ML Topical Cream 06/21/2020 12:00:00 AM EDT eCW1 ([facility]) Hydrocortisone 25 MG/ML Topical Cream 06/21/2020 12:00:00 AM EDT eCW1 ([facility]) Hydrocortisone (Perianal) 1 % 05/18/2020 01:00:00 AM EDT [facility] ([facility]) Cranberry Ultra Strength 250-60 MG 05/18/2020 01:00:00 [facility] Vagisil Maximum Strength 20-3 % 05/18/2020 01:00:00 AM ED[facility] Atorvastatin Calcium 80 MG 05/15/2020 [facility] Cital[facility]ram Hydrobromide 20 MG 05/15/2020 01:00:00 AM [facility] Eliquis 2.5 MG 05/15/2020 01:00:00 AM EDT [facility] ([facility]) Pantoprazole Sodium 40 MG 05/15/2020 01:00:00 AM EDT [facility] ([facility]) Sucralfate 1 GM 05/15/2020 01:00:00 AM EDT [facility] ([facility]) Vitamin D3 1000 UNIT 05/15/2020 01:00:00 AM EDT [facility] ([facility]) Calcium 600+D3 600-800 MG-UNIT 05/15/2020 01:00:00 AM EDT [facility] ([facility]) C-1000 1000 MG 05/15/2020 01:00:00 AM EDT [facility] ([facility]) Benadryl Allergy 25 MG 05/15/2020 01:00:00 AM EDT [facility] ([facility]) Aleve 220 MG 05/15/2020 01:00:00 AM EDT N [facility] ([facility]) Ibuprofen 200 MG 05/15/2020 01:00:00 AM EDT [facility] ([facility]) Stress B Complex/Iron 05/15/2020 01:00:00 AM EDT [facility] ([facility]) Melatonin 10 MG 05/15/2020 01:00:00 AM EDT [facility] ([facility]) Tums Extra Strength 750 750 MG 05/15/2020 01:00:00 AM EDT [facility] ([facility]) Neosporin Original 05/15/2020 01:00:00 AM EDT [facility] ([facility])
[2021-07-05 21:36] LABS: BASO # 0.1 10^3/uL (0.0-0.2); BASO % 0.5 % (0.0-1.0); EOS # 0.2 10^3/uL (0.0-0.5); EOS % 0.8 % (0.0-3.0); HEMATOCRIT 29.8 % (36.0-47.0); HEMOGLOBIN 10.3 g/dl (12.0-15.5); LYMPH # 2.6 10^3/uL (1.5-5.0); LYMPH % 14.5 % (24.0-44.0); MEAN CORPUSCULAR HEMOGLOBIN 32.6 pg (27.0-33.0); MEAN CORPUSCULAR HGB CONC 34.6 g/dl (32.0-36.5); MEAN CORPUSCULAR VOLUME 94.3 fl (80.0-96.0); MONO # 1.6 10^3/uL (0.0-0.8); MONO % 8.9 % (2.0-8.0); NEUTROPHILS # 13.4 10^3/uL (1.5-8.5); NEUTROPHILS % 74.5 % (36.0-66.0); PLATELET COUNT, AUTOMATED 334 10^3/uL (150-450); RED BLOOD COUNT 3.16 10^6/uL (4.00-5.40)
--- NOTE | 2021-07-05 22:06 | REPVR ---
PROCEDURE INFORMATION: Exam: XR Chest Exam date and time: 07/05/2021 9:26 PM Age: 71 years old Clinical indication: Other: Lightheaded TECHNIQUE: Imaging protocol: XR of the chest. Views: 1 view. COMPARISON: CR PORTABLE CHEST X-RAY 06/02/2021 7:04 AM FINDINGS: Lungs: Atelectasis right lung base. Lungs otherwise clear. Pleural spaces: Unremarkable. No pleural effusion. No pneumothorax. Heart/Mediastinum: Unremarkable. No cardiomegaly. Bones/joints: Unremarkable. IMPRESSION: No acute findings. Electronically signed by: Faheem Raines On 07/05/2021 22:06:12 PM
[2021-07-05 22:11] LABS: RSV AMPLIFICATION NEGATIVE (NEGATIVE)
--- OUTSIDE RECORDS SUMMARY | 2021-07-05 22:12 | CCD ---
Author Author [facility] Organization [facility] Address Unknown Phone Unavailable Care Team Providers Care Vat Cleaner Name Role Phone Primo Hdz NP Unavailable Unavailable Primo Hdz NP Unavailable Unavailable Primo Hdz NP Unavailable Unavailable DE YCAZA STEELE, Riya SHIRLEY MD Unavailable Unavailable DE YCAZA STEELE, Riya SHIRLEY MD Unavailable Unavailable DE YCAZA STEELE, Riya SHIRLEY MD Unavailable Unavailable DE YCAZA STEELE, Ryia SHIRLEY MD Unavailable Unavailable DE YCAZA STEELE, [...] Unavailable PorRafat pantoja MD Unavailable Unavailable PorRafat pantjoa MD Unavailable Unavailable PorRafat patnoja MD Unavailable Unavailable PorRafat pantoja MD Unavailable [...] is protected by Article 27-F of the [place] Public Health law. If you continue you may have access to information: Regarding HIV / AIDS; Provided by facilities licensed or operated by the [facility] Office of Mental Health; or Provided by the [facility] Office for People With Developmental Disabilities. If such information is present, then the following [facility] mandated warning applies: This information has [...] law may result in a fine or alf sentence or both. A general authorization for the release of medical or other information is NOT sufficient authorization for further disc losure. Allergies and Adverse Reactions Type Description Substance Reaction Status Data Source(s ) Propensity to adverse reactions to substance prazosin Prazosin 2 MG Oral Capsule dizziness Active [facility] ([facility]) No Known Drug Allergies No Known Drug Allergies No Known Drug Aller gies active [facility] ([facility] ) Family History Family Member Name Family Member Gender Family Member Status Date o f Status Description Data Source(s) Unknown Female Problem [facility] ([facility]) Encounters Encounter Providers Location Date Indications Data Source(s ) Outpatient Attender: Solomon Hdz NP [facility] 06/20/2021 10:30:00 AM EDT - 06/20/2021 10:30:00 AM EDT [facility] ([facility]) Attender: Solomon Hdz NP 06/20/2021 12:00:00 AM EDT [facility] ([facility]) Unknown [address] [facility] [place] [address] 06/11/2021 12:00:00 AM EDT [facility] ([facility]) Unknown [address] [facility] [place] [address] 06/08/2021 12:00:00 AM EDT [facility]CW1 ([facility]) Unknown [address] [facility] [place] [address] 06/06/2021 12:00:00 AM EDT [facility] Unknown [address] [facility] [place] [address] 05/21/2021 12:00:00 AM EDT eCW1 ([facility]) Unknown [address] [facility] [place] [address] 05/14/2021 12:00:00 AM EDT [facility] ([facility]) Unknown [address] [facility] [place] [address] 2021 12:00:00 AM EDT eCW1 ([facility]) Unknown [address] [facility] [address] 05/08/2021 12:00:00 AM EDT [facility]CW1 ([facility]) Outpatient [address] [facility] [address] 05/04/2021 12:00:00 AM EDT eCW1 ([facility]) Unknown [address] [facility] [place] [address] 05/04/2021 12:00:00 AM EDT eCW1 ([facility]) Unknown [address] [facility] [address] 04/20/2021 12:00:00 AM EDT [facility]CW1 ([facility]) Unknown [address] [facility] [place] [address] 04/13/2021 12:00:00 AM EDT eCW1 ([facility]) Outpatient [address] [facility] [address] 04/12/2021 12:00:00 AM EDT [facility]CW1 ([facility]) Extended Individual Psychotherapy - 45 min Attender: Atilio Leone [facility] 04/05/2021 10:00:00 AM EDT - 04/05/2021 10:00:00 AM EDT [facility] ([facility]) Attender: Jessica Leone 04/05/2021 12:00:00 A M EDT [facility] ([facility]) Outpatient [address] [facility] [address] 03/14/2021 12:00:00 AM EDT eCW1 ([facility]) Unknown [address] [facility] [address] 03/13/2021 12:00:00 AM EDT eCW1 ([facility]) Unknown [address] [facility] [place] [address] 03/13/2021 12:00:00 AM EDT eCW1 ([facility]) Unknown [address] [facility] [place] [address] 03/08/2021 12:00:00 AM EDT eCW1 ([facility]) Outpatient Attender: Solomon Hdz NP [facility] 03/07/2021 10:30:00 AM EDT - 03/07/2021 10:30:00 AM EDT [facility] ([facility]) Attender: Solomon Hzd NP 03/07/2021 12:00:00 AM EDT [facility] ([facility]) Outpatient Attender: Solomon Hdz NP [facility] 01/16/2021 01:30:00 AM EDT - 01/16/2021 01:30:00 AM EDT [facility] ([facility]) Attender: Solomon Hdz NP 01/16/2021 12:00:00 AM EDT [facility] ([facility]) Extended Individual Psychotherapy - 45 min Attender: Atilio Hammondcarlos [facility] 01/09/2021 09:00:00 AM EDT - 01/09/2021 09:00:00 AM EDT [facility] ([facility]) Attender: Jessica Leone 01/09/2021 12:00:00 A M EDT [facility] ([facility]) Outpatient [address] [facility] [address] 01/01/2021 12:00:00 AM EDT eCW1 ([facility]) Extended Individual Psychotherapy - 45 min Attender: Atilio Leone [facility] 12/26/2020 09:00:00 AM EDT - 12/26/2020 09:00:00 AM EDT [facility] ([facility]) Attender: Jessica Leone 12/26/2020 12:00:00 A M EDT [facility] ([facility]) Unknown [address] [facility] [address] 12/21/2020 12:00:00 AM EDT eCW1 ([facility]) Outpatient Attender: Solomon Hdz NP [facility] 12/19/2020 01:00:00 AM EDT - 12/19/2020 01:00:00 AM EDT [facility] ([facility]) Attender: Solomon Hdz NP 12/19/2020 12:00:00 AM EDT [facility] ([facility]) Unknown [address] [facility] [address] 12/15/2020 12:00:00 AM EDT eCW1 ([facility]) Brief Individual Psychotherapy - 30 min Attender: Jessica wall [facility] 12/12/2020 12:45:00 PM EDT - 12/12/2020 12:45:00 PM EDT [facility] ([facility]) Attender: Jessica Leone 12/12/2020 12:00:00 A M EDT [facility] ([facility]) Unknown [address] [facility] [place] [address] 12/08/2020 12:00:00 AM EDT eCW1 ([facility]) Outpatient Attender: UNKNOWN [facility]PSCAORT-LABEJN 12/06/2020 09:42:00 AM E [facility] Inpatient Attender: Rafat Sheth MDAdmitter: Rafat dewitt MD [facility] 12/05/2020 07:41:00 PM EDT - 12/08/2020 09:25:00 AM EDT F10.20 [facility] F10.20 Patient discharged. Unknown [address] [facility] [address] 12/05/2020 12:00:00 AM EDT eCW1 ([facility]) Outpatient Attender: Solomon Hdz NP [facility] 11/21/2020 01:00:00 AM EDT - 11/21/2020 01:00:00 AM EDT [facility] ([facility]) Outpatient Attender: Solomon Hdz NP [facility] 11/21/2020 01:00:00 AM EDT - 11/21/2020 01:00:00 AM EDT [facility] ([facility]) Attender: Solomon Hdz NP 11/21/2020 12:00:00 AM EDT [facility] ([facility]) Extended Individual Psychotherapy - 45 min Attender: Atilio Hammondcarlos [facility] 11/14/2020 09:00:00 AM EDT - 11/14/2020 09:00:00 AM EDT [facility] ([facility]) Attender: Jessica Leone 11/14/2020 12:00:00 A M EDT [facility] ([facility]) Extended Individual Psychotherapy - 45 min Attender: Atilio Hammondcarlos [facility] 10/19/2020 08:45:00 AM EST - 10/19/2020 08:45:00 AM EST [facility] ([facility]) Attender: Jessica Leone 10/19/2020 12:00:00 A M EST [facility] ([facility]) Outpatient Attender: Solomon Hdz NP [facility] 10/17/2020 01:00:00 AM EST - 10/17/2020 01:00:00 AM EST [facility] ([facility]) Attender: Solomon Hdz NP 10/17/2020 12:00:00 AM EST [facility] ([facility]) Unknown [address] [facility] [address] 10/11/2020 12:00:00 AM EST eCW1 ([facility]) Outpatient [address] [facility] [address] 10/02/2020 12:00:00 AM EST eCW1 ([facility]) Attender: Jessica Leone 09/27/2020 12:00:00 A M EST [facility] ([facility]) TEMPMHCTelemed 30" Psychotherapy Attender: Jessica Leone [facility] 09/26/2020 09:00:00 AM EST - 09/26/2020 09:00:00 AM EST [facility] ([facility]) Outpatient [address] [facility] [place] [address] 09/14/2020 12:00:00 AM EST [facility] Unknown [address] [facility] [place] [address] 09/11/2020 12:00:00 AM EST [facility]CW1 [facility]) Outpatient Attender: Solomon Hdz NP [facility] 09/05/2020 12:30:00 PM EST - 09/05/2020 12:30:00 PM EST [facility] ([facility]) Attender: Solomon Hdz NP 09/05/2020 12:00:00 AM EST [facility] ([facility]) Unknown [address] [facility] [place] [address] 08/31/2020 12:00:00 AM EST [facility]CW1 [facility]) Unknown [address] [facility] [place] [address] 08/30/2020 12:00:00 AM EST [facility]CW1 ([facility]) Outpatient [address] [facility] [place] [address] 08/30/2020 12:00:00 AM EST [facility]CW1 [facility]) Extended Individual Psychotherapy - 45 min Attender: Atilio Leone [facility] 08/22/2020 09:00:00 AM EST - 08/22/2020 09:00:00 AM EST [facility] ([facility]) Attender: Jessica Leone 08/22/2020 12:00:00 A M EST [facility] ([facility]) Unknown [address] [facility] [place] [address] 08/21/2020 12:00:00 AM EST [facility]CW1 [facility]) Outpatient Attender: Solomon Hdz NP [facility] 07/28/2020 11:30:00 AM EST - 07/28/2020 11:30:00 AM EST [facility] ([facility]) Attender: Solomon Hdz NP 07/28/2020 12:00:00 AM EST [facility] ([facility]) Extended Individual Psychotherapy - 45 min Attender: Atilio Leone [facility] 07/25/2020 09:00:00 AM EST - 07/25/2020 09:00:00 AM EST [facility] ([facility]) Attender: Jessica Leone 07/25/2020 12:00:00 A M EST [facility] ([facility]) Outpatient [address] [facility] [place] [address] 07/11/2020 12:00:00 AM EST eCW1 ([facility]) Extended Individual Psychotherapy - 45 min Attender: Atilio Hammondcarlos [facility] 07/04/2020 09:00:00 AM EST - 07/04/2020 09:00:00 AM EST [facility] ([facility]) Attender: Jessica Leone 07/04/2020 12:00:00 A M EST [facility] ([facility]) Unknown [address] [facility] [place] [address] 06/21/2020 12:00:00 AM EDT eCW1 ([facility]) Extended Individual Psychotherapy - 45 min Attender: Atilio Leone [facility] 06/20/2020 09:00:00 AM EDT - 06/20/2020 09:00:00 AM EDT [facility] ([facility]) Attender: Jessica Leone 06/20/2020 12:00:00 A M EDT [facility] ([facility]) Extended Individual Psychotherapy - 45 min Attender: Atilio Leone [facility] 06/06/2020 12:00:00 PM EDT - 06/06/2020 12:00:00 PM EDT [facility] ([facility]) Attender: Jessica Leone 06/06/2020 12:00:00 A M EDT [facility] ([facility]) Unknown [address] [facility] [place] [address] 05/24/2020 12:00:00 AM EDT eCW1 ([facility]) 05/15/2020 01:00:00 AM EDT - 020 10:42:46 AM EDT [facility] ([facility]) Inpatient Attender: CASPER YAN [facility] MDAttender: Shahzad TAVARES MDAttender: ER PHYSICIAN 04/26/2020 12:50:00 AM EDT [facility] ( in Healthcare facility) Attender: MONALISA BERG MDAttender: Shahzad TAVARES MDAdmitter: Shahzad TAVARES MDConsultant: Rajesh Goddard 04/26/2020 12:50:00 AM EDT [facility] Inpatient Attender: [facility] YAN [facility] MDAttender: CHELO OCONNOR PAAttender: ER PHYSICIANAdmitter: CHELO KEMP 0 04/25/2020 10:57:28 PM EDT [facility] Inpatient Attender: CASPER YAN [facility] MDAttender: Shahzad TAVARES MDAttender: ER PHYSICIANAdmitter: Shahzad TAVARES MD 0 04/25/2020 10:15:00 PM EDT - 05/12/2020 06:21:00 PM EDT GI BLEEDING [facility] GI BLEEDING Patient discharged. Inpatient Attender: CRISTIANE LARSON MDAdmitter: CRISTIANE LARSON MD ED-MSP 09/13/2019 11:30:00 AM EST - 09/17/2019 09:15:00 AM EST F1020 [facility] F1020 Patient discharged. Functional Status Immunizations Vaccine Date Status Description Data Source(s) 03/14/2021 12:33:00 PM EDT completed e CW1 ([facility]) 03/14/2021 12:33:00 PM EDT completed e CW1 ([facility]) 03/14/2021 12:33:00 PM EDT completed e CW1 ([facility]) 03/14/2021 12:33:00 PM EDT completed e CW1 ([facility]) 03/14/2021 12:33:00 PM EDT completed e CW1 ([facility]) 03/14/2021 12:33:00 PM EDT completed e CW1 ([facility]) 03/14/2021 12:33:00 PM EDT completed e CW1 ([facility]) 03/14/2021 12:33:00 PM EDT completed e CW1 ([facility]) 03/14/2021 12:33:00 PM EDT completed e CW1 ([facility]) 03/14/2021 12:33:00 PM EDT completed e CW1 ([facility]) 03/14/2021 12:33:00 PM EDT completed e CW1 ([facility]) 03/14/2021 12:33:00 PM EDT completed e CW1 ([facility]) COVID-19 VACCINE Moderna 11/24/2020 12:00:00 AM EDT completed [facility]SIIS Vaccine Series Complete: YESThis Data wa s Submitted to [facility] Via [email or web address]. COVID-19 VACCINE Moderna 10/27/2020 12:00:00 AM EST completed [facility]IS Vaccine Series Complete: NOThis Data was Submitted to [facility] Via [email or web address]. Medications Medication Brand Name Start Date Product [...] EDT active Mupiroci n 2 % eCW1 ([facility]) Mupirocin 0.02 MG/MG Topical Ointment Mupirocin 2 % Mupiroci n 2 % 05/04/2021 12:00:00 AM EDT suspended Mupir ocin 2 % eCW1 ([facility]) 2 % 05/04/2021 12:00:00 AM EDT [...] EDT suspended Mupir ocin 2 % eCW1 ([facility]) Mupirocin 0.02 MG/MG Topical Ointment Mupirocin 2 % Mupiroci n 2 % 05/04/2021 12:00:00 AM EDT active Mupiroci n 2 % eCW1 ([facility]) Mupirocin 0.02 MG/MG Topical Ointment Mupirocin 2 % Mupiroci n 2 % 05/04/2021 12:00:00 AM EDT suspended Mupir ocin 2 % eCW1 ([facility]) Mupirocin 0.02 MG/MG Topical Ointment Mupirocin 2 % Mupiroci n 2 % 05/04/2021 12:00:00 AM EDT suspended Mupir ocin 2 % eCW1 ([facility]) Mupirocin 0.02 MG/MG Topical Ointment Mupirocin 2 % Mupiroci n 2 % 05/04/2021 12:00:00 AM EDT active Mupiroci n 2 % eCW1 ([facility]) Mupirocin 0.02 MG/MG Topical Ointment Mupirocin 2 % Mupiroci n 2 % 05/04/2021 12:00:00 AM EDT active Mupiroci n 2 % eCW1 ([facility]) Mupirocin 0.02 MG/MG Topical Ointment Mupirocin 2 % Mupiroci n 2 % 05/04/2021 12:00:00 AM EDT active Mupiroci n 2 % eCW1 ([facility]) Mupirocin 0.02 MG/MG Topical Ointment Mupirocin 2 % Mupiroci n 2 % 05/04/2021 12:00:00 AM EDT active Mupiroci n 2 % eCW1 ([facility]) buspirone hydrochloride 10 MG Oral Tablet [...] active [facility] jennifer 2 MG eCW1 ([facility]) Nicotine 2 MG Chewing Gum [facility] Nicotine 2 MG [facility] Nicotine 2 M G 04/13/2021 12:00:00 AM EDT suspended [facility] N icotine 2 MG eCW1 ([facility]) Nicotine 2 MG Chewing Gum [facility] Nicotine 2 MG [facility] Nicotine 2 M G 04/13/2021 12:00:00 AM EDT suspended [facility] icotine 2 MG eCW1 ([facility]) Nicotine 2 MG Chewing Gum [facility] Nicotine 2 MG [facility] Nicotine 2 M G 04/13/2021 12:00:00 AM EDT active [facility] Marco jennifer 2 MG eCW1 ([facility]) 2 mg 04/13/2021 12:00:00 AM EDT [...] suspended [facility] icotine 2 MG eCW1 ([facility]) Nicotine 2 MG Chewing Gum [facility] Nicotine 2 MG [facility] Nicotine 2 M G 04/13/2021 12:00:00 AM EDT active [facility] Marco jennifer 2 MG eCW1 ([facility]) Nicotine 2 MG Chewing Gum [facility] Nicotine 2 MG [facility] Nicotine 2 M G 04/13/2021 12:00:00 AM EDT active [facility] Marco jennifer 2 MG eCW1 ([facility]) Nicotine 2 MG Chewing Gum [facility] Nicotine 2 MG [facility] Nicotine 2 M G 04/13/2021 12:00:00 AM EDT suspended [facility] icotine 2 MG eCW1 ([facility]) ferrous gluconate 324 MG Oral Tablet Ferrous Gluconate 324 (38 Fe) MG Ferrous Gluconate 324 (38 Fe) MG 04/13/2021 12:00:00 AM EDT active Ferrous Gluconate 324 (38 Fe) MG eCW1 ([facility]) Nicotine 2 MG Chewing Gum [facility] Nicotine 2 MG [facility] Nicotine 2 M G 04/13/2021 12:00:00 AM EDT active [facility] Marco jennifer 2 MG eCW1 ([facility]) 324 mg (38 mg iron) 04/13/2021 [...] suspended [facility] icotine 2 MG eCW1 ([facility]) Nicotine 2 MG Chewing Gum [facility] Nicotine 2 MG [facility] Nicotine 2 M G 04/13/2021 12:00:00 AM EDT suspended [facility] N icotine 2 MG eCW1 ([facility]) Nicotine 2 MG Chewing Gum [facility] Nicotine 2 MG [facility] Nicotine 2 M G 04/13/2021 12:00:00 AM EDT active [facility] Marco jennifer 2 MG eCW1 ([facility]) ferrous gluconate 324 MG Oral Tablet Ferrous Gluconate 324 (38 Fe) MG Ferrous Gluconate 324 (38 Fe) MG 04/13/2021 12:00:00 AM EDT active Ferrous Gluconate 324 (38 Fe) MG eCW1 ([facility]) 80 mg 03/21/2021 12:00:00 AM EDT [...] 1 mg by mouth completed <td ID="Medicat ionRxNorm_4">407844</td><td ID="MedicationMedication_4">prazosin</td><td ID="MedicationRoute_4">by mouth</td><td ID="MedicationRouteConcept_4">D28049</td><td ID="MedicationStartDate_4">01/16/2021</td><td ID="MedicationStopDate_4">04/16/2021</td><td ID="MedicationDosageFrequency_4">at bedtime</td><td ID="MedicationDuration_4">30</td><td ID="MedicationFormulaStrength_4">1 mg</td><td ID="MedicationDosageForm_4">capsule</td><td ID="MedicationDosageFormCode_4"></td><td ID="MedicationDosageDescription_4"></td><td ID="MedicationMedicationId_4">[id number]</td><td ID="MedicationAccount_4">[id number]</td><td ID="MedicationNpid_4">[id number]</td><td ID="MedicationAuthorFirstName_4">Solomon</td><td ID="MedicationAuthorLastName_4">Hdz</td><td ID="MedicationTaxonomyCode_4">[id number]</td><td ID="MedicationTaxonomyDesc_4">Nurse Practitioner</td><td ID="MedicationPhoneNumber_4">[phone]</td> [facility] ([facility]) 15 mg 01/08/2021 12:00:00 AM [...] ID="MedicationDosageFrequency_2"></td><td ID="MedicationDuration_2">30</td><td ID="MedicationFormulaStrength_2">20 mg</td><td ID="MedicationDosageForm_2">tablet</td><td ID="MedicationDosageFormCode_2"></td><td ID="MedicationDosageDescription_2"></td><td ID="MedicationMedicationId_2">[id number]</td><td ID="MedicationAccount_2">[id number]</td><td ID="MedicationNpid_2">[id number]</td><td ID="MedicationAuthorFirstName_2">Solomon</td><td ID="MedicationAuthorLastName_2">Hdz</td><td ID="MedicationTaxonomyCode_2">[id number]</td><td ID="MedicationTaxonomyDesc_2">Nurse Practitioner</td><td ID="MedicationPhoneNumber_2">[phone]</td> [facility] ([facility]) Citalopram 20 MG Oral Tablet citalopram 10/03/2020 12:00:00 AM EST 20 mg by mouth completed <td ID="Medica tionRxNorm_2">[id number]</td><td ID="MedicationMedication_2">citalopram</td><td ID="MedicationRoute_2">by mouth</td><td ID="MedicationRouteConcept_2">X12589</td><td ID="MedicationStartDate_2">10/03/2020</td><td ID="MedicationStopDate_2">07/17/2021</td><td ID="MedicationDosageFrequency_2">once a day</td><td ID="MedicationDuration_2">30</td><td ID="MedicationFormulaStrength_2">20 mg</td><td ID="MedicationDosageForm_2">tablet</td><td ID="MedicationDosageFormCode_2"></td><td ID="MedicationDosageDescription_2"></td><td ID="MedicationMedicationId_2">[id number]</td><td ID="MedicationAccount_2">[id number]</td><td ID="MedicationNpid_2">[id number]</td><td ID="MedicationAuthorFirstName_2">Solomon</td><td ID="MedicationAuthorLastName_2">Hdz</td><td ID="MedicationTaxonomyCode_2">[id number]</td><td ID="MedicationTaxonomyDesc_2">Nurse Practitioner</td><td ID="MedicationPhoneNumber_2">[phone]</td> [facility] ([facility]) buspirone hydrochloride 10 MG Oral Tablet buspirone 2020 12:00:00 AM EST 10 mg completed <td ID="Medica tionRxNorm_3">340579</td><td ID="MedicationMedication_3">buspirone</td><td ID="MedicationRoute_3"></td><td ID="MedicationRouteConcept_3"></td><td ID="MedicationStartDate_3">10/03/2020</td><td ID="MedicationStopDate_3">07/17/2021</td><td ID="MedicationDosageFrequency_3"></td><td ID="MedicationDuration_3">30</td><td ID="MedicationFormulaStrength_3">10 mg</td><td ID="MedicationDosageForm_3">tablet</td><td ID="MedicationDosageFormCode_3"></td><td ID="MedicationDosageDescription_3"></td><td ID="MedicationMedicationId_3">[id number]</td><td ID="MedicationAccount_3">[id number]</td><td ID="MedicationNpid_3">[id number]</td><td ID="MedicationAuthorFirstName_3">Solomon</td><td ID="MedicationAuthorLastName_3">Hdz</td><td ID="MedicationTaxonomyCode_3">[id number]</td><td ID="MedicationTaxonomyDesc_3">Nurse Practitioner</td><td ID="MedicationPhoneNumber_3">[phone]</td> [facility] ([facility]) Mirtazapine 15 MG Oral Tablet mirtazapine 10/03/2020 12:00:00 AM EST 15 mg completed <td ID="Medicat ionRxNorm_1">[id number]</td><td ID="MedicationMedication_1">mirtazapine</td><td ID="MedicationRoute_1"></td><td ID="MedicationRouteConcept_1"></td><td ID="MedicationStartDate_1">10/03/2020</td><td ID="MedicationStopDate_1">07/17/2021</td><td ID="MedicationDosageFrequency_1"></td><td ID="MedicationDuration_1">30</td><td ID="MedicationFormulaStrength_1">15 mg</td><td ID="MedicationDosageForm_1">tablet</td><td ID="MedicationDosageFormCode_1"></td><td ID="MedicationDosageDescription_1"></td><td ID="MedicationMedicationId_1">[id number]</td><td ID="MedicationAccount_1">[id number]</td><td ID="MedicationNpid_1">[id number]</td><td ID="MedicationAuthorFirstName_1">Solomon</td><td ID="MedicationAuthorLastName_1">Hdz</td><td ID="MedicationTaxonomyCode_1">[id number]</td><td ID="MedicationTaxonomyDesc_1">Nurse Practitioner</td><td ID="MedicationPhoneNumber_1">[phone]</td> [facility] [facility] 80 mg 09/06/2020 12:00:00 AM [...] 12:00:00 AM EST active Prolia 60mg/ml eCW1 ([facility]) Prolia 60mg/ml UNK 09/01/2020 12:00:00 AM EST active Prolia 60mg/ml eCW1 ([facility]) Prolia 60mg/ml UNK 09/01/2020 12:00:00 AM EST active Prolia 60mg/ml eCW1 ([facility]) Prolia 60mg/ml K 09/01/2020 12:00:00 AM EST active Prolia 60mg/ml eCW1 ([facility]) Prolia 60mg/ml UNK 09/01/2020 12:00:00 AM EST active Prolia 60mg/ml eCW1 ([facility]) Prolia 60mg/ml UNK 09/01/2020 12:00:00 AM EST active Prolia 60mg/ml eCW1 ([facility]) Prolia 60mg/ml K 09/01/2020 12:00:00 AM EST active Prolia 60mg/ml eCW1 ([facility]) Prolia 60mg/ml UNK 09/01/2020 12:00:00 AM EST active Prolia 60mg/ml eCW1 ([facility]) Prolia 60mg/ml UNK 09/01/2020 12:00:00 AM EST active Prolia 60mg/ml eCW1 ([facility]) Prolia 60mg/ml UNK 09/01/2020 12:00:00 AM EST active Prolia 60mg/ml eCW1 ([facility]) Prolia 60mg/ml UNK 09/01/2020 12:00:00 AM EST active Prolia 60mg/ml eCW1 ([facility]) Prolia 60mg/ml UNK 09/01/2020 12:00:00 AM EST active Prolia 60mg/ml eCW1 ([facility]) Prolia 60mg/ml UNK 09/01/2020 12:00:00 AM EST active Prolia 60mg/ml eCW1 ([facility]) Prolia 60mg/ml UNK 09/01/2020 12:00:00 AM EST active Prolia 60mg/ml eCW1 ([facility]) Prolia 60mg/ml UNK 09/01/2020 12:00:00 AM EST active Prolia 60mg/ml eCW1 ([facility]) Prolia 60mg/ml UNK 09/01/2020 12:00:00 AM EST active Prolia 60mg/ml eCW1 ([facility]) Prolia 60mg/ml UNK 09/01/2020 12:00:00 AM EST active Prolia 60mg/ml eCW1 ([facility]) Prolia 60mg/ml UNK 09/01/2020 12:00:00 AM EST active Prolia 60mg/ml eCW1 ([facility]) Prolia 60mg/ml UNK 09/01/2020 12:00:00 AM EST active Prolia 60mg/ml eCW1 ([facility]) 2.5 % 09/01/2020 12:00:00 AM EST cream with perineal carmen licator 28 APPLY 1 APPLICATION EXTERNALLY TO AFFECTED AREA(S) TWICE A DAY NEEDED FOR 7 DAYS APPLY 1 APPLICATION EXTERNALLY TO AFFECTED AREA(S) TWICE A DAY NEEDED FOR 7 DAYS SOLD: 09/06/2020 [facility] Prolia 60mg/ml UNK 09/01/2020 12:00:00 AM EST active Prolia 60mg/ml eCW1 ([facility]) Prolia 60mg/ml UNK 09/01/2020 12:00:00 AM EST active Prolia 60mg/ml eCW1 ([facility]) Prolia 60mg/ml UNK 09/01/2020 12:00:00 AM EST active Prolia 60mg/ml eCW1 ([facility]) Prolia 60mg/ml UNK 09/01/2020 12:00:00 AM EST active Prolia 60mg/ml eCW1 ([facility]) Prolia 60mg/ml UNK 09/01/2020 12:00:00 AM EST active Prolia 60mg/ml eCW1 ([facility]) Prolia 60mg/ml UNK 09/01/2020 12:00:00 AM EST active Prolia 60mg/ml eCW1 ([facility]) Prolia 60mg/ml UNK 09/01/2020 12:00:00 AM EST active Prolia 60mg/ml eCW1 ([facility]) ferrous gluconate 324 MG Oral Tablet Ferrous Gluconate 324 (38 Fe) MG Ferrous Gluconate 324 (38 Fe) MG 08/31/2020 12:00:00 AM EST active Ferrous Gluconate 324 (38 Fe) MG eCW1 ([facility]) ferrous gluconate 324 MG Oral Tablet Ferrous Gluconate 324 (38 Fe) MG Ferrous Gluconate 324 (38 Fe) MG 08/31/2020 12:00:00 AM EST active Ferrous Gluconate 324 (38 Fe) MG eCW1 ([facility]) ferrous gluconate 324 MG Oral Tablet Ferrous Gluconate 324 (38 Fe) MG Ferrous Gluconate 324 (38 Fe) MG 08/31/2020 12:00:00 AM EST active Ferrous Gluconate 324 (38 Fe) MG eCW1 ([facility]) ferrous gluconate 324 MG Oral Tablet Ferrous Gluconate 324 (38 Fe) MG Ferrous Gluconate 324 (38 Fe) MG 08/31/2020 12:00:00 AM EST active Ferrous Gluconate 324 (38 Fe) MG eCW1 ([facility]) ferrous gluconate 324 MG Oral Tablet Ferrous Gluconate 324 (38 Fe) MG Ferrous Gluconate 324 (38 Fe) MG 08/31/2020 12:00:00 AM EST active Ferrous Gluconate 324 (38 Fe) MG eCW1 ([facility]) ferrous gluconate 324 MG Oral Tablet Ferrous Gluconate 324 (38 Fe) MG Ferrous Gluconate 324 (38 Fe) MG 08/31/2020 12:00:00 AM EST active Ferrous Gluconate 324 (38 Fe) MG eCW1 ([facility]) ferrous gluconate 324 MG Oral Tablet Ferrous Gluconate 324 (38 Fe) MG Ferrous Gluconate 324 (38 Fe) MG 08/31/2020 12:00:00 AM EST active Ferrous Gluconate 324 (38 Fe) MG eCW1 ([facility]) ferrous gluconate 324 MG Oral Tablet Ferrous Gluconate 324 (38 Fe) MG Ferrous Gluconate 324 (38 Fe) MG 08/31/2020 12:00:00 AM EST active Ferrous Gluconate 324 (38 Fe) MG eCW1 ([facility]) ferrous gluconate 324 MG Oral Tablet Ferrous Gluconate 324 (38 Fe) MG Ferrous Gluconate 324 (38 Fe) MG 08/31/2020 12:00:00 AM EST active Ferrous Gluconate 324 (38 Fe) MG eCW1 ([facility]) ferrous gluconate 324 MG Oral Tablet Ferrous Gluconate 324 (38 Fe) MG Ferrous Gluconate 324 (38 Fe) MG 08/31/2020 12:00:00 AM EST active Ferrous Gluconate 324 (38 Fe) MG eCW1 ([facility]) ferrous gluconate 324 MG Oral Tablet Ferrous Gluconate 324 (38 Fe) MG Ferrous Gluconate 324 (38 Fe) MG 08/31/2020 12:00:00 AM EST active Ferrous Gluconate 324 (38 Fe) MG eCW1 ([facility]) ferrous gluconate 324 MG Oral Tablet Ferrous Gluconate 324 (38 Fe) MG Ferrous Gluconate 324 (38 Fe) MG 08/31/2020 12:00:00 AM EST active Ferrous Gluconate 324 (38 Fe) MG eCW1 ([facility]) ferrous gluconate 324 MG Oral Tablet Ferrous Gluconate 324 (38 Fe) MG Ferrous Gluconate 324 (38 Fe) MG 08/31/2020 12:00:00 AM EST active Ferrous Gluconate 324 (38 Fe) MG eCW1 ([facility]) ferrous gluconate 324 MG Oral Tablet Ferrous Gluconate 324 (38 Fe) MG Ferrous Gluconate 324 (38 Fe) MG 08/31/2020 12:00:00 AM EST active Ferrous Gluconate 324 (38 Fe) MG eCW1 ([facility]) ferrous gluconate 324 MG Oral Tablet Ferrous Gluconate 324 (38 Fe) MG Ferrous Gluconate 324 (38 Fe) MG 08/31/2020 12:00:00 AM EST active Ferrous Gluconate 324 (38 Fe) MG eCW1 ([facility]) ferrous gluconate 324 MG Oral Tablet Ferrous Gluconate 324 (38 Fe) MG Ferrous Gluconate 324 (38 Fe) MG 08/31/2020 12:00:00 AM EST active Ferrous Gluconate 324 (38 Fe) MG eCW1 ([facility]) ferrous gluconate 324 MG Oral Tablet Ferrous Gluconate 324 (38 Fe) MG Ferrous Gluconate 324 (38 Fe) MG 08/31/2020 12:00:00 AM EST active Ferrous Gluconate 324 (38 Fe) MG eCW1 ([facility]) ferrous gluconate 324 MG Oral Tablet Ferrous Gluconate 324 (38 Fe) MG Ferrous Gluconate 324 (38 Fe) MG 08/31/2020 12:00:00 AM EST active Ferrous Gluconate 324 (38 Fe) MG eCW1 ([facility]) ferrous gluconate 324 MG Oral Tablet Ferrous Gluconate 324 (38 Fe) MG Ferrous Gluconate 324 (38 Fe) MG 08/31/2020 12:00:00 AM EST active Ferrous Gluconate 324 (38 Fe) MG eCW1 ([facility]) ferrous gluconate 324 MG Oral Tablet Ferrous Gluconate 324 (38 Fe) MG Ferrous Gluconate 324 (38 Fe) MG 08/31/2020 12:00:00 AM EST active Ferrous Gluconate 324 (38 Fe) MG eCW1 ([facility]) ferrous gluconate 324 MG Oral Tablet Ferrous Gluconate 324 (38 Fe) MG Ferrous Gluconate 324 (38 Fe) MG 08/31/2020 12:00:00 AM EST active Ferrous Gluconate 324 (38 Fe) MG eCW1 ([facility]) ferrous gluconate 324 MG Oral Tablet Ferrous Gluconate 324 (38 Fe) MG Ferrous Gluconate 324 (38 Fe) MG 08/31/2020 12:00:00 AM EST active Ferrous Gluconate 324 (38 Fe) MG eCW1 ([facility]) 324 mg (38 mg iron) 08/31/2020 [...] Ferrous Gluconate 324 (38 Fe) MG eCW1 ([facility]) ferrous gluconate 324 MG Oral Tablet Ferrous Gluconate 324 (38 Fe) MG Ferrous Gluconate 324 (38 Fe) MG 08/31/2020 12:00:00 AM EST active Ferrous Gluconate 324 (38 Fe) MG eCW1 ([facility]) ferrous gluconate 324 MG Oral Tablet Ferrous Gluconate 324 (38 Fe) MG Ferrous Gluconate 324 (38 Fe) MG 08/31/2020 12:00:00 AM EST active Ferrous Gluconate 324 (38 Fe) MG eCW1 ([facility]) ferrous gluconate 324 MG Oral Tablet Ferrous Gluconate 324 (38 Fe) MG Ferrous Gluconate 324 (38 Fe) MG 08/31/2020 12:00:00 AM EST active Ferrous Gluconate 324 (38 Fe) MG W1 ([facility]) ferrous gluconate 324 MG Oral Tablet Ferrous Gluconate 324 (38 Fe) MG Ferrous Gluconate 324 (38 Fe) MG 08/31/2020 12:00:00 AM EST active Ferrous Gluconate 324 (38 Fe) MG W1 ([facility]) ferrous gluconate 324 MG Oral Tablet Ferrous Gluconate 324 (38 Fe) MG Ferrous Gluconate 324 (38 Fe) MG 08/31/2020 12:00:00 AM EST active Ferrous Gluconate 324 (38 Fe) MG [facility] ([facility]) buspirone hydrochloride 10 MG Oral Tablet [...] 7.5 mg by mouth completed <td ID="Medica tionRxNorm_2">244248</td><td ID="MedicationMedication_2">mirtazapine</td><td ID="MedicationRoute_2">by mouth</td><td ID="MedicationRouteConcept_2">H58402</td><td ID="MedicationStartDate_2">06/30/2020</td><td ID="MedicationStopDate_2">09/28/2020</td><td ID="MedicationDosageFrequency_2">at bedtime</td><td ID="MedicationDuration_2">30</td><td ID="MedicationFormulaStrength_2">7.5 mg</td><td ID="MedicationDosageForm_2">tablet</td><td ID="MedicationDosageFormCode_2"></td><td ID="MedicationDosageDescription_2"></td><td ID="MedicationMedicationId_2">[id number]</td><td ID="MedicationAccount_2">[id number]</td><td ID="MedicationNpid_2">[id number]</td><td ID="MedicationAuthorFirstName_2">Solomon</td><td ID="MedicationAuthorLastName_2">Hdz</td><td ID="MedicationTaxonomyCode_2">[id number]</td><td ID="MedicationTaxonomyDesc_2">Nurse Practitioner</td><td ID="MedicationPhoneNumber_2">[phone]</td> [facility] ([facility]) Citalopram 20 MG Oral Tablet [...] 10 mg by mouth completed <td ID="Medic ationRxNorm_3">[id number]</td><td ID="MedicationMedication_3">buspirone</td><td ID="MedicationRoute_3">by mouth</td><td ID="MedicationRouteConcept_3">Z90531</td><td ID="MedicationStartDate_3">06/30/2020</td><td ID="MedicationStopDate_3">09/28/2020</td><td ID="MedicationDosageFrequency_3">twice a day</td><td ID="MedicationDuration_3">30</td><td ID="MedicationFormulaStrength_3">10 mg</td><td ID="MedicationDosageForm_3">tablet</td><td ID="MedicationDosageFormCode_3"></td><td ID="MedicationDosageDescription_3"></td><td ID="MedicationMedicationId_3">[id number]</td><td ID="MedicationAccount_3">[id number]</td><td ID="MedicationNpid_3">[id number]</td><td ID="MedicationAuthorFirstName_3">Solomon</td><td ID="MedicationAuthorLastName_3">Hdz</td><td ID="MedicationTaxonomyCode_3">[id number]</td><td ID="MedicationTaxonomyDesc_3">Nurse Practitioner</td><td ID="MedicationPhoneNumber_3">[phone]</td> [facility] ([facility]) Citalopram 20 MG Oral Tablet citalopram 06/30/2020 12:00:00 AM EST 20 mg by mouth completed <td ID="Medica tionRxNorm_1">907436</td><td ID="MedicationMedication_1">citalopram</td><td ID="MedicationRoute_1">by mouth</td><td ID="MedicationRouteConcept_1">S70050</td><td ID="MedicationStartDate_1">06/30/2020</td><td ID="MedicationStopDate_1">09/28/2020</td><td ID="MedicationDosageFrequency_1">once a day</td><td ID="MedicationDuration_1">30</td><td ID="MedicationFormulaStrength_1">20 mg</td><td ID="MedicationDosageForm_1">tablet</td><td ID="MedicationDosageFormCode_1"></td><td ID="MedicationDosageDescription_1"></td><td ID="MedicationMedicationId_1">[id number]</td><td ID="MedicationAccount_1">[id number]</td><td ID="MedicationNpid_1">[id number]</td><td ID="MedicationAuthorFirstName_1">Solomon</td><td ID="MedicationAuthorLastName_1">Hdz</td><td ID="MedicationTaxonomyCode_1">[id number]</td><td ID="MedicationTaxonomyDesc_1">Nurse Practitioner</td><td ID="MedicationPhoneNumber_1">[phone]</td> [facility] ([facility]) Hydrocortisone 25 MG/ML Topical Cream Hydrocortisone ( Perianal) 2.5 % Hydrocortisone (Perianal) 2.5 % 06/21/2020 12:00:00 AM EDT 1.0 { application} active Hydrocortisone (Mely anal) 2.5 % eCW1 ([facility]) Hydrocortisone 25 MG/ML Topical Cream Hydrocortisone ( Perianal) 2.5 % Hydrocortisone (Perianal) 2.5 % 06/21/2020 12:00:00 AM EDT 1.0 { application} active Hydrocortisone (Mely anal) 2.5 % eCW1 ([facility]) Hydrocortisone 25 MG/ML Topical Cream Hydrocortisone ( Perianal) 2.5 % Hydrocortisone (Perianal) 2.5 % 06/21/2020 12:00:00 AM EDT 1.0 { application} active Hydrocortisone (Mely anal) 2.5 % eCW1 ([facility]) Hydrocortisone 25 MG/ML Topical Cream Hydrocortisone ( Perianal) 2.5 % Hydrocortisone (Perianal) 2.5 % 06/21/2020 12:00:00 AM EDT 1.0 { application} active Hydrocortisone (Mely anal) 2.5 % eCW1 ([facility]) Hydrocortisone 25 MG/ML Topical Cream Hydrocortisone ( Perianal) 2.5 % Hydrocortisone (Perianal) 2.5 % 06/21/2020 12:00:00 AM EDT 1.0 { application} active Hydrocortisone (Mely anal) 2.5 % eCW1 ([facility]) Hydrocortisone 25 MG/ML Topical Cream Hydrocortisone ( Perianal) 2.5 % Hydrocortisone (Perianal) 2.5 % 06/21/2020 12:00:00 AM EDT 1.0 { application} active Hydrocortisone (Mely anal) 2.5 % eCW1 ([facility]) Hydrocortisone 25 MG/ML Topical Cream Hydrocortisone ( Perianal) 2.5 % Hydrocortisone (Perianal) 2.5 % 06/21/2020 12:00:00 AM EDT 1.0 { application} active Hydrocortisone (Mely anal) 2.5 % eCW1 ([facility]) Hydrocortisone 25 MG/ML Topical Cream Hydrocortisone ( Perianal) 2.5 % Hydrocortisone (Perianal) 2.5 % 06/21/2020 12:00:00 AM EDT 1.0 { application} active Hydrocortisone (Mely anal) 2.5 % eCW1 ([facility]) 2.5 % 06/21/2020 12:00:00 AM EDT [...] active Hydrocortisone (Mely anal) 2.5 % eCW1 ([facility]) Hydrocortisone 25 MG/ML Topical Cream Hydrocortisone ( Perianal) 2.5 % Hydrocortisone (Perianal) 2.5 % 06/21/2020 12:00:00 AM EDT 1.0 { application} active Hydrocortisone (Mely anal) 2.5 % eCW1 ([facility]) Hydrocortisone 25 MG/ML Topical Cream Hydrocortisone ( Perianal) 2.5 % Hydrocortisone (Perianal) 2.5 % 06/21/2020 12:00:00 AM EDT 1.0 { application} active Hydrocortisone (Mely anal) 2.5 % eCW1 ([facility]) Hydrocortisone 25 MG/ML Topical Cream Hydrocortisone ( Perianal) 2.5 % Hydrocortisone (Perianal) 2.5 % 06/21/2020 12:00:00 AM EDT 1.0 { application} active Hydrocortisone (Mely anal) 2.5 % eCW1 ([facility]) Hydrocortisone 25 MG/ML Topical Cream Hydrocortisone ( Perianal) 2.5 % Hydrocortisone (Perianal) 2.5 % 06/21/2020 12:00:00 AM EDT 1.0 { application} active Hydrocortisone (Mely anal) 2.5 % eCW1 ([facility]) Hydrocortisone 25 MG/ML Topical Cream Hydrocortisone ( Perianal) 2.5 % Hydrocortisone (Perianal) 2.5 % 06/21/2020 12:00:00 AM EDT 1.0 { application} active Hydrocortisone (Mely anal) 2.5 % eCW1 ([facility]) Hydrocortisone 25 MG/ML Topical Cream Hydrocortisone ( Perianal) 2.5 % Hydrocortisone (Perianal) 2.5 % 06/21/2020 12:00:00 AM EDT 1.0 { application} active Hydrocortisone (Mely anal) 2.5 % eCW1 ([facility]) Hydrocortisone 25 MG/ML Topical Cream Hydrocortisone ( Perianal) 2.5 % Hydrocortisone (Perianal) 2.5 % 06/21/2020 12:00:00 AM EDT 1.0 { application} active Hydrocortisone (Mely anal) 2.5 % eCW1 ([facility]) Hydrocortisone 25 MG/ML Topical Cream Hydrocortisone ( Perianal) 2.5 % Hydrocortisone (Perianal) 2.5 % 06/21/2020 12:00:00 AM EDT 1.0 { application} active Hydrocortisone (Mely anal) 2.5 % eCW1 ([facility]) Hydrocortisone 25 MG/ML Topical Cream Hydrocortisone ( Perianal) 2.5 % Hydrocortisone (Perianal) 2.5 % 06/21/2020 12:00:00 AM EDT 1.0 { application} active Hydrocortisone (Mely anal) 2.5 % eCW1 ([facility]) Hydrocortisone 25 MG/ML Topical Cream Hydrocortisone ( Perianal) 2.5 % Hydrocortisone (Perianal) 2.5 % 06/21/2020 12:00:00 AM EDT 1.0 { application} active Hydrocortisone (Mely anal) 2.5 % eCW1 ([facility]) Hydrocortisone 25 MG/ML Topical Cream Hydrocortisone ( Perianal) 2.5 % Hydrocortisone (Perianal) 2.5 % 06/21/2020 12:00:00 AM EDT 1.0 { application} active Hydrocortisone (Mely anal) 2.5 % eCW1 ([facility]) Hydrocortisone 25 MG/ML Topical Cream Hydrocortisone ( Perianal) 2.5 % Hydrocortisone (Perianal) 2.5 % 06/21/2020 12:00:00 AM EDT 1.0 { application} active Hydrocortisone (Mely anal) 2.5 % eCW1 ([facility]) Hydrocortisone 25 MG/ML Topical Cream Hydrocortisone ( Perianal) 2.5 % Hydrocortisone (Perianal) 2.5 % 06/21/2020 12:00:00 AM EDT 1.0 { application} active Hydrocortisone (Mely anal) 2.5 % eCW1 ([facility]) Hydrocortisone (Perianal) 1 % Hydrocortisone (Perianal) 04/26 01:00:00 AM EDT completed [facility]SMAR T ([facility]) Vagisil Maximum Strength 20-3 % Vagisil Maximum Strength 01:00:00 AM EDT completed [facility] T ([facility]) Cranberry Ultra Strength 250-60 MG Cranberry Ultra Strength 05/18/2020 01:00:00 AM EDT completed [facility] T ([facility]) Calcium 600+D3 600-800 MG-UNIT Calcium 600+D3 05/15/2020 01:00:00 AM E DT completed [facility]SMART ([facility]) Vitamin D3 1000 UNIT Vitamin D3 05/15/2020 01:00:00 AM EDT completed [facility]SM[facility] ([facility]) Sucralfate 1 GM Sucralfate 05/15/2020 01:00:00 AM EDT completed [facility] ([facility]) Ibuprofen 200 MG Ibuprofen 05/15/2020 01:00:00 AM EDT completed [facility] ([facility]) Aleve 220 MG Aleve 05/15/2020 01:00:00 AM EDT comp leted NETSMART ([facility]) Benadryl Allergy 25 MG Benadryl Allergy 05/15/2020 01:00:00 AM EDT completed [facility] ([facility]) C-1000 1000 MG C-1000 05/15/2020 01:00:00 AM EDT c ompleted [facility]SMART ([facility]) Tums Extra Strength 750 750 MG Tums Extra Strength 750 05/15 01:00:00 AM EDT completed [facility] T ([facility]) Melatonin 10 MG Melatonin 05/15/2020 01:00:00 AM EDT completed [facility]SMART ([facility]) Stress B Complex/Iron Stress B Complex/Iron 05/15/2020 01:00:00 AM EDT completed [facility]SM[facility] ([facility]) Neosporin Original Neosporin Original 05/15/2020 01:00:00 AM EDT completed [facility] ([facility]) Pantoprazole Sodium 40 MG Pantoprazole Sodium 05/15/2020 01:00:00 AM E DT completed [facility]SMART ([facility]) Eliquis 2.5 MG Eliquis 05/15/2020 01:00:00 AM EDT 1.0 {tablet} completed [facility]SM[facility] ([facility]) Citalopram Hydrobromide 20 MG Citalopram Hydrobromide 2019 01:00:00 AM EDT completed [facility]SMAR T ([facility]) Atorvastatin Calcium 80 MG Atorvastatin Calcium 05/15/2020 01:00:00 A M EDT completed NETSMART ( [facility]) 1 gram 05/13/2020 12:00:00 AM EDT [...] relationship to nielsen Policy Nielsen Plan Information [facility] COMMUNITY PLAN [facility] [id number] SP [id number] [facility] COMM[facility] PLAN [facility] [id number] SP [id number] [facility] PLAN [facility] [id number] SP [id number] MEDICARE [id number] S [id number] [facility] Community Plan Commercial [id number] Self [id number] [facility] Plan Commercial [id number] Self [id number] EMEDNY [id number] SP [id number] [facility] [id number] SP [id number] COMMUNITY HEALTH MEDICARE [id number] S [id number] MEDICAID [id number] MEDICARE JOSHUA [id number] S [id number] [facility] [id number] S [id number] MEDICAID [id number] S [id number] [facility] [id number] S [id number] MEDICAID [id number] SP [id number] [facility] COMMUNTY [facility] [id number] 18 [id number] [place] [facility] [id number] [facility] COMMUNITY PLAN [id number] 18 [id number] [facility] Community Plan Commercial [id number] Self [id number] Medicaid [facility] Medicaid [id number] Self [id number] [facility] Communty Plan Medicaid [id number] Self [id number] [facility] COMMUNITY PLAN X [id number] 18 [id number] MEDICAID -PHYSICIAN [id number] [facility] [id number] 18 [id number] [facility] Community Plan Commercial [id number] Self [id number] Medicaid [facility] Medicaid [id number] Self [id number] [facility] Plan Medicaid [id number] Self [id number] [facility] Community Plan Commercial [id number] Self [id number] Medicaid [facility] [place] [id number] Self [id number] [facility] Plan Medicaid [id number] Self [id number] FOR[facility]LY [facility] [employer] [facility] MEDICARE O/P [id number] 18 [id number] Medicaid [place] [facility] Medicaid [id number] Self [id number] [facility] Communty Plan Medicaid [id number] Self [id number] [facility] Community Plan Commercial [id number] Self [id number] MEDICAID -O/P EMERGENCY ROOM [id number] 18 [id number] UN COMMUNITY PLAN MCDO [id number] SP [id number] MEDICARE [id number] SP [id number] A UN COMMUNITY PLAN [facility] [id number] SP [id number] [facility] Medigap Part B [id number] Self [id number] [place] Medigap Part B [id number] Self [id number] [facility] Medigap Part B [id number] Self [id number] [place] Med[place] B [id number] Self [id number] Medicaid [facility] Medicaid [id number] Self [id number] [facility] Communty Plan Medicaid [id number] Self [id number] MEDICAID -CLINIC [id number] [employer] MEDICARE-PHYSICIAN [id number] 18 [id number] MEDICARE [facility] O [id number] S [id number] [facility] Plan Medicaid [id number] Self [id number] SELF PAY ONLY [id number] SP [id number] [id number] SP [id number] ALLSTATE INS CO NO FAULT O UN [id number] S UN ALLSTATE INS CO NO FAULT UN SI2 UN ALLSTATE INS CO NO FAULT [id number] [place] [id number] Self ALLSTATE INS CO NO FAULT O [id number] S [id number] [facility] MEDICAID [id number] SP [id number] SELF PAY ONLY UNAVAILABLE SP UNAV AILABLE [facility] [id number] SP [id number] [facility] [id number] SP [id number] MEDICARE [id number] S [id number] MEDICAID [id number] S [id number] [facility] [id number] S [id number] [id number] [id number] SP [id number] [facility]) O [id number] S [id number] MEDICAID M [id number] S [id number] MEDICAID HEA [id number] S [id number] Problems, Conditions, and Diagnoses Code Display Name Description Problem Type Effective Dates Data Source(s) Z53.29 Procedure and treatment not carried out because of patient's decision for other reasons PROC/TRTMT NOT CRD OUT BEC PT DECISION FOR OTH REASONS Diagn osis 12/05/2020 07:41:00 PM EDT [facility] F10.20 Alcohol dependence, uncomplicated ALCOHOL DEPEND ENCE, UNCOMPLICATED Diagnosis 12/05/2020 07:41:00 PM EDT [facility] F43.9 Reaction to severe stress, unspecified U nspecified Trauma- and Stressor- Related Disorder Condition 06/20/2021 12:00:00 AM EDT [facility] ([facility]) F41.0 Panic disorder [episodic paroxysmal anxiety] Panic Dis order Condition 06/20/2021 12:00:00 AM EDT [facility] ([facility]) F17.200 Nicotine dependence, unspecified, uncomp licated Tobacco Use Disorder, Severe Condition 06/20/2021 12:00:00 AM EDT [facility] ([facility]) F10.20 Alcohol dependence, uncomplicated Alcohol Use Disorder , Severe Condition 06/20/2021 12:00:00 AM EDT [facility] ([facility]) F41.9 Anxiety disorder, unspecified Unspecified Anxiety Diso rder Condition 06/20/2021 12:00:00 AM EDT [facility] ([facility]) K57.90 [id number] Diverticulosis Problem 06/09/2021 12:00:00 A M EDT eCW1 ([facility]) K64.8 [id number] Internal hemorrhoid Problem 06/09/2021 12:00 :00 AM EDT eCW1 ([facility]) K64.4 [id number] External hemorrhoid Problem 06/09/2021 12:00 :00 AM EDT eCW1 ([facility]) R06.00 [id number] Dyspnea, unspecified type Problem 06/09/2021 12:00:00 AM EDT eCW1 ([facility]) E87.6 [id number] Hypokalemia Problem 06/09/2021 12:00:00 AM E DT eCW1 ([facility]) R18.8 [id number] Other ascites Problem 06/09/2021 12:00:00 AM EDT eCW1 ([facility]) D12.2 [id number] Adenomatous polyp of ascending colon Prob katie 06/09/2021 12:00:00 AM EDT eCW1 ([facility]) D12.3 [id number] Adenomatous polyp of transverse colon Pro blem 06/09/2021 12:00:00 AM EDT eCW1 ([facility]) D51.8 [id number] Macrocytic anemia with vitamin B12 defici ency Problem 06/09/2021 12:00:00 AM EDT eCW1 ([facility]) D12.0 [id number] Adenomatous polyp of cecum Problem 12:00:00 AM EDT eCW1 ([facility]) K63.5 [id number] Polyp of splenic flexure of colon Problem 06/09/2021 12:00:00 AM EDT eCW1 ([facility]) K51.00 [id number] Pancolitis Problem 06/09/2021 12:00:00 AM ED T eCW1 ([facility]) K50.019 [id number] Terminal ileitis with complication Proble m 06/09/2021 12:00:00 AM EDT eCW1 ([facility]) E83.39 [id number] Hypophosphatasia Problem 06/07/2021 12:00:00 AM EDT eCW1 ([facility]) R89.9 [id number] Abnormal laboratory test result Problem 05/08/2021 12:00:00 AM EDT eCW1 ([facility]) D50.0 [id number] Iron deficiency anemia due to chronic blo od loss Problem 04/12/2021 12:00:00 AM EDT eCW1 ([facility]) F51.5 [id number] Nightmares Problem 10/02/2020 12:00:00 AM ES T eCW1 ([facility]) M81.0 Age-related osteoporosis Age-related ost eoporosis without current pathological fracture Problem 09/01/2020 12:00:00 AM EST eCW1 ([facility]) 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, single episod e, in partial remission Major Depressive Disorder, Single episode, In partial remission Condition 06/20/2020 12:00:00 AM EDT [facility] ([facility]) Surgeries/Procedures Procedure Description Date Indications Data Source(s) [facility] Telemed E/M Lvl 3--Est pt 06/20/2021 12:00:00 AM EDT - 06/20/2021 12:00:00 AM EDT [facility] ([facility]) Telemed A/O 30" 06/20/2021 12:00:00 AM EDT [facility] ([facility]) MHC Telemed E/M Lvl 3--Est pt 06/20/2021 12:00:00 AM E DT [facility] ([facility]) Extended Individual Psychotherapy - 45 min 04/05/2021 12:00:00 AM EDT - 04/05/2021 12:00:00 AM EDT [facility] ([facility]) Extended Individual Psychotherapy - 45 min 12:00:00 AM EDT [facility] ([facility]) Unclassified biologics 03/14/2021 12:00:00 AM EDT eCW1 ([facility]) MHC Telemed E/M Lvl 3--Est pt 03/07/2021 12:00:00 AM EDT - 03/07/2021 12:00:00 AM EDT [facility] ([facility]) Telemed A/O 30" 03/07/2021 12:00:00 AM EDT [facility] ([facility]) MHC Telemed E/M Lvl 3--Est pt 03/07/2021 12:00:00 AM E DT [facility] ([facility]) MHC Telemed E/M Lvl 3--Est pt 01/16/2021 12:00:00 AM EDT - 01/16/2021 12:00:00 AM EDT [facility] ([facility]) Telemed A/O 30" 01/16/2021 12:00:00 AM EDT [facility] ([facility]) MHC Telemed E/M Lvl 3--Est pt 01/16/2021 12:00:00 AM E DT [facility] ([facility]) Extended Individual Psychotherapy - 45 min 01/09/2021 12:00:00 AM EDT - 01/09/2021 12:00:00 AM EDT [facility] ([facility]) Extended Individual Psychotherapy - 45 min 12:00:00 AM EDT [facility] ([facility]) Extended Individual Psychotherapy - 45 min 12/26/2020 12:00:00 AM EDT - 12/26/2020 12:00:00 AM EDT [facility] ([facility]) Extended Individual Psychotherapy - 45 min 12:00:00 AM EDT [facility] ([facility]) MHC Telemed E/M Lvl 3--Est pt 12/19/2020 12:00:00 AM EDT - 12/19/2020 12:00:00 AM EDT [facility] ([facility]) Telemed A/O 30" 12/19/2020 12:00:00 AM EDT [facility] ([facility]) MHC Telemed E/M Lvl 3--Est pt 12/19/2020 12:00:00 AM E DT [facility] ([facility]) Brief Individual Psychotherapy - 30 min 12/12/2020 12:00:00 AM EDT - 12/12/2020 12:00:00 AM EDT [facility] ([facility]) Brief Individual Psychotherapy - 30 min 12/12/2020 12: 00:00 AM EDT [facility] ([facility]) MHC Telemed E/M Lvl 3--Est pt 11/21/2020 12:00:00 AM EDT - 11/21/2020 12:00:00 AM EDT [facility] ([facility]) Telemed A/O 30" 11/21/2020 12:00:00 AM EDT [facility] ([facility]) MHC Telemed E/M Lvl 3--Est pt 11/21/2020 12:00:00 AM E DT [facility] ([facility]) MHCTelemed E/M Lvl 5--Est pt 11/21/2020 12:00:00 AM ED T [facility] ([facility]) Extended Individual Psychotherapy - 45 min 11/14/2020 12:00:00 AM EDT - 11/14/2020 12:00:00 AM EDT [facility] ([facility]) Extended Individual Psychotherapy - 45 min 12:00:00 AM EDT [facility] ([facility]) Extended Individual Psychotherapy - 45 min 10/19/2020 12:00:00 AM EST - 10/19/2020 12:00:00 AM EST [facility] ([facility]) Extended Individual Psychotherapy - 45 min 12:00:00 AM EST [facility] ([facility]) MHC Telemed E/M Lvl 3--Est pt 10/17/2020 12:00:00 AM EST - 10/17/2020 12:00:00 AM EST [facility] ([facility]) Telemed A/O 30" 10/17/2020 12:00:00 AM EST [facility] ([facility]) MHC Telemed E/M Lvl 3--Est pt 10/17/2020 12:00:[address] [facility] ([facility]) TEMPMHCTelemed 30" Psychotherapy 021 12:00:00 AM EST - 09/27/2020 12:00:00 AM EST [facility] ([facility]) TEMPMHCTelemed 30" Psychotherapy 09/26/2020 12:00:00 A M EST [facility] ([facility]) Unclassified biologics 09/14/2020 12:00:00 AM EST eCW1 ([facility]) MHC Telemed E/M Lvl 3--Est pt 09/05/2020 12:00:00 AM EST - 09/05/2020 12:00:00 AM EST [facility] ([facility]) Telemed A/O 30" 09/05/2020 12:00:00 AM EST [facility] ([facility]) MHC Telemed E/M Lvl 3--Est pt 09/05/2020 12:00:[address] [facility] ([facility]) Extended Individual Psychotherapy - 45 min 08/22/2020 12:00:00 AM EST - 08/22/2020 12:00:00 AM EST [facility] ([facility]) Extended Individual Psychotherapy - 45 min 0 12:00:00 AM EST [facility] ([facility]) MHC Telemed E/M Lvl 3--Est pt 07/28/2020 12:00:00 AM EST - 07/28/2020 12:00:00 AM EST [facility] ([facility]) Telemed A/O 30" 07/28/2020 12:00:00 AM EST [facility] ([facility]) MHC Telemed E/M Lvl 3--Est pt 07/28/2020 12:00:[address] [facility] ([facility]) Extended Individual Psychotherapy - 45 min 07/25/2020 12:00:00 AM EST - 07/25/2020 12:00:00 AM EST [facility] ([facility]) Extended Individual Psychotherapy - 45 min 0 12:00:00 AM EST [facility] ([facility]) Extended Individual Psychotherapy - 45 min 07/04/2020 12:00:00 AM EST - 07/04/2020 12:00:00 AM EST [facility] ([facility]) Extended Individual Psychotherapy - 45 min 0 12:00:00 AM EST [facility] ([facility]) Extended Individual Psychotherapy - 45 min 06/20/2020 12:00:00 AM EDT - 06/20/2020 12:00:00 AM EDT [facility] ([facility]) Extended Individual Psychotherapy - 45 min 0 12:00:00 AM EDT [facility] ([facility]) Extended Individual Psychotherapy - 45 min 06/06/2020 12:00:00 AM EDT - 06/06/2020 12:00:00 AM EDT [facility] ([facility]) Extended Individual Psychotherapy - 45 min 0 12:00:00 AM EDT [facility] ([facility]) Results ID Date Data Source [id number] 06/24/2021 12:57:00 PM EDT [facility] Name Value Range Interpretation Code Description Data Apurva rce(s) Supporting Document(s) SARS coronavirus 2 RNA [Presence] in Res piratory specimen by MINDY with probe detection NEGATIVE [facility] This lab was ordered by [facility] a nd reported by [facility]. ID Date Data Source [id number] 06/12/2021 11:48:00 AM EDT [facility] Name Value Range Interpretation Code Description Data Apurva rce(s) Supporting Document(s) SARS coronavirus 2 RNA [Presence] in Res piratory specimen by MINDY with probe detection NEGATIVE [facility] This lab was ordered by [facility] a nd reported by [facility]. ID Date Data Source [id number] 06/01/2021 06:28:00 PM EDT [facility] Name Value Range Interpretation Code Description Data Apurva rce(s) Supporting Document(s) SARS coronavirus 2 RNA [Presence] in Res piratory specimen by MINDY with probe detection NEGATIVE [facility] This lab was ordered by [facility] a nd reported by [facility]. ID Date Data Source TOTAL IRON BINDING CAPACIT 2021 12:00:00 AM EDT eCW1 ( [facility]) Name Value Range Interpretation Code Description Data Apurva rce(s) Supporting Document(s) 24.7 13.2-45.0 PERCENT SATURATION eCW1 ([facility]) 72 50-170 IRON (FE) eCW1 ([facility]) 291 250-450 TOTAL IRON BINDING CAPACI TY eCW1 ([facility]) ID Date Data Source FERRITIN 2021 12:00:00 AM EDT eCW1 ([facility] Name Value Range Interpretation Code Description Data Apurva rce(s) Supporting Document(s) 109 8-252 FERRITIN eCW1 ([facility]) ID Date Data Source CBC with Differential 05/04/2021 12:00:00 AM EDT eCW1 ([facility]) Name Value Range Interpretation Code Description Data Apurva rce(s) Supporting Document(s) 14.1 4.0-10.0 WHITE BLOOD COUNT eCW1 ([facility]) 41.0 36.0-47.0 HEMATOCRIT eCW1 ([facility]) 3.99 4.00-5.40 RED BLOOD COUNT eCW1 ([facility]) 13.7 12.0-15.5 HEMOGLOBIN eCW1 ([facility]) 34.3 27.0-33.0 MEAN CORPUSCULAR HEMOGLOB IN eCW1 ([facility]) 102.8 80.0-96.0 MEAN CORPUSCULAR VOLUME e CW1 ([facility]) 33.4 32.0-36.5 MEAN CORPUSCULAR HGB CONC eCW1 ([facility]) 74.7 36.0-66.0 NEUTROPHILS % eCW1 ([facility]) 407 150-450 PLATELET COUNT, AUTOMATED eCW1 ([facility]) 12.7 11.5-14.5 RED CELL DISTRIBUTION WID TH eCW1 ([facility]) 0.9 0.0-3.0 EOS % eCW1 ([facility]) 7.9 2.0-8.0 MONO % eCW1 ([facility]) 15.2 24.0-44.0 LYMPH % eCW1 ([facility]) 1.1 0.0-0.8 MONO # eCW1 ([facility]) 10.5 1.5-8.5 NEUTROPHILS # eCW1 ([facility]) 2.2 1.5-5.0 LYMPH # eCW1 ([facility]) 0.7 0.0-1.0 BASO % eCW1 ([facility]) 0.1 0.0-0.5 EOS # eCW1 ([facility]) 0.1 0.0-0.2 BASO # eCW1 ([facility]) ID Date Data Source GASTROINTESTINAL GI PANEL ([facility]) 05/04/2021 12:00:00 AM EDT eCW1 ([facility]) Name Value Range Interpretation Code Description Data Apurva rce(s) Supporting Document(s) This Gastrointestinal PCR Panel detects the following bacteria, GASTROINTESTINAL (GI) PANEL eCW1 ([facility]) ID Date Data Source C REACTIVE PROTEIN QUANTITATIV (At [facility]) 05/04/2021 12:00 :00 AM EDT eCW1 ([facility]) Name Value Range Interpretation Code Description Data Apurva rce(s) Supporting Document(s) 4.93 0.00-0.30 C REACTIVE PROTEIN QUANTI TATIV eCW1 ([facility]) ID Date Data Source Comprehensive Metabolic Profile (CMP) 05/04/2021 12:00:00 AM EDT eCW1 ([facility]) Name Value Range Interpretation Code Description Data Apurva rce(s) Supporting Document(s) 0.59 0.55-1.30 CREATININE FOR GFR eCW1 ([facility]) 6 7-18 BLOOD UREA NITROGEN eCW1 ([facility]) 103 70-100 GLUCOSE, FASTING eCW1 (Critical access hospital) 3.9 3.5-5.1 POTASSIUM SERUM eCW1 ([facility]) 135 136-145 SODIUM LEVEL eCW1 ([facility]) > 60.0 >45 GLOMERULAR FILTRATION RATE eCW 1 ([facility]) 8.6 8.8-10.2 CALCIUM LEVEL eCW1 ([facility]) 25 21-32 CARBON DIOXIDE LEVEL eCW1 ([facility]) 102 98-107 CHLORIDE LEVEL eCW1 ([facility]) 67 12-78 ALT/SGPT eCW1 ([facility]) 108 7-37 AST/SGOT eCW1 ([facility]) 195 45-117 ALKALINE PHOSPHATASE eCW1 ([facility]) 3.0 3.2-5.2 ALBUMIN eCW1 ([facility]) 1.1 0.2-1.0 BILIRUBIN,TOTAL eCW1 ([facility]) 7.0 6.4-8.2 TOTAL PROTEIN eCW1 ([facility]) 0.8 1.2-2.2 ALBUMIN/GLOBULIN RATIO eCW1 ([facility]) ID Date Data Source LIPASE 05/04/2021 12:00:00 AM EDT eCW1 ([facility]) Name Value Range Interpretation Code Description Data Apurva rce(s) Supporting Document(s) 117 73-393 LIPASE eCW1 ([facility]) ID Date Data Source ERYTHROCYTE SEDIMENTATION RATE 05/04/2021 12:00:00 AM EDT eC W1 ([facility]) Name Value Range Interpretation Code Description Data Apurva rce(s) Supporting Document(s) 48 0-30 ERYTHROCYTE SEDIMENTATION RATE eCW1 ([facility]) ID Date Data Source [id number] 12/07/2020 07:38:00 AM EDT [facility] Name Value Range Interpretation Code Description Data Apurva rce(s) Supporting Document(s) White Blood Count 3.5-10.5 Normal (applies to non-numeri c results) [facility] Red Blood Count 3.90-5.00 Normal (applies to non-numeric results) [facility] Hemoglobin 12.0-15.5 Normal (applies to non-numeric resul ts) [facility] Hematocrit 34.9-44.5 Normal (applies to non-numeric resul ts) [facility] Mean Corpuscular Volume 81.2-95.1 Above high normal [facility] Mean Corpuscular Hgb 25.6-32.2 Above high normal [facility] Mean Corpuscular Hgb Conc 32.0-36.0 Normal (applies to no n-numeric results) [facility] Red Cell Distribution Width 11.9-15.5 Normal (appli es to non-numeric results) [facility] Platelet Count 159 x10 3/uL 150-450 Normal (applies to non-numeric results) [facility] Mean Platelet Volume 9.4-12.4 Below low normal [facility] Neutrophils% (Auto) 31.0-71.0 Normal (applies to non-nume fortino results) [facility] Lymphocytes% (Auto) 20.0-55.0 Normal (applies to non-nume fortino results) [facility] Monocytes% (Auto) 4.0-12.0 Normal (applies to non-numeri c results) [facility] Eosinophils% (Auto) 1.0-8.0 Normal (applies to non-nume fortino results) [facility] Basophils% (Auto) 0.0-2.0 Normal (applies to non-numeri c results) [facility] Immature Granulocytes% (Auto) 0.0-2.0 Normal (carmen lies to non-numeric results) [facility] Neutrophils# (Auto) 1.50-6.20 Normal (applies to non-nume fortino results) [facility] Lymphocytes# (Auto) 1.20-4.00 Normal (applies to non-nume fortino results) [facility] Monocytes# (Auto) 0.00-0.90 Normal (applies to non-numeri c results) [facility] Eosinophils# (Auto) 0.00-0.50 Normal (applies to non-nume fortino results) [facility] Basophils# (Auto) 0.00-0.20 Normal (applies to non-numeri c results) [facility] Immature Granulocytes# (Auto) 0.00-7.00 No rmal (applies to non-numeric results) [facility] ID Date Data Source [id number] 12/07/2020 08:39:00 PM EDT [facility] Name Value Range Interpretation Code Description Data Apurva rce(s) Supporting Document(s) Hepatitis A Ab,IgG result Normal (applies to no n-numeric results) [facility] Result indicates immunity to hepatitis A infection from either vaccination or past exposure to hepatitis A. False-positive results may be observed in patients with CMV antibodies or heterophilic antibodies. REFERENCE VALUE Unvaccinated: Negative Vaccinated: Positive Test Performed by: [facility] [employer] [place] [address] Slag Skimmer: Darinel Murray M.D. Ph.D.; CLIA# [id number] ID Date Data Source [id number] 12/06/2020 12:54:00 PM EDT [facility] Value Range Interpretation Code Description Data Apurva rce(s) Supporting Document(s) HIV Screen result Nonreactive Normal (applies to non-numer ic results) [facility] Test Performed By: [facility] [address] [place] [address] Director: David Gold MD ID Date Data Source [id number] 12/06/2020 12:54:00 PM EDT [facility] Value Range Interpretation Code Description Data Apurva rce(s) Supporting Document(s) CPK result 62 U/L 26-192 Normal (applies to non-numeric resul ts) [facility] Test Performed By: [place] [address] Director: David Gold MD ID Date Data Source [id number] 12/06/2020 12:54:00 PM EDT [facility] Value Range Interpretation Code Description Data Apurva rce(s) Supporting Document(s) Hepatitis C Virus Ab result Nonreactive Norm al (applies to non-numeric results) [facility] Test Performed By: [place] [address] Director: David Gold MD ID Date Data Source [id number] 12/06/2020 12:54:00 PM EDT [facility] Value Range Interpretation Code Description Data Apurva rce(s) Supporting Document(s) Hep Bs Ag result T-Test Nonreactive Normal (applies to non -numeric results) [facility] Test Performed By: [facility] [address] [place] [address] Director: David Gold MD ID Date Data Source [id number] 12/06/2020 12:54:00 PM EDT [facility] Value Range Interpretation Code Description Data Apurva rce(s) Supporting Document(s) Syphilis Serology result Nonreactive Normal (applies to non-numeric results) [facility] Test Performed By: [facility] [address] [place] [address] Director: David Gold MD ID Date Data Source [id number] 12/05/2020 10:07:00 PM EDT [facility] Name Value Range Interpretation Code Description Data Apurva rce(s) Supporting Document(s) Sodium 138 mmol/L 136-145 Normal (applies to non-numeric resul ts) [facility] Potassium 3.5-5.1 Normal (applies to non-numeric resul ts) [facility] Chloride 99 mmol/L 98-107 Normal (applies to non-numeric resul ts) [facility] Carbon Dioxide CO2 21-32 Normal (applies to non-numer ic results) [facility] Anion Gap 5.0-16.0 Normal (applies to non-numeric resul ts) [facility] BUN 9 mg/dL 7-18 Normal (applies to non-numeric results) [facility] Creatinine,Serum 0.7-1.2 Normal (applies to non-numeric results) [facility] GFR >60 Normal (applies to non-numeric results) [facility] Glucose Level 114 mg/dL 60-99 Above high normal [facility] Reference range is only applicable when patient is fasting Note the following drug interference: Sulfasalazine Sulfapyridine Can see falsely depressed Can see falsely elevated result with up to 17% results with up to 11% decrease in measurement increase in measurement Recommend patients be collected for this test prior to administration of either drug. Calcium 8.5-10.1 Below low normal [facility] Bilirubin,Total 0.1-1.9 Normal (applies to non-numeric results) [facility] SGOT(AST) 90 U/L 15-37 Above high normal [facility] Note the following drug interference: Sulfasalazine Sulfapyridine Can see falsely depressed Can see falsely elevated result with up to 10% results with up to 10% decrease in measurement increase in measurement Recommend patients be collected for this test prior to administration of either drug. SGPT(ALT) 81 U/L 12-78 Above high normal [facility] Note the following drug interference: Sulfasalazine Sulfapyridine Can see falsely depressed Can see falsely elevated result with up to 29% results with up to 10% decrease in measurement increase in measurement Recommend patients be collected for this test prior to administration of either drug. Alkaline Phosphatase 127 U/L 38-126 Above high normal [facility] can increase Alkaline Phosp le vels up to 2 times the normal adult value. Normal values for children and adolescents are 2 to 3 times the normal adult value. Total Protein 6.0-8.2 Normal (applies to non-numeric re sults) [facility] Albumin Level 3.4-5.0 Normal (applies to non-numeric re sults) [facility] ID Date Data Source [id number] 12/05/2020 10:07:00 PM T [facility] Value Range Interpretation Code Description Data Apurva rce(s) Supporting Document(s) Bilirubin,Direct 0.05-0.20 Normal (applies to non-numeric results) [facility] ID Date Data Source [id number] 12/05/2020 10:07:00 PM EDT [facility] Name Value Range Interpretation Code Description Data Apurva rce(s) Supporting Document(s) Phosphorus 2.5-4.9 Normal (applies to non-numeric resul ts) [facility] ID Date Data Source [id number] 12/05/2020 10:07:00 PM EDT [facility] Value Range Interpretation Code Description Data Apurva rce(s) Supporting Document(s) Magnesium 1.8-2.4 Normal (applies to non-numeric resul ts) [facility] ID Date Data Source [id number] 12/05/2020 10:07:00 PM EDT [facility] Value Range Interpretation Code Description Data Apurva rce(s) Supporting Document(s) Thyroid Stimulate Hormone TSH 0.358-3.74 Above high normal [facility] ID Date Data Source [id number] 12/05/2020 09:40:00 PM EDT [facility] Value Range Interpretation Code Description Data Apurva rce(s) Supporting Document(s) White Blood Count 3.5-10.5 Normal (applies to non-numeri c results) [facility] Red Blood Count 3.90-5.00 Normal (applies to non-numeric results) [facility] Hemoglobin 12.0-15.5 Normal (applies to non-numeric resul ts) [facility] Hematocrit 34.9-44.5 Normal (applies to non-numeric resul ts) [facility] Mean Corpuscular Volume 81.2-95.1 Above high normal [facility] Mean Corpuscular Hgb 25.6-32.2 Above high normal [facility] Mean Corpuscular Hgb Conc 32.0-36.0 Normal (applies to no n-numeric results) [facility] Red Cell Distribution Width 11.9-15.5 Normal (appli es to non-numeric results) [facility] Platelet Count 198 x10 3/uL 150-450 Normal (applies to non-numeric results) [facility] Mean Platelet Volume 9.4-12.4 Below low normal [facility] Neutrophils% (Auto) 31.0-71.0 Normal (applies to non-nume fortino results) [facility] Lymphocytes% (Auto) 20.0-55.0 Normal (applies to non-nume fortino results) [facility] Monocytes% (Auto) 4.0-12.0 Normal (applies to non-numeri c results) [facility] Eosinophils% (Auto) 1.0-8.0 Normal (applies to non-nume fortino results) [facility] Basophils% (Auto) 0.0-2.0 Normal (applies to non-numeri c results) [facility] Immature Granulocytes% (Auto) 0.0-2.0 Normal (carmen lies to non-numeric results) [facility] Neutrophils# (Auto) 1.50-6.20 Normal (applies to non-nume fortino results) [facility] Lymphocytes# (Auto) 1.20-4.00 Below low normal [facility] Monocytes# (Auto) 0.00-0.90 Normal (applies to non-numeri c results) [facility] Eosinophils# (Auto) 0.00-0.50 Normal (applies to non-nume fortino results) [facility] Basophils# (Auto) 0.00-0.20 Normal (applies to non-numeri c results) [facility] Immature Granulocytes# (Auto) 0.00-7.00 No rmal (applies to non-numeric results) [facility] ID Date Data Source [id number] 12/08/2020 03:15:00 PM EDT [facility] Name Value Range Interpretation Code Description Data Apurva rce(s) Supporting Document(s) Chlamydia,Urine Negative Normal (applies to non-numeric results) [facility] Test Performed By: [facility] [address] [place] [address] Director: David Gold MD . GC Urine Negative Normal (applies to non-numeric resul ts) [facility] Test Performed By: [facility] [address] [place] [address] Director: David Gold MD . Methodology: Second generation nucleic acid amplification. ID Date Data Source [id number] 12/07/2020 08:27:00 PM EDT [facility] Value Range Interpretation Code Description Data Apurva rce(s) Supporting Document(s) Hepatitis A Ab,IgG result Normal (applies to no n-numeric results) [facility] Result indicates immunity to hepatitis A infection from either vaccination or past exposure to hepatitis A. False-positive results may be observed in patients with CMV antibodies or heterophilic antibodies. REFERENCE VALUE Unvaccinated: Negative Vaccinated: Positive Test Performed by: [facility] [place] [address] Slag Skimmer: Darinel Murray M.D. Ph.D.; CLIA# [id number] ID Date Data Source [id number] 12/06/2020 12:49:00 PM EDT [facility] Name Value Range Interpretation Code Description Data Apurva rce(s) Supporting Document(s) HIV 1/2 Ab p24 Ag Screen Nonreactive Normal (applies to non-numeric results) [facility] Test Performed By: [facility] [address] [place] [address] Director: David Gold MD ID Date Data Source [id number] 12/06/2020 12:49:00 PM EDT [facility] Value Range Interpretation Code Description Data Apurva rce(s) Supporting Document(s) Hep C Ab-T Test Nonreactive Normal (applies to non-numeric results) [facility] Test Performed By: [facility] [address] [place] [address] Director: David Gold MD ID Date Data Source [id number] 12/06/2020 12:49:00 PM EDT [facility] Value Range Interpretation Code Description Data Apurva rce(s) Supporting Document(s) Hep Bs Ag Result T-Test Nonreactive Normal (applies to non -numeric results) [facility] Test Performed By: [place] [address] Director: David Gold MD ID Date Data Source [id number] 12/06/2020 12:49:00 PM EDT [facility] Value Range Interpretation Code Description Data Apurva rce(s) Supporting Document(s) Syphilis Serology Nonreactive Normal (applies to non-numer ic results) [facility] Test Performed By: [facility] [address] [place] [address] Director: David Gold MD ID Date Data Source [id number] 12/06/2020 11:59:00 AM EDT [facility] Value Range Interpretation Code Description Data Apurva rce(s) Supporting Document(s) CPK 62 U/L 26-192 Normal (applies to non-numeric resul ts) [facility] Test Performed By: [facility] [address] [place] [address] Director: David Gold MD ID Date Data Source [id number] 12/05/2020 10:06:00 PM EDT [facility] Name Value Range Interpretation Code Description Data Apurva rce(s) Supporting Document(s) Ethanol Less than 10.0 Normal (applies to non-numeric r esults) [facility] ID Date Data Source [id number] 12/08/2020 04:03:00 PM EDT [facility] Name Value Range Interpretation Code Description Data Apurva rce(s) Supporting Document(s) Chlamydia,Urine result Negative Normal (applies to non-n umeric results) [facility] Test Performed By: [facility] [address] [place] [address] Director: David Gold MD . GC Urine result Negative Normal (applies to non-numeric results) [facility] Test Performed By: [facility] [address] [place] [address] Director: David Gold MD . Methodology: Second generation nucleic acid amplification. ID Date Data Source [id number] 12/05/2020 09:41:00 PM EDT [facility] Name Value Range Interpretation Code Description Data Apurva rce(s) Supporting Document(s) UDS Benzodiazepines Screen Negative Normal (applies to n on-numeric results) [facility] UDS Cocaine Screen Negative Normal (applies to non-numer ic results) [facility] UDS Ampetamine Screen Negative Normal (applies to non-nu meric results) [facility] UDS Cannabinoids Screen Negative Normal (applies to non- numeric results) [facility] UDS Opiates Screen Negative Normal (applies to non-numer ic results) [facility] UDS Barbiturates Screen Negative Normal (applies to non- numeric results) [facility] Threshold Levels Benzodiazepine 200 ng/mL Cocaine 300 ng/mL Amphetamines 1000 ng/mL Cannabinoids (THC) 50 ng/mL Opiates 300 ng/mL Barbiturates 200 ng/mL All positive findings are presumptive and unconfirmed. Confirmation of positive results are performed only at request of provider. Unconfirmed results must not be used for non-medical purposes (i.e. preemployment and legal purposes) ID Date Data Source [id number] 12/05/2020 09:47:00 PM EDT [facility] Collected By: Nurse's Aide Time Collect ed: 2009 Collected By: Nurse's Aide Time Collect ed: 2009 Name Value Range Interpretation Code Description Data Apurva rce(s) Supporting Document(s) Color,Urine Colorl-Dk Y Normal (applies to non-numeric res ults) [facility] Clarity,Urine Clear Normal (applies to non-numeric re sults) [facility] Specific Moore,Urine 1.005-1.030 Normal (applies to non- numeric results) [facility] pH,Urine 5.0-8.0 Normal (applies to non-numeric resul ts) [facility] Protein,Urine Negative Normal (applies to non-numeric re sults) [facility] Glucose,Urine Negative Normal (applies to non-numeric re sults) [facility] Ketones,Urine Negative Normal (applies to non-numeric re sults) [facility] Blood,Urine Negative [facility] Bilirubin,Urine Negative Normal (applies to non-numeric results) [facility] Urobilinogen,Urine 0.2-1.0 Normal (applies to non-numer ic results) [facility] Leukocyte Esterase,Urine Negative Normal (applies to non -numeric results) [facility] Nitrite,Urine Negative Normal (applies to non-numeric re sults) [facility] ID Date Data Source [id number] 12/05/2020 09:47:00 PM EDT [facility] Collected By: Nurse's Aide Time Collect ed: 2009 Collected By: Nurse's Aide Time Collect ed: 2009 Name Value Range Interpretation Code Description Data Apurva rce(s) Supporting Document(s) RBC,Urine None Seen [facility] WBC,Urine None Seen [facility] Casts,Urine None Seen Normal (applies to non-numeric resu lts) [facility] Epithelial Cells,Urine None - Few Normal (applies to non-n umeric results) [facility] Bacteria,Urine None [facility]en [facility] Mucus,Urine None Seen [facility] ID Date Data Source [id number] 12/05/2020 03:44:00 PM EDT [facility] Name Value Range Interpretation Code Description Data Apurva rce(s) Supporting Document(s) SARS-CoV-2 (COVID 19) NEGATIVE - SARS-CoV-2 (COVID19) [facility] This lab was ordered by [facility] a nd reported by [facility]. ID Date Data Source Low Dose Lung Screening CT Chest 06/22/2020 10:10:30 AM EDT e[facility] ([facility]) Name Value Range Interpretation Code Description Data Apurva rce(s) Supporting Document(s) Low Dose Lung Screening CT [facility] eCW1 ([facility]) ID Date Data Source [id number] 05/11/2020 08:12:00 PM EDT [facility] [...] and basilic veins. Professional interpretation performed at [facility] .End of diagnostic report for accession: [id number] Interpreted: Jeyson Potts MDTranscribed: 05/11/2020 08:09 PMSigned: 05/11/2020 08:12 PM Jeyson Potts MD [facility] # [id number] BILL # [id number] Name Value Range Interpretation Code Description Data Apurva rce(s) Supporting Document(s) ID Date Data Source [id number] 05/11/2020 07:52:23 AM EDT [facility] Name Value Range Interpretation Code Description Data Apurva rce(s) Supporting Document(s) HGB 9.6 g/dL (12.0-16.0) L [facility] HCT 29.7 % (36.0-47.0) L [facility] ID Date Data Source [id number] 05/11/2020 12:50:54 AM EDT [facility] PATIENT ABO/Rh A POSITIVEANT IBODY SCREEN NEGATIVESPEC EXP DATE 05/13/2020TESTING SITE PERFORMED AT [address] [place], [place] [address]OOD BANK COMMENT BLOOD TYPE CONFIRMED.UNIT NUMBER [id number] COMPONENT TYPE LEUKOPOOR RED CELLSUNIT DIVISION 00STATUS OF UNIT TRANSFUSEDTRANSFUSION STATUS OK TO TRANSFUSECROSSMATCH RESULT COMPATIBLE Name Value Range Interpretation Code Description Data Apurva rce(s) Supporting Document(s) ID Date Data Source [id number] 05/10/2020 06:16:35 PM EDT [facility] Name Value Range Interpretation Code Description Data Apurva rce(s) Supporting Document(s) HGB 7.8 g/dL (12.0-16.0) L [facility] HCT 23.8 % (36.0-47.0) L [facility] ID Date Data Source [id number] 05/10/2020 01:24:51 PM EDT [facility] Name Value Range Interpretation Code Description Data Apurva rce(s) Supporting Document(s) HGB 8.8 g/dL (12.0-16.0) L [facility] HCT 27.3 % (36.0-47.0) L [facility] ID Date Data Source [id number] 05/10/2020 07:07:26 AM EDT [facility] Name Value Range Interpretation Code Description Data Apurva rce(s) Supporting Document(s) MAGNESIUM 1.8 mg/dL (1.7-2.4) [facility] ID Date Data Source [id number] 05/10/2020 07:07:26 AM EDT [facility] Name Value Range Interpretation Code Description Data Apurva rce(s) Supporting Document(s) PHOSPHORUS 3.1 mg/dL (2.5-4.5) [facility] ID Date Data Source [id number] 05/10/2020 07:07:26 AM EDT [facility] Name Value Range Interpretation Code Description Data Apurva rce(s) Supporting Document(s) SODIUM 139 mmol/L (136-145) [facility] POTASSIUM 3.4 mmol/L (3.6-5.2) L [facility] CHLORIDE 106 mmol/L (100-108) [facility] CO2 22 mmol/L (22-31) [facility] ANION GAP 11 mmol/L (7-16) [facility] UREA NITROGEN 3 mg/dL (7-24) L [facility] CREATININE 0.68 mg/dL (0.60-1.00) [facility] BUN/CREAT RATIO 4.4 RATIO (10.0-20.0) L [facility] GLUCOSE 104 mg/dL (70-99) H [facility] CALCIUM 7.8 mg/dL (8.4-10.2) L [facility] GFR >60 ml/min/1.73m2 (>59) [facility] GFR ( AMER) >60 ml/min/1.73m2 (>59) [facility] GFR INTERPRETATION Lab [facility] e of [place] --NORMAL KIDNEY FUNCTION OR MILD DISEASE - GFR >OR= 60CHRONIC KIDNEY DISEASE - GFR 15 - 59RENAL FAILURE - GFR <15 Est. GFR calculation based on the MDRDstudy equation, which assumes a steadystate for creatinine. Est. GFR should notbe used for medication dosing. ID Date Data Source [id number] 05/10/2020 06:59:27 AM EDT [facility] Name Value Range Interpretation Code Description Data Apurva rce(s) Supporting Document(s) APTT 68.6 s (22.0-34.3) H [facility] ID Date Data Source [id number] 05/10/2020 06:40:19 AM EDT [facility] Name Value Range Interpretation Code Description Data Apurva rce(s) Supporting Document(s) HGB 8.3 g/dL (12.0-16.0) L [facility] HCT 26.0 % (36.0-47.0) L [facility] ID Date Data Source [id number] 2020 10:43:08 PM EDT [facility] Name Value Range Interpretation Code Description Data Apurva rce(s) Supporting Document(s) APTT 42.7 s (22.0-34.3) H [facility] ID Date Data Source [id number] 2020 11:02:31 PM EDT [facility] Name Value Range Interpretation Code Description Data Apurva rce(s) Supporting Document(s) SPECIMEN DESCRIPTION [facility] C DIFF TOXIN B (NEG) [facility] 027 NAP1 B1 (NEG) [facility] COMMENT [facility] IS CLINICALLY INDICATED, PLEASE CONTA CT THE [facility]OLOGY LAB[facility] ([phone]) WITHIN 3 DAYS OF THIS REPORT. ID Date Data Source [id number] 2020 04:48:27 PM EDT [facility] Name Value Range Interpretation Code Description Data Apurva rce(s) Supporting Document(s) HGB 9.1 g/dL (12.0-16.0) L [facility] HCT 29.4 % (36.0-47.0) L [facility] ID Date Data Source [id number] 05/10/2020 10:06:27 AM EDT [facility] [place], [place] [address]Tel# SURGICAL PATHOLOGY REPORTPatient Name:CHERIE JAMESB:2Received:2020Accession #:[id number](s) [...] Out By Shahzad Troy M.D. [facility], [place], [place] [address]Technical component performed at [facility] [place] [employer] [facility], Histopathology, [address] [place] [address], [phone].Reported at [facility], [address] [place] [address], [phone].This report may include immunohistochemical or in-situ hybridizationresults. Testing was developed and the performance characteristicsdetermined by [employer], as required byCLIA '88. The FDA has determined that approval for specific use is notnecessary for clinical use. The quality of Hematoxylin and Eosin stainsand as applicable, for all immunohistochemical and/or special stains,including positive and negative controls, were reviewed and consider edappropriate.ICD codes: R89.7CPT4 codes: A: 01004XO: 86403N Name Value Range Interpretation Code Description Data Apurva rce(s) Supporting Document(s) ID Date Data Source [id number] 2020 01:47:24 PM EDT [facility] Name Value Range Interpretation Code Description Data Apurva rce(s) Supporting Document(s) POC GLUCOSE 83 mg/dL (70-99) [facility] NOTIFIED NURSEPERFORMED BY CLINICAL S TAFF ID Date Data Source [id number] 2020 06:43:20 AM EDT [facility] Name Value Range Interpretation Code Description Data Apurva rce(s) Supporting Document(s) APTT 55.0 s (22.0-34.3) H [facility] ID Date Data Source [id number] 2020 06:40:39 AM EDT [facility] Name Value Range Interpretation Code Description Data Apurva rce(s) Supporting Document(s) WBC 8.8 10*3/uL (4.1-11.0) [facility] [place] RBC 2.47 10*6/uL (4.00-5.40) L [facility] HGB 7.5 g/dL (12.0-16.0) L [facility] HCT 23.5 % (36.0-47.0) L [facility] MCV 95.0 fL (80.0-95.0) [facility] MCH 30.5 pg (27.0-32.0) [facility] MCHC 32.1 g/dL (32.0-36.0) [facility] RDW 17.3 % (10.5-14.5) H [facility] PLT 484 10*3/uL (150-450) H [facility] MPV 9.4 fL (7.1-10.7) [facility] NEUT % 68.1 % (35.0-75.0) [facility] LYMPH % 17.1 % (16.0-52.0) [facility] MONO % 10.1 % (0.0-8.0) H [facility] EOS % 2.4 % (0.0-5.0) [facility] BASO % 2.3 % (0.0-4.0) [facility] NEUT # 6.0 10*3/uL (1.8-7.7) [facility] LYMPH # 1.5 10*3/uL (1.2-4.8) [facility] MONO # 0.9 10*3/uL (0.0-0.8) H [facility] Eosinophils [#/volume] in Blood by Automated count 0.2 10*3/uL (0.0-0 .5) [facility] BASO # 0.2 10*3/uL (0.0-0.2) [facility] ID Date Data Source [id number] 05/08/2020 09:34:49 PM EDT [facility] Name Value Range Interpretation Code Description Data Apurva rce(s) Supporting Document(s) APTT 61.7 s (22.0-34.3) H [facility] ID Date Data Source [id number] 05/08/2020 02:20:50 PM EDT [facility] Name Value Range Interpretation Code Description Data Apurva rce(s) Supporting Document(s) APTT 74.6 s (22.0-34.3) H [facility] ID Date Data Source [id number] 05/08/2020 10:35:00 AM EDT [facility] Name Value Range Interpretation Code Description Data Apurva rce(s) Supporting Document(s) SARS coronavirus 2 RNA [Presence] in Res piratory specimen by MINDY with probe detection Lab [facility] This lab was reported by [facility]. ID Date Data Source [id number] 05/08/2020 03:28:37 PM EDT [facility] Name Value Range Interpretation Code Description Data Apurva rce(s) Supporting Document(s) SPECIMEN DESCRIPTION [facility] COVID19 RESULT (NDET) Lab [facility] THIS ASSAY AMPLIFIES AND DETECTSTHE TARG ET RNA USING REAL-TIME PCR.NEGATIVE 2019_NCOV RT-PCR RESULTS DONOT PRECLUDE 2019_NCOV INFECTION ANDSHOULD NOT BE USED THE SOLE BASISFOR PATIENT MANAGEMENT DECISIONS. COMMENT [facility] APPR[facility] Y [facility]. THE [place]. FOODAND DRUG ADMINISTRATION HAS NOT APPROVEDTHIS TEST. NEGATIVE RESULTS DO NOT [id number] INFECTION AND SHOULD NOT BEUSED THE SOLE BASIS FOR CLINICALDIAGNOSIS OR PATIENT MANAGEMENT DECISIONS.EMAILED TO [facility] AT [address] [place] [address] [id number]. FIRST TEST [facility] DATE OF SYMPT ONSET [facility] H[facility]ED [facility] [place] [facility] CONGREGATE CARE SET [facility] ID Date Data Source [id number] 05/08/2020 07:10:35 AM EDT [facility] Name Value Range Interpretation Code Description Data Apurva rce(s) Supporting Document(s) SODIUM 138 mmol/L (136-145) [facility] POTASSIUM 3.6 mmol/L (3.6-5.2) [facility] CHLORIDE 105 mmol/L (100-108) [facility] CO2 21 mmol/L (22-31) L [facility] ANION GAP 12 mmol/L (7-16) [facility] UREA NITROGEN 6 mg/dL (7-24) L [facility] CREATININE 1.04 mg/dL (0.60-1.00) H [facility] BUN/CREAT RATIO 5.8 RATIO (10.0-20.0) L [facility] GLUCOSE 105 mg/dL (70-99) H [facility] CALCIUM 8.2 mg/dL (8.4-10.2) L [facility] GFR 53 ml/min/1.73m2 (>59) L [facility] GFR ( AMER) >60 ml/min/1.73m2 (>59) [facility] GFR INTERPRETATION Lab [facility] e of [place] --NORMAL KIDNEY FUNCTION OR MILD DISEASE - GFR >OR= 60CHRONIC KIDNEY DISEASE - GFR 15 - 59RENAL FAILURE - GFR <15 Est. GFR calculation based on the MDRDstudy equation, which assumes a steadystate for creatinine. Est. GFR should notbe used for medication dosing. ID Date Data Source [id number] 05/08/2020 07:10:35 AM EDT [facility] Name Value Range Interpretation Code Description Data Apurva rce(s) Supporting Document(s) MAGNESIUM 1.9 mg/dL (1.7-2.4) [facility] ID Date Data Source [id number] 05/08/2020 06:48:47 AM EDT [facility] Name Value Range Interpretation Code Description Data Apurva rce(s) Supporting Document(s) APTT 87.7 s (22.0-34.3) H [facility] ID Date Data Source [id number] 05/08/2020 06:46:31 AM EDT [facility] Name Value Range Interpretation Code Description Data Apurva rce(s) Supporting Document(s) WBC 11.2 10*3/uL (4.1-11.0) H [facility] RBC 3.00 10*6/uL (4.00-5.40) L [facility] HGB 9.2 g/dL (12.0-16.0) L [facility] HCT 28.9 % (36.0-47.0) L [facility] MCV 96.3 fL (80.0-95.0) H [facility] MCH 30.7 pg (27.0-32.0) [facility] MCHC 31.8 g/dL (32.0-36.0) L [facility] RDW 17.4 % (10.5-14.5) H [facility] PLT 609 10*3/uL (150-450) H [facility] MPV 9.5 fL (7.1-10.7) [facility] NEUT % 68.7 % (35.0-75.0) [facility] LYMPH % 19.0 % (16.0-52.0) [facility] MONO % 8.6 % (0.0-8.0) H [facility] EOS % 2.4 % (0.0-5.0) [facility] BASO % 1.3 % (0.0-4.0) [facility] NEUT # 7.7 10*3/uL (1.8-7.7) [facility] LYMPH # 2.1 10*3/uL (1.2-4.8) [facility] MONO # 1.0 10*3/uL (0.0-0.8) H [facility] Eosinophils [#/volume] in Blood by Automated count 0.3 10*3/uL (0.0-0 .5) [facility] BASO # 0.1 10*3/uL (0.0-0.2) [facility] ID Date Data Source [id number] 05/07/2020 10:37:54 PM EDT [facility] Name Value Range Interpretation Code Description Data Apurva rce(s) Supporting Document(s) APTT 80.0 s (22.0-34.3) H [facility] ID Date Data Source [id number] 05/07/2020 04:34:59 PM EDT [facility] Name Value Range Interpretation Code Description Data Apurva rce(s) Supporting Document(s) APTT 61.4 s (22.0-34.3) H [facility] ID Date Data Source [id number] 05/07/2020 04:17:37 PM EDT [facility] Name Value Range Interpretation Code Description Data Apurva rce(s) Supporting Document(s) HGB 8.7 g/dL (12.0-16.0) L [facility] HCT 26.5 % (36.0-47.0) L [facility] ID Date Data Source [id number] 05/07/2020 08:01:54 AM EDT [facility] Name Value Range Interpretation Code Description Data Apurva rce(s) Supporting Document(s) PHOSPHORUS 2.4 mg/dL (2.5-4.5) L [facility] ID Date Data Source [id number] 05/07/2020 08:01:54 AM EDT [facility] Name Value Range Interpretation Code Description Data Apurva rce(s) Supporting Document(s) MAGNESIUM 1.6 mg/dL (1.7-2.4) L [facility] ID Date Data Source [id number] 05/07/2020 08:01:54 AM EDT [facility] Name Value Range Interpretation Code Description Data Apurva rce(s) Supporting Document(s) TOTAL PROTEIN 5.4 g/dL (6.4-8.2) L [facility] ALBUMIN 2.3 g/dL (3.2-4.5) L [facility] GLOBULIN 3.1 g/dL (2.7-4.3) [facility] ALB/GLOB RATIO 0.7 RATIO [facility] BILIRUBIN,TOTAL 0.5 mg/dL (0.0-1.0) [facility] PLEASE NOTE:Total bilirubin results may be falselyelevated in patients taking Eltrombopag. BILIRUBIN,CONJUGATED 0.3 mg/dL (0.0-0.3) [facility] BILIRUBIN,UNCONJ. 0.2 mg/dL (0.0-0.7) [facility] ALKALINE PHOSPHATASE 105 U/L (45-117) [facility] AST (SGOT) 41 U/L (11-39) H [facility] ALT (SGPT) 33 U/L (12-78) [facility] ID Date Data Source [id number] 05/07/2020 08:01:54 AM EDT [facility] Name Value Range Interpretation Code Description Data Apurva rce(s) Supporting Document(s) SODIUM 138 mmol/L (136-145) [facility] POTASSIUM 3.8 mmol/L (3.6-5.2) [facility] CHLORIDE 104 mmol/L (100-108) [facility] CO2 24 mmol/L (22-31) [facility] ANION GAP 10 mmol/L (7-16) [facility] UREA NITROGEN 5 mg/dL (7-24) L [facility] CREATININE 0.80 mg/dL (0.60-1.00) [facility] BUN/CREAT RATIO 6.3 RATIO (10.0-20.0) L [facility] GLUCOSE 98 mg/dL (70-99) [facility] CALCIUM 8.3 mg/dL (8.4-10.2) L [facility] GFR >60 ml/min/1.73m2 (>59) [facility] [facility] [place] GFR ( AMER) >60 ml/min/1.73m2 (>59) [facility] GFR INTERPRETATION [facility] --NORMAL KIDNEY FUNCTION OR MILD DISEASE - GFR >OR= 60CHRONIC KIDNEY DISEASE - GFR 15 - 59RENAL FAILURE - GFR <15 Est. GFR calculation based on the MDRDstudy equation, which assumes a steadystate for creatinine. Est. GFR should notbe used for medication dosing. ID Date Data Source [id number] 05/07/2020 07:29:24 AM EDT [facility] Name Value Range Interpretation Code Description Data Apurva rce(s) Supporting Document(s) APTT 38.9 s (22.0-34.3) H [facility] ID Date Data Source [id number] 05/07/2020 07:18:03 AM EDT [facility] Name Value Range Interpretation Code Description Data Apurva rce(s) Supporting Document(s) WBC 9.1 10*3/uL (4.1-11.0) [facility] [place] RBC 2.71 10*6/uL (4.00-5.40) L [facility] HGB 8.6 g/dL (12.0-16.0) L [facility] HCT 25.9 % (36.0-47.0) L [facility] MCV 95.5 fL (80.0-95.0) H [facility] MCH 31.7 pg (27.0-32.0) [facility] MCHC 33.2 g/dL (32.0-36.0) [facility] RDW 16.8 % (10.5-14.5) H [facility] PLT 448 10*3/uL (150-450) [facility] MPV 9.8 fL (7.1-10.7) [facility] NEUT % 68.9 % (35.0-75.0) [facility] LYMPH % 18.3 % (16.0-52.0) [facility] MONO % 9.2 % (0.0-8.0) H [facility] EOS % 2.5 % (0.0-5.0) [facility] BASO % 1.1 % (0.0-4.0) [facility] NEUT # 6.2 10*3/uL (1.8-7.7) [facility] LYMPH # 1.7 10*3/uL (1.2-4.8) [facility] MONO # 0.8 10*3/uL (0.0-0.8) [facility] Eosinophils [#/volume] in Blood by Automated count 0.2 10*3/uL (0.0-0 .5) [facility] BASO # 0.1 10*3/uL (0.0-0.2) [facility] ID Date Data Source [id number] 05/06/2020 05:45:01 PM EDT [facility] Name Value Range Interpretation Code Description Data Apurva rce(s) Supporting Document(s) HGB 9.2 g/dL (12.0-16.0) L [facility] HCT 28.2 % (36.0-47.0) L [facility] ID Date Data Source [id number] 05/08/2020 04:04:00 PM EDT [facility] [place] [address] [address] [place], [place] [address] NAME: ALEX JAMESDATE OF : 2REPORT: DISCHARGE SUMMARYPATIENT NUMBER: [id number] STATUS: IPMEDICAL RECORD NUMBER: [id number] OF ADMISSION: 04/25/2020DATE OF DISCHARGE: 05/06/2020ROOM: 00DISCHARGE/TRANSFER [...] Otherwise[facility] She is to continue on the thiamine. GI will continue to followher.DICTATED BY: WADE Elizabethictated: 05/06/2020 12:51DT: 05/06/2020 13:34Job #: [id number]: [facility] Postmates g enerated reports are notconfirmed or authenticated unless they are signed by the providerElectronically Authenticated by:LOR PELAEZ MD On 05/08/2020 04:04 PM EDT Name Value Range Interpretation Code Description Data Apurva rce(s) Supporting Document(s) ID Date Data Source [id number] 05/06/2020 11:09:23 AM EDT [facility] Name Value Range Interpretation Code Description Data Apurva rce(s) Supporting Document(s) APTT 57.0 s (22.0-34.3) H [facility] ID Date Data Source [id number] 05/06/2020 04:42:35 AM EDT [facility] Name Value Range Interpretation Code Description Data Apurva rce(s) Supporting Document(s) WBC 8.3 10*3/uL (4.1-11.0) [facility] [place] RBC 2.93 10*6/uL (4.00-5.40) L [facility] HGB 9.0 g/dL (12.0-16.0) L [facility] HCT 27.7 % (36.0-47.0) L [facility] MCV 94.7 fL (80.0-95.0) [facility] MCH 30.8 pg (27.0-32.0) [facility] MCHC 32.5 g/dL (32.0-36.0) [facility] RDW 17.0 % (10.5-14.5) H [facility] PLT 490 10*3/uL (150-450) H [facility] MPV 8.7 fL (7.1-10.7) [facility] ID Date Data Source [id number] 05/06/2020 04:53:50 AM EDT [facility] Name Value Range Interpretation Code Description Data Apurva rce(s) Supporting Document(s) APTT 60.8 s (22.0-34.3) H [facility] ID Date Data Source [id number] 05/06/2020 03:29:44 AM EDT [facility] Name Value Range Interpretation Code Description Data Apurva rce(s) Supporting Document(s) PHOSPHORUS 3.0 mg/dL (2.5-4.5) [facility] ID Date Data Source [id number] 05/06/2020 03:29:44 AM EDT [facility] Name Value Range Interpretation Code Description Data Apurva rce(s) Supporting Document(s) SODIUM 142 mmol/L (136-145) [facility] POTASSIUM 3.6 mmol/L (3.6-5.2) [facility] CHLORIDE 107 mmol/L (100-108) [facility] CO2 27 mmol/L (22-31) [facility] ANION GAP 8 mmol/L (7-16) [facility] UREA NITROGEN 5 mg/dL (7-24) L [facility] CREATININE 0.74 mg/dL (0.60-1.00) [facility] BUN/CREAT RATIO 6.8 RATIO (10.0-20.0) L [facility] GLUCOSE 102 mg/dL (70-99) H [facility] CALCIUM 8.3 mg/dL (8.4-10.2) L [facility] TOTAL PROTEIN 5.8 g/dL (6.4-8.2) L [facility] ALBUMIN 2.5 g/dL (3.2-4.5) L [facility] GLOBULIN 3.3 g/dL (2.7-4.3) [facility] ALB/GLOB RATIO 0.8 RATIO [facility] ALKALINE PHOSPHATASE 120 U/L (45-117) H [facility] BILIRUBIN,TOTAL 0.4 mg/dL (0.0-1.0) [facility] PLEASE NOTE:Total bilirubin results may be falselyelevated in patients taking Eltrombopag. AST (SGOT) 51 U/L (11-39) H [facility] ALT (SGPT) 40 U/L (12-78) [facility] GFR >60 ml/min/1.73m2 (>59) [facility] GFR ( AMER) >60 ml/min/1.73m2 (>59) [facility] GFR INTERPRETATION [facility] --NORMAL KIDNEY FUNCTION OR MILD DISEASE - GFR >OR= 60CHRONIC KIDNEY DISEASE - GFR 15 - 59RENAL FAILURE - GFR <15 Est. GFR calculation based on the MDRDstudy equation, which assumes a steadystate for creatinine. Est. GFR should notbe used for medication dosing. ID Date Data Source [id number] 05/06/2020 03:29:44 AM EDT [facility] Name Value Range Interpretation Code Description Data Apurva rce(s) Supporting Document(s) MAGNESIUM 1.8 mg/dL (1.7-2.4) [facility] ID Date Data Source [id number] 05/06/2020 03:27:19 AM EDT [facility] Name Value Range Interpretation Code Description Data Apurva rce(s) Supporting Document(s) CALCIUM IONIZED 5.04 mg/dL (4.64-5.28) [facility] IONIZED CALCIUM NORMALIZED TO PH 7.40 AN D 37 DEGREES C. ID Date Data Source [id number] 05/06/2020 02:33:31 AM EDT [facility] Name Value Range Interpretation Code Description Data Apurva rce(s) Supporting Document(s) PT 11.9 s (9.2-11.9) [facility] INR 1.14 [facility] SUGGESTED THERAPEUTIC RANGES USING INR F ORSTABILIZED ANTICOAGULATED PATIENTS:STANDARD DOSE THERAPY INR 2.0-3.0 DVT, PE, PREVENT DVT OR EMBOLISMHIGH DOSE THERAPY INR 2.5-3.5 PREVENT EMBOLISM FROM MECHANICAL HEART VALVE ID Date Data Source [id number] 05/05/2020 11:02:52 PM EDT [facility] Name Value Range Interpretation Code Description Data Apurva rce(s) Supporting Document(s) WBC 8.7 10*3/uL (4.1-11.0) [facility] [place] RBC 2.83 10*6/uL (4.00-5.40) L [facility] HGB 9.2 g/dL (12.0-16.0) L [facility] HCT 27.1 % (36.0-47.0) L [facility] MCV 95.8 fL (80.0-95.0) H [facility] MCH 32.6 pg (27.0-32.0) H [facility] MCHC 34.0 g/dL (32.0-36.0) [facility] RDW 17.0 % (10.5-14.5) H [facility] PLT 447 10*3/uL (150-450) [facility] MPV 8.5 fL (7.1-10.7) [facility] Procedure Social History Code Duration Value Status Description Data Source(s ) Smoking 06/20/2021 12:00:00 AM EDT Unknown if ever smoked comp leted Unknown if ever smoked [facility] ([facility]) Smoking 06/08/2021 12:00:00 AM EDT Current Smoker completed Curre nt Smoker eCW1 ([facility]) Smoking 06/08/2021 12:00:00 AM EDT Current Smoker completed Curre nt Smoker eCW1 ([facility]) Smoking 06/08/2021 12:00:00 AM EDT Current Smoker completed Curre nt Smoker eCW1 ([facility]) Smoking 06/08/2021 12:00:00 AM EDT Current Smoker completed Curre nt Smoker eCW1 ([facility]) Smoking 06/05/2021 12:00:00 AM EDT Current Smoker completed Curre nt Smoker eCW1 ([facility]) Smoking 05/15/2021 12:00:00 AM EDT Current Smoker completed Curre nt Smoker eCW1 ([facility]) Smoking 05/04/2021 12:00:00 AM EDT Current Smoker completed Curre nt Smoker eCW1 ([facility]) Smoking 05/04/2021 12:00:00 AM EDT Current Smoker completed Curre nt Smoker eCW1 ([facility]) Smoking 05/04/2021 12:00:00 AM EDT Current Smoker completed Curre nt Smoker eCW1 ([facility]) Smoking 05/04/2021 12:00:00 AM EDT Current Smoker completed Curre nt Smoker eCW1 ([facility]) Smoking 04/12/2021 12:00:00 AM EDT Current Smoker completed Curre nt Smoker eCW1 ([facility]) Smoking 04/12/2021 12:00:00 AM EDT Current Smoker completed Curre nt Smoker eCW1 ([facility]) Smoking 04/05/2021 12:00:00 AM EDT Unknown if ever smoked comp leted Unknown if ever smoked [facility] ([facility]) Smoking 03/07/2021 12:00:00 AM EDT Unknown if ever smoked comp leted Unknown if ever smoked [facility] ([facility]) Smoking 01/16/2021 12:00:00 AM EDT Unknown if ever smoked comp leted Unknown if ever smoked [facility] ([facility]) Smoking 01/09/2021 12:00:00 AM EDT Unknown if ever smoked comp leted Unknown if ever smoked [facility] ([facility]) Smoking 01/01/2021 12:00:00 AM EDT Current Smoker completed Curre nt Smoker eCW1 ([facility]) Smoking 01/01/2021 12:00:00 AM EDT Current Smoker completed Curre nt Smoker eCW1 ([facility]) Smoking 01/01/2021 12:00:00 AM EDT Current Smoker completed Curre nt Smoker eCW1 ([facility]) Smoking 01/01/2021 12:00:00 AM EDT Current Smoker completed Curre nt Smoker eCW1 ([facility]) Smoking 01/01/2021 12:00:00 AM EDT Current Smoker completed Curre nt Smoker eCW1 ([facility]) Smoking 12/26/2020 12:00:00 AM EDT Unknown if ever smoked comp leted Unknown if ever smoked [facility] ([facility]) Smoking 12/19/2020 12:00:00 AM EDT Unknown if ever smoked comp leted Unknown if ever smoked [facility] ([facility]) Smoking 12/12/2020 12:00:00 AM EDT Unknown if ever smoked comp leted Unknown if ever smoked [facility] ([facility]) Smoking 11/21/2020 12:00:00 AM EDT Unknown if ever smoked comp leted Unknown if ever smoked [facility] ([facility]) Smoking 11/14/2020 12:00:00 AM EDT Unknown if ever smoked comp leted Unknown if ever smoked [facility] ([facility]) Smoking 10/19/2020 12:00:00 AM EST Unknown if ever smoked comp leted Unknown if ever smoked [facility] ([facility]) Smoking 10/17/2020 12:00:00 AM EST Unknown if ever smoked comp leted Unknown if ever smoked [facility] ([facility]) Smoking 10/02/2020 12:00:00 AM EST Current Smoker completed Curre nt Smoker eCW1 ([facility]) Smoking 10/02/2020 12:00:00 AM EST Current Smoker completed Curre nt Smoker eCW1 ([facility]) Smoking 10/02/2020 12:00:00 AM EST Current Smoker completed Curre nt Smoker eCW1 ([facility]) Smoking 10/02/2020 12:00:00 AM EST Current Smoker completed Curre nt Smoker eCW1 ([facility]) Smoking 10/02/2020 12:00:00 AM EST Current Smoker completed Curre nt Smoker eCW1 ([facility]) Smoking 10/02/2020 12:00:00 AM EST Current Smoker completed Curre nt Smoker eCW1 ([facility]) Smoking 09/27/2020 12:00:00 AM EST Unknown if ever smoked comp leted Unknown if ever smoked [facility] ([facility]) Smoking 09/05/2020 12:00:00 AM EST Unknown if ever smoked comp leted Unknown if ever smoked [facility] ([facility]) Smoking 08/30/2020 12:00:00 AM EST Current Smoker completed Curre nt Smoker eCW1 ([facility]) Smoking 08/30/2020 12:00:00 AM EST Current Smoker completed Curre nt Smoker eCW1 ([facility]) Smoking 08/30/2020 12:00:00 AM EST Current Smoker completed Curre nt Smoker eCW1 ([facility]) Smoking 08/30/2020 12:00:00 AM EST Current Smoker completed Curre nt Smoker eCW1 ([facility]) Smoking 08/30/2020 12:00:00 AM EST Current Smoker completed Curre nt Smoker eCW1 ([facility]) Smoking 08/22/2020 12:00:00 AM EST Unknown if ever smoked comp leted Unknown if ever smoked [facility] ([facility]) Smoking 07/28/2020 12:00:00 AM EST Unknown if ever smoked comp leted Unknown if ever smoked [facility] ([facility]) Smoking 07/25/2020 12:00:00 AM EST Unknown if ever smoked comp leted Unknown if ever smoked [facility] ([facility]) Smoking 07/11/2020 12:00:00 AM EST Current Smoker completed Curre nt Smoker eCW1 ([facility]) Smoking 07/11/2020 12:00:00 AM EST Current Smoker completed Curre nt Smoker eCW1 ([facility]) Smoking 07/04/2020 12:00:00 AM EST Unknown if ever smoked comp leted Unknown if ever smoked [facility] ([facility]) Smoking 06/20/2020 12:00:00 AM EDT Unknown if ever smoked comp leted Unknown if ever smoked [facility] ([facility]) Smoking 06/06/2020 12:00:00 AM EDT Unknown if ever smoked comp leted Unknown if ever smoked [facility] ([facility]) Vital Signs ID Date Data Source UNK Name Value Range Interpretation Code Description Data Source(s) Body weight 156 [lb_av] 156 [lb_av] eCW1 ([facility]) Body weight 70.76 kg 70.76 kg W1 ([facility] Body height [in_i] eCW1 ([facility]) Body mass index (BMI) [Ratio] 28.08 kg/m2 28.08 kg/m2 [facility] ([facility]) Heart rate 116 /min 116 /min eCW1 ([facility]) Respiratory rate 18 /min 18 /min eCW1 ([facility]) Body temperature 97.8 [degF] 97.8 [degF] eCW1 ( [facility]) Systolic blood pressure 132 mm[Hg] 132 mm[Hg] e CW1 ([facility]) Diastolic blood pressure 78 mm[Hg] 78 mm[Hg] eCW1 ([facility]) Systolic blood pressure 128 mm[Hg] 128 mm[Hg] e CW1 ([facility]) Diastolic blood pressure 70 mm[Hg] 70 mm[Hg] eCW1 ([facility]) Body mass index (BMI) [Ratio] 28.61 kg/m2 28.61 kg/m2 [facility] ([facility]) Heart rate 101 /min 101 /min eCW1 ([facility]) Respiratory rate 18 /min 18 /min eCW1 ([facility]) Body temperature 97.8 [degF] 97.8 [degF] eCW1 ( [facility]) Body weight 72.12 kg 72.12 kg eCW1 ([facility] Body height [in_i] eCW1 ([facility]) Body weight 159 [lb_av] 159 [lb_av] eCW1 ([facility]) Body height 0.00 in Normal (applies to non-numeric resu lts) 0.00 in [facility] ([facility]) Body weight Measured 0.00 lbs Normal (applies to n on-numeric results) 0.00 lbs [facility] ([facility]) Body mass index (BMI) [Ratio] 0.00 kg/m2 No rmal (applies to non-numeric results) 0.00 kg/m2 [facility] ([facility]) Systolic blood pressure 0 mm[Hg] Normal (applies t o non-numeric results) 0 mm[Hg] [facility] ([facility]) Diastolic blood pressure 0 mm[Hg] Normal (applies to non-numeric results) 0 mm[Hg] [facility] ([facility]) Body weight 162 [lb_av] 162 [lb_av] eCW1 ([facility]) Body height [in_i] eCW1 ([facility]) Body mass index (BMI) [Ratio] 29.15 kg/m2 29.15 kg/m2 eCW1 ([facility]) Heart rate 107 /min 107 /min eCW1 ([facility]) Respiratory rate 18 /min 18 /min eCW1 ([facility]) Body temperature 95.1 [degF] 95.1 [degF] eCW1 ( [facility]) Systolic blood pressure 132 mm[Hg] 132 mm[Hg] e CW1 ([facility]) Diastolic blood pressure 82 mm[Hg] 82 mm[Hg] eCW1 ([facility]) Body height 0.00 in Normal (applies to non-numeric resu lts) 0.00 in [facility] ([facility]) Body weight Measured 0.00 lbs Normal (applies to n on-numeric results) 0.00 lbs [facility] ([facility]) Body mass index (BMI) [Ratio] 0.00 kg/m2 No rmal (applies to non-numeric results) 0.00 kg/m2 [facility] ([facility]) Systolic blood pressure 0 mm[Hg] Normal (applies t o non-numeric results) 0 mm[Hg] [facility] ([facility]) Diastolic blood pressure 0 mm[Hg] Normal (applies to non-numeric results) 0 mm[Hg] [facility] ([facility]) Body height 0.00 in Normal (applies to non-numeric resu lts) 0.00 in [facility] ([facility]) Body weight Measured 0.00 lbs Normal (applies to n on-numeric results) 0.00 lbs [facility] ([facility]) Body mass index (BMI) [Ratio] 0.00 kg/m2 No rmal (applies to non-numeric results) 0.00 kg/m2 [facility] ([facility]) Systolic blood pressure 0 mm[Hg] Normal (applies t o non-numeric results) 0 mm[Hg] [facility] ([facility]) Diastolic blood pressure 0 mm[Hg] Normal (applies to non-numeric results) 0 mm[Hg] [facility] ([facility]) Body height 0.00 in Normal (applies to non-numeric resu lts) 0.00 in [facility] ([facility]) Body weight Measured 0.00 lbs Normal (applies to n on-numeric results) 0.00 lbs [facility] ([facility]) Body mass index (BMI) [Ratio] 0.00 kg/m2 No rmal (applies to non-numeric results) 0.00 kg/m2 [facility] ([facility]) Systolic blood pressure 0 mm[Hg] Normal (applies t o non-numeric results) 0 mm[Hg] [facility] ([facility]) Diastolic blood pressure 0 mm[Hg] Normal (applies to non-numeric results) 0 mm[Hg] [facility] ([facility]) Body weight 157 [lb_av] 157 [lb_av] eCW1 ([facility]) Body height [in_i] eCW1 ([facility]) Body mass index (BMI) [Ratio] 28.25 kg/m2 28.25 kg/m2 eCW1 ([facility]) Heart rate 102 /min 102 /min eCW1 ([facility]) Respiratory rate 18 /min 18 /min eCW1 ([facility]) Body temperature 96.8 [degF] 96.8 [degF] eCW1 ( [facility]) Systolic blood pressure 148 mm[Hg] 148 mm[Hg] e CW1 ([facility]) Diastolic blood pressure 72 mm[Hg] 72 mm[Hg] eCW1 ([facility]) Body height 0.00 in Normal (applies to non-numeric resu lts) 0.00 in [facility] ([facility]) Body weight Measured 0.00 lbs Normal (applies to n on-numeric results) 0.00 lbs [facility] ([facility]) Body mass index (BMI) [Ratio] 0.00 kg/m2 No rmal (applies to non-numeric results) 0.00 kg/m2 [facility] ([facility]) Systolic blood pressure 0 mm[Hg] Normal (applies t o non-numeric results) 0 mm[Hg] [facility] ([facility]) Diastolic blood pressure 0 mm[Hg] Normal (applies to non-numeric results) 0 mm[Hg] [facility] ([facility]) Body weight 155 [lb_av] 155 [lb_av] eCW1 ([facility]) Body height [in_i] eCW1 ([facility]) Body mass index (BMI) [Ratio] 27.90 kg/m2 27.90 kg/m2 eCW1 ([facility]) Heart rate 97 /min 97 /min eCW1 ([facility]) Respiratory rate 17 /min 17 /min eCW1 ([facility]) Body temperature 97.4 [degF] 97.4 [degF] eCW1 ( [facility]) Systolic blood pressure 138 mm[Hg] 138 mm[Hg] e CW1 ([facility]) Diastolic blood pressure 82 mm[Hg] 82 mm[Hg] eCW1 ([facility]) Body height 0.00 in Normal (applies to non-numeric resu lts) 0.00 in [facility] ([facility]) Body weight Measured 0.00 lbs Normal (applies to n on-numeric results) 0.00 lbs [facility] ([facility]) Body mass index (BMI) [Ratio] 0.00 kg/m2 No rmal (applies to non-numeric results) 0.00 kg[facility] Systolic blood pressure 0 mm[Hg] Normal (applies t o non-numeric results) 0 mm[Hg] [facility] ([facility]) Diastolic blood pressure 0 mm[Hg] Normal (applies to non-numeric results) 0 mm[Hg] [facility] ([facility]) Body weight 144 [lb_av] 144 [lb_av] eCW1 ([facility]) Body height [in_i] eCW1 ([facility]) Body mass index (BMI) [Ratio] 25.92 kg/m2 25.92 kg/m2 W1 ([facility]) Heart rate 112 /min 112 /min eCW1 ([facility]) Respiratory rate 18 /min 18 /min eCW1 ([facility]) Body temperature 96.8 [degF] 96.8 [degF] eCW1 ( [facility]) Systolic blood pressure 132 mm[Hg] 132 mm[Hg] e CW1 ([facility]) Diastolic blood pressure 84 mm[Hg] 84 mm[Hg] eCW1 ([facility]) Systolic blood pressure 124 mm[Hg] Normal (applies t o non-numeric results) 124 mm[Hg] [facility] Diastolic blood pressure 72 mm[Hg] Normal (applies to non-numeric results) 72 mm[Hg] [facility] Heart rate 97 min Normal (applies to non-numeric resul ts) 97 min [facility] Respiratory rate 18 min Normal (applies to non-numeric results) 18 min [facility] Body temperature 37.2 isabell Normal (applies to non-numeric results) 37.2 isabell [facility] Deprecated Oxygen saturation in Capillary blood by Oximetry 97 % Normal (applies to non-numeric results) 97 % [facility] Body height 159.7152 cm Normal (applies to non-numeric res ults) 159.7152 cm [facility] ID Date Data Source [id number] 12/11/2020 08:00:00 AM EDT [facility] spital Name Value Range Interpretation Code Description Data Source(s) Weight (Calculated Kilograms) 68.04 68.04 [facility] 7 [facility] Temperature 97.7 97.7 [facility] spital Respiratory Effort 1 1 [facility] Respiratory Rate 18 18 [facility] Pulse Assessment Method 4 4 [facility] 84 [facility] Height (Calculated Centimeters) 160.02 160. 02 [facility] Height 63 63 [facility] Blood Pressure 147/79 147/79 [facility] Body Mass Index (BMI) 26.5 26.5 [facility] Weight (Calculated Kilograms) 68.04 68.04 [facility] Weight 2400 2400 [facility] pital Temperature Source 7 7 [facility] Temperature 97.7 97.7 [facility] spital Respiratory Effort 1 1 [facility] Respiratory Rate 18 18 [facility] Pulse Assessment Method 4 4 [facility] Pulse Rate 84 84 [facility] pital Height (Calculated Centimeters) 160.02 160. 02 [facility] Height 63 63 [facility] Blood Pressure 147/79 147/79 [facility] Body Mass Index (BMI) 26.5 26.5 [facility] Weight (Calculated Kilograms) 68.04 68.04 [facility] Weight 2400 2400 [facility] pital Temperature Source 7 7 [facility] Temperature 98.6 98.6 [facility] spital Respiratory Effort 1 1 [facility] Respiratory Rate 18 18 [facility] Pulse Assessment Method 4 4 [facility] Pulse Rate 73 73 [facility] pital Height (Calculated Centimeters) 160.02 160. 02 [facility] 63 63 [facility] 133/88 133/88 [facility] Body Mass Index (BMI) 26.5 26.5 [facility] Weight (Calculated Kilograms) 68.04 68.04 [facility] Weight 2400 2400 [facility] pital Temperature Source 7 7 [facility] Temperature 98.0 98.0 [facility] spital Respiratory Effort 1 1 [facility] Respiratory Rate 16 16 [facility] Pulse Assessment Method 4 4 [facility] Pulse Rate 87 87 [facility] pital Height (Calculated Centimeters) 160.02 160. 02 [facility] Height 63 63 [facility] pital Blood Pressure 114/74 114/74 [facility] Body Mass Index (BMI) 26.5 26.5 [facility] Weight (Calculated Kilograms) 68.04 68.04 [facility] Weight 2400 2400 [facility] pital Temperature Source 7 7 [facility] Temperature 98.0 98.0 [facility] spital Respiratory Effort 1 1 [facility] Respiratory Rate 16 16 [facility] Pulse Assessment Method 4 4 [facility] Pulse Rate 114 114 [facility] pital Height (Calculated Centimeters) 160.02 160. 02 [facility] 109/68 109/68 [facility] Body Mass Index (BMI) 26.5 26.5 [facility] Weight (Calculated Kilograms) 68.04 68.04 [facility] Weight 2400 2400 [facility] pital Temperature Source 7 7 [facility] Temperature 98.0 98.0 [facility] spital Respiratory Effort 1 1 [facility] Respiratory Rate 16 16 [facility] Pulse Assessment Method 4 4 [facility] Pulse Rate 114 114 [facility] pital Height (Calculated Centimeters) 160.02 160. 02 [facility] Height 63 63 [facility] pital Blood Pressure 109/68 109/68 [facility] Body Mass Index (BMI) 26.5 26.5 [facility] Weight (Calculated Kilograms) 68.67 68.67 [facility] Height (Calculated Centimeters) 160.02 160. 02 [facility] Body Mass Index (BMI) 26.8 26.8 [facility] ID Date Data Source [id number] 12/05/2020 07:49:00 PM EDT [facility] spital Name Value Range Interpretation Code Description Data Source(s) Weight Measurement Method 1 1 [facility] Weight (Calculated Kilograms) 69.22 69.22 [facility] Weight 2441.6 2441.6 [facility] pital Temperature Source 3 3 [facility] Temperature 97.3 97.3 [facility] spital Respiratory Effort 1 1 [facility] Respiratory Rate 18 18 [facility] Pulse Assessment Method 4 4 [facility] Pulse Rate 106 106 [facility] pital Height (Calculated Centimeters) 160.02 160. 02 [facility] Height 63 63 [facility] pital Blood Pressure 128/81 128/81 [facility] Body Mass Index (BMI) 27.0 27.0 [facility] Weight Measurement Method 1 1 [facility] Weight (Calculated Kilograms) 69.22 69.22 [facility] Weight 2441.6 2441.6 [facility] pital Temperature Source 3 3 [facility] Temperature 97.3 97.3 [facility] spital Respiratory Effort 1 1 [facility] Respiratory Rate 18 18 [facility] Pulse Assessment Method 4 4 [facility] Pulse Rate 106 106 [facility] pital Height (Calculated Centimeters) 160.02 160. 02 [facility] Height 63 63 [facility] pital Blood Pressure 128/81 128/81 [facility] Body Mass Index (BMI) 27.0 27.0 [facility] Weight Measurement Method 1 1 [facility] Weight (Calculated Kilograms) 69.22 69.22 [facility] Weight 2441.6 2441.6 [facility] pital Temperature Source 3 3 [facility] Temperature 97.6 97.6 [facility] spital Respiratory Effort 1 1 [facility] Respiratory Rate 18 18 [facility] Pulse Assessment Method 4 4 [facility] Pulse Rate 106 106 [facility] pital Height (Calculated Centimeters) 160.02 160. 02 [facility] Height 63 63 [facility] pital Blood Pressure 147/97 147/97 [facility] Body Mass Index (BMI) 27.0 27.0 [facility] Weight Measurement Method 1 1 [facility] Weight (Calculated Kilograms) 69.22 69.22 [facility] Weight 2441.6 2441.6 [facility] pital Temperature Source 7 7 [facility] Temperature 98.7 98.7 [facility] spital Respiratory Effort 1 1 [facility] Respiratory Rate 19 19 [facility] Pulse Assessment Method 4 4 [facility] Pulse Rate 104 104 [facility] pital Height (Calculated Centimeters) 160.02 160. 02 [facility] Height 63 63 [facility] pital Blood Pressure 138/79 138/79 [facility] Body Mass Index (BMI) 27.0 27.0 [facility] Patient Treatment Plan of Care Planned Activity Planned Date Details Description Data Source (s) Mupirocin 0.02 MG/MG Topical Ointment 05/04/2021 12:00:00 AM EDT eCW1 ([facility]) Mupirocin 0.02 MG/MG Topical Ointment 05/04/2021 12:00:00 AM EDT eCW1 ([facility]) Mupirocin 0.02 MG/MG Topical Ointment 05/04/2021 12:00:00 AM EDT eCW1 ([facility]) Mupirocin 0.02 MG/MG Topical Ointment 05/04/2021 12:00:00 AM EDT eCW1 ([facility]) ferrous gluconate 324 MG Oral Tablet 04/13/2021 12:00:00 AM EDT eCW1 ([facility]) Nicotine 2 MG Chewing Gum 04/13/2021 12:00:00 AM EDT eCW1 ([facility]) ferrous gluconate 324 MG Oral Tablet 04/13/2021 12:00:00 AM EDT eCW1 ([facility]) Nicotine 2 MG Chewing Gum 04/13/2021 12:00:00 AM EDT eCW1 ([facility]) Prolia 60mg/ml 09/01/2020 12:00:00 AM EST eCW1 ([facility]) Prolia 60mg/ml 09/01/2020 12:00:00 AM EST eCW1 ([facility]) Prolia 60mg/ml 09/01/2020 12:00:00 AM EST eCW1 ([facility]) ferrous gluconate 324 MG Oral Tablet 08/31/2020 12:00:00 AM EST eCW1 ([facility]) ferrous gluconate 324 MG Oral Tablet 08/31/2020 12:00:00 AM EST eCW1 ([facility]) ferrous gluconate 324 MG Oral Tablet 08/31/2020 12:00:00 AM EST eCW1 ([facility]) ferrous gluconate 324 MG Oral Tablet 08/31/2020 12:00:00 AM EST eCW1 ([facility]) ferrous gluconate 324 MG Oral Tablet 08/31/2020 12:00:00 AM EST eCW1 ([facility]) Hydrocortisone 25 MG/ML Topical Cream 06/21/2020 12:00:00 AM EDT eCW1 ([facility]) Hydrocortisone 25 MG/ML Topical Cream 06/21/2020 12:00:00 AM EDT eCW1 ([facility]) Hydrocortisone 25 MG/ML Topical Cream 06/21/2020 12:00:00 AM EDT eCW1 ([facility]) Hydrocortisone 25 MG/ML Topical Cream 06/21/2020 12:00:00 AM EDT eCW1 ([facility]) Hydrocortisone 25 MG/ML Topical Cream 06/21/2020 12:00:00 AM EDT eCW1 ([facility]) Hydrocortisone 25 MG/ML Topical Cream 06/21/2020 12:00:00 AM EDT eCW1 ([facility]) Hydrocortisone 25 MG/ML Topical Cream 06/21/2020 12:00:00 AM EDT eCW1 ([facility]) Hydrocortisone 25 MG/ML Topical Cream 06/21/2020 12:00:00 AM EDT eCW1 ([facility]) Hydrocortisone 25 MG/ML Topical Cream 06/21/2020 12:00:00 AM EDT eCW1 ([facility]) Hydrocortisone (Perianal) 1 % 05/18/2020 01:00:00 AM EDT [facility]) Cranberry Ultra Strength 250-60 MG 05/18/2020 01:00:00 AM EDT [facility] ([facility]) Vagisil Maximum Strength 20-3 % 05/18/2020 01:00:00 AM EDT [facility] ([facility]) Atorvastatin Calcium 80 MG 05/15/2020 01:00:00 AM EDT [facility] ([facility]) Citalopram Hydrobromide 20 MG 05/15/2020 01:00:00 AM EDT [facility] ([facility]) Eliquis 2.5 MG 05/15/2020 01:00:00 AM EDT [facility] ([facility]) Pantoprazole Sodium 40 MG 05/15/2020 01:00:00 AM EDT [facility] ([facility]) Sucralfate 1 GM 05/15/2020 01:00:00 AM EDT [facility] ([facility]) Vitamin D3 1000 UNIT 05/15/2020 01:00:00 AM EDT [facility] ([facility]) Calcium 600+D3 600-800 MG-UNIT 05/15/2020 01:00:00 AM EDT [facility] ([facility]) C-1000 1000 MG 05/15/2020 01:00:00 AM EDT [facility] ([facility]) Benadryl Allergy 25 MG 05/15/2020 01:00:00 AM EDT [facility] ([facility]) Aleve 220 MG 05/15/2020 01:00:00 AM EDT [facility] ([facility]) Ibuprofen 200 MG 05/15/2020 01:00:00 AM EDT [facility] ([facility]) Stress B Complex/Iron 05/15/2020 01:00:00 AM EDT [facility] ([facility]) Melatonin 10 MG 05/15/2020 01:00:00 AM EDT [facility] ([facility]) Tums Extra Strength 750 750 MG 05/15/2020 01:00:00 AM EDT [facility] ([facility]) Neosporin Original 05/15/2020 01:00:00 AM EDT [facility] ([facility])
[2021-07-05 22:14] LABS: ALBUMIN 1.9 GM/DL (3.2-5.2); ALT/SGPT 64 U/L (12-78); BILIRUBIN,DIRECT 1.3 MG/DL (0.0-0.2); BILIRUBIN,TOTAL 2.1 MG/DL (0.2-1.0); BLOOD UREA NITROGEN 14 MG/DL (7-18); CALCIUM LEVEL 7.5 MG/DL (8.8-10.2); CARBON DIOXIDE LEVEL 20 MEQ/L (21-32); CHLORIDE LEVEL 99 MEQ/L (98-107); CK-MB VALUE MASS < 1.0 NG/ML (<3.6); CPK CREATINE PHOSPHOKINASE 24 U/L (26-192); CREATININE FOR GFR 1.24 MG/DL (0.55-1.30); GLOMERULAR FILTRATION RATE 45.7 (>45); GLUCOSE, FASTING 110 MG/DL (70-100); LIPASE 80 U/L (73-393); MB/CK RELATIVE INDEX 4.17 (< OR =4); POTASSIUM SERUM 2.3 MEQ/L (3.5-5.1); SODIUM LEVEL 132 MEQ/L (136-145); TROPONIN I < 0.02 NG/ML (< 0.10)
[2021-07-05] MEDS ORDERED: POTASSIUM CHLORIDE 10MEQ SR TABLET PO ONE (22:20)
[2021-07-05] MEDS ORDERED: NS 1,000 ML IV ONE (22:20)
[2021-07-05] MEDS ORDERED: KCL 10MEQ/100ML SWI (KRUN) 10 MEQ in IV 1 EA IV ONE (22:20)
[2021-07-05] MEDS ORDERED: POTASSIUM CHLORIDE 10% LIQ 20 MEQ/15 ML UDC PO ONE (22:40)
[2021-07-05 22:55] LABS: MAGNESIUM LEVEL 1.8 MG/DL (1.8-2.4)
[2021-07-05] MEDS ORDERED: HOME MED LIST COMPLETE! XX SCH (23:50)
[2021-07-06] VITALS (7 sets, daily range): BP systolic 91–112; BP diastolic 50–63
[2021-07-06] MEDS ORDERED: ISOVUE-370 76% 100ML VIAL As Ordered ONE (00:21)
[2021-07-06] MEDS ORDERED: NS 1,000 ML IV ONE (01:15)
[2021-07-06] MEDS ORDERED: ACETAMINOPHEN TAB 650MG DOSE (2X325MG) PO PRN (01:20)
[2021-07-06] MEDS ORDERED: MAG SULF 1GM/100ML (MAG RUN) 1 GM in IV 1 EA IV ONE (01:20)
[2021-07-06] MEDS ORDERED: MAALOX 30 ML SUSP *UDC PO PRN (01:20)
[2021-07-06] MEDS ORDERED: POTASSIUM CHLORIDE 10MEQ SR TABLET PO ONE (01:20)
[2021-07-06] MEDS ORDERED: MOM 30ML SUSPENSION UDC PO PRN (01:20)
--- NOTE | 2021-07-06 01:22 | HPEPDOC ---
[facility] Medical History & Physical Date of Admission Jul 06, 2021 Date of Service: Jul 06, 2021 History and Physical CHIEF COMPLAINT: hypokalemia HISTORY OF PRESENT ILLNESS: 71 yo F with a PMHx of etoh use disorder, suspected liver cirrhosis, ascites, depression, presented to ER after found to have hypokalemia on blood work today, from her GI office. She is being followed by Dr. Andres for ascites, as well as findings of numerous polyps on colonoscopy in 05/2021, pathology showing tubular adenoma. Per report, Dr. Andres has ordered a paracentesis for the morning. At this stage I am uncertain whether she will be consulted on by GI. Patient found to be hypotensive in the ER, with blood pressures around 90 systolic which she reports as chronic. Further, EKG showed significant QTc prolongation to 737. K 2.3. Mg 1.8. Patient will be admitted to hospitalist service for managemnt of hypokalemia and workup of asc ites. PAST MEDICAL HISTORY: #Etoh use disorder #suspected liver cirrhosis #chronic tobacco dependence #Depression PAST SURGICAL HISTORY: Cataract removal from right eye 12/16/2016. SOCIAL HISTORY: Active chronic smoker, 1 ppd hx of etoh use disorder, drinks 2-3 glasses of wine per week. denies illicit drug use FAMILY HISTORY: Reviewed with patient, no pertinent hx provided ALLERGIES: Please see below. REVIEW OF SYSTEMS: 10 point ROS conducted, relevant findings noted in HPI HOME MEDICATIONS: Please see below. PHYSICAL EXAMINATION: VITAL SIGNS: please see below General: NAD, comfortable HEENT: PERRLA, EOMI, sclerae clear Neck: supple, normal ROM, no JVD Respiratory: lungs CTAB, no wheeze, no rales, no crackles CVS: RRR, normal S1, S2, no murmurs Abdo: moderately distended, soft, no masses, no hepatosplenomegaly, BS+, no rebound tenderness Extremities: no edema, pulses 2+ MSK: no joint deformities, normal ROM Neuro: no focal neuro deficits, moving all 4 extremities, CN2-12 intact. Strength 5/5 in all 4 extremities. No nystagmus. Psych: calm, cooperative, AAO x 3 LABORATORY DATA: See below. IMAGING: CT abdo pelvis w IV contrast (07/06/21): Hepatomegaly and cirrhosis. Moderate ascites. Portal venous hypertension. Atherosclerotic disease of the abdominal aorta. Mild dilatation of distal abdominal aorta at the level of the iliac bifurcation measuring up to 2.6 cm. Uterine fibroids. Diverticulosis of the colon. No evidence of acute diverticulitis. Bowel wall thickening involving right colon may reflect portal colopathy. Distended gallbladder. CXR (07/05/21): No acute findings. MICROBIOLOGY: Please see below. ASSESSMENT: 71 yo F with a PMHx of etoh use, liver cirrhosis, portal HTN, presented to ER, after being told by her GI (Dr. Andres) of her abnormal lab work. On arrival found to have hypokalemia. EKG showed prolonged QTC to 737. Per report, a paracentesis has been ordered for patient. . PLAN: #Prolonged QTc: Ekg showing QTc of 737. Likely 2/2 hypokalemia. Replace K+. Avoid QTc prolonging medications. Repeat EKG ordered. #Hypokalemia: K+ 2.3. Replace with 80 meq of KCl, repeat BMP. Mag 1.8. Ordered 1gm IV magnesium. #Ascites: possibly 2/2 cirrhosis in context of etoh use disorder. CT abdo reviewed as above. Moderate ascites. Ordered paracentesis for 07/06/21. Ordered 2 units albumin. #Elevated bilirubin: check liver US. CT shows distension of gallbladder. No RUQ pain. #Colonic polyps: last colonoscopy on 06/04/21. 5 polyps in transverse, ascending colon and cecum. 3 polyps at splenic flexure. Path showing tubular adenoma. Patient needs repeat colonoscopy 3 months after. Being followed by Dr. Andres. AAA dilatation: 2.6 cm in diameter. Surveillance in vascular surgery clinic. Dispo: pending clinical improvement. Vital Signs Vital Signs Date Time Temp Pulse Resp B/P (MAP) Pulse Ox O2 Delivery O2 Flow Rate FiO2 07/05/21 23:15 16 87/55 (66) 97 Room Air 07/05/21 23:06 91 07/05/21 20:34 97.8 Laboratory Data Labs 24H Laboratory Tests 2 07/05/21 21:24: Immature Granulocyte % (Auto) 0.8, Neutrophils (%) (Auto) 74.5H, Lymphocytes (%) (Auto) 14.5L, Monocytes (%) (Auto) 8.9H, Eosinophils (%) (Auto) 0.8, Basophils (%) (Auto) 0.5, Neutrophils # (Auto) 13.4H, Lymphocytes # (Auto) 2.6, Monocytes # (Auto) 1.6H, Eosinophils # (Auto) 0.2, Basophils # (Auto) 0.1, Nucleated Red Blood Cells % (auto) 0.0, Anion Gap 13, Glomerular Filtration Rate 45.7, Calcium Level 7.5L, Magnesium Level 1.8, Total Bilirubin 2.1H, Direct Bilirubin 1.3H, Aspartate Amino Transf (AST/SGOT) 94H, Alanine Aminotransferase (ALT/SGPT) 64, Alkaline Phosphatase 240H, Total Creatine Kinase 24L, Creatine Kinase MB < 1.0, Creatine Kinase MB Relative Index 4.17H, Troponin I < 0.02, Total Protein 6.0L, Albumin 1.9L, Albumin/Globulin Ratio 0.5L, Lipase 80, Coronavirus (COVID- 19)(PCR) NEGATIVE, Influenza Type A (RT-PCR) NEGATIVE, Influenza Type B (RT-PCR) NEGATIVE, Respiratory Syncytial Virus (PCR) NEGATIVE CBC/BMP Laboratory Tests 07/05/21 21:24 Home Medications Scheduled Buspirone HCl (Buspirone HCl) 10 Mg Tablet, 10 MG PO BID Citalopram Hydrobromide (Citalopram HBr) 20 Mg Tablet, 20 MG PO DAILY Ferrous Sulfate (Ferrous Sulfate) 325 Mg Tablet, 325 MG PO DAILY Mirtazapine (Remeron) 15 Mg Tablet, 15 MG PO QHS Allergies Coded Allergies: milk (Verified Adverse Reaction, Mild, GI upset, 06/12/21) MELISSA MOSLEY MD Jul 06, 2021 01:22
--- OUTSIDE RECORDS SUMMARY | 2021-07-06 01:27 | CCD ---
Author Author [facility] Organization [facility] Address Unknown Phone Unavailable Care Team Providers Care Clerk Operator Name Role Phone Primo Hdz NP Unavailable [...] is protected by Article 27-F of the [place] Public Health law. If you continue you may have access to information: Regarding HIV / AIDS; Provided by facilities licensed or operated by the [employer] Office of Mental Health; or Provided by the [employer] Office for People With Developmental Disabilities. If such information is present, then the following [employer] mandated warning applies: This information has been [...] law may result in a fine or mcc sentence or both. A general authorization for the release of medical or other information is NOT sufficient authorization for further disc losure. Allergies and Adverse Reactions Type Description Substance Reaction Status Data Source(s ) Propensity to adverse reactions to substance prazosin Prazosin 2 MG Oral Capsule dizziness Active [facility] ([facility]) No Known Drug Allergies No Known Drug Allergies No Known Drug Aller gies active [facility] ([facility] ) Family History Family Member Name Family Member Gender Family Member Status Date o f Status Description Data Source(s) Unknown Female Problem [facility] ([facility]) Encounters Encounter Providers Location Date Indications Data Source(s ) Outpatient Attender: Solomon Hdz NP [facility] 06/20/2021 10:30:00 AM EDT - 06/20/2021 10:30:00 AM EDT [facility] ([facility]) Attender: Solomon Hdz NP 06/20/2021 12:00:00 AM EDT [facility] ([facility]) [place] [address] [place] [address] 06/11/2021 12:00:00 AM EDT [facility]CW1 ([facility]) [place] [address] [place] [address] 06/08/2021 12:00:00 AM EDT eCW1 ([facility]) [place] [address] [place] [address] 06/06/2021 12:00:00 AM EDT [facility]CW1 ([facility] [place] [address] [place] [address] 05/21/2021 12:00:00 AM EDT eCW1 ([facility]) [place] [address] [place] [address] 05/14/2021 12:00:00 AM EDT eCW1 ([facility] Unknown [address] [facility] [place] [address] 2021 12:00:00 AM EDT eCW1 ([facility]) [place] [address] [facility] [place] [address] 05/08/2021 12:00:00 AM EDT eCW1 ([facility] [place] [address] [facility] [place] [address] 05/04/2021 12:00:00 AM EDT eCW1 ([facility] [place] [address] [facility] [place] [address] 05/04/2021 12:00:00 AM EDT eCW1 ([facility]) [place] [address] [facility] [place] [address] 04/20/2021 12:00:00 AM EDT eCW1 ([facility] [place] [address] [facility] [place] [address] 04/13/2021 12:00:00 AM EDT eCW1 ([facility] [place] [address] [facility] [place] [address] 04/12/2021 12:00:00 AM EDT eCW1 ([facility]) Extended Individual Psychotherapy - 45 min Attender: Atilio Leone [facility] 04/05/2021 10:00:00 AM EDT - 04/05/2021 10:00:00 AM EDT [facility] ([facility]) Attender: Jessica Leone 04/05/2021 12:00:00 A M EDT [facility] ([facility]) Outpatient [address] [facility] [place] [address] 03/14/2021 12:00:00 AM EDT eCW1 ([facility] [place] [address] [facility] [place] [address] 03/13/2021 12:00:00 AM EDT eCW1 ([facility] [place] [address] [facility] [place] [address] 03/13/2021 12:00:00 AM EDT eCW1 (Critical access hospital) Unknown [address] [facility] [place] [address] 03/08/2021 12:00:00 AM EDT eCW1 (Critical access hospital) Outpatient Attender: Solomon Hdz NP [facility] 03/07/2021 10:30:00 AM EDT - 03/07/2021 10:30:00 AM EDT [facility] ([facility]) Attender: Solomon Hdz NP 03/07/2021 12:00:00 AM EDT [facility] ([facility]) Outpatient Attender: Solomon Hdz NP [facility] 01/16/2021 01:30:00 AM EDT - 01/16/2021 01:30:00 AM EDT [facility] ([facility]) Attender: Solomon Hdz NP 01/16/2021 12:00:00 AM EDT [facility] ([facility]) Extended Individual Psychotherapy - 45 min Attender: Atilio Hammondcarlos [facility] 01/09/2021 09:00:00 AM EDT - 01/09/2021 09:00:00 AM EDT [facility] ([facility]) Attender: Jessica Leone 01/09/2021 12:00:00 A M EDT [facility] ([facility]) [place]patient [address] [facility] [place] [address] 01/01/2021 12:00:00 AM EDT eCW1 (Critical access hospital) Extended Individual Psychotherapy - 45 min Attender: Atilio Leone [facility] 12/26/2020 09:00:00 AM EDT - 12/26/2020 09:00:00 AM EDT [facility] ([facility]) Attender: Jessica Leone 12/26/2020 12:00:00 A M EDT [facility] ([facility]) Unknown [address] [facility] [place] [address] 12/21/2020 12:00:00 AM EDT eCW1 (Critical access hospital) Outpatient Attender: Solomon Hdz NP [facility] 12/19/2020 01:00:00 AM EDT - 12/19/2020 01:00:00 AM EDT [facility] ([facility]) Attender: Solomon Hdz NP 12/19/2020 12:00:00 AM EDT [facility] ([facility]) Unknown [address] [facility] [place] [address] 12/15/2020 12:00:00 AM EDT eCW1 (Critical access hospital) Brief Individual Psychotherapy - 30 min Attender: Jessica wall [facility] 12/12/2020 12:45:00 PM EDT - 12/12/2020 12:45:00 PM EDT [facility] ([facility]) Attender: Jessica Leone 12/12/2020 12:00:00 A M EDT [facility] ([facility]) Unknown [address] [facility] [place] [address] 12/08/2020 12:00:00 AM EDT eCW1 (Critical access hospital) Outpatient Attender: UNKNOWN CPSCAORT-LABEJN 12/06/2020 09:42:00 AM E [facility] Inpatient Attender: Rafat Sheth MDAdmitter: Rafat dewitt MD [facility] 12/05/2020 07:41:00 PM EDT - 12/08/2020 09:25:00 AM EDT F10.20 [facility] F10.20 Patient discharged. Unknown [address] [facility] [place] [address] 12/05/2020 12:00:00 AM EDT eCW1 (Critical access hospital) Outpatient Attender: Solomon Hdz NP [facility] 11/21/2020 01:00:00 AM EDT - 11/21/2020 01:00:00 AM EDT [facility] ([facility]) Outpatient Attender: Solomon Hdz NP [facility] 11/21/2020 01:00:00 AM EDT - 11/21/2020 01:00:00 AM EDT [facility] ([facility]) Attender: Solomon Hdz NP 11/21/2020 12:00:00 AM EDT [facility] ([facility]) Extended Individual Psychotherapy - 45 min Attender: Atilio Hammondcarlos [facility] 11/14/2020 09:00:00 AM EDT - 11/14/2020 09:00:00 AM EDT [facility] ([facility]) Attender: Jessica Leone 11/14/2020 12:00:00 A M EDT [facility] ([facility]) Extended Individual Psychotherapy - 45 min Attender: Atilio Hammondcarlos [facility] 10/19/2020 08:45:00 AM EST - 10/19/2020 08:45:00 AM EST [facility] ([facility]) Attender: Jessica Leone 10/19/2020 12:00:00 A M EST [facility] ([facility]) Outpatient Attender: Solomon Hdz NP [facility] 10/17/2020 01:00:00 AM EST - 10/17/2020 01:00:00 AM EST [facility] ([facility]) Attender: Solomon Hdz NP 10/17/2020 12:00:00 AM EST [facility] ([facility]) Unknown [address] [facility] [place] [address] 10/11/2020 12:00:00 AM EST eCW1 (Critical access hospital) Outpatient [address] [facility] [place] [address] 10/02/2020 12:00:00 AM EST eCW1 (Critical access hospital) Attender: Jessica Leone 09/27/2020 12:00:00 A M EST [facility] ([facility]) TEMPMHCTelemed 30" Psychotherapy Attender: Jessica Leone [facility] 09/26/2020 09:00:00 AM EST - 09/26/2020 09:00:00 AM EST [facility] ([facility]) Outpatient [address] [facility] [place] [address] 09/14/2020 12:00:00 AM EST [facility]CW1 ([facility] [place] [address] [facility] [place] [address] 09/11/2020 12:00:00 AM EST eCW1 ([facility] Outpatient Attender: Solomon Hdz NP [facility] 09/05/2020 12:30:00 PM EST - 09/05/2020 12:30:00 PM EST [facility] ([facility]) Attender: Solomon Hdz NP 09/05/2020 12:00:00 AM EST [facility] ([facility]) Unknown [address] [facility] [place] [address] 08/31/2020 12:00:00 AM EST eCW1 ([facility] [place] [address] [facility] [place] [address] 08/30/2020 12:00:00 AM EST eCW1 ([facility] Outpatient [address] [facility] [place] [address] 08/30/2020 12:00:00 AM EST eCW1 ([facility]) Extended Individual Psychotherapy - 45 min Attender: Atilio Leone [facility] 08/22/2020 09:00:00 AM EST - 08/22/2020 09:00:00 AM EST [facility] ([facility]) Attender: Jessica Leone 08/22/2020 12:00:00 A M EST [facility] ([facility]) Unknown [address] [facility] [place] [address] 08/21/2020 12:00:00 AM EST eCW1 ([facility]) Outpatient Attender: Solomon Hdz NP [facility] 07/28/2020 11:30:00 AM EST - 07/28/2020 11:30:00 AM EST [facility] ([facility]) Attender: Solomon Hdz NP 07/28/2020 12:00:00 AM EST [facility] ([facility]) Extended Individual Psychotherapy - 45 min Attender: Atilio Leone [facility] 07/25/2020 09:00:00 AM EST - 07/25/2020 09:00:00 AM EST [facility] ([facility]) Attender: Jessica Leone 07/25/2020 12:00:00 A M EST [facility] ([facility]) Outpatient [address] [facility] [place] [address] 07/11/2020 12:00:00 AM EST eCW1 (Critical access hospital) Extended Individual Psychotherapy - 45 min Attender: Atilio Hammondcarlos [facility] 07/04/2020 09:00:00 AM EST - 07/04/2020 09:00:00 AM EST [facility] ([facility]) Attender: Jessica Leone 07/04/2020 12:00:00 A M EST [facility] ([facility]) Unknown [address] [facility] [place] [address] 06/21/2020 12:00:00 AM EDT eCW1 (Critical access hospital) Extended Individual Psychotherapy - 45 min Attender: Atilio Leone [facility] 06/20/2020 09:00:00 AM EDT - 06/20/2020 09:00:00 AM EDT [facility] ([facility]) Attender: Jessica Leone 06/20/2020 12:00:00 A M EDT [facility] ([facility]) Extended Individual Psychotherapy - 45 min Attender: Atilio Leone [facility] 06/06/2020 12:00:00 PM EDT - 06/06/2020 12:00:00 PM EDT [facility] ([facility]) Attender: Jessica Leone 06/06/2020 12:00:00 A M EDT [facility] ([facility]) Unknown [address] [facility] [place] [address] 05/24/2020 12:00:00 AM EDT eCW1 (Critical access hospital) 05/15/2020 01:00:00 AM EDT - 020 10:42:46 AM EDT [facility] ([facility]) Inpatient Attender: CASPER YAN [facility] MDAttender: Shahzad TAVARES MDAttender: ER PHYSICIAN 04/26/2020 12:50:00 AM EDT [facility] ( in Healthcare facility) Attender: MONALISA BERG MDAttender: Shahzad TAVARES MDAdmitter: Shahzad TAVARES MDConsultant: Rajesh Goddard 04/26/2020 12:50:[address] [facility] Inpatient Attender: CASPER YAN [facility] MDAttender: CHELO OCONNOR PAAttender: ER PHYSICIANAdmitter: CHELO KEMP 0 04/25/2020 10:57:28 PM EDT [facility] Inpatient Attender: CASPER YAN [facility] MDAttender: Shahzad TAVARES MDAttender: ER PHYSICIANAdmitter: Shahzad TAVARES MD 0 04/25/2020 10:15:00 PM EDT - 05/12/2020 06:21:00 PM EDT GI BLEEDING [facility] GI BLEEDING Patient discharged. Inpatient Attender: CRISTIANE LARSON MDAdmitter: CRISTIANE LARSON MD ED-MSP 09/13/2019 11:30:00 AM EST - 09/17/2019 09:15:00 AM EST F1020 [facility] F1020 Patient discharged. Functional Status Immunizations Vaccine Date Status Description Data Source(s) 03/14/2021 12:33:00 PM EDT completed e CW1 ([facility]) 03/14/2021 12:33:00 PM EDT completed e CW1 ([facility]) 03/14/2021 12:33:00 PM EDT completed e CW1 ([facility]) 03/14/2021 12:33:00 PM EDT completed e CW1 ([facility]) 03/14/2021 12:33:00 PM EDT completed e CW1 ([facility]) 03/14/2021 12:33:00 PM EDT completed e CW1 ([facility]) 03/14/2021 12:33:00 PM EDT completed e CW1 ([facility]) 03/14/2021 12:33:00 PM EDT completed e CW1 ([facility]) 03/14/2021 12:33:00 PM EDT completed e CW1 ([facility]) 03/14/2021 12:33:00 PM EDT completed e CW1 ([facility]) 03/14/2021 12:33:00 PM EDT completed e CW1 ([facility]) 03/14/2021 12:33:00 PM EDT completed e CW1 ([facility]) COVID-19 VACCINE Moderna 11/24/2020 12:00:00 AM EDT completed [facility] Vaccine Series Complete: YESThis Data wa s Submitted to [facility]. COVID-19 VACCINE Moderna 10/27/2020 12:00:00 AM EST completed [facility] Vaccine Series Complete: NOThis Data was Submitted to [facility]. Medications Medication Brand Name Start Date Product [...] Mupiroci n 2 % eCW1 ([facility]) Mupirocin 0.02 MG/MG Topical Ointment Mupirocin 2 % Mupiroci n 2 % 05/04/2021 12:00:00 AM EDT suspended Mupir ocin 2 % eCW1 ([facility]) 2 % 05/04/2021 12:00:00 AM EDT ointment [...] Mupir ocin 2 % eCW1 ([facility]) Mupirocin 0.02 MG/MG Topical Ointment Mupirocin 2 % Mupiroci n 2 % 05/04/2021 12:00:00 AM EDT active Mupiroci n 2 % eCW1 ([facility]) Mupirocin 0.02 MG/MG Topical Ointment Mupirocin 2 % Mupiroci n 2 % 05/04/2021 12:00:00 AM EDT suspended Mupir ocin 2 % eCW1 ([facility]) Mupirocin 0.02 MG/MG Topical Ointment Mupirocin 2 % Mupiroci n 2 % 05/04/2021 12:00:00 AM EDT suspended Mupir ocin 2 % eCW1 ([facility]) Mupirocin 0.02 MG/MG Topical Ointment Mupirocin 2 % Mupiroci n 2 % 05/04/2021 12:00:00 AM EDT active Mupiroci n 2 % eCW1 ([facility]) Mupirocin 0.02 MG/MG Topical Ointment Mupirocin 2 % Mupiroci n 2 % 05/04/2021 12:00:00 AM EDT active Mupiroci n 2 % eCW1 ([facility]) Mupirocin 0.02 MG/MG Topical Ointment Mupirocin 2 % Mupiroci n 2 % 05/04/2021 12:00:00 AM EDT active Mupiroci n 2 % eCW1 ([facility]) Mupirocin 0.02 MG/MG Topical Ointment Mupirocin 2 % Mupiroci n 2 % 05/04/2021 12:00:00 AM EDT active Mupiroci n 2 % eCW1 ([facility]) buspirone hydrochloride 10 MG Oral Tablet BUSPIRONE [...] Marco jennifer 2 MG eCW1 ([facility]) Nicotine 2 MG Chewing [facility]um [facility] Nicotine 2 MG [facility] Nicotine 2 M G 04/13/2021 12:00:00 AM EDT suspended [facility] N icotine 2 MG eCW1 ([facility]) Nicotine 2 MG Chewing Gum [facility] Nicotine 2 MG [facility] Nicotine 2 M G 04/13/2021 12:00:00 AM EDT suspended [facility] icotine 2 MG eCW1 ([facility]) Nicotine 2 MG Chewing Gum [facility] Nicotine 2 MG [facility] Nicotine 2 M G 04/13/2021 12:00:00 AM EDT active [facility] Marco jennifer 2 MG eCW1 ([facility]) 2 mg 04/13/2021 12:00:00 AM EDT gum [...] N icotine 2 MG eCW1 ([facility]) Nicotine 2 MG Chewing Gum [facility] Nicotine 2 MG [facility] Nicotine 2 M G 04/13/2021 12:00:00 AM EDT active [facility] Marco jennifer 2 MG eCW1 ([facility]) Nicotine 2 MG Chewing Gum [facility] Nicotine 2 MG [facility] Nicotine 2 M G 04/13/2021 12:00:00 AM EDT active [facility] Marco jennifer 2 MG eCW1 ([facility]) Nicotine 2 MG Chewing Gum [facility] Nicotine 2 MG [facility] Nicotine 2 M G 04/13/2021 12:00:00 AM EDT suspended [facility] N icotine 2 MG eCW1 ([facility]) ferrous gluconate 324 MG Oral Tablet Ferrous Gluconate 324 (38 Fe) MG Ferrous Gluconate 324 (38 Fe) MG 04/13/2021 12:00:00 AM EDT active Ferrous Gluconate 324 (38 Fe) MG eCW1 ([facility]) Nicotine 2 MG Chewing Gum [facility] Nicotine 2 MG [facility] Nicotine 2 M G 04/13/2021 12:00:00 AM EDT active [facility] Marco jennifer 2 MG eCW1 ([facility]) 324 mg (38 mg iron) 04/13/2021 12:00:00 [...] N icotine 2 MG eCW1 ([facility]) Nicotine 2 MG Chewing Gum [facility] Nicotine 2 MG [facility] Nicotine 2 M G 04/13/2021 12:00:00 AM EDT suspended [facility] N icotine 2 MG eCW1 ([facility]) Nicotine 2 MG Chewing Gum [facility] Nicotine 2 MG [facility] Nicotine 2 M G 04/13/2021 12:00:00 AM EDT active [facility] Marco jennifer 2 MG eCW1 ([facility]) ferrous gluconate 324 MG Oral Tablet Ferrous Gluconate 324 (38 Fe) MG Ferrous Gluconate 324 (38 Fe) MG 04/13/2021 12:00:00 AM EDT active Ferrous Gluconate 324 (38 Fe) MG eCW1 ([facility]) 80 mg 03/21/2021 12:00:00 AM EDT tablet [...] 1 mg by mouth completed <td ID="Medicat ionRxNorm_4">268895</td><td ID="MedicationMedication_4">prazosin</td><td ID="MedicationRoute_4">by mouth</td><td ID="MedicationRouteConcept_4">O67625</td><td ID="MedicationStartDate_4">01/16/2021</td><td ID="MedicationStopDate_4">04/16/2021</td><td ID="MedicationDosageFrequency_4">at bedtime</td><td ID="MedicationDuration_4">30</td><td ID="MedicationFormulaStrength_4">1 mg</td><td ID="MedicationDosageForm_4">capsule</td><td ID="MedicationDosageFormCode_4"></td><td ID="MedicationDosageDescription_4"></td><td ID="MedicationMedicationId_4">[id number]</td><td ID="MedicationAccount_4">[id number]</td><td ID="MedicationNpid_4">[id number]</td><td ID="MedicationAuthorFirstName_4">Solomon</td><td ID="MedicationAuthorLastName_4">Hdz</td><td ID="MedicationTaxonomyCode_4">[id number]</td><td ID="MedicationTaxonomyDesc_4">Nurse Practitioner</td><td ID="MedicationPhoneNumber_4">[phone]</td> [facility] ([facility]) 15 mg 01/08/2021 12:00:00 AM EDT tablet [...] ID="MedicationDosageFrequency_2"></td><td ID="MedicationDuration_2">30</td><td ID="MedicationFormulaStrength_2">20 mg</td><td ID="MedicationDosageForm_2">tablet</td><td ID="MedicationDosageFormCode_2"></td><td ID="MedicationDosageDescription_2"></td><td ID="MedicationMedicationId_2">[id number]</td><td ID="MedicationAccount_2">[id number]</td><td ID="MedicationNpid_2">[id number]</td><td ID="MedicationAuthorFirstName_2">Solomon</td><td ID="MedicationAuthorLastName_2">Hdz</td><td ID="MedicationTaxonomyCode_2">[id number]</td><td ID="MedicationTaxonomyDesc_2">Nurse Practitioner</td><td ID="MedicationPhoneNumber_2">[phone]</td> [facility] ([facility]) Citalopram 20 MG Oral Tablet citalopram 10/03/2020 12:00:00 AM EST 20 mg by mouth completed <td ID="Medica tionRxNorm_2">[id number]</td><td ID="MedicationMedication_2">citalopram</td><td ID="MedicationRoute_2">by mouth</td><td ID="MedicationRouteConcept_2">M60273</td><td ID="MedicationStartDate_2">10/03/2020</td><td ID="MedicationStopDate_2">07/17/2021</td><td ID="MedicationDosageFrequency_2">once a day</td><td ID="MedicationDuration_2">30</td><td ID="MedicationFormulaStrength_2">20 mg</td><td ID="MedicationDosageForm_2">tablet</td><td ID="MedicationDosageFormCode_2"></td><td ID="MedicationDosageDescription_2"></td><td ID="MedicationMedicationId_2">[id number]</td><td ID="MedicationAccount_2">[id number]</td><td ID="MedicationNpid_2">[id number]</td><td ID="MedicationAuthorFirstName_2">Solomon</td><td ID="MedicationAuthorLastName_2">Hdz</td><td ID="MedicationTaxonomyCode_2">[id number]</td><td ID="MedicationTaxonomyDesc_2">Nurse Practitioner</td><td ID="MedicationPhoneNumber_2">[phone]</td> [facility] ([facility]) buspirone hydrochloride 10 MG Oral Tablet buspirone 2020 12:00:00 AM EST 10 mg completed <td ID="Medica tionRxNorm_3">[id number]</td><td ID="MedicationMedication_3">buspirone</td><td ID="MedicationRoute_3"></td><td ID="MedicationRouteConcept_3"></td><td ID="MedicationStartDate_3">10/03/2020</td><td ID="MedicationStopDate_3">07/17/2021</td><td ID="MedicationDosageFrequency_3"></td><td ID="MedicationDuration_3">30</td><td ID="MedicationFormulaStrength_3">10 mg</td><td ID="MedicationDosageForm_3">tablet</td><td ID="MedicationDosageFormCode_3"></td><td ID="MedicationDosageDescription_3"></td><td ID="MedicationMedicationId_3">[id number]</td><td ID="MedicationAccount_3">[id number]</td><td ID="MedicationNpid_3">[id number]</td><td ID="MedicationAuthorFirstName_3">Solomon</td><td ID="MedicationAuthorLastName_3">Hdz</td><td ID="MedicationTaxonomyCode_3">[id number]</td><td ID="MedicationTaxonomyDesc_3">Nurse Practitioner</td><td ID="MedicationPhoneNumber_3">[phone]</td> [facility] ([facility]) Mirtazapine 15 MG Oral Tablet mirtazapine 10/03/2020 12:00:00 AM EST 15 mg completed <td ID="Medicat ionRxNorm_1">[id number]</td><td ID="MedicationMedication_1">mirtazapine</td><td ID="MedicationRoute_1"></td><td ID="MedicationRouteConcept_1"></td><td ID="MedicationStartDate_1">10/03/2020</td><td ID="MedicationStopDate_1">07/17/2021</td><td ID="MedicationDosageFrequency_1"></td><td ID="MedicationDuration_1">30</td><td ID="MedicationFormulaStrength_1">15 mg</td><td ID="MedicationDosageForm_1">tablet</td><td ID="MedicationDosageFormCode_1"></td><td ID="MedicationDosageDescription_1"></td><td ID="MedicationMedicationId_1">[id number]</td><td ID="MedicationAccount_1">[id number]</td><td ID="MedicationNpid_1">[id number]</td><td ID="MedicationAuthorFirstName_1">Solomon</td><td ID="MedicationAuthorLastName_1">Hdz</td><td ID="MedicationTaxonomyCode_1">[id number]</td><td ID="MedicationTaxonomyDesc_1">Nurse Practitioner</td><td ID="MedicationPhoneNumber_1">[phone]</td> [facility] ([facility]) 80 mg 09/06/2020 12:00:00 AM EST tablet [...] EST active Prolia 60mg/ml eCW1 ([facility]) Prolia 60mg/ml UNK 09/01/2020 12:00:00 AM EST active Prolia 60mg/ml eCW1 ([facility]) Prolia 60mg/ml UNK 09/01/2020 12:00:00 AM EST active Prolia 60mg/ml eCW1 ([facility]) Prolia 60mg/ml K 09/01/2020 12:00:00 AM EST active Prolia 60mg/ml eCW1 ([facility]) Prolia 60mg/ml UNK 09/01/2020 12:00:00 AM EST active Prolia 60mg/ml eCW1 ([facility]) Prolia 60mg/ml UNK 09/01/2020 12:00:00 AM EST active Prolia 60mg/ml eCW1 ([facility]) Prolia 60mg/ml K 09/01/2020 12:00:00 AM EST active Prolia 60mg/ml eCW1 ([facility]) Prolia 60mg/ml UNK 09/01/2020 12:00:00 AM EST active Prolia 60mg/ml eCW1 ([facility]) Prolia 60mg/ml UNK 09/01/2020 12:00:00 AM EST active Prolia 60mg/ml eCW1 ([facility]) Prolia 60mg/ml UNK 09/01/2020 12:00:00 AM EST active Prolia 60mg/ml eCW1 ([facility]) Prolia 60mg/ml UNK 09/01/2020 12:00:00 AM EST active Prolia 60mg/ml eCW1 ([facility]) Prolia 60mg/ml UNK 09/01/2020 12:00:00 AM EST active Prolia 60mg/ml eCW1 ([facility]) Prolia 60mg/ml UNK 09/01/2020 12:00:00 AM EST active Prolia 60mg/ml eCW1 ([facility]) Prolia 60mg/ml UNK 09/01/2020 12:00:00 AM EST active Prolia 60mg/ml eCW1 ([facility]) Prolia 60mg/ml UNK 09/01/2020 12:00:00 AM EST active Prolia 60mg/ml eCW1 ([facility]) Prolia 60mg/ml UNK 09/01/2020 12:00:00 AM EST active Prolia 60mg/ml eCW1 ([facility]) Prolia 60mg/ml UNK 09/01/2020 12:00:00 AM EST active Prolia 60mg/ml eCW1 ([facility]) Prolia 60mg/ml UNK 09/01/2020 12:00:00 AM EST active Prolia 60mg/ml eCW1 ([facility]) Prolia 60mg/ml UNK 09/01/2020 12:00:00 AM EST active Prolia 60mg/ml eCW1 ([facility]) 2.5 % 09/01/2020 12:00:00 AM EST cream with perineal carmen licator 28 APPLY 1 APPLICATION EXTERNALLY TO AFFECTED AREA(S) TWICE A DAY NEEDED FOR 7 DAYS APPLY 1 APPLICATION EXTERNALLY TO AFFECTED AREA(S) TWICE A DAY NEEDED FOR 7 DAYS SOLD: 09/06/2020 [facility] Prolia 60mg/ml UNK 09/01/2020 12:00:00 AM EST active Prolia 60mg/ml eCW1 ([facility]) Prolia 60mg/ml UNK 09/01/2020 12:00:00 AM EST active Prolia 60mg/ml eCW1 ([facility]) Prolia 60mg/ml UNK 09/01/2020 12:00:00 AM EST active Prolia 60mg/ml eCW1 ([facility]) Prolia 60mg/ml UNK 09/01/2020 12:00:00 AM EST active Prolia 60mg/ml eCW1 ([facility]) Prolia 60mg/ml UNK 09/01/2020 12:00:00 AM EST active Prolia 60mg/ml eCW1 ([facility]) Prolia 60mg/ml UNK 09/01/2020 12:00:00 AM EST active Prolia 60mg/ml eCW1 ([facility]) Prolia 60mg/ml UNK 09/01/2020 12:00:00 AM EST active Prolia 60mg/ml eCW1 ([facility]) ferrous gluconate 324 MG Oral Tablet Ferrous Gluconate 324 (38 Fe) MG Ferrous Gluconate 324 (38 Fe) MG 08/31/2020 12:00:00 AM EST active Ferrous Gluconate 324 (38 Fe) MG eCW1 ([facility]) ferrous gluconate 324 MG Oral Tablet Ferrous Gluconate 324 (38 Fe) MG Ferrous Gluconate 324 (38 Fe) MG 08/31/2020 12:00:00 AM EST active Ferrous Gluconate 324 (38 Fe) MG eCW1 ([facility]) ferrous gluconate 324 MG Oral Tablet Ferrous Gluconate 324 (38 Fe) MG Ferrous Gluconate 324 (38 Fe) MG 08/31/2020 12:00:00 AM EST active Ferrous Gluconate 324 (38 Fe) MG eCW1 ([facility]) ferrous gluconate 324 MG Oral Tablet Ferrous Gluconate 324 (38 Fe) MG Ferrous Gluconate 324 (38 Fe) MG 08/31/2020 12:00:00 AM EST active Ferrous Gluconate 324 (38 Fe) MG eCW1 ([facility]) ferrous gluconate 324 MG Oral Tablet Ferrous Gluconate 324 (38 Fe) MG Ferrous Gluconate 324 (38 Fe) MG 08/31/2020 12:00:00 AM EST active Ferrous Gluconate 324 (38 Fe) MG eCW1 ([facility]) ferrous gluconate 324 MG Oral Tablet Ferrous Gluconate 324 (38 Fe) MG Ferrous Gluconate 324 (38 Fe) MG 08/31/2020 12:00:00 AM EST active Ferrous Gluconate 324 (38 Fe) MG eCW1 ([facility]) ferrous gluconate 324 MG Oral Tablet Ferrous Gluconate 324 (38 Fe) MG Ferrous Gluconate 324 (38 Fe) MG 08/31/2020 12:00:00 AM EST active Ferrous Gluconate 324 (38 Fe) MG eCW1 ([facility]) ferrous gluconate 324 MG Oral Tablet Ferrous Gluconate 324 (38 Fe) MG Ferrous Gluconate 324 (38 Fe) MG 08/31/2020 12:00:00 AM EST active Ferrous Gluconate 324 (38 Fe) MG eCW1 ([facility]) ferrous gluconate 324 MG Oral Tablet Ferrous Gluconate 324 (38 Fe) MG Ferrous Gluconate 324 (38 Fe) MG 08/31/2020 12:00:00 AM EST active Ferrous Gluconate 324 (38 Fe) MG eCW1 ([facility]) ferrous gluconate 324 MG Oral Tablet Ferrous Gluconate 324 (38 Fe) MG Ferrous Gluconate 324 (38 Fe) MG 08/31/2020 12:00:00 AM EST active Ferrous Gluconate 324 (38 Fe) MG eCW1 ([facility]) ferrous gluconate 324 MG Oral Tablet Ferrous Gluconate 324 (38 Fe) MG Ferrous Gluconate 324 (38 Fe) MG 08/31/2020 12:00:00 AM EST active Ferrous Gluconate 324 (38 Fe) MG eCW1 ([facility]) ferrous gluconate 324 MG Oral Tablet Ferrous Gluconate 324 (38 Fe) MG Ferrous Gluconate 324 (38 Fe) MG 08/31/2020 12:00:00 AM EST active Ferrous Gluconate 324 (38 Fe) MG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 [facility] ([facility]) Extended Individual Psychotherapy - 45 min 0 12:00:00 AM EST [facility] ([facility]) Extended Individual Psychotherapy - 45 min 06/20/2020 12:00:00 AM EDT - 06/20/2020 12:00:00 AM EDT [facility] ([facility]) Extended Individual Psychotherapy - 45 min 0 12:00:00 AM EDT [facility] ([facility]) Extended Individual Psychotherapy - 45 min 06/06/2020 12:00:00 AM EDT - 06/06/2020 12:00:00 AM EDT [facility] ([facility]) Extended Individual Psychotherapy - 45 min 0 12:00:00 AM EDT [facility] ([facility]) Results ID Date Data Source [id number] 06/24/2021 12:57:00 PM EDT [facility] Name Value Range Interpretation Code Description Data Apurva rce(s) Supporting Document(s) SARS coronavirus 2 RNA [Presence] in Res piratory specimen by MINDY with probe detection NEGATIVE [facility] This lab was ordered by [facility] a nd reported by [facility]. ID Date Data Source [id number] 06/12/2021 11:48:00 AM EDT [facility] Name Value Range Interpretation Code Description Data Apurva rce(s) Supporting Document(s) SARS coronavirus 2 RNA [Presence] in Res piratory specimen by MINDY with probe detection NEGATIVE [facility] This lab was ordered by [facility] a nd reported by [facility]. ID Date Data Source [id number] 06/01/2021 06:28:00 PM EDT [facility] Name Value Range Interpretation Code Description Data Apurva rce(s) Supporting Document(s) SARS coronavirus 2 RNA [Presence] in Res piratory specimen by MINDY with probe detection NEGATIVE [facility] This lab was ordered by [facility] a nd reported by [facility]. ID Date Data Source TOTAL IRON BINDING CAPACIT 2021 12:00:00 AM EDT eCW1 ( [facility]) Name Value Range Interpretation Code Description Data Apurva rce(s) Supporting Document(s) 24.7 13.2-45.0 PERCENT SATURATION eCW1 ([facility]) 72 50-170 IRON (FE) eCW1 ([facility]) 291 250-450 TOTAL IRON BINDING CAPACI TY eCW1 ([facility]) ID Date Data Source FERRITIN 2021 12:00:00 AM EDT eCW1 ([facility]) Name Value Range Interpretation Code Description Data Apurva rce(s) Supporting Document(s) 109 8-252 FERRITIN eCW1 ([facility]) ID Date Data Source CBC with Differential 05/04/2021 12:00:00 AM EDT eCW1 ([facility]) Name Value Range Interpretation Code Description Data Apurva rce(s) Supporting Document(s) 14.1 4.0-10.0 WHITE BLOOD COUNT eCW1 ([facility]) 41.0 36.0-47.0 HEMATOCRIT eCW1 ([facility]) 3.99 4.00-5.40 RED BLOOD COUNT eCW1 ([facility]) 13.7 12.0-15.5 HEMOGLOBIN eCW1 ([facility]) 34.3 27.0-33.0 MEAN CORPUSCULAR HEMOGLOB IN eCW1 ([facility]) 102.8 80.0-96.0 MEAN CORPUSCULAR VOLUME e CW1 ([facility]) 33.4 32.0-36.5 MEAN CORPUSCULAR HGB CONC eCW1 ([facility]) 74.7 36.0-66.0 NEUTROPHILS % eCW1 ([facility]) 407 150-450 PLATELET COUNT, AUTOMATED eCW1 ([facility]) 12.7 11.5-14.5 RED CELL DISTRIBUTION WID TH eCW1 ([facility]) 0.9 0.0-3.0 EOS % eCW1 ([facility]) 7.9 2.0-8.0 MONO % eCW1 ([facility]) 15.2 24.0-44.0 LYMPH % eCW1 ([facility]) 1.1 0.0-0.8 MONO # eCW1 ([facility]) 10.5 1.5-8.5 NEUTROPHILS # eCW1 ([facility]) 2.2 1.5-5.0 LYMPH # eCW1 ([facility]) 0.7 0.0-1.0 BASO % eCW1 ([facility]) 0.1 0.0-0.5 EOS # eCW1 ([facility]) 0.1 0.0-0.2 BASO # eCW1 ([facility]) ID Date Data Source GASTROINTESTINAL GI PANEL (RAD[facility]) 05/04/2021 12:00:00 AM EDT eCW1 ([facility]) Name Value Range Interpretation Code Description Data Apurva rce(s) Supporting Document(s) This Gastrointestinal PCR Panel detects the following bacteria, GASTROINTESTINAL (GI) PANEL eCW1 ([facility]) ID Date Data Source C REACTIVE PROTEIN QUANTITATIV (At [facility]) 05/04/2021 12:00 :00 AM EDT eCW1 ([facility]) Name Value Range Interpretation Code Description Data Apurva rce(s) Supporting Document(s) 4.93 0.00-0.30 C REACTIVE PROTEIN QUANTI TATIV eCW1 ([facility]) ID Date Data Source Comprehensive Metabolic Profile (CMP) 05/04/2021 12:00:00 AM EDT eCW1 ([facility]) Name Value Range Interpretation Code Description Data Apurva rce(s) Supporting Document(s) 0.59 0.55-1.30 CREATININE FOR GFR eCW1 ([facility]) 6 7-18 BLOOD UREA NITROGEN eCW1 ([facility]) 103 70-100 GLUCOSE, FASTING eCW1 ([facility]) 3.9 3.5-5.1 POTASSIUM SERUM eCW1 ([facility]) 135 136-145 SODIUM LEVEL eCW1 ([facility]) > 60.0 >45 GLOMERULAR FILTRATION RATE eCW 1 ([facility]) 8.6 8.8-10.2 CALCIUM LEVEL eCW1 ([facility]) 25 21-32 CARBON DIOXIDE LEVEL eCW1 ([facility]) 102 98-107 CHLORIDE LEVEL eCW1 ([facility]) 67 12-78 ALT/SGPT eCW1 ([facility]) 108 7-37 AST/SGOT eCW1 ([facility]) 195 45-117 ALKALINE PHOSPHATASE eCW1 ([facility]) 3.0 3.2-5.2 ALBUMIN eCW1 ([facility]) 1.1 0.2-1.0 BILIRUBIN,TOTAL eCW1 ([facility]) 7.0 6.4-8.2 TOTAL PROTEIN eCW1 ([facility]) 0.8 1.2-2.2 ALBUMIN/GLOBULIN RATIO eCW1 ([facility]) ID Date Data Source LIPASE 05/04/2021 12:00:00 AM EDT eCW1 ([facility]) Name Value Range Interpretation Code Description Data Apurva rce(s) Supporting Document(s) 117 73-393 LIPASE eCW1 ([facility]) ID Date Data Source ERYTHROCYTE SEDIMENTATION RATE 05/04/2021 12:00:00 AM EDT eC W1 ([facility]) Name Value Range Interpretation Code Description Data Apurva rce(s) Supporting Document(s) 48 0-30 ERYTHROCYTE SEDIMENTATION RATE eCW1 ([facility]) ID Date Data Source [id number] 12/07/2020 07:38:00 AM EDT [facility] Name Value Range Interpretation Code Description Data Apurva rce(s) Supporting Document(s) White Blood Count 3.5-10.5 Normal (applies to non-numeri c results) [facility] Red Blood Count 3.90-5.00 Normal (applies to non-numeric results) [facility] Hemoglobin 12.0-15.5 Normal (applies to non-numeric resul ts) [facility] Hematocrit 34.9-44.5 Normal (applies to non-numeric resul ts) [facility] Mean Corpuscular Volume 81.2-95.1 Above high normal [facility] Mean Corpuscular Hgb 25.6-32.2 Above high normal [facility] Mean Corpuscular Hgb Conc 32.0-36.0 Normal (applies to no n-numeric results) [facility] Red Cell Distribution Width 11.9-15.5 Normal (appli es to non-numeric results) [facility] Platelet Count 159 x10 3/uL 150-450 Normal (applies to non-numeric results) [facility] Mean Platelet Volume 9.4-12.4 Below low normal [facility] Neutrophils% (Auto) 31.0-71.0 Normal (applies to non-nume fortino results) [facility] Lymphocytes% (Auto) 20.0-55.0 Normal (applies to non-nume fortino results) [facility] Monocytes% (Auto) 4.0-12.0 Normal (applies to non-numeri c results) [facility] Eosinophils% (Auto) 1.0-8.0 Normal (applies to non-nume fortino results) [facility] Basophils% (Auto) 0.0-2.0 Normal (applies to non-numeri c results) [facility] Immature Granulocytes% (Auto) 0.0-2.0 Normal (carmen lies to non-numeric results) [facility] Neutrophils# (Auto) 1.50-6.20 Normal (applies to non-nume fortino results) [facility] Lymphocytes# (Auto) 1.20-4.00 Normal (applies to non-nume fortino results) [facility] Monocytes# (Auto) 0.00-0.90 Normal (applies to non-numeri c results) [facility] Eosinophils# (Auto) 0.00-0.50 Normal (applies to non-nume fortino results) [facility] Basophils# (Auto) 0.00-0.20 Normal (applies to non-numeri c results) [facility] Immature Granulocytes# (Auto) 0.00-7.00 No rmal (applies to non-numeric results) [facility] ID Date Data Source [id number] 12/07/2020 08:39:00 PM EDT [facility] Name Value Range Interpretation Code Description Data Apurva rce(s) Supporting Document(s) Hepatitis A Ab,IgG result Normal (applies to no n-numeric results) [facility] Result indicates immunity to hepatitis A infection from either vaccination or past exposure to hepatitis A. False-positive results may be observed in patients with CMV antibodies or heterophilic antibodies. REFERENCE VALUE Unvaccinated: Negative Vaccinated: Positive Test Performed by: [facility] [place] [address] Poultry Sexer: Darinel Murray M.D. Ph.D.; CLIA# [id number] ID Date Data Source [id number] 12/06/2020 12:54:00 PM EDT [facility] Value Range Interpretation Code Description Data Apurva rce(s) Supporting Document(s) HIV Screen result Nonreactive Normal (applies to non-numer ic results) [facility] Test Performed By: [facility] [address] [place] [address] Director: David Gold MD ID Date Data Source [id number] 12/06/2020 12:54:00 PM EDT [facility] Value Range Interpretation Code Description Data Apurva rce(s) Supporting Document(s) CPK result 62 U/L 26-192 Normal (applies to non-numeric resul ts) [facility] Test Performed By: [place] [address] Director: David Gold MD ID Date Data Source [id number] 12/06/2020 12:54:00 PM EDT [facility] Value Range Interpretation Code Description Data Apurva rce(s) Supporting Document(s) Hepatitis C Virus Ab result Nonreactive Norm al (applies to non-numeric results) [facility] Test Performed By: [place] [address] Director: David Gold MD ID Date Data Source [id number] 12/06/2020 12:54:00 PM EDT [facility] Value Range Interpretation Code Description Data Apurva rce(s) Supporting Document(s) Hep Bs Ag result T-Test Nonreactive Normal (applies to non -numeric results) [facility] Test Performed By: [facility] [address] [place] [address] Director: David Gold MD ID Date Data Source [id number] 12/06/2020 12:54:00 PM EDT [facility] Value Range Interpretation Code Description Data Apurva rce(s) Supporting Document(s) Syphilis Serology result Nonreactive Normal (applies to non-numeric results) [facility] Test Performed By: [facility] [address] [place] [address] Director: David Gold MD ID Date Data Source [id number] 12/05/2020 10:07:00 PM EDT [facility] Name Value Range Interpretation Code Description Data Apurva rce(s) Supporting Document(s) Sodium 138 mmol/L 136-145 Normal (applies to non-numeric resul ts) [facility] Potassium 3.5-5.1 Normal (applies to non-numeric resul ts) [facility] Chloride 99 mmol/L 98-107 Normal (applies to non-numeric resul ts) [facility] Carbon Dioxide CO2 21-32 Normal (applies to non-numer ic results) [facility] Anion Gap 5.0-16.0 Normal (applies to non-numeric resul ts) [facility] BUN 9 mg/dL 7-18 Normal (applies to non-numeric results) [facility] Creatinine,Serum 0.7-1.2 Normal (applies to non-numeric results) [facility] GFR >60 Normal (applies to non-numeric results) [facility] Glucose Level 114 mg/dL 60-99 Above high normal [facility] Reference range is only applicable when patient is fasting Note the following drug interference: Sulfasalazine Sulfapyridine Can see falsely depressed Can see falsely elevated result with up to 17% results with up to 11% decrease in measurement increase in measurement Recommend patients be collected for this test prior to administration of either drug. Calcium 8.5-10.1 Below low normal [facility] Bilirubin,Total 0.1-1.9 Normal (applies to non-numeric results) [facility] SGOT(AST) 90 U/L 15-37 Above high normal [facility] Note the following drug interference: Sulfasalazine Sulfapyridine Can see falsely depressed Can see falsely elevated result with up to 10% results with up to 10% decrease in measurement increase in measurement Recommend patients be collected for this test prior to administration of either drug. SGPT(ALT) 81 U/L 12-78 Above high normal [facility] Note the following drug interference: Sulfasalazine Sulfapyridine Can see falsely depressed Can see falsely elevated result with up to 29% results with up to 10% decrease in measurement increase in measurement Recommend patients be collected for this test prior to administration of either drug. Alkaline Phosphatase 127 U/L 38-126 Above high normal [facility] can increase Alkaline Phosp le vels up to 2 times the normal adult value. Normal values for children and adolescents are 2 to 3 times the normal adult value. Total Protein 6.0-8.2 Normal (applies to non-numeric re sults) [facility] Albumin Level 3.4-5.0 Normal (applies to non-numeric re sults) [facility] ID Date Data Source [id number] 12/05/2020 10:07:00 PM T [facility] Value Range Interpretation Code Description Data Apurva rce(s) Supporting Document(s) Bilirubin,Direct 0.05-0.20 Normal (applies to non-numeric results) [facility] ID Date Data Source [id number] 12/05/2020 10:07:00 PM EDT [facility] Name Value Range Interpretation Code Description Data Apurva rce(s) Supporting Document(s) Phosphorus 2.5-4.9 Normal (applies to non-numeric resul ts) [facility] ID Date Data Source [id number] 12/05/2020 10:07:00 PM EDT [facility] Value Range Interpretation Code Description Data Apurva rce(s) Supporting Document(s) Magnesium 1.8-2.4 Normal (applies to non-numeric resul ts) [facility] ID Date Data Source [id number] 12/05/2020 10:07:00 PM EDT [facility] Value Range Interpretation Code Description Data Apurva rce(s) Supporting Document(s) Thyroid Stimulate Hormone TSH 0.358-3.74 Above high normal [facility] ID Date Data Source [id number] 12/05/2020 09:40:00 PM EDT [facility] Value Range Interpretation Code Description Data Apurva rce(s) Supporting Document(s) White Blood Count 3.5-10.5 Normal (applies to non-numeri c results) [facility] Red Blood Count 3.90-5.00 Normal (applies to non-numeric results) [facility] Hemoglobin 12.0-15.5 Normal (applies to non-numeric resul ts) [facility] Hematocrit 34.9-44.5 Normal (applies to non-numeric resul ts) [facility] Mean Corpuscular Volume 81.2-95.1 Above high normal [facility] Mean Corpuscular Hgb 25.6-32.2 Above high normal [facility] Mean Corpuscular Hgb Conc 32.0-36.0 Normal (applies to no n-numeric results) [facility] Red Cell Distribution Width 11.9-15.5 Normal (appli es to non-numeric results) [facility] Platelet Count 198 x10 3/uL 150-450 Normal (applies to non-numeric results) [facility] Mean Platelet Volume 9.4-12.4 Below low normal [facility] Neutrophils% (Auto) 31.0-71.0 Normal (applies to non-nume fortino results) [facility] Lymphocytes% (Auto) 20.0-55.0 Normal (applies to non-nume fortino results) [facility] Monocytes% (Auto) 4.0-12.0 Normal (applies to non-numeri c results) [facility] Eosinophils% (Auto) 1.0-8.0 Normal (applies to non-nume fortino results) [facility] Basophils% (Auto) 0.0-2.0 Normal (applies to non-numeri c results) [facility] Immature Granulocytes% (Auto) 0.0-2.0 Normal (carmen lies to non-numeric results) [facility] Neutrophils# (Auto) 1.50-6.20 Normal (applies to non-nume fortino results) [facility] Lymphocytes# (Auto) 1.20-4.[address] [facility] Monocytes# (Auto) 0.00-0.90 Normal (applies to non-numeri c results) [facility] Eosinophils# (Auto) 0.00-0.50 Normal (applies to non-nume fortino results) [facility] Basophils# (Auto) 0.00-0.20 Normal (applies to non-numeri c results) [facility] Immature Granulocytes# (Auto) 0.00-7.00 No rmal (applies to non-numeric results) [facility] ID Date Data Source [id number] 12/08/2020 03:15:00 PM EDT [facility] Name Value Range Interpretation Code Description Data Apurva rce(s) Supporting Document(s) Chlamydia,Urine Negative Normal (applies to non-numeric results) [facility] Test Performed By: [facility] [address] [place] [address] Director: David Gold MD . GC Urine Negative Normal (applies to non-numeric resul ts) [facility] Test Performed By: [facility] [address] [place] [address] Director: David Gold MD . Methodology: Second generation nucleic acid amplification. ID Date Data Source [id number] 12/07/2020 08:27:00 PM EDT [facility] Value Range Interpretation Code Description Data Apurva rce(s) Supporting Document(s) Hepatitis A Ab,IgG result Normal (applies to no n-numeric results) [facility] Result indicates immunity to hepatitis A infection from either vaccination or past exposure to hepatitis A. False-positive results may be observed in patients with CMV antibodies or heterophilic antibodies. REFERENCE VALUE Unvaccinated: Negative Vaccinated: Positive Test Performed by: [facility] [place] [address] Poultry Sexer: Darinel Murray M.D. Ph.D.; CLIA# [id number] ID Date Data Source [id number] 12/06/2020 12:49:00 PM EDT [facility] Name Value Range Interpretation Code Description Data Apurva rce(s) Supporting Document(s) HIV 1/2 Ab p24 Ag Screen Nonreactive Normal (applies to non-numeric results) [facility] Test Performed By: [facility] [address] [place] [address] Director: David Gold MD ID Date Data Source [id number] 12/06/2020 12:49:00 PM EDT [facility] Value Range Interpretation Code Description Data Apurva rce(s) Supporting Document(s) Hep C Ab-T Test Nonreactive Normal (applies to non-numeric results) [facility] Test Performed By: [facility] [address] [place] [address] Director: David Gold MD ID Date Data Source [id number] 12/06/2020 12:49:00 PM EDT [facility] Value Range Interpretation Code Description Data Apurva rce(s) Supporting Document(s) Hep Bs Ag Result T-Test Nonreactive Normal (applies to non -numeric results) [facility] Test Performed By: [place] [address] Director: David Gold MD ID Date Data Source [id number] 12/06/2020 12:49:00 PM EDT [facility] Value Range Interpretation Code Description Data Apuvra rce(s) Supporting Document(s) Syphilis Serology Nonreactive Normal (applies to non-numer ic results) [facility] Test Performed By: [facility] [address] [place] [address] Director: David Gold MD ID Date Data Source [id number] 12/06/2020 11:59:00 AM EDT [facility] Value Range Interpretation Code Description Data Apurva rce(s) Supporting Document(s) CPK 62 U/L 26-192 Normal (applies to non-numeric resul ts) [facility] Test Performed By: [facility] [address] [place] [address] Director: David Gold MD ID Date Data Source [id number] 12/05/2020 10:06:00 PM EDT [facility] Name Value Range Interpretation Code Description Data Apurva rce(s) Supporting Document(s) Ethanol Less than 10.0 Normal (applies to non-numeric r esults) [facility] ID Date Data Source [id number] 12/08/2020 04:03:00 PM EDT [facility] Name Value Range Interpretation Code Description Data Apurva rce(s) Supporting Document(s) Chlamydia,Urine result Negative Normal (applies to non-n umeric results) [facility] Test Performed By: [facility] [address] [place] [address] Director: David Gold MD . GC Urine result Negative Normal (applies to non-numeric results) [facility] Test Performed By: [facility] [address] [place] [address] Director: David Gold MD . Methodology: Second generation nucleic acid amplification. ID Date Data Source [id number] 12/05/2020 09:41:00 PM EDT [facility] Name Value Range Interpretation Code Description Data Apurva rce(s) Supporting Document(s) UDS Benzodiazepines Screen Negative Normal (applies to n on-numeric results) [facility] UDS Cocaine Screen Negative Normal (applies to non-numer ic results) [facility] UDS Ampetamine Screen Negative Normal (applies to non-nu meric results) [facility] UDS Cannabinoids Screen Negative Normal (applies to non- numeric results) [facility] UDS Opiates Screen Negative Normal (applies to non-numer ic results) [facility] UDS Barbiturates Screen Negative Normal (applies to non- numeric results) [facility] Threshold Levels Benzodiazepine 200 ng/mL Cocaine 300 ng/mL Amphetamines 1000 ng/mL Cannabinoids (THC) 50 ng/mL Opiates 300 ng/mL Barbiturates 200 ng/mL All positive findings are presumptive and unconfirmed. Confirmation of positive results are performed only at request of provider. Unconfirmed results must not be used for non-medical purposes (i.e. preemployment and legal purposes) ID Date Data Source [id number] 12/05/2020 09:47:00 PM EDT [facility] Collected By: Nurse's Aide Time Collect ed: 2009 Collected By: Nurse's Aide Time Collect ed: 2009 Name Value Range Interpretation Code Description Data Apurva rce(s) Supporting Document(s) Color,Urine Colorl-Dk Y Normal (applies to non-numeric res ults) [facility] Clarity,Urine Clear Normal (applies to non-numeric re sults) [facility] Specific [place],Urine 1.005-1.030 Normal (applies to non- numeric results) [facility] pH,Urine 5.0-8.0 Normal (applies to non-numeric resul ts) [facility] Protein,Urine Negative Normal (applies to non-numeric re sults) [facility] Glucose,Urine Negative Normal (applies to non-numeric re sults) [facility] Ketones,Urine Negative Normal (applies to non-numeric re sults) [facility] Blood,[facility] Negative [facility] Bil[facility],Urine Negative Normal (applies to non-numeric results) [facility] Urobilinogen,Urine 0.2-1.0 Normal (applies to non-numer ic results) [facility] Leukocyte Esterase,Urine Negative Normal (applies to non -numeric results) [facility] Nitrite,Urine Negative Normal (applies to non-numeric re sults) [facility] ID Date Data Source [id number] 12/05/2020 09:47:00 PM EDT [facility] Collected By: Nurse's Aide Time Collect ed: 2009 Collected By: Nurse's Aide Time Collect ed: 2009 Name Value Range Interpretation Code Description Data Apurva rce(s) Supporting Document(s) RBC,Urine None Seen [facility] WBC,Urine None Seen [facility] Casts,Urine None Seen Normal (applies to non-numeric resu lts) [facility] Epithelial Cells,Urine None - Few Normal (applies to non-n umeric results) [facility] Bacteria,Urine None Seen [facility] ital Mucus,Urine None Seen [facility] ID Date Data Source [id number] 12/05/2020 03:44:00 PM EDT [facility] Name Value Range Interpretation Code Description Data Apurva rce(s) Supporting Document(s) SARS-CoV-2 (COVID 19) NEGATIVE - SARS-CoV-2 (COVID19) [facility] This lab was ordered by [facility] a nd reported by [facility]. ID Date Data Source Low Dose Lung Screening CT Chest 06/22/2020 10:10:30 AM EDT eCW1 ([facility]) Name Value Range Interpretation Code Description Data Apurva rce(s) Supporting Document(s) Low Dose Lung Screening CT [address] eCW1 ([facility]) ID Date Data Source [id number] 05/11/2020 08:12:00 PM EDT [facility] [...] and basilic veins. Professional interpretation performed at [facility] .End of diagnostic report for accession: [id number] Interpreted: Jeyson Potts MDTranscribed: 05/11/2020 08:09 PMSigned: 05/11/2020 08:12 PM Jeyson Potts MD [facility] # [id number] BILL # [id number] Name Value Range Interpretation Code Description Data Apurva rce(s) Supporting Document(s) ID Date Data Source [id number] 05/11/2020 07:52:23 AM EDT [facility] Name Value Range Interpretation Code Description Data Apurva rce(s) Supporting Document(s) HGB 9.6 g/dL (12.0-16.0) L [facility] HCT 29.7 % (36.0-47.0) L [facility] ID Date Data Source [id number] 05/11/2020 12:50:54 AM EDT [facility] PATIENT ABO/Rh A POSITIVEANT IBODY SCREEN NEGATIVESPEC EXP DATE 05/13/2020TESTING SITE PERFORMED AT [address] [place], [place] [address]OOD BANK COMMENT BLOOD TYPE CONFIRMED.UNIT NUMBER [id number] COMPONENT TYPE LEUKOPOOR RED CELLSUNIT DIVISION 00STATUS OF UNIT TRANSFUSEDTRANSFUSION STATUS OK TO TRANSFUSECROSSMATCH RESULT COMPATIBLE Name Value Range Interpretation Code Description Data Apurva rce(s) Supporting Document(s) ID Date Data Source [id number] 05/10/2020 06:16:35 PM EDT [facility] Name Value Range Interpretation Code Description Data Apurva rce(s) Supporting Document(s) HGB 7.8 g/dL (12.0-16.0) L [facility] HCT 23.8 % (36.0-47.0) L [facility] ID Date Data Source [id number] 05/10/2020 01:24:51 PM EDT [facility] Name Value Range Interpretation Code Description Data Apurva rce(s) Supporting Document(s) HGB 8.8 g/dL (12.0-16.0) L [facility] HCT 27.3 % (36.0-47.0) L [facility] ID Date Data Source [id number] 05/10/2020 07:07:26 AM EDT [facility] Name Value Range Interpretation Code Description Data Apurav rce(s) Supporting Document(s) MAGNESIUM 1.8 mg/dL (1.7-2.4) [facility] ID Date Data Source [id number] 05/10/2020 07:07:26 AM EDT [facility] Name Value Range Interpretation Code Description Data Apurva rce(s) Supporting Document(s) PHOSPHORUS 3.1 mg/dL (2.5-4.5) [facility] ID Date Data Source [id number] 05/10/2020 07:07:26 AM EDT [facility] Name Value Range Interpretation Code Description Data Apurva rce(s) Supporting Document(s) SODIUM 139 mmol/L (136-145) [facility] POTASSIUM 3.4 mmol/L (3.6-5.2) L [facility] CHLORIDE 106 mmol/L (100-108) [facility] CO2 22 mmol/L (22-31) [facility] ANION GAP 11 mmol/L (7-16) [facility] UREA NITROGEN 3 mg/dL (7-24) L [facility] CREATININE 0.68 mg/dL (0.60-1.00) [facility] BUN/CREAT RATIO 4.4 RATIO (10.0-20.0) L [facility] GLUCOSE 104 mg/dL (70-99) H [facility] CALCIUM 7.8 mg/dL (8.4-10.2) L [facility] GFR >60 ml/min/1.73m2 (>59) [facility] GFR ( AMER) >60 ml/min/1.73m2 (>59) [facility] GFR INTERPRETATION Lab [facility] --NORMAL KIDNEY FUNCTION OR MILD DISEASE - GFR >OR= 60CHRONIC KIDNEY DISEASE - GFR 15 - 59RENAL FAILURE - GFR <15 Est. GFR calculation based on the MDRDstudy equation, which assumes a steadystate for creatinine. Est. GFR should notbe used for medication dosing. ID Date Data Source [id number] 05/10/2020 06:59:27 AM EDT [facility] Name Value Range Interpretation Code Description Data Apurva rce(s) Supporting Document(s) APTT 68.6 s (22.0-34.3) H [facility] ID Date Data Source [id number] 05/10/2020 06:40:19 AM EDT [facility] Name Value Range Interpretation Code Description Data Apurva rce(s) Supporting Document(s) HGB 8.3 g/dL (12.0-16.0) L [facility] HCT 26.0 % (36.0-47.0) L [facility] ID Date Data Source [id number] 2020 10:43:08 PM EDT [facility] Name Value Range Interpretation Code Description Data Apurva rce(s) Supporting Document(s) APTT 42.7 s (22.0-34.3) H [facility] ID Date Data Source [id number] 2020 11:02:31 PM EDT [facility] Name Value Range Interpretation Code Description Data Apurva rce(s) Supporting Document(s) SPECIMEN DESCRIPTION [facility] C DIFF TOXIN B (NEG) [facility] 027 NAP1 B1 (NEG) [facility] COMMENT [facility] IS CLINICALLY INDICATED, PLEASE CONTA CT THE [facility]OLOGY LABORAT[facility] ([phone]) WITHIN 3 DAYS OF THIS REPORT. ID Date Data Source [id number] 2020 04:48:27 PM EDT [facility] Name Value Range Interpretation Code Description Data Apurva rce(s) Supporting Document(s) HGB 9.1 g/dL (12.0-16.0) L [facility] HCT 29.4 % (36.0-47.0) L [facility] ID Date Data Source [id number] 05/10/2020 10:06:27 AM EDT [facility] [place], [place] [address]Tel# SURGICAL PATHOLOGY REPORTPatient Name:CHERIE JAMESB:2Received:2020Accession #:[id number](s) [...] Out By Shahzad Troy M.D. [facility], [place], [place] [address]Technical component performed at [facility], [facility], [address] [place] [address], [phone].Reported at [facility], [address] [place] [address], [phone].This report may include immunohistochemical or in-situ hybridizationresults. Testing was developed and the performance characteristicsdetermined by [email or web address], as required byCLIA '88. The FDA has determined that approval for specific use is notnecessary for clinical use. The quality of Hematoxylin and Eosin stainsand as applicable, for all immunohistochemical and/or special stains,including positive and negative controls, were reviewed and consider edappropriate.ICD codes: R89.7CPT4 codes: A: 95002DY: 53144X Name Value Range Interpretation Code Description Data Apurva rce(s) Supporting Document(s) ID Date Data Source [id number] 2020 01:47:24 PM EDT [facility] Name Value Range Interpretation Code Description Data Apurva rce(s) Supporting Document(s) POC GLUCOSE 83 mg/dL (70-99) [facility] NOTIFIED NURSEPERFORMED BY CLINICAL S TAFF ID Date Data Source [id number] 2020 06:43:20 AM EDT [facility] Name Value Range Interpretation Code Description Data Apurva rce(s) Supporting Document(s) APTT 55.0 s (22.0-34.3) H [facility] ID Date Data Source [id number] 2020 06:40:39 AM EDT [facility] Name Value Range Interpretation Code Description Data Apurva rce(s) Supporting Document(s) WBC 8.8 10*3/uL (4.1-11.0) [facility] [place] RBC 2.47 10*6/uL (4.00-5.40) L [facility] HGB 7.5 g/dL (12.0-16.0) L [facility] HCT 23.5 % (36.0-47.0) L [facility] MCV 95.0 fL (80.0-95.0) [facility] MCH 30.5 pg (27.0-32.0) [facility] MCHC 32.1 g/dL (32.0-36.0) [facility] RDW 17.3 % (10.5-14.5) H [facility] PLT 484 10*3/uL (150-450) H [facility] MPV 9.4 fL (7.1-10.7) [facility] NEUT % 68.1 % (35.0-75.0) [facility] LYMPH % 17.1 % (16.0-52.0) [facility] MONO % 10.1 % (0.0-8.0) H [facility] EOS % 2.4 % (0.0-5.0) [facility] BASO % 2.3 % (0.0-4.0) [facility] NEUT # 6.0 10*3/uL (1.8-7.7) [facility] LYMPH # 1.5 10*3/uL (1.2-4.8) [facility] MONO # 0.9 10*3/uL (0.0-0.8) H [facility] Eosinophils [#/volume] in Blood by Automated count 0.2 10*3/uL (0.0-0 .5) [facility] BASO # 0.2 10*3/uL (0.0-0.2) [facility] ID Date Data Source [id number] 05/08/2020 09:34:49 PM EDT Lab [facility] Name Value Range Interpretation Code Description Data Apurva rce(s) Supporting Document(s) APTT 61.7 s (22.0-34.3) H [facility] ID Date Data Source [id number] 05/08/2020 02:20:50 PM EDT [facility] Name Value Range Interpretation Code Description Data Apurva rce(s) Supporting Document(s) APTT 74.6 s (22.0-34.3) H [facility] ID Date Data Source [id number] 05/08/2020 10:35:00 AM EDT [facility] Name Value Range Interpretation Code Description Data Apurva rce(s) Supporting Document(s) SARS coronavirus 2 RNA [Presence] in Res piratory specimen by MINDY with probe detection Lab [facility] This lab was reported by [facility]. ID Date Data Source [id number] 05/08/2020 03:28:37 PM EDT [facility] Name Value Range Interpretation Code Description Data Apurva rce(s) Supporting Document(s) SPECIMEN DESCRIPTION [facility] COVID19 RESULT (NDET) Lab [facility] THIS ASSAY AMPLIFIES AND DETECTSTHE TARG ET RNA USING REAL-TIME PCR.NEGATIVE 2019_NCOV RT-PCR RESULTS DONOT PRECLUDE 2019_NCOV INFECTION ANDSHOULD NOT BE USED THE SOLE BASISFOR PATIENT MANAGEMENT DECISIONS. COMMENT [facility]. THE U.S. FOODAND DRUG ADMINISTRATION HAS NOT APPROVEDTHIS TEST. NEGATIVE RESULTS DO NOT [id number] INFECTION AND SHOULD NOT BEUSED THE SOLE BASIS FOR CLINICALDIAGNOSIS OR PATIENT MANAGEMENT DECISIONS.EMAILED TO [facility] AT [address] [place] [address] [id number]. FIRST TEST [facility] SYMPTOMATIC [facility] DATE OF SYMPT ONSET [facility] HOSPITALIZED [facility] [place] [facility] CONGREGATE CARE SET [facility] ID Date Data Source [id number] 05/08/2020 07:10:35 AM EDT [facility] Name Value Range Interpretation Code Description Data Apurva rce(s) Supporting Document(s) SODIUM 138 mmol/L (136-145) [facility] POTASSIUM 3.6 mmol/L (3.6-5.2) [facility] CHLORIDE 105 mmol/L (100-108) [facility] CO2 21 mmol/L (22-31) L [facility] ANION GAP 12 mmol/L (7-16) [facility] UREA NITROGEN 6 mg/dL (7-24) L [facility] CREATININE 1.04 mg/dL (0.60-1.00) H [facility] BUN/CREAT RATIO 5.8 RATIO (10.0-20.0) L [facility] GLUCOSE 105 mg/dL (70-99) H [facility] CALCIUM 8.2 mg/dL (8.4-10.2) L [facility] GFR 53 ml/min/1.73m2 (>59) L [facility] GFR ( AMER) >60 ml/min/1.73m2 (>59) [facility] GFR INTERPRETATION Lab [facility] --NORMAL KIDNEY FUNCTION OR MILD DISEASE - GFR >OR= 60CHRONIC KIDNEY DISEASE - GFR 15 - 59RENAL FAILURE - GFR <15 Est. GFR calculation based on the MDRDstudy equation, which assumes a steadystate for creatinine. Est. GFR should notbe used for medication dosing. ID Date Data Source [id number] 05/08/2020 07:10:35 AM EDT [facility] Name Value Range Interpretation Code Description Data Apurva rce(s) Supporting Document(s) MAGNESIUM 1.9 mg/dL (1.7-2.4) [facility] ID Date Data Source [id number] 05/08/2020 06:48:47 AM EDT [facility] Name Value Range Interpretation Code Description Data Apurva rce(s) Supporting Document(s) APTT 87.7 s (22.0-34.3) H [facility] ID Date Data Source [id number] 05/08/2020 06:46:31 AM EDT [facility] Name Value Range Interpretation Code Description Data Apurva rce(s) Supporting Document(s) WBC 11.2 10*3/uL (4.1-11.0) H [facility] RBC 3.00 10*6/uL (4.00-5.40) L [facility] HGB 9.2 g/dL (12.0-16.0) L [facility] HCT 28.9 % (36.0-47.0) L [facility] MCV 96.3 fL (80.0-95.0) H [facility] MCH 30.7 pg (27.0-32.0) [facility] MCHC 31.8 g/dL (32.0-36.0) L [facility] RDW 17.4 % (10.5-14.5) H [facility] PLT 609 10*3/uL (150-450) H [facility] MPV 9.5 fL (7.1-10.7) [facility] NEUT % 68.7 % (35.0-75.0) [facility] LYMPH % 19.0 % (16.0-52.0) [facility] MONO % 8.6 % (0.0-8.0) H [facility] EOS % 2.4 % (0.0-5.0) [facility] BASO % 1.3 % (0.0-4.0) [facility] NEUT # 7.7 10*3/uL (1.8-7.7) [facility] LYMPH # 2.1 10*3/uL (1.2-4.8) [facility] MONO # 1.0 10*3/uL (0.0-0.8) H [facility] Eosinophils [#/volume] in Blood by Automated count 0.3 10*3/uL (0.0-0 .5) [facility] BASO # 0.1 10*3/uL (0.0-0.2) [facility] ID Date Data Source [id number] 05/07/2020 10:37:54 PM EDT [facility] Name Value Range Interpretation Code Description Data Apurva rce(s) Supporting Document(s) APTT 80.0 s (22.0-34.3) H [facility] ID Date Data Source [id number] 05/07/2020 04:34:59 PM EDT [facility] Name Value Range Interpretation Code Description Data Apurva rce(s) Supporting Document(s) APTT 61.4 s (22.0-34.3) H [facility] ID Date Data Source [id number] 05/07/2020 04:17:37 PM EDT [facility] Name Value Range Interpretation Code Description Data Apurva rce(s) Supporting Document(s) HGB 8.7 g/dL (12.0-16.0) L [facility] HCT 26.5 % (36.0-47.0) L [facility] ID Date Data Source [id number] 05/07/2020 08:01:54 AM EDT [facility] Name Value Range Interpretation Code Description Data Apurva rce(s) Supporting Document(s) PHOSPHORUS 2.4 mg/dL (2.5-4.5) L [facility] ID Date Data Source [id number] 05/07/2020 08:01:54 AM EDT [facility] Name Value Range Interpretation Code Description Data Apurva rce(s) Supporting Document(s) MAGNESIUM 1.6 mg/dL (1.7-2.4) L [facility] ID Date Data Source [id number] 05/07/2020 08:01:54 AM EDT [facility] Name Value Range Interpretation Code Description Data Apurva rce(s) Supporting Document(s) TOTAL PROTEIN 5.4 g/dL (6.4-8.2) L [facility] ALBUMIN 2.3 g/dL (3.2-4.5) L [facility] GLOBULIN 3.1 g/dL (2.7-4.3) [facility] ALB/GLOB RATIO 0.7 RATIO [facility] BILIRUBIN,TOTAL 0.5 mg/dL (0.0-1.0) [facility] PLEASE NOTE:Total bilirubin results may be falselyelevated in patients taking Eltrombopag. BILIRUBIN,CONJUGATED 0.3 mg/dL (0.0-0.3) [facility] BILIRUBIN,UNCONJ. 0.2 mg/dL (0.0-0.7) [facility] ALKALINE PHOSPHATASE 105 U/L (45-117) [facility] AST (SGOT) 41 U/L (11-39) H [facility] ALT (SGPT) 33 U/L (12-78) [facility] ID Date Data Source [id number] 05/07/2020 08:01:54 AM EDT [facility] Name Value Range Interpretation Code Description Data Apurva rce(s) Supporting Document(s) SODIUM 138 mmol/L (136-145) [facility] POTASSIUM 3.8 mmol/L (3.6-5.2) [facility] CHLORIDE 104 mmol/L (100-108) [facility] CO2 24 mmol/L (22-31) [facility] ANION GAP 10 mmol/L (7-16) [facility] UREA NITROGEN 5 mg/dL (7-24) L [facility] CREATININE 0.80 mg/dL (0.60-1.00) [facility] BUN/CREAT RATIO 6.3 RATIO (10.0-20.0) L [facility] GLUCOSE 98 mg/dL (70-99) [facility] CALCIUM 8.3 mg/dL (8.4-10.2) L [facility] GFR >60 ml/min/1.73m2 (>59) [facility] GFR ( AMER) >60 ml/min/1.73m2 (>59) [facility] GFR INTERPRETATION [facility] --NORMAL KIDNEY FUNCTION OR MILD DISEASE - GFR >OR= 60CHRONIC KIDNEY DISEASE - GFR 15 - 59RENAL FAILURE - GFR <15 Est. GFR calculation based on the MDRDstudy equation, which assumes a steadystate for creatinine. Est. GFR should notbe used for medication dosing. ID Date Data Source [id number] 05/07/2020 07:29:24 AM EDT [facility] Name Value Range Interpretation Code Description Data Apurva rce(s) Supporting Document(s) APTT 38.9 s (22.0-34.3) H [facility] ID Date Data Source [id number] 05/07/2020 07:18:03 AM EDT [facility] Name Value Range Interpretation Code Description Data Apurva rce(s) Supporting Document(s) WBC 9.1 10*3/uL (4.1-11.0) [facility] [place] RBC 2.71 10*6/uL (4.00-5.40) L [facility] HGB 8.6 g/dL (12.0-16.0) L [facility] HCT 25.9 % (36.0-47.0) L [facility] MCV 95.5 fL (80.0-95.0) H [facility] MCH 31.7 pg (27.0-32.0) [facility] MCHC 33.2 g/dL (32.0-36.0) [facility] RDW 16.8 % (10.5-14.5) H [facility] PLT 448 10*3/uL (150-450) [facility] MPV 9.8 fL (7.1-10.7) [facility] NEUT % 68.9 % (35.0-75.0) [facility] LYMPH % 18.3 % (16.0-52.0) [facility] MONO % 9.2 % (0.0-8.0) [facility] EOS % 2.5 % (0.0-5.0) [facility] BASO % 1.1 % (0.0-4.0) [facility] NEUT # 6.2 10*3/uL (1.8-7.7) [facility] LYMPH # 1.7 10*3/uL (1.2-4.8) [facility] MONO # 0.8 10*3/uL (0.0-0.8) [facility] Eosinophils [#/volume] in Blood by Automated count 0.2 10*3/uL (0.0-0 .5) [facility] BASO # 0.1 10*3/uL (0.0-0.2) [facility] ID Date Data Source [id number] 05/06/2020 05:45:01 PM EDT [facility] Name Value Range Interpretation Code Description Data Apurva rce(s) Supporting Document(s) HGB 9.2 g/dL (12.0-16.0) L [facility] HCT 28.2 % (36.0-47.0) [facility] ID Date Data Source [id number] 05/08/2020 04:04:00 PM EDT [facility] [place] [address] [place], [place] [address]TWLRTCM NAME: ALEX JAMESDATE OF : 2REPORT: DISCHARGE SUMMARYPATIENT NUMBER: [id number] STATUS: IPMEDICAL RECORD NUMBER: [id number] OF ADMISSION: 04/25/2020DATE OF DISCHARGE: 05/06/2020ROOM: 00DISCHARGE/TRANSFER [...] Otherwise, [facility] She is to continue on the thiamine. GI will continue to followher.DICTATED BY: WADE Elizabethictated: 05/06/2020 12:51DT: 05/06/2020 13:34Job #: [id number]: [facility] [employer] g enerated reports are notconfirmed or authenticated unless they are signed by the providerElectronically Authenticated by:LOR PELAEZ MD On 05/08/2020 04:04 PM EDT Name Value Range Interpretation Code Description Data Apurva rce(s) Supporting Document(s) ID Date Data Source [id number] 05/06/2020 11:09:23 AM EDT [facility] Name Value Range Interpretation Code Description Data Apurva rce(s) Supporting Document(s) APTT 57.0 s (22.0-34.3) H [facility] ID Date Data Source [id number] 05/06/2020 04:42:35 AM EDT [facility] Name Value Range Interpretation Code Description Data Apurva rce(s) Supporting Document(s) WBC 8.3 10*3/uL (4.1-11.0) [facility] [place] RBC 2.93 10*6/uL (4.00-5.40) L [facility] HGB 9.0 g/dL (12.0-16.0) L [facility] HCT 27.7 % (36.0-47.0) L [facility] MCV 94.7 fL (80.0-95.0) [facility] MCH 30.8 pg (27.0-32.0) [facility] MCHC 32.5 g/dL (32.0-36.0) [facility] RDW 17.0 % (10.5-14.5) H [facility] PLT 490 10*3/uL (150-450) [facility] MPV 8.7 fL (7.1-10.7) [facility] ID Date Data Source [id number] 05/06/2020 04:53:50 AM EDT [facility] Name Value Range Interpretation Code Description Data Apurva rce(s) Supporting Document(s) APTT 60.8 s (22.0-34.3) H [facility] ID Date Data Source [id number] 05/06/2020 03:29:44 AM EDT [facility] Name Value Range Interpretation Code Description Data Apurva rce(s) Supporting Document(s) PHOSPHORUS 3.0 mg/dL (2.5-4.5) [facility] ID Date Data Source [id number] 05/06/2020 03:29:44 AM EDT [facility] Name Value Range Interpretation Code Description Data Apurva rce(s) Supporting Document(s) SODIUM 142 mmol/L (136-145) [facility] POTASSIUM 3.6 mmol/L (3.6-5.2) [facility] CHLORIDE 107 mmol/L (100-108) [facility] CO2 27 mmol/L (22-31) [facility] ANION GAP 8 mmol/L (7-16) [facility] UREA NITROGEN 5 mg/dL (7-24) L [facility] CREATININE 0.74 mg/dL (0.60-1.00) [facility] BUN/CREAT RATIO 6.8 RATIO (10.0-20.0) L [facility] GLUCOSE 102 mg/dL (70-99) H [facility] CALCIUM 8.3 mg/dL (8.4-10.2) L [facility] TOTAL PROTEIN 5.8 g/dL (6.4-8.2) L [facility] ALBUMIN 2.5 g/dL (3.2-4.5) L [facility] GLOBULIN 3.3 g/dL (2.7-4.3) [facility] ALB/GLOB RATIO 0.8 RATIO [facility] ALKALINE PHOSPHATASE 120 U/L (45-117) H [facility] BILIRUBIN,TOTAL 0.4 mg/dL (0.0-1.0) [facility] PLEASE NOTE:Total bilirubin results may be falselyelevated in patients taking Eltrombopag. AST (SGOT) 51 U/L (11-39) H [facility] ALT (SGPT) 40 U/L (12-78) [facility] GFR >60 ml/min/1.73m2 (>59) [facility] GFR ( AMER) >60 ml/min/1.73m2 (>59) [facility] GFR INTERPRETATION [facility] --NORMAL KIDNEY FUNCTION OR MILD DISEASE - GFR >OR= 60CHRONIC KIDNEY DISEASE - GFR 15 - 59RENAL FAILURE - GFR <15 Est. GFR calculation based on the MDRDstudy equation, which assumes a steadystate for creatinine. Est. GFR should notbe used for medication dosing. ID Date Data Source [id number] 05/06/2020 03:29:44 AM EDT [facility] Name Value Range Interpretation Code Description Data Apurva rce(s) Supporting Document(s) MAGNESIUM 1.8 mg/dL (1.7-2.4) [facility] ID Date Data Source [id number] 05/06/2020 03:27:19 AM EDT [facility] Name Value Range Interpretation Code Description Data Apurva rce(s) Supporting Document(s) CALCIUM IONIZED 5.04 mg/dL (4.64-5.28) [facility] IONIZED CALCIUM NORMALIZED TO PH 7.40 AN D 37 DEGREES C. ID Date Data Source [id number] 05/06/2020 02:33:31 AM EDT [facility] Name Value Range Interpretation Code Description Data Apurva rce(s) Supporting Document(s) PT 11.9 s (9.2-11.9) [facility] INR 1.14 [facility] SUGGESTED THERAPEUTIC RANGES USING INR F ORSTABILIZED ANTICOAGULATED PATIENTS:STANDARD DOSE THERAPY INR 2.0-3.0 DVT, PE, PREVENT DVT OR EMBOLISMHIGH DOSE THERAPY INR 2.5-3.5 PREVENT EMBOLISM FROM MECHANICAL HEART VALVE Procedure Social History Code Duration Value Status Description Data Source(s ) Smoking 06/20/2021 12:00:00 AM EDT Unknown if ever smoked comp leted Unknown if ever smoked [facility] ([facility]) Smoking 06/08/2021 12:00:00 AM EDT Current Smoker completed Curre nt Smoker eCW1 ([facility]) Smoking 06/08/2021 12:00:00 AM EDT Current Smoker completed Curre nt Smoker eCW1 ([facility]) Smoking 06/08/2021 12:00:00 AM EDT Current Smoker completed Curre nt Smoker eCW1 ([facility]) Smoking 06/08/2021 12:00:00 AM EDT Current Smoker completed Curre nt Smoker eCW1 ([facility]) Smoking 06/05/2021 12:00:00 AM EDT Current Smoker completed Curre nt Smoker eCW1 ([facility]) Smoking 05/15/2021 12:00:00 AM EDT Current Smoker completed Curre nt Smoker eCW1 ([facility]) Smoking 05/04/2021 12:00:00 AM EDT Current Smoker completed Curre nt Smoker eCW1 ([facility]) Smoking 05/04/2021 12:00:00 AM EDT Current Smoker completed Curre nt Smoker eCW1 ([facility]) Smoking 05/04/2021 12:00:00 AM EDT Current Smoker completed Curre nt Smoker eCW1 ([facility]) Smoking 05/04/2021 12:00:00 AM EDT Current Smoker completed Curre nt Smoker eCW1 ([facility]) Smoking 04/12/2021 12:00:00 AM EDT Current Smoker completed Curre nt Smoker eCW1 ([facility]) Smoking 04/12/2021 12:00:00 AM EDT Current Smoker completed Curre nt Smoker eCW1 ([facility]) Smoking 04/05/2021 12:00:00 AM EDT Unknown if ever smoked comp leted Unknown if ever smoked [facility] ([facility]) Smoking 03/07/2021 12:00:00 AM EDT Unknown if ever smoked comp leted Unknown if ever smoked [facility] ([facility]) Smoking 01/16/2021 12:00:00 AM EDT Unknown if ever smoked comp leted Unknown if ever smoked [facility] ([facility]) Smoking 01/09/2021 12:00:00 AM EDT Unknown if ever smoked comp leted Unknown if ever smoked [facility] ([facility]) Smoking 01/01/2021 12:00:00 AM EDT Current Smoker completed Curre nt Smoker eCW1 ([facility]) Smoking 01/01/2021 12:00:00 AM EDT Current Smoker completed Curre nt Smoker eCW1 ([facility]) Smoking 01/01/2021 12:00:00 AM EDT Current Smoker completed Curre nt Smoker eCW1 ([facility]) Smoking 01/01/2021 12:00:00 AM EDT Current Smoker completed Curre nt Smoker eCW1 ([facility]) Smoking 01/01/2021 12:00:00 AM EDT Current Smoker completed Curre nt Smoker eCW1 ([facility]) Smoking 12/26/2020 12:00:00 AM EDT Unknown if ever smoked comp leted Unknown if ever smoked [facility] ([facility]) Smoking 12/19/2020 12:00:00 AM EDT Unknown if ever smoked comp leted Unknown if ever smoked [facility] ([facility]) Smoking 12/12/2020 12:00:00 AM EDT Unknown if ever smoked comp leted Unknown if ever smoked [facility] ([facility]) Smoking 11/21/2020 12:00:00 AM EDT Unknown if ever smoked comp leted Unknown if ever smoked [facility] ([facility]) Smoking 11/14/2020 12:00:00 AM EDT Unknown if ever smoked comp leted Unknown if ever smoked [facility] ([facility]) Smoking 10/19/2020 12:00:00 AM EST Unknown if ever smoked comp leted Unknown if ever smoked [facility] ([facility]) Smoking 10/17/2020 12:00:00 AM EST Unknown if ever smoked comp leted Unknown if ever smoked [facility] ([facility]) Smoking 10/02/2020 12:00:00 AM EST Current Smoker completed Curre nt Smoker eCW1 ([facility]) Smoking 10/02/2020 12:00:00 AM EST Current Smoker completed Curre nt Smoker eCW1 ([facility]) Smoking 10/02/2020 12:00:00 AM EST Current Smoker completed Curre nt Smoker eCW1 ([facility]) Smoking 10/02/2020 12:00:00 AM EST Current Smoker completed Curre nt Smoker eCW1 ([facility]) Smoking 10/02/2020 12:00:00 AM EST Current Smoker completed Curre nt Smoker eCW1 ([facility]) Smoking 10/02/2020 12:00:00 AM EST Current Smoker completed Curre nt Smoker eCW1 ([facility]) Smoking 09/27/2020 12:00:00 AM EST Unknown if ever smoked comp leted Unknown if ever smoked [facility] ([facility]) Smoking 09/05/2020 12:00:00 AM EST Unknown if ever smoked comp leted Unknown if ever smoked [facility] ([facility]) Smoking 08/30/2020 12:00:00 AM EST Current Smoker completed Curre nt Smoker eCW1 ([facility]) Smoking 08/30/2020 12:00:00 AM EST Current Smoker completed Curre nt Smoker eCW1 ([facility]) Smoking 08/30/2020 12:00:00 AM EST Current Smoker completed Curre nt Smoker eCW1 ([facility]) Smoking 08/30/2020 12:00:00 AM EST Current Smoker completed Curre nt Smoker eCW1 ([facility]) Smoking 08/30/2020 12:00:00 AM EST Current Smoker completed Curre nt Smoker eCW1 ([facility]) Smoking 08/22/2020 12:00:00 AM EST Unknown if ever smoked comp leted Unknown if ever smoked [facility] ([facility]) Smoking 07/28/2020 12:00:00 AM EST Unknown if ever smoked comp leted Unknown if ever smoked [facility] ([facility]) Smoking 07/25/2020 12:00:00 AM EST Unknown if ever smoked comp leted Unknown if ever smoked [facility] ([facility]) Smoking 07/11/2020 12:00:00 AM EST Current Smoker completed Curre nt Smoker eCW1 ([facility]) Smoking 07/11/2020 12:00:00 AM EST Current Smoker completed Curre nt Smoker eCW1 ([facility]) Smoking 07/04/2020 12:00:00 AM EST Unknown if ever smoked comp leted Unknown if ever smoked [facility] ([facility]) Smoking 06/20/2020 12:00:00 AM EDT Unknown if ever smoked comp leted Unknown if ever smoked [facility] ([facility]) Smoking 06/06/2020 12:00:00 AM EDT Unknown if ever smoked comp leted Unknown if ever smoked [facility] ([facility]) Vital Signs ID Date Data Source UNK Name Value Range Interpretation Code Description Data Source(s) Respiratory rate 18 /min 18 /min eCW1 ([facility]) Body weight 156 [lb_av] 156 [lb_av] eCW1 ([facility]) Body weight 70.76 kg 70.76 kg eCW1 ([facility]) Body temperature 97.8 [degF] 97.8 [degF] eCW1 ( [facility]) Body height [in_i] eCW1 ([facility]) Body mass index (BMI) [Ratio] 28.08 kg/m2 28.08 kg/m2 eCW1 ([facility]) Heart rate 116 /min 116 /min eCW1 ([facility]) Systolic blood pressure 132 mm[Hg] 132 mm[Hg] e CW1 ([facility]) Diastolic blood pressure 78 mm[Hg] 78 mm[Hg] eCW1 ([facility]) Body weight 72.12 kg 72.12 kg eCW1 ([facility]) Systolic blood pressure 128 mm[Hg] 128 mm[Hg] e CW1 ([facility]) Diastolic blood pressure 70 mm[Hg] 70 mm[Hg] eCW1 ([facility]) Body height [in_i] eCW1 ([facility]) Body mass index (BMI) [Ratio] 28.61 kg/m2 28.61 kg/m2 eCW1 ([facility]) Body weight 159 [lb_av] 159 [lb_av] eCW1 ([facility]) Heart rate 101 /min 101 /min eCW1 ([facility]) Respiratory rate 18 /min 18 /min eCW1 ([facility]) Body temperature 97.8 [degF] 97.8 [degF] eCW1 ( [facility]) Body height 0.00 in Normal (applies to non-numeric resu lts) 0.00 in [facility] ([facility]) Body weight Measured 0.00 lbs Normal (applies to n on-numeric results) 0.00 lbs [facility] ([facility]) Body mass index (BMI) [Ratio] 0.00 kg/m2 No rmal (applies to non-numeric results) 0.00 kg/m2 [facility] ([facility]) Systolic blood pressure 0 mm[Hg] Normal (applies t o non-numeric results) 0 mm[Hg] [facility] ([facility]) Diastolic blood pressure 0 mm[Hg] Normal (applies to non-numeric results) 0 mm[Hg] [facility] ([facility]) Heart rate 107 /min 107 /min eCW1 ([facility]) Respiratory rate 18 /min 18 /min eCW1 ([facility]) Body temperature 95.1 [degF] 95.1 [degF] eCW1 ( [facility]) Systolic blood pressure 132 mm[Hg] 132 mm[Hg] e CW1 ([facility]) Diastolic blood pressure 82 mm[Hg] 82 mm[Hg] eCW1 ([facility]) Body weight 162 [lb_av] 162 [lb_av] eCW1 ([facility]) Body height [in_i] eCW1 ([facility]) Body mass index (BMI) [Ratio] 29.15 kg/m2 29.15 kg/m2 W1 ([facility]) Body mass index (BMI) [Ratio] 0.00 kg/m2 No rmal (applies to non-numeric results) 0.00 kg/m2 [facility] ([facility]) Body height 0.00 in Normal (applies to non-numeric resu lts) 0.00 in [facility] ([facility]) Body weight Measured 0.00 lbs Normal (applies to n on-numeric results) 0.00 lbs [facility] ([facility]) Systolic blood pressure 0 mm[Hg] Normal (applies t o non-numeric results) 0 mm[Hg] [facility] Diastolic blood pressure 0 mm[Hg] Normal (applies to non-numeric results) 0 mm[Hg] [facility] ([facility]) Body height 0.00 in Normal (applies to non-numeric resu lts) 0.00 in [facility] ([facility]) Body weight Measured 0.00 lbs Normal (applies to n on-numeric results) 0.00 lbs [facility] ([facility]) Body mass index (BMI) [Ratio] 0.00 kg/m2 No rmal (applies to non-numeric results) 0.00 kg/m2 [facility] ([facility]) Systolic blood pressure 0 mm[Hg] Normal (applies t o non-numeric results) 0 mm[Hg] [facility] ([facility]) Diastolic blood pressure 0 mm[Hg] Normal (applies to non-numeric results) 0 mm[Hg] [facility] ([facility]) Body height 0.00 in Normal (applies to non-numeric resu lts) 0.00 in [facility] ([facility]) Body weight Measured 0.00 lbs Normal (applies to n on-numeric results) 0.00 lbs [facility] ([facility]) Body mass index (BMI) [Ratio] 0.00 kg/m2 No rmal (applies to non-numeric results) 0.00 kg/m2 [facility] ([facility]) Systolic blood pressure 0 mm[Hg] Normal (applies t o non-numeric results) 0 mm[Hg] [facility] ([facility]) Diastolic blood pressure 0 mm[Hg] Normal (applies to non-numeric results) 0 mm[Hg] [facility] ([facility]) Body weight 157 [lb_av] 157 [lb_av] eCW1 ([facility]) Body height [in_i] eCW1 ([facility]) Body mass index (BMI) [Ratio] 28.25 kg/m2 28.25 kg/m2 eCW1 ([facility]) Heart rate 102 /min 102 /min eCW1 ([facility]) Respiratory rate 18 /min 18 /min eCW1 ([facility]) Body temperature 96.8 [degF] 96.8 [degF] eCW1 ( [facility]) Systolic blood pressure 148 mm[Hg] 148 mm[Hg] e CW1 ([facility]) Diastolic blood pressure 72 mm[Hg] 72 mm[Hg] eCW1 ([facility]) Body height 0.00 in Normal (applies to non-numeric resu lts) 0.00 in [facility] ([facility]) Body weight Measured 0.00 lbs Normal (applies to n on-numeric results) 0.00 lbs [facility] ([facility]) Body mass index (BMI) [Ratio] 0.00 kg/m2 No rmal (applies to non-numeric results) 0.00 kg/m2 [facility] ([facility]) Systolic blood pressure 0 mm[Hg] Normal (applies t o non-numeric results) 0 mm[Hg] [facility] ([facility]) Diastolic blood pressure 0 mm[Hg] Normal (applies to non-numeric results) 0 mm[Hg] [facility] ([facility]) Body weight 155 [lb_av] 155 [lb_av] eCW1 ([facility]) Body height [in_i] eCW1 ([facility]) Body mass index (BMI) [Ratio] 27.90 kg/m2 27.90 kg/m2 W1 ([facility]) Heart rate 97 /min 97 /min W1 ([facility]) Respiratory rate 17 /min 17 /min W1 ([facility]) Body temperature 97.4 [degF] 97.4 [degF] eCW1 ( [facility]) Systolic blood pressure 138 mm[Hg] 138 mm[Hg] e CW1 ([facility]) Diastolic blood pressure 82 mm[Hg] 82 mm[Hg] eCW1 ([facility]) Body height 0.00 in Normal (applies to non-numeric resu lts) 0.00 in [facility] ([facility]) Body weight Measured 0.00 lbs Normal (applies to n on-numeric results) 0.00 lbs [facility] ([facility]) Body mass index (BMI) [Ratio] 0.00 kg/m2 No rmal (applies to non-numeric results) 0.00 kg/m2 [facility] ([facility]) Systolic blood pressure 0 mm[Hg] Normal (applies t o non-numeric results) 0 mm[Hg] [facility] ([facility]) Diastolic blood pressure 0 mm[Hg] Normal (applies to non-numeric results) 0 mm[Hg] [facility] ([facility]) Body weight 144 [lb_av] 144 [lb_av] eCW1 ([facility]) Body height [in_i] eCW1 ([facility]) Body mass index (BMI) [Ratio] 25.92 kg/m2 25.92 kg/m2 eCW1 ([facility]) Heart rate 112 /min 112 /min eCW1 ([facility]) Respiratory rate 18 /min 18 /min eCW1 ([facility]) Body temperature 96.8 [degF] 96.8 [degF] eCW1 ( [facility]) Systolic blood pressure 132 mm[Hg] 132 mm[Hg] e CW1 ([facility]) Diastolic blood pressure 84 mm[Hg] 84 mm[Hg] eCW1 ([facility]) Systolic blood pressure 124 mm[Hg] Normal (applies t o non-numeric results) 124 mm[Hg] [facility] Diastolic blood pressure 72 mm[Hg] Normal (applies to non-numeric results) 72 mm[Hg] [facility] Heart rate 97 min Normal (applies to non-numeric resul ts) 97 min [facility] Respiratory rate 18 min Normal (applies to non-numeric results) 18 min [facility] Body temperature 37.2 isabell Normal (applies to non-numeric results) 37.2 isabell [facility] Deprecated Oxygen saturation in Capillary blood by Oximetry 97 % Normal (applies to non-numeric results) 97 % [facility] Body height 159.7152 cm Normal (applies to non-numeric res ults) 159.7152 cm [facility] ID Date Data Source [id number] 12/11/2020 08:00:00 AM EDT Nicky da silva Name Value Range Interpretation Code Description Data Source(s) Weight (Calculated Kilograms) 68.04 68.04 [facility] Weight 2400 2400 [facility] pital Temperature Source 7 7 [facility] Temperature 97.7 97.7 [facility] Res[facility] Effort 1 1 [facility] Respiratory Rate 18 18 [facility] Pulse Assessment Method 4 4 G [facility] Pulse Rate 84 84 [facility] pital Height (Calculated Centimeters) 160.02 160. 02 [facility] Height 63 63 [facility] pital Blood Pressure 147/79 147/79 [facility] Body Mass Index (BMI) [address] [facility] Weight (Calculated Kilograms) 68.04 68.04 [facility] Weight 2400 2400 [facility] pital Temperature Source 7 7 [facility] Temperature 97.7 97.7 [facility] spital Respiratory Effort 1 1 [facility] Respiratory Rate 18 18 [facility] Pulse Assessment Method 4 4 G [facility] Pulse Rate 84 84 [facility] pital Height (Calculated Centimeters) 160.02 160. 02 [facility] Height 63 63 [facility] pital Blood Pressure 147/79 147/79 [facility] Body Mass Index (BMI) 26.[address] [facility] Weight (Calculated Kilograms) 68.04 68.04 [facility] Weight 2400 2400 [facility] pital Temperature Source 7 7 [facility] Temperature 98.6 98.6 [place] [facility] Respiratory Effort 1 1 [facility] Respiratory Rate 18 18 [facility] Pulse Assessment Method 4 4 G [facility] Pulse Rate 73 73 [facility] pital Height (Calculated Centimeters) 160.02 160. 02 [facility] Height 63 63 [facility] pital Blood Pressure 133/88 133/88 [facility] Body Mass Index (BMI) 26.[address] [facility] Weight (Calculated Kilograms) 68.04 68.04 [facility] Weight 2400 2400 [facility] pital Temperature Source 7 7 [facility] Temperature 98.0 98.0 [place] [facility] Respiratory Effort 1 1 [facility] Respiratory Rate 16 16 [facility] Pulse Assessment Method 4 4 G [facility] Pulse Rate 87 87 [facility] pital Height (Calculated Centimeters) 160.02 160. 02 [facility] Height 63 63 [facility] pital Blood Pressure 114/74 114/74 [facility] Body Mass Index (BMI) 26.[address] [facility] Weight (Calculated Kilograms) 68.04 68.04 [facility] Weight 2400 2400 [facility] pital Temperature Source 7 7 [facility] Temperature 98.0 98.0 [facility] spital Respiratory Effort 1 1 [facility] Respiratory Rate 16 16 [facility] Pulse Assessment Method 4 4 G [facility] Pulse Rate 114 114 [facility] pital Height (Calculated Centimeters) 160.02 160. 02 [facility] Height 63 63 [facility] pital Blood Pressure 109/68 109/68 [facility] Body Mass Index (BMI) 26.[address] [facility] Weight (Calculated Kilograms) 68.04 68.04 [facility] Weight 2400 2400 [facility] pital Temperature Source 7 7 [facility] Temperature 98.0 98.0 [facility] spital Respiratory Effort 1 1 [facility] Respiratory Rate 16 16 [facility] Pulse Assessment Method 4 4 G [facility] Pulse Rate 114 114 [facility] pital Height (Calculated Centimeters) 160.02 160. 02 [facility] [address] [facility] Pressure 109/68 109/68 [facility] Body Mass Index (BMI) 26.[address] [facility] Weight (Calculated Kilograms) 68.67 68.67 [facility] Height (Calculated Centimeters) 160.02 160. 02 [facility] Body Mass Index (BMI) 26.[address] [facility] ID Date Data Source [id number] 12/05/2020 07:49:00 PM EDT [place] [facility] Name Value Range Interpretation Code Description Data Source(s) Weight Measurement Method 1 1 [facility] Weight (Calculated Kilograms) 69.22 69.22 [facility] Weight 2441.6 2441.6 [facility] pital Temperature Source 3 3 [facility] Temperature 97.3 97.3 [facility] spital Respiratory Effort 1 1 [facility] Respiratory Rate 18 18 [facility] Pulse Assessment Method 4 4 G [facility] Pulse Rate 106 106 [facility] pital Height (Calculated Centimeters) 160.02 160. 02 [facility] Height 63 63 [facility] pital Blood Pressure 128/81 128/81 [facility] Body Mass Index (BMI) [address] [facility] Weight Measurement Method 1 1 [facility] Weight (Calculated Kilograms) 69.22 69.22 [facility] Weight 2441.6 2441.6 [facility] pital Temperature Source 3 3 [facility] Temperature 97.3 97.3 [facility] spital Respiratory Effort 1 1 [facility] Respiratory Rate 18 18 [facility] Pulse Assessment Method 4 4 G [facility] Pulse Rate 106 106 [facility] pital Height (Calculated Centimeters) 160.02 160. 02 [facility] Height 63 63 [facility] pital Blood Pressure 128/81 128/81 [facility] Body Mass Index (BMI) [address] [facility] Weight Measurement Method 1 1 [facility] Weight (Calculated Kilograms) 69.22 69.22 [facility] Weight 2441.6 2441.6 [facility] pital Temperature Source 3 3 [facility] Temperature 97.6 97.6 [facility] Respiratory Effort 1 1 [facility] Respiratory Rate 18 18 [facility] Pulse Assessment Method 4 4 [facility] Pulse Rate 106 106 [facility] pital Height (Calculated Centimeters) 160.02 160. 02 [facility] Height 63 63 [facility] pital Blood Pressure 147/97 147/97 [facility] Body Mass Index (BMI) [address] [facility] Weight Measurement Method 1 1 [facility] Weight (Calculated Kilograms) 69.22 69.22 [facility] Weight 2441.6 2441.6 [facility] pital Temperature Source 7 7 [facility] Temperature 98.7 98.7 [facility] spital Respiratory Effort 1 1 [facility] Respiratory Rate 19 19 [facility] Pulse Assessment Method 4 4 [facility] Pulse Rate 104 104 [facility] pital Height (Calculated Centimeters) 160.02 160. 02 [facility] Height [address] [facility] Blood Pressure 138/79 138/79 [facility] Body Mass Index (BMI) [address] [facility] Patient Treatment Plan of Care Planned Activity Planned Date Details Description Data Source (s) Mupirocin 0.02 MG/MG Topical Ointment 05/04/2021 12:00:00 AM EDT eCW1 ([facility]) Mupirocin 0.02 MG/MG Topical Ointment 05/04/2021 12:00:00 AM EDT eCW1 ([facility]) Mupirocin 0.02 MG/MG Topical Ointment 05/04/2021 12:00:00 AM EDT eCW1 ([facility]) Mupirocin 0.02 MG/MG Topical Ointment 05/04/2021 12:00:00 AM EDT eCW1 ([facility]) ferrous gluconate 324 MG Oral Tablet 04/13/2021 12:00:00 AM EDT eCW1 ([facility]) Nicotine 2 MG Chewing Gum 04/13/2021 12:00:00 AM EDT eCW1 ([facility]) ferrous gluconate 324 MG Oral Tablet 04/13/2021 12:00:00 AM EDT eCW1 ([facility]) Nicotine 2 MG Chewing Gum 04/13/2021 12:00:00 AM EDT eCW1 ([facility]) Prolia 60mg/ml 09/01/2020 12:00:00 AM EST eCW1 ([facility]) Prolia 60mg/ml 09/01/2020 12:00:00 AM EST eCW1 ([facility]) Prolia 60mg/ml 09/01/2020 12:00:00 AM EST eCW1 ([facility]) ferrous gluconate 324 MG Oral Tablet 08/31/2020 12:00:00 AM EST eCW1 ([facility]) ferrous gluconate 324 MG Oral Tablet 08/31/2020 12:00:00 AM EST eCW1 ([facility]) ferrous gluconate 324 MG Oral Tablet 08/31/2020 12:00:00 AM EST eCW1 ([facility]) ferrous gluconate 324 MG Oral Tablet 08/31/2020 12:00:00 AM EST eCW1 ([facility]) ferrous gluconate 324 MG Oral Tablet 08/31/2020 12:00:00 AM EST eCW1 ([facility]) Hydrocortisone 25 MG/ML Topical Cream 06/21/2020 12:00:00 AM EDT eCW1 ([facility]) Hydrocortisone 25 MG/ML Topical Cream 06/21/2020 12:00:00 AM EDT eCW1 ([facility]) Hydrocortisone 25 MG/ML Topical Cream 06/21/2020 12:00:00 AM EDT eCW1 ([facility]) Hydrocortisone 25 MG/ML Topical Cream 06/21/2020 12:00:00 AM EDT eCW1 ([facility]) Hydrocortisone 25 MG/ML Topical Cream 06/21/2020 12:00:00 AM EDT eCW1 ([facility]) Hydrocortisone 25 MG/ML Topical Cream 06/21/2020 12:00:00 AM EDT eCW1 ([facility]) Hydrocortisone 25 MG/ML Topical Cream 06/21/2020 12:00:00 AM EDT eCW1 ([facility]) Hydrocortisone 25 MG/ML Topical Cream 06/21/2020 12:00:00 AM EDT eCW1 ([facility]) Hydrocortisone 25 MG/ML Topical Cream 06/21/2020 12:00:00 AM EDT eCW1 ([facility]) Hydrocortisone (Perianal) 1 % 05/18/2020 01:00:00 AM EDT NETSMART ([facility]) Cranberry Ultra Strength 250-60 MG 05/18/2020 01:00:00 AM EDT [facility] ([facility]) Vagisil Maximum Strength 20-3 % 05/18/2020 01:00:00 AM EDT [facility]SM[facility]) Atorvastatin Calcium 80 MG 05/15/2020 01:00:00 AM EDT [facility]) Citalopram Hydrobromide 20 MG 05/15/2020 01:00:00 AM EDT [facility] Eliquis 2.5 MG 05/15/2020 01:00:00 AM EDT [facility]) Pantoprazole Sodium 40 MG 05/15/2020 01:00:00 AM EDT [facility]) Sucralfate 1 GM 05/15/2020 01:00:00 AM EDT [facility] ([facility]) Vitamin D3 1000 UNIT 05/15/2020 01:00:00 AM EDT [facility]) Calcium 600+D3 600-800 MG-UNIT 05/15/2020 01:00:00 AM EDT [facility]) C-1000 1000 MG 05/15/2020 01:00:00 AM EDT [facility] ([facility]) Benadryl Allergy 25 MG 05/15/2020 01:00:00 AM EDT [facility]) Aleve 220 MG 05/15/2020 01:00:00 AM EDT N [facility] ([facility]) Ibuprofen 200 MG 05/15/2020 01:00:00 AM EDT [facility]) Stress B Complex/Iron 05/15/2020 01:00:00 AM EDT [facility]) Melatonin 10 MG 05/15/2020 01:00:00 AM EDT [facility]) Tums Extra Strength 750 750 MG 05/15/2020 01:00:00 AM EDT [facility] ([facility]) Neosporin Original 05/15/2020 01:00:00 AM EDT [facility] ([facility])
--- NOTE | 2021-07-06 01:32 | REPVR ---
PROCEDURE INFORMATION: Exam: CT Abdomen And Pelvis With Contrast Exam date and time: 07/06/2021 12:16 AM Age: 71 years old Clinical indication: Abdominal pain; Generalized; Additional info: Abdo distension, pain TECHNIQUE: Imaging protocol: Computed tomography of the abdomen and pelvis with contrast. Radiation optimization: All CT scans at this facility use at least one of these dose optimization techniques: automated exposure control; mA and/or kV adjustment per patient size (includes targeted exams where dose is matched to clinical indication); or iterative reconstruction. Contrast material: ISO; Contrast volume: 100 ml; Contrast route: INTRAVENOUS (IV); COMPARISON: CT ABD PELVIS W/O CONTRAST 06/12/2021 2:09 PM FINDINGS: Lungs: Scarring and bronchiectasis in the right middle and lower lobes. Linear atelectasis or scarring in the left lower lobe. Heart: Cardiomegaly. Atherosclerotic disease of the coronary arteries. Liver: Cirrhosis and hepatomegaly. Geographic steatosis. Gallbladder and bile ducts: Distended gallbladder. Pancreas: Normal. No ductal dilation. Spleen: Normal. No splenomegaly. Adrenal glands: Normal. No mass. Kidneys and ureters: Normal. No hydronephrosis. Stomach and bowel: Diverticulosis of the colon. No evidence of acute diverticulitis. Bowel wall thickening involving right colon may reflect portal colopathy. Appendix: No evidence of appendicitis. Intraperitoneal space: Moderate ascites. Vasculature: Portal venous hypertension with recanalized paraumbilical vein. Atherosclerotic disease of the abdominal aorta. Mild dilatation of distal abdominal aorta at the level of the iliac bifurcation measuring up to 2.6 cm. Lymph nodes: Unremarkable. No enlarged lymph nodes. Urinary bladder: Unremarkable as visualized. Reproductive: Multiple uterine fibroids. Simple 1.7 cm left ovarian cyst. Bones/joints: Osteopenia. Chronic appearing anterior wedge compression deformity of L1. Facet arthropathy in the lower lumbar spine. Soft tissues: Fat containing umbilical hernia. Skin induration subcutaneous fat stranding along the ventral abdominal wall. IMPRESSION: Hepatomegaly and cirrhosis. Moderate ascites. Portal venous hypertension. Atherosclerotic disease of the abdominal aorta. Mild dilatation of distal abdominal aorta at the level of the iliac bifurcation measuring up to 2.6 cm. Uterine fibroids. Diverticulosis of the colon. No evidence of acute diverticulitis. Bowel wall thickening involving right colon may reflect portal colopathy. Distended gallbladder. Electronically signed by: Angel Huynh On 07/06/2021 01:31:30 AM
[2021-07-06] MEDS: PIPERACILLIN/TAZOBACTAM SOD 4.5 GM in D5W MINI-BAG PLUS 50 ML IV SCH ×4 (03:12→20:14)
[2021-07-06 05:36] LABS: BASO # 0.1 10^3/uL (0.0-0.2); BASO % 0.4 % (0.0-1.0); EOS # 0.2 10^3/uL (0.0-0.5); EOS % 1.7 % (0.0-3.0); HEMATOCRIT 27.9 % (36.0-47.0); HEMOGLOBIN 9.7 g/dl (12.0-15.5); LYMPH # 1.5 10^3/uL (1.5-5.0); LYMPH % 10.7 % (24.0-44.0); MEAN CORPUSCULAR HEMOGLOBIN 32.7 pg (27.0-33.0); MEAN CORPUSCULAR HGB CONC 34.8 g/dl (32.0-36.5); MEAN CORPUSCULAR VOLUME 93.9 fl (80.0-96.0); MONO # 1.1 10^3/uL (0.0-0.8); NEUTROPHILS # 10.9 10^3/uL (1.5-8.5); NEUTROPHILS % 78.5 % (36.0-66.0); PLATELET COUNT, AUTOMATED 294 10^3/uL (150-450); RED BLOOD COUNT 2.97 10^6/uL (4.00-5.40); WHITE BLOOD COUNT 13.9 10^3/uL (4.0-10.0)
[2021-07-06 06:05] LABS: ALBUMIN 1.3 GM/DL (3.2-5.2); ALT/SGPT 53 U/L (12-78); BILIRUBIN,TOTAL 2.3 MG/DL (0.2-1.0); BLOOD UREA NITROGEN 11 MG/DL (7-18); CALCIUM LEVEL 6.7 MG/DL (8.8-10.2); CARBON DIOXIDE LEVEL 19 MEQ/L (21-32); CHLORIDE LEVEL 106 MEQ/L (98-107); CREATININE FOR GFR 0.87 MG/DL (0.55-1.30); GLOMERULAR FILTRATION RATE > 60.0 (>45); GLUCOSE, FASTING 123 MG/DL (70-100); POTASSIUM SERUM 3.7 MEQ/L (3.5-5.1); SODIUM LEVEL 136 MEQ/L (136-145)
--- NOTE | 2021-07-06 07:58 | ECGEPIP ---
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
[2021-07-06 10:45] LABS: INR 1.44; PROTHROMBIN TIME 17.9 SECONDS (12.7-14.5)
[2021-07-06] MEDS: FERROUS SULFATE 325MG TAB PO SCH (12:21)
[2021-07-06] MEDS: CitaloPRAM (CeleXA) 20 MG TAB PO SCH (12:21)
--- NOTE | 2021-07-06 12:26 | REP ---
INDICATION: distended gallbladder. COMPARISON: None TECHNIQUE: Real-time sonographic evaluation of the right upper quadrant with Doppler FINDINGS: Multiple ultrasonographic images of the liver show diffuse increased echoes throughout the hepatic parenchyma without evidence of a mass or ductal dilatation. The common bile duct was not visualized.. Multiple ultrasonographic images of the gallbladder show the gallbladder to be enlarged with shifting echogenic material within the gallbladder lumen without casting acoustic shadows.. There is no pericholecystic edema. Images of the pancreatic region show no gross abnormality. There is free fluid in the abdomen. The imaged portion of the right kidney is unremarkable. IMPRESSION: 1. Enlarged gallbladder with a large amount of sludge within. 2. Coarsened hepatic echo-pattern with diffuse increased echoes difficult to penetrate with the ultrasonographic beam consistent with diffuse fatty infiltration. 3. Ascites. Accredited by the [employer] in General Ultrasound. <Electronically signed by Jagdish Vo > 07/06/21 0287
[2021-07-06] MEDS ORDERED: ALBUTEROL SULFATE 2.5 MG/0.5 ML INH NEB SOLN NEB PRN (12:30)
[2021-07-06] MEDS: busPIRone 10 MG TAB PO SCH ×2 (13:09→20:14)
--- NOTE | 2021-07-06 14:17 | ECGEPIP ---
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
[2021-07-06 15:38] LABS: APPEARANCE, BODY FLUID CLEAR (CLEAR); ASCITES FL COLOR YELLOW (COLORLESS); SOURCE, BODY FLUID ASCITES
[2021-07-06 16:12] LABS: SOURCE, BODY FLUID ALBUMIN ASCITES; SOURCE, BODY FLUID GLUCOSE ASCITES; SOURCE, BODY FLUID TOT PROTEIN ASCITES
--- NOTE | 2021-07-06 16:34 | REP ---
INDICATION: ASCITES The patient has a history of ascites COMPARISON: None. TECHNIQUE: The procedure was performed by MARCO Ryan, under the direct supervision of Dr. Romano The risks and benefits of the procedure were explained to the patient and an informed consent was obtained both verbally and written. Directly prior to the start of the procedure a formal time-out was completed in the procedure room. The largest pocket of fluid was localized in the right lower quadrant using ultrasound guidance. The skin was prepped and draped in a sterile fashion. Ten ML of 1% lidocaine 10 mg/ml was used as a local anesthetic. An 8-Chadian multi side-hole catheter was inserted using trocar technique. FINDINGS: The largest pocket of fluid was localized in the right lower quadrant using ultrasound guidance. Once the catheter was then placed 2450 mL of clear yellow fluid was aspirated. This was sent to the lab for further evaluation, results pending. The patient tolerated the procedure well and there were no immediate complications. After the appropriate amount of monitored convalescence, the patient was discharged from the department. IMPRESSION: Technically successful paracentesis yielding 2450 mL of clear yellow fluid. <Electronically signed by Gwen Gayle > 07/06/21 1511 <Electronically signed by Marlon Romano > 07/06/21 1630
[2021-07-06] MEDS: MIRTAZAPINE 15 MG TAB PO SCH (20:14)
[2021-07-07] VITALS: BP 80/58
[2021-07-07] MEDS: PIPERACILLIN/TAZOBACTAM SOD 4.5 GM in D5W MINI-BAG PLUS 50 ML IV SCH ×4 (02:07→20:31)
[2021-07-07 04:00] VITALS: BP 90/54
[2021-07-07 08:00] VITALS: BP 91/62
[2021-07-07 08:26] LABS: BASO # 0.1 10^3/uL (0.0-0.2); BASO % 0.8 % (0.0-1.0); EOS # 0.3 10^3/uL (0.0-0.5); EOS % 1.8 % (0.0-3.0); HEMATOCRIT 30.4 % (36.0-47.0); HEMOGLOBIN 10.4 g/dl (12.0-15.5); LYMPH # 2.9 10^3/uL (1.5-5.0); LYMPH % 16.9 % (24.0-44.0); MEAN CORPUSCULAR HEMOGLOBIN 32.1 pg (27.0-33.0); MEAN CORPUSCULAR HGB CONC 34.2 g/dl (32.0-36.5); MEAN CORPUSCULAR VOLUME 93.8 fl (80.0-96.0); MONO # 1.1 10^3/uL (0.0-0.8); MONO % 6.4 % (2.0-8.0); NEUTROPHILS # 12.4 10^3/uL (1.5-8.5); NEUTROPHILS % 73.4 % (36.0-66.0); PLATELET COUNT, AUTOMATED 364 10^3/uL (150-450); RED BLOOD COUNT 3.24 10^6/uL (4.00-5.40); WHITE BLOOD COUNT 16.9 10^3/uL (4.0-10.0)
[2021-07-07] MEDS: FERROUS SULFATE 325MG TAB PO SCH (08:43)
[2021-07-07] MEDS: busPIRone 10 MG TAB PO SCH ×2 (08:43→20:31)
[2021-07-07] MEDS: CitaloPRAM (CeleXA) 20 MG TAB PO SCH (08:43)
[2021-07-07 08:59] LABS: ALT/SGPT 56 U/L (12-78); BILIRUBIN,TOTAL 2.7 MG/DL (0.2-1.0); BLOOD UREA NITROGEN 8 MG/DL (7-18); CALCIUM LEVEL 7.5 MG/DL (8.8-10.2); CARBON DIOXIDE LEVEL 20 MEQ/L (21-32); CHLORIDE LEVEL 108 MEQ/L (98-107); CREATININE FOR GFR 0.72 MG/DL (0.55-1.30); GLOMERULAR FILTRATION RATE > 60.0 (>45); GLUCOSE, FASTING 111 MG/DL (70-100); POTASSIUM SERUM 3.1 MEQ/L (3.5-5.1); SODIUM LEVEL 136 MEQ/L (136-145); TOTAL PROTEIN 5.6 GM/DL (6.4-8.2)
[2021-07-07] MEDS ORDERED: POTASSIUM CHLORIDE 10MEQ SR TABLET PO ONE (09:25)
--- NOTE | 2021-07-07 10:50 | IPNPDOC ---
Text Note Date of Service The patient was seen on 07/07/21. NOTE Subjective: Patient seen and examined at bedside. No acute overnight events reported. Patient voices no new medical complaints this morning. Objective: Vital Signs: reviewed General: NAD, lying comfortably in bed HEENT: NC/AT, EOMI Neck: supple, no masses Chest: lungs CTA B/L Heart: +S1S2, RRR Abd: soft, NT, distended, +BS Ext: no edema Skin: no rashes Neuro: no gross focal deficits Psych: AAOx3 A/P: 71F with a PMHx of etoh use, liver cirrhosis, portal HTN, presented to ER, after being told by her GI (Dr. Andres) of her abnormal lab work. On arrival found to have hypokalemia. EKG showed prolonged QTC to 737. Per report, a paracentesis has been ordered for patient. #Prolonged QTc - improving - repeat ECG today - Likely 2/2 hypokalemia. Replace K+. Avoid QTc prolonging medications #leukocytosis - zosyn day #2 #Hypokalemia - improving - continue to follow and replete as needed #Ascites - s/p paracentesis - fluid analysis - no SBP - possibly 2/2 cirrhosis in context of etoh use disorder - s/p albumin #Elevated bilirubin - liver US shows fatty liver - no RUQ pain. #Colonic polyps: last colonoscopy on 06/04/21. 5 polyps in transverse, ascending colon and cecum. 3 polyps at splenic flexure. Path showing tubular adenoma. Patient needs repeat colonoscopy 3 months after. Being followed by Dr. Andres. #AAA dilatation: 2.6 cm in diameter. Surveillance as outpatient Dispo: pending clinical improvement. VS,Fishbone, I+O VS, Fishbone, I+O Laboratory Tests 07/07/21 08:03 Vital Signs Date Time Temp Pulse Resp B/P (MAP) Pulse Ox O2 Delivery O2 Flow Rate FiO2 07/07/21 08:00 97.0 98 18 91/62 (72) 96 Room Air I&O- Last 24 Hours up to 6 AM 07/07/21 06:00 Intake Total 250.0 ml Output Total 200 ml Balance 50.0 ml ABHINAV ROUSSEAU MD Jul 07, 2021 10:50
--- NOTE | 2021-07-07 11:52 | ECGEPIP ---
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
[2021-07-07 12:00] VITALS: BP 87/57
[2021-07-07] MEDS: NICOTINE 21MG/24HR 1 EA TRANSDERMAL TD SCH (15:10)
[2021-07-07 16:00] VITALS: BP 95/50
[2021-07-07 20:00] VITALS: BP 94/66
[2021-07-07] MEDS: MIRTAZAPINE 15 MG TAB PO SCH (20:31)
[2021-07-08] VITALS: BP 106/60
[2021-07-08] MEDS: PIPERACILLIN/TAZOBACTAM SOD 4.5 GM in D5W MINI-BAG PLUS 50 ML IV SCH ×4 (01:16→23:10)
[2021-07-08 04:00] VITALS: BP 106/55
[2021-07-08 06:02] LABS: BASO # 0.1 10^3/uL (0.0-0.2); BASO % 0.7 % (0.0-1.0); EOS # 0.3 10^3/uL (0.0-0.5); EOS % 2.8 % (0.0-3.0); HEMATOCRIT 27.1 % (36.0-47.0); HEMOGLOBIN 9.3 g/dl (12.0-15.5); LYMPH # 1.6 10^3/uL (1.5-5.0); LYMPH % 13.9 % (24.0-44.0); MEAN CORPUSCULAR HEMOGLOBIN 32.7 pg (27.0-33.0); MEAN CORPUSCULAR HGB CONC 34.3 g/dl (32.0-36.5); MEAN CORPUSCULAR VOLUME 95.4 fl (80.0-96.0); MONO % 8.5 % (2.0-8.0); NEUTROPHILS # 8.7 10^3/uL (1.5-8.5); NEUTROPHILS % 73.6 % (36.0-66.0); PLATELET COUNT, AUTOMATED 276 10^3/uL (150-450); RED BLOOD COUNT 2.84 10^6/uL (4.00-5.40); WHITE BLOOD COUNT 11.8 10^3/uL (4.0-10.0)
[2021-07-08 06:42] LABS: ALBUMIN 1.7 GM/DL (3.2-5.2); ALT/SGPT 46 U/L (12-78); BILIRUBIN,DIRECT 1.3 MG/DL (0.0-0.2); BILIRUBIN,TOTAL 2.2 MG/DL (0.2-1.0); BLOOD UREA NITROGEN 8 MG/DL (7-18); CALCIUM LEVEL 7.5 MG/DL (8.8-10.2); CARBON DIOXIDE LEVEL 20 MEQ/L (21-32); CHLORIDE LEVEL 109 MEQ/L (98-107); CREATININE FOR GFR 0.62 MG/DL (0.55-1.30); GLOMERULAR FILTRATION RATE > 60.0 (>45); GLUCOSE, FASTING 114 MG/DL (70-100); POTASSIUM SERUM 2.8 MEQ/L (3.5-5.1); SODIUM LEVEL 140 MEQ/L (136-145); TOTAL PROTEIN 4.8 GM/DL (6.4-8.2)
[2021-07-08] MEDS ORDERED: POTASSIUM CHLORIDE 10MEQ SR TABLET PO ONE (06:55)
[2021-07-08] MEDS ORDERED: KCL 10MEQ/100ML SWI (KRUN) 10 MEQ in IV 1 EA IV SCH (07:00)
[2021-07-08 07:34] LABS: MAGNESIUM LEVEL 1.5 MG/DL (1.8-2.4)
[2021-07-08] MEDS: NICOTINE 21MG/24HR 1 EA TRANSDERMAL TD SCH (07:43)
[2021-07-08] MEDS: busPIRone 10 MG TAB PO SCH ×2 (07:44→23:10)
[2021-07-08] MEDS: FERROUS SULFATE 325MG TAB PO SCH (07:44)
[2021-07-08] MEDS: CitaloPRAM (CeleXA) 20 MG TAB PO SCH (07:44)
[2021-07-08 08:00] VITALS: BP 105/71
[2021-07-08] MEDS: MAG SULF 1GM/100ML (MAG RUN) 1 GM in IV 1 EA IV SCH ×2 (09:15→10:46)
--- NOTE | 2021-07-08 09:55 | IPNPDOC ---
Text Note Date of Service The patient was seen on 07/08/21. NOTE Subjective: Patient seen and examined at bedside. No acute overnight events reported. Patient voices no new medical complaints this morning other than some burning at her IV site where she is receiving parenteral potassium supplementation. She is anxious to return home. Objective: Vital Signs: reviewed General: NAD, lying comfortably in bed HEENT: NC/AT, EOMI Neck: supple, no masses Chest: lungs CTA B/L Heart: +S1S2, RRR Abd: soft, NT, distended, +BS Ext: no edema Skin: no rashes Neuro: no gross focal deficits Psych: AAOx3 A/P: 71F with a PMHx of etoh use, liver cirrhosis, portal HTN, presented to ER, after being told by her GI (Dr. Andres) of her abnormal lab work. On arrival found to have hypokalemia. EKG showed prolonged QTC to 737. Per report, a paracentesis has been ordered for patient. #Prolonged QTc - improving - Likely 2/2 hypokalemia. Replace K+. Avoid QTc prolonging medications #leukocytosis - improving - zosyn day #3 #Hypokalemia/hypomagnesemia - continue to follow and replete as needed #Ascites - s/p paracentesis - fluid analysis - no SBP - possibly 2/2 cirrhosis in context of etoh use disorder - s/p albumin #transaminitis/Elevated bilirubin - improving - liver US shows fatty liver - no RUQ pain. #Colonic polyps: last colonoscopy on 06/04/21. 5 polyps in transverse, ascending colon and cecum. 3 polyps at splenic flexure. Path showing tubular adenoma. Patient needs repeat colonoscopy 3 months after. Being followed by Dr. Edgar owens. #AAA dilatation: 2.6 cm in diameter. Surveillance as outpatient Dispo: pending clinical improvement; risks of leaving AMA explained at length at bedside - she voices full understanding of risks VS,Fishbone, I+O VS, Fishbone, I+O Laboratory Tests 07/08/21 05:37 Vital Signs Date Time Temp Pulse Resp B/P (MAP) Pulse Ox O2 Delivery O2 Flow Rate FiO2 07/08/21 08:00 98.0 94 18 105/71 (82) 96 Room Air I&O- Last 24 Hours up to 6 AM 07/08/21 06:00 Intake Total 1200 ml Output Total 0 ml Balance 1200 ml ABHINAV ROUSSEAU MD Jul 08, 2021 09:55
[2021-07-08 12:00] VITALS: BP 111/63
[2021-07-08 13:17] LABS: BLOOD UREA NITROGEN 7 MG/DL (7-18); CALCIUM LEVEL 7.8 MG/DL (8.8-10.2); CARBON DIOXIDE LEVEL 20 MEQ/L (21-32); CHLORIDE LEVEL 108 MEQ/L (98-107); CREATININE FOR GFR 0.64 MG/DL (0.55-1.30); GLOMERULAR FILTRATION RATE > 60.0 (>45); GLUCOSE, FASTING 113 MG/DL (70-100); POTASSIUM SERUM 3.4 MEQ/L (3.5-5.1); SODIUM LEVEL 138 MEQ/L (136-145)
[2021-07-08 16:00] VITALS: BP 108/57
[2021-07-08 16:15] LABS: BLOOD UREA NITROGEN 7 MG/DL (7-18); CALCIUM LEVEL 7.9 MG/DL (8.8-10.2); CARBON DIOXIDE LEVEL 17 MEQ/L (21-32); CHLORIDE LEVEL 108 MEQ/L (98-107); CREATININE FOR GFR 0.82 MG/DL (0.55-1.30); GLOMERULAR FILTRATION RATE > 60.0 (>45); GLUCOSE, FASTING 106 MG/DL (70-100); MAGNESIUM LEVEL 2.2 MG/DL (1.8-2.4); POTASSIUM SERUM 4.2 MEQ/L (3.5-5.1); SODIUM LEVEL 137 MEQ/L (136-145)
[2021-07-08 20:00] VITALS: BP 90/54
[2021-07-08] MEDS: MIRTAZAPINE 15 MG TAB PO SCH (23:10)
[2021-07-09 01:05] VITALS: BP 114/75
[2021-07-09] MEDS: PIPERACILLIN/TAZOBACTAM SOD 4.5 GM in D5W MINI-BAG PLUS 50 ML IV SCH (05:24)
[2021-07-09 06:00] VITALS: BP 118/76
[2021-07-09 07:59] LABS: BASO # 0.1 10^3/uL (0.0-0.2); BASO % 0.7 % (0.0-1.0); EOS # 0.3 10^3/uL (0.0-0.5); HEMATOCRIT 30.5 % (36.0-47.0); HEMOGLOBIN 9.9 g/dl (12.0-15.5); LYMPH # 2.4 10^3/uL (1.5-5.0); LYMPH % 18.2 % (24.0-44.0); MEAN CORPUSCULAR HEMOGLOBIN 32.4 pg (27.0-33.0); MEAN CORPUSCULAR HGB CONC 32.5 g/dl (32.0-36.5); MEAN CORPUSCULAR VOLUME 99.7 fl (80.0-96.0); MONO # 1.2 10^3/uL (0.0-0.8); NEUTROPHILS # 9.1 10^3/uL (1.5-8.5); NEUTROPHILS % 69.7 % (36.0-66.0); PLATELET COUNT, AUTOMATED 275 10^3/uL (150-450); RED BLOOD COUNT 3.06 10^6/uL (4.00-5.40); WHITE BLOOD COUNT 13.1 10^3/uL (4.0-10.0)
[2021-07-09] MEDS: busPIRone 10 MG TAB PO SCH (08:24)
[2021-07-09] MEDS: FERROUS SULFATE 325MG TAB PO SCH (08:24)
[2021-07-09] MEDS: CitaloPRAM (CeleXA) 20 MG TAB PO SCH (08:24)
[2021-07-09] MEDS: NICOTINE 21MG/24HR 1 EA TRANSDERMAL TD SCH (08:25)
[2021-07-09 08:40] LABS: ALBUMIN 1.8 GM/DL (3.2-5.2); ALT/SGPT 49 U/L (12-78); BILIRUBIN,TOTAL 2.3 MG/DL (0.2-1.0); BLOOD UREA NITROGEN 5 MG/DL (7-18); CARBON DIOXIDE LEVEL 20 MEQ/L (21-32); CHLORIDE LEVEL 111 MEQ/L (98-107); CREATININE FOR GFR 0.58 MG/DL (0.55-1.30); GLOMERULAR FILTRATION RATE > 60.0 (>45); GLUCOSE, FASTING 103 MG/DL (70-100); MAGNESIUM LEVEL 1.9 MG/DL (1.8-2.4); POTASSIUM SERUM 3.6 MEQ/L (3.5-5.1); SODIUM LEVEL 139 MEQ/L (136-145); TOTAL PROTEIN 5.5 GM/DL (6.4-8.2)
[2021-07-09] MEDS ORDERED: AUGMENTIN 875 MG TAB PO SCH (09:00)
[2021-07-09] MEDS ORDERED: THIA100TA PO (09:02)
[2021-07-09] MEDS ORDERED: FOLI1TAB11 PO (09:02)
[2021-07-09] MEDS ORDERED: NICO21PAT TD (09:02)
[2021-07-09] MEDS ORDERED: AMOX875T2 PO (09:02)
--- NOTE | 2021-07-09 09:11 | DS.PDOC ---
Discharge Summary General Date of Admission Jul 06, 2021 at 01:17 Date of Discharge 07/09/21 Discharge Summary PROCEDURES PERFORMED DURING STAY: paracentesis DISCHARGE DIAGNOSES: #Prolonged QTc #leukocytosis #Hypokalemia/hypomagnesemia #Ascites #transaminitis/Elevated bilirubin #Colonic polyps #AAA dilatation #fatty liver disease #nicotine/alcohol abuse COMPLICATIONS/CHIEF COMPLAINT: Alcoholic Cirrhosis Of Liver W/Ascites;Hypomagnesm. HISTORY OF PRESENT ILLNESS: 71 yo F with a PMHx of etoh use disorder, suspected liver cirrhosis, ascites, depression, presented to ER after found to have hypokalemia on blood work today, from her GI office. She is being followed by Dr. Andres for ascites, as well as findings of numerous polyps on colonoscopy in 05/2021, pathology showing tubular adenoma. Per report, Dr. Andres has ordered a paracentesis for the morning. At this stage I am uncertain whether she will be consulted on by GI. Patient found to be hypotensive in the ER, with blood pressures around 90 systolic which she reports as chronic. Further, EKG showed significant QTc prolongation to 737. K 2.3. Mg 1.8. Patient will be admitted to hospitalist service for managemnt of hypokalemia and workup of ascites. HOSPITAL COURSE: 71F with a PMHx of etoh use, liver cirrhosis, portal HTN, presented to ER, after being told by her GI (Dr. Andres) of her abnormal lab work. On arrival found to have hypokalemia. EKG showed prolonged QTC to 737. Patient underwent paracentesis, with no evidence of SBP. Her QTc improved significantly. Her electrolyte abnormalities were corrected. She was very anxious to leave, and was discharged today with outpatient follow up. #Prolonged QTc - improved during hospital stay - Likely 2/2 hypokalemia #Hypokalemia/hypomagnesemia - continue to follow and replete as needed #Ascites - s/p paracentesis - fluid analysis - no SBP - possibly 2/2 cirrhosis in context of etoh use disorder - s/p albumin #transaminitis/Elevated bilirubin - liver US shows fatty liver - no RUQ pain. #Colonic polyps: last colonoscopy on 06/04/21. 5 polyps in transverse, ascending colon and cecum. 3 polyps at splenic flexure. Path showing tubular adenoma. Patient needs repeat colonoscopy 3 months after. Being followed by Dr. Andres. #AAA dilatation: 2.6 cm in diameter. Surveillance as outpatient DISCHARGE MEDICATIONS: Please see below. ALLERGIES: Please see below. PHYSICAL EXAMINATION ON DISCHARGE: Vital Signs: reviewed General: NAD, sitting comfortably at edge of bed HEENT: NC/AT, EOMI Neck: supple, no masses Chest: lungs CTA B/L Heart: +S1S2, RRR Abd: soft, NT, distended, +BS Ext: no edema Skin: no rashes Neuro: no gross focal deficits Psych: AAOx3 LABORATORY DATA: Please see below. ACTIVITY: [As tolerated]. DISCHARGE INSTRUCTIONS: 1. PCP in 3-5 days 2. Follow up liver studies with GI or with PCP as directed. 3. Stop smoking, abstain from alcohol use. 4. Follow up AAA dilatation with vascular or with PCP as directed. DISCHARGE CONDITION: [Stable]. TIME SPENT ON DISCHARGE: 35 minutes. Vital Signs/I&Os Vital Signs Date Time Temp Pulse Resp B/P (MAP) Pulse Ox O2 Delivery O2 Flow Rate FiO2 07/09/21 06:00 98.2 104 18 118/76 (90) 96 Room Air I&O- Last 24 Hours up to 6 AM 07/09/21 06:00 Intake Total 1350 ml Output Total 0 ml Balance 1350 ml Laboratory Data Labs 24H Laboratory Tests 2 07/08/21 12:44: Anion Gap 10, Glomerular Filtration Rate > 60.0, Calcium Level 7.8L 07/08/21 15:37: Anion Gap 12, Glomerular Filtration Rate > 60.0, Calcium Level 7.9L, Magnesium Level 2.2 07/09/21 07:42: Anion Gap 8, Glomerular Filtration Rate > 60.0, Calcium Level 8.0L, Magnesium Level 1.9, Immature Granulocyte % (Auto) 0.4, Neutrophils (%) (Auto) 69.7H, Lymp hocytes (%) (Auto) 18.2L, Monocytes (%) (Auto) 9.0H, Eosinophils (%) (Auto) 2.0, Basophils (%) (Auto) 0.7, Neutrophils # (Auto) 9.1H, Lymphocytes # (Auto) 2.4, Monocytes # (Auto) 1.2H, Eosinophils # (Auto) 0.3, Basophils # (Auto) 0.1, Nucleated Red Blood Cells % (auto) 0.0, Total Bilirubin 2.3H, Aspartate Amino Transf (AST/SGOT) 78H, Alanine Aminotransferase (ALT/SGPT) 49, Alkaline Phosphatase 209H, Total Protein 5.5L, Albumin 1.8L, Albumin/Globulin Ratio 0.5L CBC/BMP Laboratory Tests 07/08/21 12:44 07/08/21 15:37 07/09/21 07:42 Microbiology Microbiology 07/07/21 Blood Culture - Preliminary, Resulted No growth after 24 hours . All specim... 07/07/21 Blood Culture - Preliminary, Resulted No growth after 24 hours . All specim... 07/06/21 Acid Fast Stain, Received Pending 07/06/21 Mycobacterial Culture, Received Pending 07/06/21 Fungal Smear, Received Pending 07/06/21 Fungal Culture, Received Pending 07/06/21 Gram Stain - Final, Complete 07/06/21 Body Fluid Culture - Final, Complete Discharge Medications Scheduled Amoxicillin/Potassium Clav (Amox-Clav 875-125 mg Tablet) 1 Each Tablet, 875 MG PO BID Buspirone HCl (Buspirone HCl) 10 Mg Tablet, 10 MG PO BID, (Reported) Citalopram Hydrobromide (Citalopram HBr) 20 Mg Tablet, 20 MG PO DAILY, (Reported) Ferrous Sulfate (Ferrous Sulfate) 325 Mg Tablet, 325 MG PO DAILY Folic Acid (Folic Acid) 1 Mg Tablet, 1 TAB PO DAILY Mirtazapine (Remeron) 15 Mg Tablet, 15 MG PO QHS, (Reported) Nicotine (Nicotine Patch) 21 Mg Patch.td24, 1 PATCH TD DAILY Thiamine Hcl (Vitamin B-1) 100 Mg Tablet, 1 TAB PO DAILY Allergies Coded Allergies: milk (Verified Adverse Reaction, Mild, GI upset, 06/12/21) ABHINAV ROUSSEAU MD Jul 09, 2021 09:11
== END 2021-07-09 12:25 | disposition home or self-care (01) | DRG 641 ==
LOC: M ED 20:04 → M ED INP 07-06 01:17 → ENRESERV 07-06 01:38 → M PCU 07-06 02:45 → M MS5PR 07-09 01:17
PROVIDERS: ADMIT Family Medicine; ATTEND Internal Medicine
PROC: 0W9F3ZZ Drainage of Abdominal Wall, Percutaneous Approach (ICD-10-PCS; principal; 2021-07-06 14:30)
DX: E87.6 Hypokalemia (principal); K76.6 Portal hypertension; R94.31 Abnormal electrocardiogram [ECG] [EKG]; K70.31 Alcoholic cirrhosis of liver with ascites; E83.42 Hypomagnesemia; K76.0 Fatty (change of) liver, not elsewhere classified; F17.200 Nicotine dependence, unspecified, uncomplicated; I71.4 Abdominal aortic aneurysm, without rupture; Z79.899 Other long term (current) drug therapy; Z91.011 Allergy to milk products; Z98.41 Cataract extraction status, right eye; D72.829 Elevated white blood cell count, unspecified

== ENCOUNTER → 2021-07-05 | Outpatient (CLI) | payer MEDICARE, MEDICAID ==
[~2021-07-05] MED LIST changes: +ALDA25TA2 PO; +AMOX875T2 PO; +FERR1TAB8 PO; +FOLI1TAB11 PO; +FURO20TA2 PO; +LOPE2CA PO; +META28.32 PO; +MIRA3350 PO; +THIA100TA PO
[2021-07-05 16:29] LABS: BASO # 0.1 10^3/uL (0.0-0.2); BASO % 0.4 % (0.0-1.0); EOS # 0.2 10^3/uL (0.0-0.5); HEMATOCRIT 32.4 % (36.0-47.0); HEMOGLOBIN 11.1 g/dl (12.0-15.5); LYMPH # 2.8 10^3/uL (1.5-5.0); LYMPH % 15.1 % (24.0-44.0); MEAN CORPUSCULAR HEMOGLOBIN 32.3 pg (27.0-33.0); MEAN CORPUSCULAR HGB CONC 34.3 g/dl (32.0-36.5); MEAN CORPUSCULAR VOLUME 94.2 fl (80.0-96.0); MONO # 1.4 10^3/uL (0.0-0.8); MONO % 7.8 % (2.0-8.0); NEUTROPHILS # 13.7 10^3/uL (1.5-8.5); NEUTROPHILS % 74.9 % (36.0-66.0); PLATELET COUNT, AUTOMATED 387 10^3/uL (150-450); RED BLOOD COUNT 3.44 10^6/uL (4.00-5.40); WHITE BLOOD COUNT 18.4 10^3/uL (4.0-10.0)
[2021-07-05 17:26] LABS: ALBUMIN 2.1 GM/DL (3.2-5.2); BILIRUBIN,DIRECT 1.5 MG/DL (0.0-0.2); BILIRUBIN,TOTAL 2.5 MG/DL (0.2-1.0); CALCIUM LEVEL 7.7 MG/DL (8.8-10.2); CREATININE FOR GFR 1.07 MG/DL (0.55-1.30); GLOMERULAR FILTRATION RATE 54.1 (>45); POTASSIUM SERUM 2.7 MEQ/L (3.5-5.1); TOTAL PROTEIN 5.8 GM/DL (6.4-8.2)
[2021-07-05 17:27] LABS: INR 1.33; PROTHROMBIN TIME 16.9 SECONDS (12.7-14.5)
[2021-07-05 17:28] LABS: PARTIAL THROMBOPLASTIN TIME 28.6 SECONDS (25.9-37.0)
== END ==
LOC: M LAB 15:22
PROVIDERS: ATTEND Internal Medicine Gastroenterology
DX: K74.60 Unspecified cirrhosis of liver (principal)

== ENCOUNTER → 2021-07-13 | Outpatient (CLI) | payer MEDICARE, MEDICAID ==
[~2021-07-13] MED LIST changes: +AMOX875T2 PO; +B-1100TA2 PO; +FOLI1TAB11 PO; +NICO1DIS12 TD; +THIA100TA PO
== END ==
LOC: M PLALAB 12:36
PROVIDERS: ATTEND Student in an Organized Health Care Education/Training Program
DX: E87.8 Other disorders of electrolyte and fluid balance, not elsewhere classified (principal); E83.51 Hypocalcemia

== ENCOUNTER 2021-07-14 16:00 | Inpatient (IN) | payer MEDICARE, MEDICAID ==
[~2021-07-14] VITALS: Ht 160 cm; Wt 66.7 kg
[~2021-07-14 16:00] MED LIST changes: -B-1100TA2 PO; -NICO1DIS12 TD
[2021-07-14] MEDS ORDERED: POTASSIUM CHLORIDE 10MEQ SR TABLET PO ONE (17:05)
[2021-07-14] MEDS ORDERED: KCL 10MEQ/100ML SWI (KRUN) 10 MEQ in IV 1 EA IV ONE (17:10)
[2021-07-14] MEDS ORDERED: METOCLOPRAMIDE INJ 10MG/2ML VIAL (J2765 PER 1) IV ONE (17:25)
[2021-07-14 17:36] LABS: ETHYL ALCOHOL (ETHANOL) 0.003 % (0.000-0.010)
[2021-07-14] MEDS ORDERED: ACETAMINOPHEN TAB 650MG DOSE (2X325MG) PO PRN (17:40)
[2021-07-14] MEDS ORDERED: NICO1DIS12 TD (18:08)
[2021-07-14] MEDS ORDERED: AMOX875T2 PO (18:08)
[2021-07-14] MEDS ORDERED: B-1100TA2 PO (18:08)
[2021-07-14] MEDS ORDERED: FERR1TAB8 PO (18:08)
[2021-07-14] MEDS ORDERED: HOME MED LIST COMPLETE! XX SCH (18:10)
[2021-07-14 18:40] LABS: RSV AMPLIFICATION NEGATIVE (NEGATIVE)
[2021-07-14] MEDS ORDERED: KCL 40MEQ in NS 1000ML 1,000 ML IV SCH (19:00)
[2021-07-14 19:07] VITALS: BP 115/65
[2021-07-14] MEDS: PANTOPRAZOLE 40MG TAB (PROTONIX) PO SCH (21:04)
[2021-07-14] MEDS: NICOTINE 21MG/24HR 1 EA TRANSDERMAL TD SCH (21:04)
[2021-07-14] MEDS: MAG SULF 1GM/100ML (MAG RUN) 1 GM in IV 1 EA IV SCH ×2 (21:20→22:33)
[2021-07-14] MEDS: HEPARIN SOD (PORCINE) 5000UNITS/ML 1ML VIAL/SYRINGE SC SCH (22:32)
[2021-07-15] VITALS (10 sets, daily range): BP systolic 95–107; BP diastolic 53–67
[2021-07-15 00:31] LABS: CALCIUM LEVEL 7.7 MG/DL (8.8-10.2); CREATININE FOR GFR 1.35 MG/DL (0.55-1.30); GLOMERULAR FILTRATION RATE 41.4 (>45); MAGNESIUM LEVEL 2.4 MG/DL (1.8-2.4); POTASSIUM SERUM 2.6 MEQ/L (3.5-5.1)
[2021-07-15] MEDS ORDERED: POTASSIUM CHLORIDE 10MEQ SR TABLET PO ONE (01:10)
[2021-07-15] MEDS: KCL 10MEQ/100ML SWI (KRUN) 10 MEQ in IV 1 EA IV SCH ×2 (01:39→03:05)
[2021-07-15 05:41] LABS: HEMATOCRIT 26.7 % (36.0-47.0); MEAN CORPUSCULAR HEMOGLOBIN 32.1 pg (27.0-33.0); MEAN CORPUSCULAR HGB CONC 33.7 g/dl (32.0-36.5); MEAN CORPUSCULAR VOLUME 95.4 fl (80.0-96.0); PLATELET COUNT, AUTOMATED 309 10^3/uL (150-450); WHITE BLOOD COUNT 13.2 10^3/uL (4.0-10.0)
[2021-07-15 06:10] LABS: ALBUMIN 1.7 GM/DL (3.2-5.2); BILIRUBIN,TOTAL 1.3 MG/DL (0.2-1.0); CALCIUM LEVEL 7.9 MG/DL (8.8-10.2); CREATININE FOR GFR 1.28 MG/DL (0.55-1.30); MAGNESIUM LEVEL 2.2 MG/DL (1.8-2.4); POTASSIUM SERUM 3.4 MEQ/L (3.5-5.1); TOTAL PROTEIN 4.9 GM/DL (6.4-8.2)
[2021-07-15] MEDS: HEPARIN SOD (PORCINE) 5000UNITS/ML 1ML VIAL/SYRINGE SC SCH ×3 (06:29→20:50)
[2021-07-15 07:16] LABS: APPEARANCE, URINE CLOUDY (CLEAR); BACTERIA, URINE AUTO 1+ (NEGATIVE); BILIRUBIN, URINE AUTO NEGATIVE (NEGATIVE); BLOOD, URINE BLOOD 3+ (NEGATIVE); COLOR, URINE AMBER (YELLOW); GLUCOSE, URINE (UA) AUTO NEGATIVE (NEGATIVE); KETONE, URINE AUTO TRACE mg/dL (NEGATIVE); LEUKOCYTE ESTERASE, URINE AUTO 2+ (NEGATIVE); MUCUS, URINE SMALL (NEGATIVE); NITRITE, URINE AUTO NEGATIVE (NEGATIVE); OSMOLALITY URINE 411 MOSM/KG (50-1400); PROTEIN, URINE AUTO 1+ mg/dL (NEGATIVE); RBC, URINE AUTO 18 /HPF (0-3); SPECIFIC GRAVITY URINE AUTO 1.016 (1.002-1.035); SQUAMOUS EPITHELIAL CELL UR AU 17 /HPF (0-6); WBC, URINE AUTO 26 /HPF (0-3)
[2021-07-15 07:41] LABS: POTASSIUM RANDOM URINE 14.6 MEQ/L; SODIUM,RANDOM URINE < 10 MEQ/L
[2021-07-15] MEDS: PANTOPRAZOLE 40MG TAB (PROTONIX) PO SCH (08:52)
[2021-07-15] MEDS: NICOTINE 21MG/24HR 1 EA TRANSDERMAL TD SCH (08:52)
[2021-07-15] MEDS: THIAMINE 100 MG TAB PO SCH (08:52)
[2021-07-15] MEDS: POTASSIUM CHLORIDE 10MEQ SR TABLET PO SCH ×2 (08:52→20:50)
[2021-07-15] MEDS ORDERED: POTASSIUM CHLORIDE 10MEQ SR TABLET PO SCH (09:00)
[2021-07-15 09:29] LABS: CLOSTRIDIUM DIFFICILE PCR NEGATIVE (NEGATIVE)
[2021-07-15 15:06] LABS: CALCIUM LEVEL 8.4 MG/DL (8.8-10.2); CREATININE FOR GFR 1.4 MG/DL (0.55-1.30); GLOMERULAR FILTRATION RATE 39.7 (>45); MAGNESIUM LEVEL 2.1 MG/DL (1.8-2.4); POTASSIUM SERUM 3.9 MEQ/L (3.5-5.1)
[2021-07-15] MEDS ORDERED: NS 1,000 ML IV SCH (16:00)
[2021-07-15 17:04] LABS: ABG BASE EXCESS -7.3 (-2.0-2.0); ABG HCO3 15.2 MEQ/L (22.0-26.0); ABG O2 SATURATION 96.3 % (95.0-99.0); ABG PARTIAL PRESSURE CO2 22.4 mmHg (35.0-45.0); ABG PARTIAL PRESSURE O2 85.8 mmHg (75.0-100.0); ABG STANDARD HCO3 18.5 MEQ/L (22.0-26.0); ABG TOTAL CO2 15.9 MEQ/L (23.0-31.0); ABG pH (ARTERIAL) 7.449 UNITS (7.350-7.450)
[2021-07-15] MEDS ORDERED: NS 500 ML IV ONE (17:20)
[2021-07-16] VITALS (14 sets, daily range): BP systolic 94–108; BP diastolic 50–62
[2021-07-16] MEDS: HEPARIN SOD (PORCINE) 5000UNITS/ML 1ML VIAL/SYRINGE SC SCH ×3 (05:22→21:09)
[2021-07-16 05:23] LABS: HEMATOCRIT 25.8 % (36.0-47.0); HEMOGLOBIN 8.4 g/dl (12.0-15.5); MEAN CORPUSCULAR HEMOGLOBIN 31.8 pg (27.0-33.0); MEAN CORPUSCULAR HGB CONC 32.6 g/dl (32.0-36.5); MEAN CORPUSCULAR VOLUME 97.7 fl (80.0-96.0); PLATELET COUNT, AUTOMATED 287 10^3/uL (150-450); RED BLOOD COUNT 2.64 10^6/uL (4.00-5.40); WHITE BLOOD COUNT 9.6 10^3/uL (4.0-10.0)
[2021-07-16 05:45] LABS: BILIRUBIN,TOTAL 1.3 MG/DL (0.2-1.0); CALCIUM LEVEL 7.6 MG/DL (8.8-10.2); CREATININE FOR GFR 1.17 MG/DL (0.55-1.30); GLOMERULAR FILTRATION RATE 48.8 (>45); MAGNESIUM LEVEL 1.9 MG/DL (1.8-2.4); POTASSIUM SERUM 3.3 MEQ/L (3.5-5.1); TOTAL PROTEIN 4.9 GM/DL (6.4-8.2)
[2021-07-16] MEDS: PANTOPRAZOLE 40MG TAB (PROTONIX) PO SCH (08:55)
[2021-07-16] MEDS: NICOTINE 21MG/24HR 1 EA TRANSDERMAL TD SCH (08:55)
[2021-07-16] MEDS: POTASSIUM CHLORIDE 10MEQ SR TABLET PO SCH ×2 (08:55→20:11)
[2021-07-16] MEDS: THIAMINE 100 MG TAB PO SCH (08:55)
[2021-07-16] MEDS: MIDODRINE 2.5 MG TAB PO SCH ×3 (08:55→16:53)
[2021-07-16 09:09] LABS: INR 1.34
[2021-07-17] VITALS: BP 97/55
[2021-07-17 03:00] VITALS: BP 86/51
[2021-07-17 04:00] VITALS: BP 84/54
[2021-07-17 05:30] LABS: HEMATOCRIT 27.2 % (36.0-47.0); HEMOGLOBIN 8.6 g/dl (12.0-15.5); MEAN CORPUSCULAR HEMOGLOBIN 32.1 pg (27.0-33.0); MEAN CORPUSCULAR HGB CONC 31.6 g/dl (32.0-36.5); MEAN CORPUSCULAR VOLUME 101.5 fl (80.0-96.0); PLATELET COUNT, AUTOMATED 261 10^3/uL (150-450); RED BLOOD COUNT 2.68 10^6/uL (4.00-5.40); WHITE BLOOD COUNT 8.6 10^3/uL (4.0-10.0)
[2021-07-17 05:49] LABS: ALBUMIN 2.4 GM/DL (3.2-5.2); ALT/SGPT 26 U/L (12-78); BILIRUBIN,TOTAL 1.4 MG/DL (0.2-1.0); BLOOD UREA NITROGEN 10 MG/DL (7-18); CALCIUM LEVEL 7.6 MG/DL (8.8-10.2); CARBON DIOXIDE LEVEL 17 MEQ/L (21-32); CHLORIDE LEVEL 117 MEQ/L (98-107); CREATININE FOR GFR 0.92 MG/DL (0.55-1.30); GLOMERULAR FILTRATION RATE > 60.0 (>45); GLUCOSE, FASTING 98 MG/DL (70-100); MAGNESIUM LEVEL 1.6 MG/DL (1.8-2.4); POTASSIUM SERUM 3.7 MEQ/L (3.5-5.1); SODIUM LEVEL 142 MEQ/L (136-145); TOTAL PROTEIN 4.9 GM/DL (6.4-8.2)
[2021-07-17] MEDS: HEPARIN SOD (PORCINE) 5000UNITS/ML 1ML VIAL/SYRINGE SC SCH ×2 (06:40→14:00)
[2021-07-17 08:00] VITALS: BP 95/55
[2021-07-17] MEDS: MIDODRINE 5 MG TAB PO SCH ×2 (08:44→12:16)
[2021-07-17] MEDS: NICOTINE 21MG/24HR 1 EA TRANSDERMAL TD SCH (08:44)
[2021-07-17] MEDS: THIAMINE 100 MG TAB PO SCH (08:44)
[2021-07-17] MEDS: POTASSIUM CHLORIDE 10MEQ SR TABLET PO SCH (08:44)
[2021-07-17] MEDS: PANTOPRAZOLE 40MG TAB (PROTONIX) PO SCH (08:44)
[2021-07-17] MEDS ORDERED: MAG SULF 1GM/100ML (MAG RUN) 1 GM in IV 1 EA IV ONE (09:00)
[2021-07-17] MEDS ORDERED: MAGNESIUM OXIDE 400MG TAB (MAG-OX) PO SCH (09:00)
[2021-07-17] MEDS ORDERED: POTA-136 PO (10:09)
[2021-07-17] MEDS ORDERED: LOPE2TAB12 PO (10:09)
[2021-07-17] MEDS ORDERED: MIDO5TA PO (10:09)
[2021-07-17 11:01] VITALS: BP 95/62
[2021-07-17 12:00] VITALS: BP 100/56
[2021-07-17 17:11] LABS: ALPHA 1 ANTITRYPSIN 197 mg/dL (101-187); ANTI-SMOOTH MUSCLE ANTIBODY 7 Units (0-19); ANTINUCLEAR ANTIBODIES DIRECT Negative (Negative)
== END 2021-07-17 12:48 | disposition home health service (06) | DRG 432 ==
LOC: M ED 16:00 → M ED INP 17:39 → ENRESERV 18:44 → M PCU 18:53
PROVIDERS: ADMIT Internal Medicine; ATTEND Internal Medicine
PROC: 0W9G3ZZ Drainage of Peritoneal Cavity, Percutaneous Approach (ICD-10-PCS; principal; 2021-07-16 16:00)
DX: K70.31 Alcoholic cirrhosis of liver with ascites (principal); K76.7 Hepatorenal syndrome; K76.6 Portal hypertension; E87.2 Acidosis; N17.9 Acute kidney failure, unspecified; E87.6 Hypokalemia; F17.210 Nicotine dependence, cigarettes, uncomplicated; F10.10 Alcohol abuse, uncomplicated; F41.9 Anxiety disorder, unspecified; F32.9 Major depressive disorder, single episode, unspecified; Z98.41 Cataract extraction status, right eye; D64.9 Anemia, unspecified; Z20.822 Contact with and (suspected) exposure to COVID-19; Z99.2 Dependence on renal dialysis; R74.01 Elevation of levels of liver transaminase levels; R94.31 Abnormal electrocardiogram [ECG] [EKG]; D72.829 Elevated white blood cell count, unspecified

== ENCOUNTER → 2021-07-14 | Outpatient (CLI) | payer MEDICARE, MEDICAID ==
[2021-07-14 09:59] LABS: BASO # 0.1 10^3/uL (0.0-0.2); BASO % 0.6 % (0.0-1.0); EOS # 0.2 10^3/uL (0.0-0.5); EOS % 1.1 % (0.0-3.0); HEMATOCRIT 31.2 % (36.0-47.0); HEMOGLOBIN 10.5 g/dl (12.0-15.5); LYMPH % 14.3 % (24.0-44.0); MEAN CORPUSCULAR HEMOGLOBIN 32.5 pg (27.0-33.0); MEAN CORPUSCULAR HGB CONC 33.7 g/dl (32.0-36.5); MEAN CORPUSCULAR VOLUME 96.6 fl (80.0-96.0); MONO % 6.7 % (2.0-8.0); NEUTROPHILS # 10.9 10^3/uL (1.5-8.5); NEUTROPHILS % 76.9 % (36.0-66.0); PLATELET COUNT, AUTOMATED 376 10^3/uL (150-450); RED BLOOD COUNT 3.23 10^6/uL (4.00-5.40); WHITE BLOOD COUNT 14.2 10^3/uL (4.0-10.0)
[2021-07-14 10:11] LABS: INR 1.34
[2021-07-14 10:12] LABS: PARTIAL THROMBOPLASTIN TIME 35.7 SECONDS (25.9-37.0)
[2021-07-14 14:43] LABS: ALBUMIN 2.1 GM/DL (3.2-5.2); BILIRUBIN,TOTAL 1.6 MG/DL (0.2-1.0); CALCIUM LEVEL 7.9 MG/DL (8.8-10.2); CREATININE FOR GFR 1.46 MG/DL (0.55-1.30); GLOMERULAR FILTRATION RATE 37.8 (>45); MAGNESIUM LEVEL 1.5 MG/DL (1.8-2.4); PHOSPHORUS LEVEL 3.2 MG/DL (2.5-4.9); POTASSIUM SERUM 2.3 MEQ/L (3.5-5.1); TOTAL PROTEIN 5.9 GM/DL (6.4-8.2)
[2021-07-16 10:16] LABS: PTH INTACT 20.6 PG/ML (18.5-88.0)
== END ==
LOC: M LAB 09:24
PROVIDERS: ATTEND Student in an Organized Health Care Education/Training Program
DX: E87.8 Other disorders of electrolyte and fluid balance, not elsewhere classified (principal); E83.51 Hypocalcemia

== ENCOUNTER 2021-08-06 11:34 | Inpatient (IN) | payer MEDICARE, MEDICAID ==
[2021-08-06] VITALS (7 sets, daily range): BP systolic 87–99; BP diastolic 46–57
[~2021-08-06] VITALS: Ht 157.5 cm; Wt 67.0 kg
[2021-08-06] MEDS: THIAMINE 100 MG TAB PO SCH ×2 (09:00→21:40)
[~2021-08-06 11:34] MED LIST changes: +B-1100TA2 PO; +LOPE2TAB12 PO; +MIDO5TA PO; +NICO1DIS12 TD
[2021-08-06 12:17] LABS: BASO # 0.1 10^3/uL (0.0-0.2); BASO % 0.4 % (0.0-1.0); EOS # 0.2 10^3/uL (0.0-0.5); EOS % 1.3 % (0.0-3.0); HEMATOCRIT 31.2 % (36.0-47.0); HEMOGLOBIN 11.2 g/dl (12.0-15.5); LYMPH # 2.2 10^3/uL (1.5-5.0); LYMPH % 12.3 % (24.0-44.0); MEAN CORPUSCULAR HEMOGLOBIN 30.9 pg (27.0-33.0); MEAN CORPUSCULAR HGB CONC 35.9 g/dl (32.0-36.5); MONO # 1.1 10^3/uL (0.0-0.8); MONO % 5.9 % (2.0-8.0); NEUTROPHILS # 14.3 10^3/uL (1.5-8.5); NEUTROPHILS % 79.5 % (36.0-66.0); PLATELET COUNT, AUTOMATED 290 10^3/uL (150-450); RED BLOOD COUNT 3.63 10^6/uL (4.00-5.40)
[2021-08-06 12:32] LABS: INR 1.64; PROTHROMBIN TIME 19.8 SECONDS (12.7-14.5)
[2021-08-06 12:52] LABS: ALBUMIN 2.4 GM/DL (3.2-5.2); BILIRUBIN,DIRECT 1.2 MG/DL (0.0-0.2); BILIRUBIN,TOTAL 2.6 MG/DL (0.2-1.0); TOTAL PROTEIN 6.4 GM/DL (6.4-8.2)
[2021-08-06] MEDS ORDERED: LACTULOSE 20 GM/30 ML SYRUP UD PO SCH (13:00)
[2021-08-06] MEDS ORDERED: LACTULOSE 20 GM/30 ML SYRUP UD PO ONE (13:10)
[2021-08-06] MEDS ORDERED: NS 1,000 ML IV SCH (13:10)
[2021-08-06] MEDS ORDERED: KCL 10MEQ/100ML SWI (KRUN) 10 MEQ in IV 1 EA IV ONE ×2 (13:20→16:00)
[2021-08-06] MEDS ORDERED: MAG SULF 1GM/100ML (MAG RUN) 1 GM in IV 1 EA IV ONE ×2 (13:25→22:35)
[2021-08-06] MEDS ORDERED: NS 1,000 ML IV ONE ×2 (13:30→18:35)
[2021-08-06] MEDS: MAG SULF 1GM/100ML (MAG RUN) 1 GM in IV 1 EA IV SCH ×2 (13:59→15:00)
[2021-08-06] MEDS ORDERED: FOLI1TAB11 PO (14:02)
[2021-08-06] MEDS ORDERED: SPIR50TA4 PO (14:02)
[2021-08-06] MEDS ORDERED: FURO20TA2 PO (14:02)
[2021-08-06] MEDS ORDERED: OMEP40CA5 PO (14:02)
[2021-08-06] MEDS ORDERED: CALCIUM GLUCONATE 1,000 MG in D5W MINI-BAG PLUS 100 ML IV ONE ×2 (14:15→18:35)
[2021-08-06] MEDS ORDERED: NICOTINE POLACRILEX 2 MG GUM PO PRN (14:30)
[2021-08-06] MEDS ORDERED: predniSONE 20 MG TAB PO ONE (14:30)
[2021-08-06] MEDS ORDERED: LORazepam 2 MG TAB PO PRN (14:30)
[2021-08-06 14:51] LABS: RSV AMPLIFICATION NEGATIVE (NEGATIVE)
[2021-08-06] MEDS ORDERED: MIDO5TA PO (15:08)
[2021-08-06] MEDS ORDERED: POTA-151 PO (15:08)
[2021-08-06] MEDS ORDERED: BUSP10TA PO (15:12)
[2021-08-06] MEDS ORDERED: HOME MED LIST COMPLETE! XX SCH (15:15)
[2021-08-06] MEDS: PIPERACILLIN/TAZOBACTAM SOD 2.25 GM in D5W MINI-BAG PLUS 50 ML IV SCH ×2 (17:00→23:38)
[2021-08-06] MEDS ORDERED: MULTIVITAMIN -ADULT INJECTION 10 ML, THIAMINE INJection 100 MG, FOLIC ACID 1 MG in NS 1... IV ONE (17:00)
[2021-08-06 17:25] LABS: ALBUMIN 2.3 GM/DL (3.2-5.2); BILIRUBIN,TOTAL 2.2 MG/DL (0.2-1.0); CALCIUM LEVEL 7.9 MG/DL (8.8-10.2); CREATININE FOR GFR 2.47 MG/DL (0.55-1.30); GLOMERULAR FILTRATION RATE 20.6 (>45); MAGNESIUM LEVEL 2.3 MG/DL (1.8-2.4); POTASSIUM SERUM 2.1 MEQ/L (3.5-5.1); TOTAL PROTEIN 5.7 GM/DL (6.4-8.2)
[2021-08-06] MEDS: MIDODRINE 5 MG TAB PO SCH ×2 (19:00→19:08)
[2021-08-06] MEDS: NICOTINE 14 MG/24 HR TRANSDERMAL TD SCH (19:00)
[2021-08-06] MEDS: LACTULOSE 20 GM/30 ML SYRUP UD PO SCH ×2 (19:11→22:47)
[2021-08-06 19:55] LABS: PERITONEAL FL COLOR YELLOW (COLORLESS); SOURCE, BODY FLUID PERITONEAL
[2021-08-06 19:56] LABS: APPEARANCE, BODY FLUID HAZY (CLEAR); SPEC. GRAVITY BODY FLUIDS 1.013 (NOT ESTABLISHED)
[2021-08-06 20:06] LABS: SOURCE, BODY FLUID ALBUMIN PERITONEAL; SOURCE, BODY FLUID GLUCOSE PERITONEAL; SOURCE, BODY FLUID TOT PROTEIN PERITONEAL; TOTAL PROTEIN, BODY FLUID 1.5 G/DL (NOT ESTABLISHED)
[2021-08-06] MEDS ORDERED: MIDODRINE 5 MG TAB PO ONE (23:10)
[2021-08-07] VITALS (13 sets, daily range): BP systolic 74–111; BP diastolic 38–62; O2SAT 96–99
[2021-08-07] MEDS ORDERED: UNRESOLVED CLARIFICATION ENTRY XX SCH (00:01)
[2021-08-07] MEDS ORDERED: NS 1,000 ML IV ONE ×2 (00:50→08:10)
[2021-08-07 02:15] LABS: ALBUMIN 2.3 GM/DL (3.2-5.2); CALCIUM LEVEL 7.5 MG/DL (8.8-10.2); CREATININE FOR GFR 2.23 MG/DL (0.55-1.30); GLOMERULAR FILTRATION RATE 23.2 (>45); MAGNESIUM LEVEL 2.6 MG/DL (1.8-2.4); POTASSIUM SERUM 1.7 MEQ/L (3.5-5.1); TOTAL PROTEIN 5.2 GM/DL (6.4-8.2)
[2021-08-07] MEDS ORDERED: POTASSIUM CHLORIDE 10% LIQ 20 MEQ/15 ML UDC PO ONE ×2 (02:15→04:30)
[2021-08-07] MEDS: KCL 40MEQ in NS 1000ML 1,000 ML IV SCH ×2 (02:42→12:25)
[2021-08-07] MEDS: HYDROCORTISONE 100 MG/2 ML VIAL (J1720 PER 1) IV SCH ×4 (06:00→23:44)
[2021-08-07] MEDS: PIPERACILLIN/TAZOBACTAM SOD 2.25 GM in D5W MINI-BAG PLUS 50 ML IV SCH ×4 (06:06→22:51)
[2021-08-07 06:26] LABS: BASO % 0.2 % (0.0-1.0); EOS # 0.1 10^3/uL (0.0-0.5); EOS % 0.4 % (0.0-3.0); HEMATOCRIT 24.8 % (36.0-47.0); LYMPH # 0.6 10^3/uL (1.5-5.0); LYMPH % 2.9 % (24.0-44.0); MEAN CORPUSCULAR HEMOGLOBIN 30.4 pg (27.0-33.0); MEAN CORPUSCULAR HGB CONC 35.1 g/dl (32.0-36.5); MEAN CORPUSCULAR VOLUME 86.7 fl (80.0-96.0); MONO # 0.7 10^3/uL (0.0-0.8); NEUTROPHILS # 19.9 10^3/uL (1.5-8.5); NEUTROPHILS % 92.7 % (36.0-66.0); PLATELET COUNT, AUTOMATED 204 10^3/uL (150-450); RED BLOOD COUNT 2.86 10^6/uL (4.00-5.40); WHITE BLOOD COUNT 21.5 10^3/uL (4.0-10.0)
[2021-08-07 06:36] LABS: HEMOGLOBIN 8.7 g/dl (12.0-15.5)
[2021-08-07 06:48] LABS: ALBUMIN 2.6 GM/DL (3.2-5.2); BILIRUBIN,TOTAL 2.2 MG/DL (0.2-1.0); CALCIUM LEVEL 7.4 MG/DL (8.8-10.2); CREATININE FOR GFR 2.27 MG/DL (0.55-1.30); GLOMERULAR FILTRATION RATE 22.7 (>45); MAGNESIUM LEVEL 2.4 MG/DL (1.8-2.4); POTASSIUM SERUM 2.6 MEQ/L (3.5-5.1); TOTAL PROTEIN 5.6 GM/DL (6.4-8.2)
[2021-08-07] MEDS: KCL 10MEQ/100ML SWI (KRUN) 10 MEQ in IV 1 EA IV SCH ×4 (09:00→12:44)
[2021-08-07] MEDS ORDERED: LACTULOSE 20 GM/30 ML SYRUP UD PO SCH (09:00)
[2021-08-07] MEDS: MULTIVITAMINS/MINERALS THERAP 1 TAB PO SCH (09:11)
[2021-08-07] MEDS: MIDODRINE 5 MG TAB PO SCH ×3 (09:11→16:00)
[2021-08-07] MEDS: predniSONE 20 MG TAB PO SCH (09:11)
[2021-08-07] MEDS: LACTULOSE 20 GM/30 ML SYRUP UD PO SCH ×4 (09:12→21:44)
[2021-08-07] MEDS: NICOTINE 14 MG/24 HR TRANSDERMAL TD SCH (09:12)
[2021-08-07] MEDS: THIAMINE 100 MG TAB PO SCH ×2 (09:12→21:44)
[2021-08-07] MEDS: FOLIC ACID 1 MG TAB PO SCH (09:13)
[2021-08-07] MEDS: SODIUM BICARBONATE 150 MEQ in STERILE WATER LITER BAG 1,000 ML IV SCH ×2 (10:00→21:30)
[2021-08-07] MEDS: LACTOBACILLUS ACIDOPHILUS CAP (BACID) PO SCH ×2 (12:43→18:49)
[2021-08-07 20:27] LABS: CALCIUM LEVEL 7.8 MG/DL (8.8-10.2); CREATININE FOR GFR 2.22 MG/DL (0.55-1.30); GLOMERULAR FILTRATION RATE 23.3 (>45); POTASSIUM SERUM 2.6 MEQ/L (3.5-5.1)
[2021-08-07] MEDS ORDERED: KCL 10MEQ/100ML SWI (KRUN) 10 MEQ in IV 1 EA IV SCH (21:30)
[2021-08-07] MEDS ORDERED: LEVALBUTEROL 1.25 MG/0.5 ML CONCENTRATE NEB INH PRN (21:40)
[2021-08-07] MEDS ORDERED: POTASSIUM CHLORIDE 10MEQ SR TABLET PO ONE (22:35)
[2021-08-08] VITALS (25 sets, daily range): BP systolic 88–125; BP diastolic 52–71; O2SAT 91–99
[2021-08-08] MEDS ORDERED: KCL 10MEQ/100ML SWI (KRUN) 10 MEQ in IV 1 EA IV SCH ×2 (00:30→07:25)
[2021-08-08] MEDS: SODIUM BICARBONATE 150 MEQ in STERILE WATER LITER BAG 1,000 ML IV SCH ×2 (01:46→14:19)
[2021-08-08] MEDS: HYDROCORTISONE 100 MG/2 ML VIAL (J1720 PER 1) IV SCH ×4 (05:05→23:30)
[2021-08-08] MEDS: PIPERACILLIN/TAZOBACTAM SOD 2.25 GM in D5W MINI-BAG PLUS 50 ML IV SCH (05:05)
[2021-08-08 05:54] LABS: BASO % 0.1 % (0.0-1.0); HEMATOCRIT 24.7 % (36.0-47.0); HEMOGLOBIN 8.7 g/dl (12.0-15.5); LYMPH # 1.1 10^3/uL (1.5-5.0); MEAN CORPUSCULAR HEMOGLOBIN 30.3 pg (27.0-33.0); MEAN CORPUSCULAR HGB CONC 35.2 g/dl (32.0-36.5); MEAN CORPUSCULAR VOLUME 86.1 fl (80.0-96.0); MONO # 0.6 10^3/uL (0.0-0.8); MONO % 3.4 % (2.0-8.0); NEUTROPHILS # 15.7 10^3/uL (1.5-8.5); NEUTROPHILS % 89.6 % (36.0-66.0); PLATELET COUNT, AUTOMATED 210 10^3/uL (150-450); RED BLOOD COUNT 2.87 10^6/uL (4.00-5.40); WHITE BLOOD COUNT 17.6 10^3/uL (4.0-10.0)
[2021-08-08 06:26] LABS: ALBUMIN 2.5 GM/DL (3.2-5.2); BILIRUBIN,TOTAL 1.6 MG/DL (0.2-1.0); CALCIUM LEVEL 7.6 MG/DL (8.8-10.2); CREATININE FOR GFR 2.05 MG/DL (0.55-1.30); GLOMERULAR FILTRATION RATE 25.6 (>45); MAGNESIUM LEVEL 2.2 MG/DL (1.8-2.4); POTASSIUM SERUM 2.3 MEQ/L (3.5-5.1); TOTAL PROTEIN 5.3 GM/DL (6.4-8.2)
[2021-08-08] MEDS ORDERED: POTASSIUM CHLORIDE 10% LIQ 20 MEQ/15 ML UDC PO ONE ×3 (06:35→09:00)
[2021-08-08] MEDS ORDERED: KCL 10MEQ/100ML SWI (KRUN) 10 MEQ in IV 1 EA IV ONE (06:35)
[2021-08-08] MEDS ORDERED: CALCIUM GLUCONATE 1,000 MG in D5W MINI-BAG PLUS 100 ML IV ONE ×2 (08:00→15:40)
[2021-08-08 08:20] LABS: MAGNESIUM LEVEL 2.4 MG/DL (1.8-2.4); POTASSIUM SERUM 2.8 MEQ/L (3.5-5.1)
[2021-08-08] MEDS: DIAPER RELIEF PASTE (DESITIN) 60GM TOP SCH ×4 (09:00→20:10)
[2021-08-08] MEDS ORDERED: VITAMIN A & D OINTMENT 42.5GM TOP SCH (09:00)
[2021-08-08] MEDS: MIDODRINE 5 MG TAB PO SCH ×3 (09:35→15:40)
[2021-08-08] MEDS: THIAMINE 100 MG TAB PO SCH ×2 (09:35→20:09)
[2021-08-08] MEDS: predniSONE 20 MG TAB PO SCH (09:35)
[2021-08-08] MEDS: LACTOBACILLUS ACIDOPHILUS CAP (BACID) PO SCH ×3 (09:35→17:09)
[2021-08-08] MEDS: MULTIVITAMINS/MINERALS THERAP 1 TAB PO SCH (09:35)
[2021-08-08] MEDS: FOLIC ACID 1 MG TAB PO SCH (09:36)
[2021-08-08] MEDS: NICOTINE 14 MG/24 HR TRANSDERMAL TD SCH (09:36)
[2021-08-08] MEDS: MAG SULF 1GM/100ML (MAG RUN) 1 GM in IV 1 EA IV SCH ×2 (09:54→10:57)
[2021-08-08 10:17] LABS: CK-MB VALUE MASS 1.4 NG/ML (<3.6); MB/CK RELATIVE INDEX 2.86 (< OR =4)
[2021-08-08] MEDS ORDERED: LIDOCAINE 1% MDV 20ML VIAL As Ordered ONE (12:33)
[2021-08-08 14:29] LABS: MAGNESIUM LEVEL 2.8 MG/DL (1.8-2.4); POTASSIUM SERUM 2.6 MEQ/L (3.5-5.1)
[2021-08-08 14:45] LABS: CK-MB VALUE MASS 1.2 NG/ML (<3.6); MB/CK RELATIVE INDEX 4.14 (< OR =4)
[2021-08-08] MEDS: KCL 10MEQ/100ML SWI (KRUN) 10 MEQ in IV 1 EA IV SCH ×4 (15:02→18:18)
[2021-08-08 16:56] LABS: CK-MB VALUE MASS 1.4 NG/ML (<3.6); MB/CK RELATIVE INDEX 5.19 (< OR =4)
[2021-08-08 17:01] LABS: MAGNESIUM LEVEL 2.9 MG/DL (1.8-2.4); POTASSIUM SERUM 2.9 MEQ/L (3.5-5.1)
[2021-08-08] MEDS: SODIUM CHLORIDE 0.9% INJ 10 ML SYR IV SCH (17:09)
[2021-08-08] MEDS: POTASSIUM CHLORIDE 10% LIQ 20 MEQ/15 ML UDC PO SCH ×2 (18:10→20:10)
[2021-08-08 20:59] LABS: MAGNESIUM LEVEL 2.9 MG/DL (1.8-2.4)
[2021-08-08] MEDS ORDERED: POTASSIUM CHLORIDE 10MEQ SR TABLET PO ONE (21:30)
[2021-08-09] VITALS (23 sets, daily range): BP systolic 87–124; BP diastolic 50–66; O2SAT 84–97
[2021-08-09] MEDS: DIAPER RELIEF PASTE (DESITIN) 60GM TOP SCH ×6 (00:12→20:29)
[2021-08-09] MEDS: SODIUM BICARBONATE 150 MEQ in STERILE WATER LITER BAG 1,000 ML IV SCH (03:30)
[2021-08-09] MEDS: HYDROCORTISONE 100 MG/2 ML VIAL (J1720 PER 1) IV SCH ×3 (05:06→17:14)
[2021-08-09] MEDS: SODIUM CHLORIDE 0.9% INJ 10 ML SYR IV SCH ×2 (05:07→17:14)
[2021-08-09 05:30] LABS: BASO % 0.1 % (0.0-1.0); HEMATOCRIT 23.9 % (36.0-47.0); HEMOGLOBIN 8.5 g/dl (12.0-15.5); LYMPH # 1.4 10^3/uL (1.5-5.0); LYMPH % 6.8 % (24.0-44.0); MEAN CORPUSCULAR HEMOGLOBIN 30.7 pg (27.0-33.0); MEAN CORPUSCULAR HGB CONC 35.6 g/dl (32.0-36.5); MEAN CORPUSCULAR VOLUME 86.3 fl (80.0-96.0); MONO % 4.9 % (2.0-8.0); NEUTROPHILS % 87.3 % (36.0-66.0); PLATELET COUNT, AUTOMATED 230 10^3/uL (150-450); RED BLOOD COUNT 2.77 10^6/uL (4.00-5.40); WHITE BLOOD COUNT 20.6 10^3/uL (4.0-10.0)
[2021-08-09 05:58] LABS: ALBUMIN 2.9 GM/DL (3.2-5.2); BILIRUBIN,TOTAL 1.7 MG/DL (0.2-1.0); CALCIUM LEVEL 8.3 MG/DL (8.8-10.2); CREATININE FOR GFR 1.93 MG/DL (0.55-1.30); GLOMERULAR FILTRATION RATE 27.4 (>45); MAGNESIUM LEVEL 2.8 MG/DL (1.8-2.4); POTASSIUM SERUM 3.4 MEQ/L (3.5-5.1); TOTAL PROTEIN 5.6 GM/DL (6.4-8.2)
[2021-08-09] MEDS: LACTOBACILLUS ACIDOPHILUS CAP (BACID) PO SCH ×3 (08:05→17:15)
[2021-08-09] MEDS: NICOTINE 14 MG/24 HR TRANSDERMAL TD SCH (08:05)
[2021-08-09] MEDS: MIDODRINE 5 MG TAB PO SCH ×3 (08:06→15:10)
[2021-08-09] MEDS: FOLIC ACID 1 MG TAB PO SCH (08:06)
[2021-08-09] MEDS: predniSONE 20 MG TAB PO SCH (08:06)
[2021-08-09] MEDS: MULTIVITAMINS/MINERALS THERAP 1 TAB PO SCH (08:06)
[2021-08-09] MEDS: POTASSIUM CHLORIDE 10MEQ SR TABLET PO SCH ×3 (08:31→20:29)
[2021-08-09 08:37] LABS: C REACTIVE PROTEIN QUANTITATIV 1.02 MG/DL (0.00-0.30)
[2021-08-09 08:53] LABS: ERYTHROCYTE SEDIMENTATION RATE 9 mm/hr (0-30)
[2021-08-09] MEDS: LACTULOSE 20 GM/30 ML SYRUP UD PO SCH ×2 (09:00→20:29)
[2021-08-09] MEDS: CALCIUM CARBONATE 500 MG CHEW U/D PO SCH ×2 (12:16→17:15)
[2021-08-09] MEDS ORDERED: CALCIUM GLUCONATE 1,000 MG in D5W MINI-BAG PLUS 100 ML IV ONE (13:00)
[2021-08-09] MEDS: CIPROFLOXACIN 400 MG in IV 1 EA IV SCH (13:31)
[2021-08-09] MEDS: metroNIDAZOLE 500 MG in IV 1 EA IV SCH (15:10)
[2021-08-09] MEDS: SODIUM CHLORIDE 0.9% INJ 10 ML SYR IV PRN (16:30)
[2021-08-10] VITALS: BP 97/62
[2021-08-10] MEDS: metroNIDAZOLE 500 MG in IV 1 EA IV SCH ×2 (00:14→06:25)
[2021-08-10] MEDS: HYDROCORTISONE 100 MG/2 ML VIAL (J1720 PER 1) IV SCH ×2 (00:14→05:00)
[2021-08-10] MEDS: DIAPER RELIEF PASTE (DESITIN) 60GM TOP SCH ×6 (00:15→21:16)
[2021-08-10] MEDS: CIPROFLOXACIN 400 MG in IV 1 EA IV SCH (01:46)
[2021-08-10 04:00] VITALS: BP 90/50
[2021-08-10] MEDS: SODIUM CHLORIDE 0.9% INJ 10 ML SYR IV SCH ×2 (05:00→18:24)
[2021-08-10 05:18] LABS: BASO % 0.2 % (0.0-1.0); HEMATOCRIT 29.7 % (36.0-47.0); HEMOGLOBIN 10.4 g/dl (12.0-15.5); LYMPH # 1.3 10^3/uL (1.5-5.0); LYMPH % 5.8 % (24.0-44.0); MEAN CORPUSCULAR HEMOGLOBIN 30.3 pg (27.0-33.0); MEAN CORPUSCULAR VOLUME 86.6 fl (80.0-96.0); MONO # 1.6 10^3/uL (0.0-0.8); MONO % 7.2 % (2.0-8.0); NEUTROPHILS # 18.2 10^3/uL (1.5-8.5); NEUTROPHILS % 84.5 % (36.0-66.0); PLATELET COUNT, AUTOMATED 209 10^3/uL (150-450); RED BLOOD COUNT 3.43 10^6/uL (4.00-5.40); WHITE BLOOD COUNT 21.6 10^3/uL (4.0-10.0)
[2021-08-10 05:42] LABS: ALBUMIN 2.9 GM/DL (3.2-5.2); BILIRUBIN,TOTAL 2.9 MG/DL (0.2-1.0); CALCIUM LEVEL 8.7 MG/DL (8.8-10.2); CREATININE FOR GFR 2.07 MG/DL (0.55-1.30); GLOMERULAR FILTRATION RATE 25.3 (>45); MAGNESIUM LEVEL 2.7 MG/DL (1.8-2.4); POTASSIUM SERUM 3.8 MEQ/L (3.5-5.1); TOTAL PROTEIN 5.6 GM/DL (6.4-8.2)
[2021-08-10] MEDS: CALCIUM CARBONATE 500 MG CHEW U/D PO SCH ×3 (07:48→18:24)
[2021-08-10] MEDS: MIDODRINE 5 MG TAB PO SCH ×3 (07:48→16:23)
[2021-08-10] MEDS: LACTOBACILLUS ACIDOPHILUS CAP (BACID) PO SCH ×3 (07:48→18:24)
[2021-08-10] MEDS: SODIUM CHLORIDE 0.9% INJ 10 ML SYR IV PRN ×4 (07:55→18:24)
[2021-08-10 08:22] VITALS: BP 98/56
[2021-08-10] MEDS: LACTULOSE 20 GM/30 ML SYRUP UD PO SCH ×2 (10:15→21:00)
[2021-08-10] MEDS: methylPREDNISolone 40MG 1ML VIAL IV SCH (10:15)
[2021-08-10] MEDS: MULTIVITAMINS/MINERALS THERAP 1 TAB PO SCH (10:16)
[2021-08-10] MEDS: POTASSIUM CHLORIDE 10MEQ SR TABLET PO SCH ×2 (10:16→16:21)
[2021-08-10] MEDS: FOLIC ACID 1 MG TAB PO SCH (10:17)
[2021-08-10 10:19] LABS: INR 1.66; PARTIAL THROMBOPLASTIN TIME 32.4 SECONDS (25.9-37.0)
[2021-08-10] MEDS: NICOTINE 14 MG/24 HR TRANSDERMAL TD SCH (10:20)
[2021-08-10] MEDS ORDERED: OCTREOTIDE ACETATE 100MCG/ML VIAL **SC ADMINISTRATION ONLY SC ONE (12:00)
[2021-08-10 12:30] VITALS: BP 93/62
[2021-08-10] MEDS: HEPARIN SOD (PORCINE) 5000UNITS/ML 1ML VIAL/SYRINGE SQ SCH ×2 (13:44→21:16)
[2021-08-10 14:45] LABS: APPEARANCE, URINE CLEAR (CLEAR); BACTERIA, URINE AUTO NEGATIVE (NEGATIVE); BILIRUBIN, URINE AUTO NEGATIVE (NEGATIVE); BLOOD, URINE BLOOD NEGATIVE (NEGATIVE); COLOR, URINE AMBER (YELLOW); GLUCOSE, URINE (UA) AUTO NEGATIVE (NEGATIVE); KETONE, URINE AUTO NEGATIVE (NEGATIVE); LEUKOCYTE ESTERASE, URINE AUTO NEGATIVE (NEGATIVE); MUCUS, URINE SMALL (NEGATIVE); NITRITE, URINE AUTO NEGATIVE (NEGATIVE); PROTEIN, URINE AUTO NEGATIVE (NEGATIVE); RBC, URINE AUTO 1 /HPF (0-3); SPECIFIC GRAVITY URINE AUTO 1.023 (1.002-1.035); SQUAMOUS EPITHELIAL CELL UR AU 1 /HPF (0-6); UROBILINOGEN, URINE AUTO 0.2 mg/dL (0.0-2.0); WBC, URINE AUTO 2 /HPF (0-3)
[2021-08-10 14:52] LABS: CHLORIDE,RANDOM URINE 16 MEQ/L; SODIUM,RANDOM URINE < 10 MEQ/L
[2021-08-10 16:00] VITALS: BP 93/62
[2021-08-10 16:16] LABS: CLOSTRIDIUM DIFFICILE PCR NEGATIVE (NEGATIVE)
[2021-08-10 20:00] VITALS: BP 105/57
[2021-08-10] MEDS: OCTREOTIDE ACETATE 100MCG/ML VIAL **SC ADMINISTRATION ONLY SC SCH (21:15)
[2021-08-11] VITALS: BP 111/55
[2021-08-11] MEDS: DIAPER RELIEF PASTE (DESITIN) 60GM TOP SCH ×6 (01:28→21:11)
[2021-08-11 04:00] VITALS: BP 103/63
[2021-08-11] MEDS: HEPARIN SOD (PORCINE) 5000UNITS/ML 1ML VIAL/SYRINGE SQ SCH ×3 (05:31→21:12)
[2021-08-11] MEDS: OCTREOTIDE ACETATE 100MCG/ML VIAL **SC ADMINISTRATION ONLY SC SCH ×3 (05:31→21:11)
[2021-08-11] MEDS: SODIUM CHLORIDE 0.9% INJ 10 ML SYR IV SCH ×2 (05:32→18:19)
[2021-08-11 05:40] LABS: BASO % 0.2 % (0.0-1.0); EOS % 0.1 % (0.0-3.0); HEMATOCRIT 30.9 % (36.0-47.0); HEMOGLOBIN 10.5 g/dl (12.0-15.5); LYMPH # 2.1 10^3/uL (1.5-5.0); LYMPH % 10.4 % (24.0-44.0); MEAN CORPUSCULAR HEMOGLOBIN 30.3 pg (27.0-33.0); MONO # 1.1 10^3/uL (0.0-0.8); MONO % 5.5 % (2.0-8.0); NEUTROPHILS # 16.2 10^3/uL (1.5-8.5); NEUTROPHILS % 81.7 % (36.0-66.0); PLATELET COUNT, AUTOMATED 212 10^3/uL (150-450); RED BLOOD COUNT 3.47 10^6/uL (4.00-5.40); WHITE BLOOD COUNT 19.8 10^3/uL (4.0-10.0)
[2021-08-11 06:00] LABS: ALBUMIN 2.9 GM/DL (3.2-5.2); BILIRUBIN,TOTAL 2.9 MG/DL (0.2-1.0); CALCIUM LEVEL 8.8 MG/DL (8.8-10.2); CREATININE FOR GFR 2.08 MG/DL (0.55-1.30); GLOMERULAR FILTRATION RATE 25.1 (>45); MAGNESIUM LEVEL 2.4 MG/DL (1.8-2.4); POTASSIUM SERUM 4.3 MEQ/L (3.5-5.1); TOTAL PROTEIN 5.5 GM/DL (6.4-8.2)
[2021-08-11 07:55] VITALS: BP 102/58
[2021-08-11] MEDS: MIDODRINE 5 MG TAB PO SCH ×3 (08:00→15:39)
[2021-08-11] MEDS: LACTULOSE 20 GM/30 ML SYRUP UD PO SCH ×2 (09:00→21:00)
[2021-08-11] MEDS: MULTIVITAMINS/MINERALS THERAP 1 TAB PO SCH (09:12)
[2021-08-11] MEDS: LACTOBACILLUS ACIDOPHILUS CAP (BACID) PO SCH ×3 (09:12→18:19)
[2021-08-11] MEDS: THIAMINE 100 MG TAB PO SCH (09:12)
[2021-08-11] MEDS: POTASSIUM CHLORIDE 10MEQ SR TABLET PO SCH (09:13)
[2021-08-11] MEDS: FOLIC ACID 1 MG TAB PO SCH (09:13)
[2021-08-11] MEDS: CALCIUM CARBONATE 500 MG CHEW U/D PO SCH ×3 (09:13→18:19)
[2021-08-11] MEDS: NICOTINE 14 MG/24 HR TRANSDERMAL TD SCH (09:14)
[2021-08-11] MEDS: methylPREDNISolone 40MG 1ML VIAL IV SCH (09:15)
[2021-08-11 10:24] LABS: PERCENT SATURATION 21.8 % (13.2-45.0)
[2021-08-11 12:00] VITALS: BP 122/71
[2021-08-11 16:00] VITALS: BP 90/61
[2021-08-11 16:45] LABS: INR 1.76; PROTHROMBIN TIME 20.9 SECONDS (12.7-14.5)
[2021-08-11] MEDS ORDERED: LACTULOSE 20 GM/30 ML SYRUP UD PO ONE (17:00)
[2021-08-11 20:00] VITALS: BP 129/68
[2021-08-12] VITALS: BP 105/56
[2021-08-12] MEDS: DIAPER RELIEF PASTE (DESITIN) 60GM TOP SCH ×6 (00:05→21:00)
[2021-08-12 04:00] VITALS: BP 117/58
[2021-08-12] MEDS: OCTREOTIDE ACETATE 100MCG/ML VIAL **SC ADMINISTRATION ONLY SC SCH ×3 (05:30→21:22)
[2021-08-12] MEDS: SODIUM CHLORIDE 0.9% INJ 10 ML SYR IV SCH ×2 (05:31→17:26)
[2021-08-12] MEDS: HEPARIN SOD (PORCINE) 5000UNITS/ML 1ML VIAL/SYRINGE SQ SCH ×3 (05:31→21:22)
[2021-08-12 05:44] LABS: BASO # 0.1 10^3/uL (0.0-0.2); BASO % 0.3 % (0.0-1.0); EOS # 0.1 10^3/uL (0.0-0.5); EOS % 0.4 % (0.0-3.0); HEMATOCRIT 31.5 % (36.0-47.0); HEMOGLOBIN 10.5 g/dl (12.0-15.5); LYMPH # 2.3 10^3/uL (1.5-5.0); LYMPH % 12.1 % (24.0-44.0); MEAN CORPUSCULAR HEMOGLOBIN 30.2 pg (27.0-33.0); MEAN CORPUSCULAR HGB CONC 33.3 g/dl (32.0-36.5); MEAN CORPUSCULAR VOLUME 90.5 fl (80.0-96.0); MONO # 1.3 10^3/uL (0.0-0.8); MONO % 6.7 % (2.0-8.0); NEUTROPHILS # 14.7 10^3/uL (1.5-8.5); NEUTROPHILS % 78.3 % (36.0-66.0); PLATELET COUNT, AUTOMATED 188 10^3/uL (150-450); RED BLOOD COUNT 3.48 10^6/uL (4.00-5.40); WHITE BLOOD COUNT 18.8 10^3/uL (4.0-10.0)
[2021-08-12 05:47] LABS: INR 1.77
[2021-08-12 05:48] LABS: PARTIAL THROMBOPLASTIN TIME 37.8 SECONDS (25.9-37.0)
[2021-08-12 06:06] LABS: ALBUMIN 2.9 GM/DL (3.2-5.2); BILIRUBIN,TOTAL 2.7 MG/DL (0.2-1.0); CALCIUM LEVEL 8.8 MG/DL (8.8-10.2); CREATININE FOR GFR 1.96 MG/DL (0.55-1.30); GLOMERULAR FILTRATION RATE 26.9 (>45); MAGNESIUM LEVEL 2.3 MG/DL (1.8-2.4); PHOSPHORUS LEVEL 2.7 MG/DL (2.5-4.9); POTASSIUM SERUM 4.1 MEQ/L (3.5-5.1); TOTAL PROTEIN 5.3 GM/DL (6.4-8.2)
[2021-08-12 08:00] VITALS: BP 94/54
[2021-08-12] MEDS: MULTIVITAMINS/MINERALS THERAP 1 TAB PO SCH (08:20)
[2021-08-12] MEDS: CALCIUM CARBONATE 500 MG CHEW U/D PO SCH ×3 (08:20→17:25)
[2021-08-12] MEDS: NICOTINE 14 MG/24 HR TRANSDERMAL TD SCH (08:20)
[2021-08-12] MEDS: MIDODRINE 5 MG TAB PO SCH ×3 (08:21→17:25)
[2021-08-12] MEDS: FOLIC ACID 1 MG TAB PO SCH (08:21)
[2021-08-12] MEDS: POTASSIUM CHLORIDE 10MEQ SR TABLET PO SCH (08:21)
[2021-08-12] MEDS: LACTOBACILLUS ACIDOPHILUS CAP (BACID) PO SCH ×3 (08:21→17:25)
[2021-08-12] MEDS: LACTULOSE 20 GM/30 ML SYRUP UD PO SCH ×2 (09:00→21:00)
[2021-08-12] MEDS ORDERED: BOUDREAUX'S BUTT PASTE TOP SCH (11:00)
[2021-08-12 12:00] VITALS: BP 98/52
[2021-08-12] MEDS: BOUDREAUX'S BUTT PASTE TOP PRN ×2 (13:02→17:49)
[2021-08-12 16:00] VITALS: BP 100/50
[2021-08-12] MEDS: THIAMINE 100 MG TAB PO SCH (17:25)
[2021-08-12 20:00] VITALS: BP 123/60
[2021-08-13] VITALS: BP 105/53
[2021-08-13] MEDS: DIAPER RELIEF PASTE (DESITIN) 60GM TOP SCH ×6 (01:00→21:28)
[2021-08-13 04:00] VITALS: BP 104/60
[2021-08-13] MEDS: OCTREOTIDE ACETATE 100MCG/ML VIAL **SC ADMINISTRATION ONLY SC SCH ×3 (06:00→21:26)
[2021-08-13] MEDS: HEPARIN SOD (PORCINE) 5000UNITS/ML 1ML VIAL/SYRINGE SQ SCH ×3 (06:01→21:27)
[2021-08-13] MEDS: SODIUM CHLORIDE 0.9% INJ 10 ML SYR IV SCH ×2 (06:01→17:45)
[2021-08-13 06:40] LABS: BASO # 0.1 10^3/uL (0.0-0.2); BASO % 0.3 % (0.0-1.0); EOS # 0.4 10^3/uL (0.0-0.5); HEMATOCRIT 30.9 % (36.0-47.0); HEMOGLOBIN 10.2 g/dl (12.0-15.5); LYMPH # 2.8 10^3/uL (1.5-5.0); LYMPH % 14.8 % (24.0-44.0); MEAN CORPUSCULAR HEMOGLOBIN 30.5 pg (27.0-33.0); MEAN CORPUSCULAR VOLUME 92.5 fl (80.0-96.0); MONO # 1.4 10^3/uL (0.0-0.8); MONO % 7.4 % (2.0-8.0); NEUTROPHILS # 13.7 10^3/uL (1.5-8.5); NEUTROPHILS % 73.8 % (36.0-66.0); PLATELET COUNT, AUTOMATED 195 10^3/uL (150-450); RED BLOOD COUNT 3.34 10^6/uL (4.00-5.40); WHITE BLOOD COUNT 18.6 10^3/uL (4.0-10.0)
[2021-08-13 06:49] LABS: INR 1.6; PROTHROMBIN TIME 19.4 SECONDS (12.7-14.5)
[2021-08-13 06:50] LABS: PARTIAL THROMBOPLASTIN TIME 53.2 SECONDS (25.9-37.0)
[2021-08-13 06:51] LABS: ALBUMIN 2.8 GM/DL (3.2-5.2); BILIRUBIN,TOTAL 2.8 MG/DL (0.2-1.0); CALCIUM LEVEL 8.7 MG/DL (8.8-10.2); CREATININE FOR GFR 1.78 MG/DL (0.55-1.30); GLOMERULAR FILTRATION RATE 30.1 (>45); MAGNESIUM LEVEL 2.3 MG/DL (1.8-2.4); POTASSIUM SERUM 4.5 MEQ/L (3.5-5.1); TOTAL PROTEIN 5.2 GM/DL (6.4-8.2)
[2021-08-13] MEDS: NICOTINE 14 MG/24 HR TRANSDERMAL TD SCH (08:55)
[2021-08-13] MEDS: FOLIC ACID 1 MG TAB PO SCH (08:56)
[2021-08-13] MEDS: MULTIVITAMINS/MINERALS THERAP 1 TAB PO SCH (08:56)
[2021-08-13] MEDS: THIAMINE 100 MG TAB PO SCH (08:56)
[2021-08-13] MEDS: LACTOBACILLUS ACIDOPHILUS CAP (BACID) PO SCH ×3 (08:56→17:45)
[2021-08-13] MEDS: LACTULOSE 20 GM/30 ML SYRUP UD PO SCH ×3 (08:56→21:27)
[2021-08-13] MEDS: MIDODRINE 5 MG TAB PO SCH ×3 (08:56→15:34)
[2021-08-13] MEDS: CALCIUM CARBONATE 500 MG CHEW U/D PO SCH ×3 (08:56→17:44)
[2021-08-13 10:21] LABS: FOLATE 7.4 NG/ML
[2021-08-13 12:30] VITALS: BP 108/59
[2021-08-13 15:25] VITALS: BP 111/56
[2021-08-13 20:00] VITALS: BP 118/59
[2021-08-14] VITALS (7 sets, daily range): BP systolic 102–134; BP diastolic 57–88
[2021-08-14] MEDS: DIAPER RELIEF PASTE (DESITIN) 60GM TOP SCH ×6 (01:15→20:47)
[2021-08-14] MEDS: HEPARIN SOD (PORCINE) 5000UNITS/ML 1ML VIAL/SYRINGE SQ SCH ×3 (05:10→20:47)
[2021-08-14] MEDS: SODIUM CHLORIDE 0.9% INJ 10 ML SYR IV SCH ×2 (05:11→17:41)
[2021-08-14] MEDS: OCTREOTIDE ACETATE 100MCG/ML VIAL **SC ADMINISTRATION ONLY SC SCH ×2 (05:13→13:32)
[2021-08-14 05:51] LABS: BASO % 0.1 % (0.0-1.0); EOS # 0.7 10^3/uL (0.0-0.5); EOS % 4.4 % (0.0-3.0); HEMATOCRIT 31.3 % (36.0-47.0); HEMOGLOBIN 10.5 g/dl (12.0-15.5); LYMPH # 2.1 10^3/uL (1.5-5.0); LYMPH % 13.9 % (24.0-44.0); MEAN CORPUSCULAR HEMOGLOBIN 31.2 pg (27.0-33.0); MEAN CORPUSCULAR HGB CONC 33.5 g/dl (32.0-36.5); MEAN CORPUSCULAR VOLUME 92.9 fl (80.0-96.0); MONO # 1.5 10^3/uL (0.0-0.8); MONO % 9.9 % (2.0-8.0); NEUTROPHILS # 10.5 10^3/uL (1.5-8.5); NEUTROPHILS % 70.4 % (36.0-66.0); PLATELET COUNT, AUTOMATED 177 10^3/uL (150-450); RED BLOOD COUNT 3.37 10^6/uL (4.00-5.40); WHITE BLOOD COUNT 14.9 10^3/uL (4.0-10.0)
[2021-08-14 06:21] LABS: ALBUMIN 2.5 GM/DL (3.2-5.2); BILIRUBIN,TOTAL 2.3 MG/DL (0.2-1.0); CALCIUM LEVEL 8.3 MG/DL (8.8-10.2); CREATININE FOR GFR 1.65 MG/DL (0.55-1.30); GLOMERULAR FILTRATION RATE 32.8 (>45); MAGNESIUM LEVEL 1.8 MG/DL (1.8-2.4); PHOSPHORUS LEVEL 2.7 MG/DL (2.5-4.9); POTASSIUM SERUM 3.8 MEQ/L (3.5-5.1); TOTAL PROTEIN 4.9 GM/DL (6.4-8.2)
[2021-08-14] MEDS: MIDODRINE 5 MG TAB PO SCH ×3 (08:00→15:49)
[2021-08-14] MEDS: CALCIUM CARBONATE 500 MG CHEW U/D PO SCH ×3 (08:35→17:40)
[2021-08-14] MEDS: LACTULOSE 20 GM/30 ML SYRUP UD PO SCH ×3 (08:35→20:41)
[2021-08-14] MEDS: NICOTINE 14 MG/24 HR TRANSDERMAL TD SCH (08:35)
[2021-08-14] MEDS: LACTOBACILLUS ACIDOPHILUS CAP (BACID) PO SCH ×3 (08:35→17:40)
[2021-08-14] MEDS: MULTIVITAMINS/MINERALS THERAP 1 TAB PO SCH (08:36)
[2021-08-14] MEDS: FOLIC ACID 1 MG TAB PO SCH (08:36)
[2021-08-14] MEDS: THIAMINE 100 MG TAB PO SCH (08:36)
[2021-08-14] MEDS ORDERED: BOUDPST TOP (14:06)
[2021-08-14] MEDS ORDERED: LACT20EL PO (14:06)
[2021-08-14] MEDS ORDERED: MIDO5TA PO (14:06)
[2021-08-14] MEDS: SODIUM CHLORIDE 0.9% INJ 10 ML SYR IV PRN (17:43)
[2021-08-15] MEDS: DIAPER RELIEF PASTE (DESITIN) 60GM TOP SCH ×4 (00:17→11:41)
[2021-08-15] MEDS: SODIUM CHLORIDE 0.9% INJ 10 ML SYR IV SCH (05:33)
[2021-08-15] MEDS: HEPARIN SOD (PORCINE) 5000UNITS/ML 1ML VIAL/SYRINGE SQ SCH ×2 (05:34→14:04)
[2021-08-15 06:00] VITALS: BP 99/54
[2021-08-15] MEDS: LACTULOSE 20 GM/30 ML SYRUP UD PO SCH ×2 (08:22→15:52)
[2021-08-15] MEDS: MIDODRINE 5 MG TAB PO SCH ×3 (09:04→16:04)
[2021-08-15] MEDS: MULTIVITAMINS/MINERALS THERAP 1 TAB PO SCH (09:04)
[2021-08-15] MEDS: FOLIC ACID 1 MG TAB PO SCH (09:05)
[2021-08-15] MEDS: LACTOBACILLUS ACIDOPHILUS CAP (BACID) PO SCH ×2 (09:05→11:40)
[2021-08-15] MEDS: THIAMINE 100 MG TAB PO SCH (09:05)
[2021-08-15] MEDS: CALCIUM CARBONATE 500 MG CHEW U/D PO SCH ×2 (09:06→11:41)
[2021-08-15] MEDS: NICOTINE 14 MG/24 HR TRANSDERMAL TD SCH (09:06)
[2021-08-15 09:30] LABS: HEMATOCRIT 34.9 % (36.0-47.0); HEMOGLOBIN 11.6 g/dl (12.0-15.5); MEAN CORPUSCULAR HEMOGLOBIN 30.5 pg (27.0-33.0); MEAN CORPUSCULAR HGB CONC 33.2 g/dl (32.0-36.5); MEAN CORPUSCULAR VOLUME 91.8 fl (80.0-96.0); PLATELET COUNT, AUTOMATED 178 10^3/uL (150-450); WHITE BLOOD COUNT 15.6 10^3/uL (4.0-10.0)
[2021-08-15 09:41] LABS: MAGNESIUM LEVEL 1.7 MG/DL (1.8-2.4); PHOSPHORUS LEVEL 2.8 MG/DL (2.5-4.9)
[2021-08-15 09:45] LABS: ALBUMIN 2.5 GM/DL (3.2-5.2); BILIRUBIN,TOTAL 2.2 MG/DL (0.2-1.0); CALCIUM LEVEL 8.3 MG/DL (8.8-10.2); CREATININE FOR GFR 1.44 MG/DL (0.55-1.30); GLOMERULAR FILTRATION RATE 38.4 (>45); POTASSIUM SERUM 3.8 MEQ/L (3.5-5.1); TOTAL PROTEIN 5.1 GM/DL (6.4-8.2)
[2021-08-15] MEDS ORDERED: MAGNESIUM OXIDE 400MG TAB (MAG-OX) PO ONE (10:45)
[2021-08-15] MEDS ORDERED: SPIR-10 PO (13:57)
[2021-08-15] MEDS ORDERED: FURO20TA2 PO (13:57)
[2021-08-16] MEDS ORDERED: MIDO5TA PO (21:35)
[2021-08-16] MEDS ORDERED: BOUDPST TOP (21:35)
[2021-08-16] MEDS ORDERED: PATIENT COMMENT (21:35)
[2021-08-16] MEDS ORDERED: LACT20EL PO (21:35)
[2021-08-16] MEDS ORDERED: FURO20TA2 PO (21:35)
[2021-08-16] MEDS ORDERED: SPIR-10 PO (21:35)
== END 2021-08-15 16:15 | disposition home health service (06) | DRG 432 ==
LOC: EDBD 11:34 → M ED 11:34 → M ED INP 13:17 → M MS5PR 18:25 → M PCU 08-07 01:55 → M MSPAV 08-14 18:59
PROVIDERS: ADMIT General Practice; ATTEND Internal Medicine
PROC: 0W9G3ZX Drainage of Peritoneal Cavity, Percutaneous Approach, Diagnostic (ICD-10-PCS; 2021-08-06)
PROC: 02HV33Z Insertion of Infusion Device into Superior Vena Cava, Percutaneous Approach (ICD-10-PCS; principal; 2021-08-08 12:00)
DX: K70.31 Alcoholic cirrhosis of liver with ascites (principal); K72.00 Acute and subacute hepatic failure without coma; K76.7 Hepatorenal syndrome; K76.6 Portal hypertension; N17.9 Acute kidney failure, unspecified; E87.1 Hypo-osmolality and hyponatremia; D68.4 Acquired coagulation factor deficiency; E87.2 Acidosis; I47.2 Ventricular tachycardia; R63.0 Anorexia; M16.0 Bilateral primary osteoarthritis of hip; F32.A Depression, unspecified; Z98.41 Cataract extraction status, right eye; F17.210 Nicotine dependence, cigarettes, uncomplicated; R74.01 Elevation of levels of liver transaminase levels; E83.51 Hypocalcemia; E83.42 Hypomagnesemia; E87.6 Hypokalemia; I71.4 Abdominal aortic aneurysm, without rupture; D25.9 Leiomyoma of uterus, unspecified; N83.202 Unspecified ovarian cyst, left side; K70.11 Alcoholic hepatitis with ascites; F10.20 Alcohol dependence, uncomplicated; E78.5 Hyperlipidemia, unspecified; D50.9 Iron deficiency anemia, unspecified; R94.31 Abnormal electrocardiogram [ECG] [EKG]; Z79.899 Other long term (current) drug therapy; Z20.822 Contact with and (suspected) exposure to COVID-19; I95.9 Hypotension, unspecified; D72.829 Elevated white blood cell count, unspecified; L98.411 Non-pressure chronic ulcer of buttock limited to breakdown of skin

== ENCOUNTER 2021-08-16 18:24 | Inpatient (IN) | payer MEDICARE, MEDICAID ==
[~2021-08-16] VITALS: Ht 160 cm; Wt 70.5 kg
[~2021-08-16 18:24] MED LIST changes: +BOUDPST TOP; +LACT20EL PO; +OMEP-221 PO; +POTA20TA6 PO; +SPIR-10 PO; +SPIR50TA4 PO
[2021-08-16] MEDS ORDERED: LORazepam 2 MG/ML VIAL IV STA (18:32)
[2021-08-16 18:43] LABS: ABG O2 SATURATION 99.7 % (95.0-99.0); ABG PARTIAL PRESSURE CO2 25.6 mmHg (35.0-45.0); ABG PARTIAL PRESSURE O2 338.5 mmHg (75.0-100.0); ABG STANDARD HCO3 14.4 MEQ/L (22.0-26.0); ABG TOTAL CO2 12.7 MEQ/L (23.0-31.0); ABG pH (ARTERIAL) 7.287 UNITS (7.350-7.450)
[2021-08-16 18:49] LABS: BASO # 0.1 10^3/uL (0.0-0.2); BASO % 0.3 % (0.0-1.0); EOS # 0.1 10^3/uL (0.0-0.5); EOS % 0.5 % (0.0-3.0); HEMATOCRIT 39.5 % (36.0-47.0); HEMOGLOBIN 12.7 g/dl (12.0-15.5); LYMPH % 20.8 % (24.0-44.0); MEAN CORPUSCULAR HEMOGLOBIN 30.2 pg (27.0-33.0); MEAN CORPUSCULAR HGB CONC 32.2 g/dl (32.0-36.5); MEAN CORPUSCULAR VOLUME 93.8 fl (80.0-96.0); MONO % 11.3 % (2.0-8.0); NEUTROPHILS # 12.7 10^3/uL (1.5-8.5); NEUTROPHILS % 65.5 % (36.0-66.0); PLATELET COUNT, AUTOMATED 203 10^3/uL (150-450); RED BLOOD COUNT 4.21 10^6/uL (4.00-5.40); WHITE BLOOD COUNT 19.4 10^3/uL (4.0-10.0)
[2021-08-16 19:03] LABS: INR 1.43; PROTHROMBIN TIME 17.8 SECONDS (12.7-14.5)
[2021-08-16 19:04] LABS: PARTIAL THROMBOPLASTIN TIME 35.3 SECONDS (25.9-37.0)
[2021-08-16] MEDS ORDERED: levETIRAcetam INJection 1,000 MG in D5W 100 ML IV ONE (19:10)
--- NOTE | 2021-08-16 19:10 | REP ---
INDICATION: Altered Mental Status COMPARISON: 08/07/2021 TECHNIQUE: Portable AP view of the chest FINDINGS: Increased pulmonary vascular markings with cephalization, increased interstitial markings, bibasilar opacities and suspected small pleural effusions most compatible with early CHF. No pneumothorax. Skeletal structures intact. IMPRESSION: Findings suggest early CHF. Differential diagnosis includes multifocal pneumonia. <Electronically signed by Martin Yeager > 08/16/21 [id number]
[2021-08-16 19:17] LABS: OSMOLALITY SERUM 282 MOSM/KG (280-301)
[2021-08-16 19:21] LABS: MONO # 2.2 10^3/uL (0.0-0.8)
[2021-08-16 19:30] LABS: AMPHETAMINES LEVEL URINE NEGATIVE (NEGATIVE); BARBITURATES URINE NEGATIVE (NEGATIVE); BENZODIAZEPINES URINE NEGATIVE (NEGATIVE); CANNABINOIDS URINE NEGATIVE (NEGATIVE); COCAINE METABOLITE URINE NEGATIVE (NEGATIVE); METHADONE URINE NEGATIVE (NEGATIVE); OPIATES URINE NEGATIVE (NEGATIVE); PHENCYCLIDINE URINE NEGATIVE (NEGATIVE)
[2021-08-16] MEDS ORDERED: LACTULOSE 20 GM/30 ML SYRUP UD PR ONE (19:30)
[2021-08-16 19:34] LABS: ACETAMINOPHEN LEVEL < 2.0 UG/ML (10.0-30.0); ALBUMIN 2.8 GM/DL (3.2-5.2); ALT/SGPT 64 U/L (12-78); BILIRUBIN,DIRECT 1.2 MG/DL (0.0-0.2); BILIRUBIN,TOTAL 2.6 MG/DL (0.2-1.0); BLOOD UREA NITROGEN 26 MG/DL (7-18); CARBON DIOXIDE LEVEL 16 MEQ/L (21-32); CHLORIDE LEVEL 105 MEQ/L (98-107); CREATININE FOR GFR 1.84 MG/DL (0.55-1.30); ETHYL ALCOHOL (ETHANOL) < 0.003 % (0.000-0.010); GLUCOSE, FASTING 120 MG/DL (70-100); SALICYLATE LEVEL < 1.7 MG/DL (5.0-30.0); SODIUM LEVEL 135 MEQ/L (136-145); TOTAL PROTEIN 5.8 GM/DL (6.4-8.2)
[2021-08-16 19:36] LABS: RSV AMPLIFICATION NEGATIVE (NEGATIVE)
[2021-08-16] MEDS ORDERED: VANCOMYCIN HCL 1,250 MG in IV FLUID PLACE HOLDER 1 EA IV ONE (19:40)
[2021-08-16] MEDS ORDERED: NS 1,000 ML IV ONE (19:45)
--- NOTE | 2021-08-16 19:48 | REPVR ---
PROCEDURE INFORMATION: Exam: CT Head Without Contrast Exam date and time: 08/16/2021 7:12 PM Age: 71 years old Clinical indication: Altered mental status/memory loss TECHNIQUE: Imaging protocol: Computed tomography of the head without contrast. Radiation optimization: All CT scans at this facility use at least one of these dose optimization techniques: automated exposure control; mA and/or kV adjustment per patient size (includes targeted exams where dose is matched to clinical indication); or iterative reconstruction. COMPARISON: CT Head without contrast 08/06/2021 12:24 PM FINDINGS: Brain: There is mild diffuse cerebellar atrophy. Mild diffuse parenchymal atrophy. No significant white matter disease. Cerebral ventricles: No ventriculomegaly. Paranasal sinuses: Visualized sinuses are unremarkable. No fluid levels. Mastoid air cells: Visualized mastoid air cells are well aerated. Bones/joints: Unremarkable. No acute fracture. Soft tissues: Unremarkable. IMPRESSION: 1. There is mild diffuse cerebellar and cerebral atrophy without significant white matter disease. 2. No acute intracranial findings. Electronically signed by: Faheem Raines On 08/16/2021 19:47:36 PM
[2021-08-16 20:14] LABS: D-DIMER QUANT 2952.6 ng/ml (<500)
[2021-08-16 20:32] LABS: C REACTIVE PROTEIN QUANTITATIV 1.62 MG/DL (0.00-0.30); FERRITIN 102 NG/ML (8-252); LDH LACTATE DEHYDROGENASE 383 U/L (84-246); MAGNESIUM LEVEL 1.6 MG/DL (1.8-2.4)
[2021-08-16] MEDS ORDERED: VANCOMYCIN HCL 750 MG, VIAL MATE ADAPTER 1 EACH in NS 250 ML IV ONE (21:00)
[2021-08-16 21:04] LABS: ABG BASE EXCESS -8.5 (-2.0-2.0); ABG HCO3 18.9 MEQ/L (22.0-26.0); ABG O2 SATURATION 98.9 % (95.0-99.0); ABG PARTIAL PRESSURE CO2 46.5 mmHg (35.0-45.0); ABG PARTIAL PRESSURE O2 153.2 mmHg (75.0-100.0); ABG STANDARD HCO3 17.7 MEQ/L (22.0-26.0); ABG TOTAL CO2 20.3 MEQ/L (23.0-31.0)
[2021-08-16 21:06] LABS: ABG pH (ARTERIAL) 7.227 UNITS (7.350-7.450)
[2021-08-16] MEDS ORDERED: NS 1,000 ML in IV 1 EA IV ONE (21:30)
[2021-08-16] MEDS ORDERED: PATIENT COMMENT (21:35)
[2021-08-16] MEDS ORDERED: LACT20EL PO (21:35)
[2021-08-16] MEDS ORDERED: BOUDPST TOP (21:35)
[2021-08-16] MEDS ORDERED: MIDO5TA PO (21:35)
[2021-08-16] MEDS ORDERED: FURO20TA2 PO (21:35)
[2021-08-16] MEDS ORDERED: SPIR-10 PO (21:35)
[2021-08-16] MEDS ORDERED: HOME MED LIST COMPLETE! XX SCH (21:40)
[2021-08-16] MEDS ORDERED: VANCOMYCIN HCL 500 MG in D5W MINI-BAG PLUS 100 ML IV ONE (22:00)
[2021-08-16 22:52] LABS: VENOUS BASE EXCESS -8.1 (-2.0-2.0); VENOUS HCO3 20.1 MEQ/L (23.0-27.0); VENOUS O2 SATURATION 67.8 % (60.0-80.0); VENOUS PARTIAL PRESSURE CO2 52.7 mmHg (38.0-50.0); VENOUS PH 7.199 UNITS (7.330-7.430); VENOUS STANDARD HCO3 17.4 MEQ/L; VENOUS TOTAL CO2 21.7 MEQ/L (24.0-28.0)
[2021-08-16] MEDS ORDERED: ETOMIDATE INJ 20MG/10ML VIAL IV ONE (23:00)
[2021-08-16] MEDS ORDERED: SUCCINYLCHOLINE INJ 200 MG/10 ML VIAL (J0330) IV ONE (23:00)
[2021-08-16] MEDS ORDERED: propofoL 1,000 MG in IV 1 EA IV SCH (23:25)
[2021-08-16] MEDS ORDERED: PROPOFOL 1,000 MG/100 ML VIAL As Ordered ONE (23:31)
[2021-08-16] MEDS ORDERED: IPRATROPIUM 0.5MG/ALBUTEROL 2.5MG INH SOL UD 3ML (DUONEB) As Ordered ONE (23:52)
[2021-08-17] VITALS (59 sets, daily range): BP systolic 72–120; BP diastolic 45–59
[2021-08-17] MEDS ORDERED: MIDAZOLAM INJ 2MG/2ML VIAL (J2250 PER 1MG) IV STA ×2 (00:01→00:33)
[2021-08-17] MEDS ORDERED: REFRIGERATOR IV KEYS XX PRN ×2 (00:05→20:05)
[2021-08-17] MEDS: LR 1,000 ML IV SCH ×2 (00:20→12:39)
[2021-08-17] MEDS ORDERED: MIDAZOLAM HCL 100 MG in D5W 80 ML IV SCH ×2 (00:30)
--- NOTE | 2021-08-17 00:37 | REPVR ---
PROCEDURE INFORMATION: Exam: XR Chest Exam date and time: 08/16/2021 11:45 PM Age: 71 years old Clinical indication: Device placement; Other: Post intubation TECHNIQUE: Imaging protocol: XR of the chest. Views: 1 view. COMPARISON: CR PORTABLE CHEST X-RAY 08/16/2021 6:43 PM FINDINGS: Tubes, catheters and devices: Endotracheal tube lies 3 cm above the erik. Nasogastric tube extends into the stomach. Lungs: Lungs are diffusely hypoexpanded. No evidence of pulmonary edema. Stable medial right basilar opacity. Pleural spaces: Pleural scarring or small pleural effusions at the lung bases. No pneumothorax. Heart/Mediastinum: Heart and mediastinal contours are normal, given the degree of inflation. Bones/joints: Osseous structures show no concerning abnormality. Old distal right clavicle fracture is noted Soft tissues: No asymmetry of the extrathoracic soft tissues. IMPRESSION: 1. Small pleural effusions or basilar pleural scarring. No active pulmonary edema. 2. Atelectasis, scarring or consolidation at the medial right lung base, stable since the prior exam. Electronically signed by: Gumaro Singh On 08/17/2021 00:37:03 AM
[2021-08-17 01:02] LABS: ABG PARTIAL PRESSURE CO2 28.3 mmHg (35.0-45.0)
[2021-08-17 01:03] LABS: ABG BASE EXCESS -9.6 (-2.0-2.0); ABG HCO3 14.8 MEQ/L (22.0-26.0); ABG O2 SATURATION 99.7 % (95.0-99.0); ABG STANDARD HCO3 16.8 MEQ/L (22.0-26.0); ABG TOTAL CO2 15.7 MEQ/L (23.0-31.0); ABG pH (ARTERIAL) 7.337 UNITS (7.350-7.450)
[2021-08-17 01:04] LABS: ABG PARTIAL PRESSURE O2 357.8 mmHg (75.0-100.0)
[2021-08-17] MEDS: MIDAZOLAM INJ 2MG/2ML VIAL (J2250 PER 1MG) IV PRN ×3 (01:21→19:23)
--- NOTE | 2021-08-17 02:00 | HPEPDOC ---
[facility] Medical History & Physical Date of Admission Aug 17, 2021 Date of Service: Aug 17, 2021 History and Physical REASON FOR CRITICAL CARE CONSULTATION/CHIEF COMPLAINT: Respiratory failure HISTORY OF PRESENT ILLNESS: History obtained from the chart. Patient is a 71-year-old female with a past medical history of alcoholic liver cirrhosis, hepatic encephalopathy, abdominal aortic aneurysm, anemia, recurrent ascites and portal hypertension who per the ED report presented to the hospital with altered mental status. The patient was brought in by ambulance after having a tonic-clonic seizures at home. Upon arrival in the ER she was hemodynamically stable however there was question whether or not she was protecting her airway. Her blood gas revealed that she had a metabolic acidosis and that her Covid PCR was positive. She was subsequently intubated for airway protection due to her post ictal state. PAST MEDICAL HISTORY: ETOH liver cirrhosis w recurrent ascites Hepatic encephalopathy Duodenal lipomas Diverticulosis Colon polyps s/p clips Dr. her Infrarenal AAA 2.6cm x 2.6 cm Uterine fibroids 1.7cm Left ovarian cyst T11-L1 compression wedge fractures Bilateral hip osteoarthritis Umbilical hernia Depression Hyponatremia Acute Renal failure Dyslipidemia Hypokalemia Iron deficiency anemia Abnormal EKG w prolonged QT PAST SURGICAL HISTORY: Cataract removal from right eye 12/16/2016. Colonoscopy Dr. Dmitry jorge colonic polypectomy/clips SOCIAL HISTORY: Active chronic smoker, 1 ppd hx of etoh use disorder, drinks 2-3 glasses of wine per week. denies illicit drug use . Unemployed. On SSI. FAMILY HISTORY: Mother 70 y/o. complications of AAA repair Son and daughter-depression ALLERGIES: Please see below. HOME MEDICATIONS: Please see below. REVIEW OF SYSTEMS: Unable to obtain as patient is intubated PHYSICAL EXAMINATION: VITAL SIGNS: Please see below. GENERAL APPEARANCE: In no distress on the ventilator HEENT: ET tube in place. No thyromegaly, trachea midline, PERRLA. normal mucous membranes RESPIRATORY: good air entry. Rhonchi bilaterally CARDIOVASCULAR: +s1 s2, no murmurs. ABDOMEN: nontender, not distended, +BS EXTREMITIES: no edema or erythema. palpable distal pulses SKIN: no rash, no purpura NEUROLOGICAL: Sedated but moves all extremities and her movements are purposeful. LABS/IMAGING: WBC 19.4, hemoglobin 12.7, platelets 203. INR 1.43 D-dimer 2952 UA negative IMPRESSION: The most critical problems requiring my immediate presence at bedside are: 1. Acute hypoxic restaurant failure intubated for airway protection 2. Tonic-clonic seizure cannot rule out alcohol withdrawal syndrome 3. Lactic acidosis improved 4. LATASHA 5. History of liver cirrhosis with portal hypertension 6. Sepsis present on admission 7. 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 Keppra for now. Thiamine and folic acid supplementation.. PULM: HOB 30 degrees. Maintain Sp02 94-98%. Titrate down oxygen as tolerated. Vent changes as follows: Respiratory rate 20, PEEP eight FiO2 80% CARDIO: Maintain MAPs 60-65. LR 75 cc an hour GI: GI ppx. N.p.o. RENAL: monitor lytes. ID: Empiric antibiotics with vancomycin and cefepime, blood culture and sputum culture and will de-escalate accordingly ENDO: Monitor FS per routine. Goal range 140-180. HEME: DVT ppx LINES/CATHETERS: Femoral central line. And Soria catheter CODE STATUS: Full code. DISPOSITION: ICU. A total of 70 minutes of critical care time was spent on patient care, not including procedures Vital Signs Vital Signs Date Time Temp Pulse Resp B/P (MAP) Pulse Ox O2 Delivery O2 Flow Rate FiO2 08/17/21 01:09 75 26 100 Ventilator 08/17/21 01:05 113/64 (80) 08/16/21 23:31 40 08/16/21 23:09 6.0 08/16/21 18:32 99.4 Laboratory Data Labs 24H Laboratory Tests 2 08/16/21 18:32: Immature Granulocyte % (Auto) 1.6, Neutrophils (%) (Auto) 65.5, Lymphocytes (%) (Auto) 20.8L, Monocytes (%) (Auto) 11.3H, Eosinophils (%) (Auto) 0.5, Basophils (%) (Auto) 0.3, Neutrophils # (Auto) 12.7H, Lymphocytes # (Auto) 4.0, Monocytes # (Auto) 2.2H, Eosinophils # (Auto) 0.1, Basophils # (Auto) 0.1, Nucleated Red Blood Cells % (auto) 0.0, Prothrombin Time 17.8H, Prothromb Time International Ratio 1.43, Activated Partial Thromboplast Time 35.3, Fibrinogen 235, D-Dimer, Quantitative 2952.60H, Anion Gap 14, Glomerular Filtration Rate 29.0L, Osmolality 282, Lactic Acid Level 9.1*H, Calcium Level 8.0L, Magnesium Level 1.6 L, Ferritin 102, Total Bilirubin 2.6H, Direct Bilirubin 1.2H, Aspartate Amino Transf (AST/SGOT) 75H, Alanine Aminotransferase (ALT/SGPT) 64, Alkaline Phosphatase 164H, Ammonia 90H, Lactate Dehydrogenase 383H, C-Reactive Protein, Quantitative 1.62H, Total Protein 5.8L, Albumin 2.8L, Albumin/Globulin Ratio 0.9L, Thyroid Stimulating Hormone (TSH) 3.650, Salicylates Level < 1.7L, Acetaminophen Level < 2.0L, Ethyl Alcohol Level < 0.003 08/16/21 18:36: Blood Gas Bicarbonate Standard 14.4L, Arterial Blood pH 7.287L, Arterial Blood Partial Pressure CO2 25.6L, Arterial Blood Partial Pressure O2 338.5H, Arterial Blood Total CO2 12.7L, Arterial Blood HCO3 12.0L, Arterial Blood Base Excess - 13.0L, Arterial Blood Oxygen Saturation 99.7H 08/16/21 18:48: Coronavirus (COVID-19)(PCR) POSITIVEA, Influenza Type A (RT-PCR) NEGATIVE, Influenza Type B (RT-PCR) NEGATIVE, Respiratory Syncytial Virus (PCR) NEGATIVE 08/16/21 18:49: Urine Color YELLOW, Urine Appearance CLEAR, Urine pH 5.0, Urine Specific Cylinder 1.008, Urine Protein NEGATIVE, Urine Glucose (UA) NEGATIVE, Urine Ketones NEGATIVE, Urine Blood NEGATIVE, Urine Nitrite NEGATIVE, Urine Bilirubin NEGATIVE, Urine Urobilinogen 0.2, Urine Leukocyte Esterase NEGATIVE, Urine WBC (Auto) 0, Urine RBC (Auto) 1, Urine Hyaline Casts (Auto) 25, Urine Bacteria (Auto) NEGATIVE, Urine Squamous Epithelial Cells 0, Urine Mucus (Auto) SMALL, Urine Sperm (Auto) , Urine Opiates Screen NEGATIVE, Urine Methadone Screen NEGATIVE, Urine Barbiturates Screen NEGATIVE, Urine Phencyclidine Screen NEGATI VE, Urine Amphetamines Screen NEGATIVE, Urine Benzodiazepines Screen NEGATIVE, Urine Cocaine Metabolite Screen NEGATIVE, Urine Cannabinoids Screen NEGATIVE 08/16/21 18:50: POC Troponin I (Misc) 0.02 08/16/21 20:55: Blood Gas Bicarbonate Standard 17.7L, Arterial Blood pH 7.227*L, Arterial Blood Partial Pressure CO2 46.5H, Arterial Blood Partial Pressure O2 153.2H, Arterial Blood Total CO2 20.3L, Arterial Blood HCO3 18.9L, Arterial Blood Base Excess -8.5L, Arterial Blood Oxygen Saturation 98.9 08/16/21 21:52: Lactic Acid Level 1.5 08/16/21 22:47: Blood Gas Bicarbonate Standard 17.4, Venous Blood pH 7.199L, Venous Blood Partial Pressure CO2 52.7H, Venous Blood Partial Pressure O2 42.0, Venous Blood Total Carbon Dioxide 21.7L, Venous Blood HCO3 20.1L, Venous Blood Oxygen Saturation 67.8, Venous Blood Base Excess -8.1L 08/16/21 23:22: POC pH (Misc Panel) 7.222*L, POC Base Excess (Misc Panel) -7.0L, POC Saturated Percent O2 (Misc) 100H, POC pO2 (Misc Panel) 238.0H, POC pCO2 (Misc Panel) 49.6H, POC HCO3 (Misc Panel) 20.4L, POC Total CO2 (Misc Panel) 22.0L 08/17/21 00:49: Blood Gas Bicarbonate Standard 16.8L, Arterial Blood pH 7.337L, Arterial Blood Partial Pressure CO2 28.3L, Arterial Blood Partial Pressure O2 357.8H, Arterial Blood Total CO2 15.7L, Arterial Blood HCO3 14.8L, Arterial Blood Base Excess - 9.6L, Arterial Blood Oxygen Saturation 99.7H CBC/BMP Laboratory Tests 08/16/21 18:32 Microbiology Microbiology 08/16/21 Blood Culture, Received Pending Home Medications Scheduled Buspirone HCl (Buspirone HCl) 10 Mg Tablet, 10 MG PO BID Citalopram Hydrobromide (Citalopram HBr) 20 Mg Tablet, 20 MG PO DAILY Ferrous Sulfate (Ferrous Sulfate) 325 Mg Tablet, 325 MG PO DAILY Folic Acid (Folic Acid) 1 Mg Tablet, 1 MG PO DAILY Furosemide (Furosemide) 20 Mg Tablet, 20 MG PO DAILY Lactulose (Lactulose) 10 Gm/15 Ml Solution, 15 ML PO TID Midodrine HCl (Midodrine HCl) 5 Mg Tablet, 10 MG PO TID 0800, 1200, 1600 Nicotine (Nicotine Patch) 21 Mg Patch.td24, 21 MG TD DAILY Omeprazole (Omeprazole) 40 Mg Capsule.dr 40 MG PO DAILY Spironolactone (Spironolactone) 25 Mg Tablet, 25 MG PO DAILY Thiamine HCl (Vitamin B-1) 100 Mg Tablet, 100 MG PO DAILY Scheduled PRN Zinc Oxide (Boudreauxs) 16% Oint...g., 1 DOSE TOP Q2H PRN for REDNESS/IRRITATION APPLY TO [facility] Miscellaneous Medications [Patient Comment] MED REC COMPLETED VIA PREVIOUS DISCHARGE PAPERWORK (08/15/21) Allergies Coded Allergies: No Known Allergies (Unverified , 07/14/21) A-FIB/CHADSVASC A-FIB History Current/History of A-Fib/PAF?: No Current PO Anticoag Therapy: No RYANN TEJEDA MD Aug 17, 2021 02:00
[2021-08-17 03:28] LABS: BASO % 0.1 % (0.0-1.0); HEMATOCRIT 31.3 % (36.0-47.0); LYMPH # 1.1 10^3/uL (1.5-5.0); LYMPH % 6.1 % (24.0-44.0); MEAN CORPUSCULAR HEMOGLOBIN 30.1 pg (27.0-33.0); MEAN CORPUSCULAR HGB CONC 32.9 g/dl (32.0-36.5); MEAN CORPUSCULAR VOLUME 91.5 fl (80.0-96.0); MONO # 1.4 10^3/uL (0.0-0.8); MONO % 7.9 % (2.0-8.0); NEUTROPHILS # 15.1 10^3/uL (1.5-8.5); NEUTROPHILS % 84.7 % (36.0-66.0); PLATELET COUNT, AUTOMATED 160 10^3/uL (150-450); RED BLOOD COUNT 3.42 10^6/uL (4.00-5.40); WHITE BLOOD COUNT 17.8 10^3/uL (4.0-10.0)
[2021-08-17] MEDS ORDERED: fentaNYL CITRATE 1,000 MCG in NS 80 ML IV SCH (03:30)
[2021-08-17 03:33] LABS: HEMOGLOBIN 10.3 g/dl (12.0-15.5)
[2021-08-17 03:45] LABS: ALBUMIN 2.3 GM/DL (3.2-5.2); CALCIUM LEVEL 7.5 MG/DL (8.8-10.2); CREATININE FOR GFR 1.46 MG/DL (0.55-1.30); GLOMERULAR FILTRATION RATE 37.8 (>45); MAGNESIUM LEVEL 1.5 MG/DL (1.8-2.4); PHOSPHORUS LEVEL 3.7 MG/DL (2.5-4.9); POTASSIUM SERUM 3.1 MEQ/L (3.5-5.1); TOTAL PROTEIN 4.8 GM/DL (6.4-8.2)
[2021-08-17] MEDS ORDERED: CEFEPIME HCL 1 GM in D5W MINI-BAG PLUS 50 ML IV SCH (05:00)
[2021-08-17] MEDS: HEPARIN SOD (PORCINE) 5000UNITS/ML 1ML VIAL/SYRINGE SC SCH ×3 (06:04→22:51)
[2021-08-17] MEDS: IPRATROPIUM 0.5MG/ALBUTEROL 2.5MG INH SOL UD 3ML (DUONEB) NEB SCH ×4 (07:49→20:20)
[2021-08-17] MEDS ORDERED: levETIRAcetam INJection 500 MG in D5W MINI-BAG PLUS 100 ML IV SCH (08:00)
[2021-08-17] MEDS: PANTOPRAZOLE 40MG VIAL (C9113 PER 1) IV SCH (08:08)
[2021-08-17] MEDS: THIAMINE 200MG 2ML VIAL IM SCH (08:09)
[2021-08-17] MEDS: CHLORHEXIDINE GLUCONATE 0.12 % 15ML UDC (PERIDEX ORAL RINSE) MT SCH ×2 (08:09→21:34)
--- NOTE | 2021-08-17 08:31 | ECGEPIP ---
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
--- NOTE | 2021-08-17 08:32 | REP ---
INDICATION: INTUBATED COMPARISON: 08/16/2021 TECHNIQUE: Portable AP view of the chest FINDINGS: Tracheostomy is at the erik and warrants re-evaluation/repositioning. Nasogastric tube courses below left hemidiaphragm in satisfactory position. Poor inspiratory effort limits evaluation. Perihilar and lower lobe airspace disease (left greater than right) suggested. Small layering effusions cannot be excluded. No pneumothorax. Skeletal structures appear intact. IMPRESSION: 1. Endotracheal tube warrants repositioning. 2. Perihilar and lower lobe opacities suggested. <Electronically signed by Martin Yeager > 08/17/21 [id number]
[2021-08-17] MEDS: FOLIC ACID 1 MG in NS 50 ML IV SCH (09:16)
[2021-08-17] MEDS ORDERED: KCL 20MEQ IN 100ML SWI (KRUN) 20 MEQ in IV 1 EA IV SCH ×2 (10:00)
--- NOTE | 2021-08-17 10:16 | IPNPDOC ---
Text Note Date of Service The patient was seen on 08/17/21. NOTE CRITICAL CARE PROGRESS NOTE: SUBJECTIVE: Patient is seen and examined at bedside. Patient remains on mechanical ventilation. Patient having low blood pressure maps in the 50s to low 60s. Currently on Versed drip at 6, LR 75 cc an hour. Urine output slightly decreased this morning. She is n.p.o. and she is afebrile. She is having diarrhea and she has rectal tube in place. All other ROS are negative except as mentioned above PHYSICAL EXAMINATION: VITAL SIGNS: Please see below. GENERAL APPEARANCE: In extremis on mechanical ventilation HEENT: ET tube in place. No thyromegaly, trachea midline, PERRLA. normal mucous membranes RESPIRATORY: CTA B/L, good air entry. CARDIOVASCULAR: +s1 s2, no murmurs. ABDOMEN: nontender, not distended, +BS EXTREMITIES: no edema or erythema. palpable distal pulses SKIN: no rash, no purpura NEUROLOGICAL: Moves all extremities with purposeful movements. Does not follow commands. Brainstem reflex intact. PERTINENT LABS/IMAGING: Chest x-ray from this morning bibasilar opacities, ET tube and OG tube are in satisfactory position. IMPRESSION: The most critical problems requiring my immediate presence at bedside are: 1. Acute hypoxic respiratory failure intubated for airway protection on minimal vent support 2. Tonic-clonic seizure, new onset, no active etoh abuse per sister 3. Lactic acidosis improved 4. LATASHA oliguric suspect prerenal from diuretic use, improving with IVFs 5. History of liver cirrhosis with portal hypertension on diuretics and lactulose outpatient 6. Sepsis present on admission, possible aspiration pneumonia/pneumonitis 7. COVID-19 PCR positive 8. 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 Keppra for now. Thiamine and folic acid s upplementation. EEG PULM: HOB 30 degrees. Maintain Sp02 88-96 %. ABG pH 7.33 CO2 28 O2 357 on 26/ 400/100/15. Vent changes as follow: We will perform spontaneous breathing trial on pressure support ventilation of 8 and PEEP 5, FiO2 40% CARDIO: Accept lower MAPs 55-60. LR 75 cc an hour. Start midodrine 10 mg every 8 which is a home medication GI: GI ppx. N.p.o. Trickle feeds will be started if not extubated today RENAL: Replete magnesium and potassium. ID: [email or web address] for possible aspiration, blood culture and sputum culture and will de- escalate accordingly. MRSA nare. Start remdesivir course. We will hold off on Decadron as I do not suspect she is having Covid pneumonia at this time and her positive Covid test is more of an incidental finding. ENDO: Monitor FS per routine. Goal range 140-180. HEME: DVT ppx LINES/CATHETERS: Right femoral central line. Soria catheter CODE STATUS: Full code. DISPOSITION: ICU. I spoke with the Sister Ms Deal who accordingly to her is the HCP and this was agreed upon with the daughter. A total of 50 minutes of critical care time was spent on patient care, not including procedures VS,Fishbone, I+O VS, Fishbone, I+O Laboratory Tests 08/16/21 18:32 08/17/21 03:07 Vital Signs Date Time Temp Pulse Resp B/P (MAP) Pulse Ox O2 Delivery O2 Flow Rate FiO2 08/17/21 09:16 72 15 97 30 08/17/21 07:00 83/53 (63) 08/17/21 05:00 97.4 Ventilator 08/16/21 23:09 6.0 I&O- Last 24 Hours up to 6 AM 08/17/21 06:00 Intake Total 1495 ml Output Total 70 ml Balance 1425 ml RYANN TEJEDA MD Aug 17, 2021 10:16
[2021-08-17] MEDS: MAG SULF 1GM/100ML (MAG RUN) 1 GM in IV 1 EA IV SCH ×3 (10:21→12:00)
[2021-08-17] MEDS ORDERED: ETOMIDATE INJ 20MG/10ML VIAL ONE (11:18)
[2021-08-17] MEDS ORDERED: SUCCINYLCHOLINE 100 MG/5 ML SYRINGE (J0330) ONE (11:18)
[2021-08-17] MEDS: MIDODRINE 5 MG TAB PO SCH ×2 (11:30→15:10)
[2021-08-17] MEDS: KCL 20MEQ IN 100ML SWI (KRUN) 20 MEQ in IV 1 EA IV SCH ×4 (12:39→13:15)
[2021-08-17] MEDS ORDERED: REMDESIVIR 200 MG in NS 250 ML IV ONE (13:00)
[2021-08-17] MEDS ORDERED: LACTATED RINGER'S 1000 ML IV ONE ×2 (13:50→15:45)
[2021-08-17] MEDS ORDERED: SODIUM CHLORIDE 0.9% INJ 10 ML SYR IV ONE (14:00)
[2021-08-17] MEDS: LACTULOSE 20 GM/30 ML SYRUP UD PO SCH ×2 (15:10→21:34)
[2021-08-17] MEDS ORDERED: dexmedeTOMidine 200 MCG in IV 1 EA IV SCH (15:45)
[2021-08-17 16:49] LABS: CLOSTRIDIUM DIFFICILE PCR NEGATIVE (NEGATIVE)
[2021-08-17] MEDS: PIPERACILLIN/TAZOBACTAM SOD 3.375 GM in D5W MINI-BAG PLUS 50 ML IV SCH ×2 (17:03→22:51)
[2021-08-17] MEDS ORDERED: LORazepam 2 MG/ML VIAL IV PRN (20:05)
[2021-08-17] MEDS: MIDAZOLAM HCL 100 MG in D5W 80 ML IV SCH (21:22)
[2021-08-17] MEDS: levETIRAcetam INJection 250 MG in D5W 100 ML IV SCH (21:34)
[2021-08-18] VITALS (69 sets, daily range): BP systolic 69–116; BP diastolic 41–71; O2SAT 97
[2021-08-18] MEDS: MIDAZOLAM INJ 2MG/2ML VIAL (J2250 PER 1MG) IV PRN (02:15)
[2021-08-18] MEDS: LR 1,000 ML IV SCH (03:00)
[2021-08-18] MEDS: PIPERACILLIN/TAZOBACTAM SOD 3.375 GM in D5W MINI-BAG PLUS 50 ML IV SCH ×2 (04:09→10:50)
[2021-08-18 04:54] LABS: BASO % 0.2 % (0.0-1.0); EOS % 0.1 % (0.0-3.0); HEMATOCRIT 28.5 % (36.0-47.0); HEMOGLOBIN 9.6 g/dl (12.0-15.5); LYMPH % 11.1 % (24.0-44.0); MEAN CORPUSCULAR HEMOGLOBIN 30.2 pg (27.0-33.0); MEAN CORPUSCULAR HGB CONC 33.7 g/dl (32.0-36.5); MEAN CORPUSCULAR VOLUME 89.6 fl (80.0-96.0); MONO # 1.6 10^3/uL (0.0-0.8); NEUTROPHILS # 14.3 10^3/uL (1.5-8.5); PLATELET COUNT, AUTOMATED 172 10^3/uL (150-450); RED BLOOD COUNT 3.18 10^6/uL (4.00-5.40); WHITE BLOOD COUNT 18.1 10^3/uL (4.0-10.0)
[2021-08-18 05:00] LABS: ALBUMIN 1.9 GM/DL (3.2-5.2); BILIRUBIN,TOTAL 1.6 MG/DL (0.2-1.0); CALCIUM LEVEL 6.8 MG/DL (8.8-10.2); CREATININE FOR GFR 1.56 MG/DL (0.55-1.30); MAGNESIUM LEVEL 1.7 MG/DL (1.8-2.4); PHOSPHORUS LEVEL 3.2 MG/DL (2.5-4.9); POTASSIUM SERUM 3.3 MEQ/L (3.5-5.1); TOTAL PROTEIN 4.2 GM/DL (6.4-8.2)
[2021-08-18] MEDS: HEPARIN SOD (PORCINE) 5000UNITS/ML 1ML VIAL/SYRINGE SC SCH ×3 (05:40→21:55)
[2021-08-18 06:18] LABS: ABG BASE EXCESS -5.8 (-2.0-2.0); ABG HCO3 16.7 MEQ/L (22.0-26.0); ABG O2 SATURATION 97.5 % (95.0-99.0); ABG PARTIAL PRESSURE CO2 23.8 mmHg (35.0-45.0); ABG STANDARD HCO3 19.7 MEQ/L (22.0-26.0); ABG TOTAL CO2 17.4 MEQ/L (23.0-31.0); ABG pH (ARTERIAL) 7.463 UNITS (7.350-7.450)
[2021-08-18] MEDS: IPRATROPIUM 0.5MG/ALBUTEROL 2.5MG INH SOL UD 3ML (DUONEB) NEB SCH (07:15)
[2021-08-18] MEDS: MIDODRINE 5 MG TAB PO SCH ×3 (08:28→15:52)
[2021-08-18] MEDS: LACTULOSE 20 GM/30 ML SYRUP UD PO SCH ×3 (08:28→20:35)
[2021-08-18] MEDS: CHLORHEXIDINE GLUCONATE 0.12 % 15ML UDC (PERIDEX ORAL RINSE) MT SCH (08:28)
[2021-08-18] MEDS: FOLIC ACID 1 MG in NS 50 ML IV SCH (08:29)
[2021-08-18] MEDS: PANTOPRAZOLE 40MG VIAL (C9113 PER 1) IV SCH (08:29)
[2021-08-18] MEDS: levETIRAcetam INJection 250 MG in D5W 100 ML IV SCH ×2 (08:29→20:36)
[2021-08-18] MEDS: THIAMINE 200MG 2ML VIAL IM SCH (08:29)
--- NOTE | 2021-08-18 08:37 | REP ---
INDICATION: INTUBATED COMPARISON: 08/17/2021 TECHNIQUE: Portable AP view of the chest FINDINGS: Endotracheal tube now 2.4 cm above the erik. Nasogastric tube courses below the left hemidiaphragm in satisfactory position. Mediastinum and cardiac silhouette are stable and within normal limits. Lung marshall demonstrate improved aeration. Trace pleural effusion as well as possible retrocardiac consolidation cannot be excluded. IMPRESSION: 1. Improved aeration to the bilateral lung marshall suggested. 2. Cannot exclude small residual right pleural effusion as well as retrocardiac opacity/consolidation. <Electronically signed by Martin Yeager > 08/18/21 [id number]
[2021-08-18] MEDS ORDERED: MAGNESIUM OXIDE 400MG TAB (MAG-OX) PO ONE (10:00)
[2021-08-18] MEDS: NOREPINEPHRINE BITARTRATE 8 MG in D5W 492 ML IV SCH ×2 (10:00→23:20)
[2021-08-18] MEDS ORDERED: POTASSIUM CHLORIDE 10% LIQ 20 MEQ/15 ML UDC PO ONE (10:00)
[2021-08-18] MEDS: SODIUM BICARBONATE 325 MG TAB NG SCH ×3 (10:49→20:36)
--- NOTE | 2021-08-18 11:32 | REP ---
INDICATION: bryant COMPARISON: 08/13/2021 TECHNIQUE: Real time B-mode camara scale ultrasound examination using curved array transducer. FINDINGS: Liver demonstrates cirrhotic changes including recanalized umbilical vein along with significant amount of diffuse ascites. No focal hepatic lesion identified. Pancreas is incompletely evaluated due to interposed bowel gas but visualized portions appear normal. The spleen is normal in size and appearance. Gallbladder demonstrates layering sludge and small gallstones with mild likely chronic gallbladder wall thickening. The common bile duct is again dilated to 8 mm. The bilateral kidneys are normal in reniform shape without hydronephrosis or obvious abnormality. Right kidney measures 9.7 x 5.4 x 4.4 cm. Left kidney measures 11.5 x 4.3 x 5.3 cm. IMPRESSION: 1. Continued evidence for cirrhosis including moderate to significant amount of diffuse ascites. 2. Cholelithiasis and dilated common bile duct to 8 mm unchanged from prior examination. 3. Kidneys without evidence for hydronephrosis. <Electronically signed by Martin Yeager > 08/18/21 [id number]
--- NOTE | 2021-08-18 11:32 | IPNPDOC ---
Text Note Date of Service The patient was seen on 08/18/21. NOTE CRITICAL CARE PROGRESS NOTE: SUBJECTIVE: Patient seen and examined at bedside. She remains on mechanical ventilation. Overnight she had an episode of arm twitching and she was given 1 dose of Ativan. She is afebrile. Her maps have been in the low to mid 50s. She is cur rently on Versed drip at 4. LR 75 cc an hour. She is n.p.o. She is having bowel movements. Her ins are 2078 and outs are 294. She has reduced urine output. Currently no seizure activity. All other ROS are negative except as mentioned above PHYSICAL EXAMINATION: VITAL SIGNS: Please see below. GENERAL APPEARANCE: On mechanical ventilation, comfortable HEENT: ET tube in place no thyromegaly, trachea midline, PERRLA. normal mucous membranes RESPIRATORY: CTA B/L, good air entry. Cough reflex. CARDIOVASCULAR: +s1 s2, no murmurs. ABDOMEN: nontender, not distended, +BS EXTREMITIES: no edema or erythema. palpable distal pulses SKIN: no rash, no purpura NEUROLOGICAL: She is very arousable and she moves all extremities but she does not follow commands. PERTINENT LABS/IMAGING: Chest x-ray today shows no infiltrates. ET tube and OG tube are in satisfactory position. IMPRESSION: The most critical problems requiring my immediate presence at bedside are: 1. Acute hypoxic respiratory failure intubated for airway protection on minimal vent support 2. Tonic-clonic seizure, new onset, no active etoh abuse per sister 3. Lactic acidosis improved 4. LATASHA oliguric suspect, cant rule out hepatorenal syndrome 5. History of liver cirrhosis with portal hypertension on diuretics and l actulose outpatient 6. Sepsis present on admission, possible aspiration pneumonia/pneumonitis 7. COVID-19 PCR positive 8. Hypotension appears chronic in the setting of liver cirrhosis PLAN: STATISTICAL MODELER: Sedation vacation. Keppra for now. EEG. PULM: HOB 30 degrees. Maintain Sp02 88-96 %. Titrate down FiO2 as tolerated. ABG pH 7.46 CO2 23 O2 98 on 420/20/8/30 percent. And changes as follows: R espiratory rate 16, tidal volume 400, PEEP 5. We will perform SBT when patient is more awake. CARDIO: Accept lower MAPs 55-60. DC IV fluid. midodrine 10 mg every 8 which is a home medication Patient is on Levophed 2 mcg. Lactic acid has improved GI: GI ppx. Start tube feeds if patient is not extubated today. Continue with lactulose to titrate 2-3 bowel movements per day. RENAL: We will order renal bladder sono. P.o. bicarb 650 mg 3 times daily. Albumin 1g/kg daily x 2 days renal consult for oliguirc latasha ID: Continue with remdesivir and continue 5-day course We will hold off on starting Decadron as I do not suspect she is having Covid pneumonia at this time and her positive Covid test is more of an incidental finding. We will DC Zosyn as there is no evidence of pneumonia and cultures are negative. MRSA nare negative. ENDO: Monitor FS per routine. Goal range 140-180. HEME: DVT ppx LINES/CATHETERS: Right femoral central line is clean. Soria catheter CODE STATUS: Full code. DISPOSITION: ICU. I spoke with the Sister Ms Deal who accordingly to her is the HCP and this was agreed upon with the daughter. A total of 55 minutes of critical care time was spent on patient care, not including procedures VS,Fishbone, I+O VS, Fishbone, I+O Laboratory Tests 08/18/21 04:19 Vital Signs Date Time Temp Pulse Resp B/P (MAP) Pulse Ox O2 Delivery O2 Flow Rate FiO2 08/18/21 10:40 73 91/58 (69) 95 Ventilator 30 08/18/21 10:00 26 08/18/21 08:00 98.0 08/16/21 23:09 6.0 I&O- Last 24 Hours up to 6 AM 08/18/21 06:00 Intake Total 2670.8 ml Output Total 434 ml Balance 2236.8 ml RYANN TEJEDA MD Aug 18, 2021 11:32
[2021-08-18] MEDS ORDERED: IPRATROPIUM 0.5MG/ALBUTEROL 2.5MG INH SOL UD 3ML (DUONEB) NEB PRN (12:05)
[2021-08-18] MEDS: REMDESIVIR 100 MG in NS 250 ML IV SCH (12:41)
[2021-08-18] MEDS: MIDAZOLAM HCL 100 MG in D5W 80 ML IV SCH (13:52)
[2021-08-18] MEDS: SODIUM CHLORIDE 0.9% INJ 10 ML SYR IV SCH (14:26)
[2021-08-18 15:36] LABS: ABG BASE EXCESS -6.5 (-2.0-2.0); ABG HCO3 17.2 MEQ/L (22.0-26.0); ABG O2 SATURATION 92.2 % (95.0-99.0); ABG PARTIAL PRESSURE CO2 28.8 mmHg (35.0-45.0); ABG PARTIAL PRESSURE O2 67.6 mmHg (75.0-100.0); ABG STANDARD HCO3 19.1 MEQ/L (22.0-26.0); ABG TOTAL CO2 18.1 MEQ/L (23.0-31.0); ABG pH (ARTERIAL) 7.394 UNITS (7.350-7.450)
[2021-08-18] MEDS: rifAXIMin 550 MG TAB (XIFAXAN) PO SCH ×2 (15:51→20:36)
[2021-08-18] MEDS ORDERED: cefTRIAXone SOD 1 GM in D5W MINI-BAG PLUS 50 ML IV SCH (16:00)
[2021-08-18 16:03] LABS: ALBUMIN 2.6 GM/DL (3.2-5.2); BILIRUBIN,TOTAL 1.8 MG/DL (0.2-1.0); CALCIUM LEVEL 7.4 MG/DL (8.8-10.2); CREATININE FOR GFR 1.55 MG/DL (0.55-1.30); GLOMERULAR FILTRATION RATE 35.3 (>45); MAGNESIUM LEVEL 1.9 MG/DL (1.8-2.4); POTASSIUM SERUM 3.3 MEQ/L (3.5-5.1); TOTAL PROTEIN 4.8 GM/DL (6.4-8.2)
--- NOTE | 2021-08-18 16:49 | REP ---
INDICATION: NG placement COMPARISON: 08/18/2021 at 7:56 a.m. TECHNIQUE: Portable AP view of the chest FINDINGS: The endotracheal tube has been removed. Nasogastric tube is in satisfactory position below the left hemidiaphragm. The cardiac silhouette is normal. Retrocardiac left lower lobe atelectasis/consolidation along with right basilar atelectasis is suggested. No definite effusion. No pneumothorax. IMPRESSION: 1. Nasogastric tube in satisfactory position. 2. Left lower lobe/retrocardiac opacity and right lower lobe linear atelectasis noted. <Electronically signed by Martin Yeager > 08/18/21 [id number]
[2021-08-18] MEDS ORDERED: POTASSIUM CHLORIDE 10% LIQ 20 MEQ/15 ML UDC NG ONE (17:00)
[2021-08-19] VITALS (54 sets, daily range): BP systolic 88–146; BP diastolic 53–98
[2021-08-19] MEDS: HEPARIN SOD (PORCINE) 5000UNITS/ML 1ML VIAL/SYRINGE SC SCH ×3 (05:07→21:46)
[2021-08-19 05:23] LABS: BASO % 0.2 % (0.0-1.0); EOS # 0.2 10^3/uL (0.0-0.5); HEMATOCRIT 27.5 % (36.0-47.0); HEMOGLOBIN 9.2 g/dl (12.0-15.5); LYMPH # 2.1 10^3/uL (1.5-5.0); LYMPH % 12.5 % (24.0-44.0); MEAN CORPUSCULAR HEMOGLOBIN 30.1 pg (27.0-33.0); MEAN CORPUSCULAR HGB CONC 33.5 g/dl (32.0-36.5); MEAN CORPUSCULAR VOLUME 89.9 fl (80.0-96.0); MONO # 1.4 10^3/uL (0.0-0.8); MONO % 8.3 % (2.0-8.0); NEUTROPHILS # 12.8 10^3/uL (1.5-8.5); NEUTROPHILS % 77.4 % (36.0-66.0); PLATELET COUNT, AUTOMATED 142 10^3/uL (150-450); RED BLOOD COUNT 3.06 10^6/uL (4.00-5.40); WHITE BLOOD COUNT 16.5 10^3/uL (4.0-10.0)
[2021-08-19 06:34] LABS: ALBUMIN 2.6 GM/DL (3.2-5.2); BILIRUBIN,TOTAL 1.7 MG/DL (0.2-1.0); CALCIUM LEVEL 7.5 MG/DL (8.8-10.2); CREATININE FOR GFR 1.51 MG/DL (0.55-1.30); GLOMERULAR FILTRATION RATE 36.4 (>45); MAGNESIUM LEVEL 1.8 MG/DL (1.8-2.4); POTASSIUM SERUM 3.4 MEQ/L (3.5-5.1)
--- NOTE | 2021-08-19 08:21 | REP ---
INDICATION: INTUBATED COMPARISON: 08/18/2021 TECHNIQUE: Portable AP view of the chest FINDINGS: Nasogastric tube in satisfactory position. Moderate right pleural effusion is suggested along with bibasilar atelectasis (right greater than left). Mediastinum and cardiac silhouette are stable and within normal limits. No pneumothorax. Skeletal structures stable. IMPRESSION: Moderate right pleural effusion and bibasilar atelectasis (right greater than left). <Electronically signed by Martin Yeager > 08/19/21 0818
[2021-08-19] MEDS: rifAXIMin 550 MG TAB (XIFAXAN) PO SCH ×2 (08:52→21:45)
[2021-08-19] MEDS: MIDODRINE 5 MG TAB PO SCH ×3 (08:52→16:20)
[2021-08-19] MEDS: LACTULOSE 20 GM/30 ML SYRUP UD PO SCH ×3 (08:52→21:46)
[2021-08-19] MEDS: SODIUM BICARBONATE 325 MG TAB NG SCH ×3 (08:52→21:45)
[2021-08-19] MEDS: levETIRAcetam INJection 250 MG in D5W 100 ML IV SCH ×2 (08:52→22:04)
[2021-08-19] MEDS: PANTOPRAZOLE 40MG VIAL (C9113 PER 1) IV SCH (08:52)
[2021-08-19] MEDS: cefTRIAXone SOD 2 GM in D5W MINI-BAG PLUS 50 ML IV SCH (11:00)
--- NOTE | 2021-08-19 11:35 | IPNPDOC ---
Text Note Date of Service The patient was seen on 08/19/21. NOTE CRITICAL CARE PROGRESS NOTE: SUBJECTIVE: Patient seen and examined at bedside. There were no overnight events. Patient was extubated yesterday. She is currently on 2 L/min nasal cannula and satting 96%. Her map is 75. She is afebrile. She is having blood-tinged urine. And continues to have decreased urine output. Her Levophed has been off since yesterday evening. She is not currently on any drips. She has NG tube in place and she is tolerating trickle feeds. She is having multiple loose bowel movements and rectal tube is in place All other ROS are negative except as mentioned above PHYSICAL EXAMINATION: VITAL SIGNS: Please see below. GENERAL APPEARANCE: She appears chronically ill HEENT: no thyromegaly, trachea midline, PERRLA. normal mucous membranes RESPIRATORY: CTA B/L, good air entry. CARDIOVASCULAR: +s1 s2, no murmurs. ABDOMEN: Distended but not tender EXTREMITIES: Mild lower extremity edema SKIN: no rash, no purpura NEUROLOGICAL: She is arousable and follows simple commands. Her mental status is much improved since yesterday and she is speaking words PERTINENT LABS/IMAGING: Her chest x-ray from today shows a right base atelectasis and her OG tube is in satisfactory position. IMPRESSION: The most critical problems requiring my immediate presence at bedside are: 1. Acute hypoxic respiratory failure intubated for airway protection resolved and extubated on 08/18/2021 2. Decompensated liver cirrhosis with hepatic encephalopathy and ascites possibly triggered by covid infection, hypokalemia and LATASHA. Interval improvement in mental status. 3. Lactic acidosis improved 4. LATASHA oliguric cant rule out hepatorenal syndrome 5. History of liver cirrhosis with portal hypertension on diuretics and lactulose outpatient 6. Sepsis present on admission, possible aspiration pneumonia/pneumonitis 7. COVID-19 PCR positive 8. Hypotension appears chronic in the setting of liver cirrhosis PLAN: ACCOUNTS RECEIVABLE SPECIALIST: Avoid ACCOUNTS RECEIVABLE SPECIALIST depressants. Continue with Keppra for suspected seizures on presentation. PULM: HOB 30 degrees. Maintain Sp02 92 -96 %. Titrate down FiO2 as tolerated. Chest physical therapy CARDIO: Accept lower MAPs 55-60. midodrine 10 mg every 8 which is a home medication Patient is off pressors. GI: DC Protonix Continue with trophic tube feeds for now Continue with lactulose to titrate 2-3 bowel movements per day. Continue with rifaximin 550 mg every 12 RENAL: Albumin 1g/kg daily x 2 days [day2] renal consult for oliguirc latasha Sodium bicarb 650 every 8 Replete potassium ID: Continue with remdesivir and continue 5-day course We will hold off on starting Decadron as I do not suspect she is having Covid pneumonia at this time and her positive Covid test is more of an incidental finding. She is on Rocephin for possible SBP. Blood cultures are negative and sputum shows normal adrianna. Paracentesis is technically difficult at this time and would likely require sedation which would risk the patient getting reintubated ENDO: Monitor FS per routine. Goal range 140-180. HEME: DVT ppx LINES/CATHETERS: Right femoral central line is clean. If remains off pressors for today will DC femoral line. Soria catheter CODE STATUS: Full code. DISPOSITION: ICU. I spoke with the Sister Ms Deal who accordingly to her is the HCP and this was agreed upon with the daughter. A total of 60 minutes of critical care time was spent on patient care, not including procedures VS,Fishbone, I+O VS, Fishbone, I+O Laboratory Tests 08/18/21 15:27 08/19/21 05:06 Vital Signs Date Time Temp Pulse Resp B/P (MAP) Pulse Ox O2 Delivery O2 Flow Rate FiO2 08/19/21 06:30 80 29 91/67 (75) 96 Nasal Cannula 2.0 08/19/21 06:09 98.2 08/18/21 15:45 28 I&O- Last 24 Hours up to 6 AM 08/19/21 06:00 Intake Total 2163.2 ml Output Total 2810 ml Balance -646.8 ml RYANN TEJEDA MD Aug 19, 2021 11:35
--- NOTE | 2021-08-19 12:27 | CR ---
NEPHROLOGY CONSULTATION DATE: 08/19/2021 REQUESTING PHYSICIAN: Teto Boykin M.D. CONSULTING PHYSICIAN: John Vickers M.D. REASON FOR CONSULTATION: Oliguric renal failure in this lady with hepatic encephalopathy and COVID positive respiratory failure. HISTORY OF PRESENT ILLNESS: Miss Vidal is a 71-year-old female who was recently discharged from [facility]. She was admitted previously with hepatic encephalopathy and ascites. She developed acute renal failure which improved and creatinine was down to 1.4 at the time of discharge. She presented to the Emergency Room on August 17, just a couple of days after her previous discharge and had a tonoclonic seizure at home prior to coming to the Emergency Room. She was intubated in the Emergency Room due to altered mentation and for airway protection as the patient has seizures. She has developed oliguric renal failure due to which a nephrology consultation was requested yesterday and the patient is seen this morning in the Intensive Care Unit. She has been extubated, however still not fully alert or able to provide much information. PAST MEDICAL AND SURGICAL HISTORY: The patient's past medical and surgical history is significant for 1. Alcoholic cirrhosis with recurrent ascites. 2. Hepatic encephalopathy. 3. History of duodenal lipomas. 4. History of diverticulosis. 5. History of colon polyps. 6. History of infrarenal abdominal aortic aneurysm 2.6 cm in size. 7. History of compression fracture of T-11 to L-1. 8. History of bilateral hip osteoarthritis. 9. History of depression. 10. History of hyponatremia. 11. History of dyslipidemia. 12. Iron deficiency anemia. 13. History of depression. 14. History of acute renal failure. PAST SURGICAL HISTORY: The patient's past surgical history is significant for: 1. Cataract removal from right eye. 2. History of colonoscopy with polypectomy. FAMILY HISTORY: Mother is at age 70 due to complications of abdominal aortic aneurysm repair. No other relevant family history is available. PERSONAL AND SOCIAL HISTORY: The patient is an active chronic smoker of one pack per day. She has a history of alcohol use up until her recent admission. She denies any illicit drug use. The patient is and unemployed. MEDICATIONS: Her home medications include: 1. Buspirone 10 mg twice daily. 2. Citalopram 20 mg daily. 3. Ferrous Sulfate 325 mg daily. 4. Folic Acid one mg daily. 5. Furosemide 20 mg daily. 6. Lactulose 15 mL three times daily. 7. Midodrine 5 mg three times daily. 8. Omeprazole 40 mg daily. 9. Spironolactone 25 mg daily. 10. Thiamine 100 mg daily. ALLERGIES: The patient has no known drug allergies. MEDICATIONS: Current medications in the hospital include: 1. Ceftriaxone 2 grams every 24 hours. 2. Lactulose 30 mL three times daily. 3. Remdesivir 100 mg every 24 hours. 4. DuoNebs every 6 hours. 5. Xifaxan 550 mg twice daily. 6. Sodium Bicarbonate 650 mg three times daily. 7. Levetiracetam 250 mg every 12 hours. 8. Lorazepam 2 mg p.r.n. for agitation and anxiety. 9. Midodrine 10 mg three times daily. 10. Pantoprazole 40 mg intravenously daily. 11. Heparin 5,000 units every 8 hours. REVIEW OF SYSTEMS: Constitutional: The patient was intubated as she had a seizure at home. She has been now extubated. The patient is unable to provide any further information. She has a Soria catheter which is draining dark brownish red urine. PHYSICAL EXAMINATION: HEENT: She has a nasogastric tube in place and is receiving tube feedings. Head is atraumatic. HEENT: Her head is atraumatic. Oral mucosa is dry. NECK: Neck veins are not abnormally distended. HEART: Sounds are regular. LUNGS: Diminished breath sounds, particularly on the right side. ABDOMEN: Soft and bowel sounds are present. EXTREMITIES: Without any cyanosis or clubbing. The patient has edema on her feet. NEUROLOGICAL: She is awake but not able to communicate at present. LABORATORY DATA: Today's labs show sodium of 142, potassium 3.4, CO2 18, BUN 20 and creatinine 1.51. Yesterday her sodium was 139, potassium 3.3, CO2 17, creatinine 1.56 and lactic acid level 2.6 which has now come down to 2.1. Total protein 5.0 and albumin 2.6. WBC count is 16.5, hemoglobin 9.2 and hematocrit 27.5, platelet count 142. Yesterday she had a blood gas which showed pH of 7.39, pO2 67.6 and pco2 28.8, bicarbonate 19. Urinalysis was negative for protein and blood, only zero WBCs and one RBC were noted. PROBLEMS: 1. Oliguric acute renal failure superimposed on chronic kidney disease most likely hepatorenal problem as the patient does have a history of cirrhosis of the liver with ascites. Her serum creatinine was 1.4 at the time of recent discharge from the hospital and today her serum creatinine is 1.51 while yesterday it was 1.56. She does have some urine output now. There is no emergent indication for dialysis at present. 2. Hypokalemia most likely related to decreased oral intake and the patient has already received potassium supplement via her nasogastric tube. Electrolytes will be repeated again this afternoon. 3. Metabolic acidosis she does have some metabolic acidosis and is already on oral sodium bicarbonate 650 mg twice daily via her nasogastric tube. 4. Anemia she has chronic anemia which is stable at present and no urgent intervention is needed. 5. Hematuria most likely this is traumatic with a Soria catheter. Her initial urinalysis was completely normal on the . I do not feel that the patient has acute glomerulonephritis. 6. COVID positive test - The patient has COVID positive and Remdesivir has already been started. She has been extubated already. Thank you for involving me in the care of Miss Vidal. I will follow her along with you.
[2021-08-19] MEDS: REMDESIVIR 100 MG in NS 250 ML IV SCH (12:50)
[2021-08-19] MEDS: SODIUM CHLORIDE 0.9% INJ 10 ML SYR IV SCH (14:22)
[2021-08-19] MEDS: KCL 20MEQ IN 100ML SWI (KRUN) 20 MEQ in IV 1 EA IV SCH ×4 (14:22→15:47)
[2021-08-19] MEDS: NOREPINEPHRINE BITARTRATE 8 MG in D5W 492 ML IV SCH (18:35)
[2021-08-20] VITALS (60 sets, daily range): BP systolic 92–131; BP diastolic 52–82
[2021-08-20 05:01] LABS: BASO # 0.1 10^3/uL (0.0-0.2); BASO % 0.3 % (0.0-1.0); EOS # 0.1 10^3/uL (0.0-0.5); EOS % 0.5 % (0.0-3.0); HEMATOCRIT 27.6 % (36.0-47.0); HEMOGLOBIN 9.3 g/dl (12.0-15.5); LYMPH # 2.2 10^3/uL (1.5-5.0); MEAN CORPUSCULAR HEMOGLOBIN 29.9 pg (27.0-33.0); MEAN CORPUSCULAR HGB CONC 33.7 g/dl (32.0-36.5); MEAN CORPUSCULAR VOLUME 88.7 fl (80.0-96.0); MONO # 1.4 10^3/uL (0.0-0.8); MONO % 6.6 % (2.0-8.0); NEUTROPHILS # 17.6 10^3/uL (1.5-8.5); PLATELET COUNT, AUTOMATED 171 10^3/uL (150-450); RED BLOOD COUNT 3.11 10^6/uL (4.00-5.40); WHITE BLOOD COUNT 21.5 10^3/uL (4.0-10.0)
[2021-08-20 06:18] LABS: ALBUMIN 3.2 GM/DL (3.2-5.2); BILIRUBIN,TOTAL 1.8 MG/DL (0.2-1.0); CALCIUM LEVEL 7.8 MG/DL (8.8-10.2); CREATININE FOR GFR 1.4 MG/DL (0.55-1.30); GLOMERULAR FILTRATION RATE 39.7 (>45); MAGNESIUM LEVEL 1.6 MG/DL (1.8-2.4); PHOSPHORUS LEVEL 2.7 MG/DL (2.5-4.9); POTASSIUM SERUM 3.1 MEQ/L (3.5-5.1); TOTAL PROTEIN 5.6 GM/DL (6.4-8.2)
[2021-08-20] MEDS: HEPARIN SOD (PORCINE) 5000UNITS/ML 1ML VIAL/SYRINGE SC SCH ×3 (06:41→21:11)
[2021-08-20] MEDS ORDERED: POTASSIUM CHLORIDE 10% LIQ 20 MEQ/15 ML UDC NG ONE (08:00)
--- NOTE | 2021-08-20 08:18 | REP ---
INDICATION: INTUBATED COMPARISON: 08/19/2021 TECHNIQUE: Portable AP view of the chest FINDINGS: Nasogastric tube in satisfactory position. Diffuse bilateral opacities along with lower lobe consolidation and suspected right pleural effusion again identified and appear slightly increased from prior examination. No pneumothorax. IMPRESSION: 1. Bilateral opacities appear increased from prior examination. 2. Suspected right pleural effusion relatively unchanged. <Electronically signed by Martin Yeager > 08/20/21 0814
[2021-08-20] MEDS: LACTULOSE 20 GM/30 ML SYRUP UD PO SCH ×3 (08:54→20:05)
[2021-08-20] MEDS: MIDODRINE 5 MG TAB PO SCH ×3 (08:54→17:10)
[2021-08-20] MEDS: SODIUM BICARBONATE 100 MEQ in D5W 1,000 ML IV SCH ×2 (08:55→19:26)
[2021-08-20] MEDS: levETIRAcetam INJection 250 MG in D5W 100 ML IV SCH ×2 (08:55→20:48)
[2021-08-20] MEDS: rifAXIMin 550 MG TAB (XIFAXAN) PO SCH ×2 (08:55→20:05)
[2021-08-20] MEDS: FOLIC ACID 1 MG TAB PO SCH (09:00)
[2021-08-20] MEDS ORDERED: THIAMINE 100 MG TAB PO SCH (09:00)
--- NOTE | 2021-08-20 10:39 | IPNPDOC ---
Text Note Date of Service The patient was seen on 08/20/21. NOTE CRITICAL CARE PROGRESS NOTE: SUBJECTIVE: Patient seen and examined at bedside. There were no overnight events. Patient was extubated approximately 48 hours ago. She is afebrile and her map is 75. She is on low-dose Levophed this morning. She is 92% on 2 L/min nasal cannula. She has reduced urine output overnight. She is not currently on any other drips. All other ROS are negative except as mentioned above PHYSICAL EXAMINATION: VITAL SIGNS: Please see below. GENERAL APPEARANCE: Not in acute distress HEENT: no thyromegaly, trachea midline, PERRLA. normal mucous membranes RESPIRATORY: good air entry. Bilateral rhonchi CARDIOVASCULAR: +s1 s2, no murmurs. ABDOMEN: Distended but nontender EXTREMITIES: no edema or erythema. palpable distal pulses SKIN: no rash, no purpura NEUROLOGICAL: Alert and oriented x1, arousable and follows simple commands. Moves all extremities. Can speak in full sentences. PERTINENT LABS/IMAGING: Chest x-ray to from today shows bilateral opacities that are slightly increased. The right base has atelectasis or effusion. OG tube is satisfactory position IMPRESSION: The most critical problems requiring my immediate presence at bedside are: 1. Acute hypoxic respiratory failure intubated for airway protection resolved and extubated on 08/18/2021 2. Decompensated liver cirrhosis with hepatic encephalopathy and ascites possibly triggered by covid infection, hypokalemia and LATASHA. Mild improvement in mental status. 3. Lactic acidosis improved 4. LATASHA oliguric cant rule out hepatorenal syndrome status post albumin 5. History of liver cirrhosis with portal hypertension on diuretics and lactulose outpatient 6. Sepsis present on admission, possible aspiration pneumonia/pneumonitis 7. COVID-19 PCR positive 8. Hypotension appears chronic in the setting of liver cirrhosis PLAN: ELECTRONIC PAGINATION SYSTEM OPERATOR: Avoid ELECTRONIC PAGINATION SYSTEM OPERATOR depressants. Continue with Keppra for suspected seizures on presentation. Start thiamine and folic acid supplements. PULM: HOB 30 degrees. Maintain Sp02 92 -96 %. Titrate down FiO2 as tolerated. Chest physical therapy with percussion vest Pulmonary toilet CARDIO: Accept lower MAPs 55-60. midodrine 10 mg every 8 which is a home medication Patient is off pressors. GI: Continue with trophic tube feeds for now. Start Reglan 10 mg every 12 hours to aid in gastric emptying. Continue with lactulose to titrate 2-3 bowel movements per day. Continue with rifaximin 550 mg every 12 RENAL: Bicarb drip 100 cc/h, nephrology on board. Replete magnesium and potassium. BMP at 2 PM ID: Continue with remdesivir and continue 5-day course We will hold off on starting Decadron as I do not suspect she is having Covid pneumonia at this time and her positive Covid test is more of an incidental finding. She is on Rocephin for possible SBP. Blood cultures are negative and sputum shows normal adrianna. Will attempt paracentesis today. ENDO: Monitor FS per routine. Goal range 140-180. HEME: DVT ppx LINES/CATHETERS: Right femoral central line is clean. If remains off pressors for today will DC femoral line. Soria catheter CODE STATUS: DNR/DNI DISPOSITION: ICU. I spoke with the Sister Ms Deal who is the surrogate decision-maker. The daughter is unable to be reached. I had a long discussion regarding the goals of care with Ms. Zaidi and she brought to my attention that the patient on prior occasion has verbalized that she never wanted to be intubated or resuscitated. Patient will be a DNR/DNI. A total of 55 minutes of critical care time was spent on patient care, not including procedures VS,Fishbone, I+O VS, Fishbone, I+O Laboratory Tests 08/20/21 04:55 Vital Signs Date Time Temp Pulse Resp B/P (MAP) Pulse Ox O2 Delivery O2 Flow Rate FiO2 08/20/21 07:15 93 32 105/60 (75) 92 Nasal Cannula 2.0 08/20/21 06:28 98.5 08/18/21 15:45 28 I&O- Last 24 Hours up to 6 AM 08/20/21 06:00 Intake Total 1435.0 ml Output Total 2090 ml Balance -655.0 ml RYANN TEJEDA MD Aug 20, 2021 10:39
[2021-08-20] MEDS: cefTRIAXone SOD 2 GM in D5W MINI-BAG PLUS 50 ML IV SCH (10:51)
[2021-08-20] MEDS: METOCLOPRAMIDE INJ 10MG/2ML VIAL (J2765 PER 1) IV SCH ×2 (10:52→22:08)
[2021-08-20] MEDS ORDERED: MAG SULF 1GM/100ML (MAG RUN) 1 GM in IV 1 EA IV SCH (11:00)
[2021-08-20] MEDS: NOREPINEPHRINE BITARTRATE 8 MG in D5W 492 ML IV SCH (11:00)
[2021-08-20] MEDS ORDERED: MAGNESIUM SULFATE 1 GM/100 ML IV ONE (12:00)
--- NOTE | 2021-08-20 12:20 | IPN ---
PROGRESS NOTE DATE: 08/20/2021 SUBJECTIVE: Ms. Vidal is seen this morning in the Intensive Care Unit. The nursing staff reports that she is more responsive and alert. Her diarrhea continues, however she also had 500 ml of urine output yesterday. Patient herself remains minimally communicative. OBJECTIVE: VITAL SIGNS: Temperature is 98.5 degrees Fahrenheit, heart rate is 92 per minute and respiratory rate is 32 per minute. Blood pressure is 105/60 mmHg and oxygen saturation 92% on 2 liters of oxygen. INTAKE AND OUTPUT: Intake and output records from yesterday showed a total intake of 1500 and output 3000 out of which 2500 ml was stool and only 520 ml of urine. GENERAL: Overall physical examination remains essentially unchanged. She is pale and not in any acute distress at present. HEART: Heart sounds are tachycardic. LUNGS: Diminished breath sounds. ABDOMEN: Soft and distended with ascites. EXTREMITIES: Without any cyanosis or clubbing. Mild edema on the legs is noticed. LABORATORY DATA: Today's labs showed a WBC count of 21.5, hemoglobin 9.3 and hematocrit 27.6. Sodium is 144, potassium is 3.1, CO2 16, BUN 18 and creatinine is 1.4. Glucose is 121 and calcium is 7.8. Total protein is 5.6 and albumin is 3.2. PROBLEMS: 1. Acute kidney injury superimposed on chronic kidney disease. Patient does have some improvement in kidney function over the last 24 hours. At the time of her last discharge from the hospital her serum creatinine was 1.4. She does have adequate urine output despite large amount of liquid stool. 2. Metabolic acidosis related to diarrhea and acute kidney injury. Patient is being started on IV sodium bicarbonate drip. Oral sodium bicarbonate is being stopped. 3. Hypokalemia related to ongoing diarrhea. She is being given liquid potassium chloride 40 mEq via her NG-tube. I will give another dose this afternoon and recheck her electrolytes tomorrow. 4. Anemia, at present her anemia is stable and does not need any urgent intervention. 5. Diarrhea. Her GI panel has been reported negative for any infective organisms. 6. COVID-19. Patient remains with slight symptoms, probably her GI symptoms are also related to COVID.
--- NOTE | 2021-08-20 12:35 | ROOPDOC ---
[facility] Report Of Operation Report of Operation INDICATION: Rule out spontaneous bacterial peritonitis PROCEDURE: Left lower quadrant paracentesis PROCEDURE CHILD NUTRITION DIRECTOR: Dr Boykin CONSENT: Verbal consent was obtained prior to the procedure by patient's sister Ms. Zaidi. Patient daughter was unable to be reached. Indications, risks, and benefits were explained at length. PROCEDURE SUMMARY: A time-out was performed. My hands were washed immediately prior to the proced ure. I wore a surgical cap, mask with protective eyewear, sterile gown and sterile gloves throughout the procedure. The area was cleansed and draped in usual sterile fashion using chlorhexidine scrub. Anesthesia was achieved with 1% lidocaine. Ultrasound guidance was used to localize the most appropriate pocket of fluid. The left lower quadrant prepped and draped in a sterile fashion using chlorhexidine scrub. 1% lidocaine was used to numb the skin, soft tissue and peritoneum. A 22-gauge needle with syringe was used to aspirate approximately 10 cc of ascitic fluid and was collected and sent for laboratory analysis. A bandaid was placed over the puncture wound. The patient tolerated the procedure well without any immediate complications. Estimated blood loss was 0 cc. RYANN BOYKIN MD Aug 20, 2021 12:35
[2021-08-20 12:43] LABS: APPEARANCE, BODY FLUID CLOTTED (CLEAR); PERITONEAL FL COLOR YELLOW (COLORLESS); SOURCE, BODY FLUID PERITONEAL
[2021-08-20] MEDS: SODIUM CHLORIDE HYPERTONIC 3% 15ML NEB SOL INH SCH ×3 (12:47→19:40)
[2021-08-20] MEDS: ALBUTEROL SULFATE 2.5 MG/0.5 ML INH NEB SOLN NEB SCH ×3 (12:47→19:40)
[2021-08-20] MEDS: SODIUM CHLORIDE 0.9% INJ 10 ML SYR IV SCH (14:00)
[2021-08-20] MEDS ORDERED: POTASSIUM CHLORIDE 10% LIQ 20 MEQ/15 ML UDC PO ONE (14:00)
[2021-08-20] MEDS: THIAMINE 200MG 2ML VIAL IV SCH (14:06)
[2021-08-20] MEDS: REMDESIVIR 100 MG in NS 250 ML IV SCH (14:06)
[2021-08-20 14:52] LABS: CALCIUM LEVEL 7.8 MG/DL (8.8-10.2); CREATININE FOR GFR 1.43 MG/DL (0.55-1.30); GLOMERULAR FILTRATION RATE 38.7 (>45); POTASSIUM SERUM 3.4 MEQ/L (3.5-5.1)
[2021-08-20 17:07] LABS: BODY FLUID CULTURE Not indicated. (.); LEGIONELLA ANTIGEN URINE Negative (Negative); ORGANISM ID Not indicated. (.); SPECIMEN SOURCE Urine (.); URINE STREP PNEUMONIAE ANTIGEN Negative (Negative)
[2021-08-20] MEDS: KCL 20MEQ IN 100ML SWI (KRUN) 20 MEQ in IV 1 EA IV SCH ×4 (18:00→19:46)
[2021-08-20] MEDS ORDERED: MICONAZOLE-7 VAGINAL 2% CREAM 47.7GM PV SCH (21:00)
[2021-08-21] VITALS: BP 102/55
[2021-08-21] MEDS: SODIUM CHLORIDE HYPERTONIC 3% 15ML NEB SOL INH SCH ×4 (00:01→10:42)
[2021-08-21] MEDS: ALBUTEROL SULFATE 2.5 MG/0.5 ML INH NEB SOLN NEB SCH ×4 (00:01→10:41)
[2021-08-21 02:00] VITALS: BP 111/51
[2021-08-21 04:00] VITALS: BP 109/51
[2021-08-21 04:27] LABS: BASO # 0.1 10^3/uL (0.0-0.2); BASO % 0.2 % (0.0-1.0); EOS # 0.1 10^3/uL (0.0-0.5); EOS % 0.3 % (0.0-3.0); HEMATOCRIT 24.7 % (36.0-47.0); HEMOGLOBIN 8.5 g/dl (12.0-15.5); LYMPH # 2.2 10^3/uL (1.5-5.0); LYMPH % 10.2 % (24.0-44.0); MEAN CORPUSCULAR HGB CONC 34.4 g/dl (32.0-36.5); MEAN CORPUSCULAR VOLUME 87.3 fl (80.0-96.0); MONO # 1.2 10^3/uL (0.0-0.8); MONO % 5.7 % (2.0-8.0); PLATELET COUNT, AUTOMATED 147 10^3/uL (150-450); RED BLOOD COUNT 2.83 10^6/uL (4.00-5.40); WHITE BLOOD COUNT 21.7 10^3/uL (4.0-10.0)
[2021-08-21 05:10] LABS: ALBUMIN 2.7 GM/DL (3.2-5.2); BILIRUBIN,TOTAL 1.5 MG/DL (0.2-1.0); CALCIUM LEVEL 7.7 MG/DL (8.8-10.2); CREATININE FOR GFR 1.56 MG/DL (0.55-1.30); MAGNESIUM LEVEL 1.6 MG/DL (1.8-2.4); PHOSPHORUS LEVEL 1.2 MG/DL (2.5-4.9); POTASSIUM SERUM 3.3 MEQ/L (3.5-5.1); TOTAL PROTEIN 5.4 GM/DL (6.4-8.2)
[2021-08-21] MEDS: SODIUM BICARBONATE 100 MEQ in D5W 1,000 ML IV SCH (05:19)
[2021-08-21] MEDS: HEPARIN SOD (PORCINE) 5000UNITS/ML 1ML VIAL/SYRINGE SC SCH (05:20)
[2021-08-21 06:00] VITALS: BP 99/54
--- NOTE | 2021-08-21 08:32 | REP ---
INDICATION: INTUBATED COMPARISON: 08/20/2021 TECHNIQUE: Portable AP view of the chest FINDINGS: Nasogastric tube in stable satisfactory position. Mediastinum and cardiac silhouette are stable. Current examination demonstrates increased lung volumes and diffuse bilateral opacities are again noted and similar to prior examination. No obvious effusion or pneumothorax. IMPRESSION: Increased lung volumes. Diffuse bilateral opacities similar to prior examination. <Electronically signed by Martin Yeager > 08/21/21 0813
[2021-08-21] MEDS: MIDODRINE 5 MG TAB PO SCH ×2 (08:38→12:37)
[2021-08-21] MEDS: FOLIC ACID 1 MG TAB PO SCH (08:39)
[2021-08-21] MEDS: rifAXIMin 550 MG TAB (XIFAXAN) PO SCH (08:39)
[2021-08-21] MEDS: THIAMINE 200MG 2ML VIAL IV SCH (08:39)
[2021-08-21] MEDS: LACTULOSE 20 GM/30 ML SYRUP UD PO SCH (08:39)
[2021-08-21] MEDS: levETIRAcetam INJection 250 MG in D5W 100 ML IV SCH (08:40)
[2021-08-21] MEDS: NOREPINEPHRINE BITARTRATE 8 MG in D5W 492 ML IV SCH (09:14)
[2021-08-21] MEDS: KCL 20MEQ IN 100ML SWI (KRUN) 20 MEQ in IV 1 EA IV SCH ×4 (09:31→11:13)
[2021-08-21] MEDS ORDERED: MAGNESIUM OXIDE 400MG TAB (MAG-OX) NG ONE (10:00)
[2021-08-21] MEDS: cefTRIAXone SOD 2 GM in D5W MINI-BAG PLUS 50 ML IV SCH (10:36)
[2021-08-21] MEDS: METOCLOPRAMIDE INJ 10MG/2ML VIAL (J2765 PER 1) IV SCH (11:11)
[2021-08-21] MEDS ORDERED: methylPREDNISolone 125MG 2ML VIAL IV SCH (12:00)
[2021-08-21] MEDS ORDERED: POTASSIUM PHOSPHATE INJ 30 MMOL in D5W 500 ML IV ONE (12:00)
--- NOTE | 2021-08-21 12:04 | IPNPDOC ---
Date Seen The patient was seen on 08/21/21. Progress Note SUBJECTIVE: Hilary is a 71-year-old female with notable past medical history of alcoholic liver cirrhosis with hepatic encephalopathy/recurrent ascites/portal hypertension/still actively consumed alcohol, abdominal aortic aneurysm, anemia, active smoker, and multiple recent hospitalizations who presented to the [facility] ED for altered mental status. She was brought in by ambulance after reportedly experiencing a tonic-clonic seizure at home. Initial ABG showed metabolic acidosis and patient was found to be Covid positive on 08/16/21. She was subsequently intubated in the setting of seizure-like activity with decreased responsiveness and metabolic acidosis. In addition, she had sepsis upon admission with accompanying lactic acidosis and acute renal failure. On 08/18, she remained intubated on a Versed drip in the nephrology service was consulted, subsequently initiating both bicarb and albumin administrations. Later on 08/18, the patient was extubated to 2 L nasal cannula. On 08/19, patient was started on midodrine for hypotension, continued on the bicarb drip with nephrology, and was started on Rocephin for possible SBP coverage as peritoneal fluid drawing was clotted and could not be correctly studied. Remdesivir was started and then due to some wheezing on examination, steroids were started in the form of Solu-Medrol. Also on 08/20, she was started on folic acid and t hiamine as well as a bicarb drip. Upon handoff to the hospital service from the band leader, patient was tachycardic, with softer pressures, and saturating in the low 90s on 2 L nasal cannula. A repeat chest x-ray on 08/21 showed increased lung volume with diffuse bilateral opacities similar to the prior study. Patient was also on Keppra I/S/O recent seizure activity. Hilary was seen and examined this morning (08/21/21) upon stepdown to the hospitalist service. She was quite unsettled, moving around consistently in the bed during our examination and speaking incoherently. She was not oriented at all and was displaying excessive muscle use with respirations. Due to patient's disorientation and restlessness, it was quite difficult to undertake much of a interval history, review of systems, or thorough physical examination. OBJECTIVE PHYSICAL EXAMINATION: VITAL SIGNS: Please see below. GENERAL: Disoriented and restless white female lying on her right side in bed when we entered the room. Rolling back and forth intermittently and resisting aspects of the exam. She is awake and continuously speaking incoherently and is not oriented at all. HEENT: Head appears normocephalic. She would not sit still during our exam therefore is difficult to test for pupillary reaction accommodation Oral cavity: Mucous membranes are dry with significant amount of dried crusted blood overlying the lips and distal end of the tongue. Her lips are significantly chapped. CARDIOVASCULAR: Due to patient's restlessness and ambient breathing noises extremely difficult to appreciate for any significant murmurs or rubs. On telemetry, she is in sinus tachycardia. RESPIRATORY: There are crackles of the dependent lung base with minimal air entry of the upper lobes. There is visualized accessory muscle use, particular in the form of abdominal breathing. She is tachypneic breathing at a rate b etween approximately 24 to 28 breaths/min. ABDOMINAL: Obese. No fluid thrill was appreciated. It seems as though there are loculations of fluid buildup throughout the abdomen but no diffuse generali zed ascites appreciated. EXTREMITIES: There remains a femoral line present in the left femoral vein with some visualized blood at the insertion point. There is palpable left pedal edema. Patient is wearing teds and sequentials. Genitourinary: Rectal tube and Soria catheter remain in place. Skin: Gluteal skin is raw and erythematous surrounding rectal tube. Diffuse scattered ecchymosis areas over the abdomen. NEUROLOGICAL: She is speaking incoherently consistently throughout the examination. She is restless and not responding to any questions or commands and is not oriented even to name. LABORATORY DATA, IMAGING STUDIES, MICROBIOLOGY: Please see below. ASSESSMENT AND PLAN: This is a 71yo female w/ notable h/o alcoholic liver cirrhosis and still active smoker/hepatic encephalopathy/recurrent ascites/portal hypertension, AAA, chronic anemia, active smoker, and recent multiple hospitalizations who presented initially on the evening of 08/16 due to altered mental status with reported tonic-clonic seizure at home. She was intubated due to metabolic acidosis and unresponsiveness and was incidentally found to be Covid positive. She was extubated late on 08/18 and was being managed by the band leader/pulmonary service until 08/21, at which point the hospitalist service took over. After initial hospitalist evaluation, the patient's mortality risk was deemed to be significant and a long collaborative discussion was held with the patient's daughter at which point, the patient was switched to comfort measures only. #Comfort measures only In the setting of her overt hepatic encephalopathy (likely grade 3) with hepatorenal syndrome, acute renal failure superimposed on CKD with oliguria, and with patient being a poor surgical candidate as well as not eligible for any type of liver transplant list due to her active alcohol use, an extensive conversation was held among the hospitalist team and the patient's healthcare proxy, her sister Andra Zaidi ([phone]). At the conclusion of our discussion with the patient sister, the decision was made to switch the patient to comfort measures only. MOLST form paperwork was completed to indicate this decision and all active medications were discontinued in favor of comfort providing pharmacotherapy only. A hospice consultation was also placed as well and Daisy OVALLE was made aware. #Hepatic encephalopathy, overt likely grade 3 #Oliguria in the setting of hepatorenal syndrome/acute renal failure on CKD #High suspicion for acute alcohol withdrawal delirium tremens #Hypotension CODE STATUS: DNR/DNI and comfort measures only Disposition: As discussed above, patient was switched over to comfort measures only upon instruction by her healthcare proxy (her sister Andra). Transfer to [facility] and out of the [facility] ICU was placed. Hospice consultation was also made. VS, I&O, 24H, Fishbone Vital Signs/I&O Vital Signs Date Time Temp Pulse Resp B/P (MAP) Pulse Ox O2 Delivery O2 Flow Rate FiO2 08/21/21 09:14 97.6 110 26 99/54 93 Nasal Cannula 2.0 28 I&O- Last 24 Hours up to 6 AM 08/21/21 06:00 Intake Total 3164.5 ml Output Total 1920 ml Balance 1244.5 ml Laboratory Data 24H LABS Laboratory Tests 2 08/20/21 11:55: Body Fluid WBC (Auto) , Body Fluid RBC (Auto) , Peritoneal Fluid Source PERITONEAL, Peritoneal Fluid Color YELLOW, Peritoneal Fluid Appearance CLOTTED 08/20/21 13:30: Bedside Glucose (Misc Panel) 160H 08/20/21 13:52: Anion Gap 9, Glomerular Filtration Rate 38.7L, Calcium Level 7.8L 08/20/21 17:31: Bedside Glucose (Misc Panel) 139H 08/21/21 04:00: Immature Granulocyte % (Auto) 0.6, Neutrophils (%) (Auto) 83.0H, Lymphocytes (%) (Auto) 10.2L, Monocytes (%) (Auto) 5.7, Eosinophils (%) (Auto) 0.3, Basophils (%) (Auto) 0.2, Neutrophils # (Auto) 18.0H, Lymphocytes # (Auto) 2.2, Monocytes # (Auto) 1.2H, Eosinophils # (Auto) 0.1, Basophils # (Auto) 0.1, Nucleated Red Blood Cells % (auto) 0.0, Anion Gap 11, Glomerular Filtration Rate 35.0L, Calciu m Level 7.7L, Phosphorus Level 1.2#L, Magnesium Level 1.6L, Total Bilirubin 1.5H, Aspartate Amino Transf (AST/SGOT) 38H, Alanine Aminotransferase (ALT/SGPT) 30, Alkaline Phosphatase 180H, Total Protein 5.4L, Albumin 2.7L, Albumin/Globulin Ratio 1.0L CBC/BMP Laboratory Tests 08/20/21 13:52 08/21/21 04:00 Microbiology Microbiology 08/20/21 Gram Stain - Final, Resulted 08/20/21 Body Fluid Culture, Resulted Pending 08/19/21 Gastrointestinal Tract Panel (PCR) - Final, Complete 08/17/21 Gram Stain - Final, Complete 08/17/21 Sputum Culture - Final, Complete Yeast Like Organism 08/17/21 Blood Culture - Preliminary, Resulted No Growth after 72 hours. All specime... 08/16/21 Blood Culture - Preliminary, Resulted No Growth after 72 hours. All specime... GME ATTESTATION GME ATTESTATION My faculty preceptor for this patient encounter was physically present during the encounter and was fully available. All aspects of the patient interview, examination, medical decision making process, and medical care plan development were reviewed and approved by the faculty preceptor. The faculty preceptor is aware and concurs with the plan as stated in the body of this note and will attest to such by his/her cosignature. JOE DOMINGUEZ D.O. Aug 21, 2021 12:04
[2021-08-21] MEDS ORDERED: LORazepam 2 MG/ML VIAL IV PRN ×2 (12:30→13:40)
[2021-08-21] MEDS ORDERED: ATROPINE SULFATE 1% OP SOLN 2 ML BTL SL PRN (12:45)
[2021-08-21] MEDS ORDERED: FLEET ENEMA PR PRN (12:45)
[2021-08-21] MEDS ORDERED: ONDANSETRON 4 MG ORAL DISINTEGRATING TAB PO PRN (12:45)
[2021-08-21] MEDS ORDERED: BISACODYL 10 MG SUPP PR PRN (12:45)
[2021-08-21] MEDS ORDERED: LORazepam 1 MG TAB PO PRN (12:45)
[2021-08-21] MEDS ORDERED: ACETAMINOPHEN TAB 650MG DOSE (2X325MG) PO PRN (12:45)
[2021-08-21] MEDS ORDERED: SCOPOLAMINE 1MG TRANSDERMAL PATCH TOP PRN (12:45)
[2021-08-21] MEDS ORDERED: MORPHINE 10MG/0.5ML ORAL CONCENTRATE SOLUTION U/D SL PRN (12:45)
--- NOTE | 2021-08-21 13:09 | IPN ---
PROGRESS NOTE DATE: 08/21/2021 SUBJECTIVE: Ms. Vidal is seen this morning on her bedside in the Intensive Care Unit. She remains very confused and disoriented. She is unable to communicate. OBJECTIVE: VITAL SIGNS: Temperature 97.6 degrees Fahrenheit, heart rate is 110 per minute and respiratory rate is 26 per minute. Blood pressure is 99/54 mmHg and oxygen saturation 93% on 2 liters of oxygen. GENERAL: She looks pale and jaundiced. HEAD: Atraumatic. Oral mucosa is dry. NECK: Neck veins are not abnormally distended. HEART: Heart sounds are tachycardic. LUNGS: Slightly diminished breath sounds at the bases. ABDOMEN: Distended with ascites and bowel sounds are present. EXTREMITIES: Without any cyanosis or clubbing. She does have edema on her thighs. NEUROLOGIC: She is confused, disoriented and unable to communicate. LABORATORY DATA: Today's labs shows a sodium of 145, potassium is 3.3, chloride is 115, CO2 is 19, BUN 18 and creatinine is 1.56. Glucose is 155 and calcium is 7.7. Phosphorus is 1.2, magnesium is 1.6, total bilirubin is 1.5, total protein 5.4 and albumin is 2.7. PROBLEMS: 1. Acute kidney injury superimposed on chronic kidney disease. Her best serum creatinine has been about 1.4 mg/dl during this admission and during her prior admission, probably 1.4 is her baseline. Today, kidney function is slightly worse. I would recommend to continue with IV fluid as the patient has no oral intake. 2. Metabolic acidosis, her acidosis is slightly better and she remains on a sodium bicarbonate drip at 100 ml/hr. 3. Hypokalemia, the potassium level is still slightly low. She is already receiving an intravenous potassium run which is appropriate. She can probably also receive potassium chloride liquid via her nasogastric tube. 4. Anemia, her anemia is slightly worse, however no urgent need for transfusion at present. 5. Altered mentation. She remains confused and disoriented. Probably this is a combination of hepatic encephalopathy in addition to her other problems. I do not feel that she has any uremic component in her altered mentation. 6. Hypotension, blood pressure remains low and she continues with Midodrine 10 mg t.i.d. She will also continue with IV fluid at 100 ml/hr. Currently, she is not on any pressors. 7. COVID-19. Patient remains on Remdesivir and steroids. 8. DNR status. Patient has a DNR and her prognosis seems to be guarded in view of multiorgan problems.
[2021-08-21] MEDS ORDERED: ONDANSETRON 4MG/2ML VIAL IV PRN (13:40)
[2021-08-21] MEDS ORDERED: MORPHINE 2 MG/ML 1ML VIAL (J2270) IV PRN (13:40)
[2021-08-22] MEDS ORDERED: cefTRIAXone SOD 1 GM in D5W MINI-BAG PLUS 50 ML IV SCH (10:00)
--- NOTE | 2021-08-22 13:26 | DS.PDOC ---
Discharge Summary General Date of Admission Aug 17, 2021 at 00:06 Date of Discharge 08/21/21 Discharge Summary summary Admitting diagnosis Seizure episode Hepatic encephalopathy Decompensated liver cirrhosis Anemia Acute hypoxic respiratory failure SBP Discharge diagnosis Acute hypoxic respiratory failure secondary to fluid overload Hepatic and encephalopathy grade 3/grade 4 Hepatorenal syndrome with acute renal failure Oliguria Anemia Possible seizure disorder Hospital course This is a 71-year-old female with past medical history of history of alcoholic liver cirrhosis with hepatic encephalopathy recurrent ascites possibly active alcohol consumer, active smoker with multiple recent hospitalizations for hepatic encephalopathy was admitted to the hospital on August 14 under [facility] where she was found to have possible seizures and because of not being able to protect her airways she was intubated and was followed up by ICU. The patient was also seen by nephrology because of her oliguria/anuria and possibility of hepatorenal syndrome. The patient was treated for hepatorenal with albumin holding the nephrotoxic drugs and input output monitoring. The patient was eventually extubated and her hepatic enthesopathy was empirically treated as possible SBP with Rocephin and she was continued on her lactulose with a rectal tube in place. She also had a femoral line in place which was placed on the day of admission. She was started on minimal pressors for a brief period of time to maintain the maps and renal perfusion. On the day she was stepdown from ICU to the medical floors the patient on my encounter was having a respiratory rate in 30s to 40s. She was using accessory muscles to breathe her heart rate was in 140s to 150s. And she was saturating around 76-84. The patient was very ill appearing. Her heart rate was regular but she was tachycardic, the lung examination was apparent for rails on the dependent areas of the lung. No fluid thrill was noticed and there was possibly loculation of ascites. The femoral line was in place which had a bloody dressing altogether. The patient was very sick and on our initial encounter and the chart review with our physical examination it seemed that the patient would have required intubation if she would not have been DNR/DNI. Given her liver failure/cirrhosis, hepatorenal failure with anuria as she was only making less than 500 cc of urine per day and cardiovascular collapse with hypotension and severe tachycardia it was discussed with the family that the outcome and progn osis is poor and eventually the patient was made hospice comfort care only. The patient on 08/21/2021 Vital Signs/I&Os Vital Signs Date Time Temp Pulse Resp B/P (MAP) Pulse Ox O2 Delivery O2 Flow Rate FiO2 08/21/21 09:14 97.6 110 26 99/54 93 Nasal Cannula 2.0 28 I&O- Last 24 Hours up to 6 AM 08/22/21 05:59 Intake Total 1802.5 ml Output Total 225 ml Balance 1577.5 ml Laboratory Data Labs 24H Laboratory Tests 2 08/22/21 10:20: Lab Scanned Report Transfusion Record Microbiology Microbiology 08/20/21 Gram Stain - Final, Complete 08/20/21 Body Fluid Culture - Final, Complete 08/19/21 Gastrointestinal Tract Panel (PCR) - Final, Complete 08/17/21 Gram Stain - Final, Complete 08/17/21 Sputum Culture - Final, Complete Yeast Like Organism 08/17/21 Blood Culture - Final, Complete NO GROWTH AFTER 5 DAYS 08/16/21 Blood Culture - Final, Complete NO GROWTH AFTER 5 DAYS Discharge Medications Scheduled Buspirone HCl (Buspirone HCl) 10 Mg Tablet, 10 MG PO BID, (Reported) Citalopram Hydrobromide (Citalopram HBr) 20 Mg Tablet, 20 MG PO DAILY, (Reported) Ferrous Sulfate (Ferrous Sulfate) 325 Mg Tablet, 325 MG PO DAILY, (Reported) Folic Acid (Folic Acid) 1 Mg Tablet, 1 MG PO DAILY, (Reported) Furosemide (Furosemide) 20 Mg Tablet, 20 MG PO DAILY, (Reported) Lactulose (Lactulose) 10 Gm/15 Ml Solution, 15 ML PO TID, (Reported) Midodrine HCl (Midodrine HCl) 5 Mg Tablet, 10 MG PO TID, (Reported) 0800, 1200, 1600 Nicotine (Nicotine Patch) 21 Mg Patch.td24, 21 MG TD DAILY, (Reported) Omeprazole (Omeprazole) 40 Mg Capsule.dr, 40 MG PO DAILY, (Reported) Spironolactone (Spironolactone) 25 Mg Tablet, 25 MG PO DAILY, (Reported) Thiamine HCl (Vitamin B-1) 100 Mg Tablet, 100 MG PO DAILY, (Reported) Scheduled PRN Zinc Oxide (Boudreauxs) 16% Oint...g., 1 DOSE TOP Q2H PRN for REDNESS/IRRITATION, (Reported) APPLY TO [facility] Miscellaneous Medications [Patient Comment] , (Reported) MED REC COMPLETED VIA PREVIOUS DISCHARGE PAPERWORK (08/15/21) Allergies Coded Allergies: No Known Allergies (Unverified , 07/14/21) RAJEEV TREJO MD Aug 22, 2021 13:26
== END 2021-08-21 15:52 | disposition expired | DRG 871 ==
LOC: M ED 18:24 → M ED INP 08-17 00:06 → ENRESERV 08-17 01:18 → M ICU 08-17 02:00
PROVIDERS: ADMIT Internal Medicine Pulmonary Disease; ATTEND Internal Medicine
PROC: 5A1945Z Respiratory Ventilation, 24-96 Consecutive Hours (ICD-10-PCS; principal; 2021-08-17)
DX: A41.9 Sepsis, unspecified organism (principal); U07.1 COVID-19; J96.01 Acute respiratory failure with hypoxia; K76.7 Hepatorenal syndrome; K65.2 Spontaneous bacterial peritonitis; J18.9 Pneumonia, unspecified organism; E87.2 Acidosis; N17.9 Acute kidney failure, unspecified; F10.231 Alcohol dependence with withdrawal delirium; K76.6 Portal hypertension; G40.409 Other generalized epilepsy and epileptic syndromes, not intractable, without status epilepticus; K70.30 Alcoholic cirrhosis of liver without ascites; K70.40 Alcoholic hepatic failure without coma; I71.4 Abdominal aortic aneurysm, without rupture; Z98.41 Cataract extraction status, right eye; F17.200 Nicotine dependence, unspecified, uncomplicated; Z79.899 Other long term (current) drug therapy